=== PATIENT | male | born 1945 | race Caucasian/White ===

== ENCOUNTER 2016-10-18 15:52 | Inpatient (IN) | payer OTHER, MEDICARE ==
[~2016-10-18] VITALS: Ht 175.3 cm; Wt 80.3 kg
[~2016-10-18 15:52] MED LIST: ACEPHEN325 MG PR; ARGINAID; ARTIFICIAL TEAR15 M2 OP; AUGMENTIN 875875 MG PO; BISAC-EVAC10 MG PR; CHILDREN'S ASPI81 M1 PO; CIPRO 500MG TA500 MG PO; CLONAZEPAM0.5 MG PO; CRESTOR20 MG PO; DULERA1 ARO INH; FISH OIL500 MG PO; FLEET ENEMA 131 UNIT RC; FLUTICASON0.05 MG/Ac NASB; IPRATROPIUM BRO NEB; KLONOPIN0.5 MG PO; LASIX20 MG PO; LIORESAL 10MG T10 MG PO; LOPRESSOR 25MG25 MG PO; MAPAP325 MG PO; MELATONIN5 M1 PO; METFORMIN HCL500 MG PO; METFORMIN1000 MG PO; MILK OF MAGNESI30 ML PO; MULTIVITAMIN1 TAB PO; NORVASC 5MG TAB5 MG PO; NOVOLOG100 U/ML SC; OMEPRAZOLE40 MG PO; PERCOCET 325 MG1 TA3 PO; PPD ID; PRILOSEC 20MG C20 MG PO; PRO-STAT 101 3030 M1 PO; Q-TUSSIN100 MG/5 M PO; ROCEPHIN2000 MG IV; SANTYL250 U/GM TOP; SENNA CON/DOCUS1 TAB PO; VANCOMYCIN HC1000 MG IV; VITAMIN B121000 MC2 PO; XANAX0.5 MG PO; ZOFRAN 4 MG TABL4 MG PO; [UNRECOGNIZED DRUG - OTHER] TOP
--- NOTE | 2016-10-18 16:10 | NUR ---
PT IS ALERT AND ORIENTED
--- NOTE | 2016-10-18 16:10 | NUR ---
PT BIBA FROM [place] FOR LOW GRADE FEVERS, CHILLS, NAUSEA WITH DRY HEAVING FOR 3-4 DAYS. PT STATES HE FEELS FINE NOW, STATES HE HAS NO SENSATION BELOW HIS CHEST DUE TO A SPINAL STROKE 3 YEATS PRIOR S/P AAA REPAIR. PT HAS AN INDWELLING CATHERTER THAT HAS HAD INFECTIONS IN THE PAST. PT HAS A NON HEALING 4 WEEK OLD SACRAL ULCER THAT HAS BEEN INFECTED WITH MRSA
[2016-10-18 16:40] LABS: ABSOLUTE BASOPHIL COUNT 0 /CUMM (0.0-0.2); ABSOLUTE EOSINOPHIL COUNT 0 /CUMM (0.0-0.7); ABSOLUTE GRANULOCYTE CT 17.3 /CUMM (1.4-6.5); ABSOLUTE LYMPH COUNT 0.9 /CUMM (1.2-3.4); ABSOLUTE MONOCYTE COUNT 1.7 /CUMM (0.10-0.60); BASOPHIL % 0.2 % (0.0-2.0); EOSINOPHIL % 0.2 % (0-5); GRANULOCYTE % 86.4 % (42.2-75.2); HEMATOCRIT 30.4 % (42-52); MEAN CORPUSCULAR HGB 27.8 PG (27.0-31.0); MEAN CORPUSCULAR HGB CONC 32.3 G/DL (33.0-37.0); MEAN PLATELET VOLUME 7.1 FL (7.4-10.4); PLATELET COUNT 533 /CUMM (130-400); RBC DISTRIBUTION WIDTH 17.4 % (11.5-14.5); RED BLOOD CELL CT 3.54 /CUMM (4.70-6.10)
--- NOTE | 2016-10-18 16:42 | ED GENERAL ADULT ---
History of Present Illness General Chief Complaint: General Adult Stated Complaint: CHILLS, FEVERS Source: patient Exam Limitations: no limitations Vital Signs & Intake/Output Vital Signs & Intake/Output Vital Signs Date Time Temp Pulse Resp B/P Pulse O2 O2 Flow FiO2 Ox Delivery Rate 10/18 1849 91 Nasal 2.0L Cannula 10/18 1844 99.5 109 18 135/69 92 Nasal 2.0L Cannula 10/18 1607 97.8 90 18 118/78 98 Room Air Room Air Allergies Coded Allergies: NO KNOWN ALLERGIES (10/18/16) Reconcile Medications Acetaminophen (Acephen) 650 MG SUPP.RECT 1 SUPP OR Q4H PRN PAIN/TEMP>/100 ( Reported) Acetaminophen 325 MG CAPSULE 2 CAP PO Q4H PRN PAIN/TEMP>/100 (Reported) Alprazolam 0.5 MG TABLET 1 TAB PO Q8H PRN ANXIETY (Reported) Aspirin (Children's Aspirin) 81 MG TAB.CHEW 1 TAB PO DAILY HEART HEALTH ( Reported) Baclofen (Lioresal) 10 MG TABLET 1 TAB PO QAM MUSCLE RELAXER (Reported) Bisacodyl 10 MG SUPP.RECT 1 SUP RC PRN CONSTIPATION (Reported) Calcium Carbonate (Calcium) 500 MG CALCIUM (1,250 MG) TAB.CHEW 2 TAB PO Q8H PRN GI DISCOMFORT (Reported) Clonazepam (Klonopin) 0.5 MG TABLET 1 TAB PO QPM SLEEP (Reported) Cyanocobalamin (Vitamin B12) 1,000 MCG TAB 1 TAB PO QAM SUPPLEMENT (Reported) Dextran 70/Hypromellose (Artificial Tears) 1 EACH DROPERETTE 1 DROP OP TID PRN BOTH EYES (Reported) Fluticasone Propionate (Flonase Allergy Relief) 50 MCG/ACTUATION SPRAY.SUSP 2 SPRAY NASB DAILY PRN NASAL CONGESTION (Reported) Furosemide (Lasix) 20 MG TABLET 1 TAB PO EOD DIURETIC (Reported) Guaifenesin (Q-Tussin) 100 MG/5 ML LIQUID 10 ML PO Q4H PRN COUGH (Reported) Insulin Aspart, Recombinant (Novolog) 100 U/ML DARRON 0 UNITS SC AD GLUCOSE CONTROL (Reported) BLOOD SUGAR # OF UNITS < 80 NONE 80-150 NONE 151-200 4 UNITS 201-250 6 UNITS 251-300 8 UNITS 301-350 10 UNITS 351-400 12 UNITS >400 14 UNITS and call Magnesium Hydroxide (Milk Of Magnesia) 400 MG/5 ML ORAL.SUSP 30 ML PO DAILY PRN CONSTIPATION (Reported) Melatonin 5 MG TAB.SUBL 1 TAB PO QHS SLEEP (Reported) METFORMIN HCL (Metformin) 1,000 MG TABLET 1 TAB PO BID DIABETES (Reported) Metoprolol Tartrate (Lopressor) 25 MG TABLET 1 TAB PO BID BP/HEART (Reported) MOMETASONE/FORMOTEROL (Dulera 100 Mcg/5 Mcg Inhaler) 100 MCG-5 MCG/ACTUATION HFA.AER.AD 2 PUF INH BID UNKNOWN (Reported) Multivitamin (Multiple Vitamins) 1 EACH TABLET 1 TAB PO QAM SUPPLEMENT ( Reported) Na Phos,M-B/Na Phos,Di-Ba (Fleet Enema) 19 GRAM-7 GRAM/118 ML ENEMA 1 E RC DAILY PRN CONSTIPATION (Reported) [place]-3 Fatty Acids ([place]-3) 1,000 MG CAPSULE 1 CAP PO DAILY SUPPLEMENT ( Reported) Omeprazole 20 MG TABLET.DR 1 TAB PO DAILY GI (Reported) OXYCODONE HCL/ACETAMINOPHEN (Percocet 7.5-325 MG Tablet) 325 MG/7.5 MG TAB 1 TAB PO Q6H PAIN (Reported) Potassium Chloride 20 MEQ TAB.ER.PRT 1 TAB PO DAILY SUPPLEMENT (Reported) Protein Supplement (Promod) 946 ML LIQUID 30 ML PO DAILY SUPPLEMENT (Reported ) Psyllium Husk (Metamucil) 3.4 GRAM/5.4 GRAM POWDER 3.4 GM PO DAILY GI ( Reported) Rosuvastatin Calcium (Crestor) 20 MG TABLET 1 TAB PO DAILY CHOLESTEROL ( Reported) Saccharomyces Boulardii (Florastor) (Unknown Strength) CAPSULE 1 CAP PO DAILY SUPPLEMENT (Reported) Triage Note: PT BIBA FROM [place] FOR LOW GRADE FEVERS, CHILLS, NAUSEA WITH DRY HEAVING FOR 3-4 DAYS. PT STATES HE FEELS FINE NOW, STATES HE HAS NO SENSATION BELOW HIS CHEST DUE TO A SPINAL STROKE 3 YEATS PRIOR S/P AAA REPAIR. PT HAS AN INDWELLING CATHERTER THAT HAS HAD INFECTIONS IN THE PAST. PT HAS A NON HEALING 4 WEEK OLD SACRAL ULCER THAT HAS BEEN INFECTED WITH MRSA Triage Nurses Notes Reviewed? yes Onset: Abrupt Duration: day(s):, constant, continues in ED Timing: recent history Injury Environment: home No Modifying Factors: none HPI: 71-year-old male comes into emergency room for evaluation of decubitus ulcer wound. 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 Patient has a indwelling Boston catheter. Denies any fever chills vomiting. Patient had an outpatient MRI of lower back. Patient was sent in for further evaluation. (JACQUELYN CHRISTIANSON) Past History Travel History Traveled to [place] past 21 day No Medical History Any Pertinent Medical History? see below for history Neurological: PARAPLEGIA Cardiovascular: CAD, hypertension, hyperlipidemia, ABDOMINAL ANEURYSM Respiratory: asthma Gastrointestinal: GERD Renal: neurogenic bladder, UTI Psychiatric: anxiety, depression Endocrine: DIABETES TYPE 2 Cancer(s): prostate cancer History of MRSA: Yes Active MRSA Infection: Yes History of VRE: No History of CDIFF: No Isolation History: Contact Pneumonia Vaccine: 08/07/13 Influenza Vaccine: 08/06/13 Surgical History Surgical History: non-contributory Psychosocial History Who do you live with Paid Attentent Services at Home Nursing What is your primary language Bengali Tobacco Use: Never used ETOH Use: denies use Illicit Drug Use: denies illicit drug use Family History Family History, If Any: MOTHER FH: coronary artery disease FH: diabetes mellitus BROTHER FH: diabetes mellitus SISTER Hx Contributory? No (JACQUELYN CHRISTIANSON) Review of Systems Review of Systems Constitutional: Reports: no symptoms. EENTM: Reports: no symptoms. Respiratory: Reports: no symptoms. Cardiovascular: Reports: no symptoms. GI: Reports: no symptoms. Genitourinary: Reports: no symptoms. Musculoskeletal: Reports: no symptoms. Skin: Reports: see HPI. Neurological/Psychological: Reports: no symptoms. Hematologic/Endocrine: Reports: no symptoms. Immunologic/Allergic: Reports: no symptoms. All Other Systems: Reviewed and Negative (JACQUELYN CHRISTIANSON) Physical Exam Physical Exam General Appearance: alert, awake Head: atraumatic Eyes: Bilateral: normal appearance. Ears, Nose, Throat: normal pharynx, normal ENT inspection Neck: normal inspection Respiratory: normal breath sounds, no respiratory distress Cardiovascular: regular rate/rhythm Back: LARGE DECUBITUS ULCERS, FOUL-SMELLING DISCHARGE, SURROUNDING ERYTHEMA AND WARMTH, Extremities: normal inspection Neurologic/Psych: awake, alert, oriented x 3, normal gait, normal mood/affect Skin: intact, normal color Core Measures ACS in differential dx? No CVA/TIA Diagnosis: No Severe Sepsis Present: No Septic Shock Present: No (JACQUELYN CHRISTIANSON) Progress Differential Diagnoses I considered the following diagnoses in my evaluation of the patient: Osteomyelitis, cellulitis, sepsis, UTI, pneumonia, Plan of Care: Orders Procedure Date/time Status Nothing by Mouth 10/19 B Active CBC WITHOUT DIFFERENTIAL 10/19 06 Active BASIC ELECTROLYTES PLUS BUN&CR 10/19 06 Active Heart Healthy Diet 10/18 D Complete Lab Add-on Test 10/18 2021 Active Pathway - chart 10/18 2017 Active House Staff 10/18 2017 Active Patient Data 10/18 2017 Active Code Status 10/18 2017 Active Patient Data 10/18 195 Active Admit to inpatient 10/18 193 Active EKG 10/18 174 Active BLOOD CULTURE 10/18 174 Active CULTURE,URINE 10/18 161 Active URINALYSIS 10/18 1616 Complete WESTERGREN SED RATE 10/18 161 Complete C-REACTIVE PROTEIN 10/18 161 Complete COMPREHENSIVE METABOLIC PANEL 10/18 161 Complete CBC WITHOUT DIFFERENTIAL 10/18 161 Complete VTE Mechanical Prophylaxis 10/18 UNK Active Current Medications Sig/Mey Start time Last Medication Dose Stop Time Status Admin Aspirin 81 MG DAILY 10/19 1000 UNVr (Aspirin) Enoxaparin Sodium 40 MG DAILY 10/19 1000 UNVr (Lovenox) Vancomycin HCl 1,000 MG DAILY 10/19 1000 UNir Sodium Chloride 250 ML (Normal Saline 0.9%) Ceftazidime 1,000 MG IQ8 10/19 0000 UNVr (Fortaz) Clonazepam 0.5 MG QPM 10/18 2200 UNVr (KlonoPIN) 10/25 2158 Metoprolol Tartrate 25 MG BID 10/18 2200 UNVr (Lopressor) Alprazolam 0.5 MG TID PRN 10/18 2030 UNVr (Xanax) 10/25 2028 Atorvastatin Calcium 80 MG 1700 10/18 2030 UNVr (Lipitor) Fluticasone 2 SPRAY DAILY PRN 10/18 2030 UNVr Propionate (Flonase) Furosemide 20 MG .[EOD] 10/18 2030 UNVr (Lasix) Guaifenesin 10 ML Q4H PRN 10/18 2030 UNVr (Robitussin) Magnesium Hydroxide 30 ML DAILY PRN 10/18 2030 UNVr (Milk Of Magnesia) Melatonin 5 MG .[QHS] 10/18 2030 UNVr (Melatonin) Sodium Chloride 1,000 ML Q13H 10/18 2030 UNVr (Normal Saline 0.9%) Acetaminophen 650 MG Q6 PRN 10/18 2015 UNVr (Tylenol) Acetaminophen 1,000 MG Q8 PRN 10/18 2015 UNVr (Ofirmev) Oxycodone HCl 5 MG Q6H PRN 10/18 2015 UNVr (Roxicodone) Laboratory Tests 10/18/16 1635: Urine Color STRAW, Urine Clarity TURBD H, Urine pH 6.0, Ur Specific Norris 1.025, Urine Protein 100 H, Urine Ketones NEG, Urine Nitrite POS H, Urine Bilirubin NEG, Urine Urobilinogen 0.2, Ur Leukocyte Esterase LARGE H, Ur Microscopic SEDIMENT EXAMINED, Urine WBC PACKD H, Granular Casts MANY H, Urine Hemoglobin MOD H, Urine Glucose NEG 10/18/16 1630: Anion Gap 13, Estimated GFR > 60, BUN/Creatinine Ratio 35.7 H, Glucose 108 H, Calcium 9.4, Total Bilirubin 0.4, AST 15 L, ALT 17 L, Alkaline Phosphatase 105 , C-Reactive Prot, Quant > 9.0 H, Total Protein 7.8, Albumin 3.5, Globulin 4.3 H, Albumin/Globulin Ratio 0.8 L, CBC w Diff MAN DIFF ORDERED, RBC 3.54 L, MCV 86.0, MCH 27.8, RDW 17.4 H, MPV 7.1 L, Gran % 86.4 H, Lymphocytes % 4.4 L, Monocytes % 8.8, Eosinophils % 0.2, Basophils % 0.2, Absolute Granulocytes 17.3 H, Absolute Lymphocytes 0.9 L, Absolute Monocytes 1.7 H, Absolute Eosinophils 0, Absolute Basophils 0, Platelet Estimate INCREASED, Anisocytosis 1+, PUBS MCHC 32.3 L, ESR Westergren 121 H Microbiology 10/18 1906 BLOOD: Blood Culture - RECD 10/18 1902 BLOOD: Blood Culture - RECD 10/18 1635 URINE ROUT: Urine Culture - RECD Initial ED EKG: normal intervals, normal p-waves, normal sinus rhythm, rate (99) (JUVENTINO WATSON,JACQUELYN) Departure Departure Disposition: STILL A PATIENT Condition: Stable Clinical Impression Primary Impression: Osteomyelitis Referrals: SLIM COLE MD (PCP/Family) Referred to [facility] as new patient No Departure Forms: Customer Survey General Discharge Information Admission Note Spoke With: SLIM COLE MD Documentation of Exam: Documentation of any treatments & extenuating circumstances including Concerns Regarding Discharge (functional status, medication knowledge or non-compliance, living conditions, etc.) that warrant an admission rather than observation: Patient will require IV antibiotics. Patient will require surgical debridement. Wound care consultation. Repeat blood work. High risk. Patient would do poorly as an outpatient. (JACQUELYN CHRISTIANSON) PA/HEEL MOLDER Co-Sign Statement Statement: ED Attending supervision documentation- [x] I saw and evaluated the patient. I have also reviewed all the pertinent lab results and diagnostic results. I agree with the findings and the plan of care as documented in the PA's/HEEL MOLDER's documentation. [] I have reviewed the ED Record and agree with the PA's/HEEL MOLDER's documentation. [] Additions or exceptions (if any) to the PAs/HEEL MOLDER's note and plan are summarized below: [] (BARB GURROLA DO) Critical Care Note Critical Care Note Critical Care Time: non-applicable (JACQUELYN CHRISTIANSON)
--- NOTE | 2016-10-18 16:47 | NUR ---
LABS DRAWN AND SENT BY THIS [facility] BLUE, SST, LAV X2, PINK, BUCK
--- NOTE | 2016-10-18 16:47 | NUR ---
URINE TRIO SENT BY THIS [facility]
[2016-10-18] MEDS ORDERED: PROMOD946 ML PO (17:07)
[2016-10-18] MEDS ORDERED: OMEPRAZOLE20 M3 PO (17:07)
[2016-10-18] MEDS ORDERED: OMEGA-31000 M1 PO (17:10)
--- NOTE | 2016-10-18 17:10 | NUR ---
PT RESTING IN ROOM OFFERS NO COMPLAINTS
[2016-10-18] MEDS ORDERED: FLORASTOR250 M1 PO (17:11)
[2016-10-18] MEDS ORDERED: POTASSIUM CHLO20 ME2 PO (17:12)
[2016-10-18] MEDS ORDERED: METAMUCIL660 GM PO (17:13)
[2016-10-18] MEDS ORDERED: ARTIFICIAL TEA1 EACH OP (17:14)
[2016-10-18] MEDS ORDERED: FLONASE ALLERG9.9 ML NASB (17:15)
[2016-10-18] MEDS ORDERED: ACEPHEN650 M1 PR (17:16)
[2016-10-18] MEDS ORDERED: ACETAMINOPHEN325 M3 PO (17:18)
[2016-10-18] MEDS ORDERED: FLEET ENEMA133 ML RC (17:20)
[2016-10-18] MEDS ORDERED: BISACODYL10 M1 RC (17:21)
[2016-10-18] MEDS ORDERED: MILK OF MA400 MG/52 PO (17:22)
[2016-10-18] MEDS ORDERED: CALCIUM500 M2 PO (17:23)
[2016-10-18] MEDS ORDERED: Q-TUSSIN100 MG/51 PO (17:24)
[2016-10-18] MEDS ORDERED: ALPRAZOLAM0.5 M4 PO (17:24)
--- NOTE | 2016-10-18 18:03 | NUR ---
PT INCONTINENT OF STOOL LARGE DECUBITUS ULCER NOTED TO BUTTOCKS THAT MEASURES 9CM BY 10CM BY 1CM DEEP WET TO DRY DSG APPLIED TO WOUND PT HAD NO DSG ON WOUND WITH BRIEF CHANGE
--- NOTE | 2016-10-18 18:20 | NUR ---
WOUND BED BROWN IN COLOR
--- NOTE | 2016-10-18 19:08 | NUR ---
BOTH SETS OF CULTURES DRAWN AND SENT BY THIS [facility]
--- NOTE | 2016-10-18 19:26 | NUR ---
ASSUMED CARE OF PT PER ERWIN SALOMON, PT RESTING IN RM WITH FAMILY AT BEDSIDE, WILL CONTINUE TO MONITOR.
--- NOTE | 2016-10-18 20:16 | History & Physical ---
See Addendum CANDI VELAZQUEZ MD 10/18/16 2015: General Information and HPI MD Statement: I have seen and personally examined YOLANDA SUMMERS and documented this H&P. The patient is a 71 year old M who presented with a patient stated chief complaint of [fever, chills, and worsening of the ulcer in the back]. Source of Information: patient History of Present Illness: Patient is a 71-year-old male from [facility] and [facility] due to fever and chills and worsening of a decubitus ulcer. He has a history of sacral decubitus with MRSA osteomyelitis in 2014. Patient also has sensory and motor deficits from below his chest (T7-T8 dermatomes) which is present since 2013 (after an AAA repair and bleeding that led to spinal shock) and he is bedridden since then, therefore does not feel the ulcer, also has been paraplegic and has urinary and bowel incontinence. Patient had an MRI done on Oct 09 that showed large decubitus ulcer extending to the coccyx with marrow edema and possible osteomyelitis. Based on records from [facility] patient also has had recent pneumonia and UTIs. He has chronic indwelling catheter due to incontinence. Patient reports fever and chills, night sweats, does not report any coughing or shortness of breath. Also denies chest pain, palpitations, diaphoresis. Allergies/Medications Allergies: Coded Allergies: NO KNOWN ALLERGIES (10/18/16) Home Med list Acetaminophen (Acephen) 650 MG SUPP.RECT 1 SUPP WA Q4H PRN PAIN/TEMP>/100 ( Reported) Acetaminophen 325 MG CAPSULE 2 CAP PO Q4H PRN PAIN/TEMP>/100 (Reported) Alprazolam 0.5 MG TABLET 1 TAB PO Q8H PRN ANXIETY (Reported) Aspirin (Children's Aspirin) 81 MG TAB.CHEW 1 TAB PO DAILY HEART HEALTH ( Reported) Baclofen (Lioresal) 10 MG TABLET 1 TAB PO QAM MUSCLE RELAXER (Reported) Bisacodyl 10 MG SUPP.RECT 1 SUP RC PRN CONSTIPATION (Reported) Calcium Carbonate (Calcium) 500 MG CALCIUM (1,250 MG) TAB.CHEW 2 TAB PO Q8H PRN GI DISCOMFORT (Reported) Clonazepam (Klonopin) 0.5 MG TABLET 1 TAB PO QPM SLEEP (Reported) Cyanocobalamin (Vitamin B12) 1,000 MCG TAB 1 TAB PO QAM SUPPLEMENT (Reported) Dextran 70/Hypromellose (Artificial Tears) 1 EACH DROPERETTE 1 DROP OP TID PRN BOTH EYES (Reported) Fluticasone Propionate (Flonase Allergy Relief) 50 MCG/ACTUATION SPRAY.SUSP 2 SPRAY NASB DAILY PRN NASAL CONGESTION (Reported) Furosemide (Lasix) 20 MG TABLET 1 TAB PO EOD DIURETIC (Reported) Guaifenesin (Q-Tussin) 100 MG/5 ML LIQUID 10 ML PO Q4H PRN COUGH (Reported) Insulin Aspart, Recombinant (Novolog) 100 U/ML DARRON 0 UNITS SC AD GLUCOSE CONTROL (Reported) BLOOD SUGAR # OF UNITS < 80 NONE 80-150 NONE 151-200 4 UNITS 201-250 6 UNITS 251-300 8 UNITS 301-350 10 UNITS 351-400 12 UNITS >400 14 UNITS and call Magnesium Hydroxide (Milk Of Magnesia) 400 MG/5 ML ORAL.SUSP 30 ML PO DAILY PRN CONSTIPATION (Reported) Melatonin 5 MG TAB.SUBL 1 TAB PO QHS SLEEP (Reported) METFORMIN HCL (Metformin) 1,000 MG TABLET 1 TAB PO BID DIABETES (Reported) Metoprolol Tartrate (Lopressor) 25 MG TABLET 1 TAB PO BID BP/HEART (Reported) MOMETASONE/FORMOTEROL (Dulera 100 Mcg/5 Mcg Inhaler) 100 MCG-5 MCG/ACTUATION HFA.AER.AD 2 PUF INH BID UNKNOWN (Reported) Multivitamin (Multiple Vitamins) 1 EACH TABLET 1 TAB PO QAM SUPPLEMENT ( Reported) Na Phos,M-B/Na Phos,Di-Ba (Fleet Enema) 19 GRAM-7 GRAM/118 ML ENEMA 1 E RC DAILY PRN CONSTIPATION (Reported) [place]-3 Fatty Acids ([place]-3) 1,000 MG CAPSULE 1 CAP PO DAILY SUPPLEMENT ( Reported) Omeprazole 20 MG TABLET.DR 1 TAB PO DAILY GI (Reported) OXYCODONE HCL/ACETAMINOPHEN (Percocet 7.5-325 MG Tablet) 325 MG/7.5 MG TAB 1 TAB PO Q6H PAIN (Reported) Potassium Chloride 20 MEQ TAB.ER.PRT 1 TAB PO DAILY SUPPLEMENT (Reported) Protein Supplement (Promod) 946 ML LIQUID 30 ML PO DAILY SUPPLEMENT (Reported ) Psyllium Husk (Metamucil) 3.4 GRAM/5.4 GRAM POWDER 3.4 GM PO DAILY GI ( Reported) Rosuvastatin Calcium (Crestor) 20 MG TABLET 1 TAB PO DAILY CHOLESTEROL ( Reported) Saccharomyces Boulardii (Florastor) (Unknown Strength) CAPSULE 1 CAP PO DAILY SUPPLEMENT (Reported) Past History Travel History Traveled to [place] past 21 day No Medical History Neurological: PARAPLEGIA Cardiovascular: CAD, hypertension, hyperlipidemia, ABDOMINAL ANEURYSM Respiratory: asthma Gastrointestinal: GERD Renal: neurogenic bladder, UTI Psychiatric: anxiety, depression Endocrine: DIABETES TYPE 2 Cancer(s): prostate cancer History of MRSA: Yes Active MRSA Infection: Yes History of VRE: No History of CDIFF: No Isolation History: Contact Pneumonia Vaccine: 08/07/13 Influenza Vaccine: 08/06/13 Surgical History Surgical History: AAA repair x2 once 2002, and 2013 Past Family/Social History Family History Relations & Conditions if any MOTHER FH: coronary artery disease FH: diabetes mellitus BROTHER FH: diabetes mellitus SISTER Psychosocial History Where do you live? Long-Term Facility Services at Home: Nursing Primary Language: Scottish ETOH Use: denies use Illicit Drug Use: denies illicit drug use Functional Ability ADLs Independent: eating. Needs Assist: dressing, toileting, bathing. Ambulation: non-ambulatory IADLs Needs Assist: shopping, housework, finances, food prep, telephone, transportation, medication admin. Review of Systems Review of Systems Constitutional: Reports: chills, diaphoresis (sweating mostly at nights), fever. EENTM: Denies: visual changes, hearing changes. Cardiovascular: Denies: chest pain, edema, orthopena, palpitations. Respiratory: Denies: cough, short of breath, sputum production, wheezing. GI: Reports: bowel incontinence, nausea (does not know how the stool is). Denies: abdominal pain (no sensation below chest), distention, vomiting. Musculoskeletal: Reports: back pain. Skin: Reports: lesions (no feeling in the back). Neurological/Psychological: Reports: numbness, paresthesia, pre-existing deficit, unable to move lower ext. Denies: anxiety, headache, tingling, tremors. Hematologic/Endocrine: Denies: bruising, bleeding. Exam & Diagnostic Data Last 24 Hrs of Vital Signs/I&O Vital Signs Date Time Temp Pulse Resp B/P Pulse O2 O2 Flow FiO2 Ox Delivery Rate 10/18 2114 99.0 10/18 2114 99.0 10/18 2039 100.1 109 20 125/60 94 Nasal 2.0L Cannula 10/18 2038 100.1 10/18 1849 91 Nasal 2.0L Cannula 10/18 1844 99.5 109 18 135/69 92 Nasal 2.0L Cannula 10/18 1607 97.8 90 18 118/78 98 Room Air Room Air Physical Exam General Appearance Alert, Oriented X3, Cooperative, No Acute Distress Skin there is a large 10x10 cm in the lower lumbar area and coccyx, stage 4 ( extending into the bone), there is foul smelling discharge from the ulcer and there is necrotic tissue in the edges and inside the wound. HEENT Atraumatic, PERRLA, EOMI, Mucous Membr. moist/pink Neck Supple, No JVD Cardiovascular Regular Rate, Normal S1, Normal S2, No Murmurs Lungs Clear to Auscultation, Normal Air Movement Abdomen No Masses, decreased bowel sounds, No sensation from below the chest wall Neurological Normal Speech, Cranial Nerves 3-12 NL, forces 0/5 in bilateral LE, 5/5 forces on both upper extremities, sensory deficit from below the chest wall (T8-T9 level) Extremities No Clubbing, No Cyanosis, Normal Pulses, 1+ pitting edema on the right lower extremity Vascular Normal Pulses, Pulses Symmetrical Last 24 Hrs of Labs/Perfecto: Laboratory Tests 10/18/16 1635: Urine Color STRAW, Urine Clarity TURBD H, Urine pH 6.0, Ur Specific [place] 1.025, Urine Protein 100 H, Urine Ketones NEG, Urine Nitrite POS H, Urine Bilirubin NEG, Urine Urobilinogen 0.2, Ur Leukocyte Esterase LARGE H, Ur Microscopic SEDIMENT EXAMINED, Urine WBC PACKD H, Granular Casts MANY H, Urine Hemoglobin MOD H, Urine Glucose NEG 10/18/16 1630: Anion Gap 13, Estimated GFR > 60, BUN/Creatinine Ratio 35.7 H, Glucose 108 H, Lactic Acid 2.7 H, Calcium 9.4, Total Bilirubin 0.4, AST 15 L, ALT 17 L, Alkaline Phosphatase 105, C-Reactive Prot, Quant > 9.0 H, Total Protein 7.8, Albumin 3.5, Globulin 4.3 H, Albumin/Globulin Ratio 0.8 L, CBC w Diff MAN DIFF ORDERED, RBC 3.54 L, MCV 86.0, MCH 27.8, RDW 17.4 H, MPV 7.1 L, Gran % 86.4 H, Lymphocytes % 4.4 L, Monocytes % 8.8, Eosinophils % 0.2, Basophils % 0.2, Absolute Granulocytes 17.3 H, Absolute Lymphocytes 0.9 L, Absolute Monocytes 1.7 H, Absolute Eosinophils 0, Absolute Basophils 0, Platelet Estimate INCREASED, Anisocytosis 1+, PUBS MCHC 32.3 L, ESR [place] 121 H Microbiology 10/18 1906 BLOOD: Blood Culture - RECD 10/18 1902 BLOOD: Blood Culture - RECD 10/18 163 URINE ROUT: Urine Culture - RECD Assessment/Plan Assessment: Patient is a 71-year-old male with past medical history of History of coronary artery disease status post CABG, hypertension, hyperlipidemia, diabetes mellitus , abdominal AAA s/p repair leading to spinal shock, previous admission for urosepsis vs. possible sacral decubitus osteomyelitis, Paraplegia and sacral decubitus ulcers status post debridement, neurogenic bladder, Prostate cancer. Patient was in brought into [facility] due to nonhealing deep sacral and coccygeal decubitus ulcer with MRI findings suggestive of osteomyelitis. Patient also reported fever and chills. 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 Patient reports ulcer has been worsening since 4 weeks ago, he had been following with his PCP, Dr. Liu. MRI done on Oct 09 that showed large decubitus ulcer extending to the coccyx with marrow edema and enhancement, and possible osteomyelitis. * Follow-up Surgical consult, Dr. Nunez made aware * Obtain ID consult in a.m. * Obtain wound consult in a.m. History of recurrent UTIs with chronic indwelling Boston catheter UA: Urine is turbid, high in protein, positive nitrite, large leukocyte esterase , packed with WBCs, many granular casts, moderate amount of urine hemoglobin * Urine culture * Obtain ID consult in a.m. * Consider ultrasound of the kidneys History of hypertension * Continue amlodipine History of hyperlipidemia * Continue statin History of CAD * Continue aspirin History of diabetes * NovoLog sliding scale according to Accu-Cheks History of GERD * Prilosec DVT prophylaxis: Subcutaneous heparin Regular Diet, NPO past midnight for possible debridement in AM DNR/DNI As Ranked By This Provider Problem List: 1. Paraplegia 2. Chronic indwelling Boston catheter 3. Decubitus ulcer 4. Leukocytosis 5. Fever 6. Diabetes 7. Hypertension 8. Hyperlipidemia 9. CAD (coronary artery disease) 10. Abdominal aortic aneurysm Core Measures/Miscellaneous Acute Coronary Syndrome ACS Diagnosis: No Cerebrovascular Accident CVA/TIA Diagnosis: No Congestive Heart Failure CHF Diagnosis: No Venous Thromboembolism VTE Risk Factors: Acute medical illness, Age > 40 VTE Prophylaxis Ordered Inpt: Pharm- Lovenox No Mech VTE prophylaxis d/t: No contraindications No VTE Pharm Prophylaxis d/t: No contraindications VTE Diagnosis: No VTE Type: NONE VTE Confirmed by (Test): NONE Severe Sepsis Severe Sepsis Present: No Septic Shock Septic Shock Present: No Miscellaneous Documentation Attending Case Discussed With: SLIM LIU MD Primary Care Physician: SLIM LIU MD Patient sees these Specialists Dr. White (surgery) Dr. Guzman (wound care) Dr. Harris Level of Patient Care: General Medicine DAMON WAGONER 10/18/16 2212: Resident Review Statement Resident Statement: examined this patient, discussed with winter intern, agreed with winter intern Other Findings: Patient is a 71-year-old gentleman, resident of [facility], paraplegic following spinal shock/Infarct after surgery for repair of an abdominal aortic aneurysm ( 2012), has a history of sacral decubitus MRSA osteomyelitis(2014), history of diabetes,history of hypertension, hyperlipidemia,coronary artery disease,history of anxiety and depression, prostate cancer, recently being treated for pneumonia and urinary tract infection in the long-term facility presented to the ER with chief complaints of worsening sacral wound/ulcer. Patient mentioned he is being bedbound most of the time since 2012,has no sensations below the thoracic region, has a chronic indwelling Boston catheter. He mentioned that he has a history of decubitus sacral ulcer but for the last 4 weeks ulcer/wound has been getting worse. Also reports fever and chills with sweating at night. Reported dry heaving with nausea most of the time, appetite remains low. Patient had pelvic MRI done on October 09 that showed possibility of underlying bone infection/osteomyelitis and was sent to the ER for further assessment. The paperwork from [facility] showed that patient was recently treated for pneumonia and urinary tract infection at the facility. Vitals on admission :temperature 100.1, pulse 109, respiratory rate 20, blood pressure 125/60 saturation was 92% on 2 L. On examination General Appearance: alert, awake Head: atraumatic Eyes:Bilateral: normal appearance. Ears, Nose, Throat: normal pharynx, normal ENT inspection Neck: normal inspection Respiratory: normal breath sounds, no respiratory distress Cardiovascular: regular rate/rhythm Back:Decubitus ulcer(stage IV) in the sacral region with foul-smelling discharge , with surrounding redness /warmth. Extremities: normal inspection Neurologic/Psych: awake, alert, oriented x 3, normal gait, normal mood/affect Skin: intact, normal color. Pertinent labs: admissionElevated leukocytosis 20,000without any bands, H&H low 9.8/30.4 with elevated PLT 533 sodium 136. Urinalysis showed large leukocyte esterase MRI of the pelvis done in 10/09/2016: Large decubitus ulcer which extends to the coccyx. Although T1 fatty marrow signal is preserved, there is marrow edema and enhancement and the ulcer appears to extend to the bone. Therefore, very mild or early osteomyelitis cannot be excluded. Assessment/plan: 1. Sepsis due to stage IV decubitus sacral ulcer: * We'll admit the patient [facility] floor * Pancultures have been sent,patient already received a one-time dose of vancomycin and ceftazidime in the ER,we will continue with the same antibiotics. * Will obtain ID consult and would consult in the morning. * monitor vitals every 4 hours * Tylenol for pain and fever control * Continuous and keep saturations above 92% * Continue with fluids normal saline at the rate of 75-100 mL , watch for any hypotension as patient is septic. * Consider giving patient a bolus of IV fluids if blood pressure drops * Watch for any hemodynamically stable instability. 2. Possible underlying urinary tract infection(Recently treated for urinary tract infection, has a chronic indwelling urinary catheter): * Abnormal urinalysis and will send urine culture. 3.History of diabetes mellitus: * continue with NovoLog sliding scale with Accu-Cheks 4.History of hypertension and lipidemia,With coronary artery disease * continue home medications. 5. History of COPD: * Continue medications. 6. History of anxiety and depression * Continue home medications. 7. Mild to moderate pain controlled with oxycodone and Tylenol 8. DVT prophylaxis with subcutaneous Lovenox 10. Patient is DNR/DNI(paperwork from [facility] mentioned that patient Fu code but on asking from the patient currently he is refusing to be resuscitated)
--- NOTE | 2016-10-18 20:39 | NUR ---
PT MEDICATED WITH IV TYLENOL FOR TEMP 100.1 TYMPANIC. PT MOVED AND CHANGED.
--- NOTE | 2016-10-18 20:47 | NUR ---
HOUSE STAFF IN FOR EVAL
--- NOTE | 2016-10-18 20:59 | NUR ---
PT HAS A BED 218
--- NOTE | 2016-10-18 21:05 | NUR ---
PT MEDICATED WITH 80MG LIPTOR PER EMAR AND NS INFUSING AT 75ML/HR.
--- NOTE | 2016-10-18 21:20 | NUR ---
REPORT GIVEN TO ERWIN TOSCANO.
--- NOTE | 2016-10-18 21:35 | NUR ---
CRITICAL TEST RESULTS [id number] YOLANDA SUMMERS 71 M TESTS AND RESULTS: LACTIC 2.7 Results received and read back by: FRANKLIN LANIER Results received date and time: 10/18/162134 The following provider was notified of the results, and read the results back: DAMON Notified date and time: 10/18/16 at 2131
--- NOTE | 2016-10-18 21:37 | NUR ---
PTS BEDSIDE XRAY COMPLETED
[2016-10-18 22:13] VITALS: BP 124/62
--- NOTE | 2016-10-18 22:50 | RADIOLOGY REPORT ---
EXAMINATION: XR PORTABLE CHEST CLINICAL INFORMATION: Fever, leukocytosis. Recent history of pneumonia. COMPARISON: Chest x-ray 02/15/2015. TECHNIQUE: Portable view of the chest was obtained. FINDINGS: Single AP view of the chest demonstrates pulmonary hypoinflation. Subtle bibasilar patchy opacities are nonspecific and could reflect atelectasis given low lung volumes although superimposed infection cannot be excluded. Cardiomediastinal contours are stable and there is stable prominence of the cardiac silhouette, without overt pulmonary edema. Median sternotomy wires are present. IMPRESSION: Limited exam secondary to patient body habitus and pulmonary hypoinflation. Bibasilar airspace opacities are nonspecific and could reflect atelectasis. Superimposed infection cannot be excluded in the appropriate clinical setting. Stable cardiomegaly without overt pulmonary edema.
--- NOTE | 2016-10-18 23:11 | NUR ---
PT ADMITTED TO 2NB ROOM # [id number] AT ABOUT 2145. VSS. 125/60,65,20,98.9,96% ON 2L O2. PT C/O ARTHRITIC HAND PAIN. APAP RECIEVED. PT A/O X3. HE IS PARALYZED FROM THE CHEST DOWN. THERE IS NO FEELING BELOW CHEST. HE HAS A #22 TO RFA PLACED 10/18/16 AT 2300. HE IS ON CONTACT PRECAUTIONS FOR MRSA. PT ORRIENTED TO ROOM. PT RECIEVED ADMITTING PACKET. SAFETY MAINTAINED. CALL JULIAN WITHIN REACH
[2016-10-18 23:44] VITALS: BP 136/60
--- NOTE | 2016-10-19 05:29 | NUR ---
DSG TO PT'S COCCYX CHANGED DURING BED CHANGE. WOUND CLEANED AND DRESSED WITH ABD PAD. [facility] INTACT. WIDE SPLIT NOTED TO PENIS NEAR CATHETER. WILL CONTINUE TO MONITOR BOTH.
--- NOTE | 2016-10-19 07:16 | Admission Certification ---
Admission Certification Certification Statement - As attending physician, I certify that at the time of - admission, based on clinical presentation, severity of - symptoms, need for further diagnostic testing and - therapeutic interventions, and risk of adverse outcomes - without in-hospital treatment, in my clinical assessment, - this patient requires an acute hospital stay for a minimum - of two nights or longer. I have also considered psychsocial - factors such as support system, advanced age, financial - issues, cognitive issues, and failed out-patient treatments, - past re-admission history, safety of patient, and lack of - compliance as applicable. Specific rationale supporting this admission is: Patient admitted to the hospital as a sepsis septic from an acute large necrotic ulcer in the sacrum as is paraplegic has no sensations possibly osteomyelitis of the sacral bone patient is admitted to the hospital for debridement and IV antibiotics.
--- NOTE | 2016-10-19 07:23 | PN- Att Addend ---
Attending Addendum Attending Brief Note Covering attending admitting note. 71-year-old gentleman is [facility] has history of paraplegia and history of for her decubitus ulcer in the past. This patient also has progressively gotten larger very quickly now patient has got sepsis with fever rigors and the ulcer has progressed a deep into the sacrum suspicious for osteomyelitis. Also been present for about a month the patient been seen in the wound clinic multiple times but apparently also progressively getting worse as he is a paraplegic and has got incontinent of his bladder and bowels. MRI done on October 09 shows large decubitus ulcer extending across 6 with marrow edema possibly osteomyelitis. Past medical history Patient is a paraplegia during postop for repair of abdominal aneurysm repair. History of COPD hypertension dyslipidemia and coronary artery disease recurrent UTI from atonic bladder secondary to paraplegia. On examination patient is awake alert oriented 3 conjunctivae is anicteric neck is supple JVD is not raised S1-S2 is normal Lungs shows expiratory wheezing with diminished breath sound both bases Abdomen is soft nontender bowel sounds are present Neuro exam the patient is bilateral paraplegic the lower extremities. Skin is a large 10 x 10 cm ulcer in the lower lumbar region coccyx stage IV extending into the bone. This foul-smelling discharge from the ulcer with necrotic tissue at the edges Lab shows hemoglobin is 9.6 hematocrit is 30.4 white count is 20.8 Sodium is 136 potassium 4.2 chloride 95 bicarbonate is 29 [place] 25 creatinine 0.7 ESR is 121 Assessment #1 sepsis secondary to decubitus ulcer most likely osteomyelitis the patient on the vancomycin and cefazolin. Infectious disease consult. #2 is get the surgical consult for debridement and a wound consult. Continue the patient IV fluids D5 and half-normal saline 75 mL an hour DVT prophylaxis. History of diabetes continue with sliding scale. History of COPD continue with respiratory care.
[2016-10-19 08:12] LABS: ABSOLUTE BASOPHIL COUNT 0 /CUMM (0.0-0.2); ABSOLUTE EOSINOPHIL COUNT 0.1 /CUMM (0.0-0.7); ABSOLUTE GRANULOCYTE CT 13.8 /CUMM (1.4-6.5); ABSOLUTE MONOCYTE COUNT 1.6 /CUMM (0.10-0.60); BASOPHIL % 0 % (0.0-2.0); EOSINOPHIL % 0.5 % (0-5); HEMATOCRIT 27.6 % (42-52); MEAN CORPUSCULAR HGB 28.1 PG (27.0-31.0); MEAN CORPUSCULAR HGB CONC 32.8 G/DL (33.0-37.0); MEAN CORPUSCULAR VOLUME 85.5 FL (80.0-94.0); MEAN PLATELET VOLUME 7.3 FL (7.4-10.4); RBC DISTRIBUTION WIDTH 17.3 % (11.5-14.5); RED BLOOD CELL CT 3.23 /CUMM (4.70-6.10); WHITE BLOOD CELL COUNT 16.5 /CUMM (4.8-10.8)
[2016-10-19 09:11] LABS: GRANULOCYTE % 83.7 % (42.2-75.2); PLATELET COUNT 435 /CUMM (130-400)
--- NOTE | 2016-10-19 10:03 | PN- Wound Care ---
Subjective Subjective: Patient was admitted because of worsening ulcer of his coccyx. He has been febrile. Sedimentation rate is greater than 100 and MRI done on 0 suggested osteomyelitis of the coccyx. Objective Vital Signs and I&Os Vital Signs Result Date Time B/P 136/60 10/19 0848 Pulse 87 10/19 0848 Pulse Ox 96 10/18 2344 O2 Delivery Nasal Cannula 10/18 2344 O2 Flow Rate 2.0L 10/18 2344 Temp 98.5 10/18 2344 Resp 20 10/18 2344 Intake & Output 10/19 0000 10/18 1600 10/18 0800 Intake Total 300 Output Total 350 Balance -50 Intake, IV 250 Intake, Oral 50 Output, Urine 350 Patient 177 lb Weight Over the coccyx is approximately a 9 x 8 cm ulcer with 100% necrotic slough with foul odor there is a 3 x 1.5 cm stage IV ulcer with these are present on admission. The perirectal ulcer probes several centimeters the. Impression/Plan Impression/Plan Impression/Plan: 71-year-old gentleman paraplegic history of osteopenia in the past has worsening recurrent coccyx and perirectal abscess with probable osteomyelitis. He's been evaluated by Dr. Jung in the past and Dr. Irizarry for the perirectal abscess suggested the probable need for a diverting colostomy. Other sources of fever may be his indwelling Boston catheter and possible pneumonia with abnormal chest x-ray. Dr. Jung has been contacted regarding the need for debridement and bone biopsy. Patient should be placed on a [place] mattress. Interim wound care can be quarter strength Dakin's twice a day to deal with necrotic slough and pending surgical debridement. Would recommend infectious disease consult.
--- NOTE | 2016-10-19 11:26 | PN- Housestaff ---
Subjective Follow-up For: Sepsis due to stage IV decubitus sacral ulcer Subjective: Patient seen and examined at bedside. He is resting comfortably in bed. Alert, awake and oriented x 3. No acute distress. No acute complaints. Denies any respiratory or urinary sxs. No chest pain, palpitations. No n/v/c/d/f/c. Review of Systems Constitutional: Reports: see HPI. Objective Last 24 Hrs of Vital Signs/I&O Vital Signs Date Time Temp Pulse Resp B/P Pulse O2 O2 Flow FiO2 Ox Delivery Rate 10/19 1622 97.9 87 18 134/64 95 Nasal 2.0L Cannula 10/19 1338 97.7 80 18 122/70 94 Room Air 10/19 0848 87 136/60 10/19 0800 Nasal 2.0L Cannula 10/18 2344 98.5 87 20 136/60 96 Nasal 2.0L Cannula 10/18 2304 65 126/64 10/18 2219 95 Nasal 2.0L Cannula 10/18 2213 98.2 92 19 124/62 96 Nasal 2.0L Cannula 10/18 2114 99.0 10/18 2114 99.0 10/18 2039 100.1 109 20 125/60 94 Nasal 2.0L Cannula 10/188 100.1 Intake & Output 10/19 1600 10/19 0800 10/19 0000 Intake Total 1080 620 300 Output Total 600 300 350 Balance 480 320 -50 Intake, IV 600 620 250 Intake, Oral 480 50 Number 2 2 Bowel Movements Output, Urine 600 300 350 Patient 80.286 kg Weight Physical Exam General Appearance: Alert, Oriented X3, Cooperative, No Acute Distress Other Physical Findings: Skin there is a large 10x10 cm in the lower lumbar area and coccyx, stage 4 ( extending into the bone), there is foul smelling discharge from the ulcer and there is necrotic tissue in the edges and inside the wound. HEENT Atraumatic, PERRLA, EOMI, Mucous Membr. moist/pink Neck Supple, No JVD Cardiovascular Regular Rate, Normal S1, Normal S2, No Murmurs Lungs Clear to Auscultation, Normal Air Movement Abdomen No Masses, decreased bowel sounds, No sensation from below the chest wall Neurological Normal Speech, Cranial Nerves 3-12 NL, forces 0/5 in bilateral LE, 5/5 forces on both upper extremities, sensory deficit from below the chest wall (T8-T9 level) Extremities No Clubbing, No Cyanosis, Normal Pulses, 1+ pitting edema on the right lower extremity Vascular Normal Pulses, Pulses Symmetrical Current Medications: Current Medications Sig/Mey Start time Last Medication Dose Route Stop Time Status Admin Acetaminophen 0 .STK-MED ONE 10/18 2032 DC IV Acetaminophen 650 MG Q6P PRN 10/18 2015 AC 10/18 PO 2304 Acetaminophen 1,000 MG Q8P PRN 10/18 2015 AC IV Alprazolam 0.5 MG TID PRN 10/18 2030 AC 10/19 PO 10/25 2028 0006 Aspirin 81 MG DAILY 10/19 1000 AC 10/19 PO 0848 Atorvastatin Calcium 80 MG 1700 10/18 2030 AC 10/19 PO 1610 Budesonide/ 2 PUF BID 10/18 2209 AC 10/19 Formoterol Fumarate INH 0850 Ceftazidime 1,000 MG IQ8 10/19 0000 AC 10/19 IV 1611 Clonazepam 0.5 MG QPM 10/18 2200 AC 10/18 PO 10/25 215 2304 Enoxaparin Sodium 40 MG DAILY 10/19 1000 AC 10/19 SC 0847 Fluticasone 2 SPRAY DAILY PRN 10/18 2030 AC Propionate MARIA ANTONIA Furosemide 20 MG Q48H 10/19 1000 AC 10/19 PO 0848 Guaifenesin 10 ML Q4H PRN 10/18 2030 AC PO Insulin Aspart 0 TIDAC/HS 10/19 0800 AC 10/19 SC 1702 Magnesium Hydroxide 30 ML DAILY PRN 10/18 2030 AC PO Melatonin 5 MG AT BEDTIME 10/18 2200 AC 10/18 PO 2304 Metoprolol Tartrate 25 MG BID 10/18 2200 AC 10/19 PO 0848 Omeprazole 20 MG DAILY AC 10/19 0700 AC 10/19 PO 0612 Oxycodone HCl 5 MG Q6H PRN 10/18 2015 AC 10/19 PO 1413 Potassium Chloride 20 MEQ ONCE ONE 10/19 173 DC PO 10/19 1731 Sodium Chloride 1,000 ML Q13H 10/18 2030 AC 10/19 IV 0849 Sodium Hypochlorite 1 HILARIA BID 10/19 1442 AC 10/19 TOP 1703 Vancomycin HCl 1,000 MG DAILY 10/19 1000 AC 10/19 Sodium Chloride 250 ML IV 0847 Last 24 Hrs of Lab/Perfecto Results Last 24 Hrs of Labs/Mics: Laboratory Tests 10/19/16 0710: Anion Gap 13, Estimated GFR > 60, BUN/Creatinine Ratio 44.0 H, CBC w Diff NO MAN DIFF REQ, RBC 3.23 L, MCV 85.5, MCH 28.1, RDW 17.3 H, MPV 7.3 L, Gran % 83.7 H, Lymphocytes % 5.8 L, Monocytes % 10.0 H, Eosinophils % 0.5, Basophils % 0 L, Absolute Granulocytes 13.8 H, Absolute Lymphocytes 1.0 L, Absolute Monocytes 1.6 H, Absolute Eosinophils 0.1, Absolute Basophils 0, PUBS MCHC 32.8 L Assessment/Plan Assessment: Patient is a 71-year-old male with past medical history of History of coronary artery disease status post CABG, hypertension, hyperlipidemia, diabetes mellitus , abdominal AAA s/p repair leading to spinal shock, previous admission for urosepsis vs. possible sacral decubitus osteomyelitis, Paraplegia and sacral decubitus ulcers status post debridement, neurogenic bladder, Prostate cancer. Patient was in brought into [facility] due to nonhealing deep sacral and coccygeal decubitus ulcer with MRI findings suggestive of osteomyelitis. Patient also reported fever and chills. Sepsis most likely 2/2 decubitus ulcer and UTI Reported fever, maximum temperature 100.1 in the ED, pulse rate of 109, elevated WBC of 20.0, recent MRI of the pelvis suggesting possible osteomyelitis. UA suggestive of UTI and kidney damage. 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 Patient reports ulcer has been worsening since 4 weeks ago, he had been following woth his PCP, Dr. Liu. MRI done on Oct 09 that showed large decubitus ulcer extending to the coccyx with marrow edema and enhancement, and possible osteomyelitis. * Follow surgery recs * Follow ID recs * Follow wound care recs History of recurrent UTIs with chronic indwelling Boston catheter UA: Urine is turbid, high in protein, positive nitrite, large leukocyte esterase , packed with WBCs, many granular casts, moderate amount of urine hemoglobin * Follow rrine culture * Follow ID recs * Consider ultrasound of the kidneys History of hypertension * Continue amlodipine History of hyperlipidemia * Continue statin History of CAD * Continue aspirin History of diabetes * NovoLog sliding scale according to Accu-Cheks History of GERD * Prilosec DVT prophylaxis: Subcutaneous heparin Regular Diet, NPO past midnight for possible debridement in AM DNR/DNI Problem List: 1. Osteomyelitis 2. Decubitus ulcer 3. UTI (lower urinary tract infection) 4. DVT prophylaxis 5. Full code status Pain Ratin Pain Location: 0 Pain Goal: Remain pain free Pain Plan: Mild pain pathway Tomorrow's Labs & Rationales: CBC BEP
--- NOTE | 2016-10-19 12:54 | Cons- Plastic Surgery ---
General Information and HPI Consulting Request Date of Consult: 10/19/16 Requested By: SLIM COLE MD Reason for Consult: buttock wound Source of Information: patient Exam Limitations: no limitations History of Present Illness: Patient with chronic pressure ulcer sacral region secondary to paraplegia from aortic surgery. Patient was seen sometime ago but reported improvement and did not present for follow-up. Now presents with foul-smelling wound reports insensate in the area. No fever chills reported Allergies/Medications Allergies: Coded Allergies: NO KNOWN ALLERGIES (10/18/16) Home Med List: Acetaminophen (Acephen) 650 MG SUPP.RECT 1 SUPP OH Q4H PRN PAIN/TEMP>/100 ( Reported) Acetaminophen 325 MG CAPSULE 2 CAP PO Q4H PRN PAIN/TEMP>/100 (Reported) Alprazolam 0.5 MG TABLET 1 TAB PO Q8H PRN ANXIETY (Reported) Aspirin (Children's Aspirin) 81 MG TAB.CHEW 1 TAB PO DAILY HEART HEALTH ( Reported) Baclofen (Lioresal) 10 MG TABLET 1 TAB PO QAM MUSCLE RELAXER (Reported) Bisacodyl 10 MG SUPP.RECT 1 SUP RC PRN CONSTIPATION (Reported) Calcium Carbonate (Calcium) 500 MG CALCIUM (1,250 MG) TAB.CHEW 2 TAB PO Q8H PRN GI DISCOMFORT (Reported) Clonazepam (Klonopin) 0.5 MG TABLET 1 TAB PO QPM SLEEP (Reported) Cyanocobalamin (Vitamin B12) 1,000 MCG TAB 1 TAB PO QAM SUPPLEMENT (Reported) Dextran 70/Hypromellose (Artificial Tears) 1 EACH DROPERETTE 1 DROP OP TID PRN BOTH EYES (Reported) Fluticasone Propionate (Flonase Allergy Relief) 50 MCG/ACTUATION SPRAY.SUSP 2 SPRAY NASB DAILY PRN NASAL CONGESTION (Reported) Furosemide (Lasix) 20 MG TABLET 1 TAB PO EOD DIURETIC (Reported) Guaifenesin (Q-Tussin) 100 MG/5 ML LIQUID 10 ML PO Q4H PRN COUGH (Reported) Insulin Aspart, Recombinant (Novolog) 100 U/ML DARRON 0 UNITS SC AD GLUCOSE CONTROL (Reported) BLOOD SUGAR # OF UNITS < 80 NONE 80-150 NONE 151-200 4 UNITS 201-250 6 UNITS 251-300 8 UNITS 301-350 10 UNITS 351-400 12 UNITS >400 14 UNITS and call Magnesium Hydroxide (Milk Of Magnesia) 400 MG/5 ML ORAL.SUSP 30 ML PO DAILY PRN CONSTIPATION (Reported) Melatonin 5 MG TAB.SUBL 1 TAB PO QHS SLEEP (Reported) METFORMIN HCL (Metformin) 1,000 MG TABLET 1 TAB PO BID DIABETES (Reported) Metoprolol Tartrate (Lopressor) 25 MG TABLET 1 TAB PO BID BP/HEART (Reported) MOMETASONE/FORMOTEROL (Dulera 100 Mcg/5 Mcg Inhaler) 100 MCG-5 MCG/ACTUATION HFA.AER.AD 2 PUF INH BID UNKNOWN (Reported) Multivitamin (Multiple Vitamins) 1 EACH TABLET 1 TAB PO QAM SUPPLEMENT ( Reported) Na Phos,M-B/Na Phos,Di-Ba (Fleet Enema) 19 GRAM-7 GRAM/118 ML ENEMA 1 E RC DAILY PRN CONSTIPATION (Reported) [place]-3 Fatty Acids ([place]-3) 1,000 MG CAPSULE 1 CAP PO DAILY SUPPLEMENT ( Reported) Omeprazole 20 MG TABLET.DR 1 TAB PO DAILY GI (Reported) OXYCODONE HCL/ACETAMINOPHEN (Percocet 7.5-325 MG Tablet) 325 MG/7.5 MG TAB 1 TAB PO Q6H PAIN (Reported) Potassium Chloride 20 MEQ TAB.ER.PRT 1 TAB PO DAILY SUPPLEMENT (Reported) Protein Supplement (Promod) 946 ML LIQUID 30 ML PO DAILY SUPPLEMENT (Reported ) Psyllium Husk (Metamucil) 3.4 GRAM/5.4 GRAM POWDER 3.4 GM PO DAILY GI ( Reported) Rosuvastatin Calcium (Crestor) 20 MG TABLET 1 TAB PO DAILY CHOLESTEROL ( Reported) Saccharomyces Boulardii (Florastor) (Unknown Strength) CAPSULE 1 CAP PO DAILY SUPPLEMENT (Reported) Current Medications: Current Medications Sig/Mey Start time Last Medication Dose Route Stop Time Status Admin Acetaminophen 0 .STK-MED ONE 10/18 2032 DC IV Acetaminophen 650 MG Q6P PRN 10/18 2015 AC 10/18 PO 2303 Acetaminophen 1,000 MG Q8P PRN 10/18 2015 AC IV Acetaminophen 1,000 MG ONCE ONE 10/18 1900 DC 10/18 IV 10/18 Alprazolam 0.5 MG TID PRN 10/18 2030 AC 10/19 PO 10/25 Aspirin 81 MG DAILY 10/19 1000 AC 10/19 PO 0848 Atorvastatin Calcium 80 MG 1700 10/18 2030 AC 10/18 PO 2105 Budesonide/ 2 PUF BID 10/18 2209 AC 10/19 Formoterol Fumarate INH 0850 Ceftazidime 1,000 MG IQ8 10/19 0000 AC 10/19 IV 0848 Ceftazidime 0 .STK-MED ONE 10/18 1814 DC .ROUTE Ceftazidime 1,000 MG ONCE ONE 10/18 1745 DC 10/18 IV 10/18 1746 1843 Clonazepam 0.5 MG QPM 10/18 2200 AC 10/18 PO 10/25 2159 2304 Enoxaparin Sodium 40 MG DAILY 10/19 1000 AC 10/19 SC 0847 Fluticasone 2 SPRAY DAILY PRN 10/18 2030 AC Propionate MARIA ANTONIA Furosemide 20 MG Q48H 10/19 1000 AC 10/19 PO 0848 Guaifenesin 10 ML Q4H PRN 10/18 2030 AC PO Insulin Aspart 0 TIDAC/HS 10/19 0800 AC SC Magnesium Hydroxide 30 ML DAILY PRN 10/18 2030 AC PO Melatonin 5 MG AT BEDTIME 10/18 2200 AC 10/18 PO 2304 Metoprolol Tartrate 25 MG BID 10/18 2200 AC 10/19 PO 0848 Omeprazole 20 MG DAILY AC 10/19 0700 AC 10/19 PO 0612 Oxycodone HCl 5 MG Q6H PRN 10/18 2015 AC 10/19 PO 0002 Sodium Chloride 1,000 ML Q13H 10/18 2030 AC 10/19 IV 0849 Vancomycin HCl 1,000 MG DAILY 10/19 1000 AC 10/19 Sodium Chloride 250 ML IV 0847 Vancomycin HCl 0 .STK-MED ONE 10/18 1814 DC .ROUTE Vancomycin HCl 1,000 MG ONCE ONE 10/18 1745 DC 10/18 Sodium Chloride 250 ML IV 10/18 1844 1843 Past History Medical History Neurological: PARAPLEGIA Cardiovascular: CAD, hypertension, hyperlipidemia, ABDOMINAL ANEURYSM Respiratory: asthma Gastrointestinal: GERD Renal: neurogenic bladder, UTI Psychiatric: anxiety, depression Endocrine: DIABETES TYPE 2 Cancer(s): prostate cancer Surgical History Pertinent Surgical History: AAA repair x2 once 2002, and 2013 Family History Relations & Conditions If Any: MOTHER FH: coronary artery disease FH: diabetes mellitus BROTHER FH: diabetes mellitus SISTER Psychosocial History Where Do You Live? [facility] Facility Services at Home: Nursing Primary Language: [place] Smoking Status: Former Smoker ETOH Use: denies use Illicit Drug Use: denies illicit drug use Functional Ability ADLs Independent: eating. Needs Assist: dressing, toileting, bathing. Ambulation: non-ambulatory IADLs Needs Assist: shopping, housework, finances, food prep, telephone, transportation, medication admin. Review of Systems Review of Systems: Patient using oxygen but not short of breath all other systems negative Exam & Diagnostic Data Vital Signs and I&O Vital Signs Date Time Temp Pulse Resp B/P Pulse O2 O2 Flow FiO2 Ox Delivery Rate 10/19 0848 87 136/60 10/19 0800 Nasal 2.0L Cannula 10/18 2344 98.5 87 20 136/60 96 Nasal 2.0L Cannula 10/18 2304 65 126/64 10/18 2219 95 Nasal 2.0L Cannula 10/18 2213 98.2 92 19 124/62 96 Nasal 2.0L Cannula 10/18 2114 99.0 10/18 2114 99.0 10/18 2039 100.1 109 20 125/60 94 Nasal 2.0L Cannula 10/18 2038 100.1 10/189 91 Nasal 2.0L Cannula 10/18 1844 99.5 109 18 135/69 92 Nasal 2.0L Cannula 10/18 1607 97.8 90 18 118/78 98 Room Air Room Air Intake & Output 10/19 1600 10/19 0800 10/19 0000 10/18 1600 10/18 0800 10/18 0000 Intake Total 620 300 Output Total 300 350 Balance 320 -50 Intake, IV 620 250 Intake, Oral 50 Number 2 Bowel Movements Output, Urine 300 350 Patient 177 lb Weight Physical Exam: Sacral wound shows 12 cm area with overlying necrotic soft tissues no cellulitis expose cortical bone Assessment/Plan Assessment/Plan Sacral wound. Operating room earliest available scheduling is Saturday at approximately lunchtime. Please make nothing by mouth Saturday night. Best to hold on antibiotics unless they are needed for active clinical infection Consult Acknowledgment - Thank you for your consult request. Attending MD Review Statement Attending Statement Attending MD Statement: examined this patient
[2016-10-19 13:38] VITALS: BP 122/70
--- NOTE | 2016-10-19 15:43 | NUR ---
NURSING NOTE: PLEASE USE PAPER TAPE ONLY PER PATIENT REQUEST.
[2016-10-19 16:22] VITALS: BP 134/64
[2016-10-19 23:40] VITALS: BP 109/48
[2016-10-20 08:23] VITALS: BP 124/48
[2016-10-20 08:47] LABS: ABSOLUTE BASOPHIL COUNT 0 /CUMM (0.0-0.2); ABSOLUTE EOSINOPHIL COUNT 0.1 /CUMM (0.0-0.7); ABSOLUTE MONOCYTE COUNT 1.4 /CUMM (0.10-0.60); BASOPHIL % 0 % (0.0-2.0); EOSINOPHIL % 0.9 % (0-5); GRANULOCYTE % 82.6 % (42.2-75.2); HEMATOCRIT 26.3 % (42-52); MEAN CORPUSCULAR HGB 28.1 PG (27.0-31.0); MEAN CORPUSCULAR HGB CONC 32.7 G/DL (33.0-37.0); MEAN CORPUSCULAR VOLUME 85.9 FL (80.0-94.0); MEAN PLATELET VOLUME 7.2 FL (7.4-10.4); PLATELET COUNT 457 /CUMM (130-400); RBC DISTRIBUTION WIDTH 16.7 % (11.5-14.5); RED BLOOD CELL CT 3.06 /CUMM (4.70-6.10); WHITE BLOOD CELL COUNT 14.5 /CUMM (4.8-10.8)
--- NOTE | 2016-10-20 10:00 | NUR ---
PATIENT DRESSING CHANGED AT TIME OF CARE/BATH BEING GIVEN. DAIPER SOAKED WITH URINE DESPITE PRESENCE OF A MULLINS THAT WAS PLACED YESTERDAY. LARGE MOUNT OF URINE ALSO NOTED IN MULLINS. WITH DRESSING CHANGE TO COCCYX, STOOL NOTICED WITH CLEANSING OF LOWER WOUND, DESPITE THE FACT THAT THE PATIENT WAS NOT INCONTINENT OF STOOL. EPIC MANAGER MECHE WAS NOTIFIED.
--- NOTE | 2016-10-20 13:30 | PN- Housestaff ---
JAYASHREE MULLIGAN,[facility] 10/20/16 1330: Subjective Follow-up For: Sepsis due to stage IV decubitus sacral ulcer Subjective: Patient seen and examined this morning. He was lying in bed in no acute distress. Denies any chest pain, palpitation, nausea, vomiting, abdominal pain, any recent changes in stool, remains a urinary catheter. Review of Systems Constitutional: Reports: see HPI. Objective Last 24 Hrs of Vital Signs/I&O Vital Signs Date Time Temp Pulse Resp B/P Pulse O2 O2 Flow FiO2 Ox Delivery Rate 10/20 0958 72 142/50 10/20 0823 98.2 68 20 124/48 98 Nasal 2.0L Cannula 10/20 0800 94 Nasal 2.0L Cannula 10/20 0000 94 Nasal 2.0L Cannula 10/19 2340 98.0 68 20 109/48 94 Nasal 2.0L Cannula 10/19 2046 88 118/60 10/19 1622 97.9 87 18 134/64 95 Nasal 2.0L Cannula 10/19 1600 95 Nasal 2.0L Cannula 10/19 1338 97.7 80 18 122/70 94 Room Air Intake & Output 10/20 1600 10/20 0800 10/20 0000 Intake Total 650 1025 Output Total 1200 700 Balance -550 325 Intake, IV 600 525 Intake, Oral 50 500 Number 0 1 Bowel Movements Output, Urine 1200 700 Patient 80.286 kg Weight Physical Exam General Appearance: Alert, Oriented X3, Cooperative Skin: large almost [id number], cm stage IV coccygeal ulcer Cardiovascular: Regular Rate, Normal S1, Normal S2 Lungs: Clear to Auscultation, Normal Air Movement Abdomen: Soft, decreased breath sounds Extremities: No Clubbing, No Cyanosis, Normal Pulses, edema 1+ pitting on the right lower extremity Current Medications: Current Medications Sig/Mey Start time Last Medication Dose Route Stop Time Status Admin Acetaminophen 650 MG .STK-MED ONE 10/19 1945 DC PO 10/19 1946 Acetaminophen 650 MG Q6P PRN 10/18 2015 AC 10/19 PO 1950 Acetaminophen 1,000 MG Q8P PRN 10/18 2015 AC IV Alprazolam 0.5 MG TID PRN 10/18 2030 AC 10/19 PO 10/25 Aspirin 81 MG DAILY 10/19 1000 AC 10/20 PO 0954 Atorvastatin Calcium 80 MG 1700 10/18 2030 AC 10/19 PO 1610 Budesonide/ 2 PUF BID 10/18 220 AC 10/20 Formoterol Fumarate INH 0954 Ceftazidime 1,000 MG IQ8 10/19 0000 AC 10/20 IV 0948 Clonazepam 0.5 MG QPM 10/18 220 AC 10/19 PO 10/25 2159 2043 Dextrose/Sodium 1,000 ML Q13H 10/19 1945 AC 10/20 Chloride IV 0959 Enoxaparin Sodium 40 MG DAILY 10/19 1000 AC 10/20 SC 0953 Fluticasone 2 SPRAY DAILY PRN 10/18 2030 AC Propionate MARIA ANTONIA Furosemide 20 MG Q48H 10/19 1000 AC 10/19 PO 0848 Guaifenesin 10 ML Q4H PRN 10/18 2030 AC 10/19 PO 2043 Insulin Aspart 0 TIDAC/HS 10/19 0800 AC 10/20 SC 1324 Magnesium Hydroxide 30 ML DAILY PRN 10/18 2030 AC PO Melatonin 5 MG AT BEDTIME 10/18 2200 AC 10/19 PO 2043 Metoprolol Tartrate 25 MG BID 10/18 220 AC 10/20 PO 0958 Omeprazole 20 MG DAILY AC 10/19 0700 AC 10/20 PO 0618 Oxycodone HCl 5 MG Q6H PRN 10/18 2015 AC 10/19 PO 2043 Potassium Chloride 20 MEQ ONCE ONE 10/19 1730 DC 10/19 PO 10/19 1731 1952 Sodium Chloride 1,000 ML Q13H 10/18 2030 DC 10/19 IV 0849 Sodium Hypochlorite 1 HILARIA BID 10/19 1442 AC 10/20 TOP 0958 Vancomycin HCl 1,000 MG DAILY 10/19 1000 AC 10/20 Sodium Chloride 250 ML IV 0953 Last 24 Hrs of Lab/Perfecto Results Last 24 Hrs of Labs/Mics: Laboratory Tests 10/20/16 0800: Anion Gap 10, Estimated GFR > 60, BUN/Creatinine Ratio 25.0, CBC w Diff NO MAN DIFF REQ, RBC 3.06 L, MCV 85.9, MCH 28.1, RDW 16.7 H, MPV 7.2 L, Gran % 82.6 H, Lymphocytes % 6.8 L, Monocytes % 9.7 H, Eosinophils % 0.9, Basophils % 0 L , Absolute Granulocytes 12.0 H, Absolute Lymphocytes 1.0 L, Absolute Monocytes 1.4 H, Absolute Eosinophils 0.1, Absolute Basophils 0, PUBS MCHC 32.7 L Assessment/Plan Assessment: Patient is a 71-year-old male with past medical history of History of coronary artery disease status post CABG, hypertension, hyperlipidemia, diabetes mellitus , abdominal AAA s/p repair leading to spinal shock, previous admission for urosepsis vs. possible sacral decubitus osteomyelitis, Paraplegia and sacral decubitus ulcers status post debridement, neurogenic bladder, Prostate cancer. Patient was in brought into [facility] from [place] due to nonhealing deep sacral and coccygeal decubitus ulcer with MRI findings suggestive of osteomyelitis. Patient also reported fever and chills. Sepsis most likely 2/2 decubitus ulcer and UTI Reported fever, maximum temperature 100.1 in the ED, pulse rate of 109, elevated WBC of 20.0, recent MRI of the pelvis suggesting possible osteomyelitis. UA suggestive of UTI and kidney damage. 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 Patient reports ulcer has been worsening since 4 weeks ago, he had been following woth his PCP, Dr. Liu. MRI done on Oct 09 that showed large decubitus ulcer extending to the coccyx with marrow edema and enhancement, and possible osteomyelitis. * Follow surgery recs * Follow ID recs * Follow wound care recs History of recurrent UTIs with chronic indwelling Boston catheter UA: Urine is turbid, high in protein, positive nitrite, large leukocyte esterase , packed with WBCs, many granular casts, moderate amount of urine hemoglobin * Follow rrine culture * Follow ID recs * Consider ultrasound of the kidneys History of hypertension * Continue amlodipine History of hyperlipidemia * Continue statin History of CAD * Continue aspirin History of diabetes * NovoLog sliding scale according to Accu-Cheks History of GERD * Prilosec DVT prophylaxis: Subcutaneous heparin Regular Diet, NPO past midnight on saturday for possible debridement in AM DNR/DNI Problem List: 1. Osteomyelitis 2. Paraplegia 3. Chronic indwelling Boston catheter 4. Decubitus ulcer Pain Ratin Pain Location: none Pain Goal: Remain pain free Pain Plan: Mild pain pathway Tomorrow's Labs & Rationales: CBC FRANCINEP MEKA DAVENPORT MD 10/20/16 1641: Attending MD Review Statement Attending Statement Attending MD Statement: examined this patient, agreed w/resident/PA/ACADEMIC SUCCESS COORDINATOR, reviewed EMR data (avail), discussed with nursing, amended to note Attending Assessment/Plan: Mr. Peterson has no complaints today. Clinically he is stable. His WBC is decreasing. We will discontinue his antibiotics as per ID and continue his other medications.
--- NOTE | 2016-10-20 16:37 | Cons- Infect Disease ---
See Addendum General Information and HPI Consulting Request Date of Consult: 10/20/16 Requested By: SLIM COLE MD Reason for Consult: Rule out sacral osteomyelitis Source of Information: patient, old records History of Present Illness: This is a 71-year-old man, [facility], with paraplegia following spinal shock after surgery for an abdominal aortic aneurysm nearly 4 years prior to admission, with an indwelling Boston catheter since, with a history of a nonhealing sacral decubitus and underlying osteomyelitis, treated with 2 courses of antibiotics, most recently 1 1/2 years prior to admission, with eventual healing, with a recurrent sacral decubitus developing approximately 4 weeks prior to admission, with an MRI 9 days prior to admission revealing bone marrow edema and enhancement, with a large sacral decubitus ulcer extending to the bone , admitted on October 18 with several days of low-grade fevers, chills, nausea with dry heaves and decreased po intake. On admission he had a low-grade fever of 100.1. Laboratory data revealed a white blood cell count of 20,000, ESR 121, BUN/creatinine 25 and 0.7, lactic acid 2.7, with normal liver enzymes. Urinalysis packed WBCs. Chest x-ray revealed bibasilar airspace opacities. He was begun on Vancomycin and Ceftazidime and given IV fluids. He was evaluated by Plastic surgery, with plans for debridement in the OR on October 22. He has had no further fevers and white blood cell count has been decreasing. His nausea has resolved and he is tolerating po well. At present he offers no complaints. Allergies/Medications Allergies: Coded Allergies: NO KNOWN ALLERGIES (10/18/16) Home Med List: Acetaminophen (Acephen) 650 MG SUPP.RECT 1 SUPP [place] Q4H PRN PAIN/TEMP>/100 ( Reported) Acetaminophen 325 MG CAPSULE 2 CAP PO Q4H PRN PAIN/TEMP>/100 (Reported) Alprazolam 0.5 MG TABLET 1 TAB PO Q8H PRN ANXIETY (Reported) Aspirin (Children's Aspirin) 81 MG TAB.CHEW 1 TAB PO DAILY HEART HEALTH ( Reported) Baclofen (Lioresal) 10 MG TABLET 1 TAB PO QAM MUSCLE RELAXER (Reported) Bisacodyl 10 MG SUPP.RECT 1 SUP RC PRN CONSTIPATION (Reported) Calcium Carbonate (Calcium) 500 MG CALCIUM (1,250 MG) TAB.CHEW 2 TAB PO Q8H PRN GI DISCOMFORT (Reported) Clonazepam (Klonopin) 0.5 MG TABLET 1 TAB PO QPM SLEEP (Reported) Cyanocobalamin (Vitamin B12) 1,000 MCG TAB 1 TAB PO QAM SUPPLEMENT (Reported) Dextran 70/Hypromellose (Artificial Tears) 1 EACH DROPERETTE 1 DROP OP TID PRN BOTH EYES (Reported) Fluticasone Propionate (Flonase Allergy Relief) 50 MCG/ACTUATION SPRAY.SUSP 2 SPRAY NASB DAILY PRN NASAL CONGESTION (Reported) Furosemide (Lasix) 20 MG TABLET 1 TAB PO EOD DIURETIC (Reported) Guaifenesin (Q-Tussin) 100 MG/5 ML LIQUID 10 ML PO Q4H PRN COUGH (Reported) Insulin Aspart, Recombinant (Novolog) 100 U/ML DARRON 0 UNITS SC AD GLUCOSE CONTROL (Reported) BLOOD SUGAR # OF UNITS < 80 NONE 80-150 NONE 151-200 4 UNITS 201-250 6 UNITS 251-300 8 UNITS 301-350 10 UNITS 351-400 12 UNITS >400 14 UNITS and call Magnesium Hydroxide (Milk Of Magnesia) 400 MG/5 ML ORAL.SUSP 30 ML PO DAILY PRN CONSTIPATION (Reported) Melatonin 5 MG TAB.SUBL 1 TAB PO QHS SLEEP (Reported) METFORMIN HCL (Metformin) 1,000 MG TABLET 1 TAB PO BID DIABETES (Reported) Metoprolol Tartrate (Lopressor) 25 MG TABLET 1 TAB PO BID BP/HEART (Reported) MOMETASONE/FORMOTEROL (Dulera 100 Mcg/5 Mcg Inhaler) 100 MCG-5 MCG/ACTUATION HFA.AER.AD 2 PUF INH BID UNKNOWN (Reported) Multivitamin (Multiple Vitamins) 1 EACH TABLET 1 TAB PO QAM SUPPLEMENT ( Reported) Na Phos,M-B/Na Phos,Di-Ba (Fleet Enema) 19 GRAM-7 GRAM/118 ML ENEMA 1 E RC DAILY PRN CONSTIPATION (Reported) Reno-3 Fatty Acids (Reno-3) 1,000 MG CAPSULE 1 CAP PO DAILY SUPPLEMENT ( Reported) Omeprazole 20 MG TABLET.DR 1 TAB PO DAILY GI (Reported) OXYCODONE HCL/ACETAMINOPHEN (Percocet 7.5-325 MG Tablet) 325 MG/7.5 MG TAB 1 TAB PO Q6H PAIN (Reported) Potassium Chloride 20 MEQ TAB.ER.PRT 1 TAB PO DAILY SUPPLEMENT (Reported) Protein Supplement (Promod) 946 ML LIQUID 30 ML PO DAILY SUPPLEMENT (Reported ) Psyllium Husk (Metamucil) 3.4 GRAM/5.4 GRAM POWDER 3.4 GM PO DAILY GI ( Reported) Rosuvastatin Calcium (Crestor) 20 MG TABLET 1 TAB PO DAILY CHOLESTEROL ( Reported) Saccharomyces Boulardii (Florastor) (Unknown Strength) CAPSULE 1 CAP PO DAILY SUPPLEMENT (Reported) Past History Travel History Traveled to [place] past 21 day No Medical History Neurological: PARAPLEGIA STATUS POST SPINAL SHOCK POSTOP Cardiovascular: CAD, hypertension, hyperlipidemia, ABDOMINAL ANEURYSM Respiratory: asthma Gastrointestinal: GERD Renal: neurogenic bladder, UTI Musculoskeletal: decubitis ulcer (OSTEOMYELITIS) Psychiatric: anxiety, depression Endocrine: DIABETES TYPE 2 Cancer(s): prostate cancer History of MRSA: Yes Active MRSA Infection: Yes History of VRE: No History of CDIFF: No Isolation History: Contact Pneumonia Vaccine: 08/07/13 Influenza Vaccine: 09/04/16 Surgical History Surgical History: AAA repair x2 once 2002, and 2013 Family History Relations & Conditions If Any: MOTHER FH: coronary artery disease FH: diabetes mellitus BROTHER FH: diabetes mellitus SISTER Psychosocial History Where Do You Live? Longterm Facility Services at Home: Nursing Primary Language: Greek Smoking Status: Former Smoker ETOH Use: denies use Illicit Drug Use: denies illicit drug use Functional Ability ADLs Independent: eating. Needs Assist: dressing, toileting, bathing. Ambulation: non-ambulatory IADLs Needs Assist: shopping, housework, finances, food prep, telephone, transportation, medication admin. Review of Systems Review of Systems All Other Systems: Reviewed and Negative Exam & Diagnostic Data Last 24 Hrs of Vital Signs/I&O Vital Signs Date Time Temp Pulse Resp B/P Pulse O2 O2 Flow FiO2 Ox Delivery Rate 10/20 0958 72 142/50 10/20 08 98.2 68 20 124/48 98 Nasal 2.0L Cannula 10/20 08 94 Nasal 2.0L Cannula 10/20 0000 94 Nasal 2.0L Cannula 10/19 2340 98.0 68 20 109/48 94 Nasal 2.0L Cannula 10/19 2046 88 118/60 Intake & Output 10/20 1600 10/20 0800 10/20 0000 Intake Total 650 1025 Output Total 1200 700 Balance -550 325 Intake, IV 600 525 Intake, Oral 50 500 Number 0 1 Bowel Movements Output, Urine 1200 700 Patient 177 lb Weight Physical Exam Other Physical Findings: He is awake and alert in no acute distress. He is afebrile. Skin reveals no rash. HEENT exam is negative. Neck is supple with no adenopathy. Lungs are clear. Heart regular rhythm with no murmur. Abdomen is soft, nontender with positive bowel sounds. Back sacral decubitus with a necrotic eschar, with no surrounding erythema or purulence. Extremities no cyanosis, clubbing or edema. Neuro paraplegia. Boston catheter is in place. Last 24 Hours of Lab Results: Laboratory Tests 10/20 0800 Chemistry Sodium (137 - 145 mmol/L) 137 Potassium (3.5 - 5.1 mmol/L) 3.4 L Chloride (98 - 107 mmol/L) 98 Carbon Dioxide (22 - 30 mmol/L) 29 Anion Gap (5 - 16) 10 BUN (9 - 20 mg/dL) 15 Creatinine (0.7 - 1.2 mg/dL) 0.6 L Estimated GFR (>60 ml/min) > 60 BUN/Creatinine Ratio (7 - 25 %) 25.0 Hematology CBC w Diff NO MAN DIFF REQ WBC (4.8 - 10.8 /CUMM) 14.5 H RBC (4.70 - 6.10 /CUMM) 3.06 L Hgb (14.0 - 18.0 G/DL) 8.6 L Hct (42 - 52 %) 26.3 L MCV (80.0 - 94.0 FL) 85.9 MCH (27.0 - 31.0 PG) 28.1 RDW (11.5 - 14.5 %) 16.7 H Plt Count (130 - 400 /CUMM) 457 H MPV (7.4 - 10.4 FL) 7.2 L Gran % (42.2 - 75.2 %) 82.6 H Lymphocytes % (20.5 - 51.1 %) 6.8 L Monocytes % (1.7 - 9.3 %) 9.7 H Eosinophils % (0 - 5 %) 0.9 Basophils % (0.0 - 2.0 %) 0 L Absolute Granulocytes (1.4 - 6.5 /CUMM) 12.0 H Absolute Lymphocytes (1.2 - 3.4 /CUMM) 1.0 L Absolute Monocytes (0.10 - 0.60 /CUMM) 1.4 H Absolute Eosinophils (0.0 - 0.7 /CUMM) 0.1 Absolute Basophils (0.0 - 0.2 /CUMM) 0 PUBS MCHC (33.0 - 37.0 G/DL) 32.7 L Last 24 Hours of Perfecto Results: Blood cultures 2 October 18 negative Urine culture October 18 positive for multiple colony types consistent with contamination Diagnostic Data Recent Imaging Findings: Chest x-ray October 18 personally reviewed, reveals bibasilar airspace opacities Assessment/Plan Assessment/Plan Impression: This is a 71-year-old man with paraplegia, with a history of a nonhealing sacral decubitus and underlying osteomyelitis, treated with several courses of IV antibiotics, most recently 1 1/2 years prior to admission, admitted on October 18 with a recurrent sacral decubitus, which apparently developed 4 weeks prior to admission, with a recent MRI suggesting the possibility of underlying osteomyelitis, and with more acute onset of fevers, chills and nausea with decreased po intake, found on admission to have a low-grade fever, a necrotic sacral decubitus and a leukocytosis. He may well have underlying osteomyelitis as well as a soft tissue infection, which may not be visible with the overlying eschar, and he will require a bone biopsy in addition to debridement of the soft tissue to confirm this and, if positive, to identify the organisms responsible. If osteomyelitis is confirmed he will also need debridement of the bone. The bone biopsy should be done off antibiotics, and, as he is stable, his antibiotics should be discontinued now, though his cultures may still be affected by the recent antibiotics. He appears to have been dehydrated on admission, which may be responsible for some of his leukocytosis. Of note a suprapubic catheter has been considered in the past so that the Boston catheter can be removed and this should again be pursued. Suggestion: 1. Await debridement of the decubitus and bone biopsy 2. Would pursue alternatives to the Boston catheter, for example suprapubic cystostomy 3. Discontinue Vancomycin and Ceftazidime and follow off antibiotics pending above Consult Acknowledgment - Thank you for your consult request.
[2016-10-20 17:13] VITALS: BP 156/50
[2016-10-20 23:40] VITALS: BP 126/59
[2016-10-21 08:42] VITALS: BP 140/58
--- NOTE | 2016-10-21 08:42 | PN- Housestaff ---
JAYASHREE MULLIGAN,[facility] 10/21/16 0841: Subjective Follow-up For: Sacral decubitus ulcer stage 4 Subjective: Patient seen and examined this morning. He was lying comfortably in bed in no acute distress. He is scheduled for debridement of his sacral wound tomorrow, will be nothing by mouth starting midnight. Review of Systems Constitutional: Reports: see HPI. Objective Last 24 Hrs of Vital Signs/I&O Vital Signs Date Time Temp Pulse Resp B/P Pulse O2 O2 Flow FiO2 Ox Delivery Rate 10/21 0912 77 140/52 10/21 0842 97.6 77 20 140/58 94 Nasal 2.0L Cannula 10/21 0800 Nasal 2.0L Cannula 10/21 0000 Nasal 2.0L Cannula 10/20 2340 100.4 79 20 126/59 95 Nasal Cannula 10/20 2212 150/68 10/20 1713 97.8 77 20 156/50 93 Nasal Cannula Intake & Output 10/21 1600 10/21 0800 10/21 0000 Intake Total 1100 465 Output Total 1600 1250 Balance -500 -785 Intake, IV 600 225 Intake, Oral 500 240 Output, Urine 1600 1250 Physical Exam General Appearance: Alert, Oriented X3, Cooperative Skin: 10X10 centimeters sacral wound stage IV Cardiovascular: Regular Rate, Normal S1, Normal S2 Lungs: Clear to Auscultation, Normal Air Movement Abdomen: Normal Bowel Sounds, Soft, No Tenderness Extremities: No Clubbing, No Cyanosis, No Edema Current Medications: Current Medications Sig/Mey Start time Last Medication Dose Route Stop Time Status Admin Acetaminophen 650 MG .STK-MED ONE 10/20 2348 DC PO 10/20 2349 Acetaminophen 650 MG Q6P PRN 10/18 2015 AC 10/20 PO 2350 Acetaminophen 1,000 MG Q8P PRN 10/18 2015 AC IV Alprazolam 0.5 MG TID PRN 10/18 2030 AC 10/19 PO 10/25 2028 000 Aspirin 81 MG DAILY 10/19 1000 AC 10/21 PO 0911 Atorvastatin Calcium 80 MG 1700 10/18 2030 AC 10/20 PO 1816 Budesonide/ 2 PUF BID 10/18 2209 AC 10/21 Formoterol Fumarate INH 0912 Ceftazidime 1,000 MG IQ8 10/19 0000 DC 10/20 IV 0948 Clonazepam 0.5 MG QPM 10/18 2200 AC 10/20 PO 10/25 2159 2211 Dextrose/Sodium 1,000 ML Q13H 10/19 1945 AC 10/20 Chloride IV 0959 Enoxaparin Sodium 40 MG DAILY 10/19 1000 AC 10/21 SC 0911 Fluticasone 2 SPRAY DAILY PRN 10/18 2030 AC Propionate MARIA ANTONIA Furosemide 20 MG Q48H 10/19 1000 AC 10/21 PO 0911 Guaifenesin 10 ML Q4H PRN 10/18 2030 AC 10/20 PO 2213 Insulin Aspart 0 TIDAC/HS 10/19 0800 AC 10/21 SC 0911 Magnesium Hydroxide 30 ML DAILY PRN 10/18 2030 AC PO Melatonin 5 MG AT BEDTIME 10/18 2200 AC 10/20 PO 221 Metoprolol Tartrate 25 MG BID 10/18 2200 AC 10/21 PO 0912 Omeprazole 20 MG DAILY AC 10/19 0700 AC 10/21 PO 0911 Oxycodone HCl 5 MG Q6H PRN 10/18 2015 AC 10/20 PO 2019 Potassium Chloride 40 MEQ ONCE ONE 10/21 0115 DC 10/21 PO 10/21 0116 0141 Potassium Chloride 20 MEQ ONCE ONE 10/21 0045 CAN PO 10/21 0046 Potassium Chloride 10 MEQ Q1H 10/21 0045 DC IV 10/21 0146 Potassium Chloride 10 MEQ ONCE ONE 10/21 0045 CAN IV 10/21 0046 Sodium Hypochlorite 1 HILARIA BID 10/19 1442 AC 10/21 TOP 0913 Vancomycin HCl 1,000 MG DAILY 10/19 1000 DC 10/20 Sodium Chloride 250 ML IV 0953 Assessment/Plan Assessment: Patient is a 71-year-old male with past medical history of History of coronary artery disease status post CABG, hypertension, hyperlipidemia, diabetes mellitus , abdominal AAA s/p repair leading to spinal shock, previous admission for urosepsis vs. possible sacral decubitus osteomyelitis, Paraplegia and sacral decubitus ulcers status post debridement, neurogenic bladder, Prostate cancer. Patient was in brought into [facility] from [place] due to nonhealing deep sacral and coccygeal decubitus ulcer with MRI findings suggestive of osteomyelitis. Patient also reported fever and chills. Sepsis most likely 2/2 decubitus ulcer and UTI Reported fever, maximum temperature 100.1 in the ED, pulse rate of 109, elevated WBC of 20.0, recent MRI of the pelvis suggesting possible osteomyelitis. UA suggestive of UTI and kidney damage. 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 Patient reports ulcer has been worsening since 4 weeks ago, he had been following woth his PCP, Dr. Liu. MRI done on Oct 09 that showed large decubitus ulcer extending to the coccyx with marrow edema and enhancement, and possible osteomyelitis. * Surgery on board, patient to get debridement tomorrow, currently nothing by mouth overnight for the procedure. * Follow wound care recs History of recurrent UTIs with chronic indwelling Boston catheter UA: Urine is turbid, high in protein, positive nitrite, large leukocyte esterase , packed with WBCs, many granular casts, moderate amount of urine hemoglobin * Follow rrine culture * Follow ID recs * Consider ultrasound of the kidneys History of hypertension * Continue amlodipine History of hyperlipidemia * Continue statin History of CAD * Continue aspirin History of diabetes * NovoLog sliding scale according to Accu-Cheks History of GERD * Prilosec DVT prophylaxis: Subcutaneous heparin Regular Diet, NPO past midnight on saturday for possible debridement in AM Problem List: 1. Osteomyelitis 2. Paraplegia 3. Chronic indwelling Boston catheter 4. Decubitus ulcer Pain Ratin Pain Location: Might pain pathway Pain Goal: Remain pain free Pain Plan: CBC BEP Tomorrow's Labs & Rationales: . MEKA DAVENPORT MD 10/21/16 1732: Attending MD Review Statement Attending Statement Attending MD Statement: examined this patient, agreed w/resident/PA/PUBLIC SPEAKING COACH, reviewed EMR data (avail), amended to note Attending Assessment/Plan: Mr. Peterson has no complaints. He did have a low-grade fever at midnight last night but it is now resolved. His other vitals are stable. He is now maintaining adequate saturation on room air. We are continuing to observe while holding antibiotics. He is scheduled for debridement/bone biopsy in the a.m. He will be made nothing by mouth after midnight tonight.
--- NOTE | 2016-10-21 11:12 | PN- Infect Dx ---
Subjective Subjective: MAXIMUM TEMPERATURE 100.4. He slept poorly last night but is otherwise without complaints Objective Last 24 Hrs of Vital Signs/I&O Vital Signs Date Time Temp Pulse Resp B/P Pulse O2 O2 Flow FiO2 Ox Delivery Rate 10/21 0912 77 140/52 10/21 0842 97.6 77 20 140/58 94 Nasal 2.0L Cannula 10/21 0000 Nasal 2.0L Cannula 10/20 2340 100.4 79 20 126/59 95 Nasal Cannula 10/20 2212 150/68 10/20 1713 97.8 77 20 156/50 93 Nasal Cannula Intake & Output 10/21 1600 10/21 0800 10/21 0000 Intake Total 1100 465 Output Total 1600 1250 Balance -500 -785 Intake, IV 600 225 Intake, Oral 500 240 Output, Urine 1600 1250 Physical Exam Other Physical Findings: He appears comfortable in no acute distress Lungs are clear Back sacral decubitus with a necrotic eschar, with no surrounding erythema or purulence Extremities no cyanosis, clubbing or edema Boston catheter remains in place Results Last 24 Hours of Lab Results: No labs from today Last 24 Hours of Perfecto Results: Blood cultures 2 October 18 negative Assessment/Plan Impression: Stable off antibiotics with low-grade fever last night likely secondary to the necrotic eschar over the sacrum, which requires debridement, which is scheduled for the a.m. The recent MRI is suggestive of underlying osteomyelitis, and he will require debridement of the eschar, a bone biopsy and, if osteomyelitis is confirmed, debridement of the bone. He has had a correction indwelling Boston catheter, but, as previously discussed, alternatives, such as straight catheterization or suprapubic cystostomy, should be considered. Suggestion: 1. Await debridement of the decubitus and bone biopsy in the a.m. 2. Would pursue alternatives to a Boston catheter, such as straight catheterization or suprapubic cystostomy 3. Continue to follow off antibiotics pending above
[2016-10-21 15:57] VITALS: BP 142/60
[2016-10-21 23:56] VITALS: BP 145/51
[2016-10-22 08:02] LABS: ABSOLUTE BASOPHIL COUNT 0 /CUMM (0.0-0.2); ABSOLUTE EOSINOPHIL COUNT 0.3 /CUMM (0.0-0.7); ABSOLUTE GRANULOCYTE CT 10.9 /CUMM (1.4-6.5); ABSOLUTE LYMPH COUNT 1.2 /CUMM (1.2-3.4); ABSOLUTE MONOCYTE COUNT 1.5 /CUMM (0.10-0.60); BASOPHIL % 0.3 % (0.0-2.0); EOSINOPHIL % 2.2 % (0-5); GRANULOCYTE % 78.6 % (42.2-75.2); HEMATOCRIT 28.2 % (42-52); MEAN CORPUSCULAR HGB 27.9 PG (27.0-31.0); MEAN CORPUSCULAR HGB CONC 32.7 G/DL (33.0-37.0); MEAN CORPUSCULAR VOLUME 85.4 FL (80.0-94.0); MEAN PLATELET VOLUME 7.2 FL (7.4-10.4); PLATELET COUNT 559 /CUMM (130-400); RBC DISTRIBUTION WIDTH 17.3 % (11.5-14.5); WHITE BLOOD CELL COUNT 13.9 /CUMM (4.8-10.8)
[2016-10-22 08:16] VITALS: BP 122/60
--- NOTE | 2016-10-22 08:26 | PN- Housestaff ---
Subjective Follow-up For: DECUBITUS ULCER Subjective: pt was seen today, was lying comfortable in bed. plan for washout in OR at 1115 am today, has been NPO overnight. Pt has not complains. unable to feel pain and he is paralyzed from the chest down. Review of Systems Constitutional: Reports: see HPI. EENTM: Denies: visual changes. Cardiovascular: Denies: chest pain. Respiratory: Denies: cough, short of breath. Gastrointestinal: Denies: abdominal pain, bloating, constipation, diarrhea. Objective Last 24 Hrs of Vital Signs/I&O Vital Signs Date Time Temp Pulse Resp B/P Pulse O2 O2 Flow FiO2 Ox Delivery Rate 10/22 0940 90 10/22 0816 99.0 90 20 122/60 90 10/21 2356 98.0 83 20 145/51 98 Room Air 10/21 2138 70 138/57 10/21 1557 98.0 84 20 142/60 94 Intake & Output 10/22 1600 10/22 0800 10/22 0000 Intake Total 300 510 Output Total 800 1850 Balance -500 -1340 Intake, IV 300 150 Intake, Oral 360 Number 1 Bowel Movements Output, Urine 800 1850 Physical Exam General Appearance: Alert, Oriented X3, Cooperative Skin: ulcer not examined HEENT: Atraumatic, PERRLA Cardiovascular: Regular Rate, Normal S1, Normal S2, No Murmurs, Gallops, Rubs Lungs: Clear to Auscultation, Normal Air Movement Abdomen: Normal Bowel Sounds, Soft, No Tenderness Neurological: Normal Speech Current Medications: Current Medications Sig/Mey Start time Last Medication Dose Route Stop Time Status Admin Acetaminophen 650 MG .STK-MED ONE 10/21 1655 DC PO 10/21 165 Acetaminophen 650 MG Q6P PRN 10/18 2015 AC 10/21 PO 1703 Acetaminophen 1,000 MG Q8P PRN 10/18 2015 AC IV Alprazolam 0.5 MG TID PRN 10/18 2030 AC 10/19 PO 10/25 Aspirin 81 MG DAILY 10/19 1000 AC 10/21 PO 0911 Atorvastatin Calcium 80 MG 1700 10/18 2030 AC 10/21 PO 1703 Budesonide/ 2 PUF BID 10/18 2209 AC 10/22 Formoterol Fumarate INH 0940 Clonazepam 0.5 MG QPM 10/18 2200 AC 10/21 PO 01/05 2159 2137 Dextrose/Sodium 1,000 ML Q13H 10/19 1945 AC 10/21 Chloride IV 2140 Enoxaparin Sodium 40 MG DAILY 10/19 1000 AC 10/21 SC 0911 Fluticasone 2 SPRAY DAILY PRN 10/18 2030 AC Propionate MARIA ANTONIA Furosemide 20 MG Q48H 10/19 1000 AC 10/21 PO 0911 Guaifenesin 10 ML Q4H PRN 10/18 2030 AC 10/21 PO 2139 Insulin Aspart 0 TIDAC/HS 10/19 0800 AC 10/21 SC 1703 Magnesium Hydroxide 30 ML DAILY PRN 10/18 2030 AC PO Melatonin 5 MG AT BEDTIME 10/18 2200 AC 10/21 PO 2137 Metoprolol Tartrate 25 MG BID 10/18 2200 AC 10/22 PO 0940 Omeprazole 20 MG DAILY AC 10/19 07 AC 10/22 PO 0553 Oxycodone HCl 5 MG Q6H PRN 10/18 2015 AC 10/22 PO 0747 Potassium Chloride 40 MEQ ONCE ONE 10/21 1430 DC 10/21 PO 10/21 1431 1703 Sodium Hypochlorite 1 HILARIA BID 10/19 1442 10/21 [facility] 2143 Last 24 Hrs of Lab/Perfecto Results Last 24 Hrs of Labs/Mics: Laboratory Tests 10/22/16 0724: Anion Gap 12, Estimated GFR > 60, BUN/Creatinine Ratio 30.0 H, CBC w Diff NO MAN DIFF REQ, RBC 3.30 L, MCV 85.4, MCH 27.9, RDW 17.3 H, MPV 7.2 L, Gran % 78.6 H, Lymphocytes % 8.4 L, Monocytes % 10.5 H, Eosinophils % 2.2, Basophils % 0.3, Absolute Granulocytes 10.9 H, Absolute Lymphocytes 1.2, Absolute Monocytes 1.5 H, Absolute Eosinophils 0.3, Absolute Basophils 0, PUBS MCHC 32.7 L Microbiology 10/22 1211 EXTREMITIE: Gross Specimen Examination - COLB 10/22 1210 EXTREMITIE: Gram Stain - COLB Assessment/Plan Assessment: Patient is a 71-year-old male with past medical history of History of coronary artery disease status post CABG, hypertension, hyperlipidemia, diabetes mellitus , abdominal AAA s/p repair leading to spinal shock, previous admission for urosepsis vs. possible sacral decubitus osteomyelitis, Paraplegia and sacral decubitus ulcers status post debridement, neurogenic bladder, Prostate cancer. Patient was in brought into [facility] from [place] due to nonhealing deep sacral and coccygeal decubitus ulcer with MRI findings suggestive of osteomyelitis. Patient also reported fever and chills. Sepsis most likely 2/2 decubitus ulcer and UTI Reported fever, maximum temperature 100.1 in the ED, pulse rate of 109, elevated WBC of 20.0, recent MRI of the pelvis suggesting possible osteomyelitis. UA suggestive of UTI and kidney damage. 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 Patient reports ulcer has been worsening since 4 weeks ago, he had been following woth his PCP, Dr. Liu. MRI done on Oct 09 that showed large decubitus ulcer extending to the coccyx with marrow edema and enhancement, and possible osteomyelitis. * Surgery on board, patient to get debridement tomorrow, currently nothing by mouth overnight for the procedure. * Follow wound care recs History of recurrent UTIs with chronic indwelling Boston catheter UA: Urine is turbid, high in protein, positive nitrite, large leukocyte esterase , packed with WBCs, many granular casts, moderate amount of urine hemoglobin * Follow rrine culture * Follow ID recs * Consider ultrasound of the kidneys History of hypertension * Continue amlodipine History of hyperlipidemia * Continue statin History of CAD * Continue aspirin History of diabetes * NovoLog sliding scale according to Accu-Cheks History of GERD * Prilosec DVT prophylaxis: Subcutaneous heparin NPO for surger, regular diet once back from OR Problem List: 1. Decubitus ulcer Pain Ratin Pain Location: none Pain Goal: Remain pain free Pain Plan: none Tomorrow's Labs & Rationales: bep for hyponatremia cbc for leukocytosis DVT/Prophylaxis: mechanical, pharmacological
--- NOTE | 2016-10-22 10:39 | PN- Att Addend ---
Attending Addendum Attending Brief Note Intake & Output 10/22 1600 10/22 0800 10/22 0000 Intake Total 300 510 Output Total 800 1850 Balance -500 -1340 Intake, IV 300 150 Intake, Oral 360 Number 1 Bowel Movements Output, Urine 800 1850 Current Medications Sig/Mey Start time Last Medication Dose Route Stop Time Status Admin Acetaminophen 650 MG .STK-MED ONE 10/21 165 DC PO 10/21 165 Acetaminophen 650 MG Q6P PRN 10/18 2015 AC 10/21 PO 1703 Acetaminophen 1,000 MG Q8P PRN 10/18 2015 AC IV Alprazolam 0.5 MG TID PRN 10/18 2030 AC 10/19 PO 10/25 2028 0006 Aspirin 81 MG DAILY 10/19 1000 AC 10/21 PO 0911 Atorvastatin Calcium 80 MG 1700 10/18 2030 AC 10/21 PO 1703 Budesonide/ 2 PUF BID 10/18 2209 AC 10/22 Formoterol Fumarate INH 0940 Clonazepam 0.5 MG QPM 10/18 2200 AC 10/21 PO 10/25 215 2137 Dextrose/Sodium 1,000 ML Q13H 10/19 1945 AC 10/21 Chloride IV 2140 Enoxaparin Sodium 40 MG DAILY 10/19 1000 AC 10/21 SC 0911 Fluticasone 2 SPRAY DAILY PRN 10/18 2030 AC Propionate MARIA ANTONIA Furosemide 20 MG Q48H 10/19 1000 AC 10/21 PO 0911 Guaifenesin 10 ML Q4H PRN 10/18 2030 AC 10/21 PO 2139 Insulin Aspart 0 TIDAC/HS 10/19 08 AC 10/21 SC 1703 Magnesium Hydroxide 30 ML DAILY PRN 10/18 2030 AC PO Melatonin 5 MG AT BEDTIME 10/18 2200 AC 10/21 PO 2137 Metoprolol Tartrate 25 MG BID 10/18 2200 AC 10/22 PO 0940 Omeprazole 20 MG DAILY AC 10/19 700 AC 10/22 PO 0553 Oxycodone HCl 5 MG Q6H PRN 10/18 2015 AC 10/22 PO 0747 Potassium Chloride 40 MEQ ONCE ONE 10/21 1430 DC 10/21 PO 10/21 1431 1703 Sodium Hypochlorite 1 HILARIA BID 10/19 1442 AC 10/21 TOP 2143 Laboratory Tests 10/22 0724 Chemistry Sodium (137 - 145 mmol/L) 136 L Potassium (3.5 - 5.1 mmol/L) 4.7 Chloride (98 - 107 mmol/L) 94 L Carbon Dioxide (22 - 30 mmol/L) 30 Anion Gap (5 - 16) 12 BUN (9 - 20 mg/dL) 18 Creatinine (0.7 - 1.2 mg/dL) 0.6 L Estimated GFR (>60 ml/min) > 60 BUN/Creatinine Ratio (7 - 25 %) 30.0 H Hematology CBC w Diff NO MAN DIFF REQ WBC (4.8 - 10.8 /CUMM) 13.9 H RBC (4.70 - 6.10 /CUMM) 3.30 L Hgb (14.0 - 18.0 G/DL) 9.2 L Hct (42 - 52 %) 28.2 L MCV (80.0 - 94.0 FL) 85.4 MCH (27.0 - 31.0 PG) 27.9 RDW (11.5 - 14.5 %) 17.3 H Plt Count (130 - 400 /CUMM) 559 H MPV (7.4 - 10.4 FL) 7.2 L Gran % (42.2 - 75.2 %) 78.6 H Lymphocytes % (20.5 - 51.1 %) 8.4 L Monocytes % (1.7 - 9.3 %) 10.5 H Eosinophils % (0 - 5 %) 2.2 Basophils % (0.0 - 2.0 %) 0.3 Absolute Granulocytes (1.4 - 6.5 /CUMM) 10.9 H Absolute Lymphocytes (1.2 - 3.4 /CUMM) 1.2 Absolute Monocytes (0.10 - 0.60 /CUMM) 1.5 H Absolute Eosinophils (0.0 - 0.7 /CUMM) 0.3 Absolute Basophils (0.0 - 0.2 /CUMM) 0 PUBS MCHC (33.0 - 37.0 G/DL) 32.7 L Vital Signs Date Time Temp Pulse Resp B/P Pulse O2 O2 Flow FiO2 Ox Delivery Rate 10/22 0940 90 10/22 0816 99.0 90 20 122/60 90 10/21 2356 98.0 83 20 145/51 98 Room Air 10/21 2138 70 138/57 10/21 1557 98.0 84 20 142/60 94 Intake & Output 10/22 1600 10/22 0800 10/22 0000 Intake Total 300 510 Output Total 800 1850 Balance -500 -1340 Intake, IV 300 150 Intake, Oral 360 Number 1 Bowel Movements Output, Urine 800 1850 Patient more awake alert fairly stable. Currently on management for decubitus ulcer no change in management. he is off antibiotics now.
--- NOTE | 2016-10-22 12:10 | Operative Report ---
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 There is foul odor and overlying soft tissue necrosis we discussed the risks which included bleeding and infection. He was brought to the operating room and sedated. He was turned right side down. Buttock was prepped and draped in usual fashion. Extensive debridement of a significant amount of overlying necrotic soft tissue was excised clinical osteomyelitis is present. The coccyx was debrided away as well as the distal portion of the sacrum. This was sent for micro and path analysis. The wound was made hemostatic and packed.
--- NOTE | 2016-10-22 12:16 | PN- Plastic Surgery ---
Subjective Subjective: post op Review of Systems: post op Objective Vital Signs and I&Os Vital Signs Date Time Temp Pulse Resp B/P Pulse O2 O2 Flow FiO2 Ox Delivery Rate 10/22 0940 90 10/22 0816 99.0 90 20 122/60 90 10/21 2356 98.0 83 20 145/51 98 Room Air 10/21 2138 70 138/57 10/21 1557 98.0 84 20 142/60 94 Intake & Output 10/22 1600 10/22 0800 10/22 0000 10/21 1600 10/21 0810/21 0000 Intake Total 645 874 2973 1100 465 Output Total 800 1850 1200 1600 1250 Balance -500 -1340 780 -500 -785 Intake, IV 300 150 600 600 225 Intake, Oral 360 1380 500 240 Number 1 0 Bowel Movements Output, Urine 800 1850 1200 1600 1250 Assessment/Plan Assessment/Plan The patient has a second area of injury inferior to the anus with full-thickness loss of approximately 2 x 2 centimeters. The depth of the wound was pink and moist. The patient states he is on an "air loss mattress" at [employer]. Despite that mattress the patient has ongoing soft tissue injury in the midline and can lead to significant further erosions into urogenital structures. Attention to offloading pressure in the midline is important. Wound care instructions per Dr. Guzman. No changes made. The patient needs to consider a diverting colostomy to help improve chances of healing this wound which would likely require flap surgery. I discussed this with him today. Please order appropriate labs to evaluate nutritional status in anticipation of future flap surgery (only if the patient has had a diverting colostomy). Abx and pic line per ID as needed. Follow up office after diverting colostomy
[2016-10-22 16:45] VITALS: BP 120/64
[2016-10-22 23:30] VITALS: BP 140/60
--- NOTE | 2016-10-23 06:08 | PN- Housestaff ---
Subjective Follow-up For: Sepsis due to stage IV decubitus sacral ulcer Bacteremia Subjective: Patient seen and examined at bedside. He is resting comfortably in bed. Alert, awake and oriented x 3. No acute distress. No acute complaints. Denies any respiratory or urinary sxs. No chest pain, palpitations. No n/v/c/d/f/c. Review of Systems Constitutional: Reports: see HPI. Objective Last 24 Hrs of Vital Signs/I&O Vital Signs Date Time Temp Pulse Resp B/P Pulse O2 O2 Flow FiO2 Ox Delivery Rate 10/23 0943 120/60 10/23 0821 98.3 74 20 124/60 92 Room Air 10/22 2330 98.8 81 20 140/60 93 10/22 2135 80 132/58 10/22 1645 98.2 88 18 120/64 93 Nasal Cannula Intake & Output 10/23 1600 10/23 0800 10/23 0000 Intake Total 8629 728 7583 Output Total 1900 1450 1000 Balance -100 -1050 300 Intake, IV 400 400 Intake, Oral 1800 900 Number 1 Bowel Movements Output, Stool 0 Output, Urine 1900 1450 1000 Physical Exam General Appearance: Alert, Oriented X3, Cooperative, No Acute Distress Other Physical Findings: Skin there is a large 10x10 cm in the lower lumbar area and coccyx, stage 4 ( extending into the bone), there is foul smelling discharge from the ulcer and there is necrotic tissue in the edges and inside the wound. HEENT Atraumatic, PERRLA, EOMI, Mucous Membr. moist/pink Neck Supple, No JVD Cardiovascular Regular Rate, Normal S1, Normal S2, No Murmurs Lungs Clear to Auscultation, Normal Air Movement Abdomen No Masses, decreased bowel sounds, No sensation from below the chest wall Neurological Normal Speech, Cranial Nerves 3-12 NL, forces 0/5 in bilateral LE, 5/5 forces on both upper extremities, sensory deficit from below the chest wall (T8-T9 level) Extremities No Clubbing, No Cyanosis, Normal Pulses, 1+ pitting edema on the right lower extremity Vascular Normal Pulses, Pulses Symmetrical Current Medications: Current Medications Sig/Mey Start time Last Medication Dose Route Stop Time Status Admin Acetaminophen 650 MG Q6P PRN 10/18 2015 AC 10/21 PO 1703 Acetaminophen 1,000 MG Q8P PRN 10/18 2015 AC IV Alprazolam 0.5 MG TID PRN 10/18 2030 AC 10/23 PO 10/25 2028 0805 Aspirin 81 MG DAILY 10/19 1000 AC 10/23 PO 0943 Atorvastatin Calcium 80 MG 1700 10/18 2030 AC 10/22 PO 1715 Budesonide/ 2 PUF BID 10/18 2209 AC 10/23 Formoterol Fumarate INH 0942 Ceftriaxone Sodium 2,000 MG DAILY 10/23 1415 AC IV Clonazepam 0.5 MG QPM 10/18 2200 AC 10/22 PO 10/25 215 213 Dextrose/Sodium 1,000 ML Q13H 10/19 1945 DC 10/23 Chloride IV 0941 Enoxaparin Sodium 40 MG DAILY 10/19 1000 AC 10/23 SC 0951 Fluticasone 2 SPRAY DAILY PRN 10/18 2030 AC Propionate MARIA ANTONIA Furosemide 20 MG Q48H 10/19 1000 AC 10/23 PO 0943 Guaifenesin 10 ML Q4H PRN 10/18 2030 AC 10/22 PO 2136 Insulin Aspart 0 TIDAC/HS 10/19 08 AC 10/23 SC 1237 Magnesium Hydroxide 30 ML DAILY PRN 10/18 2030 AC PO Melatonin 5 MG AT BEDTIME 10/18 2200 AC 10/22 PO 2135 Metoprolol Tartrate 25 MG BID 10/18 2200 AC 10/23 PO 0943 Metronidazole 500 MG IQ8 10/23 1600 AC N/A 1 UNIT IV Omeprazole 20 MG DAILY AC 10/19 0700 AC 10/23 PO 0614 Oxycodone HCl 5 MG Q6H PRN 10/18 2015 AC 10/22 PO 2136 Sodium Hypochlorite 1 HILARIA BID 10/19 1442 AC 10/23 TOP 0943 Last 24 Hrs of Lab/Perfecto Results Last 24 Hrs of Labs/Mics: Laboratory Tests 10/23/16 0833: Anion Gap 13, Estimated GFR > 60, BUN/Creatinine Ratio 34.0 H, CBC w Diff NO MAN DIFF REQ, RBC 3.32 L, MCV 85.5, MCH 27.8, RDW 17.2 H, MPV 7.0 L, Gran % 76.4 H, Lymphocytes % 9.2 L, Monocytes % 10.3 H, Eosinophils % 3.6, Basophils % 0.5, Absolute Granulocytes 8.9 H, Absolute Lymphocytes 1.1 L, Absolute Monocytes 1.2 H, Absolute Eosinophils 0.4, Absolute Basophils 0.1, PUBS MCHC 32.5 L Assessment/Plan Assessment: Patient is a 71-year-old male with past medical history of History of coronary artery disease status post CABG, hypertension, hyperlipidemia, diabetes mellitus , abdominal AAA s/p repair leading to spinal shock, previous admission for urosepsis vs. possible sacral decubitus osteomyelitis, Paraplegia and sacral decubitus ulcers status post debridement, neurogenic bladder, Prostate cancer. Patient was in brought into [facility] due to nonhealing deep sacral and coccygeal decubitus ulcer with MRI findings suggestive of osteomyelitis. Patient also reported fever and chills. # Sepsis most likely 2/2 sacral ulcer Patient presented with fever, maximum temperature 100.1 in the ED, pulse rate of 109, elevated WBC of 20.0. Recent MRI of the pelvis suggested possible osteomyelitis. Patient was initially placed on IV vanc and Fortaz which have been discontinued after 3 days per ID rec. Sepsis has resolved. 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 MRI done on Oct 09 that showed large decubitus ulcer extending to the coccyx with marrow edema and enhancement, and possible osteomyelitis. Patient is status post debridement of the necrotic soft tissue overlying the sacrum and coccyx on 10/22/16. Culture of the tissue is growing alpha strep and GNR (10/23/16). Patient currently remains HDS and afebrile with WBC trending down. * Surgery on board, patient to get debridement tomorrow, currently nothing by mouth overnight for the procedure. * Follow wound care recs * Start Ceftriaxone 2 g IV QD and Flagyl 500 mg IV Q8 * PICC line placement for senior care abx # History of recurrent UTIs with chronic indwelling Zheng catheter UA on admission: turbid, high in protein, positive nitrite, large leukocyte esterase, packed with WBCs, many granular casts, moderate amount of urine hemoglobin. No growth identified in Ucx. Regardless patient received 3 days of IV vanc and Fortaz for osteomyleitis. * Discontinue zheng cath * straight catheterization or suprapubic cystostomy (ideally on this admission) # History of hypertension * Continue amlodipine # History of hyperlipidemia * Continue statin # History of CAD * Continue aspirin # History of diabetes * NovoLog sliding scale according to Accu-Cheks # History of GERD * Cont Prilosec - Heart healthy diet - DVTppx: Subcutaneous heparin - Mild pain pathway - DNR/I Problem List: 1. Osteomyelitis 2. Hypertension 3. Hyperlipidemia 4. CAD (coronary artery disease) 5. Bacteremia 6. S/P CABG (coronary artery bypass graft) Pain Ratin Pain Location: Back Pain Goal: Pain 4 or less Pain Plan: Mild pain pathway Tomorrow's Labs & Rationales: CBC BEP
--- NOTE | 2016-10-23 07:39 | PN- Att Addend ---
Attending Addendum Attending Brief Note Current Medications Sig/Mey Start time Last Medication Dose Route Stop Time Status Admin Acetaminophen 650 MG Q6P PRN 10/18 2015 AC 10/21 PO 1703 Acetaminophen 1,000 MG Q8P PRN 10/18 2015 AC IV Alprazolam 0.5 MG TID PRN 10/18 2030 AC 10/19 PO 10/25 202 0006 Aspirin 81 MG DAILY 10/19 1000 AC 10/22 PO 1402 Atorvastatin Calcium 80 MG 1700 10/18 2030 AC 10/22 PO 1715 Budesonide/ 2 PUF BID 10/18 2209 AC 10/22 Formoterol Fumarate INH 2136 Clonazepam 0.5 MG QPM 10/18 2200 AC 10/22 PO 10/25 215 2136 Dextrose/Sodium 1,000 ML Q13H 10/19 1945 AC 10/22 Chloride IV 1402 Enoxaparin Sodium 40 MG DAILY 10/19 1000 AC 10/22 SC 1402 Fentanyl Citrate 100 MCG .STK-MED ONE 10/22 1052 DC IM 10/22 1053 Fluticasone 2 SPRAY DAILY PRN 10/18 2030 AC Propionate MARIA ANTONIA Furosemide 20 MG Q48H 10/19 1000 AC 10/21 PO 0911 Guaifenesin 10 ML Q4H PRN 10/18 2030 AC 10/22 PO 2136 Insulin Aspart 0 TIDAC/HS 10/19 08 AC 10/22 SC 1715 Magnesium Hydroxide 30 ML DAILY PRN 10/18 2030 AC PO Melatonin 5 MG AT BEDTIME 10/18 2200 AC 10/22 PO 2135 Metoprolol Tartrate 25 MG BID 10/18 2200 AC 10/22 PO 2135 Midazolam HCl 2 MG .STK-MED ONE 10/22 1052 DC IM 10/22 1053 Omeprazole 20 MG DAILY AC 10/19 07 AC 10/23 PO 0614 Oxycodone HCl 5 MG Q6H PRN 10/18 2015 AC 10/22 PO 2136 Sodium Hypochlorite 1 HILARIA BID 10/19 1442 10/21 TOP 2143 Microbiology Date/Time Procedure - Status Source Growth 10/22 1211 Culture & Sensitivity - RECD TRUNK/O.R. 10/22 1211 Gram Stain - RECD TRUNK/O.R. 10/22 1158 Gross Specimen Examination - CAN EXTREMITIE Cancelled: 10/22 1158 Gram Stain - CAN EXTREMITIE Cancelled: Covering attending note. Patient is comfortable resting in bed Off antibiotics patient's last decubitus ulcer currently off antibiotics being followed up waiting for biopsy report for osteomyelitis if is positive will treat patient IV antibiotics if it's negative the vaginal discharge patient to [facility] facility for further wound management and follow-up with the doctor globular for further management in the hospital.
[2016-10-23 08:21] VITALS: BP 124/60
--- NOTE | 2016-10-23 08:42 | Discharge Summary ---
Visit Information Visit Dates Admission Date: 10/18/16 Discharge Date: 10/26/16 Hospital Course Course Attending Physician: ADRIANNE COLE MD Primary Care Physician: ADRIANNE COLE MD Consulting Request: Consulting Specialty: General Surgery Hospital Course: Patient is 71[facility]-old [facility] resident with past medical history significant for paraplegia following spinal shock after surgery for an abdominal aortic aneurysm 4 years ago, indwelling Boston's catheter since then, history of nonhealing sacral decubitus ulcer with underlying osteomyelitis treated with 2 courses of antibiotics most recent is 100 half years prior to his admission, on recent MRI revealing bone marrow edema and enhancement with large sacral decubitus ulcer extending to the bone concerning for osteomyelitis admitted with several days of low-grade fever, chills, nausea and dry heaves with decreased by mouth intake. On admission he had a low-grade fever of 100.1. Laboratory data revealed a white blood cell count of 20,000, ESR 121, BUN/creatinine 25 and 0.7, lactic acid 2.7, with normal liver enzymes. Urinalysis packed WBCs. Chest x-ray revealed bibasilar airspace opacities. Patient was admitted onto the medical floor and following issues were addressed Problem #1 sepsis most likely secondary to decubitus ulcer Currently being treated with IV Unasyn which [facility] at the [facility] 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 Plan is for diverting colostomy to help improve chances of wound healing. Surgery is scheduled for Saturday, 2016, however patient is suspected to be admitted at [facility] on October 30 for bowel prep. The colorectal surgeonis Dr. Irizarry, please call his office to have the patient's name placed on it. He will need long-term antibiotics and a PICC line has been placed. Will need weekly ESR follow up. Biopsy results came back positive for 1. ALPHA STREP 2. ESCHERICHIA COLI 3. BACTEROIDES PROB FRAGILIS 4. BACTEROIDES SPECIES- B. capillosus Problem #3 history of frequent UTIs with chronic indwelling Boston's catheter Culture came back positive for gram-negative rods and gram-positive cocci suggestive of contamination. Plan is for a suprapubic catheter at the same time as the diverting cholecystectomy surgery. Problem #4 history of hypertension Patient was continued on his home medications during hospital stay and we will discharge him on same Problem #5 history of hyperlipidemia and CAD Patient was continued on his home medications of statins and aspirin and we will discharge patient on same Problem #6 history of diabetes Patient was kept on Accu-Cheks and was given NovoLog according to sliding scale Problem #7 history of GERD Continued his home dose of proton pump inhibitors Complications: none Allergies: Coded Allergies: NO KNOWN ALLERGIES (10/18/16) Significant Procedures: Operative/Inv Procedure Report Surgery Date: 10/22/16 Name of Procedure: Debride sacral wound including ostectomy Pre-Operative Diagnosis: Chronic sacral wound secondary to paraplegia Post-Operative Diagnosis: Same Estimated Blood Loss: scant Surgeon/Buckle Sorter: adrianne gomez md Anesthesia: local monitored anesthesi Operative/Procedure Note Note: Patient has a chronic sacral wound secondary to pressure from paraplegia following aortic surgery. There is foul odor and overlying soft tissue necrosis we discussed the risks which included bleeding and infection. He was brought to the operating room and sedated. He was turned right side down. Buttock was prepped and draped in usual fashion. Extensive debridement of a significant amount of overlying necrotic soft tissue was excised clinical osteomyelitis is present. The coccyx was debrided away as well as the distal portion of the sacrum. This was sent for micro and path analysis. The wound was made hemostatic and packed. Pertinent Lab Results: Laboratory Tests 10/26 0545 Hematology CBC w Diff NO MAN DIFF REQ WBC (4.8 - 10.8 /CUMM) 12.4 H RBC (4.70 - 6.10 /CUMM) 3.32 L Hgb (14.0 - 18.0 G/DL) 9.3 L Hct (42 - 52 %) 28.5 L MCV (80.0 - 94.0 FL) 86.0 MCH (27.0 - 31.0 PG) 27.9 RDW (11.5 - 14.5 %) 17.6 H Plt Count (130 - 400 /CUMM) 624 H MPV (7.4 - 10.4 FL) 7.1 L Gran % (42.2 - 75.2 %) 70.6 Lymphocytes % (20.5 - 51.1 %) 12.1 L Monocytes % (1.7 - 9.3 %) 12.0 H Eosinophils % (0 - 5 %) 5.1 H Basophils % (0.0 - 2.0 %) 0.2 Absolute Granulocytes (1.4 - 6.5 /CUMM) 8.8 H Absolute Lymphocytes (1.2 - 3.4 /CUMM) 1.5 Absolute Monocytes (0.10 - 0.60 /CUMM) 1.5 H Absolute Eosinophils (0.0 - 0.7 /CUMM) 0.6 Absolute Basophils (0.0 - 0.2 /CUMM) 0 PUBS MCHC (33.0 - 37.0 G/DL) 32.4 L Disposition Summary Disposition Principal Diagnosis: Stage IV decubitus ulcer/osteomyelitis Additional Diagnosis: Diabetes mellitus Discharge Disposition: SNF Discharge Instructions General Discharge Information Code Status: Do Not Resucitate/Intubat Patient's Diet: Heart healthy diet Patient's Activity: As tolerated with assistive Follow-Up Instructions/Appts: Very importantPlease Call Dr. Irizarry's office at latest on Saturday10/29/2016 to have the patient's name placed on the surgical list for 10/31/2016. He will then need to be admitted to [facility] on 10/30/2016 for bowel prep prior to surgery. Please follow-up with your primary care physician in one week of discharge Please follow-up with plastic surgery Dr. Jung as outpatient within 1 week of discharge Weekly ESR checks Please stop Lovenox the day before the surgery (tentatively scheduled for ) Please continue to use quarter strength Dakin's moistened gauze wound dressing to be changed twice daily. Medications at Discharge Discharge Medications: Continue taking these medications: Aspirin (Children's Aspirin) 81 MG TAB.CHEW 1 Tablet ORAL DAILY Days = 30 Comments: Last Taken: 01/25/15 Time: 09:53 A.M Baclofen (Lioresal) 10 MG TABLET 1 Tablet ORAL Every Morning Days = 30 Comments: Last Taken: 01/25/15 Time: 09:53 A.M Rosuvastatin Calcium (Crestor) 20 MG TABLET 1 Tablet ORAL DAILY Days = 30 Comments: Last Taken: 01/25/16 Time: 8:05 P.M TOOK LIPITOR INSTEAD. Furosemide (Lasix) 20 MG TABLET 1 Tablet ORAL Every other day Days = 30 Comments: Last Taken: 01/25/15 Time: 09:53 A.M Multivitamin (Multiple Vitamins) 1 EACH TABLET 1 Tablet ORAL Every Morning Days = 30 Comments: Last Taken: 01/25/15 Time: 09:53 A.M Cyanocobalamin (Vitamin B12) 1,000 MCG TAB 1 Tablet ORAL Every Morning Days = 30 Comments: Last Taken: 01/25/15 Time: 09:53 A.M MOMETASONE/FORMOTEROL (Dulera 100 Mcg/5 Mcg Inhaler) 100 MCG-5 MCG/ACTUATION HFA.AER.AD 2 Puff Inhale through mouth TWICE DAILY Qty = 3 Comments: Last Taken: NOT GIVEN IN HOSP Time: Insulin Aspart, Recombinant (Novolog) 100 U/ML DARRON 0 Units Inject into fatty tissue As Directed Instructions: BLOOD SUGAR # OF UNITS < 80 NONE 80-150 NONE 151-200 4 UNITS 201-250 6 UNITS 251-300 8 UNITS 301-350 10 UNITS 351-400 12 UNITS >400 14 UNITS and call MD Comments: Last Taken: 01/25/15 Time: 12:00 P.M W-10 [facility] SATURDAY AC & SATURDAY 4:30PM SLIDING SCALE METFORMIN HCL (Metformin) 1,000 MG TABLET 1 Tablet ORAL TWICE DAILY Comments: Last Taken: NOT GIVEN IN HOSP Time: Metoprolol Tartrate (Lopressor) 25 MG TABLET 1 Tablet ORAL TWICE DAILY Comments: Last Taken:NOT GIVEN IN HOSP Time: OXYCODONE HCL/ACETAMINOPHEN (Percocet 7.5-325 MG Tablet) 325 MG/7.5 MG TAB 1 Tablet ORAL Q6H Comments: Last Taken: 01/25/15 Time: 11:59 a.m Melatonin (Melatonin) 5 MG TAB.SUBL 1 Tablet ORAL TAKE AT BEDTIME Comments: Last Taken: 01/24/15 Time: 08:05 P.M Clonazepam (Klonopin) 0.5 MG TABLET 1 Tablet ORAL Every night Comments: Last Taken: NOT GIVEN IN HOSP Time: Protein Supplement (Promod) 946 ML LIQUID 30 Milliliters ORAL DAILY Comments: PER MAR Omeprazole (Omeprazole) 20 MG TABLET.DR 1 Tablet ORAL DAILY Comments: PER MAR [place]-3 Fatty Acids ([place]-3) 1,000 MG CAPSULE 1 Capsule ORAL DAILY Comments: PER MAR Saccharomyces Boulardii (Florastor) (Unknown Strength) CAPSULE 1 Capsule ORAL DAILY Comments: PER MAR Potassium Chloride (Potassium Chloride) 20 MEQ TAB.ER.PRT 1 Tablet ORAL DAILY Qty = 30 Comments: PER DEC Psyllium Husk (Metamucil) 3.4 GRAM/5.4 GRAM POWDER 3.4 Gram ORAL DAILY Comments: PER DEC Dextran 70/Hypromellose (Artificial Tears) 1 EACH DROPERETTE 1 DROP OPHTHALMIC THREE TIMES DAILY as needed for BOTH EYES Comments: PER DEC Fluticasone Propionate (Flonase Allergy Relief) 50 MCG/ACTUATION SPRAY.SUSP 2 [place] Both sides of nose DAILY as needed for NASAL CONGESTION Comments: PER DEC Acetaminophen (Acephen) 650 MG SUPP.RECT 1 SUPPOSITORY RECTALLY Q4H as needed for PAIN/TEMP>/100 Comments: PER DEC NTE 3GM/24H Acetaminophen (Acetaminophen) 325 MG CAPSULE 2 Capsule ORAL Q4H as needed for PAIN/TEMP>/100 Comments: PER DEC NTE 3GM/24H Na Phos,M-B/Na Phos,Di-Ba (Fleet Enema) 19 GRAM-7 GRAM/118 ML ENEMA 1 Enema RECTAL DAILY as needed for CONSTIPATION Comments: PER DEC IF BISACODYL INEFFECTIVE Bisacodyl (Bisacodyl) 10 MG SUPP.RECT 1 Suppository RECTAL as needed for CONSTIPATION Comments: PER DEC IF MOM INEFFECTIVE Magnesium Hydroxide (Milk Of Magnesia) 400 MG/5 ML ORAL.SUSP 30 Milliliters ORAL DAILY as needed for CONSTIPATION Comments: PER DEC Calcium Carbonate (Calcium) 500 MG CALCIUM (1,250 MG) TAB.CHEW 2 Tablet ORAL Q8H as needed for GI DISCOMFORT Comments: PER DEC Alprazolam (Alprazolam) 0.5 MG TABLET 1 Tablet ORAL Q8H as needed for ANXIETY Comments: PER DEC Guaifenesin (Q-Tussin) 100 MG/5 ML LIQUID 10 Milliliters ORAL Q4H as needed for COUGH Comments: PER DEC Start taking the following new medications: Dakins Solution (Dakin's) 0.25 % SOLUTION 1 Application On the skin TWICE DAILY Days = 14 No Refills Instructions: Apply to sacral ulcer twice a day. Oxybutynin Chloride (Oxybutynin Chloride) 5 MG TABLET 2.5 Milligram ORAL TWICE DAILY Days = 14 No Refills Copies To: ADRIANNE COLE MD, MD Review Statement Documenting Attending: ADRIANNE COLE MD
[2016-10-23 09:19] LABS: ABSOLUTE BASOPHIL COUNT 0.1 /CUMM (0.0-0.2); ABSOLUTE EOSINOPHIL COUNT 0.4 /CUMM (0.0-0.7); ABSOLUTE GRANULOCYTE CT 8.9 /CUMM (1.4-6.5); ABSOLUTE LYMPH COUNT 1.1 /CUMM (1.2-3.4); ABSOLUTE MONOCYTE COUNT 1.2 /CUMM (0.10-0.60); BASOPHIL % 0.5 % (0.0-2.0); EOSINOPHIL % 3.6 % (0-5); GRANULOCYTE % 76.4 % (42.2-75.2); HEMATOCRIT 28.4 % (42-52); MEAN CORPUSCULAR HGB 27.8 PG (27.0-31.0); MEAN CORPUSCULAR HGB CONC 32.5 G/DL (33.0-37.0); MEAN CORPUSCULAR VOLUME 85.5 FL (80.0-94.0); PLATELET COUNT 615 /CUMM (130-400); RBC DISTRIBUTION WIDTH 17.2 % (11.5-14.5); RED BLOOD CELL CT 3.32 /CUMM (4.70-6.10); WHITE BLOOD CELL COUNT 11.7 /CUMM (4.8-10.8)
--- NOTE | 2016-10-23 11:55 | NUR ---
Physical Therapy: Consut received and chart reviewed. Pt lives at [facility] and is a Llu lift at baseline due to BLE paralysis. Acute skilled PT not indicated at this time. Spoke with referring MD to cancel order.
--- NOTE | 2016-10-23 14:12 | PN- Infect Dx ---
Subjective Subjective: Afebrile without complaints Objective Last 24 Hrs of Vital Signs/I&O Vital Signs Date Time Temp Pulse Resp B/P Pulse O2 O2 Flow FiO2 Ox Delivery Rate 10/23 0943 120/60 10/23 0821 98.3 74 20 124/60 92 Room Air 10/22 2330 98.8 81 20 140/60 93 10/22 2135 80 132/58 10/22 1645 98.2 88 18 120/64 93 Nasal Cannula Intake & Output 10/23 1600 10/23 0800 10/23 0000 Intake Total 400 1300 Output Total 1450 1000 Balance -1050 300 Intake, IV 400 400 Intake, Oral 900 Output, Urine 1450 1000 Physical Exam Other Physical Findings: He appears comfortable in no acute distress Back dressing intact The remainder of his exam is unchanged Results Last 24 Hours of Lab Results: Laboratory Tests 10/23 832 Chemistry Sodium (137 - 145 mmol/L) 136 L Potassium (3.5 - 5.1 mmol/L) 4.6 Chloride (98 - 107 mmol/L) 93 L Carbon Dioxide (22 - 30 mmol/L) 31 H Anion Gap (5 - 16) 13 BUN (9 - 20 mg/dL) 17 Creatinine (0.7 - 1.2 mg/dL) 0.5 L Estimated GFR (>60 ml/min) > 60 BUN/Creatinine Ratio (7 - 25 %) 34.0 H Hematology CBC w Diff NO MAN DIFF REQ WBC (4.8 - 10.8 /CUMM) 11.7 H RBC (4.70 - 6.10 /CUMM) 3.32 L Hgb (14.0 - 18.0 G/DL) 9.2 L Hct (42 - 52 %) 28.4 L MCV (80.0 - 94.0 FL) 85.5 MCH (27.0 - 31.0 PG) 27.8 RDW (11.5 - 14.5 %) 17.2 H Plt Count (130 - 400 /CUMM) 615 H MPV (7.4 - 10.4 FL) 7.0 L Gran % (42.2 - 75.2 %) 76.4 H Lymphocytes % (20.5 - 51.1 %) 9.2 L Monocytes % (1.7 - 9.3 %) 10.3 H Eosinophils % (0 - 5 %) 3.6 Basophils % (0.0 - 2.0 %) 0.5 Absolute Granulocytes (1.4 - 6.5 /CUMM) 8.9 H Absolute Lymphocytes (1.2 - 3.4 /CUMM) 1.1 L Absolute Monocytes (0.10 - 0.60 /CUMM) 1.2 H Absolute Eosinophils (0.0 - 0.7 /CUMM) 0.4 Absolute Basophils (0.0 - 0.2 /CUMM) 0.1 PUBS MCHC (33.0 - 37.0 G/DL) 32.5 L Last 24 Hours of Perfecto Results: OR culture October 22 labeled sacral bone positive for gram-negative rods and alpha strep Blood cultures 2 October 18 negative Assessment/Plan Impression: Stable, with temperatures remaining normal and white blood cell count decreasing off antibiotics, status post debridement of the necrotic soft tissue overlying the sacrum as well as the coccyx and distal portion of the sacrum for what appears to be a polymicrobial osteomyelitis, with preliminary OR cultures positive for gram negative rods and alpha strep. There may also be an anaerobic component given the foul odor reported; therefore would cover anaerobes as well as the organisms isolated pending final cultures. He will require a four-week course of IV antibiotics. He has had a long term care social worker indwelling Boston catheter, but , as previously discussed, alternatives, such as straight catheterization or suprapubic cystostomy, should be considered. Suggestion: 1. Would obtain a baseline ESR 2. Follow-up final cultures 3. Proceed with placement of a PICC 4. Would pursue alternatives to a Boston catheter, such as straight catheterization or suprapubic cystostomy (ideally on this admission) 5. Begin Ceftriaxone 2 g IV every 24 hours and Flagyl 500 mg IV every 8 hours pending above
--- NOTE | 2016-10-23 16:41 | Cons- General Surgery ---
General Information and HPI Consulting Request Date of Consult: 10/23/16 Requested By: SLIM COLE MD Reason for Consult: fecal diversion / complex perianal wound Source of Information: patient History of Present Illness: 71-year-old paraplegic with fecal incontinence and stage IV sacral decubitus Allergies/Medications Allergies: Coded Allergies: NO KNOWN ALLERGIES (10/18/16) Home Med List: Acetaminophen (Acephen) 650 MG SUPP.RECT 1 SUPP DE Q4H PRN PAIN/TEMP>/100 ( Reported) Acetaminophen 325 MG CAPSULE 2 CAP PO Q4H PRN PAIN/TEMP>/100 (Reported) Alprazolam 0.5 MG TABLET 1 TAB PO Q8H PRN ANXIETY (Reported) Aspirin (Children's Aspirin) 81 MG TAB.CHEW 1 TAB PO DAILY HEART HEALTH ( Reported) Baclofen (Lioresal) 10 MG TABLET 1 TAB PO QAM MUSCLE RELAXER (Reported) Bisacodyl 10 MG SUPP.RECT 1 SUP RC PRN CONSTIPATION (Reported) Calcium Carbonate (Calcium) 500 MG CALCIUM (1,250 MG) TAB.CHEW 2 TAB PO Q8H PRN GI DISCOMFORT (Reported) Clonazepam (Klonopin) 0.5 MG TABLET 1 TAB PO QPM SLEEP (Reported) Cyanocobalamin (Vitamin B12) 1,000 MCG TAB 1 TAB PO QAM SUPPLEMENT (Reported) Dextran 70/Hypromellose (Artificial Tears) 1 EACH DROPERETTE 1 DROP OP TID PRN BOTH EYES (Reported) Fluticasone Propionate (Flonase Allergy Relief) 50 MCG/ACTUATION SPRAY.SUSP 2 SPRAY NASB DAILY PRN NASAL CONGESTION (Reported) Furosemide (Lasix) 20 MG TABLET 1 TAB PO EOD DIURETIC (Reported) Guaifenesin (Q-Tussin) 100 MG/5 ML LIQUID 10 ML PO Q4H PRN COUGH (Reported) Insulin Aspart, Recombinant (Novolog) 100 U/ML DARRON 0 UNITS SC AD GLUCOSE CONTROL (Reported) BLOOD SUGAR # OF UNITS < 80 NONE 80-150 NONE 151-200 4 UNITS 201-250 6 UNITS 251-300 8 UNITS 301-350 10 UNITS 351-400 12 UNITS >400 14 UNITS and call Magnesium Hydroxide (Milk Of Magnesia) 400 MG/5 ML ORAL.SUSP 30 ML PO DAILY PRN CONSTIPATION (Reported) Melatonin 5 MG TAB.SUBL 1 TAB PO QHS SLEEP (Reported) METFORMIN HCL (Metformin) 1,000 MG TABLET 1 TAB PO BID DIABETES (Reported) Metoprolol Tartrate (Lopressor) 25 MG TABLET 1 TAB PO BID BP/HEART (Reported) MOMETASONE/FORMOTEROL (Dulera 100 Mcg/5 Mcg Inhaler) 100 MCG-5 MCG/ACTUATION HFA.AER.AD 2 PUF INH BID UNKNOWN (Reported) Multivitamin (Multiple Vitamins) 1 EACH TABLET 1 TAB PO QAM SUPPLEMENT ( Reported) Na Phos,M-B/Na Phos,Di-Ba (Fleet Enema) 19 GRAM-7 GRAM/118 ML ENEMA 1 E RC DAILY PRN CONSTIPATION (Reported) [place]-3 Fatty Acids ([place]-3) 1,000 MG CAPSULE 1 CAP PO DAILY SUPPLEMENT ( Reported) Omeprazole 20 MG TABLET.DR 1 TAB PO DAILY GI (Reported) OXYCODONE HCL/ACETAMINOPHEN (Percocet 7.5-325 MG Tablet) 325 MG/7.5 MG TAB 1 TAB PO Q6H PAIN (Reported) Potassium Chloride 20 MEQ TAB.ER.PRT 1 TAB PO DAILY SUPPLEMENT (Reported) Protein Supplement (Promod) 946 ML LIQUID 30 ML PO DAILY SUPPLEMENT (Reported ) Psyllium Husk (Metamucil) 3.4 GRAM/5.4 GRAM POWDER 3.4 GM PO DAILY GI ( Reported) Rosuvastatin Calcium (Crestor) 20 MG TABLET 1 TAB PO DAILY CHOLESTEROL ( Reported) Saccharomyces Boulardii (Florastor) (Unknown Strength) CAPSULE 1 CAP PO DAILY SUPPLEMENT (Reported) Current Medications: Current Medications Sig/Mey Start time Last Medication Dose Route Stop Time Status Admin Acetaminophen 650 MG Q6P PRN 10/18 2015 AC 10/21 PO 1703 Acetaminophen 1,000 MG Q8P PRN 10/18 2015 AC IV Alprazolam 0.5 MG TID PRN 10/18 2030 AC 10/23 PO 10/25 2028 0805 Aspirin 81 MG DAILY 10/19 1000 AC 10/23 PO 0943 Atorvastatin Calcium 80 MG 1700 10/18 2030 AC 10/22 PO 1715 Budesonide/ 2 PUF BID 10/18 2209 AC 10/23 Formoterol Fumarate INH 0942 Ceftriaxone Sodium 2,000 MG DAILY 10/23 141 AC IV Clonazepam 0.5 MG QPM 10/18 2200 AC 10/22 PO 10/25 Dextrose/Sodium 1,000 ML Q13H 10/19 1945 DC 10/23 Chloride IV 0941 Enoxaparin Sodium 40 MG DAILY 10/19 1000 AC 10/23 SC 0951 Fluticasone 2 SPRAY DAILY PRN 10/18 2030 AC Propionate MARIA ANTONIA Furosemide 20 MG Q48H 10/19 1000 AC 10/23 PO 0943 Guaifenesin 10 ML Q4H PRN 10/18 2030 AC 10/22 PO 2136 Insulin Aspart 0 TIDAC/HS 10/19 0800 AC 10/23 SC 1237 Magnesium Hydroxide 30 ML DAILY PRN 10/18 2030 AC PO Melatonin 5 MG AT BEDTIME 10/18 220 AC 10/22 PO 2135 Metoprolol Tartrate 25 MG BID 10/18 220 AC 10/23 PO 0943 Metronidazole 500 MG IQ8 10/23 1600 AC N/A 1 UNIT IV Omeprazole 20 MG DAILY AC 10/19 0700 AC 10/23 PO 0614 Oxycodone HCl 5 MG Q6H PRN 10/18 2015 AC 10/23 PO 1552 Sodium Hypochlorite 1 HILARIA BID 10/19 1442 AC 10/23 TOP 0943 Past History Medical History Neurological: PARAPLEGIA STATUS POST SPINAL SHOCK POSTOP Cardiovascular: CAD, hypertension, hyperlipidemia, ABDOMINAL ANEURYSM Respiratory: asthma Gastrointestinal: GERD Renal: neurogenic bladder, UTI Musculoskeletal: decubitis ulcer (OSTEOMYELITIS) Psychiatric: anxiety, depression Endocrine: DIABETES TYPE 2 Cancer(s): prostate cancer Surgical History Pertinent Surgical History: AAA repair x2 once 2002, and 2013 Family History Relations & Conditions If Any: MOTHER FH: coronary artery disease FH: diabetes mellitus BROTHER FH: diabetes mellitus SISTER Psychosocial History Where Do You Live? Alf Facility Services at Home: Nursing Primary Language: Nigerien Smoking Status: Former Smoker ETOH Use: denies use Illicit Drug Use: denies illicit drug use Functional Ability ADLs Independent: eating. Needs Assist: dressing, toileting, bathing. Ambulation: non-ambulatory IADLs Needs Assist: shopping, housework, finances, food prep, telephone, transportation, medication admin. Exam & Diagnostic Data Vital Signs and I&O Vital Signs Date Time Temp Pulse Resp B/P Pulse O2 O2 Flow FiO2 Ox Delivery Rate 10/23 0943 120/60 10/23 0821 98.3 74 20 124/60 92 Room Air 10/22 2330 98.8 81 20 140/60 93 10/22 2135 80 132/58 10/22 1645 98.2 88 18 120/64 93 Nasal Cannula Intake & Output 10/23 0810/23 0000 10/22 0000 Intake Total 0028 261 9874 400 300 510 Output Total 1900 1450 1000 480 926 4278 Balance -100 -1050 300 -100 -500 -1340 Intake, IV 400 400 400 300 150 Intake, Oral 1800 900 360 Number 1 1 Bowel Movements Output, Stool 0 Output, Urine 1900 1450 1000 [phone] Physical Exam General Appearance: well developed/nourished, no apparent distress, alert, awake , comfortable Head: atraumatic Eyes: Bilateral: PERRL. Neck: normal inspection Respiratory: no respiratory distress Gastrointestinal: normal bowel sounds, soft, no organomegaly Neurologic/Psych: awake, alert, oriented x 3, motor/sensory deficits Other Physical Findings: [place] obese Paraplegic Sacral and ischeal decubiti with fecal soiling Last 24 Hours of Labs: Laboratory Tests 10/23 832 Chemistry Sodium (137 - 145 mmol/L) 136 L Potassium (3.5 - 5.1 mmol/L) 4.6 Chloride (98 - 107 mmol/L) 93 L Carbon Dioxide (22 - 30 mmol/L) 31 H Anion Gap (5 - 16) 13 BUN (9 - 20 mg/dL) 17 Creatinine (0.7 - 1.2 mg/dL) 0.5 L Estimated GFR (>60 ml/min) > 60 BUN/Creatinine Ratio (7 - 25 %) 34.0 H Hematology CBC w Diff NO MAN DIFF REQ WBC (4.8 - 10.8 /CUMM) 11.7 H RBC (4.70 - 6.10 /CUMM) 3.32 L Hgb (14.0 - 18.0 G/DL) 9.2 L Hct (42 - 52 %) 28.4 L MCV (80.0 - 94.0 FL) 85.5 MCH (27.0 - 31.0 PG) 27.8 RDW (11.5 - 14.5 %) 17.2 H Plt Count (130 - 400 /CUMM) 615 H MPV (7.4 - 10.4 FL) 7.0 L Gran % (42.2 - 75.2 %) 76.4 H Lymphocytes % (20.5 - 51.1 %) 9.2 L Monocytes % (1.7 - 9.3 %) 10.3 H Eosinophils % (0 - 5 %) 3.6 Basophils % (0.0 - 2.0 %) 0.5 Absolute Granulocytes (1.4 - 6.5 /CUMM) 8.9 H Absolute Lymphocytes (1.2 - 3.4 /CUMM) 1.1 L Absolute Monocytes (0.10 - 0.60 /CUMM) 1.2 H Absolute Eosinophils (0.0 - 0.7 /CUMM) 0.4 Absolute Basophils (0.0 - 0.2 /CUMM) 0.1 PUBS MCHC (33.0 - 37.0 G/DL) 32.5 L Assessment/Plan Assessment/Plan Is a 71-year-old gentleman who is morbidly obese. He is paraplegic following surgery several years ago. He has history of persistent/recurrent pressure ulcers and has fecal incontinence. Patient currently has complex stage IV decubiti with constant fecal soiling. Patient has been seen by plastic surgery and is cared for chronically by the wound center, both of which occur with me that the patient would benefit from fecal diversion My plan is to do a laparoscopic end colostomy for fecal diversion and to assist with wound care and healing. I will have stoma nursing /therapy see the patient preop for stoma marking Problem List: 1. Paraplegia 2. Osteomyelitis Copies To: RENAY MULLIGAN,SVITLANA Coleman; KELSEY MULLIGAN,LSIM Avalos; ARPAN MULLIGAN,SLIM Edmonds Consult Acknowledgment - Thank you for your consult request.
[2016-10-23 16:42] VITALS: BP 122/72
[2016-10-23 23:30] VITALS: BP 123/53
--- NOTE | 2016-10-24 06:27 | PN- Housestaff ---
Subjective Follow-up For: Sepsis due to stage IV decubitus sacral ulcer Bacteremia Osteomyelitis Subjective: Patient seen and examined at bedside. No acute events reported overnight. Remains HDS and afebrile. Resting comfortably in bed. Alert, awake and oriented x 3. No acute distress. No acute complaints. Denies any respiratory or urinary sxs. No chest pain, palpitations. No n/v/c/d/f/c. Review of Systems Constitutional: Reports: see HPI. Objective Last 24 Hrs of Vital Signs/I&O Vital Signs Date Time Temp Pulse Resp B/P Pulse O2 O2 Flow FiO2 Ox Delivery Rate 10/24 0933 83 120/58 10/24 0800 97.4 83 20 120/58 94 Room Air 10/23 2330 98.7 94 18 123/53 91 Room Air 10/23 2155 78 120/80 10/23 1642 97.4 82 21 122/72 94 Room Air Intake & Output 10/24 1600 10/24 0800 10/24 0000 Intake Total 730 480 Output Total 500 1200 Balance 230 -720 Intake, IV 130 Intake, Oral 600 480 Number 1 Bowel Movements Output, Urine 500 1200 Physical Exam General Appearance: Alert, Oriented X3, Cooperative, No Acute Distress Other Physical Findings: Skin there is a large 10x10 cm in the lower lumbar area and coccyx, stage 4 ( extending into the bone), there is foul smelling discharge from the ulcer and there is necrotic tissue in the edges and inside the wound. HEENT Atraumatic, PERRLA, EOMI, Mucous Membr. moist/pink Neck Supple, No JVD Cardiovascular Regular Rate, Normal S1, Normal S2, No Murmurs Lungs Clear to Auscultation, Normal Air Movement Abdomen No Masses, decreased bowel sounds, No sensation from below the chest wall Neurological Normal Speech, Cranial Nerves 3-12 NL, forces 0/5 in bilateral LE, 5/5 forces on both upper extremities, sensory deficit from below the chest wall (T8-T9 level) Extremities No Clubbing, No Cyanosis, Normal Pulses, 1+ pitting edema on the right lower extremity Vascular Normal Pulses, Pulses Symmetrical Current Medications: Current Medications Sig/Mey Start time Last Medication Dose Route Stop Time Status Admin Acetaminophen 650 MG Q6P PRN 10/18 2015 AC 10/21 PO 1703 Acetaminophen 1,000 MG Q8P PRN 10/18 2015 AC IV Alprazolam 0.5 MG TID PRN 10/18 2030 AC 10/23 PO 10/25 202 0805 Ampicillin Sodium/ 3,000 MG Q6 10/24 1800 AC Sulbactam Sodium IV Sodium Chloride 100 ML Aspirin 81 MG DAILY 10/19 1000 AC 10/24 PO 1237 Atorvastatin Calcium 80 MG 1700 10/18 2030 AC 10/23 PO 1652 Budesonide/ 2 PUF BID 10/18 2209 AC 10/24 Formoterol Fumarate INH 0927 Ceftriaxone Sodium 2,000 MG DAILY 10/23 1415 DC 10/24 IV 0927 Clonazepam 0.5 MG QPM 10/18 2200 AC 10/23 PO 10/25 215 2155 Enoxaparin Sodium 40 MG DAILY 10/19 1000 AC 10/24 SC 0927 Fluticasone 2 SPRAY DAILY PRN 10/18 2030 AC Propionate MARIA ANTONIA Furosemide 20 MG Q48H 10/19 1000 AC 10/23 PO 0943 Guaifenesin 10 ML Q4H PRN 10/18 2030 AC 10/23 PO 2213 Insulin Aspart 0 TIDAC/HS 10/19 0800 AC 10/24 SC 1237 Magnesium Hydroxide 30 ML DAILY PRN 10/18 2030 AC PO Melatonin 5 MG AT BEDTIME 10/18 2200 AC 10/23 PO 2155 Metoprolol Tartrate 25 MG BID 10/18 2200 AC 10/24 PO 0933 Metronidazole 500 MG IQ8 10/23 1600 DC 10/24 N/A 1 UNIT IV 0929 Omeprazole 20 MG DAILY AC 10/19 0700 AC 10/24 PO 0442 Oxycodone HCl 5 MG Q6H PRN 10/18 2015 AC 10/24 PO 1351 Sodium Hypochlorite 1 HILARIA BID 10/19 1442 10/24 [facility] 0926 Last 24 Hrs of Lab/Perfecto Results Last 24 Hrs of Labs/Mics: Laboratory Tests 10/24/16 0711: Anion Gap 14, Estimated GFR > 60, BUN/Creatinine Ratio 28.6 H, CBC w Diff NO MAN DIFF REQ, RBC 3.47 L, MCV 86.0, MCH 27.4, RDW 17.5 H, MPV 6.9 L, Gran % 75.4 H, Lymphocytes % 9.5 L, Monocytes % 10.5 H, Eosinophils % 4.2, Basophils % 0.4, Absolute Granulocytes 10.0 H, Absolute Lymphocytes 1.3, Absolute Monocytes 1.4 H, Absolute Eosinophils 0.6, Absolute Basophils 0.1, PUBS MCHC 31.9 L, ESR Westergren > 130 H Assessment/Plan Assessment: Patient is a 71-year-old male with past medical history of History of coronary artery disease status post CABG, hypertension, hyperlipidemia, diabetes mellitus , abdominal AAA s/p repair leading to spinal shock, previous admission for urosepsis vs. possible sacral decubitus osteomyelitis, Paraplegia and sacral decubitus ulcers status post debridement, neurogenic bladder, Prostate cancer. Patient was in brought into [facility] from [place] due to nonhealing deep sacral and coccygeal decubitus ulcer with MRI findings suggestive of osteomyelitis. Patient also reported fever and chills. # Sepsis most likely 2/2 sacral ulcer Patient presented with fever, maximum temperature 100.1 in the ED, pulse rate of 109, elevated WBC of 20.0. Recent MRI of the pelvis suggested possible osteomyelitis. Patient was initially placed on IV vanc and Fortaz which have been discontinued after 3 days per ID rec. Sepsis has resolved. 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 Patient reports ulcer has been worsening since 4 weeks [employer]. MRI done on Oct 09 that showed large decubitus ulcer extending to the coccyx with marrow edema and enhancement, and possible osteomyelitis. Patient is status post debridement of the necrotic soft tissue overlying the sacrum and coccyx on 10/22/16. Culture of the tissue from 10/22 is growing alpha strep and E.coli. Patient currently remains HDS and afebrile with WBC trending down. * Surgery on board, patient to get debridement tomorrow, currently nothing by mouth overnight for the procedure. * Follow wound care recs * Discontinue Ceftriaxone 2 g IV QD and Flagyl 500 mg IV Q8 (day 2) * Start Unasyn 3g IV Q6H * Follow blood culture for identification, C&S * Awaiting diverting colostomy by Dr. Hayes (tentatively scheduled for 10/31/16 ) # History of recurrent UTIs with chronic indwelling Zheng catheter UA on admission: turbid, high in protein, positive nitrite, large leukocyte esterase, packed with WBCs, many granular casts, moderate amount of urine hemoglobin. No growth identified in Ucx. Regardless patient received 3 days of IV vanc and Fortaz for osteomyleitis. Currently no urinary symptoms. * Cont zheng cath for now * Awaiting uro input for suprapubic cystostomy (Dr. Koch consulted on 10/23) # History of hypertension * Continue amlodipine # History of hyperlipidemia * Continue statin # History of CAD * Continue aspirin # History of diabetes * NovoLog sliding scale according to Accu-Cheks # History of GERD * Cont Prilosec - Heart healthy diet - DVTppx: Subcutaneous heparin - Mild pain pathway - DNR/I Problem List: 1. Hypertension 2. Hyperlipidemia 3. CAD (coronary artery disease) 4. Abdominal aortic aneurysm 5. DVT prophylaxis 6. Full code status 7. Pneumonia 8. Sepsis 9. Diabetes 10. Hematuria 11. Urinary tract infection 12. Anxiety 13. Asthma 14. Dehydration with hypernatremia 15. Fever 16. Bacteremia 17. Diabetes 18. GERD (gastroesophageal reflux disease) 19. Asthma 20. Anxiety 21. UTI (lower urinary tract infection) 22. Vomiting and diarrhea 23. Leukocytosis 24. Decubitus ulcer 25. Anemia 26. Hypokalemia 27. Chronic indwelling Zheng catheter 28. Paraplegia 29. Osteomyelitis 30. Bacteremia Pain Ratin Pain Location: 0 Pain Goal: Remain pain free Pain Plan: Mild pathway Tomorrow's Labs & Rationales: CBC BEP
--- NOTE | 2016-10-24 07:43 | PN- Att Addend ---
Attending Addendum Attending Brief Note Intake & Output 10/24 0810/24 0000 10/23 1600 Intake Total 480 1800 Output Total 500 1200 1900 Balance -500 -720 -100 Intake, Oral 480 1800 Number 1 Bowel Movements Output, Stool 0 Output, Urine 500 1200 1900 Current Medications Sig/Mey Start time Last Medication Dose Route Stop Time Status Admin Acetaminophen 650 MG Q6P PRN 10/18 2015 AC 10/21 PO 1703 Acetaminophen 1,000 MG Q8P PRN 10/18 2015 AC IV Alprazolam 0.5 MG TID PRN 10/18 2030 AC 10/23 PO 10/25 202 0805 Aspirin 81 MG DAILY 10/19 1000 AC 10/23 PO 0943 Atorvastatin Calcium 80 MG 1700 10/18 2030 AC 10/23 PO 1652 Budesonide/ 2 PUF BID 10/18 2209 AC 10/23 Formoterol Fumarate INH 2155 Ceftriaxone Sodium 2,000 MG DAILY 10/23 1415 AC 10/23 IV 1652 Clonazepam 0.5 MG QPM 10/18 2200 AC 10/23 PO 10/25 215 2155 Dextrose/Sodium 1,000 ML Q13H 10/19 1945 AK 10/23 Chloride IV 0941 Enoxaparin Sodium 40 MG DAILY 10/19 1000 AC 10/23 SC 0951 Fluticasone 2 SPRAY DAILY PRN 10/18 2030 AC Propionate MARIA ANTONIA Furosemide 20 MG Q48H 10/19 1000 AC 10/23 PO 0943 Guaifenesin 10 ML Q4H PRN 10/18 2030 AC 10/23 PO 2213 Insulin Aspart 0 TIDAC/HS 10/19 08 AC 10/23 SC 1729 Magnesium Hydroxide 30 ML DAILY PRN 10/18 2030 AC PO Melatonin 5 MG AT BEDTIME 10/18 2200 AC 10/23 PO 2155 Metoprolol Tartrate 25 MG BID 10/18 2200 AC 10/23 PO 2155 Metronidazole 500 MG IQ8 10/23 1600 AC 10/24 N/A 1 UNIT IV 0029 Omeprazole 20 MG DAILY AC 10/19 07 AC 10/24 PO 0442 Oxycodone HCl 5 MG Q6H PRN 10/18 2015 AC 10/24 PO 0442 Sodium Hypochlorite 1 HILARIA BID 10/19 1442 AC 10/23 TOP 0943 Laboratory Tests 10/24 10/23 0711 0833 Chemistry Sodium (137 - 145 mmol/L) Pending 136 L Potassium (3.5 - 5.1 mmol/L) Pending 4.6 Chloride (98 - 107 mmol/L) Pending 93 L Carbon Dioxide (22 - 30 mmol/L) Pending 31 H Anion Gap (5 - 16) Pending 13 BUN (9 - 20 mg/dL) Pending 17 Creatinine (0.7 - 1.2 mg/dL) Pending 0.5 L Estimated GFR (>60 ml/min) > 60 BUN/Creatinine Ratio (7 - 25 %) Pending 34.0 H Hematology CBC w Diff Pending NO MAN DIFF REQ WBC (4.8 - 10.8 /CUMM) Pending 11.7 H RBC (4.70 - 6.10 /CUMM) Pending 3.32 L Hgb (14.0 - 18.0 G/DL) Pending 9.2 L Hct (42 - 52 %) Pending 28.4 L MCV (80.0 - 94.0 FL) Pending 85.5 MCH (27.0 - 31.0 PG) Pending 27.8 RDW (11.5 - 14.5 %) Pending 17.2 H Plt Count (130 - 400 /CUMM) Pending 615 H MPV (7.4 - 10.4 FL) Pending 7.0 L Gran % (42.2 - 75.2 %) 76.4 H Lymphocytes % (20.5 - 51.1 %) 9.2 L Monocytes % (1.7 - 9.3 %) 10.3 H Eosinophils % (0 - 5 %) 3.6 Basophils % (0.0 - 2.0 %) 0.5 Absolute Granulocytes (1.4 - 6.5 /CUMM) 8.9 H Absolute Lymphocytes (1.2 - 3.4 /CUMM) 1.1 L Absolute Monocytes (0.10 - 0.60 /CUMM) 1.2 H Absolute Eosinophils (0.0 - 0.7 /CUMM) 0.4 Absolute Basophils (0.0 - 0.2 /CUMM) 0.1 PUBS MCHC (33.0 - 37.0 G/DL) Pending 32.5 L ESR Westergren Pending Vital Signs Date Time Temp Pulse Resp B/P Pulse O2 O2 Flow FiO2 Ox Delivery Rate 10/23 2330 98.7 94 18 123/53 91 Room Air 10/23 2155 78 120/80 10/23 1642 97.4 82 21 122/72 94 Room Air 10/23 0943 120/60 10/23 0821 98.3 74 20 124/60 92 Room Air Intake & Output 10/24 0800 10/24 0000 10/23 1600 Intake Total 480 1800 Output Total 500 1200 1900 Balance -500 -720 -100 Intake, Oral 480 1800 Number 1 Bowel Movements Output, Stool 0 Output, Urine 500 1200 1900 Attending note. Patient has got the sacral osteomyelitis with polymicrobial organisms mostly gram-negative rods as well as anaerobes. Patient was started on IV ceftriaxone 2 g every 24 hours as well as Flagyl 500 mg IV every 8 hours. Patient is considering about the cystoscopy.
[2016-10-24 07:55] LABS: ABSOLUTE BASOPHIL COUNT 0.1 /CUMM (0.0-0.2); ABSOLUTE EOSINOPHIL COUNT 0.6 /CUMM (0.0-0.7); ABSOLUTE LYMPH COUNT 1.3 /CUMM (1.2-3.4); ABSOLUTE MONOCYTE COUNT 1.4 /CUMM (0.10-0.60); BASOPHIL % 0.4 % (0.0-2.0); EOSINOPHIL % 4.2 % (0-5); GRANULOCYTE % 75.4 % (42.2-75.2); HEMATOCRIT 29.8 % (42-52); MEAN CORPUSCULAR HGB 27.4 PG (27.0-31.0); MEAN CORPUSCULAR HGB CONC 31.9 G/DL (33.0-37.0); MEAN PLATELET VOLUME 6.9 FL (7.4-10.4); PLATELET COUNT 695 /CUMM (130-400); RBC DISTRIBUTION WIDTH 17.5 % (11.5-14.5); RED BLOOD CELL CT 3.47 /CUMM (4.70-6.10); WHITE BLOOD CELL COUNT 13.3 /CUMM (4.8-10.8)
[2016-10-24 08:00] VITALS: BP 120/58
--- NOTE | 2016-10-24 12:39 | Cons- Urology ---
General Information and HPI Consulting Request Date of Consult: 10/23/16 Requested By: SLIM COLE MD Reason for Consult: suprapubic tube for urinary diversion Source of Information: patient, old records History of Present Illness: 71 yo paraplegic male after AAA surgery several years ago. He also has a hx of CaP s/p RT in 2004. He has a neurogenic bladder with an indwelling zheng catheter for years. He was recommended to have a SPT given his nonhealing decubitus ulcer issue. He does admit to urinary incontinence around the zheng and has not been on any AMs for this. Allergies/Medications Allergies: Coded Allergies: NO KNOWN ALLERGIES (10/18/16) Home Med List: Acetaminophen (Acephen) 650 MG SUPP.RECT 1 SUPP OK Q4H PRN PAIN/TEMP>/100 ( Reported) Acetaminophen 325 MG CAPSULE 2 CAP PO Q4H PRN PAIN/TEMP>/100 (Reported) Alprazolam 0.5 MG TABLET 1 TAB PO Q8H PRN ANXIETY (Reported) Aspirin (Children's Aspirin) 81 MG TAB.CHEW 1 TAB PO DAILY HEART HEALTH ( Reported) Baclofen (Lioresal) 10 MG TABLET 1 TAB PO QAM MUSCLE RELAXER (Reported) Bisacodyl 10 MG SUPP.RECT 1 SUP RC PRN CONSTIPATION (Reported) Calcium Carbonate (Calcium) 500 MG CALCIUM (1,250 MG) TAB.CHEW 2 TAB PO Q8H PRN GI DISCOMFORT (Reported) Clonazepam (Klonopin) 0.5 MG TABLET 1 TAB PO QPM SLEEP (Reported) Cyanocobalamin (Vitamin B12) 1,000 MCG TAB 1 TAB PO QAM SUPPLEMENT (Reported) Dextran 70/Hypromellose (Artificial Tears) 1 EACH DROPERETTE 1 DROP OP TID PRN BOTH EYES (Reported) Fluticasone Propionate (Flonase Allergy Relief) 50 MCG/ACTUATION SPRAY.SUSP 2 SPRAY NASB DAILY PRN NASAL CONGESTION (Reported) Furosemide (Lasix) 20 MG TABLET 1 TAB PO EOD DIURETIC (Reported) Guaifenesin (Q-Tussin) 100 MG/5 ML LIQUID 10 ML PO Q4H PRN COUGH (Reported) Insulin Aspart, Recombinant (Novolog) 100 U/ML DARRON 0 UNITS SC AD GLUCOSE CONTROL (Reported) BLOOD SUGAR # OF UNITS < 80 NONE 80-150 NONE 151-200 4 UNITS 201-250 6 UNITS 251-300 8 UNITS 301-350 10 UNITS 351-400 12 UNITS >400 14 UNITS and call Magnesium Hydroxide (Milk Of Magnesia) 400 MG/5 ML ORAL.SUSP 30 ML PO DAILY PRN CONSTIPATION (Reported) Melatonin 5 MG TAB.SUBL 1 TAB PO QHS SLEEP (Reported) METFORMIN HCL (Metformin) 1,000 MG TABLET 1 TAB PO BID DIABETES (Reported) Metoprolol Tartrate (Lopressor) 25 MG TABLET 1 TAB PO BID BP/HEART (Reported) MOMETASONE/FORMOTEROL (Dulera 100 Mcg/5 Mcg Inhaler) 100 MCG-5 MCG/ACTUATION HFA.AER.AD 2 PUF INH BID UNKNOWN (Reported) Multivitamin (Multiple Vitamins) 1 EACH TABLET 1 TAB PO QAM SUPPLEMENT ( Reported) Na Phos,M-B/Na Phos,Di-Ba (Fleet Enema) 19 GRAM-7 GRAM/118 ML ENEMA 1 E RC DAILY PRN CONSTIPATION (Reported) [place]-3 Fatty Acids ([place]-3) 1,000 MG CAPSULE 1 CAP PO DAILY SUPPLEMENT ( Reported) Omeprazole 20 MG TABLET.DR 1 TAB PO DAILY GI (Reported) OXYCODONE HCL/ACETAMINOPHEN (Percocet 7.5-325 MG Tablet) 325 MG/7.5 MG TAB 1 TAB PO Q6H PAIN (Reported) Potassium Chloride 20 MEQ TAB.ER.PRT 1 TAB PO DAILY SUPPLEMENT (Reported) Protein Supplement (Promod) 946 ML LIQUID 30 ML PO DAILY SUPPLEMENT (Reported ) Psyllium Husk (Metamucil) 3.4 GRAM/5.4 GRAM POWDER 3.4 GM PO DAILY GI ( Reported) Rosuvastatin Calcium (Crestor) 20 MG TABLET 1 TAB PO DAILY CHOLESTEROL ( Reported) Saccharomyces Boulardii (Florastor) (Unknown Strength) CAPSULE 1 CAP PO DAILY SUPPLEMENT (Reported) Current Medications: Current Medications Sig/Mey Start time Last Medication Dose Route Stop Time Status Admin Acetaminophen 650 MG Q6P PRN 10/18 2015 AC 10/21 PO 170 Acetaminophen 1,000 MG Q8P PRN 10/18 2015 AC IV Alprazolam 0.5 MG TID PRN 10/18 2030 AC 10/23 PO 10/25 2028 08 Aspirin 81 MG DAILY 10/19 1000 AC 10/23 PO 0943 Atorvastatin Calcium 80 MG 1700 10/18 2030 AC 10/23 PO 1652 Budesonide/ 2 PUF BID 10/18 220 AC 10/24 Formoterol Fumarate INH 0927 Ceftriaxone Sodium 2,000 MG DAILY 10/23 1415 AC 10/24 IV 0927 Clonazepam 0.5 MG QPM 10/18 2200 AC 10/23 PO 10/25 2159 2155 Dextrose/Sodium 1,000 ML Q13H 10/19 1945 DC 10/23 Chloride IV 0941 Enoxaparin Sodium 40 MG DAILY 10/19 1000 AC 10/24 SC 0927 Fluticasone 2 SPRAY DAILY PRN 10/18 2030 AC Propionate MARIA ANTONIA Furosemide 20 MG Q48H 10/19 1000 AC 10/23 PO 0943 Guaifenesin 10 ML Q4H PRN 10/18 2030 AC 10/23 PO 2213 Insulin Aspart 0 TIDAC/HS 10/19 0800 AC 10/24 SC 0926 Magnesium Hydroxide 30 ML DAILY PRN 10/18 2030 AC PO Melatonin 5 MG AT BEDTIME 10/18 220 AC 10/23 PO 2155 Metoprolol Tartrate 25 MG BID 10/18 220 AC 10/24 PO 0933 Metronidazole 500 MG IQ8 10/23 1600 AC 10/24 N/A 1 UNIT IV 0929 Omeprazole 20 MG DAILY AC 10/19 0700 AC 10/24 PO 0442 Oxycodone HCl 5 MG Q6H PRN 10/18 2015 AC 10/24 PO 0442 Sodium Hypochlorite 1 HILARIA BID 10/19 1442 AC 10/24 TOP 0926 Past History Medical History Neurological: PARAPLEGIA STATUS POST SPINAL SHOCK POSTOP EENT: NONE Cardiovascular: CAD, hypertension, hyperlipidemia, ABDOMINAL ANEURYSM Respiratory: asthma Gastrointestinal: GERD Renal: neurogenic bladder, UTI Musculoskeletal: decubitis ulcer (OSTEOMYELITIS) Psychiatric: anxiety, depression Endocrine: DIABETES TYPE 2 Cancer(s): prostate cancer Surgical History Pertinent Surgical History: AAA repair x2 once 2002, and 2013 Family History Relations & Conditions If Any: MOTHER FH: coronary artery disease FH: diabetes mellitus BROTHER FH: diabetes mellitus SISTER Psychosocial History Where Do You Live? Residential Facility Services at Home: Nursing Primary Language: Bruneian Smoking Status: Former Smoker ETOH Use: denies use Illicit Drug Use: denies illicit drug use Functional Ability ADLs Independent: eating. Needs Assist: dressing, toileting, bathing. Ambulation: non-ambulatory IADLs Needs Assist: shopping, housework, finances, food prep, telephone, transportation, medication admin. Review of Systems Review of Systems Constitutional: Denies: no symptoms. EENTM: Denies: see HPI. Cardiovascular: Denies: see HPI. Respiratory: Denies: no symptoms. GI: Denies: see HPI. Genitourinary: Denies: see HPI. Musculoskeletal: Denies: see HPI. Skin: Denies: see HPI. Exam & Diagnostic Data Vital Signs and I&O Vital Signs Date Time Temp Pulse Resp B/P Pulse O2 O2 Flow FiO2 Ox Delivery Rate 10/24 0933 83 120/58 10/24 0800 97.4 83 20 120/58 94 Room Air 10/23 2330 98.7 94 18 123/53 91 Room Air 10/23 2155 78 120/80 10/23 1642 97.4 82 21 122/72 94 Room Air Intake & Output 10/24 1600 10/24 0800 10/24 0000 10/23 1600 10/23 0800 10/23 0000 Intake Total 820 352 8565 400 1300 Output Total 500 1200 1900 1450 1000 Balance 230 -720 -100 -1050 300 Intake, IV 130 400 400 Intake, Oral 945 311 5865 900 Number 1 1 Bowel Movements Output, Stool 0 Output, Urine 500 1200 1900 1450 1000 Physical Exam: sitting up in bed in NAD abd soft, ND/NT zheng catheter in place draining clear urine Physical Exam General Appearance: no apparent distress, alert, awake, comfortable Head: atraumatic, normal appearance Eyes: Bilateral: normal appearance. Ears, Nose, Throat: normal ENT inspection Respiratory: no respiratory distress Gastrointestinal: soft, non-tender Rectal: deferred Neurologic/Psych: awake, alert, oriented x 3 Cranial Nerves: normal hearing, normal speech Reproductive: Normal male genitalia Assessment/Plan Assessment/Plan 71 yo paraplegic male with nonhealing sacral decubitus ulcer. He will be scheduled for a diverting colostomy and a Suprapubic catheter can be placed at the same time. We will plan to do this with Dr. Irizarry. He has not had any abdominal surgery other than the AAA x2. Pt wishes to proceed in this manner. Discussed the r/b/a of the surgery. He should be on AMs as well eg oxybutynin to prevent IDCs resulting in incontinence. Consult Acknowledgment - Thank you for your consult request.
--- NOTE | 2016-10-24 13:06 | RADIOLOGY REPORT ---
EXAMINATION: XR PORTABLE CHEST CLINICAL INFORMATION: PICC line placement confirmation. COMPARISON: Chest x-ray 10/18/2016. TECHNIQUE: A portable AP view of the chest was obtained. The right lower zone is not included on the image. FINDINGS: There is a new PICC line from the right, with the tip at the cavoatrial junction. No pneumothorax is demonstrated. The right lung base cannot be assessed for pleural fluid. The cardiac silhouette is suboptimally visualized, and appears prominent, but likely stable. The aortic arch is unfolded. Median sternotomy wires are noted. The central pulmonary vasculature appears normal. IMPRESSION: 1. There is a new PICC line from the right with the tip at the cavoatrial junction. 2. There is no evidence of pneumothorax.
--- NOTE | 2016-10-24 13:12 | PN- Infect Dx ---
Subjective Subjective: Afebrile without complaints Objective Last 24 Hrs of Vital Signs/I&O Vital Signs Date Time Temp Pulse Resp B/P Pulse O2 O2 Flow FiO2 Ox Delivery Rate 10/24 0933 83 120/58 10/24 0800 97.4 83 20 120/58 94 Room Air 10/23 2330 98.7 94 18 123/53 91 Room Air 10/23 2155 78 120/80 10/23 1642 97.4 82 21 122/72 94 Room Air Intake & Output 10/24 1600 10/24 0800 10/24 0000 Intake Total 730 480 Output Total 500 1200 Balance 230 -720 Intake, IV 130 Intake, Oral 600 480 Number 1 Bowel Movements Output, Urine 500 1200 Physical Exam Other Physical Findings: He appears comfortable in no acute distress Back sacral decubitus clean, with no surrounding erythema or drainage Extremities PICC in place in the right upper extremity Results Last 24 Hours of Lab Results: Laboratory Tests 10/24 0711 Chemistry Sodium (137 - 145 mmol/L) 136 L Potassium (3.5 - 5.1 mmol/L) 5.0 Chloride (98 - 107 mmol/L) 90 L Carbon Dioxide (22 - 30 mmol/L) 32 H Anion Gap (5 - 16) 14 BUN (9 - 20 mg/dL) 20 Creatinine (0.7 - 1.2 mg/dL) 0.7 Estimated GFR (>60 ml/min) > 60 BUN/Creatinine Ratio (7 - 25 %) 28.6 H Hematology CBC w Diff NO MAN DIFF REQ WBC (4.8 - 10.8 /CUMM) 13.3 H RBC (4.70 - 6.10 /CUMM) 3.47 L Hgb (14.0 - 18.0 G/DL) 9.5 L Hct (42 - 52 %) 29.8 L MCV (80.0 - 94.0 FL) 86.0 MCH (27.0 - 31.0 PG) 27.4 RDW (11.5 - 14.5 %) 17.5 H Plt Count (130 - 400 /CUMM) 695 H MPV (7.4 - 10.4 FL) 6.9 L Gran % (42.2 - 75.2 %) 75.4 H Lymphocytes % (20.5 - 51.1 %) 9.5 L Monocytes % (1.7 - 9.3 %) 10.5 H Eosinophils % (0 - 5 %) 4.2 Basophils % (0.0 - 2.0 %) 0.4 Absolute Granulocytes (1.4 - 6.5 /CUMM) 10.0 H Absolute Lymphocytes (1.2 - 3.4 /CUMM) 1.3 Absolute Monocytes (0.10 - 0.60 /CUMM) 1.4 H Absolute Eosinophils (0.0 - 0.7 /CUMM) 0.6 Absolute Basophils (0.0 - 0.2 /CUMM) 0.1 PUBS MCHC (33.0 - 37.0 G/DL) 31.9 L ESR Westergren (0 - 10 MM) > 130 H Last 24 Hours of Perfecto Results: OR culture October 22 labeled sacral bone positive for alpha strep, Escherichia coli resistant to Ciprofloxacin and Bactrim and possible anaerobes Assessment/Plan Impression: Stable on Ceftriaxone and Flagyl Day 2 of treatment for polymicrobial osteomyelitis of the sacrum status post debridement of the necrotic soft tissue overlying the sacrum as well as the coccyx and distal portion of the sacrum 2 days ago with temperatures remain normal but with white blood cell count slightly elevated. He will require a four-week course of IV antibiotics. Plans are in progress for a diverting colostomy as well as a suprapubic cystostomy. Suggestion: 1. Follow-up final cultures 2. Await surgery for diverting colostomy and suprapubic cystostomy 3. Discontinue Ceftriaxone and Flagyl 4. Begin Unasyn 3 g IV every 6 hours
--- NOTE | 2016-10-24 15:44 | NUR ---
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
--- NOTE | 2016-10-24 15:51 | NUR ---
NSG NOTE: THIS RN UNABLE TO CHART ON PREVIOUS MULLINS DOCUMENTATION FOR IT WAS COMPLETED BY
--- NOTE | 2016-10-24 16:37 | NUR ---
WOUND CARE: SURGICAL SITE MARKED FOR COLOSTOMY PLACEMENT PER DR MAGDALENO REQUEST - SITE MARKED ALIYA ABD- OSTOMY APPLIANCE APPLIED - PT EDUCATED AND UNDERSTOOD - WILL MONITOR
[2016-10-24 16:49] VITALS: BP 136/62
--- NOTE | 2016-10-24 18:59 | NUR ---
NSG NOTE: MULLINS INSERTED AT 1800
[2016-10-25 00:36] VITALS: BP 130/60
--- NOTE | 2016-10-25 06:27 | PN- Housestaff ---
Subjective Follow-up For: Sepsis due to stage IV decubitus sacral ulcer Bacteremia Osteomyelitis Subjective: Patient seen and examined at bedside. No acute events reported overnight. Refuses to cooperate with the exmaination fot his back ulcer. Remains HDS and afebrile. Resting comfortably in bed. Alert, awake and oriented x 3. No acute distress. No new complaints. Denies any respiratory or urinary sxs. No chest pain, palpitations. No n/v/c/d/f/c. Review of Systems Constitutional: Reports: see HPI. Objective Last 24 Hrs of Vital Signs/I&O Vital Signs Date Time Temp Pulse Resp B/P Pulse O2 O2 Flow FiO2 Ox Delivery Rate 10/25 0827 79 126/68 10/25 0821 98.7 79 20 126/68 91 Room Air 10/25 0036 99.2 79 18 130/60 90 Room Air 10/24 2216 130/78 10/24 1649 98.2 67 18 136/62 95 Room Air Intake & Output 10/25 1600 10/25 0800 10/25 0000 Intake Total 390 360 Output Total 300 325 750 Balance -300 65 -390 Intake, IV 150 Intake, Oral 240 360 Number 2 Bowel Movements Output, Urine 300 325 750 Physical Exam General Appearance: Alert, Oriented X3, Cooperative, No Acute Distress Other Physical Findings: Skin there is a large 10x10 cm in the lower lumbar area and coccyx, stage 4 ( extending into the bone), there is foul smelling discharge from the ulcer and there is necrotic tissue in the edges and inside the wound. HEENT Atraumatic, PERRLA, EOMI, Mucous Membr. moist/pink Neck Supple, No JVD Cardiovascular Regular Rate, Normal S1, Normal S2, No Murmurs Lungs Clear to Auscultation, Normal Air Movement Abdomen No Masses, decreased bowel sounds, No sensation from below the chest wall Neurological Normal Speech, Cranial Nerves 3-12 NL, forces 0/5 in bilateral LE, 5/5 forces on both upper extremities, sensory deficit from below the chest wall (T8-T9 level) Extremities No Clubbing, No Cyanosis, Normal Pulses, 1+ pitting edema on the right lower extremity Vascular Normal Pulses, Pulses Symmetrical Current Medications: Current Medications Sig/Mey Start time Last Medication Dose Route Stop Time Status Admin Acetaminophen 650 MG Q6P PRN 10/18 2015 AC 10/21 PO 1703 Acetaminophen 1,000 MG Q8P PRN 10/18 2015 AC IV Alprazolam 0.5 MG TID PRN 10/18 2030 AC 10/23 PO 10/25 2029 0805 Ampicillin Sodium/ 3,000 MG Q6 10/24 1800 AC 10/25 Sulbactam Sodium IV 1125 Sodium Chloride 100 ML Aspirin 81 MG DAILY 10/19 1000 AC 10/25 PO 0827 Atorvastatin Calcium 80 MG 1700 10/18 2030 AC 10/24 PO 1724 Budesonide/ 2 PUF BID 10/18 2209 AC 10/25 Formoterol Fumarate INH 0828 Ceftriaxone Sodium 2,000 MG DAILY 10/23 1415 DC 10/24 IV 0927 Clonazepam 0.5 MG QPM 10/18 2200 AC 10/24 PO 10/25 215 2215 Enoxaparin Sodium 40 MG DAILY 10/19 1000 AC 10/25 SC 0827 Fluticasone 2 SPRAY DAILY PRN 10/18 2030 AC Propionate MARIA ANTONIA Furosemide 20 MG Q48H 10/19 1000 AC 10/25 PO 0827 Guaifenesin 10 ML Q4H PRN 10/18 2030 AC 10/23 PO 2213 Insulin Aspart 0 TIDAC/HS 10/19 0800 AC 10/25 SC 1254 Magnesium Hydroxide 30 ML DAILY PRN 10/18 2030 AC PO Melatonin 5 MG AT BEDTIME 10/18 2200 AC 10/24 PO 221 Metoprolol Tartrate 25 MG BID 10/18 2200 AC 10/25 PO 0827 Metronidazole 500 MG IQ8 10/23 1600 DC 10/24 N/A 1 UNIT IV 0929 Omeprazole 20 MG DAILY AC 10/19 0700 AC 10/25 PO 0532 Oxybutynin Chloride 2.5 MG BID 10/25 0109 AC 10/25 PO 0828 Oxycodone HCl 5 MG Q6H PRN 10/18 2015 AC 10/25 PO 1120 Sodium Hypochlorite 1 HILARIA BID 10/19 1442 AC 10/25 TOP 0828 Assessment/Plan Assessment: Patient is a 71-year-old male with past medical history of History of coronary artery disease status post CABG, hypertension, hyperlipidemia, diabetes mellitus , abdominal AAA s/p repair leading to spinal shock, previous admission for urosepsis vs. possible sacral decubitus osteomyelitis, Paraplegia and sacral decubitus ulcers status post debridement, neurogenic bladder, Prostate cancer. Patient was in brought into [facility] from [place] due to nonhealing deep sacral and coccygeal decubitus ulcer with MRI findings suggestive of osteomyelitis. Patient also reported fever and chills. # Sepsis most likely 2/2 sacral ulcer Patient presented with fever, maximum temperature 100.1 in the ED, pulse rate of 109, elevated WBC of 20.0. Recent MRI of the pelvis suggested possible osteomyelitis. Patient was initially placed on IV vanc and Fortaz which have been discontinued after 3 days per ID rec. Sepsis has resolved. 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 Patient reports ulcer has been worsening since 4 weeks [employer]. MRI done on Oct 09 that showed large decubitus ulcer extending to the coccyx with marrow edema and enhancement, and possible osteomyelitis. Patient is status post debridement of the necrotic soft tissue overlying the sacrum and coccyx on 10/22/16. Culture of the tissue from 10/22 is growing alpha strep and E.coli. Patient currently remains HDS and afebrile with WBC trending down. Pt received 2 days of IV CTX 2 g QD and IV Flagyl 500 mg Q8. * Surgery on board, patient to get debridement tomorrow, currently nothing by mouth overnight for the procedure. * Follow wound care recs * Continue Unasyn 3g IV Q6H - day 2 * Awaiting diverting colostomy by Dr. Hayes (tentatively scheduled for 10/31/16 ) # History of recurrent UTIs with chronic indwelling Zheng catheter UA on admission: turbid, high in protein, positive nitrite, large leukocyte esterase, packed with WBCs, many granular casts, moderate amount of urine hemoglobin. No growth identified in Ucx. Regardless patient received 3 days of IV vanc and Fortaz for osteomyleitis. Currently no urinary symptoms. * Cont zheng cath for now * Urology consulted, suprapubic cystostomy scheduled for next week along with colostomy * Cont oxybutin per uro rec # History of hypertension * Continue amlodipine # History of hyperlipidemia * Continue statin # History of CAD * Continue aspirin # History of diabetes * NovoLog sliding scale according to Accu-Cheks # History of GERD * Cont Prilosec - Heart healthy diet - DVTppx: Subcutaneous heparin - Mild pain pathway - DNR/I Problem List: 1. Bacteremia 2. Osteomyelitis Pain Ratin Pain Location: 0 Pain Goal: Remain pain free Pain Plan: Mild pain pathway Tomorrow's Labs & Rationales: CBC to monitor for leukocytosis
--- NOTE | 2016-10-25 07:38 | PN- Att Addend ---
Attending Addendum Attending Brief Note Intake & Output 10/25 0810/25 0000 10/24 1600 Intake Total 514 074 6637 Output Total 325 750 550 Balance 65 -390 1710 Intake, IV 150 220 Intake, Oral 689 386 0184 Number 2 3 Bowel Movements Output, Urine 325 750 550 Current Medications Sig/Mey Start time Last Medication Dose Route Stop Time Status Admin Acetaminophen 650 MG Q6P PRN 10/18 2015 AC 10/21 PO 1703 Acetaminophen 1,000 MG Q8P PRN 10/18 2015 AC IV Alprazolam 0.5 MG TID PRN 10/18 2030 AC 10/23 PO 10/25 202 0805 Ampicillin Sodium/ 3,000 MG Q6 10/24 1800 AC 10/25 Sulbactam Sodium IV 0531 Sodium Chloride 100 ML Aspirin 81 MG DAILY 10/19 1000 AC 10/24 PO 1237 Atorvastatin Calcium 80 MG 1700 10/18 2030 AC 10/24 PO 1724 Budesonide/ 2 PUF BID 10/18 2209 AC 10/24 Formoterol Fumarate INH 2216 Ceftriaxone Sodium 2,000 MG DAILY 10/23 1415 DC 10/24 IV 0927 Clonazepam 0.5 MG QPM 10/18 2200 AC 10/24 PO 10/25 2159 2215 Enoxaparin Sodium 40 MG DAILY 10/19 1000 AC 10/24 SC 0927 Fluticasone 2 SPRAY DAILY PRN 10/18 2030 AC Propionate MARIA ANTONIA Furosemide 20 MG Q48H 10/19 1000 AC 10/23 PO 0943 Guaifenesin 10 ML Q4H PRN 10/18 2030 AC 10/23 PO 2213 Insulin Aspart 0 TIDAC/HS 10/19 08 AC 10/24 SC 1237 Magnesium Hydroxide 30 ML DAILY PRN 10/18 2030 AC PO Melatonin 5 MG AT BEDTIME 10/18 2200 AC 10/24 PO 2216 Metoprolol Tartrate 25 MG BID 10/18 2200 AC 10/24 PO 2216 Metronidazole 500 MG IQ8 10/23 1600 DC 10/24 N/A 1 UNIT IV 0929 Omeprazole 20 MG DAILY AC 10/19 07 AC 10/25 PO 0532 Oxybutynin Chloride 2.5 MG BID 10/25 0109 AC 10/25 PO 0212 Oxycodone HCl 5 MG Q6H PRN 10/18 2015 AC 10/24 PO 1944 Sodium Hypochlorite 1 HILARIA BID 10/19 1442 AC 10/24 TOP 2218 Vital Signs Date Time Temp Pulse Resp B/P Pulse O2 O2 Flow FiO2 Ox Delivery Rate 10/25 0036 99.2 79 18 130/60 90 Room Air 10/24 2216 130/78 10/24 1649 98.2 67 18 136/62 95 Room Air 10/24 0933 83 120/58 10/24 0800 97.4 83 20 120/58 94 Room Air Intake & Output 10/25 0800 10/25 0000 10/24 1600 Intake Total 547 286 8453 Output Total 325 750 550 Balance 65 -390 1710 Intake, IV 150 220 Intake, Oral 612 678 2050 Number 2 3 Bowel Movements Output, Urine 325 750 550 Attending note Had a PICC line inserted in the right arm And we'll start patient on Unasyn 3 g IV every 6 hours for 12 weeks. Patient will have diverting colostomy and suprapubic cystostomy. Plan is to discuss with case management about scheduling the patient during this admission or [facility] and brought back to the hospital for suprapubic cystostomy and diverticular colostomy. The meanwhile continue with management of the wound.
[2016-10-25 08:21] VITALS: BP 126/68
--- NOTE | 2016-10-25 12:16 | PN- General Surgery ---
Surgical Brief Attending Note Brief Attending Note: pt with little clinical chanage Will have laparscopic possible open diverting colostomy and placment of suprapubic catheter next week Will need to hold lovenox the day prior to surgery
[2016-10-25 16:01] VITALS: BP 118/56
[2016-10-26 00:15] VITALS: BP 122/58
--- NOTE | 2016-10-26 06:24 | PN- Housestaff ---
Subjective Follow-up For: Sepsis due to stage IV decubitus sacral ulcer Bacteremia Osteomyelitis Subjective: Patient seen and examined at bedside. No acute events reported overnight. Remains HDS and afebrile. Resting comfortably in bed. Alert, awake and oriented x 3. No acute distress. No acute complaints. Denies any respiratory or urinary sxs. No chest pain, palpitations. No n/v/c/d/f/c. Review of Systems Constitutional: Reports: see HPI. Objective Last 24 Hrs of Vital Signs/I&O Vital Signs Date Time Temp Pulse Resp B/P Pulse O2 O2 Flow FiO2 Ox Delivery Rate 10/26 0015 97.6 72 18 122/58 95 Room Air 10/25 2209 66 120/64 10/25 1601 97.5 76 18 118/56 93 Room Air 10/25 0827 79 126/68 10/25 0821 98.7 79 20 126/68 91 Room Air Intake & Output 10/26 0800 10/26 0000 10/25 1600 Intake Total 300 480 Output Total 803 947 0172 Balance -600 -300 -820 Intake, IV 200 Intake, Oral 100 480 Number 1 Bowel Movements Output, Urine 891 630 2934 Physical Exam General Appearance: Alert, Oriented X3, Cooperative, No Acute Distress Other Physical Findings: Skin there is a large 10x10 cm in the lower lumbar area and coccyx, stage 4 ( extending into the bone), there is foul smelling discharge from the ulcer and there is necrotic tissue in the edges and inside the wound. HEENT Atraumatic, PERRLA, EOMI, Mucous Membr. moist/pink Neck Supple, No JVD Cardiovascular Regular Rate, Normal S1, Normal S2, No Murmurs Lungs Clear to Auscultation, Normal Air Movement Abdomen No Masses, decreased bowel sounds, No sensation from below the chest wall Neurological Normal Speech, Cranial Nerves 3-12 NL, forces 0/5 in bilateral LE, 5/5 forces on both upper extremities, sensory deficit from below the chest wall (T8-T9 level) Extremities No Clubbing, No Cyanosis, Normal Pulses, 1+ pitting edema on the right lower extremity Vascular Normal Pulses, Pulses Symmetrical Current Medications: Current Medications Sig/Mey Start time Last Medication Dose Route Stop Time Status Admin Acetaminophen 650 MG Q6P PRN 10/18 2015 AC 10/26 PO 0024 Acetaminophen 1,000 MG Q8P PRN 10/18 2015 AC IV Alprazolam 0.5 MG TID PRN 10/18 2030 DC 10/23 PO 10/25 202 0805 Ampicillin Sodium/ 3,000 MG Q6 10/24 1800 AC 10/26 Sulbactam Sodium IV 0553 Sodium Chloride 100 ML Aspirin 81 MG DAILY 10/19 1000 AC 10/25 PO 0827 Atorvastatin Calcium 80 MG 1700 10/18 2030 AC 10/25 PO 1648 Budesonide/ 2 PUF BID 10/18 2209 AC 10/25 Formoterol Fumarate INH 2210 Clonazepam 0.5 MG QPM 10/18 220 DC 10/24 PO 10/25 2159 2215 Enoxaparin Sodium 40 MG DAILY 10/19 1000 AC 10/25 SC 0827 Fluticasone 2 SPRAY DAILY PRN 10/18 2030 AC Propionate MARIA ANTONIA Furosemide 20 MG Q48H 10/19 1000 AC 10/25 PO 0827 Guaifenesin 10 ML .STK-MED ONE 10/25 2203 DC PO 10/25 220 Guaifenesin 10 ML Q4H PRN 10/18 2030 AC 10/25 PO 2209 Insulin Aspart 0 TIDAC/HS 10/19 0800 AC 10/25 SC 2209 Magnesium Hydroxide 30 ML DAILY PRN 10/18 2030 AC PO Melatonin 5 MG AT BEDTIME 10/18 2200 AC 10/25 PO 2209 Metoprolol Tartrate 25 MG BID 10/18 220 AC 10/25 PO 2209 Omeprazole 20 MG DAILY AC 10/19 0700 AC 10/26 PO 0553 Oxybutynin Chloride 2.5 MG BID 10/25 0109 AC 10/25 PO 2209 Oxycodone HCl 5 MG Q6H PRN 10/26 0030 AC PO Oxycodone HCl 5 MG Q6H PRN 10/18 2015 DC 10/25 PO 1648 Sodium Hypochlorite 1 HILARIA BID 10/19 1442 AC 10/25 TOP 2210 Last 24 Hrs of Lab/Perfecto Results Last 24 Hrs of Labs/Mics: Laboratory Tests 10/26/16 0545: CBC w Diff Pending, WBC Pending, RBC Pending, Hgb Pending, Hct Pending, MCV Pending, MCH Pending, RDW Pending, Plt Count Pending, MPV Pending, PUBS MCHC Pending Assessment/Plan Assessment: Patient is a 71-year-old male with past medical history of History of coronary artery disease status post CABG, hypertension, hyperlipidemia, diabetes mellitus , abdominal AAA s/p repair leading to spinal shock, previous admission for urosepsis vs. possible sacral decubitus osteomyelitis, Paraplegia and sacral decubitus ulcers status post debridement, neurogenic bladder, Prostate cancer. Patient was in brought into [facility] from [place] due to nonhealing deep sacral and coccygeal decubitus ulcer with MRI findings suggestive of osteomyelitis. Patient also reported fever and chills. # Sepsis most likely 2/2 sacral ulcer Patient presented with fever, maximum temperature 100.1 in the ED, pulse rate of 109, elevated WBC of 20.0. Recent MRI of the pelvis suggested possible osteomyelitis. Patient was initially placed on IV vanc and Fortaz which have been discontinued after 3 days per ID rec. Sepsis has resolved. 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 Patient reports ulcer has been worsening since 4 weeks [employer]. MRI done on Oct 09 that showed large decubitus ulcer extending to the coccyx with marrow edema and enhancement, and possible osteomyelitis. Patient is status post debridement of the necrotic soft tissue overlying the sacrum and coccyx on 10/22/16. Culture of the tissue from 10/22 is growing alpha strep and E.coli. Patient currently remains HDS and afebrile with WBC trending down. Pt received 2 days of IV CTX 2 g QD and IV Flagyl 500 mg Q8. * Surgery on board, patient to get debridement tomorrow, currently nothing by mouth overnight for the procedure. * Follow wound care recs * Continue Unasyn 3g IV Q6H - day 2 * Awaiting diverting colostomy by Dr. Hayes (tentatively scheduled for 10/31/16 ) # History of recurrent UTIs with chronic indwelling Zheng catheter UA on admission: turbid, high in protein, positive nitrite, large leukocyte esterase, packed with WBCs, many granular casts, moderate amount of urine hemoglobin. No growth identified in Ucx. Regardless patient received 3 days of IV vanc and Fortaz for osteomyleitis. Currently no urinary symptoms. * Cont zheng cath for now * Urology consulted, suprapubic cystostomy scheduled for next week along with colostomy * Cont oxybutin per uro rec # History of hypertension * Continue amlodipine # History of hyperlipidemia * Continue statin # History of CAD * Continue aspirin # History of diabetes * NovoLog sliding scale according to Accu-Cheks # History of GERD * Cont Prilosec - Heart healthy diet - DVTppx: Subcutaneous heparin - Mild pain pathway - DNR/I Problem List: 1. Hypertension 2. Hyperlipidemia 3. CAD (coronary artery disease) 4. Abdominal aortic aneurysm 5. DVT prophylaxis 6. Full code status 7. Bacteremia 8. Osteomyelitis 9. Paraplegia 10. Chronic indwelling Zheng catheter 11. Asthma 12. GERD (gastroesophageal reflux disease) 13. Diabetes 14. Sepsis Pain Ratin Pain Location: 0 Pain Goal: Remain pain free Pain Plan: Mild pathway Tomorrow's Labs & Rationales: CBC to monitor for leukocytosis
--- NOTE | 2016-10-26 07:30 | PN- Att Addend ---
Attending Addendum Attending Brief Note Intake & Output 10/26 0810/26 0000 10/25 1600 Intake Total 300 480 Output Total 277 585 8047 Balance -600 -300 -820 Intake, IV 200 Intake, Oral 100 480 Number 1 Bowel Movements Output, Urine 150 088 8202 Current Medications Sig/Mey Start time Last Medication Dose Route Stop Time Status Admin Acetaminophen 650 MG Q6P PRN 10/18 2015 AC 10/26 PO 0024 Acetaminophen 1,000 MG Q8P PRN 10/18 2015 AC IV Alprazolam 0.5 MG TID PRN 10/18 2030 AL 10/23 PO 10/25 202 0805 Ampicillin Sodium/ 3,000 MG Q6 10/24 1800 AC 10/26 Sulbactam Sodium IV 0553 Sodium Chloride 100 ML Aspirin 81 MG DAILY 10/19 1000 AC 10/25 PO 0827 Atorvastatin Calcium 80 MG 1700 10/18 2030 AC 10/25 PO 1648 Budesonide/ 2 PUF BID 10/18 2209 AC 10/25 Formoterol Fumarate INH 2210 Clonazepam 0.5 MG QPM 10/18 2200 DC 10/24 PO 10/25 215 2215 Enoxaparin Sodium 40 MG DAILY 10/19 1000 AC 10/25 SC 0827 Fluticasone 2 SPRAY DAILY PRN 10/18 2030 AC Propionate MARIA ANTONIA Furosemide 20 MG Q48H 10/19 1000 AC 10/25 PO 0827 Guaifenesin 10 ML .STK-MED ONE 10/25 2203 DC PO 10/25 220 Guaifenesin 10 ML Q4H PRN 10/18 2030 10/25 PO 220 Insulin Aspart 0 TIDAC/HS 10/19 08 10/25 SC 2209 Magnesium Hydroxide 30 ML DAILY PRN 10/18 2030 AC PO Melatonin 5 MG AT BEDTIME 10/18 2200 AC 10/25 PO 2209 Metoprolol Tartrate 25 MG BID 10/18 2200 10/25 PO 220 Omeprazole 20 MG DAILY AC 10/19 0700 AC 10/26 PO 0553 Oxybutynin Chloride 2.5 MG BID 10/25 0109 AC 10/25 PO 220 Oxycodone HCl 5 MG Q6H PRN 10/26 0030 AC PO Oxycodone HCl 5 MG Q6H PRN 10/18 2015 DC 10/25 PO 1648 Sodium Hypochlorite 1 HILARIA BID 10/19 1442 AC 10/25 TOP 2210 Laboratory Tests 10/26 0545 Hematology CBC w Diff Pending WBC Pending RBC Pending Hgb Pending Hct Pending MCV Pending MCH Pending RDW Pending Plt Count Pending MPV Pending PUBS MCHC Pending Vital Signs Date Time Temp Pulse Resp B/P Pulse O2 O2 Flow FiO2 Ox Delivery Rate 10/26 0015 97.6 72 18 122/58 95 Room Air 10/25 2209 66 120/64 10/25 1601 97.5 76 18 118/56 93 Room Air 10/25 0827 79 126/68 10/25 0821 98.7 79 20 126/68 91 Room Air Intake & Output 10/26 0800 10/26 0000 10/25 1600 Intake Total 300 480 Output Total 880 975 1080 Balance -600 -300 -820 Intake, IV 200 Intake, Oral 100 480 Number 1 Bowel Movements Output, Urine 412 883 7903 Attending note. Patient is fairly stable no change in his current condition On IV Unasyn Awaiting surgery for colostomy diverticular colostomy and suprapubic cystostomy.
[2016-10-26 08:05] LABS: ABSOLUTE BASOPHIL COUNT 0 /CUMM (0.0-0.2); ABSOLUTE EOSINOPHIL COUNT 0.6 /CUMM (0.0-0.7); ABSOLUTE GRANULOCYTE CT 8.8 /CUMM (1.4-6.5); ABSOLUTE LYMPH COUNT 1.5 /CUMM (1.2-3.4); ABSOLUTE MONOCYTE COUNT 1.5 /CUMM (0.10-0.60); BASOPHIL % 0.2 % (0.0-2.0); EOSINOPHIL % 5.1 % (0-5); GRANULOCYTE % 70.6 % (42.2-75.2); HEMATOCRIT 28.5 % (42-52); MEAN CORPUSCULAR HGB 27.9 PG (27.0-31.0); MEAN CORPUSCULAR HGB CONC 32.4 G/DL (33.0-37.0); MEAN PLATELET VOLUME 7.1 FL (7.4-10.4); PLATELET COUNT 624 /CUMM (130-400); RBC DISTRIBUTION WIDTH 17.6 % (11.5-14.5); RED BLOOD CELL CT 3.32 /CUMM (4.70-6.10); WHITE BLOOD CELL COUNT 12.4 /CUMM (4.8-10.8)
--- NOTE | 2016-10-26 08:13 | PN- Wound Care ---
Subjective Subjective: Pathology shows evidence of acute osteomyelitis. Patient remains on antibiotics. Diverting colostomy is planned for next week. Objective Vital Signs and I&Os Vital Signs Result Date Time Pulse Ox 95 10/26 14 B/P 122/58 10/26 14 O2 Delivery Room Air 10/26 14 Temp 97.6 10/26 14 Pulse 72 10/26 14 Resp 18 10/26 14 O2 Flow Rate 2.0L 10/21 0842 Intake & Output 10/26 0000 10/25 1600 10/25 0800 Intake Total 300 480 390 Output Total 600 1300 325 Balance -300 -820 65 Intake, IV 200 150 Intake, Oral 100 480 240 Number 1 2 Bowel Movements Output, Urine 600 1300 325 Exam of the coccyx wound shows 100% slough with exposed bone. Wound measurements remain unchanged approximately 9 x 9 cm. Impression/Plan Impression/Plan Impression/Plan: 71-year-old gentleman paraplegic has a stage IV decubitus ulcer complicated by acute osteomyelitis. Cultures are polymicrobial. Continue use of quarter strength Dakin's moistened gauze wound dressing to be changed twice daily. Patient will likely require further debridement at the time of his surgery for diverting colostomy.
[2016-10-26 08:57] VITALS: BP 140/70
[2016-10-26] MEDS ORDERED: DAKIN'S473 M1 TOP (13:49)
[2016-10-26] MEDS ORDERED: OXYBUTYNIN CHLOR5 M2 PO (13:49)
--- NOTE | 2016-10-26 14:00 | Patient Discharge Instructions ---
Discharge Instructions General Discharge Information You were seen/treated for: Osteomyelitis You had these procedures: Debridgement Special Instructions: 1. Please call Dr. Hayes (colorectal surgeon) on Saturday10/29/16 regarding preoperative plan and possible readmission on . Also Please follow up with Dr. Jung (plastic surgeon) and Dr. Koch (urologist) regarding the surgery ( diverting colostomy & suprapubic cystostomy) scheduled for Saturday (10/31/16). You may also require further debridement at the time of the colostomy. 2. Please follow up with Dr. Koch (urologist) immediately if you have any problems with urination or the zheng catheter. 3. Please follow up with Dr. Liu (primary care physician) in a week of discharge. 4. Please return to ED if you have any fever, chills, worsening redness/pain/ swelling/drainage of the ulcer. 5. Please stop Lovenox the day before the surgery (tentatively scheduled for 09/06). 6. Please continue to use quarter strength Dakin's moistened gauze wound dressing to be changed twice daily. Diet Continue normal diet: Yes Activity Activity Limited to: No weight bearing Acute Coronary Syndrome Inclusion Criteria At DC or during hospital stay patient has or had the following: ACS DIAGNOSIS No Discharge Core Measures Meds if any: Prescribed or Continued at Discharge Meds if any: NOT Prescribed or Continued at Discharge Congestive Heart Failure Inclusion Criteria At DC or during hospital stay patient has or had the following: CHF DIAGNOSIS No Discharge Core Measures Meds if any: Prescribed or Continued at Discharge Meds if any: NOT Prescribed or Continued at Discharge Cerebrovascular accident Inclusion Criteria At DC or during hospital stay patient has or had the following: CVA/TIA Diagnosis No Discharge Core Measures Meds if any: Prescribed or Continued at Discharge Meds if any: NOT Prescribed or Continued at Discharge Venous thromboembolism Inclusion Criteria VTE Diagnosis No VTE Type NONE VTE Confirmed by (Test) NONE Discharge Core Measures - Per Current guidelines, there needs to be overlap - treatment for the first 5 days of Warfarin therapy. - If discharged on Warfarin prior to 5 days of - overlap therapy, the patient will need to be - assessed for post discharge needs including - *Post discharge parental anticoagulation - *Warfarin and/or parental anticoagulation education - *Follow up date to check INR post discharge At least 5 days overlap therapy as Inpatient No Meds if any: Prescribed or Continued at Discharge Note: Overlap Therapy is Warfarin and Anticoagulant Meds if any: NOT Prescribed or Continued at Discharge
--- NOTE | 2016-10-26 14:57 | PN- Infect Dx ---
Subjective Subjective: Afebrile without complaints Objective Last 24 Hrs of Vital Signs/I&O Vital Signs Date Time Temp Pulse Resp B/P Pulse O2 O2 Flow FiO2 Ox Delivery Rate 10/26 0857 98.1 74 18 140/70 94 Room Air 10/26 0810 97.6 72 18 122/58 10/26 0015 97.6 72 18 122/58 95 Room Air 10/25 2209 66 120/64 10/25 1601 97.5 76 18 118/56 93 Room Air Intake & Output 10/26 1600 10/26 0800 10/26 0000 Intake Total 800 460 300 Output Total 600 600 Balance 800 -140 -300 Intake, IV 260 200 Intake, Oral 800 200 100 Number 1 0 1 Bowel Movements Output, Urine 600 600 Physical Exam Other Physical Findings: He appears comfortable in no acute distress Back dressing intact Extremities PICC in the right upper extremity with no inflammation at the site Boston catheter remains in place Results Last 24 Hours of Lab Results: Laboratory Tests 10/26 544 Hematology CBC w Diff NO MAN DIFF REQ WBC (4.8 - 10.8 /CUMM) 12.4 H RBC (4.70 - 6.10 /CUMM) 3.32 L Hgb (14.0 - 18.0 G/DL) 9.3 L Hct (42 - 52 %) 28.5 L MCV (80.0 - 94.0 FL) 86.0 MCH (27.0 - 31.0 PG) 27.9 RDW (11.5 - 14.5 %) 17.6 H Plt Count (130 - 400 /CUMM) 624 H MPV (7.4 - 10.4 FL) 7.1 L Gran % (42.2 - 75.2 %) 70.6 Lymphocytes % (20.5 - 51.1 %) 12.1 L Monocytes % (1.7 - 9.3 %) 12.0 H Eosinophils % (0 - 5 %) 5.1 H Basophils % (0.0 - 2.0 %) 0.2 Absolute Granulocytes (1.4 - 6.5 /CUMM) 8.8 H Absolute Lymphocytes (1.2 - 3.4 /CUMM) 1.5 Absolute Monocytes (0.10 - 0.60 /CUMM) 1.5 H Absolute Eosinophils (0.0 - 0.7 /CUMM) 0.6 Absolute Basophils (0.0 - 0.2 /CUMM) 0 PUBS MCHC (33.0 - 37.0 G/DL) 32.4 L Last 24 Hours of Perfecto Results: OR culture October 22 labeled sacral bone positive for alpha strep, Escherichia coli, Bacteroides probable fragilis and Bacteroides capillosus Assessment/Plan Impression: Stable now on Unasyn Day 4 of treatment for polymicrobial osteomyelitis of the sacrum status post debridement of the necrotic soft tissue overlying the sacrum as well as the coccyx and distal portion of the sacrum 4 days ago with temperatures remain normal and white blood cell count minimally elevated. He will require a four-week course of IV antibiotics. He is apparently scheduled for a diverting colostomy as well as a suprapubic cystostomy next week. Suggestion: 1. Await surgery for diverting colostomy and suprapubic cystostomy next week 2. Continue Unasyn
[2016-10-26 16:24] VITALS: BP 140/70
[2016-10-26 16:58] VITALS: BP 138/76
== END 2016-10-26 19:00 | DRG 853 ==
LOC: ERH 15:52 → 2NB 19:35 → ERHI 19:35 → 2NB 21:39
PROVIDERS: Internal Medicine; Physician Assistant Medical; Radiology Diagnostic Radiology; Student in an Organized Health Care Education/Training Program; ADMIT Internal Medicine
PROC: 0QBS0ZZ Excision of Coccyx, Open Approach (ICD-10-PCS; principal; 2016-10-22)
PROC: 0QB10ZZ Excision of Sacrum, Open Approach (ICD-10-PCS; principal; 2016-10-22)
DX: A41.9 Sepsis, unspecified organism (principal); L89.154 Pressure ulcer of sacral region, stage 4; G82.20 Paraplegia, unspecified; N39.0 Urinary tract infection, site not specified; M86.18 Other acute osteomyelitis, other site; R15.9 Full incontinence of feces; I25.10 Atherosclerotic heart disease of native coronary artery without angina pectoris; I10 Essential (primary) hypertension; E78.5 Hyperlipidemia, unspecified; E11.9 Type 2 diabetes mellitus without complications; K21.9 Gastro-esophageal reflux disease without esophagitis; N31.9 Neuromuscular dysfunction of bladder, unspecified; N39.498 Other specified urinary incontinence; Z85.46 Personal history of malignant neoplasm of prostate; J44.9 Chronic obstructive pulmonary disease, unspecified; Z79.4 Long term (current) use of insulin; Z87.891 Personal history of nicotine dependence
CPT/HCPCS: 2NBP; 87070; 87075; 36415; 81001; 82436; 87040; 87086; 87147; 88304; 93005; 93010; 96374; 96375; C1769; J0131; J0696; J0713; J1650; J3370; J3490; J7040; J7042

== ENCOUNTER 2016-10-30 17:43 | Inpatient (IN) | payer OTHER, MEDICARE ==
[~2016-10-30] VITALS: Ht 175.3 cm; Wt 80.3 kg
[~2016-10-30 17:43] MED LIST changes: +ACEPHEN650 M1 PR; +ACETAMINOPHEN325 M3 PO; +ALPRAZOLAM0.5 M4 PO; +ARTIFICIAL TEA1 EACH OP; +BISACODYL10 M1 RC; +CALCIUM500 M2 PO; +DAKIN'S473 M1 TOP; +FLEET ENEMA133 ML RC; +FLONASE ALLERG9.9 ML NASB; +FLORASTOR250 M1 PO; +METAMUCIL660 GM PO; +MILK OF MA400 MG/52 PO; +OMEGA-31000 M1 PO; +OMEPRAZOLE20 M3 PO; +OXYBUTYNIN CHLOR5 M2 PO; +POTASSIUM CHLO20 ME2 PO; +PROMOD946 ML PO; +Q-TUSSIN100 MG/51 PO
--- NOTE | 2016-10-30 17:56 | ED GENERAL ADULT ---
History of Present Illness General Chief Complaint: General Adult Stated Complaint: BIBA PRE-OP FOR SX TOMORROW Source: patient, EMS, W10 Exam Limitations: no limitations Vital Signs & Intake/Output Vital Signs & Intake/Output Vital Signs Date Time Temp Pulse Resp B/P Pulse O2 O2 Flow FiO2 Ox Delivery Rate 10/30 2101 99.0 85 18 145/63 94 Room Air 10/30 1757 97.9 86 20 152/70 92 Room Air Allergies Coded Allergies: NO KNOWN ALLERGIES (10/18/16) Reconcile Medications Acetaminophen (Acephen) 650 MG SUPP.RECT 1 SUPP IA Q4H PRN PAIN/TEMP>/100 ( Reported) Acetaminophen 325 MG CAPSULE 2 CAP PO Q4H PRN PAIN/TEMP>/100 (Reported) Alprazolam 0.5 MG TABLET 1 TAB PO Q8H PRN ANXIETY (Reported) Ampicillin Sodium/Sulbactam Na (Unasyn 3 Gm Vial) 3 GRAM VIAL 3 GM IV Q6H ANTIBIOTIC (Reported) Aspirin (Children's Aspirin) 81 MG TAB.CHEW 1 TAB PO DAILY HEART HEALTH ( Reported) Baclofen (Lioresal) 10 MG TABLET 1 TAB PO QAM MUSCLE RELAXER (Reported) Bisacodyl 10 MG SUPP.RECT 1 SUP RC PRN CONSTIPATION (Reported) Calcium Carbonate (Calcium) 500 MG CALCIUM (1,250 MG) TAB.CHEW 2 TAB PO Q8H PRN GI DISCOMFORT (Reported) Clonazepam (Klonopin) 0.5 MG TABLET 1 TAB PO QPM SLEEP (Reported) Cyanocobalamin (Vitamin B-12) (B-12) 1,000 MCG TABLET 1 TAB PO DAILY SUPPLEMENT (Reported) Dakins Solution (Dakin's) 0.25 % SOLUTION 1 HILARIA TOP BID ULCER Apply to sacral ulcer twice a day. Dextran 70/Hypromellose (Artificial Tears) 1 EACH DROPERETTE 1 DROP OP TID PRN BOTH EYES (Reported) Fluticasone Propionate (Flonase Allergy Relief) 50 MCG/ACTUATION SPRAY.SUSP 2 SPRAY NASB DAILY PRN NASAL CONGESTION (Reported) Furosemide (Lasix) 20 MG TABLET 1 TAB PO EOD DIURETIC (Reported) Guaifenesin (Q-Tussin) 100 MG/5 ML LIQUID 10 ML PO Q4H PRN COUGH (Reported) Insulin Aspart, Recombinant (Novolog) 100 U/ML DARRON 0 UNITS SC AD GLUCOSE CONTROL (Reported) BLOOD SUGAR # OF UNITS < 80 NONE 80-150 NONE 151-200 4 UNITS 201-250 6 UNITS 251-300 8 UNITS 301-350 10 UNITS 351-400 12 UNITS >400 14 UNITS and call Magnesium Hydroxide (Milk Of Magnesia) 400 MG/5 ML ORAL.SUSP 30 ML PO DAILY PRN CONSTIPATION (Reported) Melatonin 5 MG TAB.SUBL 1 TAB PO QHS SLEEP (Reported) METFORMIN HCL (Metformin) 1,000 MG TABLET 1 TAB PO BID DIABETES (Reported) Methylcellulose (Fiber) (Unknown Strength) TABLET (Unknown Dose) PO DAILY SUPPLEMENT (Reported) Metoprolol Tartrate (Lopressor) 25 MG TABLET 1 TAB PO BID BP/HEART (Reported) MOMETASONE/FORMOTEROL (Dulera 100 Mcg/5 Mcg Inhaler) 100 MCG-5 MCG/ACTUATION HFA.AER.AD 2 PUF INH BID UNKNOWN (Reported) Multivitamin (Multiple Vitamins) 1 EACH TABLET 1 TAB PO QAM SUPPLEMENT ( Reported) Na Phos,M-B/Na Phos,Di-Ba (Fleet Enema) 19 GRAM-7 GRAM/118 ML ENEMA 1 E RC DAILY PRN CONSTIPATION (Reported) [place]-3 Fatty Acids ([place]-3) 1,000 MG CAPSULE 1 CAP PO DAILY SUPPLEMENT ( Reported) Omeprazole 20 MG TABLET.DR 1 TAB PO DAILY GI (Reported) Oxybutynin Chloride 5 MG TABLET 2.5 MG PO BID Urinary incontinence OXYCODONE HCL/ACETAMINOPHEN (Percocet 7.5-325 MG Tablet) 325 MG/7.5 MG TAB 1 TAB PO Q6H PAIN (Reported) Potassium Chloride 20 MEQ TAB.ER.PRT 1 TAB PO DAILY SUPPLEMENT (Reported) Protein Supplement (Promod) 946 ML LIQUID 30 ML PO DAILY SUPPLEMENT (Reported ) Rosuvastatin Calcium (Crestor) 20 MG TABLET 1 TAB PO DAILY CHOLESTEROL ( Reported) Saccharomyces Boulardii (Florastor) (Unknown Strength) CAPSULE 1 CAP PO DAILY SUPPLEMENT (Reported) Triage Nurses Notes Reviewed? 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 Patient states that he is a chronic rectal wound for the past 5 weeks and was sent to have a diverting colostomy in attempt to heal the wound. He thinks Dr. Koch is doing sternal pubic catheter and he thinks Dr. Jung's doing the colostomy. He is a patient of Dr. eng. No fever or chills. No abdominal pain. He states he has no complaints at this time. He is unsure of why they sent him to the ER for admission. History of paralysis since 2012 which happen while he was getting his AAA corrected. He states he supple a spinal stroke at that time. (JAZMÍN CARUSO MD) Past History Travel History Traveled to [place] past 21 day No Medical History Any Pertinent Medical History? see below for history Neurological: PARAPLEGIA STATUS POST SPINAL SHOCK POSTOP EENT: NONE Cardiovascular: CAD, hypertension, hyperlipidemia, ABDOMINAL ANEURYSM Respiratory: asthma Gastrointestinal: GERD Renal: neurogenic bladder, UTI Musculoskeletal: decubitis ulcer (OSTEOMYELITIS) Psychiatric: anxiety, depression Endocrine: DIABETES TYPE 2 Cancer(s): prostate cancer History of MRSA: Yes History of VRE: No History of CDIFF: No Pneumonia Vaccine: 08/07/13 Influenza Vaccine: 09/04/16 Surgical History Surgical History: AAA repair x2 once 2002, and 2013 Psychosocial History Who do you live with Paid Attentent Services at Home Nursing What is your primary language Sami Family History Family History, If Any: MOTHER FH: coronary artery disease FH: diabetes mellitus BROTHER FH: diabetes mellitus SISTER Hx Contributory? No (JAZMÍN CARUSO MD) Review of Systems Review of Systems Constitutional: Denies: chills, fever. EENTM: Reports: no symptoms. Respiratory: Denies: cough, short of breath, sputum production. Cardiovascular: Denies: chest pain, palpitations. GI: Reports: see HPI (RECTAL WOUND). Denies: abdominal pain. Genitourinary: Reports: no symptoms. Musculoskeletal: Reports: no symptoms. Skin: Reports: no symptoms. Neurological/Psychological: Reports: no symptoms. Hematologic/Endocrine: Denies: bruising, bleeding, polyuria, polydipsia. Immunologic/Allergic: Denies: splenectomy. All Other Systems: Reviewed and Negative (JAZMÍN CARUSO MD) Physical Exam Physical Exam General Appearance: well developed/nourished, alert, awake, mild distress Head: atraumatic, normal appearance Eyes: Bilateral: normal appearance, PERRL, EOMI. Neck: normal inspection, supple, full range of motion Respiratory: normal breath sounds, chest non-tender, no respiratory distress Cardiovascular: regular rate/rhythm Gastrointestinal: soft, non-tender Rectal: NONVISUALIZED IN ed Extremities: BILATERAL LOWER EXTREMITY PARALYSIS Neurologic/Psych: awake, alert, oriented x 3 Skin: intact, normal color, warm/dry Core Measures ACS in differential dx? No CVA/TIA Diagnosis: No Severe Sepsis Present: No Septic Shock Present: No (ZULY MULLIGAN,JAZMÍN) Progress Differential Diagnoses I considered the following diagnoses in my evaluation of the patient: [Chronic rectal wound, awaiting diverting colostomy and suprapubic catheterization] Plan of Care: Orders Procedure Date/time Status Nothing by Mouth 10/31 B Active Clear Liquid Diet 10/30 D Complete Admit to inpatient 10/30 2127 Active Pathway - chart 10/30 2113 Active Patient Data 10/30 2113 Active Code Status 10/30 2113 Active Intake & Output 10/30 192 Active URINALYSIS 10/30 180 Complete TROPONIN LEVEL 10/30 180 Complete PARTIAL THROMBOPLASTIN TIME 10/30 1804 Complete PROTHROMBIN TIME 10/30 1804 Complete COMPREHENSIVE METABOLIC PANEL 10/30 1804 Complete CBC WITHOUT DIFFERENTIAL 10/30 1804 Complete EKG 10/30 1804 Active TYPE & SCREEN (NOT X-MATCH) 10/30 1804 Complete VTE Mechanical Prophylaxis 10/30 UNK Active Vital Signs 10/30 UNK Active Activity/Ambulation 10/30 UNK Active Current Medications Sig/Mey Start time Last Medication Dose Stop Time Status Admin Fluticasone 2 SPRAY DAILY 10/31 1000 UNVr Propionate (Flonase) Omeprazole 20 MG DAILY AC 10/31 0700 UNVr (Prilosec) Insulin Human Regular 0 Q6 10/31 0000 UNVr (Novolin R Inj (Npo Patient)) Clonazepam 0.5 MG QPM 10/30 2200 AC (KlonoPIN) 11/06 2158 Metoprolol Tartrate 25 MG BID 10/30 2199 UNVr (Lopressor) Sodium Hypochlorite 1 HILARIA BID 10/30 2200 AC Alprazolam 0.5 MG TID PRN 10/30 213 AC (Xanax) 11/06 2128 Artificial Tears 1 GTT TID PRN 10/30 2129 AC (Tears Natural) Furosemide 20 MG .[EOD] 10/30 2129 UNVr (Lasix) Guaifenesin 10 ML Q4H PRN 10/30 2129 AC (Robitussin) Melatonin 5 MG .[QHS] 10/30 2129 UNVr (Melatonin) Ampicillin Sodium/ 3,000 MG Q6H 10/30 2114 UNVr Sulbactam Sodium (Unasyn) Laboratory Tests 10/30/161916: Anion Gap 13, Estimated GFR > 60, BUN/Creatinine Ratio 28.6 H, Glucose 113 H, Calcium 9.2, Total Bilirubin 0.3, AST 21, ALT 29, Alkaline Phosphatase 99, Troponin I < 0.01, Total Protein 7.2, Albumin 3.0 L, Globulin 4.2, Albumin/ Globulin Ratio 0.7 L, PT 12.4, INR 1.18 H, APTT 33, CBC w Diff MAN DIFF ORDERED, RBC 3.28 L, MCV 86.4, MCH 27.8, RDW 17.8 H, MPV 7.0 L, Gran % 82.7 H, Lymphocytes % 7.0 L, Monocytes % 6.6, Eosinophils % 3.7, Basophils % 0 L, Absolute Granulocytes 18.7 H, Absolute Lymphocytes 1.6, Absolute Monocytes 1.5 H, Absolute Eosinophils 0.8, Absolute Basophils 0, Platelet Estimate INCREASED, Hypochromic-Microcytic 1+, Poikilocytosis RARE, Stomatocytes RARE, PUBS MCHC 32.2 L, Urinalysis LIGHT H, Urine Color YEL, Urine Clarity HAZY H, Urine pH 6.0, Ur Specific [place] 1.025, Urine Protein 30 H, Urine Ketones NEG, Urine Nitrite NEG, Urine Bilirubin NEG, Urine Urobilinogen 0.2, Ur Leukocyte Esterase MOD H, Ur Microscopic SEDIMENT EXAMINED, Urine RBC 50-75 H, Urine WBC 50-75 H , Ur Epithelial Cells RARE, Urine Mucus MOD H, Urine Hemoglobin LARGE H, Urine Glucose NEG Labs, EKG, preop chest x-ray ordered. I discussed the case with surgical SHIRLEY romeo who will discuss the case with Slim Irizarry DO who is due to do colostomy. (ZULY MULLIGAN,JAZMÍN) Diagnostic Imaging: Viewed by Me: Radiology Read. Discussed w/RAD: Radiology Read. Initial ED EKG: NSR, INFERIOR Q WAVES Prior EKG: unchanged Hand-Off Endorsed To: BARB JULIAN MD Endorsed Time: 1916 Pending: labs, other (SURGICAL CONSULT/DISPO), Xray (JAZMÍN CARUSO MD) Comments: 10/30/2016 8:58:23 PM Bennett is being admitted and being prepped for surgery. I discussed his case with Dr. COLE does not feel the patient requires a medical admission at this time but he will consult for any medical concerns. Surgical PA updated. (BARB JULIAN MD) Departure Departure Disposition: STILL A PATIENT Condition: Stable Clinical Impression Primary Impression: Puncture wound of rectum, open Referrals: SLIM COLE MD (PCP/Family) Departure Forms: Customer Survey General Discharge Information (JAZMÍN CARUSO MD) Admission Note Spoke With: SLIM IRIZARRY JR, DO Documentation of Exam: Documentation of any treatments & extenuating circumstances including Concerns Regarding Discharge (functional status, medication knowledge or non-compliance, living conditions, etc.) that warrant an admission rather than observation: Patient requires a colostomy and suprapubic catheter placement. The patient is suffering a chronic perirectal wound and requires a diverting colostomy for proper wound healing. The patient's wound places him at risk of sepsis cellulitis abscess and fistula formation. He now requires operative intervention to enhance wound healing capabilities. I feel he will require a multiple day hospitalization given his age and medical comorbidities. PA/FARE REGISTER REPAIRER Co-Sign Statement Statement: ED Attending supervision documentation- [x] I saw and evaluated the patient. I have also reviewed all the pertinent lab results and diagnostic results. I agree with the findings and the plan of care as documented in the PA's/FARE REGISTER REPAIRER's documentation. [] I have reviewed the ED Record and agree with the PA's/FARE REGISTER REPAIRER's documentation. [] Additions or exceptions (if any) to the PAs/FARE REGISTER REPAIRER's note and plan are summarized below: [] (BARB JULIAN MD) Critical Care Note Critical Care Note Critical Care Time: non-applicable (JAZMÍN CARSUO MD)
--- NOTE | 2016-10-30 18:00 | NUR ---
PT BIBA FROM [facility] FOR PRE-OP WORKUP. PT STATES HE IS SCHEDULED FOR SUPRA PUBIC TUBE AND COLOSTOMY BAG PLACEMENT ON 10/31/16. PT SENT TO ED BY [facility] FOR ADMISSION FOR HIS SURGERY TOMORROW. PT ARRIVES WITH JUWAN PICC LINE, PT STATES HE IS ON IV ABX FOR PRESSURE ULCER TO COCCYX. PT HAS NO COMPLAINTS.
[2016-10-30] MEDS ORDERED: UNASYN 3 GM VIAL3 GM IV (18:12)
[2016-10-30] MEDS ORDERED: B-121000 MC3 PO (18:13)
[2016-10-30] MEDS ORDERED: FIBER500 MG PO (18:18)
--- NOTE | 2016-10-30 19:22 | NUR ---
LABS SENT (SST,LAV,BLUE,PINK,URINE TRIO.)
[2016-10-30 19:57] LABS: ABSOLUTE BASOPHIL COUNT 0 /CUMM (0.0-0.2); ABSOLUTE LYMPH COUNT 1.6 /CUMM (1.2-3.4); RED BLOOD CELL CT 3.28 /CUMM (4.70-6.10)
[2016-10-30 19:58] LABS: PT 12.4 SEC (9.4-12.5); PTT 33 SEC (25-37)
--- NOTE | 2016-10-30 19:59 | RADIOLOGY REPORT ---
EXAMINATION:\H\ \N\XR CHEST CLINICAL INFORMATION: Preop. COMPARISON: Chest x-ray 10/18/2016, 10/24/2016 TECHNIQUE: Single AP view of the chest was obtained. 6:59 PM FINDINGS: PICC line catheter tip in superior vena cava unchanged since prior study in position. Status post median sternotomy. Heart size is enlarged. Asymmetric elevation of left diaphragm compared to right. There is no acute abnormality. No pulmonary vascular congestion. No infiltrate or pleural effusion. No pneumothorax. IMPRESSION: No acute abnormality of the chest.
[2016-10-30 20:05] LABS: ABSOLUTE EOSINOPHIL COUNT 0.8 /CUMM (0.0-0.7); ABSOLUTE GRANULOCYTE CT 18.7 /CUMM (1.4-6.5); ABSOLUTE MONOCYTE COUNT 1.5 /CUMM (0.10-0.60); BASOPHIL % 0 % (0.0-2.0); EOSINOPHIL % 3.7 % (0-5); GRANULOCYTE % 82.7 % (42.2-75.2); HEMATOCRIT 28.3 % (42-52); MEAN CORPUSCULAR HGB 27.8 PG (27.0-31.0); MEAN CORPUSCULAR HGB CONC 32.2 G/DL (33.0-37.0); MEAN CORPUSCULAR VOLUME 86.4 FL (80.0-94.0); PLATELET COUNT 608 /CUMM (130-400); RBC DISTRIBUTION WIDTH 17.8 % (11.5-14.5)
[2016-10-30 20:09] LABS: WHITE BLOOD CELL COUNT 22.6 /CUMM (4.8-10.8)
--- NOTE | 2016-10-30 20:33 | NUR ---
SURGICAL PA TO BEDSIDE FOR EVAL. PT ORDERED CLEAR LIQUID DIET NOW AND NPO AFTER MIDNIGHT. PT PROVIDED WITH PITCHER.
--- NOTE | 2016-10-30 21:24 | Admission Core Measures ---
Admission Lab Results I reviewed the following labs: Laboratory Tests 10/30 1916 Chemistry Sodium (137 - 145 mmol/L) 136 L Potassium (3.5 - 5.1 mmol/L) 4.3 Chloride (98 - 107 mmol/L) 96 L Carbon Dioxide (22 - 30 mmol/L) 27 Anion Gap (5 - 16) 13 BUN (9 - 20 mg/dL) 20 Creatinine (0.7 - 1.2 mg/dL) 0.7 Estimated GFR (>60 ml/min) > 60 BUN/Creatinine Ratio (7 - 25 %) 28.6 H Glucose (65 - 99 mg/dL) 113 H Calcium (8.4 - 10.2 mg/dL) 9.2 Total Bilirubin (0.2 - 1.3 mg/dL) 0.3 AST (17 - 59 U/L) 21 ALT (21 - 72 U/L) 29 Alkaline Phosphatase (< 127 U/L) 99 Troponin I (<0.11 ng/ml) < 0.01 Total Protein (6.3 - 8.2 g/dL) 7.2 Albumin (3.5 - 5.0 g/dL) 3.0 L Globulin (1.9 - 4.2 gm/dL) 4.2 Albumin/Globulin Ratio (1.1 - 2.2 %) 0.7 L Coagulation PT (9.4 - 12.5 SEC) 12.4 INR (0.90 - 1.17) 1.18 H APTT (25 - 37 SEC) 33 Hematology CBC w Diff MAN DIFF ORDERED WBC (4.8 - 10.8 /CUMM) Pending RBC (4.70 - 6.10 /CUMM) Pending Hgb (14.0 - 18.0 G/DL) Pending Hct (42 - 52 %) Pending MCV (80.0 - 94.0 FL) Pending MCH (27.0 - 31.0 PG) Pending RDW (11.5 - 14.5 %) Pending Plt Count (130 - 400 /CUMM) Pending MPV (7.4 - 10.4 FL) Pending Gran % (42.2 - 75.2 %) Pending Lymphocytes % (20.5 - 51.1 %) Pending Monocytes % (1.7 - 9.3 %) Pending Eosinophils % (0 - 5 %) Pending Basophils % (0.0 - 2.0 %) Pending Absolute Granulocytes (1.4 - 6.5 /CUMM) Pending Segmented Neutrophils (42.2 - 75.2 %) Pending Absolute Lymphocytes (1.2 - 3.4 /CUMM) Pending Absolute Monocytes (0.10 - 0.60 /CUMM) Pending Absolute Eosinophils (0.0 - 0.7 /CUMM) Pending Absolute Basophils (0.0 - 0.2 /CUMM) Pending PUBS MCHC (33.0 - 37.0 G/DL) Pending Urines Urinalysis LIGHT H Urine Color (YEL,AMB,STR) YEL Urine Clarity (CLEAR) HAZY H Urine pH (5.0 - 8.0) 6.0 Ur Specific [place] (1.001 - 1.035) 1.025 Urine Protein (NEG,<30 MG/DL) 30 H Urine Ketones (NEG) NEG Urine Nitrite (NEG) NEG Urine Bilirubin (NEG) NEG Urine Urobilinogen (0.1 - 1.0 EU/dl) 0.2 Ur Leukocyte Esterase (NEG) MOD H Ur Microscopic SEDIMENT EXAMINED Urine RBC (0 - 5 /HPF) 50-75 H Urine WBC (0 - 2 /HPF) 50-75 H Ur Epithelial Cells (NONE,FEW) RARE Urine Mucus (FEW,NONE) MOD H Urine Hemoglobin (NEG) LARGE H Urine Glucose (N MG/DL) NEG Admission Meds I reviewed the following Meds: Current Medications Sig/Mey Start time Last Medication Dose Stop Time Status Admin Alprazolam 0.5 MG TID PRN 10/30 2129 UNVr (Xanax) 11/06 2128 Ampicillin Sodium/ 3,000 MG Q6H 10/30 2114 UNVr Sulbactam Sodium (Unasyn) Artificial Tears 1 GTT TID PRN 10/30 2129 UNVr (Tears Natural) Clonazepam 0.5 MG QPM 10/30 2199 UNVr (KlonoPIN) 11/06 2158 Dextrose/Sodium 1,000 ML .Q10H 10/30 2114 UNVr Chloride (D5W-1/2 Normal Saline 1000ML) Fluticasone 2 SPRAY DAILY 10/31 1000 UNVr Propionate (Flonase) Furosemide 20 MG .[EOD] 10/30 2129 UNVr (Lasix) Guaifenesin 10 ML Q4H PRN 10/30 2129 UNVr (Robitussin) Melatonin 5 MG .[QHS] 10/30 2129 UNVr (Melatonin) Metoprolol Tartrate 25 MG BID 10/30 2199 UNVr (Lopressor) Metronidazole 500 MG ONCE ONE 10/30 2199 AC (Flagyl) 10/30 2200 Neomycin Sulfate 1,000 MG ONCE ONE 10/30 2199 AC (Neomycin Sulfate 10/30 2200 500MG Tab) Omeprazole 20 MG DAILY AC 10/31 07 UNVr (Prilosec) Sodium Hypochlorite 1 HILARIA BID 10/30 2199 UNVr Acute Coronary Syndrome Inclusion Criteria ACS Diagnosis No Inpatient Core Measures LDL Reminder: If No, please order W/I first 24hr of stay Congestive Heart Failure Inclusion Criteria CHF Diagnosis No Cerebrovascular accident Inclusion Criteria CVA/TIA Diagnosis No Inpatient Core Measures Bedside Swallow Eval Reminder: If BSE failed, place ST order Antithrombotic Reminder: Order Antithrombotic Medication by end of day 2 Antithrombotic Reminder: Document Reason Antithrombotic Not ordered by end of day 2 AFIB/Flutter Reminder: If Present, add to problem list AFIB/Flutter Reminder: Order Anticoag Medication for pts with AFIB/Flutter Atherosclerosis Reminder: If Present, add to problem list LDL Reminder: If No, please order W/I first 24hr of stay PT Order Reminder: If No, please order Venous thromboembolism Inpatient Core Measures VTE Risk Factors: Age > 40, Surgery VTE Prophylaxis Ordered Inpt Mechanical (ALPS[facility]TEDS) [facility]t No contraindications No VTE Pharm Prophylaxis d/t Surgical contraindication Inclusion Criteria - Per Current guidelines, there needs to be overlap - treatment for the first 5 days of Warfarin therapy. - Parenteral Anticoagulation (IV or SC) needs to be - given along with Warfarin therapy. VTE Diagnosis No VTE Type NONE VTE Confirmed by (Test) NONE Problem List As ranked by this Provider includes Assessment & Plan 1. Decubitus ulcer 2. Puncture wound of rectum, open HOME MEDS Home Med List Acetaminophen (Acephen) 650 MG SUPP.RECT 1 SUPP ME Q4H PRN PAIN/TEMP>/100 ( Reported) Acetaminophen 325 MG CAPSULE 2 CAP PO Q4H PRN PAIN/TEMP>/100 (Reported) Alprazolam 0.5 MG TABLET 1 TAB PO Q8H PRN ANXIETY (Reported) Ampicillin Sodium/Sulbactam Na (Unasyn 3 Gm Vial) 3 GRAM VIAL 3 GM IV Q6H ANTIBIOTIC (Reported) Aspirin (Children's Aspirin) 81 MG TAB.CHEW 1 TAB PO DAILY HEART HEALTH ( Reported) Baclofen (Lioresal) 10 MG TABLET 1 TAB PO QAM MUSCLE RELAXER (Reported) Bisacodyl 10 MG SUPP.RECT 1 SUP RC PRN CONSTIPATION (Reported) Calcium Carbonate (Calcium) 500 MG CALCIUM (1,250 MG) TAB.CHEW 2 TAB PO Q8H PRN GI DISCOMFORT (Reported) Clonazepam (Klonopin) 0.5 MG TABLET 1 TAB PO QPM SLEEP (Reported) Cyanocobalamin (Vitamin B-12) (B-12) 1,000 MCG TABLET 1 TAB PO DAILY SUPPLEMENT (Reported) Dakins Solution (Dakin's) 0.25 % SOLUTION 1 HILARIA TOP BID ULCER Dextran 70/Hypromellose (Artificial Tears) 1 EACH DROPERETTE 1 DROP OP TID PRN BOTH EYES (Reported) Fluticasone Propionate (Flonase Allergy Relief) 50 MCG/ACTUATION SPRAY.SUSP 2 SPRAY NASB DAILY PRN NASAL CONGESTION (Reported) Furosemide (Lasix) 20 MG TABLET 1 TAB PO EOD DIURETIC (Reported) Guaifenesin (Q-Tussin) 100 MG/5 ML LIQUID 10 ML PO Q4H PRN COUGH (Reported) Insulin Aspart, Recombinant (Novolog) 100 U/ML DARRON 0 UNITS SC AD GLUCOSE CONTROL (Reported) Magnesium Hydroxide (Milk Of Magnesia) 400 MG/5 ML ORAL.SUSP 30 ML PO DAILY PRN CONSTIPATION (Reported) Melatonin 5 MG TAB.SUBL 1 TAB PO QHS SLEEP (Reported) METFORMIN HCL (Metformin) 1,000 MG TABLET 1 TAB PO BID DIABETES (Reported) Methylcellulose (Fiber) (Unknown Strength) TABLET (Unknown Dose) PO DAILY SUPPLEMENT (Reported) Metoprolol Tartrate (Lopressor) 25 MG TABLET 1 TAB PO BID BP/HEART (Reported) MOMETASONE/FORMOTEROL (Dulera 100 Mcg/5 Mcg Inhaler) 100 MCG-5 MCG/ACTUATION HFA.AER.AD 2 PUF INH BID UNKNOWN (Reported) Multivitamin (Multiple Vitamins) 1 EACH TABLET 1 TAB PO QAM SUPPLEMENT ( Reported) Na Phos,M-B/Na Phos,Di-Ba (Fleet Enema) 19 GRAM-7 GRAM/118 ML ENEMA 1 E RC DAILY PRN CONSTIPATION (Reported) [place]-3 Fatty Acids ([place]-3) 1,000 MG CAPSULE 1 CAP PO DAILY SUPPLEMENT ( Reported) Omeprazole 20 MG TABLET.DR 1 TAB PO DAILY GI (Reported) Oxybutynin Chloride 5 MG TABLET 2.5 MG PO BID Urinary incontinence OXYCODONE HCL/ACETAMINOPHEN (Percocet 7.5-325 MG Tablet) 325 MG/7.5 MG TAB 1 TAB PO Q6H PAIN (Reported) Potassium Chloride 20 MEQ TAB.ER.PRT 1 TAB PO DAILY SUPPLEMENT (Reported) Protein Supplement (Promod) 946 ML LIQUID 30 ML PO DAILY SUPPLEMENT (Reported ) Rosuvastatin Calcium (Crestor) 20 MG TABLET 1 TAB PO DAILY CHOLESTEROL ( Reported) Saccharomyces Boulardii (Florastor) (Unknown Strength) CAPSULE 1 CAP PO DAILY SUPPLEMENT (Reported)
[2016-10-30 23:17] VITALS: BP 138/65
--- NOTE | 2016-10-31 00:35 | History & Physical Pre-Op ---
GREYDEJAN 10/31/16 0027: General Information and HPI MD Statement: I have seen and personally examined YOLANDA SUMMERS and documented this H&P. The patient is a 71 year old M who presented with a patient stated chief complaint of pre operative managment, patient to undergo colostomy and placement of a suprapubic catheter on 10/31/2016. History of Present Illness: This is a 71-year-old male with history of paraplegia from [facility] sent for preoperative admission for colostomy and supra pubic tube procedure tomorrow. Patient states that he has a chronic rectal wound for the past 5 weeks and was sent to have a diverting colostomy in attempt to heal the wound. No fever or chills. No abdominal pain. History of paralysis since 2012 which happened while he was getting his AAA corrected. He states he suffered a spinal stroke at that time. Allergies/Medications Allergies: Coded Allergies: NO KNOWN ALLERGIES (10/18/16) Home Med list Acetaminophen (Acephen) 650 MG SUPP.RECT 1 SUPP ND Q4H PRN PAIN/TEMP>/100 ( Reported) Acetaminophen 325 MG CAPSULE 2 CAP PO Q4H PRN PAIN/TEMP>/100 (Reported) Alprazolam 0.5 MG TABLET 1 TAB PO Q8H PRN ANXIETY (Reported) Ampicillin Sodium/Sulbactam Na (Unasyn 3 Gm Vial) 3 GRAM VIAL 3 GM IV Q6H ANTIBIOTIC (Reported) Aspirin (Children's Aspirin) 81 MG TAB.CHEW 1 TAB PO DAILY HEART HEALTH ( Reported) Baclofen (Lioresal) 10 MG TABLET 1 TAB PO QAM MUSCLE RELAXER (Reported) Bisacodyl 10 MG SUPP.RECT 1 SUP RC PRN CONSTIPATION (Reported) Calcium Carbonate (Calcium) 500 MG CALCIUM (1,250 MG) TAB.CHEW 2 TAB PO Q8H PRN GI DISCOMFORT (Reported) Clonazepam (Klonopin) 0.5 MG TABLET 1 TAB PO QPM SLEEP (Reported) Cyanocobalamin (Vitamin B-12) (B-12) 1,000 MCG TABLET 1 TAB PO DAILY SUPPLEMENT (Reported) Dakins Solution (Dakin's) 0.25 % SOLUTION 1 HILARIA TOP BID ULCER Apply to sacral ulcer twice a day. Dextran 70/Hypromellose (Artificial Tears) 1 EACH DROPERETTE 1 DROP OP TID PRN BOTH EYES (Reported) Fluticasone Propionate (Flonase Allergy Relief) 50 MCG/ACTUATION SPRAY.SUSP 2 SPRAY NASB DAILY PRN NASAL CONGESTION (Reported) Furosemide (Lasix) 20 MG TABLET 1 TAB PO EOD DIURETIC (Reported) Guaifenesin (Q-Tussin) 100 MG/5 ML LIQUID 10 ML PO Q4H PRN COUGH (Reported) Insulin Aspart, Recombinant (Novolog) 100 U/ML DARRON 0 UNITS SC AD GLUCOSE CONTROL (Reported) BLOOD SUGAR # OF UNITS < 80 NONE 80-150 NONE 151-200 4 UNITS 201-250 6 UNITS 251-300 8 UNITS 301-350 10 UNITS 351-400 12 UNITS >400 14 UNITS and call Magnesium Hydroxide (Milk Of Magnesia) 400 MG/5 ML ORAL.SUSP 30 ML PO DAILY PRN CONSTIPATION (Reported) Melatonin 5 MG TAB.SUBL 1 TAB PO QHS SLEEP (Reported) METFORMIN HCL (Metformin) 1,000 MG TABLET 1 TAB PO BID DIABETES (Reported) Methylcellulose (Fiber) (Unknown Strength) TABLET (Unknown Dose) PO DAILY SUPPLEMENT (Reported) Metoprolol Tartrate (Lopressor) 25 MG TABLET 1 TAB PO BID BP/HEART (Reported) MOMETASONE/FORMOTEROL (Dulera 100 Mcg/5 Mcg Inhaler) 100 MCG-5 MCG/ACTUATION HFA.AER.AD 2 PUF INH BID UNKNOWN (Reported) Multivitamin (Multiple Vitamins) 1 EACH TABLET 1 TAB PO QAM SUPPLEMENT ( Reported) Na Phos,M-B/Na Phos,Di-Ba (Fleet Enema) 19 GRAM-7 GRAM/118 ML ENEMA 1 E RC DAILY PRN CONSTIPATION (Reported) Newport-3 Fatty Acids (Newport-3) 1,000 MG CAPSULE 1 CAP PO DAILY SUPPLEMENT ( Reported) Omeprazole 20 MG TABLET.DR 1 TAB PO DAILY GI (Reported) Oxybutynin Chloride 5 MG TABLET 2.5 MG PO BID Urinary incontinence OXYCODONE HCL/ACETAMINOPHEN (Percocet 7.5-325 MG Tablet) 325 MG/7.5 MG TAB 1 TAB PO Q6H PAIN (Reported) Potassium Chloride 20 MEQ TAB.ER.PRT 1 TAB PO DAILY SUPPLEMENT (Reported) Protein Supplement (Promod) 946 ML LIQUID 30 ML PO DAILY SUPPLEMENT (Reported ) Rosuvastatin Calcium (Crestor) 20 MG TABLET 1 TAB PO DAILY CHOLESTEROL ( Reported) Saccharomyces Boulardii (Florastor) (Unknown Strength) CAPSULE 1 CAP PO DAILY SUPPLEMENT (Reported) Past History Medical History Neurological: PARAPLEGIA STATUS POST SPINAL SHOCK POSTOP EENT: NONE Cardiovascular: CAD, hypertension, hyperlipidemia, ABDOMINAL ANEURYSM Respiratory: asthma Gastrointestinal: GERD Renal: neurogenic bladder, UTI Musculoskeletal: decubitis ulcer (OSTEOMYELITIS) Psychiatric: anxiety, depression Endocrine: DIABETES TYPE 2 Cancer(s): prostate cancer History of MRSA: Yes History of VRE: No History of CDIFF: No Pneumonia Vaccine: 08/07/13 Influenza Vaccine: 09/04/16 Surgical History Pertinent Surgical History: AAA repair x2 once 2002, and 2013 Past Family/Social History Family History Relations & Conditions if any MOTHER FH: coronary artery disease FH: diabetes mellitus BROTHER FH: diabetes mellitus SISTER Psychosocial History Services at Home Nursing Primary Language: Sami ETOH Use: denies use Illicit Drug Use: denies illicit drug use Functional Ability ADLs Independent: eating. Needs Assist: dressing, toileting, bathing. Ambulation: non-ambulatory IADLs Needs Assist: shopping, housework, finances, food prep, telephone, transportation, medication admin. Review of Systems Review of Systems: Constitutional: Denies: chills, fever. EENTM: Reports: no symptoms. Respiratory: Denies: cough, short of breath, sputum production. Cardiovascular: Denies: chest pain, palpitations. GI: Reports: see HPI (RECTAL WOUND). Denies: abdominal pain. Genitourinary: Reports: no symptoms. Musculoskeletal: Reports: no symptoms. Skin: Reports: no symptoms. Neurological/Psychological: Reports: no symptoms. Hematologic/Endocrine: Denies: bruising, bleeding, polyuria, polydipsia. Immunologic/Allergic: Denies: splenectomy. All Other Systems: Reviewed and Negative Exam & Diagnostic Data Last 24 Hrs of Vital Signs/I&O Vital Signs Date Time Temp Pulse Resp B/P Pulse O2 O2 Flow FiO2 Ox Delivery Rate 10/30 2330 100.0 79 16 138/65 10/30 2317 100.0 79 16 138/65 92 10/30 2250 100.4 79 16 138/65 92 Room Air 10/30 2101 99.0 85 18 145/63 94 Room Air 10/30 1757 97.9 86 20 152/70 92 Room Air Intake & Output 10/31 0800 10/31 0000 10/30 1600 Intake Total Output Total Balance Patient 177 lb Weight Physical Exam: General Appearance: well developed/nourished, alert, awake, mild distress Head: atraumatic, normal appearance Eyes: Bilateral: normal appearance, PERRL, EOMI. Neck: normal inspection, supple, full range of motion Respiratory: normal breath sounds, chest non-tender, no respiratory distress Cardiovascular: regular rate/rhythm Gastrointestinal: soft, non-tender Rectal: NONVISUALIZED IN ed Extremities: BILATERAL LOWER EXTREMITY PARALYSIS Neurologic/Psych: awake, alert, oriented x 3 Skin: intact, normal color, warm/dry Assessment/Plan Assessment/Plan: -Admit to surgery -CBC, BEP, T&S -CXR, EKG -clear liquid diet for dinner -NPO after midnight -Flagyll 500 po at 10 pm -neomycin 1g po at 10 pm -continue home meds -plan for OR 10/31/16 As Ranked By This Provider Problem List: 1. Decubitus ulcer SLIM MAGDALENO DO 10/31/16 1205: General Information and HPI MD Statement: I have seen and personally examined MELINAYOLANDA Salomon and documented this H&P. The patient is a 71 year old M who presented with a patient stated chief complaint of []. Attending MD Review Statement Attending Statement Attending MD Statement: discuss w/resident/PA/TORTILLA MAKER Attending Assessment/Plan: Patient well known to me Patient is paraplegic history of recurrent/chronic fissure ulcers. Patient also has both fecal and urinary incontinence Recently admitted for management of these ulcers. 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 Patient being admitted preoperatively to help prepare for surgery as he is bedbound
[2016-10-31 06:05] VITALS: BP 155/70
--- NOTE | 2016-10-31 07:17 | PN- Att Addend ---
Attending Addendum Attending Brief Note Medical attending note. 8-year-old gentleman admitted to the hospital from the [facility] for surgery scheduled to have a diverting colostomy and a suprapubic catheter inserted for the treatment of large decubitus causing osteomyelitis of the sacrum. Patient currently on Unasyn 3 g once a day. History of recurrent decubitus ulcer for this one is pretty large about 10 cm x 10 cm present over the sacral area. Causing osteomyelitis of the sacrum Parents past medical history history of coronary artery disease hypertension dyslipidemia status post repair of abdominal aortic aneurysm patient developed a paraplegia after surgery History of for COPD diabetes depression neurogenic bladder recurrent urinary tract infections Intake & Output 10/31 0800 10/31 0000 10/30 1600 Intake Total Output Total 1400 Balance -1400 Number 3 Bowel Movements Output, Urine 1400 Patient 177 lb Weight Current Medications Sig/Mey Start time Last Medication Dose Route Stop Time Status Admin Alprazolam 0.5 MG TID PRN 10/30 2130 AC PO 11/06 2128 Ampicillin Sodium/ 3,000 MG Q6H 10/31 0530 10/31 Sulbactam Sodium IV 0507 Sodium Chloride 100 ML Ampicillin Sodium/ 0 .STK-MED ONE 10/31 0341 DC Sulbactam Sodium .ROUTE Ampicillin Sodium/ 0 .STK-MED ONE 10/31 0331 DC Sulbactam Sodium .ROUTE Ampicillin Sodium/ 0 .STK-MED ONE 10/30 2300 DC Sulbactam Sodium .ROUTE Ampicillin Sodium/ 3,000 MG Q6H 10/30 2114 DC 10/30 Sulbactam Sodium IV 2330 Artificial Tears 1 GTT TID PRN 10/300 AC OU Ceftriaxone Sodium 0 .STK-MED ONE 10/30 2111 DC .ROUTE Ceftriaxone Sodium 1,000 MG ONCE ONE 10/30 2044 DC 10/30 IV 10/30 2045 213 Clonazepam 0 .STK-MED ONE 10/30 2300 DC PO Clonazepam 0.5 MG QPM 10/30 2200 AC 10/30 PO 11/06 215 2330 Dextrose/Sodium 1,000 ML .Q10H 10/305 AC 10/30 Chloride IV 2131 Fluticasone 2 SPRAY DAILY 10/31 1000 AC Propionate MARIA ANTONIA Furosemide 20 MG Q48 11/01 1000 AC PO Guaifenesin 0 .STK-MED ONE 10/31 0251 DC PO Guaifenesin 10 ML Q4H PRN 10/300 AC 10/31 PO 0254 Insulin Human Regular 0 Q6 10/31 0000 AC 10/31 SC 0629 Melatonin 0 .K-MED ONE 10/31 0035 DC PO Melatonin 5 MG AT BEDTIME 10/30 2345 AC 10/31 PO 0035 Metoprolol Tartrate 0 .STK-MED ONE 10/309 DC PO Metoprolol Tartrate 25 MG BID 10/30 2199 AC 10/30 PO 2330 Metronidazole 500 MG ONCE ONE 10/30 2199 DC 10/30 PO 10/30 Metronidazole 0 .STK-MED ONE 10/30 2111 DC PO Neomycin Sulfate 1,000 MG ONCE ONE 10/30 2199 DC 10/30 PO 10/30 Omeprazole 20 MG DAILY AC 10/31 0700 AC 10/31 PO 0629 Omeprazole 0 .K-MED ONE 10/31 611 DC PO Sodium Hypochlorite 1 HILARIA BID 10/30 2199 AC 10/31 TOP 0035 Laboratory Tests 10/30 1916 Chemistry Sodium (137 - 145 mmol/L) 136 L Potassium (3.5 - 5.1 mmol/L) 4.3 Chloride (98 - 107 mmol/L) 96 L Carbon Dioxide (22 - 30 mmol/L) 27 Anion Gap (5 - 16) 13 BUN (9 - 20 mg/dL) 20 Creatinine (0.7 - 1.2 mg/dL) 0.7 Estimated GFR (>60 ml/min) > 60 BUN/Creatinine Ratio (7 - 25 %) 28.6 H Glucose (65 - 99 mg/dL) 113 H Calcium (8.4 - 10.2 mg/dL) 9.2 Total Bilirubin (0.2 - 1.3 mg/dL) 0.3 AST (17 - 59 U/L) 21 ALT (21 - 72 U/L) 29 Alkaline Phosphatase (< 127 U/L) 99 Troponin I (<0.11 ng/ml) < 0.01 Total Protein (6.3 - 8.2 g/dL) 7.2 Albumin (3.5 - 5.0 g/dL) 3.0 L Globulin (1.9 - 4.2 gm/dL) 4.2 Albumin/Globulin Ratio (1.1 - 2.2 %) 0.7 L Coagulation PT (9.4 - 12.5 SEC) 12.4 INR (0.90 - 1.17) 1.18 H APTT (25 - 37 SEC) 33 Hematology CBC w Diff MAN DIFF ORDERED WBC (4.8 - 10.8 /CUMM) 22.6 H RBC (4.70 - 6.10 /CUMM) 3.28 L Hgb (14.0 - 18.0 G/DL) 9.1 L Hct (42 - 52 %) 28.3 L MCV (80.0 - 94.0 FL) 86.4 MCH (27.0 - 31.0 PG) 27.8 RDW (11.5 - 14.5 %) 17.8 H Plt Count (130 - 400 /CUMM) 608 H MPV (7.4 - 10.4 FL) 7.0 L Gran % (42.2 - 75.2 %) 82.7 H Lymphocytes % (20.5 - 51.1 %) 7.0 L Monocytes % (1.7 - 9.3 %) 6.6 Eosinophils % (0 - 5 %) 3.7 Basophils % (0.0 - 2.0 %) 0 L Absolute Granulocytes (1.4 - 6.5 /CUMM) 18.7 H Absolute Lymphocytes (1.2 - 3.4 /CUMM) 1.6 Absolute Monocytes (0.10 - 0.60 /CUMM) 1.5 H Absolute Eosinophils (0.0 - 0.7 /CUMM) 0.8 Absolute Basophils (0.0 - 0.2 /CUMM) 0 Platelet Estimate (ADEQUATE) INCREASED Hypochromic-Microcytic 1+ Poikilocytosis RARE Stomatocytes RARE PUBS MCHC (33.0 - 37.0 G/DL) 32.2 L Urines Urinalysis LIGHT H Urine Color (YEL,AMB,STR) YEL Urine Clarity (CLEAR) HAZY H Urine pH (5.0 - 8.0) 6.0 Ur Specific Cocoa (1.001 - 1.035) 1.025 Urine Protein (NEG,<30 MG/DL) 30 H Urine Ketones (NEG) NEG Urine Nitrite (NEG) NEG Urine Bilirubin (NEG) NEG Urine Urobilinogen (0.1 - 1.0 EU/dl) 0.2 Ur Leukocyte Esterase (NEG) MOD H Ur Microscopic SEDIMENT EXAMINED Urine RBC (0 - 5 /HPF) 50-75 H Urine WBC (0 - 2 /HPF) 50-75 H Ur Epithelial Cells (NONE,FEW) RARE Urine Mucus (FEW,NONE) MOD H Urine Hemoglobin (NEG) LARGE H Urine Glucose (N MG/DL) NEG Vital Signs Date Time Temp Pulse Resp B/P Pulse O2 O2 Flow FiO2 Ox Delivery Rate 10/31 0605 98.3 84 20 155/70 95 Nasal 2.0L Cannula 10/30 2330 100.0 79 16 138/65 10/30 2317 100.0 79 16 138/65 92 10/30 2250 100.4 79 16 138/65 92 Room Air 10/30 2101 99.0 85 18 145/63 94 Room Air 10/30 1757 97.9 86 20 152/70 92 Room Air Intake & Output 10/31 0800 10/31 0000 10/30 1600 Intake Total Output Total 1400 Balance -1400 Number 3 Bowel Movements Output, Urine 1400 Patient 177 lb Weight On evaluation patient is awake alert cooperative fairly stable Conjunctiva is pale sclerae anicteric neck is supple JVD is not raised S1-S2 is normal lungs shows air entry equal bilaterally with expiration is prolonged slight wheezing present Abdomen is soft nontender bowel sounds are present Patient has paraplegia Last to give results in the sacrum approximately 9 x 10 cm. Assessment Patient is scheduled to have diverticulitis to sd as well as suprapubic cystostomy to treat recurrent large decubitus ulcer causing osteomyelitis. Patient is fairly stable for surgery further recommendations of surgery for preop. To postop EKG and cardiac enzymes 3. Continue current management with IV antibiotics during. Postop
--- NOTE | 2016-10-31 09:58 | NUR ---
BED ASSIGNMENT 231, BED BEING CLEANED
--- NOTE | 2016-10-31 11:31 | NUR ---
REPORT GIVEN TO 2NA NURSE LAURA
--- NOTE | 2016-10-31 12:11 | PN- General Surgery ---
Surgical Brief Attending Note Brief Attending Note: Patient seen and examined in the OR holding area Patient subjectively short of breath and visibly with increased work of breathing Patient was started on oxygen therapy at some point overnight to keep sats in the low 90s Patient was scheduled to have surgically placed suprapubic cystostomy catheter and laparoscopic diverting colostomy today Anesthesia does not feel the patient is safe for surgery and feels patient was being worked up for his new shortness of breath prior to being exposed to general anesthesia. Will discuss with his easement worker
[2016-10-31 12:15] VITALS: BP 136/68
--- NOTE | 2016-10-31 12:15 | NUR ---
PT ADMITTED FROM ER: PT WENT TO OR DIRECTLY FROM ER FOR PLANNED SURGERY FOR COLOSTOMY AND SUPRAPUBIC TUBE, OR CASE CANCELLED DUE TO PT'S RESPIRATORY STATUS PER OR, PT AXO, DENIES PAIN, O2 IN PLACE AT 2 LITERS VIA N/C, LUNGS DEMINISHED, NO RESP DISTRESS NOTED, O2 SAT 96%, [facility] IN PLACE, PT HAS STAGE 4 ULCER TO COCCYX, DSG IN PLACE, DSG CHANGED IN ER THIS AM, DSG CDI, PT ALSO HAS [facility] PICC LINE IN PLACE, PT HAS HX: PARAPLEGIA, CLINITRON BED ORDERED
--- NOTE | 2016-10-31 14:47 | NUR ---
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
--- NOTE | 2016-10-31 14:55 | NUR ---
WOUND CARE: REQUESTED TO EVALUATE PT FOR SKIN ALTERATIONS PRESENT ON ADMISSION - PT PENDING SURGICAL CLEARANCE FOR DIVERTING OSTOMY - PT PRESENTS WITH A STAGE 4 PRESSURE INJURY ULCER 8X10X3 CM 50% EXPOED SACRAL BONE- 25% MIXED YELLOW AND BLACK NECROTIC FILL 25% NON VIABLE FILL - UNDERMINING FOLLOWS: 12:00 3 CM, 2:00 1 CM, 4:00 1.3 CM, 9:00 3.5 CM, 11:00 2.5 CM - PT ALSO NOTED WITH A STAGE 4 PRESSURE INJURY (1.3 X 0.9 CM AND 0.5 X 0.7 CM) PRXIMAL TO PERIRECTAL AREA WHICH UNDERMINE TOGETHER - LARGE AMOUNTS OF SEROPURULENT DRNG MIXED WITH STOOL CONTAMINATION - PERIWOUNDS MACERATED AND HYPERPIGMENTED - AWAITING DELIVERY OF CLINITRON MATTRESS RECOMMENDATION: CONT ON CLINTRON MATTRESS - IRRIGATE SACRAL AND PERIRECTAL WOUNDS WITH NS FB LOOSELY PACK WITH 1/5 STRNGTH MOIST DAKINS GAUZE FB ABD PAD TWICE DAILY AND PRN - APPLY ABD PADS TO ALL WOUNDS - CONSIDER CONSULT WITH ID AND PLASTICS PLEASE
--- NOTE | 2016-10-31 15:09 | Cons- Pulmonary ---
General Information and HPI Consulting Request Date of Consult: 10/31/16 Requested By: Dr. Irizarry/Dr. Liu Reason for Consult: Dyspnea Source of Information: patient Exam Limitations: no limitations History of Present Illness: 71-year-old man. Consultation requested for shortness of breath and cough. 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 Patient is admitted for a suprapubic cystostomy catheter and laparoscopic diverting colostomy in the setting of significant large decubitus ulcer causing osteomyelitis of the sacrum. White blood cell count was elevated to 22.6 history of diastolic function. History of smoking quit 2012. 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 Has never had pulmonary function testing for the patient. Has not been on inhalers. This morning he was short of breath and his suprapubic cystostomy was canceled. A chest x-ray this admission was normal. When inquired about his cough it has been relatively nonproductive due to poor effort of mucociliary clearance. No fevers no chills. Lives in an extended care facility [facility]. Allergies/Medications Allergies: Coded Allergies: NO KNOWN ALLERGIES (10/18/16) Home Med List: Acetaminophen (Acephen) 650 MG SUPP.RECT 1 SUPP [place] Q4H PRN PAIN/TEMP>/100 ( Reported) Acetaminophen 325 MG CAPSULE 2 CAP PO Q4H PRN PAIN/TEMP>/100 (Reported) Alprazolam 0.5 MG TABLET 1 TAB PO Q8H PRN ANXIETY (Reported) Ampicillin Sodium/Sulbactam Na (Unasyn 3 Gm Vial) 3 GRAM VIAL 3 GM IV Q6H ANTIBIOTIC (Reported) Aspirin (Children's Aspirin) 81 MG TAB.CHEW 1 TAB PO DAILY HEART HEALTH ( Reported) Baclofen (Lioresal) 10 MG TABLET 1 TAB PO QAM MUSCLE RELAXER (Reported) Bisacodyl 10 MG SUPP.RECT 1 SUP RC PRN CONSTIPATION (Reported) Calcium Carbonate (Calcium) 500 MG CALCIUM (1,250 MG) TAB.CHEW 2 TAB PO Q8H PRN GI DISCOMFORT (Reported) Clonazepam (Klonopin) 0.5 MG TABLET 1 TAB PO QPM SLEEP (Reported) Cyanocobalamin (Vitamin B-12) (B-12) 1,000 MCG TABLET 1 TAB PO DAILY SUPPLEMENT (Reported) Dakins Solution (Dakin's) 0.25 % SOLUTION 1 HILARIA TOP BID ULCER Apply to sacral ulcer twice a day. Dextran 70/Hypromellose (Artificial Tears) 1 EACH DROPERETTE 1 DROP OP TID PRN BOTH EYES (Reported) Fluticasone Propionate (Flonase Allergy Relief) 50 MCG/ACTUATION SPRAY.SUSP 2 SPRAY NASB DAILY PRN NASAL CONGESTION (Reported) Furosemide (Lasix) 20 MG TABLET 1 TAB PO EOD DIURETIC (Reported) Guaifenesin (Q-Tussin) 100 MG/5 ML LIQUID 10 ML PO Q4H PRN COUGH (Reported) Insulin Aspart, Recombinant (Novolog) 100 U/ML DARRON 0 UNITS SC AD GLUCOSE CONTROL (Reported) BLOOD SUGAR # OF UNITS < 80 NONE 80-150 NONE 151-200 4 UNITS 201-250 6 UNITS 251-300 8 UNITS 301-350 10 UNITS 351-400 12 UNITS >400 14 UNITS and call Magnesium Hydroxide (Milk Of Magnesia) 400 MG/5 ML ORAL.SUSP 30 ML PO DAILY PRN CONSTIPATION (Reported) Melatonin 5 MG TAB.SUBL 1 TAB PO QHS SLEEP (Reported) METFORMIN HCL (Metformin) 1,000 MG TABLET 1 TAB PO BID DIABETES (Reported) Methylcellulose (Fiber) (Unknown Strength) TABLET (Unknown Dose) PO DAILY SUPPLEMENT (Reported) Metoprolol Tartrate (Lopressor) 25 MG TABLET 1 TAB PO BID BP/HEART (Reported) MOMETASONE/FORMOTEROL (Dulera 100 Mcg/5 Mcg Inhaler) 100 MCG-5 MCG/ACTUATION HFA.AER.AD 2 PUF INH BID UNKNOWN (Reported) Multivitamin (Multiple Vitamins) 1 EACH TABLET 1 TAB PO QAM SUPPLEMENT ( Reported) Na Phos,M-B/Na Phos,Di-Ba (Fleet Enema) 19 GRAM-7 GRAM/118 ML ENEMA 1 E RC DAILY PRN CONSTIPATION (Reported) [place]-3 Fatty Acids ([place]-3) 1,000 MG CAPSULE 1 CAP PO DAILY SUPPLEMENT ( Reported) Omeprazole 20 MG TABLET.DR 1 TAB PO DAILY GI (Reported) Oxybutynin Chloride 5 MG TABLET 2.5 MG PO BID Urinary incontinence OXYCODONE HCL/ACETAMINOPHEN (Percocet 7.5-325 MG Tablet) 325 MG/7.5 MG TAB 1 TAB PO Q6H PAIN (Reported) Potassium Chloride 20 MEQ TAB.ER.PRT 1 TAB PO DAILY SUPPLEMENT (Reported) Protein Supplement (Promod) 946 ML LIQUID 30 ML PO DAILY SUPPLEMENT (Reported ) Rosuvastatin Calcium (Crestor) 20 MG TABLET 1 TAB PO DAILY CHOLESTEROL ( Reported) Saccharomyces Boulardii (Florastor) (Unknown Strength) CAPSULE 1 CAP PO DAILY SUPPLEMENT (Reported) Current Medications: Current Medications Sig/Mey Start time Last Medication Dose Route Stop Time Status Admin Alprazolam 0.5 MG TID PRN 10/30 2130 AC PO 11/06 2128 Ampicillin Sodium/ 0 .STK-MED ONE 10/31 1104 DC Sulbactam Sodium .ROUTE Ampicillin Sodium/ 3,000 MG Q6H 10/31 0530 AC 10/31 Sulbactam Sodium IV 1103 Sodium Chloride 100 ML Ampicillin Sodium/ 0 .STK-MED ONE 10/31 0341 DC Sulbactam Sodium .ROUTE Ampicillin Sodium/ 0 .STK-MED ONE 10/31 0331 DC Sulbactam Sodium .ROUTE Ampicillin Sodium/ 0 .STK-MED ONE 10/30 230 DC Sulbactam Sodium .ROUTE Ampicillin Sodium/ 3,000 MG Q6H 10/30 2114 DC 10/30 Sulbactam Sodium IV 2330 Artificial Tears 1 GTT TID PRN 10/30 2129 AC OU Ceftriaxone Sodium 0 .STK-MED ONE 10/30 2111 DC .ROUTE Ceftriaxone Sodium 1,000 MG ONCE ONE 10/30 2044 DC 10/30 IV 10/30 Clonazepam 0 .STK-MED ONE 10/30 2300 DC PO Clonazepam 0.5 MG QPM 10/30 2200 AC 10/30 PO 11/06 2158 2330 Dextrose/Sodium 1,000 ML .Q10H 10/30 2114 DC 10/31 Chloride IV 0933 Fluticasone 2 SPRAY DAILY 10/31 1000 AC 10/31 Propionate MARIA ANTONIA 0933 Furosemide 20 MG Q48 11/01 1000 AC PO Guaifenesin 0 .STK-MED ONE 10/31 0251 DC PO Guaifenesin 10 ML Q4H PRN 10/30 2130 AC 10/31 PO 0254 Insulin Human Regular 0 Q6 10/31 0000 AC 10/31 SC 1250 Melatonin 0 .STK-MED ONE 10/31 0035 DC PO Melatonin 5 MG AT BEDTIME 10/30 2345 AC 10/31 PO 0035 Metoprolol Tartrate 0 .STK-MED ONE 10/30 2258 DC PO Metoprolol Tartrate 25 MG BID 10/30 2199 AC 10/31 PO 0934 Metronidazole 500 MG ONCE ONE 10/30 2199 DC 10/30 PO 10/30 Metronidazole 0 .STK-MED ONE 10/30 2111 DC PO Neomycin Sulfate 1,000 MG ONCE ONE 10/30 2199 DC 10/30 PO 10/30 Omeprazole 20 MG DAILY AC 10/31 0700 AC 10/31 PO 0629 Omeprazole 0 .STK-MED ONE 10/31 0512 DC PO Sodium Hypochlorite 1 HILARIA BID 10/30 2199 AC 10/31 TOP 0933 Review of Systems Comments 18 point Review of Systems performed. Positive and negative pertinent findings are deliniated in the HPI. Otherwise the ROS is negative. Past History Travel History Traveled to [place] past 21 day No Medical History Neurological: PARAPLEGIA STATUS POST SPINAL SHOCK POSTOP EENT: NONE Cardiovascular: CAD, hypertension, hyperlipidemia, ABDOMINAL ANEURYSM Respiratory: asthma Gastrointestinal: GERD Renal: neurogenic bladder, UTI Musculoskeletal: decubitis ulcer (OSTEOMYELITIS) Psychiatric: anxiety, depression Endocrine: DIABETES TYPE 2 Cancer(s): prostate cancer Surgical History Surgical History: AAA repair x2 once 2002, and 2013 Family History Relations & Conditions If Any: MOTHER FH: coronary artery disease FH: diabetes mellitus BROTHER FH: diabetes mellitus SISTER Psychosocial History Services at Home: Nursing Primary Language: [place] Smoking Status: Never Smoked ETOH Use: denies use Illicit Drug Use: denies illicit drug use Functional Ability ADLs Independent: eating. Needs Assist: dressing, toileting, bathing. Ambulation: non-ambulatory IADLs Needs Assist: shopping, housework, finances, food prep, telephone, transportation, medication admin. Exam & Diagnostic Data Last 24 Hrs of Vital Signs/I&O Vital Signs Date Time Temp Pulse Resp B/P Pulse O2 O2 Flow FiO2 Ox Delivery Rate 10/31 1517 98.1 68 20 136/62 96 10/31 1215 98.1 68 18 136/68 96 Nasal 2.0L Cannula 10/31 0934 98.3 84 20 115/70 10/31 0722 98.3 84 115/70 95 10/31 0605 98.3 84 20 155/70 95 Nasal 2.0L Cannula 10/30 2330 100.0 79 16 138/65 10/30 2317 100.0 79 16 138/65 92 10/30 2250 100.4 79 16 138/65 92 Room Air 10/30 2101 99.0 85 18 145/63 94 Room Air 10/30 1757 97.9 86 20 152/70 92 Room Air Intake & Output 10/31 1600 10/31 0800 10/31 0000 Intake Total 480 100 Output Total 650 1400 Balance -170 -1300 Intake, IV 100 Intake, Oral 480 Number 3 Bowel Movements Output, Urine 650 1400 Patient 177 lb Weight Physical Exam Other Physical Findings: General - Alert, awake and oriented HEENT - normocephalic, atraumatic Cardiovascular - S1, S2 Lungs - bilateral wheezing Abdomen - soft, bowel sounds positive, no tenderness Extremities - some edema Neuro patient is paraplegic Skin wound was not evaluated during this examination Last 48 Hrs of Labs/Perfecto: Laboratory Tests 10/30/161916: Anion Gap 13, Estimated GFR > 60, BUN/Creatinine Ratio 28.6 H, Glucose 113 H, Calcium 9.2, Total Bilirubin 0.3, AST 21, ALT 29, Alkaline Phosphatase 99, Troponin I < 0.01, Total Protein 7.2, Albumin 3.0 L, Globulin 4.2, Albumin/ Globulin Ratio 0.7 L, PT 12.4, INR 1.18 H, APTT 33, CBC w Diff MAN DIFF ORDERED, RBC 3.28 L, MCV 86.4, MCH 27.8, RDW 17.8 H, MPV 7.0 L, Gran % 82.7 H, Lymphocytes % 7.0 L, Monocytes % 6.6, Eosinophils % 3.7, Basophils % 0 L, Absolute Granulocytes 18.7 H, Absolute Lymphocytes 1.6, Absolute Monocytes 1.5 H, Absolute Eosinophils 0.8, Absolute Basophils 0, Platelet Estimate INCREASED, Hypochromic-Microcytic 1+, Poikilocytosis RARE, Stomatocytes RARE, PUBS MCHC 32.2 L, Urinalysis LIGHT H, Urine Color YEL, Urine Clarity HAZY H, Urine pH 6.0, Ur Specific [place] 1.025, Urine Protein 30 H, Urine Ketones NEG, Urine Nitrite NEG, Urine Bilirubin NEG, Urine Urobilinogen 0.2, Ur Leukocyte Esterase MOD H, Ur Microscopic SEDIMENT EXAMINED, Urine RBC 50-75 H, Urine WBC 50-75 H , Ur Epithelial Cells RARE, Urine Mucus MOD H, Urine Hemoglobin LARGE H, Urine Glucose NEG Microbiology 10/31 0816 STOOL: Clostridium difficile Toxin A & B - COMP Assessment/Plan Impression/Plan: Impression 71-year-old man. Consultation requested for shortness of breath and cough. 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 Plan - TRC/Nebs - discussed with respiratory therapy to begin active mucociliary clearance with flutter device, incentive spirometry, possibly vest therapy and chest PT - would begin nebulizer beta agonist therapy in the meantime - his presentation is most consistent with poor mucociliary clearance and other than a chronic cough he is virtually asymptomatic - his oxygen saturation is adequate at this time - would repeat CXR today and labs, include BNP - DVT prophylaxis at all times Consult Acknowledgment - Thank you for your consult request.
[2016-10-31 15:17] VITALS: BP 136/62
[2016-10-31 16:41] LABS: ABSOLUTE BASOPHIL COUNT 0 /CUMM (0.0-0.2); ABSOLUTE EOSINOPHIL COUNT 0.4 /CUMM (0.0-0.7); ABSOLUTE GRANULOCYTE CT 14.2 /CUMM (1.4-6.5); ABSOLUTE LYMPH COUNT 1.3 /CUMM (1.2-3.4); ABSOLUTE MONOCYTE COUNT 1.5 /CUMM (0.10-0.60); BASOPHIL % 0.1 % (0.0-2.0); EOSINOPHIL % 2.2 % (0-5); HEMATOCRIT 27.7 % (42-52); MEAN CORPUSCULAR HGB 27.5 PG (27.0-31.0); MEAN CORPUSCULAR HGB CONC 31.9 G/DL (33.0-37.0); MEAN CORPUSCULAR VOLUME 86.2 FL (80.0-94.0); MEAN PLATELET VOLUME 6.9 FL (7.4-10.4); PLATELET COUNT 564 /CUMM (130-400); RBC DISTRIBUTION WIDTH 17.8 % (11.5-14.5); RED BLOOD CELL CT 3.22 /CUMM (4.70-6.10)
[2016-10-31 16:43] LABS: GRANULOCYTE % 81.9 % (42.2-75.2); WHITE BLOOD CELL COUNT 17.3 /CUMM (4.8-10.8)
--- NOTE | 2016-10-31 17:21 | RADIOLOGY REPORT ---
EXAMINATION: XR PORTABLE CHEST CLINICAL INFORMATION: Worsening shortness of breath. Presumptive diagnosis of pneumonia/CHF. COMPARISON: Chest x-ray dated 10/30/2016, 10/24/2016 and older exams dating back to 07/22/2014. TECHNIQUE: AP semierect portable view of the chest. FINDINGS: The patient is status post median sternotomy. Cardiomediastinal silhouette is enlarged. A right subclavian PICC line is in place with tip poorly visualized but at least seen down to the proximal SVC level. Chronic elevation of the left hemidiaphragm is again seen with associated opacity in the left lung base, likely related to chronic atelectasis. There are also some patchy left midlung and medial right lower lung reticular opacities, likely accentuated due to technique but not significantly changed compared to older exams dating back to 2013, likely representing chronic areas of atelectasis or scarring. No definite new superimposed focal consolidation is seen. No pulmonary edema or pneumothorax is present. Bony structures are grossly unremarkable. IMPRESSION: Unchanged appearance of the chest with chronic elevation of left hemidiaphragm and patchy areas of scattered atelectasis or scarring in the left mid and lower lung and in the medial right lower lung. No evidence of pulmonary edema or focal pneumonia.
[2016-10-31 21:49] VITALS: BP 136/60
[2016-11-01 06:05] VITALS: BP 130/50
--- NOTE | 2016-11-01 07:43 | PN- Att Addend ---
Attending Addendum Attending Brief Note Attending note. Patient is resting comfortably in bed on oxygen. Denies any shortness of breath or any cough. Intake & Output 11/01 0800 11/01 0000 10/31 1600 Intake Total 240 480 Output Total 250 1250 650 Balance -250 -1010 -170 Intake, Oral 240 480 Output, Urine 250 1250 650 Vital Signs Date Time Temp Pulse Resp B/P Pulse O2 O2 Flow FiO2 Ox Delivery Rate 11/01 0605 97.7 68 20 130/50 98 Nasal 3.0L Cannula 10/31 2148 97.8 64 20 136/60 96 Nasal 2.0L Cannula 10/31 2143 136/60 10/31 1702 Nasal 3.0L Cannula 10/31 1600 Nasal 2.0L Cannula 10/31 1517 98.1 68 20 136/62 96 10/31 1215 98.1 68 18 136/68 96 Nasal 2.0L Cannula 10/31 0934 98.3 84 20 115/70 Intake & Output 11/01 0800 11/01 0000 10/31 1600 Intake Total 240 480 Output Total 250 1250 650 Balance -250 -1010 -170 Intake, Oral 240 480 Output, Urine 250 1250 650 On examination Awake alert S1-S2 is normal Lungs shows scattered wheezing Abdomen is soft nontender bowel sounds are present Laboratory Tests 10/31 1413 Chemistry Sodium (137 - 145 mmol/L) 138 Potassium (3.5 - 5.1 mmol/L) 4.0 Chloride (98 - 107 mmol/L) 96 L Carbon Dioxide (22 - 30 mmol/L) 27 Anion Gap (5 - 16) 14 BUN (9 - 20 mg/dL) 14 Creatinine (0.7 - 1.2 mg/dL) 0.5 L Estimated GFR (>60 ml/min) > 60 BUN/Creatinine Ratio (7 - 25 %) 28.0 H Hematology CBC w Diff NO MAN DIFF REQ WBC (4.8 - 10.8 /CUMM) 17.3 H RBC (4.70 - 6.10 /CUMM) 3.22 L Hgb (14.0 - 18.0 G/DL) 8.9 L Hct (42 - 52 %) 27.7 L MCV (80.0 - 94.0 FL) 86.2 MCH (27.0 - 31.0 PG) 27.5 RDW (11.5 - 14.5 %) 17.8 H Plt Count (130 - 400 /CUMM) 564 H MPV (7.4 - 10.4 FL) 6.9 L Gran % (42.2 - 75.2 %) 81.9 H Lymphocytes % (20.5 - 51.1 %) 7.3 L Monocytes % (1.7 - 9.3 %) 8.5 Eosinophils % (0 - 5 %) 2.2 Basophils % (0.0 - 2.0 %) 0.1 Absolute Granulocytes (1.4 - 6.5 /CUMM) 14.2 H Absolute Lymphocytes (1.2 - 3.4 /CUMM) 1.3 Absolute Monocytes (0.10 - 0.60 /CUMM) 1.5 H Absolute Eosinophils (0.0 - 0.7 /CUMM) 0.4 Absolute Basophils (0.0 - 0.2 /CUMM) 0 PUBS MCHC (33.0 - 37.0 G/DL) 31.9 L Assessment Sepsis secondary to large decubitus ulcer osteomyelitis of the sacral bone on IV Unasyn. History of COPD on total respiratory care with nebulizer treatment We will get clearance from pulmonary before surgery.
--- NOTE | 2016-11-01 08:40 | PN- General Surgery ---
Surgical Brief Attending Note Brief Attending Note: Patient states " breathing is better" Otherwise physical exam unchanged Await pulmonary clearance Once we have clearance we will proceed with planned surgery: Surgical suprapubic cystostomy tube with diverting colostomy
--- NOTE | 2016-11-01 09:28 | PN- Housestaff ---
Subjective Follow-up For: shortness of breath Subjective: See and examined patient, does not offer any complaints denies shortness of breath, chest pain, fever, chills Review of Systems Constitutional: Denies: chills, diaphoresis, fever, malaise, weakness, unexplained weight loss. Cardiovascular: Denies: chest pain, edema, orthopena, palpitations, peripheral edema, syncope. Respiratory: Denies: cough, hemoptysis, orthopnea, short of breath, sputum production, stridor, wheezing. Objective Last 24 Hrs of Vital Signs/I&O Vital Signs Date Time Temp Pulse Resp B/P Pulse O2 O2 Flow FiO2 Ox Delivery Rate 11/01 1356 98.4 73 20 130/64 96 Room Air 11/01 0935 68 150/80 11/01 0804 98 Nasal 3.0L Cannula 11/01 0800 98 Nasal 2.0L Cannula 11/01 0605 97.7 68 20 130/50 98 Nasal 3.0L Cannula 11/01 0000 96 Nasal 3.0L Cannula 10/31 214 97.8 64 20 136/60 96 Nasal 2.0L Cannula 10/31 2143 136/60 10/31 1702 Nasal 3.0L Cannula 10/31 1600 Nasal 2.0L Cannula 10/31 1517 98.1 68 20 136/62 96 Intake & Output 11/01 1600 11/01 0800 11/01 0000 Intake Total 700 360 240 Output Total 047 814 4928 Balance 250 110 -1010 Intake, IV 100 260 Intake, Oral 600 100 240 Number 0 Bowel Movements Output, Urine 629 673 2831 Physical Exam General Appearance: Alert, Oriented X3, Cooperative, No Acute Distress Cardiovascular: Regular Rate, Normal S1, Normal S2 Lungs: b/l wheeze Neurological: paraplegic Current Medications: Current Medications Sig/Mey Start time Last Medication Dose Route Stop Time Status Admin Albuterol Sulfate 3 ML TID 10/31 2199 AC 11/01 INH 1308 Alprazolam 0.5 MG TID PRN 10/30 2129 AC 10/31 PO 11/06 2128 214 Ampicillin Sodium/ 3,000 MG Q6H 10/31 0530 AC 11/01 Sulbactam Sodium IV 1210 Sodium Chloride 100 ML Artificial Tears 1 GTT TID PRN 10/30 2129 AC OU Clonazepam 0.5 MG QPM 10/30 2199 AC 10/31 PO 11/06 2159 2146 Fluticasone 2 SPRAY DAILY 10/31 1000 AC 11/01 Propionate MARIA ANTONIA 0931 Furosemide 20 MG Q48 11/01 1000 AC 11/01 PO 0932 Guaifenesin 10 ML Q4H PRN 10/30 2130 AC 10/31 PO 0254 Insulin Aspart 0 TIDAC 10/31 1700 AC SC Insulin Human Regular 0 Q6 10/31 0000 DC 10/31 SC 1250 Melatonin 5 MG AT BEDTIME 10/30 2345 AC 10/31 PO 0035 Metoprolol Tartrate 25 MG BID 10/30 2200 AC 11/01 PO 0935 Omeprazole 20 MG DAILY AC 10/31 0700 AC 11/01 PO 0546 Oxycodone/ 1 TAB Q6P PRN 10/31 1545 AC 11/01 Acetaminophen PO 0931 Sodium Hypochlorite 1 HILARIA BID 10/30 2199 AC 11/01 TOP 1300 Assessment/Plan Assessment: 71 year-old gentleman from [facility] with history of aortic aneurysm 4 years ago status post surgery complicated by spinal shock and paraplegia, indwelling [place] catheter, nonhealing sacral decubitus previous history of osteomyelitis with recent episode in September 2016 treated with Unasyn, current admission under surgical service for diverting colostomy as well as a suprapubic cystostomy had episode of dyspnea and surgery was canceled and he was transferred to the medical service. Today patient is at his baseline is not complaining of dyspnea. Large decubitus ulcer osteomyelitis of the sacral bone Continue IV Unasyn. Management as per surgery History of COPD continue new TRC/nebs Pulmn on board appreciate recommendations, Mildly elevated proBNP age adjusted her BNP would be about 700, ordered echocardiogram Continue with Lasix Hypertension Continue Lopressor Diabetes Monitor fingersticks On insulin sliding scale Diabetic diet DVT prophylaxis ALPS Problem List: 1. Paraplegia 2. Osteomyelitis 3. S/P CABG (coronary artery bypass graft) 4. Diabetes 5. Hypertension Pain Ratin Pain Location: na Pain Goal: Pain 4 or less Pain Plan: Current regimen Tomorrow's Labs & Rationales: none required
--- NOTE | 2016-11-01 11:03 | PN- Pulmonary ---
Subjective HPI/Critical Care Issues: Patient seen and examined. No chest pain, at respiratory baseline. No nausea, vomiting, diarrhea or constipation. Afebrile and hemodynamically stable. Improved with nebulized therapy. Objective Current Medications: Current Medications Sig/Mey Start time Last Medication Dose Route Stop Time Status Admin Acetaminophen 1,000 MG .STK-MED ONE 10/31 1108 DC IV 10/31 1109 Albuterol Sulfate 3 ML TID 10/31 2200 AC 11/01 INH 0759 Alprazolam 0.5 MG TID PRN 10/30 2130 AC 10/31 PO 11/06 212 2143 Ampicillin Sodium/ 0 .STK-MED ONE 10/31 1104 DC Sulbactam Sodium .ROUTE Ampicillin Sodium/ 3,000 MG Q6H 10/31 0530 AC 11/01 Sulbactam Sodium IV 0546 Sodium Chloride 100 ML Artificial Tears 1 GTT TID PRN 10/30 2130 AC OU Clonazepam 0.5 MG QPM 10/30 2200 AC 10/31 PO 11/06 215 2146 Dexamethasone 4 MG .STK-MED ONE 10/31 110 DC IM 10/31 1109 Dextrose/Sodium 1,000 ML .Q10H 10/30 2115 DC 10/31 Chloride IV 0933 Fentanyl Citrate 250 MCG .STK-MED ONE 10/31 110 DC IM 10/31 1108 Fluticasone 2 SPRAY DAILY 10/31 1000 AC 11/01 Propionate MARIA ANTONIA 0931 Furosemide 20 MG Q48 11/01 1000 AC 11/01 PO 0932 Guaifenesin 10 ML Q4H PRN 10/30 2130 AC 10/31 PO 0254 Hydromorphone HCl 2 MG .STK-MED ONE 10/31 1106 DC IM 10/31 1107 Insulin Aspart 0 TIDAC 10/31 1700 AC SC Insulin Human Regular 0 Q6 10/31 0000 DC 10/31 SC 1250 Melatonin 5 MG AT BEDTIME 10/30 2345 AC 10/31 PO 0035 Metoprolol Tartrate 25 MG BID 10/30 2200 AC 11/01 PO 0935 Omeprazole 20 MG DAILY AC 10/31 0700 AC 11/01 PO 0546 Ondansetron HCl 4 MG .STK-MED ONE 10/31 110 DC IM 10/31 1109 Oxycodone/ 1 TAB Q6P PRN 10/31 1545 AC 11/01 Acetaminophen PO 0931 Sodium Hypochlorite 1 HILARIA BID 10/30 2200 AC 10/31 TOP 0933 Vital Signs & I&O Last 24 Hrs of Vitals and I&O: Vital Signs Date Time Temp Pulse Resp B/P Pulse O2 O2 Flow FiO2 Ox Delivery Rate 11/01 0935 68 150/80 11/01 0804 98 Nasal 3.0L Cannula 11/01 0605 97.7 68 20 130/50 98 Nasal 3.0L Cannula 10/31 2149 97.8 64 20 136/60 96 Nasal 2.0L Cannula 10/31 2143 136/60 10/31 1702 Nasal 3.0L Cannula 10/31 1600 Nasal 2.0L Cannula 10/31 1517 98.1 68 20 136/62 96 10/31 1215 98.1 68 18 136/68 96 Nasal 2.0L Cannula Intake & Output 11/01 1600 11/01 0800 11/01 0000 Intake Total 240 Output Total 250 1250 Balance -250 -1010 Intake, Oral 240 Output, Urine 250 1250 Exam Other Physical Findings: General - Alert, awake and oriented HEENT - normocephalic, atraumatic Cardiovascular - S1, S2 Lungs - bilateral wheezing Abdomen - soft, bowel sounds positive, no tenderness Extremities - some edema Neuro patient is paraplegic Skin wound was not evaluated during this examination Results Last 24 Hrs of Lab Results: Laboratory Tests 10/31/16 1413: Anion Gap 14, Estimated GFR > 60, BUN/Creatinine Ratio 28.0 H, CBC w Diff NO MAN DIFF REQ, RBC 3.22 L, MCV 86.2, MCH 27.5, RDW 17.8 H, MPV 6.9 L, Gran % 81.9 H, Lymphocytes % 7.3 L, Monocytes % 8.5, Eosinophils % 2.2, Basophils % 0.1, Absolute Granulocytes 14.2 H, Absolute Lymphocytes 1.3, Absolute Monocytes 1.5 H, Absolute Eosinophils 0.4, Absolute Basophils 0, PUBS MCHC 31.9 L Impression/Plan Impression/Plan Impression/Plan: Impression 71-year-old man. Consultation requested for shortness of breath and cough. 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 Plan - TRC/Nebs - RT therapy to continue active mucociliary clearance with flutter device, incentive spirometry, possibly vest therapy and chest PT - continue nebulizer beta agonist therapy in the meantime - his presentation is most consistent with poor mucociliary clearance and other than a chronic cough he is virtually asymptomatic - his oxygen saturation is adequate at this time - DVT prophylaxis at all times - Would check BNP with respect to surgery, no further pulmonary testing is necessary prior to surgery, if continues to be at baseline, would be acceptable to proceed with surgical plan.
[2016-11-01 13:56] VITALS: BP 130/64
[2016-11-01 22:48] VITALS: BP 100/50
[2016-11-02 00:13] VITALS: BP 118/60
[2016-11-02 06:31] VITALS: BP 132/64
--- NOTE | 2016-11-02 07:27 | PN- Housestaff ---
Subjective Follow-up For: shortness of breath Subjective: See and examined patient, does not offer any complaints denies shortness of breath, chest pain, fever, chills Review of Systems Constitutional: Denies: chills, diaphoresis, fever, malaise, weakness, unexplained weight loss. Cardiovascular: Denies: chest pain, edema, orthopena, palpitations, peripheral edema, syncope. Respiratory: Denies: cough, hemoptysis, orthopnea, short of breath, sputum production, stridor, wheezing. Objective Last 24 Hrs of Vital Signs/I&O Vital Signs Date Time Temp Pulse Resp B/P Pulse O2 O2 Flow FiO2 Ox Delivery Rate 11/02 0849 74 118/60 11/02 0828 97 Nasal 3.0L Cannula 11/02 0631 97.6 60 20 132/64 97 Nasal 2.0L Cannula 11/02 0013 118/60 11/01 2248 98.2 83 20 100/50 94 Room Air 11/017 97 Nasal 3.0L Cannula 11/01 205 72 140/68 11/01 1600 Nasal 3.0L Cannula 11/01 1356 98.4 73 20 130/64 96 Room Air 11/01 0935 68 150/80 Intake & Output 11/02 1600 11/02 0800 11/02 0000 Intake Total 730 Output Total 450 Balance 280 Intake, IV 130 Intake, Oral 600 Output, Urine 450 Physical Exam General Appearance: Cooperative, No Acute Distress, Mild Distress Cardiovascular: Regular Rate, Normal S1, Normal S2 Lungs: Clear to Auscultation, Normal Air Movement Current Medications: Current Medications Sig/Mey Start time Last Medication Dose Route Stop Time Status Admin Albuterol Sulfate 3 ML TID 10/31 2199 AC 11/02 INH 0823 Alprazolam 0.5 MG TID PRN 10/30 2129 AC 10/31 PO 11/06 Ampicillin Sodium/ 3,000 MG Q6H 10/31 0530 AC 11/02 Sulbactam Sodium IV 0524 Sodium Chloride 100 ML Artificial Tears 1 GTT TID PRN 10/30 2129 AC OU Clonazepam 0.5 MG .STK-MED ONE 11/01 2043 DC PO 11/01 2044 Clonazepam 0.5 MG QPM 10/30 2199 AC 11/01 PO 11/06 Fluticasone 2 SPRAY DAILY 10/31 1000 AC 11/02 Propionate MARIA ANTONIA 0849 Furosemide 20 MG Q48 11/01 1000 AC 11/01 PO 0932 Guaifenesin 10 ML Q4H PRN 10/30 2130 AC 10/31 PO 0254 Insulin Aspart 0 TIDAC 10/31 1700 AC SC Melatonin 5 MG AT BEDTIME 10/30 2345 AC 11/01 PO 2050 Metoprolol Tartrate 25 MG BID 10/30 2200 AC 11/02 PO 0849 Omeprazole 20 MG DAILY AC 10/31 0700 AC 11/02 PO 0525 Oxycodone/ 1 TAB Q6P PRN 10/31 1545 AC 11/02 Acetaminophen PO 0843 Sodium Hypochlorite 1 HILARIA BID 10/30 2200 AC 11/01 [facility] 2050 Assessment/Plan Assessment: 71 year-old gentleman from [facility] with history of aortic aneurysm 4 years ago status post surgery complicated by spinal shock and paraplegia, indwelling Boston catheter, nonhealing sacral decubitus previous history of osteomyelitis with recent episode in September 2016 treated with Unasyn, current admission under surgical service for diverting colostomy as well as a suprapubic cystostomy had episode of dyspnea and surgery was canceled and he was transferred to the medical service. Today patient is at his baseline is not complaining of dyspnea. Large decubitus ulcer osteomyelitis of the sacral bone Continue IV Unasyn. Management as per surgery History of COPD continue new TRC/nebs Pulmn on board appreciate recommendations, echocardiogram pending Continue with Lasix Hypertension Continue Lopressor Diabetes Monitor fingersticks On insulin sliding scale Diabetic diet DVT prophylaxis ALPS Problem List: 1. Hypertension 2. Hyperlipidemia 3. CAD (coronary artery disease) 4. Abdominal aortic aneurysm Pain Ratin Pain Location: na Pain Goal: Pain 4 or less Pain Plan: current regimen Tomorrow's Labs & Rationales: none
--- NOTE | 2016-11-02 07:50 | PN- Att Addend ---
Attending Addendum Attending Brief Note Attending note. Patient is fairly stable awaiting surgery as his surgery is scheduled for next week. Currently in IV Unasyn. For osteomyelitis of the sacrum Current Medications Sig/Mey Start time Last Medication Dose Route Stop Time Status Admin Albuterol Sulfate 3 ML TID 10/31 2199 AC 11/01 INH 4 Alprazolam 0.5 MG TID PRN 10/30 2130 AC 10/31 PO 11/06 Ampicillin Sodium/ 3,000 MG Q6H 10/31 0530 AC 11/02 Sulbactam Sodium IV 0524 Sodium Chloride 100 ML Artificial Tears 1 GTT TID PRN 10/30 213 AC OU Clonazepam 0.5 MG .STK-MED ONE 11/01 2044 DC PO 11/01 204 Clonazepam 0.5 MG QPM 10/30 220 AC 11/01 PO 11/06 Fluticasone 2 SPRAY DAILY 10/31 1000 AC 11/01 Propionate MARIA ANTONIA 0931 Furosemide 20 MG Q48 11/01 1000 AC 11/01 PO 0932 Guaifenesin 10 ML Q4H PRN 10/30 2130 AC 10/31 PO 0254 Insulin Aspart 0 TIDAC 10/31 1700 AC SC Melatonin 5 MG AT BEDTIME 10/30 2345 AC 11/01 PO 205 Metoprolol Tartrate 25 MG BID 10/30 2199 AC 11/01 PO 205 Omeprazole 20 MG DAILY AC 10/31 0700 AC 11/02 PO 0525 Oxycodone/ 1 TAB Q6P PRN 10/31 1545 AC 11/01 Acetaminophen PO 2354 Sodium Hypochlorite 1 HILARIA BID 10/30 2199 AC 11/01 TOP 2050 Continue with current management of IV antibiotics patient scheduled for surgery next week.
--- NOTE | 2016-11-02 11:34 | PN- Pulmonary ---
Subjective HPI/Critical Care Issues: Patient seen and examined. No chest pain, at respiratory baseline. No nausea, vomiting, diarrhea or constipation. Afebrile and hemodynamically stable. Improved with nebulized therapy. Seems to be having benefited from Acapella therapy. Objective Current Medications: Current Medications Sig/Mey Start time Last Medication Dose Route Stop Time Status Admin Albuterol Sulfate 3 ML TID 10/31 2200 AC 11/02 INH 0823 Alprazolam 0.5 MG TID PRN 10/30 2130 AC 10/31 PO 11/06 Ampicillin Sodium/ 3,000 MG Q6H 10/31 0530 AC 11/02 Sulbactam Sodium IV 0524 Sodium Chloride 100 ML Artificial Tears 1 GTT TID PRN 10/30 213 AC OU Clonazepam 0.5 MG .STK-MED ONE 11/01 2044 DC PO 11/01 204 Clonazepam 0.5 MG QPM 10/30 2200 AC 11/01 PO 11/06 215 205 Fluticasone 2 SPRAY DAILY 10/31 1000 AC 11/02 Propionate MARIA ANTONIA 0849 Furosemide 20 MG Q48 11/01 1000 AC 11/01 PO 0932 Guaifenesin 10 ML Q4H PRN 10/30 2130 AC 10/31 PO 0254 Insulin Aspart 0 TIDAC 10/31 1700 AC SC Melatonin 5 MG AT BEDTIME 10/30 2345 AC 11/01 PO 2050 Metoprolol Tartrate 25 MG BID 10/30 220 AC 11/02 PO 0849 Omeprazole 20 MG DAILY AC 10/31 0700 AC 11/02 PO 0525 Oxycodone/ 1 TAB Q6P PRN 10/31 1545 AC 11/02 Acetaminophen PO 0843 Sodium Hypochlorite 1 HILARIA BID 10/30 220 AC 11/02 TOP 1033 Vital Signs & I&O Last 24 Hrs of Vitals and I&O: Vital Signs Date Time Temp Pulse Resp B/P Pulse O2 O2 Flow FiO2 Ox Delivery Rate 11/02 0849 74 118/60 11/02 0828 97 Nasal 3.0L Cannula 11/02 08 95 Nasal 3.0L Cannula 11/02 0631 97.6 60 20 132/64 97 Nasal 2.0L Cannula 11/02 0013 118/60 11/01 2248 98.2 83 20 100/50 94 Room Air 11/01 2126 97 Nasal 3.0L Cannula 11/01 2049 72 140/68 11/01 1600 Nasal 3.0L Cannula 11/01 1356 98.4 73 20 130/64 96 Room Air Intake & Output 11/02 1600 11/02 0800 11/02 0000 Intake Total 730 Output Total 450 Balance 280 Intake, IV 130 Intake, Oral 600 Output, Urine 450 Exam Other Physical Findings: General - Alert, awake and oriented HEENT - normocephalic, atraumatic Cardiovascular - S1, S2 Lungs - bilateral wheezing Abdomen - soft, bowel sounds positive, no tenderness Extremities - some edema Neuro patient is paraplegic Skin wound was not evaluated during this examination Impression/Plan Impression/Plan Impression/Plan: Impression 71-year-old man. 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 Poor mucociliary clearance secondary to paresis. Plan - TRC/Nebs - RT therapy to continue active mucociliary clearance with flutter device, incentive spirometry, possibly vest therapy and chest PT - continue nebulizer beta agonist therapy in the meantime - his presentation is most consistent with poor mucociliary clearance and other than a chronic cough he is virtually asymptomatic - his oxygen saturation is adequate at this time - DVT prophylaxis at all times Consider echocardiogram to evaluate valvular function and estimate pulmonary pressures. with respect to surgery, no further pulmonary testing is necessary prior to surgery, if continues to be at baseline, would be acceptable to proceed with surgical plan.
--- NOTE | 2016-11-02 12:46 | PN- General Surgery ---
Surgical Brief Attending Note Brief Attending Note: The patient has been cleared by pulmonary medicine for surgery Patient subjectively says his breathing is much better Exam: In general he appears well and not short of breath. Abdomen is soft nontender Plan: Patient is scheduled for surgery this Saturday. Plan is for suprapubic cystostomy tube and laparoscopic possibly open diverting colostomy. Continue aggressive pulmonary toilet over the weekend On Saturday we will begin surgical preparations
[2016-11-02 14:46] VITALS: BP 140/50
[2016-11-02 23:05] VITALS: BP 130/50
[2016-11-03 06:51] VITALS: BP 130/50
[2016-11-03 08:14] LABS: ABSOLUTE BASOPHIL COUNT 0 /CUMM (0.0-0.2); ABSOLUTE EOSINOPHIL COUNT 0.5 /CUMM (0.0-0.7); ABSOLUTE GRANULOCYTE CT 6.6 /CUMM (1.4-6.5); ABSOLUTE LYMPH COUNT 1.4 /CUMM (1.2-3.4); ABSOLUTE MONOCYTE COUNT 0.8 /CUMM (0.10-0.60); BASOPHIL % 0.3 % (0.0-2.0); EOSINOPHIL % 5.6 % (0-5); GRANULOCYTE % 71.1 % (42.2-75.2); HEMATOCRIT 26.8 % (42-52); MEAN CORPUSCULAR HGB 27.9 PG (27.0-31.0); MEAN CORPUSCULAR HGB CONC 32.6 G/DL (33.0-37.0); MEAN CORPUSCULAR VOLUME 85.8 FL (80.0-94.0); MEAN PLATELET VOLUME 7.1 FL (7.4-10.4); PLATELET COUNT 528 /CUMM (130-400); RBC DISTRIBUTION WIDTH 18.3 % (11.5-14.5); RED BLOOD CELL CT 3.12 /CUMM (4.70-6.10); WHITE BLOOD CELL COUNT 9.3 /CUMM (4.8-10.8)
--- NOTE | 2016-11-03 08:51 | PN- General Surgery ---
See Addendum Subjective Subjective: Awaiting surgery this Saturday. No complaints offered. Tolerating a diet. Having BMs. No CP/SOB. Objective Vital Signs and I&Os Vital Signs Date Time Temp Pulse Resp B/P Pulse O2 O2 Flow FiO2 Ox Delivery Rate 11/03 0651 97.9 68 19 130/50 95 Nasal Cannula 11/03 0000 95 Nasal 2.0L Cannula 11/02 2305 98.0 69 20 130/50 95 Nasal Cannula 11/02 2215 70 132/60 11/02 1929 95 Nasal 3.0L Cannula 11/02 1600 97 Nasal 3.0L Cannula 11/02 1446 97.9 69 20 140/50 94 Nasal 2.0L Cannula 11/02 0849 74 118/60 Intake & Output 11/03 1600 11/03 0800 11/03 0000 11/02 1600 11/02 0800 11/02 0000 Intake Total 500 880 700 360 730 Output Total 1250 1291 954 5113 450 Balance -750 -120 150 -740 280 Intake, IV 300 180 100 260 130 Intake, Oral 200 700 600 100 600 Number 1 1 0 Bowel Movements Output, Urine 1250 2755 090 4970 450 Patient 177 lb Weight Physical Exam: Gen: AAOx3 in NAD Cor: S1+S2+ Lungs: CTA tima Abd: soft, NT, ND, +BS x4 Ext: no calf swelling noted tima. Current Medications: Current Medications Sig/Mey Start time Last Medication Dose Route Stop Time Status Admin Albuterol Sulfate 3 ML TID 10/31 2199 AC 11/03 INH 0835 Alprazolam 0.5 MG TID PRN 10/30 2129 AC 10/31 PO 11/06 2128 214 Ampicillin Sodium/ 3,000 MG Q6H 10/31 0530 AC 11/03 Sulbactam Sodium IV 0531 Sodium Chloride 100 ML Artificial Tears 1 GTT TID PRN 10/30 2129 AC OU Clonazepam 0.5 MG .STK-MED ONE 11/02 221 DC PO 11/02 221 Clonazepam 0.5 MG QPM 10/30 2200 AC 11/02 PO 11/06 2159 221 Fluticasone 2 SPRAY DAILY 10/31 1000 AC 11/02 Propionate MARIA ANTONIA 0849 Furosemide 20 MG Q48 11/01 1000 AC 11/01 PO 0932 Guaifenesin 10 ML Q4H PRN 10/30 2129 AC 10/31 PO 0254 Heparin Sodium 5,000 UNIT Q8 11/02 1400 AC 11/03 (Porcine) SC 0531 Insulin Aspart 0 TIDAC 10/31 1700 AC 11/02 SC 1743 Melatonin 5 MG AT BEDTIME 10/30 2345 AC 11/02 PO 2215 Metoprolol Tartrate 25 MG BID 10/30 2200 AC 11/02 PO 2215 Omeprazole 20 MG DAILY AC 10/31 0700 AC 11/03 PO 0531 Oxycodone/ 1 TAB Q6P PRN 10/31 1545 AC 11/03 Acetaminophen PO 0531 Patient Medication 1 ED .STK-MED ONE 11/02 1357 DC Teaching ED 11/02 1358 Sodium Hypochlorite 1 HILARIA BID 10/30 2200 AC 11/02 TOP 2215 Results Last 48 Hours of Labs: Laboratory Tests 11/03 0540 Chemistry Sodium (137 - 145 mmol/L) 140 Potassium (3.5 - 5.1 mmol/L) 4.1 Chloride (98 - 107 mmol/L) 98 Carbon Dioxide (22 - 30 mmol/L) 31 H Anion Gap (5 - 16) 11 BUN (9 - 20 mg/dL) 14 Creatinine (0.7 - 1.2 mg/dL) 0.6 L Estimated GFR (>60 ml/min) > 60 BUN/Creatinine Ratio (7 - 25 %) 23.3 Magnesium (1.6 - 2.3 mg/dL) 2.0 Hematology CBC w Diff Pending WBC Pending RBC Pending Hgb Pending Hct Pending MCV Pending MCH Pending RDW Pending Plt Count Pending MPV Pending PUBS MCHC Pending Assessment/Plan Assessment/Plan A: 71 year old male with paraplegia s/p spinal ischemia after AAA repair with decubitus ulcer requiring SPT and diverting colostomy, scheduled for this Saturday. AVSS Plan: Continue current care. OR Saturday. Will preop Saturday. Core Measures/Miscellaneous Venous Thromboembolism VTE Risk Factors: Age > 40, Immobility, paresis VTE Contraindications: No Contraindications VTE Prophylaxis Ordered Inpt Mechanical (ALPS/TEDS) VTE Diagnosis: No VTE Type: NONE VTE Confirmed by (Test): NONE Beta Lisa Is Beta Lisa a Home Med? Yes If Yes, Was This Ordered Today? Yes Antibiotics Is Patient on Antibiotics? Yes If Yes: infection
--- NOTE | 2016-11-03 09:14 | PN- Housestaff ---
Subjective Follow-up For: Sacral decubitus ulcer Complaints: no complaints Subjective: I examined the patient today. He was lying comfortably in bed and was not in any acute distress. He did not have any complaints, vitals have been stable overnight, no overnight issues. Review of Systems Constitutional: Reports: no symptoms. Cardiovascular: Reports: no symptoms. Respiratory: Reports: no symptoms. Gastrointestinal: Reports: no symptoms. Genitourinary: Reports: no symptoms. Skin: Reports: see HPI. Objective Last 24 Hrs of Vital Signs/I&O Vital Signs Date Time Temp Pulse Resp B/P Pulse O2 O2 Flow FiO2 Ox Delivery Rate 11/03 1454 97.7 68 20 142/86 98 11/03 1047 68 130/50 11/03 0855 94 Nasal 3.0L Cannula 11/03 0800 Nasal 3.0L Cannula 11/03 0651 97.9 68 19 130/50 95 Nasal Cannula 11/03 0000 95 Nasal 2.0L Cannula 11/02 2305 98.0 69 20 130/50 95 Nasal Cannula 11/02 2215 70 132/60 11/02 1929 95 Nasal 3.0L Cannula Intake & Output 11/03 1600 11/03 0800 11/03 0000 Intake Total 700 500 880 Output Total 1375 1250 1000 Balance -675 -750 -120 Intake, IV 100 300 180 Intake, Oral 600 200 700 Number 1 1 Bowel Movements Output, Urine 1375 1250 1000 Physical Exam General Appearance: Alert, Oriented X3, Cooperative, No Acute Distress Skin: sacral ulcer has been well dressed, no leakage or soakage Cardiovascular: Regular Rate, Normal S1, Normal S2 Lungs: Clear to Auscultation, Normal Air Movement Abdomen: Normal Bowel Sounds, Soft, No Tenderness, sacral ulcer has been well- dressed today, no leakage, no soakage Current Medications: Current Medications Sig/Mey Start time Last Medication Dose Route Stop Time Status Admin Albuterol Sulfate 3 ML TID 10/31 2199 AC 11/03 INH 1414 Alprazolam 0.5 MG TID PRN 10/30 2129 AC 10/31 PO 11/06 2128 214 Ampicillin Sodium/ 3,000 MG Q6H 10/31 0530 AC 11/03 Sulbactam Sodium IV 1047 Sodium Chloride 100 ML Artificial Tears 1 GTT TID PRN 10/30 2129 AC OU Clonazepam 0.5 MG .STK-MED ONE 11/02 2210 DC PO 11/02 2211 Clonazepam 0.5 MG QPM 10/30 2200 AC 11/02 PO 11/06 2159 2215 Fluticasone 2 SPRAY DAILY 10/31 1000 AC 11/03 Propionate MARIA ANTONIA 1048 Furosemide 20 MG Q48 11/01 1000 AC 11/03 PO 1047 Guaifenesin 10 ML Q4H PRN 10/30 2130 AC 10/31 PO 0254 Heparin Sodium 5,000 UNIT Q8 11/02 1400 AC 11/03 (Porcine) SC 1308 Insulin Aspart 0 TIDAC 10/31 1700 AC 11/03 SC 1308 Melatonin 5 MG AT BEDTIME 10/30 2345 AC 11/02 PO 2215 Metoprolol Tartrate 25 MG BID 10/30 2200 AC 11/03 PO 1047 Omeprazole 20 MG DAILY AC 10/31 0700 AC 11/03 PO 0531 Oxycodone/ 1 TAB Q6P PRN 10/31 1545 AC 11/03 Acetaminophen PO 1317 Sodium Hypochlorite 1 HILARIA BID 10/30 2200 AC 11/03 TOP 1048 Last 24 Hrs of Lab/Perfecto Results Last 24 Hrs of Labs/Mics: Laboratory Tests 11/03/16 0540: Anion Gap 11, Estimated GFR > 60, BUN/Creatinine Ratio 23.3, Magnesium 2.0, CBC w Diff NO MAN DIFF REQ, RBC 3.12 L, MCV 85.8, MCH 27.9, RDW 18.3 H, MPV 7.1 L , Gran % 71.1, Lymphocytes % 14.8 L, Monocytes % 8.2, Eosinophils % 5.6 H, Basophils % 0.3, Absolute Granulocytes 6.6 H, Absolute Lymphocytes 1.4, Absolute Monocytes 0.8 H, Absolute Eosinophils 0.5, Absolute Basophils 0, PUBS MCHC 32.6 L Assessment/Plan Assessment: 71 year-old gentleman from [facility] with history of aortic aneurysm 4 years ago status post surgery complicated by spinal shock and paraplegia, indwelling Boston catheter, nonhealing sacral decubitus previous history of osteomyelitis with recent episode in September 2016 treated with Unasyn, current admission under surgical service for diverting colostomy as well as a suprapubic cystostomy had episode of dyspnea and surgery was canceled and he was transferred to the medical service. Today patient is at his baseline is not complaining of dyspnea. Large decubitus ulcer osteomyelitis of the sacral bone Currently being managed with IV antibiotics and regular wound care. Continue IV Unasyn. Management as per surgery History of COPD continue new TRC/nebs Pulmn on board appreciate recommendations, echocardiogram pending Continue with Lasix Hypertension Continue Lopressor Diabetes Monitor fingersticks On insulin sliding scale Diabetic diet DVT prophylaxis ALPS Problem List: 1. Decubitus ulcer Pain Ratin Pain Location: Sacral area Pain Goal: Pain 4 or less Pain Plan: When necessary Tomorrow's Labs & Rationales: CBC, to monitor the status of infection
--- NOTE | 2016-11-03 13:34 | PN- Pulmonary ---
Subjective HPI/Critical Care Issues: Doing ok stable baseline Objective Current Medications: Current Medications Sig/Mey Start time Last Medication Dose Route Stop Time Status Admin Albuterol Sulfate 3 ML TID 10/31 2200 AC 11/03 INH 0835 Alprazolam 0.5 MG TID PRN 10/30 2130 AC 10/31 PO 11/06 2128 2143 Ampicillin Sodium/ 3,000 MG Q6H 10/31 0530 AC 11/03 Sulbactam Sodium IV 1047 Sodium Chloride 100 ML Artificial Tears 1 GTT TID PRN 10/30 2130 AC OU Clonazepam 0.5 MG .STK-MED ONE 11/02 2210 DC PO 11/02 2211 Clonazepam 0.5 MG QPM 10/30 2200 AC 11/02 PO 11/06 2158 221 Fluticasone 2 SPRAY DAILY 10/31 1000 AC 11/03 Propionate MARIA ANTONIA 1048 Furosemide 20 MG Q48 11/01 1000 AC 11/03 PO 1047 Guaifenesin 10 ML Q4H PRN 10/30 2130 AC 10/31 PO 0254 Heparin Sodium 5,000 UNIT Q8 11/02 1400 AC 11/03 (Porcine) SC 1308 Insulin Aspart 0 TIDAC 10/31 1700 AC 11/03 SC 1308 Melatonin 5 MG AT BEDTIME 10/30 2345 AC 11/02 PO 2215 Metoprolol Tartrate 25 MG BID 10/30 2200 AC 11/03 PO 1047 Omeprazole 20 MG DAILY AC 10/31 0700 AC 11/03 PO 0531 Oxycodone/ 1 TAB Q6P PRN 10/31 1545 AC 11/03 Acetaminophen PO 1317 Patient Medication 1 ED .STK-MED ONE 11/02 1357 DC Teaching ED 11/02 1358 Sodium Hypochlorite 1 HILARIA BID 10/30 220 AC 11/03 TOP 1048 Vital Signs & I&O Last 24 Hrs of Vitals and I&O: Vital Signs Date Time Temp Pulse Resp B/P Pulse O2 O2 Flow FiO2 Ox Delivery Rate 11/03 1047 68 130/50 11/03 0855 94 Nasal 3.0L Cannula 11/03 0800 Nasal 3.0L Cannula 11/03 0651 97.9 68 19 130/50 95 Nasal Cannula 11/03 0000 95 Nasal 2.0L Cannula 11/02 2305 98.0 69 20 130/50 95 Nasal Cannula 11/02 2215 70 132/60 11/02 1929 95 Nasal 3.0L Cannula 11/02 1600 97 Nasal 3.0L Cannula 11/02 1446 97.9 69 20 140/50 94 Nasal 2.0L Cannula Intake & Output 11/03 1600 11/03 0800 11/03 0000 Intake Total 500 880 Output Total 1250 1000 Balance -750 -120 Intake, IV 300 180 Intake, Oral 200 700 Number 1 Bowel Movements Output, Urine 1250 1000 Impression/Plan Impression/Plan Impression/Plan: Physical Exam: Gen: AAOx3 in NAD Cor: S1+S2+ Lungs: CTA tima Abd: soft, NT, ND, +BS x4 Ext: no calf swelling noted tima. Paraplegic, decub 71 year old male with paraplegia s/p spinal ischemia after AAA repair with decubitus ulcer requiring SPT and diverting colostomy, scheduled for this Saturday Pt has recurrent uti Large decub with osteo REC CONT iv abx Surg on saturday Transfer pt to surg svc Will follow
--- NOTE | 2016-11-03 13:35 | Surgical Discharge Summary ---
Visit Information Visit Dates Admission Date: 10/30/16 Discharge Date: 11/11/16 History of Present Illness Chief Complaint: non-healing decubitus ulceration Medical History Neurological: PARAPLEGIA STATUS POST SPINAL SHOCK POSTOP EENT: NONE Cardiovascular: CAD, hypertension, hyperlipidemia, ABDOMINAL ANEURYSM Respiratory: asthma Gastrointestinal: GERD Renal: neurogenic bladder, UTI Musculoskeletal: decubitis ulcer (OSTEOMYELITIS) Psychiatric: anxiety, depression Endocrine: DIABETES TYPE 2 Cancer(s): prostate cancer History of MRSA: No History of VRE: No History of CDIFF: No Isolation History: Standard Pneumonia Vaccine: 08/07/13 Influenza Vaccine: 09/04/16 Surgical History Pertinent Surgical History: AAA repair x2 once 2002, and 2013 Family History Relations & Conditions If Any: MOTHER FH: coronary artery disease FH: diabetes mellitus BROTHER FH: diabetes mellitus SISTER Psychosocial History Who Do You Live With? Paid Attentent Services at Home: Nursing What is Your Primary Language? Turkish ETOH Use: denies use Review of Systems: see H&P Hospital Course Course Attending Physician: SLIM COLE MD Primary Care Physician: SLIM COLE MD Hospital Course: Mr. Peterson is a 71 year old paraplegic male with diabetes, hypertension, and a non-healing decubitus ulceration which has been present for the last 5 weeks. He was directly admitted to the hospital on 10/30/16 for preoperative clearance prior to a diverting colostomy and suprapubic tube placement. Prior to his scheduled surgery, he was noted to be acutely short of breath and his surgery was cancelled. He was seen by pulmonology, and ultimately obtained clearance. He underwent a diverting colostomy and SPT placement on 11/06/16. He did well post operatively, and was transferred to the surgical floor. Postoperatively, patient was found to have significant hematuria. He was started on continuous bladder irrigation as per urology recommendations. He was anemic, but remained hemodynamically stable throughout his postoperative course. On postoperative day #4, the CBI was discontinued. He was having bowel function and diet was slowly advanced. Boston catheter removed 11/11/16. Complications: None Allergies: Coded Allergies: NO KNOWN ALLERGIES (10/18/16) Significant Procedures: 11/06/16 laparoscopic colostomy creation 11/06/16 suprapubic catheter tube Disposition Summary Disposition Principal Diagnosis: Paraplegia Sacral decubitis ulcer Need for colostomy and suprapubic catheter to allow for ulcer healing. Additional Diagnosis: None Discharge Disposition: SNF Discharge Instructions General Discharge Information Code Status: Full Code Patient's Diet: Resume normal diet Patient's Activity: No heavy lifting Follow-Up Instructions/Appts: f/u with Dr. Koch in 1 month, call office to schedule appointment call Dr. Irizarry's office to schedule appointment Medications at Discharge Discharge Medications: Continue taking these medications: Aspirin (Children's Aspirin) 81 MG TAB.CHEW 1 Tablet ORAL DAILY Days = 30 Comments: Last Taken: 01/25/15 Time: 09:53 A.M Baclofen (Lioresal) 10 MG TABLET 1 Tablet ORAL Every Morning Days = 30 Comments: Last Taken: 01/25/15 Time: 09:53 A.M Rosuvastatin Calcium (Crestor) 20 MG TABLET 1 Tablet ORAL DAILY Days = 30 Comments: Last Taken: 01/25/16 Time: 8:05 P.M TOOK LIPITOR INSTEAD. Furosemide (Lasix) 20 MG TABLET 1 Tablet ORAL Every other day Days = 30 Comments: Last Taken: 01/25/15 Time: 09:53 A.M Multivitamin (Multiple Vitamins) 1 EACH TABLET 1 Tablet ORAL Every Morning Days = 30 Comments: Last Taken: 01/25/15 Time: 09:53 A.M MOMETASONE/FORMOTEROL (Dulera 100 Mcg/5 Mcg Inhaler) 100 MCG-5 MCG/ACTUATION HFA.AER.AD 2 Puff Inhale through mouth TWICE DAILY Qty = 3 Comments: Last Taken: NOT GIVEN IN HOSP Time: Insulin Aspart, Recombinant (Novolog) 100 U/ML DARRON 0 Units Inject into fatty tissue As Directed Instructions: BLOOD SUGAR # OF UNITS < 80 NONE 80-150 NONE 151-200 4 UNITS 201-250 6 UNITS 251-300 8 UNITS 301-350 10 UNITS 351-400 12 UNITS >400 14 UNITS and call MD Comments: Last Taken: 01/25/15 Time: 12:00 P.M W-[facility] Saturday & SATURDAY 4:30PM SLIDING SCALE METFORMIN HCL (Metformin) 1,000 MG TABLET 1 Tablet ORAL TWICE DAILY Comments: Last Taken: NOT GIVEN IN HOSP Time: Metoprolol Tartrate (Lopressor) 25 MG TABLET 1 Tablet ORAL TWICE DAILY Comments: Last Taken:NOT GIVEN IN HOSP Time: OXYCODONE HCL/ACETAMINOPHEN (Percocet 7.5-325 MG Tablet) 325 MG/7.5 MG TAB 1 Tablet ORAL Q6H Comments: Last Taken: 01/25/15 Time: 11:59 a.m Melatonin (Melatonin) 5 MG TAB.SUBL 1 Tablet ORAL TAKE AT BEDTIME Comments: Last Taken: 01/24/15 Time: 08:05 P.M Clonazepam (Klonopin) 0.5 MG TABLET 1 Tablet ORAL Every night Comments: Last Taken: NOT GIVEN IN HOSP Time: Protein Supplement (Promod) 946 ML LIQUID 30 Milliliters ORAL DAILY Comments: NOT GIVEN IN HOSPTIAL Omeprazole (Omeprazole) 20 MG TABLET.DR 1 Tablet ORAL DAILY Comments: Last Taken:10/26/16 Time:5:50 AM [place]-3 Fatty Acids ([place]-3) 1,000 MG CAPSULE 1 Capsule ORAL DAILY Comments: NOT GIVEN IN HOSPITAL Saccharomyces Boulardii (Florastor) (Unknown Strength) CAPSULE 1 Capsule ORAL DAILY Comments: NOT GIVEN IN HOSPITAL Potassium Chloride (Potassium Chloride) 20 MEQ TAB.ER.PRT 1 Tablet ORAL DAILY Qty = 30 Comments: NOT GIVEN IN HOSPITAL Dextran 70/Hypromellose (Artificial Tears) 1 EACH DROPERETTE 1 DROP OPHTHALMIC THREE TIMES DAILY as needed for BOTH EYES Comments: NOTE GIVEN IN HOSPITAL Fluticasone Propionate (Flonase Allergy Relief) 50 MCG/ACTUATION SPRAY.SUSP 2 [place] Both sides of nose DAILY as needed for NASAL CONGESTION Comments: NOT GIVEN IN HOSPITAL Acetaminophen (Acephen) 650 MG SUPP.RECT 1 SUPPOSITORY RECTALLY Q4H as needed for PAIN/TEMP>/100 Comments: NOT GIVEN IN HOSPITAL Acetaminophen (Acetaminophen) 325 MG CAPSULE 2 Capsule ORAL Q4H as needed for PAIN/TEMP>/100 Comments: Last Taken:10/26/16 Time:4:20 PM Na Phos,M-B/Na Phos,Di-Ba (Fleet Enema) 19 GRAM-7 GRAM/118 ML ENEMA 1 Enema RECTAL DAILY as needed for CONSTIPATION Comments: NOT GIVEN IN HOSPTIAL Bisacodyl (Bisacodyl) 10 MG SUPP.RECT 1 Suppository RECTAL as needed for CONSTIPATION Comments: NOT GIVEN IN HOSPITAL Magnesium Hydroxide (Milk Of Magnesia) 400 MG/5 ML ORAL.SUSP 30 Milliliters ORAL DAILY as needed for CONSTIPATION Comments: NOT GIVEN IN HOSPITAL Calcium Carbonate (Calcium) 500 MG CALCIUM (1,250 MG) TAB.CHEW 2 Tablet ORAL Q8H as needed for GI DISCOMFORT Comments: NOT GIVEN IN HOSPITAL Alprazolam (Alprazolam) 0.5 MG TABLET 1 Tablet ORAL Q8H as needed for ANXIETY Comments: Last Taken:10/23/16 Time:8:00 AM Guaifenesin (Q-Tussin) 100 MG/5 ML LIQUID 10 Milliliters ORAL Q4H as needed for COUGH Comments: Last Taken:10/25/16 Time:10:10 PM Dakins Solution (Dakin's) 0.25 % SOLUTION 1 Application On the skin TWICE DAILY Days = 14 Instructions: Apply to sacral ulcer twice a day. Comments: Last Taken:10/26/16 Time:10:00 AM Oxybutynin Chloride (Oxybutynin Chloride) 5 MG TABLET 2.5 Milligram ORAL TWICE DAILY Days = 14 Comments: Last Taken:10/26/16 Time:8:00 AM Ampicillin Sodium/Sulbactam Na (Unasyn 3 Gm Vial) 3 GRAM VIAL 3 Gram INTRAVEN Q6H Comments: PER FEROZ Cyanocobalamin (Vitamin B-12) (B-12) 1,000 MCG TABLET 1 Tablet ORAL DAILY Comments: PER FEROZ Methylcellulose (Fiber) (Unknown Strength) TABLET Unknown Dose ORAL DAILY Comments: PER FEROZ
[2016-11-03 14:54] VITALS: BP 142/86
[2016-11-04 06:44] VITALS: BP 142/60
--- NOTE | 2016-11-04 07:38 | PN- General Surgery ---
See Addendum Subjective Subjective: No acute overnight events reported. No c/o chest pain, shortness of breath and difficulty breathing. No nausea or vomitting. Objective Vital Signs and I&Os Vital Signs Date Time Temp Pulse Resp B/P Pulse O2 O2 Flow FiO2 Ox Delivery Rate 11/04 0644 97.6 64 20 142/60 96 Nasal 3.0L Cannula 11/04 0000 Nasal 3.0L Cannula 11/03 2236 77 140/50 11/03 2020 95 Nasal 3.0L Cannula 11/03 1600 Nasal 3.0L Cannula 11/03 1454 97.7 68 20 142/86 98 11/03 1047 68 130/50 11/03 0855 94 Nasal 3.0L Cannula 11/03 0800 Nasal 3.0L Cannula Intake & Output 11/04 0800 11/04 0000 11/03 1600 11/03 0800 11/03 0000 11/02 1600 Intake Total 700 500 700 500 880 700 Output Total 1050 1300 1375 1250 1000 550 Balance -350 -800 -675 -750 -120 150 Intake, IV 300 100 300 180 100 Intake, Oral 400 500 600 200 700 600 Number 0 4 1 1 1 Bowel Movements Output, Urine 1050 1300 1375 1250 1000 550 Patient 177 lb Weight Physical Exam: General: AAO x3, no acute distress Cardiac: RRR, s1s2 Pulmonary: Bilateral lung sounds clear to auscultation Abdomen: Soft, non-tender, +bs Extremities: No peripheral edema, skin well perfused, pulses palpable, calves soft bilaterally Assessment/Plan Assessment/Plan This is a 71 year old male, hx of paraplegia due to ischemic event when having aaa repair. Has stage 4 decubitus ulcer with osteomyelitis. Planning on colostomy and placement of suprapubic catheter on saturday -Continue current care -Will make npo after midnight tomorrow in anticipation of saturday's procedure Core Measures/Miscellaneous Venous Thromboembolism VTE Risk Factors: Age > 40, Immobility, paresis VTE Contraindications: No Contraindications VTE Prophylaxis Ordered Inpt Mechanical (ALPS/TEDS) VTE Diagnosis: No VTE Type: NONE VTE Confirmed by (Test): NONE Beta Lisa Is Beta Lisa a Home Med? Yes If Yes, Was This Ordered Today? Yes Antibiotics Is Patient on Antibiotics? Yes If Yes: infection
[2016-11-04 08:34] LABS: ABSOLUTE BASOPHIL COUNT 0 /CUMM (0.0-0.2); ABSOLUTE EOSINOPHIL COUNT 0.5 /CUMM (0.0-0.7); ABSOLUTE GRANULOCYTE CT 7.1 /CUMM (1.4-6.5); ABSOLUTE LYMPH COUNT 1.3 /CUMM (1.2-3.4); ABSOLUTE MONOCYTE COUNT 0.8 /CUMM (0.10-0.60); BASOPHIL % 0.5 % (0.0-2.0); EOSINOPHIL % 5.3 % (0-5); GRANULOCYTE % 72.8 % (42.2-75.2); HEMATOCRIT 28.2 % (42-52); MEAN CORPUSCULAR HGB CONC 32.2 G/DL (33.0-37.0); MEAN CORPUSCULAR VOLUME 86.9 FL (80.0-94.0); MEAN PLATELET VOLUME 6.9 FL (7.4-10.4); PLATELET COUNT 550 /CUMM (130-400); RBC DISTRIBUTION WIDTH 18.5 % (11.5-14.5); RED BLOOD CELL CT 3.25 /CUMM (4.70-6.10); WHITE BLOOD CELL COUNT 9.8 /CUMM (4.8-10.8)
--- NOTE | 2016-11-04 10:44 | PN- Pulmonary ---
Subjective HPI/Critical Care Issues: No acute overnight events reported. No c/o chest pain, shortness of breath and difficulty breathing. No nausea or vomitting. Objective Current Medications: Current Medications Sig/Mey Start time Last Medication Dose Route Stop Time Status Admin Albuterol Sulfate 3 ML TID 10/31 2199 AC 11/04 INH 0801 Alprazolam 0.5 MG TID PRN 10/30 213 AC 10/31 PO 11/06 2128 214 Ampicillin Sodium/ 3,000 MG Q6H 10/31 0530 AC 11/04 Sulbactam Sodium IV 0549 Sodium Chloride 100 ML Artificial Tears 1 GTT TID PRN 10/30 21311/04 OU 0113 Clonazepam 0.5 MG .STK-MED ONE 11/03 2207 DC PO 11/03 2208 Clonazepam 0.5 MG QPM 10/30 2199 AC 11/03 PO 11/06 2159 2236 Fluticasone 2 SPRAY DAILY 10/31 1000 AC 11/03 Propionate MARIA ANTONIA 1048 Furosemide 20 MG Q48 11/01 1000 AC 11/03 PO 1047 Guaifenesin 10 ML Q4H PRN 10/30 213 AC 10/31 PO 0254 Heparin Sodium 5,000 UNIT Q8 11/02 1400 AC 11/04 (Porcine) SC 0549 Insulin Aspart 0 TIDAC 10/31 1700 AC 11/03 SC 1308 Melatonin 5 MG AT BEDTIME 10/30 2345 AC 11/03 PO 2236 Metoprolol Tartrate 25 MG BID 10/30 220 AC 11/03 PO 2236 Omeprazole 20 MG DAILY AC 10/31 0700 AC 11/04 PO 0549 Oxycodone/ 1 TAB Q6P PRN 10/31 1545 AC 11/04 Acetaminophen PO 0550 Sodium Hypochlorite 1 HILARIA BID 10/30 220 AC 11/03 TOP 2236 Laboratory Tests 11/04 11/03 0558 0540 Chemistry Sodium (137 - 145 mmol/L) 140 Potassium (3.5 - 5.1 mmol/L) 4.1 Chloride (98 - 107 mmol/L) 98 Carbon Dioxide (22 - 30 mmol/L) 31 H Anion Gap (5 - 16) 11 BUN (9 - 20 mg/dL) 14 Creatinine (0.7 - 1.2 mg/dL) 0.6 L Estimated GFR (>60 ml/min) > 60 BUN/Creatinine Ratio (7 - 25 %) 23.3 Magnesium (1.6 - 2.3 mg/dL) 2.0 Hematology CBC w Diff NO MAN DIFF REQ NO MAN DIFF REQ WBC (4.8 - 10.8 /CUMM) 9.8 9.3 RBC (4.70 - 6.10 /CUMM) 3.25 L 3.12 L Hgb (14.0 - 18.0 G/DL) 9.1 L 8.7 L Hct (42 - 52 %) 28.2 L 26.8 L MCV (80.0 - 94.0 FL) 86.9 85.8 MCH (27.0 - 31.0 PG) 28.0 27.9 RDW (11.5 - 14.5 %) 18.5 H 18.3 H Plt Count (130 - 400 /CUMM) 550 H 528 H MPV (7.4 - 10.4 FL) 6.9 L 7.1 L Gran % (42.2 - 75.2 %) 72.8 71.1 Lymphocytes % (20.5 - 51.1 %) 13.1 L 14.8 L Monocytes % (1.7 - 9.3 %) 8.3 8.2 Eosinophils % (0 - 5 %) 5.3 H 5.6 H Basophils % (0.0 - 2.0 %) 0.5 0.3 Absolute Granulocytes (1.4 - 6.5 /CUMM) 7.1 H 6.6 H Absolute Lymphocytes (1.2 - 3.4 /CUMM) 1.3 1.4 Absolute Monocytes (0.10 - 0.60 /CUMM) 0.8 H 0.8 H Absolute Eosinophils (0.0 - 0.7 /CUMM) 0.5 0.5 Absolute Basophils (0.0 - 0.2 /CUMM) 0 0 PUBS MCHC (33.0 - 37.0 G/DL) 32.2 L 32.6 L Vital Signs & I&O Last 24 Hrs of Vitals and I&O: Vital Signs Date Time Temp Pulse Resp B/P Pulse O2 O2 Flow FiO2 Ox Delivery Rate 11/04 0803 98 Nasal 3.0L Cannula 11/04 0644 97.6 64 20 142/60 96 Nasal 3.0L Cannula 11/04 0000 Nasal 3.0L Cannula 11/03 2236 77 140/50 11/03 2020 95 Nasal 3.0L Cannula 11/03 1600 Nasal 3.0L Cannula 11/03 1454 97.7 68 20 142/86 98 11/03 1047 68 130/50 Intake & Output 11/04 1600 11/04 0800 11/04 0000 Intake Total 700 500 Output Total 1050 1300 Balance -350 -800 Intake, IV 300 Intake, Oral 400 500 Number 0 4 Bowel Movements Output, Urine 1050 1300 Impression/Plan Impression/Plan Impression/Plan: Physical Exam: Gen: AAOx3 in NAD Cor: S1+S2+ Lungs: CTA tima Abd: soft, NT, ND, +BS x4 Ext: no calf swelling noted tima. Paraplegic, decub 71 year old male with paraplegia s/p spinal ischemia after AAA repair with decubitus ulcer requiring SPT and diverting colostomy, scheduled for this Saturday Pt has recurrent uti Large decub with osteo REC CONT iv abx Surg on saturday Transfer pt to surg svc Will follow
[2016-11-04 14:48] VITALS: BP 138/56
[2016-11-04 22:26] VITALS: BP 140/50
--- NOTE | 2016-11-05 06:52 | PN- General Surgery ---
See Addendum Subjective Subjective: Resting comfortably in bed. No complaints offered. Denies CP/SOB, N/V, F/C. Voiding via zheng catheter. Continues to have BMs. Objective Vital Signs and I&Os Vital Signs Date Time Temp Pulse Resp B/P Pulse O2 O2 Flow FiO2 Ox Delivery Rate 11/05 727 97.6 70 18 142/66 94 Nasal 3.0L Cannula 11/05 0000 94 Nasal 3.0L Cannula 11/04 2226 97.7 74 20 140/50 94 Nasal 3.0L Cannula 11/04 2135 140/60 11/04 2005 96 Nasal 3.0L Cannula 11/04 1600 93 Nasal 3.0L Cannula 11/04 1448 98.0 77 20 138/56 95 11/04 1112 60 142/60 11/04 0803 98 Nasal 3.0L Cannula 11/04 0800 Nasal 3.0L Cannula Intake & Output 11/05 0800 11/05 0000 11/04 1600 11/04 0800 11/04 0000 11/03 1600 Intake Total 360 500 900 700 500 700 Output Total 1400 6768 402 7999 1300 1375 Balance -1040 -651 275 -350 -800 -675 Intake, IV 260 300 100 Intake, Oral 100 500 900 400 500 600 Number 1 1 1 0 4 1 Bowel Movements Output, Stool 1 Output, Urine 1400 1765 083 8472 1300 1375 Physical Exam: Gen: AAOx3 in NAD Cor: S1+S2+ Lungs: CTA tima, on oxygen via nasal cannula Abd: soft, NT, ND, +BS x4 Ext: no edema to tima lower extremities. Results Last 48 Hours of Labs: Laboratory Tests 11/05 11/04 0600 0558 Chemistry Sodium Pending Potassium Pending Chloride Pending Carbon Dioxide Pending Anion Gap Pending BUN Pending Creatinine Pending BUN/Creatinine Ratio Pending Hematology CBC w Diff Pending NO MAN DIFF REQ WBC (4.8 - 10.8 /CUMM) Pending 9.8 RBC (4.70 - 6.10 /CUMM) Pending 3.25 L Hgb (14.0 - 18.0 G/DL) Pending 9.1 L Hct (42 - 52 %) Pending 28.2 L MCV (80.0 - 94.0 FL) Pending 86.9 MCH (27.0 - 31.0 PG) Pending 28.0 RDW (11.5 - 14.5 %) Pending 18.5 H Plt Count (130 - 400 /CUMM) Pending 550 H MPV (7.4 - 10.4 FL) Pending 6.9 L Gran % (42.2 - 75.2 %) 72.8 Lymphocytes % (20.5 - 51.1 %) 13.1 L Monocytes % (1.7 - 9.3 %) 8.3 Eosinophils % (0 - 5 %) 5.3 H Basophils % (0.0 - 2.0 %) 0.5 Absolute Granulocytes (1.4 - 6.5 /CUMM) 7.1 H Absolute Lymphocytes (1.2 - 3.4 /CUMM) 1.3 Absolute Monocytes (0.10 - 0.60 /CUMM) 0.8 H Absolute Eosinophils (0.0 - 0.7 /CUMM) 0.5 Absolute Basophils (0.0 - 0.2 /CUMM) 0 PUBS MCHC (33.0 - 37.0 G/DL) Pending 32.2 L Assessment/Plan Assessment/Plan A: 71 year old male with paraplegia with associated decubitus ulceration. Scheduled for diverting colostomy with SP tube tomorrow. Plan: NPO p MN. IVF at midnight. T&S pending. EKG/CXR reviewed. INR subtherapeutic from 10/30/16. Core Measures/Miscellaneous Venous Thromboembolism VTE Risk Factors: Age > 40, Immobility, paresis VTE Contraindications: No Contraindications VTE Prophylaxis Ordered Inpt Mechanical (ALPS/TEDS) VTE Diagnosis: No VTE Type: NONE VTE Confirmed by (Test): NONE Beta Lisa Is Beta Lisa a Home Med? Yes If Yes, Was This Ordered Today? Yes Antibiotics Is Patient on Antibiotics? Yes If Yes: infection
[2016-11-05 07:28] VITALS: BP 142/66
--- NOTE | 2016-11-05 07:33 | PN- Att Addend ---
Attending Addendum Attending Brief Note Medical attending note. Patient is fairly stable no change in medical condition Patient is scheduled to get the water colostomy and suprapubic cystostomy. Large decubitus ulcer on IV Unasyn 3 g.
[2016-11-05 08:30] LABS: ABSOLUTE BASOPHIL COUNT 0.1 /CUMM (0.0-0.2); ABSOLUTE EOSINOPHIL COUNT 0.5 /CUMM (0.0-0.7); ABSOLUTE GRANULOCYTE CT 7.8 /CUMM (1.4-6.5); ABSOLUTE LYMPH COUNT 1.3 /CUMM (1.2-3.4); ABSOLUTE MONOCYTE COUNT 0.9 /CUMM (0.10-0.60); BASOPHIL % 0.5 % (0.0-2.0); EOSINOPHIL % 4.8 % (0-5); GRANULOCYTE % 73.6 % (42.2-75.2); HEMATOCRIT 29.3 % (42-52); MEAN CORPUSCULAR HGB 27.7 PG (27.0-31.0); MEAN CORPUSCULAR HGB CONC 31.9 G/DL (33.0-37.0); MEAN CORPUSCULAR VOLUME 86.8 FL (80.0-94.0); PLATELET COUNT 550 /CUMM (130-400); RBC DISTRIBUTION WIDTH 18.4 % (11.5-14.5); RED BLOOD CELL CT 3.37 /CUMM (4.70-6.10); WHITE BLOOD CELL COUNT 10.5 /CUMM (4.8-10.8)
--- NOTE | 2016-11-05 09:36 | PN- Pulmonary ---
Subjective HPI/Critical Care Issues: pt seen and examined no dyspnea saturating 94% 3LNC doing chest pt/flutter device therapy no n/v/d/c no daugherty phlegm improving with chest pt Objective Current Medications: Current Medications Sig/Mey Start time Last Medication Dose Route Stop Time Status Admin Albuterol Sulfate 3 ML TID 10/31 220 AC 11/04 INH 2005 Alprazolam 0.5 MG TID PRN 10/30 2130 AC 10/31 PO 11/06 2128 214 Ampicillin Sodium/ 3,000 MG Q6H 10/31 0530 AC 11/05 Sulbactam Sodium IV 0602 Sodium Chloride 100 ML Artificial Tears 1 GTT TID PRN 10/30 213 AC 11/04 OU 0113 Clonazepam 0.5 MG .STK-MED ONE 11/04 2111 DC PO 11/04 211 Clonazepam 0.5 MG QPM 10/30 220 AC 11/04 PO 11/06 2159 213 Fluticasone 2 SPRAY DAILY 10/31 1000 AC 11/05 Propionate MARIA ANTONIA 0914 Furosemide 20 MG Q48 11/01 1000 AC 11/05 PO 0914 Guaifenesin 10 ML Q4H PRN 10/30 2130 AC 10/31 PO 0254 Heparin Sodium 5,000 UNIT Q8 11/02 1400 AC 11/05 (Porcine) SC 0559 Insulin Aspart 0 TIDAC 10/31 1700 AC 11/04 SC 1237 Melatonin 5 MG AT BEDTIME 10/30 2345 AC 11/04 PO 2135 Metoprolol Tartrate 25 MG BID 10/30 2200 AC 11/05 PO 0918 Omeprazole 20 MG DAILY AC 10/31 0700 AC 11/05 PO 0559 Oxycodone/ 1 TAB Q6P PRN 10/31 1545 AC 11/05 Acetaminophen PO 0600 Sodium Chloride 1,000 ML Q13H 11/06 0000 AC IV Sodium Hypochlorite 1 HILARIA BID 10/30 2200 AC 11/05 TOP 0914 Vital Signs & I&O Last 24 Hrs of Vitals and I&O: Vital Signs Date Time Temp Pulse Resp B/P Pulse O2 O2 Flow FiO2 Ox Delivery Rate 11/05 0728 97.6 70 18 142/66 94 Nasal 3.0L Cannula 11/05 0000 94 Nasal 3.0L Cannula 11/04 2225 97.7 74 20 140/50 94 Nasal 3.0L Cannula 11/04 2135 140/60 11/04 2004 96 Nasal 3.0L Cannula 11/04 1600 93 Nasal 3.0L Cannula 11/04 1448 98.0 77 20 138/56 95 11/04 1112 60 142/60 Intake & Output 11/05 1600 11/05 0800 11/05 0000 Intake Total 360 500 Output Total 1400 1151 Balance -1040 -651 Intake, IV 260 Intake, Oral 100 500 Number 1 1 Bowel Movements Output, Stool 1 Output, Urine 1400 1150 Exam Other Physical Findings: General - Alert, awake and oriented HEENT - normocephalic, atraumatic Cardiovascular - S1, S2 Lungs - bilateral wheezing Abdomen - soft, bowel sounds positive, no tenderness Extremities - some edema Neuro patient is paraplegic Skin wound was not evaluated during this examination Results Last 24 Hrs of Lab Results: Laboratory Tests 11/05/16 0600: Anion Gap 8, Estimated GFR > 60, BUN/Creatinine Ratio 27.1 H, CBC w Diff NO MAN DIFF REQ, RBC 3.37 L, MCV 86.8, MCH 27.7, RDW 18.4 H, MPV 7.0 L, Gran % 73.6, Lymphocytes % 12.8 L, Monocytes % 8.3, Eosinophils % 4.8, Basophils % 0.5, Absolute Granulocytes 7.8 H, Absolute Lymphocytes 1.3, Absolute Monocytes 0.9 H, Absolute Eosinophils 0.5, Absolute Basophils 0.1, PUBS MCHC 31.9 L Impression/Plan Impression/Plan Impression/Plan: Impression 71-year-old man. 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 Poor mucociliary clearance secondary to paresis. Plan - TRC/Nebs - RT therapy to continue active mucociliary clearance with flutter device, incentive spirometry, possibly vest therapy and chest PT - continue nebulizer beta agonist therapy in the meantime - his presentation is most consistent with poor mucociliary clearance and other than a chronic cough he is virtually asymptomatic - his oxygen saturation is adequate at this time, goal >88-92% - DVT prophylaxis at all times Consider echocardiogram to evaluate valvular function and estimate pulmonary pressures. Plan for surgery tomorrow.
--- NOTE | 2016-11-05 09:59 | ECHOCARDIOGRAM REPORT ---
YOLANDA SUMMERS Age: 71 : 1945 Gender: M Exam Date: 11/04/2016 10:25 Exam Location: [address] Ht (in): 69 Wt (lb): 177 BSA: 1.99 BP: 140 / 68 Ordering Physician: MAYTE ARCE MD Referring Physician: MAYTE ARCE MD Technologist: Arleen Potter [facility] Room Number: 231 Indications: SHORTNESS OF BREATH Rhythm: Sinus Technical Quality: Good FINDINGS Left Ventricle Normal size left ventricle. Mild concentric left ventricular hypertrophy. Normal left ventricular ejection fraction visually estimated at >60%. Normal left ventricular wall motion. Right Ventricle Normal right ventricular size and function. Right Atrium Normal right atrial size. Left Atrium Normal left atrial size. Mitral Valve Mild mitral annular calcification. Mitral valve thickened. Mild mitral regurgitation. Aortic Valve Diffuse thickening (sclerosis) of the aortic valve cusps without reduced excursion. Mild to moderate aortic regurgitation. No aortic stenosis. Tricuspid Valve Tricuspid valve not well visualized, grossly normal. Trace tricuspid regurgitation. No evidence of pulmonary hypertension. Pulmonic Valve Pulmonic valve not well visualized, grossly normal. Pericardium No pericardial effusion. Great Vessels Normal size aortic root. CONCLUSIONS Normal size left ventricle. Mild concentric left ventricular hypertrophy. Normal left ventricular ejection fraction visually estimated at > 60%. Mild mitral regurgitation. Mild to moderate aortic regurgitation. Trace tricuspid regurgitation. Harlan Cárdenas M.D. (Electronically Signed) Final Date: 05 November 2016 09:59 MEASUREMENTS (Male / Female) Normal Values 2D ECHO LV Diastolic Diameter PLAX 5.6 cm 4.2 - 5.9 / 3.9 - 5.3 cm LV Systolic Diameter PLAX 2.9 cm 2.1 - 4.0 cm LV Fractional Shortening PLAX 48.2 % 25 - 46 % LV Ejection Fraction 2D Teich 79.0 % IVS Diastolic Thickness 1.4 cm LVPW Diastolic Thickness 1.4 cm LV Relative Wall Thickness 0.5 RV Internal Dim ED PLAX 2.9 cm 1.9 - 3.8 cm LVOT Diameter 2.2 cm Aortic Root Diameter 3.8 cm LA Systolic Diameter LX 4.0 cm 3.0 - 4.0 / 2.7 - 3.8 cm LA Volume 48.0 cm 18 - 58 / 22 - 52 cm Ascending Aorta Diameter 3.6 cm DOPPLER AV Peak Velocity 186.0 cm/s AV Peak Gradient 13.8 mmHg AV Mean Velocity 136.0 cm/s AV Mean Gradient 8.0 mmHg AV Velocity Time Integral 40.5 cm AI Deceleration [place] 251.0 cm/s AI Peak Velocity 389.0 cm/s AI Pressure Half Time 454.0 ms AI Peak Gradient 60.5 mmHg LVOT Peak Velocity 121.0 cm/s LVOT Peak Gradient 5.9 mmHg LVOT Mean Velocity 84.3 cm/s LVOT Mean Gradient 3.0 mmHg LVOT Velocity Time Integral 27.6 cm LVOT Stroke Volume 104.9 cm AV Area Cont Eq vti 2.6 cm AV Area Cont Eq pk 2.5 cm MV Peak Velocity 99.2 cm/s MV Peak Gradient 3.9 mmHg MV Mean Velocity 55.0 cm/s MV Mean Gradient 1.0 mmHg Mitral E Point Velocity 76.0 cm/s Mitral A Point Velocity 44.9 cm/s Mitral E to A Ratio 1.7 MV PHT Velocity 107.0 cm/s MV Deceleration [place] 516.0 cm/s MV Pressure Half Time 62.2 ms MV Area PHT 3.5 cm MV Deceleration Time 211.0 ms TR Peak Velocity 98.9 cm/s TR Peak Gradient 3.9 mmHg Right Atrial Pressure 5.0 mmHg Pulmonary Artery Systolic Pressu 8.9 mmHg Right Ventricular Systolic Press 8.9 mmHg PV Peak Velocity 97.1 cm/s PV Peak Gradient 3.8 mmHg PV Mean Velocity 64.1 cm/s PV Mean Gradient 2.0 mmHg PV Velocity Time Integral 17.7 cm LV E' Lateral Velocity 4.7 cm/s Mitral E to LV E' Lateral Ratio 16.2 LV E' Septal Velocity 5.9 cm/s Mitral E to LV E' Septal Ratio 13.0
[2016-11-05 14:38] VITALS: BP 120/60
[2016-11-05 22:28] VITALS: BP 120/70
[2016-11-06 05:24] LABS: ABSOLUTE BASOPHIL COUNT 0.1 /CUMM (0.0-0.2); ABSOLUTE EOSINOPHIL COUNT 0.4 /CUMM (0.0-0.7); ABSOLUTE LYMPH COUNT 1.2 /CUMM (1.2-3.4); ABSOLUTE MONOCYTE COUNT 1.1 /CUMM (0.10-0.60); BASOPHIL % 0.5 % (0.0-2.0); EOSINOPHIL % 3.3 % (0-5); GRANULOCYTE % 78.1 % (42.2-75.2); HEMATOCRIT 27.8 % (42-52); MEAN CORPUSCULAR HGB 27.8 PG (27.0-31.0); MEAN CORPUSCULAR HGB CONC 32.3 G/DL (33.0-37.0); MEAN CORPUSCULAR VOLUME 85.9 FL (80.0-94.0); MEAN PLATELET VOLUME 6.6 FL (7.4-10.4); PLATELET COUNT 524 /CUMM (130-400); RBC DISTRIBUTION WIDTH 18.4 % (11.5-14.5); RED BLOOD CELL CT 3.24 /CUMM (4.70-6.10); WHITE BLOOD CELL COUNT 12.8 /CUMM (4.8-10.8)
[2016-11-06 07:12] VITALS: BP 140/84
--- NOTE | 2016-11-06 07:42 | PN- Att Addend ---
Attending Addendum Attending Brief Note Medical attending note. Patient is fairly stable no change in his condition. Patient is scheduled for surgery today for diverticular colostomy and suprapubic cystostomy.
--- NOTE | 2016-11-06 09:14 | NUR ---
[facility] IN OR INFORMED PT ISOLATION FOR MRSA, HX: PARAPLEGIA, O2 IN PLACE AT 2 LITERS VIA N/C
--- NOTE | 2016-11-06 12:01 | PN- Pulmonary ---
Subjective HPI/Critical Care Issues: Patient seen and examined. No chest pain, at respiratory baseline. No nausea, vomiting, diarrhea or constipation. Afebrile and hemodynamically stable. Objective Current Medications: Current Medications Sig/Mey Start time Last Medication Dose Route Stop Time Status Admin Albuterol Sulfate 3 ML TID 10/31 2200 AC 11/06 INH 0912 Alprazolam 0.5 MG TID PRN 10/30 2130 AC 10/31 PO 11/06 2129 2143 Ampicillin Sodium/ 3,000 MG Q6H 10/31 0530 AC 11/06 Sulbactam Sodium IV 1130 Sodium Chloride 100 ML Artificial Tears 1 GTT TID PRN 10/30 2130 AC 11/04 OU 0113 Bisacodyl 10 MG ONCE ONE 11/05 1215 DC 11/05 PO 11/05 1216 1409 Clonazepam 0.5 MG .STK-MED ONE 11/05 2159 DC PO 11/05 2200 Clonazepam 0.5 MG QPM 10/30 2200 AC 11/05 PO 11/06 2159 2204 Fluticasone 2 SPRAY DAILY 10/31 1000 AC 11/05 Propionate MARIA ANTONIA 0914 Furosemide 20 MG Q48 11/01 1000 AC 11/05 PO 0914 Guaifenesin 10 ML Q4H PRN 10/30 2130 AC 10/31 PO 0254 Heparin Sodium 5,000 UNIT Q8 11/02 1400 AC 11/06 (Porcine) SC 0626 Insulin Aspart 0 TIDAC 10/31 1700 VT 11/05 SC 1741 Insulin Human Regular 0 Q6 11/05 2359 SC Melatonin 5 MG AT BEDTIME 10/30 2345 AC 11/05 PO 2202 Metoprolol Tartrate 25 MG BID 10/30 2200 AC 11/06 PO 0906 Metronidazole 500 MG ONCE ONE 11/05 2200 DC 11/05 PO 11/05 2201 2333 Metronidazole 500 MG ONCE ONE 11/05 1800 DC 11/05 PO 11/05 1801 2002 Omeprazole 20 MG DAILY AC 10/31 0700 AC 11/05 PO 0559 Oxycodone/ 1 TAB Q6P PRN 10/31 1545 11/06 Acetaminophen PO 0138 Sodium Chloride 1,000 ML Q13H 11/06 0000 11/06 IV 1131 Sodium Hypochlorite 1 HILARIA BID 10/30 2200 11/06 TOP 0725 Vital Signs & I&O Last 24 Hrs of Vitals and I&O: Vital Signs Date Time Temp Pulse Resp B/P Pulse O2 O2 Flow FiO2 Ox Delivery Rate 11/06 0928 94 Nasal 2.0L Cannula 11/06 0906 76 140/80 11/06 0800 95 Nasal 2.0L Cannula 11/06 0712 96.8 66 16 140/84 92 Nasal 2.0L Cannula 11/06 0000 96 Nasal 2.0L Cannula 11/05 2228 98.2 68 20 120/70 96 11/05 2204 88 130/60 11/05 1711 95 Nasal 2.0L Cannula 11/05 1600 Nasal 3.0L Cannula 11/05 1438 98.2 66 20 120/60 95 Intake & Output 11/06 1600 11/06 0800 11/06 0000 Intake Total 600 1200 Output Total 1 2300 2102 Balance -1 -1700 -902 Intake, IV 600 420 Intake, Oral 780 Number 1 1 Bowel Movements Output, Stool 1 2 Output, Urine 2300 2100 Exam Other Physical Findings: General - Alert, awake and oriented HEENT - normocephalic, atraumatic Cardiovascular - S1, S2 Lungs - bilateral wheezing Abdomen - soft, bowel sounds positive, no tenderness Extremities - some edema Neuro patient is paraplegic Skin wound Results Last 24 Hrs of Lab Results: Laboratory Tests 11/06/16 0508: Anion Gap 8, Estimated GFR > 60, BUN/Creatinine Ratio 23.3, CBC w Diff NO MAN DIFF REQ, RBC 3.24 L, MCV 85.9, MCH 27.8, RDW 18.4 H, MPV 6.6 L, Gran % 78.1 H, Lymphocytes % 9.3 L, Monocytes % 8.8, Eosinophils % 3.3, Basophils % 0.5, Absolute Granulocytes 10.0 H, Absolute Lymphocytes 1.2, Absolute Monocytes 1.1 H, Absolute Eosinophils 0.4, Absolute Basophils 0.1, PUBS MCHC 32.3 L Impression/Plan Impression/Plan Impression/Plan: Impression 71-year-old man. 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 Poor mucociliary clearance secondary to paresis. Plan - Planned for surgery today there are no contraindications from the pulmonary perspective and may proceed with surgery without further testing - TRC/Nebs - RT therapy to continue active mucociliary clearance with flutter device, incentive spirometry, possibly vest therapy and chest PT - continue nebulizer beta agonist therapy in the meantime - his presentation is most consistent with poor mucociliary clearance and other than a chronic cough he is virtually asymptomatic - his oxygen saturation is adequate at this time, goal >88-92% - DVT prophylaxis at all times
--- NOTE | 2016-11-06 12:50 | NUR ---
PT TO OR FOR COLOSTOMY AND SUPRA-PUBIC TUBE PLACEMENT
--- NOTE | 2016-11-06 15:57 | Operative Report ---
Operative/Inv Procedure Report Surgery Date: 11/06/16 Name of Procedure: suprapubic tube placement and cystoscopy Pre-Operative Diagnosis: neurogenic bladder with compromised sacral wounds from urinary incontinence Post-Operative Diagnosis: same Estimated Blood Loss: scant Surgeon/Hospital Administrator: SLIM MAGDALENO JR, DO Anesthesia: general endotracheal tube Drains: 16fr zheng in SP tube location Specimens: bladder biopsy Complications: SPT needle not long enough. Used Veress needle instead. Condition: stable Operative Indication: neurogenic bladder with nonhealing sacral wounds and hypospadic urethra. Operative/Procedure Note Note: Bennett Peterson identified in the holding area and consented for a cystoscopy, suprapubic tube placement. THe risks, benefits and alternatives were given and all questions were answered. He was taken to the operating room and placed on the operating room table in a supine position and SCDs were placed. THe indwelling zheng catheter was removed. Time out was performed and he was given IV antibiotics and general anesthesia with an ETT was started. He was then placed in the dorsal lithotomy position and prepped and draped in the standard sterile fashion to include the suprapubic region and lower abdomen. A cystoscopy was performed and the bladder was distorted with trabeculation and henrietta tree configuration. There was an area of chronic inflammation that was biopsied later in the case after the SPT was placed. THe bladder was filled though it was difficult to keep it filled given his incontinence. The [employer] SPT kit was used but the needle provided was not long enough. Several attempts were made to improvise with the SPT kit but was unsuccessful. No bleeding or abnormal fecal material was seen from the puncture site of the SPT. As a result, a veress needle was used and easy access was obtained through the bladder at the dome and seen via the cystoscopic view. The guidewire was then placed and this was followed by the dilators, 8fr and then 10fr and then the graduated dilator with the tear away sheath. Once this was placed under direct vision with the cystoscope, the 16fr zheng was placed into the dilator sheath and the tear sheath was then removed. The zheng balloon was inflated with 10cc of water. The zheng was secured with a 2-0 silk suture. The cystoscope was removed and the patient tolerated the procedure well. Dr. Ruano then started his portion of the case after he was stripped of the draping from my case. Findings: neurogenic bladder. Small area of inflammation that was biopsied at the trigone. Hypospadic urethra to perineum. Well placed SPT. Gaping sacral wound. Discharge Disposition: PACU
--- NOTE | 2016-11-06 17:05 | Operative Report ---
Operative/Inv Procedure Report Surgery Date: 11/06/16 Name of Procedure: Laparoscopic and colectomy Pre-Operative Diagnosis: 1. Fecal incontinence 2. Stage IV pressure ulcers with osteomyelitis Post-Operative Diagnosis: Same Estimated Blood Loss: scant Surgeon/Cargo Handler: SLIM MAGDALENO JR, DO Anesthesia: general endotracheal tube Monitors: Per routine Specimens: Biopsy of colon Complications: None Condition: Good Operative Indication: This is an unfortunate 71-year-old gentleman who became paraplegic following vascular surgery. He has subsequently had chronic issues with pressure ulcers/ decubitus ulcers. He has been having difficulty with wound care related to these pressure ulcerations because he is incontinent of both urine and feces as a result of his spinal cord injury. Today he is having a combined procedure with urology to diaper both his urinary and fecal stream away from the perineum. Dr. Zolatn Koch place a suprapubic cystostomy tube as the first procedure after she was done I perform a laparoscopic end colostomy. Operative/Procedure Note Note: An awake timeout was performed with both surgeons in the room. The patient underwent induction of general anesthesia placement of endotracheal tube. At this point I left the room while Dr Koch did cystoscopy and placement of suprapubic catheter. The patient had been preoperatively marked stoma therapy for his colostomy. After allergy was done with her portion of the test patient was converted to the supine position with right arm tucked. An occlusive dressing was placed over the suprapubic catheter. The abdomen was prepped and draped in usual fashion. We gained access to the abdominal cavity using a Rubio technique. The 12 mm Rubio port was placed in the supraumbilical position. Next we did laparoscopic expiration of the abdominal cavity there was some retroperitoneal fluid but otherwise no abnormalities were noted in the abdominal cavity. 3 additional ports were placed under direct visualization of the laparoscope. First a 12 mm dilating port was placed in the right lower quadrant, next the right upper quadrant 5 mm port was placed and lastly a was placed about 5-7 cm cephalad to the suprapubic catheter. It was grasped and pulled medially. The white line of Toldt was taken down from the pelvic inlet all the way to the proximal descending colon. At this point we appeared to have plenty of redundancy to form a colostomy. Of note, the colon was very dilated and abnormal in caliber. I chose my transection point. The visceral peritoneum was incised with electrocautery. I gently bluntly created a window in the mesentery. Several small arterial branches were identified and divided with the LigaSure. Once the window was complete a laparoscopic FRANKLIN stapler was used to divide the bowel. 60 mm pupil load was used to divide the bowel. A ring of skin and subcutaneous tissue was excised around the stoma renay, down to the layer of the fascia. The fascia was divided in a cruciate fashion. A 5 mm port was inserted at this point through the remaining abdominal wall. A locking grasper was used to grasp the end of the transected sigmoid colon. The incision was then manually dilated. In the transected colon was pulled through this incision. At this point I easily had enough colon to create a Gisselle type stoma. The ports were removed. The fascia at the umbilical port was closed with 0 Vicryl in a figure- of-eight fashion. Skin at all 4 ports was closed with subcuticular 4-0 Monocryl. The skin surface was then sealed with skin glue. These incisions were covered with a sterile towel. The staple line was then excised from the end of the sigmoid colon using electrocautery. There was a copious amount of stool present. This was irrigated and aspirated out of the lumen minimal spillage occurred. The skin and colon were then cleansed again with Betadine and a Gisselle stoma was created with interrupted 3-0 Vicryl suture. Soma was somewhat large because of the dilated nature of the colon. I was able to easily pass my finger into the lumen of the bowel to beyond the fascia. So at this point the procedure was concluded. The skin was cleansed and dried. Mastisol was applied to the skin around the stoma. A stomal collection device was then cut to fit around the stoma and placed over the stoma. The patient was then extubated in the operating room. The patient tolerated the procedure well and was taken to the recovery area in good condition. All needle sponges and instrument were accounted for at the end of this operation. Findings: Healthy pink colostomy at the end of the procedure Discharge Disposition: PACU CC: RAFAL MULLIGAN,ZOLTAN; RENAY MULLIGAN,SVITLANA Coleman; KELSEY MULLIGAN,SLIM Avalos; SHEYLA MULLIGAN,KATI
[2016-11-06 18:30] VITALS: BP 160/62
--- NOTE | 2016-11-06 18:50 | NUR ---
1830 PATIENT BACK ON FLOOR FROM PACU. BED LOW AND LOCKED. CALL LIGHT WITHIN REACH. ALERT AND ORIENTED X 3. DENIES CHEST PAIN. ON 3L 02 VIA NASAL CANNULA. NO DISCOMFORT NOTED
--- NOTE | 2016-11-06 20:47 | PN- General Surgery ---
Subjective Subjective: The patient was seen this evening postoperatively. He reports feeling comfortable at the current time and denies any nausea. He has no other complaints at the current time denies any chest pain difficulty breathing. Objective Vital Signs and I&Os Vital Signs Date Time Temp Pulse Resp B/P Pulse O2 O2 Flow FiO2 Ox Delivery Rate 11/06 0928 94 Nasal 2.0L Cannula 11/06 0906 76 140/80 11/06 0800 95 Nasal 2.0L Cannula 11/06 0712 96.8 66 16 140/84 92 Nasal 2.0L Cannula 11/06 0000 96 Nasal 2.0L Cannula 11/05 2228 98.2 68 20 120/70 96 11/05 2204 88 130/60 Intake & Output 11/06 1600 11/06 0800 11/06 0000 11/05 1600 11/05 0800 11/05 0000 Intake Total 595 981 3383 1100 360 500 Output Total 701 2300 2102 1500 1400 1151 Balance -101 -1700 -902 -400 -1040 -651 Intake, IV 600 600 420 100 260 Intake, Oral 0 780 1000 100 500 Number 1 1 1 1 Bowel Movements Output, Stool 1 2 1 Output, Urine 700 2300 2100 1500 1400 1150 Physical Exam: Gen.: Alert and obvious distress Skin: Warm and dry Cardiac: S1-S2 regular with a questionable systolic ejection murmur Pulmonary: Bilateral breath sounds are equal with some upper respiratory congestion and decreased at bases Abdomen: Soft, obese, nontender, bowel sounds sluggish. Port sites and suprapubic sites are clean, dry, and intact. Colostomy is pink and viable with a scant amount of bloody output in the bag. Scrotum is edematous with small amount of darkish blood from the meatus. Extremities: Bilateral lower extremities are warm without calf tenderness or significant edema. Assessment/Plan Assessment/Plan Assessment: 71-year-old male status post diverting sigmoid colostomy and suprapubic tube placement. Postoperative the patient is progressing as expected and his pain is under adequate control. Plan: Patient may be on a clear liquid diet Strict I's and O's Follow-up morning laboratory studies Resume previous medications Continue IV antibiotics Colostomy care, decubitus ulcer care, and suprapubic care GI and DVT prophylaxis Core Measures/Miscellaneous Venous Thromboembolism VTE Risk Factors: Age > 40, Immobility, paresis VTE Contraindications: No Contraindications VTE Prophylaxis Ordered Inpt Mechanical (ALPS/TEDS) VTE Diagnosis: No VTE Type: NONE VTE Confirmed by (Test): NONE Beta Lisa Is Beta Lisa a Home Med? Yes If Yes, Was This Ordered Today? Yes Antibiotics Is Patient on Antibiotics? Yes If Yes: infection
[2016-11-06 22:07] VITALS: BP 145/72
--- NOTE | 2016-11-06 23:11 | Event Note ---
Event Note Event Note: Called by nursing to see this patient due to gross hematuria. The patient was seen there is a significant amount of bright red blood mixed with urine and clots in the suprapubic catheter. Additionally, the patient started passing bright red blood from his meatus as well. After the suprapubic catheter was irrigated copiously complaining the meatus slow down significantly. A phone call to Dr. Koch the urologist was placed and we are awaiting a return call back. Should we not hear from Dr. Koch the plan will be to insert a Boston catheter via the penis and begin continuous bladder irrigation. Sharad Irizarry, DO the patient surgical attending was notified and agrees the above plan.
--- NOTE | 2016-11-07 00:45 | NUR ---
CALLED SURGICAL PA ABOUT BLOODY DRAINAGE FROM PENIS AT 1900 AND 2100. 2200 AWARE OF BLEEDING. ORDERED SUPRAPUBIC TUBE TO BE IRRIGATED. SUPRAPUBIC TUBE HAD RESISTANCE WHEN IRRIGATED. AWARE.
[2016-11-07 06:32] VITALS: BP 142/68
--- NOTE | 2016-11-07 07:23 | PN- Att Addend ---
Attending Addendum Attending Brief Note Medical attending note. Status post diverting colostomy and suprapubic cystostomy postoperative day #1. Having continuous bladder irrigation with hematuria Patient is nauseous this morning to see her some Zofran Vital Signs Date Time Temp Pulse Resp B/P Pulse O2 O2 Flow FiO2 Ox Delivery Rate 11/07 0632 97.8 99 20 142/68 94 Nasal 3.0L Cannula 11/06 2300 70 165/80 11/06 2206 98.0 80 20 145/72 94 11/06 2135 96 Nasal 3.0L Cannula 11/06 183 93 Nasal 3.0L Cannula 11/06 183 97.3 83 20 160/62 93 Nasal 3.0L Cannula 11/06 0928 94 Nasal 2.0L Cannula 11/06 0906 76 140/80 11/06 0800 95 Nasal 2.0L Cannula Intake & Output 11/07 0800 11/07 0000 11/06 1600 Intake Total 500 600 Output Total 701 Balance 500 -101 Intake, IV 600 Intake, Oral 500 0 Output, Stool 1 Output, Urine 700 On examination patient is awake alert S1-S2 is normal Lungs shows expiratory wheezing with diminished breath sounds both bases Abdomen is soft mildly distended Bowel sounds are faint Current Medications Sig/Mey Start time Last Medication Dose Route Stop Time Status Admin Albuterol Sulfate 3 ML TID 10/31 2199 AC 11/06 INH 2132 Alprazolam 0.5 MG TID PRN 10/30 213 DC 10/31 PO 11/06 2129 2143 Ampicillin Sodium/ 3,000 MG Q6H 10/31 0530 AC 11/07 Sulbactam Sodium IV 0045 Sodium Chloride 100 ML Artificial Tears 1 GTT TID PRN 10/30 213 AC 11/04 OU 0113 Clonazepam 0.5 MG QPM 10/30 2200 DC 11/05 PO 11/06 2159 2204 Dexamethasone 8 MG .STK-MED ONE 11/06 1255 DC IM 11/06 1256 Fentanyl Citrate 250 MCG .STK-MED ONE 11/06 1518 DC IM 11/06 1519 Fentanyl Citrate 250 MCG .STK-MED ONE 11/06 1254 DC IM 11/06 1255 Fluticasone 2 SPRAY DAILY 10/31 1000 AC 11/05 Propionate MARIA ANTONIA 0914 Furosemide 20 MG Q48 11/01 1000 AC 11/05 PO 0914 Guaifenesin 10 ML Q4H PRN 10/30 2130 AC 10/31 PO 0254 Heparin Sodium 5,000 UNIT Q8 11/02 1400 AC 11/06 (Porcine) SC 2300 Hydromorphone HCl 1 MG Q4P PRN 11/06 1630 AC 11/06 IV 2005 Insulin Aspart 0 TIDAC 11/06 1700 AC SC Insulin Human Regular 0 Q6 11/05 2359 DC SC Melatonin 5 MG AT BEDTIME 10/30 2345 AC 11/06 PO 2300 Metoprolol Tartrate 25 MG BID 10/30 2200 AC 11/06 PO 2300 Midazolam HCl 2 MG .STK-MED ONE 11/06 1254 DC IM 11/06 1255 Omeprazole 20 MG DAILY AC 10/31 0700 AC 11/07 PO 0448 Ondansetron HCl 4 MG Q6P PRN 11/07 0130 AC 11/07 IV 0130 Ondansetron HCl 4 MG .STK-MED ONE 11/06 1254 DC IM 11/06 1255 Oxycodone/ 1 TAB Q6P PRN 10/31 1545 AC 11/07 Acetaminophen PO 0130 Sodium Chloride 1,000 ML Q13H 11/06 0000 AC 11/06 IV 1900 Sodium Hypochlorite 1 HILARIA BID 10/30 220 11/06 TOP 2300 Assessment last echo results with osteomyelitis currently on IV Unasyn patient had no underwent a ventriculostomy and as above the pubic cystostomy. TRC DVT prophylaxis
--- NOTE | 2016-11-07 08:13 | PN- General Surgery ---
See Addendum Subjective Subjective: The patient has no complaints at this time. Denies pain. Event note from shea last night documenting problem with suprapubic catheter requiring insertion of zheng via meatus with initiation of cbi due to bleeding & clots. currently at bedside irrigating the system, and switching the inflow from the cbi from the larger catheter to the smaller catheter. Objective Vital Signs and I&Os Vital Signs Date Time Temp Pulse Resp B/P Pulse O2 O2 Flow FiO2 Ox Delivery Rate 11/07 0632 97.8 99 20 142/68 94 Nasal 3.0L Cannula 11/06 2300 70 165/80 11/06 2206 98.0 80 20 145/72 94 11/065 96 Nasal 3.0L Cannula 11/06 1829 93 Nasal 3.0L Cannula 11/06 1829 97.3 83 20 160/62 93 Nasal 3.0L Cannula 11/06 0928 94 Nasal 2.0L Cannula 11/06 0906 76 140/80 Intake & Output 11/07 1600 11/07 0800 11/07 0000 11/06 1600 11/06 0800 11/06 0000 Intake Total 500 888 981 8438 Output Total 701 2300 2102 Balance 500 -101 -1700 -902 Intake, IV 600 600 420 Intake, Oral 500 0 780 Number 1 1 Bowel Movements Output, Stool 1 2 Output, Urine 700 2300 2100 Physical Exam: General - alert. comfortable. no acute distress. Cardiac - s1s2. regular. Lungs - decreased breath sounds b/l bases. Abdomen - soft. no bowel sounds appreciated. nontender (asensate below midabdomen). colostomy pink and viable with a scant amount of bloody output in the bag. - cbi currently running via meatus catheter and draining via suprapubic catheter, but this system is currently being irrigated at the bedside by . Extremities - warm. venodynes active b/l. Assessment/Plan Assessment/Plan 71-year-old male POD#1 s/p diverting sigmoid colostomy and suprapubic tube placement s/p cbi overnight currently with clots requiring bedside irrigation ( at bedside) clears as tolerated. d/c iv fluids pain control as ordered continue iv unasyn for osteo Dr.Camilleri @ bedside addressing the cbi f/u labs colostomy teaching hep sc - dvt ppx will d/w Core Measures/Miscellaneous Venous Thromboembolism VTE Risk Factors: Age > 40, Immobility, paresis VTE Contraindications: No Contraindications VTE Prophylaxis Ordered Inpt Mechanical (ALPS/TEDS) VTE Diagnosis: No VTE Type: NONE VTE Confirmed by (Test): NONE Beta Lisa Is Beta Lisa a Home Med? Yes If Yes, Was This Ordered Today? Yes Antibiotics Is Patient on Antibiotics? Yes If Yes: infection
--- NOTE | 2016-11-07 08:32 | PN- Urology ---
Surgical Brief Attending Note Brief Attending Note: Pt had suprapubic tube placed yesterday. Overnight tube not draining well. Urine was bloody and patient leaking bloody urine and clots per urethra. Attempted to irrigate both catheters but CBI would not run well. Urethral zheng removed and replaced with 22 fr 3-way hematuria catheter. Multiple clots irrigated from bladder. CBI now running welll with pink drainage on moderate CBI. Plan: Run CBI in thru 3-way zheng in urethra. Suprapubic tube and drainage port of urethral 3-way zheng to gravity drainage
[2016-11-07 08:54] LABS: ABSOLUTE BASOPHIL COUNT 0 /CUMM (0.0-0.2); ABSOLUTE EOSINOPHIL COUNT 0.1 /CUMM (0.0-0.7); ABSOLUTE GRANULOCYTE CT 12.5 /CUMM (1.4-6.5); ABSOLUTE LYMPH COUNT 0.8 /CUMM (1.2-3.4); BASOPHIL % 0.2 % (0.0-2.0); EOSINOPHIL % 0.5 % (0-5); HEMATOCRIT 25.8 % (42-52); MEAN CORPUSCULAR HGB 27.6 PG (27.0-31.0); MEAN CORPUSCULAR HGB CONC 31.7 G/DL (33.0-37.0); MEAN CORPUSCULAR VOLUME 87.1 FL (80.0-94.0); MEAN PLATELET VOLUME 7.2 FL (7.4-10.4); PLATELET COUNT 469 /CUMM (130-400); RBC DISTRIBUTION WIDTH 18.3 % (11.5-14.5); RED BLOOD CELL CT 2.96 /CUMM (4.70-6.10)
[2016-11-07 09:16] LABS: WHITE BLOOD CELL COUNT 14.4 /CUMM (4.8-10.8)
--- NOTE | 2016-11-07 10:09 | PN- Pulmonary ---
Subjective HPI/Critical Care Issues: Patient seen and examined. No chest pain, at respiratory baseline. No nausea, vomiting, diarrhea or constipation. Afebrile and hemodynamically stable. Status post surgery without events. Objective Current Medications: Current Medications Sig/Mey Start time Last Medication Dose Route Stop Time Status Admin Albuterol Sulfate 3 ML TID 10/31 2200 AC 11/06 INH 2132 Alprazolam 0.5 MG TID PRN 10/30 2130 DC 10/31 PO 11/06 2128 214 Ampicillin Sodium/ 3,000 MG Q6H 10/31 0530 AC 11/07 Sulbactam Sodium IV 0700 Sodium Chloride 100 ML Artificial Tears 1 GTT TID PRN 10/30 2130 AC 11/04 OU 0113 Clonazepam 0.5 MG QPM 10/30 220 DC 11/05 PO 11/06 2158 220 Dexamethasone 8 MG .STK-MED ONE 11/06 1255 DC IM 11/06 1256 Fentanyl Citrate 250 MCG .STK-MED ONE 11/06 1518 DC IM 11/06 1519 Fentanyl Citrate 250 MCG .STK-MED ONE 11/06 1254 DC IM 11/06 1255 Fluticasone 2 SPRAY DAILY 10/31 1000 AC 11/05 Propionate MARIA ANTONIA 0914 Furosemide 20 MG Q48 11/01 1000 AC 11/05 PO 0914 Guaifenesin 10 ML Q4H PRN 10/30 213 AC 10/31 PO 0254 Heparin Sodium 5,000 UNIT Q8 11/02 1400 AC 11/07 (Porcine) SC 0700 Hydromorphone HCl 1 MG Q4P PRN 11/06 1630 11/06 IV 2005 Insulin Aspart 0 TIDAC 11/06 1700 SC Insulin Human Regular 0 Q6 11/05 2359 VA SC Melatonin 5 MG AT BEDTIME 10/30 2345 AC 11/06 PO 2300 Metoprolol Tartrate 25 MG BID 10/30 2200 AC 11/06 PO 2300 Midazolam HCl 2 MG .STK-MED ONE 11/06 1254 DC IM 11/06 1255 Omeprazole 20 MG DAILY AC 10/31 0700 AC 11/07 PO 0448 Ondansetron HCl 4 MG Q6P PRN 11/07 0130 11/07 IV 0900 Ondansetron HCl 4 MG .STK-MED ONE 11/06 1254 DC IM 11/06 1255 Oxycodone/ 1 TAB Q6P PRN 10/31 1545 AC 11/07 Acetaminophen PO 0130 Potassium Chloride 20 MEQ Q13H 11/07 0930 AC Sodium Chloride 1,000 ML IV Sodium Chloride 1,000 ML Q13H 11/06 0000 DC 11/06 IV 1900 Sodium Hypochlorite 1 HILARIA BID 10/30 2200 AC 11/07 TOP 0900 Vital Signs & I&O Last 24 Hrs of Vitals and I&O: Vital Signs Date Time Temp Pulse Resp B/P Pulse O2 O2 Flow FiO2 Ox Delivery Rate 11/07 0632 97.8 99 20 142/68 94 Nasal 3.0L Cannula 11/06 2300 70 165/80 11/06 2207 98.0 80 20 145/72 94 11/06 2135 96 Nasal 3.0L Cannula 11/06 1830 93 Nasal 3.0L Cannula 11/06 183 97.3 83 20 160/62 93 Nasal 3.0L Cannula Intake & Output 11/07 1600 11/07 0800 11/07 0000 Intake Total 500 Output Total Balance 500 Intake, Oral 500 Exam Other Physical Findings: General - Alert, awake and oriented HEENT - normocephalic, atraumatic Cardiovascular - S1, S2 Lungs - bilateral wheezing Abdomen - soft, bowel sounds positive, no tenderness, stoma intact Extremities - some edema Neuro patient is paraplegic Skin wound Results Last 24 Hrs of Lab Results: Laboratory Tests 11/07/16 0700: Anion Gap 9, Estimated GFR > 60, BUN/Creatinine Ratio 22.0, Magnesium 1.7, CBC w Diff NO MAN DIFF REQ, RBC 2.96 L, MCV 87.1, MCH 27.6, RDW 18.3 H, MPV 7.2 L, Gran % 87.0 H, Lymphocytes % 5.3 L, Monocytes % 7.0, Eosinophils % 0.5, Basophils % 0.2, Absolute Granulocytes 12.5 H, Absolute Lymphocytes 0.8 L, Absolute Monocytes 1.0 H, Absolute Eosinophils 0.1, Absolute Basophils 0, PUBS MCHC 31.7 L Impression/Plan Impression/Plan Impression/Plan: Impression 71-year-old man. 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 Poor mucociliary clearance secondary to paresis. Plan - TRC/Nebs - continue active mucociliary clearance with flutter device, incentive spirometry, chest PT - continue nebulizer beta agonist therapy in the meantime - DVT prophylaxis at all times Call with any questions would continue to have RT evaluation at [place]
--- NOTE | 2016-11-07 12:00 | NUR ---
PT STILL C/O NAUSEA, PT UNABLE TO TAKE PO MEDS. SHIRLEY CASTRO NOTIFIED, REGLAN GIVEN ORDERED
[2016-11-07 12:37] VITALS: BP 142/80
[2016-11-07 14:29] VITALS: BP 160/60
--- NOTE | 2016-11-07 20:40 | PN- General Surgery ---
Surgical Brief Attending Note Brief Attending Note: Pt seen and examined tonight. He had a few instances of spit up. Stoma is viable, edematous, with minimal output. AVSS NAD, AAO x3 Abdomen: soft, mildly distended, NT, stoma edematous and viable A/P: A 71 y/o man POD #1 s/p lap diverting stoma and suprapubic urinary catheter with mild postop ileus - Keep on sips and ice chips - Monitor stoma output - Monitor I&O - DVT prophylaxis - F/U labs - Stoma care
[2016-11-07 22:28] VITALS: BP 160/60
[2016-11-08 06:50] VITALS: BP 160/70
--- NOTE | 2016-11-08 07:29 | PN- Att Addend ---
Attending Addendum Attending Brief Note Medical attending note. Status post aortic colostomy and suprapubic cystotomy in #2 Patient has got less nausea and vomiting. CBI shows blood-tinged urine but hematuria is markedly decreased. Laboratory Tests 11/08 0550 Chemistry Sodium Pending Potassium Pending Chloride Pending Carbon Dioxide Pending Anion Gap Pending BUN Pending Creatinine Pending BUN/Creatinine Ratio Pending Magnesium Pending Hematology CBC w Diff Pending WBC Pending RBC Pending Hgb Pending Hct Pending MCV Pending MCH Pending RDW Pending Plt Count Pending MPV Pending PUBS MCHC Pending Vital Signs Date Time Temp Pulse Resp B/P Pulse O2 O2 Flow FiO2 Ox Delivery Rate 11/08 0650 97.9 70 20 160/70 90 Nasal 3.0L Cannula 11/08 0000 Nasal 3.0L Cannula 11/07 2228 97.7 91 20 160/60 95 Nasal Cannula 11/07 2215 97.7 91 20 160/60 11/07 1600 Nasal 3.0L Cannula 11/07 1429 97.7 91 19 160/60 94 11/07 1330 96 Nasal 3.0L Cannula 11/07 1237 80 18 142/80 97 11/07 0800 94 Nasal 3.0L Cannula Intake & Output 11/08 0800 11/08 0000 11/07 1600 Intake Total 600 585 900 Output Total 808 03 6994 Balance 400 525 -420 Intake, IV 600 525 600 Intake, Oral 60 300 Output, 50 Emesis Output, Stool 20 20 Output, Urine 787 02 6154 On examination S1-S2 is normal Lungs shows diminished breath sounds with bilateral expiratory wheezing. Abdomen is soft mildly distended colostomy is functioning with some residue in the back bowel sounds present Continue with IV Unasyn for osteomyelitis of the sacrum.
--- NOTE | 2016-11-08 07:41 | PN- Urology ---
Subjective Subjective: No distress Objective Vital Signs and I&Os Vital Signs Date Time Temp Pulse Resp B/P Pulse O2 O2 Flow FiO2 Ox Delivery Rate 11/08 0650 97.9 70 20 160/70 90 Nasal 3.0L Cannula 11/08 0000 Nasal 3.0L Cannula 11/07 2228 97.7 91 20 160/60 95 Nasal Cannula 11/07 2215 97.7 91 20 160/60 11/07 1600 Nasal 3.0L Cannula 11/07 1429 97.7 91 19 160/60 94 11/07 1330 96 Nasal 3.0L Cannula 11/07 1237 80 18 142/80 97 11/07 0800 94 Nasal 3.0L Cannula Intake & Output 11/08 0800 11/08 0000 11/07 1600 11/07 0800 11/07 0000 11/06 1600 Intake Total 600 585 900 600 500 600 Output Total 792 51 2789 660 701 Balance 400 525 -420 -60 500 -101 Intake, IV 600 525 600 600 600 Intake, Oral 60 300 0 500 0 Number 0 Bowel Movements Output, 50 240 Emesis Output, Stool 20 20 50 1 Output, Urine 666 19 6610 370 700 Abd: softly distended. Colostomy in tact. Supra pubic tube and dressing in tact Genitalia: 3-way hematuria catheter in place. CBI running at slow to moderate rate with pink drainage Laboratory Tests 11/08 0550 Chemistry Sodium Pending Potassium Pending Chloride Pending Carbon Dioxide Pending Anion Gap Pending BUN Pending Creatinine Pending BUN/Creatinine Ratio Pending Magnesium Pending Hematology CBC w Diff Pending WBC Pending RBC Pending Hgb Pending Hct Pending MCV Pending MCH Pending RDW Pending Plt Count Pending MPV Pending PUBS MCHC Pending Assessment/Plan Assessment/Plan Imp: 1. Hematuria, appears improved compared to yesterday 2. s/p bladder bx and insertion of suprapubic tube Plan: 1. Suprapubic tube to gravity drainage 2. CBI via urethra 3-way catheter 3. Daily Hct Core Measures/Miscellaneous Venous Thromboembolism VTE Risk Factors: Age > 40, Immobility, paresis VTE Contraindications: No Contraindications VTE Prophylaxis Ordered Inpt: Mechanical (ALPS/TEDS) VTE Diagnosis: No VTE Type: NONE VTE Confirmed by (Test): NONE Beta Lisa Is Beta Lisa a Home Med? Yes If Yes, Was This Ordered Today? Yes Antibiotics Is Patient on Antibiotics? Yes If Yes: infection
[2016-11-08 08:26] LABS: ABSOLUTE BASOPHIL COUNT 0 /CUMM (0.0-0.2); ABSOLUTE EOSINOPHIL COUNT 0.1 /CUMM (0.0-0.7); ABSOLUTE GRANULOCYTE CT 9.9 /CUMM (1.4-6.5); ABSOLUTE LYMPH COUNT 0.9 /CUMM (1.2-3.4); BASOPHIL % 0.1 % (0.0-2.0); EOSINOPHIL % 1.1 % (0-5); GRANULOCYTE % 82.4 % (42.2-75.2); HEMATOCRIT 24.1 % (42-52); MEAN CORPUSCULAR HGB 27.8 PG (27.0-31.0); MEAN PLATELET VOLUME 7.2 FL (7.4-10.4); PLATELET COUNT 448 /CUMM (130-400); RBC DISTRIBUTION WIDTH 19.3 % (11.5-14.5); RED BLOOD CELL CT 2.77 /CUMM (4.70-6.10)
--- NOTE | 2016-11-08 08:26 | PN- General Surgery ---
See Addendum Subjective Subjective: No complaints. Denies nausea this morning. Stopped clears yesterday after reports of nausea. New output seen in colostomy bag. Improving hematuria with 3 way catheter / cbi. Objective Vital Signs and I&Os Vital Signs Date Time Temp Pulse Resp B/P Pulse O2 O2 Flow FiO2 Ox Delivery Rate 11/08 0650 97.9 70 20 160/70 90 Nasal 3.0L Cannula 11/08 0000 Nasal 3.0L Cannula 11/07 2228 97.7 91 20 160/60 95 Nasal Cannula 11/07 2215 97.7 91 20 160/60 11/07 1600 Nasal 3.0L Cannula 11/07 1429 97.7 91 19 160/60 94 11/07 1330 96 Nasal 3.0L Cannula 11/07 1237 80 18 142/80 97 Intake & Output 11/08 1600 11/08 0800 11/08 0000 11/07 1600 11/07 0800 11/07 0000 Intake Total 600 585 900 600 500 Output Total 692 25 2863 660 Balance 400 525 -420 -60 500 Intake, IV 600 525 600 600 Intake, Oral 60 300 0 500 Number 0 Bowel Movements Output, 50 240 Emesis Output, Stool 20 20 50 Output, Urine 960 79 1436 370 Physical Exam: General - alert. comfortable. no acute distress. Cardiac - s1s2. regular. Lungs - decreased breath sounds b/l bases. Abdomen - soft. colostomy pink/edematous. colostomy bag full of liquid green- brown output. - 3-way hematuria catheter in place via meatus with cbi running at slow to moderate rate with pink drainage in bag. suprapubic tube to gravity drainage bag. Extremities - warm. venodynes active b/l. Assessment/Plan Assessment/Plan 71-year-old male POD#2 s/p diverting sigmoid colostomy and suprapubic tube placement s/p cbi for hematuria, improving start clears again. d/c iv fluids pain control as ordered continue iv unasyn for osteo f/u urology note / f/u labs colostomy teaching hep sc - dvt ppx will d/w Core Measures/Miscellaneous Venous Thromboembolism VTE Risk Factors: Age > 40, Immobility, paresis VTE Contraindications: No Contraindications VTE Prophylaxis Ordered Inpt Mechanical (ALPS/TEDS) VTE Diagnosis: No VTE Type: NONE VTE Confirmed by (Test): NONE Beta Lisa Is Beta Lisa a Home Med? Yes If Yes, Was This Ordered Today? Yes Antibiotics Is Patient on Antibiotics? Yes If Yes: infection
--- NOTE | 2016-11-08 11:28 | PN- Wound Care ---
Subjective Subjective: Status post diverting colostomy and cystostomy. He is on the [facility] bed for offloading. Objective Vital Signs and I&Os Vital Signs Result Date Time B/P 142/60 11/08 0835 Pulse Ox 93 11/08 0831 O2 Delivery Nasal Cannula 11/08 0831 O2 Flow Rate 3.0L 11/08 0831 Temp 97.9 11/08 0650 Pulse 70 11/08 0650 Resp 20 11/08 0650 Intake & Output 11/08 0000 11/07 1600 11/07 0800 Intake Total 585 900 600 Output Total 60 1320 660 Balance 525 -420 -60 Intake, IV 525 600 600 Intake, Oral 60 300 0 Number 0 Bowel Movements Output, 50 240 Emesis Output, Stool 20 20 50 Output, Urine 40 1250 370 Physical Exam: Stage IV sacral decubitus wound measures 7 x 9 cm and 2 cm deep there is 90% or more red fill central area of exposed bone. There are 2 adjacent stage IV pressure ulcers which are undermined and bridged and total measuring 4 x 2 cm Impression/Plan Impression/Plan Impression/Plan: 71-year-old gentleman with stage IV decubitus pressure ulcer on admission, complicated by osteomyelitis on antibiotics the wound is clean and suitable for placement of wound VAC. The 2 smaller wounds would be easier to manage if the skin bridge was removed and we will discuss with surgery. Wound VAC will be placed once available
[2016-11-08 15:29] VITALS: BP 130/70
[2016-11-08 22:35] VITALS: BP 130/60
[2016-11-09 06:34] VITALS: BP 150/60
--- NOTE | 2016-11-09 07:51 | PN- General Surgery ---
See Addendum Subjective Subjective: NAEO. Pain well controlled. No new c/o. Tolerated clear liquid diet without n /v. States he his hungry. Had increased stool output from colostomy bag overnight with gas. CBI continues to run. Denies CP/SOB. Objective Vital Signs and I&Os Vital Signs Date Time Temp Pulse Resp B/P Pulse O2 O2 Flow FiO2 Ox Delivery Rate 11/09 0634 97.6 61 20 150/60 96 Nasal 3.0L Cannula 11/09 0000 97 Nasal 3.0L Cannula 11/08 2235 97.9 67 20 130/60 97 Nasal Cannula 11/08 2207 97.9 67 20 130/60 11/08 1850 94 Nasal 3.0L Cannula 11/08 1600 96 Nasal 3.0L Cannula 11/08 1529 97.9 67 20 130/70 94 11/08 0835 142/60 11/08 0831 93 Nasal 3.0L Cannula 11/08 0800 Nasal 3.0L Cannula Intake & Output 11/09 0800 11/09 0000 11/08 1600 11/08 0800 11/08 0000 11/07 1600 Intake Total 550 340 780 600 585 900 Output Total 200 250 925 760 80 8471 Balance 350 90 -145 400 525 -420 Intake, IV 300 100 300 600 525 600 Intake, Oral 250 240 480 60 300 Output, 50 Emesis Output, Stool 100 75 125 20 20 Output, Urine 100 175 800 285 82 9029 Physical Exam: General: NAD, comfortable, A&Ox3 Chest: CTAB. RRR. Abdomen: soft, nondistended. Appropriately tender to palpation. Midline incision intact without surrounding erythema, swelling, purulent drainage. Stoma pink and viable ostomy appliance in place with greenish brown stool in bag and some gas. +Bowel sounds x4 quadrants. : Suprapubic catheter in place. CBI zheng in place and running with clear urine output. Ext: No calve swelling/TTP, neurovascularly intact bilateral lower extremities Current Medications: Current Medications Sig/Mey Start time Last Medication Dose Route Stop Time Status Admin Albuterol Sulfate 3 ML TID 10/31 2200 AC 11/08 INH 1850 Ampicillin Sodium/ 3,000 MG Q6H 10/31 0530 AC 11/09 Sulbactam Sodium IV 0501 Sodium Chloride 100 ML Artificial Tears 1 GTT TID PRN 10/30 2130 AC 11/04 OU 0113 Fluticasone 2 SPRAY DAILY 10/31 1000 AC 11/08 Propionate MARIA ANTONIA 0837 Furosemide 20 MG Q48 11/01 1000 AC 11/05 PO 0914 Guaifenesin 10 ML Q4H PRN 10/30 2130 AC 10/31 PO 0254 Heparin Sodium 5,000 UNIT Q8 11/02 1400 AC 11/09 (Porcine) SC 0501 Hydromorphone HCl 1 MG Q4P PRN 11/06 1630 AC 11/09 IV 0500 Insulin Aspart 0 TIDAC 11/09 0800 AC SC Insulin Human Regular 0 Q6 11/08 2359 CAN SC Melatonin 5 MG AT BEDTIME 10/30 2345 AC 11/08 PO 2207 Metoprolol Tartrate 25 MG BID 10/30 2200 AC 11/08 PO 2207 Omeprazole 20 MG DAILY AC 10/31 0700 AC 11/09 PO 0501 Ondansetron HCl 4 MG Q6P PRN 11/07 0130 AC 11/08 IV 0008 Oxycodone/ 1 TAB Q6P PRN 10/31 1545 AC 11/07 Acetaminophen PO 0130 Potassium Chloride 20 MEQ Q13H 11/07 0930 DC 11/07 Sodium Chloride 1,000 ML IV 2215 Sodium Hypochlorite 1 HILARAI BID 10/30 220 AC 11/08 TOP 2208 Results Last 48 Hours of Labs: Laboratory Tests 11/09 11/08 0520 0550 Chemistry Sodium (137 - 145 mmol/L) Pending 142 Potassium (3.5 - 5.1 mmol/L) Pending 3.9 Chloride (98 - 107 mmol/L) Pending 107 Carbon Dioxide (22 - 30 mmol/L) Pending 27 Anion Gap (5 - 16) Pending 8 BUN (9 - 20 mg/dL) Pending 8 L Creatinine (0.7 - 1.2 mg/dL) Pending 0.5 L Estimated GFR (>60 ml/min) > 60 BUN/Creatinine Ratio (7 - 25 %) Pending 16.0 Magnesium (1.6 - 2.3 mg/dL) 1.8 Hematology CBC w Diff Pending NO MAN DIFF REQ WBC (4.8 - 10.8 /CUMM) Pending 12.0 H RBC (4.70 - 6.10 /CUMM) Pending 2.77 L Hgb (14.0 - 18.0 G/DL) Pending 7.7 L Hct (42 - 52 %) Pending 24.1 L MCV (80.0 - 94.0 FL) Pending 87.0 MCH (27.0 - 31.0 PG) Pending 27.8 RDW (11.5 - 14.5 %) Pending 19.3 H Plt Count (130 - 400 /CUMM) Pending 448 H MPV (7.4 - 10.4 FL) Pending 7.2 L Gran % (42.2 - 75.2 %) 82.4 H Lymphocytes % (20.5 - 51.1 %) 7.7 L Monocytes % (1.7 - 9.3 %) 8.7 Eosinophils % (0 - 5 %) 1.1 Basophils % (0.0 - 2.0 %) 0.1 Absolute Granulocytes (1.4 - 6.5 /CUMM) 9.9 H Absolute Lymphocytes (1.2 - 3.4 /CUMM) 0.9 L Absolute Monocytes (0.10 - 0.60 /CUMM) 1.0 H Absolute Eosinophils (0.0 - 0.7 /CUMM) 0.1 Absolute Basophils (0.0 - 0.2 /CUMM) 0 PUBS MCHC (33.0 - 37.0 G/DL) Pending 32.0 L Assessment/Plan Assessment/Plan 71yo M POD#3 s/p diverting sigmoid colostomy and suprapubic tube placement s/p cbi for hematuria, improving - advance to full liquid diet - pain control - continue iv unasyn for osteo - f/u urology - f/u labs - colostomy teaching - sc heparin and ALPS for DVT PPx - will d/w Core Measures/Miscellaneous Venous Thromboembolism VTE Risk Factors: Age > 40, Immobility, paresis VTE Contraindications: No Contraindications VTE Prophylaxis Ordered Inpt Mechanical (ALPS/TEDS) VTE Diagnosis: No VTE Type: NONE VTE Confirmed by (Test): NONE Beta Lisa Is Beta Lisa a Home Med? Yes If Yes, Was This Ordered Today? Yes Antibiotics Is Patient on Antibiotics? Yes If Yes: infection
[2016-11-09 08:07] LABS: ABSOLUTE BASOPHIL COUNT 0.1 /CUMM (0.0-0.2); ABSOLUTE EOSINOPHIL COUNT 0.3 /CUMM (0.0-0.7); ABSOLUTE GRANULOCYTE CT 8.1 /CUMM (1.4-6.5); BASOPHIL % 0.7 % (0.0-2.0); EOSINOPHIL % 2.6 % (0-5); HEMATOCRIT 23.6 % (42-52); MEAN CORPUSCULAR HGB 27.6 PG (27.0-31.0); MEAN CORPUSCULAR HGB CONC 32.1 G/DL (33.0-37.0); MEAN CORPUSCULAR VOLUME 86.1 FL (80.0-94.0); MEAN PLATELET VOLUME 7.2 FL (7.4-10.4); PLATELET COUNT 454 /CUMM (130-400); RBC DISTRIBUTION WIDTH 18.7 % (11.5-14.5); RED BLOOD CELL CT 2.74 /CUMM (4.70-6.10); WHITE BLOOD CELL COUNT 10.5 /CUMM (4.8-10.8)
[2016-11-09 14:22] VITALS: BP 160/60
--- NOTE | 2016-11-09 14:53 | NUR ---
wound care: wound vac applied as per dr agee verbal order and tolerated well bridged to right hip - no c/o voiced - good seal obtained francine 125 mm hg - clinitron mattress on adn functioning recommednation: cleanse sacral wound with ns fb npwt q mon wed fri and prn - cleanse right ischial wound with 1/4 strngth dakins packing and dpd daily - surgery to evaluate of excisional debridement can be done to all for vac placement to ischial wounds
--- NOTE | 2016-11-09 15:14 | Patient Discharge Instructions ---
Discharge Instructions General Discharge Information You were seen/treated for: Pre-Operative Diagnosis: 1. Fecal incontinence 2. Stage IV pressure ulcers with osteomyelitis You had these procedures: 11/06/16: CRS (Dr. Irizarry)-Laparoscopic colostomy creation Urology (Dr. Koch)-suprapubic tube placement and cystoscopy Watch for these problems: Redness, swelling, fever, purulent drainage, signs of infection. No stool and/ or urine output. Uncontrolled pain. Excessive bleeding. Chest pain, shortness of breath. Do not soak the wound: Yes No bath, but you may shower: Yes Other wound care: Daily dressing changes or as needed. Stoma care Special Instructions: Some drainage around suprapubic catheter expected. Change gauze drain sponge as needed. Diet Continue normal diet: Yes Activity Activity Self Limited: Yes Acute Coronary Syndrome Inclusion Criteria At DC or during hospital stay patient has or had the following: ACS DIAGNOSIS No Discharge Core Measures Meds if any: Prescribed or Continued at Discharge Meds if any: NOT Prescribed or Continued at Discharge Congestive Heart Failure Inclusion Criteria At DC or during hospital stay patient has or had the following: CHF DIAGNOSIS No Discharge Core Measures Meds if any: Prescribed or Continued at Discharge Meds if any: NOT Prescribed or Continued at Discharge Cerebrovascular accident Inclusion Criteria At DC or during hospital stay patient has or had the following: CVA/TIA Diagnosis No Discharge Core Measures Meds if any: Prescribed or Continued at Discharge Meds if any: NOT Prescribed or Continued at Discharge Venous thromboembolism Inclusion Criteria VTE Diagnosis No VTE Type NONE VTE Confirmed by (Test) NONE Discharge Core Measures - Per Current guidelines, there needs to be overlap - treatment for the first 5 days of Warfarin therapy. - If discharged on Warfarin prior to 5 days of - overlap therapy, the patient will need to be - assessed for post discharge needs including - *Post discharge parental anticoagulation - *Warfarin and/or parental anticoagulation education - *Follow up date to check INR post discharge At least 5 days overlap therapy as Inpatient No Meds if any: Prescribed or Continued at Discharge Note: Overlap Therapy is Warfarin and Anticoagulant Meds if any: NOT Prescribed or Continued at Discharge
[2016-11-09 22:00] VITALS: BP 130/60
[2016-11-10 06:57] VITALS: BP 140/54
[2016-11-10 08:23] LABS: ABSOLUTE BASOPHIL COUNT 0 /CUMM (0.0-0.2); ABSOLUTE EOSINOPHIL COUNT 0.4 /CUMM (0.0-0.7); ABSOLUTE GRANULOCYTE CT 6.2 /CUMM (1.4-6.5); ABSOLUTE LYMPH COUNT 1.2 /CUMM (1.2-3.4); ABSOLUTE MONOCYTE COUNT 0.8 /CUMM (0.10-0.60); BASOPHIL % 0.4 % (0.0-2.0); EOSINOPHIL % 5.1 % (0-5); GRANULOCYTE % 71.2 % (42.2-75.2); MEAN CORPUSCULAR HGB 27.9 PG (27.0-31.0); MEAN CORPUSCULAR HGB CONC 32.3 G/DL (33.0-37.0); MEAN CORPUSCULAR VOLUME 86.4 FL (80.0-94.0); MEAN PLATELET VOLUME 7.2 FL (7.4-10.4); PLATELET COUNT 455 /CUMM (130-400); RBC DISTRIBUTION WIDTH 18.9 % (11.5-14.5); RED BLOOD CELL CT 2.78 /CUMM (4.70-6.10); WHITE BLOOD CELL COUNT 8.7 /CUMM (4.8-10.8)
--- NOTE | 2016-11-10 08:25 | PN- Urology ---
Subjective Subjective: No distress Objective Vital Signs and I&Os Vital Signs Date Time Temp Pulse Resp B/P Pulse O2 O2 Flow FiO2 Ox Delivery Rate 11/10 0657 97.6 57 20 140/54 98 Nasal Cannula 11/09 2200 98.1 71 18 130/60 96 Nasal 3.0L Cannula 11/09 2142 94 Nasal 2.0L Cannula 11/09 2121 98.1 71 18 130/60 11/09 1600 94 Nasal 3.0L Cannula 11/09 1422 97.7 66 20 160/60 93 11/09 1146 92 Nasal 2.0L Cannula 11/09 0904 64 134/70 Intake & Output 11/10 1600 11/10 0800 11/10 0000 11/09 1600 11/09 0800 11/09 0000 Intake Total 580 1100 550 340 Output Total 1750 1175 200 250 Balance -1170 -75 350 90 Intake, IV 100 100 300 100 Intake, Oral 480 1000 250 240 Output, Stool 125 100 75 Output, Urine 1750 1050 100 175 Abd: soft and non tender. Stoma intact. Suprapubic dressing intact. Genitalia: 3-way zheng in place. CBI running at slow rate with clear drainage Hct=23.6 Assessment/Plan Assessment/Plan Imp: s/p suprapubic tube insertion post op hematuria resolving Plan: d/c CBI Leave suprapubic tube and urethral zheng in place If urine is clear tomorrow can removed urethral zheng
--- NOTE | 2016-11-10 08:38 | PN- General Surgery ---
See Addendum Subjective Subjective: Patient has no major complaints this morning. He is tolerating a diet. No complaints of nausea or vomiting. He continues to have excellent ostomy output. CBI was still in place, but is scheduled to be discontinued this morning, as no further hematuria is observed. Wound VAC was placed in the sacral decubitus ulcer by the wound care team yesterday. Objective Vital Signs and I&Os Vital Signs Date Time Temp Pulse Resp B/P Pulse O2 O2 Flow FiO2 Ox Delivery Rate 11/10 0822 96 Nasal 3.0L Cannula 11/10 0657 97.6 57 20 140/54 98 Nasal Cannula 11/09 2200 98.1 71 18 130/60 96 Nasal 3.0L Cannula 11/09 2142 94 Nasal 2.0L Cannula 11/09 2121 98.1 71 18 130/60 11/09 1600 94 Nasal 3.0L Cannula 11/09 1422 97.7 66 20 160/60 93 11/09 1146 92 Nasal 2.0L Cannula 11/09 0904 64 134/70 Intake & Output 11/10 1600 11/10 0800 11/10 0000 11/09 1600 11/09 0800 11/09 0000 Intake Total 580 1100 550 340 Output Total 1750 1175 200 250 Balance -1170 -75 350 90 Intake, IV 100 100 300 100 Intake, Oral 480 1000 250 240 Output, Stool 125 100 75 Output, Urine 1750 1050 100 175 Physical Exam: Gen.: Patient is awake and alert. No acute distress. He is eating breakfast. Cardiac: Regular Pulmonary: Clear to auscultation bilaterally. Abdomen: Soft and nondistended. Stoma is pink and viable. There is large amount of air and a small amount of loose green stool. Normoactive bowel sounds were heard. Extremities: Paraplegic at baseline. Wound VAC Is in place to the decubitus ulcer. Assessment/Plan Assessment/Plan Patient is a 71-year-old paraplegic male, now postoperative day #4 status post laparoscopic diverting colostomy and placement of a suprapubic tube for osteomyelitis of chronic decubitus ulcers. His postoperative course was complicated by hematuria on postoperative day 1. This has since resolved, and Dr. Rodriguez recommended discontinuation of the CBI today. Patient otherwise remains stable from a general surgical standpoint. Plan: -Okay to continue ADA diet. -Continue Unasyn for osteomyelitis. ?duration. Pt has been on antibiotics since admission on 10/30/16. -Pain control as needed with Percocet. -Wound VAC changes Saturday, Saturday, and Saturday as per wound care team. -Urology is planning for possible removal of urethral catheter tomorrow. He will need to stay in house at least overnight for that. -Will discuss with attending. If further medical issues continue, consider transfer back to medical service. Core Measures/Miscellaneous Venous Thromboembolism VTE Risk Factors: Age > 40, Immobility, paresis VTE Contraindications: No Contraindications VTE Prophylaxis Ordered Inpt Mechanical (ALPS/TEDS) VTE Diagnosis: No VTE Type: NONE VTE Confirmed by (Test): NONE Beta Lisa Is Beta Lisa a Home Med? Yes If Yes, Was This Ordered Today? Yes Antibiotics Is Patient on Antibiotics? Yes If Yes: infection
[2016-11-10 14:41] VITALS: BP 120/60
[2016-11-10 21:46] VITALS: BP 144/60
[2016-11-11 06:44] VITALS: BP 144/60
--- NOTE | 2016-11-11 08:49 | PN- Urology ---
Subjective Subjective: No distress Objective Vital Signs and I&Os Vital Signs Date Time Temp Pulse Resp B/P Pulse O2 O2 Flow FiO2 Ox Delivery Rate 11/11 0644 97.7 72 20 144/60 96 Nasal Cannula 11/10 2146 97.9 76 20 144/60 96 11/10 1858 96 Nasal 3.0L Cannula 11/10 1600 Nasal 3.0L Cannula 11/10 1441 98.5 60 20 120/60 93 11/10 1001 68 140/70 Intake & Output 11/11 1600 11/11 0800 11/11 0000 11/10 1600 11/10 0800 11/10 0000 Intake Total 600 700 310 580 Output Total 850 1050 45 1750 Balance -250 -350 265 -1170 Intake, IV 100 100 Intake, Oral 600 600 50 480 Intake, 260 TPN/PPN Output, Other 25 Output, Stool 100 250 20 Output, Urine [phone] Abd: soft and nontender. Ostomy and suprapubic tube intact [place] and suprapubic tube draining clear urine Hct seems to have stabilized Laboratory Tests 11/11 819 Chemistry Sodium Pending Potassium Pending Chloride Pending Carbon Dioxide Pending Anion Gap Pending BUN Pending Creatinine Pending BUN/Creatinine Ratio Pending Hematology CBC w Diff Pending WBC Pending RBC Pending Hgb Pending Hct Pending MCV Pending MCH Pending RDW Pending Plt Count Pending MPV Pending PUBS MCHC Pending Assessment/Plan Assessment/Plan Imp: 1. S/P suprapubic tube insertion 2. Post op hematuria resolved Plan: 1. OK for discharge from urology point of view 2. First suprapubic tube change should be in our office in about 1 month
--- NOTE | 2016-11-11 09:29 | PN- General Surgery ---
See Addendum Subjective Subjective: NAEO. Patient without new c/o. No pain. Tolerating diet without n/v. Good ostomy output. CBI discontinued yesterday. Denies CP/SOB. Objective Vital Signs and I&Os Vital Signs Date Time Temp Pulse Resp B/P Pulse O2 O2 Flow FiO2 Ox Delivery Rate 11/11 0644 97.7 72 20 144/60 96 Nasal Cannula 11/10 2146 97.9 76 20 144/60 96 11/10 1858 96 Nasal 3.0L Cannula 11/10 1600 Nasal 3.0L Cannula 11/10 1441 98.5 60 20 120/60 93 11/10 1001 68 140/70 Intake & Output 11/11 1600 11/11 0800 11/11 0000 11/10 1600 11/10 0800 11/10 0000 Intake Total 600 700 310 580 Output Total 850 1050 45 1750 Balance -250 -350 265 -1170 Intake, IV 100 100 Intake, Oral 600 600 50 480 Intake, 260 TPN/PPN Output, Other 25 Output, Stool 100 250 20 Output, Urine [phone] Physical Exam: General: NAD, comfortable, A&Ox3 Chest: NRD, breathing comfortably on RA. Heart S1S2 normal. Abdomen: soft, nontender, nondistended. Stoma pink and viable. Ostomy with stool and gas in bag. +Bowel sounds x4 quadrants. : SPT in place with clear yellow urine output. Ext: No calve swelling, vascularly intact bilateral lower extremities Current Medications: Current Medications Sig/Mey Start time Last Medication Dose Route Stop Time Status Admin Albuterol Sulfate 3 ML BID 11/09 2200 AC 11/10 INH 1850 Ampicillin Sodium/ 3,000 MG Q6H 10/31 0530 AC 11/11 Sulbactam Sodium IV 0507 Sodium Chloride 100 ML Artificial Tears 1 GTT TID PRN 10/30 2130 11/10 OU 1002 Fluticasone 2 SPRAY DAILY 10/31 1000 11/08 Propionate MARIA ANTONIA 0837 Furosemide 20 MG Q48 11/01 1000 11/09 PO 0904 Guaifenesin 10 ML Q4H PRN 10/30 2130 AC 10/31 PO 0254 Heparin Sodium 5,000 UNIT Q8 11/02 1400 AC 11/11 (Porcine) SC 0507 Hydromorphone HCl 1 MG Q4P PRN 11/06 1630 AC 11/10 IV 1930 Insulin Aspart 0 TIDAC 11/09 0800 AC 11/10 SC 1223 Melatonin 5 MG AT BEDTIME 10/30 2345 AC 11/10 PO 214 Metoprolol Tartrate 25 MG BID 10/30 220 AC 11/10 PO 214 Omeprazole 20 MG DAILY AC 10/31 0700 AC 11/11 PO 0505 Ondansetron HCl 4 MG Q6P PRN 11/07 0130 AC 11/08 IV 0008 Oxycodone/ 1 TAB Q6P PRN 10/31 1545 AC 11/11 Acetaminophen PO 0505 Potassium Chloride 40 MEQ ONCE ONE 11/10 1415 DC 11/10 PO 11/10 1416 1549 Sodium Hypochlorite 1 HILARIA BID 10/30 2199 11/10 TOP 2147 Results Last 48 Hours of Labs: Laboratory Tests 11/11 11/10 0820 0600 Chemistry Sodium (137 - 145 mmol/L) Pending 142 Potassium (3.5 - 5.1 mmol/L) Pending 3.8 Chloride (98 - 107 mmol/L) Pending 104 Carbon Dioxide (22 - 30 mmol/L) Pending 32 H Anion Gap (5 - 16) Pending 7 BUN (9 - 20 mg/dL) Pending 7 L Creatinine (0.7 - 1.2 mg/dL) Pending 0.6 L Estimated GFR (>60 ml/min) > 60 BUN/Creatinine Ratio (7 - 25 %) Pending 11.7 Hematology CBC w Diff Pending NO MAN DIFF REQ WBC (4.8 - 10.8 /CUMM) Pending 8.7 RBC (4.70 - 6.10 /CUMM) Pending 2.78 L Hgb (14.0 - 18.0 G/DL) Pending 7.8 L Hct (42 - 52 %) Pending 24.0 L MCV (80.0 - 94.0 FL) Pending 86.4 MCH (27.0 - 31.0 PG) Pending 27.9 RDW (11.5 - 14.5 %) Pending 18.9 H Plt Count (130 - 400 /CUMM) Pending 455 H MPV (7.4 - 10.4 FL) Pending 7.2 L Gran % (42.2 - 75.2 %) 71.2 Lymphocytes % (20.5 - 51.1 %) 14.3 L Monocytes % (1.7 - 9.3 %) 9.0 Eosinophils % (0 - 5 %) 5.1 H Basophils % (0.0 - 2.0 %) 0.4 Absolute Granulocytes (1.4 - 6.5 /CUMM) 6.2 Absolute Lymphocytes (1.2 - 3.4 /CUMM) 1.2 Absolute Monocytes (0.10 - 0.60 /CUMM) 0.8 H Absolute Eosinophils (0.0 - 0.7 /CUMM) 0.4 Absolute Basophils (0.0 - 0.2 /CUMM) 0 PUBS MCHC (33.0 - 37.0 G/DL) Pending 32.3 L Assessment/Plan Assessment/Plan 71yo M POD#5 s/p diverting sigmoid colostomy and suprapubic tube placement. CBI dc'd and urethral zheng dc'd. OK to dc from urology standpoint per note. - continue diet - pain control - continue iv unasyn for osteo - colostomy teaching - sc heparin and ALPS for DVT PPx - dc planning for return to ECF - will d/w Core Measures/Miscellaneous Venous Thromboembolism VTE Risk Factors: Age > 40, Immobility, paresis VTE Contraindications: No Contraindications VTE Prophylaxis Ordered Inpt Mechanical (ALPS/TEDS) VTE Diagnosis: No VTE Type: NONE VTE Confirmed by (Test): NONE Beta Lisa Is Beta Lisa a Home Med? Yes If Yes, Was This Ordered Today? Yes Antibiotics Is Patient on Antibiotics? Yes If Yes: infection
[2016-11-11 10:25] LABS: ABSOLUTE BASOPHIL COUNT 0 /CUMM (0.0-0.2); ABSOLUTE EOSINOPHIL COUNT 0.5 /CUMM (0.0-0.7); ABSOLUTE GRANULOCYTE CT 7.4 /CUMM (1.4-6.5); ABSOLUTE LYMPH COUNT 1.1 /CUMM (1.2-3.4); ABSOLUTE MONOCYTE COUNT 0.9 /CUMM (0.10-0.60); BASOPHIL % 0.3 % (0.0-2.0); EOSINOPHIL % 5.4 % (0-5); GRANULOCYTE % 74.6 % (42.2-75.2); HEMATOCRIT 24.5 % (42-52); MEAN CORPUSCULAR HGB 27.8 PG (27.0-31.0); MEAN CORPUSCULAR HGB CONC 32.4 G/DL (33.0-37.0); MEAN CORPUSCULAR VOLUME 85.7 FL (80.0-94.0); MEAN PLATELET VOLUME 7.3 FL (7.4-10.4); PLATELET COUNT 434 /CUMM (130-400); RBC DISTRIBUTION WIDTH 18.4 % (11.5-14.5); RED BLOOD CELL CT 2.85 /CUMM (4.70-6.10)
[2016-11-11 13:20] VITALS: BP 134/60
== END 2016-11-11 14:17 | DRG 981 ==
LOC: ENRESERVTM → ENRESERVDT → ERH 17:43 → ENPENDDIS 21:28 → ERHI 21:28 → 2NA 21:28 → EDBEDREQ 10-31 08:10 → 2NA 10-31 12:07
PROVIDERS: Emergency Medicine; Internal Medicine; Nurse Practitioner; Physician Assistant; Physician Assistant Surgical; ADMIT Internal Medicine
PROC: 0D1N4Z4 Bypass Sigmoid Colon to Cutaneous, Percutaneous Endoscopic Approach (ICD-10-PCS; principal; 2016-11-06)
PROC: 0TBB8ZX Excision of Bladder, Via Natural or Artificial Opening Endoscopic, Diagnostic (ICD-10-PCS; 2016-11-06)
PROC: 0T9B30Z Drainage of Bladder with Drainage Device, Percutaneous Approach (ICD-10-PCS; 2016-11-06)
PROC: 0DBN4ZX Excision of Sigmoid Colon, Percutaneous Endoscopic Approach, Diagnostic (ICD-10-PCS; 2016-11-06)
DX: L89.154 Pressure ulcer of sacral region, stage 4 (principal); G82.20 Paraplegia, unspecified; E11.8 Type 2 diabetes mellitus with unspecified complications; N31.9 Neuromuscular dysfunction of bladder, unspecified; M86.60 Other chronic osteomyelitis, unspecified site; J44.9 Chronic obstructive pulmonary disease, unspecified; N39.498 Other specified urinary incontinence; R15.9 Full incontinence of feces; R31.9 Hematuria, unspecified; I10 Essential (primary) hypertension; I25.10 Atherosclerotic heart disease of native coronary artery without angina pectoris; E78.5 Hyperlipidemia, unspecified; Z87.440 Personal history of urinary (tract) infections
CPT/HCPCS: 2NAP; ERO; 36415; 81001; 82436; 86920; 87086; 88304; 88305; 93005; 93010; 93306; J0131; J0696; J1100; J1170; J1644; J2405; J2765; P9016

== ENCOUNTER 2016-11-29 17:23 | Inpatient (IN) | payer OTHER, MEDICARE ==
[~2016-11-29] VITALS: Ht 175.3 cm; Wt 88.0 kg
[~2016-11-29 17:23] MED LIST changes: +B-121000 MC3 PO; +FIBER500 MG PO; +UNASYN 3 GM VIAL3 GM IV
--- NOTE | 2016-11-29 17:45 | ED GENERAL ADULT ---
History of Present Illness General Chief Complaint: General Adult Stated Complaint: ?HIGH WBC Source: patient Exam Limitations: no limitations Vital Signs & Intake/Output Vital Signs & Intake/Output Vital Signs Date Time Temp Pulse Resp B/P Pulse O2 O2 Flow FiO2 Ox Delivery Rate 11/30 1516 98.1 101 20 130/62 98 11/30 1202 Room Air Room Air 11/30 0938 110/50 11/30 0627 99.7 85 20 110/50 96 Room Air 11/29 2259 94 Room Air 11/29 2145 97.4 99 20 120/64 94 11/29 2022 98.2 91 18 119/59 96 Room Air Room Air ED Intake and Output 11/30 0000 11/29 1200 Intake Total 240 Output Total 150 Balance 90 Intake, Oral 240 Number 1 Bowel Movements Output, Urine 150 Patient 182 lb Weight Allergies Coded Allergies: NO KNOWN ALLERGIES (10/18/16) Triage Note: 71 YEAR OLD MALE BIBA FROM [facility]. PER EMS PT WAS SENT IN FOR AN EVALUZTION OF INCREASED WBC COUNT. PT DENIES ANY SYMPTOMS AT THIS TIME, STATES "I FEEL FINE EXCEPT FOR A COUGH." PT ALERT AND ORIENTED X3, CLEAR SPEECH. AWAITING PROVIDER EVAL. Triage Nurses Notes Reviewed? yes Onset: Gradual Duration: day(s): (2) Timing: remote history Injury Environment: home Severity: moderate Severity Numbers: 6 Modifying Factors: Improves With: immobilization. HPI: Patient is a 71-year-old male with history of paraplegia, hyperlipidemia, sacral pressure ulcer presenting to the emergency department from long term via EMS with chief complaint of worsening shortness of breath, intermittently productive cough and low-grade fevers at the nursing facility 2 days. He reports that he is unable to bring anything up because of his paralysis. Patient has no history of supplemental oxygen use but reports that long term put him on oxygen today. They did blood work and told him that his white blood cell count was high. They sent him to the emergency department for evaluation. Patient denying any abdominal pain chest pain. Denies any confusion. Fever up to 100.3 at the long term 2 days ago. (TAMICA CHISHOLM) Reconcile Medications Acetaminophen 325 MG CAPSULE 2 CAP PO Q4H PRN PAIN/TEMP>/100 (Reported) Acetaminophen (Acephen) 650 MG SUPP.RECT 1 SUPP VA Q4H PRN PAIN/TEMP>/100 ( Reported) Allopurinol 100 MG TABLET 1 TAB PO DAILY GOUT (Reported) Amino Acids/Protein Hydrolys (Pro-Stat Profile Liquid) (Unknown Strength) LIQUID 30 ML PO 1600 SUPPLEMENT (Reported) Ascorbate Calcium (Vitamin C) 500 MG TABLET 1 TAB PO BID SUPPLEMENT (Reported ) Aspirin (Children's Aspirin) 81 MG TAB.CHEW 1 TAB PO DAILY HEART/BLOOD ( Reported) Atorvastatin Calcium (Lipitor) 10 MG TABLET 1 TAB PO 2000 CHOLESTEROL ( Reported) Benazepril HCl 5 MG TABLET 10 MG PO DAILY BP (Reported) Calcium Carbonate/Vitamin D3 (Os-Tyrese 500+D3 Caplet) 500 MG-200 TABLET 1 TAB PO BID SUPPLEMENT (Reported) Citalopram Hydrobromide (Citalopram HBr) 20 MG TABLET 1 TAB PO 1600 MENTAL HEALTH (Reported) Docusate Sodium (Stool Softener) 100 MG CAPSULE 1 CAP PO 1600 GI (Reported) Donepezil HCl (Aricept) 10 MG TABLET 1 TAB PO QHS MEMORY (Reported) Ergocalciferol (Vitamin D2) (Vitamin D2) 50,000 UNIT CAPSULE 1 CAP PO Q30D SUPPLEMENT (Reported) Insulin Detemir (Levemir) 100 UNIT/ML VIAL 20 UNITS SC QHS DM (Reported) Ipratropium/Albuterol Sulfate (Iprat-Albut 0.5-3(2.5) MG/3 Ml) 0.5 MG-3 MG (2.5 MG BASE)/3 ML AMPUL.NEB 1 VIAL INH TID RESPIRATORY (Reported) Levetiracetam (Keppra) 500 MG TABLET 1 TAB PO BID SEIZURE (Reported) Magnesium Hydroxide (Milk Of Magnesia) 400 MG/5 ML ORAL.SUSP 30 ML PO DAILY PRN CONSTIPATION (Reported) Memantine HCl (Namenda XR) 28 MG CAP.SPR.24 1 CAP PO 2000 MEMORY (Reported) Mirtazapine (Remeron) 15 MG TAB.RAPDIS 7.5 MG PO QHS MENTAL HEALTH (Reported) Mv-Mn/FA/Vit K1/Lycop/Lut/Zeax (Ocuvite Eye + Multi Tablet) (Unknown Strength) TABLET 1 TAB PO 1600 SUPPLEMENT (Reported) Na Phos,M-B/Na Phos,Di-Ba (Fleet Enema) 19 GRAM-7 GRAM/118 ML ENEMA 1 E RC DAILY PRN CONSTIPATION (Reported) Sennosides/Docusate Sodium (Senna Laxative Tablet) 8.6 MG-50 MG TABLET 2 TAB PO DAILY GI (Reported) Trazodone HCl 50 MG TABLET 0.5 MG PO Q12H PRN ANXIETY (Reported) (BARB GURROLA DO) Past History Travel History Traveled to [place] past 21 day No Medical History Any Pertinent Medical History? see below for history Neurological: PARAPLEGIA STATUS POST SPINAL SHOCK POSTOP EENT: NONE Cardiovascular: CAD, hypertension, hyperlipidemia, ABDOMINAL ANEURYSM Respiratory: asthma Gastrointestinal: GERD Renal: neurogenic bladder, UTI Musculoskeletal: decubitis ulcer (OSTEOMYELITIS) Psychiatric: anxiety, depression Endocrine: DIABETES TYPE 2 Cancer(s): prostate cancer History of MRSA: Yes History of VRE: No History of CDIFF: No Influenza Vaccine: 09/04/16 Surgical History Surgical History: AAA repair x2 once 2002, and 2013 Psychosocial History Who do you live with Paid Attentent Services at Home Nursing What is your primary language Estonian Tobacco Use: Never used Family History Family History, If Any: MOTHER FH: coronary artery disease FH: diabetes mellitus BROTHER FH: diabetes mellitus SISTER Hx Contributory? No (TAMICA CHISHOLM) Review of Systems Review of Systems Constitutional: Reports: fever. Comments Review of systems: See HPI, All other systems negative. Constitutional, no weight loss HEENT: No visual changes no sore throat Cardiovascular: No chest pain ,palpitation , orthopnea or ankle swelling Skin, no jaundice no rashes Respiratory: No sputum or hemoptysis GI: No nausea no vomiting : No dysuria No hematuria Muscle skeletal: no back pain, no neck pain, Neurologic: No new numbness no confusion Psych: No stress anxiety or depression,. Heme/endocrine: No bruising no bleeding no polyuria or polydipsia Immunology: No splenectomy or history of AIDS (TAMICA CHISHOLM) Physical Exam Physical Exam General Appearance: well developed/nourished, no apparent distress, alert, awake , comfortable Comments: Well-developed well-nourished person in no acute distress HEENT: . Pupils equally round and reactive to light and accommodation. Nose is atraumatic. External auditory canal and Tympanic membranes clear. Pharynx normal. No swelling or edema. Neck: Supple, no lymphadenopathy, normal range of motion without pain or tenderness Back: Nontender Cardiovascular: Regular rate and rhythms no murmurs rubs or gallops, normal JVP Respiratory: Chest nontender. No respiratory distress.breath sounds diminished on the right base, clear lung sounds on the left. Abdomen: Soft, nontender nondistended, no appreciable organomegaly. Normal bowel sounds. No ascites Extremity: No edema Neuro: Alert oriented x3 Skin: No appreciable rash on exposed skin, skin is warm and dry. Psych: Mood and affect is normal, memory and judgment is normal. Core Measures ACS in differential dx? Yes CVA/TIA Diagnosis: No Severe Sepsis Present: No Septic Shock Present: No (ANTON WATSON,TAMICA) Progress Differential Diagnoses I considered the following diagnoses in my evaluation of the patient: Pneumonia , bronchitis, worsening sacral wound cellulitis, sepsis Plan of Care: Orders Procedure Date/time Status CBC WITHOUT DIFFERENTIAL 12/01 06 Active BASIC ELECTROLYTES PLUS BUN&CR 12/01 06 Active Consistent Carbohydrate 2 11/30 B Active RT: Reevaluation 11/30 1201 Active RT: Evaluation 11/30 1201 Active CBC WITHOUT DIFFERENTIAL 11/30 06 Complete BASIC ELECTROLYTES PLUS BUN&CR 11/30 06 Complete THERAPIST ORDERS 11/30 UNK Complete Regular Diet 11/29 D Complete Skin/Pressure Ulcer Assess (Sk 11/29 2313 Active Wound Care/Dressing 11/29 2303 Active Drains/Tubes 11/29 230 Active Code Status 11/29 2221 Active FingerStick- Glucose 11/29 2218 Active Vital Signs 11/29 2144 Active Teach/Educate 11/29 2144 Active Nutritional Intake, Monitor 11/29 2144 Active Isolation 11/29 2144 Active Intake & Output 11/29 2144 Active Patient Care Conference 11/29 2144 Active Activity/Ambulation 11/29 2144 Active STREP PNEUMO URINARY ANTIGEN 11/29 2032 Complete TRC EVALUATION (GEN) 11/29 2031 Complete AEROSOL (GEN) 11/29 2031 Active RAPID VIRAL INFLUENZA A 11/29 2031 Complete CULTURE,URINE 11/29 2031 Active Pathway - chart 11/29 2027 Active House Staff 11/29 2027 Active Patient Data 11/29 2027 Active Code Status 11/29 2027 Complete Saline Lock 11/29 1913 Active Admit to inpatient 11/29 1913 Active Vital Signs 11/29 1913 Active Activity/Ambulation 11/29 1913 Active Code Status 11/29 1913 Complete Patient Data 11/29 1910 Active Intake & Output 11/29 1729 Active VTE Mechanical Prophylaxis 11/29 UNK Active Current Medications Sig/Mey Start time Last Medication Dose Stop Time Status Admin Mirtazapine 7.5 MG AT BEDTIME NEED.. 11/30 2199 AC (Remeron) Atorvastatin Calcium 10 MG 11/30 AC (Lipitor) Sodium Hypochlorite 1 HILARIA BID 11/30 1000 AC Insulin Aspart 0 TIDAC 11/30 08 AC (NovoLOG) Ipratropium [place] 2.5 ML Q6-PRN PRN 11/29 2244 CAN (Atrovent) Acetaminophen 650 MG Q6P PRN 11/29 2029 AC (Tylenol) Ibuprofen 600 MG Q6P PRN 11/29 2029 AC (Motrin) Oxycodone HCl 10 MG Q6P PRN 11/29 2029 AC (Roxicodone) Laboratory Tests 11/30/16 0605: Anion Gap 11, Estimated GFR > 60, BUN/Creatinine Ratio 24.3, CBC w Diff NO MAN DIFF REQ, RBC 3.15 L, MCV 83.2, MCH 26.7 L, RDW 19.1 H, MPV 7.7, Gran % 82.4 H, Lymphocytes % 5.9 L, Monocytes % 10.4 H, Eosinophils % 1.1, Basophils % 0.2 , Absolute Granulocytes 16.0 H, Absolute Lymphocytes 1.2, Absolute Monocytes 2.0 H, Absolute Eosinophils 0.2, Absolute Basophils 0, PUBS MCHC 32.1 L 11/29/162036: Lactic Acid 2.1 11/29/162004: Urine Color YEL, Urine Clarity HAZY H, Urine pH 6.0, Ur Specific [place] 1.010, Urine Protein 30 H, Urine Ketones NEG, Urine Nitrite POS H, Urine Bilirubin NEG, Urine Urobilinogen 0.2, Ur Leukocyte Esterase MOD H, Ur Microscopic SEDIMENT EXAMINED, Urine RBC 1-3, Urine WBC 50-75 H, Granular Casts 1-3 H, Urine Hemoglobin TRACE-INTACT H, Urine Glucose NEG Microbiology 11/29 2124 URINE ROUT: Streptococcus pneumoniae Antigen (M - COMP 11/29 2124 URINE ROUT: Urine Culture - RES GRAM NEGATIVE RODS 11/29 2030 LOWER RESP: Respiratory Culture - CAN Cancelled: NO SAMPLE COLLECTED FOR MICRO DEPT. 11/29 2030 LOWER RESP: Gram Stain - CAN Cancelled: NO SAMPLE COLLECTED FOR MICRO DEPT. Diagnostic Imaging: Viewed by Me: Radiology Read. Discussed w/RAD: Radiology Read. Radiology Impression: PATIENT: YOLANDA SUMMERS PRESENT AGE: 71 PATIENT ACCOUNT NO: [id number] : 46 LOCATION: [facility] ORDERING PHYSICIAN: TAMICA WATSON SERVICE DATE: 11/29/16 EXAM TYPE: RAD - XRY-CHEST XRAY, PA AND LATERAL EXAMINATION: XR CHEST CLINICAL INFORMATION: Fever and leukocytosis COMPARISON: Chest x-ray most recent prior dated 10/31/2016 TECHNIQUE: 2 views of the chest were obtained. FINDINGS: Stable cardiomegaly. Stable elevation of the left hemidiaphragm with streaky atelectatic changes noted again in bilateral bases. Opacity in the posterior aspect left lung on the lateral radiograph represents an age indeterminate finding. Evolving infiltrate cannot be excluded. It is less well visualized on the frontal radiograph. Hazy left perihilar opacity also seen on the prior study. Reevaluation after treatment recommended. IMPRESSION: Opacity in the posterior left lung may represent an evolving airspace disease or loculated fluid. Repeat chest x-ray after treatment recommended. DICTATED BY: JOSIE BLANC MD DATE/TIME DICTATED:11/29/161828 AMMONIA TECHNICIAN:JANNA DATE/TIME TRANSCRIBED:11/29/161828 CONFIDENTIAL, DO NOT COPY WITHOUT APPROPRIATE AUTHORIZATION. <Electronically signed in Other Vendor System> SIGNED BY: JOSIE BLANC MD 11/29/161838 Initial ED EKG: sinus rhythm at 85 bpm, probable left atrial abnormality Prior EKG: unchanged Comments: 11/29/2016 5:44:22 PM on arrival patient is afebrile in no acute distress he does have diminished lung sounds on the left. Patient has elevating white blood cell count with recent hospital admission and long term admission. Considering pneumonia. CBC, CMP, blood cultures, chest x-ray ordered. Patient in twill be on the engine monitor in the emergency department. 11/29/2016 6:31:12 PM patient informed of x-ray results. Patient will be admitted for pneumonia. IV vancomycin and Fortaz started. Spoke with Dr. Saleh, he agrees to admission. (TAMICA CHISHOLM) Departure Departure Time of Disposition: 1900 Disposition: HOME OR SELF CARE Condition: Stable Clinical Impression Primary Impression: Pneumonia Qualifiers: Pneumonia type: due to unspecified organism Laterality: left Lung location: lower lobe of lung Qualified Code: J18.1 - Lobar pneumonia, unspecified organism Referrals: SLIM COLE MD (PCP/Family) Departure Forms: Customer Survey General Discharge Information Admission Note Spoke With: JEANNIE SALEH MD Documentation of Exam: Documentation of any treatments & extenuating circumstances including Concerns Regarding Discharge (functional status, medication knowledge or non-compliance, living conditions, etc.) that warrant an admission rather than observation: Patient requiring IV antibiotics, pulmonology consultation, blood cultures to return, rule out sepsis, discharge at this time would be medically harmful. (TAMICA CHISHOLM) PA/MEDICAL DIAGNOSTIC RADIOGRAPHER Co-Sign Statement Statement: ED Attending supervision documentation- [x] I saw and evaluated the patient. I have also reviewed all the pertinent lab results and diagnostic results. I agree with the findings and the plan of care as documented in the PA's/MEDICAL DIAGNOSTIC RADIOGRAPHER's documentation. [x] I have reviewed the ED Record and agree with the PA's/MEDICAL DIAGNOSTIC RADIOGRAPHER's documentation. [] Additions or exceptions (if any) to the PAs/MEDICAL DIAGNOSTIC RADIOGRAPHER's note and plan are summarized below: [] (BARB GURROLA DO) Critical Care Note Critical Care Note Critical Care Time: non-applicable (TAMICA CHISHOLM)
[2016-11-29 18:06] LABS: ABSOLUTE BASOPHIL COUNT 0.1 /CUMM (0.0-0.2); ABSOLUTE EOSINOPHIL COUNT 0.1 /CUMM (0.0-0.7); ABSOLUTE GRANULOCYTE CT 19.7 /CUMM (1.4-6.5); ABSOLUTE LYMPH COUNT 0.8 /CUMM (1.2-3.4); BASOPHIL % 0.2 % (0.0-2.0); EOSINOPHIL % 0.4 % (0-5); GRANULOCYTE % 86.8 % (42.2-75.2); HEMATOCRIT 27.3 % (42-52); MEAN CORPUSCULAR HGB 26.7 PG (27.0-31.0); MEAN CORPUSCULAR HGB CONC 32.3 G/DL (33.0-37.0); MEAN CORPUSCULAR VOLUME 82.6 FL (80.0-94.0); MEAN PLATELET VOLUME 7.3 FL (7.4-10.4); PLATELET COUNT 606 /CUMM (130-400); RBC DISTRIBUTION WIDTH 19.3 % (11.5-14.5); RED BLOOD CELL CT 3.31 /CUMM (4.70-6.10); WHITE BLOOD CELL COUNT 22.7 /CUMM (4.8-10.8)
[2016-11-29] MEDS ORDERED: PRO-STAT PROFI887 ML PO (18:13)
[2016-11-29] MEDS ORDERED: SENNA LAXATIVE1 EACH PO (18:14)
[2016-11-29] MEDS ORDERED: BENAZEPRIL HCL5 MG PO (18:14)
[2016-11-29] MEDS ORDERED: ALLOPURINOL100 M1 PO (18:15)
[2016-11-29] MEDS ORDERED: OS-CAL 500+D31 EAC1 PO (18:20)
[2016-11-29] MEDS ORDERED: VITAMIN C500 M6 PO (18:20)
[2016-11-29] MEDS ORDERED: VITAMIN D250000 UNIT PO (18:22)
[2016-11-29] MEDS ORDERED: IPRAT-ALBUT 0.5-3 ML INH (18:22)
[2016-11-29] MEDS ORDERED: KEPPRA500 M1 PO (18:23)
[2016-11-29] MEDS ORDERED: OCUVITE EYE +1 EACH PO (18:23)
[2016-11-29] MEDS ORDERED: CITALOPRAM HBR20 MG PO (18:24)
[2016-11-29] MEDS ORDERED: STOOL SOFTENER100 M3 PO (18:24)
[2016-11-29] MEDS ORDERED: ARICEPT10 M1 PO (18:25)
[2016-11-29] MEDS ORDERED: NAMENDA XR28 M1 PO (18:25)
[2016-11-29] MEDS ORDERED: LEVEMIR100 UNIT/1 SC (18:26)
[2016-11-29] MEDS ORDERED: REMERON15 M3 PO (18:27)
[2016-11-29] MEDS ORDERED: LIPITOR10 M1 PO (18:27)
[2016-11-29] MEDS ORDERED: FLEET ENEMA133 ML RC (18:29)
[2016-11-29] MEDS ORDERED: TRAZODONE HCL50 M1 PO (18:30)
--- NOTE | 2016-11-29 18:39 | RADIOLOGY REPORT ---
EXAMINATION: XR CHEST CLINICAL INFORMATION: Fever and leukocytosis COMPARISON: Chest x-ray most recent prior dated 10/31/2016 TECHNIQUE: 2 views of the chest were obtained. FINDINGS: Stable cardiomegaly. Stable elevation of the left hemidiaphragm with streaky atelectatic changes noted again in bilateral bases. Opacity in the posterior aspect left lung on the lateral radiograph represents an age indeterminate finding. Evolving infiltrate cannot be excluded. It is less well visualized on the frontal radiograph. Hazy left perihilar opacity also seen on the prior study. Reevaluation after treatment recommended. IMPRESSION: Opacity in the posterior left lung may represent an evolving airspace disease or loculated fluid. Repeat chest x-ray after treatment recommended.
--- NOTE | 2016-11-29 20:14 | History & Physical ---
NINFA MULLIGAN,LEVAR 11/29/16 2013: General Information and HPI MD Statement: I have seen and personally examined YOLANDA SUMMERS and documented this H&P. The patient is a 71 year old M who was brought in by ambulance from extended care facility for leukocytosis and cough. 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 According to patient, he was in his usual state of health until 3 weeks ago, when he started having dry cough, which has remained almost the same in the past 3 weeks. It is associated with low-grade fever max 100.3, mild shortness of breath even at rest, and orthopnea is present. He normally does not require oxygen at his extended care facility ([facility]), but required one today. His regular blood test also came back with increased acoustic count, and with all this, he was referred to the emergency department from his F. He denied any chills, chest pain, shortness of breath, headache, confusion, falls, changes in his bowel or bladder habit, wound, any sick contacts, or recent travel. Of note, he is paraplegic from chest down following spinal shock during AAA repair in 2013. Allergies/Medications Allergies: Coded Allergies: NO KNOWN ALLERGIES (10/18/16) Home Med list Acetaminophen 325 MG CAPSULE 2 CAP PO Q4H PRN PAIN/TEMP>/100 (Reported) Acetaminophen (Acephen) 650 MG SUPP.RECT 1 SUPP MD Q4H PRN PAIN/TEMP>/100 ( Reported) Allopurinol 100 MG TABLET 1 TAB PO DAILY GOUT (Reported) Amino Acids/Protein Hydrolys (Pro-Stat Profile Liquid) (Unknown Strength) LIQUID 30 ML PO 1600 SUPPLEMENT (Reported) Ascorbate Calcium (Vitamin C) 500 MG TABLET 1 TAB PO BID SUPPLEMENT (Reported ) Aspirin (Children's Aspirin) 81 MG TAB.CHEW 1 TAB PO DAILY HEART/BLOOD ( Reported) Atorvastatin Calcium (Lipitor) 10 MG TABLET 1 TAB PO 2000 CHOLESTEROL ( Reported) Benazepril HCl 5 MG TABLET 10 MG PO DAILY BP (Reported) Calcium Carbonate/Vitamin D3 (Os-Tyrese 500+D3 Caplet) 500 MG-200 TABLET 1 TAB PO BID SUPPLEMENT (Reported) Citalopram Hydrobromide (Citalopram HBr) 20 MG TABLET 1 TAB PO 1600 MENTAL HEALTH (Reported) Docusate Sodium (Stool Softener) 100 MG CAPSULE 1 CAP PO 1600 GI (Reported) Donepezil HCl (Aricept) 10 MG TABLET 1 TAB PO QHS MEMORY (Reported) Ergocalciferol (Vitamin D2) (Vitamin D2) 50,000 UNIT CAPSULE 1 CAP PO Q30D SUPPLEMENT (Reported) Insulin Detemir (Levemir) 100 UNIT/ML VIAL 20 UNITS SC QHS DM (Reported) Ipratropium/Albuterol Sulfate (Iprat-Albut 0.5-3(2.5) MG/3 Ml) 0.5 MG-3 MG (2.5 MG BASE)/3 ML AMPUL.NEB 1 VIAL INH TID RESPIRATORY (Reported) Levetiracetam (Keppra) 500 MG TABLET 1 TAB PO BID SEIZURE (Reported) Magnesium Hydroxide (Milk Of Magnesia) 400 MG/5 ML ORAL.SUSP 30 ML PO DAILY PRN CONSTIPATION (Reported) Memantine HCl (Namenda XR) 28 MG CAP.SPR.24 1 CAP PO 2000 MEMORY (Reported) Mirtazapine (Remeron) 15 MG TAB.RAPDIS 7.5 MG PO QHS MENTAL HEALTH (Reported) Mv-Mn/FA/Vit K1/Lycop/Lut/Zeax (Ocuvite Eye + Multi Tablet) (Unknown Strength) TABLET 1 TAB PO 1600 SUPPLEMENT (Reported) Na Phos,M-B/Na Phos,Di-Ba (Fleet Enema) 19 GRAM-7 GRAM/118 ML ENEMA 1 E RC DAILY PRN CONSTIPATION (Reported) Sennosides/Docusate Sodium (Senna Laxative Tablet) 8.6 MG-50 MG TABLET 2 TAB PO DAILY GI (Reported) Trazodone HCl 50 MG TABLET 0.5 MG PO Q12H PRN ANXIETY (Reported) Past History Travel History Traveled to [place] past 21 day No Medical History Neurological: PARAPLEGIA STATUS POST SPINAL SHOCK POSTOP EENT: NONE Cardiovascular: CAD, hypertension, hyperlipidemia, ABDOMINAL ANEURYSM Respiratory: asthma Gastrointestinal: GERD Renal: neurogenic bladder, UTI Musculoskeletal: decubitis ulcer (OSTEOMYELITIS) Psychiatric: anxiety, depression Endocrine: DIABETES TYPE 2 Cancer(s): prostate cancer History of MRSA: Yes History of VRE: No History of CDIFF: No Influenza Vaccine: 09/04/16 Surgical History Surgical History: AAA repair x2 once 2002, and 2013 Past Family/Social History Family History Relations & Conditions if any MOTHER FH: coronary artery disease FH: diabetes mellitus BROTHER FH: diabetes mellitus SISTER Psychosocial History Where do you live? Extended Care Facility ([facility]) Services at Home: Nursing Primary Language: Guyanese Smoking Status: Never Smoked ETOH Use: denies use Illicit Drug Use: denies illicit drug use Functional Ability ADLs Independent: eating. Needs Assist: dressing, toileting, bathing. Ambulation: non-ambulatory IADLs Needs Assist: shopping, housework, finances, food prep, telephone, transportation, medication admin. Review of Systems Review of Systems Constitutional: Reports: see HPI, fever (low grade). Denies: chills, diaphoresis, malaise, weakness. EENTM: Reports: no symptoms. Cardiovascular: Reports: no symptoms. Respiratory: Reports: see HPI, cough (dry), orthopnea, short of breath. Denies: hemoptysis, sputum production, stridor, wheezing. GI: Reports: no symptoms. Genitourinary: Reports: no symptoms. Musculoskeletal: Reports: no symptoms. Skin: Reports: no symptoms. Neurological/Psychological: Reports: see HPI, numbness (paraplegic from chest down). Hematologic/Endocrine: Reports: no symptoms. All Other Systems: Reviewed and Negative Exam & Diagnostic Data Last 24 Hrs of Vital Signs/I&O Vital Signs Date Time Temp Pulse Resp B/P Pulse O2 O2 Flow FiO2 Ox Delivery Rate 11/29 2259 94 Room Air 11/29 2145 97.4 99 20 120/64 94 11/29 2022 98.2 91 18 119/59 96 Room Air Room Air 11/29 1723 99.9 103 18 127/57 95 Nasal 2.0L Cannula Intake & Output 11/30 0800 11/30 0000 11/29 1600 Intake Total 240 Output Total 150 Balance 90 Intake, Oral 240 Number 1 Bowel Movements Output, Urine 150 Patient 82.554 kg Weight Physical Exam General Appearance Alert, Oriented X3, Cooperative, No Acute Distress Last 24 Hrs of Labs/Perfecto: Laboratory Tests 11/29/162036: Lactic Acid 2.1 11/29/162004: Urine Color YEL, Urine Clarity HAZY H, Urine pH 6.0, Ur Specific [place] 1.010, Urine Protein 30 H, Urine Ketones NEG, Urine Nitrite POS H, Urine Bilirubin NEG, Urine Urobilinogen 0.2, Ur Leukocyte Esterase MOD H, Ur Microscopic SEDIMENT EXAMINED, Urine RBC 1-3, Urine WBC 50-75 H, Granular Casts 1-3 H, Urine Hemoglobin TRACE-INTACT H, Urine Glucose NEG 11/29/161751: Anion Gap 14, Estimated GFR > 60, BUN/Creatinine Ratio 24.3, Glucose 155 H, Lactic Acid 1.8, Calcium 9.2, Total Bilirubin 0.5, AST 18, ALT 26, Alkaline Phosphatase 149 H, Troponin I < 0.01, Total Protein 7.4, Albumin 3.1 L, Globulin 4.3 H, Albumin/Globulin Ratio 0.7 L, CBC w Diff MAN DIFF ORDERED, RBC 3.31 L, MCV 82.6, MCH 26.7 L, RDW 19.3 H, MPV 7.3 L, Gran % 86.8 H, Lymphocytes % 3.6 L, Monocytes % 9.0, Eosinophils % 0.4, Basophils % 0.2, Absolute Granulocytes 19.7 H, Absolute Lymphocytes 0.8 L, Absolute Monocytes 2.0 H, Absolute Eosinophils 0.1, Absolute Basophils 0.1, Platelet Estimate INCREASED, Polychromasia 1+, Poikilocytosis 1+, Anisocytosis 1+, Stomatocytes FEW, PUBS MCHC 32.3 L Microbiology 11/29 2124 URINE ROUT: Streptococcus pneumoniae Antigen (M - COMP 11/29 2124 URINE ROUT: Urine Culture - RECD 11/29 2030 LOWER RESP: Respiratory Culture - COLB 11/29 2030 LOWER RESP: Gram Stain - COLB 11/29 1757 BLOOD: Blood Culture - RECD 11/29 1751 BLOOD: Blood Culture - RECD Diagnostic Data EKG Results Normal sinus rhythm, rate 85, no changes compared to prior EKG CXR Results Opacity in the posterior left lung may represent an evolving airspace disease or loculated fluid. Repeat chest x-ray after treatment recommended. DICTATED BY: JOSIE BLANC MD DATE/TIME DICTATED:11/29/161828 MELANGEUR OPERATOR:JANNA DATE/TIME TRANSCRIBED:11/29/161828 Other Results Physical examnination: General: well nourished patient not in distress Head: Normocephalic, atraumatic Eyes: Pupils normal in size, regular, reacting to light and accommodation, EOM normal Ears: B/l normal on inspection Nose: Normal on inspection Throat/mouth: Moist mucosa Neck: Supple, full range of motion, no thyromegaly Heart: Regular rate, regular rhythm Lung: Normal breath sound bilaterally Added sound not heard Abd: Soft, non-tender, no distention appreciated, has no sensation chest down, suprapubic catheter in situ, no surrounding erythema or discharge Back: Normal range of motion, dressing placed over left side of his buttock with wound vac. Not opened during examination. No soakage or leakage. 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 At emergency department, his blood pressure was 127/57, pulse 103, temperature 99.9, saturation 95% with 2 L/m oxygen via nasal cannula, although when examined , he was saturating well above 92% on room air. His lab was significant for leukocytosis 22.7 an increase from 18 on 11/26/2016, his usual for leukocytosis at 606, H&H 8.8/27.3, sodium 132, potassium 4.7, BUN 17, creatinine 0.7 and sugar at 155. Lactic acid 1.8. Chest x-ray is suggestive of left-sided airspace disease but suggest a repeat study later on. Patient is currently being admitted in the general medical floor for the management of following issues: #Suspected pneumonia, cannot rule out Gram-negative/MRSA right now Patient has low-grade fever, cough, mild shortness of breath, leukocytosis, and a chest x-ray suggestive of airspace disease over the left side. There is suggestive of pneumonia. However, the patient does not have any sputum production, does not have chest pain, and is not in respiratory distress. So there might be other reasons, including infection of his chronic decubitus ulcer , for leukocytosis and his presentation. -Patient received ceftazidime and vancomycin in the emergency department. -Currently resuming IV antibiotics for the treatment of healthcare acquired pneumonia with vancomycin and Ceftazidime. -Total respiratory care and nebulizations as necessary -Guaifenesin oral for cough -Follow blood cultures, no respiratory cultures, and send wound cultures if necessary in the morning #Chronic nonhealing decubitus ulcer in sacral region -Wound care consult in the morning -If necessary, wound culture can be sent #Continue home medications for hypertension with lisinopril 10 mg daily, for hyperlipidemia atorvastatin 10 mg daily #Diabetes mellitus -Patient placed on diabetic diet, Accu-Cheks 3 times a day and at bedtime, and insulin NovoLog sliding scale for now. #Continue home medication for depression and anxiety. 20 mg daily, #Continue home medication of donepezil 10 mg daily, and memantine for memory. #Continue home medication for insomnia. Trazodone 25 mg twice a day (dose of trazodone might need rechecking), and mirtazapine 15 mg for sleep. #Continue levetiracetam 500 mg twice a day for seizure prophylaxis #Continue allopurinol 100 mg daily for gout #Continue home medications for constipation #Diet: Consistent provided to, diabetic diet #DVT prophylaxis with Lovenox #CODE STATUS: DNR/DNI As Ranked By This Provider Problem List: 1. Pneumonia Qualifiers Pneumonia type: due to unspecified organism Laterality: left Lung location: lower lobe of lung Qualified Code: J18.1 - Lobar pneumonia, unspecified organism 2. Hypertension 3. Hyperlipidemia 4. S/P CABG (coronary artery bypass graft) 5. S/P AAA (abdominal aortic aneurysm) repair 6. Paraplegia 7. Osteomyelitis 8. Chronic indwelling Boston catheter 9. Decubitus ulcer 10. Diabetes Core Measures/Miscellaneous Acute Coronary Syndrome ACS Diagnosis: No Cerebrovascular Accident CVA/TIA Diagnosis: No Congestive Heart Failure CHF Diagnosis: No Venous Thromboembolism VTE Risk Factors: Age > 40, Immobility, paresis VTE Prophylaxis [facility]dered Inpt: [facility] d/t: No contraindications No VTE Pharm Prophylaxis d/t: No contraindications VTE Diagnosis: No VTE Type: NONE VTE Confirmed by (Test): NONE Severe Sepsis Severe Sepsis Present: No Septic Shock Septic Shock Present: No Miscellaneous Documentation Attending Case Discussed With: JEANNIE ANN MD Primary Care Physician: SLIM COLE MD Patient sees these Specialists Internal Medicine Level of Patient Care: General Medicine NIK DUTTA 11/29/162024: Resident Review Statement Resident Statement: examined this patient, discussed with corporate strategy intern, agreed with corporate strategy intern Other Findings: Patient is 71-year-old gentleman with past medical history significant for plegia, status post indwelling suprapubic catheter, nonhealing sacral decubitus ulcer and osteomyelitis, colectomy for fecal incontinence, hypertension, diabetes mellitus, dyslipidemia, coronary artery disease, GERD, anxiety and depression was brought in from extended care facility when found to have elevated leukocytosis, shortness of breath and cough for a few days. Patient mentioned that he had cough but was not able to bring up any phlegm due to his paralysis and had low-grade fever along with worsening shortness of breath. He denied chest pain, palpitations, dizziness. Denied any dysphagia, choking on food. Labs on admission were WBC count 22.7, hemoglobin 8.8, hematocrit 27.3, platelet count 606 Sodium 132, potassium 4.7, chloride 94, BUNs 17, creatinine 0.7, As x-ray showed opacity in posterior left lung most likely due to pneumonia Physical examination Alert and oriented 3 And atraumatic Neck supple Chest slight bilateral repetitions Abdomen soft with suprapubic catheter in place and the ostomy bag with no erythema around the area as Skin stage IV decubitus ulcer covered with dressing at coccyx region with wound VAC in place Extremities showed no cyanosis or edema Assessment and plan Patient is 71-year-old gentleman with past medical history significant for plegia, status post indwelling suprapubic catheter, nonhealing sacral decubitus ulcer and osteomyelitis, colectomy for fecal incontinence, hypertension, diabetes mellitus, dyslipidemia, coronary artery disease, GERD, anxiety and depression was brought in from extended care facility when found to have elevated leukocytosis, shortness of breath and cough for a few days. Problem list 1. Left lobe pneumonia most likely health care associated pneumonia 2. History of paraplegia after spinal shock 3. History of hypertension and hyperlipidemia 4. History of CAD 5. History of diabetes mellitus 6. History of anxiety and depression 7. Stage IV decubitus ulcer with wound VAC 8. Status post suprapubic catheter placement due to neurogenic bladder 9. Status post colectomy due to fecal incontinence We will admit patient on general medical floor Vital signs every shift We will trend WBC count We will start patient on CeFtaz and vancomycin for healthcare associated pneumonia Accu-Cheks with NovoLog coverage according to sliding scale We will request consultation in a.m. We will continue all his home medications Diabetic diet Pharmacological DVT prophylaxis Patient is DNI DNR SETH MULLIGAN,[facility] 11/30/16 0941: Attending MD Review Statement Attending Statement Attending MD Statement: examined this patient, discuss w/resident/PA/CAKE MAKER, agreed w/resident/PA/CAKE MAKER, reviewed EMR data (avail)
[2016-11-29 21:45] VITALS: BP 120/64
[2016-11-30 06:27] VITALS: BP 110/50
--- NOTE | 2016-11-30 07:26 | PN- Housestaff ---
Subjective Follow-up For: Pneumonia (HCAP) Stage 4 decubitus ulcer Suprapubic catheter Subjective: Patient seen and examined at bedside this AM. He remains lethargic and reports cough with fevers. Review of Systems Constitutional: Reports: fever, malaise. Denies: chills. EENTM: Reports: nasal congestion. Denies: blurred vision. Cardiovascular: Denies: chest pain, palpitations. Respiratory: Reports: cough, short of breath. Gastrointestinal: Denies: abdominal pain. Genitourinary: Denies: hematuria. Musculoskeletal: Denies: back pain. Skin: Denies: lesions. Objective Last 24 Hrs of Vital Signs/I&O Vital Signs Date Time Temp Pulse Resp B/P Pulse O2 O2 Flow FiO2 Ox Delivery Rate 11/30 1202 Room Air Room Air 11/30 0938 110/50 11/30 0627 99.7 85 20 110/50 96 Room Air 11/29 2259 94 Room Air 11/29 2145 97.4 99 20 120/64 94 11/29 202 98.2 91 18 119/59 96 Room Air Room Air 11/29 1723 99.9 103 18 127/57 95 Nasal 2.0L Cannula Intake & Output 11/30 1600 11/30 0800 11/30 0000 Intake Total 240 240 Output Total 350 150 Balance -110 90 Intake, Oral 240 240 Number 1 Bowel Movements Output, Urine 350 150 Patient 182 lb Weight Physical Exam General Appearance: Alert, Cooperative, No Acute Distress Other Physical Findings: Head: Normocephalic, atraumatic Eyes: Pupils normal in size, regular, reacting to light and accommodation, EOM normal Ears: B/l normal on inspection Nose: Normal on inspection Throat/mouth: Moist mucosa Neck: Supple, full range of motion, no thyromegaly Heart: Regular rate, regular rhythm Lung: Normal breath sound bilaterally Abd: Soft, non-tender, no distention appreciated, has no sensation chest down, suprapubic catheter in situ, no surrounding erythema or discharge Back: Normal range of motion, Extremities: Normal knee exam bilaterally, no pedal edema. Neurologic: Alert, oriented x3, Cranial exam grossly intact, patient is paraplegic and has no sensation chest down Skin: Sacral wound 10 x 10 cm with large area of exposed bone. Rectal ulcer measuring 5 x 5 cm undermined. Both present on admission. Current Medications: Current Medications Sig/Mey Start time Last Medication Dose Route Stop Time Status Admin Acetaminophen 650 MG Q6P PRN 11/29 2030 AC PO Albuterol Sulfate 3 ML TID 11/30 1600 AC 11/30 INH 1217 Allopurinol 100 MG DAILY 11/30 1000 AC 11/30 PO 0938 Atorvastatin Calcium 10 MG 2000 11/30 2000 AC PO Ceftazidime 1,000 MG Q8H 11/30 0400 AC 11/30 IV 1330 Ceftazidime 0 .STK-MED ONE 11/29 1859 DC .ROUTE Ceftazidime 1,000 MG ONCE ONE 11/29 1845 DC 11/29 IV 11/29 1846 1956 Citalopram 20 MG 1600 11/30 1600 AC Hydrobromide PO Donepezil HCl 10 MG DAILY 11/30 1000 AC 11/30 PO 0938 Enoxaparin Sodium 40 MG 2200 11/29 2200 AC 11/30 SC 0122 Guaifenesin 10 ML .STK-MED ONE 11/30 0008 DC PO 11/30 0009 Guaifenesin 10 ML Q6P PRN 11/29 2345 AC 11/30 PO 0031 Ibuprofen 600 MG Q6P PRN 11/29 2030 AC PO Insulin Aspart 0 TIDAC 11/30 0800 AC SC Ipratropium [place] 2.5 ML TID 11/30 1600 AC 11/30 INH 1217 Ipratropium [place] 2.5 ML Q6-PRN PRN 11/29 2245 CAN INH Levetiracetam 500 MG BID 11/29 2241 AC 11/30 PO 0938 Lisinopril 10 MG DAILY 11/30 1000 AC 11/30 PO 0938 Memantine 10 MG BID 11/30 1000 AC 11/30 PO 0938 Mirtazapine 7.5 MG AT BEDTIME NEED.. 11/30 2200 AC PO Oxycodone HCl 10 MG Q6P PRN 11/29 2030 AC PO Patient Medication 1 ED .STK-MED ONE 11/30 1331 DC Teaching ED 11/30 1332 Senna/Docusate Sodium 2 TAB DAILY 11/30 1000 AC 11/30 PO 0938 Sodium Hypochlorite 1 HILARIA BID 11/30 1000 AC TOP Trazodone HCl 25 MG Q12P PRN 11/29 2245 AC 11/30 PO 0121 Vancomycin HCl 1,250 MG BID 11/30 1000 AC 11/30 Dextrose/Water 250 ML IV 0938 Vancomycin HCl 0 .STK-MED ONE 11/29 1859 DC .ROUTE Vancomycin HCl 1,000 MG ONCE ONE 11/29 1844 DC 11/29 Dextrose/Water 250 ML IV 11/29 Last 24 Hrs of Lab/Perfecto Results Last 24 Hrs of Labs/Mics: Laboratory Tests 11/30/16 0605: Anion Gap 11, Estimated GFR > 60, BUN/Creatinine Ratio 24.3, CBC w Diff NO MAN DIFF REQ, RBC 3.15 L, MCV 83.2, MCH 26.7 L, RDW 19.1 H, MPV 7.7, Gran % 82.4 H, Lymphocytes % 5.9 L, Monocytes % 10.4 H, Eosinophils % 1.1, Basophils % 0.2 , Absolute Granulocytes 16.0 H, Absolute Lymphocytes 1.2, Absolute Monocytes 2.0 H, Absolute Eosinophils 0.2, Absolute Basophils 0, PUBS MCHC 32.1 L 11/29/162036: Lactic Acid 2.1 11/29/162004: Urine Color YEL, Urine Clarity HAZY H, Urine pH 6.0, Ur Specific [place] 1.010, Urine Protein 30 H, Urine Ketones NEG, Urine Nitrite POS H, Urine Bilirubin NEG, Urine Urobilinogen 0.2, Ur Leukocyte Esterase MOD H, Ur Microscopic SEDIMENT EXAMINED, Urine RBC 1-3, Urine WBC 50-75 H, Granular Casts 1-3 H, Urine Hemoglobin TRACE-INTACT H, Urine Glucose NEG 11/29/16 1752: Anion Gap 14, Estimated GFR > 60, BUN/Creatinine Ratio 24.3, Glucose 155 H, Lactic Acid 1.8, Calcium 9.2, Total Bilirubin 0.5, AST 18, ALT 26, Alkaline Phosphatase 149 H, Troponin I < 0.01, Total Protein 7.4, Albumin 3.1 L, Globulin 4.3 H, Albumin/Globulin Ratio 0.7 L, CBC w Diff MAN DIFF ORDERED, RBC 3.31 L, MCV 82.6, MCH 26.7 L, RDW 19.3 H, MPV 7.3 L, Gran % 86.8 H, Lymphocytes % 3.6 L, Monocytes % 9.0, Eosinophils % 0.4, Basophils % 0.2, Absolute Granulocytes 19.7 H, Absolute Lymphocytes 0.8 L, Absolute Monocytes 2.0 H, Absolute Eosinophils 0.1, Absolute Basophils 0.1, Platelet Estimate INCREASED, Polychromasia 1+, Poikilocytosis 1+, Anisocytosis 1+, Stomatocytes FEW, PUBS MCHC 32.3 L Microbiology 11/29 2124 URINE ROUT: Streptococcus pneumoniae Antigen (M - COMP 11/29 2124 URINE ROUT: Urine Culture - RES GRAM NEGATIVE RODS 11/29 2030 LOWER RESP: Respiratory Culture - CAN Cancelled: NO SAMPLE COLLECTED FOR MICRO DEPT. 11/29 2030 LOWER RESP: Gram Stain - CAN Cancelled: NO SAMPLE COLLECTED FOR MICRO DEPT. 11/29 1757 BLOOD: Blood Culture - RES 11/29 1751 BLOOD: Blood Culture - RES GRAM POSITIVE COCCI Orders Miscellaneous Findings: EXAMINATION: CT CHEST WITHOUT CONTRAST CLINICAL INFORMATION: 71-year-old male with cough, fever and lethargy. Evaluate for pneumonia. History of descending thoracic aorta aneurysm repair. COMPARISON: Chest CT, 08/03/2013. Abdomen and pelvis CT, 01/20/2015. TECHNIQUE: Multidetector volumetric CT imaging of the chest was done. Axial MIP volume rendering provided. Sagittal and coronal reformatted images were obtained. DLP: 306 mGy-cm FINDINGS: LUNGS AND PLEURA: There is some mucus along the inner wall of the trachea. There is inward bowing of the posterior, membranous wall of the trachea, suggesting that images were acquired during expiration and/or coughing. Mucous is present within the left mainstem bronchus. There is mild centrilobular and paraseptal emphysema. Mild atelectasis is present in the dependent aspect of the the right lower lobe and lingula. There is chronic, mild volume loss of the left lower lobe with chronic streaky peribronchial opacities extending from the region of the hilum to the posterior pleura. This has the appearance of chronic fibrosis/atelectasis and is improved compared to 08/03 2013 and not appreciably changed compared to 01/20/2015. No acute pulmonary consolidation, interstitial edema or pleural effusion. MEDIASTINUM: Cardiomegaly and surgical changes from remote coronary artery bypass grafting. Severe three-vessel coronary artery atherosclerosis. Also, there is extensive atherosclerotic calcification of the tortuous thoracic aorta. The chronically dilated aortic root measures 4.2 cm. The dilated ascending thoracic aorta measures up to 4.4 cm AP and 4.2 cm transverse. At the mid arch level, thoracic aorta is 3.6 cm transverse diameter. The tortuous descending thoracic aorta is chronically dilated and as aorta approaches its diaphragmatic hiatus, it measures up to 4.9 cm AP and 5.5 cm transverse, compared to 4.9 cm x 5.4 cm on 01/20/2015. There is an old dissection flap of the distal descending thoracic and abdominal aorta. No pericardial effusion. Pulmonary arteries are chronically enlarged, as may be seen in pulmonary arterial hypertension. The esophagus is unremarkable. Within the lower neck, the visualized portion of the thyroid gland is normal. LYMPHATICS: No pathologic sized axillary, hilar or mediastinal lymph nodes. 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 The old, benign cortical cyst at the upper pole the right kidney is partially included in the [id number]. Adrenal glands are normal. OSSEOUS STRUCTURES: Sternotomy is healed. Old healed fracture of left posterior sixth rib. Mild osteoarthrosis of the visualized glenohumeral joints. Small bone island of the left glenoid. No suspicious bone lesions. IMPRESSION: 1. Mild pulmonary emphysema. 2. No evidence of acute pneumonia, pleural effusion or lymphadenopathy. 3. Cardiomegaly and severe atherosclerotic disease of coronary arteries, status post CABG. 4. 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 5. Pulmonary arteries are chronically enlarged, suggestive of pulmonary arterial hypertension. Assessment/Plan Assessment: Mr. 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 In the ED: Vital signs showed T 99.9, HR 103, RR 18, BP 127/57 and O2 saturation of 95% on 2L NC. His lab was significant for leukocytosis 22.7 an increase from 18 on 11/26/2016, his usual for leukocytosis at 606, H&H 8.8/27.3, sodium 132, potassium 4.7, BUN 17, creatinine 0.7 and sugar at 155. Lactic acid 1.8. CXR was done and showed left-sided airspace disease. Patient is admitted to the general medicine floor and the following is the management: 1. Leukocytosis, unknown source * Sources of infection include: Left-sided gram negative pneumonia, urinary ( chronic indwelling catheter), decubitus ulcer * Initial CXR showed likely left sided airspace disease * Current antibiotic coverage with IV ceftaz and vanc pending ID rec's * Repeat CT chest shows no signs of acute PNA, pleural effusion or LAD so we will follow ID recommendations on antibiotic coverage and thoughts on source of infection * 1 of 2 initial BC shows gram positive cocci, follow up final results * Urine culture shows gram negative rods, however consider contamination * Robitussin PRN for cough 2. Suprapubic catheter * Suprapubic catheter needed s/p paraplegia * Urine culture currently show gram negative rods * Noted that patient wets the bed continuously, will discuss with uro need to change catheter 3. Decubitus ulcer * Stage 4 decubitus ulcer present on admission along with rectal ulcer as noted by Dr. Guzman (wound consult appreciated) * No current wound vac in place due to masseration * Follow up plastic surgery consult with Dr. Hauser * Dressing with quarter strength Dakin's moistened gauze changed twice daily * Offloading mattress ordered 4. DM * Continue NSS TIDAC * Accuchecks 5. Seizure history * Continue keppra 500 mg PO BID 6. HTN, HLD * Lipitor 10 mg PO daily * Lisinopril 10 mg PO daily 7. Bipolar depression * Continue celexa and trazodone * Aricept 10 mg PO daily * Continue remeron 7.5 mg PO QPM DNR/DNI Diet: CC2 Mild pain pathway DVTP: SC Lovenox Problem List: 1. S/P CABG (coronary artery bypass graft) 2. S/P AAA (abdominal aortic aneurysm) repair 3. Hemiplegia 4. Pneumonia 5. Hypertension 6. Hyperlipidemia 7. CAD (coronary artery disease) 8. Abdominal aortic aneurysm 9. DVT prophylaxis 10. Decubitus ulcer Pain Ratin Pain Location: n/a Pain Goal: Remain pain free Pain Plan: Tylenol (mild), motrin (moderate), roxicodone (severe). Tomorrow's Labs & Rationales: CBC (severe infection), BEP (hyponatremia)
--- NOTE | 2016-11-30 08:13 | Cons- Wound Care ---
General Information and HPI Consulting Request Date of Consult: 11/30/16 [facility] Reason for Consult: Stage IV sacral coccyx ulcers present on admission complicated by osteomyelitis History of Present Illness: Patient is 71-year-old paraplegic who is had chronic stage IV ulcers of the sacrum and coccyx. He was recently hospitalized and underwent bone biopsy definitive for acute osteomyelitis. He was started on antibiotics and wound VAC was placed. He underwent diverting colostomy. He is admitted for increasing cough fever leukocytosis and suspected pneumonia. Blood cultures this morning are reported to be positive Allergies/Medications Allergies: Coded Allergies: NO KNOWN ALLERGIES (10/18/16) Home Med List: Acetaminophen 325 MG CAPSULE 2 CAP PO Q4H PRN PAIN/TEMP>/100 (Reported) Acetaminophen (Acephen) 650 MG SUPP.RECT 1 SUPP [place] Q4H PRN PAIN/TEMP>/100 ( Reported) Allopurinol 100 MG TABLET 1 TAB PO DAILY GOUT (Reported) Amino Acids/Protein Hydrolys (Pro-Stat Profile Liquid) (Unknown Strength) LIQUID 30 ML PO 1600 SUPPLEMENT (Reported) Ascorbate Calcium (Vitamin C) 500 MG TABLET 1 TAB PO BID SUPPLEMENT (Reported ) Aspirin (Children's Aspirin) 81 MG TAB.CHEW 1 TAB PO DAILY HEART/BLOOD ( Reported) Atorvastatin Calcium (Lipitor) 10 MG TABLET 1 TAB PO 2000 CHOLESTEROL ( Reported) Benazepril HCl 5 MG TABLET 10 MG PO DAILY BP (Reported) Calcium Carbonate/Vitamin D3 (Os-Tyrese 500+D3 Caplet) 500 MG-200 TABLET 1 TAB PO BID SUPPLEMENT (Reported) Citalopram Hydrobromide (Citalopram HBr) 20 MG TABLET 1 TAB PO 1600 MENTAL HEALTH (Reported) Docusate Sodium (Stool Softener) 100 MG CAPSULE 1 CAP PO 1600 GI (Reported) Donepezil HCl (Aricept) 10 MG TABLET 1 TAB PO QHS MEMORY (Reported) Ergocalciferol (Vitamin D2) (Vitamin D2) 50,000 UNIT CAPSULE 1 CAP PO Q30D SUPPLEMENT (Reported) Insulin Detemir (Levemir) 100 UNIT/ML VIAL 20 UNITS SC QHS DM (Reported) Ipratropium/Albuterol Sulfate (Iprat-Albut 0.5-3(2.5) MG/3 Ml) 0.5 MG-3 MG (2.5 MG BASE)/3 ML AMPUL.NEB 1 VIAL INH TID RESPIRATORY (Reported) Levetiracetam (Keppra) 500 MG TABLET 1 TAB PO BID SEIZURE (Reported) Magnesium Hydroxide (Milk Of Magnesia) 400 MG/5 ML ORAL.SUSP 30 ML PO DAILY PRN CONSTIPATION (Reported) Memantine HCl (Namenda XR) 28 MG CAP.SPR.24 1 CAP PO 2000 MEMORY (Reported) Mirtazapine (Remeron) 15 MG TAB.RAPDIS 7.5 MG PO QHS MENTAL HEALTH (Reported) Mv-Mn/FA/Vit K1/Lycop/Lut/Zeax (Ocuvite Eye + Multi Tablet) (Unknown Strength) TABLET 1 TAB PO 1600 SUPPLEMENT (Reported) Na Phos,M-B/Na Phos,Di-Ba (Fleet Enema) 19 GRAM-7 GRAM/118 ML ENEMA 1 E RC DAILY PRN CONSTIPATION (Reported) Sennosides/Docusate Sodium (Senna Laxative Tablet) 8.6 MG-50 MG TABLET 2 TAB PO DAILY GI (Reported) Trazodone HCl 50 MG TABLET 0.5 MG PO Q12H PRN ANXIETY (Reported) Review of Systems Review of Systems: Noncontributory Past History Travel History Traveled to [place] past 21 day No Medical History Blood Transfusion Hx: Yes Neurological: PARAPLEGIA STATUS POST SPINAL SHOCK POSTOP EENT: NONE Cardiovascular: CAD, hypertension, hyperlipidemia, ABDOMINAL ANEURYSM Respiratory: asthma, pneumonia Gastrointestinal: GERD, COLOSTOMY Hepatic: NONE Renal: neurogenic bladder, UTI SPT Musculoskeletal: decubitis ulcer (OSTEOMYELITIS) Psychiatric: anxiety, depression Endocrine: DIABETES TYPE 2 Blood Disorders: NONE Cancer(s): prostate cancer METAL FILER/Reproductive: NONE Surgical History Surgical History: AAA repair x2 once 2002, and 2013 CYSTOSTOMY W/ SPT PLACED TRIPLE BYPASS COLOSTOMY PLACEMENT Family History Relations & Conditions If Any: MOTHER FH: coronary artery disease FH: diabetes mellitus BROTHER FH: diabetes mellitus SISTER Psychosocial History Where Do You Live? Extended Care Facility ([facility]) Services at Home: Home Health Aide, Nursing Primary Language: Upper Sorbian Smoking Status: Never Smoked ETOH Use: denies use Illicit Drug Use: denies illicit drug use Functional Ability ADLs Independent: eating. Needs Assist: dressing, toileting, bathing. Ambulation: non-ambulatory IADLs Needs Assist: shopping, housework, finances, food prep, telephone, transportation, medication admin. Exam & Diagnostic Data Vital Signs and I&O Vital Signs Result Date Time Pulse Ox 96 11/30 626 B/P 110/50 11/30 626 O2 Delivery Room Air 11/30 626 Temp 99.7 11/30 626 Pulse 85 11/30 626 Resp 20 11/30 626 O2 Flow Rate Room Air 11/29 2022 Intake & Output 11/30 0000 11/29 1600 11/29 0800 Intake Total 240 Output Total 150 Balance 90 Intake, Oral 240 Number 1 Bowel Movements Output, Urine 150 Patient 182 lb Weight Exam of the sacral wound shows it to be 10 x 10 cm with a large area of exposed bone there is significant slough present and undermining. 8. Rectal ulcer is markedly increased in size now measuring 5 x 5 cm undermined with predominant slough fill. Assessment/Plan Impression/Plan: 71-year-old gentleman paraplegic admitted with leukocytosis of uncertain etiology potential sources are lung urine and wound. Given the appearance of his wounds would not replace wound VAC at this time. Recommend plastic surgery evaluation for debridement and evaluation for flap closure once acute issues are resolved. Patient should be placed on a [place] bed. Wound care in the interim can be either Aquacel Ag. Or quarter strength Dakin's moistened gauze changed twice daily. Areas should be offloaded. [place] for wound closure appears to be poor without major surgical intervention Consult Acknowledgment - Thank you for your consult request.
[2016-11-30 08:17] LABS: ABSOLUTE BASOPHIL COUNT 0 /CUMM (0.0-0.2); ABSOLUTE EOSINOPHIL COUNT 0.2 /CUMM (0.0-0.7); ABSOLUTE LYMPH COUNT 1.2 /CUMM (1.2-3.4); BASOPHIL % 0.2 % (0.0-2.0); EOSINOPHIL % 1.1 % (0-5); GRANULOCYTE % 82.4 % (42.2-75.2); HEMATOCRIT 26.2 % (42-52); MEAN CORPUSCULAR HGB 26.7 PG (27.0-31.0); MEAN CORPUSCULAR HGB CONC 32.1 G/DL (33.0-37.0); MEAN CORPUSCULAR VOLUME 83.2 FL (80.0-94.0); MEAN PLATELET VOLUME 7.7 FL (7.4-10.4); PLATELET COUNT 594 /CUMM (130-400); RBC DISTRIBUTION WIDTH 19.1 % (11.5-14.5); RED BLOOD CELL CT 3.15 /CUMM (4.70-6.10); WHITE BLOOD CELL COUNT 19.5 /CUMM (4.8-10.8)
--- NOTE | 2016-11-30 09:41 | Admission Certification ---
Admission Certification Certification Statement - As attending physician, I certify that at the time of - admission, based on clinical presentation, severity of - symptoms, need for further diagnostic testing and - therapeutic interventions, and risk of adverse outcomes - without in-hospital treatment, in my clinical assessment, - this patient requires an acute hospital stay for a minimum - of two nights or longer. I have also considered psychsocial - factors such as support system, advanced age, financial - issues, cognitive issues, and failed out-patient treatments, - past re-admission history, safety of patient, and lack of - compliance as applicable. Specific rationale supporting this admission is: Pneumonia, decubitus ulcer
--- NOTE | 2016-11-30 09:41 | PN- Att Addend ---
Attending Addendum Attending Brief Note Patient appears lethargic but responds to commands General Appearance: Lethargic Skin: Decubitus ulcer HEENT: PEERLA Neck: Supple, No JVD Cardiovascular: Regular Rate, Normal S1, Normal S2, No Murmurs Lungs: Clear to Auscultation, Normal Air Movement Abdomen: Left colostomy bag and a suprapubic catheter Neurological: Paraplegic Extremities: No Clubbing, No Cyanosis, No Edema Vascular: Normal Pulses Assessment 71-year-old male with history of aortic abdominal aneurysm status post repair, paraplegia with suprapubic catheter, chronic nonhealing sacral decubitus ulcer, diabetes, dyslipidemia, coronary artery disease, hypertension sent from rehabilitation facility after abnormal labs including leukocytosis and elevated ESR of about 100. Patient was recently hospitalized and had a debridement by Roman Dumont MD with wound VAC. X-rays suggest opacification posterior lung with possible loculated fluid versus pneumonia. His blood cultures positive for 1 out of 2 bottles gram-positive cocci in pairs and chains. Possible infected decubitus versus pneumonia. We will get CAT scan of the chest to rule out loculated effusions. Plan CAT scan chest without contrast Continue current antibiotics Plastic surgery evaluation for wound care and possible debridement ID evaluation, and wound consult Continue insulin and Accu-Cheks Continue other home meds DVT prophylaxis Current Medications Sig/Mey Start time Last Medication Dose Route Stop Time Status Admin Acetaminophen 650 MG Q6P PRN 11/29 2030 AC PO Allopurinol 100 MG DAILY 11/30 1000 AC 11/30 PO 0938 Atorvastatin Calcium 10 MG 2000 11/30 2000 AC PO Ceftazidime 1,000 MG Q8H 11/30 0400 AC 11/30 IV 0416 Ceftazidime 0 .STK-MED ONE 11/29 1859 DC .ROUTE Ceftazidime 1,000 MG ONCE ONE 11/29 1845 DC 11/29 IV 11/29 1846 1956 Citalopram 20 MG 1600 11/30 1600 AC Hydrobromide PO Donepezil HCl 10 MG DAILY 11/30 1000 AC 11/30 PO 0938 Enoxaparin Sodium 40 MG 2200 11/29 2200 AC 11/30 SC 0122 Guaifenesin 10 ML .STK-MED ONE 11/30 0008 DC PO 11/30 0009 Guaifenesin 10 ML Q6P PRN 11/29 2345 AC 11/30 PO 0031 Ibuprofen 600 MG Q6P PRN 11/29 2030 AC PO Insulin Aspart 0 TIDAC 11/30 0800 AC SC Ipratropium [place] 2.5 ML Q6-PRN PRN 11/29 224 CAN INH Levetiracetam 500 MG BID 11/29 2241 AC 11/30 PO 0938 Lisinopril 10 MG DAILY 11/30 1000 AC 11/30 PO 09 Memantine 10 MG BID 11/30 1000 AC 11/30 PO 09 Mirtazapine 7.5 MG AT BEDTIME NEED.. 11/30 2200 AC PO Oxycodone HCl 10 MG Q6P PRN 11/29 2030 AC PO Senna/Docusate Sodium 2 TAB DAILY 11/30 1000 AC 11/30 PO 937 Sodium Hypochlorite 1 HILARIA BID 11/30 1000 AC TOP Trazodone HCl 25 MG Q12P PRN 11/29 2245 AC 11/30 PO 0121 Vancomycin HCl 1,250 MG BID 11/30 1000 AC 11/30 Dextrose/Water 250 ML IV 09 Vancomycin HCl 0 .STK-MED ONE 11/29 185 DC .ROUTE Vancomycin HCl 1,000 MG ONCE ONE 11/29 184 DC 11/29 Dextrose/Water 250 ML IV 11/29 1941955 Laboratory Tests 11/30 Chemistry Sodium (137 - 145 mmol/L) 134 L Potassium (3.5 - 5.1 mmol/L) 4.5 Chloride (98 - 107 mmol/L) 98 Carbon Dioxide (22 - 30 mmol/L) 25 Anion Gap (5 - 16) 11 BUN (9 - 20 mg/dL) 17 Creatinine (0.7 - 1.2 mg/dL) 0.7 Estimated GFR (>60 ml/min) > 60 BUN/Creatinine Ratio (7 - 25 %) 24.3 Lactic Acid (0.7 - 2.1 mmol/L) 2.1 Hematology CBC w Diff NO MAN DIFF REQ WBC (4.8 - 10.8 /CUMM) 19.5 H RBC (4.70 - 6.10 /CUMM) 3.15 L Hgb (14.0 - 18.0 G/DL) 8.4 L Hct (42 - 52 %) 26.2 L MCV (80.0 - 94.0 FL) 83.2 MCH (27.0 - 31.0 PG) 26.7 L RDW (11.5 - 14.5 %) 19.1 H Plt Count (130 - 400 /CUMM) 594 H MPV (7.4 - 10.4 FL) 7.7 Gran % (42.2 - 75.2 %) 82.4 H Lymphocytes % (20.5 - 51.1 %) 5.9 L Monocytes % (1.7 - 9.3 %) 10.4 H Eosinophils % (0 - 5 %) 1.1 Basophils % (0.0 - 2.0 %) 0.2 Absolute Granulocytes (1.4 - 6.5 /CUMM) 16.0 H Absolute Lymphocytes (1.2 - 3.4 /CUMM) 1.2 Absolute Monocytes (0.10 - 0.60 /CUMM) 2.0 H Absolute Eosinophils (0.0 - 0.7 /CUMM) 0.2 Absolute Basophils (0.0 - 0.2 /CUMM) 0 PUBS MCHC (33.0 - 37.0 G/DL) 32.1 L 11/29 1752 Chemistry Sodium (137 - 145 mmol/L) 132 L Potassium (3.5 - 5.1 mmol/L) 4.7 Chloride (98 - 107 mmol/L) 94 L Carbon Dioxide (22 - 30 mmol/L) 24 Anion Gap (5 - 16) 14 BUN (9 - 20 mg/dL) 17 Creatinine (0.7 - 1.2 mg/dL) 0.7 Estimated GFR (>60 ml/min) > 60 BUN/Creatinine Ratio (7 - 25 %) 24.3 Glucose (65 - 99 mg/dL) 155 H Lactic Acid (0.7 - 2.1 mmol/L) 1.8 Calcium (8.4 - 10.2 mg/dL) 9.2 Total Bilirubin (0.2 - 1.3 mg/dL) 0.5 AST (17 - 59 U/L) 18 ALT (21 - 72 U/L) 26 Alkaline Phosphatase (< 127 U/L) 149 H Troponin I (<0.11 ng/ml) < 0.01 Total Protein (6.3 - 8.2 g/dL) 7.4 Albumin (3.5 - 5.0 g/dL) 3.1 L Globulin (1.9 - 4.2 gm/dL) 4.3 H Albumin/Globulin Ratio (1.1 - 2.2 %) 0.7 L Hematology CBC w Diff MAN DIFF ORDERED WBC (4.8 - 10.8 /CUMM) 22.7 H RBC (4.70 - 6.10 /CUMM) 3.31 L Hgb (14.0 - 18.0 G/DL) 8.8 L Hct (42 - 52 %) 27.3 L MCV (80.0 - 94.0 FL) 82.6 MCH (27.0 - 31.0 PG) 26.7 L RDW (11.5 - 14.5 %) 19.3 H Plt Count (130 - 400 /CUMM) 606 H MPV (7.4 - 10.4 FL) 7.3 L Gran % (42.2 - 75.2 %) 86.8 H Lymphocytes % (20.5 - 51.1 %) 3.6 L Monocytes % (1.7 - 9.3 %) 9.0 Eosinophils % (0 - 5 %) 0.4 Basophils % (0.0 - 2.0 %) 0.2 Absolute Granulocytes (1.4 - 6.5 /CUMM) 19.7 H Absolute Lymphocytes (1.2 - 3.4 /CUMM) 0.8 L Absolute Monocytes (0.10 - 0.60 /CUMM) 2.0 H Absolute Eosinophils (0.0 - 0.7 /CUMM) 0.1 Absolute Basophils (0.0 - 0.2 /CUMM) 0.1 Platelet Estimate (ADEQUATE) INCREASED Polychromasia 1+ Poikilocytosis 1+ Anisocytosis 1+ Stomatocytes FEW PUBS MCHC (33.0 - 37.0 G/DL) 32.3 L Urines Urine Color (YEL,AMB,STR) YEL Urine Clarity (CLEAR) HAZY H Urine pH (5.0 - 8.0) 6.0 Ur Specific [place] (1.001 - 1.035) 1.010 Urine Protein (NEG,<30 MG/DL) 30 H Urine Ketones (NEG) NEG Urine Nitrite (NEG) POS H Urine Bilirubin (NEG) NEG Urine Urobilinogen (0.1 - 1.0 EU/dl) 0.2 Ur Leukocyte Esterase (NEG) MOD H Ur Microscopic SEDIMENT EXAMINED Urine RBC (0 - 5 /HPF) 1-3 Urine WBC (0 - 2 /HPF) 50-75 H Granular Casts (NONE /LPF) 1-3 H Urine Hemoglobin (NEG) TRACE-INTACT H Urine Glucose (N MG/DL) NEG Vital Signs Date Time Temp Pulse Resp B/P Pulse O2 O2 Flow FiO2 Ox Delivery Rate 11/30 937 110/50 11/30 06 99.7 85 20 110/50 96 Room Air 11/29 2259 94 Room Air 11/29 2145 97.4 99 20 120/64 94 11/29 2022 98.2 91 18 119/59 96 Room Air Room Air 11/29 1723 99.9 103 18 127/57 95 Nasal 2.0L Cannula
--- NOTE | 2016-11-30 13:07 | CT SCAN REPORT ---
EXAMINATION: CT CHEST WITHOUT CONTRAST CLINICAL INFORMATION: 71-year-old male with cough, fever and lethargy. Evaluate for pneumonia. History of descending thoracic aorta aneurysm repair. COMPARISON: Chest CT, 08/03/2013. Abdomen and pelvis CT, 01/20/2015. TECHNIQUE: Multidetector volumetric CT imaging of the chest was done. Axial MIP volume rendering provided. Sagittal and coronal reformatted images were obtained. DLP: 306 mGy-cm FINDINGS: LUNGS AND PLEURA: There is some mucus along the inner wall of the trachea. There is inward bowing of the posterior, membranous wall of the trachea, suggesting that images were acquired during expiration and/or coughing. Mucous is present within the left mainstem bronchus. There is mild centrilobular and paraseptal emphysema. Mild atelectasis is present in the dependent aspect of the the right lower lobe and lingula. There is chronic, mild volume loss of the left lower lobe with chronic streaky peribronchial opacities extending from the region of the hilum to the posterior pleura. This has the appearance of chronic fibrosis/atelectasis and is improved compared to 08/03 2013 and not appreciably changed compared to 01/20/2015. No acute pulmonary consolidation, interstitial edema or pleural effusion. MEDIASTINUM: Cardiomegaly and surgical changes from remote coronary artery bypass grafting. Severe three-vessel coronary artery atherosclerosis. Also, there is extensive atherosclerotic calcification of the tortuous thoracic aorta. The chronically dilated aortic root measures 4.2 cm. The dilated ascending thoracic aorta measures up to 4.4 cm AP and 4.2 cm transverse. At the mid arch level, thoracic aorta is 3.6 cm transverse diameter. The tortuous descending thoracic aorta is chronically dilated and as aorta approaches its diaphragmatic hiatus, it measures up to 4.9 cm AP and 5.5 cm transverse, compared to 4.9 cm x 5.4 cm on 01/20/2015. There is an old dissection flap of the distal descending thoracic and abdominal aorta. No pericardial effusion. Pulmonary arteries are chronically enlarged, as may be seen in pulmonary arterial hypertension. The esophagus is unremarkable. Within the lower neck, the visualized portion of the thyroid gland is normal. LYMPHATICS: No pathologic sized axillary, hilar or mediastinal lymph nodes. 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 The old, benign cortical cyst at the upper pole the right kidney is partially included in the [id number]. Adrenal glands are normal. OSSEOUS STRUCTURES: Sternotomy is healed. Old healed fracture of left posterior sixth rib. Mild osteoarthrosis of the visualized glenohumeral joints. Small bone island of the left glenoid. No suspicious bone lesions. IMPRESSION: 1. Mild pulmonary emphysema. 2. No evidence of acute pneumonia, pleural effusion or lymphadenopathy. 3. Cardiomegaly and severe atherosclerotic disease of coronary arteries, status post CABG. 4. 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 5. Pulmonary arteries are chronically enlarged, suggestive of pulmonary arterial hypertension.
--- NOTE | 2016-11-30 13:24 | Discharge Summary ---
See Addendum Visit Information Visit Dates Admission Date: 11/29/16 Discharge Date: 12/10/2016 Hospital Course Course Attending Physician: JEANNIE ANN MD Primary Care Physician: SLIM COLE MD Hospital Course: 71-year-old male with past medical history of aortic abdominal aneurysm repair and spinal stroke leading to paraplegia, with indwelling suprapubic catheter, non-healing sacral decubitus ulcer, diabetes mellitus, hyperlipidemia, coronary artery disease, hypertension, GERD, anxiety, depression was brought in by ambulance from [facility] with abnormal lab values of leukocytosis and cough. At emergency department, his blood pressure was 127/57, pulse 103, temperature 99.9, saturation 95% with 2 L/m oxygen via nasal cannula, although when examined , he was saturating well above 92% on room air. Physical examnination: General: well nourished patient not in distress Head: Normocephalic, atraumatic Eyes: Pupils normal in size, regular, reacting to light and accommodation, EOM normal Ears: B/l normal on inspection Nose: Normal on inspection Throat/mouth: Moist mucosa Neck: Supple, full range of motion, no thyromegaly Heart: Regular rate, regular rhythm Lung: Normal breath sound bilaterally Added sound not heard Abd: Soft, non-tender, no distention appreciated, has no sensation chest down, suprapubic catheter in situ, no surrounding erythema or discharge Back: Normal range of motion, dressing placed over left side of his buttock with wound vac. Not opened during examination. No soakage or leakage. Extremities: Normal knee exam bilaterally, no pedal edema, Distal neurovascular intact Neurologic: Alert, oriented x3, Cranial exam grossly intact, patient is paraplegic and has no sensation chest down Speech is clear and coherent Skin: Warm and dry Psychiatric: Calm, cooperative, coherant EKG Results Normal sinus rhythm, rate 85, no changes compared to prior EKG CXR Results Opacity in the posterior left lung may represent an evolving airspace disease or loculated fluid. Repeat chest x-ray after treatment recommended. He was admitted to general medicine floor and treated for these medical conditions #Elevated WBC, low-grade fever/Chronic nonhealing decubitus ulcer in sacral region/possible sacral spine osteomyelitis Prior to admission the patient had completed a 4 week course of unasyn for osteomyelitis. Initially patient was treated for possible pneumonia with IV ceftazidime and, vancomycin. However per attending and the clinical conditions pneumonia was ruled out. Per ID, we changed antibiotics to Zosyn (based on the culture of the urine/pseudomonal and trunk group G strep abd bx culture strep group g) which he completed a total of 16 doses Unsayn 4.5gm Q6. MRI of spine showed Osteomyelitis of the S5 segment of the sacrum ,left ischial tuberosity with overlying decubitusulcer extending to the depth of bone. Superficial wound cultures from 12/02/16: * Light growth of BETA STREP GROUP G * Scant growth of : METH RESIST STAPH AUREUS ISOLATED * METH RESIST STAPH AUREUS RX AB ------ -- CEFAZOLIN R AMOXICILLIN/CLAVULINIC ACID R AMPICILLIN/SULBACTAM R TETRACYCLINE S TRIMETHOPRIM/SULFAMETHOXAZOLE S AZITHROMYCIN R CLINDAMYCIN R ERYTHROMYCIN R OXACILLIN R VANCOMYCIN S We stransitioned him to vancomycin and discontinued zosyn once these cultures returned. Pt underwent a sacral debridment on 12/06/16 with the following cultures: * VANC RESIST ENTEROCOCCUS ISOLATED * VANC RESIST ENTEROCOCCUS RX AB ------ -- DAPTOMYCIN BHAVIN S 1. VANC RESIST ENTEROCOCCUS RX AB ------ -- AMPICILLIN R VANCOMYCIN R PICC line was placed and patient should be on IV abx therapy for 4 weeks. Currently on daptomycin 500mg daily started on 12/09/2015 (to complete 28 days): STOP ON JANUARY 04, 2017 #Diabetes, insomnia,CAD Patient oral antihyperglycemic addition to sinus scale insulin and changed back to the home dosage upon discharge.We continued medication for insomnia and CAD without any major events. #Urinary leakage patient had urinary leakage from his penis, despite having suprapubic catheter. Urology is started the patient on 30 mg oxybutynin daily Oxybutynin 10 mg 3 times a day immediate release during the inpatient. Currently with discharging the patient on oxybutynin 30 mg extended release once daily. Follow-up with Dr. Koch within 7 days for symptomatic control #Stage IV decubitus ulcer Status post debridement Once patient returns to the facility, wound VAC should be replaced Recommend Clinitron bed, Dakins wet-to-dry once daily, when necessary Contact Dr. Jung's office for follow up Allergies: Coded Allergies: NO KNOWN ALLERGIES (10/18/16) Significant Procedures: PATIENT: YOLANDA SUMMERS PRESENT AGE: 71 PATIENT ACCOUNT NO: [id number] : 46 LOCATION: 2NA ORDERING PHYSICIAN: KIKE BERMAN MD SERVICE DATE: 12/03/16- EXAM TYPE: MRI - MRI-LUMBAR SPINE W & W/O KATHIE EXAMINATION: MR LUMBAR SPINE WITHOUT AND WITH CONTRAST CLINICAL INFORMATION: Decubitus ulcer. Lumbar osteomyelitis. COMPARISON: CT dated 11/30/2016 and prior MRI of the pelvis dated 10/09/2016. TECHNIQUE: MRI of the lumbar spine was obtained before and after intravenous administration of 18 mL Magnevist. FINDINGS: VERTEBRAL BODIES AND PARASPINAL STRUCTURES: Vertebral body heights are normal. There is left convex lumbar scoliotic curvature centered at L2. Ytpzrhsi-xe-vucmak degenerative arthritis is present at L2-L3, right side greater than left, characterized by loss of intervertebral disc height, endplate osteophytes, Modic type II subendplate marrow changes, intervertebral disc desiccation, and endplate irregularity. More mild multilevel degenerative disc disease is present at the other levels. No abnormal enhancement within the lumbar spine. There is ascoqavr-pu-nqtald multilevel facet arthropathy in the lumbar spine from the L1-L2 level through L5-S1. There is mild degenerative arthritis in the SI joints bilaterally. Marrow edema is present throughout the S5 segment. The coccyx is absent. As seen on image 14/30 of series 3, the tip of the S5 vertebral body is low in signal intensity on T1-weighted images and avidly enhancing on postcontrast images, most compatible with osteomyelitis. The overlying decubitus ulcer in this region measures 5.4 x 6.8 cm (transverse by AP) with a depth of 2.8 cm, extending into the left ischioanal fat. There is a thin band of fluid in the subcutaneous fat extending cephalad from the ulceration by 3 cm. This band of fluid is thin, measuring 6 x 3 x 0.2 cm. No deeper fluid collections are identified in this region. There is significant soft tissue edema and enhancement surrounding the edematous bone, extending cephalad in the sacral hiatus to the level of S3-S4 and extending cephalad in the presacral space to the level of S1-S2. The left ischium is partially included on this study. The left tissue tuberosity is edematous and enhancing with foci of low T1 signal intensity intramedullary space on T1-weighted images, consistent with osteomyelitis. Pelvic in general, the imaged pelvic soft tissues are only partially included on this study. There are chronic degenerative changes at the pubic symphysis with pubic symphysis diastases and surrounding edema. Potential osteomyelitis at the pubic symphysis is not well assessed on this study. There is significant soft tissue edema signal within the left hemipelvis around the obturator commercial account manager muscle. Edema signal is also present within the bilateral adductor and short external rotator musculature. Muscles are diffusely atrophic. No deep fluid collections are identified. A suprapubic catheter is present in the bladder. The region of the prostate and urethra is not well evaluated, though appears abnormal grossly. Multiple bilateral renal cysts are noted. The chronic dissection is again seen within the abdominal aorta which is aneurysmal to 5 cm on these images. There is ectasia of the bilateral common iliac arteries as well as the left internal iliac artery. CONUS MEDULLARIS AND CAUDA EQUINA: The conus medullaris is atrophic, terminating in the region of T11-T12. SPINAL LEVELS: T12-L1: Unremarkable L1-L2: Mild annular bulge. Minimal retrolisthesis of L1 on L2 (2 mm). No significant central canal or neural foraminal stenoses. L2-L3: Minimal retrolisthesis of L2 on L3 (2 mm). Diffuse disc osteophyte complex indents the ventral aspect of the thecal sac without producing significant central canal stenosis. There is moderate facet arthropathy. Foraminal components of the endplate osteophytes produce mild bilateral neural foraminal stenoses. L3-L4: Facet arthropathy combines with a diffuse annular bulge to produce pabg-nq-jnwsrpog central canal stenosis. There is mild mass effect upon the left L4 nerve roots in the lateral recess. Mild bilateral neural foraminal stenoses are noted. L4-L5: A diffuse disc bulge combines with the severe facet arthropathy and ligamentum flavum thickening to produce gqvgwpdl-js-nqhvzi central canal stenosis as well as mhcb-ar-fjagijfc bilateral neural foraminal stenoses. L5-S1: Marked facet arthropathy is more pronounced on the right side than the left. No significant central canal or neural foraminal stenoses. IMPRESSION: 1. Osteomyelitis of the S5 segment of the sacrum with absence of the coccyx and an overlying sacral decubitus ulcer which extends to the depth of bone. No abscess. 2. Osteomyelitis of the left ischial tuberosity with overlying decubitus ulcer extending to the depth of bone. This decubitus ulcer is contiguous with the aforementioned sacral ulcer. 3. No additional foci of osteomyelitis are identified within the lumbar spine. Degeneration, edema, and cortical irregularity are present at the pubic symphysis which is only partially included on this study. Pubic symphyseal infection is not excluded. 4. Multilevel degenerative disc disease in the lumbar spine, most severe at L2-L3. There is vlcafgbw-yv-xxvuqm multilevel facet arthropathy. 5. Wanxmsrz-vv-ytdwdy central canal stenosis at L4-L5. DICTATED BY: RUSS MINAYA MD DATE/TIME DICTATED:12/03/161318 PLUSH DRESSER:JANNA DATE/TIME TRANSCRIBED:12/03/161318 CONFIDENTIAL, DO NOT COPY WITHOUT APPROPRIATE AUTHORIZATION. <Electronically signed in Other Vendor System> SIGNED BY: RUSS MINAYA MD 12/03/16 1524 PATIENT: YOLANDA SUMMERS PRESENT AGE: 71 PATIENT ACCOUNT NO: [id number] : 46 LOCATION: 2NA ORDERING PHYSICIAN: JEANNIE ANN MD SERVICE DATE: 12/04/16 EXAM TYPE: RAD - XRY-PORTABLE CHEST XRAY EXAMINATION: XR PORTABLE CHEST CLINICAL INFORMATION: Peripherally inserted catheter for long-term antibiotic treatment. COMPARISON: CXR from 11/29/2016 TECHNIQUE: Portable AP view of the chest was obtained. FINDINGS: The right arm peripherally inserted catheter is in satisfactory position with its tip located in the distal third of the superior vena cava. There is chronic volume loss of the left lower lobe. Again noted are peribronchial opacities in the left lower lobe and elevation of the left diaphragm. There is linear opacity of minimal atelectasis or scar at the right lung base. No acute airspace opacification, pulmonary edema or pleural effusion. Cardiac silhouette and central pulmonary vessels are chronically enlarged. The sternotomy wires are intact. No acute skeletal findings. IMPRESSION: The right arm peripherally inserted catheter is in satisfactory position with its tip located in the distal superior vena cava. DICTATED BY: BAILEE RICKS MD DATE/TIME DICTATED:12/04/161332 PLUSH DRESSER:JANNA DATE/TIME TRANSCRIBED:12/04/161332 CONFIDENTIAL, DO NOT COPY WITHOUT APPROPRIATE AUTHORIZATION. <Electronically signed in Other Vendor System> SIGNED BY: BAILEE RICKS MD 12/04/16 1340 PATIENT: YOLANDA SUMMERS PRESENT AGE: 71 PATIENT ACCOUNT NO: [id number] : 46 LOCATION: A ORDERING PHYSICIAN: GUSTAVO SYED MD SERVICE DATE: 11/30/16- EXAM TYPE: CAT - CT CHEST WO IV CONTRAST EXAMINATION: CT CHEST WITHOUT CONTRAST CLINICAL INFORMATION: 71-year-old male with cough, fever and lethargy. Evaluate for pneumonia. History of descending thoracic aorta aneurysm repair. COMPARISON: Chest CT, 08/03/2013. Abdomen and pelvis CT, 01/20/2015. TECHNIQUE: Multidetector volumetric CT imaging of the chest was done. Axial MIP volume rendering provided. Sagittal and coronal reformatted images were obtained. DLP: 306 mGy-cm FINDINGS: LUNGS AND PLEURA: There is some mucus along the inner wall of the trachea. There is inward bowing of the posterior, membranous wall of the trachea, suggesting that images were acquired during expiration and/or coughing. Mucous is present within the left mainstem bronchus. There is mild centrilobular and paraseptal emphysema. Mild atelectasis is present in the dependent aspect of the the right lower lobe and lingula. There is chronic, mild volume loss of the left lower lobe with chronic streaky peribronchial opacities extending from the region of the hilum to the posterior pleura. This has the appearance of chronic fibrosis/atelectasis and is improved compared to 08/03 2013 and not appreciably changed compared to 01/20/2015. No acute pulmonary consolidation, interstitial edema or pleural effusion. MEDIASTINUM: Cardiomegaly and surgical changes from remote coronary artery bypass grafting. Severe three-vessel coronary artery atherosclerosis. Also, there is extensive atherosclerotic calcification of the tortuous thoracic aorta. The chronically dilated aortic root measures 4.2 cm. The dilated ascending thoracic aorta measures up to 4.4 cm AP and 4.2 cm transverse. At the mid arch level, thoracic aorta is 3.6 cm transverse diameter. The tortuous descending thoracic aorta is chronically dilated and as aorta approaches its diaphragmatic hiatus, it measures up to 4.9 cm AP and 5.5 cm transverse, compared to 4.9 cm x 5.4 cm on 01/20/2015. There is an old dissection flap of the distal descending thoracic and abdominal aorta. No pericardial effusion. Pulmonary arteries are chronically enlarged, as may be seen in pulmonary arterial hypertension. The esophagus is unremarkable. Within the lower neck, the visualized portion of the thyroid gland is normal. LYMPHATICS: No pathologic sized axillary, hilar or mediastinal lymph nodes. 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 The old, benign cortical cyst at the upper pole the right kidney is partially included in the ofurb-wd-vjka. Adrenal glands are normal. OSSEOUS STRUCTURES: Sternotomy is healed. Old healed fracture of left posterior sixth rib. Mild osteoarthrosis of the visualized glenohumeral joints. Small bone island of the left glenoid. No suspicious bone lesions. IMPRESSION: 1. Mild pulmonary emphysema. 2. No evidence of acute pneumonia, pleural effusion or lymphadenopathy. 3. Cardiomegaly and severe atherosclerotic disease of coronary arteries, status post CABG. 4. 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 5. Pulmonary arteries are chronically enlarged, suggestive of pulmonary arterial hypertension. DICTATED BY: BAILEE RICKS MD DATE/TIME DICTATED:11/30/161244 PLUSH DRESSER:JANNA DATE/TIME TRANSCRIBED:11/30/161244 CONFIDENTIAL, DO NOT COPY WITHOUT APPROPRIATE AUTHORIZATION. <Electronically signed in Other Vendor System> SIGNED BY: BAILEE RICKS MD 11/30/16 1307 PATIENT: YOLANDA SUMMERS PRESENT AGE: 71 PATIENT ACCOUNT NO: [id number] : 46 LOCATION: 2NA ORDERING PHYSICIAN: CANDI VELAZQUEZ MD SERVICE DATE: 11/30/16- EXAM TYPE: CAT - CT ABD & PELVIS W IV CONTRAST EXAMINATION: CT ABDOMEN AND PELVIS WITH CONTRAST CLINICAL INFORMATION: Chronic sacral decubitus ulcer. Evaluate for abscess. COMPARISON: CT abdomen and pelvis dated 01/20/2015 TECHNIQUE: Multidetector volumetric imaging was performed of the abdomen and pelvis before and after the IV administration of 94 mL of Optiray 320 intravenous contrast. Sagittal and coronal reformatted images were obtained on the technologist's workstation. DLP: 631.85 mGy-cm FINDINGS: LUNG BASES: Bibasilar atelectatic changes noted again, left greater than right. Somewhat similar appearance seen on the prior examination. Atherosclerotic disease of the distal descending aorta similar to the previous examination with wall thrombus and intimal calcification. LIVER, GALLBLADDER, AND BILIARY TREE: Subtle low-attenuation adjacent to the falciform ligament likely representing transient hepatic attenuation difference similar to the prior study. Status post cholecystectomy. No evidence of biliary ductal dilatation. PANCREAS: Unremarkable. SPLEEN: Lobulated spleen. Stable subcapsular low-attenuation noted along the outer aspect with associated subtle calcific appearing peripheral hyperdensity . ADRENAL GLANDS: Unremarkable. KIDNEYS AND URETERS: Multiple low-attenuation renal cortical lesions noted again. Dominant cyst upper pole right kidney demonstrates slight interval decrease measuring 3.7 x 2.5 cm compared to 4.2 x 3.3 cm. Previously seen smaller exophytic hyperdense cystic lesion outer aspect right kidney demonstrates interval increase in size now measuring approximately 2.2 x 1.6 cm compared to 1.4 cm. Additional low-attenuation bilateral cortical lesions also demonstrate slight interval increase. Interval increase in the cortical thinning of the left kidney. Decreased size of the right kidney compatible with atrophy. BLADDER: Percutaneous bladder catheter. Thick-walled appearance urinary bladder. GASTROINTESTINAL TRACT: Postoperative changes with Morton's pouch. Left-sided colostomy. Colonic diverticulosis. Mildly thick-walled rectoanal junction. Abnormal soft tissue thickening posterior to the rectum extending to the gluteal cleft. ABDOMINAL WALL: No evidence of parastomal hernia. LYMPH NODES: No gross lymphadenopathy. 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 Atherosclerotic disease. PELVIS: Decubitus ulceration with pocket of air surrounded by soft tissue thickening noted in the left posterior ischial region. Adjacent posterior ischiopubic junction demonstrates subtle cortical lucency raising the possibility of associated osteomyelitis. Somewhat similar appearance was also seen on the prior examination. Stranding and soft tissue thickening noted in the presacral fat. OSSEOUS STRUCTURES: Decubitus ulcer at the level of the coccyx with nonvisualization of the coccygeal bones. This presents a new finding. Associated osteomyelitis of the S5 vertebra cannot be excluded. Decubitus ulcer is also in close proximity to the left ischial pubic junction. Again, adjacent osteomyelitis is difficult to exclude. IMPRESSION: 1. Large decubitus ulcer with adjacent soft tissue thickening extending to the posterior perirectal region. Abnormal soft tissue thickening and air pocket also abutting the left ischiopubic junction. Abnormal soft tissue and ulceration abutting the left ischiopubic junction and the S5 vertebra. Adjacent osteomyelitis cannot be excluded. No gross evidence of abscess formation. 2. Interval absence of the coccygeal bones. This may represent a postsurgical change. Clinical correlation recommended. 3. Left basilar atelectasis. 4. Splenic subcapsular low-attenuation with no significant interval change. 5. Interval decrease in the dominant right upper pole renal cyst. Remaining low-attenuation renal lesions demonstrate slight interval increase. Interval increase in the left renal atrophy. 6. Thick-walled urinary bladder with percutaneous catheter. DICTATED BY: JOSIE BLANC MD DATE/TIME DICTATED:11/30/162336 PLUSH DRESSER:JANNA DATE/TIME TRANSCRIBED:11/30/162336 CONFIDENTIAL, DO NOT COPY WITHOUT APPROPRIATE AUTHORIZATION. <Electronically signed in Other Vendor System> SIGNED BY: JOSIE BLANC MD 12/01/16 0007 Disposition Summary Disposition Principal Diagnosis: Osteomyelitis Extensive decubitus ulcer Additional Diagnosis: Paraplegia suprapubic cath Anemia Discharge Disposition: SNF Discharge Instructions General Discharge Information Code Status: Do Not Resucitate/Intubat Patient's Diet: diabetic Patient's Activity: as tolerated Follow-Up Instructions/Appts: -Please follow-up with your primary care provider within 7 days after discharge. -We have made changes to your home medications, please read the instructions carefully. -Please come back to the hospital if your symptoms got worse. -You will be on IV antibiotics (daptomycin) for 4 weeks. Please have the following blood work done once a week on mondays and sent to your PCP and Dr Farmer: CBC. CPK and ESR Copies To: RAFAL MULLIGAN,ZOLTAN; KELSEY MULLIGAN,SLIM Avalos; ARPAN MULLIGAN,SLIM Edmonds Attending MD Review Statement Documenting Attending: SETH MULLIGAN,JEANNIE REDMAN Acetaminophen (Acephen) 650 MG SUPP.RECT 1 SUPPOSITORY RECTALLY Q4H as needed for PAIN/TEMP>/100 Comments: NOT GIVEN IN HOSPITAL Acetaminophen (Acetaminophen) 325 MG CAPSULE 2 Capsule ORAL Q4H as needed for PAIN/TEMP>/100 Comments: Last Taken:NOT GIVEN IN HOSPITAL Time: Magnesium Hydroxide (Milk Of Magnesia) 400 MG/5 ML ORAL.SUSP 30 Milliliters ORAL DAILY as needed for CONSTIPATION Comments: NOT GIVEN IN HOSPITAL Amino Acids/Protein Hydrolys (Pro-Stat Profile Liquid) (Unknown Strength) LIQUID 30 Milliliters ORAL 1600 Comments: PROSTAT Benazepril HCl (Benazepril HCl) 5 MG TABLET 10 Milligram ORAL DAILY Comments: PER [facility] Sennosides/Docusate Sodium (Senna Laxative Tablet) 8.6 MG-50 MG TABLET 2 Tablet ORAL DAILY Comments: PER [facility] Allopurinol (Allopurinol) 100 MG TABLET 1 Tablet ORAL DAILY Comments: PER [facility] Calcium Carbonate/Vitamin D3 (Os-Tyrese 500+D3 Caplet) 500 MG-200 TABLET 1 Tablet ORAL TWICE DAILY Comments: PER [facility] Ascorbate Calcium (Vitamin C) 500 MG TABLET 1 Tablet ORAL TWICE DAILY Comments: PER [facility] Ergocalciferol (Vitamin D2) (Vitamin D2) 50,000 UNIT CAPSULE 1 Capsule ORAL ONCE A MONTH Comments: THE OF THE MONTH PER [facility] Ipratropium/Albuterol Sulfate (Iprat-Albut 0.5-3(2.5) MG/3 Ml) 0.5 MG-3 MG (2.5 MG BASE)/3 ML AMPUL.NEB 1 VIAL Inhale through mouth THREE TIMES DAILY Comments: PER [facility] Levetiracetam (Keppra) 500 MG TABLET 1 Tablet ORAL TWICE DAILY Comments: PER [facility] Mv-Mn/FA/Vit K1/Lycop/Lut/Zeax (Ocuvite Eye + Multi Tablet) (Unknown Strength) TABLET 1 Tablet ORAL 1600 Comments: PER [facility] A THROUGH Z ADVANCED Docusate Sodium (Stool Softener) 100 MG CAPSULE 1 Capsule ORAL 1600 Comments: PER [facility] Citalopram Hydrobromide (Citalopram HBr) 20 MG TABLET 1 Tablet ORAL 1600 Comments: PER [facility] Donepezil HCl (Aricept) 10 MG TABLET 1 Tablet ORAL TAKE AT BEDTIME Comments: PER [facility] Memantine HCl (Namenda XR) 28 MG CAP.SPR.24 1 Capsule ORAL 1999 Comments: PER [facility] Insulin Detemir (Levemir) 100 UNIT/ML VIAL 20 Units Inject into fatty tissue TAKE AT BEDTIME Comments: HOLD IF BLOOD GLUCOSE < 100 AND PT NOT EATING AT DINNER PER DEC Mirtazapine (Remeron) 15 MG TAB.RAPDIS 7.5 Milligram ORAL TAKE AT BEDTIME Comments: PER [facility] Atorvastatin Calcium (Lipitor) 10 MG TABLET 1 Tablet ORAL 1999 Comments: PER [facility] Na Phos,M-B/Na Phos,Di-Ba (Fleet Enema) 19 GRAM-7 GRAM/118 ML ENEMA 1 Enema RECTAL DAILY as needed for CONSTIPATION Comments: PER [facility] Trazodone HCl (Trazodone HCl) 50 MG TABLET 0.5 Milligram ORAL Q12H as needed for ANXIETY Comments: PER [facility] Start taking the following new medications: DAPTOmycin (DAPTOmycin) 500 MG VIAL 500 Milligram INTRAVEN DAILY Days = 26 No Refills Oxybutynin Chloride (Oxybutynin Chloride ER) 15 MG TAB.ER.24 2 Tablet ORAL DAILY Days = 30 No Refills Copies To: RAFAL MULLIGAN,ZOLTAN; KELSEY MULLIGAN,SLIM Avalos; ARPAN MULLIGAN,SLIM Edmonds
--- NOTE | 2016-11-30 13:55 | Event Note ---
Event Note Event Note: For dysfunctiol Suprapubic Chatether.Urology consult was placed with office. Dr Rustam Tripp [phone] is the covering physician. Per consultation with Dr. tripp I changed the suprapubic. For any complications Dr. CUELLAR is paint [employer] during the weekend
[2016-11-30 15:16] VITALS: BP 130/62
--- NOTE | 2016-11-30 16:35 | Cons- Infect Disease ---
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, status post a four-week course of Unasyn, which was completed 9 days prior to admission, with no change in his ESR (125 near the end of his course), status post diverting colostomy and suprapubic cystostomy 3 weeks prior to admission after pulmonary clearance, requested because of a chronic cough due to poor mucociliary clearance, with postop course complicated by urethral clots and drainage, requiring CBI through a three-way [place], and leakage around the suprapubic tube, admitted on November 29 because of an elevated white blood cell count, with continual leakage around the suprapubic tube and a chronic cough. On admission he was afebrile. Laboratory data revealed a white blood cell count of 23,000, BUN/creatinine 17 and 0.7, alk phosphatase 149. Urinalysis 1-3 RBC/ 50-75 WBCs. Chest x-ray revealed opacity in the posterior left lung. CT of the chest revealed mucus within the left mainstem bronchus, with mild centrilobular and paraseptal emphysema; mild atelectasis in the dependent aspect of the right lower lobe and lingula, with chronic, mild volume loss of the left lower lobe, not changed from previous study. He was begun on Vancomycin and Ceftazidime. Today one blood culture was reported positive for gram-positive cocci in pairs and chains and his urine culture is positive for greater than 100,000 colonies of gram-negative rods. He has remained afebrile since admission. At present he continues to report leakage around his suprapubic tube and urethral drainage. Allergies/Medications Allergies: Coded Allergies: NO KNOWN ALLERGIES (10/18/16) Home Med List: Acetaminophen 325 MG CAPSULE 2 CAP PO Q4H PRN PAIN/TEMP>/100 (Reported) Acetaminophen (Acephen) 650 MG SUPP.RECT 1 SUPP OH Q4H PRN PAIN/TEMP>/100 ( Reported) Allopurinol 100 MG TABLET 1 TAB PO DAILY GOUT (Reported) Amino Acids/Protein Hydrolys (Pro-Stat Profile Liquid) (Unknown Strength) LIQUID 30 ML PO 1600 SUPPLEMENT (Reported) Ascorbate Calcium (Vitamin C) 500 MG TABLET 1 TAB PO BID SUPPLEMENT (Reported ) Aspirin (Children's Aspirin) 81 MG TAB.CHEW 1 TAB PO DAILY HEART/BLOOD ( Reported) Atorvastatin Calcium (Lipitor) 10 MG TABLET 1 TAB PO 2000 CHOLESTEROL ( Reported) Benazepril HCl 5 MG TABLET 10 MG PO DAILY BP (Reported) Calcium Carbonate/Vitamin D3 (Os-Tyrese 500+D3 Caplet) 500 MG-200 TABLET 1 TAB PO BID SUPPLEMENT (Reported) Citalopram Hydrobromide (Citalopram HBr) 20 MG TABLET 1 TAB PO 1600 MENTAL HEALTH (Reported) Docusate Sodium (Stool Softener) 100 MG CAPSULE 1 CAP PO 1600 GI (Reported) Donepezil HCl (Aricept) 10 MG TABLET 1 TAB PO QHS MEMORY (Reported) Ergocalciferol (Vitamin D2) (Vitamin D2) 50,000 UNIT CAPSULE 1 CAP PO Q30D SUPPLEMENT (Reported) Insulin Detemir (Levemir) 100 UNIT/ML VIAL 20 UNITS SC QHS DM (Reported) Ipratropium/Albuterol Sulfate (Iprat-Albut 0.5-3(2.5) MG/3 Ml) 0.5 MG-3 MG (2.5 MG BASE)/3 ML AMPUL.NEB 1 VIAL INH TID RESPIRATORY (Reported) Levetiracetam (Keppra) 500 MG TABLET 1 TAB PO BID SEIZURE (Reported) Magnesium Hydroxide (Milk Of Magnesia) 400 MG/5 ML ORAL.SUSP 30 ML PO DAILY PRN CONSTIPATION (Reported) Memantine HCl (Namenda XR) 28 MG CAP.SPR.24 1 CAP PO 2000 MEMORY (Reported) Mirtazapine (Remeron) 15 MG TAB.RAPDIS 7.5 MG PO QHS MENTAL HEALTH (Reported) Mv-Mn/FA/Vit K1/Lycop/Lut/Zeax (Ocuvite Eye + Multi Tablet) (Unknown Strength) TABLET 1 TAB PO 1600 SUPPLEMENT (Reported) Na Phos,M-B/Na Phos,Di-Ba (Fleet Enema) 19 GRAM-7 GRAM/118 ML ENEMA 1 E RC DAILY PRN CONSTIPATION (Reported) Sennosides/Docusate Sodium (Senna Laxative Tablet) 8.6 MG-50 MG TABLET 2 TAB PO DAILY GI (Reported) Trazodone HCl 50 MG TABLET 0.5 MG PO Q12H PRN ANXIETY (Reported) Past History Travel History Traveled to [place] past 21 day No Medical History Blood Transfusion Hx: Yes Neurological: PARAPLEGIA STATUS POST SPINAL SHOCK POSTOP EENT: NONE Cardiovascular: CAD, hypertension, hyperlipidemia, ABDOMINAL ANEURYSM Respiratory: asthma Gastrointestinal: GERD Hepatic: NONE Renal: neurogenic bladder, UTI Musculoskeletal: decubitis ulcer (OSTEOMYELITIS) Psychiatric: anxiety, depression Endocrine: DIABETES TYPE 2 Blood Disorders: NONE Cancer(s): prostate cancer CART DRIVER/Reproductive: NONE History of MRSA: Yes History of VRE: No History of CDIFF: No Isolation History: Contact Influenza Vaccine: 09/04/16 Surgical History Surgical History: CABG, AAA repair x2 once 2002, and 2013, status post diverting colostomy, status post suprapubic cystostomy Family History Relations & Conditions If Any: MOTHER FH: coronary artery disease FH: diabetes mellitus BROTHER FH: diabetes mellitus SISTER Psychosocial History Where Do You Live? [facility]) Services at Home: Home Health Aide, Nursing Primary Language: Malawian Smoking Status: Never Smoked ETOH Use: denies use Illicit Drug Use: denies illicit drug use Functional Ability ADLs Independent: eating. Needs Assist: dressing, toileting, bathing. Ambulation: non-ambulatory IADLs Needs Assist: shopping, housework, finances, food prep, telephone, transportation, medication admin. Review of Systems Review of Systems Respiratory: Reports: cough (chronic). GI: Reports: nausea (prior to admission). Denies: vomiting. All Other Systems: Reviewed and Negative Exam & Diagnostic Data Last 24 Hrs of Vital Signs/I&O Vital Signs Date Time Temp Pulse Resp B/P Pulse O2 O2 Flow FiO2 Ox Delivery Rate 11/30 1516 98.1 101 20 130/62 98 11/30 1202 Room Air Room Air 11/30 0938 110/50 11/30 0627 99.7 85 20 110/50 96 Room Air 11/29 2259 94 Room Air 11/295 97.4 99 20 120/64 94 11/29 2022 98.2 91 18 119/59 96 Room Air Room Air 11/29 1723 99.9 103 18 127/57 95 Nasal 2.0L Cannula Intake & Output 11/30 1600 11/30 0800 11/30 0000 Intake Total 360 240 240 Output Total 200 350 150 Balance 160 -110 90 Intake, Oral 360 240 240 Number 1 1 Bowel Movements Output, Urine 200 350 150 Patient 182 lb Weight Physical Exam Other Physical Findings: He is awake and alert in no acute distress. He is afebrile. Skin reveals no rash. HEENT exam is negative. Neck is supple with no adenopathy. Lungs are clear. Heart regular rhythm with no murmur. Abdomen is soft, nontender with positive bowel sounds; suprapubic tube site with minimal erythema and no active drainage. Back sacral decubitus with some exudate and minimal necrosis, with no purulence or surrounding erythema; left buttock decubitus clean with no purulence or surrounding erythema. Extremities no cyanosis, clubbing or edema. Neuro paraplegia. Last 24 Hours of Lab Results: Laboratory Tests 11/30 Chemistry Sodium (137 - 145 mmol/L) 134 L Potassium (3.5 - 5.1 mmol/L) 4.5 Chloride (98 - 107 mmol/L) 98 Carbon Dioxide (22 - 30 mmol/L) 25 Anion Gap (5 - 16) 11 BUN (9 - 20 mg/dL) 17 Creatinine (0.7 - 1.2 mg/dL) 0.7 Estimated GFR (>60 ml/min) > 60 BUN/Creatinine Ratio (7 - 25 %) 24.3 Lactic Acid (0.7 - 2.1 mmol/L) 2.1 Hematology CBC w Diff NO MAN DIFF REQ WBC (4.8 - 10.8 /CUMM) 19.5 H RBC (4.70 - 6.10 /CUMM) 3.15 L Hgb (14.0 - 18.0 G/DL) 8.4 L Hct (42 - 52 %) 26.2 L MCV (80.0 - 94.0 FL) 83.2 MCH (27.0 - 31.0 PG) 26.7 L RDW (11.5 - 14.5 %) 19.1 H Plt Count (130 - 400 /CUMM) 594 H MPV (7.4 - 10.4 FL) 7.7 Gran % (42.2 - 75.2 %) 82.4 H Lymphocytes % (20.5 - 51.1 %) 5.9 L Monocytes % (1.7 - 9.3 %) 10.4 H Eosinophils % (0 - 5 %) 1.1 Basophils % (0.0 - 2.0 %) 0.2 Absolute Granulocytes (1.4 - 6.5 /CUMM) 16.0 H Absolute Lymphocytes (1.2 - 3.4 /CUMM) 1.2 Absolute Monocytes (0.10 - 0.60 /CUMM) 2.0 H Absolute Eosinophils (0.0 - 0.7 /CUMM) 0.2 Absolute Basophils (0.0 - 0.2 /CUMM) 0 PUBS MCHC (33.0 - 37.0 G/DL) 32.1 L 11/29 1752 Chemistry Sodium (137 - 145 mmol/L) 132 L Potassium (3.5 - 5.1 mmol/L) 4.7 Chloride (98 - 107 mmol/L) 94 L Carbon Dioxide (22 - 30 mmol/L) 24 Anion Gap (5 - 16) 14 BUN (9 - 20 mg/dL) 17 Creatinine (0.7 - 1.2 mg/dL) 0.7 Estimated GFR (>60 ml/min) > 60 BUN/Creatinine Ratio (7 - 25 %) 24.3 Glucose (65 - 99 mg/dL) 155 H Lactic Acid (0.7 - 2.1 mmol/L) 1.8 Calcium (8.4 - 10.2 mg/dL) 9.2 Total Bilirubin (0.2 - 1.3 mg/dL) 0.5 AST (17 - 59 U/L) 18 ALT (21 - 72 U/L) 26 Alkaline Phosphatase (< 127 U/L) 149 H Troponin I (<0.11 ng/ml) < 0.01 Total Protein (6.3 - 8.2 g/dL) 7.4 Albumin (3.5 - 5.0 g/dL) 3.1 L Globulin (1.9 - 4.2 gm/dL) 4.3 H Albumin/Globulin Ratio (1.1 - 2.2 %) 0.7 L Hematology CBC w Diff MAN DIFF ORDERED WBC (4.8 - 10.8 /CUMM) 22.7 H RBC (4.70 - 6.10 /CUMM) 3.31 L Hgb (14.0 - 18.0 G/DL) 8.8 L Hct (42 - 52 %) 27.3 L MCV (80.0 - 94.0 FL) 82.6 MCH (27.0 - 31.0 PG) 26.7 L RDW (11.5 - 14.5 %) 19.3 H Plt Count (130 - 400 /CUMM) 606 H MPV (7.4 - 10.4 FL) 7.3 L Gran % (42.2 - 75.2 %) 86.8 H Lymphocytes % (20.5 - 51.1 %) 3.6 L Monocytes % (1.7 - 9.3 %) 9.0 Eosinophils % (0 - 5 %) 0.4 Basophils % (0.0 - 2.0 %) 0.2 Absolute Granulocytes (1.4 - 6.5 /CUMM) 19.7 H Absolute Lymphocytes (1.2 - 3.4 /CUMM) 0.8 L Absolute Monocytes (0.10 - 0.60 /CUMM) 2.0 H Absolute Eosinophils (0.0 - 0.7 /CUMM) 0.1 Absolute Basophils (0.0 - 0.2 /CUMM) 0.1 Platelet Estimate (ADEQUATE) INCREASED Polychromasia 1+ Poikilocytosis 1+ Anisocytosis 1+ Stomatocytes FEW PUBS MCHC (33.0 - 37.0 G/DL) 32.3 L Urines Urine Color (YEL,AMB,STR) YEL Urine Clarity (CLEAR) HAZY H Urine pH (5.0 - 8.0) 6.0 Ur Specific [place] (1.001 - 1.035) 1.010 Urine Protein (NEG,<30 MG/DL) 30 H Urine Ketones (NEG) NEG Urine Nitrite (NEG) POS H Urine Bilirubin (NEG) NEG Urine Urobilinogen (0.1 - 1.0 EU/dl) 0.2 Ur Leukocyte Esterase (NEG) MOD H Ur Microscopic SEDIMENT EXAMINED Urine RBC (0 - 5 /HPF) 1-3 Urine WBC (0 - 2 /HPF) 50-75 H Granular Casts (NONE /LPF) 1-3 H Urine Hemoglobin (NEG) TRACE-INTACT H Urine Glucose (N MG/DL) NEG Last 24 Hours of Perfecto Results: Blood cultures November 29 one bottle positive for gram-positive cocci in pairs and chains Urine culture November 29 greater than 100,000 colonies of gram negative rods Rapid flu swab November 29 negative Urine strep pneumo antigen November 29 negative Diagnostic Data Recent Imaging Findings: Chest x-ray, personally reviewed, revealed a minimal opacity in the posterior left lung. CT of the chest revealed mucus within the left mainstem bronchus, with mild centrilobular and paraseptal emphysema; mild atelectasis in the dependent aspect of the right lower lobe and lingula, with chronic, mild volume loss of the left lower lobe, not changed from previous study. Assessment/Plan Assessment/Plan Impression: This is a 71-year-old man with paraplegia, with a chronic sacral decubitus, status post a recent course of antibiotics for osteomyelitis, completed 9 days prior to admission, with no change in his ESR, and status post diverting colostomy and suprapubic cystostomy 3 weeks prior to admission, with leakage around the suprapubic tube and from the urethra since then, admitted on November 29 for further evaluation of a chronic cough and leukocytosis, found to be afebrile with a leukocytosis, with one positive blood culture for gram-positive cocci in pairs and chains and with the urine culture positive for greater than 100,000 colonies of gram-negative rods. Given his elevated white blood cell count he likely has an underlying infection. He does not appear to have pneumonia, with a CT scan of the chest negative for any evidence of consolidation; therefore the most likely source appears to be the urine, with leakage around the suprapubic tube and from the urethra. This would explain the positive urine culture, but not the positive blood culture. This could be from the sacral decubitus, though there is little surrounding inflammation, and residual osteomyelitis is possible, particularly with his persistently elevated ESR. Alternatively the positive blood culture could represent a contaminant and will need to await the identification of the blood culture. Note his bone culture did grow alpha strep, along with other organisms, but this is a common contaminant. Suggestion: 1. CT of the abdomen and pelvis with IV contrast 2. Urology evaluation 3. Follow-up recent cultures 4. Continue Vancomycin, but decrease to 1 g IV every 12 hours, and Ceftazidime 1 g IV every 8 hours pending above Edyta Kessler MD will be covering me until December 10 Consult Acknowledgment - Thank you for your consult request.
[2016-11-30 22:57] VITALS: BP 110/60
--- NOTE | 2016-12-01 00:07 | CT SCAN REPORT ---
EXAMINATION: CT ABDOMEN AND PELVIS WITH CONTRAST CLINICAL INFORMATION: Chronic sacral decubitus ulcer. Evaluate for abscess. COMPARISON: CT abdomen and pelvis dated 01/20/2015 TECHNIQUE: Multidetector volumetric imaging was performed of the abdomen and pelvis before and after the IV administration of 94 mL of Optiray 320 intravenous contrast. Sagittal and coronal reformatted images were obtained on the technologist's workstation. DLP: 631.85 mGy-cm FINDINGS: LUNG BASES: Bibasilar atelectatic changes noted again, left greater than right. Somewhat similar appearance seen on the prior examination. Atherosclerotic disease of the distal descending aorta similar to the previous examination with wall thrombus and intimal calcification. LIVER, GALLBLADDER, AND BILIARY TREE: Subtle low-attenuation adjacent to the falciform ligament likely representing transient hepatic attenuation difference similar to the prior study. Status post cholecystectomy. No evidence of biliary ductal dilatation. PANCREAS: Unremarkable. SPLEEN: Lobulated spleen. Stable subcapsular low-attenuation noted along the outer aspect with associated subtle calcific appearing peripheral hyperdensity . ADRENAL GLANDS: Unremarkable. KIDNEYS AND URETERS: Multiple low-attenuation renal cortical lesions noted again. Dominant cyst upper pole right kidney demonstrates slight interval decrease measuring 3.7 x 2.5 cm compared to 4.2 x 3.3 cm. Previously seen smaller exophytic hyperdense cystic lesion outer aspect right kidney demonstrates interval increase in size now measuring approximately 2.2 x 1.6 cm compared to 1.4 cm. Additional low-attenuation bilateral cortical lesions also demonstrate slight interval increase. Interval increase in the cortical thinning of the left kidney. Decreased size of the right kidney compatible with atrophy. BLADDER: Percutaneous bladder catheter. Thick-walled appearance urinary bladder. GASTROINTESTINAL TRACT: Postoperative changes with Morton's pouch. Left-sided colostomy. Colonic diverticulosis. Mildly thick-walled rectoanal junction. Abnormal soft tissue thickening posterior to the rectum extending to the gluteal cleft. ABDOMINAL WALL: No evidence of parastomal hernia. LYMPH NODES: No gross lymphadenopathy. 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 Atherosclerotic disease. PELVIS: Decubitus ulceration with pocket of air surrounded by soft tissue thickening noted in the left posterior ischial region. Adjacent posterior ischiopubic junction demonstrates subtle cortical lucency raising the possibility of associated osteomyelitis. Somewhat similar appearance was also seen on the prior examination. Stranding and soft tissue thickening noted in the presacral fat. OSSEOUS STRUCTURES: Decubitus ulcer at the level of the coccyx with nonvisualization of the coccygeal bones. This presents a new finding. Associated osteomyelitis of the S5 vertebra cannot be excluded. Decubitus ulcer is also in close proximity to the left ischial pubic junction. Again, adjacent osteomyelitis is difficult to exclude. IMPRESSION: 1. Large decubitus ulcer with adjacent soft tissue thickening extending to the posterior perirectal region. Abnormal soft tissue thickening and air pocket also abutting the left ischiopubic junction. Abnormal soft tissue and ulceration abutting the left ischiopubic junction and the S5 vertebra. Adjacent osteomyelitis cannot be excluded. No gross evidence of abscess formation. 2. Interval absence of the coccygeal bones. This may represent a postsurgical change. Clinical correlation recommended. 3. Left basilar atelectasis. 4. Splenic subcapsular low-attenuation with no significant interval change. 5. Interval decrease in the dominant right upper pole renal cyst. Remaining low-attenuation renal lesions demonstrate slight interval increase. Interval increase in the left renal atrophy. 6. Thick-walled urinary bladder with percutaneous catheter.
[2016-12-01 07:02] VITALS: BP 120/58
[2016-12-01 08:29] LABS: ABSOLUTE BASOPHIL COUNT 0 /CUMM (0.0-0.2); ABSOLUTE EOSINOPHIL COUNT 0.4 /CUMM (0.0-0.7); ABSOLUTE GRANULOCYTE CT 14.4 /CUMM (1.4-6.5); ABSOLUTE MONOCYTE COUNT 1.4 /CUMM (0.10-0.60); BASOPHIL % 0.2 % (0.0-2.0); EOSINOPHIL % 2.3 % (0-5); GRANULOCYTE % 83.4 % (42.2-75.2); MEAN CORPUSCULAR HGB 26.6 PG (27.0-31.0); MEAN CORPUSCULAR HGB CONC 31.7 G/DL (33.0-37.0); MEAN CORPUSCULAR VOLUME 83.8 FL (80.0-94.0); MEAN PLATELET VOLUME 7.5 FL (7.4-10.4); PLATELET COUNT 599 /CUMM (130-400); RBC DISTRIBUTION WIDTH 19.3 % (11.5-14.5); RED BLOOD CELL CT 3.23 /CUMM (4.70-6.10)
--- NOTE | 2016-12-01 09:42 | PN- Att Addend ---
Attending Addendum Attending Brief Note Covering Attn Note Min cough , still incontinent o urine Large sacral decubitus . S1 S 2 N Lungs exp wheezing Abd soft non tender BS + ct IV VANCO and IV Ceftazadine
[2016-12-01 11:27] LABS: WHITE BLOOD CELL COUNT 17.3 /CUMM (4.8-10.8)
--- NOTE | 2016-12-01 13:40 | PN- Housestaff ---
Subjective Follow-up For: Pneumonia Subjective: Patient is seen and examined at bedside. He was having breakfast when he was examined. Patient does not endorse any acute complaints including chest pain, palpitation, shortness of breath, dizziness, fever, chills, increased cough, abdominal pain or dysuria. No acute overnight event reported by nursing staff. Review of Systems Constitutional: Reports: no symptoms. Objective Last 24 Hrs of Vital Signs/I&O Vital Signs Date Time Temp Pulse Resp B/P Pulse O2 O2 Flow FiO2 Ox Delivery Rate 12/01 1500 98.3 100 22 160/70 93 Room Air 12/01 1029 120/58 12/01 0819 95 Room Air 12/01 0702 98.2 94 18 120/58 94 Room Air 12/01 0000 97 Room Air 11/30 2257 97.7 69 20 110/60 97 Room Air 11/30 2047 94 Room Air Intake & Output 12/01 1600 12/01 0800 12/01 0000 Intake Total 900 100 500 Output Total 400 150 100 Balance 500 -50 400 Intake, IV 300 250 Intake, Oral 600 100 250 Number 1 Bowel Movements Output, Stool 100 Output, Urine 400 50 100 Patient 87.997 kg Weight Physical Exam General Appearance: Alert, Oriented X3, Cooperative Other Physical Findings: Throat/mouth: Moist mucosa Neck: Supple, full range of motion, no thyromegaly Heart: Regular rate, regular rhythm Lung: Normal breath sound bilaterally Abd: Soft, non-tender, no distention appreciated, has no sensation chest down, suprapubic catheter in situ, no surrounding erythema or discharge Back: Normal range of motion, Extremities: Normal knee exam bilaterally, no pedal edema. Neurologic: Alert, oriented x3, Cranial exam grossly intact, patient is paraplegic and has no sensation chest down Skin: Sacral wound 10 x 10 cm with large area of exposed bone. Rectal ulcer measuring 5 x 5 cm undermined. Both present on admission. Current Medications: Current Medications Sig/Mey Start time Last Medication Dose Route Stop Time Status Admin Acetaminophen 650 MG Q6P PRN 11/29 2030 AC PO Albuterol Sulfate 3 ML TID 11/30 1600 AC 12/01 INH 0815 Allopurinol 100 MG DAILY 11/30 1000 AC 12/01 PO 1028 Atorvastatin Calcium 10 MG 2000 11/30 1999 AC 11/30 PO 2016 Ceftazidime 1,000 MG Q8H 11/30 0400 AC 12/01 IV 1304 Citalopram 20 MG 1600 11/30 1600 AC 11/30 Hydrobromide PO 1711 Donepezil HCl 10 MG DAILY 11/30 1000 AC 12/01 PO 1029 Enoxaparin Sodium 40 MG 2200 11/29 2200 AC 11/30 SC 2211 Guaifenesin 10 ML .STK-MED ONE 11/30 2207 DC PO 11/30 2208 Guaifenesin 10 ML Q6P PRN 11/29 2345 AC 11/30 PO 0031 Ibuprofen 600 MG Q6P PRN 11/29 2030 AC PO Insulin Aspart 0 TIDAC 11/30 0800 AC 12/01 SC 1304 Ipratropium [place] 2.5 ML TID 11/30 1600 AC 12/01 INH 0816 Levetiracetam 500 MG BID 11/29 2241 AC 12/01 PO 1029 Lisinopril 10 MG DAILY 11/30 1000 AC 12/01 PO 1029 Memantine 10 MG BID 11/30 1000 AC 12/01 PO 1029 Mirtazapine 7.5 MG AT BEDTIME NEED.. 11/30 2199 AC PO Oxycodone HCl 10 MG Q6P PRN 11/29 2030 AC 12/01 PO 1030 Senna/Docusate Sodium 2 TAB DAILY 11/30 1000 AC 12/01 PO 1028 Sodium Hypochlorite 1 HILARIA BID 11/30 1000 AC 12/01 TOP 1029 Trazodone HCl 25 MG Q12P PRN 11/29 2245 AC 11/30 PO 0121 Vancomycin HCl 1,000 MG BID 11/30 2200 AC 12/01 Dextrose/Water 250 ML IV 1029 Vancomycin HCl 1,250 MG BID 11/30 1000 DC 11/30 Dextrose/Water 250 ML IV 0938 Last 24 Hrs of Lab/Perfecto Results Last 24 Hrs of Labs/Mics: Laboratory Tests 12/01/16 0655: Anion Gap 11, Estimated GFR > 60, BUN/Creatinine Ratio 23.8, CBC w Diff NO MAN DIFF REQ, RBC 3.23 L, MCV 83.8, MCH 26.6 L, RDW 19.3 H, MPV 7.5, Gran % 83.4 H, Lymphocytes % 5.9 L, Monocytes % 8.2, Eosinophils % 2.3, Basophils % 0.2, Absolute Granulocytes 14.4 H, Absolute Lymphocytes 1.0 L, Absolute Monocytes 1.4 H, Absolute Eosinophils 0.4, Absolute Basophils 0, PUBS MCHC 31.7 L Assessment/Plan Assessment: Mr. 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, currently with an indwelling suprapubic catheter, non-healing sacral decubitus ulcer, diabetes mellitus, hyperlipidemia, coronary artery disease, hypertension, GERD, anxiety and depression who was brought in by ambulance to the [place] ED from extended care facility wdue to leukocytosis and cough. In the ED: Vital signs showed T 99.9, HR 103, RR 18, BP 127/57 and O2 saturation of 95% on 2L NC. His lab was significant for leukocytosis 22.7 an increase from 18 on 11/26/2016, his usual for leukocytosis at 606, H&H 8.8/27.3, sodium 132, potassium 4.7, BUN 17, creatinine 0.7 and sugar at 155. Lactic acid 1.8. CXR was done and showed left-sided airspace disease. Patient is admitted to the general medicine floor and the following is the management: 1. Leukocytosis, unknown source * Sources of infection include: Left-sided gram negative pneumonia, urinary ( chronic indwelling catheter), decubitus ulcer * Initial CXR showed likely left sided airspace disease * Switched vancomycin 1 g every 12 and ceftazi every 8 hours per ID recommended * Repeat CT chest shows no signs of acute PNA, pleural effusion or LAD so we will follow ID recommendations on antibiotic coverage and thoughts on source of infection * 1 of 2 initial BC shows gram positive cocci, follow up final results * Urine culture shows gram negative rods, however consider contamination * Robitussin PRN for cough 2. Suprapubic catheter * Suprapubic catheter needed s/p paraplegia * Urine culture currently show gram negative rods * Noted that patient wets the bed continuously, will discuss with uro need to change catheter 3. Decubitus ulcer * Stage 4 decubitus ulcer present on admission along with rectal ulcer as noted by Dr. Guzman (wound consult appreciated) * No current wound vac in place due to masseration * Follow up plastic surgery consult with Dr. Hauser * Dressing with quarter strength Dakin's moistened gauze changed twice daily * Offloading mattress ordered 4. DM * Continue NSS TIDAC * Accuchecks 5. Seizure history * Continue keppra 500 mg PO BID 6. HTN, HLD * Lipitor 10 mg PO daily * Lisinopril 10 mg PO daily 7. Bipolar depression * Continue celexa and trazodone * Aricept 10 mg PO daily * Continue remeron 7.5 mg PO QPM DNR/DNI Diet: CC2 Mild pain pathway DVTP: SC Lovenox Problem List: 1. Decubitus ulcer 2. Pneumonia Pain Ratin Pain Location: NONE Pain Goal: Remain pain free Pain Plan: Acetaminophen for mild pain Oxycodone for moderate to severe pain Tomorrow's Labs & Rationales: bep-on vancomycin CBC-leukocytosis
[2016-12-01 15:00] VITALS: BP 160/70
--- NOTE | 2016-12-01 15:02 | PN- Infect Dx ---
Subjective Subjective: No fever. Cough. No abdominal pain. Review of Systems Comments: 10 points reviewed as noted, otherwise negative. Objective Last 24 Hrs of Vital Signs/I&O Vital Signs Date Time Temp Pulse Resp B/P Pulse O2 O2 Flow FiO2 Ox Delivery Rate 12/01 1029 120/58 12/01 0819 95 Room Air 12/01 0702 98.2 94 18 120/58 94 Room Air 12/01 0000 97 Room Air 11/30 2257 97.7 69 20 110/60 97 Room Air 11/30 2047 94 Room Air 11/30 1516 98.1 101 20 130/62 98 Intake & Output 12/01 1600 12/01 0800 12/01 0000 Intake Total 900 100 500 Output Total 100 150 100 Balance 800 -50 400 Intake, IV 300 250 Intake, Oral 600 100 250 Number 1 Bowel Movements Output, Stool 100 Output, Urine 100 50 100 Physical Exam Other Physical Findings: He is awake and alert in no acute distress. He is afebrile. Skin reveals no rash. HEENT exam is negative. Neck is supple with no adenopathy. Lungs are clear. Heart regular rhythm with no murmur. Abdomen is soft, nontender with positive bowel sounds; suprapubic tube site with minimal erythema and no active drainage, L colostomy. Back sacral decubitus with some exudate and minimal necrosis, with no purulence or surrounding erythema; left buttock decubitus clean with no purulence or surrounding erythema. Extremities no cyanosis, clubbing or edema. Neuro paraplegia. Results Last 24 Hours of Lab Results: Laboratory Tests 12/01 0655 Chemistry Sodium (137 - 145 mmol/L) 137 Potassium (3.5 - 5.1 mmol/L) 4.4 Chloride (98 - 107 mmol/L) 97 L Carbon Dioxide (22 - 30 mmol/L) 29 Anion Gap (5 - 16) 11 BUN (9 - 20 mg/dL) 19 Creatinine (0.7 - 1.2 mg/dL) 0.8 Estimated GFR (>60 ml/min) > 60 BUN/Creatinine Ratio (7 - 25 %) 23.8 Hematology CBC w Diff NO MAN DIFF REQ WBC (4.8 - 10.8 /CUMM) 17.3 H RBC (4.70 - 6.10 /CUMM) 3.23 L Hgb (14.0 - 18.0 G/DL) 8.6 L Hct (42 - 52 %) 27.0 L MCV (80.0 - 94.0 FL) 83.8 MCH (27.0 - 31.0 PG) 26.6 L RDW (11.5 - 14.5 %) 19.3 H Plt Count (130 - 400 /CUMM) 599 H MPV (7.4 - 10.4 FL) 7.5 Gran % (42.2 - 75.2 %) 83.4 H Lymphocytes % (20.5 - 51.1 %) 5.9 L Monocytes % (1.7 - 9.3 %) 8.2 Eosinophils % (0 - 5 %) 2.3 Basophils % (0.0 - 2.0 %) 0.2 Absolute Granulocytes (1.4 - 6.5 /CUMM) 14.4 H Absolute Lymphocytes (1.2 - 3.4 /CUMM) 1.0 L Absolute Monocytes (0.10 - 0.60 /CUMM) 1.4 H Absolute Eosinophils (0.0 - 0.7 /CUMM) 0.4 Absolute Basophils (0.0 - 0.2 /CUMM) 0 PUBS MCHC (33.0 - 37.0 G/DL) 31.7 L Last 24 Hours of Perfecto Results: SPEC #: [id number] TIP: 11/29/16 STATUS: COMP RECD: 11/29/[address] SOURCE: URINE ROUT ENTR: 11/29/[address]: KELSEY MULLIGAN,SLIM Avalos SPDESC: COSMO ANN MD,[facility] ORDERED: URINE CULTURE COMMENT: TRIO Procedure Result > URINE CULTURE Final 12/01/16 Greater than 100,000 colonies per ml of: PSEUDOMONAS AERUGINOSA 1. PSEUDOMONAS AERUGINOSA RX AB ------ -- CEFTAZIDIME R # CIPROFLOXACIN S GENTAMICIN S IMIPENEM S SPEC #: [id number] TIP: 11/29/16 STATUS: COMP RECD: 11/29/[address]: TAMICA CHISHOLM SOURCE: BLOOD ENTR: 11/29/[address]: KELSEY MULLIGAN,SLIM Avalos SPDESC: 1ST/VENOUS ORDERED: BLOOD CULTURE Procedure Result > BLOOD CULTURE REPORT Final 12/01/16-951 GRAM STAIN SUGGESTIVE OF: GRAM POSITIVE COCCI IN PAIRS/CHAINS Called to/Readback by JAGDEEP/ by SAM 11/30/16 08/0815 BETA STREP GROUP G - ISOLATED Penicillin and Ampicillin are drugs of choice for beta-hemolytic streptococcal infections. Susceptibility testing of penicillins and other beta-lactams are not routinely performed because non-susceptible isolates have only rarely been reported. Note: If patient is allergic to Penicillin, the laboratory can perform Clindamycin testing upon request. Please call within 5 days of final report. Recent Imaging Studies: SERVICE DATE: 11/30/16- EXAM TYPE: CAT - CT ABD & PELVIS W IV CONTRAST EXAMINATION: CT ABDOMEN AND PELVIS WITH CONTRAST CLINICAL INFORMATION: Chronic sacral decubitus ulcer. Evaluate for abscess. COMPARISON: CT abdomen and pelvis dated 01/20/2015 TECHNIQUE: Multidetector volumetric imaging was performed of the abdomen and pelvis before and after the IV administration of 94 mL of Optiray 320 intravenous contrast. Sagittal and coronal reformatted images were obtained on the technologist's workstation. DLP: 631.85 mGy-cm FINDINGS: LUNG BASES: Bibasilar atelectatic changes noted again, left greater than right. Somewhat similar appearance seen on the prior examination. Atherosclerotic disease of the distal descending aorta similar to the previous examination with wall thrombus and intimal calcification. LIVER, GALLBLADDER, AND BILIARY TREE: Subtle low-attenuation adjacent to the falciform ligament likely representing transient hepatic attenuation difference similar to the prior study. Status post cholecystectomy. No evidence of biliary ductal dilatation. PANCREAS: Unremarkable. SPLEEN: Lobulated spleen. Stable subcapsular low-attenuation noted along the outer aspect with associated subtle calcific appearing peripheral hyperdensity . ADRENAL GLANDS: Unremarkable. KIDNEYS AND URETERS: Multiple low-attenuation renal cortical lesions noted again. Dominant cyst upper pole right kidney demonstrates slight interval decrease measuring 3.7 x 2.5 cm compared to 4.2 x 3.3 cm. Previously seen smaller exophytic hyperdense cystic lesion outer aspect right kidney demonstrates interval increase in size now measuring approximately 2.2 x 1.6 cm compared to 1.4 cm. Additional low-attenuation bilateral cortical lesions also demonstrate slight interval increase. Interval increase in the cortical thinning of the left kidney. Decreased size of the right kidney compatible with atrophy. BLADDER: Percutaneous bladder catheter. Thick-walled appearance urinary bladder. GASTROINTESTINAL TRACT: Postoperative changes with Morton's pouch. Left-sided colostomy. Colonic diverticulosis. Mildly thick-walled rectoanal junction. Abnormal soft tissue thickening posterior to the rectum extending to the gluteal cleft. ABDOMINAL WALL: No evidence of parastomal hernia. LYMPH NODES: No gross lymphadenopathy. 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 Atherosclerotic disease. PELVIS: Decubitus ulceration with pocket of air surrounded by soft tissue thickening noted in the left posterior ischial region. Adjacent posterior ischiopubic junction demonstrates subtle cortical lucency raising the possibility of associated osteomyelitis. Somewhat similar appearance was also seen on the prior examination. Stranding and soft tissue thickening noted in the presacral fat. OSSEOUS STRUCTURES: Decubitus ulcer at the level of the coccyx with nonvisualization of the coccygeal bones. This presents a new finding. Associated osteomyelitis of the S5 vertebra cannot be excluded. Decubitus ulcer is also in close proximity to the left ischial pubic junction. Again, adjacent osteomyelitis is difficult to exclude. IMPRESSION: 1. Large decubitus ulcer with adjacent soft tissue thickening extending to the posterior perirectal region. Abnormal soft tissue thickening and air pocket also abutting the left ischiopubic junction. Abnormal soft tissue and ulceration abutting the left ischiopubic junction and the S5 vertebra. Adjacent osteomyelitis cannot be excluded. No gross evidence of abscess formation. 2. Interval absence of the coccygeal bones. This may represent a postsurgical change. Clinical correlation recommended. 3. Left basilar atelectasis. 4. Splenic subcapsular low-attenuation with no significant interval change. 5. Interval decrease in the dominant right upper pole renal cyst. Remaining low-attenuation renal lesions demonstrate slight interval increase. Interval increase in the left renal atrophy. 6. Thick-walled urinary bladder with percutaneous catheter. DICTATED BY: JOSIE BLANC MD DATE/TIME DICTATED:11/30/162336 ELECTRONIC SCIENCE TEACHER:JANNA DATE/TIME TRANSCRIBED:11/30/162336 CONFIDENTIAL, DO NOT COPY WITHOUT APPROPRIATE AUTHORIZATION. <Electronically signed in Other Vendor System> SIGNED BY: JOSIE BALNC MD 12/01/167 Assessment/Plan Impression: Mr. 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 G); eval OM sacrum (Decubitus ulcer at the level of the coccyx with nonvisualization of the coccygeal bones; associated osteomyelitis of the S5 vertebra cannot be excluded) Leukocytosis Suggestion: 1. Monitor CBC, BMP, ESR, CRP. 2. If feasible MRI lumbar spine eval lumbar spine OM. Local wound care. 3. Would discontinue Vancomycin and Ceftazidime; start Zosyn 4.5 gm q 6 h; ask micro lab to run Ps. aeruginosa S to Zosyn. 4. Repeat BC x1 in am.
[2016-12-01 22:35] VITALS: BP 120/50
[2016-12-02 06:51] VITALS: BP 110/60
--- NOTE | 2016-12-02 08:00 | PN- Housestaff ---
Subjective Follow-up For: Pneumonia Stage IV decubitus Subjective: Patient is seen and examined bedside. He does not endorse any new acute complaints including chest pain, palpitation, shortness of breath, fever, chills , abdominal pain or dysuria. No acute overnight event reported by nursing staff. Review of Systems Constitutional: Reports: no symptoms. Objective Last 24 Hrs of Vital Signs/I&O Vital Signs Date Time Temp Pulse Resp B/P Pulse O2 O2 Flow FiO2 Ox Delivery Rate 12/02 1414 97.7 87 20 120/60 91 Room Air 12/02 0949 110/60 12/02 0929 92 Room Air Room Air 12/02 0651 98.1 86 16 110/60 93 Room Air 12/02 0000 Room Air 12/01 2235 98.6 90 22 120/50 93 Room Air 12/01 1925 95 Room Air 12/01 1500 98.3 100 22 160/70 93 Room Air Intake & Output 12/02 1600 12/02 0800 12/02 0000 Intake Total 500 250 550 Output Total 200 50 125 Balance 300 200 425 Intake, IV 100 100 Intake, Oral 500 150 450 Output, Urine 200 50 125 Physical Exam General Appearance: Alert, Oriented X3, Cooperative Other Physical Findings: Heart: Regular rate, regular rhythm Lung: Normal breath sound bilaterally Abd: Soft, non-tender, no distention appreciated, has no sensation chest down, suprapubic catheter in situ, no surrounding erythema or discharge Back: Normal range of motion, Extremities: Normal knee exam bilaterally, no pedal edema. Neurologic: Alert, oriented x3, Cranial exam grossly intact, patient is paraplegic and has no sensation chest down Skin: Sacral wound 10 x 10 cm with large area of exposed bone. Rectal ulcer measuring 5 x 5 cm undermined. Both present on admission. Assessment/Plan Assessment: Mr. 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 Patient is admitted to the general medicine floor and the following is the management: 1. Leukocytosis, unknown source * Sources of infection include: Left-sided gram negative pneumonia, urinary ( chronic indwelling catheter), decubitus ulcer * Initial CXR showed likely left sided airspace disease * Antibiotics changed to Zosyn 4.5 every 6 hours per ID recommendation ( appreciated) * Will obtain MRI of the lumbar spine to rule out for any was to mellitus ED recommended * Also repeat blood culture tomorrow morning per ID recommendation * Urine culture shows gram negative rods, however consider contamination * Robitussin PRN for cough 2. Suprapubic catheter * Suprapubic catheter needed s/p paraplegia * Urine culture currently show gram negative rods * Catheter changed 3 days ago 3. Decubitus ulcer * Stage 4 decubitus ulcer present on admission along with rectal ulcer as noted by Dr. Guzman (wound consult appreciated) * No current wound vac in place due to masseration * Follow up plastic surgery consult with Dr. Hauser * Dressing with quarter strength Dakin's moistened gauze changed twice daily * Offloading mattress ordered 4. DM * Continue NSS TIDAC * Accuchecks 5. Seizure history * Continue keppra 500 mg PO BID 6. HTN, HLD * Lipitor 10 mg PO daily * Lisinopril 10 mg PO daily 7. Bipolar depression * Continue celexa and trazodone * Aricept 10 mg PO daily * Continue remeron 7.5 mg PO QPM DNR/DNI Diet: CC2 Mild pain pathway DVTP: SC Lovenox Problem List: 1. Bacteremia 2. Pneumonia Pain Ratin Pain Location: Back Pain Goal: Remain pain free Pain Plan: Semi-for mild pain Oxycodone for moderate pain Hydromorphone for severe pain Tomorrow's Labs & Rationales: Blood cultures-trending bacteremia per ID recommended CBC-leukocytosis BEP-patient on Zosyn
[2016-12-02 09:21] LABS: ABSOLUTE BASOPHIL COUNT 0 /CUMM (0.0-0.2); ABSOLUTE EOSINOPHIL COUNT 0.8 /CUMM (0.0-0.7); ABSOLUTE GRANULOCYTE CT 11.7 /CUMM (1.4-6.5); ABSOLUTE LYMPH COUNT 1.5 /CUMM (1.2-3.4); ABSOLUTE MONOCYTE COUNT 1.4 /CUMM (0.10-0.60); BASOPHIL % 0.3 % (0.0-2.0); EOSINOPHIL % 5.4 % (0-5); GRANULOCYTE % 75.3 % (42.2-75.2); HEMATOCRIT 26.2 % (42-52); MEAN CORPUSCULAR HGB 26.6 PG (27.0-31.0); MEAN CORPUSCULAR HGB CONC 31.7 G/DL (33.0-37.0); MEAN CORPUSCULAR VOLUME 83.7 FL (80.0-94.0); MEAN PLATELET VOLUME 7.2 FL (7.4-10.4); PLATELET COUNT 622 /CUMM (130-400); RBC DISTRIBUTION WIDTH 19.3 % (11.5-14.5); RED BLOOD CELL CT 3.13 /CUMM (4.70-6.10); WHITE BLOOD CELL COUNT 15.5 /CUMM (4.8-10.8)
--- NOTE | 2016-12-02 09:43 | PN- Att Addend ---
Attending Addendum Attending Brief Note Covering attending note. Patient is comfortable has got mild cough with wheezing. No fever no chills Is still incontinent of urine in the the penis as well as on the pubic catheter. Laboratory Tests 12/02 0648 Chemistry Sodium (137 - 145 mmol/L) 137 Potassium (3.5 - 5.1 mmol/L) 4.9 Chloride (98 - 107 mmol/L) 98 Carbon Dioxide (22 - 30 mmol/L) 27 Anion Gap (5 - 16) 12 BUN (9 - 20 mg/dL) 27 H Creatinine (0.7 - 1.2 mg/dL) 0.8 Estimated GFR (>60 ml/min) > 60 BUN/Creatinine Ratio (7 - 25 %) 33.8 H Hematology CBC w Diff Pending WBC Pending RBC Pending Hgb Pending Hct Pending MCV Pending MCH Pending RDW Pending Plt Count Pending MPV Pending PUBS MCHC Pending Vital Signs Date Time Temp Pulse Resp B/P Pulse O2 O2 Flow FiO2 Ox Delivery Rate 12/02 0929 92 Room Air Room Air 12/02 0651 98.1 86 16 110/60 93 Room Air 12/02 0000 Room Air 12/01 2235 98.6 90 22 120/50 93 Room Air 12/01 1925 95 Room Air 12/01 1500 98.3 100 22 160/70 93 Room Air 12/01 1029 120/58 Intake & Output 12/02 1600 12/02 0800 12/02 0000 Intake Total 250 550 Output Total 50 125 Balance 200 425 Intake, IV 100 100 Intake, Oral 150 450 Output, Urine 50 125 On examination Patient is awake alert oriented A S1-S2 is normal Lungs shows bilateral basal expectoration with bibasilar crackles. Abdomen is soft nontender bowel sounds are present. Assessment Large decubitus ulcer with osteomyelitis of the sacrum with leukocytosis per recommendations of ID vancomycin and ceftazidime should be discontinued Start the patient on Zosyn 4.5 g every 6 hours MRI of the lumbosacral spine and check for osteomyelitis. This progressed repeat blood cultures in the morning. Suspect patient has got polymicrobial infection with Pseudomonas and other gram- negative bacteremia associated in the decubitus ulcer.
--- NOTE | 2016-12-02 12:30 | PN- Infect Dx ---
Subjective Subjective: Productive cough. No fever. No abdominal pain. Review of Systems Comments: 10 points reviewed as noted, otherwise negative. Objective Last 24 Hrs of Vital Signs/I&O Vital Signs Date Time Temp Pulse Resp B/P Pulse O2 O2 Flow FiO2 Ox Delivery Rate 12/02 0949 110/60 12/02 0929 92 Room Air Room Air 12/02 0651 98.1 86 16 110/60 93 Room Air 12/02 0000 Room Air 12/01 2235 98.6 90 22 120/50 93 Room Air 12/01 1925 95 Room Air 12/01 1500 98.3 100 22 160/70 93 Room Air Intake & Output 12/02 1600 12/02 0800 12/02 0000 Intake Total 250 550 Output Total 50 125 Balance 200 425 Intake, IV 100 100 Intake, Oral 150 450 Output, Urine 50 125 Physical Exam Other Physical Findings: He is awake and alert in no acute distress, afebrile. HEENT AT, scleta anicteric, no thrush. Neck is supple with no adenopathy. Lungs BS present, b/l rhonchi Heart S1 S2 present, no murmur. Abdomen is soft, nontender with positive bowel sounds; suprapubic tube site with minimal erythema and leakage, L colostomy. Skin sacral decubitus with some exudate and minimal necrosis, with no purulence; left buttock decubitus clean with no purulence or surrounding erythema. Extremities no cyanosis, clubbing or edema. Neuro paraplegia, A&O x3 Results Last 24 Hours of Lab Results: Laboratory Tests 12/02 0648 Chemistry Sodium (137 - 145 mmol/L) 137 Potassium (3.5 - 5.1 mmol/L) 4.9 Chloride (98 - 107 mmol/L) 98 Carbon Dioxide (22 - 30 mmol/L) 27 Anion Gap (5 - 16) 12 BUN (9 - 20 mg/dL) 27 H Creatinine (0.7 - 1.2 mg/dL) 0.8 Estimated GFR (>60 ml/min) > 60 BUN/Creatinine Ratio (7 - 25 %) 33.8 H Hematology CBC w Diff NO MAN DIFF REQ WBC (4.8 - 10.8 /CUMM) 15.5 H RBC (4.70 - 6.10 /CUMM) 3.13 L Hgb (14.0 - 18.0 G/DL) 8.3 L Hct (42 - 52 %) 26.2 L MCV (80.0 - 94.0 FL) 83.7 MCH (27.0 - 31.0 PG) 26.6 L RDW (11.5 - 14.5 %) 19.3 H Plt Count (130 - 400 /CUMM) 622 H MPV (7.4 - 10.4 FL) 7.2 L Gran % (42.2 - 75.2 %) 75.3 H Lymphocytes % (20.5 - 51.1 %) 9.8 L Monocytes % (1.7 - 9.3 %) 9.2 Eosinophils % (0 - 5 %) 5.4 H Basophils % (0.0 - 2.0 %) 0.3 Absolute Granulocytes (1.4 - 6.5 /CUMM) 11.7 H Absolute Lymphocytes (1.2 - 3.4 /CUMM) 1.5 Absolute Monocytes (0.10 - 0.60 /CUMM) 1.4 H Absolute Eosinophils (0.0 - 0.7 /CUMM) 0.8 Absolute Basophils (0.0 - 0.2 /CUMM) 0 PUBS MCHC (33.0 - 37.0 G/DL) 31.7 L Last 24 Hours of Perfecto Results: 11/29 UC Ps. aeruginosa. Recent Imaging Studies: ERVICE DATE: 11/30/16- EXAM TYPE: CAT - CT CHEST WO IV CONTRAST EXAMINATION: CT CHEST WITHOUT CONTRAST CLINICAL INFORMATION: 71-year-old male with cough, fever and lethargy. Evaluate for pneumonia. History of descending thoracic aorta aneurysm repair. COMPARISON: Chest CT, 08/03/2013. Abdomen and pelvis CT, 01/20/2015. TECHNIQUE: Multidetector volumetric CT imaging of the chest was done. Axial MIP volume rendering provided. Sagittal and coronal reformatted images were obtained. DLP: 306 mGy-cm FINDINGS: LUNGS AND PLEURA: There is some mucus along the inner wall of the trachea. There is inward bowing of the posterior, membranous wall of the trachea, suggesting that images were acquired during expiration and/or coughing. Mucous is present within the left mainstem bronchus. There is mild centrilobular and paraseptal emphysema. Mild atelectasis is present in the dependent aspect of the the right lower lobe and lingula. There is chronic, mild volume loss of the left lower lobe with chronic streaky peribronchial opacities extending from the region of the hilum to the posterior pleura. This has the appearance of chronic fibrosis/atelectasis and is improved compared to 08/03 2013 and not appreciably changed compared to 01/20/2015. No acute pulmonary consolidation, interstitial edema or pleural effusion. MEDIASTINUM: Cardiomegaly and surgical changes from remote coronary artery bypass grafting. Severe three-vessel coronary artery atherosclerosis. Also, there is extensive atherosclerotic calcification of the tortuous thoracic aorta. The chronically dilated aortic root measures 4.2 cm. The dilated ascending thoracic aorta measures up to 4.4 cm AP and 4.2 cm transverse. At the mid arch level, thoracic aorta is 3.6 cm transverse diameter. The tortuous descending thoracic aorta is chronically dilated and as aorta approaches its diaphragmatic hiatus, it measures up to 4.9 cm AP and 5.5 cm transverse, compared to 4.9 cm x 5.4 cm on 01/20/2015. There is an old dissection flap of the distal descending thoracic and abdominal aorta. No pericardial effusion. Pulmonary arteries are chronically enlarged, as may be seen in pulmonary arterial hypertension. The esophagus is unremarkable. Within the lower neck, the visualized portion of the thyroid gland is normal. LYMPHATICS: No pathologic sized axillary, hilar or mediastinal lymph nodes. 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 The old, benign cortical cyst at the upper pole the right kidney is partially included in the [id number]. Adrenal glands are normal. OSSEOUS STRUCTURES: Sternotomy is healed. Old healed fracture of left posterior sixth rib. Mild osteoarthrosis of the visualized glenohumeral joints. Small bone island of the left glenoid. No suspicious bone lesions. IMPRESSION: 1. Mild pulmonary emphysema. 2. No evidence of acute pneumonia, pleural effusion or lymphadenopathy. 3. Cardiomegaly and severe atherosclerotic disease of coronary arteries, status post CABG. 4. 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 5. Pulmonary arteries are chronically enlarged, suggestive of pulmonary arterial hypertension. DICTATED BY: BAILEE RICKS MD DATE/TIME DICTATED:11/30/161244 REGIONAL MANAGER:JANNA DATE/TIME TRANSCRIBED:11/30/161244 Assessment/Plan Impression: Mr. 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 G); eval OM sacrum (Decubitus ulcer at the level of the coccyx with nonvisualization of the coccygeal bones; associated osteomyelitis of the S5 vertebra cannot be excluded) Leukocytosis Suggestion: 1. Monitor CBC, BMP. Nutrition per team. 2. If feasible MRI lumbar spine eval lumbar spine OM. Local wound care. 3. Continue Zosyn 4.5 gm q 6 h D #2; obtain pressure ulcer MRSA surveillnace culture. 4. Repeat BC x1 in am.
[2016-12-02 14:14] VITALS: BP 120/60
[2016-12-02 23:22] VITALS: BP 130/60
[2016-12-03 06:33] VITALS: BP 136/64
--- NOTE | 2016-12-03 06:57 | PN- Housestaff ---
Subjective Follow-up For: Pseudomonas UTI Sacral wound Subjective: Patient seen and examined at bedside this AM. He reports he feels a little bit better but does endorse chronic low back pain. Review of Systems Constitutional: Denies: chills. EENTM: Denies: visual changes. Cardiovascular: Denies: chest pain, palpitations. Respiratory: Denies: cough, short of breath. Gastrointestinal: Denies: abdominal pain. Genitourinary: Reports: no symptoms. Musculoskeletal: Reports: back pain (Chronic). Skin: Reports: lesions (Sacral 10x10 cm ulcer). Neurological/Psychological: Denies: confusion, headache. Objective Last 24 Hrs of Vital Signs/I&O Vital Signs Date Time Temp Pulse Resp B/P Pulse O2 O2 Flow FiO2 Ox Delivery Rate 12/03 0951 74 136/64 12/03 0825 94 Room Air Room Air 12/03 0800 Room Air 12/03 0633 97.9 74 18 136/64 93 Room Air 12/03 0000 94 Room Air 12/02 2322 97.7 78 20 130/60 94 Room Air 12/02 1938 94 Room Air 12/02 1414 97.7 87 20 120/60 91 Room Air Intake & Output 12/03 1600 12/03 0800 12/03 0000 Intake Total 430 450 Output Total 10 101 Balance 420 349 Intake, IV 230 Intake, Oral 200 450 Output, Stool 10 1 Output, Urine 100 Physical Exam General Appearance: Alert, Oriented X3, Cooperative, No Acute Distress Skin: 10 x 10 cm sacral wound with undermining, rectal ulcer 5x5 cm with undermining, Area around suprapubic catheter clean and dry HEENT: Atraumatic, Mucous Membr. moist/pink Neck: Supple Lymphatic: Cervical nl Cardiovascular: Normal S1, Normal S2 Lungs: Clear to Auscultation, Normal Air Movement Abdomen: Normal Bowel Sounds, Soft Neurological: Normal Speech Extremities: No Clubbing, No Cyanosis Current Medications: Current Medications Sig/Mey Start time Last Medication Dose Route Stop Time Status Admin Acetaminophen 650 MG Q6P PRN 11/29 2030 AC PO Albuterol Sulfate 3 ML TID 11/30 1600 AC 12/03 INH 0820 Allopurinol 100 MG DAILY 11/30 1000 AC 12/03 PO 0951 Atorvastatin Calcium 10 MG 11/30 AC 12/02 PO 1954 Citalopram 20 MG 1600 11/30 1600 AC 12/02 Hydrobromide PO 1634 Docusate Sodium 100 MG 1600 12/03 1600 AC PO Donepezil HCl 10 MG DAILY 11/30 1000 AC 12/03 PO 0949 Enoxaparin Sodium 40 MG 2200 11/29 2200 AC 12/02 SC 2303 Guaifenesin 10 ML .STK-MED ONE 12/02 1956 DC PO 12/02 195 Guaifenesin 10 ML Q6P PRN 11/29 2345 AC 12/02 PO 2034 Ibuprofen 600 MG Q6P PRN 11/29 2030 AC PO Insulin Aspart 0 TIDAC 11/30 0800 AC 12/02 SC 1645 Ipratropium [place] 2.5 ML TID 11/30 1600 AC 12/03 INH 0820 Levetiracetam 500 MG BID 11/29 224 AC 12/03 PO 0951 Lisinopril 10 MG DAILY 11/30 1000 AC 12/03 PO 0951 Melatonin 3 MG AT BEDTIME 12/03 2199 DC PO Melatonin 3 MG AT BEDTIME 12/02 2346 AC 12/02 PO 2347 Memantine 10 MG BID 11/30 1000 AC 12/03 PO 0951 Mirtazapine 7.5 MG AT BEDTIME NEED.. 11/30 2199 AC PO Oxycodone HCl 10 MG Q6P PRN 11/29 2030 AC 12/03 PO 0952 Piperacillin Sod/ 4.5 GM Q6H 12/01 2100 AC 12/03 Tazobactam Sod IV 0949 Sodium Chloride 100 ML Senna/Docusate Sodium 2 TAB DAILY 11/30 1000 AC 12/02 PO 0950 Sodium Hypochlorite 1 HILARIA BID 11/30 1000 AC 12/03 TOP 0958 Trazodone HCl 25 MG Q12P PRN 11/29 224 AC 11/30 PO 0121 Last 24 Hrs of Lab/Perfecto Results Last 24 Hrs of Labs/Mics: Laboratory Tests 12/03/16 0845: Anion Gap 14, Estimated GFR > 60, BUN/Creatinine Ratio 30.0 H, CBC w Diff NO MAN DIFF REQ, RBC 3.35 L, MCV 83.1, MCH 26.1 L, RDW 19.4 H, MPV 7.2 L, Gran % 75.2, Lymphocytes % 10.1 L, Monocytes % 8.6, Eosinophils % 5.8 H, Basophils % 0.3, Absolute Granulocytes 10.5 H, Absolute Lymphocytes 1.4, Absolute Monocytes 1.2 H, Absolute Eosinophils 0.8, Absolute Basophils 0, PUBS MCHC 31.4 L Microbiology 12/03 0845 BLOOD: Blood Culture - RECD 12/02 1800 TRUNK: Culture & Sensitivity - RES BETA STREP GROUP G 12/02 1800 TRUNK: Gram Stain - RES 12/02 1505 TRUNK: Surveillance Culture - CAN Cancelled: Cancelled via OE: Per MD Decision Assessment/Plan Assessment: Mr. 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, currently with an indwelling suprapubic catheter, non-healing sacral decubitus ulcer, diabetes mellitus, hyperlipidemia, coronary artery disease, hypertension, GERD, anxiety and depression who was brought in by ambulance to the [place] ED from [facility] care facility wdue to leukocytosis and cough. Patient is admitted to the general medicine floor and the following is the management: 1. Leukocytosis, unknown source * Sources of infection include: Left-sided gram negative pneumonia, urinary ( chronic indwelling catheter), decubitus ulcer * Initial CXR showed likely left sided airspace disease * Antibiotics changed to Zosyn 4.5 every 6 hours per ID recommendation ( appreciated) on 12/02/16 * Will obtain MRI of the lumbar spine today to evaluate for lumbar osteomyelitis * Also repeat blood culture this morning per ID recommendations * Urine culture shows gram negative rods, however consider contamination * Robitussin PRN for cough 2. Suprapubic catheter * Suprapubic catheter needed s/p paraplegia * Urine culture currently show gram negative rods * Catheter changed during this admission, has been functioning properly 3. Decubitus ulcer * Stage 4 decubitus ulcer present on admission along with rectal ulcer as noted by Dr. Guzman (wound consult appreciated) * No current wound vac in place due to masseration * Discussed patient with Dr. Hauser today over the phone, he reports patient was scheduled for a flap as an outpatient but now that he is admitted with sepsis 2/ 2 UTI, he will cancel this for now * He will see the patient later today, f/u rec's * Dressing with quarter strength Dakin's moistened gauze changed twice daily * Offloading mattress ordered 4. DM * Continue NSS TIDAC * Accuchecks 5. Seizure history * Continue keppra 500 mg PO BID 6. HTN, HLD * Lipitor 10 mg PO daily * Lisinopril 10 mg PO daily 7. Bipolar depression * Continue celexa and trazodone * Aricept 10 mg PO daily * Continue remeron 7.5 mg PO QPM DNR/DNI Diet: CC2 Mild pain pathway DVTP: SC Lovenox Problem List: 1. Hypertension 2. Hyperlipidemia 3. CAD (coronary artery disease) 4. Abdominal aortic aneurysm 5. Sepsis 6. Diabetes 7. UTI (lower urinary tract infection) 8. Leukocytosis 9. Osteomyelitis 10. Hemiplegia 11. S/P CABG (coronary artery bypass graft) Pain Ratin Pain Location: Chronic back pain Pain Goal: Pain 4 or less Pain Plan: Tylenol for mild, motrin for moderate and roxicodone for severe pain. Tomorrow's Labs & Rationales: CBC (leukocytosis and anemia),
--- NOTE | 2016-12-03 08:25 | PN- Wound Care ---
Subjective Subjective: Patient feels improved. Wounds remain in need of debridement and are not yet appropriate for wound VAC. Sedimentation rate remains markedly elevated. Objective Vital Signs and I&Os Vital Signs Result Date Time Pulse Ox 93 12/03 632 B/P 136/64 12/03 632 O2 Delivery Room Air 12/03 632 Temp 97.9 12/03 632 Pulse 74 12/03 632 Resp 18 12/03 632 O2 Flow Rate Room Air 12/02 0929 Intake & Output 12/03 0000 12/02 1600 12/02 0800 Intake Total 450 1880 250 Output Total 101 200 50 Balance 349 1680 200 Intake, IV 900 100 Intake, Oral 450 980 150 Output, Stool 1 Output, Urine 100 200 50 Stage IV decubitus ulcers with significant slough and exposed bone remain unchanged. Impression/Plan Impression/Plan Impression/Plan: 71-year-old gentleman paraplegic admitted with leukocytosis of uncertain etiology potential sources are lung urine and wound. Given the appearance of his wounds would not replace wound VAC at this time. Recommend plastic surgery evaluation for debridement and evaluation for flap closure once acute issues are resolved. Patient should be placed on a Cl[place]ron bed. Wound care in the interim can be either Aquacel Ag. Or quarter strength Dakin's moistened gauze changed twice daily. Areas should be offloaded. Metcalf for wound closure appears to be poor without major surgical intervention. Patient should be placed on a Clinitron bed await formal decision by plastic surgery regarding debridement and possible flap closure
--- NOTE | 2016-12-03 09:31 | PN- Att Addend ---
Attending Addendum Attending Brief Note Patient awake and alert General Appearance: Lethargic Skin: Decubitus ulcer HEENT: PEERLA Neck: Supple, No JVD Cardiovascular: Regular Rate, Normal S1, Normal S2, No Murmurs Lungs: Clear to Auscultation, Normal Air Movement Abdomen: Left colostomy bag and a suprapubic catheter Neurological: Paraplegic Extremities: No Clubbing, No Cyanosis, No Edema Vascular: Normal Pulses Assessment 71-year-old male with history of aortic abdominal aneurysm status post repair, paraplegia with suprapubic catheter, chronic nonhealing sacral decubitus ulcer, diabetes, dyslipidemia, coronary artery disease, hypertension sent from rehabilitation facility after abnormal labs including leukocytosis and elevated ESR of about 100. Patient was recently hospitalized and had a debridement by Roman Dumont MD with wound VAC. Possible infected decubitus versus UTI. Pseudomonas in the urine that is resistant to ceftazidime. He is currently on Zosyn. MRI lumbosacral spine to rule out osteomyelitis. Plan MRI lumbosacral spine Continue current antibiotics Plastic surgery evaluation for wound care and possible debridement Continue insulin and Accu-Cheks Continue other home meds DVT prophylaxis Current Medications Sig/Mey Start time Last Medication Dose Route Stop Time Status Admin Acetaminophen 650 MG Q6P PRN 11/29 2030 AC PO Albuterol Sulfate 3 ML TID 11/30 1600 AC 12/03 INH 0820 Allopurinol 100 MG DAILY 11/30 1000 AC 12/02 PO 0950 Atorvastatin Calcium 10 MG 2000 11/30 1999 AC 12/02 PO 195 Citalopram 20 MG 1600 11/30 1600 AC 12/02 Hydrobromide PO 1634 Docusate Sodium 100 MG 1600 12/03 1600 AC PO Donepezil HCl 10 MG DAILY 11/30 1000 AC 12/01 PO 1029 Enoxaparin Sodium 40 MG 0 11/29 2200 AC 12/02 SC 2303 Guaifenesin 10 ML .STK-MED ONE 12/02 1956 DC PO 12/02 1957 Guaifenesin 10 ML Q6P PRN 11/29 2345 AC 12/02 PO 203 Ibuprofen 600 MG Q6P PRN 11/29 2030 AC PO Insulin Aspart 0 TIDAC 11/30 0800 AC 12/02 SC 1645 Ipratropium [place] 2.5 ML TID 11/30 1600 AC 12/03 INH 0820 Levetiracetam 500 MG BID 11/29 2241 AC 12/02 PO 2301 Lisinopril 10 MG DAILY 11/30 1000 AC 12/02 PO 0949 Melatonin 3 MG AT BEDTIME 12/03 2200 DC PO Melatonin 3 MG AT BEDTIME 12/02 2346 AC 12/02 PO 2347 Memantine 10 MG BID 11/30 1000 AC 12/02 PO 2303 Mirtazapine 7.5 MG AT BEDTIME NEED.. 11/30 220 AC PO Oxycodone HCl 10 MG Q6P PRN 11/29 2030 AC 12/03 PO 0353 Piperacillin Sod/ 4.5 GM Q6H 12/01 2100 AC 12/03 Tazobactam Sod IV 0353 Sodium Chloride 100 ML Senna/Docusate Sodium 2 TAB DAILY 11/30 1000 AC 12/02 PO 0950 Sodium Hypochlorite 1 HILARIA BID 11/30 1000 AC 12/02 TOP 2305 Trazodone HCl 25 MG Q12P PRN 11/29 2245 AC 11/30 PO 0121 Laboratory Tests 12/03 0845 Chemistry Sodium Pending Potassium Pending Chloride Pending Carbon Dioxide Pending Anion Gap Pending BUN Pending Creatinine Pending BUN/Creatinine Ratio Pending Hematology CBC w Diff Pending WBC Pending RBC Pending Hgb Pending Hct Pending MCV Pending MCH Pending RDW Pending Plt Count Pending MPV Pending PUBS MCHC Pending Vital Signs Date Time Temp Pulse Resp B/P Pulse O2 O2 Flow FiO2 Ox Delivery Rate 12/03 0825 94 Room Air Room Air 12/03 0800 Room Air 12/03 0633 97.9 74 18 136/64 93 Room Air 12/03 0000 94 Room Air 12/02 2322 97.7 78 20 130/60 94 Room Air 12/02 1938 94 Room Air 12/02 1414 97.7 87 20 120/60 91 Room Air 12/02 0949 110/60
[2016-12-03 10:04] LABS: ABSOLUTE BASOPHIL COUNT 0 /CUMM (0.0-0.2); ABSOLUTE EOSINOPHIL COUNT 0.8 /CUMM (0.0-0.7); ABSOLUTE GRANULOCYTE CT 10.5 /CUMM (1.4-6.5); ABSOLUTE LYMPH COUNT 1.4 /CUMM (1.2-3.4); ABSOLUTE MONOCYTE COUNT 1.2 /CUMM (0.10-0.60); BASOPHIL % 0.3 % (0.0-2.0); EOSINOPHIL % 5.8 % (0-5); GRANULOCYTE % 75.2 % (42.2-75.2); HEMATOCRIT 27.9 % (42-52); MEAN CORPUSCULAR HGB 26.1 PG (27.0-31.0); MEAN CORPUSCULAR HGB CONC 31.4 G/DL (33.0-37.0); MEAN CORPUSCULAR VOLUME 83.1 FL (80.0-94.0); MEAN PLATELET VOLUME 7.2 FL (7.4-10.4); PLATELET COUNT 673 /CUMM (130-400); RBC DISTRIBUTION WIDTH 19.4 % (11.5-14.5); RED BLOOD CELL CT 3.35 /CUMM (4.70-6.10)
--- NOTE | 2016-12-03 12:04 | Patient Discharge Instructions ---
Discharge Instructions General Discharge Information You were seen/treated for: sacral ulcers Possible sacral ulcer myelitis Special Instructions: 1. Please check CPK, ESR, and CBC weekly and copy Dr. Saleh and Dr. Farmer 2. You will receive Daptomycin for total of 4 weeks 3. Please follow-up with your primary care provider within 7 days after discharge. 4. Please follow-up with Dr. Otto within 1-2 weeks of discharge 5. His follow-up with your urologist within 1-2 weeks after discharge 6. We have made changes to your home medications, please read the instructions carefully. 7. Please come back to the hospital if your symptoms got worse. Diet Recommended Diet: Diabetic Activity Full Activity/No Limits: Yes (as tolerated) Acute Coronary Syndrome Inclusion Criteria At DC or during hospital stay patient has or had the following: ACS DIAGNOSIS No Discharge Core Measures Meds if any: Prescribed or Continued at Discharge Meds if any: NOT Prescribed or Continued at Discharge Congestive Heart Failure Inclusion Criteria At DC or during hospital stay patient has or had the following: CHF DIAGNOSIS No Discharge Core Measures Meds if any: Prescribed or Continued at Discharge Meds if any: NOT Prescribed or Continued at Discharge Cerebrovascular accident Inclusion Criteria At DC or during hospital stay patient has or had the following: CVA/TIA Diagnosis No Discharge Core Measures Meds if any: Prescribed or Continued at Discharge Meds if any: NOT Prescribed or Continued at Discharge Venous thromboembolism Inclusion Criteria VTE Diagnosis No VTE Type NONE VTE Confirmed by (Test) NONE Discharge Core Measures - Per Current guidelines, there needs to be overlap - treatment for the first 5 days of Warfarin therapy. - If discharged on Warfarin prior to 5 days of - overlap therapy, the patient will need to be - assessed for post discharge needs including - *Post discharge parental anticoagulation - *Warfarin and/or parental anticoagulation education - *Follow up date to check INR post discharge At least 5 days overlap therapy as Inpatient No Meds if any: Prescribed or Continued at Discharge Note: Overlap Therapy is Warfarin and Anticoagulant Meds if any: NOT Prescribed or Continued at Discharge
[2016-12-03 14:40] VITALS: BP 130/48
--- NOTE | 2016-12-03 14:48 | PN- Infect Dx ---
Subjective Subjective: No fever or chills; no abdo pain, chronic cough (improved). Review of Systems Comments: 10 points reviewed as noted, otherwise negative. Objective Last 24 Hrs of Vital Signs/I&O Vital Signs Date Time Temp Pulse Resp B/P Pulse O2 O2 Flow FiO2 Ox Delivery Rate 12/03 1440 97.3 85 20 130/48 93 12/03 0951 74 136/64 12/03 0825 94 Room Air Room Air 12/03 0800 Room Air 12/03 0633 97.9 74 18 136/64 93 Room Air 12/03 0000 94 Room Air 12/02 2322 97.7 78 20 130/60 94 Room Air 12/02 1938 94 Room Air Intake & Output 12/03 1600 12/03 0800 12/03 0000 Intake Total 820 430 450 Output Total 850 10 101 Balance -30 420 349 Intake, IV 100 230 Intake, Oral 720 200 450 Output, Stool 600 10 1 Output, Urine 250 100 Physical Exam Other Physical Findings: He is awake and alert in no acute distress, afebrile. HEENT AT, scleta anicteric, no thrush. Neck is supple with no adenopathy. Lungs BS present, b/l rhonchi Heart S1 S2 present, no murmur. Abdomen is soft, nontender with positive bowel sounds; suprapubic tube site with minimal erythema and leakage, L colostomy. Skin sacral decubitus with some exudate and minimal necrosis, with no purulence; left buttock decubitus Extremities no cyanosis, clubbing or edema. Neuro paraplegia, A&O x3 Results Last 24 Hours of Lab Results: Laboratory Tests 12/03 0845 Chemistry Sodium (137 - 145 mmol/L) 140 Potassium (3.5 - 5.1 mmol/L) 4.9 Chloride (98 - 107 mmol/L) 97 L Carbon Dioxide (22 - 30 mmol/L) 29 Anion Gap (5 - 16) 14 BUN (9 - 20 mg/dL) 24 H Creatinine (0.7 - 1.2 mg/dL) 0.8 Estimated GFR (>60 ml/min) > 60 BUN/Creatinine Ratio (7 - 25 %) 30.0 H Hematology CBC w Diff NO MAN DIFF REQ WBC (4.8 - 10.8 /CUMM) 14.0 H RBC (4.70 - 6.10 /CUMM) 3.35 L Hgb (14.0 - 18.0 G/DL) 8.8 L Hct (42 - 52 %) 27.9 L MCV (80.0 - 94.0 FL) 83.1 MCH (27.0 - 31.0 PG) 26.1 L RDW (11.5 - 14.5 %) 19.4 H Plt Count (130 - 400 /CUMM) 673 H MPV (7.4 - 10.4 FL) 7.2 L Gran % (42.2 - 75.2 %) 75.2 Lymphocytes % (20.5 - 51.1 %) 10.1 L Monocytes % (1.7 - 9.3 %) 8.6 Eosinophils % (0 - 5 %) 5.8 H Basophils % (0.0 - 2.0 %) 0.3 Absolute Granulocytes (1.4 - 6.5 /CUMM) 10.5 H Absolute Lymphocytes (1.2 - 3.4 /CUMM) 1.4 Absolute Monocytes (0.10 - 0.60 /CUMM) 1.2 H Absolute Eosinophils (0.0 - 0.7 /CUMM) 0.8 Absolute Basophils (0.0 - 0.2 /CUMM) 0 PUBS MCHC (33.0 - 37.0 G/DL) 31.4 L Last 24 Hours of Perfecto Results: PEC #: [id number] TIP: 12/02/16 STATUS: RES RECD: 12/02/[address]: JAYLAN MULLIGANALHAJI SOURCE: TRUNK ENTR: 12/02/[address]: KELSEY MULLIGAN,SLIM Avalos SPDESC: LUCY ANN MD,[facility] ORDERED: TRUNK CULTURE COMMENT: TYPE OF SPECIMEN: DEEP Procedure Result > GRAM STAIN Final 12/03/16-1140 WHITE BLOOD CELLS FEW SQUAMOUS CELLS NONE GRAM POSITIVE COCCI RARE > TRUNK AREA CULTURE Preliminary 12/03/16 Scant growth of BETA STREP GROUP G isolated Penicillin and Ampicillin are drugs of choice for beta-hemolytic streptococcal infections. Susceptibility testing of penicillins and other beta-lactams are not routinely performed because non-susceptible isolates have only rarely been reported. Note: If patient is allergic to Penicillin, the laboratory can perform Clindamycin testing upon request. Please call within 5 days of final report. Recent Imaging Studies: SERVICE DATE: 11/30/16- EXAM TYPE: CAT - CT ABD & PELVIS W IV CONTRAST EXAMINATION: CT ABDOMEN AND PELVIS WITH CONTRAST CLINICAL INFORMATION: Chronic sacral decubitus ulcer. Evaluate for abscess. COMPARISON: CT abdomen and pelvis dated 01/20/2015 TECHNIQUE: Multidetector volumetric imaging was performed of the abdomen and pelvis before and after the IV administration of 94 mL of Optiray 320 intravenous contrast. Sagittal and coronal reformatted images were obtained on the technologist's workstation. DLP: 631.85 mGy-cm FINDINGS: LUNG BASES: Bibasilar atelectatic changes noted again, left greater than right. Somewhat similar appearance seen on the prior examination. Atherosclerotic disease of the distal descending aorta similar to the previous examination with wall thrombus and intimal calcification. LIVER, GALLBLADDER, AND BILIARY TREE: Subtle low-attenuation adjacent to the falciform ligament likely representing transient hepatic attenuation difference similar to the prior study. Status post cholecystectomy. No evidence of biliary ductal dilatation. PANCREAS: Unremarkable. SPLEEN: Lobulated spleen. Stable subcapsular low-attenuation noted along the outer aspect with associated subtle calcific appearing peripheral hyperdensity . ADRENAL GLANDS: Unremarkable. KIDNEYS AND URETERS: Multiple low-attenuation renal cortical lesions noted again. Dominant cyst upper pole right kidney demonstrates slight interval decrease measuring 3.7 x 2.5 cm compared to 4.2 x 3.3 cm. Previously seen smaller exophytic hyperdense cystic lesion outer aspect right kidney demonstrates interval increase in size now measuring approximately 2.2 x 1.6 cm compared to 1.4 cm. Additional low-attenuation bilateral cortical lesions also demonstrate slight interval increase. Interval increase in the cortical thinning of the left kidney. Decreased size of the right kidney compatible with atrophy. BLADDER: Percutaneous bladder catheter. Thick-walled appearance urinary bladder. GASTROINTESTINAL TRACT: Postoperative changes with Morton's pouch. Left-sided colostomy. Colonic diverticulosis. Mildly thick-walled rectoanal junction. Abnormal soft tissue thickening posterior to the rectum extending to the gluteal cleft. ABDOMINAL WALL: No evidence of parastomal hernia. LYMPH NODES: No gross lymphadenopathy. 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 Atherosclerotic disease. PELVIS: Decubitus ulceration with pocket of air surrounded by soft tissue thickening noted in the left posterior ischial region. Adjacent posterior ischiopubic junction demonstrates subtle cortical lucency raising the possibility of associated osteomyelitis. Somewhat similar appearance was also seen on the prior examination. Stranding and soft tissue thickening noted in the presacral fat. OSSEOUS STRUCTURES: Decubitus ulcer at the level of the coccyx with nonvisualization of the coccygeal bones. This presents a new finding. Associated osteomyelitis of the S5 vertebra cannot be excluded. Decubitus ulcer is also in close proximity to the left ischial pubic junction. Again, adjacent osteomyelitis is difficult to exclude. IMPRESSION: 1. Large decubitus ulcer with adjacent soft tissue thickening extending to the posterior perirectal region. Abnormal soft tissue thickening and air pocket also abutting the left ischiopubic junction. Abnormal soft tissue and ulceration abutting the left ischiopubic junction and the S5 vertebra. Adjacent osteomyelitis cannot be excluded. No gross evidence of abscess formation. 2. Interval absence of the coccygeal bones. This may represent a postsurgical change. Clinical correlation recommended. 3. Left basilar atelectasis. 4. Splenic subcapsular low-attenuation with no significant interval change. 5. Interval decrease in the dominant right upper pole renal cyst. Remaining low-attenuation renal lesions demonstrate slight interval increase. Interval increase in the left renal atrophy. 6. Thick-walled urinary bladder with percutaneous catheter. DICTATED BY: JOSIE BLANC MD DATE/TIME DICTATED:11/30/162336 VP INFORMATION TECHNOLOGY:JANNA DATE/TIME TRANSCRIBED:11/30/162336 CONFIDENTIAL, DO NOT COPY WITHOUT APPROPRIATE AUTHORIZATION. <Electronically signed in Other Vendor System> SIGNED BY: JOSIE BLANC MD 12/01/16 0007 Assessment/Plan Impression: Mr. 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 G); eval OM sacrum; local cx Strep gr G (Decubitus ulcer at the level of the coccyx withnonvisualization of the coccygeal bones; associated osteomyelitis of the S5 vertebra cannot be excluded) Leukocytosis/WBC is trending down. Suggestion: 1. Monitor CBC, BMP. Nutrition per team. 2. F/U MRI lumbar spine eval lumbar spine OM. Local wound care. 3. Continue Zosyn 4.5 gm q 6 h D #3 for now. . 4. EKG in am eval QT interval; if not prolonged plan to descalate abx to Unasyn/Cipro in am. Case d/w team.
--- NOTE | 2016-12-03 15:24 | MRI REPORT ---
EXAMINATION: MR LUMBAR SPINE WITHOUT AND WITH CONTRAST CLINICAL INFORMATION: Decubitus ulcer. Lumbar osteomyelitis. COMPARISON: CT dated 11/30/2016 and prior MRI of the pelvis dated 10/09/2016. TECHNIQUE: MRI of the lumbar spine was obtained before and after intravenous administration of 18 mL Magnevist. FINDINGS: VERTEBRAL BODIES AND PARASPINAL STRUCTURES: Vertebral body heights are normal. There is left convex lumbar scoliotic curvature centered at L2. Fkzwrpfl-ka-svoyzj degenerative arthritis is present at L2-L3, right side greater than left, characterized by loss of intervertebral disc height, endplate osteophytes, Modic type II subendplate marrow changes, intervertebral disc desiccation, and endplate irregularity. More mild multilevel degenerative disc disease is present at the other levels. No abnormal enhancement within the lumbar spine. There is feyaprpk-an-twhgxe multilevel facet arthropathy in the lumbar spine from the L1-L2 level through L5-S1. There is mild degenerative arthritis in the SI joints bilaterally. Marrow edema is present throughout the S5 segment. The coccyx is absent. As seen on image 14/30 of series 3, the tip of the S5 vertebral body is low in signal intensity on T1-weighted images and avidly enhancing on postcontrast images, most compatible with osteomyelitis. The overlying decubitus ulcer in this region measures 5.4 x 6.8 cm (transverse by AP) with a depth of 2.8 cm, extending into the left ischioanal fat. There is a thin band of fluid in the subcutaneous fat extending cephalad from the ulceration by 3 cm. This band of fluid is thin, measuring 6 x 3 x 0.2 cm. No deeper fluid collections are identified in this region. There is significant soft tissue edema and enhancement surrounding the edematous bone, extending cephalad in the sacral hiatus to the level of S3-S4 and extending cephalad in the presacral space to the level of S1-S2. The left ischium is partially included on this study. The left tissue tuberosity is edematous and enhancing with foci of low T1 signal intensity intramedullary space on T1-weighted images, consistent with osteomyelitis. Pelvic in general, the imaged pelvic soft tissues are only partially included on this study. There are chronic degenerative changes at the pubic symphysis with pubic symphysis diastases and surrounding edema. Potential osteomyelitis at the pubic symphysis is not well assessed on this study. There is significant soft tissue edema signal within the left hemipelvis around the obturator leather staker muscle. Edema signal is also present within the bilateral adductor and short external rotator musculature. Muscles are diffusely atrophic. No deep fluid collections are identified. A suprapubic catheter is present in the bladder. The region of the prostate and urethra is not well evaluated, though appears abnormal grossly. Multiple bilateral renal cysts are noted. The chronic dissection is again seen within the abdominal aorta which is aneurysmal to 5 cm on these images. There is ectasia of the bilateral common iliac arteries as well as the left internal iliac artery. CONUS MEDULLARIS AND CAUDA EQUINA: The conus medullaris is atrophic, terminating in the region of T11-T12. SPINAL LEVELS: T12-L1: Unremarkable L1-L2: Mild annular bulge. Minimal retrolisthesis of L1 on L2 (2 mm). No significant central canal or neural foraminal stenoses. L2-L3: Minimal retrolisthesis of L2 on L3 (2 mm). Diffuse disc osteophyte complex indents the ventral aspect of the thecal sac without producing significant central canal stenosis. There is moderate facet arthropathy. Foraminal components of the endplate osteophytes produce mild bilateral neural foraminal stenoses. L3-L4: Facet arthropathy combines with a diffuse annular bulge to produce ljpj-ag-ckavmntu central canal stenosis. There is mild mass effect upon the left L4 nerve roots in the lateral recess. Mild bilateral neural foraminal stenoses are noted. L4-L5: A diffuse disc bulge combines with the severe facet arthropathy and ligamentum flavum thickening to produce voiemfdi-yl-ydxwfk central canal stenosis as well as zutg-wm-pcizyivn bilateral neural foraminal stenoses. L5-S1: Marked facet arthropathy is more pronounced on the right side than the left. No significant central canal or neural foraminal stenoses. IMPRESSION: 1. Osteomyelitis of the S5 segment of the sacrum with absence of the coccyx and an overlying sacral decubitus ulcer which extends to the depth of bone. No abscess. 2. Osteomyelitis of the left ischial tuberosity with overlying decubitus ulcer extending to the depth of bone. This decubitus ulcer is contiguous with the aforementioned sacral ulcer. 3. No additional foci of osteomyelitis are identified within the lumbar spine. Degeneration, edema, and cortical irregularity are present at the pubic symphysis which is only partially included on this study. Pubic symphyseal infection is not excluded. 4. Multilevel degenerative disc disease in the lumbar spine, most severe at L2-L3. There is vnlojnme-yq-uyjffr multilevel facet arthropathy. 5. Vayjtwrl-ua-uayiat central canal stenosis at L4-L5.
[2016-12-03 22:56] VITALS: BP 130/60
--- NOTE | 2016-12-04 04:58 | PN- Housestaff ---
Subjective Follow-up For: Pseudomonas UTI Sacral wound Subjective: Patient is alert and oriented, seen at bedside, reports no complaints and no overnight events. Patient does not have sensation from upper chest down. denies any shortness of breath or dizziness. Review of Systems Constitutional: Reports: weakness. Denies: chills, fever. EENTM: Reports: no symptoms. Cardiovascular: Denies: chest pain, palpitations, peripheral edema. Respiratory: Denies: cough, short of breath, sputum production. Gastrointestinal: Denies: abdominal pain. Genitourinary: Reports: no symptoms. Musculoskeletal: Reports: no symptoms. Skin: Reports: lesions (in the back). Neurological/Psychological: Reports: no symptoms. Objective Last 24 Hrs of Vital Signs/I&O Vital Signs Date Time Temp Pulse Resp B/P Pulse O2 O2 Flow FiO2 Ox Delivery Rate 12/04 0947 92 Room Air 12/04 0817 86 138/70 12/04 0800 Room Air 12/04 0659 97.5 86 20 138/70 93 Room Air 12/04 0000 Room Air 12/03 2256 97.3 88 20 130/60 92 Room Air 12/03 1915 92 Room Air 12/03 1440 97.3 85 20 130/48 93 Intake & Output 12/04 1600 12/04 0800 12/04 0000 Intake Total 370 530 Output Total 200 250 Balance 170 280 Intake, IV 130 130 Intake, Oral 240 400 Output, Stool 150 150 Output, Urine 50 100 Physical Exam General Appearance: Alert, Oriented X3, Cooperative, No Acute Distress Skin: colostomy on the left lower abdomen as well as suprapubic catheter, no tenderness or erythema noted on the skin around the colostomy bag and the catheter. HEENT: Atraumatic, PERRLA, Mucous Membr. moist/pink Neck: Supple Cardiovascular: Regular Rate, Normal S1, Normal S2, No Murmurs Lungs: Clear to Auscultation, Normal Air Movement Abdomen: Normal Bowel Sounds, Soft, No Tenderness Neurological: Normal Speech, Cranial Nerves 3-12 NL, patient has motor and sensory loss from the upper chest down to the toes, upper extremities have normal forces Extremities: No Cyanosis, No Edema, Normal Pulses, No Tenderness/Swelling Vascular: Normal Pulses, Pulses Symmetrical Last 24 Hrs of Lab/Perfecto Results Last 24 Hrs of Labs/Mics: Laboratory Tests 12/04/16 0645: CBC w Diff NO MAN DIFF REQ, RBC 3.31 L, MCV 84.0, MCH 26.2 L, RDW 19.2 H, MPV 7.1 L, Gran % 74.8, Lymphocytes % 9.3 L, Monocytes % 7.5, Eosinophils % 8.2 H , Basophils % 0.2, Absolute Granulocytes 11.1 H, Absolute Lymphocytes 1.4, Absolute Monocytes 1.1 H, Absolute Eosinophils 1.2, Absolute Basophils 0, PUBS MCHC 31.2 L Assessment/Plan Assessment: Mr. 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, currently with an indwelling suprapubic catheter, non-healing sacral decubitus ulcer, diabetes mellitus, hyperlipidemia, coronary artery disease, hypertension, GERD, anxiety and depression who was brought in by ambulance to the [place] [facility] from [facility] wdue to leukocytosis and cough. Patient is admitted to the general medicine floor and the following is the management: 1. Leukocytosis, unknown source * Sources of infection include: Left-sided gram negative pneumonia, urinary ( chronic indwelling catheter), decubitus ulcer * Initial CXR showed likely left sided airspace disease * Antibiotics changed to Zosyn 4.5 every 6 hours per ID recommendation ( appreciated) on 12/02/16 * Will obtain MRI of the lumbar spine today to evaluate for lumbar osteomyelitis * Also repeat blood culture this morning per ID recommendations * Urine culture shows gram negative rods, however consider contamination * Robitussin PRN for cough 2. Suprapubic catheter * Suprapubic catheter needed s/p paraplegia * Urine culture currently show gram negative rods * Catheter changed during this admission, has been functioning properly 3. Decubitus ulcer * Stage 4 decubitus ulcer present on admission along with rectal ulcer as noted by Dr. Guzman (wound consult appreciated) * No current wound vac in place due to masseration * Discussed patient with Dr. Hauser today over the phone, he reports patient was scheduled for a flap as an outpatient but now that he is admitted with sepsis 2/ 2 UTI, he will cancel this for now * He will see the patient later today, f/u rec's * Dressing with quarter strength Dakin's moistened gauze changed twice daily * Offloading mattress ordered 4. DM * Continue NSS TIDAC * Accuchecks 5. Seizure history * Continue keppra 500 mg PO BID 6. HTN, HLD * Lipitor 10 mg PO daily * Lisinopril 10 mg PO daily 7. Bipolar depression * Continue celexa and trazodone * Aricept 10 mg PO daily * Continue remeron 7.5 mg PO QPM DNR/DNI Diet: CC2 Mild pain pathway DVTP: SC Lovenox Problem List: 1. Hyperlipidemia 2. Paraplegia 3. Decubitus ulcer Pain Ratin Pain Location: not in any pain Pain Goal: Pain 4 or less Pain Plan: mild pain pathway Tomorrow's Labs & Rationales: CBC, BEP
[2016-12-04 06:59] VITALS: BP 138/70
[2016-12-04 08:04] LABS: ABSOLUTE BASOPHIL COUNT 0 /CUMM (0.0-0.2); ABSOLUTE EOSINOPHIL COUNT 1.2 /CUMM (0.0-0.7); ABSOLUTE GRANULOCYTE CT 11.1 /CUMM (1.4-6.5); ABSOLUTE LYMPH COUNT 1.4 /CUMM (1.2-3.4); ABSOLUTE MONOCYTE COUNT 1.1 /CUMM (0.10-0.60); BASOPHIL % 0.2 % (0.0-2.0); EOSINOPHIL % 8.2 % (0-5); GRANULOCYTE % 74.8 % (42.2-75.2); HEMATOCRIT 27.8 % (42-52); MEAN CORPUSCULAR HGB 26.2 PG (27.0-31.0); MEAN CORPUSCULAR HGB CONC 31.2 G/DL (33.0-37.0); MEAN PLATELET VOLUME 7.1 FL (7.4-10.4); PLATELET COUNT 655 /CUMM (130-400); RBC DISTRIBUTION WIDTH 19.2 % (11.5-14.5); RED BLOOD CELL CT 3.31 /CUMM (4.70-6.10); WHITE BLOOD CELL COUNT 14.9 /CUMM (4.8-10.8)
--- NOTE | 2016-12-04 08:14 | PN- Wound Care ---
Subjective Subjective: MRI shows multifocal osteomyelitis. Reportedly there are no plans for surgical intervention Objective Vital Signs and I&Os Vital Signs Result Date Time Pulse Ox 93 12/04 0559 B/P 138/70 12/04 0559 O2 Delivery Room Air 12/04 658 Temp 97.5 12/04 0659 Pulse 86 12/04 0659 Resp 20 12/04 0659 O2 Flow Rate Room Air 12/03 0825 Intake & Output 12/04 0000 12/03 1600 12/03 0800 Intake Total 530 820 430 Output Total 250 850 10 Balance 280 -30 420 Intake, IV 130 100 230 Intake, Oral 400 720 200 Output, Stool 150 600 10 Output, Urine 100 250 Wounds continue to show exposed bone with osteomyelitis of the sacrum and she'll tuberosity Impression/Plan Impression/Plan Impression/Plan: 71-year-old gentleman paraplegic admitted with leukocytosis of uncertain etiology potential sources are lung urine and wound. Wounds continue to have significant slough and will need surgical debridement before wound VAC can be replaced. We'll discuss with Dr. Jung.
--- NOTE | 2016-12-04 09:52 | PN- Urology ---
Subjective Subjective: Pt lying in bed with no complaints. He does admit to urine leakage from the SPT site but he was not certain. He does not know if he is on any bladder meds. Review of Systems EENTM: Reports: no symptoms. Cardiovascular: Reports: no symptoms. Respiratory: Reports: no symptoms. Gastrointestinal: Reports: no symptoms. Objective Vital Signs and I&Os Vital Signs Date Time Temp Pulse Resp B/P Pulse O2 O2 Flow FiO2 Ox Delivery Rate 12/04 0817 86 138/70 12/04 0800 Room Air 12/04 0659 97.5 86 20 138/70 93 Room Air 12/04 0000 Room Air 12/03 2256 97.3 88 20 130/60 92 Room Air 12/03 1915 92 Room Air 12/03 1440 97.3 85 20 130/48 93 12/03 0951 74 136/64 Intake & Output 12/04 1600 12/04 0800 12/04 0000 12/03 1600 12/03 0800 12/03 0000 Intake Total 370 530 820 430 450 Output Total 200 250 850 10 101 Balance 170 280 -30 420 349 Intake, IV 130 130 100 230 Intake, Oral 240 400 720 200 450 Output, Stool 150 150 600 10 1 Output, Urine 50 100 250 100 Physical Exam: abd soft, ND/NT SPT in place wih a dry dressing in place. Diaper on that is urine soaked. no zheng from below Physical Exam General Appearance: no apparent distress, alert, awake, comfortable Head: normal appearance Ears, Nose, Throat: normal ENT inspection Respiratory: no respiratory distress Abdomen: soft, non-tender Skin: normal color Reproductive: Normal male genitalia (iatrogenic hypospadias) Current Medications: Current Medications Sig/Mey Start time Last Medication Dose Route Stop Time Status Admin Acetaminophen 650 MG Q6P PRN 11/29 2029 AC PO Albuterol Sulfate 3 ML TID 11/30 INH 1915 Allopurinol 100 MG DAILY 11/30 1000 AC 12/04 PO 0817 Atorvastatin Calcium 10 MG 11/30 AC 12/03 PO 2020 Citalopram 20 MG 1600 11/30 1600 AC 12/03 Hydrobromide PO 155 Docusate Sodium 100 MG 12/03 1600 AC 12/03 PO 1552 Donepezil HCl 10 MG DAILY 11/30 1000 12/04 PO 0817 Enoxaparin Sodium 40 MG 11/29 220 AC 12/03 SC 2216 Guaifenesin 10 ML Q6P PRN 11/29 2345 AC 12/02 PO 2034 Ibuprofen 800 MG .STK-MED ONE 12/03 1322 DC PO 12/03 1323 Ibuprofen 600 MG Q6P PRN 11/29 2030 AC 12/03 PO 1326 Insulin Aspart 0 TIDAC 11/30 0800 AC 12/03 SC 1650 Ipratropium [place] 2.5 ML TID 11/30 1600 AC 12/04 INH 0943 Levetiracetam 500 MG BID 11/29 2241 AC 12/04 PO 0817 Lisinopril 10 MG DAILY 11/30 1000 AC 12/04 PO 0817 Melatonin 3 MG AT BEDTIME 12/02 234 AC 12/03 PO 221 Memantine 10 MG BID 11/30 1000 AC 12/04 PO 0817 Mirtazapine 7.5 MG AT BEDTIME NEED.. 11/30 2200 AC PO Oxybutynin Chloride 30 MG DAILY 12/04 1000 UNVr PO Oxycodone HCl 10 MG Q6P PRN 11/29 2030 AC 12/04 PO 0414 Piperacillin Sod/ 4.5 GM Q6H 12/01 2100 AC 12/04 Tazobactam Sod IV 0818 Sodium Chloride 100 ML Senna/Docusate Sodium 2 TAB DAILY 11/30 1000 AC 12/04 PO 0817 Sodium Hypochlorite 1 HILARIA BID 11/30 1000 AC 12/04 TOP 0818 Trazodone HCl 25 MG Q12P PRN 11/29 2245 AC 11/30 PO 0121 Results Last 48 Hours of Labs: Laboratory Tests 12/04 12/03 0645 0845 Chemistry Sodium (137 - 145 mmol/L) 140 Potassium (3.5 - 5.1 mmol/L) 4.9 Chloride (98 - 107 mmol/L) 97 L Carbon Dioxide (22 - 30 mmol/L) 29 Anion Gap (5 - 16) 14 BUN (9 - 20 mg/dL) 24 H Creatinine (0.7 - 1.2 mg/dL) 0.8 Estimated GFR (>60 ml/min) > 60 BUN/Creatinine Ratio (7 - 25 %) 30.0 H Hematology CBC w Diff NO MAN DIFF REQ NO MAN DIFF REQ WBC (4.8 - 10.8 /CUMM) 14.9 H 14.0 H RBC (4.70 - 6.10 /CUMM) 3.31 L 3.35 L Hgb (14.0 - 18.0 G/DL) 8.7 L 8.8 L Hct (42 - 52 %) 27.8 L 27.9 L MCV (80.0 - 94.0 FL) 84.0 83.1 MCH (27.0 - 31.0 PG) 26.2 L 26.1 L RDW (11.5 - 14.5 %) 19.2 H 19.4 H Plt Count (130 - 400 /CUMM) 655 H 673 H MPV (7.4 - 10.4 FL) 7.1 L 7.2 L Gran % (42.2 - 75.2 %) 74.8 75.2 Lymphocytes % (20.5 - 51.1 %) 9.3 L 10.1 L Monocytes % (1.7 - 9.3 %) 7.5 8.6 Eosinophils % (0 - 5 %) 8.2 H 5.8 H Basophils % (0.0 - 2.0 %) 0.2 0.3 Absolute Granulocytes (1.4 - 6.5 /CUMM) 11.1 H 10.5 H Absolute Lymphocytes (1.2 - 3.4 /CUMM) 1.4 1.4 Absolute Monocytes (0.10 - 0.60 /CUMM) 1.1 H 1.2 H Absolute Eosinophils (0.0 - 0.7 /CUMM) 1.2 0.8 Absolute Basophils (0.0 - 0.2 /CUMM) 0 0 PUBS MCHC (33.0 - 37.0 G/DL) 31.2 L 31.4 L Assessment/Plan Assessment/Plan 71 yo male with UTI and urinary incontinence resulting in continual sacral decubitus wound issues. Recommend high dose antimuscarinic daily. Start on 30mg Oxybutynin daily and if still incontinent, then increase the dose to 45mg if no issues with constipation. Core Measures/Miscellaneous Venous Thromboembolism VTE Risk Factors: Acute medical illness VTE Contraindications: No Contraindications VTE Prophylaxis Ordered Inpt: Pharm- Lovenox VTE Diagnosis: No VTE Type: NONE VTE Confirmed by (Test): NONE Beta Lisa Is Beta Lisa a Home Med? No Antibiotics Is Patient on Antibiotics? Yes
--- NOTE | 2016-12-04 10:11 | PN- Att Addend ---
Attending Addendum Attending Brief Note Patient awake and alert General Appearance: Lethargic Skin: Decubitus ulcer HEENT: PEERLA Neck: Supple, No JVD Cardiovascular: Regular Rate, Normal S1, Normal S2, No Murmurs Lungs: Clear to Auscultation, Normal Air Movement Abdomen: Left colostomy bag and a suprapubic catheter Neurological: Paraplegic Extremities: No Clubbing, No Cyanosis, No Edema Vascular: Normal Pulses Assessment 71-year-old male with history of aortic abdominal aneurysm status post repair, paraplegia with suprapubic catheter, chronic nonhealing sacral decubitus ulcer, diabetes, dyslipidemia, coronary artery disease, hypertension sent from rehabilitation facility after abnormal labs including leukocytosis and elevated ESR of about 100. Patient was recently hospitalized and had a debridement by Roman Dumont MD with wound VAC. MRI shows S5 and stable tuberosity osteomyelitis without any collection or abscesses. We'll defer choice of antibiotics doing ID however he will need prolonged antibiotics at least for 6 weeks. Plastic surgery will not perform any debridement at this time and will be followed as outpatient when the infection has been controlled. Repeat blood culture 1 is negative. Plan Discuss with the ID regarding antibiotic coverage Place PICC line Check ESR weekly Continue insulin and Accu-Cheks Continue other home meds DVT prophylaxis Current Medications Sig/Mey Start time Last Medication Dose Route Stop Time Status Admin Acetaminophen 650 MG Q6P PRN 11/29 2030 AC PO Albuterol Sulfate 3 ML TID 11/30 1600 AC 12/03 INH 1915 Allopurinol 100 MG DAILY 11/30 1000 AC 12/04 PO 0817 Atorvastatin Calcium 10 MG 2000 11/30 2000 AC 12/03 PO 2020 Citalopram 20 MG 1600 11/30 1600 AC 12/03 Hydrobromide PO 1552 Docusate Sodium 100 MG 1600 12/03 1600 AC 12/03 PO 1552 Donepezil HCl 10 MG DAILY 11/30 1000 AC 12/04 PO 0817 Enoxaparin Sodium 40 MG 2200 11/29 2200 AC 12/03 SC 2216 Guaifenesin 10 ML Q6P PRN 11/29 2345 AC 12/02 PO 2034 Ibuprofen 800 MG .STK-MED ONE 12/03 1322 DC PO 12/03 1323 Ibuprofen 600 MG Q6P PRN 11/29 2030 AC 12/03 PO 1326 Insulin Aspart 0 TIDAC 11/30 0800 AC 12/03 SC 1650 Ipratropium [place] 2.5 ML TID 11/30 1600 AC 12/04 INH 0943 Levetiracetam 500 MG BID 11/29 2241 AC 12/04 PO 0817 Lisinopril 10 MG DAILY 11/30 1000 AC 12/04 PO 0817 Melatonin 3 MG AT BEDTIME 12/02 2346 AC 12/03 PO 2217 Memantine 10 MG BID 11/30 1000 AC 12/04 PO 0817 Mirtazapine 7.5 MG AT BEDTIME NEED.. 11/30 2200 AC PO Oxybutynin Chloride 30 MG DAILY 12/04 1000 UNVr PO Oxycodone HCl 10 MG Q6P PRN 11/29 2030 AC 12/04 PO 0414 Piperacillin Sod/ 4.5 GM Q6H 12/01 2100 AC 12/04 Tazobactam Sod IV 0818 Sodium Chloride 100 ML Senna/Docusate Sodium 2 TAB DAILY 11/30 1000 AC 12/04 PO 0817 Sodium Hypochlorite 1 HILARIA BID 11/30 1000 AC 12/04 TOP 0818 Trazodone HCl 25 MG Q12P PRN 11/29 2245 AC 11/30 PO 0121 Laboratory Tests 12/04 0645 Hematology CBC w Diff NO MAN DIFF REQ WBC (4.8 - 10.8 /CUMM) 14.9 H RBC (4.70 - 6.10 /CUMM) 3.31 L Hgb (14.0 - 18.0 G/DL) 8.7 L Hct (42 - 52 %) 27.8 L MCV (80.0 - 94.0 FL) 84.0 MCH (27.0 - 31.0 PG) 26.2 L RDW (11.5 - 14.5 %) 19.2 H Plt Count (130 - 400 /CUMM) 655 H MPV (7.4 - 10.4 FL) 7.1 L Gran % (42.2 - 75.2 %) 74.8 Lymphocytes % (20.5 - 51.1 %) 9.3 L Monocytes % (1.7 - 9.3 %) 7.5 Eosinophils % (0 - 5 %) 8.2 H Basophils % (0.0 - 2.0 %) 0.2 Absolute Granulocytes (1.4 - 6.5 /CUMM) 11.1 H Absolute Lymphocytes (1.2 - 3.4 /CUMM) 1.4 Absolute Monocytes (0.10 - 0.60 /CUMM) 1.1 H Absolute Eosinophils (0.0 - 0.7 /CUMM) 1.2 Absolute Basophils (0.0 - 0.2 /CUMM) 0 PUBS MCHC (33.0 - 37.0 G/DL) 31.2 L Vital Signs Date Time Temp Pulse Resp B/P Pulse O2 O2 Flow FiO2 Ox Delivery Rate 12/04 0947 92 Room Air 12/04 0817 86 138/70 12/04 0800 Room Air 12/04 0659 97.5 86 20 138/70 93 Room Air 12/04 0000 Room Air 12/03 2256 97.3 88 20 130/60 92 Room Air 12/03 1915 92 Room Air 12/03 1440 97.3 85 20 130/48 93
[2016-12-04 12:58] LABS: PT 12.9 SEC (9.4-12.5); PTT 28 SEC (25-37)
--- NOTE | 2016-12-04 13:40 | RADIOLOGY REPORT ---
EXAMINATION: XR PORTABLE CHEST CLINICAL INFORMATION: Peripherally inserted catheter for long-term antibiotic treatment. COMPARISON: CXR from 11/29/2016 TECHNIQUE: Portable AP view of the chest was obtained. FINDINGS: The right arm peripherally inserted catheter is in satisfactory position with its tip located in the distal third of the superior vena cava. There is chronic volume loss of the left lower lobe. Again noted are peribronchial opacities in the left lower lobe and elevation of the left diaphragm. There is linear opacity of minimal atelectasis or scar at the right lung base. No acute airspace opacification, pulmonary edema or pleural effusion. Cardiac silhouette and central pulmonary vessels are chronically enlarged. The sternotomy wires are intact. No acute skeletal findings. IMPRESSION: The right arm peripherally inserted catheter is in satisfactory position with its tip located in the distal superior vena cava.
--- NOTE | 2016-12-04 14:08 | PN- Infect Dx ---
Subjective Subjective: No fever. No abdominal pain. Improved cough. No SOB at rest. Review of Systems Comments: 10 points reviewed as noted, otherwise negative. Objective Last 24 Hrs of Vital Signs/I&O Vital Signs Date Time Temp Pulse Resp B/P Pulse O2 O2 Flow FiO2 Ox Delivery Rate 12/04 0947 92 Room Air 12/04 0817 86 138/70 12/04 0800 Room Air 12/04 0659 97.5 86 20 138/70 93 Room Air 12/04 0000 Room Air 12/03 2256 97.3 88 20 130/60 92 Room Air 12/03 1915 92 Room Air 12/03 1440 97.3 85 20 130/48 93 Intake & Output 12/04 1600 12/04 0800 12/04 0000 Intake Total 370 530 Output Total 200 250 Balance 170 280 Intake, IV 130 130 Intake, Oral 240 400 Output, Stool 150 150 Output, Urine 50 100 Physical Exam Other Physical Findings: Gen Afebrile, elevated BMI HEENT AT, scleta anicteric, no thrush. Neck is supple with no adenopathy. Lungs BS present, b/l rhonchi Heart S1 S2 present, no murmur. Abdomen is soft, nontender with positive bowel sounds; suprapubic tube site with minimal erythema and leakage, L colostomy. Skin sacral decubitus with drainage Extremities no cyanosis, clubbing or edema. Neuro paraplegia, A&O x3 Results Last 24 Hours of Lab Results: Laboratory Tests 12/04 12/04 0645 0120 Coagulation PT (9.4 - 12.5 SEC) 12.9 H INR (0.90 - 1.17) 1.23 H APTT (25 - 37 SEC) 28 Hematology CBC w Diff NO MAN DIFF REQ WBC (4.8 - 10.8 /CUMM) 14.9 H RBC (4.70 - 6.10 /CUMM) 3.31 L Hgb (14.0 - 18.0 G/DL) 8.7 L Hct (42 - 52 %) 27.8 L MCV (80.0 - 94.0 FL) 84.0 MCH (27.0 - 31.0 PG) 26.2 L RDW (11.5 - 14.5 %) 19.2 H Plt Count (130 - 400 /CUMM) 655 H MPV (7.4 - 10.4 FL) 7.1 L Gran % (42.2 - 75.2 %) 74.8 Lymphocytes % (20.5 - 51.1 %) 9.3 L Monocytes % (1.7 - 9.3 %) 7.5 Eosinophils % (0 - 5 %) 8.2 H Basophils % (0.0 - 2.0 %) 0.2 Absolute Granulocytes (1.4 - 6.5 /CUMM) 11.1 H Absolute Lymphocytes (1.2 - 3.4 /CUMM) 1.4 Absolute Monocytes (0.10 - 0.60 /CUMM) 1.1 H Absolute Eosinophils (0.0 - 0.7 /CUMM) 1.2 Absolute Basophils (0.0 - 0.2 /CUMM) 0 PUBS MCHC (33.0 - 37.0 G/DL) 31.2 L Last 24 Hours of Perfecto Results: SPEC #: [id number] TIP: 12/03/1645 STATUS: RES RECD: 12/03/1648 [facility] DR: CULLEN MULLIGAN,[facility] SOURCE: BLOOD ENTR: 12/03/16-[address]: SLIM COLE MD SPDESC: 1ST/VENOUS SETH MULLIGAN,[facility] ORDERED: BLOOD CULTURE Procedure Result > BLOOD CULTURE REPORT Preliminary 12/04/16120 No growth after 1 day incubation. Specimen is examined continuously for 5 days before final report unless culture becomes positive. Recent Imaging Studies: MRI spine 12/03/16: IMPRESSION: 1. Osteomyelitis of the S5 segment of the sacrum with absence of the coccyx and an overlying sacral decubitus ulcer which extends to the depth of bone. No abscess. 2. Osteomyelitis of the left ischial tuberosity with overlying decubitus ulcer extending to the depth of bone. This decubitus ulcer is contiguous with the aforementioned sacral ulcer. 3. No additional foci of osteomyelitis are identified within the lumbar spine. Degeneration, edema, and cortical irregularity are present at the pubic symphysis which is only partially included on this study. Pubic symphyseal infection is not excluded. 4. Multilevel degenerative disc disease in the lumbar spine, most severe at L2-L3. There is qxcerqlk-[id number] multilevel facet arthropathy. 5. Ngyrqwoq-fi-gbelkf central canal stenosis at L4-L5. DICTATED BY: RUSS MINAYA MD DATE/TIME DICTATED:12/03/161318 TRAFFIC COORDINATOR:JANNA DATE/TIME TRANSCRIBED:12/03/161318 Assessment/Plan Impression: Mr. 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 G); OM sacrum; local cx Strep gr G and L ischial tuberosity Leukocytosis Suggestion: 1. Monitor CBC, BMP. Nutrition per team. 2. Appreciate plastic surgery recom; obtain OR deep wound cx; wound vac post debridement. Planned sx 12/06. 3. Continue Zosyn 4.5 gm q 6 h D #4.
[2016-12-04 14:32] VITALS: BP 130/70
[2016-12-04 21:38] VITALS: BP 130/80
[2016-12-05 06:45] VITALS: BP 140/80
--- NOTE | 2016-12-05 07:02 | PN- Housestaff ---
Subjective Follow-up For: Pseudomonas UTI Sacral wound Subjective: Patient was seen and examined at bedside, reports pain in the upper back (4-5/10 ) overnight which is resolved now. no other complains. PICC line was placed yesterday and he will go for debridement of the decubitus ulcer tomorrow. Review of Systems Constitutional: Denies: chills, malaise, weakness. EENTM: Reports: no symptoms. Cardiovascular: Denies: chest pain, palpitations, peripheral edema. Respiratory: Reports: no symptoms. Gastrointestinal: Reports: no symptoms. Genitourinary: Reports: no symptoms. Musculoskeletal: Reports: back pain (upper back). Objective Last 24 Hrs of Vital Signs/I&O Vital Signs Date Time Temp Pulse Resp B/P Pulse O2 O2 Flow FiO2 Ox Delivery Rate 12/05 0645 97.4 72 20 140/80 95 Room Air 12/04 2138 98.2 80 20 130/80 95 12/04 1930 Room Air 12/04 1600 Room Air 12/04 1432 98.2 80 20 130/70 94 12/04 0947 92 Room Air Intake & Output 12/05 1600 12/05 0800 12/05 0000 Intake Total 390 630 Output Total 500 Balance -110 630 Intake, IV 150 150 Intake, Oral 240 480 Number 2 Bowel Movements Output, Urine 500 Physical Exam General Appearance: Alert, Oriented X3, Cooperative, No Acute Distress Skin: 10x10 cm sacral wound and 5x5 rectal wound no purulent discharge noted, nonviable tissue overly the skin that need to be debrided. patient has suprapubic catheter and colostomy bag, skin is nontender and nonerythematous around the bag and the catheter. Neck: Supple Cardiovascular: Regular Rate, Normal S1, Normal S2, No Murmurs Lungs: Clear to Auscultation, Normal Air Movement Abdomen: Normal Bowel Sounds, Soft, No Tenderness Neurological: Normal Speech, 0/5 forces on the lower extremities and 5/5 forces on the upper extremities Extremities: No Edema, Normal Pulses, No Tenderness/Swelling Vascular: Normal Pulses, Pulses Symmetrical Last 24 Hrs of Lab/Perfecto Results Last 24 Hrs of Labs/Mics: Laboratory Tests 12/05/16 0600: Anion Gap 13, Estimated GFR > 60, BUN/Creatinine Ratio 31.3 H, CBC w Diff NO MAN DIFF REQ, RBC 3.29 L, MCV 84.4, MCH 26.3 L, RDW 19.6 H, MPV 7.0 L, Gran % 72.0, Lymphocytes % 10.6 L, Monocytes % 7.3, Eosinophils % 9.8 H, Basophils % 0.3, Absolute Granulocytes 10.7 H, Absolute Lymphocytes 1.6, Absolute Monocytes 1.1 H, Absolute Eosinophils 1.5, Absolute Basophils 0, PUBS MCHC 31.1 L, ESR Westergren 129 H Assessment/Plan Assessment: Mr. 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, currently with an indwelling suprapubic catheter, non-healing sacral decubitus ulcer, diabetes mellitus, hyperlipidemia, coronary artery disease, hypertension, GERD, anxiety and depression who was brought in by ambulance to the [facility] ED from extended care facility wdue to leukocytosis and cough. Patient is admitted to the general medicine floor and the following is the management: 1. Leukocytosis, unknown source - trending down Sources of infection include: Left-sided gram negative pneumonia, urinary ( chronic indwelling catheter), decubitus ulcer. patient has been afebrile * Initial CXR showed likely left sided airspace disease * Antibiotics changed to Zosyn 4.5 every 6 hours per ID recommendation ( appreciated) on 12/02/16 * MRI of the lumbar spine: Osteomyelitis of the S5 segment of the sacrum with absence of the coccyx and an overlying sacral decubitus ulcer which extends to the depth of bone. Osteomyelitis of the left ischial tuberosity with overlying decubitus ulcer extending to the depth of bone. This decubitus ulcer is contiguous with the aforementioned sacral ulcer. * repeat blood culture per ID recommendations: NG AFTER 1 D * Urine culture shows gram negative rods, however consider contamination * Robitussin PRN for cough * patient will go t the OR tomorrow 12/06/16 for debridement, will obtain deep wound and bone culture 2. Suprapubic catheter * Suprapubic catheter needed s/p paraplegia * Urine culture currently show gram negative rods * Catheter changed during this admission, has been functioning properly * Patient is started on Oxybutinin 30 mg daily since 12/04/16 per Urology 3. Decubitus ulcer * Stage 4 decubitus ulcer present on admission along with rectal ulcer as noted by Dr. Guzman (wound consult appreciated) * No current wound vac in place due to masseration * Discussed patient with Dr. Hauser today over the phone, he reports patient was scheduled for a flap as an outpatient but now that he is admitted with sepsis 2/ 2 UTI, he will cancel this for now * Dressing with quarter strength Dakin's moistened gauze changed twice daily * Offloading mattress ordered * Patient will go to the OR tomorrow for I&D 4. DM * Continue NSS TIDAC * Accuchecks 5. Seizure history * Continue keppra 500 mg PO BID 6. HTN, HLD * Lipitor 10 mg PO daily * Lisinopril 10 mg PO daily 7. Bipolar depression * Continue celexa and trazodone * Aricept 10 mg PO daily * Continue remeron 7.5 mg PO QPM DNR/DNI Diet: CC2 Mild pain pathway DVTP: SC Lovenox Problem List: 1. Paraplegia 2. Osteomyelitis Pain Ratin Pain Location: rently no pain, had 4/10 upper back pain Pain Goal: Pain 4 or less Pain Plan: mild pp Tomorrow's Labs & Rationales: CBC, BEP
[2016-12-05 07:46] LABS: ABSOLUTE BASOPHIL COUNT 0 /CUMM (0.0-0.2); ABSOLUTE EOSINOPHIL COUNT 1.5 /CUMM (0.0-0.7); ABSOLUTE GRANULOCYTE CT 10.7 /CUMM (1.4-6.5); ABSOLUTE LYMPH COUNT 1.6 /CUMM (1.2-3.4); ABSOLUTE MONOCYTE COUNT 1.1 /CUMM (0.10-0.60); BASOPHIL % 0.3 % (0.0-2.0); EOSINOPHIL % 9.8 % (0-5); HEMATOCRIT 27.8 % (42-52); MEAN CORPUSCULAR HGB 26.3 PG (27.0-31.0); MEAN CORPUSCULAR HGB CONC 31.1 G/DL (33.0-37.0); MEAN CORPUSCULAR VOLUME 84.4 FL (80.0-94.0); PLATELET COUNT 702 /CUMM (130-400); RBC DISTRIBUTION WIDTH 19.6 % (11.5-14.5); RED BLOOD CELL CT 3.29 /CUMM (4.70-6.10); WHITE BLOOD CELL COUNT 14.9 /CUMM (4.8-10.8)
--- NOTE | 2016-12-05 09:53 | PN- Att Addend ---
Attending Addendum Attending Brief Note Patient awake and alert General Appearance: Lethargic Skin: Decubitus ulcer HEENT: PEERLA Neck: Supple, No JVD Cardiovascular: Regular Rate, Normal S1, Normal S2, No Murmurs Lungs: Clear to Auscultation, Normal Air Movement Abdomen: Left colostomy bag and a suprapubic catheter Neurological: Paraplegic Extremities: No Clubbing, No Cyanosis, No Edema Vascular: Normal Pulses Assessment 71-year-old male with history of aortic abdominal aneurysm status post repair, paraplegia with suprapubic catheter, chronic nonhealing sacral decubitus ulcer, diabetes, dyslipidemia, coronary artery disease, hypertension sent from rehabilitation facility after abnormal labs including leukocytosis and elevated ESR of about 100. Patient was recently hospitalized and had a debridement by Roman Dumont MD with wound VAC. MRI shows S5 and ischeal tuberosity osteomyelitis without any collection or abscesses. Plastic surgery to perform debridement tomorrow with deep tissue cultures. Plan Continue Zosyn Nothing by mouth midnight Check ESR weekly Continue insulin and Accu-Cheks Continue other home meds DVT prophylaxis Current Medications Sig/Mey Start time Last Medication Dose Route Stop Time Status Admin Acetaminophen 650 MG Q6P PRN 11/29 2029 AC PO Albuterol Sulfate 3 ML TID 11/30 1600 AC 12/05 INH 0925 Allopurinol 100 MG DAILY 11/30 1000 AC 12/04 PO 0817 Atorvastatin Calcium 10 MG 2000 11/30 2000 AC 12/04 PO 2019 Citalopram 20 MG 1600 11/30 1600 AC 12/04 Hydrobromide PO 1739 Docusate Sodium 100 MG 1600 12/03 1600 AC 12/04 PO 1739 Donepezil HCl 10 MG DAILY 11/30 1000 AC 12/04 PO 0817 Enoxaparin Sodium 40 MG 2200 11/29 2200 AC 12/04 SC 2018 Guaifenesin 10 ML .STK-MED ONE 12/04 2022 DC PO 12/04 202 Guaifenesin 10 ML Q6P PRN 11/29 2345 AC 12/04 PO 202 Ibuprofen 800 MG .STK-MED ONE 12/04 1342 DC PO 12/04 1343 Ibuprofen 600 MG Q6P PRN 11/29 2030 AC 12/04 PO 1347 Insulin Aspart 0 TIDAC 11/30 0800 AC 12/04 SC 1741 Ipratropium [place] 2.5 ML TID 11/30 1600 AC 12/05 INH 0925 Levetiracetam 500 MG BID 11/29 2241 AC 12/04 PO 2019 Lisinopril 10 MG DAILY 11/30 1000 AC 12/04 PO 0817 Melatonin 3 MG AT BEDTIME 12/02 2346 AC 12/04 PO 2019 Memantine 10 MG BID 11/30 1000 AC 12/04 PO 2019 Mirtazapine 7.5 MG AT BEDTIME NEED.. 11/30 220 AC 12/04 PO 2220 Oxybutynin Chloride 10 MG TID 12/04 1600 AC 12/04 PO 2019 Oxycodone HCl 10 MG Q6P PRN 11/29 2030 AC 12/05 PO 0607 Piperacillin Sod/ 4.5 GM Q6H 12/01 2100 AC 12/05 Tazobactam Sod IV 0915 Sodium Chloride 100 ML Senna/Docusate Sodium 2 TAB DAILY 11/30 1000 AC 12/04 PO 0817 Sodium Hypochlorite 1 HILARIA BID 11/30 1000 AC 12/04 TOP 2225 Trazodone HCl 25 MG Q12P PRN 11/29 2245 AC 11/30 PO 0121 Laboratory Tests 12/05 0600 Chemistry Sodium (137 - 145 mmol/L) 145 Potassium (3.5 - 5.1 mmol/L) 5.1 Chloride (98 - 107 mmol/L) 101 Carbon Dioxide (22 - 30 mmol/L) 31 H Anion Gap (5 - 16) 13 BUN (9 - 20 mg/dL) 25 H Creatinine (0.7 - 1.2 mg/dL) 0.8 Estimated GFR (>60 ml/min) > 60 BUN/Creatinine Ratio (7 - 25 %) 31.3 H Hematology CBC w Diff NO MAN DIFF REQ WBC (4.8 - 10.8 /CUMM) 14.9 H RBC (4.70 - 6.10 /CUMM) 3.29 L Hgb (14.0 - 18.0 G/DL) 8.6 L Hct (42 - 52 %) 27.8 L MCV (80.0 - 94.0 FL) 84.4 MCH (27.0 - 31.0 PG) 26.3 L RDW (11.5 - 14.5 %) 19.6 H Plt Count (130 - 400 /CUMM) 702 H MPV (7.4 - 10.4 FL) 7.0 L Gran % (42.2 - 75.2 %) 72.0 Lymphocytes % (20.5 - 51.1 %) 10.6 L Monocytes % (1.7 - 9.3 %) 7.3 Eosinophils % (0 - 5 %) 9.8 H Basophils % (0.0 - 2.0 %) 0.3 Absolute Granulocytes (1.4 - 6.5 /CUMM) 10.7 H Absolute Lymphocytes (1.2 - 3.4 /CUMM) 1.6 Absolute Monocytes (0.10 - 0.60 /CUMM) 1.1 H Absolute Eosinophils (0.0 - 0.7 /CUMM) 1.5 Absolute Basophils (0.0 - 0.2 /CUMM) 0 PUBS MCHC (33.0 - 37.0 G/DL) 31.1 L ESR Westergren (0 - 10 MM) 129 H Vital Signs Date Time Temp Pulse Resp B/P Pulse O2 O2 Flow FiO2 Ox Delivery Rate 12/05 0928 95 Room Air 12/05 0645 97.4 72 20 140/80 95 Room Air 12/04 2138 98.2 80 20 130/80 95 12/04 1930 Room Air 12/04 1600 Room Air 12/04 1432 98.2 80 20 130/70 94
--- NOTE | 2016-12-05 13:09 | PN- Infect Dx ---
Subjective Subjective: No fever/chills. Fair appetite. No abdominal pain. Wound changed this afternoon; decreased local drainage. Review of Systems Comments: 12 points reviewed as noted, otherwise negative. Objective Last 24 Hrs of Vital Signs/I&O Vital Signs Date Time Temp Pulse Resp B/P Pulse O2 O2 Flow FiO2 Ox Delivery Rate 12/05 1037 84 144/58 12/05 0928 95 Room Air 12/05 0645 97.4 72 20 140/80 95 Room Air 12/04 2138 98.2 80 20 130/80 95 12/04 1930 Room Air 12/04 1600 Room Air 12/04 1432 98.2 80 20 130/70 94 Intake & Output 12/05 1600 12/05 0800 12/05 0000 Intake Total 390 630 Output Total 500 Balance -110 630 Intake, IV 150 150 Intake, Oral 240 480 Number 2 Bowel Movements Output, Urine 500 Physical Exam Other Physical Findings: Gen Afebrile, NAD HEENT AT, scleta anicteric, no thrush. Neck is supple with no adenopathy. Lungs BS present, scaterred b/l rhonchi w/ cough Heart S1 S2 present, no murmur. Abdomen is soft, nontender with positive bowel sounds; suprapubic tube in place, L colostomy. Skin large sacral decubitus extending to L ischial tuberosity; slough/necrotic tissue lower edge w/ probing to the bone Extremities no cyanosis, clubbing or edema. Neuro paraplegia, A&O x 3 Results Last 24 Hours of Lab Results: Laboratory Tests 12/05 0600 Chemistry Sodium (137 - 145 mmol/L) 145 Potassium (3.5 - 5.1 mmol/L) 5.1 Chloride (98 - 107 mmol/L) 101 Carbon Dioxide (22 - 30 mmol/L) 31 H Anion Gap (5 - 16) 13 BUN (9 - 20 mg/dL) 25 H Creatinine (0.7 - 1.2 mg/dL) 0.8 Estimated GFR (>60 ml/min) > 60 BUN/Creatinine Ratio (7 - 25 %) 31.3 H Hematology CBC w Diff NO MAN DIFF REQ WBC (4.8 - 10.8 /CUMM) 14.9 H RBC (4.70 - 6.10 /CUMM) 3.29 L Hgb (14.0 - 18.0 G/DL) 8.6 L Hct (42 - 52 %) 27.8 L MCV (80.0 - 94.0 FL) 84.4 MCH (27.0 - 31.0 PG) 26.3 L RDW (11.5 - 14.5 %) 19.6 H Plt Count (130 - 400 /CUMM) 702 H MPV (7.4 - 10.4 FL) 7.0 L Gran % (42.2 - 75.2 %) 72.0 Lymphocytes % (20.5 - 51.1 %) 10.6 L Monocytes % (1.7 - 9.3 %) 7.3 Eosinophils % (0 - 5 %) 9.8 H Basophils % (0.0 - 2.0 %) 0.3 Absolute Granulocytes (1.4 - 6.5 /CUMM) 10.7 H Absolute Lymphocytes (1.2 - 3.4 /CUMM) 1.6 Absolute Monocytes (0.10 - 0.60 /CUMM) 1.1 H Absolute Eosinophils (0.0 - 0.7 /CUMM) 1.5 Absolute Basophils (0.0 - 0.2 /CUMM) 0 PUBS MCHC (33.0 - 37.0 G/DL) 31.1 L ESR Westergren (0 - 10 MM) 129 H Last 24 Hours of Perfecto Results: SPEC #: [id number] TIP: 12/02/16 STATUS: RES RECD: 12/02/16-[address]: ALHAJI TIAN MD SOURCE: TRUNK ENTR: 12/02/16-[address]: KELSEY MULLIGAN,[facility] Avalos SPDESC: LUCY ANN MD,[facility] ORDERED: TRUNK CULTURE COMMENT: TYPE OF SPECIMEN: DEEP Procedure Result > GRAM STAIN Final 12/03/16-1140 WHITE BLOOD CELLS FEW SQUAMOUS CELLS NONE GRAM POSITIVE COCCI RARE > TRUNK AREA CULTURE Preliminary 12/05/16-1100 Scant mixed sagar after 3 days with 1. Light growth of BETA STREP GROUP G Penicillin and Ampicillin are drugs of choice for beta-hemolytic streptococcal infections. Susceptibility testing of penicillins and other beta-lactams are not routinely performed because non-susceptible isolates have only rarely been reported. Note: If patient is allergic to Penicillin, the laboratory can perform Clindamycin testing upon request. Please call within 5 days of final report. 2. Scant growth of : [employer] NOTE THIS IS A PRELIMINARY REPORT: IF: patient has had significant exposure to a healthcare setting in the past three (3) months, THEN: suspect Methicillin Resistant Staph aureus and place patient on Contact precautions PENDING susceptibility results TO FOLLOW Recent Imaging Studies: SERVICE DATE: 12/04/168 EXAM TYPE: RAD - XRY-PORTABLE CHEST XRAY EXAMINATION: XR PORTABLE CHEST CLINICAL INFORMATION: Peripherally inserted catheter for long-term antibiotic treatment. COMPARISON: CXR from 11/29/2016 TECHNIQUE: Portable AP view of the chest was obtained. FINDINGS: The right arm peripherally inserted catheter is in satisfactory position with its tip located in the distal third of the superior vena cava. There is chronic volume loss of the left lower lobe. Again noted are peribronchial opacities in the left lower lobe and elevation of the left diaphragm. There is linear opacity of minimal atelectasis or scar at the right lung base. No acute airspace opacification, pulmonary edema or pleural effusion. Cardiac silhouette and central pulmonary vessels are chronically enlarged. The sternotomy wires are intact. No acute skeletal findings. IMPRESSION: The right arm peripherally inserted catheter is in satisfactory position with its tip located in the distal superior vena cava. DICTATED BY: BAILEE RICKS MD DATE/TIME DICTATED:12/04/161332 FILM BOOKER:JANNA DATE/TIME TRANSCRIBED:12/04/161332 Assessment/Plan Impression: Mr. 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 G); OM sacrum and L ischial tuberosity ; local cx Strep gr G and S. aureus ( sensitivity pnd). Persistent leukocytosis Suggestion: 1. Monitor CBC, BMP. Nutrition per team. 2. Appreciate plastic surgery recom; please obtain deep wound cx/bone cx in OR; wound vac post debridement (surgery scheduled for 12/06). 3. Continue Zosyn 4.5 gm q 6 h D #5; if MRSA cx positive decubit wound add iv Vancomycin (dosed per pharmacy).
[2016-12-05 14:35] VITALS: BP 128/72
[2016-12-05 23:00] VITALS: BP 140/64
--- NOTE | 2016-12-06 05:58 | PN- Housestaff ---
Subjective Follow-up For: Sacral wound Pseudomonas UTI Subjective: I saw and examined the patient this AM. He has no complaints, waiting to go to the OR. Has been NPO since midnight. No pain in the upper back, no N/V, fever or chills. Review of Systems Constitutional: Denies: chills, fever. EENTM: Reports: no symptoms. Cardiovascular: Reports: no symptoms. Respiratory: Reports: no symptoms. Gastrointestinal: Reports: no symptoms. Genitourinary: Reports: no symptoms. Musculoskeletal: Reports: no symptoms. Objective Last 24 Hrs of Vital Signs/I&O Vital Signs Date Time Temp Pulse Resp B/P Pulse O2 O2 Flow FiO2 Ox Delivery Rate 12/06 0653 98.4 85 20 150/80 91 Room Air 12/05 2300 98.4 89 20 140/64 94 Room Air 12/05 1950 92 Room Air 12/05 1435 98.2 93 20 128/72 92 12/05 1037 84 144/58 12/05 0928 95 Room Air 12/05 0800 Room Air Intake & Output 12/06 0800 12/06 0000 12/05 1600 Intake Total 100 900 Output Total 750 250 300 Balance -750 -150 600 Intake, IV 100 Intake, Oral 100 800 Output, Stool 0 Output, Urine 750 250 300 Physical Exam General Appearance: Alert, Oriented X3, Cooperative, No Acute Distress Skin: skin around the ostomy bag and the suprapyubuc catheter is non- erythematous. nontender but patient does not have sensation from upper chest down. HEENT: Atraumatic, PERRLA, EOMI Neck: Supple Cardiovascular: Regular Rate, Normal S1, Normal S2, No Murmurs Lungs: Clear to Auscultation Abdomen: Normal Bowel Sounds, Soft Neurological: Normal Speech, forces 0/5 bilateral lower extremities Extremities: Normal Pulses, edema distal to the ankles in the feet and the toes, no pitting edema Vascular: Normal Pulses, Pulses Symmetrical Current Medications: Current Medications Sig/Mey Start time Last Medication Dose Route Stop Time Status Admin Acetaminophen 650 MG Q6P PRN 11/29 2030 AC PO Albuterol Sulfate 3 ML TID 11/30 1600 AC 12/05 INH 1950 Allopurinol 100 MG DAILY 11/30 1000 AC 12/05 PO 103 Atorvastatin Calcium 10 MG 11/30 AC 12/05 PO 2016 Citalopram 20 MG 1600 11/30 1600 AC 12/05 Hydrobromide PO 1604 Docusate Sodium 100 MG 1600 12/03 1600 AC 12/05 PO 1604 Donepezil HCl 10 MG DAILY 11/30 1000 AC 12/05 PO 1038 Enoxaparin Sodium 40 MG 2200 11/29 2200 AC 12/05 SC 2121 Guaifenesin 10 ML .STK-MED ONE 12/05 2125 DC PO 12/05 2127 Guaifenesin 10 ML Q6P PRN 11/29 2345 AC 12/05 PO 2128 Ibuprofen 600 MG Q6P PRN 11/29 2030 AC 12/04 PO 1347 Insulin Aspart 0 TIDAC 11/30 0800 AC 12/05 SC 1655 Ipratropium [place] 2.5 ML TID 11/30 1600 AC 12/05 INH 1950 Levetiracetam 500 MG BID 11/29 2241 AC 12/05 PO 2121 Lisinopril 10 MG DAILY 11/30 1000 AC 12/05 PO 1037 Melatonin 3 MG AT BEDTIME 12/02 2346 AC 12/05 PO 2121 Memantine 10 MG BID 11/30 1000 AC 12/05 PO 2121 Mirtazapine 7.5 MG AT BEDTIME NEED.. 11/30 2200 AC 12/04 PO 2220 Oxybutynin Chloride 10 MG TID 12/04 1600 AC 12/05 PO 2121 Oxycodone HCl 10 MG Q6P PRN 11/29 2030 AC 12/05 PO 1813 Piperacillin Sod/ 4.5 GM Q6H 12/01 2100 DC 12/05 Tazobactam Sod IV 1604 Sodium Chloride 100 ML Senna/Docusate Sodium 2 TAB DAILY 11/30 1000 AC 12/05 PO 1039 Sodium Hypochlorite 1 HILARIA BID 11/30 1000 AC 12/05 TOP 2122 Trazodone HCl 25 MG Q12P PRN 11/29 2245 AC 11/30 PO 0121 Last 24 Hrs of Lab/Perfecto Results Last 24 Hrs of Labs/Mics: Laboratory Tests 12/06/16 0645: Sodium Pending, Potassium Pending, Chloride Pending, Carbon Dioxide Pending, Anion Gap Pending, BUN Pending, Creatinine Pending, BUN/Creatinine Ratio Pending , CBC w Diff Pending, WBC Pending, RBC Pending, Hgb Pending, Hct Pending, MCV Pending, MCH Pending, RDW Pending, Plt Count Pending, MPV Pending, PUBS MCHC Pending Assessment/Plan Assessment: Mr. 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 Patient is admitted to the general medicine floor and the following is the management: 1. Leukocytosis, unknown source - trending down, stable Sources of infection include: Left-sided gram negative pneumonia, urinary ( chronic indwelling catheter), decubitus ulcer. patient has remained afebrile * Initial CXR showed likely left sided airspace disease * Antibiotics changed to Zosyn 4.5 every 6 hours per ID recommendation ( appreciated) on 12/02/16 * MRI of the lumbar spine: Osteomyelitis of the S5 segment of the sacrum with absence of the coccyx and an overlying sacral decubitus ulcer which extends to the depth of bone. Osteomyelitis of the left ischial tuberosity with overlying decubitus ulcer extending to the depth of bone. This decubitus ulcer is contiguous with the aforementioned sacral ulcer. * repeat blood culture per ID recommendations: NG AFTER 1 D * Urine culture shows gram negative rods, however consider contamination * Robitussin PRN for cough * patient will go t the OR today 12/06/16 for debridement, will obtain deep wound and bone culture 2. Suprapubic catheter * Suprapubic catheter needed s/p paraplegia * Urine culture currently show gram negative rods * Catheter changed during this admission, has been functioning properly * Patient is started on Oxybutinin 30 mg daily since 12/04/16 per Urology 3. Decubitus ulcer * Stage 4 decubitus ulcer present on admission along with rectal ulcer as noted by Dr. Guzman (wound consult appreciated) * No current wound vac in place due to masseration * Discussed patient with Dr. Hauser today over the phone, he reports patient was scheduled for a flap as an outpatient but now that he is admitted with sepsis 2/ 2 UTI, he will cancel this for now * Dressing with quarter strength Dakin's moistened gauze changed twice daily * Offloading mattress ordered * Patient will go to the OR tomorrow for I&D 4. DM * Continue NSS TIDAC * Accuchecks 5. Seizure history * Continue keppra 500 mg PO BID 6. HTN, HLD * Lipitor 10 mg PO daily * Lisinopril 10 mg PO daily 7. Bipolar depression * Continue celexa and trazodone * Aricept 10 mg PO daily * Continue remeron 7.5 mg PO QPM DNR/DNI Diet: CC2 Mild pain pathway DVTP: SC Lovenox Problem List: 1. Hypertension 2. Hyperlipidemia 3. Decubitus ulcer 4. Anemia Pain Ratin Pain Location: none Pain Goal: Pain 4 or less Pain Plan: mild pain pathway Tomorrow's Labs & Rationales: CBC (osteomyelitis)
[2016-12-06 06:53] VITALS: BP 150/80
[2016-12-06 08:05] LABS: ABSOLUTE BASOPHIL COUNT 0 /CUMM (0.0-0.2); ABSOLUTE EOSINOPHIL COUNT 1.2 /CUMM (0.0-0.7); ABSOLUTE GRANULOCYTE CT 14.9 /CUMM (1.4-6.5); ABSOLUTE LYMPH COUNT 1.4 /CUMM (1.2-3.4); ABSOLUTE MONOCYTE COUNT 1.2 /CUMM (0.10-0.60); BASOPHIL % 0.2 % (0.0-2.0); EOSINOPHIL % 6.4 % (0-5); GRANULOCYTE % 79.4 % (42.2-75.2); HEMATOCRIT 27.7 % (42-52); MEAN CORPUSCULAR HGB 26.6 PG (27.0-31.0); MEAN CORPUSCULAR HGB CONC 31.8 G/DL (33.0-37.0); MEAN CORPUSCULAR VOLUME 83.7 FL (80.0-94.0); PLATELET COUNT 723 /CUMM (130-400); WHITE BLOOD CELL COUNT 18.8 /CUMM (4.8-10.8)
--- NOTE | 2016-12-06 09:41 | PN- Att Addend ---
Attending Addendum Attending Brief Note Patient awake and alert General Appearance: Lethargic Skin: Decubitus ulcer HEENT: PEERLA Neck: Supple, No JVD Cardiovascular: Regular Rate, Normal S1, Normal S2, No Murmurs Lungs: Clear to Auscultation, Normal Air Movement Abdomen: Left colostomy bag and a suprapubic catheter Neurological: Paraplegic Extremities: No Clubbing, No Cyanosis, No Edema Vascular: Normal Pulses Assessment 71-year-old male with history of aortic abdominal aneurysm status post repair, paraplegia with suprapubic catheter, chronic nonhealing sacral decubitus ulcer, diabetes, dyslipidemia, coronary artery disease, hypertension sent from rehabilitation facility after abnormal labs including leukocytosis and elevated ESR of about 100. Patient was recently hospitalized and had a debridement by Roman Dumont MD with wound VAC. MRI shows S5 and ischeal tuberosity osteomyelitis without any collection or abscesses. Plastic surgery to perform debridement today with deep tissue cultures. Wound cultures from the admission how come back positive for light growth of beta strep and staph aureus. We will add vancomycin in addition to Zosyn pending identification from the cultures that will be obtained in the OR today. Plan Add vancomycin pending repeat OR cultures Continue Zosyn Check ESR weekly Continue insulin and Accu-Cheks Continue other home meds DVT prophylaxis Current Medications Sig/Mey Start time Last Medication Dose Route Stop Time Status Admin Acetaminophen 650 MG Q6P PRN 11/29 2030 AC PO Albuterol Sulfate 3 ML TID 11/30 1600 AC 12/06 INH 0819 Allopurinol 100 MG DAILY 11/30 1000 AC 12/05 PO 1039 Atorvastatin Calcium 10 MG 2000 11/30 2000 AC 12/05 PO 2016 Citalopram 20 MG 1600 11/30 1600 AC 12/05 Hydrobromide PO 1604 Docusate Sodium 100 MG 1600 12/03 1600 AC 12/05 PO 1604 Donepezil HCl 10 MG DAILY 11/30 1000 AC 12/05 PO 1038 Enoxaparin Sodium 40 MG 0 11/29 2199 AC 12/05 SC 2120 Guaifenesin 10 ML .STK-MED ONE 12/05 2125 DC PO 12/05 2126 Guaifenesin 10 ML Q6P PRN 11/29 2345 AC 12/05 PO 2128 Ibuprofen 600 MG Q6P PRN 11/29 2030 AC 12/04 PO 1347 Insulin Aspart 0 TIDAC 11/30 0800 AC 12/05 SC 1655 Ipratropium [place] 2.5 ML TID 11/30 1600 AC 12/06 INH 0820 Levetiracetam 500 MG BID 11/29 2241 AC 12/05 PO 2121 Lisinopril 10 MG DAILY 11/30 1000 AC 12/05 PO 1037 Melatonin 3 MG AT BEDTIME 12/02 2346 AC 12/05 PO 2121 Memantine 10 MG BID 11/30 1000 AC 12/05 PO 2121 Mirtazapine 7.5 MG AT BEDTIME NEED.. 11/30 2200 AC 12/04 PO 2220 Oxybutynin Chloride 10 MG TID 12/04 1600 AC 12/05 PO 2121 Oxycodone HCl 10 MG Q6P PRN 11/29 2030 AC 12/05 PO 1813 Piperacillin Sod/ 4.5 GM Q6H 12/01 2100 DC 12/05 Tazobactam Sod IV 1604 Sodium Chloride 100 ML Senna/Docusate Sodium 2 TAB DAILY 11/30 1000 AC 12/05 PO 1039 Sodium Hypochlorite 1 HILARIA BID 11/30 1000 AC 12/05 TOP 2122 Trazodone HCl 25 MG Q12P PRN 11/29 224 AC 11/30 PO 0121 Laboratory Tests 12/06 0645 Chemistry Sodium (137 - 145 mmol/L) 138 Potassium (3.5 - 5.1 mmol/L) 4.7 Chloride (98 - 107 mmol/L) 97 L Carbon Dioxide (22 - 30 mmol/L) 28 Anion Gap (5 - 16) 12 BUN (9 - 20 mg/dL) 24 H Creatinine (0.7 - 1.2 mg/dL) 0.7 Estimated GFR (>60 ml/min) > 60 BUN/Creatinine Ratio (7 - 25 %) 34.3 H Hematology CBC w Diff NO MAN DIFF REQ WBC (4.8 - 10.8 /CUMM) 18.8 H RBC (4.70 - 6.10 /CUMM) 3.30 L Hgb (14.0 - 18.0 G/DL) 8.8 L Hct (42 - 52 %) 27.7 L MCV (80.0 - 94.0 FL) 83.7 MCH (27.0 - 31.0 PG) 26.6 L RDW (11.5 - 14.5 %) 20.0 H Plt Count (130 - 400 /CUMM) 723 H MPV (7.4 - 10.4 FL) 7.0 L Gran % (42.2 - 75.2 %) 79.4 H Lymphocytes % (20.5 - 51.1 %) 7.5 L Monocytes % (1.7 - 9.3 %) 6.5 Eosinophils % (0 - 5 %) 6.4 H Basophils % (0.0 - 2.0 %) 0.2 Absolute Granulocytes (1.4 - 6.5 /CUMM) 14.9 H Absolute Lymphocytes (1.2 - 3.4 /CUMM) 1.4 Absolute Monocytes (0.10 - 0.60 /CUMM) 1.2 H Absolute Eosinophils (0.0 - 0.7 /CUMM) 1.2 Absolute Basophils (0.0 - 0.2 /CUMM) 0 PUBS MCHC (33.0 - 37.0 G/DL) 31.8 L Vital Signs Date Time Temp Pulse Resp B/P Pulse O2 O2 Flow FiO2 Ox Delivery Rate 12/06 0653 98.4 85 20 150/80 91 Room Air 12/05 2300 98.4 89 20 140/64 94 Room Air 12/05 1950 92 Room Air 12/05 1435 98.2 93 20 128/72 92 12/05 1037 84 144/58
[2016-12-06 14:25] VITALS: BP 130/80; BP 150/70
--- NOTE | 2016-12-06 14:50 | PN- Infect Dx ---
Subjective Subjective: No fever or chills. No productive cough. Awaits sx later this afternoon. Review of Systems Comments: 12 points reviewed as noted, otherwise negative. Objective Last 24 Hrs of Vital Signs/I&O Vital Signs Date Time Temp Pulse Resp B/P Pulse O2 O2 Flow FiO2 Ox Delivery Rate 12/06 1425 97.2 82 20 150/70 98 12/06 1359 93 Room Air Room Air 12/06 0653 98.4 85 20 150/80 91 Room Air 12/05 2300 98.4 89 20 140/64 94 Room Air 12/05 1950 92 Room Air Intake & Output 12/06 1600 12/06 0800 12/06 0000 Intake Total 100 Output Total 400 750 250 Balance -400 -750 -150 Intake, Oral 100 Output, Stool 0 Output, Urine 400 750 250 Physical Exam Other Physical Findings: Gen Afebrile, NAD HEENT AT, scleta anicteric, no thrush. Neck is supple with no adenopathy. Lungs BS present, scaterred b/l rhonchi w/ cough Heart S1 S2 present, no murmur. Abdomen is soft, nontender with positive bowel sounds; suprapubic tube in place, L colostomy. Skin large sacral decubitus extending to L ischial tuberosity; slough/necrotic tissue lower edge; dressing in place Extremities no cyanosis, clubbing or edema. Neuro paraplegia, A&O x 3 Results Last 24 Hours of Lab Results: Laboratory Tests 12/06 0645 Chemistry Sodium (137 - 145 mmol/L) 138 Potassium (3.5 - 5.1 mmol/L) 4.7 Chloride (98 - 107 mmol/L) 97 L Carbon Dioxide (22 - 30 mmol/L) 28 Anion Gap (5 - 16) 12 BUN (9 - 20 mg/dL) 24 H Creatinine (0.7 - 1.2 mg/dL) 0.7 Estimated GFR (>60 ml/min) > 60 BUN/Creatinine Ratio (7 - 25 %) 34.3 H Hematology CBC w Diff NO MAN DIFF REQ WBC (4.8 - 10.8 /CUMM) 18.8 H RBC (4.70 - 6.10 /CUMM) 3.30 L Hgb (14.0 - 18.0 G/DL) 8.8 L Hct (42 - 52 %) 27.7 L MCV (80.0 - 94.0 FL) 83.7 MCH (27.0 - 31.0 PG) 26.6 L RDW (11.5 - 14.5 %) 20.0 H Plt Count (130 - 400 /CUMM) 723 H MPV (7.4 - 10.4 FL) 7.0 L Gran % (42.2 - 75.2 %) 79.4 H Lymphocytes % (20.5 - 51.1 %) 7.5 L Monocytes % (1.7 - 9.3 %) 6.5 Eosinophils % (0 - 5 %) 6.4 H Basophils % (0.0 - 2.0 %) 0.2 Absolute Granulocytes (1.4 - 6.5 /CUMM) 14.9 H Absolute Lymphocytes (1.2 - 3.4 /CUMM) 1.4 Absolute Monocytes (0.10 - 0.60 /CUMM) 1.2 H Absolute Eosinophils (0.0 - 0.7 /CUMM) 1.2 Absolute Basophils (0.0 - 0.2 /CUMM) 0 PUBS MCHC (33.0 - 37.0 G/DL) 31.8 L Last 24 Hours of Perfecto Results: SPEC #: [id number] TIP: 12/02/16 STATUS: COMP RECD: 12/02/[address] [facility] [address] SOURCE: TRUNK ENTR: 12/02/16 [facility] DR: KELSEY MULLIGAN,SLIM Avalos SPDESC: LUCY ANN MD,[facility] ORDERED: TRUNK CULTURE COMMENT: TYPE OF SPECIMEN: DEEP Procedure Result > GRAM STAIN Final 12/03/16-1140 WHITE BLOOD CELLS FEW SQUAMOUS CELLS NONE GRAM POSITIVE COCCI RARE > TRUNK AREA CULTURE Final 12/06/16-939 Scant mixed sagar after 3 days with 1. Light growth of BETA STREP GROUP G Penicillin and Ampicillin are drugs of choice for beta-hemolytic streptococcal infections. Susceptibility testing of penicillins and other beta-lactams are not routinely performed because non-susceptible isolates have only rarely been reported. Note: If patient is allergic to Penicillin, the laboratory can perform Clindamycin testing upon request. Please call within 5 days of final report. 2. Scant growth of : METH RESIST STAPH AUREUS ISOLATED Called to/Readback by EL by [facility] 12/06/16 0937 2. METH RESIST STAPH AUREUS RX AB ------ -- CEFAZOLIN R AMOXICILLIN/CLAVULINIC ACID R AMPICILLIN/SULBACTAM R TETRACYCLINE S TRIMETHOPRIM/SULFAMETHOXAZOLE S AZITHROMYCIN R CLINDAMYCIN R ERYTHROMYCIN R OXACILLIN R VANCOMYCIN S ATTENTIONATTENTIONPLACE PATIENT ON CONTACT PRECAUTIONS Recent Imaging Studies: MRI: IMPRESSION: 1. Osteomyelitis of the S5 segment of the sacrum with absence of the coccyx and an overlying sacral decubitus ulcer which extends to the depth of bone. No abscess. 2. Osteomyelitis of the left ischial tuberosity with overlying decubitus ulcer extending to the depth of bone. This decubitus ulcer is contiguous with the aforementioned sacral ulcer. 3. No additional foci of osteomyelitis are identified within the lumbar spine. Degeneration, edema, and cortical irregularity are present at the pubic symphysis which is only partially included on this study. Pubic symphyseal infection is not excluded. 4. Multilevel degenerative disc disease in the lumbar spine, most severe at L2-L3. There is [id number] multilevel facet arthropathy. 5. Swubzjat-[id number] central canal stenosis at L4-L5. DICTATED BY: RUSS MINAYA MD DATE/TIME DICTATED:12/03/161318 SURGERY TEACHER:JANNA DATE/TIME TRANSCRIBED:12/03/161318 Assessment/Plan Impression: Mr. 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 G); OM sacrum and L ischial tuberosity ; local cx Strep gr G and MRSA. Worsening leukocytosis Suggestion: 1. Monitor CBC, BMP. Nutrition per team. 2. Obtain deep wound cx/bone cx in OR; planned wound vac post debridement. 3. Continue Zosyn 4.5 gm q 6 h D #6; add iv Vancomycin (dosed per pharmacy; goal trough 15-20). 4. If increased colostomy output check C. difficile toxin/antigen.
[2016-12-06 17:03] VITALS: BP 150/68
[2016-12-06 21:00] VITALS: BP 150/70
[2016-12-07 00:27] VITALS: BP 154/80
[2016-12-07 05:07] VITALS: BP 140/70
--- NOTE | 2016-12-07 07:00 | PN- Housestaff ---
Subjective Follow-up For: SACRAL DECUBITUS, BETA STREP GROUP B AND MRSA + PSEUDOMONAS UTI Subjective: I have seen and examined the patient this AM, he is sleeping in bed, when awakened reports no complaints. Does not appear to be in distress or feverish. Went to the OR yesterday for debridement, cultures are pending. colostomy bag contains small amount of brown formed stool. Review of Systems Constitutional: Denies: chills, fever. EENTM: Reports: no symptoms. Cardiovascular: Reports: no symptoms. Respiratory: Reports: cough. Denies: short of breath, sputum production. Gastrointestinal: Reports: no symptoms. Genitourinary: Reports: no symptoms. Musculoskeletal: Reports: no symptoms. Skin: Reports: no symptoms. Neurological/Psychological: Reports: weakness. Objective Last 24 Hrs of Vital Signs/I&O Vital Signs Date Time Temp Pulse Resp B/P Pulse O2 O2 Flow FiO2 Ox Delivery Rate 12/07 0507 97.7 86 20 140/70 94 Nasal 2.0L Cannula 12/07 0027 98.2 100 20 154/80 93 Nasal 2.0L Cannula 12/06 2115 97 Nasal 2.0L Cannula 12/06 2100 97.9 100 20 150/70 95 Nasal 2.0L Cannula 12/06 1703 97.8 86 20 150/68 95 Room Air 12/06 1425 97.2 82 20 150/70 98 12/06 1359 93 Room Air Room Air 12/06 0800 Room Air Intake & Output 12/07 0800 12/07 0000 12/06 1600 Intake Total 355 Output Total 100 1000 Balance -100 -645 Intake, IV 350 Intake, Oral 5 Output, Stool 600 Output, Urine 100 400 Physical Exam General Appearance: Alert, Oriented X3, Cooperative, No Acute Distress Skin: No Rashes, No Breakdown, No Significant Lesion, no erythema on the skin around the colostomy bag and around the suprapubic catheter. HEENT: Atraumatic, PERRLA, EOMI, Mucous Membr. moist/pink Neck: Supple Cardiovascular: Regular Rate, Normal S1, Normal S2, 2/6 systolic murmur Lungs: Normal Air Movement, scattered rhonchi on both lungs Abdomen: Normal Bowel Sounds, Soft Neurological: Normal Speech, paraplegia, full forces on the upper extremities Extremities: Normal Pulses, patient has PICC line inserted on the right upper arm, no erythema and tenderness noted. edema noted on the feet and toes, unchanged compared to yesterday Vascular: Pulses Symmetrical Current Medications: Current Medications Sig/Mey Start time Last Medication Dose Route Stop Time Status Admin Acetaminophen 650 MG Q6P PRN 11/29 2030 AC PO Albuterol Sulfate 3 ML TID 11/30 1600 AC 12/06 INH 0819 Allopurinol 100 MG DAILY 11/30 1000 AC 12/05 PO 1039 Atorvastatin Calcium 10 MG 11/30 2000 AC 12/06 PO 2323 Citalopram 20 MG 1600 11/30 1600 AC 12/05 Hydrobromide PO 1604 Dextrose/Sodium 1,000 ML Q20H 12/06 1330 DC 12/06 Chloride IV 1342 Docusate Sodium 100 MG 1600 12/03 1600 AC 12/06 PO 2322 Donepezil HCl 10 MG DAILY 11/30 1000 AC 12/05 PO 1038 Enoxaparin Sodium 40 MG 2200 11/29 2200 AC 12/06 SC 2323 Fentanyl Citrate 100 MCG .STK-MED ONE 12/06 1739 DC IM 12/06 1740 Guaifenesin 10 ML Q6P PRN 11/29 2345 AC 12/06 PO 2323 Ibuprofen 600 MG Q6P PRN 11/29 2030 AC 12/06 PO 2324 Insulin Aspart 0 TIDAC 12/07 0800 AC SC Insulin Aspart 0 TIDAC 11/30 0800 DC 12/05 SC 1655 Insulin Human Regular 0 Q6 12/06 1200 DC 12/06 SC 1342 Ipratropium [place] 2.5 ML TID 11/30 1600 AC 12/06 INH 0820 Levetiracetam 500 MG BID 11/29 2241 AC 12/06 PO 2321 Lisinopril 10 MG DAILY 11/30 1000 AC 12/05 PO 1037 Melatonin 3 MG AT BEDTIME 12/02 2346 AC 12/06 PO 2323 Memantine 10 MG BID 11/30 1000 AC 12/06 PO 2321 Midazolam HCl 2 MG .STK-MED ONE 12/06 1739 [place] IM 12/06 1740 Mirtazapine 7.5 MG AT BEDTIME NEED.. 11/30 2200 AC 12/04 PO 2220 Oxybutynin Chloride 10 MG TID 12/04 1600 AC 12/06 PO 2322 Oxycodone HCl 10 MG Q6P PRN 12/07 0645 AC PO Oxycodone HCl 10 MG Q6P PRN 11/29 2030 DC 12/05 PO 1813 Senna/Docusate Sodium 2 TAB DAILY 11/30 1000 AC 12/05 PO 1039 Sodium Hypochlorite 1 HILARIA BID 11/30 1000 AC 12/06 [facility] 2328 Trazodone HCl 25 MG Q12P PRN 11/29 2245 AC 11/30 PO 0121 Vancomycin HCl 1,250 MG Q12H 12/06 1045 AC 12/06 Dextrose/Water 250 ML IV 2328 Last 24 Hrs of Lab/Perfecto Results Last 24 Hrs of Labs/Mics: Microbiology 12/06 183 TRUNK/O.R.: Culture & Sensitivity - RECD 12/06 183 TRUNK/O.R.: Gram Stain - RECD 12/06 183 TRUNK/O.R.: Culture & Sensitivity - RECD 12/06 183 TRUNK/O.R.: Gram Stain - RECD 12/06 0800 TRUNK: Culture & Sensitivity - COLB 12/06 0800 TRUNK: Gram Stain - COLB Assessment/Plan Assessment: Mr. 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, currently with an indwelling suprapubic catheter, ostomy bag non-healing sacral decubitus ulcer, diabetes mellitus, hyperlipidemia, coronary artery disease, hypertension, GERD, anxiety and depression who was brought in by ambulance to the [facility] ED from extended care facility wdue to leukocytosis and cough. Patient is admitted to the general medicine floor and the following is the management: 1. Leukocytosis, possible sources: UTI (chronic indewlling catheter, ducubitus ulcer, Pneumonia (respiratory culture grew G negative bacteria). patient has remained afebrile. WBC was increased yesterday * Initial CXR showed likely left sided airspace disease * Received Zosyn 4.5 every 6 hours per ID recommendation on 12/01/16 completed 5 days on 12/05/15. * MRI of the lumbar spine: Osteomyelitis of the S5 segment of the sacrum with absence of the coccyx and an overlying sacral decubitus ulcer which extends to the depth of bone. Osteomyelitis of the left ischial tuberosity with overlying decubitus ulcer extending to the depth of bone. This decubitus ulcer is contiguous with the aforementioned sacral ulcer. * Repeat blood culture on 12/03/16: NG so far * Urine culture shows gram negative rods, however consider contamination * Robitussin PRN for cough 2. UTI * Suprapubic catheter needed s/p paraplegia * Urine culture currently show gram negative rods * Catheter changed during this admission, has been functioning properly * Patient is started on Oxybutinin 30 mg daily since 12/04/16 per Urology 3. Decubitus ulcer * Stage 4 decubitus ulcer present on admission along with rectal ulcer as noted by Dr. Guzman (wound consult appreciated) * No current wound vac in place due to masseration * Discussed patient with Dr. Hauser over the phone, he reports patient was scheduled for a flap as an outpatient but now that he is admitted with sepsis 2/ 2 UTI, he will cancel this for now * Dressing with quarter strength Dakin's moistened gauze changed twice daily * Offloading mattress ordered * Due to MRSA + wound culture we also added IV vancomycin 1.25 g Q12 (per pharmacy) on 12/06/16. * patient went to the OR on 12/06/16 for debridement, obtained deep wound and bone culture, will follow results * vanco trough tomorrow AM 4. DM * Continue NSS TIDAC * Accuchecks 5. Seizure history * Continue keppra 500 mg PO BID 6. HTN, HLD * Lipitor 10 mg PO daily * Lisinopril 10 mg PO daily 7. Bipolar depression * Continue celexa and trazodone * Aricept 10 mg PO daily * Continue remeron 7.5 mg PO QPM DNR/DNI Diet: CC2 Mild pain pathway DVTP: SC Lovenox Problem List: 1. Hemiplegia 2. Osteomyelitis 3. Bacteremia 4. Anemia 5. S/P CABG (coronary artery bypass graft) 6. S/P AAA (abdominal aortic aneurysm) repair 7. UTI (lower urinary tract infection) Pain Ratin Pain Location: currently no pain, had pain in upper back Pain Goal: Pain 4 or less Pain Plan: oxycodone for severe pain tylenol for mild pain Tomorrow's Labs & Rationales: CBC (osteomyelitis)
--- NOTE | 2016-12-07 08:04 | PN- Wound Care ---
Subjective Subjective: Status post surgical debridement bone biopsy and cultures pending. Objective Vital Signs and I&Os Vital Signs Result Date Time Pulse Ox 94 12/07 0507 B/P 140/70 12/07 0507 O2 Delivery Nasal Cannula 12/07 050 O2 Flow Rate 2.0L 12/07 050 Temp 97.7 12/07 050 Pulse 86 12/07 0507 Resp 20 12/07 0507 Intake & Output 12/07 0000 12/06 1600 12/06 0800 Intake Total 355 Output Total 100 1000 750 Balance -100 -645 -750 Intake, IV 350 Intake, Oral 5 Output, Stool 600 Output, Urine 100 400 750 Physical Exam: Wounds examined there is extensive exposed necrotic bone there is residual slough low decreased amount. Impression/Plan Impression/Plan Impression/Plan: 71-year-old gentleman paraplegic admitted with leukocytosis of uncertain etiology potential sources are lung urine and wound. Wound continues to have extensive necrotic bone. We'll discuss with Dr. Jung plans for future debridement as well as appropriateness of VAC placement. Into new antibiotics per ID and would change to [place] bed
[2016-12-07 08:59] LABS: ABSOLUTE BASOPHIL COUNT 0 /CUMM (0.0-0.2); ABSOLUTE GRANULOCYTE CT 11.7 /CUMM (1.4-6.5); ABSOLUTE LYMPH COUNT 1.4 /CUMM (1.2-3.4); ABSOLUTE MONOCYTE COUNT 1.3 /CUMM (0.10-0.60); BASOPHIL % 0.2 % (0.0-2.0); EOSINOPHIL % 6.4 % (0-5); GRANULOCYTE % 75.7 % (42.2-75.2); HEMATOCRIT 28.1 % (42-52); MEAN CORPUSCULAR HGB 26.7 PG (27.0-31.0); MEAN CORPUSCULAR HGB CONC 31.6 G/DL (33.0-37.0); MEAN CORPUSCULAR VOLUME 84.5 FL (80.0-94.0); MEAN PLATELET VOLUME 6.8 FL (7.4-10.4); PLATELET COUNT 712 /CUMM (130-400); RBC DISTRIBUTION WIDTH 20.5 % (11.5-14.5); RED BLOOD CELL CT 3.32 /CUMM (4.70-6.10); WHITE BLOOD CELL COUNT 15.4 /CUMM (4.8-10.8)
--- NOTE | 2016-12-07 09:35 | PN- Att Addend ---
Attending Addendum Attending Brief Note Patient awake and alert General Appearance: Lethargic Skin: Decubitus ulcer HEENT: PEERLA Neck: Supple, No JVD Cardiovascular: Regular Rate, Normal S1, Normal S2, No Murmurs Lungs: Clear to Auscultation, Normal Air Movement Abdomen: Left colostomy bag and a suprapubic catheter Neurological: Paraplegic Extremities: No Clubbing, No Cyanosis, No Edema Vascular: Normal Pulses Assessment 71-year-old male with history of aortic abdominal aneurysm status post repair, paraplegia with suprapubic catheter, chronic nonhealing sacral decubitus ulcer, diabetes, dyslipidemia, coronary artery disease, hypertension sent from rehabilitation facility after abnormal labs including leukocytosis and elevated ESR of about 100. Patient was recently hospitalized and had a debridement by Roman Dumont MD with wound VAC. MRI shows S5 and ischeal tuberosity osteomyelitis without any collection or abscesses. Plastic surgery performed debridement with deep tissue cultures showing gram-positive cocci. Plan Continue vancomycin and discuss with ID about discontinuing Zosyn Follow deep tissue culture from or Vanco trough once weekly Check ESR weekly Continue insulin and Accu-Cheks Continue other home meds DVT prophylaxis Current Medications Sig/Mey Start time Last Medication Dose Route Stop Time Status Admin Acetaminophen 650 MG Q6P PRN 11/29 2030 AC PO Albuterol Sulfate 3 ML TID 11/30 1600 AC 12/07 INH 0848 Allopurinol 100 MG DAILY 11/30 1000 AC 12/07 PO 0910 Atorvastatin Calcium 10 MG 2000 11/30 2000 AC 12/06 PO 2323 Bacitracin 1 UNITS .STK-MED ONE 12/06 0934 DC IM 12/06 0935 Cefazolin Sodium 1,000 MG .STK-MED ONE 12/06 0934 DC IV 12/06 0935 Citalopram 20 MG 1600 11/30 1600 AC 12/05 Hydrobromide PO 1604 Dextrose/Sodium 1,000 ML Q20H 12/06 1330 DC 12/06 Chloride IV 1342 Docusate Sodium 100 MG 1600 12/03 1600 AC 12/06 PO 2322 Donepezil HCl 10 MG DAILY 11/30 1000 AC 12/07 PO 0909 Enoxaparin Sodium 40 MG 2200 11/29 2200 AC 12/06 SC 2323 Fentanyl Citrate 100 MCG .STK-MED ONE 12/06 1739 DC IM 12/06 1740 Guaifenesin 10 ML .STK-MED ONE 12/06 2316 DC PO 12/06 2317 Guaifenesin 10 ML Q6P PRN 11/29 2345 AC 12/06 PO 2323 Ibuprofen 800 MG .STK-MED ONE 12/06 2316 DC PO 12/06 2317 Ibuprofen 600 MG Q6P PRN 11/29 2030 AC 12/06 PO 2324 Insulin Aspart 0 TIDAC 12/07 0800 AC SC Insulin Aspart 0 TIDAC 11/30 0800 DC 12/05 SC 1655 Insulin Human Regular 0 Q6 12/06 1200 DC 12/06 SC 1342 Ipratropium [place] 2.5 ML TID 11/30 1600 AC 12/07 INH 0848 Levetiracetam 500 MG BID 11/29 2241 AC 12/07 PO 0909 Lisinopril 10 MG DAILY 11/30 1000 AC 12/07 PO 0910 Melatonin 3 MG AT BEDTIME 12/02 2346 AC 12/06 PO 2323 Memantine 10 MG BID 11/30 1000 AC 12/07 PO 0909 Midazolam HCl 2 MG .STK-MED ONE 12/06 1739 DC IM 12/06 1740 Mirtazapine 7.5 MG AT BEDTIME NEED.. 11/30 2200 AC 12/04 PO 2220 Oxybutynin Chloride 10 MG TID 12/04 1600 AC 12/07 PO 0909 Oxycodone HCl 10 MG Q6P PRN 12/07 0645 AC PO Oxycodone HCl 10 MG Q6P PRN 11/29 2030 DC 12/05 PO 1813 Senna/Docusate Sodium 2 TAB DAILY 11/30 1000 AC 12/07 PO 0910 Sodium Hypochlorite 1 HILARIA BID 11/30 1000 AC 12/07 TOP 0910 Trazodone HCl 25 MG Q12P PRN 11/29 2245 AC 11/30 PO 0121 Vancomycin HCl 1,250 MG Q12H 12/06 1045 AC 12/06 Dextrose/Water 250 ML IV 2328 Laboratory Tests 12/07 0640 Chemistry Sodium (137 - 145 mmol/L) 141 Potassium (3.5 - 5.1 mmol/L) 4.5 Chloride (98 - 107 mmol/L) 100 Carbon Dioxide (22 - 30 mmol/L) 32 H Anion Gap (5 - 16) 10 BUN (9 - 20 mg/dL) 22 H Creatinine (0.7 - 1.2 mg/dL) 0.8 Estimated GFR (>60 ml/min) > 60 BUN/Creatinine Ratio (7 - 25 %) 27.5 H Magnesium (1.6 - 2.3 mg/dL) 2.4 H Hematology CBC w Diff NO MAN DIFF REQ WBC (4.8 - 10.8 /CUMM) 15.4 H RBC (4.70 - 6.10 /CUMM) 3.32 L Hgb (14.0 - 18.0 G/DL) 8.9 L Hct (42 - 52 %) 28.1 L MCV (80.0 - 94.0 FL) 84.5 MCH (27.0 - 31.0 PG) 26.7 L RDW (11.5 - 14.5 %) 20.5 H Plt Count (130 - 400 /CUMM) 712 H MPV (7.4 - 10.4 FL) 6.8 L Gran % (42.2 - 75.2 %) 75.7 H Lymphocytes % (20.5 - 51.1 %) 9.0 L Monocytes % (1.7 - 9.3 %) 8.7 Eosinophils % (0 - 5 %) 6.4 H Basophils % (0.0 - 2.0 %) 0.2 Absolute Granulocytes (1.4 - 6.5 /CUMM) 11.7 H Absolute Lymphocytes (1.2 - 3.4 /CUMM) 1.4 Absolute Monocytes (0.10 - 0.60 /CUMM) 1.3 H Absolute Eosinophils (0.0 - 0.7 /CUMM) 1.0 Absolute Basophils (0.0 - 0.2 /CUMM) 0 PUBS MCHC (33.0 - 37.0 G/DL) 31.6 L Vital Signs Date Time Temp Pulse Resp B/P Pulse O2 O2 Flow FiO2 Ox Delivery Rate 12/07 0910 120/60 12/07 0853 95 Nasal 2.0L Cannula 12/07 0507 97.7 86 20 140/70 94 Nasal 2.0L Cannula 12/07 0027 98.2 100 20 154/80 93 Nasal 2.0L Cannula 12/06 2115 97 Nasal 2.0L Cannula 12/06 2100 97.9 100 20 150/70 95 Nasal 2.0L Cannula 12/06 1703 97.8 86 20 150/68 95 Room Air 12/06 1425 97.2 82 20 150/70 98 12/06 1359 93 Room Air Room Air
--- NOTE | 2016-12-07 13:28 | PN- Infect Dx ---
Subjective Subjective: No fever. No productive cough. Day 1 post op after debridement sacral decubit ulcer. Review of Systems Comments: 10 points reviewed as noted, otherwise negative. Objective Last 24 Hrs of Vital Signs/I&O Vital Signs Date Time Temp Pulse Resp B/P Pulse O2 O2 Flow FiO2 Ox Delivery Rate 12/07 0910 120/60 12/07 0853 95 Nasal 2.0L Cannula 12/07 0507 97.7 86 20 140/70 94 Nasal 2.0L Cannula 12/07 0027 98.2 100 20 154/80 93 Nasal 2.0L Cannula 12/07 0000 Nasal 2.0L Cannula 12/06 2115 97 Nasal 2.0L Cannula 12/06 2100 97.9 100 20 150/70 95 Nasal 2.0L Cannula 12/06 1703 97.8 86 20 150/68 95 Room Air 12/06 1425 97.2 82 20 150/70 98 12/06 1359 93 Room Air Room Air Intake & Output 12/07 1600 12/07 0800 12/07 0000 Intake Total 400 100 Output Total 250 100 Balance 150 0 Intake, IV 300 Intake, Oral 100 100 Output, Stool 250 Output, Urine 100 Physical Exam Other Physical Findings: Gen Afebrile, NAD HEENT AT, scleta anicteric, no thrush. Neck is supple with no adenopathy. Lungs BS present, scaterred b/l rhonchi w/ cough Heart S1 S2 present, no murmur. Abdomen is soft, nontender with positive bowel sounds; suprapubic tube in place, L colostomy. Skin large sacral decubitus Extremities no cyanosis, clubbing or edema. Neuro paraplegia, A&O x 3 Results Last 24 Hours of Lab Results: Laboratory Tests 12/07 0640 Chemistry Sodium (137 - 145 mmol/L) 141 Potassium (3.5 - 5.1 mmol/L) 4.5 Chloride (98 - 107 mmol/L) 100 Carbon Dioxide (22 - 30 mmol/L) 32 H Anion Gap (5 - 16) 10 BUN (9 - 20 mg/dL) 22 H Creatinine (0.7 - 1.2 mg/dL) 0.8 Estimated GFR (>60 ml/min) > 60 BUN/Creatinine Ratio (7 - 25 %) 27.5 H Magnesium (1.6 - 2.3 mg/dL) 2.4 H Hematology CBC w Diff NO MAN DIFF REQ WBC (4.8 - 10.8 /CUMM) 15.4 H RBC (4.70 - 6.10 /CUMM) 3.32 L Hgb (14.0 - 18.0 G/DL) 8.9 L Hct (42 - 52 %) 28.1 L MCV (80.0 - 94.0 FL) 84.5 MCH (27.0 - 31.0 PG) 26.7 L RDW (11.5 - 14.5 %) 20.5 H Plt Count (130 - 400 /CUMM) 712 H MPV (7.4 - 10.4 FL) 6.8 L Gran % (42.2 - 75.2 %) 75.7 H Lymphocytes % (20.5 - 51.1 %) 9.0 L Monocytes % (1.7 - 9.3 %) 8.7 Eosinophils % (0 - 5 %) 6.4 H Basophils % (0.0 - 2.0 %) 0.2 Absolute Granulocytes (1.4 - 6.5 /CUMM) 11.7 H Absolute Lymphocytes (1.2 - 3.4 /CUMM) 1.4 Absolute Monocytes (0.10 - 0.60 /CUMM) 1.3 H Absolute Eosinophils (0.0 - 0.7 /CUMM) 1.0 Absolute Basophils (0.0 - 0.2 /CUMM) 0 PUBS MCHC (33.0 - 37.0 G/DL) 31.6 L Last 24 Hours of Perfecto Results: EC #: [id number] TIP: 12/06/16 STATUS: RES RECD: 12/06/[address]: ARPAN MULLIGAN,SLIM Edmonds SOURCE: TRUNK/O.R. ENTR: 12/06/[address]: KELSEY MULLIGAN,SLIM Avalos SPDESC: BACK [facility] SETH MULLIGAN,[facility] ORDERED: TRUNK OR CULT COMMENT: ADDITIONAL INFORMATION: LEFT ISCHEAL BONE Procedure Result > GRAM STAIN Final 12/07/16-1247 WHITE BLOOD CELLS FEW GRAM POSITIVE COCCI FEW > TRUNK AREA OR CULTURE Preliminary 12/07/16-819 Moderate growth of: GRAM POSITIVE COCCI Identification and sensitivities to follow REPORTED TO YVES AT 0820 12/07/16 LAB.SVCY SPEC #: [id number] TIP: 12/02/16 STATUS: COMP RECD: 12/02/[address]: ALHAJI TIAN MD SOURCE: TRUNK ENTR: 12/02/[address]: KELSEY MULLIGAN,SLIM Avalos SPDESC: LUCY ANN MD,[facility] ORDERED: TRUNK CULTURE COMMENT: TYPE OF SPECIMEN: DEEP Procedure Result > GRAM STAIN Final 12/03/16-114 WHITE BLOOD CELLS FEW SQUAMOUS CELLS NONE GRAM POSITIVE COCCI RARE > TRUNK AREA CULTURE Final 12/06/16 Scant mixed sagar after 3 days with 1. Light growth of BETA STREP GROUP G Penicillin and Ampicillin are drugs of choice for beta-hemolytic streptococcal infections. Susceptibility testing of penicillins and other beta-lactams are not routinely performed because non-susceptible isolates have only rarely been reported. Note: If patient is allergic to Penicillin, the laboratory can perform Clindamycin testing upon request. Please call within 5 days of final report. 2. Scant growth of : METH RESIST STAPH AUREUS ISOLATED Called to/Readback by EL by LAB.RUST 12/06/16 0986 2. METH RESIST STAPH AUREUS RX AB ------ -- CEFAZOLIN R AMOXICILLIN/CLAVULINIC ACID R AMPICILLIN/SULBACTAM R TETRACYCLINE S TRIMETHOPRIM/SULFAMETHOXAZOLE S AZITHROMYCIN R CLINDAMYCIN R ERYTHROMYCIN R OXACILLIN R VANCOMYCIN S Recent Imaging Studies: SERVICE DATE: 12/04/16 EXAM TYPE: RAD - XRY-PORTABLE CHEST XRAY EXAMINATION: XR PORTABLE CHEST CLINICAL INFORMATION: Peripherally inserted catheter for long-term antibiotic treatment. COMPARISON: CXR from 11/29/2016 TECHNIQUE: Portable AP view of the chest was obtained. FINDINGS: The right arm peripherally inserted catheter is in satisfactory position with its tip located in the distal third of the superior vena cava. There is chronic volume loss of the left lower lobe. Again noted are peribronchial opacities in the left lower lobe and elevation of the left diaphragm. There is linear opacity of minimal atelectasis or scar at the right lung base. No acute airspace opacification, pulmonary edema or pleural effusion. Cardiac silhouette and central pulmonary vessels are chronically enlarged. The sternotomy wires are intact. No acute skeletal findings. IMPRESSION: The right arm peripherally inserted catheter is in satisfactory position with its tip located in the distal superior vena cava. DICTATED BY: BAILEE RICKS MD DATE/TIME DICTATED:12/04/161332 DERRICK ENGINEER:JANNA DATE/TIME TRANSCRIBED:12/04/161332 Assessment/Plan Impression: Mr. 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 Bacteremia (Strep gr. G); OM sacrum and L ischial tuberosity ; local cx Strep gr G and MRSA; started iv Vancomycin 12/06 Leukocytosis Suggestion: 1. Monitor CBC, BMP. Nutrition per team. F/U wound care/plastic sx ? wound vac placement 2. F/U wound cx obtained in OR to further guide antibiotic treatmnet ( preliminary GPC) 3. Cont iv Vancomycin (dosed per pharmacy; goal trough 15-20). Alida levine 12/08 in am. 4. To complete treatment for Ps. aeruginosa UTI oral Cipro 500 mg po bid for 5 d. Case d/w team.
[2016-12-07 14:57] VITALS: BP 140/64
[2016-12-07 22:46] VITALS: BP 138/60
[2016-12-08 06:32] VITALS: BP 142/62
--- NOTE | 2016-12-08 07:54 | PN- Housestaff ---
Subjective Follow-up For: SACRAL DECUBITUS, BETA STREP GROUP B AND MRSA + PSEUDOMONAS UTI Subjective: I have seen and examined the patient this AM, he is lying in bed, reports no complaints. Does not appear to be in distress or feverish. POD2 after debridement, cultures are pending. colostomy bag contains small amount of brown formed stool. wound is dry and is covered with Kerlix. Review of Systems Constitutional: Denies: chills, fever. EENTM: Reports: no symptoms. Cardiovascular: Reports: no symptoms. Respiratory: Reports: no symptoms. Gastrointestinal: Reports: no symptoms. Genitourinary: Reports: no symptoms. Musculoskeletal: Reports: no symptoms. Skin: Reports: lesions. Neurological/Psychological: Reports: weakness. Objective Last 24 Hrs of Vital Signs/I&O Vital Signs Date Time Temp Pulse Resp B/P Pulse O2 O2 Flow FiO2 Ox Delivery Rate 12/08 1429 98.2 80 20 140/62 94 12/08 1016 94 Room Air 12/08 0945 94 140/54 12/08 0632 98.2 91 20 142/62 92 Room Air 12/07 2246 99.0 97 20 138/60 91 Room Air 12/07 1850 93 Room Air Intake & Output 12/08 1600 12/08 0800 12/08 0000 Intake Total 1270 900 240 Output Total 1000 1200 1000 Balance 270 -300 -760 Intake, IV 270 300 Intake, Oral 1000 600 240 Number 0 Bowel Movements Output, Urine 1000 1200 1000 Physical Exam General Appearance: Alert, Oriented X3, Cooperative, No Acute Distress Skin: sacral ducubitus ulcer s/p debridement, dressing is dry HEENT: Atraumatic, EOMI Neck: Supple Cardiovascular: Normal S1, Normal S2, 2/6 systolic murmur Lungs: Normal Air Movement Abdomen: Soft, No Tenderness Neurological: Normal Speech, paraplegia (0/5 forces on the lower extremities), loss of sensation from upper chest downwards. Extremities: No Cyanosis, No Edema, Normal Pulses, No Tenderness/Swelling Vascular: Normal Pulses, Pulses Symmetrical Current Medications: Current Medications Sig/Mey Start time Last Medication Dose Route Stop Time Status Admin Acetaminophen 650 MG Q6P PRN 11/29 2030 AC PO Albuterol Sulfate 3 ML BID 12/07 2200 AC 12/08 INH 1014 Albuterol Sulfate 3 ML TID 11/30 1600 DC 02/17 INH 1850 Allopurinol 100 MG DAILY 11/30 1000 AC 12/08 PO 0944 Atorvastatin Calcium 10 MG 2000 11/30 2000 AC 12/07 PO 205 Citalopram 20 MG 1600 11/30 1600 AC 12/08 Hydrobromide PO 1634 Docusate Sodium 100 MG 1600 12/03 1600 AC 12/08 PO 1634 Donepezil HCl 10 MG DAILY 11/30 1000 AC 12/08 PO 0945 Enoxaparin Sodium 40 MG 2200 11/29 2200 AC 12/07 SC 2057 Guaifenesin 10 ML .STK-MED ONE 12/07 2221 DC PO 12/07 222 Guaifenesin 10 ML Q6P PRN 11/29 2345 AC 12/07 PO 2223 Ibuprofen 600 MG Q6P PRN 11/29 2030 AC 12/06 PO 2324 Insulin Aspart 0 TIDAC 12/07 0800 AC 12/08 SC 1637 Ipratropium [place] 2.5 ML BID 12/07 2200 AC 12/08 INH 1014 Ipratropium [place] 2.5 ML TID 11/30 1600 DC 12/07 INH 1850 Levetiracetam 500 MG BID 11/29 2241 AC 12/08 PO 0945 Lisinopril 10 MG DAILY 11/30 1000 AC 12/08 PO 0945 Melatonin 3 MG AT BEDTIME 12/02 2346 AC 12/07 PO 205 Memantine 10 MG BID 11/30 1000 AC 12/08 PO 0945 Mirtazapine 7.5 MG AT BEDTIME NEED.. 11/30 2200 AC 12/07 PO 2058 Oxybutynin Chloride 10 MG TID 12/04 1600 AC 12/08 PO 1634 Oxycodone HCl 10 MG Q6P PRN 12/07 0645 AC 12/08 PO 1325 Senna/Docusate Sodium 2 TAB DAILY 11/30 1000 AC 12/08 PO 0944 Sodium Hypochlorite 1 HILARIA BID 11/30 1000 AC 12/08 TOP 0945 Trazodone HCl 25 MG Q12P PRN 11/29 2245 AC 11/30 PO 0121 Vancomycin HCl 1,000 MG Q12H 12/08 2245 AC Dextrose/Water 250 ML IV Vancomycin HCl 1,250 MG Q12H 12/06 1045 AC 12/08 Dextrose/Water 250 ML IV 12/08 2244 1150 Last 24 Hrs of Lab/Perfecto Results Last 24 Hrs of Labs/Mics: Laboratory Tests 12/08/16 1340: Urinalysis MOD H, Urine Color YEL, Urine Clarity CLEAR, Urine pH 6.0, Ur Specific [place] 1.015, Urine Protein NEG, Urine Ketones NEG, Urine Nitrite NEG, Urine Bilirubin NEG, Urine Urobilinogen 0.2, Ur Leukocyte Esterase SMALL H, Ur Microscopic SEDIMENT EXAMINED, Urine RBC RARE, Urine WBC 3-5 H, Ur Epithelial Cells FEW, Urine Hemoglobin NEG, Urine Glucose NEG 12/08/16 0600: Anion Gap 10, Estimated GFR > 60, BUN/Creatinine Ratio 35.7 H, CBC w Diff NO MAN DIFF REQ, RBC 3.32 L, MCV 84.8, MCH 26.4 L, RDW 20.4 H, MPV 7.0 L, Gran % 71.3, Lymphocytes % 11.8 L, Monocytes % 9.5 H, Eosinophils % 7.0 H, Basophils % 0.4, Absolute Granulocytes 10.9 H, Absolute Lymphocytes 1.8, Absolute Monocytes 1.4 H, Absolute Eosinophils 1.1, Absolute Basophils 0.1, PUBS MCHC 31.2 L 12/07/160: Vancomycin Trough 22.4 H Microbiology 12/08 1340 URINE ROUT: Urine Culture - RECD Assessment/Plan Assessment: Mr. 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, currently with an indwelling suprapubic catheter, ostomy bag non-healing sacral decubitus ulcer, diabetes mellitus, hyperlipidemia, coronary artery disease, hypertension, GERD, anxiety and depression who was brought in by ambulance to the [place] ED from [facility] care facility wdue to leukocytosis and cough. Patient is admitted to the general medicine floor and the following is the management: 1. Leukocytosis, possible sources: UTI (chronic indewlling catheter, ducubitus ulcer, Pneumonia (respiratory culture grew G negative bacteria). patient has remained afebrile. WBC was increased yesterday * Initial CXR showed likely left sided airspace disease * Received Zosyn 4.5 every 6 hours per ID recommendation on 12/01/16 completed 5 days on 12/05/15. * MRI of the lumbar spine: Osteomyelitis of the S5 segment of the sacrum with absence of the coccyx and an overlying sacral decubitus ulcer which extends to the depth of bone. Osteomyelitis of the left ischial tuberosity with overlying decubitus ulcer extending to the depth of bone. This decubitus ulcer is contiguous with the aforementioned sacral ulcer. * Repeat blood culture on 12/03/16: NG so far * Urine culture shows gram negative rods, however consider contamination * Robitussin PRN for cough 2. UTI * Suprapubic catheter needed s/p paraplegia * Urine culture currently show gram negative rods * Catheter changed during this admission, has been functioning properly * Patient is started on Oxybutinin 30 mg daily since 12/04/16 per Urology * repeated UA/UC, will follow 3. Decubitus ulcer * Stage 4 decubitus ulcer present on admission along with rectal ulcer as noted by Dr. Guzman (wound consult appreciated) * No current wound vac in place due to masseration * Discussed patient with Dr. Hauser over the phone, he reports patient was scheduled for a flap as an outpatient but now that he is admitted with sepsis 2/ 2 UTI, he will cancel this for now * Dressing with quarter strength Dakin's moistened gauze changed twice daily * Offloading mattress ordered * Due to MRSA + wound culture we also added IV vancomycin 1.25 g Q12 (per pharmacy) on 12/06/16. * patient went to the OR on 12/06/16 for debridement, obtained deep wound and bone culture, will follow results * vanco dose adjusted with pharmacy based on the trough, will repeat trough in 48 hours on Saturday night 4. DM * Continue NSS TIDAC * Accuchecks 5. Seizure history * Continue keppra 500 mg PO BID 6. HTN, HLD * Lipitor 10 mg PO daily * Lisinopril 10 mg PO daily 7. Bipolar depression * Continue celexa and trazodone * Aricept 10 mg PO daily * Continue remeron 7.5 mg PO QPM DNR/DNI Diet: CC2 Mild pain pathway DVTP: SC Lovenox Problem List: 1. Paraplegia 2. Osteomyelitis 3. Decubitus ulcer 4. UTI (lower urinary tract infection) Pain Ratin Pain Location: no pain Pain Goal: Pain 4 or less Pain Plan: per pathway Tomorrow's Labs & Rationales: CBC, BEP
[2016-12-08 08:20] LABS: ABSOLUTE BASOPHIL COUNT 0.1 /CUMM (0.0-0.2); ABSOLUTE EOSINOPHIL COUNT 1.1 /CUMM (0.0-0.7); ABSOLUTE GRANULOCYTE CT 10.9 /CUMM (1.4-6.5); ABSOLUTE LYMPH COUNT 1.8 /CUMM (1.2-3.4); ABSOLUTE MONOCYTE COUNT 1.4 /CUMM (0.10-0.60); BASOPHIL % 0.4 % (0.0-2.0); GRANULOCYTE % 71.3 % (42.2-75.2); HEMATOCRIT 28.2 % (42-52); MEAN CORPUSCULAR HGB 26.4 PG (27.0-31.0); MEAN CORPUSCULAR HGB CONC 31.2 G/DL (33.0-37.0); MEAN CORPUSCULAR VOLUME 84.8 FL (80.0-94.0); PLATELET COUNT 682 /CUMM (130-400); RBC DISTRIBUTION WIDTH 20.4 % (11.5-14.5); RED BLOOD CELL CT 3.32 /CUMM (4.70-6.10); WHITE BLOOD CELL COUNT 15.2 /CUMM (4.8-10.8)
--- NOTE | 2016-12-08 11:36 | PN- Infect Dx ---
Subjective Subjective: No fever or chills. POD #2 after sacral ulcer debridement. Good appetite. Review of Systems Comments: 10 points reviewed as noted, otherwise negative. Objective Last 24 Hrs of Vital Signs/I&O Vital Signs Date Time Temp Pulse Resp B/P Pulse O2 O2 Flow FiO2 Ox Delivery Rate 12/08 1016 94 Room Air 12/08 0945 94 140/54 12/08 0632 98.2 91 20 142/62 92 Room Air 12/07 2246 99.0 97 20 138/60 91 Room Air 12/07 1850 93 Room Air 12/07 1457 97.9 100 20 140/64 92 Room Air Intake & Output 12/08 1600 12/08 0800 12/08 0000 Intake Total 900 240 Output Total 1200 1000 Balance -300 -760 Intake, IV 300 Intake, Oral 600 240 Output, Urine 1200 1000 Physical Exam Other Physical Findings: Gen Afebrile, NAD HEENT AT, scleta anicteric, no thrush. Neck is supple with no adenopathy. Lungs BS present, scaterred b/l rhonchi w/ cough Heart S1 S2 present, no murmur. Abdomen is soft, nontender with positive bowel sounds; suprapubic tube in place, L colostomy. Skin large sacral decubitus Extremities no cyanosis, clubbing or edema. Neuro paraplegia, A&O x 3 Results Last 24 Hours of Lab Results: Laboratory Tests 12/08 12/07 0600 2050 Chemistry Sodium (137 - 145 mmol/L) 140 Potassium (3.5 - 5.1 mmol/L) 5.1 Chloride (98 - 107 mmol/L) 100 Carbon Dioxide (22 - 30 mmol/L) 30 Anion Gap (5 - 16) 10 BUN (9 - 20 mg/dL) 25 H Creatinine (0.7 - 1.2 mg/dL) 0.7 Estimated GFR (>60 ml/min) > 60 BUN/Creatinine Ratio (7 - 25 %) 35.7 H Hematology CBC w Diff NO MAN DIFF REQ WBC (4.8 - 10.8 /CUMM) 15.2 H RBC (4.70 - 6.10 /CUMM) 3.32 L Hgb (14.0 - 18.0 G/DL) 8.8 L Hct (42 - 52 %) 28.2 L MCV (80.0 - 94.0 FL) 84.8 MCH (27.0 - 31.0 PG) 26.4 L RDW (11.5 - 14.5 %) 20.4 H Plt Count (130 - 400 /CUMM) 682 H MPV (7.4 - 10.4 FL) 7.0 L Gran % (42.2 - 75.2 %) 71.3 Lymphocytes % (20.5 - 51.1 %) 11.8 L Monocytes % (1.7 - 9.3 %) 9.5 H Eosinophils % (0 - 5 %) 7.0 H Basophils % (0.0 - 2.0 %) 0.4 Absolute Granulocytes (1.4 - 6.5 /CUMM) 10.9 H Absolute Lymphocytes (1.2 - 3.4 /CUMM) 1.8 Absolute Monocytes (0.10 - 0.60 /CUMM) 1.4 H Absolute Eosinophils (0.0 - 0.7 /CUMM) 1.1 Absolute Basophils (0.0 - 0.2 /CUMM) 0.1 PUBS MCHC (33.0 - 37.0 G/DL) 31.2 L Toxicology Vancomycin Trough (10.0 - 20.0 ug/mL) 22.4 H Last 24 Hours of Perfecto Results: SPEC #: [id number] TIP: 12/06/16 STATUS: RES RECD: 12/06/[address]: ARPAN MULLIGAN,SLIM Edmonds SOURCE: TRUNK/O.R. ENTR: 12/06/16-[address]: KELSEY MULLIGAN,SLIM Avalos SPDESC: BACK [facility] MULLIG[facility] ORDERED: TRUNK OR CULT COMMENT: ADDITIONAL INFORMATION: LEFT ISCHEAL BONE Procedure Result > GRAM STAIN Final 12/07/16-1247 WHITE BLOOD CELLS FEW GRAM POSITIVE COCCI FEW > TRUNK AREA OR CULTURE Preliminary 12/07/16-08 Moderate growth of: GRAM POSITIVE COCCI Identification and sensitivities to follow REPORTED TO YVES AT 0820 12/07/16 LAB.SVCY Recent Imaging Studies: N/A Assessment/Plan Impression: Mr. 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 Bacteremia (Strep gr. G); OM sacrum and L ischial tuberosity ; local cx Strep gr G and MRSA; started iv Vancomycin 12/06 Persistent leukocytosis Suggestion: 1. Monitor CBC, BMP. Nutrition per team. F/U wound care/plastic sx 2. F/U final wound cx obtained in OR to further guide antibiotic treatment ( preliminary GPC) 3. Cont iv Vancomycin started 12/06; tx for min 6 weeks; goal vancomycin trough 15-20). Vanco trough to be repeated today as vancomycin level elevated last evening; redose per pharmacy. 4. Consider repeat UA/UC.
--- NOTE | 2016-12-08 12:12 | PN- Pulmonary ---
Subjective HPI/Critical Care Issues: NO fever or chills. POD #2 after sacral ulcer debridement 10 points reviewed as noted, otherwise negative. Objective Current Medications: Current Medications Sig/Mey Start time Last Medication Dose Route Stop Time Status Admin Acetaminophen 650 MG Q6P PRN 11/29 2030 AC PO Albuterol Sulfate 3 ML BID 12/07 2200 AC 12/08 INH 1014 Albuterol Sulfate 3 ML TID 11/30 1600 DC 12/07 INH 1850 Allopurinol 100 MG DAILY 11/30 1000 AC 12/08 PO 0944 Atorvastatin Calcium 10 MG 2000 11/30 2000 AC 12/07 PO 205 Citalopram 20 MG 1600 11/30 1600 AC 12/07 Hydrobromide PO 1552 Docusate Sodium 100 MG 1600 12/03 1600 AC 12/07 PO 1552 Donepezil HCl 10 MG DAILY 11/30 1000 AC 12/08 PO 0945 Enoxaparin Sodium 40 MG 2200 11/29 2200 AC 12/07 SC 2057 Guaifenesin 10 ML .ST-MED ONE 12/07 222 DC PO 12/07 222 Guaifenesin 10 ML Q6P PRN 11/29 2345 AC 12/07 PO 2223 Ibuprofen 600 MG Q6P PRN 11/29 2030 AC 12/06 PO 2324 Insulin Aspart 0 TIDAC 12/07 0800 AC 12/08 SC 1145 Ipratropium [place] 2.5 ML BID 12/07 2200 AC 12/08 INH 1014 Ipratropium [place] 2.5 ML TID 11/30 1600 DC 12/07 INH 1850 Levetiracetam 500 MG BID 11/29 2241 AC 12/08 PO 0945 Lisinopril 10 MG DAILY 11/30 1000 AC 12/08 PO 0945 Melatonin 3 MG AT BEDTIME 12/02 2346 AC 12/07 PO 2056 Memantine 10 MG BID 11/30 1000 AC 12/08 PO 0945 Mirtazapine 7.5 MG AT BEDTIME NEED.. 11/30 2199 AC 12/07 PO 2058 Oxybutynin Chloride 10 MG TID 12/04 1600 AC 12/08 PO 0945 Oxycodone HCl 10 MG Q6P PRN 12/07 0645 AC 12/07 PO 2342 Senna/Docusate Sodium 2 TAB DAILY 11/30 1000 AC 12/08 PO 0944 Sodium Hypochlorite 1 HILARIA BID 11/30 1000 12/08 TOP 0945 Trazodone HCl 25 MG Q12P PRN 11/29 2245 11/30 PO 0121 Vancomycin HCl 1,250 MG Q12H 12/06 1045 12/08 Dextrose/Water 250 ML IV 1150 Vital Signs & I&O Last 24 Hrs of Vitals and I&O: Vital Signs Date Time Temp Pulse Resp B/P Pulse O2 O2 Flow FiO2 Ox Delivery Rate 12/08 1016 94 Room Air 12/08 0945 94 140/54 12/08 0632 98.2 91 20 142/62 92 Room Air 12/07 2246 99.0 97 20 138/60 91 Room Air 12/07 1850 93 Room Air 12/07 1457 97.9 100 20 140/64 92 Room Air Intake & Output 12/08 1600 12/08 0800 12/08 0000 Intake Total 900 240 Output Total 1200 1000 Balance -300 -760 Intake, IV 300 Intake, Oral 600 240 Output, Urine 1200 1000 Laboratory Tests 12/08 12/07 0600 2050 Chemistry Sodium (137 - 145 mmol/L) 140 Potassium (3.5 - 5.1 mmol/L) 5.1 Chloride (98 - 107 mmol/L) 100 Carbon Dioxide (22 - 30 mmol/L) 30 Anion Gap (5 - 16) 10 BUN (9 - 20 mg/dL) 25 H Creatinine (0.7 - 1.2 mg/dL) 0.7 Estimated GFR (>60 ml/min) > 60 BUN/Creatinine Ratio (7 - 25 %) 35.7 H Hematology CBC w Diff NO MAN DIFF REQ WBC (4.8 - 10.8 /CUMM) 15.2 H RBC (4.70 - 6.10 /CUMM) 3.32 L Hgb (14.0 - 18.0 G/DL) 8.8 L Hct (42 - 52 %) 28.2 L MCV (80.0 - 94.0 FL) 84.8 MCH (27.0 - 31.0 PG) 26.4 L RDW (11.5 - 14.5 %) 20.4 H Plt Count (130 - 400 /CUMM) 682 H MPV (7.4 - 10.4 FL) 7.0 L Gran % (42.2 - 75.2 %) 71.3 Lymphocytes % (20.5 - 51.1 %) 11.8 L Monocytes % (1.7 - 9.3 %) 9.5 H Eosinophils % (0 - 5 %) 7.0 H Basophils % (0.0 - 2.0 %) 0.4 Absolute Granulocytes (1.4 - 6.5 /CUMM) 10.9 H Absolute Lymphocytes (1.2 - 3.4 /CUMM) 1.8 Absolute Monocytes (0.10 - 0.60 /CUMM) 1.4 H Absolute Eosinophils (0.0 - 0.7 /CUMM) 1.1 Absolute Basophils (0.0 - 0.2 /CUMM) 0.1 PUBS MCHC (33.0 - 37.0 G/DL) 31.2 L Toxicology Vancomycin Trough (10.0 - 20.0 ug/mL) 22.4 H / 0640 Chemistry Sodium (137 - 145 mmol/L) 141 Potassium (3.5 - 5.1 mmol/L) 4.5 Chloride (98 - 107 mmol/L) 100 Carbon Dioxide (22 - 30 mmol/L) 32 H Anion Gap (5 - 16) 10 BUN (9 - 20 mg/dL) 22 H Creatinine (0.7 - 1.2 mg/dL) 0.8 Estimated GFR (>60 ml/min) > 60 BUN/Creatinine Ratio (7 - 25 %) 27.5 H Magnesium (1.6 - 2.3 mg/dL) 2.4 H Hematology CBC w Diff NO MAN DIFF REQ WBC (4.8 - 10.8 /CUMM) 15.4 H RBC (4.70 - 6.10 /CUMM) 3.32 L Hgb (14.0 - 18.0 G/DL) 8.9 L Hct (42 - 52 %) 28.1 L MCV (80.0 - 94.0 FL) 84.5 MCH (27.0 - 31.0 PG) 26.7 L RDW (11.5 - 14.5 %) 20.5 H Plt Count (130 - 400 /CUMM) 712 H MPV (7.4 - 10.4 FL) 6.8 L Gran % (42.2 - 75.2 %) 75.7 H Lymphocytes % (20.5 - 51.1 %) 9.0 L Monocytes % (1.7 - 9.3 %) 8.7 Eosinophils % (0 - 5 %) 6.4 H Basophils % (0.0 - 2.0 %) 0.2 Absolute Granulocytes (1.4 - 6.5 /CUMM) 11.7 H Absolute Lymphocytes (1.2 - 3.4 /CUMM) 1.4 Absolute Monocytes (0.10 - 0.60 /CUMM) 1.3 H Absolute Eosinophils (0.0 - 0.7 /CUMM) 1.0 Absolute Basophils (0.0 - 0.2 /CUMM) 0 PUBS MCHC (33.0 - 37.0 G/DL) 31.6 L Microbiology Date/Time Procedure - Status Source Growth 12/06 1829 Culture & Sensitivity - RES TRUNK/O.R. 12/06 1829 Gram Stain - RES TRUNK/O.R. 12/06 1829 Culture & Sensitivity - RES TRUNK/O.R. GRAM POSITIVE COCCI 12/06 1829 Gram Stain - RES TRUNK/O.R. 12/06 08 Culture & Sensitivity - CAN TRUNK Cancelled: SPECIMEN NOT RECEIVED IN LABORATORY 12/06 08 Gram Stain - CAN TRUNK Cancelled: SPECIMEN NOT RECEIVED IN LABORATORY Impression/Plan Impression/Plan Impression/Plan: Gen Afebrile, NAD HEENT AT, scleta anicteric, no thrush. Neck is supple with no adenopathy. Lungs BS present, scaterred b/l rhonchi w/ cough Heart S1 S2 present, no murmur. Abdomen is soft, nontender with positive bowel sounds; suprapubic tube in place, L colostomy. Skin large sacral decubitus Extremities no cyanosis, clubbing or edema. Neuro paraplegia, A&O x 3 IMPRESSION Mr. 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 Bacteremia (Strep gr. G); OM sacrum and L ischial tuberosity ; local cx Strep gr G and MRSA; started iv Vancomycin 12/06 Leukocytosis REC CONT Abx per ID Off load mattress Awati all cultures Rpt ua Cont current meds Will follow
[2016-12-08 14:29] VITALS: BP 140/62
--- NOTE | 2016-12-08 19:43 | PN- Urology ---
Subjective Subjective: pt feels that he is less wet since antimuscarinic med started. However he still gets wet. Review of Systems Constitutional: Reports: no symptoms. EENTM: Reports: no symptoms. Cardiovascular: Reports: no symptoms. Respiratory: Reports: no symptoms. Gastrointestinal: Reports: no symptoms. Musculoskeletal: Reports: no symptoms. Neurological/Psychological: Reports: no symptoms. Hematologic/Endocrine: Reports: no symptoms. Immunologic/Allergic: Reports: no symptoms. Objective Vital Signs and I&Os Vital Signs Date Time Temp Pulse Resp B/P Pulse O2 O2 Flow FiO2 Ox Delivery Rate 12/08 1429 98.2 80 20 140/62 94 12/08 1016 94 Room Air 12/08 0945 94 140/54 12/08 0632 98.2 91 20 142/62 92 Room Air 12/07 2246 99.0 97 20 138/60 91 Room Air Intake & Output 12/08 1600 12/08 0800 12/08 0000 12/07 1600 12/07 0800 12/07 0000 Intake Total 1270 579 193 9376 400 100 Output Total 1000 1200 1000 250 100 Balance 270 -300 -760 1800 150 0 Intake, IV 270 300 300 Intake, Oral 1000 677 156 6296 100 100 Number 0 Bowel Movements Output, Stool 250 Output, Urine 1000 1200 1000 100 Physical Exam General Appearance: well developed/nourished, no apparent distress, alert, awake , comfortable Head: normal appearance Ears, Nose, Throat: normal ENT inspection Neck: normal inspection Respiratory: no respiratory distress Abdomen: soft, non-tender Rectal: deferred Neurologic/Psychiatric: awake, alert, oriented x 3 Skin: normal color, warm/dry Reproductive: iatrogenic hypospadias Current Medications: Current Medications Sig/Mey Start time Last Medication Dose Route Stop Time Status Admin Acetaminophen 650 MG Q6P PRN 11/29 2030 AC PO Albuterol Sulfate 3 ML BID 12/07 2199 AC 12/08 INH 1014 Allopurinol 100 MG DAILY 11/30 1000 AC 12/08 PO 0944 Atorvastatin Calcium 10 MG 11/30 AC 12/07 PO 205 Citalopram 20 MG 11/30 1600 AC 12/08 Hydrobromide PO 163 Docusate Sodium 100 MG 12/03 1600 AC 12/08 PO 1634 Donepezil HCl 10 MG DAILY 11/30 1000 AC 12/08 PO 0945 Enoxaparin Sodium 40 MG 11/29 AC 12/07 SC 2057 Guaifenesin 10 ML .STK-MED ONE 12/07 222 DC PO 12/07 222 Guaifenesin 10 ML Q6P PRN 11/29 2345 AC 12/07 PO 2223 Ibuprofen 600 MG Q6P PRN 11/29 2030 AC 12/06 PO 2324 Insulin Aspart 0 TIDAC 12/07 0800 AC 12/08 SC 1637 Ipratropium [place] 2.5 ML BID 12/07 2199 AC 12/08 INH 1014 Levetiracetam 500 MG BID 11/29 2241 AC 12/08 PO 0945 Lisinopril 10 MG DAILY 11/30 1000 AC 12/08 PO 0945 Melatonin 3 MG AT BEDTIME 12/02 2346 AC 12/07 PO 205 Memantine 10 MG BID 11/30 1000 AC 12/08 PO 0945 Mirtazapine 7.5 MG AT BEDTIME NEED.. 11/30 2200 AC 12/07 PO 2058 Oxybutynin Chloride 10 MG TID 12/04 1600 AC 12/08 PO 1634 Oxycodone HCl 10 MG Q6P PRN 12/07 0645 AC 12/08 PO 1325 Senna/Docusate Sodium 2 TAB DAILY 11/30 1000 AC 12/08 PO 0944 Sodium Hypochlorite 1 HILARIA BID 11/30 1000 AC 12/08 TOP 0945 Trazodone HCl 25 MG Q12P PRN 11/29 2245 AC 11/30 PO 0121 Vancomycin HCl 1,000 MG Q12H 12/08 2245 AC Dextrose/Water 250 ML IV Vancomycin HCl 1,250 MG Q12H 12/06 1045 AC 12/08 Dextrose/Water 250 ML IV 12/08 2244 1150 Results Last 48 Hours of Labs: Laboratory Tests 12/08 12/08 1340 0600 Chemistry Sodium (137 - 145 mmol/L) 140 Potassium (3.5 - 5.1 mmol/L) 5.1 Chloride (98 - 107 mmol/L) 100 Carbon Dioxide (22 - 30 mmol/L) 30 Anion Gap (5 - 16) 10 BUN (9 - 20 mg/dL) 25 H Creatinine (0.7 - 1.2 mg/dL) 0.7 Estimated GFR (>60 ml/min) > 60 BUN/Creatinine Ratio (7 - 25 %) 35.7 H Hematology CBC w Diff NO MAN DIFF REQ WBC (4.8 - 10.8 /CUMM) 15.2 H RBC (4.70 - 6.10 /CUMM) 3.32 L Hgb (14.0 - 18.0 G/DL) 8.8 L Hct (42 - 52 %) 28.2 L MCV (80.0 - 94.0 FL) 84.8 MCH (27.0 - 31.0 PG) 26.4 L RDW (11.5 - 14.5 %) 20.4 H Plt Count (130 - 400 /CUMM) 682 H MPV (7.4 - 10.4 FL) 7.0 L Gran % (42.2 - 75.2 %) 71.3 Lymphocytes % (20.5 - 51.1 %) 11.8 L Monocytes % (1.7 - 9.3 %) 9.5 H Eosinophils % (0 - 5 %) 7.0 H Basophils % (0.0 - 2.0 %) 0.4 Absolute Granulocytes (1.4 - 6.5 /CUMM) 10.9 H Absolute Lymphocytes (1.2 - 3.4 /CUMM) 1.8 Absolute Monocytes (0.10 - 0.60 /CUMM) 1.4 H Absolute Eosinophils (0.0 - 0.7 /CUMM) 1.1 Absolute Basophils (0.0 - 0.2 /CUMM) 0.1 PUBS MCHC (33.0 - 37.0 G/DL) 31.2 L Urines Urinalysis MOD H Urine Color (YEL,AMB,STR) YEL Urine Clarity (CLEAR) CLEAR Urine pH (5.0 - 8.0) 6.0 Ur Specific [place] (1.001 - 1.035) 1.015 Urine Protein (NEG,<30 MG/DL) NEG Urine Ketones (NEG) NEG Urine Nitrite (NEG) NEG Urine Bilirubin (NEG) NEG Urine Urobilinogen (0.1 - 1.0 EU/dl) 0.2 Ur Leukocyte Esterase (NEG) SMALL H Ur Microscopic SEDIMENT EXAMINED Urine RBC (0 - 5 /HPF) RARE Urine WBC (0 - 2 /HPF) 3-5 H Ur Epithelial Cells (NONE,FEW) FEW Urine Hemoglobin (NEG) NEG Urine Glucose (N MG/DL) NEG 02/17 02/17 2050 0640 Chemistry Sodium (137 - 145 mmol/L) 141 Potassium (3.5 - 5.1 mmol/L) 4.5 Chloride (98 - 107 mmol/L) 100 Carbon Dioxide (22 - 30 mmol/L) 32 H Anion Gap (5 - 16) 10 BUN (9 - 20 mg/dL) 22 H Creatinine (0.7 - 1.2 mg/dL) 0.8 Estimated GFR (>60 ml/min) > 60 BUN/Creatinine Ratio (7 - 25 %) 27.5 H Magnesium (1.6 - 2.3 mg/dL) 2.4 H Hematology CBC w Diff NO MAN DIFF REQ WBC (4.8 - 10.8 /CUMM) 15.4 H RBC (4.70 - 6.10 /CUMM) 3.32 L Hgb (14.0 - 18.0 G/DL) 8.9 L Hct (42 - 52 %) 28.1 L MCV (80.0 - 94.0 FL) 84.5 MCH (27.0 - 31.0 PG) 26.7 L RDW (11.5 - 14.5 %) 20.5 H Plt Count (130 - 400 /CUMM) 712 H MPV (7.4 - 10.4 FL) 6.8 L Gran % (42.2 - 75.2 %) 75.7 H Lymphocytes % (20.5 - 51.1 %) 9.0 L Monocytes % (1.7 - 9.3 %) 8.7 Eosinophils % (0 - 5 %) 6.4 H Basophils % (0.0 - 2.0 %) 0.2 Absolute Granulocytes (1.4 - 6.5 /CUMM) 11.7 H Absolute Lymphocytes (1.2 - 3.4 /CUMM) 1.4 Absolute Monocytes (0.10 - 0.60 /CUMM) 1.3 H Absolute Eosinophils (0.0 - 0.7 /CUMM) 1.0 Absolute Basophils (0.0 - 0.2 /CUMM) 0 PUBS MCHC (33.0 - 37.0 G/DL) 31.6 L Toxicology Vancomycin Trough (10.0 - 20.0 ug/mL) 22.4 H Assessment/Plan Assessment/Plan 71yo male with sacral decubitus issues as well neurogenic bladder with UTIs and incontinence. Started on oxybutynin. He is less wet but still leaking from penis. Would recommend increasing the oxybutynin to 40mg since he has no adverse effects from it. Core Measures/Miscellaneous Venous Thromboembolism VTE Risk Factors: Acute medical illness VTE Contraindications: No Contraindications VTE Prophylaxis Ordered Inpt: Pharm- Lovenox VTE Diagnosis: No VTE Type: NONE VTE Confirmed by (Test): NONE Beta Lisa Is Beta Lisa a Home Med? No Antibiotics Is Patient on Antibiotics? Yes
[2016-12-08 22:25] VITALS: BP 144/56
[2016-12-09 07:30] VITALS: BP 124/60
[2016-12-09 07:56] LABS: ABSOLUTE BASOPHIL COUNT 0.1 /CUMM (0.0-0.2); ABSOLUTE EOSINOPHIL COUNT 0.8 /CUMM (0.0-0.7); ABSOLUTE GRANULOCYTE CT 8.7 /CUMM (1.4-6.5); ABSOLUTE LYMPH COUNT 1.8 /CUMM (1.2-3.4); ABSOLUTE MONOCYTE COUNT 1.2 /CUMM (0.10-0.60); BASOPHIL % 0.4 % (0.0-2.0); EOSINOPHIL % 6.4 % (0-5); GRANULOCYTE % 69.4 % (42.2-75.2); HEMATOCRIT 27.2 % (42-52); MEAN CORPUSCULAR HGB 26.6 PG (27.0-31.0); MEAN CORPUSCULAR HGB CONC 31.4 G/DL (33.0-37.0); MEAN CORPUSCULAR VOLUME 84.7 FL (80.0-94.0); PLATELET COUNT 665 /CUMM (130-400); RBC DISTRIBUTION WIDTH 21.2 % (11.5-14.5); RED BLOOD CELL CT 3.22 /CUMM (4.70-6.10); WHITE BLOOD CELL COUNT 12.6 /CUMM (4.8-10.8)
--- NOTE | 2016-12-09 09:43 | PN- Housestaff ---
Subjective Follow-up For: Sacral decubitus UTI Subjective: Patient is seen and examined at bedside. She reports feeling well and denies any acute complaints including fever, chills, nausea, vomiting, chest pain, palpitation, shortness of breath, abdominal pain or dysuria. Review of Systems Constitutional: Reports: no symptoms. Objective Last 24 Hrs of Vital Signs/I&O Vital Signs Date Time Temp Pulse Resp B/P Pulse O2 O2 Flow FiO2 Ox Delivery Rate 12/09 0944 83 144/62 12/09 0730 97.7 78 20 124/60 93 Room Air 12/08 2225 97.9 95 20 144/56 94 Room Air 12/08 1429 98.2 80 20 140/62 94 12/08 1016 94 Room Air Intake & Output 12/09 1600 12/09 0800 12/09 0000 Intake Total 300 600 Output Total 200 325 Balance 100 275 Intake, IV 250 Intake, Oral 50 600 Output, Stool 0 Output, Urine 200 325 Physical Exam General Appearance: Alert, Oriented X3, Cooperative Other Physical Findings: Skin: sacral ducubitus ulcer s/p debridement, dressing is dry HEENT: Atraumatic, EOMI Neck: Supple Cardiovascular: Normal S1, Normal S2, 2/6 systolic murmur Lungs: Normal Air Movement Abdomen: Soft, No Tenderness Neurological: Normal Speech, paraplegia (0/5 forces on the lower extremities), loss of sensation from upper chest downwards. Extremities: No Cyanosis, No Edema, Normal Pulses, No Tenderness/Swelling Vascular: Normal Pulses, Pulses Symmetrical Current Medications: Current Medications Sig/Mey Start time Last Medication Dose Route Stop Time Status Admin Acetaminophen 650 MG Q6P PRN 11/29 2030 AC PO Albuterol Sulfate 3 ML BID 12/07 2199 AC 12/08 INH 2223 Allopurinol 100 MG DAILY 11/30 1000 AC 12/09 PO 0943 Atorvastatin Calcium 10 MG 11/30 2000 AC 12/08 PO 2142 Citalopram 20 MG 11/30 1600 AC 12/08 Hydrobromide PO 1634 Docusate Sodium 100 MG 12/03 1600 AC 12/08 PO 1634 Donepezil HCl 10 MG DAILY 11/30 1000 AC 12/09 PO 0944 Enoxaparin Sodium 40 MG 11/29 AC 12/08 SC 2143 Guaifenesin 10 ML .STK-MED ONE 12/08 2136 DC PO 12/08 2137 Guaifenesin 10 ML Q6P PRN 11/29 2345 AC 12/08 PO 2142 Ibuprofen 600 MG Q6P PRN 11/29 2030 AC 12/06 PO 2324 Insulin Aspart 0 TIDAC 12/07 0800 AC 12/08 SC 1637 Ipratropium [place] 2.5 ML BID 12/07 2200 AC 12/08 INH 2223 Levetiracetam 500 MG BID 11/29 2241 AC 12/09 PO 0944 Lisinopril 10 MG DAILY 11/30 1000 AC 12/09 PO 0944 Melatonin 3 MG AT BEDTIME 12/02 2346 AC 12/08 PO 2142 Memantine 10 MG BID 11/30 1000 AC 12/09 PO 0944 Mirtazapine 7.5 MG AT BEDTIME NEED.. 11/30 2200 AC 12/07 PO 2058 Oxybutynin Chloride 10 MG TID 12/04 1600 AC 12/09 PO 0944 Oxycodone HCl 10 MG .STK-MED ONE 12/08 2137 DC PO 12/08 2138 Oxycodone HCl 10 MG Q6P PRN 12/07 0645 AC 12/08 PO 2142 Senna/Docusate Sodium 2 TAB DAILY 11/30 1000 AC 12/09 PO 0943 Sodium Hypochlorite 1 HILARIA BID 11/30 1000 AC 12/09 TOP 0944 Trazodone HCl 25 MG Q12P PRN 11/29 2245 AC 11/30 PO 0121 Vancomycin HCl 1,000 MG Q12H 12/08 2245 AC 12/09 Dextrose/Water 250 ML IV 0944 Vancomycin HCl 1,250 MG Q12H 12/06 1045 IN 12/08 Dextrose/Water 250 ML IV 12/08 2244 1150 Last 24 Hrs of Lab/Perfecto Results Last 24 Hrs of Labs/Mics: Laboratory Tests 12/09/16 0630: Anion Gap 9, Estimated GFR > 60, BUN/Creatinine Ratio 41.4 H, CBC w Diff NO MAN DIFF REQ, RBC 3.22 L, MCV 84.7, MCH 26.6 L, RDW 21.2 H, MPV 7.0 L, Gran % 69.4, Lymphocytes % 14.6 L, Monocytes % 9.2, Eosinophils % 6.4 H, Basophils % 0.4, Absolute Granulocytes 8.7 H, Absolute Lymphocytes 1.8, Absolute Monocytes 1.2 H, Absolute Eosinophils 0.8, Absolute Basophils 0.1, PUBS MCHC 31.4 L 12/08/16 1340: Urinalysis MOD H, Urine Color YEL, Urine Clarity CLEAR, Urine pH 6.0, Ur Specific [place] 1.015, Urine Protein NEG, Urine Ketones NEG, Urine Nitrite NEG, Urine Bilirubin NEG, Urine Urobilinogen 0.2, Ur Leukocyte Esterase SMALL H, Ur Microscopic SEDIMENT EXAMINED, Urine RBC RARE, Urine WBC 3-5 H, Ur Epithelial Cells FEW, Urine Hemoglobin NEG, Urine Glucose NEG Microbiology 12/08 1340 URINE ROUT: Urine Culture - RES Assessment/Plan Assessment: Mr. 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 Patient is admitted to the general medicine floor and the following is the management: 1. Leukocytosis, possible sources: UTI (chronic indewlling catheter, ducubitus ulcer, Pneumonia (respiratory culture grew G negative bacteria). patient has remained afebrile. WBC was increased yesterday * Initial CXR showed likely left sided airspace disease * Received Zosyn 4.5 every 6 hours per ID recommendation on 12/01/16 completed 5 days on 12/05/15. * MRI of the lumbar spine: Osteomyelitis of the S5 segment of the sacrum with absence of the coccyx and an overlying sacral decubitus ulcer which extends to the depth of bone. Osteomyelitis of the left ischial tuberosity with overlying decubitus ulcer extending to the depth of bone. This decubitus ulcer is contiguous with the aforementioned sacral ulcer. * Repeat blood culture on 12/03/16: NG so far * Urine culture shows gram negative rods, however consider contamination * Robitussin PRN for cough 2. UTI * Suprapubic catheter needed s/p paraplegia * Urine culture currently show gram negative rods * Catheter changed during this admission, has been functioning properly * Patient is started on Oxybutinin 30 mg daily since 12/04/16 per Urology * repeated UA/UC, will follow 3. Decubitus ulcer * Status post debridement * OR culture was positive for vancomycin-resistant enterococcus, ID was notified and recommended switching from vancomycin to daptomycin 500 mg every 24 hours. * We'll also obtaines VRE sensitivity test for daptomycin and ceftraroline * Will obtain LFTs 4. DM * Continue NSS TIDAC * Accuchecks 5. Seizure history * Continue keppra 500 mg PO BID 6. HTN, HLD * Lipitor 10 mg PO daily * Lisinopril 10 mg PO daily 7. Bipolar depression * Continue celexa and trazodone * Aricept 10 mg PO daily * Continue remeron 7.5 mg PO QPM DNR/DNI Diet: CC2 Mild pain pathway DVTP: SC Lovenox Problem List: 1. Decubitus ulcer Pain Ratin Pain Location: none Pain Goal: Remain pain free Pain Plan: none Tomorrow's Labs & Rationales: cbc Pain Goal: Remain pain free Pain Plan: none Tomorrow's Labs & Rationales: cbc cbc
--- NOTE | 2016-12-09 11:07 | PN- Pulmonary ---
Subjective HPI/Critical Care Issues: Patient is seen and examined at bedside. he reports feeling well and denies any acute complaints including fever, chills, nausea, vomiting, chest pain, palpitation, shortness of breath, abdominal pain or dysuria. Review of Systems Constitutional: Reports: no symptoms. Objective Current Medications: Current Medications Sig/Mey Start time Last Medication Dose Route Stop Time Status Admin Acetaminophen 650 MG Q6P PRN 11/29 2029 AC PO Albuterol Sulfate 3 ML BID 12/07 2199 AC 12/09 INH 1023 Allopurinol 100 MG DAILY 11/30 1000 AC 12/09 PO 0943 Atorvastatin Calcium 10 MG 11/30 AC 12/08 PO 214 Citalopram 20 MG 11/30 AC 12/08 Hydrobromide PO 1634 Docusate Sodium 100 MG 12/03 1600 AC 12/08 PO 1634 Donepezil HCl 10 MG DAILY 11/30 1000 AC 12/09 PO 0944 Enoxaparin Sodium 40 MG 11/29 AC 12/08 SC 2143 Guaifenesin 10 ML .STK-MED ONE 12/08 2136 DC PO 12/08 2137 Guaifenesin 10 ML Q6P PRN 11/29 2345 AC 12/08 PO 2142 Ibuprofen 600 MG Q6P PRN 11/29 2030 AC 12/06 PO 2324 Insulin Aspart 0 TIDAC 12/07 0800 AC 12/08 SC 1637 Ipratropium [place] 2.5 ML BID 12/07 2199 AC 12/09 INH 1023 Levetiracetam 500 MG BID 11/29 2241 AC 12/09 PO 0944 Lisinopril 10 MG DAILY 11/30 1000 AC 12/09 PO 0944 Melatonin 3 MG AT BEDTIME 12/02 2346 AC 12/08 PO 2142 Memantine 10 MG BID 11/30 1000 AC 12/09 PO 0944 Mirtazapine 7.5 MG AT BEDTIME NEED.. 11/30 2199 AC 12/07 PO 2058 Oxybutynin Chloride 10 MG TID 12/04 1600 AC 12/09 PO 0944 Oxycodone HCl 10 MG .STK-MED ONE 12/08 2137 DC PO 12/08 2138 Oxycodone HCl 10 MG Q6P PRN 12/07 0645 AC 12/08 PO 2142 Senna/Docusate Sodium 2 TAB DAILY 11/30 1000 AC 12/09 PO 0943 Sodium Hypochlorite 1 HILARIA BID 11/30 1000 AC 12/09 TOP 0944 Trazodone HCl 25 MG Q12P PRN 11/29 2245 AC 11/30 PO 0121 Vancomycin HCl 1,000 MG Q12H 12/08 2245 AC 12/09 Dextrose/Water 250 ML IV 0944 Vancomycin HCl 1,250 MG Q12H 12/06 1045 DC 12/08 Dextrose/Water 250 ML IV 12/08 2244 1150 Vital Signs & I&O Last 24 Hrs of Vitals and I&O: Vital Signs Date Time Temp Pulse Resp B/P Pulse O2 O2 Flow FiO2 Ox Delivery Rate 12/09 1059 93 Room Air Room Air 12/09 0944 83 144/62 12/09 0730 97.7 78 20 124/60 93 Room Air 12/08 2225 97.9 95 20 144/56 94 Room Air 12/08 1429 98.2 80 20 140/62 94 Intake & Output 12/09 1600 12/09 0800 12/09 0000 Intake Total 300 600 Output Total 200 325 Balance 100 275 Intake, IV 250 Intake, Oral 50 600 Output, Stool 0 Output, Urine 200 325 Laboratory Tests 12/09 12/08 0630 1340 Chemistry Sodium (137 - 145 mmol/L) 137 Potassium (3.5 - 5.1 mmol/L) 5.0 Chloride (98 - 107 mmol/L) 99 Carbon Dioxide (22 - 30 mmol/L) 29 Anion Gap (5 - 16) 9 BUN (9 - 20 mg/dL) 29 H Creatinine (0.7 - 1.2 mg/dL) 0.7 Estimated GFR (>60 ml/min) > 60 BUN/Creatinine Ratio (7 - 25 %) 41.4 H Hematology CBC w Diff NO MAN DIFF REQ WBC (4.8 - 10.8 /CUMM) 12.6 H RBC (4.70 - 6.10 /CUMM) 3.22 L Hgb (14.0 - 18.0 G/DL) 8.6 L Hct (42 - 52 %) 27.2 L MCV (80.0 - 94.0 FL) 84.7 MCH (27.0 - 31.0 PG) 26.6 L RDW (11.5 - 14.5 %) 21.2 H Plt Count (130 - 400 /CUMM) 665 H MPV (7.4 - 10.4 FL) 7.0 L Gran % (42.2 - 75.2 %) 69.4 Lymphocytes % (20.5 - 51.1 %) 14.6 L Monocytes % (1.7 - 9.3 %) 9.2 Eosinophils % (0 - 5 %) 6.4 H Basophils % (0.0 - 2.0 %) 0.4 Absolute Granulocytes (1.4 - 6.5 /CUMM) 8.7 H Absolute Lymphocytes (1.2 - 3.4 /CUMM) 1.8 Absolute Monocytes (0.10 - 0.60 /CUMM) 1.2 H Absolute Eosinophils (0.0 - 0.7 /CUMM) 0.8 Absolute Basophils (0.0 - 0.2 /CUMM) 0.1 PUBS MCHC (33.0 - 37.0 G/DL) 31.4 L Urines Urinalysis MOD H Urine Color (YEL,AMB,STR) YEL Urine Clarity (CLEAR) CLEAR Urine pH (5.0 - 8.0) 6.0 Ur Specific [place] (1.001 - 1.035) 1.015 Urine Protein (NEG,<30 MG/DL) NEG Urine Ketones (NEG) NEG Urine Nitrite (NEG) NEG Urine Bilirubin (NEG) NEG Urine Urobilinogen (0.1 - 1.0 EU/dl) 0.2 Ur Leukocyte Esterase (NEG) SMALL H Ur Microscopic SEDIMENT EXAMINED Urine RBC (0 - 5 /HPF) RARE Urine WBC (0 - 2 /HPF) 3-5 H Ur Epithelial Cells (NONE,FEW) FEW Urine Hemoglobin (NEG) NEG Urine Glucose (N MG/DL) NEG 12/08 12/07 0600 2050 Chemistry Sodium (137 - 145 mmol/L) 140 Potassium (3.5 - 5.1 mmol/L) 5.1 Chloride (98 - 107 mmol/L) 100 Carbon Dioxide (22 - 30 mmol/L) 30 Anion Gap (5 - 16) 10 BUN (9 - 20 mg/dL) 25 H Creatinine (0.7 - 1.2 mg/dL) 0.7 Estimated GFR (>60 ml/min) > 60 BUN/Creatinine Ratio (7 - 25 %) 35.7 H Hematology CBC w Diff NO MAN DIFF REQ WBC (4.8 - 10.8 /CUMM) 15.2 H RBC (4.70 - 6.10 /CUMM) 3.32 L Hgb (14.0 - 18.0 G/DL) 8.8 L Hct (42 - 52 %) 28.2 L MCV (80.0 - 94.0 FL) 84.8 MCH (27.0 - 31.0 PG) 26.4 L RDW (11.5 - 14.5 %) 20.4 H Plt Count (130 - 400 /CUMM) 682 H MPV (7.4 - 10.4 FL) 7.0 L Gran % (42.2 - 75.2 %) 71.3 Lymphocytes % (20.5 - 51.1 %) 11.8 L Monocytes % (1.7 - 9.3 %) 9.5 H Eosinophils % (0 - 5 %) 7.0 H Basophils % (0.0 - 2.0 %) 0.4 Absolute Granulocytes (1.4 - 6.5 /CUMM) 10.9 H Absolute Lymphocytes (1.2 - 3.4 /CUMM) 1.8 Absolute Monocytes (0.10 - 0.60 /CUMM) 1.4 H Absolute Eosinophils (0.0 - 0.7 /CUMM) 1.1 Absolute Basophils (0.0 - 0.2 /CUMM) 0.1 PUBS MCHC (33.0 - 37.0 G/DL) 31.2 L Toxicology Vancomycin Trough (10.0 - 20.0 ug/mL) 22.4 H Microbiology Date/Time Procedure - Status Source Growth 12/08 1340 Urine Culture - RES URINE ROUT 12/06 1830 Culture & Sensitivity - COMP TRUNK/O.R. 12/06 1830 Gram Stain - COMP TRUNK/O.R. 12/06 1829 Culture & Sensitivity - RES TRUNK/O.R. ENTEROCOCCUS 12/06 183 Gram Stain - RES TRUNK/O.R. Impression/Plan Impression/Plan Impression/Plan: Gen Afebrile, NAD HEENT AT, scleta anicteric, no thrush. Neck is supple with no adenopathy. Lungs BS present, scaterred b/l rhonchi w/ cough Heart S1 S2 present, no murmur. Abdomen is soft, nontender with positive bowel sounds; suprapubic tube in place, L colostomy. Skin large sacral decubitus Extremities no cyanosis, clubbing or edema. Neuro paraplegia, A&O x 3 IMPRESSION Mr. 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 Bacteremia (Strep gr. G); OM sacrum and L ischial tuberosity ; local cx Strep gr G and MRSA; started iv Vancomycin 12/06 Leukocytosis REC CONT Abx per ID Off load mattress Cont current meds Will follow
--- NOTE | 2016-12-09 12:04 | PN- Infect Dx ---
Subjective Subjective: Feeling well; no fever. Fair appetite. Review of Systems Comments: 0 points reviewed as noted. Objective Last 24 Hrs of Vital Signs/I&O Vital Signs Date Time Temp Pulse Resp B/P Pulse O2 O2 Flow FiO2 Ox Delivery Rate 12/09 1059 93 Room Air Room Air 12/09 0944 83 144/62 12/09 0730 97.7 78 20 124/60 93 Room Air 12/08 2225 97.9 95 20 144/56 94 Room Air 12/08 1429 98.2 80 20 140/62 94 Intake & Output 12/09 1600 12/09 0800 12/09 0000 Intake Total 300 600 Output Total 200 325 Balance 100 275 Intake, IV 250 Intake, Oral 50 600 Output, Stool 0 Output, Urine 200 325 Physical Exam Other Physical Findings: Gen Afebrile, NAD HEENT AT, scleta anicteric, no thrush. Neck is supple with no adenopathy. Lungs BS present, scaterred b/l rhonchi Heart S1 S2 present, no murmur. Abdomen is soft, nontender with positive bowel sounds; suprapubic tube in place, L colostomy. Skin large sacral decubitus Extremities no cyanosis, clubbing or edema. Neuro paraplegia, A&O x 3 Results Last 24 Hours of Lab Results: Laboratory Tests 12/09 12/08 0630 1340 Chemistry Sodium (137 - 145 mmol/L) 137 Potassium (3.5 - 5.1 mmol/L) 5.0 Chloride (98 - 107 mmol/L) 99 Carbon Dioxide (22 - 30 mmol/L) 29 Anion Gap (5 - 16) 9 BUN (9 - 20 mg/dL) 29 H Creatinine (0.7 - 1.2 mg/dL) 0.7 Estimated GFR (>60 ml/min) > 60 BUN/Creatinine Ratio (7 - 25 %) 41.4 H Hematology CBC w Diff NO MAN DIFF REQ WBC (4.8 - 10.8 /CUMM) 12.6 H RBC (4.70 - 6.10 /CUMM) 3.22 L Hgb (14.0 - 18.0 G/DL) 8.6 L Hct (42 - 52 %) 27.2 L MCV (80.0 - 94.0 FL) 84.7 MCH (27.0 - 31.0 PG) 26.6 L RDW (11.5 - 14.5 %) 21.2 H Plt Count (130 - 400 /CUMM) 665 H MPV (7.4 - 10.4 FL) 7.0 L Gran % (42.2 - 75.2 %) 69.4 Lymphocytes % (20.5 - 51.1 %) 14.6 L Monocytes % (1.7 - 9.3 %) 9.2 Eosinophils % (0 - 5 %) 6.4 H Basophils % (0.0 - 2.0 %) 0.4 Absolute Granulocytes (1.4 - 6.5 /CUMM) 8.7 H Absolute Lymphocytes (1.2 - 3.4 /CUMM) 1.8 Absolute Monocytes (0.10 - 0.60 /CUMM) 1.2 H Absolute Eosinophils (0.0 - 0.7 /CUMM) 0.8 Absolute Basophils (0.0 - 0.2 /CUMM) 0.1 PUBS MCHC (33.0 - 37.0 G/DL) 31.4 L Urines Urinalysis MOD H Urine Color (YEL,AMB,STR) YEL Urine Clarity (CLEAR) CLEAR Urine pH (5.0 - 8.0) 6.0 Ur Specific [place] (1.001 - 1.035) 1.015 Urine Protein (NEG,<30 MG/DL) NEG Urine Ketones (NEG) NEG Urine Nitrite (NEG) NEG Urine Bilirubin (NEG) NEG Urine Urobilinogen (0.1 - 1.0 EU/dl) 0.2 Ur Leukocyte Esterase (NEG) SMALL H Ur Microscopic SEDIMENT EXAMINED Urine RBC (0 - 5 /HPF) RARE Urine WBC (0 - 2 /HPF) 3-5 H Ur Epithelial Cells (NONE,FEW) FEW Urine Hemoglobin (NEG) NEG Urine Glucose (N MG/DL) NEG Last 24 Hours of Perfecto Results: SPEC #: [id number] TIP: 12/06/16 STATUS: RES RECD: 12/06/[address]: ARPAN MULLIGAN,SLIM Edmonds SOURCE: TRUNK/O.R. ENTR: 12/06/[address]: KELSEY MULLIGAN,SLIM Avalos SPDESC: BACK LOWER SETH MULLIGAN,[facility] ORDERED: TRUNK OR CULT COMMENT: ADDITIONAL INFORMATION: LEFT ISCHEAL BONE Procedure Result > GRAM STAIN Final 02/17/17-1247 WHITE BLOOD CELLS FEW GRAM POSITIVE COCCI FEW > TRUNK AREA OR CULTURE Preliminary 12/08/16-1315 Moderate growth of: ENTEROCOCCUS FURTHER SENSITIVITIES TO FOLLOW Light growth of: GRAM POSITIVE COCCI Identification to follow REPORTED TO YVES AT 0820 12/07/16 LAB.SVCY 1. ENTEROCOCCUS RX AB ------ -- AMPICILLIN R 12/08 UC neg at 1 day. Recent Imaging Studies: MRI: IMPRESSION: 1. Osteomyelitis of the S5 segment of the sacrum with absence of the coccyx and an overlying sacral decubitus ulcer which extends to the depth of bone. No abscess. 2. Osteomyelitis of the left ischial tuberosity with overlying decubitus ulcer extending to the depth of bone. This decubitus ulcer is contiguous with the aforementioned sacral ulcer. 3. No additional foci of osteomyelitis are identified within the lumbar spine. Degeneration, edema, and cortical irregularity are present at the pubic symphysis which is only partially included on this study. Pubic symphyseal infection is not excluded. 4. Multilevel degenerative disc disease in the lumbar spine, most severe at L2-L3. There is [id number] multilevel facet arthropathy. 5. Iasmddqj-at-ogocfu central canal stenosis at L4-L5. DICTATED BY: RUSS MINAYA MD DATE/TIME DICTATED:12/03/161318 DOUGH CUTTER:JANNA DATE/TIME TRANSCRIBED:12/03/161318 Assessment/Plan Impression: Mr. 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 G); Polymicrobial OM sacrum and L ischial tuberosity ; local cx Strep gr G and MRSA; started iv Vancomycin 12/06; now OR culture positive Enterococcus sensitivity to vancomycin pending; if R to vancomycin iv daptomycin might be required; f/u w/ Dr. Farmer recom (back 12/10/16) Leukocytosis; WBC trending down Neurogenic bladder (urology following) Suggestion: 1. Monitor CBC, BMP. Nutrition per team. F/U wound care/plastic sx 2. F/U final wound cx obtained in OR to further guide antibiotic treatment ( Enterococcus) 3. Cont iv Vancomycin started 12/06; tx for min 6 weeks; goal vancomycin trough 15-20). 4. Order Vanco trough today as vancomycin level elevated on 12/07; redose per pharmacy.
[2016-12-09 14:20] VITALS: BP 130/70
[2016-12-09 23:09] VITALS: BP 142/50
[2016-12-10 06:07] VITALS: BP 120/50
--- NOTE | 2016-12-10 07:06 | PN- Housestaff ---
Subjective Follow-up For: Sacral decubitus UTI Subjective: I saw and examined the patient this AM, he is alert and oriented in no distress, denies fever chills, SOB, nausea vomiting, abdominal pain, change in the stool. Review of Systems Constitutional: Denies: chills, fever. EENTM: Reports: no symptoms. Cardiovascular: Reports: no symptoms. Respiratory: Reports: no symptoms. Gastrointestinal: Denies: abdominal pain, changes in stool. Genitourinary: Reports: no symptoms. Musculoskeletal: Reports: no symptoms. Skin: Reports: no symptoms. Objective Last 24 Hrs of Vital Signs/I&O Vital Signs Date Time Temp Pulse Resp B/P Pulse O2 O2 Flow FiO2 Ox Delivery Rate 12/10 1051 87 140/52 12/10 1034 98 Room Air Room Air 12/10 0607 97.6 83 20 120/50 90 Room Air 12/09 2309 98.9 94 20 142/50 91 Room Air 12/09 2139 93 Room Air 12/09 1420 98.2 80 20 130/70 98 Intake & Output 12/10 1600 12/10 0800 12/10 0000 Intake Total 675 Output Total 600 350 Balance -600 325 Intake, IV 75 Intake, Oral 600 Output, Urine 600 350 Physical Exam General Appearance: Alert, Oriented X3, Cooperative, No Acute Distress Skin: patient has colostomy in place, as well as suprapubic catheter, no erythema or discharge noted around the ostomy adn the catheter. HEENT: Atraumatic, EOMI Neck: Supple Cardiovascular: Normal S1, Normal S2, No Murmurs Lungs: Clear to Auscultation, Normal Air Movement Abdomen: Soft, No Tenderness Neurological: Normal Speech, paraplegic (0/5 forces on the lower extremities), 5 /5 forces on the upper extremities, sensory deficit present from upper chest downwards. Extremities: Normal Pulses, edema on the feet and toes, non pitting. no changes in color. Vascular: Pulses Symmetrical Current Medications: Current Medications Sig/Mey Start time Last Medication Dose Route Stop Time Status Admin Acetaminophen 650 MG Q6P PRN 11/29 2030 AC PO Albuterol Sulfate 3 ML BID 12/07 2199 AC 12/10 INH 1029 Allopurinol 100 MG DAILY 11/30 1000 AC 12/10 PO 1051 Atorvastatin Calcium 10 MG 11/30 AC 12/09 PO 210 Citalopram 20 MG 1600 11/30 1600 AC 12/09 Hydrobromide PO 1600 Daptomycin 500 MG Q24H 12/09 1400 AC 12/09 Sodium Chloride 50 ML IV 1600 Docusate Sodium 100 MG 1600 12/03 1600 AC 12/09 PO 1600 Donepezil HCl 10 MG DAILY 11/30 1000 AC 12/10 PO 1051 Enoxaparin Sodium 40 MG 2200 11/29 2200 AC 12/09 SC 2115 Guaifenesin 10 ML .STK-MED ONE 12/09 2105 DC PO 12/09 2106 Guaifenesin 10 ML Q6P PRN 11/29 2345 AC 12/09 PO 210 Ibuprofen 600 MG Q6P PRN 11/29 2030 AC 12/06 PO 2324 Insulin Aspart 0 TIDAC 12/07 0800 AC 12/09 SC 1730 Ipratropium [place] 2.5 ML BID 12/07 2200 AC 12/10 INH 1029 Levetiracetam 500 MG BID 11/29 2241 AC 12/10 PO 1051 Lisinopril 10 MG DAILY 11/30 1000 AC 12/10 PO 1051 Melatonin 3 MG AT BEDTIME 12/02 2346 AC 12/09 PO 2110 Memantine 10 MG BID 11/30 1000 AC 12/10 PO 1051 Mirtazapine 7.5 MG AT BEDTIME NEED.. 11/30 2200 AC 12/07 PO 205 Oxybutynin Chloride 10 MG TID 12/04 1600 AC 12/10 PO 1051 Oxycodone HCl 10 MG .STK-MED ONE 12/09 2105 DC PO 12/09 2106 Oxycodone HCl 10 MG Q6P PRN 12/07 0645 AC 12/09 PO 2110 Senna/Docusate Sodium 2 TAB DAILY 11/30 1000 AC 12/10 PO 1051 Sodium Hypochlorite 1 HILARIA BID 11/30 1000 AC 12/10 TOP 1051 Trazodone HCl 25 MG Q12P PRN 11/29 2245 AC 11/30 PO 0121 Last 24 Hrs of Lab/Perfecto Results Last 24 Hrs of Labs/Mics: Laboratory Tests 12/10/16 0820: Total Bilirubin 0.5, Direct Bilirubin 0.5 H, AST 35, ALT 48, Alkaline Phosphatase 127 H, Total Protein 7.6, Albumin 3.3 L 12/09/16 2145: Vancomycin Trough Cancelled Assessment/Plan Assessment: Mr. 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 Patient is admitted to the general medicine floor and the following is the management: 1. Leukocytosis, possible sources: UTI (chronic indewlling catheter, ducubitus ulcer, Pneumonia (respiratory culture grew G negative bacteria). patient has remained afebrile. WBC was increased yesterday * Initial CXR showed likely left sided airspace disease. Received Zosyn 4.5 every 6 hours per ID recommendation on 12/01/16 completed 5 days on 12/05/15. * MRI of the lumbar spine: Osteomyelitis of the S5 segment of the sacrum with absence of the coccyx and an overlying sacral decubitus ulcer which extends to the depth of bone. Osteomyelitis of the left ischial tuberosity with overlying decubitus ulcer extending to the depth of bone. This decubitus ulcer is contiguous with the aforementioned sacral ulcer. * Repeat blood culture on 12/03/16: NG so far * Urine culture shows gram negative rods, however consider contamination * Robitussin PRN for cough 2. UTI and urine leakage from penis * Suprapubic catheter needed s/p paraplegia * Urine culture showed gram negative rods, patient received Zosyn for 5 days * Catheter changed during this admission, has been functioning properly * Patient is started on 30 mg Oxybutinin since 12/04/16, patient will follow up with Urology outpatient * repeated UA/UC, will follow, NG so far 3. Decubitus ulcer * Status post debridement POD#4 * OR culture was positive for vancomycin-resistant enterococcus, ID was notified and recommended switching from vancomycin to daptomycin 500 mg every 24 hours. * patient is discharged on IV vancomycin for 4 weeks, he will have CPK and ESR and CBC checked every week and copy PCP and ID. * will follow up with PCP and plastic sx outpatient 4. DM * will discharge the patient on oral medications 5. Seizure history * Continue keppra 500 mg PO BID 6. HTN, HLD * Lipitor 10 mg PO daily * Lisinopril 10 mg PO daily 7. Bipolar depression * Continue celexa and trazodone * Aricept 10 mg PO daily * Continue remeron 7.5 mg PO QPM DNR/DNI Diet: CC2 Mild pain pathway DVTP: SC Lovenox Problem List: 1. Paraplegia 2. Decubitus ulcer 3. Leukocytosis Pain Ratin Pain Location: no pain Pain Goal: Pain 4 or less Pain Plan: acetaminophen ofor mild to mod pain oxycodone for severe pain Tomorrow's Labs & Rationales: none
--- NOTE | 2016-12-10 08:11 | PN- Wound Care ---
Subjective Subjective: Patient feels well awake alert without complaints Objective Vital Signs and I&Os Vital Signs Result Date Time Pulse Ox 90 12/10 606 B/P 120/50 12/10 06 O2 Delivery Room Air 12/10 06 Temp 97.6 12/10 06 Pulse 83 12/10 0607 Resp 20 12/10 06 O2 Flow Rate Room Air 12/09 1059 Intake & Output 12/10 0000 12/09 1600 12/09 0800 Intake Total 675 1050 300 Output Total 350 750 200 Balance 325 300 100 Intake, IV 75 250 250 Intake, Oral 600 800 50 Output, Stool 0 Output, Urine 350 750 200 Exam of stage IV decubitus ulcer shows them to be markedly improved with minimal slough there is still extensive exposed bone and undermining Impression/Plan Impression/Plan Impression/Plan: 71-year-old gentleman paraplegic admitted with stage IV decubitus ulcer present on admission, complicated by osteomyelitis. Wound to been debrided and are clean her with minimal slough. If the patient is to remain hospitalized replacement of wound VAC can be initiated
--- NOTE | 2016-12-10 08:51 | PN- Att Addend ---
Attending Addendum Attending Brief Note Patient awake and alert General Appearance: Lethargic Skin: Decubitus ulcer HEENT: [place] Neck: Supple, No JVD Cardiovascular: Regular Rate, Normal S1, Normal S2, No Murmurs Lungs: Clear to Auscultation, Normal Air Movement Abdomen: Left colostomy bag and a suprapubic catheter Neurological: Paraplegic Extremities: No Clubbing, No Cyanosis, No Edema Vascular: Normal Pulses Assessment 71-year-old male with history of aortic abdominal aneurysm status post repair, paraplegia with suprapubic catheter, chronic nonhealing sacral decubitus ulcer, diabetes, dyslipidemia, coronary artery disease, hypertension sent from rehabilitation facility after abnormal labs including leukocytosis and elevated ESR of about 100. Patient was recently hospitalized and had a debridement by Roman Dumont MD with wound VAC. MRI shows S5 and ischeal tuberosity osteomyelitis without any collection or abscesses. Plastic surgery performed debridement with deep tissue cultures showing Vanco mycin resistant enterococcus. Patient is currently on daptomycin. Plan Continue daptomycin Check ESR weekly Continue insulin and Accu-Cheks Continue other home meds DVT prophylaxis Current Medications Sig/Mey Start time Last Medication Dose Route Stop Time Status Admin Acetaminophen 650 MG Q6P PRN 11/29 2030 AC PO Albuterol Sulfate 3 ML BID 12/07 2200 AC 12/09 INH 2046 Allopurinol 100 MG DAILY 11/30 1000 AC 12/09 PO 0943 Atorvastatin Calcium 10 MG 2000 11/30 2000 AC 12/09 PO 2109 Citalopram 20 MG 1600 11/30 1600 AC 12/09 Hydrobromide PO 1600 Daptomycin 500 MG Q24H 12/09 1400 AC 12/09 Sodium Chloride 50 ML IV 1600 Docusate Sodium 100 MG 1600 12/03 1600 AC 12/09 PO 1600 Donepezil HCl 10 MG DAILY 11/30 1000 AC 12/09 PO 0944 Enoxaparin Sodium 40 MG 0 11/29 2200 AC 12/09 SC 2115 Guaifenesin 10 ML .STK-MED ONE 12/09 2105 DC PO 12/09 210 Guaifenesin 10 ML Q6P PRN 11/29 2345 AC 12/09 PO 2109 Ibuprofen 600 MG Q6P PRN 11/29 2030 AC 12/06 PO 2324 Insulin Aspart 0 TIDAC 12/07 0800 AC 12/09 SC 1730 Ipratropium [place] 2.5 ML BID 12/07 2200 AC 12/09 INH 2045 Levetiracetam 500 MG BID 11/29 2241 AC 12/09 PO 2110 Lisinopril 10 MG DAILY 11/30 1000 AC 12/09 PO 0944 Melatonin 3 MG AT BEDTIME 12/02 2346 AC 12/09 PO 2110 Memantine 10 MG BID 11/30 1000 AC 12/09 PO 2110 Mirtazapine 7.5 MG AT BEDTIME NEED.. 11/30 220 AC 12/07 PO 205 Non-Formulary See Dose DAILY 12/09 1256 CAN Medication Insts (1) ANY Oxybutynin Chloride 10 MG TID 12/04 1600 AC 12/09 PO 210 Oxycodone HCl 10 MG .STK-MED ONE 12/09 2105 DC PO 12/09 2106 Oxycodone HCl 10 MG Q6P PRN 12/07 0645 AC 12/09 PO 2110 Senna/Docusate Sodium 2 TAB DAILY 11/30 1000 AC 12/09 PO 0943 Sodium Hypochlorite 1 HILARIA BID 11/30 1000 AC 12/09 TOP 2115 Trazodone HCl 25 MG Q12P PRN 11/29 2245 AC 11/30 PO 0121 Vancomycin HCl 1,000 MG Q12H 12/08 2245 DC 12/09 Dextrose/Water 250 ML IV 0944 Dose Instructions: (1)Non-Formulary Medication: 350MG IV Q24 HRS Laboratory Tests 12/10 12/09 0820 2145 Chemistry Total Bilirubin Pending Direct Bilirubin Pending AST Pending ALT Pending Alkaline Phosphatase Pending Total Protein Pending Albumin Pending Toxicology Vancomycin Trough Cancelled Vital Signs Date Time Temp Pulse Resp B/P Pulse O2 O2 Flow FiO2 Ox Delivery Rate 12/10 0607 97.6 83 20 120/50 90 Room Air 12/09 2309 98.9 94 20 142/50 91 Room Air 12/099 93 Room Air 12/09 1420 98.2 80 20 130/70 98 12/09 1059 93 Room Air Room Air 12/09 0944 83 144/62
[2016-12-10 14:21] VITALS: BP 130/70
[2016-12-10] MEDS ORDERED: DAPTOMYCIN500 MG IV (14:56)
--- NOTE | 2016-12-10 15:46 | PN- Infect Dx ---
Subjective Subjective: Events of the past week reviewed with patient taken back to the OR on December 06 for debridement of the sacral decubitus with antibiotics adjusted several times based on the results of the blood, urine, superficial decubitus and bone cultures. He continues to report leakage around the suprapubic tube and occasional urination through the urethra with Urology input noted. He offers no other complaints at this time. Objective Last 24 Hrs of Vital Signs/I&O Vital Signs Date Time Temp Pulse Resp B/P Pulse O2 O2 Flow FiO2 Ox Delivery Rate 12/10 1421 98.2 80 20 130/70 94 12/10 1051 87 140/52 12/10 1034 98 Room Air Room Air 12/10 0607 97.6 83 20 120/50 90 Room Air 12/09 2309 98.9 94 20 142/50 91 Room Air 12/09 2139 93 Room Air Intake & Output 12/10 1600 12/10 0800 12/10 0000 Intake Total 675 Output Total 1100 600 350 Balance -1100 -600 325 Intake, IV 75 Intake, Oral 600 Output, Urine 1100 600 350 Physical Exam Other Physical Findings: He appears comfortable in no acute distress Lungs are clear Abdomen suprapubic catheter in place Back wound reportedly improved Extremities PICC in place in the right upper extremity Results Last 24 Hours of Lab Results: Laboratory Tests 12/10 12/09 0820 2145 Chemistry Total Bilirubin (0.2 - 1.3 mg/dL) 0.5 Direct Bilirubin (< 0.4 mg/dL) 0.5 H AST (17 - 59 U/L) 35 ALT (21 - 72 U/L) 48 Alkaline Phosphatase (< 127 U/L) 127 H Creatine Kinase (55 - 170 U/L) 21 L Total Protein (6.3 - 8.2 g/dL) 7.6 Albumin (3.5 - 5.0 g/dL) 3.3 L Toxicology Vancomycin Trough Cancelled Last 24 Hours of Perfecto Results: OR culture December 06 labeled left ischial bone positive for beta strep Group G and VRE Urine culture December 08 negative Assessment/Plan Impression: Group G strep bacteremia most likely secondary to his sacral decubitus, with isolation of this organism from a superficial culture of the decubitus sent 3 days after admission and also from the OR culture, labeled left ischial bone, obtained 4 days ago, at the time he underwent debridement in the OR. 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 The significance of this culture is not clear as it was obtained at the same time as debridement, raising concern that it may represent contamination from the more superficial tissues; nevertheless, given the isolation of the Group G strep from the bone as well as the blood, may be obligated to commit him to another course of antibiotics. He has been placed on Daptomycin, which should cover the Group G strep and VRE as well as the MRSA, which was isolated from the superficial culture. The MRSA was not tested for Daptomycin and have requested this of the Microbiology lab. Suggestion: 1. Would obtain a baseline CPK and follow weekly 2. Follow ESR and CBC weekly 3. Follow-up sensitivity of the MRSA to Daptomycin 4. Urology follow-up as an outpatient 5. Continue Daptomycin 500 mg IV every 24 hours to complete a four-week course (until January 04)
[2016-12-10] MEDS ORDERED: OXYBUTYNIN CHLO15 M1 PO (16:10)
[2016-12-10 16:43] VITALS: BP 130/70
[2016-12-10] MEDS ORDERED: OXYCODONE HCL10 M2 PO (17:19)
--- NOTE | 2016-12-18 12:09 | Operative Report ---
See Addendum Operative/Inv Procedure Report Surgery Date: 11/29/16 Name of Procedure: debride sacral wound with ostectomy in prep for muscle flap Pre-Operative Diagnosis: sacral wound with fever sepsis Post-Operative Diagnosis: same Estimated Blood Loss: scant Surgeon/Manager Games: jason simon Anesthesia: moderate sedation Operative/Procedure Note Note: Patient was counseled Wills proceeded the alternatives risks and expected outcomes as relates to debridement of the surgical wound. Patient has presented with fever sepsis and elevated white count and concern is that his source is the sacral bone which was exposed and covered with some necrotic tissue. We talked about the need for additional surgery infection bleeding pain and numbness. Once every 2 is taken to the operating room placed lateral on the table. Intravenous sedation was given and the buttock was prepped and draped in usual sterile fashion. A complete periwound debridement sharply with an with the use of electrocautery was carried down. An ostectomy was performed a portion of which was sent for micron path analysis. No purulent collections were identified. The wound was made hemostatic and packed.
== END 2016-12-10 17:50 | DRG 515 ==
LOC: ENRESERVTM → ENRESERVDT → ERH 17:23 → ERHI 19:14 → 2NA 19:14
PROVIDERS: Internal Medicine; Ophthalmology; Physician Assistant; Student in an Organized Health Care Education/Training Program; ADMIT Internal Medicine
PROC: 0QB30ZZ Excision of Left Pelvic Bone, Open Approach (ICD-10-PCS; principal; 2016-12-06)
DX: M46.28 Osteomyelitis of vertebra, sacral and sacrococcygeal region (principal); L89.154 Pressure ulcer of sacral region, stage 4; G82.20 Paraplegia, unspecified; I11.9 Hypertensive heart disease without heart failure; N31.9 Neuromuscular dysfunction of bladder, unspecified; B96.5 Pseudomonas (aeruginosa) (mallei) (pseudomallei) as the cause of diseases classified elsewhere; B95.1 Streptococcus, group B, as the cause of diseases classified elsewhere; B95.2 Enterococcus as the cause of diseases classified elsewhere; E11.9 Type 2 diabetes mellitus without complications; T83.511A Infection and inflammatory reaction due to indwelling urethral catheter, initial encounter; Z16.21 Resistance to vancomycin; I25.10 Atherosclerotic heart disease of native coronary artery without angina pectoris; Z79.4 Long term (current) use of insulin; E78.5 Hyperlipidemia, unspecified; K21.9 Gastro-esophageal reflux disease without esophagitis; Z66 Do not resuscitate
CPT/HCPCS: 2NAP; 72149; 87070; 87075; 36415; 72158; 74177; 81001; 82436; 87040; 87086; 87147; 87450; 87804; 87804-59; 88307; 93005; 93010; A9579; C1769; J0690; J0713; J0878; J1650; J2543; J3370; J7042; J7060

== ENCOUNTER 2016-12-25 08:55 | Inpatient (IN) | payer OTHER, MEDICARE ==
[~2016-12-25] VITALS: Ht 175.3 cm; Wt 78.0 kg
[~2016-12-25 08:55] MED LIST changes: +ALLOPURINOL100 M1 PO; +ARICEPT10 M1 PO; +BENAZEPRIL HCL5 MG PO; +CITALOPRAM HBR20 MG PO; +DAPTOMYCIN500 MG IV; +IPRAT-ALBUT 0.5-3 ML INH; +KEPPRA500 M1 PO; +LEVEMIR100 UNIT/1 SC; +LIPITOR10 M1 PO; +NAMENDA XR28 M1 PO; +OCUVITE EYE +1 EACH PO; +OS-CAL 500+D31 EAC1 PO; +OXYBUTYNIN CHLO15 M1 PO; +OXYCODONE HCL10 M2 PO; +PRO-STAT PROFI887 ML PO; +REMERON15 M3 PO; +SENNA LAXATIVE1 EACH PO; +STOOL SOFTENER100 M3 PO; +TRAZODONE HCL50 M1 PO; +VITAMIN C500 M6 PO; +VITAMIN D250000 UNIT PO
--- NOTE | 2016-12-25 09:03 | NUR ---
PT BIBA FROM [facility] FOR TACHYPNEA. PT'S RA O2 SATS WERE FOUND TO BE 77% AT [facility], PT WAS PLACED ON 4L BY EMS, SATS CAME UP TO 92%. PT ARRIVES WITH NO COMPLAINTS. RA SATS 81%, PT PLACED ON 3L NC, SATS UP TO 93%. PT HAS JUWAN PICC LINE FOR IV ABX FOR MRSA WOUND TO LEFT HIP. PT ALSO HAS WOUND VAC IN PLACE TO LEFT HIP. PT ALSO HAS SUPRAPUBIC TUBE, PLACED 4 WEEKS AGO. PT AWAITING PROVIDER EVAL.
--- NOTE | 2016-12-25 09:28 | NUR ---
IV EST. #20 LFA.
[2016-12-25 09:29] LABS: ABSOLUTE BASOPHIL COUNT 0 /CUMM (0.0-0.2); ABSOLUTE EOSINOPHIL COUNT 0.5 /CUMM (0.0-0.7); ABSOLUTE GRANULOCYTE CT 4.7 /CUMM (1.4-6.5); BASOPHIL % 0.3 % (0.0-2.0); EOSINOPHIL % 7.5 % (0-5); GRANULOCYTE % 64.6 % (42.2-75.2); HEMATOCRIT 27.9 % (42-52); MEAN CORPUSCULAR HGB 25.8 PG (27.0-31.0); MEAN CORPUSCULAR HGB CONC 31.8 G/DL (33.0-37.0); MEAN CORPUSCULAR VOLUME 80.9 FL (80.0-94.0); MEAN PLATELET VOLUME 7.2 FL (7.4-10.4); PLATELET COUNT 522 /CUMM (130-400); RED BLOOD CELL CT 3.44 /CUMM (4.70-6.10); WHITE BLOOD CELL COUNT 7.3 /CUMM (4.8-10.8)
--- NOTE | 2016-12-25 10:08 | ED GENERAL ADULT ---
History of Present Illness General Chief Complaint: General Adult Stated Complaint: BIBA, TACHYPNEIA AT [facility], NO COMPLAINTS Source: patient, old records Exam Limitations: no limitations Vital Signs & Intake/Output Vital Signs & Intake/Output Vital Signs Date Time Temp Pulse Resp B/P Pulse O2 O2 Flow FiO2 Ox Delivery Rate 12/26 0945 120/60 / 0800 98.3 77 20 120/58 91 Nasal 3.0L Cannula / 0038 97.6 81 20 122/57 92 03/08 0000 Nasal 3.0L Cannula 12/25 2055 97.5 83 20 118/58 91 Nasal 3.0L Cannula / 1932 98.8 90 18 120/58 95 Nasal 3.0L Cannula / 1608 93 Nasal 3.0L Cannula / 1606 98.8 78 18 146/73 93 Nasal 3.0L Cannula / 1601 98.8 91 18 143/67 03/07 1601 98.8 91 18 143/67 95 Nasal 3.0L Cannula / 1541 Nasal 3.0L Cannula 12/25 1440 94 Nasal 3.0L Cannula 12/25 1147 98.3 83 20 122/58 92 Nasal 3.0L Cannula ED Intake and Output / 0000 03/07 1200 Intake Total 200 Output Total 250 Balance -50 Intake, Oral 200 Output, Urine 250 Patient 172 lb 172 lb Weight Allergies Coded Allergies: NO KNOWN ALLERGIES (10/18/16) Triage Note: PT BIBA FROM [facility] FOR TACHYPNEA. PT'S RA O2 SATS WERE FOUND TO BE 77% AT [facility], PT WAS PLACED ON 4L BY EMS, SATS CAME UP TO 92%. PT ARRIVES WITH NO COMPLAINTS. RA SATS 81%, PT PLACED ON 3L NC, SATS UP TO 93%. PT HAS JUWAN PICC LINE FOR IV ABX FOR MRSA WOUND TO LEFT HIP. PT ALSO HAS WOUND VAC IN PLACE TO LEFT HIP. PT ALSO HAS SUPRAPUBIC TUBE, PLACED 4 WEEKS AGO. PT AWAITING PROVIDER EVAL. Triage Nurses Notes Reviewed? yes HPI: This is a 71 yo male past medical history significant for AAA repair, spinal stroke with paraplegia, with indwelling superpubic catheter and colostomy, with a nonhealing sacral decubitus ulcer, diabetes, hyperlipidemia CAD, GERD, anxiety , depression, hypertension who was brought in by ambulance from [facility] because he was noted to be tachypneic and hypoxic. Interestingly, at this time patient denies any symptoms. He said he was in his usual health this morning when the staff at [facility] noted his "raspy breathing" and found him to be "breathing fast", subsequently he was found to be hypoxic. Patient does endorse a chronic cough of one year duration, it is not changed in character, he does endorse some "congestion in his nose." He denies any sensation of shortness of breath, dizziness, headache, or confusion. Patient does not have any sensation from chest down so is unable to corroborate chest pain, chest pressure, abdominal pain, or symptoms of UTI. Per patient, urine output and colostomy output seems to be at his baseline. He denies any other changes usual health status at this time. He does however state that about 3 days ago he had a fever of 101-102. At that time he was given Tylenol and the fever subsequently resolved. He states that he had no further episodes of fever. Patient is a resident of [facility], and he states that his roommates and people surrounding him seem to have cough and respiratory illness. (LORETTA MULLIGAN,[facility]) Reconcile Medications Acetaminophen (Q-Pap) 325 MG TABLET 2 TAB PO Q4H PRN PAIN/TEMP>/100 (Reported ) Amino Acids/Protein Hydrolys (Pro-Stat Sugar Free Liquid) (Unknown Strength) LIQUID 30 ML PO BID SUPPLEMENT (Reported) Aspirin (Ecotrin*) 81 MG TABLET.DR 1 TAB PO DAILY HEART/BLOOD (Reported) Atorvastatin Calcium (Lipitor) 10 MG TABLET 1 TAB PO DAILY CHOLESTEROL ( Reported) Baclofen 10 MG TABLET 1 TAB PO DAILY UNKNOWN (Reported) Benazepril HCl 10 MG TABLET 1 TAB PO DAILY BP (Reported) Bisacodyl 10 MG SUPP.RECT 1 SUP RC PRN CONSTIPATION (Reported) Citalopram Hydrobromide (Celexa) 10 MG TABLET 1 TAB PO DAILY UNKNOWN ( Reported) Cyanocobalamin (Vitamin B-12) (Vitamin B-12) 100 MCG TABLET 1 TAB PO DAILY SUPPLEMENT (Reported) Daptomycin (Cubicin Rf) 500 MG VIAL 500 MG IV DAILY ANTIBIOTIC (Reported) Donepezil HCl (Aricept) 5 MG TABLET 1 TAB PO DAILY UNKNOWN (Reported) Ergocalciferol (Vitamin D2) (Vitamin D2) 50,000 UNIT CAPSULE 1 CAP PO Q30D SUPPLEMENT (Reported) Furosemide (Lasix) 20 MG TABLET 1 TAB PO EOD DIURETIC (Reported) Guaifenesin/Dextromethorphan (Tussin Dm Liquid) 100 MG-10 MG/5 ML LIQUID 10 ML PO TID COUGH/MUCUS (Reported) Ipratropium/Albuterol Sulfate (Iprat-Albut 0.5-3(2.5) MG/3 Ml) 0.5 MG-3 MG (2.5 MG BASE)/3 ML AMPUL.NEB 1 VIAL INH TID RESPIRATORY (Reported) Levetiracetam (Keppra) 500 MG TABLET 1 TAB PO QAM UNKNOWN (Reported) Magnesium Hydroxide (Milk Of Magnesia) 400 MG/5 ML ORAL.SUSP 30 ML PO DAILY PRN CONSTIPATION (Reported) Melatonin 5 MG TABLET 1 TAB PO QHS SLEEP (Reported) Memantine HCl (Namenda XR) 14 MG CAP.SPR.24 1 CAP PO DAILY UNKNOWN (Reported) Metformin HCl 500 MG TABLET 1 TAB PO BID DM (Reported) Mirtazapine 15 MG TABLET 0.5 TAB PO QHS UNKNOWN (Reported) Mometasone/Formoterol (Dulera 100 Mcg/5 Mcg Inhaler) 100 MCG-5 MCG/ACTUATION HFA.AER.AD 2 PUF INH BID RESPIRATORY (Reported) Multivitamin (Multi-Day Vitamins) 1 EACH TABLET 1 TAB PO DAILY SUPPLEMENT ( Reported) Na Phos,M-B/Na Phos,Di-Ba (Fleet Enema) 19 GRAM-7 GRAM/118 ML ENEMA 1 E RC DAILY PRN CONSTIPATION (Reported) [place]-3 Fatty Acids (Fish Oil) (Unknown Strength) CAPSULE (Unknown Dose) PO DAILY SUPPLEMENT (Reported) Omeprazole 20 MG CAPSULE.DR 1 CAP PO DAILY GI (Reported) Oxybutynin Chloride (Ditropan XL) 15 MG TAB.ER.24 2 TAB PO DAILY BLADDER ( Reported) Oxycodone HCl 10 MG TABLET 1 TAB PO Q8H PAIN (Reported) Potassium Chloride 20 MEQ TAB.ER.PRT 1 TAB PO QPM SUPPLEMENT (Reported) Psyllium Husk (Metamucil) (Unknown Strength) CAPSULE 1 CAP PO DAILY SUPPLEMENT (Reported) Saccharomyces Boulardii (Florastor) 250 MG CAPSULE 1 TAB PO QHS PROBIOTIC ( Reported) Trazodone HCl 50 MG TABLET 0.5 TAB PO Q12H PRN UNKNOWN (Reported) Onset: Abrupt Duration: hour(s): (FEW) Timing: single episode today Injury Environment: [facility] Severity: severe No Modifying Factors: none Associated Symptoms: TACHYPNEIC, DYSPNEIC (ZULY MULLIGAN,JAZMÍN) Past History Travel History Traveled to [place] past 21 day No Medical History Any Pertinent Medical History? see below for history Neurological: PARAPLEGIA STATUS POST SPINAL SHOCK POSTOP EENT: NONE Cardiovascular: CAD, hypertension, hyperlipidemia, ABDOMINAL ANEURYSM Respiratory: asthma Gastrointestinal: GERD Hepatic: NONE Renal: neurogenic bladder, UTI Musculoskeletal: decubitis ulcer (OSTEOMYELITIS) Psychiatric: anxiety, depression Endocrine: DIABETES TYPE 2 Blood Disorders: NONE Cancer(s): prostate cancer WORKFORCE SERVICES REPRESENTATIVE/Reproductive: NONE History of MRSA: Yes History of VRE: Yes History of CDIFF: No Influenza Vaccine: 09/04/16 Surgical History Surgical History: CABG, AAA repair x2 once 2002, and 2013 status post diverting colostomy status post suprapubic cystostomy Psychosocial History Services at Home Home Health Aide, Nursing What is your primary language Finnish Tobacco Use: Quit >30 days ago ETOH Use: denies use Illicit Drug Use: denies illicit drug use Family History Family History, If Any: MOTHER FH: coronary artery disease FH: diabetes mellitus BROTHER FH: diabetes mellitus SISTER Hx Contributory? No (BRENT BURGOS MD) Review of Systems Review of Systems Constitutional: Reports: fever. Denies: chills, diaphoresis, malaise, weakness, unexplained weight loss. EENTM: Denies: blurred vision, visual changes. Respiratory: Reports: cough. Denies: hemoptysis, orthopnea, short of breath, sputum production, wheezing. Cardiovascular: Denies: chest pain, palpitations. GI: Denies: abdominal pain, constipation, diarrhea, nausea, vomiting. Genitourinary: Denies: discharge, hematuria. Musculoskeletal: Reports: no symptoms. Skin: Reports: no symptoms. Neurological/Psychological: Reports: no symptoms. (BRENT BURGOS MD) Physical Exam Physical Exam General Appearance: no apparent distress, alert, awake, comfortable Head: atraumatic, normal appearance Eyes: Bilateral: normal appearance, PERRL, EOMI. Ears, Nose, Throat: normal pharynx, nasal congestion, patient has no dentition, but no evidence of tonsillar exudates, pharyngeal erythema, or signs of active infection in oral cavity. Neck: normal inspection, supple, full range of motion Respiratory: crackles, rhonchi Cardiovascular: regular rate/rhythm Gastrointestinal: normal bowel sounds, soft, non-tender, has l. flank scar 2/2 AAA repair. Several other scars on LLQ. Extremities: normal inspection, no edema Core Measures ACS in differential dx? Yes CVA/TIA Diagnosis: No Severe Sepsis Present: No Septic Shock Present: No (LORETTA MULLIGAN,BRENT) Progress Differential Diagnoses I considered the following diagnoses in my evaluation of the patient: [acs, dvt, pe, pna, aspiration pna] Plan of Care: Orders Procedure Date/time Status PARTIAL THROMBOPLASTIN TIME 12/26 08 Active PARTIAL THROMBOPLASTIN TIME 12/26 06 Complete PROTHROMBIN TIME 12/26 06 Complete CBC WITHOUT DIFFERENTIAL 12/26 06 Complete BASIC ELECTROLYTES PLUS BUN&CR 12/26 06 Complete PARTIAL THROMBOPLASTIN TIME 12/26 0100 Complete Lab Add-on Test 12/26 UNK Active Hemoccult 12/26 UNK Active ECHOCARDIOGRAM 12/26 UNK Active Consistent Carbohydrate 3 12/25 D Active Heparin Drip- AFIB/FLUTTER/PE/ 12/25 2343 Active Turn and Reposition 12/25 2342 Active Skin Integrity Protocol 12/25 2342 Active Skin/Pressure Ulcer Assess (Sk 12/25 2342 Active OXYGEN SETUP (GEN) 12/25 2100 Complete PARTIAL THROMBOPLASTIN TIME 12/25 1800 Complete Pathway - chart 12/25 1622 Active Teach/Educate 12/25 1430 Active Pain Treatment and Response 12/25 1430 Active Nutritional Intake, Monitor 12/25 1430 Active Isolation 12/25 1430 Active Intake & Output 12/25 1430 Active Patient Care Conference 12/25 1430 Active Activity/Ambulation 12/25 1430 Active Pathway - chart 12/25 1405 Active Patient Data 12/25 1405 Active Code Status 12/25 1405 Active Code Status 12/25 1401 Complete Patient Data 12/25 1224 Active Admit to inpatient 12/25 1154 Active Vital Signs 12/25 1154 Active Add-on Test (ER Only) 12/25 1137 Active PARTIAL THROMBOPLASTIN TIME 12/25 0920 Complete PROTHROMBIN TIME 12/25 0920 Complete OXYGEN SETUP CHG 12/25 UNK Complete OXYGEN 12/25 UNK Complete OXYGEN TRANSPORT 12/25 UNK Complete House Staff 12/25 UNK Active Telemetry/Shirt Turner 12/25 UNK Active FingerStick- Glucose 12/25 UNK Active Current Medications Sig/Mey Start time Last Medication Dose Stop Time Status Admin Daptomycin 500 MG 1500 12/26 1500 AC (Cubicin) 01/04 1529 Sodium Chloride 50 ML (Normal Saline 50ML Bag) Budesonide/ 2 PUF BID 12/26 1000 AC Formoterol Fumarate (SYMBICORT) Insulin Aspart 0 TIDAC 12/25 1700 AC (NovoLOG) Acetaminophen 650 MG Q4H PRN 12/25 1415 AC (Tylenol) Magnesium Hydroxide 30 ML DAILY PRN 12/25 1415 AC (Milk Of Magnesia) Sodium Phosphate 1 UNIT DAILY PRN 12/25 1415 AC Trazodone HCl 25 MG Q12H PRN 12/25 1415 AC (Desyrel) Laboratory Tests 12/26/16 0600: Anion Gap 9, Estimated GFR > 60, BUN/Creatinine Ratio 30.0 H, PT 13.4 H, INR 1.28 H, APTT 61 H, CBC w Diff NO MAN DIFF REQ, RBC 3.31 L, MCV 81.0, MCH 25.9 L, RDW 20.2 H, MPV 7.0 L, Gran % 68.9, Lymphocytes % 10.3 L, Monocytes % 13.8 H, Eosinophils % 6.3 H, Basophils % 0.7, Absolute Granulocytes 5.8, Absolute Lymphocytes 0.9 L, Absolute Monocytes 1.2 H, Absolute Eosinophils 0.5 , Absolute Basophils 0.1, PUBS MCHC 32.0 L 12/26/16 0105: APTT 58 H 12/25/16 1833: APTT [address] shows multiple PEs and old small dissection. Spoke with Dr. Cole and communicated findings of CT he is aware that pt is in hospital and is on board with care plan. (LORETTA MULLIGAN,BRENT) Initial ED EKG: NSR (LORETTA MULLIGAN,BRENT) Differential Diagnoses I considered the following diagnoses in my evaluation of the patient: Diagnostic Imaging: Viewed by Me: Radiology Read, CT Scan. Discussed w/RAD: Radiology Read, CT Scan. Radiology Impression: PATIENT: YOLANAD SUMMERS PRESENT AGE: 71 PATIENT ACCOUNT NO: [id number] : 46 LOCATION: [facility] ORDERING PHYSICIAN: BRENT BURGOS MD SERVICE DATE: 12/25/16 EXAM TYPE: CAT - CTA CHEST-PULMONARY EMBOLISM EXAMINATION: CT ANGIOGRAM OF THE CHEST WITH AND WITHOUT CONTRAST (CT PULMONARY ANGIOGRAM FOR PE) CLINICAL INFORMATION: Tachypnea. Hypoxia. Clinical concern regarding pulmonary embolus or pneumonia COMPARISON: Portions of a nonenhanced CT of the chest to TECHNIQUE: Prior to contrast administration, noncontrast localization images were obtained. Subsequently, multidetector volumetric imaging was performed from the thoracic inlet to below the diaphragms following the administration of 85 mL Optiray 350 intravenous contrast. No contrast reaction reported Sagittal, coronal, and MIP oblique sagittal reformatted images were obtained on the CT workstation, uploaded to PACS, and reviewed. Total exam dose-length product 487 mGy-cm FINDINGS: Digital business rules developer: Evidence of sternotomy. Some rotation to the left. Tortuous aorta. Elevation left hemidiaphragm with pleural-parenchymal density in the left lower chest. Gaseous distention in the stomach QUALITY OF STUDY/ CONTRAST BOLUS: Satisfactory. PULMONARY ARTERIES: There are multiple nonocclusive elongated pulmonary emboli within segmental branches of the right pulmonary artery in the mid and lower lung. There is no pulmonary embolus in the main pulmonary artery or the right or left main pulmonary arteries. THORACIC AORTA: There is ectasia of the thoracic aorta with atherosclerotic calcification and peripheral thrombus. The patient is post aortocoronary bypass grafting and likely grafting involving the left internal mammary artery. There is partial inclusion of a descending thoracic aortic dissection with dilation. This has been present previously. There is calcification in the region of the aortic valve. LUNG: There is consolidation in the left lower lobe. There is no abnormality of the trachea or mainstem bronchi. There is a wedge-shaped groundglass opacity in the periphery of the right lower lung in the region of the major fissure. This was not present previously there is some atelectasis at the right base posteromedially. There is some atelectasis in the inferior lingula. PLEURA: No significant pleural fluid. No pneumothorax MEDIASTINUM: There are no enlarged mediastinal or hilar lymph nodes. There is no pericardial fluid. No suspicious abnormality the esophagus. No evidence of septal bowing or right heart strain. CHEST WALL/AXILLA: There are no enlarged axillary lymph nodes. There is a right PICC present. OSSEOUS STRUCTURES: There is laxity or postoperative change in the upper left flank. Evidence of sternotomy. Degenerative changes in the right shoulder. Deformity in one of the posterior mid left ribs with altered trabecula. Correlate with any previous left thoracotomy. UPPER ABDOMEN: There is an upper abdominal aortic dissection. There is dilation of the celiac axis near the bifurcation. Partially included exophytic low attenuating mass upper most right kidney. Elevation of the left hemidiaphragm. No reflux of contrast into the hepatic veins to suggest elevated right heart pressures. IMPRESSION: There are multiple nonocclusive segmental pulmonary emboli in the right lung. No CT evidence of increased right heart pressure Wedge-shaped right lung opacity which could represent an area of infarct. Bibasilar pulmonary opacities which might include some pneumonia and/or atelectasis Probably no change in incompletely included thoracic aortic dissection which does not involve the aortic arch Previous coronary artery bypass grafting This critical result was discussed with Dr. Oshea at 11:30 on and it was ascertained that the content and urgency of the report was understood at the time of direct communication. VTE: positive DICTATED BY: JOSE F NAVARRETE MD DATE/TIME DICTATED:12/25/161112 SPORTS TEACHER:JANNA DATE/TIME TRANSCRIBED:12/25/161112 CONFIDENTIAL, DO NOT COPY WITHOUT APPROPRIATE AUTHORIZATION. <Electronically signed in Other Vendor System> SIGNED BY: JOSE F NAVARRETE MD 12/25/16 1136 CXR Impression: PATIENT: YOLANDA SUMMERS PRESENT AGE: 71 PATIENT ACCOUNT NO: [id number] : 46 LOCATION: [facility] ORDERING PHYSICIAN: BRENT BURGOS MD SERVICE DATE: 12/25/16 EXAM TYPE: RAD - XRY- PORTABLE CHEST XRAY EXAMINATION: XR PORTABLE CHEST CLINICAL INFORMATION: Tachypnea. Rule out CHF. COMPARISON: 11/29/2016 TECHNIQUE: AP portable upright view of the chest FINDINGS: Right-sided PICC line terminates in the SVC. Sternal wires are present anteriorly. Cardiac silhouette is enlarged, unchanged. There is elevation of the left hemidiaphragm which is unchanged from prior. Atelectasis is present in the lung bases bilaterally, left greater than right. Pulmonary vasculature is normal. Cephalad displacement of the humeral heads is evident bilaterally, consistent with chronic rotator cuff tears. Mild degenerative arthritis is present in the glenohumeral joints. IMPRESSION: 1. Right-sided PICC line terminates in the SVC. 2. Cardiomegaly. No pulmonary venous congestion or significant pulmonary edema. 3. Bibasilar atelectasis, left side greater than right. DICTATED BY: RUSS MINAYA MD DATE/TIME DICTATED:1012 SPORTS TEACHER:JANNA DATE/TIME TRANSCRIBED:12/25/161012 CONFIDENTIAL, DO NOT COPY WITHOUT APPROPRIATE AUTHORIZATION. <Electronically signed in Other Vendor System> SIGNED BY: RUSS MINAYA MD 12/25/16 1018 (JAZMÍN OSHEA MD) Departure Departure Condition: Stable Referrals: SLIM COLE MD (PCP/Family) Departure Forms: Customer Survey General Discharge Information Admission Note Spoke With: SLIM COLE MD Documentation of Exam: Documentation of any treatments & extenuating circumstances including Concerns Regarding Discharge (functional status, medication knowledge or non-compliance, living conditions, etc.) that warrant an admission rather than observation: [ multiple subsegmental PE] (LORETTA MULLIGAN,BRENT) Departure Time of Disposition: 1154 Disposition: STILL A PATIENT Clinical Impression Primary Impression: Pulmonary embolism Secondary Impressions: Hypoxia Admission Note Documentation of Exam: Documentation of any treatments & extenuating circumstances including Concerns Regarding Discharge (functional status, medication knowledge or non-compliance, living conditions, etc.) that warrant an admission rather than observation: [ REQUIRES IV HEPARINIZATION, POSSIBLE ECHOCARDIOGRAM, SUPPLEMENTAL OXYGEN FOR HYPOXIA, MONITOR FOR CLINICAL SIGNS/SX OF PNEUMONIA] Resident Co-Sign Statement Statement: ED Attending supervision documentation- [X] I saw and evaluated the patient. I have also reviewed all the pertinent lab results and diagnostic results. I agree with the findings and the plan of care as documented in the Resident's documentation. [X] I have reviewed the ED Record and agree with the Resident's documentation. [] Additions or exceptions (if any) to the Resident's note and plan are summarized below: [] (JAZMÍN OSHEA MD) Critical Care Note Critical Care Note Critical Care Time: non-applicable (BRENT BURGOS MD) summarized below: [] (ZULY MULLIGAN,JAZMÍN) Critical Care Note Critical Care Note Critical Care Time: non-applicable (BRENT BURGOS MD)
--- NOTE | 2016-12-25 10:18 | RADIOLOGY REPORT ---
EXAMINATION: XR PORTABLE CHEST CLINICAL INFORMATION: Tachypnea. Rule out CHF. COMPARISON: 11/29/2016 TECHNIQUE: AP portable upright view of the chest FINDINGS: Right-sided PICC line terminates in the SVC. Sternal wires are present anteriorly. Cardiac silhouette is enlarged, unchanged. There is elevation of the left hemidiaphragm which is unchanged from prior. Atelectasis is present in the lung bases bilaterally, left greater than right. Pulmonary vasculature is normal. Cephalad displacement of the humeral heads is evident bilaterally, consistent with chronic rotator cuff tears. Mild degenerative arthritis is present in the glenohumeral joints. IMPRESSION: 1. Right-sided PICC line terminates in the SVC. 2. Cardiomegaly. No pulmonary venous congestion or significant pulmonary edema. 3. Bibasilar atelectasis, left side greater than right.
--- NOTE | 2016-12-25 10:26 | NUR ---
FLUR SWAB AND THROAT CULTURE OBTAINED AND SENT TO LAB. PT O CT SCAN VIA STRETCHER AT THIS TIME.
--- NOTE | 2016-12-25 10:49 | NUR ---
PT BACK FROM CT SCAN
--- NOTE | 2016-12-25 11:36 | CT SCAN REPORT ---
EXAMINATION: CT ANGIOGRAM OF THE CHEST WITH AND WITHOUT CONTRAST (CT PULMONARY ANGIOGRAM FOR PE) CLINICAL INFORMATION: Tachypnea. Hypoxia. Clinical concern regarding pulmonary embolus or pneumonia COMPARISON: Portions of a nonenhanced CT of the chest to TECHNIQUE: Prior to contrast administration, noncontrast localization images were obtained. Subsequently, multidetector volumetric imaging was performed from the thoracic inlet to below the diaphragms following the administration of 85 mL Optiray 350 intravenous contrast. No contrast reaction reported Sagittal, coronal, and MIP oblique sagittal reformatted images were obtained on the CT workstation, uploaded to PACS, and reviewed. 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 Some rotation to the left. Tortuous aorta. Elevation left hemidiaphragm with pleural-parenchymal density in the left lower chest. Gaseous distention in the stomach QUALITY OF STUDY/CONTRAST BOLUS: Satisfactory. PULMONARY ARTERIES: There are multiple nonocclusive elongated pulmonary emboli within segmental branches of the right pulmonary artery in the mid and lower lung. There is no pulmonary embolus in the main pulmonary artery or the right or left main pulmonary arteries. THORACIC AORTA: There is ectasia of the thoracic aorta with atherosclerotic calcification and peripheral thrombus. The patient is post aortocoronary bypass grafting and likely grafting involving the left internal mammary artery. There is partial inclusion of a descending thoracic aortic dissection with dilation. This has been present previously. There is calcification in the region of the aortic valve. LUNG: There is consolidation in the left lower lobe. There is no abnormality of the trachea or mainstem bronchi. There is a wedge-shaped groundglass opacity in the periphery of the right lower lung in the region of the major fissure. This was not present previously there is some atelectasis at the right base posteromedially. There is some atelectasis in the inferior lingula. PLEURA: No significant pleural fluid. No pneumothorax MEDIASTINUM: There are no enlarged mediastinal or hilar lymph nodes. There is no pericardial fluid. No suspicious abnormality the esophagus. No evidence of septal bowing or right heart strain. CHEST WALL/AXILLA: There are no enlarged axillary lymph nodes. There is a right PICC present. OSSEOUS STRUCTURES: There is laxity or postoperative change in the upper left flank. Evidence of sternotomy. Degenerative changes in the right shoulder. Deformity in one of the posterior mid left ribs with altered trabecula. Correlate with any previous left thoracotomy. UPPER ABDOMEN: There is an upper abdominal aortic dissection. There is dilation of the celiac axis near the bifurcation. Partially included exophytic low attenuating mass upper most right kidney. Elevation of the left hemidiaphragm. No reflux of contrast into the hepatic veins to suggest elevated right heart pressures. IMPRESSION: There are multiple nonocclusive segmental pulmonary emboli in the right lung. No CT evidence of increased right heart pressure Wedge-shaped right lung opacity which could represent an area of infarct. Bibasilar pulmonary opacities which might include some pneumonia and/or atelectasis Probably no change in incompletely included thoracic aortic dissection which does not involve the aortic arch Previous coronary artery bypass grafting This critical result was discussed with Dr. Oshea at 11:30 on 12/25/16 and it was ascertained that the content and urgency of the report was understood at the time of direct communication. VTE: positive
--- NOTE | 2016-12-25 11:38 | NUR ---
AT BEDSIDE TO DISUCSS RESULTS AND PLAN OF CARE
--- NOTE | 2016-12-25 12:00 | NUR ---
PT GUIAC NEGATIVE PER MD ZULY
--- NOTE | 2016-12-25 12:09 | NUR ---
HEPARIN INFUSING PER ORDER AT THIS TIME. DOSE VERIFIED WITH FAZAL RN PRIOR TO ADMINISTRATION. HEPARIN INFUSING AT 26ML/HR. PT NSR ON MONITOR, SATS 93-95% ON 3L NASAL CANNULA. PT DENIES PAIN OR SOB. WILL CTM.
[2016-12-25 12:24] LABS: PT 12.7 SEC (9.4-12.5); PTT 31 SEC (25-37)
[2016-12-25] MEDS ORDERED: CUBICIN RF500 MG IV (12:40)
[2016-12-25] MEDS ORDERED: ASPIRIN EC81 M1 PO (12:41)
[2016-12-25] MEDS ORDERED: OXYCODONE HCL10 M2 PO (12:42)
[2016-12-25] MEDS ORDERED: BENAZEPRIL HCL10 MG PO (12:43)
[2016-12-25] MEDS ORDERED: MIRTAZAPINE15 M2 PO (12:44)
[2016-12-25] MEDS ORDERED: VITAMIN D250000 UNIT PO (12:44)
[2016-12-25] MEDS ORDERED: LIPITOR10 M1 PO (12:45)
[2016-12-25] MEDS ORDERED: CELEXA10 M1 PO (12:46)
[2016-12-25] MEDS ORDERED: IPRAT-ALBUT 0.5-3 ML INH (12:49)
[2016-12-25] MEDS ORDERED: NAMENDA XR14 M1 PO (12:51)
[2016-12-25] MEDS ORDERED: KEPPRA500 M1 PO (12:52)
[2016-12-25] MEDS ORDERED: ARICEPT5 M1 PO (12:52)
[2016-12-25] MEDS ORDERED: LASIX20 M1 PO (12:53)
[2016-12-25] MEDS ORDERED: OMEPRAZOLE20 M2 PO (12:53)
[2016-12-25] MEDS ORDERED: BACLOFEN10 M1 PO (12:54)
[2016-12-25] MEDS ORDERED: MULTI-DAY VITA1 EACH PO (12:56)
[2016-12-25] MEDS ORDERED: FLORASTOR250 M1 PO (12:57)
[2016-12-25] MEDS ORDERED: FISH OIL 1,001000 MG PO (12:57)
[2016-12-25] MEDS ORDERED: METFORMIN HCL500 M3 PO (12:58)
[2016-12-25] MEDS ORDERED: DULERA 100 MCG/13 GM INH (12:59)
[2016-12-25] MEDS ORDERED: [UNRECOGNIZED DRUG - OTHER] PO (13:01)
[2016-12-25] MEDS ORDERED: TUSSIN DM LIQU118 ML PO (13:02)
[2016-12-25] MEDS ORDERED: VITAMIN B-12100 MC1 PO (13:07)
[2016-12-25] MEDS ORDERED: METAMUCIL0.52 GM PO (13:08)
[2016-12-25] MEDS ORDERED: DITROPAN XL15 M1 PO (13:08)
[2016-12-25] MEDS ORDERED: POTASSIUM CHLO20 ME2 PO (13:09)
[2016-12-25] MEDS ORDERED: BISACODYL10 M1 RC (13:10)
[2016-12-25] MEDS ORDERED: MELATONIN5 M7 PO (13:10)
[2016-12-25] MEDS ORDERED: FLEET ENEMA133 ML RC (13:11)
[2016-12-25] MEDS ORDERED: Q-PAP325 M1 PO (13:12)
[2016-12-25] MEDS ORDERED: MILK OF MA400 MG/52 PO (13:12)
[2016-12-25] MEDS ORDERED: TRAZODONE HCL50 M1 PO (13:14)
--- NOTE | 2016-12-25 13:20 | NUR ---
PT SLEEPING AT THIS TIME, REG RESP RATE NOTED. HEPARIN CONTINUES TO INFUSE PER ORDER.
--- NOTE | 2016-12-25 13:55 | NUR ---
HOUSE STAFF AT BEDSIDE FOR EVAL.
--- NOTE | 2016-12-25 14:20 | NUR ---
PHARMACY CALLED FOR PT MEDS AT THIS TIME.
--- NOTE | 2016-12-25 14:54 | History & Physical ---
See Addendum General Information and HPI MD Statement: I have seen and personally examined YOLANDA SUMMERS and documented this H&P. The patient is a 71 year old M who presented with a patient stated chief complaint of difficulty breathing. Source of Information: patient Exam Limitations: no limitations History of Present Illness: 71-year-old male with past medical history of AAA repair, spinal stroke with paraplegia, indwelling suprapubic catheter, colostomy, non-healing sacral decubitus ulcer, diabetes mellitus, hyperlipidemia, coronary artery disease, hypertension, GERD, anxiety, depression was brought in by ambulance from [facility] care facility after being noted to be hypoxic. Relates that for the past week he said increasing cough, with low-grade temperatures. Denies chest pain, shortness of breath, palpitations, or lightheadedness. Due to his paralysis, he does not have any sensation below T4. He denies any urinary symptoms Allergies/Medications Allergies: Coded Allergies: NO KNOWN ALLERGIES (10/18/16) Home Med list Acetaminophen (Q-Pap) 325 MG TABLET 2 TAB PO Q4H PRN PAIN/TEMP>/100 (Reported ) Amino Acids/Protein Hydrolys (Pro-Stat Sugar Free Liquid) (Unknown Strength) LIQUID 30 ML PO BID SUPPLEMENT (Reported) Aspirin (Ecotrin*) 81 MG TABLET.DR 1 TAB PO DAILY HEART/BLOOD (Reported) Atorvastatin Calcium (Lipitor) 10 MG TABLET 1 TAB PO DAILY CHOLESTEROL ( Reported) Baclofen 10 MG TABLET 1 TAB PO DAILY UNKNOWN (Reported) Benazepril HCl 10 MG TABLET 1 TAB PO DAILY BP (Reported) Bisacodyl 10 MG SUPP.RECT 1 SUP RC PRN CONSTIPATION (Reported) Citalopram Hydrobromide (Celexa) 10 MG TABLET 1 TAB PO DAILY UNKNOWN ( Reported) Cyanocobalamin (Vitamin B-12) (Vitamin B-12) 100 MCG TABLET 1 TAB PO DAILY SUPPLEMENT (Reported) Daptomycin (Cubicin Rf) 500 MG VIAL 500 MG IV DAILY ANTIBIOTIC (Reported) Donepezil HCl (Aricept) 5 MG TABLET 1 TAB PO DAILY UNKNOWN (Reported) Ergocalciferol (Vitamin D2) (Vitamin D2) 50,000 UNIT CAPSULE 1 CAP PO Q30D SUPPLEMENT (Reported) Furosemide (Lasix) 20 MG TABLET 1 TAB PO EOD DIURETIC (Reported) Guaifenesin/Dextromethorphan (Tussin Dm Liquid) 100 MG-10 MG/5 ML LIQUID 10 ML PO TID COUGH/MUCUS (Reported) Ipratropium/Albuterol Sulfate (Iprat-Albut 0.5-3(2.5) MG/3 Ml) 0.5 MG-3 MG (2.5 MG BASE)/3 ML AMPUL.NEB 1 VIAL INH TID RESPIRATORY (Reported) Levetiracetam (Keppra) 500 MG TABLET 1 TAB PO QAM UNKNOWN (Reported) Magnesium Hydroxide (Milk Of Magnesia) 400 MG/5 ML ORAL.SUSP 30 ML PO DAILY PRN CONSTIPATION (Reported) Melatonin 5 MG TABLET 1 TAB PO QHS SLEEP (Reported) Memantine HCl (Namenda XR) 14 MG CAP.SPR.24 1 CAP PO DAILY UNKNOWN (Reported) Metformin HCl 500 MG TABLET 1 TAB PO BID DM (Reported) Mirtazapine 15 MG TABLET 0.5 TAB PO QHS UNKNOWN (Reported) Mometasone/Formoterol (Dulera 100 Mcg/5 Mcg Inhaler) 100 MCG-5 MCG/ACTUATION HFA.AER.AD 2 PUF INH BID RESPIRATORY (Reported) Multivitamin (Multi-Day Vitamins) 1 EACH TABLET 1 TAB PO DAILY SUPPLEMENT ( Reported) Na Phos,M-B/Na Phos,Di-Ba (Fleet Enema) 19 GRAM-7 GRAM/118 ML ENEMA 1 E RC DAILY PRN CONSTIPATION (Reported) [place]-3 Fatty Acids (Fish Oil) (Unknown Strength) CAPSULE (Unknown Dose) PO DAILY SUPPLEMENT (Reported) Omeprazole 20 MG CAPSULE.DR 1 CAP PO DAILY GI (Reported) Oxybutynin Chloride (Ditropan XL) 15 MG TAB.ER.24 2 TAB PO DAILY BLADDER ( Reported) Oxycodone HCl 10 MG TABLET 1 TAB PO Q8H PAIN (Reported) Potassium Chloride 20 MEQ TAB.ER.PRT 1 TAB PO QPM SUPPLEMENT (Reported) Psyllium Husk (Metamucil) (Unknown Strength) CAPSULE 1 CAP PO DAILY SUPPLEMENT (Reported) Saccharomyces Boulardii (Florastor) 250 MG CAPSULE 1 TAB PO QHS PROBIOTIC ( Reported) Trazodone HCl 50 MG TABLET 0.5 TAB PO Q12H PRN UNKNOWN (Reported) Compliance With Home Meds: GOOD Past History Travel History Traveled to [place] past 21 day No Medical History Neurological: PARAPLEGIA STATUS POST SPINAL SHOCK POSTOP EENT: NONE Cardiovascular: CAD, hypertension, hyperlipidemia, ABDOMINAL ANEURYSM Respiratory: asthma Gastrointestinal: GERD Hepatic: NONE Renal: neurogenic bladder, UTI Musculoskeletal: decubitis ulcer (OSTEOMYELITIS) Psychiatric: anxiety, depression Endocrine: DIABETES TYPE 2 Blood Disorders: NONE Cancer(s): prostate cancer AQUATIC INSTRUCTOR/Reproductive: NONE History of MRSA: Yes History of VRE: Yes History of CDIFF: No Influenza Vaccine: 09/04/16 Surgical History Surgical History: CABG, AAA repair x2 once 2002, and 2013 status post diverting colostomy status post suprapubic cystostomy Past Family/Social History Family History Relations & Conditions if any MOTHER FH: coronary artery disease FH: diabetes mellitus BROTHER FH: diabetes mellitus SISTER Psychosocial History Services at Home: Home Health Aide, Nursing Primary Language: Ukrainian Smoking Status: Never Smoked ETOH Use: denies use Illicit Drug Use: denies illicit drug use Functional Ability ADLs Independent: eating. Needs Assist: dressing, toileting, bathing. Ambulation: non-ambulatory IADLs Needs Assist: shopping, housework, finances, food prep, telephone, transportation, medication admin. Review of Systems Review of Systems Constitutional: Reports: fever. EENTM: Reports: no symptoms. Cardiovascular: Denies: chest pain, palpitations, peripheral edema. Respiratory: Reports: cough, short of breath, sputum production. GI: Reports: no symptoms. Genitourinary: Reports: no symptoms. Musculoskeletal: Reports: see HPI. Neurological/Psychological: Reports: unable to move lower ext. Hematologic/Endocrine: Reports: no symptoms. Immunologic/Allergic: Reports: no symptoms. All Other Systems: Reviewed and Negative Exam & Diagnostic Data Last 24 Hrs of Vital Signs/I&O Vital Signs Date Time Temp Pulse Resp B/P Pulse O2 O2 Flow FiO2 Ox Delivery Rate 12/25 1440 94 Nasal 3.0L Cannula 12/25 1147 98.3 83 20 122/58 92 Nasal 3.0L Cannula 12/25 0905 93 Nasal 3.0L Cannula 12/25 0857 97.6 98 20 130/64 81 Room Air Intake & Output 12/25 1600 12/25 0800 12/25 0000 Intake Total Output Total Balance Patient 172 lb Weight Physical Exam General Appearance Alert, Oriented X3, Cooperative, No Acute Distress Skin decubitus ulcer IV HEENT Atraumatic, PERRLA, EOMI, Mucous Membr. moist/pink Neck Supple, No JVD Lymphatic Cervical nl Cardiovascular Regular Rate, Normal S1, Normal S2, No Murmurs Lungs diffuse crackles b/l Abdomen Normal Bowel Sounds, Soft, No Tenderness, colostomy bag in place Neurological Normal Speech Extremities No Clubbing (picc in place rt arm), No Edema, Normal Pulses Diagnostic Data EKG Results SR 65, QTc 421 CXR Results 1. Right-sided PICC line terminates in the SVC. 2. Cardiomegaly. No pulmonary venous congestion or significant pulmonary edema. 3. Bibasilar atelectasis, left side greater than right. Other Results There are multiple nonocclusive segmental pulmonary emboli in the right lung. No CT evidence of increased right heart pressure Wedge-shaped right lung opacity which could represent an area of infarct. Bibasilar pulmonary opacities which might include some pneumonia and/or atelectasis Probably no change in incompletely included thoracic aortic dissection which does not involve the aortic arch Previous coronary artery bypass grafting Assessment/Plan Assessment: 71-year-old male with past medical history of AAA repair, spinal stroke with paraplegia, indwelling suprapubic catheter, colostomy, non-healing sacral decubitus ulcer, diabetes mellitus, hyperlipidemia, coronary artery disease, hypertension, GERD, anxiety, depression was brought in by ambulance from extended care facility after being noted to be hypoxic. Relates that for the past week he said increasing cough, with low-grade temperatures. Denies chest pain, shortness of breath, palpitations, or lightheadedness. Due to his paralysis, he does not have any sensation below T4. He was found on CTA to have multiple nonocclusive segmental pulmonary emboli in the right lung. Pulmonary Embolus Admit to Telemetry He received a heparin bolus in ER we will continue IV heparin, dose to PE protocol check PTT, CBC, platelets Will order echocardiogram keep oxygen saturations > 92% will check lower usg of lower limbs ? PNA on CTA monitor oxygen saturations monitor for febrile episodes, BC, UC pending monitor white count Decubitus Ulcer OR culture positve for vancomycin-resistant enterococcus called nursing facility, recieved daptomycin today. LOG does not support this continue daptomycin as recommended by ID, course to complete 01/04/17 500mg IV through picc that is in place line changed today, 12/25/16 DM monitor accuchecks will place on novolog ss h/o seizures continue keppra home dose HTN Monitor BP, continue home medications HLD continue statin Bipolar continue psychiatry medications DNR/I As Ranked By This Provider Problem List: 1. Hypertension 2. Hyperlipidemia 3. Diabetes 4. Decubitus ulcer 5. Osteomyelitis 6. Hemiplegia 7. Pulmonary embolism Core Measures/Miscellaneous Acute Coronary Syndrome ACS Diagnosis: No Cerebrovascular Accident CVA/TIA Diagnosis: No Congestive Heart Failure CHF Diagnosis: No Venous Thromboembolism VTE Risk Factors: Age > 40 No [facility] VTE prophylaxis d/t: No contraindications No VTE Pharm Prophylaxis d/t: No contraindications VTE Diagnosis: Yes VTE Type: Pulmonary Embolism VTE Confirmed by (Test): CT CHEST ANGIOGRAM Severe Sepsis Severe Sepsis Present: No Septic Shock Septic Shock Present: No Miscellaneous Documentation Attending Case Discussed With: SLIM COLE MD Primary Care Physician: SLIM COLE MD Patient sees these Specialists Infectious Disease Level of Patient Care: Telemetry
--- NOTE | 2016-12-25 15:14 | NUR ---
STILL AWAITING MEDS FROM PHARMACY
--- NOTE | 2016-12-25 16:02 | NUR ---
PT MEDICATED PER EMAR AT THIS TIME. PT STATING HE ALREADY GOT HIS DOSE OF DAPTOMYCIN. SNF CALLED AND VERIFIED THAT PT SIS RECIEVE DOSE THIS AM. HOUSE STAFF AWARE.
[2016-12-25 16:06] VITALS: BP 146/73
[2016-12-25 18:49] LABS: PTT 49 SEC (25-37)
--- NOTE | 2016-12-25 18:55 | ULTRASOUND REPORT ---
EXAMINATION: US TRIPLEX LOWER EXTREMITY, BILATERAL CLINICAL INFORMATION: Pulmonary embolism. COMPARISON: Lower extremity ultrasound 08/03/2013 TECHNIQUE: Color-flow triplex imaging with spectral analysis and compression Doppler were performed on the bilateral lower extremities. FINDINGS: Respiratory variation, normal compression and augmented flow are noted throughout the bilateral lower extremities. The visualized common femoral vein, superficial femoral vein, profunda femoral vein, popliteal vein show no evidence of deep venous thrombosis. There is limited evaluation of the calf veins. There is no Amaya's cyst. 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 This is similar or slightly larger than the study of 08/03/2013. IMPRESSION: Normal triplex scan without evidence of deep venous thrombosis involving the bilateral lower extremities. Limited evaluation of the calf veins on this study. 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
--- NOTE | 2016-12-25 18:59 | NUR ---
Emergency Dept UC Admit Note: To be admitted to [facility] by DR COLE with PULMONARY EMBOLISM as the diagnosis, to TELE, ROOM 173-01 location. Nursing Machine Silk Screen Printer and admitting notified 12/25/16 at 1237
--- NOTE | 2016-12-25 19:15 | NUR ---
REPORT GIVEN TO FLOOR. HEPARIN DRIP INCREASED TO 18.7UNITS/KG/HR, HEPARIN INFUSING AT 29.2ML/HR AT THIS TIME.
--- NOTE | 2016-12-25 19:37 | NUR ---
AWAITING RETURN CALL FROM RECEIVING NURSE ON TELEMETRY TO STATE THAT ROOM IS CLEAN AND READY FOR PT.
--- NOTE | 2016-12-25 19:54 | NUR ---
ROOM ON TELEMETRY IS CLEAN FOR PT. DISTRIBUTION CALLED FOR TRANSPORT.
--- NOTE | 2016-12-25 20:21 | NUR ---
PT TRANSPORTED TO FLOOR
[2016-12-25 20:55] VITALS: BP 118/58
--- NOTE | 2016-12-25 22:00 | NUR ---
NURSING NOTE; PT USES WOUND VAC DSG TO COCCYX WOUND AT [facility]. WOUND VAC DRESSING REMOVED. NS WET->DRY DSG PLACED. SIZEWISE MATTRESS ORDERED. WOUND CARE EVAL PLACED.
[2016-12-26 00:38] VITALS: BP 122/57
[2016-12-26 01:39] LABS: PTT 58 SEC (25-37)
[2016-12-26 06:22] LABS: ABSOLUTE BASOPHIL COUNT 0.1 /CUMM (0.0-0.2); ABSOLUTE EOSINOPHIL COUNT 0.5 /CUMM (0.0-0.7); ABSOLUTE GRANULOCYTE CT 5.8 /CUMM (1.4-6.5); ABSOLUTE LYMPH COUNT 0.9 /CUMM (1.2-3.4); ABSOLUTE MONOCYTE COUNT 1.2 /CUMM (0.10-0.60); BASOPHIL % 0.7 % (0.0-2.0); EOSINOPHIL % 6.3 % (0-5); GRANULOCYTE % 68.9 % (42.2-75.2); HEMATOCRIT 26.8 % (42-52); MEAN CORPUSCULAR HGB 25.9 PG (27.0-31.0); PLATELET COUNT 504 /CUMM (130-400); RBC DISTRIBUTION WIDTH 20.2 % (11.5-14.5); RED BLOOD CELL CT 3.31 /CUMM (4.70-6.10); WHITE BLOOD CELL COUNT 8.4 /CUMM (4.8-10.8)
[2016-12-26 06:27] LABS: PT 13.4 SEC (9.4-12.5)
[2016-12-26 08:00] VITALS: BP 120/58
--- NOTE | 2016-12-26 09:03 | Admission Certification ---
Admission Certification Certification Statement - As attending physician, I certify that at the time of - admission, based on clinical presentation, severity of - symptoms, need for further diagnostic testing and - therapeutic interventions, and risk of adverse outcomes - without in-hospital treatment, in my clinical assessment, - this patient requires an acute hospital stay for a minimum - of two nights or longer. I have also considered psychsocial - factors such as support system, advanced age, financial - issues, cognitive issues, and failed out-patient treatments, - past re-admission history, safety of patient, and lack of - compliance as applicable. Specific rationale supporting this admission is: PE and pulmonary infarction
--- NOTE | 2016-12-26 09:07 | PN- Att Addend ---
Attending Addendum Attending Brief Note Patient denies any complaints including chest pain or shortness of breath. He is on 3 L of oxygen. General Appearance: Alert, No Acute Distress Skin: Grossly normal HEENT: PEERLA Neck: Supple, No JVD Cardiovascular: Regular Rate, Normal S1, Normal S2, No Murmurs Lungs: Occasional crackles right lung Abdomen: Normal Bowel Sounds, Soft, No Tenderness Neurological: Normal Speech, Strength at 5/5 X4 Ext, Cranial Nerves 3-12 NL, Reflexes 2+ Extremities: No Clubbing, No Cyanosis, No Edema Vascular: Normal Pulses Assessment 71-year-old history of paraplegia secondary to spinal stroke, indwelling catheter, chronic stage IV decubitus with osteomyelitis currently on IV antibiotics, diabetes presented to the ER with shortness of breath. CTA suggested multiple right lung PE with possible pulmonary infarction. Patient is hemodynamically stable other than requiring high flow oxygen. Ultrasound lower extremity is negative for DVT. Currently is on heparin drip awaiting for an echocardiogram. Will get pulmonary evaluation and also transition to an appropriate long-term anticoagulant. Plan Continue heparin drip Echocardiogram Pulmonary consult Continue IV antibiotics Continue other home medications Insulin sliding scale and Accu-Cheks Current Medications Sig/Mey Start time Last Medication Dose Route Stop Time Status Admin Acetaminophen 650 MG Q4H PRN 12/25 1415 AC PO Aspirin Buffered 81 MG DAILY 12/25 1410 AC 12/25 PO 1601 Atorvastatin Calcium 10 MG DAILY 12/25 1411 AC 12/25 PO 1601 Baclofen 10 MG DAILY 12/25 1413 AC 12/25 PO 1601 Citalopram 10 MG DAILY 12/25 1411 AC 12/25 Hydrobromide PO 1601 Cyanocobalamin 1,000 MCG DAILY 12/26 1000 AC PO Daptomycin 500 MG 1500 12/26 1500 AC Sodium Chloride 50 ML IV 01/04 1529 Daptomycin 500 MG 1500 12/25 1500 DC Sodium Chloride 50 ML IV 01/04 1529 Donepezil HCl 5 MG DAILY 12/25 1412 AC 12/25 PO 1601 Fish Oil 1,050 MG DAILY 12/25 1413 AC 12/25 PO 1601 Furosemide 20 MG Q48H 12/26 1000 AC PO Heparin Sodium 3,120 UNIT BOLUS ONE 12/26 0154 DC 12/26 (Porcine) IV 12/26 0155 0200 Heparin Sodium 0 .STK-MED ONE 12/25 1916 DC (Porcine) .ROUTE Heparin Sodium 0 .STK-MED ONE 12/25 1202 DC (Porcine) .ROUTE Heparin Sodium 5,000 UNIT ONCE ONE 12/25 1145 DC 12/25 (Porcine) IV 12/25 1146 1211 Heparin Sodium 25,000 UNIT Q24H 12/25 1145 AC 12/26 (Porcine) IV 0601 Sodium Chloride 500 ML Insulin Aspart 0 TIDAC 12/25 1700 AC SC Ipratropium [place] 2.5 ML ONCE ONE 12/25 1415 DC 12/25 INH 12/25 1416 1530 Levetiracetam 500 MG QAM 12/25 1413 AC 12/25 PO 1601 Lisinopril 10 MG DAILY 12/25 1411 AC 12/25 PO 1601 Magnesium Hydroxide 30 ML DAILY PRN 12/25 1415 AC PO Melatonin 5 MG AT BEDTIME 12/25 2200 AC 12/25 PO 2206 Memantine 15 MG DAILY 12/26 1000 AC PO Mirtazapine 7.5 MG AT BEDTIME 12/25 2200 AC 12/25 PO 2206 Multivitamins 1 TAB DAILY 12/25 1413 AC 12/25 Therapeutic PO 1601 Omeprazole 20 MG DAILY 12/25 1413 AC 12/25 PO 1601 Oxybutynin Chloride 5 MG TID 12/25 1600 AC 12/25 PO 2206 Oxycodone HCl 10 MG Q8 12/25 2200 AC 12/26 PO 0600 Protein 2 PKT BID 12/25 2200 AC 12/25 PO 2206 Psyllium Hydrophilic 1 PAC DAILY 12/26 1000 AC Mucilloid PO Sodium Phosphate 1 UNIT DAILY PRN 12/25 1415 AC OR Trazodone HCl 25 MG Q12H PRN 12/25 1415 AC PO Laboratory Tests 12/26 12/26 12/25 0600 0105 1833 Chemistry Sodium (137 - 145 mmol/L) 137 Potassium (3.5 - 5.1 mmol/L) 4.4 Chloride (98 - 107 mmol/L) 100 Carbon Dioxide (22 - 30 mmol/L) 28 Anion Gap (5 - 16) 9 BUN (9 - 20 mg/dL) 24 H Creatinine (0.7 - 1.2 mg/dL) 0.8 Estimated GFR (>60 ml/min) > 60 BUN/Creatinine Ratio (7 - 25 %) 30.0 H Coagulation PT (9.4 - 12.5 SEC) 13.4 H INR (0.90 - 1.17) 1.28 H APTT (25 - 37 SEC) 58 H 49 H Hematology CBC w Diff NO MAN DIFF REQ WBC (4.8 - 10.8 /CUMM) 8.4 RBC (4.70 - 6.10 /CUMM) 3.31 L Hgb (14.0 - 18.0 G/DL) 8.6 L Hct (42 - 52 %) 26.8 L MCV (80.0 - 94.0 FL) 81.0 MCH (27.0 - 31.0 PG) 25.9 L RDW (11.5 - 14.5 %) 20.2 H Plt Count (130 - 400 /CUMM) 504 H MPV (7.4 - 10.4 FL) 7.0 L Gran % (42.2 - 75.2 %) 68.9 Lymphocytes % (20.5 - 51.1 %) 10.3 L Monocytes % (1.7 - 9.3 %) 13.8 H Eosinophils % (0 - 5 %) 6.3 H Basophils % (0.0 - 2.0 %) 0.7 Absolute Granulocytes (1.4 - 6.5 /CUMM) 5.8 Absolute Lymphocytes (1.2 - 3.4 /CUMM) 0.9 L Absolute Monocytes (0.10 - 0.60 /CUMM) 1.2 H Absolute Eosinophils (0.0 - 0.7 /CUMM) 0.5 Absolute Basophils (0.0 - 0.2 /CUMM) 0.1 PUBS MCHC (33.0 - 37.0 G/DL) 32.0 L / 03/07 0937 0920 Chemistry Sodium (137 - 145 mmol/L) 139 Potassium (3.5 - 5.1 mmol/L) 4.7 Chloride (98 - 107 mmol/L) 101 Carbon Dioxide (22 - 30 mmol/L) 29 Anion Gap (5 - 16) 10 BUN (9 - 20 mg/dL) 21 H Creatinine (0.7 - 1.2 mg/dL) 0.7 Estimated GFR (>60 ml/min) > 60 BUN/Creatinine Ratio (7 - 25 %) 30.0 H Glucose (65 - 99 mg/dL) 89 Lactic Acid (0.7 - 2.1 mmol/L) 0.8 Calcium (8.4 - 10.2 mg/dL) 9.9 Total Bilirubin (0.2 - 1.3 mg/dL) 0.4 AST (17 - 59 U/L) 24 ALT (21 - 72 U/L) 28 Alkaline Phosphatase (< 127 U/L) 105 Troponin I (<0.11 ng/ml) < 0.01 Total Protein (6.3 - 8.2 g/dL) 7.1 Albumin (3.5 - 5.0 g/dL) 3.1 L Globulin (1.9 - 4.2 gm/dL) 4.0 Albumin/Globulin Ratio (1.1 - 2.2 %) 0.8 L Lipase (23 - 300 U/L) 30 Coagulation PT (9.4 - 12.5 SEC) 12.7 H INR (0.90 - 1.17) 1.21 H APTT (25 - 37 SEC) 31 Hematology CBC w Diff NO MAN DIFF REQ WBC (4.8 - 10.8 /CUMM) 7.3 RBC (4.70 - 6.10 /CUMM) 3.44 L Hgb (14.0 - 18.0 G/DL) 8.9 L Hct (42 - 52 %) 27.9 L MCV (80.0 - 94.0 FL) 80.9 MCH (27.0 - 31.0 PG) 25.8 L RDW (11.5 - 14.5 %) 20.0 H Plt Count (130 - 400 /CUMM) 522 H MPV (7.4 - 10.4 FL) 7.2 L Gran % (42.2 - 75.2 %) 64.6 Lymphocytes % (20.5 - 51.1 %) 13.5 L Monocytes % (1.7 - 9.3 %) 14.1 H Eosinophils % (0 - 5 %) 7.5 H Basophils % (0.0 - 2.0 %) 0.3 Absolute Granulocytes (1.4 - 6.5 /CUMM) 4.7 Absolute Lymphocytes (1.2 - 3.4 /CUMM) 1.0 L Absolute Monocytes (0.10 - 0.60 /CUMM) 1.0 H Absolute Eosinophils (0.0 - 0.7 /CUMM) 0.5 Absolute Basophils (0.0 - 0.2 /CUMM) 0 PUBS MCHC (33.0 - 37.0 G/DL) 31.8 L Urines Urine Color (YEL,AMB,STR) YEL Urine Clarity (CLEAR) HAZY H Urine pH (5.0 - 8.0) 6.0 Ur Specific [place] (1.001 - 1.035) 1.020 Urine Protein (NEG,<30 MG/DL) 30 H Urine Ketones (NEG) NEG Urine Nitrite (NEG) POS H Urine Bilirubin (NEG) NEG Urine Urobilinogen (0.1 - 1.0 EU/dl) 0.2 Ur Leukocyte Esterase (NEG) LARGE H Ur Microscopic SEDIMENT EXAMINED Urine RBC (0 - 5 /HPF) RARE Urine WBC (0 - 2 /HPF) PACKD H Urine Hemoglobin (NEG) SMALL H Urine Glucose (N MG/DL) NEG Vital Signs Date Time Temp Pulse Resp B/P Pulse O2 O2 Flow FiO2 Ox Delivery Rate 12/26 0800 98.3 77 20 120/58 91 Nasal 3.0L Cannula 12/26 0038 97.6 81 20 122/57 92 12/26 0000 Nasal 3.0L Cannula 12/25 2055 97.5 83 20 118/58 91 Nasal 3.0L Cannula 12/25 1932 98.8 90 18 120/58 95 Nasal 3.0L Cannula 12/25 1608 93 Nasal 3.0L Cannula 12/25 1606 98.8 78 18 146/73 93 Nasal 3.0L Cannula 12/25 1601 98.8 91 18 143/67 12/25 1601 98.8 91 18 143/67 95 Nasal 3.0L Cannula 12/25 1541 Nasal 3.0L Cannula 12/25 1440 94 Nasal 3.0L Cannula 12/25 1147 98.3 83 20 122/58 92 Nasal 3.0L Cannula
--- NOTE | 2016-12-26 09:39 | PN- Housestaff ---
Subjective Follow-up For: Pulmonary Embolism Complaints: no complaints Tele-Events Since Last Visit: SR [id number] Subjective: Seen and examined at bedside. Reports feeling better today, still short of breath, with minimal cough. Slept well overnight. No other complaints. Review of Systems Constitutional: Reports: see HPI. Objective Last 24 Hrs of Vital Signs/I&O Vital Signs Date Time Temp Pulse Resp B/P Pulse O2 O2 Flow FiO2 Ox Delivery Rate 12/27 799 98.3 77 20 120/58 91 Nasal 3.0L Cannula 12/26 0038 97.6 81 20 122/57 92 03/ 0000 Nasal 3.0L Cannula 12/25 2055 97.5 83 20 118/58 91 Nasal 3.0L Cannula 12/25 1932 98.8 90 18 120/58 95 Nasal 3.0L Cannula 12/25 1608 93 Nasal 3.0L Cannula 12/25 1606 98.8 78 18 146/73 93 Nasal 3.0L Cannula 12/25 1601 98.8 91 18 143/67 12/25 1601 98.8 91 18 143/67 95 Nasal 3.0L Cannula 12/25 1541 Nasal 3.0L Cannula 12/25 1440 94 Nasal 3.0L Cannula 12/25 1147 98.3 83 20 122/58 92 Nasal 3.0L Cannula Intake & Output 12/26 1600 12/26 0800 12/26 0000 Intake Total 249.1 200 Output Total 26 250 Balance 223.1 -50 Intake, IV 249.1 Intake, Oral 200 Number 1 Bowel Movements Output, Stool 1 Output, Urine 25 250 Physical Exam General Appearance: Alert, Oriented X3, Cooperative, No Acute Distress Skin: decubitus uler IV HEENT: Atraumatic, PERRLA, EOMI, Mucous Membr. moist/pink Neck: Supple, No JVD Cardiovascular: Regular Rate, Normal S1, Normal S2, No Murmurs Lungs: minimal crackles b/l Abdomen: Normal Bowel Sounds, Soft, No Tenderness, colostomy bag in place Neurological: Normal Speech Extremities: No Edema, Normal Pulses, picc in rt arm Current Medications: Current Medications Sig/Mey Start time Last Medication Dose Route Stop Time Status Admin Acetaminophen 650 MG Q4H PRN 12/25 1415 AC PO Aspirin Buffered 81 MG DAILY 12/25 141 AC 12/25 PO 1601 Atorvastatin Calcium 10 MG DAILY 12/25 1411 AC 12/25 PO 1601 Baclofen 10 MG DAILY 12/25 1413 AC 12/25 PO 1601 Citalopram 10 MG DAILY 12/25 1411 AC 12/25 Hydrobromide PO 1601 Cyanocobalamin 1,000 MCG DAILY 12/26 1000 AC PO Daptomycin 500 MG 1500 12/26 1500 AC Sodium Chloride 50 ML IV 01/04 1529 Daptomycin 500 MG 1500 12/25 1500 DC Sodium Chloride 50 ML IV 01/04 1529 Donepezil HCl 5 MG DAILY 12/25 1412 AC 12/25 PO 1601 Fish Oil 1,050 MG DAILY 12/25 1413 AC 12/25 PO 1601 Furosemide 20 MG Q48H 12/26 1000 AC PO Heparin Sodium 3,120 UNIT BOLUS ONE 12/26 0154 DC 12/26 (Porcine) IV 12/26 0155 0200 Heparin Sodium 0 .STK-MED ONE 12/25 1916 DC (Porcine) .ROUTE Heparin Sodium 0 .STK-MED ONE 12/25 1202 DC (Porcine) .ROUTE Heparin Sodium 5,000 UNIT ONCE ONE 12/25 1145 DC 12/25 (Porcine) IV 12/25 1146 1211 Heparin Sodium 25,000 UNIT Q24H 12/25 1145 AC 12/26 (Porcine) IV 0601 Sodium Chloride 500 ML Insulin Aspart 0 TIDAC 12/25 1700 AC SC Ipratropium [place] 2.5 ML ONCE ONE 12/25 1415 DC 07 INH 12/25 1416 1530 Levetiracetam 500 MG QAM 12/25 1413 AC 12/25 PO 1601 Lisinopril 10 MG DAILY 12/25 1411 AC 12/25 PO 1601 Magnesium Hydroxide 30 ML DAILY PRN 12/25 1415 AC PO Melatonin 5 MG AT BEDTIME 12/25 2200 AC 12/25 PO 2206 Memantine 15 MG DAILY 12/26 1000 AC PO Mirtazapine 7.5 MG AT BEDTIME 12/25 2200 AC 12/25 PO 2206 Multivitamins 1 TAB DAILY 12/25 1413 AC 12/25 Therapeutic PO 1601 Omeprazole 20 MG DAILY 12/25 1413 AC 12/25 PO 1601 Oxybutynin Chloride 5 MG TID 12/25 1600 AC 12/25 PO 2206 Oxycodone HCl 10 MG Q8 12/25 2200 AC 12/26 PO 0600 Protein 2 PKT BID 12/25 2200 AC 12/25 PO 2206 Psyllium Hydrophilic 1 PAC DAILY 12/26 1000 AC Mucilloid PO Sodium Phosphate 1 UNIT DAILY PRN 12/25 1415 AC MS Trazodone HCl 25 MG Q12H PRN 12/25 1415 AC PO Last 24 Hrs of Lab/Perfecto Results Last 24 Hrs of Labs/Mics: Laboratory Tests 12/26/16 0600: Anion Gap 9, Estimated GFR > 60, BUN/Creatinine Ratio 30.0 H, PT 13.4 H, INR 1.28 H, CBC w Diff NO MAN DIFF REQ, RBC 3.31 L, MCV 81.0, MCH 25.9 L, RDW 20.2 H, MPV 7.0 L, Gran % 68.9, Lymphocytes % 10.3 L, Monocytes % 13.8 H, Eosinophils % 6.3 H, Basophils % 0.7, Absolute Granulocytes 5.8, Absolute Lymphocytes 0.9 L, Absolute Monocytes 1.2 H, Absolute Eosinophils 0.5, Absolute Basophils 0.1, PUBS MCHC 32.0 L 12/26/16 0105: APTT 58 H 12/25/16 1833: APTT 49 H 12/25/16 0937: Urine Color YEL, Urine Clarity HAZY H, Urine pH 6.0, Ur Specific [place] 1.020, Urine Protein 30 H, Urine Ketones NEG, Urine Nitrite POS H, Urine Bilirubin NEG, Urine Urobilinogen 0.2, Ur Leukocyte Esterase LARGE H, Ur Microscopic SEDIMENT EXAMINED, Urine RBC RARE, Urine WBC PACKD H, Urine Hemoglobin SMALL H , Urine Glucose NEG Microbiology 12/25 1024 NASOPHARYN: Influenza Virus A & B Rapid Smear - COMP 12/25 1000 BLOOD: Blood Culture - RECD 12/25 936 URINE ROUT: Streptococcus pneumoniae Antigen (M - COMP 12/25 936 URINE ROUT: Urine Culture - RECD Assessment/Plan Assessment: 71-year-old male with past medical history of AAA repair, spinal stroke with paraplegia, indwelling suprapubic catheter, colostomy, non-healing sacral decubitus ulcer, diabetes mellitus, hyperlipidemia, coronary artery disease, hypertension, GERD, anxiety, depression was brought in by ambulance from extended care facility after being noted to be hypoxic. Relates that for the past week he said increasing cough, with low-grade temperatures. Denies chest pain, shortness of breath, palpitations, or lightheadedness. Due to his paralysis, he does not have any sensation below T4. He was found on CTA to have multiple nonocclusive segmental pulmonary emboli in the right lung, along with wedge shaped lung opacity? infarct. Pulmonary Embolus Admit to Telemetry He received a heparin bolus in ER we will continue IV heparin, dose to PE protocol check PTT, CBC, platelets Echocardiogram pending keep oxygen saturations > 92% USG of lower limbs negative for thrombus we will guaic stools, we will need to switch to appropriate senior living anticoagulation. Will have pulmonology evaluate ? infarct Decubitus Ulcer OR culture positve for vancomycin-resistant enterococcus called nursing facility, recieved daptomycin today. LOG does not support this continue daptomycin as recommended by ID, course to complete 01/04/17 500mg IV through picc that is in place DM monitor accuchecks will place on novolog ss h/o seizures continue keppra home dose HTN Monitor BP, continue home medications HLD continue statin Bipolar continue psychiatry medications DNR/I Problem List: 1. Pulmonary embolism 2. Hypoxia 3. Osteomyelitis 4. Paraplegia 5. Decubitus ulcer 6. Diabetes 7. Pneumonia 8. Hypertension 9. Hyperlipidemia Pain Ratin Pain Location: no pain Pain Goal: Remain pain free Pain Plan: continue current regimen Tomorrow's Labs & Rationales: cbc coags Consulting Request: Consulting Specialty: Pulmonary Disease
[2016-12-26 09:46] LABS: PTT 61 SEC (25-37)
--- NOTE | 2016-12-26 14:19 | Cons- Pulmonary ---
General Information and HPI Consulting Request Date of Consult: 12/26/16 Requested By: med team History of Present Illness: 71-year-old male with past medical history of AAA repair, spinal stroke with paraplegia, indwelling suprapubic catheter, colostomy, non-healing sacral decubitus ulcer, diabetes mellitus, hyperlipidemia, coronary artery disease, hypertension, GERD, anxiety, depression was brought in by ambulance from [facility] care facility after being noted to be hypoxic. Relates that for the past week he said increasing cough, with low-grade temperatures. Denies chest pain, shortness of breath, palpitations, or lightheadedness. Due to his paralysis, he does not have any sensation below T4. He denies any urinary symptoms Review of Systems Constitutional: Reports: fever. EENTM: Reports: no symptoms. Cardiovascular: Denies: chest pain, palpitations, peripheral edema. Respiratory: Reports: cough, short of breath, sputum production. GI: Reports: no symptoms. Genitourinary: Reports: no symptoms. Musculoskeletal: Reports: see HPI. Neurological/Psychological: Reports: unable to move lower ext. Hematologic/Endocrine: Reports: no symptoms. Immunologic/Allergic: Reports: no symptoms. All Other Systems: Reviewed and Negative Allergies/Medications Allergies: Coded Allergies: NO KNOWN ALLERGIES (10/18/16) Home Med List: Acetaminophen (Q-Pap) 325 MG TABLET 2 TAB PO Q4H PRN PAIN/TEMP>/100 (Reported ) Amino Acids/Protein Hydrolys (Pro-Stat Sugar Free Liquid) (Unknown Strength) LIQUID 30 ML PO BID SUPPLEMENT (Reported) Aspirin (Ecotrin*) 81 MG TABLET.DR 1 TAB PO DAILY HEART/BLOOD (Reported) Atorvastatin Calcium (Lipitor) 10 MG TABLET 1 TAB PO DAILY CHOLESTEROL ( Reported) Baclofen 10 MG TABLET 1 TAB PO DAILY UNKNOWN (Reported) Benazepril HCl 10 MG TABLET 1 TAB PO DAILY BP (Reported) Bisacodyl 10 MG SUPP.RECT 1 SUP RC PRN CONSTIPATION (Reported) Citalopram Hydrobromide (Celexa) 10 MG TABLET 1 TAB PO DAILY UNKNOWN ( Reported) Cyanocobalamin (Vitamin B-12) (Vitamin B-12) 100 MCG TABLET 1 TAB PO DAILY SUPPLEMENT (Reported) Daptomycin (Cubicin Rf) 500 MG VIAL 500 MG IV DAILY ANTIBIOTIC (Reported) Donepezil HCl (Aricept) 5 MG TABLET 1 TAB PO DAILY UNKNOWN (Reported) Ergocalciferol (Vitamin D2) (Vitamin D2) 50,000 UNIT CAPSULE 1 CAP PO Q30D SUPPLEMENT (Reported) Furosemide (Lasix) 20 MG TABLET 1 TAB PO EOD DIURETIC (Reported) Guaifenesin/Dextromethorphan (Tussin Dm Liquid) 100 MG-10 MG/5 ML LIQUID 10 ML PO TID COUGH/MUCUS (Reported) Ipratropium/Albuterol Sulfate (Iprat-Albut 0.5-3(2.5) MG/3 Ml) 0.5 MG-3 MG (2.5 MG BASE)/3 ML AMPUL.NEB 1 VIAL INH TID RESPIRATORY (Reported) Levetiracetam (Keppra) 500 MG TABLET 1 TAB PO QAM UNKNOWN (Reported) Magnesium Hydroxide (Milk Of Magnesia) 400 MG/5 ML ORAL.SUSP 30 ML PO DAILY PRN CONSTIPATION (Reported) Melatonin 5 MG TABLET 1 TAB PO QHS SLEEP (Reported) Memantine HCl (Namenda XR) 14 MG CAP.SPR.24 1 CAP PO DAILY UNKNOWN (Reported) Metformin HCl 500 MG TABLET 1 TAB PO BID DM (Reported) Mirtazapine 15 MG TABLET 0.5 TAB PO QHS UNKNOWN (Reported) Mometasone/Formoterol (Dulera 100 Mcg/5 Mcg Inhaler) 100 MCG-5 MCG/ACTUATION HFA.AER.AD 2 PUF INH BID RESPIRATORY (Reported) Multivitamin (Multi-Day Vitamins) 1 EACH TABLET 1 TAB PO DAILY SUPPLEMENT ( Reported) Na Phos,M-B/Na Phos,Di-Ba (Fleet Enema) 19 GRAM-7 GRAM/118 ML ENEMA 1 E RC DAILY PRN CONSTIPATION (Reported) [place]-3 Fatty Acids (Fish Oil) (Unknown Strength) CAPSULE (Unknown Dose) PO DAILY SUPPLEMENT (Reported) Omeprazole 20 MG CAPSULE.DR 1 CAP PO DAILY GI (Reported) Oxybutynin Chloride (Ditropan XL) 15 MG TAB.ER.24 2 TAB PO DAILY BLADDER ( Reported) Oxycodone HCl 10 MG TABLET 1 TAB PO Q8H PAIN (Reported) Potassium Chloride 20 MEQ TAB.ER.PRT 1 TAB PO QPM SUPPLEMENT (Reported) Psyllium Husk (Metamucil) (Unknown Strength) CAPSULE 1 CAP PO DAILY SUPPLEMENT (Reported) Saccharomyces Boulardii (Florastor) 250 MG CAPSULE 1 TAB PO QHS PROBIOTIC ( Reported) Trazodone HCl 50 MG TABLET 0.5 TAB PO Q12H PRN UNKNOWN (Reported) Review of Systems Review of Systems Constitutional: Reports: see HPI. 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 Needs Assist: dressing, toileting, bathing. Ambulation: non-ambulatory IADLs Needs Assist: shopping, housework, finances, food prep, telephone, transportation, medication admin. Exam & Diagnostic Data Last 24 Hrs of Vital Signs/I&O Vital Signs Date Time Temp Pulse Resp B/P Pulse O2 O2 Flow FiO2 Ox Delivery Rate 12/26 1331 91 Nasal 3.0L Cannula 12/26 0945 120/60 12/26 0800 98.3 77 20 120/58 91 Nasal 3.0L Cannula 12/26 0038 97.6 81 20 122/57 92 08 0000 Nasal 3.0L Cannula 12/25 2055 97.5 83 20 118/58 91 Nasal 3.0L Cannula 12/25 1932 98.8 90 18 120/58 95 Nasal 3.0L Cannula 12/25 1608 93 Nasal 3.0L Cannula 12/25 1606 98.8 78 18 146/73 93 Nasal 3.0L Cannula 12/25 1601 98.8 91 18 143/67 03/ 1601 98.8 91 18 143/67 95 Nasal 3.0L Cannula 12/25 1541 Nasal 3.0L Cannula 12/25 1440 94 Nasal 3.0L Cannula Intake & Output 03/08 1600 12/26 0800 03 0000 Intake Total 249.1 200 Output Total 26 250 Balance 223.1 -50 Intake, IV 249.1 Intake, Oral 200 Number 1 Bowel Movements Output, Stool 1 Output, Urine 25 250 Last 48 Hrs of Labs/Perfecto: Laboratory Tests 12/26/16 0600: Anion Gap 9, Estimated GFR > 60, BUN/Creatinine Ratio 30.0 H, PT 13.4 H, INR 1.28 H, APTT 61 H, CBC w Diff NO MAN DIFF REQ, RBC 3.31 L, MCV 81.0, MCH 25.9 L, RDW 20.2 H, MPV 7.0 L, Gran % 68.9, Lymphocytes % 10.3 L, Monocytes % 13.8 H, Eosinophils % 6.3 H, Basophils % 0.7, Absolute Granulocytes 5.8, Absolute Lymphocytes 0.9 L, Absolute Monocytes 1.2 H, Absolute Eosinophils 0.5 , Absolute Basophils 0.1, PUBS MCHC 32.0 L 12/26/16 0105: APTT 58 H 12/25/16 1833: APTT 49 H 12/25/16 0937: Urine Color YEL, Urine Clarity HAZY H, Urine pH 6.0, Ur Specific [place] 1.020, Urine Protein 30 H, Urine Ketones NEG, Urine Nitrite POS H, Urine Bilirubin NEG, Urine Urobilinogen 0.2, Ur Leukocyte Esterase LARGE H, Ur Microscopic SEDIMENT EXAMINED, Urine RBC RARE, Urine WBC PACKD H, Urine Hemoglobin SMALL H , Urine Glucose NEG 12/25/16 0920: Anion Gap 10, Estimated GFR > 60, BUN/Creatinine Ratio 30.0 H, Glucose 89, Lactic Acid 0.8, Calcium 9.9, Total Bilirubin 0.4, AST 24, ALT 28, Alkaline Phosphatase 105, Troponin I < 0.01, Total Protein 7.1, Albumin 3.1 L, Globulin 4.0, Albumin/Globulin Ratio 0.8 L, Lipase 30, PT 12.7 H, INR 1.21 H, APTT 31, CBC w Diff NO MAN DIFF REQ, RBC 3.44 L, MCV 80.9, MCH 25.8 L, RDW 20.0 H, MPV 7.2 L, Gran % 64.6, Lymphocytes % 13.5 L, Monocytes % 14.1 H, Eosinophils % 7.5 H, Basophils % 0.3, Absolute Granulocytes 4.7, Absolute Lymphocytes 1.0 L, Absolute Monocytes 1.0 H, Absolute Eosinophils 0.5, Absolute Basophils 0, PUBS MCHC 31.8 L Microbiology 12/25 1024 NASOPHARYN: Influenza Virus A & B Rapid Smear - COMP 12/25 0937 URINE ROUT: Streptococcus pneumoniae Antigen (M - COMP Assessment/Plan Impression/Plan: There are multiple nonocclusive segmental pulmonary emboli in the right lung. No CT evidence of increased right heart pressure Wedge-shaped right lung opacity which could represent an area of infarct. Bibasilar pulmonary opacities which might include some pneumonia and/or atelectasis Probably no change in incompletely included thoracic aortic dissection which does not involve the aortic arch Previous coronary artery bypass grafting Physical Exam General Appearance Alert, Oriented X3, Cooperative, No Acute Distress Skin decubitus ulcer IV picc in place HEENT Atraumatic, PERRLA, EOMI, Mucous Membr. moist/pink Neck Supple, No JVD Lymphatic Cervical nl Cardiovascular Regular Rate, Normal S1, Normal S2, No Murmurs Lungs diffuse crackles b/l Abdomen Normal Bowel Sounds, Soft, No Tenderness, colostomy bag in place Neurological Normal Speech, has paraplegia Extremities No Clubbing (picc in place rt arm), No Edema, Normal Pulses decub Supra pubic cath in place colostomy noted IMPRESSION Mr. 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 He may have had lower extremity DVT but lower extremity ultrasound is negative and generally patient with paraplegia are lower risk for DVTs in the lower ext. 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 per infectious disease * Diabetes, hypertension hyperlipidemia stable * No clinical evidence suggestive of severe pulmonary hypertension * No clinical evidence suggestive of DVT * Right-sided PICC line, rule out DVT in the upper extremity * Quadriplegia * Multiple problems as noted above RECOMMENDATION * Continue heparin * We will consider switching him to by mouth anticoagulation with Xeralto in the future * Please order upper extremity Doppler to rule out any upper extremity DVT on the site where the PICC line is placed * We will consider CT of the abdomen in the future with renal mass protocol to rule out any malignancy of the kidney as he is high-risk for secondary malignancy * Continue to apply wound VAC and other medications we will follow closely Consult Acknowledgment - Thank you for your consult request.
--- NOTE | 2016-12-26 14:45 | NUR ---
WOUND CARE: STAGE 4 PRESSURE INJURY POA 14 X 16 X 2 CM EXPOSED BONE AND RED FILL TO SACRUM - 3 CM UNDERMINING CIRCUMFERENTIALLY - NO C/O - LARGE AMOUNTS OF SEROSANG DRNG - DR NIÑO MADE AWARE OF WOUND STATUS - MD TO SEE TOMORROW RECOMMENDATION: CLINTRON BED - REAPPLY WOUND VAC ONCE AVAILABLE - STRICT OFFLOADING OF AFFECTED AREAS - TO NOTE, PT HAS 2 AREAS OF DTI TO ALIYA HEELS 3 X 1 CM FLUSH LIGHT PURPLE DISCOLORED HUE - ELEVATE ON PILLOWS AT ALL TIMES UNTIL MATTRESS AVAILABLE
--- NOTE | 2016-12-26 14:46 | Discharge Summary ---
Visit Information Visit Dates Admission Date: 12/25/16 Discharge Date: 12/27/16 Hospital Course Course Attending Physician: SLIM COLE MD Primary Care Physician: SLIM COLE MD Consulting Request: Consulting Specialty: Pulmonary Disease Hospital Course: 71-year-old male with past medical history of AAA repair, spinal stroke with paraplegia, indwelling suprapubic catheter, colostomy, non-healing sacral decubitus ulcer, diabetes mellitus, hyperlipidemia, coronary artery disease, hypertension, GERD, anxiety, depression was brought in by ambulance from [facility] care facility after being noted to be hypoxic. Relates that for the past week he said increasing cough, with low-grade temperatures. Denies chest pain, shortness of breath, palpitations, or lightheadedness. Due to his paralysis, he does not have any sensation below T4. Pulmonary embolus He was found to have a pulmonary embolus, on CTA. And was started on heparin anticoagulation. Sites of possible thrombus formation were investigated. Doppler of the lower extremities did not reveal any thrombus. He has a PICC line in place in the right upper arm, without any swelling at the site, Doppler of the right upper extremity was obtained which was negative. Heparin was transitioned to xarelto 15mg BID for 21 days, he is then asked to continue with 20mg daily. Stage IV Decubitus ulcer History of decubitus ulcer, with or cultures positive for vancomycin-resistant enterococcus. He was placed on daptomycin as recommended by infectious disease. He is scheduled to complete this course on 01/04/2017. While hospitalized he continued daptomycin 500 mg IV through his PICC line which was in place. Wound care consult was placed, recommend clinitron mattress and wound vac. Diabetes Blood sugars were monitored, while hospitalized he was placed on a NovoLog sliding scale. Seizures His home medication of Keppra was continued while hospitalized with no seizures throughout his stay. Depression He was continued on his home psychiatric medications Allergies: Coded Allergies: NO KNOWN ALLERGIES (10/18/16) Pertinent Lab Results: Vital Signs Date Time Temp Pulse Resp B/P Pulse O2 O2 Flow FiO2 Ox Delivery Rate 12/27 916 130/60 12/27 829 98.0 85 20 136/60 93 Nasal 2.0L Cannula 12/28 827 92 Nasal 3.0L Cannula 12/27 44 97.6 100 18 110/60 90 Nasal 2.0L Cannula 12/27 0000 Nasal 3.0L Cannula 12/26 1730 91 Nasal 3.0L Cannula 12/26 1530 97.1 86 18 158/44 91 Nasal 3.0L Cannula 12/26 1331 91 Nasal 3.0L Cannula Laboratory Tests 12/27/16 0900: Sodium Cancelled, Potassium Cancelled, Chloride Cancelled, Carbon Dioxide Cancelled, Anion Gap Cancelled, BUN Cancelled, Creatinine Cancelled, BUN/ Creatinine Ratio Cancelled 12/27/16 0310: APTT 72 H, CBC w Diff NO MAN DIFF REQ, RBC 3.15 L, MCV 80.4, MCH 25.5 L, RDW 19.9 H, MPV 6.8 L, Gran % 65.1, Lymphocytes % 15.4 L, Monocytes % 13.9 H, Eosinophils % 5.2 H, Basophils % 0.4, Absolute Granulocytes 5.9, Absolute Lymphocytes 1.4, Absolute Monocytes 1.3 H, Absolute Eosinophils 0.5, Absolute Basophils 0, PUBS MCHC 31.7 L, ESR W[place] 103 H 12/26/16 2000: APTT 51 H Vital Signs Date Time Temp Pulse Resp B/P Pulse O2 O2 Flow FiO2 Ox Delivery Rate 12/27 0917 130/60 12/27 0830 98.0 85 20 136/60 93 Nasal 2.0L Cannula 12/27 0828 92 Nasal 3.0L Cannula 12/27 0045 97.6 100 18 110/60 90 Nasal 2.0L Cannula 12/27 0000 Nasal 3.0L Cannula 12/26 1730 91 Nasal 3.0L Cannula 12/26 1530 97.1 86 18 158/44 91 Nasal 3.0L Cannula 12/26 1331 91 Nasal 3.0L Cannula Disposition Summary Disposition Principal Diagnosis: Pulmonary Embolus Additional Diagnosis: Decubitus Ulcer DM Seizures Discharge Disposition: SNF Discharge Instructions General Discharge Information Code Status: Do Not Resucitate/Intubat Patient's Diet: Diabetic diet Patient's Activity: Max Assist Follow-Up Instructions/Appts: Please f/u with PCP in one week. Medications at Discharge Discharge Medications: Continue taking these medications: Daptomycin (Cubicin Rf) 500 MG VIAL 500 Milligram INTRAVEN DAILY Comments: Last Taken:12/26/16 Time:1500 PER MAR STOP DATE 01/04/17 Aspirin (Ecotrin*) 81 MG TABLET. 1 Tablet ORAL DAILY Comments: Last Taken:12/27/16 Time:1000 Oxycodone HCl (Oxycodone HCl) 10 MG TABLET 1 Tablet ORAL Q8H Comments: Last Taken:12/27/16 Time:0600 Benazepril HCl (Benazepril HCl) 10 MG TABLET 1 Tablet ORAL DAILY Comments: Last Taken:12/27/16 Time:1000 LISINOPRIL Ergocalciferol (Vitamin D2) (Vitamin D2) 50,000 UNIT CAPSULE 1 Capsule ORAL ONCE A MONTH Comments: PER DEC EVERY MONTH ON Mirtazapine (Mirtazapine) 15 MG TABLET 0.5 Tablet ORAL TAKE AT BEDTIME Comments: Last Taken:12/26/16 Time:2200 Atorvastatin Calcium (Lipitor) 10 MG TABLET 1 Tablet ORAL DAILY Comments: Last Taken:12/27/16 Time:1000 Citalopram Hydrobromide (Celexa) 10 MG TABLET 1 Tablet ORAL DAILY Comments: Last Taken:12/27/16 Time:1000 Ipratropium/Albuterol Sulfate (Iprat-Albut 0.5-3(2.5) MG/3 Ml) 0.5 MG-3 MG (2.5 MG BASE)/3 ML AMPUL.NEB 1 VIAL Inhale through mouth THREE TIMES DAILY Comments: Last Taken:12/27/16 Time:1000 Memantine HCl (Namenda XR) 14 MG CAP.SPR.24 1 Capsule ORAL DAILY Comments: Last Taken:12/27/16 Time:1000 ORDERED ON 12/20/2016 FOR 1 WEEK THEN NAMENDA 7MG XR FOR 1 WEEK THEN DISCONTINUE Donepezil HCl (Aricept) 5 MG TABLET 1 Tablet ORAL DAILY Comments: Last Taken:12/27/16 Time:1000 PER MAR ORDERED ON 12/20/2016 FOR 1 WEEK THEN DISCONTINUE Levetiracetam (Keppra) 500 MG TABLET 1 Tablet ORAL Every Morning Comments: Last Taken:12/27/16 Time:1000 Furosemide (Lasix) 20 MG TABLET 1 Tablet ORAL Every other day Comments: Last Taken:12/27/16 Time:1000 Omeprazole (Omeprazole) 20 MG CAPSULE. 1 Capsule ORAL DAILY Comments: Last Taken:12/27/16 Time:0700 Baclofen (Baclofen) 10 MG TABLET 1 Tablet ORAL DAILY Comments: Last Taken:12/27/16 Time:1000 Multivitamin (Multi-Day Vitamins) 1 EACH TABLET 1 Tablet ORAL DAILY Comments: Last Taken:12/27/16 Time:1000 [place]-3 Fatty Acids (Fish Oil) (Unknown Strength) CAPSULE Unknown Dose ORAL DAILY Comments: Last Taken:12/27/16 Time:1000 Saccharomyces Boulardii (Florastor) 250 MG CAPSULE 1 Tablet ORAL TAKE AT BEDTIME Comments: PER DEC Metformin HCl (Metformin HCl) 500 MG TABLET 1 Tablet ORAL TWICE DAILY Comments: PER DEC Mometasone/Formoterol (Dulera 100 Mcg/5 Mcg Inhaler) 100 MCG-5 MCG/ACTUATION HFA.AER.AD 2 Puff Inhale through mouth TWICE DAILY Comments: Last Taken:12/27/16 Time:1000 Amino Acids/Protein Hydrolys (Pro-Stat Sugar Free Liquid) (Unknown Strength) LIQUID 30 Milliliters ORAL TWICE DAILY Comments: PER DEC Guaifenesin/Dextromethorphan (Tussin Dm Liquid) 100 MG-10 MG/5 ML LIQUID 10 Milliliters ORAL THREE TIMES DAILY Comments: ORDERED ON 12/22/16 FOR 7 DAYS Cyanocobalamin (Vitamin B-12) (Vitamin B-12) 100 MCG TABLET 1 Tablet ORAL DAILY Comments: Last Taken:12/27/16 Time:1000 Psyllium Husk (Metamucil) (Unknown Strength) CAPSULE 1 Capsule ORAL DAILY Comments: Last Taken:12/27/16 Time:1000 Oxybutynin Chloride (Ditropan XL) 15 MG TAB.ER.24 2 Tablet ORAL DAILY Comments: Last Taken:12/27/16 Time:1000 Potassium Chloride (Potassium Chloride) 20 MEQ TAB.ER.PRT 1 Tablet ORAL Every night Comments: PER DEC Melatonin (Melatonin) 5 MG TABLET 1 Tablet ORAL TAKE AT BEDTIME Comments: Last Taken:12/26/16 Time:2200 Bisacodyl (Bisacodyl) 10 MG SUPP.RECT 1 Suppository RECTAL as needed for CONSTIPATION Comments: PER DEC IF MOM INEFFECTIVE Na Phos,M-B/Na Phos,Di-Ba (Fleet Enema) 19 GRAM-7 GRAM/118 ML ENEMA 1 Enema RECTAL DAILY as needed for CONSTIPATION Comments: PER DEC IF BISACODYL SUPP INEFFECTIVE Acetaminophen (Q-Pap) 325 MG TABLET 2 Tablet ORAL Q4H as needed for PAIN/TEMP>/100 Comments: PER DEC NTE 3GM APAP/24H Magnesium Hydroxide (Milk Of Magnesia) 400 MG/5 ML ORAL.SUSP 30 Milliliters ORAL DAILY as needed for CONSTIPATION Comments: PER DEC Trazodone HCl (Trazodone HCl) 50 MG TABLET 0.5 Tablet ORAL Q12H as needed for UNKNOWN Comments: PER DEC Start taking the following new medications: Rivaroxaban (Xarelto) 20 MG TABLET 1 Tablet ORAL DAILY Qty = 30 No Refills Instructions: with food Please start medication on 01/18/17 Comments: Last Taken: Time: Rivaroxaban (Xarelto) 15 MG TABLET 15 Milligram ORAL TWICE DAILY Days = 21 No Refills Instructions: Please continue this dose until 01/17/17. then continue 20mg daily. Comments: Last Taken:12/27/16 Time:1000 Copies To: JEANNIE ANN MD
[2016-12-26 15:30] VITALS: BP 158/44
--- NOTE | 2016-12-26 17:29 | ULTRASOUND REPORT ---
EXAMINATION: UNILATERAL TRIPLEX SCANNING OF THE RIGHT UPPER EXTREMITY CLINICAL INFORMATION: Right upper extremity swelling. COMPARISON: None. TECHNIQUE: Color-flow triplex imaging with spectral analysis and compression Doppler were performed on the right upper extremity. FINDINGS: Respiratory variation, normal compression and augmented flow are noted throughout the upper extremity. The visualized internal jugular vein, subclavian vein, axillary vein, cephalic vein, basilic vein, brachial vein, median cubital vein and forearm venous segments show no evidence of deep venous thrombosis. PICC line is visualized. IMPRESSION: Normal triplex scan without evidence of deep venous thrombosis involving the right upper extremity.
[2016-12-26 21:01] LABS: PTT 51 SEC (25-37)
[2016-12-27 00:45] VITALS: BP 110/60
[2016-12-27 03:25] LABS: ABSOLUTE BASOPHIL COUNT 0 /CUMM (0.0-0.2); ABSOLUTE EOSINOPHIL COUNT 0.5 /CUMM (0.0-0.7); ABSOLUTE GRANULOCYTE CT 5.9 /CUMM (1.4-6.5); ABSOLUTE LYMPH COUNT 1.4 /CUMM (1.2-3.4); ABSOLUTE MONOCYTE COUNT 1.3 /CUMM (0.10-0.60); BASOPHIL % 0.4 % (0.0-2.0); EOSINOPHIL % 5.2 % (0-5); GRANULOCYTE % 65.1 % (42.2-75.2); HEMATOCRIT 25.3 % (42-52); MEAN CORPUSCULAR HGB 25.5 PG (27.0-31.0); MEAN CORPUSCULAR HGB CONC 31.7 G/DL (33.0-37.0); MEAN CORPUSCULAR VOLUME 80.4 FL (80.0-94.0); MEAN PLATELET VOLUME 6.8 FL (7.4-10.4); PLATELET COUNT 512 /CUMM (130-400); RBC DISTRIBUTION WIDTH 19.9 % (11.5-14.5); RED BLOOD CELL CT 3.15 /CUMM (4.70-6.10)
[2016-12-27 03:33] LABS: PTT 72 SEC (25-37)
--- NOTE | 2016-12-27 08:13 | PN- Pulmonary ---
Subjective HPI/Critical Care Issues: Doing better awake eating breakfast No other complaints Review of symptoms otherwise unremarkable No headaches nausea vomiting Review of Systems: Eyes no blurred or double vision Ears no deafness or ringing Nose and throat no recurrent sinusitis Lungs per history of present illness Heart per history of present illness Abdomen no nausea vomiting Musculoskeletal occasional muscle and joint pains Psych no anxiety or depression Neuro without recurrent headache or seizures Endocrine no heat or cold intolerance Significant data reviewed creatinine to be done today Hemoglobin low from this morning needs to be monitored Platelets are still elevated patient seemed to have thrombocytosis which has been present on and off. Ultrasound of the arm showed no DVT. Continues to be on antibiotics. Objective Current Medications: Current Medications Sig/Mey Start time Last Medication Dose Route Stop Time Status Admin Acetaminophen 650 MG Q4H PRN 12/25 1415 AC PO Aspirin Buffered 81 MG DAILY 12/25 1410 AC 12/26 PO 0943 Atorvastatin Calcium 10 MG DAILY 12/25 1411 AC 12/26 PO 0943 Baclofen 10 MG DAILY 12/25 1413 AC 12/26 PO 0943 Budesonide/ 2 PUF BID 12/26 1000 AC 12/26 Formoterol Fumarate INH 2115 Citalopram 10 MG DAILY 12/25 1411 AC 12/26 Hydrobromide PO 0943 Cyanocobalamin 1,000 MCG DAILY 12/26 1000 AC 12/26 PO 0944 Daptomycin 500 MG 1500 12/26 1500 AC 12/26 Sodium Chloride 50 ML IV 01/04 1529 1650 Donepezil HCl 5 MG DAILY 12/25 1412 AC 12/26 PO 0943 Fish Oil 1,050 MG DAILY 12/25 1413 AC 12/26 PO 1051 Furosemide 20 MG Q48H 12/26 1000 AC 12/26 PO 0943 Guaifenesin 10 ML ONCE ONE 12/26 2014 DC / PO 12/27 2015 211 Heparin Sodium 25,000 UNIT Q24H 12/25 1145 AC 12/26 (Porcine) IV 0601 Sodium Chloride 500 ML Insulin Aspart 0 TIDAC 12/25 1700 AC SC Levetiracetam 500 MG QAM 12/25 1413 AC 12/26 PO 0943 Lisinopril 10 MG DAILY 12/25 1411 AC 12/26 PO 0945 Magnesium Hydroxide 30 ML DAILY PRN 12/25 1415 AC PO Melatonin 5 MG AT BEDTIME 12/25 2200 AC 12/26 PO 2114 Memantine 15 MG DAILY 12/26 1000 AC 12/26 PO 0943 Mirtazapine 7.5 MG AT BEDTIME 12/25 2199 AC 12/26 PO 211 Multivitamins 1 TAB DAILY 12/25 141 AC 12/26 Therapeutic PO 0944 Omeprazole 20 MG DAILY 12/25 141 AC 12/26 PO 0944 Oxybutynin Chloride 5 MG TID 12/25 1600 AC 12/26 PO 211 Oxycodone HCl 10 MG Q8 12/25 220 AC 12/27 PO 0702 Protein 2 PKT BID 12/25 220 AC 12/26 PO 211 Psyllium Hydrophilic 1 PAC DAILY 12/26 1000 AC 12/26 Mucilloid PO 943 Sodium Phosphate 1 UNIT DAILY PRN 12/25 141 AC WV Trazodone HCl 25 MG Q12H PRN 12/25 1415 AC PO Laboratory Tests 12/27 12/26 12/26 0310 2000 0800 Coagulation APTT (25 - 37 SEC) 72 H 51 H Cancelled Hematology CBC w Diff NO MAN DIFF REQ WBC (4.8 - 10.8 /CUMM) 9.0 RBC (4.70 - 6.10 /CUMM) 3.15 L Hgb (14.0 - 18.0 G/DL) 8.0 L Hct (42 - 52 %) 25.3 L MCV (80.0 - 94.0 FL) 80.4 MCH (27.0 - 31.0 PG) 25.5 L RDW (11.5 - 14.5 %) 19.9 H Plt Count (130 - 400 /CUMM) 512 H MPV (7.4 - 10.4 FL) 6.8 L Gran % (42.2 - 75.2 %) 65.1 Lymphocytes % (20.5 - 51.1 %) 15.4 L Monocytes % (1.7 - 9.3 %) 13.9 H Eosinophils % (0 - 5 %) 5.2 H Basophils % (0.0 - 2.0 %) 0.4 Absolute Granulocytes (1.4 - 6.5 /CUMM) 5.9 Absolute Lymphocytes (1.2 - 3.4 /CUMM) 1.4 Absolute Monocytes (0.10 - 0.60 /CUMM) 1.3 H Absolute Eosinophils (0.0 - 0.7 /CUMM) 0.5 Absolute Basophils (0.0 - 0.2 /CUMM) 0 PUBS MCHC (33.0 - 37.0 G/DL) 31.7 L ESR Westergren (0 - 10 MM) 103 H 03/08 03/08 03/07 0600 0105 1833 Chemistry Sodium (137 - 145 mmol/L) 137 Potassium (3.5 - 5.1 mmol/L) 4.4 Chloride (98 - 107 mmol/L) 100 Carbon Dioxide (22 - 30 mmol/L) 28 Anion Gap (5 - 16) 9 BUN (9 - 20 mg/dL) 24 H Creatinine (0.7 - 1.2 mg/dL) 0.8 Estimated GFR (>60 ml/min) > 60 BUN/Creatinine Ratio (7 - 25 %) 30.0 H Coagulation PT (9.4 - 12.5 SEC) 13.4 H INR (0.90 - 1.17) 1.28 H APTT (25 - 37 SEC) 61 H 58 H 49 H Hematology CBC w Diff NO MAN DIFF REQ WBC (4.8 - 10.8 /CUMM) 8.4 RBC (4.70 - 6.10 /CUMM) 3.31 L Hgb (14.0 - 18.0 G/DL) 8.6 L Hct (42 - 52 %) 26.8 L MCV (80.0 - 94.0 FL) 81.0 MCH (27.0 - 31.0 PG) 25.9 L RDW (11.5 - 14.5 %) 20.2 H Plt Count (130 - 400 /CUMM) 504 H MPV (7.4 - 10.4 FL) 7.0 L Gran % (42.2 - 75.2 %) 68.9 Lymphocytes % (20.5 - 51.1 %) 10.3 L Monocytes % (1.7 - 9.3 %) 13.8 H Eosinophils % (0 - 5 %) 6.3 H Basophils % (0.0 - 2.0 %) 0.7 Absolute Granulocytes (1.4 - 6.5 /CUMM) 5.8 Absolute Lymphocytes (1.2 - 3.4 /CUMM) 0.9 L Absolute Monocytes (0.10 - 0.60 /CUMM) 1.2 H Absolute Eosinophils (0.0 - 0.7 /CUMM) 0.5 Absolute Basophils (0.0 - 0.2 /CUMM) 0.1 PUBS MCHC (33.0 - 37.0 G/DL) 32.0 L 12/25 12/25 0937 0920 Chemistry Sodium (137 - 145 mmol/L) 139 Potassium (3.5 - 5.1 mmol/L) 4.7 Chloride (98 - 107 mmol/L) 101 Carbon Dioxide (22 - 30 mmol/L) 29 Anion Gap (5 - 16) 10 BUN (9 - 20 mg/dL) 21 H Creatinine (0.7 - 1.2 mg/dL) 0.7 Estimated GFR (>60 ml/min) > 60 BUN/Creatinine Ratio (7 - 25 %) 30.0 H Glucose (65 - 99 mg/dL) 89 Lactic Acid (0.7 - 2.1 mmol/L) 0.8 Calcium (8.4 - 10.2 mg/dL) 9.9 Total Bilirubin (0.2 - 1.3 mg/dL) 0.4 AST (17 - 59 U/L) 24 ALT (21 - 72 U/L) 28 Alkaline Phosphatase (< 127 U/L) 105 Troponin I (<0.11 ng/ml) < 0.01 Total Protein (6.3 - 8.2 g/dL) 7.1 Albumin (3.5 - 5.0 g/dL) 3.1 L Globulin (1.9 - 4.2 gm/dL) 4.0 Albumin/Globulin Ratio (1.1 - 2.2 %) 0.8 L Lipase (23 - 300 U/L) 30 Coagulation PT (9.4 - 12.5 SEC) 12.7 H INR (0.90 - 1.17) 1.21 H APTT (25 - 37 SEC) 31 Hematology CBC w Diff NO MAN DIFF REQ WBC (4.8 - 10.8 /CUMM) 7.3 RBC (4.70 - 6.10 /CUMM) 3.44 L Hgb (14.0 - 18.0 G/DL) 8.9 L Hct (42 - 52 %) 27.9 L MCV (80.0 - 94.0 FL) 80.9 MCH (27.0 - 31.0 PG) 25.8 L RDW (11.5 - 14.5 %) 20.0 H Plt Count (130 - 400 /CUMM) 522 H MPV (7.4 - 10.4 FL) 7.2 L Gran % (42.2 - 75.2 %) 64.6 Lymphocytes % (20.5 - 51.1 %) 13.5 L Monocytes % (1.7 - 9.3 %) 14.1 H Eosinophils % (0 - 5 %) 7.5 H Basophils % (0.0 - 2.0 %) 0.3 Absolute Granulocytes (1.4 - 6.5 /CUMM) 4.7 Absolute Lymphocytes (1.2 - 3.4 /CUMM) 1.0 L Absolute Monocytes (0.10 - 0.60 /CUMM) 1.0 H Absolute Eosinophils (0.0 - 0.7 /CUMM) 0.5 Absolute Basophils (0.0 - 0.2 /CUMM) 0 PUBS MCHC (33.0 - 37.0 G/DL) 31.8 L Urines Urine Color (YEL,AMB,STR) YEL Urine Clarity (CLEAR) HAZY H Urine pH (5.0 - 8.0) 6.0 Ur Specific [place] (1.001 - 1.035) 1.020 Urine Protein (NEG,<30 MG/DL) 30 H Urine Ketones (NEG) NEG Urine Nitrite (NEG) POS H Urine Bilirubin (NEG) NEG Urine Urobilinogen (0.1 - 1.0 EU/dl) 0.2 Ur Leukocyte Esterase (NEG) LARGE H Ur Microscopic SEDIMENT EXAMINED Urine RBC (0 - 5 /HPF) RARE Urine WBC (0 - 2 /HPF) PACKD H Urine Hemoglobin (NEG) SMALL H Urine Glucose (N MG/DL) NEG Microbiology Date/Time Procedure - Status Source Growth 12/25 1024 Influenza Virus A & B Rapid Smear - COMP NASOPHARYN 12/25 1000 Blood Culture - RES BLOOD 12/25 0937 Streptococcus pneumoniae Antigen (M - COMP URINE ROUT 12/25 936 Urine Culture - RES URINE ROUT GRAM NEGATIVE RODS 12/25 0920 Blood Culture - RES BLOOD Vital Signs & I&O Last 24 Hrs of Vitals and I&O: Vital Signs Date Time Temp Pulse Resp B/P Pulse O2 O2 Flow FiO2 Ox Delivery Rate 12/27 0045 97.6 100 18 110/60 90 Nasal 2.0L Cannula 12/27 0000 Nasal 3.0L Cannula 12/26 1730 91 Nasal 3.0L Cannula 12/26 1530 97.1 86 18 158/44 91 Nasal 3.0L Cannula 12/26 1331 91 Nasal 3.0L Cannula 12/26 0945 120/60 Intake & Output 12/27 1600 12/27 0800 12/27 0000 Intake Total 333.2 744.6 Output Total 1410 955 Balance -1076.8 -210.4 Intake, IV 283.2 264.6 Intake, Oral 50 480 Output, Stool 10 5 Output, Urine 1400 950 Impression/Plan Impression/Plan Impression/Plan: There are multiple nonocclusive segmental pulmonary emboli in the right lung. No CT evidence of increased right heart pressure Wedge-shaped right lung opacity which could represent an area of infarct. Bibasilar pulmonary opacities which might include some pneumonia and/or atelectasis Probably no change in incompletely included thoracic aortic dissection which does not involve the aortic arch Previous coronary artery bypass grafting Upper extremity no DVT Physical Exam General Appearance Alert, Oriented X3, Cooperative, No Acute Distress Skin decubitus ulcer IV picc in place HEENT Atraumatic, PERRLA, EOMI, Mucous Membr. moist/pink Neck Supple, No JVD Lymphatic Cervical nl Cardiovascular Regular Rate, Normal S1, Normal S2, No Murmurs Lungs diffuse crackles b/l Abdomen Normal Bowel Sounds, Soft, No Tenderness, colostomy bag in place Neurological Normal Speech, has paraplegia Extremities No Clubbing (picc in place rt arm), No Edema, Normal Pulses decub Supra pubic cath in place colostomy noted IMPRESSION Mr. 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, now on long-term antibiotic therapy, previous colostomy, diabetes mellitus, hyperlipidemia, coronary artery disease, hypertension, GERD, anxiety and depression, Now has a following issues * Bilateral pulmonary embolism, and a gentleman who is bedbound after paraplegia with a CT finding suggestive of a pulmonary infarct 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 per infectious disease * Diabetes, hypertension hyperlipidemia stable * No clinical evidence suggestive of severe pulmonary hypertension * No clinical evidence suggestive of DVT * Right-sided PICC line, ultrasound negative for DVT * Paraplegia * Some abnormality noted in the kidney rule out any malignancy of the kidney * Significant thrombocytosis on and off * Multiple problems as noted above RECOMMENDATION * Continue heparin, can switch him to xeralto 15 mg twice a day for 3 weeks then 20 mg daily * Check BUN/creatinine * We will consider CT of the abdomen in the future with renal mass protocol to rule out any malignancy of the kidney as he is high-risk for secondary malignancy * Continue to apply wound VAC and other medications we will follow closely
[2016-12-27 08:30] VITALS: BP 136/60
--- NOTE | 2016-12-27 09:30 | PN- Att Addend ---
Attending Addendum Attending Brief Note Patient denies any complaints including chest pain or shortness of breath. He is on 3 L of oxygen. General Appearance: Alert, No Acute Distress Skin: Grossly normal HEENT: PEERLA Neck: Supple, No JVD Cardiovascular: Regular Rate, Normal S1, Normal S2, No Murmurs Lungs: Occasional crackles right lung Abdomen: Normal Bowel Sounds, Soft, No Tenderness Neurological: Normal Speech, Strength at 5/5 X4 Ext, Cranial Nerves 3-12 NL, Reflexes 2+ Extremities: No Clubbing, No Cyanosis, No Edema Vascular: Normal Pulses Assessment 71-year-old history of paraplegia secondary to spinal stroke, indwelling catheter, chronic stage IV decubitus with osteomyelitis currently on IV antibiotics, diabetes presented to the ER with shortness of breath. CTA suggested multiple right lung PE with possible pulmonary infarction. Hypoxic respiratory failure requiring high flow oxygen. Ultrasound lower extremity is negative for DVT. Currently is on heparin drip. Plan Change to xarelto Continue IV antibiotics Continue other home medications Wound care per wound team Insulin sliding scale and Accu-Cheks Current Medications Sig/Mey Start time Last Medication Dose Route Stop Time Status Admin Acetaminophen 650 MG Q4H PRN 12/25 1415 AC PO Aspirin Buffered 81 MG DAILY 12/25 1410 AC 12/27 PO 0916 Atorvastatin Calcium 10 MG DAILY 12/25 1411 AC 12/27 PO 0916 Baclofen 10 MG DAILY 12/25 1413 AC 12/27 PO 0915 Budesonide/ 2 PUF BID 12/26 1000 AC 12/27 Formoterol Fumarate INH 0917 Citalopram 10 MG DAILY 12/25 1411 AC 12/27 Hydrobromide PO 0916 Cyanocobalamin 1,000 MCG DAILY 12/26 1000 AC 12/27 PO 0916 Daptomycin 500 MG 1500 / 1500 AC 12/26 Sodium Chloride 50 ML IV 01/04 1529 1650 Donepezil HCl 5 MG DAILY 12/25 1412 AC 12/27 PO 0916 Fish Oil 1,050 MG DAILY 12/25 1413 AC 12/27 PO 0916 Furosemide 20 MG Q48H 12/26 1000 AC 12/26 PO 0943 Guaifenesin 10 ML ONCE ONE 12/26 2014 DC 12/26 PO 12/27 2015 2114 Heparin Sodium 25,000 UNIT Q24H 12/25 1145 AC 12/26 (Porcine) IV 0601 Sodium Chloride 500 ML Insulin Aspart 0 TIDAC 12/25 1700 AC SC Levetiracetam 500 MG QAM 12/25 1413 AC 12/27 PO 0915 Lisinopril 10 MG DAILY 12/25 1411 AC 12/27 PO 0917 Magnesium Hydroxide 30 ML DAILY PRN 12/25 1415 AC PO Melatonin 5 MG AT BEDTIME 12/25 2200 AC 12/26 PO 2114 Memantine 15 MG DAILY 12/26 1000 AC 12/27 PO 0916 Mirtazapine 7.5 MG AT BEDTIME 12/25 2200 AC 12/26 PO 2114 Multivitamins 1 TAB DAILY 12/25 1413 AC 12/27 Therapeutic PO 0916 Omeprazole 20 MG DAILY 12/25 1413 AC 12/27 PO 0916 Oxybutynin Chloride 5 MG TID 12/25 1600 AC 12/27 PO 0915 Oxycodone HCl 10 MG Q8 12/25 2200 AC 12/27 PO 0702 Protein 2 PKT BID 12/25 2200 AC 12/27 PO 0915 Psyllium Hydrophilic 1 PAC DAILY 12/26 1000 AC 12/27 Mucilloid PO 0915 Sodium Phosphate 1 UNIT DAILY PRN 12/25 1415 AC DC Trazodone HCl 25 MG Q12H PRN 12/25 1415 AC PO Laboratory Tests 12/27 12/26 0310 2000 Coagulation APTT (25 - 37 SEC) 72 H 51 H Hematology CBC w Diff NO MAN DIFF REQ WBC (4.8 - 10.8 /CUMM) 9.0 RBC (4.70 - 6.10 /CUMM) 3.15 L Hgb (14.0 - 18.0 G/DL) 8.0 L Hct (42 - 52 %) 25.3 L MCV (80.0 - 94.0 FL) 80.4 MCH (27.0 - 31.0 PG) 25.5 L RDW (11.5 - 14.5 %) 19.9 H Plt Count (130 - 400 /CUMM) 512 H MPV (7.4 - 10.4 FL) 6.8 L Gran % (42.2 - 75.2 %) 65.1 Lymphocytes % (20.5 - 51.1 %) 15.4 L Monocytes % (1.7 - 9.3 %) 13.9 H Eosinophils % (0 - 5 %) 5.2 H Basophils % (0.0 - 2.0 %) 0.4 Absolute Granulocytes (1.4 - 6.5 /CUMM) 5.9 Absolute Lymphocytes (1.2 - 3.4 /CUMM) 1.4 Absolute Monocytes (0.10 - 0.60 /CUMM) 1.3 H Absolute Eosinophils (0.0 - 0.7 /CUMM) 0.5 Absolute Basophils (0.0 - 0.2 /CUMM) 0 PUBS MCHC (33.0 - 37.0 G/DL) 31.7 L ESR Westergren (0 - 10 MM) 103 H Vital Signs Date Time Temp Pulse Resp B/P Pulse O2 O2 Flow FiO2 Ox Delivery Rate 12/27 0917 130/60 12/27 0830 98.0 85 20 136/60 93 Nasal 2.0L Cannula 12/27 0828 92 Nasal 3.0L Cannula 12/27 0045 97.6 100 18 110/60 90 Nasal 2.0L Cannula 12/27 0000 Nasal 3.0L Cannula 12/26 1730 91 Nasal 3.0L Cannula 12/26 1530 97.1 86 18 158/44 91 Nasal 3.0L Cannula 12/26 1331 91 Nasal 3.0L Cannula 12/26 0945 120/60
--- NOTE | 2016-12-27 09:43 | ECHOCARDIOGRAM REPORT ---
YOLANDA SUMMERS Age: 71 : 1945 Gender: M Exam Date: 12/26/2016 11:32 Exam Location: [address] Ht (in): 69 Wt (lb): 172 BSA: 1.96 BP: 122 / 57 Ordering Physician: JANNETH VALIENTE MD Referring Physician: JANNETH VALIENTE MD Technologist: David Sevilla [facility] Room Number: 173-1 Indications: ACUTE PULMONARY EMBOLISM Rhythm: Sinus Technical Quality: Technically difficult study FINDINGS Left Ventricle Normal size left ventricle. Normal size left ventricle. Mild concentric left ventricular hypertrophy. Normal left ventricular ejection fraction visually estimated at >60 %. Normal left ventricular wall motion. Right Ventricle Normal right ventricular size and function. Right Atrium Normal right atrial size. Left Atrium Normal left atrial size. Mitral Valve Mild mitral annular calcification. Aortic Valve Diffuse thickening (sclerosis) of the aortic valve cusps without reduced excursion. No aortic stenosis. [id number] aortic regurgitation. Tricuspid Valve Tricuspid valve not well visualized, grossly normal. Trace tricuspid regurgitation. No evidence of pulmonary hypertension. Pulmonic Valve Pulmonic valve not well visualized, grossly normal. Pericardium No pericardial effusion. Great Vessels Normal size aortic root. CONCLUSIONS Normal size left ventricle. Mild concentric left ventricular hypertrophy. Normal left ventricular ejection fraction visually estimated at >60 [id number] aortic regurgitation. Trace tricuspid regurgitation. Harlan Cárdenas M.D. (Electronically Signed) Final Date: 27 December 2016 09:43 MEASUREMENTS (Male / Female) Normal Values 2D ECHO LV Diastolic Diameter PLAX 4.7 cm 4.2 - 5.9 / 3.9 - 5.3 cm LV Systolic Diameter PLAX 3.2 cm 2.1 - 4.0 cm LV Fractional Shortening PLAX 31.9 % 25 - 46 % LV Ejection Fraction 2D Teich 60.0 % IVS Diastolic Thickness 1.4 cm LVPW Diastolic Thickness 1.4 cm LV Relative Wall Thickness 0.6 RV Internal Dim ED PLAX 4.2 cm 1.9 - 3.8 cm LVOT Diameter 2.1 cm Aortic Root Diameter 3.7 cm LA Systolic Diameter LX 2.5 cm 3.0 - 4.0 / 2.7 - 3.8 cm LA Volume 53.0 cm 18 - 58 / 22 - 52 cm Ascending Aorta Diameter 3.5 cm DOPPLER AV Peak Velocity 170.0 cm/s AV Peak Gradient 11.6 mmHg AV Mean Velocity 133.0 cm/s AV Mean Gradient 8.0 mmHg AV Velocity Time Integral 37.4 cm AI Deceleration Harney 216.5 cm/s AI Peak Velocity 364.5 cm/s AI Pressure Half Time 496.5 ms AI Peak Gradient 53.1 mmHg LVOT Peak Velocity 104.0 cm/s LVOT Peak Gradient 4.3 mmHg LVOT Mean Velocity 72.5 cm/s LVOT Mean Gradient 2.0 mmHg LVOT Velocity Time Integral 21.9 cm LVOT Stroke Volume 75.9 cm AV Area Cont Eq vti 2.0 cm AV Area Cont Eq pk 2.1 cm MV Peak Velocity 97.9 cm/s MV Peak Gradient 3.8 mmHg MV Mean Velocity 60.1 cm/s MV Mean Gradient 2.0 mmHg Mitral E Point Velocity 145.0 cm/s Mitral A Point Velocity 40.6 cm/s Mitral E to A Ratio 3.6 MV PHT Velocity 99.1 cm/s MV Deceleration Harney 487.0 cm/s MV Pressure Half Time 61.0 ms MV Area PHT 3.6 cm MV Deceleration Time 218.0 ms TR Peak Velocity 219.0 cm/s TR Peak Gradient 19.2 mmHg Right Atrial Pressure 10.0 mmHg Pulmonary Artery Systolic Pressu 29.2 mmHg Right Ventricular Systolic Press 29.2 mmHg PV Peak Velocity 71.7 cm/s PV Peak Gradient 2.1 mmHg PV Mean Velocity 51.2 cm/s PV Mean Gradient 1.0 mmHg PV Velocity Time Integral 12.9 cm
--- NOTE | 2016-12-27 09:44 | PN- Housestaff ---
Subjective Follow-up For: Pulmonary Embolism Decubitus Ulcer Diabetes Complaints: no complaints Tele-Events Since Last Visit: NSR 68-52 Subjective: Seen and examined at bedside. Reports feeling better today, mildly short of breath. with minimal cough. Slept well overnigh./ Review of Systems Constitutional: Reports: see HPI. Objective Last 24 Hrs of Vital Signs/I&O Vital Signs Date Time Temp Pulse Resp B/P Pulse O2 O2 Flow FiO2 Ox Delivery Rate 12/27 0817 130/60 12/28 0730 98.0 85 20 136/60 93 Nasal 2.0L Cannula 12/27 0828 92 Nasal 3.0L Cannula 12/27 0045 97.6 100 18 110/60 90 Nasal 2.0L Cannula 12/27 0000 Nasal 3.0L Cannula 12/26 1730 91 Nasal 3.0L Cannula 12/26 1530 97.1 86 18 158/44 91 Nasal 3.0L Cannula 12/26 1331 91 Nasal 3.0L Cannula 12/26 0945 120/60 Intake & Output 12/27 1600 12/27 0812/27 0000 Intake Total 333.2 744.6 Output Total 1410 955 Balance -1076.8 -210.4 Intake, IV 283.2 264.6 Intake, Oral 50 480 Output, Stool 10 5 Output, Urine 1400 950 Physical Exam General Appearance: Alert, Oriented X3, Cooperative, No Acute Distress Skin: decubitus ulcer IV HEENT: Atraumatic, PERRLA, EOMI, Mucous Membr. moist/pink Neck: Supple, No JVD Cardiovascular: Regular Rate, Normal S1, Normal S2, No Murmurs Lungs: minimal crackles Abdomen: Normal Bowel Sounds, Soft, No Tenderness, colostomy bag in place, suprapubic cather noted Neurological: Normal Speech Extremities: No Edema, Normal Pulses Assessment/Plan Assessment: 71-year-old male with past medical history of AAA repair, spinal stroke with paraplegia, indwelling suprapubic catheter, colostomy, non-healing sacral decubitus ulcer, diabetes mellitus, hyperlipidemia, coronary artery disease, hypertension, GERD, anxiety, depression was brought in by ambulance from [facility] after being noted to be hypoxic. Relates that for the past week he said increasing cough, with low-grade temperatures. Denies chest pain, shortness of breath, palpitations, or lightheadedness. Due to his paralysis, he does not have any sensation below T4. He was found on CTA to have multiple nonocclusive segmental pulmonary emboli in the right lung, along with wedge shaped lung opacity? infarct. Pulmonary Embolus He received a heparin bolus in ER we will continue IV heparin, dose to PE protocol check PTT, CBC, platelets Echocardiogram pending keep oxygen saturations > 92% USG of lower limbs negative for thrombus, USG negative Rt arm, PICC site we will guaic stools, we will need to switch to xarelto today Decubitus Ulcer OR culture positve for vancomycin-resistant enterococcus called nursing facility, recieved daptomycin today. LOG does not support this continue daptomycin as recommended by ID, course to complete 01/04/17 500mg IV through picc that is in place DM monitor accuchecks will place on novolog ss h/o seizures continue keppra home dose HTN Monitor BP, continue home medications HLD continue statin Bipolar continue psychiatry medications DNR/I Problem List: 1. Diabetes 2. Decubitus ulcer 3. Osteomyelitis 4. Pulmonary embolism 5. Pneumonia 6. Hypertension 7. Hyperlipidemia Pain Ratin Pain Location: no pain Pain Goal: Remain pain free Pain Plan: cont current management Tomorrow's Labs & Rationales: n/a Consulting Request: Consulting Specialty: Pulmonary Disease
[2016-12-27] MEDS ORDERED: XARELTO20 M2 PO (10:23)
[2016-12-27] MEDS ORDERED: XARELTO15 M1 PO (10:25)
--- NOTE | 2016-12-27 10:28 | Patient Discharge Instructions ---
Discharge Instructions General Discharge Information You were seen/treated for: Pulmonary Embolism Special Instructions: Please take xarelto 15mg BID for 21 days. (01/17/17) Then take 20mg daily Acute Coronary Syndrome Inclusion Criteria At DC or during hospital stay patient has or had the following: ACS DIAGNOSIS No Discharge Core Measures Meds if any: Prescribed or Continued at Discharge Meds if any: NOT Prescribed or Continued at Discharge Congestive Heart Failure Inclusion Criteria At DC or during hospital stay patient has or had the following: CHF DIAGNOSIS No Discharge Core Measures Meds if any: Prescribed or Continued at Discharge Meds if any: NOT Prescribed or Continued at Discharge Cerebrovascular accident Inclusion Criteria At DC or during hospital stay patient has or had the following: CVA/TIA Diagnosis No Discharge Core Measures Meds if any: Prescribed or Continued at Discharge Meds if any: NOT Prescribed or Continued at Discharge Venous thromboembolism Inclusion Criteria VTE Diagnosis Yes VTE Type Pulmonary Embolism VTE Confirmed by (Test) CT CHEST ANGIOGRAM Discharge Core Measures - Per Current guidelines, there needs to be overlap - treatment for the first 5 days of Warfarin therapy. - If discharged on Warfarin prior to 5 days of - overlap therapy, the patient will need to be - assessed for post discharge needs including - *Post discharge parental anticoagulation - *Warfarin and/or parental anticoagulation education - *Follow up date to check INR post discharge At least 5 days overlap therapy as Inpatient No Why was Parental Med stopped Other Anticoagulant given Meds if any: Prescribed or Continued at Discharge Overlap Therapy Yes (Xarelto) Note: Overlap Therapy is Warfarin and Anticoagulant Meds if any: NOT Prescribed or Continued at Discharge No Warfarin d/t Prescribed other Anticoag
[2016-12-27 12:44] VITALS: BP 130/60
== END 2016-12-27 14:57 | DRG 175 ==
LOC: ENRESERVTM → ENRESERVDT → ERH 08:55 → 1NO 11:54 → ENPENDDIS 11:54 → 1NO 11:54 → ERHI 11:54 → 1NO 20:23
PROVIDERS: Internal Medicine; Student in an Organized Health Care Education/Training Program; ADMIT Internal Medicine
DX: I26.99 Other pulmonary embolism without acute cor pulmonale (principal); L89.154 Pressure ulcer of sacral region, stage 4; J96.91 Respiratory failure, unspecified with hypoxia; G82.20 Paraplegia, unspecified; M46.28 Osteomyelitis of vertebra, sacral and sacrococcygeal region; N31.9 Neuromuscular dysfunction of bladder, unspecified; Z93.3 Colostomy status; E11.9 Type 2 diabetes mellitus without complications; E78.5 Hyperlipidemia, unspecified; I25.10 Atherosclerotic heart disease of native coronary artery without angina pectoris; I10 Essential (primary) hypertension; Z79.84 Long term (current) use of oral hypoglycemic drugs; K21.9 Gastro-esophageal reflux disease without esophagitis; F41.9 Anxiety disorder, unspecified; F31.9 Bipolar disorder, unspecified; Z95.1 Presence of aortocoronary bypass graft; Z66 Do not resuscitate
CPT/HCPCS: 1NP; 36415; 81001; 82436; 87040; 87086; 87450; 87804; 87804-59; 93005; 93010; 93306; 93970; 96374; 99291; J0878; J1644; J3490

== ENCOUNTER 2017-01-17 15:35 | Inpatient (IN) | payer OTHER, MEDICARE ==
[~2017-01-17] VITALS: Ht 170.2 cm; Wt 90.9 kg
[~2017-01-17 15:35] MED LIST changes: +ARICEPT5 M1 PO; +ASPIRIN EC81 M1 PO; +BACLOFEN10 M1 PO; +BENAZEPRIL HCL10 MG PO; +CELEXA10 M1 PO; +CUBICIN RF500 MG IV; +DITROPAN XL15 M1 PO; +DULERA 100 MCG/13 GM INH; +FISH OIL 1,001000 MG PO; +LASIX20 M1 PO; +MELATONIN5 M7 PO; +METAMUCIL0.52 GM PO; +METFORMIN HCL500 M3 PO; +MIRTAZAPINE15 M2 PO; +MULTI-DAY VITA1 EACH PO; +NAMENDA XR14 M1 PO; +OMEPRAZOLE20 M2 PO; +Q-PAP325 M1 PO; +TUSSIN DM LIQU118 ML PO; +VITAMIN B-12100 MC1 PO; +XARELTO15 M1 PO; +XARELTO20 M2 PO; +[UNRECOGNIZED DRUG - OTHER] PO
--- NOTE | 2017-01-17 15:58 | ED AMS/SEIZURE/WEAK/DIZZY ---
History of Present Illness General Chief Complaint: General Adult Stated Complaint: BIBA FOR HYPOTENSION Source: old records, EMS Exam Limitations: clinical condition, poor historian Vital Signs & Intake/Output Vital Signs & Intake/Output Vital Signs Date Time Temp Pulse Resp B/P Pulse O2 O2 Flow FiO2 Ox Delivery Rate 01/18 2108 199.2 111 20 92/48 94 Nasal 4.5L Cannula 01/17 2034 100.2 109 20 100/49 93 Nasal 4.0L Cannula 01/17 2025 100.2 109 20 100/52 96 Nasal 5.0L Cannula 01/17 2010 100.0 103 20 96/59 97 Nasal 5.0L Cannula 01/17 1939 99.9 105 107/53 93 Nasal 5.0L Cannula 01/17 1929 99.9 106 20 88/55 97 Nasal 5.0L Cannula 01/17 192 99.7 108 24 101/50 97 Nasal 5.0L Cannula 01/17 191 99.7 109 20 86/44 96 Nasal 5.0L Cannula 01/17 1908 99.7 103 22 84/47 95 Nasal 5.0L Cannula 01/17 1903 99.7 115 22 72/39 01/17 1903 99.7 115 22 72/39 95 Nasal 5.0L Cannula 01/17 1835 99.7 117 24 73/42 94 Nasal 5.0L Cannula 01/17 1730 99.3 118 24 91/52 93 Nasal 4.0L Cannula 01/17 1719 99.5 122 24 83/46 94 Nasal 4.0L Cannula 01/17 1710 99.7 124 20 72/48 96 Nasal 4.0L Cannula 01/17 1655 93 Nasal 6.0L Cannula 01/17 1654 99.5 125 20 88/51 93 Nasal 6.0L Cannula 01/17 1647 98.6 127 22 72/42 93 Nasal 6.0L Cannula 01/17 1622 128 22 70/34 93 Part 10L ReBreather 01/17 1605 100.2 138 24 64/40 93 Non 10L ReBreather 01/17 1555 150 24 58/32 83 Nasal 4.0L Cannula Allergies Coded Allergies: NO KNOWN ALLERGIES (10/18/16) Reconcile Medications Acetaminophen (Q-Pap) 325 MG TABLET 2 TAB PO Q4H PRN PAIN/TEMP>/100 (Reported ) Acetaminophen (Acephen) 650 MG SUPP.RECT 1 SUPP NH Q4H PRN PAIN/TEMP>100 ( Reported) Albuterol Sulfate 2.5 MG/3 ML (0.083 %) VIAL.NEB 1 Vial INH/DARRON Q4P WHILE AWAKE-RESPIRATORY (Reported) Amino Acids/Protein Hydrolys (Pro-Stat Sugar Free Liquid) (Unknown Strength) LIQUID 30 ML PO BID SUPPLEMENT (Reported) Aspirin (Ecotrin*) 81 MG TABLET.DR 1 TAB PO DAILY HEART/BLOOD (Reported) Atorvastatin Calcium (Lipitor) 10 MG TABLET 1 TAB PO DAILY CHOLESTEROL ( Reported) Baclofen 10 MG TABLET 1 TAB PO DAILY UNKNOWN (Reported) Benazepril HCl 10 MG TABLET 1 TAB PO DAILY BP (Reported) Bisacodyl 10 MG SUPP.RECT 1 SUP RC PRN CONSTIPATION (Reported) Cyanocobalamin (Vitamin B-12) (Vitamin B-12) 100 MCG TABLET 1 TAB PO DAILY SUPPLEMENT (Reported) Daptomycin (Cubicin Rf) 500 MG VIAL 500 MG IV DAILY ANTIBIOTIC (Reported) Ergocalciferol (Vitamin D2) (Vitamin D2) 50,000 UNIT CAPSULE 1 CAP PO Q30D SUPPLEMENT (Reported) Furosemide (Lasix) 20 MG TABLET 1 TAB PO EOD DIURETIC (Reported) Guaifenesin/Dextromethorphan (Guaifenesin Dm Syrup) 100 MG-10 MG/5 ML SYRUP 10 ML PO Q4H PRN MUCUS (Reported) Ipratropium/Albuterol Sulfate (Iprat-Albut 0.5-3(2.5) MG/3 Ml) 0.5 MG-3 MG (2.5 MG BASE)/3 ML AMPUL.NEB 1 VIAL INH TID RESPIRATORY (Reported) Levetiracetam (Keppra) 500 MG TABLET 1 TAB PO QAM UNKNOWN (Reported) Levofloxacin (Levaquin) 750 MG TABLET 1 TAB PO DAILY ANTIBIOTIC (Reported) Lisinopril (Zestril) 10 MG TABLET 1 TAB PO DAILY BP (Reported) Magnesium Hydroxide (Milk Of Magnesia) 400 MG/5 ML ORAL.SUSP 30 ML PO DAILY PRN CONSTIPATION (Reported) Melatonin 5 MG TABLET 1 TAB PO QHS SLEEP (Reported) Metformin HCl 500 MG TABLET 1 TAB PO BID DM (Reported) Mirtazapine 15 MG TABLET 0.5 TAB PO QHS UNKNOWN (Reported) Mometasone/Formoterol (Dulera 100 Mcg/5 Mcg Inhaler) 100 MCG-5 MCG/ACTUATION HFA.AER.AD 2 PUF INH BID RESPIRATORY (Reported) Multivitamin (Multi-Day Vitamins) 1 EACH TABLET 1 TAB PO DAILY SUPPLEMENT ( Reported) Na Phos,M-B/Na Phos,Di-Ba (Fleet Enema) 19 GRAM-7 GRAM/118 ML ENEMA 1 E RC DAILY PRN CONSTIPATION (Reported) [place]-3/Dha/Epa/Fish Oil (Fish Oil 1,000 MG Softgel) 1,000 MG (120 MG-180 MG) CAPSULE 1 CAP PO DAILY SUPPLEMENT (Reported) Omeprazole 20 MG CAPSULE.DR 1 CAP PO DAILY GI (Reported) Ondansetron HCl (Zofran) 4 MG TABLET 1 TAB PO Q8H PRN N/V (Reported) Ondansetron HCl (Zofran) 4 MG TABLET 1 TAB PO Q8H PRN N/V (Reported) Oxycodone HCl 10 MG TABLET 1 TAB PO Q8H PAIN (Reported) Potassium Chloride 20 MEQ TAB.ER.PRT 1 TAB PO QPM SUPPLEMENT (Reported) Psyllium Husk (Metamucil) (Unknown Strength) CAPSULE 1 CAP PO DAILY SUPPLEMENT (Reported) Rivaroxaban (Xarelto) 20 MG TABLET 1 TAB PO DAILY Pumonary Embolism with food Please start medication on 01/18/17 Rivaroxaban (Xarelto) 15 MG TABLET 15 MG PO BID Pulmonary Embolism Please continue this dose until 01/17/17. then continue 20mg daily. Saccharomyces Boulardii (Florastor) 250 MG CAPSULE 1 TAB PO QHS PROBIOTIC ( Reported) Tolterodine Tartrate (Detrol LA) 4 MG CAP.ER.24H 1 CAP PO DAILY BLADDER ( Reported) Trazodone HCl 50 MG TABLET 0.5 TAB PO Q12H PRN UNKNOWN (Reported) Triage Nurses Notes Reviewed? yes HPI: Patient presents for evaluation of low blood pressure and shortness of breath. The patient is unable to give substantial history but apparently he has had worsening weakness shortness of breath and low blood pressure. Past History Travel History Traveled to [place] past 21 day No Medical History Any Pertinent Medical History? 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 No Review of Systems Review of Systems Constitutional: Reports: see HPI. EENTM: Reports: no symptoms. Respiratory: Reports: no symptoms. Cardiovascular: Reports: no symptoms. GI: Reports: no symptoms. Genitourinary: Reports: no symptoms. Musculoskeletal: Reports: no symptoms. Skin: Reports: no symptoms. Neurological/Psychological: Reports: no symptoms. Hematologic/Endocrine: Reports: no symptoms. Immunologic/Allergic: Reports: no symptoms. All Other Systems: Reviewed and Negative Physical Exam Physical Exam General Appearance: SEE BELOW Comments: Gen.: Well-nourished, well-developed, moderate respiratory distress Head: Normocephalic, atraumatic. Eyes: Normal inspection bilaterally Ears: Normal inspection bilaterally Nose: Normal inspection Throat/mouth : Moist mucosa Neck: Supple, full range of motion, no goiter Heart: Rapid but otherwise Regular rate and rhythm, no murmurs rubs or gallops Lungs: Clear to auscultation bilaterally with normal air entry Chest: Nontender Back: Normal range of motion Abdomen: Soft, nontender, nondistended, normal bowel sounds, colostomy with AIR Extremities: Normal range of motion grossly of the upper extremities, flaccid paralysis of the lower extremities, diminished but otherwise equal radial pulses , no cyanosis clubbing or edema, sluggish capillary refill of all extremities. Neurologic: Cranial nerves grossly intact, speech is clear Skin: warm and dry Psychiatric: Calm, cooperative, no apparent delusions or hallucinations Core Measures ACS in differential dx? No CVA/TIA Diagnosis: No Severe Sepsis Present: Yes Septic Shock Present: Yes Progress Differential Diagnosis: SEPSIS, SEPTIC SHOCK, DEHYDRATION, VOLUME DEPLETION Plan of Care: Orders Procedure Date/time Status Telemetry/Clerk To Justice 01/17 2103 Active Patient Data 01/17 2026 Active Admit to inpatient 01/17 190 Active CULTURE,URINE 01/17 190 Active URINALYSIS 01/17 190 Complete LACTIC ACID 01/17 1857 Complete ARTERIAL BLOOD GAS (GEN) 01/17 155 Active BLOOD CULTURE 01/17 155 Active TROPONIN LEVEL 01/17 155 Complete LACTIC ACID 01/17 1557 Complete CBC WITHOUT DIFFERENTIAL 01/17 155 Complete B-TYPE NATRIURETIC PEP (BNP) 01/17 155 Complete BASIC METABOLIC PANEL 01/17 155 Complete EKG 01/17 1537 Active Laboratory Tests 01/17/17 1914: Lactic Acid 3.1 H 01/17/17 1905: Urinalysis MOD H, Urine Color YEL, Urine Clarity CLEAR, Urine pH 5.5, Ur Specific [place] 1.020, Urine Protein 100 H, Urine Ketones TRACE H, Urine Nitrite NEG, Urine Bilirubin NEG, Urine Urobilinogen 0.2, Ur Leukocyte Esterase TRACE H, Ur Microscopic SEDIMENT EXAMINED, Urine RBC 10-15 H, Urine WBC 3-5 H , Ur Epithelial Cells FEW, Urine Crystals 1+ CA OX H, Urine Bacteria FEW H, Granular Casts 1-3 H, Urine Mucus MOD H, Urine Hemoglobin SMALL H, Urine Glucose NEG 01/17/17 1615: pH 7.26 *L, pCO2 34 L, pO2 124 H, HCO3 15 L, ABG O2 Sat (Measured) 97.0, P-50 (Temp Corrected) Y, Carboxyhemoglobin 0.3 L, O2 Concentration % 60%, Temperature 100.2 H, O2 Delivery Method PRB, Phlebotomy Draw Site RIGHT RADIAL 01/17/17 1600: Anion Gap 13, Estimated GFR 55 L, BUN/Creatinine Ratio 33.8 H, Glucose 152 H, Lactic Acid 3.6 H, Calcium 9.2, Troponin I < 0.01, Egb-H-Nhuhzybencx Pept 373 H, CBC w Diff MAN DIFF ORDERED, RBC 4.16 L, MCV 78.9 L, MCH 24.5 L, RDW 21.2 H, MPV 7.6, Gran % 90.5 H, Lymphocytes % 2.2 L, Monocytes % 7.3, Eosinophils % 0, Basophils % 0 L, Absolute Granulocytes 26.9 H, Segmented Neutrophils 75, Band Neutrophils 6 H, Absolute Lymphocytes 0.6 L, Lymphocytes 3 L, Monocytes 16 H, Absolute Monocytes 2.2 H, Absolute Eosinophils 0, Absolute Basophils 0, Platelet Estimate INCREASED, Polychromasia 1+, Anisocytosis 1+, Microcytic Cells 1+, PUBS MCHC 31.0 L Microbiology 01/17 1905 URINE ROUT: Urine Culture - RECD 01/17 1635 BLOOD: Blood Culture - RECD 01/17 1600 BLOOD: Blood Culture - RECD Initial ED EKG: SINUS TACHYCARDIA WITH A VENTRICULAR RATE OF 148, NONSPECIFIC st SEGMENT CHANGES LIKELY REFLECTIVE OF DEMAND ISCHEMIA/RATE RELATED st SEGMENT CHANGES. Prior EKG: changed Rhythm Strip: sinus tachycardia Comments: 01/17/2017 4:04:31 PM patient is being bolused with intravenous fluids due to hypotension. 01/17/2017 4:35:12 PM procedure note: Suprapubic catheter replaced by me with a temperature sensing [place] without difficulty. Patient tolerated the procedure well. With fluid boluses patient's heart rate is decreasing and his blood pressure is increasing. He appears clinically much more awake and alert. 01/17/2017 6:10PM central line placed by me under sterile technique. Patient's blood pressure is essentially normal. He is awake alert and conversant and cooperative. He has easily palpable femoral pulses and his extremities remained warm and well perfused. Heart and lung exam reveals improvement in patient's tachycardia and clear lung sounds bilaterally. Patient's capillary refill has improved. 01/17/2017 8:56:12 PM patient has been treated with 5 L of normal saline and although his heart rate has improved considerably his blood pressure remained low. Levothroid has been initiated with essentially normalization of the patient's blood pressure. Clinically this patient has remained alert and oriented conversant and cooperative throughout his emergency department stay. The cause of his fever and clinical septic shock is unclear although I suspect it is the sacral decubitus ulcer. Departure Departure Disposition: STILL A PATIENT Condition: Stable Clinical Impression Primary Impression: Septic shock Referrals: SLIM COLE MD (PCP/Family) Departure Forms: Customer Survey General Discharge Information Admission Note Spoke With: SLIM COLE MD Documentation of Exam: Documentation of any treatments & extenuating circumstances including Concerns Regarding Discharge (functional status, medication knowledge or non-compliance, living conditions, etc.) that warrant an admission rather than observation: Patient is suffering septic shock and has a very high mortality. His prognosis is grave at this point. He requires ICU level care and infusion of Levophed to maintain blood pressure. Intake and output needs to be monitored. Patient's renal functions need to be monitored. Patient should also be treated with broad -spectrum antibiotics until the cause of his septic shock can be elucidated and treated specifically. Infectious disease consultation should be considered. If the patient's tachycardia does not resolve then cardiology consultation should also be considered. I feel this patient will require a multiple day hospitalization. Procedures Central Line Central Line Lumen: triple Central Line Procedure: Yes: bentadine prep?, sterile drapes applied, sterile dressing applied. Central Line Position: femoral (R) Anesthesia: PATIENT IS INSENSATE BELOW THE CHEST Complications: none Central Line Post Position: sutured, good blood return Critical Care Note Critical Care Note Critical Care Time: 75-104 min
[2017-01-17 16:42] LABS: ABSOLUTE BASOPHIL COUNT 0 /CUMM (0.0-0.2); ABSOLUTE EOSINOPHIL COUNT 0 /CUMM (0.0-0.7); ABSOLUTE GRANULOCYTE CT 26.9 /CUMM (1.4-6.5); ABSOLUTE LYMPH COUNT 0.6 /CUMM (1.2-3.4); ABSOLUTE MONOCYTE COUNT 2.2 /CUMM (0.10-0.60); BASOPHIL % 0 % (0.0-2.0); EOSINOPHIL % 0 % (0-5); GRANULOCYTE % 90.5 % (42.2-75.2); HEMATOCRIT 32.9 % (42-52); MEAN CORPUSCULAR HGB 24.5 PG (27.0-31.0); MEAN CORPUSCULAR VOLUME 78.9 FL (80.0-94.0); MEAN PLATELET VOLUME 7.6 FL (7.4-10.4); PLATELET COUNT 658 /CUMM (130-400); RBC DISTRIBUTION WIDTH 21.2 % (11.5-14.5); RED BLOOD CELL CT 4.16 /CUMM (4.70-6.10); WHITE BLOOD CELL COUNT 29.8 /CUMM (4.8-10.8)
--- NOTE | 2017-01-17 17:00 | RADIOLOGY REPORT ---
EXAMINATION: XR PORTABLE CHEST CLINICAL INFORMATION: Dyspnea, tachycardia and hypotension. COMPARISON: CXR and chest CT from 12/25/2016 TECHNIQUE: Portable AP view of the chest was obtained. FINDINGS: Lungs are slightly hypoinflated and left diaphragm remains slightly elevated. Cardiac silhouette is mildly enlarged. Sternotomy wires are intact. No pulmonary edema or pleural effusion. Again noted are linear, hazy opacities in the lung bases. These opacities likely represent atelectasis, and there is interval improvement at the left base compared the prior exam. No acute skeletal findings. IMPRESSION: 1. Cardiomegaly without pulmonary edema. 2. Hypoinflated lungs and persistent linear, hazy opacities in lower lobes - likely atelectasis - slightly improved at the left base compared to 12/25/2016.
[2017-01-17] MEDS ORDERED: ZESTRIL10 M1 PO (18:05)
[2017-01-17] MEDS ORDERED: ALBUTEROL2.5 MG/3 M INH/SOL (18:08)
[2017-01-17] MEDS ORDERED: [UNRECOGNIZED DRUG - OTHER] PO (18:13)
[2017-01-17] MEDS ORDERED: CELEXA10 M1 PO (18:19)
[2017-01-17] MEDS ORDERED: LEVAQUIN750 M1 PO (18:21)
[2017-01-17] MEDS ORDERED: DETROL LA4 M1 PO (18:22)
[2017-01-17] MEDS ORDERED: ZOFRAN4 M2 PO ×2 (18:23→18:27)
[2017-01-17] MEDS ORDERED: GUAIFENESIN DM S5 ML PO (18:26)
[2017-01-17] MEDS ORDERED: ACEPHEN650 M1 PR (18:26)
--- NOTE | 2017-01-17 23:14 | History & Physical ---
MERON HILL 01/17/17 3717: General Information and HPI MD Statement: I have seen and personally examined YOLANDA SUMMERS and documented this H&P. The patient is a 71 year old M who presented with a patient stated chief complaint of [weakness]. 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 According to patient she has been off his normal state of health up until this morning when he felt nauseous and his sputum up some whitish fluid. Patient denies any worsening cough, fever, chills, shortness of breath, palpitation, sick contacts, diarrhea( colostomy back: Same). Transfer to the emergency room initial lab pressure was 58/32 with pulse 150 respiration 24 and oxygen 83% he had a slight temperature of 100 points to. He was started on normal saline and O2 supplements. His lab values showed significant leukocytosis of 29,000 significant shift and bandemia and platelet count of 658. Sodium 134 potassium 6.2 bicarbonate 18 BUN 44 creatinine 1.3, elevated lactic acid of 3.6>>> 3.1, troponin less than 0.01 elevated proBNP of 373, AG 13. He remains persistently hypotensive despite vigorous IV fluid resuscitation. Femoral line was placed in edition 2 suprapubic catheter and patient was started on levophed and IV unasyn and tranferred to ICU. Review of system patient is complaining of: Weakness mild generalized abdominal pain Allergies/Medications Allergies: Coded Allergies: NO KNOWN ALLERGIES (10/18/16) Home Med list Acetaminophen (Q-Pap) 325 MG TABLET 2 TAB PO Q4H PRN PAIN/TEMP>/100 (Reported ) Acetaminophen (Acephen) 650 MG SUPP.RECT 1 SUPP NE Q4H PRN PAIN/TEMP>100 ( Reported) Albuterol Sulfate 2.5 MG/3 ML (0.083 %) VIAL.NEB 1 Vial INH/DARRON Q4P WHILE AWAKE-RESPIRATORY (Reported) Amino Acids/Protein Hydrolys (Pro-Stat Sugar Free Liquid) (Unknown Strength) LIQUID 30 ML PO BID SUPPLEMENT (Reported) Aspirin (Ecotrin*) 81 MG TABLET.DR 1 TAB PO DAILY HEART/BLOOD (Reported) Atorvastatin Calcium (Lipitor) 10 MG TABLET 1 TAB PO DAILY CHOLESTEROL ( Reported) Baclofen 10 MG TABLET 1 TAB PO DAILY UNKNOWN (Reported) Benazepril HCl 10 MG TABLET 1 TAB PO DAILY BP (Reported) Bisacodyl 10 MG SUPP.RECT 1 SUP RC PRN CONSTIPATION (Reported) Cyanocobalamin (Vitamin B-12) (Vitamin B-12) 100 MCG TABLET 1 TAB PO DAILY SUPPLEMENT (Reported) Ergocalciferol (Vitamin D2) (Vitamin D2) 50,000 UNIT CAPSULE 1 CAP PO Q30D SUPPLEMENT (Reported) Furosemide (Lasix) 20 MG TABLET 1 TAB PO EOD DIURETIC (Reported) Ipratropium/Albuterol Sulfate (Iprat-Albut 0.5-3(2.5) MG/3 Ml) 0.5 MG-3 MG (2.5 MG BASE)/3 ML AMPUL.NEB 1 VIAL INH TID RESPIRATORY (Reported) Levetiracetam (Keppra) 500 MG TABLET 1 TAB PO QAM UNKNOWN (Reported) Lisinopril (Zestril) 10 MG TABLET 1 TAB PO DAILY BP (Reported) Magnesium Hydroxide (Milk Of Magnesia) 400 MG/5 ML ORAL.SUSP 30 ML PO DAILY PRN CONSTIPATION (Reported) Melatonin 5 MG TABLET 1 TAB PO QHS SLEEP (Reported) Metformin HCl 500 MG TABLET 1 TAB PO BID DM (Reported) Mirtazapine 15 MG TABLET 0.5 TAB PO QHS UNKNOWN (Reported) Mometasone/Formoterol (Dulera 100 Mcg/5 Mcg Inhaler) 100 MCG-5 MCG/ACTUATION HFA.AER.AD 2 PUF INH BID RESPIRATORY (Reported) Multivitamin (Multi-Day Vitamins) 1 EACH TABLET 1 TAB PO DAILY SUPPLEMENT ( Reported) Na Phos,M-B/Na Phos,Di-Ba (Fleet Enema) 19 GRAM-7 GRAM/118 ML ENEMA 1 E RC DAILY PRN CONSTIPATION (Reported) [place]-3/Dha/Epa/Fish Oil (Fish Oil 1,000 MG Softgel) 1,000 MG (120 MG-180 MG) CAPSULE 1 CAP PO DAILY SUPPLEMENT (Reported) Omeprazole 20 MG CAPSULE.DR 1 CAP PO DAILY GI (Reported) Ondansetron HCl (Zofran) 4 MG TABLET 1 TAB PO Q8H PRN N/V (Reported) Oxycodone HCl 10 MG TABLET 1 TAB PO Q8H PAIN (Reported) Potassium Chloride 20 MEQ TAB.ER.PRT 1 TAB PO QPM SUPPLEMENT (Reported) Psyllium Husk (Metamucil) (Unknown Strength) CAPSULE 1 CAP PO DAILY SUPPLEMENT (Reported) Rivaroxaban (Xarelto) 20 MG TABLET 1 TAB PO DAILY Pumonary Embolism with food Please start medication on 01/18/17 Rivaroxaban (Xarelto) 15 MG TABLET 15 MG PO BID Pulmonary Embolism Please continue this dose until 01/17/17. then continue 20mg daily. Saccharomyces Boulardii (Florastor) 250 MG CAPSULE 1 TAB PO QHS PROBIOTIC ( Reported) Tolterodine Tartrate (Detrol LA) 4 MG CAP.ER.24H 1 CAP PO DAILY BLADDER ( Reported) Trazodone HCl 50 MG TABLET 0.5 TAB PO Q12H PRN UNKNOWN (Reported) Compliance With Home Meds: GOOD Past History Travel History Traveled to [place] past 21 day No Medical History Neurological: PARAPLEGIA STATUS POST SPINAL SHOCK POSTOP EENT: NONE Cardiovascular: CAD, hypertension, hyperlipidemia, ABDOMINAL ANEURYSM Respiratory: asthma, pulmonary embolism Gastrointestinal: GERD Hepatic: NONE Renal: neurogenic bladder, UTI Musculoskeletal: decubitis ulcer (OSTEOMYELITIS) Psychiatric: anxiety, depression Endocrine: DIABETES TYPE 2 Blood Disorders: NONE Cancer(s): prostate cancer CHILD CARE ASSOCIATE/Reproductive: NONE History of MRSA: Yes History of VRE: Yes History of CDIFF: No Influenza Vaccine: 09/04/16 Surgical History Surgical History: CABG, AAA repair x2 once 2002, and 2013 status post diverting colostomy status post suprapubic cystostomy Past Family/Social History Family History Relations & Conditions if any MOTHER FH: coronary artery disease FH: diabetes mellitus BROTHER FH: diabetes mellitus SISTER Psychosocial History Services at Home: Home Health Aide, Nursing Primary Language: Malian Functional Ability ADLs Independent: eating. Needs Assist: dressing, toileting, bathing. Ambulation: non-ambulatory IADLs Needs Assist: shopping, housework, finances, food prep, telephone, transportation, medication admin. Review of Systems Review of Systems Constitutional: Reports: see HPI, weakness. Cardiovascular: Reports: see HPI. Respiratory: Reports: no symptoms. Neurological/Psychological: Reports: see HPI. Exam & Diagnostic Data Last 24 Hrs of Vital Signs/I&O Vital Signs Date Time Temp Pulse Resp B/P Pulse O2 O2 Flow FiO2 Ox Delivery Rate 01/17 2305 94 Nasal 4.0L Cannula 01/17 2217 99.9 110 20 105/53 100 Nasal 4.5L Cannula 01/17 2123 100.0 110 20 105/50 94 Nasal 4.5L Cannula 01/18 2108 99.2 111 20 92/48 94 Nasal 4.5L Cannula 01/17 2034 100.2 109 20 100/49 93 Nasal 4.0L Cannula 01/17 2025 100.2 109 20 100/52 96 Nasal 5.0L Cannula 01/17 2010 100.0 103 20 96/59 97 Nasal 5.0L Cannula 01/17 1939 99.9 105 107/53 93 Nasal 5.0L Cannula 01/17 1929 99.9 106 20 88/55 97 Nasal 5.0L Cannula 01/17 192 99.7 108 24 101/50 97 Nasal 5.0L Cannula 01/17 191 99.7 109 20 86/44 96 Nasal 5.0L Cannula 01/17 1908 99.7 103 22 84/47 95 Nasal 5.0L Cannula 01/17 1903 99.7 115 22 72/39 01/17 1903 99.7 115 22 72/39 95 Nasal 5.0L Cannula 01/17 1835 99.7 117 24 73/42 94 Nasal 5.0L Cannula 01/17 1730 99.3 118 24 91/52 93 Nasal 4.0L Cannula 01/17 1719 99.5 122 24 83/46 94 Nasal 4.0L Cannula 01/17 1710 99.7 124 20 72/48 96 Nasal 4.0L Cannula 01/17 1655 93 Nasal 6.0L Cannula 01/17 1654 99.5 125 20 88/51 93 Nasal 6.0L Cannula 01/17 1647 98.6 127 22 72/42 93 Nasal 6.0L Cannula 01/17 1622 128 22 70/34 93 Part 10L ReBreather 01/17 1605 100.2 138 24 64/40 93 Non 10L ReBreather 01/17 1555 150 24 58/32 83 Nasal 4.0L Cannula Physical Exam General Appearance Alert, Cooperative, No Acute Distress Skin Chronic stage 4 decubitus ulcer HEENT Atraumatic Neck No JVD Cardiovascular Normal S1, Normal S2 Lungs Clear to Auscultation, Normal Air Movement Abdomen Soft, mild generalized tenderness, , colostomy bag, supra pubic catheter Neurological Normal Gait Extremities No Cyanosis, No Edema Vascular Normal Pulses, Pulses Symmetrical Body Front and Back (Adult) 1) femoral line Colostomy bag Suprapubic cath 2) chronic decubitus Diagnostic Data EKG Results Normal sinus no acute ST T change CXR Results 1. Cardiomegaly without pulmonary edema. 2. Hypoinflated lungs and persistent linear, hazy opacities in lower lobes - likely atelectasis - slightly improved at the left base compared to 12/25/2016. Assessment/Plan Assessment: 71-year-old with multiple comorbidities and risk factors was admitted for septic shock. Chest x-ray: 1.Cardiomegaly without pulmonary edema. 2. Hypoinflated lungs and persistent linear, hazy opacities in lower lobes - likely atelectasis - slightly improved at the left base compared to 12/25/2016. Pertinent Data eukocytosis of 29,000 significant shift and bandemia and platelet count of 658. Sodium 134 potassium 6.2 bicarbonate 18 BUN 44 creatinine 1.3, elevated lactic acid of 3.6>>> 3.1, troponin less than 0.01 elevated proBNP of 373, AG 13. List of active problems Septic shock: Patient has sepsis criteria positive and elevated SOFA score; underlying gap metabolic acidosis secondary to lactic acidosis. Possible source of infection chronic decubitus ulcers stage IV and history of osteomyelitis and growing Vanco resistance enterococcus and MRSA. His urine was also active however he has a chronic [place] and I'm not very impressed that this current admission is related to urinary tract infection. Chest x-ray was clear there is no evidence of pneumonia. Patient finished his course of Daptomycin for osteo and Po levoquin for pneumonia. * Admit to ICU * On levohed for hypotension; titrate for MEP of 65 * Restrict ins and outs * Continue IV hydration with normal saline goal to decrease lactic acidosis 20% per hour(efficacy of resuscitation); continue IV hydration NS 75 ml/h and goals set for IV hydration his urine outputs 0.5 mL per KG per hour; Goal for CVP is 8 -10 * Trend lactic acid * Follow microbiology results * received one dose of IV Unasyn in the ED * Got one dose of Vanco and one dose of Ceftazidime * Recent Hx of growing VRE Nov 2016 and was treated * I would hold off Abx for now and have morning team contact Dr. Smyth for the Abx of Choice for him * Consult infectious disease in the a.m. * Repeat labs in the a.m. 2.ERICKA with elevated Cr 1.3: possibly in the setting of sepsis and low blood pressure. * continue hydration * repeat labs in the am * avoid NSAID and other nephrotoxic medication 3.History of diabetes mellitus: * NPO * Finger stick Q6 * Novolin for NPO patient Q6 4.History of hypertension and lipidemia,With coronary artery disease * Hold Antihypertenssive medication 5. History of COPD: * TRC Q4 as needed * Duoneb Q4 * O2 supplement ( 4 lit is baseline) for O2 sat 92-94% 6. History of anxiety and depression * Trazodone at bedtime 7. Mild pain and moderate pain * IV tylenol and IV morphine 8. hX of PE * continue Xarelto 20 mg daily Full code As Ranked By This Provider Problem List: 1. Diabetes 2. Septic shock 3. Pulmonary embolism 4. Hypoxia 5. Hemiplegia 6. S/P CABG (coronary artery bypass graft) 7. S/P AAA (abdominal aortic aneurysm) repair 8. Decubitus ulcer 9. Leukocytosis Core Measures/Miscellaneous Acute Coronary Syndrome ACS Diagnosis: No Cerebrovascular Accident CVA/TIA Diagnosis: No Congestive Heart Failure CHF Diagnosis: No Venous Thromboembolism VTE Risk Factors: Acute medical illness, Age > 40, CHF or Resp failure, Immobility, paresis No [facility] VTE prophylaxis d/t: No contraindications No VTE Pharm Prophylaxis d/t: No contraindications VTE Diagnosis: No VTE Type: NONE VTE Confirmed by (Test): NONE Severe Sepsis Severe Sepsis Present: Yes Septic Shock Septic Shock Present: Yes Miscellaneous Documentation Attending Case Discussed With: SLIM COLE MD Primary Care Physician: SLIM COLE MD Patient sees these Specialists survey associate Level of Patient Care: Critical Care (CRI) [facility] 01/18[facility] 0931: Attending MD Review Statement Attending Statement Attending MD Statement: examined this patient, discuss w/resident/PA/IGNITER ASSEMBLER, agreed w/resident/PA/IGNITER ASSEMBLER, reviewed EMR data (avail)
[2017-01-18] VITALS: BP 117/53
[2017-01-18 02:00] VITALS: BP 95/44
[2017-01-18 05:38] LABS: ABSOLUTE BASOPHIL COUNT 0 /CUMM (0.0-0.2); ABSOLUTE EOSINOPHIL COUNT 0 /CUMM (0.0-0.7); ABSOLUTE LYMPH COUNT 0.8 /CUMM (1.2-3.4); ABSOLUTE MONOCYTE COUNT 1.2 /CUMM (0.10-0.60); BASOPHIL % 0 % (0.0-2.0); EOSINOPHIL % 0 % (0-5); GRANULOCYTE % 92.9 % (42.2-75.2); HEMATOCRIT 28.2 % (42-52); MEAN CORPUSCULAR HGB 24.6 PG (27.0-31.0); MEAN CORPUSCULAR HGB CONC 31.2 G/DL (33.0-37.0); MEAN CORPUSCULAR VOLUME 78.8 FL (80.0-94.0); MEAN PLATELET VOLUME 7.1 FL (7.4-10.4); PLATELET COUNT 560 /CUMM (130-400); RBC DISTRIBUTION WIDTH 20.9 % (11.5-14.5); RED BLOOD CELL CT 3.58 /CUMM (4.70-6.10); WHITE BLOOD CELL COUNT 27.9 /CUMM (4.8-10.8)
--- NOTE | 2017-01-18 07:09 | Cons- CRCU ---
TANNER MULLIGAN,JUANA 01/18/17 0708: General Information and HPI Consulting Request Date of Consult: 01/18/17 Requested By: Dr. Liu Reason for Consult: Septic shock History of Present Illness: 71-year-old male with PMH paraplegia, with a chronic stage IV sacral decubitus with wound vac, ostomy and suprapubic catheter in place, MRSA, VRE, completed abx course with unasyn, then daptomycin, and PE with EF% >60% ,on xarelto, [facility], nausea, cough, and hypotension. Came in with BP of 58/32 and pulse rate of 150, given fluid boluses, and required pressor support with levophed in the ICU. White count was 29k with bands, source of sepsis still unclear. He was given unasyn once in the ED. He was recently treated for PNA with levaquin at the facility. Due to concerns of HCAP, ceftazidime was given as well. He did not receive vancomycin. Of note, he grew pseudomonas in the urine about 3 weeks prior to admission that was resistant to ceftaz and zosyn. It is likely a colonization, but also implies he is colonized by pseudomonas in the gut. If indeed the source is his sepsis is gut sagar, he would not have been adequately covered with the ceftaz. Also did not get MRSA coverage as vanco not given. Since he has come to ICU, max temp 99.4 IN 98-105 RR 16-30 Systolic bp 45-149 diastolic bp 45-54 +6450 -400 Lactic acid 3.6 --> 1.8 Hb 10.2 --> 8.8 (baseline) WBC 29 --> 27.9 with 10 bands K 6.2 --> 5.2 BUN/cr: 44/1.3 --> 42/1.1 His BP has significantly improved on the levophed, hence we are weaning him off the levophed. Still on 150ml/hr NS. When I saw him this morning, he was alert, orientedX3, appears comfortable. He reports cough but denies sputum, but also stated that the cough has been unchanged from baseline. He was feeling nauseous and vomited small amount of bilious fluid. He denies pain anywhere. When ID evaluated him, he noted abdominal tenderness (right more than left). Will repeat CXR today. Will get stat BEP, check amylase, lipase, alk phos. If kidney function improved, will get CT abd, pelvis, with contrast. Will also try to get PICC line inserted to start heparin drip given hx of PE, and likely prolonged abx course. Xarelto has not been given since admission. His femoral line would be removed as soon as possible. Allergies/Medications Home Med List: Acetaminophen (Q-Pap) 325 MG TABLET 2 TAB PO Q4H PRN PAIN/TEMP>/100 (Reported ) Acetaminophen (Acephen) 650 MG SUPP.RECT 1 SUPP IN Q4H PRN PAIN/TEMP>100 ( Reported) Albuterol Sulfate 2.5 MG/3 ML (0.083 %) VIAL.NEB 1 Vial INH/DARRON Q4P WHILE AWAKE-RESPIRATORY (Reported) Amino Acids/Protein Hydrolys (Pro-Stat Sugar Free Liquid) (Unknown Strength) LIQUID 30 ML PO BID SUPPLEMENT (Reported) Aspirin (Ecotrin*) 81 MG TABLET.DR 1 TAB PO DAILY HEART/BLOOD (Reported) Atorvastatin Calcium (Lipitor) 10 MG TABLET 1 TAB PO DAILY CHOLESTEROL ( Reported) Baclofen 10 MG TABLET 1 TAB PO DAILY UNKNOWN (Reported) Benazepril HCl 10 MG TABLET 1 TAB PO DAILY BP (Reported) Bisacodyl 10 MG SUPP.RECT 1 SUP RC PRN CONSTIPATION (Reported) Cyanocobalamin (Vitamin B-12) (Vitamin B-12) 100 MCG TABLET 1 TAB PO DAILY SUPPLEMENT (Reported) Ergocalciferol (Vitamin D2) (Vitamin D2) 50,000 UNIT CAPSULE 1 CAP PO Q30D SUPPLEMENT (Reported) Furosemide (Lasix) 20 MG TABLET 1 TAB PO EOD DIURETIC (Reported) Ipratropium/Albuterol Sulfate (Iprat-Albut 0.5-3(2.5) MG/3 Ml) 0.5 MG-3 MG (2.5 MG BASE)/3 ML AMPUL.NEB 1 VIAL INH TID RESPIRATORY (Reported) Levetiracetam (Keppra) 500 MG TABLET 1 TAB PO QAM UNKNOWN (Reported) Lisinopril (Zestril) 10 MG TABLET 1 TAB PO DAILY BP (Reported) Magnesium Hydroxide (Milk Of Magnesia) 400 MG/5 ML ORAL.SUSP 30 ML PO DAILY PRN CONSTIPATION (Reported) Melatonin 5 MG TABLET 1 TAB PO QHS SLEEP (Reported) Metformin HCl 500 MG TABLET 1 TAB PO BID DM (Reported) Mirtazapine 15 MG TABLET 0.5 TAB PO QHS UNKNOWN (Reported) Mometasone/Formoterol (Dulera 100 Mcg/5 Mcg Inhaler) 100 MCG-5 MCG/ACTUATION HFA.AER.AD 2 PUF INH BID RESPIRATORY (Reported) Multivitamin (Multi-Day Vitamins) 1 EACH TABLET 1 TAB PO DAILY SUPPLEMENT ( Reported) Na Phos,M-B/Na Phos,Di-Ba (Fleet Enema) 19 GRAM-7 GRAM/118 ML ENEMA 1 E RC DAILY PRN CONSTIPATION (Reported) [place]-3/Dha/Epa/Fish Oil (Fish Oil 1,000 MG Softgel) 1,000 MG (120 MG-180 MG) CAPSULE 1 CAP PO DAILY SUPPLEMENT (Reported) Omeprazole 20 MG CAPSULE.DR 1 CAP PO DAILY GI (Reported) Ondansetron HCl (Zofran) 4 MG TABLET 1 TAB PO Q8H PRN N/V (Reported) Oxycodone HCl 10 MG TABLET 1 TAB PO Q8H PAIN (Reported) Potassium Chloride 20 MEQ TAB.ER.PRT 1 TAB PO QPM SUPPLEMENT (Reported) Psyllium Husk (Metamucil) (Unknown Strength) CAPSULE 1 CAP PO DAILY SUPPLEMENT (Reported) Rivaroxaban (Xarelto) 20 MG TABLET 1 TAB PO DAILY Pumonary Embolism with food Please start medication on 01/18/17 Rivaroxaban (Xarelto) 15 MG TABLET 15 MG PO BID Pulmonary Embolism Please continue this dose until 01/17/17. then continue 20mg daily. Saccharomyces Boulardii (Florastor) 250 MG CAPSULE 1 TAB PO QHS PROBIOTIC ( Reported) Tolterodine Tartrate (Detrol LA) 4 MG CAP.ER.24H 1 CAP PO DAILY BLADDER ( Reported) Trazodone HCl 50 MG TABLET 0.5 TAB PO Q12H PRN UNKNOWN (Reported) Review of Systems Review of Systems Constitutional: Reports: see HPI, fever, weakness. Denies: chills. EENTM: Denies: visual changes. Cardiovascular: Denies: chest pain. Respiratory: Reports: cough, short of breath. Denies: sputum production. GI: Denies: abdominal pain. Genitourinary: Denies: dysuria. 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 Long-Term Facility Services at Home: Home Health Aide, Nursing Primary Language: Latvian Smoking Status: Never Smoked Functional Ability ADLs Independent: eating. Needs Assist: dressing, toileting, bathing. Ambulation: non-ambulatory IADLs Needs Assist: shopping, housework, finances, food prep, telephone, transportation, medication admin. Exam & Diagnostic Data Last 24 Hrs of Vital Signs/I&O Vital Signs Date Time Temp Pulse Resp B/P Pulse O2 O2 Flow FiO2 Ox Delivery Rate 01/18 0754 114 120/50 01/18 0400 96 Nasal 4.0L Cannula 01/18 0200 102 16 95/44 01/18 0101 99 109/51 01/18 0000 98.6 105 17 117/53 01/18 0000 98.6 105 17 117/53 93 Nasal 4.0L Cannula 01/18 0000 93 Nasal 4.0L Cannula 01/175 94 Nasal 4.0L Cannula 01/17 2217 99.9 110 20 105/53 100 Nasal 4.5L Cannula 01/17 2123 100.0 110 20 105/50 94 Nasal 4.5L Cannula 01/18 2108 99.2 111 20 92/48 94 Nasal 4.5L Cannula 01/17 2034 100.2 109 20 100/49 93 Nasal 4.0L Cannula 01/17 2025 100.2 109 20 100/52 96 Nasal 5.0L Cannula 01/17 2010 100.0 103 20 96/59 97 Nasal 5.0L Cannula 01/17 1939 99.9 105 107/53 93 Nasal 5.0L Cannula 01/17 1929 99.9 106 20 88/55 97 Nasal 5.0L Cannula 01/17 1920 99.7 108 24 101/50 97 Nasal 5.0L Cannula 01/17 1915 99.7 109 20 86/44 96 Nasal 5.0L Cannula 01/17 1908 99.7 103 22 84/47 95 Nasal 5.0L Cannula 01/17 1903 99.7 115 22 72/39 01/17 1903 99.7 115 22 72/39 95 Nasal 5.0L Cannula 01/17 1835 99.7 117 24 73/42 94 Nasal 5.0L Cannula 01/17 1730 99.3 118 24 91/52 93 Nasal 4.0L Cannula 01/17 1719 99.5 122 24 83/46 94 Nasal 4.0L Cannula 01/17 1710 99.7 124 20 72/48 96 Nasal 4.0L Cannula 01/17 1655 93 Nasal 6.0L Cannula 01/17 1654 99.5 125 20 88/51 93 Nasal 6.0L Cannula 01/17 1647 98.6 127 22 72/42 93 Nasal 6.0L Cannula 01/17 1622 128 22 70/34 93 Part 10L ReBreather 01/17 1605 100.2 138 24 64/40 93 Non 10L ReBreather 01/17 1555 150 24 58/32 83 Nasal 4.0L Cannula Intake & Output 01/18 1600 01/18 0800 01/18 0000 Intake Total 1450 5000 Output Total 401 Balance 1049 5000 Intake, IV 1350 5000 Intake, Oral 100 Output, Stool 1 Output, Urine 400 Patient 78.925 kg 78.925 kg Weight Physical Exam General Appearance: alert, awake, comfortable Head: normal appearance Eyes: Bilateral: normal appearance. Ears, Nose, Throat: hearing grossly normal Neck: normal inspection Respiratory: diffuse rhonchi, some crackles at the bases Cardiovascular: regular rate/rhythm, tachycardia Gastrointestinal: normal bowel sounds, soft, non-tender Last 48 Hrs of Labs/Perfecto: Laboratory Tests 01/18/17 0510: ESR W[place]gren 66 H 01/18/17 0510: Anion Gap 11, Estimated GFR > 60, Glucose 128 H, Calcium 8.1 L, Phosphorus 4.9 H, Magnesium 2.0, Total Bilirubin 0.5, AST 21, ALT 31, Albumin 2.2 L, CBC w Diff MAN DIFF ORDERED, RBC 3.58 L, MCV 78.8 L, MCH 24.6 L, RDW 20.9 H, MPV 7.1 L, Gran % 92.9 H, Lymphocytes % 2.9 L, Monocytes % 4.2, Eosinophils % 0, Basophils % 0 L, Absolute Granulocytes 26.0 H, Segmented Neutrophils 85 H, Band Neutrophils 10 H, Absolute Lymphocytes 0.8 L, Lymphocytes 2 L, Monocytes 3, Absolute Monocytes 1.2 H, Absolute Eosinophils 0, Absolute Basophils 0, Platelet Estimate INCREASED, Polychromasia 1+, Hypochromic-Microcytic 1+, Poikilocytosis 1+, Anisocytosis 1+, Microcytic Cells 1+, Ovalocytes 1+, Stomatocytes FEW, PUBS MCHC 31.2 L, Fld Total RBCs Counted 100 01/18/17 0030: Anion Gap 8, Estimated GFR > 60, Glucose 167 H, Lactic Acid 1.8, Calcium 8.4, Phosphorus 5.6 H, Magnesium 1.9, Total Bilirubin 0.5, AST 22, ALT 30, Albumin 2.3 L 01/17/17 1914: Lactic Acid 3.1 H 01/17/175: Urinalysis MOD H, Urine Color YEL, Urine Clarity CLEAR, Urine pH 5.5, Ur Specific [place] 1.020, Urine Protein 100 H, Urine Ketones TRACE H, Urine Nitrite NEG, Urine Bilirubin NEG, Urine Urobilinogen 0.2, Ur Leukocyte Esterase TRACE H, Ur Microscopic SEDIMENT EXAMINED, Urine RBC 10-15 H, Urine WBC 3-5 H , Ur Epithelial Cells FEW, Urine Crystals 1+ [place] OX H, Urine Bacteria FEW H, Granular Casts 1-3 H, Urine Mucus MOD H, Urine Hemoglobin SMALL H, Urine Glucose NEG 01/17/17 1615: pH 7.26 *L, pCO2 34 L, pO2 124 H, HCO3 15 L, ABG O2 Sat (Measured) 97.0, P-50 (Temp Corrected) Y, Carboxyhemoglobin 0.3 L, O2 Concentration % 60%, Temperature 100.2 H, O2 Delivery Method PRB, Phlebotomy Draw Site RIGHT RADIAL 01/17/17 1600: Anion Gap 13, Estimated GFR 55 L, BUN/Creatinine Ratio 33.8 H, Glucose 152 H, Lactic Acid 3.6 H, Calcium 9.2, Troponin I < 0.01, Ctu-W-Aimgjbwndsi Pept 373 H, CBC w Diff MAN DIFF ORDERED, RBC 4.16 L, MCV 78.9 L, MCH 24.5 L, RDW 21.2 H, MPV 7.6, Gran % 90.5 H, Lymphocytes % 2.2 L, Monocytes % 7.3, Eosinophils % 0, Basophils % 0 L, Absolute Granulocytes 26.9 H, Segmented Neutrophils 75, Band Neutrophils 6 H, Absolute Lymphocytes 0.6 L, Lymphocytes 3 L, Monocytes 16 H, Absolute Monocytes 2.2 H, Absolute Eosinophils 0, Absolute Basophils 0, Platelet Estimate INCREASED, Polychromasia 1+, Anisocytosis 1+, Microcytic Cells 1+, PUBS MCHC 31.0 L Assessment/Plan Impression/Plan: 71-year-old male with PMH paraplegia, with a chronic stage IV sacral decubitus with wound vac, ostomy and suprapubic catheter in place, MRSA, VRE treated with daptomycin, and PE with EF% >60% ,on xarelto, CAD sp CABG, AAA sp repairX2, HTN, HLD, anxiety, depression, DM, prostate cancer, [facility], nausea, cough, and hypotension. Came in with BP of 58/32 and pulse rate of 150, given fluid boluses, and required pressor support with levophed in the ICU. White count was 29k with bands. Source of sepsis unclear but include: abdominal process (keep in mind his UC grew pseudomonas which implies gut colonization as well, resistant to ceftaz and zosyn), urinary tract infection (chronic suprapubic catheter), c diff ( significant abx exposure, but no loose stool noted in the colostomy bag), ischemic colitis (hypotension, but no blood noted in the colostomy bag), stage 4 decubitus ulcer with wound vac draining serosanguinous fluid (has necrotic edges , but otherwise no obvious purulent drainage), pancreatitis, biliary process ( tender RUQ, had cholecystectomy). Lines: Femoral line day # 2 (will remove once PICC line inserted) Suprapubic catheter (from 2 months ago?) Problem list: # Septic shock # Nausea and bilious vomiting, abdominal tenderness ID: Septic shock - Came in with 58/32 and pulse rate of 150, ERICKA (cr 1.3, baseline 0.8), WBC 29K with bands, LA 3.6. K 6.2, Na 134. * Consult surgery regarding debridement and wound vac removal/replacement. Spoke to Dr. Jung who does not recommend debridement of the ulcer as it does not look infected and unlikely to be the source of sepsis. His CT findings would likely show findings consistent with osteomyelitis but it still will not be an indication to debride. Wound vac has been removed. Although Dr. Jung recommends wound vac placement, we don't have wound care nurse available until Saturday, and he does not feel that surgical PA needs to do it urgently. He recommends wet to dry dressing for now, and Dr. Guzman also recommended dakins daily and PRN. * Consult ID * Follow up cx * Consider consulting urology regarding leaking suprapubic catheter * Follow up CT abdomen, pelvis, and chest (with contrast if kidney function improved, otherwise will do it without contrast. * Follow up repeat xray * Was given unasyn and ceftazidime in ED. Meropenem 1q8 started 01/18/17, today is abx day # 2. Cardiovascular # Hypotension, consistent with septic shock - Came in with BP 58/32, given 6L NS bolus, and was started on levophed, BP has improved. * Wean off levophed * On 150ml/hr maintenance fluid * NPO # Hx of HTN * Holding 10 mg lisinopril daily and lasix 20 mg q48 Respiratory # Hx of PE * Hold xarelto 20 mg daily, start heparin drip without bolus after placing picc line, his last dose of xarelto was 01/17/17. Endocrine # DM * On NPO sliding scale Heme # Chronic anemia - Hb at baseline Alimentary * NPO * bilious vomitus * Reglan for nausea # Continue home meds Keppra ASA Lipitor Trazodone Melatonin Percocet Q4P Diet: NPO IVF: 150ml/hr NS DVT ppx: alps FULL CODE Consults: surgery, ID, CRCU, consider urology Labs: ICU, CBC critically ill Consult Acknowledgment - Thank you for your consult request. NATALY RODRÍGUEZ 01/18/17 1306: General Information and HPI History of Present Illness: Please note : BELOW NOTE WRITTEN BY DR BROTHERS Allergies/Medications Allergies: Coded Allergies: NO KNOWN ALLERGIES (12/29/16) Assessment/Plan Other Findings/Comments: Seen and examined independently This is a patient with paraplegia following spinal shock after surgery from an aortic aneurysm 4 years ago since then he has had a suprapubic catheter diverting colostomy, chronic sacral decubiti with underlying osteomyelitis with multiple courses of antibiotics recently, recent pulmonary embolism on xeralto, recently treated with levofloxacin for 2 weeks for pneumonia versus UTI as he had Pseudomonas came into the hospital with shock. Since then he has been on vasopressors. He had received a femoral line and subsequently was fluid resuscitated. He denies any nausea but he does have abdominal discomfort and occasional cough. He also has urine leaking around the suprapubic cystotomy tube. Since coming here his blood pressure has been slowly improving but he continues to be hypotensive and in shock. SIGNIFICANT all Data as noted above chest x-ray showed elevated left hemidiaphragm bilateral atelectasis Previous CT done in December did reveal bilateral multiple pulmonary embolism and a wedge infarct with by basilar up atelectasis Lower extremity Doppler before has been unremarkable Previous cultures reviewed Blood work reviewed which showed that his BUN/creatinine was elevated upon admission after fluid resuscitation it has improved 70 and gap was normal his lactic acid upon admission was normal His albumin was low his ABG initially which was done yesterday was 726/34/124. Physical Exam Other Physical Findings: He is awake and alert in no acute distress. MAXIMUM TEMPERATURE 100.2. Skin reveals no rash. HEENT exam is negative. Neck is supple with no adenopathy. Lungs bilateral crackles. Heart regular rhythm with no murmur. Abdomen is soft , tender on palpation over the upper abdomen, right greater than left, with no guarding or rebound, positive bowel sounds; colostomy with no stool in the bag; suprapubic cystostomy in place with no inflammation at the site. Back large, deep sacral decubitus, with minimal necrosis at the edges but with no necrosis or probing to bone and with no surrounding erythema; no CVA tenderness. Extremities no cyanosis, clubbing or edema; right femoral triple catheter in place with no inflammation at the site. Neuro paraplegia. IMPRESSION This is a 71-year-old gentleman with previous history of spinal stroke after abdominal aortic aneurysm repair leading to paraplegia, indwelling [place] with suprapubic catheter, nonhealing decubiti ulcer, multiple antibiotics for polymicrobial sacral osteomyelitis now, previous diversion colostomy, diabetes, hypertension, hyperlipidemia, coronary artery disease, hypertension, GERD, anxiety and depression, recent bilateral pulmonary embolism, was on Xeralto now comes in with Septic shock most likely related to polymicrobial sepsis from the sacral decubiti. Patient does seem to have abdominal pain and discomfort rule out any intra-abdominal pathology No clinical evidence suggestive of pneumonia Previous bilateral pulmonary embolism now on adequate anticoagulation unlikely that he has ongoing venous thromboembolism Diabetes, hypertension, hyperlipidemia, anxiety and depression stable Acute on chronic renal insufficiency now creatinine returning back to normal Paraplegia Probable malignancy in the kidney as noted in the previous CT Previous thrombocytosis may be related to his underlying pathophysiology which needs to be followed RECOMMENDATION Continue gentle fluids Wean vasopressors Antibiotics per infectious disease Surgical consult for sacral decubiti evaluation CT scan of the chest abdomen pelvis with contrast Plastics to see Urology consult in the future PICC line if possible Follow-up cultures Remove femoral line once the PICC line is in Hold Xeralto and switch him to heparin without a bolus Patient critically ill total time spent 40 minutes Consult Acknowledgment - Thank you for your consult request. DENEEN MULLIGAN,[facility] 01/18/17 9865: Assessment/Plan Consult Acknowledgment - Thank you for your consult request.
[2017-01-18 08:00] VITALS: BP 126/50
--- NOTE | 2017-01-18 09:18 | Admission Certification ---
Admission Certification Certification Statement - As attending physician, I certify that at the time of - admission, based on clinical presentation, severity of - symptoms, need for further diagnostic testing and - therapeutic interventions, and risk of adverse outcomes - without in-hospital treatment, in my clinical assessment, - this patient requires an acute hospital stay for a minimum - of two nights or longer. I have also considered psychsocial - factors such as support system, advanced age, financial - issues, cognitive issues, and failed out-patient treatments, - past re-admission history, safety of patient, and lack of - compliance as applicable. Specific rationale supporting this admission is: septic shock
--- NOTE | 2017-01-18 09:31 | PN- Att Addend ---
Attending Addendum Attending Brief Note Patient is awake and alert but complains of back pain. Also reports cough that is productive. 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 He had completed antibiotics 2 weeks prior to this presentation when he was noticed to have hypotension and respiratory distress. Patient presented with septic shock, metabolic acidosis and acute renal failure. At this point culture is pending and chest x-ray is negative. Sacral decubitus likely source of sepsis. With Levophed and aggressive fluid resuscitation his blood pressure has improved and kidney function is back to normal. We will taper off pressors and continue gentle hydration watching urine output closely. Surgical evaluation for removal of wound VAC, surgical exploration and deep tissue culture. In the meantime will involve ID for appropriate antibiotic recommendation. Plan Surgical consult Taper Levophed Continue IV fluids Follow cultures Antibiotic choice as per ID Monitor urine output Wound and critical care consult Continues xarelto and other home meds Current Medications Sig/Mey Start time Last Medication Dose Route Stop Time Status Admin Acetaminophen 1,000 MG Q6P PRN 01/18 0045 DC 01/18 N/A 1 UNIT IV 0044 Acetaminophen 1,000 MG Q6P PRN 01/18 0045 AC N/A 1 UNIT IV Ampicillin Sodium/ 0 .STK-MED ONE 01/17 1646 DC Sulbactam Sodium .ROUTE Ampicillin Sodium/ 3,000 MG ONCE ONE 01/17 1615 DC 01/17 Sulbactam Sodium IV 01/17 1644 1648 Sodium Chloride 100 ML Aspirin 81 MG DAILY 01/18 1000 AC PO Atorvastatin Calcium 10 MG 1700 01/18 1700 AC PO Ceftazidime 1,000 MG Q12 01/18 0030 DC 01/18 IV 0102 Guaifenesin 10 ML Q6P PRN 01/18 0215 AC 01/18 PO 0812 Guaifenesin/Codeine 10 ML Q6P PRN 01/18 0215 CAN Phosphate PO Insulin Human Regular 0 Q6 01/18 0021 AC 01/18 SC 0050 Levetiracetam 500 MG DAILY 01/18 1000 AC PO Melatonin 5 MG AT BEDTIME 01/18 2200 AC PO Metoclopramide HCl 10 MG ONCE ONE 01/18 0800 DC 01/18 IV 01/18 0801 0808 Morphine Sulfate 1 MG Q6-PRN PRN 01/18 0045 AC IV Norepinephrine 4 MG Q12H 01/18 0800 AC 01/18 Sodium Chloride 250 ML IV 0754 Norepinephrine 4 MG Q24H 01/17 1900 DC 01/18 Sodium Chloride 250 ML IV 0101 Norepinephrine 0 .STK-MED ONE 01/17 1856 DC IV Omeprazole 40 MG DAILY AC 01/18 0700 AC PO Oxycodone/ 1 TAB Q4P PRN 01/18 0930 UNVr Acetaminophen PO Rivaroxaban 20 MG DAILY 01/18 1000 AC PO Sodium Chloride 1,000 ML Q13H 01/17 2345 AC 01/18 IV 0812 Sodium Chloride 1,000 ML BOLUS ONE 01/17 2115 DC 01/17 IV 01/17 2214 1612 Sodium Chloride 1,000 ML BOLUS ONE 01/17 2115 DC 01/17 IV 01/17 2214 1635 Sodium Chloride 1,000 ML BOLUS ONE 01/17 2115 DC 01/17 IV 01/17 2214 1653 Sodium Chloride 1,000 ML BOLUS ONE 01/17 2115 DC 01/17 IV 01/17 2214 1728 Sodium Chloride 1,000 ML ONCE ONE 01/17 2115 DC 01/17 IV 01/18 0214 1745 Sodium Chloride 1,000 ML BOLUS ONE 01/17 2115 DC 01/17 IV 01/17 2214 1734 Trazodone HCl 25 MG Q12H PRN 01/18 0015 AC PO Vancomycin HCl 1,000 MG DAILY 01/18 1000 CAN Sodium Chloride 250 ML IV Laboratory Tests 01/18 01/18 01/18 01/17 0510 0510 0030 1914 Chemistry Sodium (137 - 145 mmol/L) 138 136 L Potassium (3.5 - 5.1 mmol/L) 5.2 H 5.4 H Chloride (98 - 107 mmol/L) 111 H 111 H Carbon Dioxide (22 - 30 mmol/L) 16 L 17 L Anion Gap (5 - 16) 11 8 BUN (9 - 20 mg/dL) 42 H 42 H Creatinine (0.7 - 1.2 mg/dL) 1.1 1.1 Estimated GFR (>60 ml/min) > 60 > 60 Glucose (65 - 99 mg/dL) 128 H 167 H Lactic Acid (0.7 - 2.1 mmol/L) 1.8 3.1 H Calcium (8.4 - 10.2 mg/dL) 8.1 L 8.4 Phosphorus (2.5 - 4.5 mg/dL) 4.9 H 5.6 H Magnesium (1.6 - 2.3 mg/dL) 2.0 1.9 Total Bilirubin (0.2 - 1.3 mg/dL) 0.5 0.5 AST (17 - 59 U/L) 21 22 ALT (21 - 72 U/L) 31 30 Albumin (3.5 - 5.0 g/dL) 2.2 L 2.3 L Hematology CBC w Diff MAN DIFF ORDERED WBC (4.8 - 10.8 /CUMM) 27.9 H RBC (4.70 - 6.10 /CUMM) 3.58 L Hgb (14.0 - 18.0 G/DL) 8.8 L Hct (42 - 52 %) 28.2 L MCV (80.0 - 94.0 FL) 78.8 L MCH (27.0 - 31.0 PG) 24.6 L RDW (11.5 - 14.5 %) 20.9 H Plt Count (130 - 400 /CUMM) 560 H MPV (7.4 - 10.4 FL) 7.1 L Gran % (42.2 - 75.2 %) 92.9 H Lymphocytes % (20.5 - 51.1 %) 2.9 L Monocytes % (1.7 - 9.3 %) 4.2 Eosinophils % (0 - 5 %) 0 Basophils % (0.0 - 2.0 %) 0 L Absolute Granulocytes (1.4 - 6.5 /CUMM) 26.0 H Segmented Neutrophils (42.2 - 75.2 %) 85 H Band Neutrophils (0.0 - 5.0 %) 10 H Absolute Lymphocytes (1.2 - 3.4 /CUMM) 0.8 L Lymphocytes (20.5 - 51.1 %) 2 L Monocytes (1.7 - 9.3 %) 3 Absolute Monocytes (0.10 - 0.60 /CUMM) 1.2 H Absolute Eosinophils (0.0 - 0.7 /CUMM) 0 Absolute Basophils (0.0 - 0.2 /CUMM) 0 Platelet Estimate (ADEQUATE) INCREASED Polychromasia 1+ Hypochromic-Microcytic 1+ Poikilocytosis 1+ Anisocytosis 1+ Microcytic Cells 1+ Ovalocytes 1+ Stomatocytes FEW PUBS MCHC (33.0 - 37.0 G/DL) 31.2 L ESR Westergren (0 - 10 MM) 66 H Other Body Source Fld Total RBCs Counted (%) 100 01/17 01/17 1905 1615 Blood Gas pH (7.35 - 7.45 PH) 7.26 *L pCO2 (35 - 45 TORR) 34 L pO2 (80 - 100 TORR) 124 H HCO3 (21 - 28 MEQ/L) 15 L ABG O2 Sat (Measured) (>96.0 %) 97.0 P-50 (Temp Corrected) Y Carboxyhemoglobin (1.5 - 5.0 %) 0.3 L O2 Concentration % 60% Temperature (97.0 - 100.0 FARH) 100.2 H O2 Delivery Method PRB Miscellaneous Phlebotomy Draw Site RIGHT RADIAL Urines Urinalysis MOD H Urine Color (YEL,AMB,STR) YEL Urine Clarity (CLEAR) CLEAR Urine pH (5.0 - 8.0) 5.5 Ur Specific [place] (1.001 - 1.035) 1.020 Urine Protein (NEG,<30 MG/DL) 100 H Urine Ketones (NEG) TRACE H Urine Nitrite (NEG) NEG Urine Bilirubin (NEG) NEG Urine Urobilinogen (0.1 - 1.0 EU/dl) 0.2 Ur Leukocyte Esterase (NEG) TRACE H Ur Microscopic SEDIMENT EXAMINED Urine RBC (0 - 5 /HPF) 10-15 H Urine WBC (0 - 2 /HPF) 3-5 H Ur Epithelial Cells (NONE,FEW) FEW Urine Crystals 1+ CA OX H Urine Bacteria (NEG/NONE) FEW H Granular Casts (NONE /LPF) 1-3 H Urine Mucus (FEW,NONE) MOD H Urine Hemoglobin (NEG) SMALL H Urine Glucose (N MG/DL) NEG 01/17 1600 Chemistry Sodium (137 - 145 mmol/L) 134 L Potassium (3.5 - 5.1 mmol/L) 6.2 *H Chloride (98 - 107 mmol/L) 104 Carbon Dioxide (22 - 30 mmol/L) 18 L Anion Gap (5 - 16) 13 BUN (9 - 20 mg/dL) 44 H Creatinine (0.7 - 1.2 mg/dL) 1.3 H Estimated GFR (>60 ml/min) 55 L BUN/Creatinine Ratio (7 - 25 %) 33.8 H Glucose (65 - 99 mg/dL) 152 H Lactic Acid (0.7 - 2.1 mmol/L) 3.6 H Calcium (8.4 - 10.2 mg/dL) 9.2 Troponin I (<0.11 ng/ml) < 0.01 [id number] Pept (<125 pg/mL) 373 H Hematology CBC w Diff MAN DIFF ORDERED WBC (4.8 - 10.8 /CUMM) 29.8 H RBC (4.70 - 6.10 /CUMM) 4.16 L Hgb (14.0 - 18.0 G/DL) 10.2 L Hct (42 - 52 %) 32.9 L MCV (80.0 - 94.0 FL) 78.9 L MCH (27.0 - 31.0 PG) 24.5 L RDW (11.5 - 14.5 %) 21.2 H Plt Count (130 - 400 /CUMM) 658 H MPV (7.4 - 10.4 FL) 7.6 Gran % (42.2 - 75.2 %) 90.5 H Lymphocytes % (20.5 - 51.1 %) 2.2 L Monocytes % (1.7 - 9.3 %) 7.3 Eosinophils % (0 - 5 %) 0 Basophils % (0.0 - 2.0 %) 0 L Absolute Granulocytes (1.4 - 6.5 /CUMM) 26.9 H Segmented Neutrophils (42.2 - 75.2 %) 75 Band Neutrophils (0.0 - 5.0 %) 6 H Absolute Lymphocytes (1.2 - 3.4 /CUMM) 0.6 L Lymphocytes (20.5 - 51.1 %) 3 L Monocytes (1.7 - 9.3 %) 16 H Absolute Monocytes (0.10 - 0.60 /CUMM) 2.2 H Absolute Eosinophils (0.0 - 0.7 /CUMM) 0 Absolute Basophils (0.0 - 0.2 /CUMM) 0 Platelet Estimate (ADEQUATE) INCREASED Polychromasia 1+ Anisocytosis 1+ Microcytic Cells 1+ PUBS MCHC (33.0 - 37.0 G/DL) 31.0 L Vital Signs Date Time Temp Pulse Resp B/P Pulse O2 O2 Flow FiO2 Ox Delivery Rate 01/18 0754 114 120/50 01/18 0400 96 Nasal 4.0L Cannula 01/18 0200 102 16 95/44 01/18 0101 99 109/51 01/18 0000 98.6 105 17 117/53 01/18 0000 98.6 105 17 117/53 93 Nasal 4.0L Cannula 01/18 0000 93 Nasal 4.0L Cannula 01/17 2305 94 Nasal 4.0L Cannula 01/17 2217 99.9 110 20 105/53 100 Nasal 4.5L Cannula 01/17 2123 100.0 110 20 105/50 94 Nasal 4.5L Cannula 01/18 2108 99.2 111 20 92/48 94 Nasal 4.5L Cannula 01/17 2034 100.2 109 20 100/49 93 Nasal 4.0L Cannula 01/17 2025 100.2 109 20 100/52 96 Nasal 5.0L Cannula 01/17 2010 100.0 103 20 96/59 97 Nasal 5.0L Cannula 01/17 1939 99.9 105 107/53 93 Nasal 5.0L Cannula 01/17 1929 99.9 106 20 88/55 97 Nasal 5.0L Cannula 01/18 1920 99.7 108 24 101/50 97 Nasal 5.0L Cannula 01/17 1915 99.7 109 20 86/44 96 Nasal 5.0L Cannula 01/18 1908 99.7 103 22 84/47 95 Nasal 5.0L Cannula 01/17 190 99.7 115 22 72/39 01/17 190 99.7 115 22 72/39 95 Nasal 5.0L Cannula 01/17 1835 99.7 117 24 73/42 94 Nasal 5.0L Cannula 01/17 1730 99.3 118 24 91/52 93 Nasal 4.0L Cannula 01/17 1719 99.5 122 24 83/46 94 Nasal 4.0L Cannula 01/17 1710 99.7 124 20 72/48 96 Nasal 4.0L Cannula 01/17 1655 93 Nasal 6.0L Cannula 01/17 1654 99.5 125 20 88/51 93 Nasal 6.0L Cannula 01/17 1647 98.6 127 22 72/42 93 Nasal 6.0L Cannula 01/17 1622 128 22 70/34 93 Part 10L ReBreather 01/17 1605 100.2 138 24 64/40 93 Non 10L ReBreather 01/17 1555 150 24 58/32 83 Nasal 4.0L Cannula
--- NOTE | 2017-01-18 10:18 | RADIOLOGY REPORT ---
EXAMINATION: XR PORTABLE CHEST CLINICAL INFORMATION: Septic shock COMPARISON: 01/17/2017 TECHNIQUE: Portable AP view of the chest was obtained. FINDINGS: Median sternotomy wires appear intact. Surgical clips overlie the mediastinum. Cardiac leads overlie the chest. There is elevation of the left hemidiaphragm. Streaky left basilar opacities. Persistent hazy right basilar opacity. No pneumothorax or edema. The cardiomediastinal silhouette is unchanged. IMPRESSION: No significant change from prior. Elevated left hemidiaphragm. Persistent basilar opacities favoring atelectasis.
--- NOTE | 2017-01-18 11:28 | Cons- Infect Disease ---
General Information and HPI Consulting Request Date of Consult: 01/18/17 Requested By: SLIM COLE MD Reason for Consult: Rule out sepsis Source of Information: patient, old records History of Present Illness: This is a 71-year-old man, group home resident, with paraplegia following spinal shock after surgery for an aortic aneurysm 4 years prior to admission, status post placement of a suprapubic cystostomy and diverting colostomy 2-1/2 months prior to admission to help with management of a chronic sacral decubitus, with underlying osteomyelitis, treated with multiple courses of antibiotics, most recently 2 months prior to admission after he was hospitalized with Group G strep sepsis attributed to the sacral decubitus, status post ostectomy with bone culture positive for Group G strep and VRE, discharged on Daptomycin for a 4 week course, which was completed 2 weeks prior to admission, most recently hospitalized 3 weeks prior to admission with a pulmonary embolism, discharged on Xarelto, apparently treated with a 10 day course of Levaquin 2 weeks prior to admission, presumably for pneumonia, admitted on January 17 with the acute onset of hypotension, tachycardia and hypoxia. On admission he was febrile to 100.2, with blood pressure 58/32, heart rate in the 140s to 150s, and O2 sat of 83% on 4 L. Laboratory data revealed a white blood cell count of 30,000, with 75 segs and 6 bands, BUN/creatinine 44 and 1.3, potassium 6.2, AST/ALT normal, lactic acid 3.6. ABG 7.26/34/124 on a 60% partial rebreather. Urinalysis 10-15 RBC/3- 5 WBCs. Chest x-ray revealed persistent linear, hazy opacities in both lower lobes. He was begun on Levophed with a right femoral triple-lumen catheter placed. He was given 1 dose each of Unasyn and Ceftazidime and admitted to the ICU. He defervesced overnight. This morning he complains of nausea and upper abdominal discomfort. He does not report any shortness of breath or chest pain but notes a chronic cough. He continues to report leakage of urine around the suprapubic cystostomy. Allergies/Medications Allergies: Coded Allergies: NO KNOWN ALLERGIES (10/18/16) Home Med List: Acetaminophen (Q-Pap) 325 MG TABLET 2 TAB PO Q4H PRN PAIN/TEMP>/100 (Reported ) Acetaminophen (Acephen) 650 MG SUPP.RECT 1 SUPP NC Q4H PRN PAIN/TEMP>100 ( Reported) Albuterol Sulfate 2.5 MG/3 ML (0.083 %) VIAL.NEB 1 Vial INH/DARRON Q4P WHILE AWAKE-RESPIRATORY (Reported) Amino Acids/Protein Hydrolys (Pro-Stat Sugar Free Liquid) (Unknown Strength) LIQUID 30 ML PO BID SUPPLEMENT (Reported) Aspirin (Ecotrin*) 81 MG TABLET.DR 1 TAB PO DAILY HEART/BLOOD (Reported) Atorvastatin Calcium (Lipitor) 10 MG TABLET 1 TAB PO DAILY CHOLESTEROL ( Reported) Baclofen 10 MG TABLET 1 TAB PO DAILY UNKNOWN (Reported) Benazepril HCl 10 MG TABLET 1 TAB PO DAILY BP (Reported) Bisacodyl 10 MG SUPP.RECT 1 SUP RC PRN CONSTIPATION (Reported) Cyanocobalamin (Vitamin B-12) (Vitamin B-12) 100 MCG TABLET 1 TAB PO DAILY SUPPLEMENT (Reported) Ergocalciferol (Vitamin D2) (Vitamin D2) 50,000 UNIT CAPSULE 1 CAP PO Q30D SUPPLEMENT (Reported) Furosemide (Lasix) 20 MG TABLET 1 TAB PO EOD DIURETIC (Reported) Ipratropium/Albuterol Sulfate (Iprat-Albut 0.5-3(2.5) MG/3 Ml) 0.5 MG-3 MG (2.5 MG BASE)/3 ML AMPUL.NEB 1 VIAL INH TID RESPIRATORY (Reported) Levetiracetam (Keppra) 500 MG TABLET 1 TAB PO QAM UNKNOWN (Reported) Lisinopril (Zestril) 10 MG TABLET 1 TAB PO DAILY BP (Reported) Magnesium Hydroxide (Milk Of Magnesia) 400 MG/5 ML ORAL.SUSP 30 ML PO DAILY PRN CONSTIPATION (Reported) Melatonin 5 MG TABLET 1 TAB PO QHS SLEEP (Reported) Metformin HCl 500 MG TABLET 1 TAB PO BID DM (Reported) Mirtazapine 15 MG TABLET 0.5 TAB PO QHS UNKNOWN (Reported) Mometasone/Formoterol (Dulera 100 Mcg/5 Mcg Inhaler) 100 MCG-5 MCG/ACTUATION HFA.AER.AD 2 PUF INH BID RESPIRATORY (Reported) Multivitamin (Multi-Day Vitamins) 1 EACH TABLET 1 TAB PO DAILY SUPPLEMENT ( Reported) Na Phos,M-B/Na Phos,Di-Ba (Fleet Enema) 19 GRAM-7 GRAM/118 ML ENEMA 1 E RC DAILY PRN CONSTIPATION (Reported) [place]-3/Dha/Epa/Fish Oil (Fish Oil 1,000 MG Softgel) 1,000 MG (120 MG-180 MG) CAPSULE 1 CAP PO DAILY SUPPLEMENT (Reported) Omeprazole 20 MG CAPSULE.DR 1 CAP PO DAILY GI (Reported) Ondansetron HCl (Zofran) 4 MG TABLET 1 TAB PO Q8H PRN N/V (Reported) Oxycodone HCl 10 MG TABLET 1 TAB PO Q8H PAIN (Reported) Potassium Chloride 20 MEQ TAB.ER.PRT 1 TAB PO QPM SUPPLEMENT (Reported) Psyllium Husk (Metamucil) (Unknown Strength) CAPSULE 1 CAP PO DAILY SUPPLEMENT (Reported) Rivaroxaban (Xarelto) 20 MG TABLET 1 TAB PO DAILY Pumonary Embolism with food Please start medication on 01/18/17 Rivaroxaban (Xarelto) 15 MG TABLET 15 MG PO BID Pulmonary Embolism Please continue this dose until 01/17/17. then continue 20mg daily. Saccharomyces Boulardii (Florastor) 250 MG CAPSULE 1 TAB PO QHS PROBIOTIC ( Reported) Tolterodine Tartrate (Detrol LA) 4 MG CAP.ER.24H 1 CAP PO DAILY BLADDER ( Reported) Trazodone HCl 50 MG TABLET 0.5 TAB PO Q12H PRN UNKNOWN (Reported) Past History Travel History Traveled to [place] past 21 day No Medical History Blood Transfusion Hx: Yes Neurological: PARAPLEGIA STATUS POST SPINAL SHOCK POSTOP EENT: NONE Cardiovascular: CAD, hypertension, hyperlipidemia, ABDOMINAL ANEURYSM Respiratory: asthma, pulmonary embolism Gastrointestinal: GERD Hepatic: NONE Renal: neurogenic bladder, UTI Musculoskeletal: decubitis ulcer (OSTEOMYELITIS) Psychiatric: anxiety, depression Endocrine: DIABETES TYPE 2 Blood Disorders: NONE Cancer(s): prostate cancer DEVELOPER EVANGELIST/Reproductive: NONE History of MRSA: Yes History of VRE: Yes History of CDIFF: No Isolation History: Contact Influenza Vaccine: 09/04/16 Surgical History Surgical History: CABG, AAA repair x2 once 2002, and 2013 status post diverting colostomy status post suprapubic cystostomy Family History Relations & Conditions If Any: MOTHER FH: coronary artery disease FH: diabetes mellitus BROTHER FH: diabetes mellitus SISTER Psychosocial History Where Do You Live? Jail Facility Services at Home: Home Health Aide, Nursing Primary Language: Moroccan Smoking Status: Never Smoked Functional Ability ADLs Independent: eating. Needs Assist: dressing, toileting, bathing. Ambulation: non-ambulatory IADLs Needs Assist: shopping, housework, finances, food prep, telephone, transportation, medication admin. Review of Systems Review of Systems GI: Denies: diarrhea. All Other Systems: Reviewed and Negative Exam & Diagnostic Data Last 24 Hrs of Vital Signs/I&O Vital Signs Date Time Temp Pulse Resp B/P Pulse O2 O2 Flow FiO2 Ox Delivery Rate 01/18 0754 114 120/50 01/18 0400 96 Nasal 4.0L Cannula 01/18 0200 102 16 95/44 01/18 0101 99 109/51 01/18 0000 98.6 105 17 117/53 01/18 0000 98.6 105 17 117/53 93 Nasal 4.0L Cannula 01/18 0000 93 Nasal 4.0L Cannula 01/17 2305 94 Nasal 4.0L Cannula 01/177 99.9 110 20 105/53 100 Nasal 4.5L Cannula 01/17 2123 100.0 110 20 105/50 94 Nasal 4.5L Cannula 01/18 2108 99.2 111 20 92/48 94 Nasal 4.5L Cannula 01/17 2034 100.2 109 20 100/49 93 Nasal 4.0L Cannula 01/17 2025 100.2 109 20 100/52 96 Nasal 5.0L Cannula 01/17 2010 100.0 103 20 96/59 97 Nasal 5.0L Cannula 01/17 1939 99.9 105 107/53 93 Nasal 5.0L Cannula 01/17 1929 99.9 106 20 88/55 97 Nasal 5.0L Cannula 01/18 1920 99.7 108 24 101/50 97 Nasal 5.0L Cannula 01/17 1915 99.7 109 20 86/44 96 Nasal 5.0L Cannula 01/18 1908 99.7 103 22 84/47 95 Nasal 5.0L Cannula 01/17 190 99.7 115 22 72/39 01/17 1903 99.7 115 22 72/39 95 Nasal 5.0L Cannula 01/175 99.7 117 24 73/42 94 Nasal 5.0L Cannula 01/17 1730 99.3 118 24 91/52 93 Nasal 4.0L Cannula 03/30 1719 99.5 122 24 83/46 94 Nasal 4.0L Cannula 01/17 1710 99.7 124 20 72/48 96 Nasal 4.0L Cannula 01/17 1655 93 Nasal 6.0L Cannula 01/17 1654 99.5 125 20 88/51 93 Nasal 6.0L Cannula 01/17 1647 98.6 127 22 72/42 93 Nasal 6.0L Cannula 01/17 1622 128 22 70/34 93 Part 10L ReBreather 01/17 1605 100.2 138 24 64/40 93 Non 10L ReBreather 01/17 1555 150 24 58/32 83 Nasal 4.0L Cannula Intake & Output 01/18 1600 01/18 0800 01/18 0000 Intake Total 1450 5000 Output Total 401 Balance 1049 5000 Intake, IV 1350 5000 Intake, Oral 100 Output, Stool 1 Output, Urine 400 Patient 174 lb 174 lb Weight Physical Exam Other Physical Findings: He is awake and alert in no acute distress. MAXIMUM TEMPERATURE 100.2. Skin reveals no rash. HEENT exam is negative. Neck is supple with no adenopathy. Lungs bilateral crackles. Heart regular rhythm with no murmur. Abdomen is soft , tender on palpation over the upper abdomen, right greater than left, with no guarding or rebound, positive bowel sounds; colostomy with no stool in the bag; suprapubic cystostomy in place with no inflammation at the site. Back large, deep sacral decubitus, with minimal necrosis at the edges but with no necrosis or probing to bone and with no surrounding erythema; no CVA tenderness. Extremities no cyanosis, clubbing or edema; right femoral triple catheter in place with no inflammation at the site. Neuro paraplegia. Last 24 Hours of Lab Results: Laboratory Tests 01/18 01/18 01/18 01/17 0510 0510 0030 1914 Chemistry Sodium (137 - 145 mmol/L) 138 136 L Potassium (3.5 - 5.1 mmol/L) 5.2 H 5.4 H Chloride (98 - 107 mmol/L) 111 H 111 H Carbon Dioxide (22 - 30 mmol/L) 16 L 17 L Anion Gap (5 - 16) 11 8 BUN (9 - 20 mg/dL) 42 H 42 H Creatinine (0.7 - 1.2 mg/dL) 1.1 1.1 Estimated GFR (>60 ml/min) > 60 > 60 Glucose (65 - 99 mg/dL) 128 H 167 H Lactic Acid (0.7 - 2.1 mmol/L) 1.8 3.1 H Calcium (8.4 - 10.2 mg/dL) 8.1 L 8.4 Phosphorus (2.5 - 4.5 mg/dL) 4.9 H 5.6 H Magnesium (1.6 - 2.3 mg/dL) 2.0 1.9 Total Bilirubin (0.2 - 1.3 mg/dL) 0.5 0.5 AST (17 - 59 U/L) 21 22 ALT (21 - 72 U/L) 31 30 Alkaline Phosphatase (< 127 U/L) Pending Albumin (3.5 - 5.0 g/dL) 2.2 L 2.3 L Hematology CBC w Diff MAN DIFF ORDERED WBC (4.8 - 10.8 /CUMM) 27.9 H RBC (4.70 - 6.10 /CUMM) 3.58 L Hgb (14.0 - 18.0 G/DL) 8.8 L Hct (42 - 52 %) 28.2 L MCV (80.0 - 94.0 FL) 78.8 L MCH (27.0 - 31.0 PG) 24.6 L RDW (11.5 - 14.5 %) 20.9 H Plt Count (130 - 400 /CUMM) 560 H MPV (7.4 - 10.4 FL) 7.1 L Gran % (42.2 - 75.2 %) 92.9 H Lymphocytes % (20.5 - 51.1 %) 2.9 L Monocytes % (1.7 - 9.3 %) 4.2 Eosinophils % (0 - 5 %) 0 Basophils % (0.0 - 2.0 %) 0 L Absolute Granulocytes (1.4 - 6.5 /CUMM) 26.0 H Segmented Neutrophils (42.2 - 75.2 %) 85 H Band Neutrophils (0.0 - 5.0 %) 10 H Absolute Lymphocytes (1.2 - 3.4 /CUMM) 0.8 L Lymphocytes (20.5 - 51.1 %) 2 L Monocytes (1.7 - 9.3 %) 3 Absolute Monocytes (0.10 - 0.60 /CUMM) 1.2 H Absolute Eosinophils (0.0 - 0.7 /CUMM) 0 Absolute Basophils (0.0 - 0.2 /CUMM) 0 Platelet Estimate (ADEQUATE) INCREASED Polychromasia 1+ Hypochromic-Microcytic 1+ Poikilocytosis 1+ Anisocytosis 1+ Microcytic Cells 1+ Ovalocytes 1+ Stomatocytes FEW PUBS MCHC (33.0 - 37.0 G/DL) 31.2 L ESR [place] (0 - 10 MM) 66 H Other Body Source Fld Total RBCs Counted (%) 100 01/17 01/17 1905 1615 Blood Gas pH (7.35 - 7.45 PH) 7.26 *L pCO2 (35 - 45 TORR) 34 L pO2 (80 - 100 TORR) 124 H HCO3 (21 - 28 MEQ/L) 15 L ABG O2 Sat (Measured) (>96.0 %) 97.0 P-50 (Temp Corrected) Y Carboxyhemoglobin (1.5 - 5.0 %) 0.3 L O2 Concentration % 60% Temperature (97.0 - 100.0 FARH) 100.2 H O2 Delivery Method PRB Miscellaneous Phlebotomy Draw Site RIGHT RADIAL Urines Urinalysis MOD H Urine Color (YEL,AMB,STR) YEL Urine Clarity (CLEAR) CLEAR Urine pH (5.0 - 8.0) 5.5 Ur Specific [place] (1.001 - 1.035) 1.020 Urine Protein (NEG,<30 MG/DL) 100 H Urine Ketones (NEG) TRACE H Urine Nitrite (NEG) NEG Urine Bilirubin (NEG) NEG Urine Urobilinogen (0.1 - 1.0 EU/dl) 0.2 Ur Leukocyte Esterase (NEG) TRACE H Ur Microscopic SEDIMENT EXAMINED Urine RBC (0 - 5 /HPF) 10-15 H Urine WBC (0 - 2 /HPF) 3-5 H Ur Epithelial Cells (NONE,FEW) FEW Urine Crystals 1+ CA OX H Urine Bacteria (NEG/NONE) FEW H Granular Casts (NONE /LPF) 1-3 H Urine Mucus (FEW,NONE) MOD H Urine Hemoglobin (NEG) SMALL H Urine Glucose (N MG/DL) NEG 01/17 1600 Chemistry Sodium (137 - 145 mmol/L) 134 L Potassium (3.5 - 5.1 mmol/L) 6.2 *H Chloride (98 - 107 mmol/L) 104 Carbon Dioxide (22 - 30 mmol/L) 18 L Anion Gap (5 - 16) 13 BUN (9 - 20 mg/dL) 44 H Creatinine (0.7 - 1.2 mg/dL) 1.3 H Estimated GFR (>60 ml/min) 55 L BUN/Creatinine Ratio (7 - 25 %) 33.8 H Glucose (65 - 99 mg/dL) 152 H Lactic Acid (0.7 - 2.1 mmol/L) 3.6 H Calcium (8.4 - 10.2 mg/dL) 9.2 Troponin I (<0.11 ng/ml) < 0.01 [id number] Pept (<125 pg/mL) 373 H Hematology CBC w Diff MAN DIFF ORDERED WBC (4.8 - 10.8 /CUMM) 29.8 H RBC (4.70 - 6.10 /CUMM) 4.16 L Hgb (14.0 - 18.0 G/DL) 10.2 L Hct (42 - 52 %) 32.9 L MCV (80.0 - 94.0 FL) 78.9 L MCH (27.0 - 31.0 PG) 24.5 L RDW (11.5 - 14.5 %) 21.2 H Plt Count (130 - 400 /CUMM) 658 H MPV (7.4 - 10.4 FL) 7.6 Gran % (42.2 - 75.2 %) 90.5 H Lymphocytes % (20.5 - 51.1 %) 2.2 L Monocytes % (1.7 - 9.3 %) 7.3 Eosinophils % (0 - 5 %) 0 Basophils % (0.0 - 2.0 %) 0 L Absolute Granulocytes (1.4 - 6.5 /CUMM) 26.9 H Segmented Neutrophils (42.2 - 75.2 %) 75 Band Neutrophils (0.0 - 5.0 %) 6 H Absolute Lymphocytes (1.2 - 3.4 /CUMM) 0.6 L Lymphocytes (20.5 - 51.1 %) 3 L Monocytes (1.7 - 9.3 %) 16 H Absolute Monocytes (0.10 - 0.60 /CUMM) 2.2 H Absolute Eosinophils (0.0 - 0.7 /CUMM) 0 Absolute Basophils (0.0 - 0.2 /CUMM) 0 Platelet Estimate (ADEQUATE) INCREASED Polychromasia 1+ Anisocytosis 1+ Microcytic Cells 1+ PUBS MCHC (33.0 - 37.0 G/DL) 31.0 L Last 24 Hours of Perfecto Results: Blood cultures 2 January 17 negative so far Urine culture January 17 negative Diagnostic Data Recent Imaging Findings: Chest x-ray January 18, personally reviewed, reveals persistent bibasilar opacities, suggesting atelectasis. Assessment/Plan Assessment/Plan Impression: This is a 71-year-old man with diabetes, coronary artery disease, recently diagnosed with a pulmonary embolism, paraplegia, status post diverting colostomy and suprapubic cystostomy, with a chronic sacral decubitus and underlying osteomyelitis, treated with multiple courses of antibiotics, with his most recent course completed 2 weeks prior to admission, and more recently treated with a course of Levaquin for pneumonia, admitted on January 17 with the acute onset of hypotension, tachycardia and hypoxia, found to have a low-grade fever with a marked leukocytosis with no obvious focus of infection. His clinical picture is consistent with sepsis, with possible sources including the abdomen, with recent nausea and upper abdominal tenderness, with a biliary process ( cholangitis status post cholecystectomy), diverticulitis or ischemic colitis possible, the decubitus, though there is no evidence of purulence or necrosis, the lungs, though chest x-ray is more suggestive of atelectasis and his respiratory status is relatively stable, and the urinary tract, status post suprapubic cystostomy and chronic leakage around the catheter, though his urinalysis and urine culture are unremarkable. There is no report of diarrhea to suggest C. difficile. Of note a recent urine culture was resistant to Ceftazidime; therefore would use an alternative gram-negative agent pending further evaluation. Suggestion: 1. Would pursue CT of the chest, abdomen and pelvis with IV contrast if creatinine remains stable 2. Plastic surgery evaluation of his decubitus 3. Add alk phosphatase to this morning's labs 4. Urology evaluation at some point regarding the continued leakage around the suprapubic tube 5. Would pursue placement of a PICC or triple lumen catheter in the neck so the right femoral line can be removed 6. Follow-up recent cultures 7. Would begin Meropenem 1 g IV every 8 hours pending above Consult Acknowledgment - Thank you for your consult request.
[2017-01-18 12:06] LABS: PT 18.3 SEC (9.4-12.5); PTT 32 SEC (25-37)
--- NOTE | 2017-01-18 14:26 | CT SCAN REPORT ---
EXAMINATION: CT ABDOMEN AND PELVIS WITH CONTRAST CT CHEST CLINICAL INFORMATION: Septic shock. Abdominal pain and tenderness. COMPARISON: CT from 11/30/2016 TECHNIQUE: Multidetector volumetric imaging was performed of the chest, abdomen and pelvis before and after the IV administration of 98 mL of Optiray 320 intravenous contrast. Sagittal and coronal reformatted images were obtained on the technologist's workstation. DLP: 1046 mGy-cm FINDINGS: LUNGS: The central airways are patent. There is bilateral lower lobe consolidation with air bronchograms which could represent atelectasis or pneumonia. No pleural effusion or pneumothorax. MEDIASTINUM: The heart is mildly enlarged. Coronary artery calcifications are present. No pericardial effusion. No mediastinal lymphadenopathy. The esophagus is mildly dilated with an air-fluid level. No axillary lymphadenopathy. Mild anasarca. LIVER, GALLBLADDER, AND BILIARY TREE: The liver is normal in size, shape, and attenuation. No focal hepatic lesion or biliary ductal dilatation is present. Status post cholecystectomy. PANCREAS: Mild atrophy with no focal abnormality. SPLEEN: Unremarkable. ADRENAL GLANDS: Unremarkable. KIDNEYS AND URETERS: The kidneys are mildly atrophic. Multiple bilateral renal cysts. No hydronephrosis. BLADDER: Decompressed with a suprapubic catheter in place. GASTROINTESTINAL TRACT: The stomach is mildly distended without wall thickening. The small bowel is nonobstructive. There is a right lower quadrant colostomy. Prominent stool distends the left hemicolon. The right hemicolon is mildly prominent fluid-filled. No focal wall thickening. Small volume of free fluid in the abdomen and pelvis. No free air. ABDOMINAL WALL: Left lower quadrant colostomy. Mild anasarca. Edema extends most prominently along the left abdominal wall. This is increased from previous. LYMPH NODES: Normal. VASCULAR: There is a dissection of the descending thoracic aorta extending into the abdominal aorta. This is unchanged from previous. There is aneurysmal dilatation of the distal descending thoracic aorta, unchanged. It appears that the mesenteric vasculature and renal vessels originate from the true lumen. PELVIC VISCERA: Calcifications seen in the region of the prostate. OSSEOUS STRUCTURES: Chronic left ischial decubitus ulcer. This is unchanged. Air extends to the bone surface. There is sclerosis of the underlying bone, similar to previous. Sacral decubitus ulcer is also present, unchanged. Degenerative changes of the hips. Multilevel degenerative changes of the spine. IMPRESSION: Prominent stool filled appearance of the left hemicolon extending to the ostomy site. No definite colonic wall thickening. There is free fluid. A mild colitis is a consideration. No bowel obstruction. Bilateral consolidation in the lower lobes of the lungs. These could represent atelectasis or pneumonia. Chronic decubitus ulceration at the pelvis, unchanged. Associated osseous sclerosis. Chronic aortic dissection.
--- NOTE | 2017-01-18 15:36 | ULTRASOUND REPORT ---
PROCEDURE: PICC LINE PLACEMENT UNDER SONOGRAPHIC AND FLUOROSCOPIC GUIDANCE CLINICAL INFORMATION: 71-year-old patient presenting with a history of decubitus ulcer extending to the left posterior ischial region with chronic osteomyelitis who subsequently presented with septic shock. Poor peripheral venous access. Triple-lumen PICC requested to facilitate care including long-term antibiotics. NATIONAL SALES ASSOCIATE: Dr. Timothy Caputo. ACCESS: Right basilic vein. TECHNIQUE/FINDINGS: The procedure was requested by Dr. Sharad Liu. Informed consent was obtained from the patient's sister, Karlene who has DPOA prior to the procedure. During this process, the procedure and potential alternatives was explained, along with the intended outcome and benefits. The risks of the procedure, as well as the risk of not doing the procedure, were discussed. The patient's sister was given the opportunity to ask questions regarding the procedure and appeared competent to make medical decisions. A signed consent form which documents this discussion was placed in the medical record. The patient was brought to the interventional radiology suite and a final timeout procedure was performed. A sonographic survey was performed for assessment of venous access. The right basilic vein was confirmed to be patent. A sonographic image was sent to PACS for documentation. The right arm was sterilely prepped and draped. Maximum sterile barrier technique was maintained throughout the procedure. Following administration of local anesthesia using 1% lidocaine, a puncture was performed of the right basilic vein above the elbow joint under direct sonographic visualization. A [place] mandrel wire was advanced into the needle to the superior vena cava. A 7 [place] peel-away sheath was then in inserted using standard Seldinger technique. A 6 [place] triple-lumen lumen Bard Solo Power PICC was cut to 40 cm. The catheter was advanced under fluoroscopic guidance until its tip was at the SVC-right atrial junction. The ports could be easily aspirated. The lumens of the PICC were flushed with heparinized saline. A Biopatch was placed around the catheter at the entrance site. The catheter was secured with a StatLock. A sterile dressing was applied. The patient tolerated the procedure well. There was no evidence of complications. FLUOROSCOPY TIME: 0.5 minutes IMPRESSION: Successful placement of a 40 cm length, 6 [place] triple-lumen power injectable PICC line via the right arm under a combination of sonographic and fluoroscopic guidance. No evidence of complications.
[2017-01-18 16:00] VITALS: BP 96/44
[2017-01-19] VITALS: BP 90/40
[2017-01-19 06:19] LABS: ABSOLUTE BASOPHIL COUNT 0 /CUMM (0.0-0.2); ABSOLUTE EOSINOPHIL COUNT 0 /CUMM (0.0-0.7); ABSOLUTE GRANULOCYTE CT 19.7 /CUMM (1.4-6.5); ABSOLUTE LYMPH COUNT 0.7 /CUMM (1.2-3.4); ABSOLUTE MONOCYTE COUNT 0.5 /CUMM (0.10-0.60); BASOPHIL % 0 % (0.0-2.0); EOSINOPHIL % 0 % (0-5); GRANULOCYTE % 94.1 % (42.2-75.2); HEMATOCRIT 23.3 % (42-52); MEAN CORPUSCULAR HGB 24.7 PG (27.0-31.0); MEAN CORPUSCULAR HGB CONC 31.4 G/DL (33.0-37.0); MEAN CORPUSCULAR VOLUME 78.7 FL (80.0-94.0); MEAN PLATELET VOLUME 7.1 FL (7.4-10.4); PLATELET COUNT 489 /CUMM (130-400); RBC DISTRIBUTION WIDTH 20.8 % (11.5-14.5); RED BLOOD CELL CT 2.96 /CUMM (4.70-6.10); WHITE BLOOD CELL COUNT 20.9 /CUMM (4.8-10.8)
[2017-01-19 06:28] LABS: PTT 43 SEC (25-37)
[2017-01-19 08:00] VITALS: BP 120/50
--- NOTE | 2017-01-19 09:43 | PN- Infect Dx ---
Subjective Subjective: Afebrile. His blood pressure is improved, though still requiring Levophed. He feels improved today though still reports abdominal discomfort. He notes increased output via the colostomy, with guaiac positive stools reported. Objective Last 24 Hrs of Vital Signs/I&O Vital Signs Date Time Temp Pulse Resp B/P Pulse O2 O2 Flow FiO2 Ox Delivery Rate 01/19 0915 95 Nasal 4.0L Cannula 01/19 0821 105 107/47 01/19 0800 97.5 102 24 120/50 100 Nasal 4.0L Cannula 01/19 0400 99 Nasal 5.0L Cannula 01/19 0000 98.0 112 28 90/40 97 Nasal 5.0L Cannula 01/19 0000 97 Nasal 5.0L Cannula 01/18 2014 114 98/66 01/18 2005 98 Nasal 4.0L Cannula 01/18 2000 97 Nasal 5.0L Cannula 01/18 1615 24 01/18 1600 95 Nasal 5.0L Cannula 01/18 1600 98.0 118 42 96/44 95 Nasal 5.0L Cannula 01/18 1200 95 Nasal 4.0L Cannula 01/18 1129 Nasal 4.0L Cannula 01/18 1129 97 Nasal 4.0L Cannula Intake & Output 01/19 1600 01/19 0800 01/19 0000 Intake Total 1795 2009 Output Total 1525 225 Balance 270 1784 Intake, IV 1395 1749 Intake, Oral 400 260 Number 0 Bowel Movements Output, 1450 Gastric Drainage Output, Stool 0 Output, Urine 75 225 Patient 191 lb Weight Physical Exam Other Physical Findings: He appears more comfortable, awake and alert in no acute distress Lungs bilateral rhonchi Heart regular rhythm with no murmur Abdomen soft, tender on palpation of the upper abdomen, right upper quadrant greater than left upper quadrant, with no guarding or rebound, positive bowel sounds; liquid stool in the colostomy Extremities trace edema both lower extremities; PICC in place in the right upper extremity Results Last 24 Hours of Lab Results: Laboratory Tests 01/19 01/18 0550 1115 Chemistry Sodium (137 - 145 mmol/L) 137 138 Potassium (3.5 - 5.1 mmol/L) 4.4 5.1 Chloride (98 - 107 mmol/L) 114 H 112 H Carbon Dioxide (22 - 30 mmol/L) 17 L 15 L Anion Gap (5 - 16) 6 11 BUN (9 - 20 mg/dL) 41 H 43 H Creatinine (0.7 - 1.2 mg/dL) 0.9 1.0 Estimated GFR (>60 ml/min) > 60 > 60 BUN/Creatinine Ratio (7 - 25 %) 43.0 H Glucose (65 - 99 mg/dL) 88 Calcium (8.4 - 10.2 mg/dL) 8.0 L Phosphorus (2.5 - 4.5 mg/dL) 4.0 Magnesium (1.6 - 2.3 mg/dL) 2.0 Total Bilirubin (0.2 - 1.3 mg/dL) 0.4 AST (17 - 59 U/L) 18 ALT (21 - 72 U/L) 29 Albumin (3.5 - 5.0 g/dL) 1.8 L Triglycerides (<150 mg/dL) 95 Amylase (30 - 110 U/L) 793 H Lipase (23 - 300 U/L) 51 Coagulation PT (9.4 - 12.5 SEC) 18.3 H INR (0.90 - 1.17) 1.75 H APTT (25 - 37 SEC) 43 H 32 Hematology CBC w Diff MAN DIFF ORDERED WBC (4.8 - 10.8 /CUMM) 20.9 H RBC (4.70 - 6.10 /CUMM) 2.96 L Hgb (14.0 - 18.0 G/DL) 7.3 *L Hct (42 - 52 %) 23.3 L MCV (80.0 - 94.0 FL) 78.7 L MCH (27.0 - 31.0 PG) 24.7 L RDW (11.5 - 14.5 %) 20.8 H Plt Count (130 - 400 /CUMM) 489 H MPV (7.4 - 10.4 FL) 7.1 L Gran % (42.2 - 75.2 %) 94.1 H Lymphocytes % (20.5 - 51.1 %) 3.4 L Monocytes % (1.7 - 9.3 %) 2.5 Eosinophils % (0 - 5 %) 0 Basophils % (0.0 - 2.0 %) 0 L Absolute Granulocytes (1.4 - 6.5 /CUMM) 19.7 H Segmented Neutrophils (42.2 - 75.2 %) 75 Band Neutrophils (0.0 - 5.0 %) 15 H Absolute Lymphocytes (1.2 - 3.4 /CUMM) 0.7 L Lymphocytes (20.5 - 51.1 %) 10 L Absolute Monocytes (0.10 - 0.60 /CUMM) 0.5 Absolute Eosinophils (0.0 - 0.7 /CUMM) 0 Absolute Basophils (0.0 - 0.2 /CUMM) 0 Platelet Estimate (ADEQUATE) INCREASED Hypochromic-Microcytic 2+ Poikilocytosis 1+ Anisocytosis 1+ Delio Cells FEW PUBS MCHC (33.0 - 37.0 G/DL) 31.4 L Last 24 Hours of Perfecto Results: Blood cultures 2 January 17 negative Urine culture January 17 negative Recent Imaging Studies: CT of the chest, abdomen and pelvis with contrast January 18 reveals bilateral lower lobe consolidation with air bronchograms; no acute intra-abdominal or pelvic process Assessment/Plan Impression: Improved with temperatures remaining normal and white blood cell count decreased , though still elevated and with increased bands, on Meropenem Day 2 of presumed sepsis, possibly secondary to pneumonia, with bibasilar densities on chest x-ray and CT scan. An intra-abdominal infection, such as a hepatobiliary process, with upper abdominal tenderness and elevated amylase and alkaline phosphatase, or C. difficile, status post recent antibiotics, must be considered, though his CT scan was negative. His sacral decubitus remains a possible source, though there was little evidence of necrosis or purulence and no surrounding erythema. Suggestion: 1. Send a sputum culture 2. Stool for C. difficile 3. Consider right upper quadrant ultrasound 4. Plastic surgery evaluation of his sacral decubitus 5. Urology evaluation at some point regarding the continued leakage around the suprapubic tube 6. Follow-up cultures 7. Continue Meropenem pending above
--- NOTE | 2017-01-19 10:23 | PN- CRCU ---
Subjective HPI/Critical Care Issues: The patient is lethargic but arousable. During the interview, he had loud, audible rhonchi with some increased respiratory distress. The patient's oxygen requirement has increased, noting that he is now on 5 L nasal cannula. His MAXIMUM TEMPERATURE is 99. He remains on Levophed to maintain his blood pressure. He also remains on normal saline at 150 ML per hour. The patient still reports some abdominal discomfort. He has had increased output via his colostomy with guaiac positive stools and a decrease in his hematocrit. Objective Current Medications: Current Medications Sig/Mey Start time Last Medication Dose Route Stop Time Status Admin Acetaminophen 1,000 MG Q6P PRN 01/18 0045 AC N/A 1 UNIT IV Albuterol Sulfate 3 ML BID 01/18 1130 AC 01/19 INH 0908 Alprazolam 0.5 MG ONCE ONE 01/18 1245 DC 01/18 PO 01/18 1246 1331 Aspirin 81 MG DAILY 01/18 1000 AC PO Atorvastatin Calcium 10 MG 1700 01/18 1700 AC 01/18 PO 1721 Guaifenesin 10 ML Q6P PRN 01/18 0215 AC 01/18 PO 2158 Heparin Sodium 25,000 UNIT Q24H 01/18 1730 AC 01/18 (Porcine) IV 2355 Sodium Chloride 500 ML Heparin Sodium 0 .STK-MED ONE 01/18 1431 DC (Porcine) IV Heparin Sodium 0 .STK-MED ONE 01/18 1328 DC (Porcine) IV Insulin Human Regular 0 Q6 01/18 0021 AC 01/18 SC 0050 Ipratropium [place] 2.5 ML BID 01/18 1130 AC 01/19 INH 0908 Levetiracetam 500 MG DAILY 01/18 1000 AC 01/18 PO 1111 Lidocaine 0 .STK-MED ONE 01/18 1329 DC .ROUTE Melatonin 5 MG AT BEDTIME 01/18 2200 AC 01/18 PO 2129 Meropenem 1 GM IQ8 01/18 1130 AC 01/19 IV 0822 Morphine Sulfate 2 MG ONCE ONE 01/18 1030 DC 01/18 IV 01/18 1031 1033 Morphine Sulfate 1 MG Q6-PRN PRN 01/18 0045 AC 01/18 IV 1400 Norepinephrine 4 MG Q12H 01/18 0800 AC 01/19 Sodium Chloride 250 ML IV 0821 Omeprazole 40 MG DAILY AC 01/18 0700 AC 01/19 PO 0017 Oxycodone/ 1 TAB Q4P PRN 01/18 0930 AC 01/18 Acetaminophen PO 2350 Promethazine HCl 50 MG ONCE ONE 01/18 1245 DC 01/18 IV 01/18 1246 1331 Rivaroxaban 20 MG DAILY 01/18 1000 DC PO Sodium Chloride 500 ML BOLUS ONE 01/18 2015 DC 01/18 IV 01/18 Sodium Chloride 250 ML BOLUS ONE 01/18 1945 CAN IV 01/19 2044 Sodium Chloride 1,000 ML Q13H 01/17 2345 AC 01/19 IV 0604 Sodium Hypochlorite 1 HILARIA DAILY 01/18 1245 AC TOP Trazodone HCl 25 MG Q12H PRN 01/18 0015 AC 01/18 PO 2129 Vital Signs & I&O Last 24 Hrs of Vitals and I&O: Vital Signs Date Time Temp Pulse Resp B/P Pulse O2 O2 Flow FiO2 Ox Delivery Rate 01/19 0915 95 Nasal 4.0L Cannula 01/19 0821 105 107/47 01/19 0800 97.5 102 24 120/50 100 Nasal 4.0L Cannula 01/19 0800 99 Nasal 4.0L Cannula 01/19 0400 99 Nasal 5.0L Cannula 01/19 0000 98.0 112 28 90/40 97 Nasal 5.0L Cannula 01/19 0000 97 Nasal 5.0L Cannula 01/18 2014 114 98/66 01/18 2005 98 Nasal 4.0L Cannula 01/18 2000 97 Nasal 5.0L Cannula 01/18 1615 24 01/18 1600 95 Nasal 5.0L Cannula 01/18 1600 98.0 118 42 96/44 95 Nasal 5.0L Cannula 01/18 1200 95 Nasal 4.0L Cannula 01/18 1129 Nasal 4.0L Cannula 01/18 1129 97 Nasal 4.0L Cannula Intake & Output 01/19 1600 01/19 0800 01/19 0000 Intake Total 1795 2008 Output Total 1525 225 Balance 270 1784 Intake, IV 1395 1749 Intake, Oral 400 260 Number 0 Bowel Movements Output, 1450 Gastric Drainage Output, Stool 0 Output, Urine 75 225 Patient 191 lb Weight Physical Exam General Appearance: alert, awake, comfortable Head: normal appearance Ears, Nose, Throat: hearing grossly normal Neck: normal inspection Respiratory: diffuse rhonchi, some crackles at the bases Cardiovascular: regular rate/rhythm, tachycardia Gastrointestinal: normal bowel sounds, soft, non-tender Results Last 24 Hrs of Lab Results: Laboratory Tests 01/19/17 0550: Anion Gap 6, Estimated GFR > 60, Glucose 88, Calcium 8.0 L, Phosphorus 4.0, Magnesium 2.0, Total Bilirubin 0.4, AST 18, ALT 29, Albumin 1.8 L, APTT 43 H, CBC w Diff MAN DIFF ORDERED, RBC 2.96 L, MCV 78.7 L, MCH 24.7 L, RDW 20.8 H, MPV 7.1 L, Gran % 94.1 H, Lymphocytes % 3.4 L, Monocytes % 2.5, Eosinophils % 0, Basophils % 0 L, Absolute Granulocytes 19.7 H, Segmented Neutrophils 75, Band Neutrophils 15 H, Absolute Lymphocytes 0.7 L, Lymphocytes 10 L, Absolute Monocytes 0.5, Absolute Eosinophils 0, Absolute Basophils 0, Platelet Estimate INCREASED, Hypochromic-Microcytic 2+, Poikilocytosis 1+, Anisocytosis 1+, [place] Cells FEW, PUBS MCHC 31.4 L 01/18/17 1115: Anion Gap 11, Estimated GFR > 60, BUN/Creatinine Ratio 43.0 H, Triglycerides 95 , Amylase 793 H, Lipase 51, PT 18.3 H, INR 1.75 H, APTT [address] Scan Findings: Prominent stool filled appearance of the left hemicolon extending to the ostomy site. No definite colonic wall thickening. There is free fluid. A mild colitis is a consideration. No bowel obstruction. Bilateral consolidation in the lower lobes of the lungs. These could represent atelectasis or pneumonia. Chronic decubitus ulceration at the pelvis, unchanged. Associated osseous sclerosis. Chronic aortic dissection. Impression/Plan Impression/Plan Impression/Plan: 1. Clinical picture consistent with sepsis although the source remains unclear. The patient had a CT scan of the chest, abdomen and pelvis yesterday that demonstrated bilateral consolidation in the lower lobes of the lungs thought to represent atelectasis versus pneumonia. He also had prominent stool but no colonic wall thickening. There was some free fluid reported and mild colitis remains in the differential diagnosis. The chronic decubitus ulceration in the pelvis is unchanged. This morning, the patient did appear to be in respiratory distress with copious secretions. Respiratory suction the patient noting a significant amount of thick oakley secretions were obtained and sent for culture. 2. Increased ostomy output with guaiac positive stools and decreased hemoglobin , rule out bleeding. This may also be in part, dilutional. 3. Spinal stroke with paraplegia., on IV heparin. 4. Type 2 diabetes. 5. Recurrent aspiration pneumonia, requiring multiple antibiotics in the past. 6. History of suprapubic catheter which has some leakage around it. 7. History of pulmonary embolism. Recommendations: * Deep suctioning, Nebs and chest PT as per respiratory therapy. * Continue strict aspiration precautions. * The head of the bed should remain greater than a minimum of 30 at all times. * Order a portable chest x-ray this morning to rule out worsening aspiration. * Follow up culture results. * Agree with sending stool for C. difficile. * Check a stat CBC now. * If the patient's H&H continues to drop, will need to stop anticoagulation and transfuse. * Decrease IV fluids to 75 ML per hour. * Consult GI if worsening H&H or evidence of active bleeding. * Attempt to wean the Levophed down to off as tolerated. Maintain systolic blood pressure greater then 90 mmHg. * Try to avoid sedation. Hold Desyrel and morphine if the patient has any evidence of oversedation. * DVT prophylaxis - on IV heparin. * Continue to monitor in the critical care unit. The patient is critically ill and has the potential to decompensate. Will need ongoing close follow-up.
--- NOTE | 2017-01-19 12:16 | RADIOLOGY REPORT ---
EXAMINATION: XR PORTABLE CHEST CLINICAL INFORMATION: 71-year-old man with possible aspiration. COMPARISON: 01/18/2017 chest radiograph TECHNIQUE: Portable AP view of the chest was obtained. FINDINGS: Patchy bibasilar airspace opacity has increased since the prior study, particularly on the right side, and is concerning for worsening pneumonia. Moderate cardiomegaly post median sternotomy is unchanged. There are no large pleural effusions. A new right-sided PICC is seen with the catheter tip projecting over the distal SVC. IMPRESSION: Worsening nonspecific bibasilar airspace opacities, worrisome for developing pneumonia.
[2017-01-19 12:39] LABS: ABSOLUTE BASOPHIL COUNT 0 /CUMM (0.0-0.2); ABSOLUTE EOSINOPHIL COUNT 0 /CUMM (0.0-0.7); ABSOLUTE GRANULOCYTE CT 18.2 /CUMM (1.4-6.5); ABSOLUTE LYMPH COUNT 0.5 /CUMM (1.2-3.4); ABSOLUTE MONOCYTE COUNT 0.4 /CUMM (0.10-0.60); BASOPHIL % 0 % (0.0-2.0); EOSINOPHIL % 0 % (0-5); GRANULOCYTE % 95.4 % (42.2-75.2); HEMATOCRIT 23.2 % (42-52); MEAN CORPUSCULAR HGB 24.5 PG (27.0-31.0); MEAN CORPUSCULAR VOLUME 78.8 FL (80.0-94.0); MEAN PLATELET VOLUME 7.3 FL (7.4-10.4); PLATELET COUNT 487 /CUMM (130-400); RBC DISTRIBUTION WIDTH 21.3 % (11.5-14.5); RED BLOOD CELL CT 2.94 /CUMM (4.70-6.10); WHITE BLOOD CELL COUNT 19.1 /CUMM (4.8-10.8)
[2017-01-19 14:26] LABS: PTT 44 SEC (25-37)
--- NOTE | 2017-01-19 14:39 | PN- Resident CRCU ---
Subjective HPI/CRCU Issues: septic shock 24 Hour Events: i have seen and examined the patient, he is doing better, continues to be on iv heaprin, tryign to titrate off levohped, GI to be called to evaluate, will ct to monitor h/h ,lucretia had guaic positve stools, Dr aspen hannon think he needs debridement for now. Objective Vital Signs & I&O Last 8 Hrs of Vitals and I&O: Intake & Output 01/19 1600 Intake Total 1446.2 Output Total 375 Balance 1071.2 Intake, IV 966.2 Intake, Oral 480 Output, Stool 200 Output, Urine 175 Patient 86.806 kg Weight Exam General Appearance: well developed/nourished Head: atraumatic, normal appearance Ears, Nose, Throat: normal pharynx, normal ENT inspection Neck: normal inspection, supple Respiratory: normal breath sounds Cardiovascular: regular rate/rhythm, edema Gastrointestinal: normal bowel sounds, soft, non-tender Extremities: normal inspection Cranial Nerves: normal hearing, normal speech, PERRL Skin: intact, normal color Back: normal inspection Current Medications: Current Medications Sig/Mey Start time Last Medication Dose Route Stop Time Status Admin Acetaminophen 1,000 MG Q6P PRN 01/18 0045 AC N/A 1 UNIT IV Albuterol Sulfate 3 ML BID 01/18 1130 AC 01/19 INH 0908 Aspirin 81 MG DAILY 01/18 1000 AC 01/19 PO 1033 Atorvastatin Calcium 10 MG 1700 01/18 1700 AC 01/18 PO 1721 Guaifenesin 10 ML Q6P PRN 01/18 0215 AC 01/18 PO 2158 Heparin Sodium 25,000 UNIT Q24H 01/18 1730 AC 01/18 (Porcine) IV 2355 Sodium Chloride 500 ML Insulin Aspart 0 TIDAC/HS 01/19 1200 AC SC Insulin Human Regular 0 Q6 01/18 0021 DC 01/18 SC 0050 Ipratropium [place] 2.5 ML BID 01/18 1130 AC 01/19 INH 0908 Levetiracetam 500 MG DAILY 01/20 1000 AC PO Levetiracetam 500 MG DAILY 01/18 1000 DC 01/19 PO 1034 Melatonin 5 MG AT BEDTIME 01/18 2200 AC 01/18 PO 2129 Meropenem 1 GM IQ8 01/18 1130 AC 01/19 IV 0822 Methyl Salicylate 1 HILARIA TID PRN 01/19 1430 UNVr TOP Morphine Sulfate 1 MG Q6-PRN PRN 01/18 0045 AC 01/18 IV 1400 Norepinephrine 4 MG Q12H 01/18 0800 AC 01/19 Sodium Chloride 250 ML IV 0821 Omeprazole 40 MG DAILY AC 01/18 0700 AC 01/19 PO 0017 Oxycodone/ 1 TAB Q4P PRN 01/18 0930 AC 01/18 Acetaminophen PO 2350 Sodium Chloride 1,000 ML Q13H 01/20 0145 AC IV Sodium Chloride 500 ML BOLUS ONE 01/18 2015 DC 01/18 IV 01/184 2012 Sodium Chloride 250 ML BOLUS ONE 01/18 1945 CAN IV 01/18 204 Sodium Chloride 1,000 ML Q13H 01/17 2345 DC 01/19 IV 0604 Sodium Hypochlorite 1 HILARIA DAILY 01/18 1245 AC 01/19 TOP 1033 Trazodone HCl 25 MG Q12H PRN 01/18 0015 AC 01/18 PO 2129 Impression/Plan Impression/Problem List Impression: 71-year-old male with PMH paraplegia, with a chronic stage IV sacral decubitus with wound vac, ostomy and suprapubic catheter in place, MRSA, VRE treated with daptomycin, and 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 Came in with BP of 58/32 and pulse rate of 150, given fluid boluses, and required pressor support with levophed in the ICU. White count was 29k with bands. Source of sepsis unclear but include: abdominal process (keep in mind his UC grew pseudomonas which implies gut colonization as well, resistant to ceftaz and zosyn), urinary tract infection (chronic suprapubic catheter), c diff ( significant abx exposure, but no loose stool noted in the colostomy bag), ischemic colitis (hypotension, but no blood noted in the colostomy bag), stage 4 decubitus ulcer with wound vac draining serosanguinous fluid (has necrotic edges , but otherwise no obvious purulent drainage), pancreatitis, biliary process ( tender RUQ, had cholecystectomy). Lines: PICC Line Day 2 Suprapubic catheter (from 2 months ago?) Problem list: # Septic shock # Nausea and bilious vomiting, abdominal tenderness ID: Septic shock - Came in with 58/32 and pulse rate of 150, ERICKA (cr 1.3, baseline 0.8), WBC 29K with bands, LA 3.6. K 6.2, Na 134. * Consult surgery regarding debridement and wound vac removal/replacement. Spoke to Dr. Jung who does not recommend debridement of the ulcer as it does not look infected and unlikely to be the source of sepsis. * Wound vac has been removed. * continue wet to dry dressing for now. * Wound vac to placed back on saturday. * Although Dr. Jung recommends wound vac placement, we don't have wound care nurse available until Saturday, and he does not feel that surgical PA needs to do it urgently. * He recommends wet to dry dressing for now, and Dr. Guzman also recommended dakins daily and PRN. * ID consult aprreciated. * Was given unasyn and ceftazidime in ED. Meropenem 1q8 started 01/18/17, today is abx day # 3. Cardiovascular # Hypotension, consistent with septic shock - Came in with BP 58/32, given 6L NS bolus, and was started on levophed, BP has improved. * off levophed * Diet advanced # Hx of HTN * Holding 10 mg lisinopril daily and lasix 20 mg q48 Respiratory # Hx of PE * Hold xarelto 20 mg daily, start heparin drip without bolus after placing picc line, his last dose of xarelto was 01/17/17, currently on heparin gtt. Endocrine # DM * NPO changed to novolog slidign scale with bedtime * Ct FS monitorign TIDAC/HS Heme # Chronic anemia ? active blood loss * Hb at baseline * Patient has some bleeding 2/2 to femoral line bleeding on evenign of 01/19/17. * The slight drop in H/H could be 2/2 to above. * Will continue ot montitor closely and check CBC q12 * If worsening h/h will hold heparin and transfuse * GI to see patient in am , guaic pos stools. Alimentary * Diet advanced # Continue home meds Keppra ASA Lipitor Trazodone Melatonin Percocet Q4P Diet: NPO IVF: 150ml/hr NS DVT ppx: alps FULL CODE Problem List: 1. Septic shock Pain Ratin Tomorrow's Labs & Rationales: critical care Plan DVT/Prophylaxis: pharmacological
[2017-01-19 16:00] VITALS: BP 116/70
--- NOTE | 2017-01-19 17:07 | PN- Att Addend ---
Attending Addendum Attending Brief Note Covering attending note: Patient comfortable in bed his blood pressures up to 116/70 pulse is still slightly elevated at 110 respirations 22 and temperature is 97.5. Is in no respiratory distress. His white count this morning was 19,100 his blood cultures from the are negative so far so is the urine. Stools for C. difficile are pending appreciate Dr. Jung's input and recommendations my consider restarting the VAC wound Saturday, and get infectious diseases see the patient regarding antibiotic coverage him a tapering vasodepressors, and continue close monitoring of his vital signs. Current Medications Sig/Mey Start time Last Medication Dose Route Stop Time Status Admin Acetaminophen 1,000 MG Q6P PRN 01/18 0045 AC N/A 1 UNIT IV Albuterol Sulfate 3 ML BID 01/18 1130 AC 01/19 INH 0908 Aspirin 81 MG DAILY 01/18 1000 AC 01/19 PO 1033 Atorvastatin Calcium 10 MG 1700 01/18 1700 AC 01/19 PO 1603 Guaifenesin 10 ML Q6P PRN 01/18 0215 AC 01/18 PO 2158 Heparin Sodium 25,000 UNIT Q24H 01/18 1730 AC 01/18 (Porcine) IV 2355 Sodium Chloride 500 ML Insulin Aspart 0 TIDAC/HS 01/19 1200 AC SC Insulin Human Regular 0 Q6 01/18 0021 DC 01/18 SC 0050 Ipratropium [place] 2.5 ML BID 01/18 1130 AC 01/19 INH 0908 Levetiracetam 500 MG DAILY 01/20 1000 AC PO Levetiracetam 500 MG DAILY 01/18 1000 DC 01/19 PO 1034 Melatonin 5 MG AT BEDTIME 01/18 2200 AC 01/18 PO 2129 Meropenem 1 GM IQ8 01/18 1130 AC 01/19 IV 1603 Methyl Salicylate 1 HILARIA TID PRN 01/19 1430 AC TOP Morphine Sulfate 1 MG Q6-PRN PRN 01/18 0045 AC 01/18 IV 1400 Norepinephrine 4 MG Q24H 01/20 0800 AC Sodium Chloride 250 ML IV Norepinephrine 4 MG Q12H 01/18 0800 AC 01/19 Sodium Chloride 250 ML IV 01/20 0759 0821 Omeprazole 40 MG DAILY AC 01/18 0700 AC 01/19 PO 0017 Oxycodone/ 1 TAB Q4P PRN 01/18 0930 AC 01/18 Acetaminophen PO 2350 Sodium Chloride 1,000 ML Q13H 01/20 0145 AC IV Sodium Chloride 500 ML BOLUS ONE 01/18 2015 DC 01/18 IV 01/18 Sodium Chloride 250 ML BOLUS ONE 01/18 1945 CAN IV 01/19 2044 Sodium Chloride 1,000 ML Q13H 01/17 2345 DC 01/19 IV 0604 Sodium Hypochlorite 1 HILARIA DAILY 01/18 1245 AC 01/19 TOP 1033 Trazodone HCl 25 MG Q12H PRN 01/18 0015 AC 01/18 PO 2129 Laboratory Tests 01/19/17 1240: APTT 44 H 01/19/17 1059: CBC w Diff MAN DIFF ORDERED, RBC 2.94 L, MCV 78.8 L, MCH 24.5 L, RDW 21.3 H, MPV 7.3 L, Gran % 95.4 H, Lymphocytes % 2.4 L, Monocytes % 2.2, Eosinophils % 0, Basophils % 0 L, Absolute Granulocytes 18.2 H, Segmented Neutrophils 80 H, Band Neutrophils 16 H, Absolute Lymphocytes 0.5 L, Lymphocytes 3 L, Monocytes 1 L, Absolute Monocytes 0.4, Absolute Eosinophils 0, Absolute Basophils 0, Platelet Estimate VERIFIED BY SMEAR, Polychromasia 1+, Hypochromic-Microcytic 1+ , Poikilocytosis 1+, Anisocytosis 1+, Microcytic Cells 1+, Ovalocytes 1+, PUBS MCHC 31.0 L 01/19/17 0949: APTT Cancelled 01/19/17 0550: Anion Gap 6, Estimated GFR > 60, Glucose 88, Calcium 8.0 L, Phosphorus 4.0, Magnesium 2.0, Total Bilirubin 0.4, AST 18, ALT 29, Albumin 1.8 L, APTT 43 H, CBC w Diff MAN DIFF ORDERED, RBC 2.96 L, MCV 78.7 L, MCH 24.7 L, RDW 20.8 H, MPV 7.1 L, Gran % 94.1 H, Lymphocytes % 3.4 L, Monocytes % 2.5, Eosinophils % 0, Basophils % 0 L, Absolute Granulocytes 19.7 H, Segmented Neutrophils 75, Band Neutrophils 15 H, Absolute Lymphocytes 0.7 L, Lymphocytes 10 L, Absolute Monocytes 0.5, Absolute Eosinophils 0, Absolute Basophils 0, Platelet Estimate INCREASED, Hypochromic-Microcytic 2+, Poikilocytosis 1+, Anisocytosis 1+, Delio Cells FEW, PUBS MCHC 31.4 L Microbiology Date/Time Procedure - Status Source Growth 01/19 1240 Clostridium difficile Toxin A & B - RECD STOOL 01/19 914 Respiratory Culture - RES LOWER RESP 01/19 914 Gram Stain - RES LOWER RESP Vital Signs Date Time Temp Pulse Resp B/P Pulse O2 O2 Flow FiO2 Ox Delivery Rate 01/19 1600 98 Nasal 2.0L Cannula 01/19 1600 97.5 110 22 116/70 98 Nasal 2.0L Cannula 01/19 1200 98 Nasal 3.0L Cannula 01/19 0915 95 Nasal 4.0L Cannula Intake & Output 01/19 1600 Intake Total 1484 Output Total 375 Balance 1109 Intake, IV 1004 Intake, Oral 480 Output, Stool 200 Output, Urine 175 Patient 191 lb Weight Also monitoring H&H.
[2017-01-19 18:44] LABS: ABSOLUTE BASOPHIL COUNT 0 /CUMM (0.0-0.2); ABSOLUTE EOSINOPHIL COUNT 0 /CUMM (0.0-0.7); ABSOLUTE GRANULOCYTE CT 14.5 /CUMM (1.4-6.5); ABSOLUTE LYMPH COUNT 0.5 /CUMM (1.2-3.4); ABSOLUTE MONOCYTE COUNT 0.4 /CUMM (0.10-0.60); BASOPHIL % 0 % (0.0-2.0); EOSINOPHIL % 0.1 % (0-5); GRANULOCYTE % 94.2 % (42.2-75.2); HEMATOCRIT 21.5 % (42-52); MEAN CORPUSCULAR HGB 24.5 PG (27.0-31.0); MEAN CORPUSCULAR HGB CONC 31.2 G/DL (33.0-37.0); MEAN CORPUSCULAR VOLUME 78.3 FL (80.0-94.0); MEAN PLATELET VOLUME 7.2 FL (7.4-10.4); PLATELET COUNT 431 /CUMM (130-400); RED BLOOD CELL CT 2.74 /CUMM (4.70-6.10); WHITE BLOOD CELL COUNT 15.4 /CUMM (4.8-10.8)
--- NOTE | 2017-01-19 19:12 | Event Note ---
Event Note Event Note: Brief : Drop in H/H Situation : patient repeat H/H dropped to 7.2/23.2 today am >>>>6.7/21.5 today evening. Patient has had guaic positive stools. No active bleeding noted. Assesment : Vitals :afebrile, HR 80, BP stable, 95% o2sats. PE : Respiratory: normal breath sounds Cardiovascular: regular rate/rhythm, edema Gastrointestinal: normal bowel sounds, soft, non-tender Extremities: normal inspection Plan : Will hold iv heparin for now. Will transfuse one units to maintain goal H/H above 8 Will repeat CBC posttransfusion in four hours ordered for - 1130PM 01/19/17 GI has already been called , they are to see patient in am tomorrow 01/20/17 If patient has active bleed overnight, call GI stat. Will keep him NPO after MN in anticipation if he needs further evaluation. If patient has active bleed overnight, call GI stat. Will keep him NPO after MN in anticipation if he needs further evaluation.
[2017-01-20] VITALS: BP 140/50
[2017-01-20 02:11] LABS: ABSOLUTE BASOPHIL COUNT 0 /CUMM (0.0-0.2); ABSOLUTE EOSINOPHIL COUNT 0.1 /CUMM (0.0-0.7); ABSOLUTE GRANULOCYTE CT 13.2 /CUMM (1.4-6.5); ABSOLUTE LYMPH COUNT 0.7 /CUMM (1.2-3.4); ABSOLUTE MONOCYTE COUNT 0.2 /CUMM (0.10-0.60); BASOPHIL % 0 % (0.0-2.0); EOSINOPHIL % 0.4 % (0-5); GRANULOCYTE % 93.4 % (42.2-75.2); HEMATOCRIT 23.6 % (42-52); MEAN CORPUSCULAR HGB 25.5 PG (27.0-31.0); MEAN CORPUSCULAR HGB CONC 32.3 G/DL (33.0-37.0); MEAN CORPUSCULAR VOLUME 79.1 FL (80.0-94.0); MEAN PLATELET VOLUME 7.1 FL (7.4-10.4); PLATELET COUNT 423 /CUMM (130-400); RBC DISTRIBUTION WIDTH 19.9 % (11.5-14.5); RED BLOOD CELL CT 2.99 /CUMM (4.70-6.10)
[2017-01-20 02:52] LABS: WHITE BLOOD CELL COUNT 14.1 /CUMM (4.8-10.8)
--- NOTE | 2017-01-20 07:40 | RADIOLOGY REPORT ---
EXAMINATION: XR PORTABLE CHEST CLINICAL INFORMATION: Question aspiration. COMPARISON: January 19, 2017 and studies dating back to May 07, 2014 TECHNIQUE: Portable AP view of the chest was obtained. FINDINGS: There has been some improvement in airspace disease at the right base compared to prior days study. There remains retrocardiac opacification consistent with atelectasis or pneumonitis. No pneumothorax or significant pleural effusion is appreciated. Patient status post median sternotomy. Right-sided PICC line seen with tip region of the caval atrial junction. There appears be gastric distention present. Calcific tendinitis of the left shoulder seen. IMPRESSION: Cardiomegaly without pulmonary edema. Some improvement of right base disease since previous study with continued consolidation retrocardiac region.
[2017-01-20 08:00] VITALS: BP 118/48
--- NOTE | 2017-01-20 08:18 | PN- Resident CRCU ---
Subjective HPI/CRCU Issues: Pt seen today, was more lethargic, although arousable. Heparin was held due to guaiac positive stool. According to his nurse, he has been having liquid dark brown stool since yesterday, was brick colored the day prior. Despite having received 2 units PRBC, his hb 7.7 this morning, will transfuse another unit. WBC trending down from 18.4 to 14.1, K 4.4 to 3.6, Na 137-134. 24 hr data: max temp 98 HR 106-120 ST RR 20-24 systolic bp 97-140 diastolic bp 32-61 2L NC +3630 -1745 BS 72, given 1/2 amp dextrose Fluids changed to d5ns at 75ml/hr as pt is npo. suprapubic catheter still leaks. c diff pending. Gi has seen and recommend no scope at this point, continue to hold heparin. started ppi, continue aspirin. diet advanced to clear liquid, will maintain on npo novolog sliding scale and continue current ivf. I ordered RUQ US, but pt already had breakfast, so test deferred to tomorrow morning. Objective Vital Signs & I&O Last 8 Hrs of Vitals and I&O: Intake & Output 01/20 1600 01/20 0800 01/20 0000 Intake Total 915 1231 Output Total 662 708 Balance 253 523 Intake, Blood 651 Product Intake, IV 264 651 Intake, Oral 580 Output, Stool 400 300 Output, Urine 262 408 Patient 89.556 kg Weight Laboratory Tests 01/20 01/20 01/20 0931 0345 0120 Chemistry Sodium (137 - 145 mmol/L) 134 L Potassium (3.5 - 5.1 mmol/L) 3.6 Chloride (98 - 107 mmol/L) 110 H Carbon Dioxide (22 - 30 mmol/L) 19 L Anion Gap (5 - 16) 6 BUN (9 - 20 mg/dL) 29 H Creatinine (0.7 - 1.2 mg/dL) 0.7 Estimated GFR (>60 ml/min) > 60 Glucose (65 - 99 mg/dL) 68 Calcium (8.4 - 10.2 mg/dL) 7.9 L Phosphorus (2.5 - 4.5 mg/dL) 3.1 Magnesium (1.6 - 2.3 mg/dL) 2.0 Total Bilirubin (0.2 - 1.3 mg/dL) 0.4 AST (17 - 59 U/L) 17 ALT (21 - 72 U/L) 30 Albumin (3.5 - 5.0 g/dL) 1.8 L Hematology CBC w Diff MAN DIFF ORDERED WBC (4.8 - 10.8 /CUMM) 12.3 H 14.1 H RBC (4.70 - 6.10 /CUMM) 3.02 L 2.99 L Hgb (14.0 - 18.0 G/DL) 7.7 L 7.6 L Hct (42 - 52 %) 23.9 L 23.6 L MCV (80.0 - 94.0 FL) 79.2 L 79.1 L MCH (27.0 - 31.0 PG) 25.4 L 25.5 L RDW (11.5 - 14.5 %) 19.0 H 19.9 H Plt Count (130 - 400 /CUMM) 360 423 H MPV (7.4 - 10.4 FL) 6.9 L 7.1 L Gran % (42.2 - 75.2 %) 93.6 H 93.4 H Lymphocytes % (20.5 - 51.1 %) 4.0 L 4.9 L Monocytes % (1.7 - 9.3 %) 1.4 L 1.3 L Eosinophils % (0 - 5 %) 0.9 0.4 Basophils % (0.0 - 2.0 %) 0.1 0 L Absolute Granulocytes (1.4 - 6.5 /CUMM) 11.5 H 13.2 H Segmented Neutrophils (42.2 - 75.2 %) 90 H Band Neutrophils (0.0 - 5.0 %) 5 Absolute Lymphocytes (1.2 - 3.4 /CUMM) 0.5 L 0.7 L Lymphocytes (20.5 - 51.1 %) 3 L Monocytes (1.7 - 9.3 %) 2 Absolute Monocytes (0.10 - 0.60 /CUMM) 0.2 0.2 Absolute Eosinophils (0.0 - 0.7 /CUMM) 0.1 0.1 Absolute Basophils (0.0 - 0.2 /CUMM) 0 0 Platelet Estimate (ADEQUATE) VERIFIED BY SMEAR Polychromasia 1+ Hypochromic-Microcytic 1+ Poikilocytosis 1+ Anisocytosis 1+ Microcytic Cells 1+ Ovalocytes 1+ [place] Cells 1+ PUBS MCHC (33.0 - 37.0 G/DL) 32.1 L 32.3 L 01/19 01/19 01/19 2100 1814 1240 Coagulation APTT (25 - 37 SEC) Cancelled 44 H Hematology CBC w Diff NO MAN DIFF REQ WBC (4.8 - 10.8 /CUMM) 15.4 H RBC (4.70 - 6.10 /CUMM) 2.74 L Hgb (14.0 - 18.0 G/DL) 6.7 *L Hct (42 - 52 %) 21.5 L MCV (80.0 - 94.0 FL) 78.3 L MCH (27.0 - 31.0 PG) 24.5 L RDW (11.5 - 14.5 %) 21.0 H Plt Count (130 - 400 /CUMM) 431 H MPV (7.4 - 10.4 FL) 7.2 L Gran % (42.2 - 75.2 %) 94.2 H Lymphocytes % (20.5 - 51.1 %) 3.2 L Monocytes % (1.7 - 9.3 %) 2.5 Eosinophils % (0 - 5 %) 0.1 Basophils % (0.0 - 2.0 %) 0 L Absolute Granulocytes (1.4 - 6.5 /CUMM) 14.5 H Absolute Lymphocytes (1.2 - 3.4 /CUMM) 0.5 L Absolute Monocytes (0.10 - 0.60 /CUMM) 0.4 Absolute Eosinophils (0.0 - 0.7 /CUMM) 0 Absolute Basophils (0.0 - 0.2 /CUMM) 0 PUBS MCHC (33.0 - 37.0 G/DL) 31.2 L Laboratory Tests 01/20/17 0931: CBC w Diff MAN DIFF ORDERED, RBC 3.02 L, MCV 79.2 L, MCH 25.4 L, RDW 19.0 H, MPV 6.9 L, Gran % 93.6 H, Lymphocytes % 4.0 L, Monocytes % 1.4 L, Eosinophils % 0.9, Basophils % 0.1, Absolute Granulocytes 11.5 H, Segmented Neutrophils 90 H, Band Neutrophils 5, Absolute Lymphocytes 0.5 L, Lymphocytes 3 L, Monocytes 2, Absolute Monocytes 0.2, Absolute Eosinophils 0.1, Absolute Basophils 0, Platelet Estimate VERIFIED BY SMEAR, Polychromasia 1+, Hypochromic- Microcytic 1+, Poikilocytosis 1+, Anisocytosis 1+, Microcytic Cells 1+, Ovalocytes 1+, [place] Cells 1+, PUBS MCHC 32.1 L 01/20/17 0345: Anion Gap 6, Estimated GFR > 60, Glucose 68, Calcium 7.9 L, Phosphorus 3.1, Magnesium 2.0, Total Bilirubin 0.4, AST 17, ALT 30, Albumin 1.8 L 01/20/17 0120: RBC 2.99 L, MCV 79.1 L, MCH 25.5 L, RDW 19.9 H, MPV 7.1 L, Gran % 93.4 H, Lymphocytes % 4.9 L, Monocytes % 1.3 L, Eosinophils % 0.4, Basophils % 0 L, Absolute Granulocytes 13.2 H, Absolute Lymphocytes 0.7 L, Absolute Monocytes 0.2, Absolute Eosinophils 0.1, Absolute Basophils 0, PUBS MCHC 32.3 L 01/19/17 2100: APTT Cancelled 01/19/17 1814: CBC w Diff NO MAN DIFF REQ, RBC 2.74 L, MCV 78.3 L, MCH 24.5 L, RDW 21.0 H, MPV 7.2 L, Gran % 94.2 H, Lymphocytes % 3.2 L, Monocytes % 2.5, Eosinophils % 0.1, Basophils % 0 L, Absolute Granulocytes 14.5 H, Absolute Lymphocytes 0.5 L, Absolute Monocytes 0.4, Absolute Eosinophils 0, Absolute Basophils 0, PUBS MCHC 31.2 L 01/19/17 1240: APTT 44 H Microbiology Date/Time Procedure - Status Source Growth 01/19 1240 Clostridium difficile Toxin A & B - RECD STOOL Vital Signs Date Time Temp Pulse Resp B/P Pulse O2 O2 Flow FiO2 Ox Delivery Rate 01/20 1014 95 Nasal 4.0L Cannula 01/20 0800 97.9 92 18 118/48 94 Nasal 2.0L Cannula 01/20 0800 96 Nasal 2.0L Cannula 01/20 0400 99 Nasal 2.0L Cannula 01/20 0000 97.9 119 20 140/50 98 Nasal 2.0L Cannula 01/20 0000 93 Nasal 2.0L Cannula 01/20 2032 93 Nasal 2.0L Cannula 01/19 Nasal 2.0L Cannula 01/20 1600 98 Nasal 2.0L Cannula 01/19 1600 97.5 110 22 116/70 98 Nasal 2.0L Cannula 01/19 1200 98 Nasal 3.0L Cannula Intake & Output 01/20 1600 Intake Total Output Total Balance Patient 89.556 kg Weight Exam General Appearance: lethargic Head: normal appearance Respiratory: lungs clear Cardiovascular: regular rate/rhythm Gastrointestinal: normal bowel sounds, soft, non-tender Current Medications: Current Medications Sig/Mey Start time Last Medication Dose Route Stop Time Status Admin Acetaminophen 1,000 MG Q6P PRN 01/18 0045 AC N/A 1 UNIT IV Albuterol Sulfate 3 ML BID 01/18 1130 AC 01/20 INH 1014 Aspirin 81 MG DAILY 01/18 1000 AC 01/20 PO 1028 Atorvastatin Calcium 10 MG 1700 01/18 1700 AC 01/19 PO 1603 Dextrose 12.5 GM ONCE ONE 01/20 0930 DC 01/20 IV 01/20 0931 0934 Dextrose/Sodium 1,000 ML Q13H 01/20 0930 AC 01/20 Chloride IV 0934 Guaifenesin 10 ML .STK-MED ONE 01/19 2152 DC PO 01/19 2153 Guaifenesin 10 ML Q6P PRN 01/18 0215 AC 01/19 PO 2155 Heparin Sodium 25,000 UNIT Q24H 01/18 1730 DC 01/19 (Porcine) IV 1738 Sodium Chloride 500 ML Insulin Aspart 0 TIDAC/HS 01/19 1200 DC SC Insulin Human Regular 0 Q6 01/20 1200 AC SC Ipratropium [place] 2.5 ML BID 01/18 1130 AC 01/20 INH 1014 Levetiracetam 500 MG DAILY 01/20 1000 AC 01/20 PO 1029 Levetiracetam 500 MG DAILY 01/18 1000 DC 01/19 PO 1034 Melatonin 5 MG AT BEDTIME 01/18 2200 AC 01/19 PO 2155 Meropenem 1 GM IQ8 01/18 1130 AC 01/20 IV 0749 Methyl Salicylate 1 HILARIA TID PRN 01/19 1430 AC 01/20 TOP 0617 Morphine Sulfate 1 MG Q6-PRN PRN 01/18 0045 AC 01/19 IV 2044 Norepinephrine 4 MG Q24H 01/20 0800 CAN Sodium Chloride 250 ML IV Norepinephrine 4 MG Q12H 01/18 0800 DC 01/19 Sodium Chloride 250 ML IV 01/20 0759 0821 Omeprazole 40 MG DAILY AC 01/18 0700 DC 01/20 PO 0613 Oxycodone/ 1 TAB Q4P PRN 01/18 0930 AC 01/18 Acetaminophen PO 2350 Pantoprazole Sodium 40 MG BID 01/20 1145 AC IV Potassium Chloride 20 MEQ ONCE ONE 01/20 1030 DC 01/20 IV 01/20 1031 1034 Sodium Chloride 1,000 ML Q13H 01/20 0145 DC IV Sodium Hypochlorite 1 HILARIA DAILY 01/18 1245 AC 01/20 TOP 0934 Trazodone HCl 25 MG Q12H PRN 01/18 0015 AC 01/18 PO 2129 Impression/Plan Impression/Problem List Impression: 71-year-old male with PMH paraplegia, with a chronic stage IV sacral decubitus with wound vac, ostomy and suprapubic catheter in place, MRSA, VRE treated with daptomycin, and 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 Came in with BP of 58/32 and pulse rate of 150, given fluid boluses, and required pressor support with levophed in the ICU. White count was 29k with bands. Source of sepsis unclear but include: abdominal process (keep in mind his UC grew pseudomonas which implies gut colonization as well, resistant to ceftaz and zosyn), urinary tract infection (chronic suprapubic catheter), c diff ( significant abx exposure, but no loose stool noted in the colostomy bag), ischemic colitis (hypotension, but no blood noted in the colostomy bag), stage 4 decubitus ulcer with wound vac draining serosanguinous fluid (has necrotic edges , but otherwise no obvious purulent drainage), pancreatitis, biliary process ( tender RUQ, had cholecystectomy). Lines: PICC line day # 3 Suprapubic catheter (prehospital, leaking) Femoral line removed after 1 day Problem list: # Septic shock # Nausea and bilious vomiting, abdominal tenderness ID: Septic shock - Came in with 58/32 and pulse rate of 150, ERICKA (cr 1.3, baseline 0.8), WBC 29K with bands, LA 3.6. K 6.2, Na 134. - Spoke to Dr. Jung who does not recommend debridement of the ulcer as it does not look infected and unlikely to be the source of sepsis. His CT findings would likely show findings consistent with osteomyelitis but it still will not be an indication to debride. Wound vac has been removed. - CT showed possible mild colitis, atelectasis vs PNA. * Decubitus ulcer wet to dry dressing for now, and Dr. Guzman also recommended dakins daily and PRN. * Wound consult on saturday to place wound vac * ID consulted * Follow up cx * Consider consulting urology regarding leaking suprapubic catheter * Was given unasyn and ceftazidime in ED. Meropenem 1q8 started 01/18/17, today is abx day #4 Cardiovascular # Hypotension, consistent with septic shock - Came in with BP 58/32, given 6L NS bolus, and was started on levophed, BP has improved, now off levophed * On 75ml/hr D5NS # Hx of HTN * Holding 10 mg lisinopril daily and lasix 20 mg q48 Respiratory # Hx of PE * Hold xarelto 20 mg daily. * Heparin drip was started after picc line insertion, subsequently held for bleeding post femoral line removal and guaiac positive stool. Hold heparin drip Endocrine # DM * On NPO sliding scale Heme # Acute on chronic anemia, most likely secondary to blood loss from removal of femoral line and GI blood loss (guaiac positive stool) when he was on heparin drip given hx of PE (was on xarelto prior to admission). - /: Pt transfused 2 units with hb up to 7.7 - 01/20: Transfuse another unit * Monitor CBC BID * No plan for scope now * GI consulted, clear liquid diet, continue aspirin, started IV PPI BID, hold heparin # Continue home meds Keppra ASA Lipitor Trazodone (hold if lethargic) Melatonin Percocet Q4P Diet: Clear liquid IVF: 75ml/hr D5NS DVT ppx: alps FULL CODE Consults: surgery, ID, CRCU, GI, consider urology Labs: ICU, CBC critically ill Problem List: 1. Septic shock Pain Ratin Tomorrow's Labs & Rationales: ICU and CBC critically ill Plan DVT/Prophylaxis: mechanical
[2017-01-20 09:42] LABS: ABSOLUTE BASOPHIL COUNT 0 /CUMM (0.0-0.2); ABSOLUTE EOSINOPHIL COUNT 0.1 /CUMM (0.0-0.7); ABSOLUTE GRANULOCYTE CT 11.5 /CUMM (1.4-6.5); ABSOLUTE LYMPH COUNT 0.5 /CUMM (1.2-3.4); ABSOLUTE MONOCYTE COUNT 0.2 /CUMM (0.10-0.60); BASOPHIL % 0.1 % (0.0-2.0); EOSINOPHIL % 0.9 % (0-5); GRANULOCYTE % 93.6 % (42.2-75.2); HEMATOCRIT 23.9 % (42-52); MEAN CORPUSCULAR HGB 25.4 PG (27.0-31.0); MEAN CORPUSCULAR HGB CONC 32.1 G/DL (33.0-37.0); MEAN CORPUSCULAR VOLUME 79.2 FL (80.0-94.0); MEAN PLATELET VOLUME 6.9 FL (7.4-10.4); PLATELET COUNT 360 /CUMM (130-400); RED BLOOD CELL CT 3.02 /CUMM (4.70-6.10); WHITE BLOOD CELL COUNT 12.3 /CUMM (4.8-10.8)
--- NOTE | 2017-01-20 10:16 | Cons- Gastroenterology ---
General Information and HPI Consulting Request Date of Consult: 01/20/17 (MD [facility]QUIS/GASTROENTEROLOGY) Requested By: SLIM COLE MD Reason for Consult: GI bleed Source of Information: old records Exam Limitations: unable to give history, not alert/orientated (lethargic) History of Present Illness: 71-year-old male, paraplegic, with decubitus ulceration recently requiring diversion colostomy, admitted with sepsis and placed on pressors. The pressors were stopped yesterday afternoon. No documented history of previous GI illness including peptic ulcer disease or colitis. The patient has been chronically anticoagulated; he was placed on bridging IV heparin, and was noted to have "brick-colored" ostomy output yesterday morning. Since then the stools have been brown, but Hemoccult positive. He was noted to have a drop in hemoglobin/ hematocrit. Heparin and aspirin were put on hold. The patient denies nausea, abdominal pain, or history of liver disease. Allergies/Medications Allergies: Coded Allergies: ibuprofen (UNKNOWN 01/18/17) Home Med List: Acetaminophen (Q-Pap) 325 MG TABLET 2 TAB PO Q4H PRN PAIN/TEMP>/100 (Reported ) Acetaminophen (Acephen) 650 MG SUPP.RECT 1 SUPP VT Q4H PRN PAIN/TEMP>100 ( Reported) Albuterol Sulfate 2.5 MG/3 ML (0.083 %) VIAL.NEB 1 Vial INH/DARRON Q4P WHILE AWAKE-RESPIRATORY (Reported) Amino Acids/Protein Hydrolys (Pro-Stat Sugar Free Liquid) (Unknown Strength) LIQUID 30 ML PO BID SUPPLEMENT (Reported) Aspirin (Ecotrin*) 81 MG TABLET.DR 1 TAB PO DAILY HEART/BLOOD (Reported) Atorvastatin Calcium (Lipitor) 10 MG TABLET 1 TAB PO DAILY CHOLESTEROL ( Reported) Baclofen 10 MG TABLET 1 TAB PO DAILY UNKNOWN (Reported) Benazepril HCl 10 MG TABLET 1 TAB PO DAILY BP (Reported) Bisacodyl 10 MG SUPP.RECT 1 SUP RC PRN CONSTIPATION (Reported) Cyanocobalamin (Vitamin B-12) (Vitamin B-12) 100 MCG TABLET 1 TAB PO DAILY SUPPLEMENT (Reported) Ergocalciferol (Vitamin D2) (Vitamin D2) 50,000 UNIT CAPSULE 1 CAP PO Q30D SUPPLEMENT (Reported) Furosemide (Lasix) 20 MG TABLET 1 TAB PO EOD DIURETIC (Reported) Ipratropium/Albuterol Sulfate (Iprat-Albut 0.5-3(2.5) MG/3 Ml) 0.5 MG-3 MG (2.5 MG BASE)/3 ML AMPUL.NEB 1 VIAL INH TID RESPIRATORY (Reported) Levetiracetam (Keppra) 500 MG TABLET 1 TAB PO QAM UNKNOWN (Reported) Lisinopril (Zestril) 10 MG TABLET 1 TAB PO DAILY BP (Reported) Magnesium Hydroxide (Milk Of Magnesia) 400 MG/5 ML ORAL.SUSP 30 ML PO DAILY PRN CONSTIPATION (Reported) Melatonin 5 MG TABLET 1 TAB PO QHS SLEEP (Reported) Metformin HCl 500 MG TABLET 1 TAB PO BID DM (Reported) Mirtazapine 15 MG TABLET 0.5 TAB PO QHS UNKNOWN (Reported) Mometasone/Formoterol (Dulera 100 Mcg/5 Mcg Inhaler) 100 MCG-5 MCG/ACTUATION HFA.AER.AD 2 PUF INH BID RESPIRATORY (Reported) Multivitamin (Multi-Day Vitamins) 1 EACH TABLET 1 TAB PO DAILY SUPPLEMENT ( Reported) Na Phos,M-B/Na Phos,Di-Ba (Fleet Enema) 19 GRAM-7 GRAM/118 ML ENEMA 1 E RC DAILY PRN CONSTIPATION (Reported) [place]-3/Dha/Epa/Fish Oil (Fish Oil 1,000 MG Softgel) 1,000 MG (120 MG-180 MG) CAPSULE 1 CAP PO DAILY SUPPLEMENT (Reported) Omeprazole 20 MG CAPSULE.DR 1 CAP PO DAILY GI (Reported) Ondansetron HCl (Zofran) 4 MG TABLET 1 TAB PO Q8H PRN N/V (Reported) Oxycodone HCl 10 MG TABLET 1 TAB PO Q8H PAIN (Reported) Potassium Chloride 20 MEQ TAB.ER.PRT 1 TAB PO QPM SUPPLEMENT (Reported) Psyllium Husk (Metamucil) (Unknown Strength) CAPSULE 1 CAP PO DAILY SUPPLEMENT (Reported) Rivaroxaban (Xarelto) 20 MG TABLET 1 TAB PO DAILY Pumonary Embolism with food Please start medication on 01/18/17 Rivaroxaban (Xarelto) 15 MG TABLET 15 MG PO BID Pulmonary Embolism Please continue this dose until 01/17/17. then continue 20mg daily. Saccharomyces Boulardii (Florastor) 250 MG CAPSULE 1 TAB PO QHS PROBIOTIC ( Reported) Tolterodine Tartrate (Detrol LA) 4 MG CAP.ER.24H 1 CAP PO DAILY BLADDER ( Reported) Trazodone HCl 50 MG TABLET 0.5 TAB PO Q12H PRN UNKNOWN (Reported) Current Medications: Current Medications Sig/Mey Start time Last Medication Dose Route Stop Time Status Admin Acetaminophen 1,000 MG Q6P PRN 01/18 0045 AC N/A 1 UNIT IV Albuterol Sulfate 3 ML BID 01/18 1130 AC 01/19 INH 202 Aspirin 81 MG DAILY 01/18 1000 AC 01/19 PO 1033 Atorvastatin Calcium 10 MG 1700 01/18 1700 AC 01/19 PO 1603 Dextrose 12.5 GM ONCE ONE 01/20 0930 DC 01/20 IV 01/20 0931 0934 Dextrose/Sodium 1,000 ML Q13H 01/20 0930 AC 01/20 Chloride IV 0934 Guaifenesin 10 ML .STK-MED ONE 01/19 2152 DC PO 01/19 2153 Guaifenesin 10 ML Q6P PRN 01/18 0215 AC 01/19 PO 2155 Heparin Sodium 25,000 UNIT Q24H 01/18 1730 DC 01/19 (Porcine) IV 1738 Sodium Chloride 500 ML Insulin Aspart 0 TIDAC/HS 01/19 1200 DC SC Insulin Human Regular 0 Q6 01/20 1200 AC SC Insulin Human Regular 0 Q6 01/18 0021 DC 01/18 SC 0050 Ipratropium [place] 2.5 ML BID 01/18 1130 AC 01/19 INH 2026 Levetiracetam 500 MG DAILY 01/20 1000 AC PO Levetiracetam 500 MG DAILY 01/18 1000 DC 01/19 PO 1034 Melatonin 5 MG AT BEDTIME 01/18 2200 AC 01/19 PO 2155 Meropenem 1 GM IQ8 01/18 1130 AC 01/20 IV 0749 Methyl Salicylate 1 HILARIA TID PRN 01/19 1430 AC 01/20 TOP 0617 Morphine Sulfate 1 MG Q6-PRN PRN 01/18 0045 AC 01/19 IV 2044 Norepinephrine 4 MG Q24H 01/20 0800 CAN Sodium Chloride 250 ML IV Norepinephrine 4 MG Q12H 01/18 0800 DC 01/19 Sodium Chloride 250 ML IV 01/20 0759 0821 Omeprazole 40 MG DAILY AC 01/18 0700 AC 01/20 PO 0613 Oxycodone/ 1 TAB Q4P PRN 01/18 0930 AC 01/18 Acetaminophen PO 2350 Sodium Chloride 1,000 ML Q13H 01/20 0145 DC IV Sodium Chloride 1,000 ML Q13H 01/17 2345 DC 01/19 IV 0604 Sodium Hypochlorite 1 HILARIA DAILY 01/18 1245 AC 01/20 TOP 0934 Trazodone HCl 25 MG Q12H PRN 01/18 0015 AC 01/18 PO 2129 Past History Travel History Traveled to [place] past 21 day No Medical History Blood Transfusion Hx: Yes Neurological: PARAPLEGIA STATUS POST SPINAL SHOCK POSTOP EENT: NONE Cardiovascular: CAD, hypertension, hyperlipidemia, ABDOMINAL ANEURYSM Respiratory: asthma, pulmonary embolism Gastrointestinal: GERD Hepatic: NONE Renal: neurogenic bladder, UTI Musculoskeletal: decubitis ulcer (OSTEOMYELITIS) Psychiatric: anxiety, depression Endocrine: DIABETES TYPE 2 Blood Disorders: NONE Cancer(s): prostate cancer 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 [facility] Facility Services at Home: Home Health Aide, Nursing Primary Language: Mexican Smoking Status: Never Smoked Functional Ability ADLs Independent: eating. Needs Assist: dressing, toileting, bathing. Ambulation: non-ambulatory IADLs Needs Assist: shopping, housework, finances, food prep, telephone, transportation, medication admin. Review of Systems Review of Systems: Unobtainable Exam & Diagnostic Data Vital Signs and I&O Vital Signs Date Time Temp Pulse Resp B/P Pulse O2 O2 Flow FiO2 Ox Delivery Rate 01/20 08 97.9 92 18 118/48 94 Nasal 2.0L Cannula 01/20 08 96 Nasal 2.0L Cannula 01/20 0400 99 Nasal 2.0L Cannula 01/20 0000 97.9 119 20 140/50 98 Nasal 2.0L Cannula 01/20 0000 93 Nasal 2.0L Cannula 01/20 2032 93 Nasal 2.0L Cannula 01/20 2000 97 Nasal 2.0L Cannula 01/19 1600 98 Nasal 2.0L Cannula 01/19 1600 97.5 110 22 116/70 98 Nasal 2.0L Cannula 01/19 1200 98 Nasal 3.0L Cannula Intake & Output 01/20 Intake Total 915 1231 3279 2009 2933 5000 Output Total 341 161 2407 225 576 Balance 596 068 6708 1784 2357 5000 Intake, Blood 651 Product Intake, IV 303 231 4515 1749 2713 5000 Intake, Oral 580 880 260 220 Number 0 1 Bowel Movements Output, 1450 Gastric Drainage Output, Stool 400 300 200 0 1 Output, Urine 262 408 250 225 575 Patient 197 lb 191 lb 191 lb 174 lb 174 lb Weight Physical Exam: Lethargic male. Skin with multiple tattoos, no jaundice, no rash or lesion. No adenopathy. Sclera anicteric. Oropharynx normal. Neck supple without JVD. Heart with regular rhythm. Lungs clear anterolaterally. Abdomen is obese, soft , nondistended; no tenderness, mass, organomegaly; intact suprapubic catheter, and left-sided ostomy. Extremities with bilateral pedal edema, and diminished but present pulses. Results Pertinent Lab Results: Laboratory Tests 01/20 01/20 01/20 0931 0345 0120 Chemistry Sodium (137 - 145 mmol/L) 134 L Potassium (3.5 - 5.1 mmol/L) 3.6 Chloride (98 - 107 mmol/L) 110 H Carbon Dioxide (22 - 30 mmol/L) 19 L Anion Gap (5 - 16) 6 BUN (9 - 20 mg/dL) 29 H Creatinine (0.7 - 1.2 mg/dL) 0.7 Estimated GFR (>60 ml/min) > 60 Glucose (65 - 99 mg/dL) 68 Calcium (8.4 - 10.2 mg/dL) 7.9 L Phosphorus (2.5 - 4.5 mg/dL) 3.1 Magnesium (1.6 - 2.3 mg/dL) 2.0 Total Bilirubin (0.2 - 1.3 mg/dL) 0.4 AST (17 - 59 U/L) 17 ALT (21 - 72 U/L) 30 Albumin (3.5 - 5.0 g/dL) 1.8 L Hematology CBC w Diff MAN DIFF ORDERED WBC (4.8 - 10.8 /CUMM) 12.3 H 14.1 H RBC (4.70 - 6.10 /CUMM) 3.02 L 2.99 L Hgb (14.0 - 18.0 G/DL) 7.7 L 7.6 L Hct (42 - 52 %) 23.9 L 23.6 L MCV (80.0 - 94.0 FL) 79.2 L 79.1 L MCH (27.0 - 31.0 PG) 25.4 L 25.5 L RDW (11.5 - 14.5 %) 19.0 H 19.9 H Plt Count (130 - 400 /CUMM) 360 423 H MPV (7.4 - 10.4 FL) 6.9 L 7.1 L Gran % (42.2 - 75.2 %) 93.6 H 93.4 H Lymphocytes % (20.5 - 51.1 %) 4.0 L 4.9 L Monocytes % (1.7 - 9.3 %) 1.4 L 1.3 L Eosinophils % (0 - 5 %) 0.9 0.4 Basophils % (0.0 - 2.0 %) 0.1 0 L Absolute Granulocytes (1.4 - 6.5 /CUMM) 11.5 H 13.2 H Segmented Neutrophils (42.2 - 75.2 %) Pending Absolute Lymphocytes (1.2 - 3.4 /CUMM) 0.5 L 0.7 L Absolute Monocytes (0.10 - 0.60 /CUMM) 0.2 0.2 Absolute Eosinophils (0.0 - 0.7 /CUMM) 0.1 0.1 Absolute Basophils (0.0 - 0.2 /CUMM) 0 0 PUBS MCHC (33.0 - 37.0 G/DL) 32.1 L 32.3 L 01/19 01/19 04 2100 1814 1240 Coagulation APTT (25 - 37 SEC) Cancelled 44 H Hematology CBC w Diff NO MAN DIFF REQ WBC (4.8 - 10.8 /CUMM) 15.4 H RBC (4.70 - 6.10 /CUMM) 2.74 L Hgb (14.0 - 18.0 G/DL) 6.7 *L Hct (42 - 52 %) 21.5 L MCV (80.0 - 94.0 FL) 78.3 L MCH (27.0 - 31.0 PG) 24.5 L RDW (11.5 - 14.5 %) 21.0 H Plt Count (130 - 400 /CUMM) 431 H MPV (7.4 - 10.4 FL) 7.2 L Gran % (42.2 - 75.2 %) 94.2 H Lymphocytes % (20.5 - 51.1 %) 3.2 L Monocytes % (1.7 - 9.3 %) 2.5 Eosinophils % (0 - 5 %) 0.1 Basophils % (0.0 - 2.0 %) 0 L Absolute Granulocytes (1.4 - 6.5 /CUMM) 14.5 H Absolute Lymphocytes (1.2 - 3.4 /CUMM) 0.5 L Absolute Monocytes (0.10 - 0.60 /CUMM) 0.4 Absolute Eosinophils (0.0 - 0.7 /CUMM) 0 Absolute Basophils (0.0 - 0.2 /CUMM) 0 PUBS MCHC (33.0 - 37.0 G/DL) 31.2 L 01/19 01/19 1059 0949 Coagulation APTT Cancelled Hematology CBC w Diff MAN DIFF ORDERED WBC (4.8 - 10.8 /CUMM) 19.1 H RBC (4.70 - 6.10 /CUMM) 2.94 L Hgb (14.0 - 18.0 G/DL) 7.2 *L Hct (42 - 52 %) 23.2 L MCV (80.0 - 94.0 FL) 78.8 L MCH (27.0 - 31.0 PG) 24.5 L RDW (11.5 - 14.5 %) 21.3 H Plt Count (130 - 400 /CUMM) 487 H MPV (7.4 - 10.4 FL) 7.3 L Gran % (42.2 - 75.2 %) 95.4 H Lymphocytes % (20.5 - 51.1 %) 2.4 L Monocytes % (1.7 - 9.3 %) 2.2 Eosinophils % (0 - 5 %) 0 Basophils % (0.0 - 2.0 %) 0 L Absolute Granulocytes (1.4 - 6.5 /CUMM) 18.2 H Segmented Neutrophils (42.2 - 75.2 %) 80 H Band Neutrophils (0.0 - 5.0 %) 16 H Absolute Lymphocytes (1.2 - 3.4 /CUMM) 0.5 L Lymphocytes (20.5 - 51.1 %) 3 L Monocytes (1.7 - 9.3 %) 1 L Absolute Monocytes (0.10 - 0.60 /CUMM) 0.4 Absolute Eosinophils (0.0 - 0.7 /CUMM) 0 Absolute Basophils (0.0 - 0.2 /CUMM) 0 Platelet Estimate (ADEQUATE) VERIFIED BY SMEAR Polychromasia 1+ Hypochromic-Microcytic 1+ Poikilocytosis 1+ Anisocytosis 1+ Microcytic Cells 1+ Ovalocytes 1+ PUBS MCHC (33.0 - 37.0 G/DL) 31.0 L 01/19 01/18 01/18 0550 1115 0510 Chemistry Sodium (137 - 145 mmol/L) 137 138 Potassium (3.5 - 5.1 mmol/L) 4.4 5.1 Chloride (98 - 107 mmol/L) 114 H 112 H Carbon Dioxide (22 - 30 mmol/L) 17 L 15 L Anion Gap (5 - 16) 6 11 BUN (9 - 20 mg/dL) 41 H 43 H Creatinine (0.7 - 1.2 mg/dL) 0.9 1.0 Estimated GFR (>60 ml/min) > 60 > 60 BUN/Creatinine Ratio (7 - 25 %) 43.0 H Glucose (65 - 99 mg/dL) 88 Calcium (8.4 - 10.2 mg/dL) 8.0 L Phosphorus (2.5 - 4.5 mg/dL) 4.0 Magnesium (1.6 - 2.3 mg/dL) 2.0 Total Bilirubin (0.2 - 1.3 mg/dL) 0.4 AST (17 - 59 U/L) 18 ALT (21 - 72 U/L) 29 Albumin (3.5 - 5.0 g/dL) 1.8 L Triglycerides (<150 mg/dL) 95 Amylase (30 - 110 U/L) 793 H Lipase (23 - 300 U/L) 51 Coagulation PT (9.4 - 12.5 SEC) 18.3 H INR (0.90 - 1.17) 1.75 H APTT (25 - 37 SEC) 43 H 32 Hematology CBC w Diff MAN DIFF ORDERED WBC (4.8 - 10.8 /CUMM) 20.9 H RBC (4.70 - 6.10 /CUMM) 2.96 L Hgb (14.0 - 18.0 G/DL) 7.3 *L Hct (42 - 52 %) 23.3 L MCV (80.0 - 94.0 FL) 78.7 L MCH (27.0 - 31.0 PG) 24.7 L RDW (11.5 - 14.5 %) 20.8 H Plt Count (130 - 400 /CUMM) 489 H MPV (7.4 - 10.4 FL) 7.1 L Gran % (42.2 - 75.2 %) 94.1 H Lymphocytes % (20.5 - 51.1 %) 3.4 L Monocytes % (1.7 - 9.3 %) 2.5 Eosinophils % (0 - 5 %) 0 Basophils % (0.0 - 2.0 %) 0 L Absolute Granulocytes (1.4 - 6.5 /CUMM) 19.7 H Segmented Neutrophils (42.2 - 75.2 %) 75 Band Neutrophils (0.0 - 5.0 %) 15 H Absolute Lymphocytes (1.2 - 3.4 /CUMM) 0.7 L Lymphocytes (20.5 - 51.1 %) 10 L Absolute Monocytes (0.10 - 0.60 /CUMM) 0.5 Absolute Eosinophils (0.0 - 0.7 /CUMM) 0 Absolute Basophils (0.0 - 0.2 /CUMM) 0 Platelet Estimate (ADEQUATE) INCREASED Hypochromic-Microcytic 2+ Poikilocytosis 1+ Anisocytosis 1+ [place] Cells FEW PUBS MCHC (33.0 - 37.0 G/DL) 31.4 L ESR W[place]gren (0 - 10 MM) 66 H 01/18 01/18 01/17 0510 0030 1914 Chemistry Sodium (137 - 145 mmol/L) 138 136 L Potassium (3.5 - 5.1 mmol/L) 5.2 H 5.4 H Chloride (98 - 107 mmol/L) 111 H 111 H Carbon Dioxide (22 - 30 mmol/L) 16 L 17 L Anion Gap (5 - 16) 11 8 BUN (9 - 20 mg/dL) 42 H 42 H Creatinine (0.7 - 1.2 mg/dL) 1.1 1.1 Estimated GFR (>60 ml/min) > 60 > 60 Glucose (65 - 99 mg/dL) 128 H 167 H Lactic Acid (0.7 - 2.1 mmol/L) 1.8 3.1 H Calcium (8.4 - 10.2 mg/dL) 8.1 L 8.4 Phosphorus (2.5 - 4.5 mg/dL) 4.9 H 5.6 H Magnesium (1.6 - 2.3 mg/dL) 2.0 1.9 Total Bilirubin (0.2 - 1.3 mg/dL) 0.5 0.5 AST (17 - 59 U/L) 21 22 ALT (21 - 72 U/L) 31 30 Alkaline Phosphatase (< 127 U/L) 191 H Albumin (3.5 - 5.0 g/dL) 2.2 L 2.3 L Hematology CBC w Diff MAN DIFF ORDERED WBC (4.8 - 10.8 /CUMM) 27.9 H RBC (4.70 - 6.10 /CUMM) 3.58 L Hgb (14.0 - 18.0 G/DL) 8.8 L Hct (42 - 52 %) 28.2 L MCV (80.0 - 94.0 FL) 78.8 L MCH (27.0 - 31.0 PG) 24.6 L RDW (11.5 - 14.5 %) 20.9 H Plt Count (130 - 400 /CUMM) 560 H MPV (7.4 - 10.4 FL) 7.1 L Gran % (42.2 - 75.2 %) 92.9 H Lymphocytes % (20.5 - 51.1 %) 2.9 L Monocytes % (1.7 - 9.3 %) 4.2 Eosinophils % (0 - 5 %) 0 Basophils % (0.0 - 2.0 %) 0 L Absolute Granulocytes (1.4 - 6.5 /CUMM) 26.0 H Segmented Neutrophils (42.2 - 75.2 %) 85 H Band Neutrophils (0.0 - 5.0 %) 10 H Absolute Lymphocytes (1.2 - 3.4 /CUMM) 0.8 L Lymphocytes (20.5 - 51.1 %) 2 L Monocytes (1.7 - 9.3 %) 3 Absolute Monocytes (0.10 - 0.60 /CUMM) 1.2 H Absolute Eosinophils (0.0 - 0.7 /CUMM) 0 Absolute Basophils (0.0 - 0.2 /CUMM) 0 Platelet Estimate (ADEQUATE) INCREASED Polychromasia 1+ Hypochromic-Microcytic 1+ Poikilocytosis 1+ Anisocytosis 1+ Microcytic Cells 1+ Ovalocytes 1+ Stomatocytes FEW PUBS MCHC (33.0 - 37.0 G/DL) 31.2 L Other Body Source Fld Total RBCs Counted (%) 100 01/17 01/17 1905 1615 Blood Gas pH (7.35 - 7.45 PH) 7.26 *L pCO2 (35 - 45 TORR) 34 L pO2 (80 - 100 TORR) 124 H HCO3 (21 - 28 MEQ/L) 15 L ABG O2 Sat (Measured) (>96.0 %) 97.0 P-50 (Temp Corrected) Y Carboxyhemoglobin (1.5 - 5.0 %) 0.3 L O2 Concentration % 60% Temperature (97.0 - 100.0 FARH) 100.2 H O2 Delivery Method PRB Miscellaneous Phlebotomy Draw Site RIGHT RADIAL Urines Urinalysis MOD H Urine Color (YEL,AMB,STR) YEL Urine Clarity (CLEAR) CLEAR Urine pH (5.0 - 8.0) 5.5 Ur Specific [place] (1.001 - 1.035) 1.020 Urine Protein (NEG,<30 MG/DL) 100 H Urine Ketones (NEG) TRACE H Urine Nitrite (NEG) NEG Urine Bilirubin (NEG) NEG Urine Urobilinogen (0.1 - 1.0 EU/dl) 0.2 Ur Leukocyte Esterase (NEG) TRACE H Ur Microscopic SEDIMENT EXAMINED Urine RBC (0 - 5 /HPF) 10-15 H Urine WBC (0 - 2 /HPF) 3-5 H Ur Epithelial Cells (NONE,FEW) FEW Urine Crystals 1+ CA OX H Urine Bacteria (NEG/NONE) FEW H Granular Casts (NONE /LPF) 1-3 H Urine Mucus (FEW,NONE) MOD H Urine Hemoglobin (NEG) SMALL H Urine Glucose (N MG/DL) NEG 01/17 1600 Chemistry Sodium (137 - 145 mmol/L) 134 L Potassium (3.5 - 5.1 mmol/L) 6.2 *H Chloride (98 - 107 mmol/L) 104 Carbon Dioxide (22 - 30 mmol/L) 18 L Anion Gap (5 - 16) 13 BUN (9 - 20 mg/dL) 44 H Creatinine (0.7 - 1.2 mg/dL) 1.3 H Estimated GFR (>60 ml/min) 55 L BUN/Creatinine Ratio (7 - 25 %) 33.8 H Glucose (65 - 99 mg/dL) 152 H Lactic Acid (0.7 - 2.1 mmol/L) 3.6 H Calcium (8.4 - 10.2 mg/dL) 9.2 Troponin I (<0.11 ng/ml) < 0.01 Ofn-F-Dcofgjrivix Pept (<125 pg/mL) 373 H Hematology CBC w Diff MAN DIFF ORDERED WBC (4.8 - 10.8 /CUMM) 29.8 H RBC (4.70 - 6.10 /CUMM) 4.16 L Hgb (14.0 - 18.0 G/DL) 10.2 L Hct (42 - 52 %) 32.9 L MCV (80.0 - 94.0 FL) 78.9 L MCH (27.0 - 31.0 PG) 24.5 L RDW (11.5 - 14.5 %) 21.2 H Plt Count (130 - 400 /CUMM) 658 H MPV (7.4 - 10.4 FL) 7.6 Gran % (42.2 - 75.2 %) 90.5 H Lymphocytes % (20.5 - 51.1 %) 2.2 L Monocytes % (1.7 - 9.3 %) 7.3 Eosinophils % (0 - 5 %) 0 Basophils % (0.0 - 2.0 %) 0 L Absolute Granulocytes (1.4 - 6.5 /CUMM) 26.9 H Segmented Neutrophils (42.2 - 75.2 %) 75 Band Neutrophils (0.0 - 5.0 %) 6 H Absolute Lymphocytes (1.2 - 3.4 /CUMM) 0.6 L Lymphocytes (20.5 - 51.1 %) 3 L Monocytes (1.7 - 9.3 %) 16 H Absolute Monocytes (0.10 - 0.60 /CUMM) 2.2 H Absolute Eosinophils (0.0 - 0.7 /CUMM) 0 Absolute Basophils (0.0 - 0.2 /CUMM) 0 Platelet Estimate (ADEQUATE) INCREASED Polychromasia 1+ Anisocytosis 1+ Microcytic Cells 1+ PUBS MCHC (33.0 - 37.0 G/DL) 31.0 L Assessment/Plan Assessment/Recommendations: Evidence of GI bleeding, with Hemoccult-positive stool, and drop in hemoglobin. The patient was both on anticoagulation and aspirin. At present no overt bleeding. Mild hypotension, but stable since taken off pressors. Hemoglobin/ hematocrit have stabilized after 2 units of packed red blood cells. Recommendations * Continue to hold heparin * May continue aspirin * IV PPI twice a day * Clear liquid diet * CBC twice daily, and maintain hemoglobin greater than 8 (transfuse third unit of packed red blood cells now) * Will defer EGD for now but will reassess (especially stability of hemoglobin) in the morning Copies To: KELSEY MULLIGAN,SLIM Avalos Consult Acknowledgment - Thank you for your consult request.
--- NOTE | 2017-01-20 11:11 | PN- CRCU ---
Subjective HPI/Critical Care Issues: The patient remains lethargic but arousable. His respiratory status has significantly improved over the past 24 hours. His oxygen requirement has decreased from 4 L nasal cannula, now down to 2 L nasal cannula. His saturations are in the mid to high 90s. He no longer has audible rhonchi. He remains afebrile. His blood pressure has significantly improved and he is now off Levophed. There has been no report of obvious bleeding. He has received 2 units of packed red blood cells over the past 24 hours. His suprapubic catheter continues to leak. Objective Current Medications: Current Medications Sig/Mey Start time Last Medication Dose Route Stop Time Status Admin Acetaminophen 1,000 MG Q6P PRN 01/18 0045 AC N/A 1 UNIT IV Albuterol Sulfate 3 ML BID 01/18 1130 AC 01/20 INH 1014 Aspirin 81 MG DAILY 01/18 1000 AC 01/20 PO 1028 Atorvastatin Calcium 10 MG 1700 01/18 1700 AC 01/19 PO 1603 Dextrose 12.5 GM ONCE ONE 01/20 0930 DC 01/20 IV 01/20 0931 0934 Dextrose/Sodium 1,000 ML Q13H 01/20 0930 AC 01/20 Chloride IV 0934 Guaifenesin 10 ML .STK-MED ONE 01/19 2152 DC PO 01/19 2153 Guaifenesin 10 ML Q6P PRN 01/18 0215 AC 01/19 PO 2155 Heparin Sodium 25,000 UNIT Q24H 01/18 1730 DC 01/19 (Porcine) IV 1738 Sodium Chloride 500 ML Insulin Aspart 0 TIDAC/HS 01/19 1200 DC SC Insulin Human Regular 0 Q6 01/20 1200 AC SC Ipratropium [place] 2.5 ML BID 01/18 1130 AC 01/20 INH 1014 Levetiracetam 500 MG DAILY 01/20 1000 AC 01/20 PO 1029 Levetiracetam 500 MG DAILY 01/18 1000 DC 01/19 PO 1034 Melatonin 5 MG AT BEDTIME 01/18 2200 AC 01/19 PO 2155 Meropenem 1 GM IQ8 01/18 1130 AC 01/20 IV 0749 Methyl Salicylate 1 HILARIA TID PRN 01/19 1430 AC 01/20 TOP 0617 Morphine Sulfate 1 MG Q6-PRN PRN 01/18 0045 AC 01/19 IV 2044 Norepinephrine 4 MG Q24H 01/20 0800 CAN Sodium Chloride 250 ML IV Norepinephrine 4 MG Q12H 01/18 0800 DC 01/19 Sodium Chloride 250 ML IV 01/20 0759 0821 Omeprazole 40 MG DAILY AC 01/18 0700 AC 01/20 PO 0613 Oxycodone/ 1 TAB Q4P PRN 01/18 0930 AC 01/18 Acetaminophen PO 2350 Potassium Chloride 20 MEQ ONCE ONE 01/20 1030 DC 01/20 IV 01/20 1031 1034 Sodium Chloride 1,000 ML Q13H 01/20 0145 DC IV Sodium Hypochlorite 1 HILARIA DAILY 01/18 1245 AC 01/20 TOP 0934 Trazodone HCl 25 MG Q12H PRN 01/18 0015 AC 01/18 PO 2129 Vital Signs & I&O Last 24 Hrs of Vitals and I&O: Vital Signs Date Time Temp Pulse Resp B/P Pulse O2 O2 Flow FiO2 Ox Delivery Rate 01/20 1014 95 Nasal 4.0L Cannula 01/20 08 97.9 92 18 118/48 94 Nasal 2.0L Cannula 01/20 08 96 Nasal 2.0L Cannula 01/20 0400 99 Nasal 2.0L Cannula 01/20 0000 97.9 119 20 140/50 98 Nasal 2.0L Cannula 01/20 0000 93 Nasal 2.0L Cannula 01/19 203 93 Nasal 2.0L Cannula 01/20 2000 97 Nasal 2.0L Cannula 01/19 1600 98 Nasal 2.0L Cannula 01/19 1600 97.5 110 22 116/70 98 Nasal 2.0L Cannula 01/19 1200 98 Nasal 3.0L Cannula Intake & Output 01/20 1600 01/20 0800 01/20 0000 Intake Total 915 1231 Output Total 662 708 Balance 253 523 Intake, Blood 651 Product Intake, IV 264 651 Intake, Oral 580 Output, Stool 400 300 Output, Urine 262 408 Patient 197 lb Weight Physical Exam General Appearance: alert, awake, comfortable Head: normal appearance Neck: normal inspection, supple Respiratory: diffuse rhonchi, some crackles at the bases Cardiovascular: regular rate/rhythm, tachycardia Gastrointestinal: normal bowel sounds, soft, non-tender Skin: warm and dry, no significant edema Results Last 24 Hrs of Lab Results: Laboratory Tests 01/20/17 0931: CBC w Diff MAN DIFF ORDERED, RBC 3.02 L, MCV 79.2 L, MCH 25.4 L, RDW 19.0 H, MPV 6.9 L, Gran % 93.6 H, Lymphocytes % 4.0 L, Monocytes % 1.4 L, Eosinophils % 0.9, Basophils % 0.1, Absolute Granulocytes 11.5 H, Segmented Neutrophils 90 H, Band Neutrophils 5, Absolute Lymphocytes 0.5 L, Lymphocytes 3 L, Monocytes 2, Absolute Monocytes 0.2, Absolute Eosinophils 0.1, Absolute Basophils 0, Platelet Estimate VERIFIED BY SMEAR, Polychromasia 1+, Hypochromic- Microcytic 1+, Poikilocytosis 1+, Anisocytosis 1+, Microcytic Cells 1+, Ovalocytes 1+, [place] Cells 1+, PUBS MCHC 32.1 L 01/20/17 0345: Anion Gap 6, Estimated GFR > 60, Glucose 68, Calcium 7.9 L, Phosphorus 3.1, Magnesium 2.0, Total Bilirubin 0.4, AST 17, ALT 30, Albumin 1.8 L 01/20/17 0120: RBC 2.99 L, MCV 79.1 L, MCH 25.5 L, RDW 19.9 H, MPV 7.1 L, Gran % 93.4 H, Lymphocytes % 4.9 L, Monocytes % 1.3 L, Eosinophils % 0.4, Basophils % 0 L, Absolute Granulocytes 13.2 H, Absolute Lymphocytes 0.7 L, Absolute Monocytes 0.2, Absolute Eosinophils 0.1, Absolute Basophils 0, PUBS MCHC 32.3 L 01/19/17 2100: APTT Cancelled 01/19/17 1814: CBC w Diff NO MAN DIFF REQ, RBC 2.74 L, MCV 78.3 L, MCH 24.5 L, RDW 21.0 H, MPV 7.2 L, Gran % 94.2 H, Lymphocytes % 3.2 L, Monocytes % 2.5, Eosinophils % 0.1, Basophils % 0 L, Absolute Granulocytes 14.5 H, Absolute Lymphocytes 0.5 L, Absolute Monocytes 0.4, Absolute Eosinophils 0, Absolute Basophils 0, PUBS MCHC 31.2 L 01/19/17 1240: APTT 44 H 01/19/17 1059: CBC w Diff MAN DIFF ORDERED, RBC 2.94 L, MCV 78.8 L, MCH 24.5 L, RDW 21.3 H, MPV 7.3 L, Gran % 95.4 H, Lymphocytes % 2.4 L, Monocytes % 2.2, Eosinophils % 0, Basophils % 0 L, Absolute Granulocytes 18.2 H, Segmented Neutrophils 80 H, Band Neutrophils 16 H, Absolute Lymphocytes 0.5 L, Lymphocytes 3 L, Monocytes 1 L, Absolute Monocytes 0.4, Absolute Eosinophils 0, Absolute Basophils 0, Platelet Estimate VERIFIED BY SMEAR, Polychromasia 1+, Hypochromic-Microcytic 1+ , Poikilocytosis 1+, Anisocytosis 1+, Microcytic Cells 1+, Ovalocytes 1+, PUBS MCHC 31.0 L Diagnostic Data CXR Findings: Cardiomegaly without pulmonary edema. Some improvement of right base disease since previous study with continued consolidation retrocardiac region. Impression/Plan Impression/Plan Impression/Plan: 1. Clinical picture consistent with sepsis, secondary to pneumonia versus decubitus ulcer. The patient's sputum culture is positive for staph aureus, noting sensitivities are pending. 2. Increased ostomy output with guaiac positive stools and decreased hemoglobin , rule out bleeding. This may also be in part, dilutional. The patient received 2 units of packed red blood cells. There is no report of significant active bleeding. 3. Spinal stroke with paraplegia, on IV heparin. 4. Type 2 diabetes. 5. Recurrent aspiration pneumonia, requiring multiple antibiotics in the past. 6. History of suprapubic catheter which has some leakage around it. 7. History of pulmonary embolism. Recommendations: * Deep suctioning, Nebs and chest PT as needed, per respiratory therapy. * Continue strict aspiration precautions. * The head of the bed should remain greater than a minimum of 30 at all times. * Continue meropenem. * Please discuss sputum culture results with ID - give one dose of vanco? * Follow up stool for C. difficile results. * The patient remains off IV heparin due to low HCT. * Agree with transfusing 1 additional unit of packed red blood cells. * IV fluids to continue at 75 ML per hour. * GI input reviewed, appreciate input. * Try to avoid sedation. Hold Desyrel and morphine if the patient has any evidence of oversedation. * DVT prophylaxis - Alps only for now, due to possible bleeding. * Continue to monitor in the critical care unit. The patient is critically ill and has the potential to decompensate. Will need ongoing close follow-up.
--- NOTE | 2017-01-20 12:32 | PN- Att Addend ---
Attending Addendum Attending Brief Note Covering attending note. Patient still in ICU, had evidence of GI bleeding positive stools for occult blood and drop in his hematocrit and hemoglobin. Patient has been transfused. She is off pressors and was seen by GI recommendations are given him a patient of the heparin still on aspirin and IV PPIs. No endoscopies at the present time. Monitoring H&H closely and maintaining hemoglobin above 8 if possible. Patient's vital signs are stable now and his febrile and no other changes in physical continue all other treatments 24 TOTALS 01/20 0000 01/19 0000 Intake Total 4510 4942 Output Total 2608 801 Balance 1902 4141 Intake, IV 3050 4462 Intake, Oral 1460 480 Number 1 Bowel Movements Output, 1450 Gastric Drainage Output, Stool 500 1 Output, Urine 658 800 Patient 191 lb 174 lb Weight Current Medications Sig/Mey Start time Last Medication Dose Route Stop Time Status Admin Acetaminophen 1,000 MG Q6P PRN 01/18 0045 AC N/A 1 UNIT IV Albuterol Sulfate 3 ML BID 01/18 1130 AC 01/20 INH 1014 Aspirin 81 MG DAILY 01/18 1000 AC 01/20 PO 1028 Atorvastatin Calcium 10 MG 1700 01/18 1700 AC 01/19 PO 1603 Dextrose 12.5 GM ONCE ONE 01/20 0930 DC 01/20 IV 01/20 0931 0934 Dextrose/Sodium 1,000 ML Q13H 01/20 0930 AC 01/20 Chloride IV 0934 Guaifenesin 10 ML .STK-MED ONE 01/19 2152 DC PO 01/19 2153 Guaifenesin 10 ML Q6P PRN 01/18 0215 AC 01/19 PO 2155 Heparin Sodium 25,000 UNIT Q24H 01/18 1730 DC 01/19 (Porcine) IV 1738 Sodium Chloride 500 ML Insulin Aspart 0 TIDAC/HS 01/19 1200 DC SC Insulin Human Regular 0 Q6 01/20 1200 AC SC Ipratropium [place] 2.5 ML BID 01/18 1130 AC 01/20 INH 1014 Levetiracetam 500 MG DAILY 01/20 1000 AC 01/20 PO 1029 Levetiracetam 500 MG DAILY 01/18 1000 DC 01/19 PO 1034 Melatonin 5 MG AT BEDTIME 01/18 2200 AC 01/19 PO 2155 Meropenem 1 GM IQ8 01/18 1130 AC 01/20 IV 0749 Methyl Salicylate 1 HILARIA TID PRN 01/19 1430 01/20 TOP 0617 Morphine Sulfate 1 MG Q6-PRN PRN 01/18 0045 01/19 IV 2044 Norepinephrine 4 MG Q24H 01/20 0800 CAN Sodium Chloride 250 ML IV Norepinephrine 4 MG Q12H 01/18 0800 DC 01/19 Sodium Chloride 250 ML IV 01/20 0759 0821 Omeprazole 40 MG DAILY AC 01/18 0700 DC 01/20 PO 0613 Oxycodone/ 1 TAB Q4P PRN 01/18 0930 01/18 Acetaminophen PO 2350 Pantoprazole Sodium 40 MG BID 01/20 1145 AC IV Potassium Chloride 20 MEQ ONCE ONE 01/20 1215 DC IV 01/20 1216 Potassium Chloride 20 MEQ ONCE ONE 01/20 1030 DC 01/20 IV 01/20 1031 1034 Sodium Chloride 1,000 ML Q13H 01/20 0145 DC IV Sodium Hypochlorite 1 HILARIA DAILY 01/18 1245 01/20 TOP 0934 Trazodone HCl 25 MG Q12H PRN 01/18 0015 01/18 PO 2129 Laboratory Tests 01/20/17 0931: CBC w Diff MAN DIFF ORDERED, RBC 3.02 L, MCV 79.2 L, MCH 25.4 L, RDW 19.0 H, MPV 6.9 L, Gran % 93.6 H, Lymphocytes % 4.0 L, Monocytes % 1.4 L, Eosinophils % 0.9, Basophils % 0.1, Absolute Granulocytes 11.5 H, Segmented Neutrophils 90 H, Band Neutrophils 5, Absolute Lymphocytes 0.5 L, Lymphocytes 3 L, Monocytes 2, Absolute Monocytes 0.2, Absolute Eosinophils 0.1, Absolute Basophils 0, Platelet Estimate VERIFIED BY SMEAR, Polychromasia 1+, Hypochromic- Microcytic 1+, Poikilocytosis 1+, Anisocytosis 1+, Microcytic Cells 1+, Ovalocytes 1+, [place] Cells 1+, PUBS MCHC 32.1 L 01/20/17 0345: Anion Gap 6, Estimated GFR > 60, Glucose 68, Calcium 7.9 L, Phosphorus 3.1, Magnesium 2.0, Total Bilirubin 0.4, AST 17, ALT 30, Albumin 1.8 L 01/20/17 0120: RBC 2.99 L, MCV 79.1 L, MCH 25.5 L, RDW 19.9 H, MPV 7.1 L, Gran % 93.4 H, Lymphocytes % 4.9 L, Monocytes % 1.3 L, Eosinophils % 0.4, Basophils % 0 L, Absolute Granulocytes 13.2 H, Absolute Lymphocytes 0.7 L, Absolute Monocytes 0.2, Absolute Eosinophils 0.1, Absolute Basophils 0, PUBS MCHC 32.3 L 01/19/17 2100: APTT Cancelled 01/19/17 1814: CBC w Diff NO MAN DIFF REQ, RBC 2.74 L, MCV 78.3 L, MCH 24.5 L, RDW 21.0 H, MPV 7.2 L, Gran % 94.2 H, Lymphocytes % 3.2 L, Monocytes % 2.5, Eosinophils % 0.1, Basophils % 0 L, Absolute Granulocytes 14.5 H, Absolute Lymphocytes 0.5 L, Absolute Monocytes 0.4, Absolute Eosinophils 0, Absolute Basophils 0, PUBS MCHC 31.2 L 01/19/17 1240: APTT 44 H 01/19/17 1059: CBC w Diff MAN DIFF ORDERED, RBC 2.94 L, MCV 78.8 L, MCH 24.5 L, RDW 21.3 H, MPV 7.3 L, Gran % 95.4 H, Lymphocytes % 2.4 L, Monocytes % 2.2, Eosinophils % 0, Basophils % 0 L, Absolute Granulocytes 18.2 H, Segmented Neutrophils 80 H, Band Neutrophils 16 H, Absolute Lymphocytes 0.5 L, Lymphocytes 3 L, Monocytes 1 L, Absolute Monocytes 0.4, Absolute Eosinophils 0, Absolute Basophils 0, Platelet Estimate VERIFIED BY SMEAR, Polychromasia 1+, Hypochromic-Microcytic 1+ , Poikilocytosis 1+, Anisocytosis 1+, Microcytic Cells 1+, Ovalocytes 1+, PUBS MCHC 31.0 L 01/19/17 0949: APTT Cancelled 01/19/17 0550: Anion Gap 6, Estimated GFR > 60, Glucose 88, Calcium 8.0 L, Phosphorus 4.0, Magnesium 2.0, Total Bilirubin 0.4, AST 18, ALT 29, Albumin 1.8 L, APTT 43 H, CBC w Diff MAN DIFF ORDERED, RBC 2.96 L, MCV 78.7 L, MCH 24.7 L, RDW 20.8 H, MPV 7.1 L, Gran % 94.1 H, Lymphocytes % 3.4 L, Monocytes % 2.5, Eosinophils % 0, Basophils % 0 L, Absolute Granulocytes 19.7 H, Segmented Neutrophils 75, Band Neutrophils 15 H, Absolute Lymphocytes 0.7 L, Lymphocytes 10 L, Absolute Monocytes 0.5, Absolute Eosinophils 0, Absolute Basophils 0, Platelet Estimate INCREASED, Hypochromic-Microcytic 2+, Poikilocytosis 1+, Anisocytosis 1+, [place] Cells FEW, PUBS MCHC 31.4 L Microbiology Date/Time Procedure - Status Source Growth 01/19 1240 Clostridium difficile Toxin A & B - RECD STOOL
[2017-01-20 16:00] VITALS: BP 116/50
[2017-01-20 17:38] LABS: ABSOLUTE BASOPHIL COUNT 0 /CUMM (0.0-0.2); ABSOLUTE EOSINOPHIL COUNT 0.1 /CUMM (0.0-0.7); ABSOLUTE GRANULOCYTE CT 11.2 /CUMM (1.4-6.5); ABSOLUTE LYMPH COUNT 0.6 /CUMM (1.2-3.4); ABSOLUTE MONOCYTE COUNT 0.4 /CUMM (0.10-0.60); BASOPHIL % 0.1 % (0.0-2.0); MEAN CORPUSCULAR HGB 25.6 PG (27.0-31.0); MEAN CORPUSCULAR HGB CONC 31.8 G/DL (33.0-37.0); MEAN CORPUSCULAR VOLUME 80.5 FL (80.0-94.0); MEAN PLATELET VOLUME 7.1 FL (7.4-10.4); PLATELET COUNT 374 /CUMM (130-400); RBC DISTRIBUTION WIDTH 18.9 % (11.5-14.5); RED BLOOD CELL CT 3.59 /CUMM (4.70-6.10); WHITE BLOOD CELL COUNT 12.4 /CUMM (4.8-10.8)
[2017-01-20 17:46] LABS: GRANULOCYTE % 90.8 % (42.2-75.2); HEMATOCRIT 28.9 % (42-52)
[2017-01-21] VITALS: BP 130/60
[2017-01-21 05:36] LABS: ABSOLUTE BASOPHIL COUNT 0 /CUMM (0.0-0.2); ABSOLUTE EOSINOPHIL COUNT 0.2 /CUMM (0.0-0.7); ABSOLUTE GRANULOCYTE CT 10.8 /CUMM (1.4-6.5); ABSOLUTE LYMPH COUNT 0.7 /CUMM (1.2-3.4); ABSOLUTE MONOCYTE COUNT 0.4 /CUMM (0.10-0.60); BASOPHIL % 0.2 % (0.0-2.0); EOSINOPHIL % 1.3 % (0-5); GRANULOCYTE % 89.4 % (42.2-75.2); HEMATOCRIT 29.7 % (42-52); MEAN CORPUSCULAR HGB 25.5 PG (27.0-31.0); MEAN CORPUSCULAR HGB CONC 31.6 G/DL (33.0-37.0); MEAN CORPUSCULAR VOLUME 80.7 FL (80.0-94.0); MEAN PLATELET VOLUME 7.1 FL (7.4-10.4); PLATELET COUNT 404 /CUMM (130-400); RBC DISTRIBUTION WIDTH 19.3 % (11.5-14.5); RED BLOOD CELL CT 3.68 /CUMM (4.70-6.10); WHITE BLOOD CELL COUNT 12.1 /CUMM (4.8-10.8)
--- NOTE | 2017-01-21 06:57 | PN- Resident CRCU ---
Subjective HPI/CRCU Issues: Pt feeling improved, awake, alert, oriented, reports breathing better, although still have cough, difficult to bring up. He reports no pain, but was just given percocet. 24 hour data: max temp 99 HR 80-96 SR RR 17-22 systolic bp 95-144 diastolic bp 41-68 3l nc to 2l nc +2800 -900 (suprapubic catheter leaking). Urology has been consulted for leaky suprapubic catheter. Pt NPO pending RUQ US, will advance to full liquid and dc ivf. Wound vac will be placed by wound care nurse today. labs reviewed, wbc 12.4 to 12.1, hb 9.2 to 9.4, na 134 to 137, k 3.6 to 3.8, mg 1.9. bun/cr 44/1,3 to 19/0.6 sputum growing yeast and staph aureus. not sure if we should treat for MRSA as it might be a colonization rather than the organism responsible for his pneumonia (if he has one) as he might have aspirated. I called urology, spoke to Dr. Koch, she does not think catheter needs to be changed, as it was changed 2 weeks ago, and she recommends oxybutinin 10 tid. Objective Vital Signs & I&O Last 8 Hrs of Vitals and I&O: Intake & Output 01/21 1600 01/21 0800 01/21 0000 Intake Total 876 539 Output Total 200 151 Balance 676 388 Intake, IV 636 419 Intake, Oral 240 120 Output, Stool 100 1 Output, Urine 100 150 Laboratory Tests 01/21 04 0500 1630 Chemistry Sodium (137 - 145 mmol/L) 137 Potassium (3.5 - 5.1 mmol/L) 3.8 Chloride (98 - 107 mmol/L) 114 H Carbon Dioxide (22 - 30 mmol/L) 20 L Anion Gap (5 - 16) 3 L BUN (9 - 20 mg/dL) 19 Creatinine (0.7 - 1.2 mg/dL) 0.6 L Estimated GFR (>60 ml/min) > 60 Glucose (65 - 99 mg/dL) 81 Calcium (8.4 - 10.2 mg/dL) 8.2 L Phosphorus (2.5 - 4.5 mg/dL) 2.9 Magnesium (1.6 - 2.3 mg/dL) 1.9 Total Bilirubin (0.2 - 1.3 mg/dL) 0.3 AST (17 - 59 U/L) 15 L ALT (21 - 72 U/L) 27 Albumin (3.5 - 5.0 g/dL) 1.9 L Hematology CBC w Diff MAN DIFF ORDERED NO MAN DIFF REQ WBC (4.8 - 10.8 /CUMM) 12.1 H 12.4 H RBC (4.70 - 6.10 /CUMM) 3.68 L 3.59 L Hgb (14.0 - 18.0 G/DL) 9.4 L 9.2 L Hct (42 - 52 %) 29.7 L 28.9 L MCV (80.0 - 94.0 FL) 80.7 80.5 MCH (27.0 - 31.0 PG) 25.5 L 25.6 L RDW (11.5 - 14.5 %) 19.3 H 18.9 H Plt Count (130 - 400 /CUMM) 404 H 374 MPV (7.4 - 10.4 FL) 7.1 L 7.1 L Gran % (42.2 - 75.2 %) 89.4 H 90.8 H Lymphocytes % (20.5 - 51.1 %) 5.5 L 5.2 L Monocytes % (1.7 - 9.3 %) 3.6 2.9 Eosinophils % (0 - 5 %) 1.3 1.0 Basophils % (0.0 - 2.0 %) 0.2 0.1 Absolute Granulocytes (1.4 - 6.5 /CUMM) 10.8 H 11.2 H Segmented Neutrophils (42.2 - 75.2 %) 94 H Absolute Lymphocytes (1.2 - 3.4 /CUMM) 0.7 L 0.6 L Lymphocytes (20.5 - 51.1 %) 4 L Absolute Monocytes (0.10 - 0.60 /CUMM) 0.4 0.4 Eosinophils (0 - 5.0 %) 2 Absolute Eosinophils (0.0 - 0.7 /CUMM) 0.2 0.1 Absolute Basophils (0.0 - 0.2 /CUMM) 0 0 Platelet Estimate (ADEQUATE) INCREASED Polychromasia 1+ Hypochromic-Microcytic 1+ Poikilocytosis 1+ Anisocytosis 1+ Microcytic Cells 1+ Ovalocytes 1+ PUBS MCHC (33.0 - 37.0 G/DL) 31.6 L 31.8 L Other Body Source Fld Total RBCs Counted (%) 100 01/20 0931 Hematology CBC w Diff MAN DIFF ORDERED WBC (4.8 - 10.8 /CUMM) 12.3 H RBC (4.70 - 6.10 /CUMM) 3.02 L Hgb (14.0 - 18.0 G/DL) 7.7 L Hct (42 - 52 %) 23.9 L MCV (80.0 - 94.0 FL) 79.2 L MCH (27.0 - 31.0 PG) 25.4 L RDW (11.5 - 14.5 %) 19.0 H Plt Count (130 - 400 /CUMM) 360 MPV (7.4 - 10.4 FL) 6.9 L Gran % (42.2 - 75.2 %) 93.6 H Lymphocytes % (20.5 - 51.1 %) 4.0 L Monocytes % (1.7 - 9.3 %) 1.4 L Eosinophils % (0 - 5 %) 0.9 Basophils % (0.0 - 2.0 %) 0.1 Absolute Granulocytes (1.4 - 6.5 /CUMM) 11.5 H Segmented Neutrophils (42.2 - 75.2 %) 90 H Band Neutrophils (0.0 - 5.0 %) 5 Absolute Lymphocytes (1.2 - 3.4 /CUMM) 0.5 L Lymphocytes (20.5 - 51.1 %) 3 L Monocytes (1.7 - 9.3 %) 2 Absolute Monocytes (0.10 - 0.60 /CUMM) 0.2 Absolute Eosinophils (0.0 - 0.7 /CUMM) 0.1 Absolute Basophils (0.0 - 0.2 /CUMM) 0 Platelet Estimate (ADEQUATE) VERIFIED BY SMEAR Polychromasia 1+ Hypochromic-Microcytic 1+ Poikilocytosis 1+ Anisocytosis 1+ Microcytic Cells 1+ Ovalocytes 1+ Delio Cells 1+ PUBS MCHC (33.0 - 37.0 G/DL) 32.1 L Laboratory Tests 01/21/17 0500: Anion Gap 3 L, Estimated GFR > 60, Glucose 81, Calcium 8.2 L, Phosphorus 2.9, Magnesium 1.9, Total Bilirubin 0.3, AST 15 L, ALT 27, Albumin 1.9 L, CBC w Diff MAN DIFF ORDERED, RBC 3.68 L, MCV 80.7, MCH 25.5 L, RDW 19.3 H, MPV 7.1 L, Gran % 89.4 H, Lymphocytes % 5.5 L, Monocytes % 3.6, Eosinophils % 1.3, Basophils % 0.2, Absolute Granulocytes 10.8 H, Segmented Neutrophils 94 H, Absolute Lymphocytes 0.7 L, Lymphocytes 4 L, Absolute Monocytes 0.4, Eosinophils 2, Absolute Eosinophils 0.2, Absolute Basophils 0, Platelet Estimate INCREASED, Polychromasia 1+, Hypochromic-Microcytic 1+, Poikilocytosis 1+, Anisocytosis 1+, Microcytic Cells 1+, Ovalocytes 1+, PUBS MCHC 31.6 L, Fld Total RBCs Counted 100 01/20/17 1630: CBC w Diff NO MAN DIFF REQ, RBC 3.59 L, MCV 80.5, MCH 25.6 L, RDW 18.9 H, MPV 7.1 L, Gran % 90.8 H, Lymphocytes % 5.2 L, Monocytes % 2.9, Eosinophils % 1.0 , Basophils % 0.1, Absolute Granulocytes 11.2 H, Absolute Lymphocytes 0.6 L, Absolute Monocytes 0.4, Absolute Eosinophils 0.1, Absolute Basophils 0, PUBS MCHC 31.8 L 01/20/17 0931: CBC w Diff MAN DIFF ORDERED, RBC 3.02 L, MCV 79.2 L, MCH 25.4 L, RDW 19.0 H, MPV 6.9 L, Gran % 93.6 H, Lymphocytes % 4.0 L, Monocytes % 1.4 L, Eosinophils % 0.9, Basophils % 0.1, Absolute Granulocytes 11.5 H, Segmented Neutrophils 90 H, Band Neutrophils 5, Absolute Lymphocytes 0.5 L, Lymphocytes 3 L, Monocytes 2, Absolute Monocytes 0.2, Absolute Eosinophils 0.1, Absolute Basophils 0, Platelet Estimate VERIFIED BY SMEAR, Polychromasia 1+, Hypochromic- Microcytic 1+, Poikilocytosis 1+, Anisocytosis 1+, Microcytic Cells 1+, Ovalocytes 1+, [place] Cells 1+, PUBS MCHC 32.1 L Vital Signs Date Time Temp Pulse Resp B/P Pulse O2 O2 Flow FiO2 Ox Delivery Rate 01/21 0400 94 Nasal 3.0L Cannula 01/21 0000 98.1 94 17 130/60 98 Nasal 3.0L Cannula 01/21 0000 98 Nasal 3.0L Cannula 01/20 2222 94 Nasal 3.0L Cannula 01/21 2000 97 Nasal 3.0L Cannula 01/20 1600 98 Nasal 3.0L Cannula 01/20 1600 98.0 88 18 116/50 98 Nasal 3.0L Cannula 01/20 1200 95 Nasal 3.0L Cannula 01/20 1014 95 Nasal 4.0L Cannula Exam General Appearance: alert, awake, comfortable Head: atraumatic Respiratory: diffuse rhonchi Cardiovascular: regular rate/rhythm Gastrointestinal: normal bowel sounds, soft, non-tender Current Medications: Current Medications Sig/Mey Start time Last Medication Dose Route Stop Time Status Admin Acetaminophen 1,000 MG Q6P PRN 01/18 0045 AC 01/21 N/A 1 UNIT IV 0745 Albuterol Sulfate 3 ML BID 01/18 1130 AC 01/20 INH 2221 Aspirin 81 MG DAILY 01/18 1000 AC 01/20 PO 1028 Atorvastatin Calcium 10 MG 1700 01/18 1700 AC 01/20 PO 1631 Dextrose 12.5 GM ONCE ONE 01/20 0930 DC 04 IV 01/20 0931 0934 Dextrose/Sodium 1,000 ML Q13H 01/20 0930 AC 01/20 Chloride IV 2252 Guaifenesin 10 ML .STK-MED ONE 01/20 1826 DC PO 01/20 1827 Guaifenesin 10 ML .STK-MED ONE 01/20 1359 DC PO 01/20 1400 Guaifenesin 10 ML Q6P PRN 01/18 0215 AC 01/21 PO 0745 Insulin Human Regular 0 Q6 01/20 1200 AC 01/20 SC 1240 Ipratropium [place] 2.5 ML BID 01/18 1130 AC 01/20 INH 2221 Levetiracetam 500 MG DAILY 01/20 1000 AC 01/20 PO 1029 Melatonin 5 MG AT BEDTIME 01/18 2200 AC 01/20 PO 2144 Meropenem 1 GM IQ8 01/18 1130 AC 01/21 IV 0744 Methyl Salicylate 1 HILARIA TID PRN 01/19 1430 AC 01/20 TOP 0617 Morphine Sulfate 1 MG Q6-PRN PRN 01/18 0045 DC 01/19 IV 2044 Norepinephrine 4 MG Q12H 01/18 0800 DC 01/19 Sodium Chloride 250 ML IV 01/20 1200 0821 Omeprazole 40 MG DAILY AC 01/18 0700 DC 01/20 PO 0613 Oxycodone/ 1 TAB Q4P PRN 01/18 0930 AC 01/21 Acetaminophen PO 0524 Pantoprazole Sodium 40 MG BID 01/20 1145 AC 01/20 IV 2145 Potassium Chloride 20 MEQ ONCE ONE 01/20 1215 DC 01/20 IV 01/20 1216 1240 Potassium Chloride 20 MEQ ONCE ONE 01/20 1030 DC 01/20 IV 01/20 1031 1034 Sodium Chloride 1,000 ML Q13H 01/20 0145 DC IV Sodium Hypochlorite 1 HILARIA DAILY 01/18 1245 AC 01/20 TOP 0934 Trazodone HCl 25 MG Q12H PRN 01/18 0015 AC 01/18 PO 2129 Impression/Plan Impression/Problem List Impression: 71-year-old male with PMH paraplegia, with a chronic stage IV sacral decubitus with wound vac, ostomy and suprapubic catheter in place, MRSA, VRE treated with daptomycin, and 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 Came in with BP of 58/32 and pulse rate of 150, given fluid boluses, and required pressor support with levophed in the ICU. White count was 29k with bands. Lactic acid 3.6. K 6.2, Na 134, cr 1.3 (baseline 0.8). Source of sepsis unclear but include: pneumonia (aspiration vs healthcare acquired, +cough, difficulty bringing up sputum, sputum grew yeast and staph aureus, imaging showed atelectasis vs pna), abdominal process (keep in mind his UC grew pseudomonas which implies gut colonization as well, resistant to ceftaz and zosyn), urinary tract infection (chronic suprapubic catheter), c diff ( significant abx exposure, loose stool, but c diff negative), ischemic colitis ( hypotension, blood noted in the colostomy bag), stage 4 decubitus ulcer with wound vac draining serosanguinous fluid (has necrotic edges, but otherwise no obvious purulent drainage, surgery does not think need debridement), pancreatitis (elevated amylase, lipase normal), biliary process (tender RUQ, had cholecystectomy). Patient received IV unasyn and ceftazidime on day #1, subsequently changed to mepenem on 01/18/17. His BP and leukocytosis improved on this. He is now off pressors. Although he grew staph aureus in the sputum, which most likely is MRSA , unclear whether it is the source of sepsis or whether it is a colonization, as he had not received abx with MRSA coverage while his condition improved. Femoral central line was placed in the ED for vasopressor, subsequently PICC line placed on 01/18/17, subsequently placed on heparin drip given hx of PE. Femoral line was removed on 01/18/17, with significant bleed causing a drop in hb from 7.6 to 6.7. In addition to that, he started having loose guaiac positive stool in the colostomy bag (which was tested and negative for c diff). Heparin drip has been held. GI was consulted, and no urgent endoscopy was pursued. He was transfused 4 units of PRBC so far, with hb at 9.4. Heparin drip resumed without bolus on 01/21/17. Lines: PICC line day #4 Suprapubic catheter (prehospital, leaking) Femoral line removed after 1 day Problem list: # Septic shock on admission, most likely due to pneumonia # Nausea and bilious vomiting, abdominal tenderness on admission # Acute blood loss anemia, GI blood loss # Hx of PE, xarelto on hold # Leaking suprapubic catheter ID: Septic shock (resolved) - Came in with 58/32 and pulse rate of 150, ERICKA (cr 1.3, baseline 0.8), WBC 29K with bands, LA 3.6. K 6.2, Na 134. - 01/21/17: cr down to 0.6, wbc 12.1, k 3.8, na 137. - Spoke to Dr. Jung who does not recommend debridement of the ulcer as it does not look infected and unlikely to be the source of sepsis. His CT findings would likely show findings consistent with osteomyelitis but it still will not be an indication to debride. Wound vac has been removed. - CT showed possible mild colitis, atelectasis vs PNA. * Decubitus ulcer wet to dry dressing for now, and Dr. Guzman also recommended dakins daily and PRN. * Wound vac to be placed 01/21/17 * ID consulted * Follow up cx * Was given unasyn and ceftazidime in ED. Meropenem 1q8 started 01/18/17 - 01/21/17 , today is abx day #5, changed to unasyn 1.6q6 Cardiovascular # Hypotension, consistent with septic shock (resolved) - Came in with BP 58/32, given 6L NS bolus, and was started on levophed, BP has improved, now off levophed * On 75ml/hr D5NS, can be discontinued once diet resumed # Hx of HTN * Holding 10 mg lisinopril daily and lasix 20 mg q48 Respiratory # Hx of PE * Hold xarelto 20 mg daily. * Heparin drip was started after picc line insertion, subsequently held for bleeding post femoral line removal and guaiac positive stool. heparin drip resumed 01/21/17 Endocrine # DM * On NPO sliding scale Heme # Acute on chronic anemia, most likely secondary to blood loss from removal of femoral line and GI blood loss (guaiac positive stool) when he was on heparin drip given hx of PE (was on xarelto prior to admission). - 01/19: Pt transfused 2 units with hb up to 7.7 - 01/20: Transfuse another unit, hb up to 9.4 * Monitor CBC daily * No plan for scope now * GI consulted, continue aspirin, started IV PPI BID, hold heparin drip, however heparin drip have been resumed on 01/21/17 # Leaking suprapubic catheter - Spoke to Dr. Koch on 01/21/17 who stated that the catheter was replaced in the office 2 weeks prior, she is aware of the leakage and does not need to see the patient, and recommends continuing oxybutinin 10 tid. # Continue home meds Keppra ASA Lipitor Trazodone (hold if lethargic) Melatonin Percocet Q4P Diet: NPO pending RUQ US -- then full liquid and change insulin ss and dc fluids IVF: 75ml/hr D5NS --> off when eating DVT ppx: alps , heparin drip FULL CODE Consults: surgery, ID, CRCU, GI, urology, wound care Labs: ICU, CBC critically ill Problem List: 1. Septic shock Pain Ratin Tomorrow's Labs & Rationales: bep mag electrolyte repletion cbc for anemia Plan DVT/Prophylaxis: mechanical
[2017-01-21 08:00] VITALS: BP 138/78
--- NOTE | 2017-01-21 09:07 | PN- Att Addend ---
See Addendum Attending Addendum Attending Brief Note Patient is awake and alert and has minimal complaints. General Appearance: Alert, No Acute Distress Skin: Sacral decubitus with wound VAC HEENT: PEERLA Neck: Supple, No JVD Cardiovascular: Regular Rate, Normal S1, Normal S2, No Murmurs Lungs: Clear to Auscultation, Normal Air Movement Abdomen: Normal Bowel Sounds, Soft, No Tenderness Neurological: Normal Speech, Strength at 5/5 X4 Ext, Cranial Nerves 3-12 NL, Reflexes 2+ Extremities: No Clubbing, No Cyanosis, No Edema Assessment Blood pressure improved and currently is off pressors. GI bleed with anemia seen by GI who recommended outpatient workup unless patient has active bleeding. His hemoglobin has remained stable after total 4 units PRBC. CAT scan CAP negative except for bibasilar atelectasis/pneumonia. His sputum culture is growing staph aureus pending identification. Overall his clinical status is stable however source of infection is still remains unclear. He is still awaiting for wound evaluation from plastic surgery. Plan Right upper quadrant ultrasound Follow sputum culture Antibiotic per ID Urology consult Continue to monitor CBC Current Medications Sig/Mey Start time Last Medication Dose Route Stop Time Status Admin Acetaminophen 1,000 MG Q6P PRN 01/18 0045 AC 01/21 N/A 1 UNIT IV 0745 Albuterol Sulfate 3 ML BID 01/18 1130 AC 01/21 INH 0904 Aspirin 81 MG DAILY 01/18 1000 AC 01/20 PO 1028 Atorvastatin Calcium 10 MG 1700 01/18 1700 AC 01/20 PO 1631 Dextrose 12.5 GM ONCE ONE 01/20 0930 DC 01/20 IV 01/20 0931 0934 Dextrose/Sodium 1,000 ML Q13H 01/20 0930 AC 01/20 Chloride IV 2252 Guaifenesin 10 ML .STK-MED ONE 01/20 1826 DC PO 01/20 1827 Guaifenesin 10 ML .STK-MED ONE 01/20 1359 DC PO 01/20 1400 Guaifenesin 10 ML Q6P PRN 01/18 0215 AC 01/21 PO 0745 Insulin Human Regular 0 Q6 01/20 1200 AC 01/20 SC 1240 Ipratropium [place] 2.5 ML BID 01/18 1130 AC 01/21 INH 0904 Levetiracetam 500 MG DAILY 01/20 1000 AC 01/20 PO 1029 Melatonin 5 MG AT BEDTIME 01/18 2200 AC 01/20 PO 2144 Meropenem 1 GM IQ8 01/18 1130 AC 01/21 IV 0744 Methyl Salicylate 1 HILARIA TID PRN 01/19 1430 AC 01/20 TOP 0617 Morphine Sulfate 1 MG Q6-PRN PRN 01/18 0045 DC 01/19 IV 2044 Norepinephrine 4 MG Q12H 01/18 0800 DC 01/19 Sodium Chloride 250 ML IV 01/20 1200 0821 Omeprazole 40 MG DAILY AC 01/18 0700 DC 01/20 PO 0613 Oxycodone/ 1 TAB Q4P PRN 01/18 0930 AC 01/21 Acetaminophen PO 0524 Pantoprazole Sodium 40 MG BID 01/20 1145 AC 01/20 IV 2145 Potassium Chloride 20 MEQ ONCE ONE 01/20 1215 DC 01/20 IV 01/20 1216 1240 Potassium Chloride 20 MEQ ONCE ONE 01/20 1030 DC 01/20 IV 01/20 1031 1034 Sodium Chloride 1,000 ML Q13H 01/20 0145 DC IV Sodium Hypochlorite 1 HILARIA DAILY 01/18 1245 AC 01/20 TOP 0934 Trazodone HCl 25 MG Q12H PRN 01/18 0015 AC 01/18 PO 2129 Laboratory Tests 01/21 01/20 0500 1630 Chemistry Sodium (137 - 145 mmol/L) 137 Potassium (3.5 - 5.1 mmol/L) 3.8 Chloride (98 - 107 mmol/L) 114 H Carbon Dioxide (22 - 30 mmol/L) 20 L Anion Gap (5 - 16) 3 L BUN (9 - 20 mg/dL) 19 Creatinine (0.7 - 1.2 mg/dL) 0.6 L Estimated GFR (>60 ml/min) > 60 Glucose (65 - 99 mg/dL) 81 Calcium (8.4 - 10.2 mg/dL) 8.2 L Phosphorus (2.5 - 4.5 mg/dL) 2.9 Magnesium (1.6 - 2.3 mg/dL) 1.9 Total Bilirubin (0.2 - 1.3 mg/dL) 0.3 AST (17 - 59 U/L) 15 L ALT (21 - 72 U/L) 27 Albumin (3.5 - 5.0 g/dL) 1.9 L Hematology CBC w Diff MAN DIFF ORDERED NO MAN DIFF REQ WBC (4.8 - 10.8 /CUMM) 12.1 H 12.4 H RBC (4.70 - 6.10 /CUMM) 3.68 L 3.59 L Hgb (14.0 - 18.0 G/DL) 9.4 L 9.2 L Hct (42 - 52 %) 29.7 L 28.9 L MCV (80.0 - 94.0 FL) 80.7 80.5 MCH (27.0 - 31.0 PG) 25.5 L 25.6 L RDW (11.5 - 14.5 %) 19.3 H 18.9 H Plt Count (130 - 400 /CUMM) 404 H 374 MPV (7.4 - 10.4 FL) 7.1 L 7.1 L Gran % (42.2 - 75.2 %) 89.4 H 90.8 H Lymphocytes % (20.5 - 51.1 %) 5.5 L 5.2 L Monocytes % (1.7 - 9.3 %) 3.6 2.9 Eosinophils % (0 - 5 %) 1.3 1.0 Basophils % (0.0 - 2.0 %) 0.2 0.1 Absolute Granulocytes (1.4 - 6.5 /CUMM) 10.8 H 11.2 H Segmented Neutrophils (42.2 - 75.2 %) 94 H Absolute Lymphocytes (1.2 - 3.4 /CUMM) 0.7 L 0.6 L Lymphocytes (20.5 - 51.1 %) 4 L Absolute Monocytes (0.10 - 0.60 /CUMM) 0.4 0.4 Eosinophils (0 - 5.0 %) 2 Absolute Eosinophils (0.0 - 0.7 /CUMM) 0.2 0.1 Absolute Basophils (0.0 - 0.2 /CUMM) 0 0 Platelet Estimate (ADEQUATE) INCREASED Polychromasia 1+ Hypochromic-Microcytic 1+ Poikilocytosis 1+ Anisocytosis 1+ Microcytic Cells 1+ Ovalocytes 1+ PUBS MCHC (33.0 - 37.0 G/DL) 31.6 L 31.8 L Other Body Source Fld Total RBCs Counted (%) 100 01/20 0931 Hematology CBC w Diff MAN DIFF ORDERED WBC (4.8 - 10.8 /CUMM) 12.3 H RBC (4.70 - 6.10 /CUMM) 3.02 L Hgb (14.0 - 18.0 G/DL) 7.7 L Hct (42 - 52 %) 23.9 L MCV (80.0 - 94.0 FL) 79.2 L MCH (27.0 - 31.0 PG) 25.4 L RDW (11.5 - 14.5 %) 19.0 H Plt Count (130 - 400 /CUMM) 360 MPV (7.4 - 10.4 FL) 6.9 L Gran % (42.2 - 75.2 %) 93.6 H Lymphocytes % (20.5 - 51.1 %) 4.0 L Monocytes % (1.7 - 9.3 %) 1.4 L Eosinophils % (0 - 5 %) 0.9 Basophils % (0.0 - 2.0 %) 0.1 Absolute Granulocytes (1.4 - 6.5 /CUMM) 11.5 H Segmented Neutrophils (42.2 - 75.2 %) 90 H Band Neutrophils (0.0 - 5.0 %) 5 Absolute Lymphocytes (1.2 - 3.4 /CUMM) 0.5 L Lymphocytes (20.5 - 51.1 %) 3 L Monocytes (1.7 - 9.3 %) 2 Absolute Monocytes (0.10 - 0.60 /CUMM) 0.2 Absolute Eosinophils (0.0 - 0.7 /CUMM) 0.1 Absolute Basophils (0.0 - 0.2 /CUMM) 0 Platelet Estimate (ADEQUATE) VERIFIED BY SMEAR Polychromasia 1+ Hypochromic-Microcytic 1+ Poikilocytosis 1+ Anisocytosis 1+ Microcytic Cells 1+ Ovalocytes 1+ [place] Cells 1+ PUBS MCHC (33.0 - 37.0 G/DL) 32.1 L Vital Signs Date Time Temp Pulse Resp B/P Pulse O2 O2 Flow FiO2 Ox Delivery Rate 01/21 0400 94 Nasal 3.0L Cannula 01/21 0000 98.1 94 17 130/60 98 Nasal 3.0L Cannula 01/21 0000 98 Nasal 3.0L Cannula 01/20 2222 94 Nasal 3.0L Cannula 01/21 2000 97 Nasal 3.0L Cannula 01/20 1600 98 Nasal 3.0L Cannula 01/20 1600 98.0 88 18 116/50 98 Nasal 3.0L Cannula 01/20 1200 95 Nasal 3.0L Cannula 01/20 1014 95 Nasal 4.0L Cannula
--- NOTE | 2017-01-21 10:08 | PN- Pulmonary ---
Subjective HPI/Critical Care Issues: Doing a little better Afebrile Still has a cough No abdominal pain abdominal discomfort today says he feels much better History him of catheter has been removed Chest x-ray did show improvement in consolidation in the right side but left- sided lower lobe atelectasis/worsening airspace disease Sputum is now growing staph aureus Objective Current Medications: Current Medications Sig/Mey Start time Last Medication Dose Route Stop Time Status Admin Acetaminophen 1,000 MG Q6P PRN 01/18 0045 AC 01/21 N/A 1 UNIT IV 0745 Albuterol Sulfate 3 ML BID 01/18 1130 AC 01/21 INH 0904 Aspirin 81 MG DAILY 01/18 1000 AC 01/20 PO 1028 Atorvastatin Calcium 10 MG 1700 01/18 1700 AC 01/20 PO 1631 Dextrose/Sodium 1,000 ML Q13H 01/20 0930 AC 01/20 Chloride IV 2252 Guaifenesin 10 ML .STK-MED ONE 01/20 1826 DC PO 01/20 1827 Guaifenesin 10 ML .STK-MED ONE 01/20 1359 DC PO 01/20 1400 Guaifenesin 10 ML Q6P PRN 01/18 0215 AC 01/21 PO 0745 Insulin Human Regular 0 Q6 01/20 1200 AC 01/20 SC 1240 Ipratropium [place] 2.5 ML BID 01/18 1130 AC 01/21 INH 0904 Levetiracetam 500 MG DAILY 01/20 1000 AC 01/20 PO 1029 Melatonin 5 MG AT BEDTIME 01/18 2200 AC 01/20 PO 2144 Meropenem 1 GM IQ8 01/18 1130 AC 01/21 IV 0744 Methyl Salicylate 1 HILARIA TID PRN 01/19 1430 AC 01/20 TOP 0617 Morphine Sulfate 1 MG Q6-PRN PRN 01/18 0045 DC 01/19 IV 2044 Norepinephrine 4 MG Q12H 01/18 0800 DC 01/19 Sodium Chloride 250 ML IV 01/20 1200 0821 Omeprazole 40 MG DAILY AC 01/18 0700 DC 01/20 PO 0613 Oxybutynin Chloride 10 MG TID 01/21 1000 UNVr PO Oxycodone/ 1 TAB Q4P PRN 01/18 0930 AC 01/21 Acetaminophen PO 0524 Pantoprazole Sodium 40 MG BID 01/20 1145 AC 01/20 IV 2145 Potassium Chloride 20 MEQ ONCE ONE 01/20 1215 DC 01/20 IV 01/20 1216 1240 Potassium Chloride 20 MEQ ONCE ONE 01/20 1030 DC 01/20 IV 01/20 1031 1034 Sodium Hypochlorite 1 HILARIA DAILY 01/18 1245 01/20 TOP 0934 Trazodone HCl 25 MG Q12H PRN 01/18 0015 AC 01/18 PO 2129 Vital Signs & I&O Last 24 Hrs of Vitals and I&O: Vital Signs Date Time Temp Pulse Resp B/P Pulse O2 O2 Flow FiO2 Ox Delivery Rate 01/22 800 97.7 86 16 138/78 98 Nasal 2.0L Cannula 01/21 0400 94 Nasal 3.0L Cannula 01/21 0000 98.1 94 17 130/60 98 Nasal 3.0L Cannula 01/21 0000 98 Nasal 3.0L Cannula 01/20 2222 94 Nasal 3.0L Cannula 01/20 2000 97 Nasal 3.0L Cannula 01/20 1600 98 Nasal 3.0L Cannula 01/20 1600 98.0 88 18 116/50 98 Nasal 3.0L Cannula 01/20 1200 95 Nasal 3.0L Cannula 01/20 1014 95 Nasal 4.0L Cannula Intake & Output 01/21 1600 01/21 0800 01/21 0000 Intake Total 876 539 Output Total 200 151 Balance 676 388 Intake, IV 636 419 Intake, Oral 240 120 Output, Stool 100 1 Output, Urine 100 150 Patient 200 lb Weight Laboratory Tests 01/21 01/20 0500 1630 Chemistry Sodium (137 - 145 mmol/L) 137 Potassium (3.5 - 5.1 mmol/L) 3.8 Chloride (98 - 107 mmol/L) 114 H Carbon Dioxide (22 - 30 mmol/L) 20 L Anion Gap (5 - 16) 3 L BUN (9 - 20 mg/dL) 19 Creatinine (0.7 - 1.2 mg/dL) 0.6 L Estimated GFR (>60 ml/min) > 60 Glucose (65 - 99 mg/dL) 81 Calcium (8.4 - 10.2 mg/dL) 8.2 L Phosphorus (2.5 - 4.5 mg/dL) 2.9 Magnesium (1.6 - 2.3 mg/dL) 1.9 Total Bilirubin (0.2 - 1.3 mg/dL) 0.3 AST (17 - 59 U/L) 15 L ALT (21 - 72 U/L) 27 Albumin (3.5 - 5.0 g/dL) 1.9 L Hematology CBC w Diff MAN DIFF ORDERED NO MAN DIFF REQ WBC (4.8 - 10.8 /CUMM) 12.1 H 12.4 H RBC (4.70 - 6.10 /CUMM) 3.68 L 3.59 L Hgb (14.0 - 18.0 G/DL) 9.4 L 9.2 L Hct (42 - 52 %) 29.7 L 28.9 L MCV (80.0 - 94.0 FL) 80.7 80.5 MCH (27.0 - 31.0 PG) 25.5 L 25.6 L RDW (11.5 - 14.5 %) 19.3 H 18.9 H Plt Count (130 - 400 /CUMM) 404 H 374 MPV (7.4 - 10.4 FL) 7.1 L 7.1 L Gran % (42.2 - 75.2 %) 89.4 H 90.8 H Lymphocytes % (20.5 - 51.1 %) 5.5 L 5.2 L Monocytes % (1.7 - 9.3 %) 3.6 2.9 Eosinophils % (0 - 5 %) 1.3 1.0 Basophils % (0.0 - 2.0 %) 0.2 0.1 Absolute Granulocytes (1.4 - 6.5 /CUMM) 10.8 H 11.2 H Segmented Neutrophils (42.2 - 75.2 %) 94 H Absolute Lymphocytes (1.2 - 3.4 /CUMM) 0.7 L 0.6 L Lymphocytes (20.5 - 51.1 %) 4 L Absolute Monocytes (0.10 - 0.60 /CUMM) 0.4 0.4 Eosinophils (0 - 5.0 %) 2 Absolute Eosinophils (0.0 - 0.7 /CUMM) 0.2 0.1 Absolute Basophils (0.0 - 0.2 /CUMM) 0 0 Platelet Estimate (ADEQUATE) INCREASED Polychromasia 1+ Hypochromic-Microcytic 1+ Poikilocytosis 1+ Anisocytosis 1+ Microcytic Cells 1+ Ovalocytes 1+ PUBS MCHC (33.0 - 37.0 G/DL) 31.6 L 31.8 L Other Body Source Fld Total RBCs Counted (%) 100 01/20 01/20 01/20 0929 5563 0120 Chemistry Sodium (137 - 145 mmol/L) 134 L Potassium (3.5 - 5.1 mmol/L) 3.6 Chloride (98 - 107 mmol/L) 110 H Carbon Dioxide (22 - 30 mmol/L) 19 L Anion Gap (5 - 16) 6 BUN (9 - 20 mg/dL) 29 H Creatinine (0.7 - 1.2 mg/dL) 0.7 Estimated GFR (>60 ml/min) > 60 Glucose (65 - 99 mg/dL) 68 Calcium (8.4 - 10.2 mg/dL) 7.9 L Phosphorus (2.5 - 4.5 mg/dL) 3.1 Magnesium (1.6 - 2.3 mg/dL) 2.0 Total Bilirubin (0.2 - 1.3 mg/dL) 0.4 AST (17 - 59 U/L) 17 ALT (21 - 72 U/L) 30 Albumin (3.5 - 5.0 g/dL) 1.8 L Hematology CBC w Diff MAN DIFF ORDERED WBC (4.8 - 10.8 /CUMM) 12.3 H 14.1 H RBC (4.70 - 6.10 /CUMM) 3.02 L 2.99 L Hgb (14.0 - 18.0 G/DL) 7.7 L 7.6 L Hct (42 - 52 %) 23.9 L 23.6 L MCV (80.0 - 94.0 FL) 79.2 L 79.1 L MCH (27.0 - 31.0 PG) 25.4 L 25.5 L RDW (11.5 - 14.5 %) 19.0 H 19.9 H Plt Count (130 - 400 /CUMM) 360 423 H MPV (7.4 - 10.4 FL) 6.9 L 7.1 L Gran % (42.2 - 75.2 %) 93.6 H 93.4 H Lymphocytes % (20.5 - 51.1 %) 4.0 L 4.9 L Monocytes % (1.7 - 9.3 %) 1.4 L 1.3 L Eosinophils % (0 - 5 %) 0.9 0.4 Basophils % (0.0 - 2.0 %) 0.1 0 L Absolute Granulocytes (1.4 - 6.5 /CUMM) 11.5 H 13.2 H Segmented Neutrophils (42.2 - 75.2 %) 90 H Band Neutrophils (0.0 - 5.0 %) 5 Absolute Lymphocytes (1.2 - 3.4 /CUMM) 0.5 L 0.7 L Lymphocytes (20.5 - 51.1 %) 3 L Monocytes (1.7 - 9.3 %) 2 Absolute Monocytes (0.10 - 0.60 /CUMM) 0.2 0.2 Absolute Eosinophils (0.0 - 0.7 /CUMM) 0.1 0.1 Absolute Basophils (0.0 - 0.2 /CUMM) 0 0 Platelet Estimate (ADEQUATE) VERIFIED BY SMEAR Polychromasia 1+ Hypochromic-Microcytic 1+ Poikilocytosis 1+ Anisocytosis 1+ Microcytic Cells 1+ Ovalocytes 1+ Delio Cells 1+ PUBS MCHC (33.0 - 37.0 G/DL) 32.1 L 32.3 L 01/19 01/19 01/19 2100 1814 1240 Coagulation APTT (25 - 37 SEC) Cancelled 44 H Hematology CBC w Diff NO MAN DIFF REQ WBC (4.8 - 10.8 /CUMM) 15.4 H RBC (4.70 - 6.10 /CUMM) 2.74 L Hgb (14.0 - 18.0 G/DL) 6.7 *L Hct (42 - 52 %) 21.5 L MCV (80.0 - 94.0 FL) 78.3 L MCH (27.0 - 31.0 PG) 24.5 L RDW (11.5 - 14.5 %) 21.0 H Plt Count (130 - 400 /CUMM) 431 H MPV (7.4 - 10.4 FL) 7.2 L Gran % (42.2 - 75.2 %) 94.2 H Lymphocytes % (20.5 - 51.1 %) 3.2 L Monocytes % (1.7 - 9.3 %) 2.5 Eosinophils % (0 - 5 %) 0.1 Basophils % (0.0 - 2.0 %) 0 L Absolute Granulocytes (1.4 - 6.5 /CUMM) 14.5 H Absolute Lymphocytes (1.2 - 3.4 /CUMM) 0.5 L Absolute Monocytes (0.10 - 0.60 /CUMM) 0.4 Absolute Eosinophils (0.0 - 0.7 /CUMM) 0 Absolute Basophils (0.0 - 0.2 /CUMM) 0 PUBS MCHC (33.0 - 37.0 G/DL) 31.2 L 01/19 1059 Hematology CBC w Diff MAN DIFF ORDERED WBC (4.8 - 10.8 /CUMM) 19.1 H RBC (4.70 - 6.10 /CUMM) 2.94 L Hgb (14.0 - 18.0 G/DL) 7.2 *L Hct (42 - 52 %) 23.2 L MCV (80.0 - 94.0 FL) 78.8 L MCH (27.0 - 31.0 PG) 24.5 L RDW (11.5 - 14.5 %) 21.3 H Plt Count (130 - 400 /CUMM) 487 H MPV (7.4 - 10.4 FL) 7.3 L Gran % (42.2 - 75.2 %) 95.4 H Lymphocytes % (20.5 - 51.1 %) 2.4 L Monocytes % (1.7 - 9.3 %) 2.2 Eosinophils % (0 - 5 %) 0 Basophils % (0.0 - 2.0 %) 0 L Absolute Granulocytes (1.4 - 6.5 /CUMM) 18.2 H Segmented Neutrophils (42.2 - 75.2 %) 80 H Band Neutrophils (0.0 - 5.0 %) 16 H Absolute Lymphocytes (1.2 - 3.4 /CUMM) 0.5 L Lymphocytes (20.5 - 51.1 %) 3 L Monocytes (1.7 - 9.3 %) 1 L Absolute Monocytes (0.10 - 0.60 /CUMM) 0.4 Absolute Eosinophils (0.0 - 0.7 /CUMM) 0 Absolute Basophils (0.0 - 0.2 /CUMM) 0 Platelet Estimate (ADEQUATE) VERIFIED BY SMEAR Polychromasia 1+ Hypochromic-Microcytic 1+ Poikilocytosis 1+ Anisocytosis 1+ Microcytic Cells 1+ Ovalocytes 1+ PUBS MCHC (33.0 - 37.0 G/DL) 31.0 L Microbiology Date/Time Procedure - Status Source Growth 01/19 1240 Clostridium difficile Toxin A & B - COMP STOOL 01/19 914 Respiratory Culture - RES LOWER RESP YEAST STAPH AUREUS 01/19 914 Gram Stain - RES LOWER RESP Impression/Plan Impression/Plan Impression/Plan: IMPRESSION This is a 71-year-old gentleman with previous history of spinal stroke after abdominal aortic aneurysm repair leading to paraplegia, indwelling [place] with suprapubic catheter, nonhealing decubiti ulcer, multiple antibiotics for polymicrobial sacral osteomyelitis now, previous diversion colostomy, diabetes, hypertension, hyperlipidemia, coronary artery disease, hypertension, GERD, anxiety and depression, recent bilateral pulmonary embolism, was on Xeralto now comes in with Resolved Septic shock most likely related to polymicrobial sepsis from the sacral decubiti. CT suggest bibasilar infiltrates prob pna with staph in the sputum Previous bilateral pulmonary embolism now was on adequate anticoagulation unlikely that he has ongoing venous thromboembolism Diabetes, hypertension, hyperlipidemia, anxiety and depression stable Acute on chronic renal insufficiency now creatinine returning back to normal Paraplegia Probable malignancy in the kidney as noted in the previous CT Previous thrombocytosis may be related to his underlying pathophysiology which needs to be followed RECOMMENDATION Continue gentle fluids and can eat if ok with id Antibiotics per infectious disease Start heparin iv without bolus today if stable Urology consult in the future Staph in the sputum await ID and sensitivity prob has mssa as he is clinically responding to meropenam
--- NOTE | 2017-01-21 10:49 | PN- Infect Dx ---
Subjective Subjective: Afebrile. He feels much improved. He notes a persistent cough, which he states is chronic. He also notes mild bilateral rib pain which he attributes to the cough. Objective Last 24 Hrs of Vital Signs/I&O Vital Signs Date Time Temp Pulse Resp B/P Pulse O2 O2 Flow FiO2 Ox Delivery Rate 01/22 800 98 Nasal 2.0L Cannula 01/21 08 97.7 86 16 138/78 98 Nasal 2.0L Cannula 01/21 0400 94 Nasal 3.0L Cannula 01/21 0000 98.1 94 17 130/60 98 Nasal 3.0L Cannula 01/21 0000 98 Nasal 3.0L Cannula 01/20 2222 94 Nasal 3.0L Cannula 01/20 2000 97 Nasal 3.0L Cannula 01/20 1600 98 Nasal 3.0L Cannula 01/20 1600 98.0 88 18 116/50 98 Nasal 3.0L Cannula 01/20 1200 95 Nasal 3.0L Cannula Intake & Output 01/21 1600 01/21 0801/21 0000 Intake Total 876 539 Output Total 200 151 Balance 676 388 Intake, IV 636 419 Intake, Oral 240 120 Output, Stool 100 1 Output, Urine 100 150 Patient 200 lb Weight Physical Exam Other Physical Findings: He appears comfortable in no acute distress Lungs scattered rhonchi Heart regular rhythm with no murmur Abdomen is soft, nontender with positive bowel sounds Extremities trace edema both lower extremities; PICC in the right upper extremity with no inflammation at the site Results Last 24 Hours of Lab Results: Laboratory Tests 01/21 01/20 0500 1630 Chemistry Sodium (137 - 145 mmol/L) 137 Potassium (3.5 - 5.1 mmol/L) 3.8 Chloride (98 - 107 mmol/L) 114 H Carbon Dioxide (22 - 30 mmol/L) 20 L Anion Gap (5 - 16) 3 L BUN (9 - 20 mg/dL) 19 Creatinine (0.7 - 1.2 mg/dL) 0.6 L Estimated GFR (>60 ml/min) > 60 Glucose (65 - 99 mg/dL) 81 Calcium (8.4 - 10.2 mg/dL) 8.2 L Phosphorus (2.5 - 4.5 mg/dL) 2.9 Magnesium (1.6 - 2.3 mg/dL) 1.9 Total Bilirubin (0.2 - 1.3 mg/dL) 0.3 AST (17 - 59 U/L) 15 L ALT (21 - 72 U/L) 27 Albumin (3.5 - 5.0 g/dL) 1.9 L Hematology CBC w Diff MAN DIFF ORDERED NO MAN DIFF REQ WBC (4.8 - 10.8 /CUMM) 12.1 H 12.4 H RBC (4.70 - 6.10 /CUMM) 3.68 L 3.59 L Hgb (14.0 - 18.0 G/DL) 9.4 L 9.2 L Hct (42 - 52 %) 29.7 L 28.9 L MCV (80.0 - 94.0 FL) 80.7 80.5 MCH (27.0 - 31.0 PG) 25.5 L 25.6 L RDW (11.5 - 14.5 %) 19.3 H 18.9 H Plt Count (130 - 400 /CUMM) 404 H 374 MPV (7.4 - 10.4 FL) 7.1 L 7.1 L Gran % (42.2 - 75.2 %) 89.4 H 90.8 H Lymphocytes % (20.5 - 51.1 %) 5.5 L 5.2 L Monocytes % (1.7 - 9.3 %) 3.6 2.9 Eosinophils % (0 - 5 %) 1.3 1.0 Basophils % (0.0 - 2.0 %) 0.2 0.1 Absolute Granulocytes (1.4 - 6.5 /CUMM) 10.8 H 11.2 H Segmented Neutrophils (42.2 - 75.2 %) 94 H Absolute Lymphocytes (1.2 - 3.4 /CUMM) 0.7 L 0.6 L Lymphocytes (20.5 - 51.1 %) 4 L Absolute Monocytes (0.10 - 0.60 /CUMM) 0.4 0.4 Eosinophils (0 - 5.0 %) 2 Absolute Eosinophils (0.0 - 0.7 /CUMM) 0.2 0.1 Absolute Basophils (0.0 - 0.2 /CUMM) 0 0 Platelet Estimate (ADEQUATE) INCREASED Polychromasia 1+ Hypochromic-Microcytic 1+ Poikilocytosis 1+ Anisocytosis 1+ Microcytic Cells 1+ Ovalocytes 1+ PUBS MCHC (33.0 - 37.0 G/DL) 31.6 L 31.8 L Other Body Source Fld Total RBCs Counted (%) 100 Last 24 Hours of Perfecto Results: Sputum culture January 19 positive for Staph aureus and yeast Stool C. difficile January 19 negative Blood cultures 2 January 17 remain negative Recent Imaging Studies: Chest x-ray January 20, personally reviewed, reveals a slight decreased density at the right base and continued consolidation in the retrocardiac region Assessment/Plan Impression: Continues to improve with temperatures remaining normal and white blood cell count markedly decreased on Meropenem Day 4 of treatment for presumed sepsis, most likely secondary to pneumonia, with bibasilar densities on chest x-ray and CT scan and with sputum culture now growing Staph aureus. He does have a history of MRSA; therefore this may prove to be MRSA, but, with his clinical improvement, do not feel that Vancomycin needs to be initiated. Apparently his decubitus has been discussed with Plastic surgery and leakage around the suprapubic catheter has been discussed with Urology. Suggestion: 1. Follow-up final sputum culture 2. Further management of his sacral decubitus per Plastic surgery 3. Further management of his urinary leakage per Urology 4. Discontinue Meropenem 5. Begin Unasyn 1.5 g IV every 6 hours pending above
--- NOTE | 2017-01-21 12:51 | ULTRASOUND REPORT ---
EXAMINATION: US ABDOMEN LIMITED CLINICAL INFORMATION: Right upper quadrant tenderness. Septic shock. Evaluate for cholangitis. COMPARISON: T scan of the abdomen and pelvis dated 01/18/2017. TECHNIQUE: Real-time imaging of the right upper quadrant abdominal viscera. FINDINGS: PANCREAS: The pancreatic body and portions of the tail and head are visualized and appear unremarkable. Remainder of the pancreas is obscured by overlying bowel gas. LIVER: Mildly enlarged, measuring 19.9 cm longitudinally. The liver demonstrates normal size, contour and echogenicity. No focal lesion or intrahepatic biliary duct dilatation. GALLBLADDER: The patient is status post cholecystectomy with no evidence of focal fluid collection in the gallbladder fossa. COMMON BILE DUCT: Normal in caliber measuring 0.3 cm in diameter. RIGHT KIDNEY: At least 3 of the previously demonstrated right renal cysts are seen on ultrasound, with the largest cyst seen the upper pole of the right kidney, measuring 1.7 x 3.6 x 1.8 cm. No hydronephrosis. No renal calculi. The kidney measures 11.7 cm in maximum dimension. FREE FLUID: None. VASCULAR: Proximal abdominal aortic aneurysm is seen with maximal AP diameter of 4.1 cm. The known proximal aortic chronic dissection is not appreciated on this ultrasound. No periaortic collections. The main portal vein is borderline enlarged, measuring 1.4 cm in maximal AP diameter. Normal hepatopedal flow within the main portal vein is seen. IMPRESSION: 1. Status post cholecystectomy with no evidence of bile leak in the gallbladder fossa. 2. Enlarged liver, measuring 19.9 cm longitudinally. Liver otherwise unremarkable. 3. Some of the previously demonstrated right renal cysts are also seen on this ultrasound. 4. A 4.1 cm proximal abdominal aortic aneurysm, unchanged. The known associated chronic dissection is not appreciated on this exam. 5. Nonspecific borderline enlargement of the main portal vein, unchanged.
[2017-01-21 16:00] VITALS: BP 140/60
[2017-01-21 21:02] LABS: PTT 44 SEC (25-37)
[2017-01-21 22:09] VITALS: BP 140/56
[2017-01-22 04:18] LABS: ABSOLUTE BASOPHIL COUNT 0.1 /CUMM (0.0-0.2); ABSOLUTE EOSINOPHIL COUNT 0.4 /CUMM (0.0-0.7); ABSOLUTE GRANULOCYTE CT 13.3 /CUMM (1.4-6.5); ABSOLUTE LYMPH COUNT 1.1 /CUMM (1.2-3.4); ABSOLUTE MONOCYTE COUNT 0.8 /CUMM (0.10-0.60); BASOPHIL % 0.5 % (0.0-2.0); EOSINOPHIL % 2.5 % (0-5); GRANULOCYTE % 84.4 % (42.2-75.2); HEMATOCRIT 30.3 % (42-52); MEAN CORPUSCULAR HGB 25.7 PG (27.0-31.0); MEAN CORPUSCULAR HGB CONC 32.2 G/DL (33.0-37.0); MEAN CORPUSCULAR VOLUME 79.9 FL (80.0-94.0); MEAN PLATELET VOLUME 6.7 FL (7.4-10.4); PLATELET COUNT 429 /CUMM (130-400); RBC DISTRIBUTION WIDTH 19.7 % (11.5-14.5); RED BLOOD CELL CT 3.79 /CUMM (4.70-6.10); WHITE BLOOD CELL COUNT 15.7 /CUMM (4.8-10.8)
[2017-01-22 05:21] LABS: PTT 55 SEC (25-37)
[2017-01-22 07:16] VITALS: BP 150/80
--- NOTE | 2017-01-22 07:32 | PN- Housestaff ---
Subjective Follow-up For: # Septic shock on admission, most likely due to pneumonia # Acute blood loss anemia, GI blood loss # Hx of PE # Leaking suprapubic catheter Subjective: Afebrile, WBCs is 15, saturating well on 2 L of oxygen, hemodynamically stable. No acute overnight events reported. Patient laying on bed looks relaxed and comfortable. H&H is stable. Denies any current complaint. Review of Systems Constitutional: Reports: see HPI. Objective Last 24 Hrs of Vital Signs/I&O Vital Signs Date Time Temp Pulse Resp B/P Pulse O2 O2 Flow FiO2 Ox Delivery Rate 01/22 1445 98.0 94 20 130/66 95 Room Air 01/22 0943 90 Nasal 2.0L Cannula 01/22 0716 98.2 90 24 150/80 92 Nasal 2.0L Cannula 01/22 0000 Nasal 2.0L Cannula 01/21 2209 98.2 81 21 140/56 Nasal 2.0L Cannula Intake & Output 01/22 1600 01/22 0800 01/22 0000 Intake Total 1600 539.2 366 Output Total 650 400 Balance 950 139.2 366 Intake, IV 700 199.2 126 Intake, Oral 900 340 240 Output, Stool 400 300 Output, Urine 250 100 Physical Exam General Appearance: Alert, Oriented X3, Cooperative, No Acute Distress Skin: No Rashes HEENT: Atraumatic, PERRLA, EOMI, Mucous Membr. moist/pink Cardiovascular: Regular Rate, Normal S1, Normal S2, No Murmurs Lungs: mild rhnchi b/l with decrease air entry over both lungs bases Abdomen: Soft, No Tenderness Neurological: Normal Speech Extremities: No Clubbing, No Cyanosis, No Edema Current Medications: Current Medications Sig/Mey Start time Last Medication Dose Route Stop Time Status Admin Acetaminophen 1,000 MG Q6P PRN 01/18 0045 AC 01/21 N/A 1 UNIT IV 0745 Albuterol Sulfate 3 ML BID 01/18 1130 AC 01/22 INH 1910 Ampicillin Sodium/ 1,500 MG Q6 01/21 1200 DC 01/22 Sulbactam Sodium IV 1126 Sodium Chloride 100 ML Aspirin 81 MG DAILY 01/18 1000 AC 01/22 PO 1137 Atorvastatin Calcium 10 MG 1700 01/18 1700 AC 01/22 PO 1700 Guaifenesin 10 ML .STK-MED ONE 01/21 2347 DC PO 01/21 2348 Guaifenesin 10 ML Q6P PRN 01/18 0215 AC 01/21 PO 2351 Heparin Sodium 5,000 UNIT .STK-MED ONE 01/22 0531 DC (Porcine) IV 01/22 0532 Heparin Sodium 3,632 UNIT BOLUS ONE 01/22 0530 DC 01/22 (Porcine) IV 01/22 0531 0659 Heparin Sodium 10,000 UNIT .STK-MED ONE 01/21 2150 DC (Porcine) IV 01/21 2151 Heparin Sodium 25,000 UNIT Q24H 01/21 1245 AC 01/22 (Porcine) IV 1351 Sodium Chloride 500 ML Insulin Aspart 0 TIDAC/HS 01/21 1200 AC SC Ipratropium [place] 2.5 ML BID 01/18 1130 AC 01/22 INH 1907 Levetiracetam 500 MG DAILY 01/20 1000 AC 01/22 PO 1137 Melatonin 5 MG AT BEDTIME 01/18 2200 AC 01/21 PO 2218 Methyl Salicylate 1 HILARIA TID PRN 01/19 1430 AC 01/20 TOP 0617 Oxybutynin Chloride 10 MG TID 01/21 1000 AC 01/22 PO 1700 Oxycodone/ 1 TAB Q4P PRN 01/18 0930 AC 01/22 Acetamin[place] PO 0847 Pantoprazole Sodium 40 MG BID 01/20 1145 AC 01/22 IV 1137 Sodium Hypochlorite 1 HILARIA DAILY 01/18 1245 AC 01/22 TOP 1139 Trazodone HCl 50 MG .STK-MED ONE 01/22 0000 DC PO 01/22 0001 Trazodone HCl 25 MG Q12H PRN 01/18 0015 AC 01/22 PO 0008 Vancomycin HCl 1,000 MG Q12 01/22 1158 AC 01/22 Sodium Chloride 250 ML IV 1300 Last 24 Hrs of Lab/Perfecto Results Last 24 Hrs of Labs/Mics: Laboratory Tests 01/22/17 1136: APTT 98 H 01/22/17 0350: Anion Gap 5, Estimated GFR > 60, BUN/Creatinine Ratio 25.0, Magnesium 1.7, APTT 55 H, CBC w Diff MAN DIFF ORDERED, RBC 3.79 L, MCV 79.9 L, MCH 25.7 L, RDW 19.7 H, MPV 6.7 L, Gran % 84.4 H, Lymphocytes % 7.2 L, Monocytes % 5.4, Eosinophils % 2.5, Basophils % 0.5, Absolute Granulocytes 13.3 H, Absolute Lymphocytes 1.1 L, Absolute Monocytes 0.8 H, Absolute Eosinophils 0.4, Absolute Basophils 0.1, Platelet Estimate INCREASED, Polychromasia 1+, Hypochromic-Microcytic 1+, Poikilocytosis 1+, Delio Cells 1+, PUBS MCHC 32.2 L 01/21/172041: APTT 44 H Microbiology 01/22 1336 LOWER RESP: Respiratory Culture - RES 01/22 133 LOWER RESP: Gram Stain - RES Assessment/Plan Assessment: # Septic shock on admission, most likely 2/2 pneumonia Sputum culture from January 19 came back positive for MRSA. * We will switch Unasyn to vancomycin * We will repeat chest x-ray * We will follow any further ID recommendation #Decubitus ulcer * Dr. Jung, plastic surgery * Wound vac needs to be replaced ## Leaking suprapubic catheter - Spoke to Dr. Koch on 01/21/17 who stated that the catheter was replaced in the office 2 weeks prior, she is aware of the leakage and does not need to see the patient, and recommends continuing oxybutinin 10 tid. # Acute blood loss anemia, GI blood loss H&H is stable post blood transfusion. GI is on board, they recommended taking patient for EGD tomorrow to exclude any upper GI bleeding prior to long-term anticoagulation. * Nothing by mouth after midnight * We will hold heparin at 8 AM * GI is OK with continuing aspirin * We will continue PPI # Hx of PE * We will continue holding Xarelto for now * We will continue patient on IV heparin * We will follow GI recommendation regarding restarting Xarelto, post EGD. # DM * Accucheck, novolog tidac/qhs Diet: NPO midnight for EGD in am DVT ppx: alps , heparin drip FULL CODE Problem List: 1. Septic shock Pain Ratin Pain Location: na Pain Goal: Remain pain free Pain Plan: see A&P Tomorrow's Labs & Rationales: cbc and bep
--- NOTE | 2017-01-22 07:37 | Transfer of Care Summary ---
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 Came in with BP of 58/32 and pulse rate of 150, given fluid boluses, and required pressor support with levophed in the ICU. White count was 29k with bands. Lactic acid 3.6. K 6.2, Na 134, cr 1.3 (baseline 0.8). Source of sepsis most likely pneumonia (aspiration vs healthcare acquired, + cough, difficulty bringing up sputum, sputum grew yeast and staph aureus, imaging showed atelectasis vs pna), other differentials incude: abdominal process (keep in mind his UC from few weeks prior to admission grew pseudomonas which implies gut colonization as well, resistant to ceftaz and zosyn), urinary tract infection (chronic suprapubic catheter-leaking), c diff (significant abx exposure, loose stool, but c diff negative), ischemic colitis (hypotension, blood noted in the colostomy bag), stage 4 decubitus ulcer with wound vac draining serosanguinous fluid (has necrotic edges, but otherwise no obvious purulent drainage, surgery does not think need debridement), pancreatitis ( elevated amylase, lipase normal), biliary process (tender RUQ, had cholecystectomy). Patient received IV unasyn and ceftazidime on day #1, subsequently changed to mepenem on 01/18/17 (day2), continued till 01/21/17. His BP and leukocytosis improved on this. He is now off pressors. He was switched to unasyn on 01/21/17. Although he grew staph aureus in the sputum, which most likely is MRSA, unclear whether it is the source of sepsis or whether it is a colonization, as he had not received abx with MRSA coverage while his condition improved on the abx given. Femoral central line was placed in the ED for vasopressor, subsequently PICC line placed on 01/18/17, and he was started on heparin drip given hx of PE. Femoral line was removed on 01/18/17 pm, with significant bleed causing a drop in hb from 7.6 to 6.7. In addition to that, he started having loose guaiac positive stool in the colostomy bag (which was tested and negative for c diff). Heparin drip has been held. GI was consulted, and no urgent endoscopy was pursued. He was transfused 4 units of PRBC so far, with hb at 9.4. Heparin drip resumed without bolus on 01/21/17. Wound vac was removed on 01/18/17, and would need to be replaced. Dr. Jung will come evaluate the patient on 01/22/17 to evaluate if pt needs to be debrided and to replace wound vac. Lines: PICC line day #5 Suprapubic catheter (prehospital, leaking) Femoral line removed after 1 day Assessment/Plan: Problem list: # Septic shock on admission, most likely due to pneumonia # Nausea and bilious vomiting, abdominal tenderness on admission # Acute blood loss anemia, GI blood loss # Hx of PE, xarelto on hold # Leaking suprapubic catheter ID: Septic shock (resolved) - Came in with 58/32 and pulse rate of 150, ERICKA (cr 1.3, baseline 0.8), WBC 29K with bands, LA 3.6. K 6.2, Na 134. - 01/21/17: cr down to 0.6, wbc 12.1, k 3.8, na 137. - Spoke to Dr. Jung who does not recommend debridement of the ulcer as it does not look infected and unlikely to be the source of sepsis. His CT findings would likely show findings consistent with osteomyelitis but it still will not be an indication to debride. Wound vac has been removed. - CT showed possible mild colitis, atelectasis vs PNA. * Decubitus ulcer wet to dry dressing for now, and Dr. Guzman also recommended dakins daily and PRN. * Wound vac needs to be replaced * Dr. Jung, plastic surgery, consulted * ID consulted * Follow up cx * Was given unasyn and ceftazidime in ED. Meropenem 1q8 started 01/18/17 - 01/21/17 , changed to unasyn 1.6q6, today is abx day #6 Cardiovascular # Hypotension, consistent with septic shock (resolved) - Came in with BP 58/32, given 6L NS bolus, and was started on levophed, BP has improved * Off IVF and vasopressors # Hx of HTN * Holding 10 mg lisinopril daily and lasix 20 mg q48 Respiratory # Hx of PE * Hold xarelto 20 mg daily. * Heparin drip was started after picc line insertion, subsequently held for bleeding post femoral line removal and guaiac positive stool. heparin drip resumed 01/21/17. Endocrine # DM * Accucheck, novolog tidac/qhs Heme # Acute on chronic anemia, most likely secondary to blood loss from removal of femoral line and GI blood loss (guaiac positive stool) when he was on heparin drip given hx of PE (was on xarelto prior to admission). - 01/19: Pt transfused 2 units with hb up to 7.7 - 01/20: Transfuse another unit, hb up to 9.4 * Monitor CBC daily * No plan for scope now * GI consulted, continue aspirin, started IV PPI BID, hold heparin drip, however heparin drip have been resumed on 01/21/17 # Leaking suprapubic catheter - Spoke to Dr. Koch on 01/21/17 who stated that the catheter was replaced in the office 2 weeks prior, she is aware of the leakage and does not need to see the patient, and recommends continuing oxybutinin 10 tid. # Continue home meds Keppra ASA Lipitor Trazodone (hold if lethargic) Melatonin Percocet Q4P Diet: Full liquid (advance as tolerated/ as per GI) IVF: off DVT ppx: alps , heparin drip FULL CODE Consults: plastic surgery, ID, pulm, GI, wound care. Labs: ICU, BEP, Mag Attending MD Review Statement Documenting Attending: DENEEN MULLIGAN,NIC Patel
--- NOTE | 2017-01-22 09:47 | PN- Att Addend ---
Attending Addendum Attending Brief Note Patient is awake and alert and has minimal complaints. General Appearance: Alert, No Acute Distress Skin: Sacral decubitus with wound VAC HEENT: PEERLA Neck: Supple, No JVD Cardiovascular: Regular Rate, Normal S1, Normal S2, No Murmurs Lungs: Clear to Auscultation, Normal Air Movement Abdomen: Normal Bowel Sounds, Soft, No Tenderness Neurological: Normal Speech, Strength at 5/5 X4 Ext, Cranial Nerves 3-12 NL, Reflexes 2+ Extremities: No Clubbing, No Cyanosis, No Edema Assessment Blood pressure improved and currently is off pressors. GI bleed with anemia seen by GI who recommended outpatient workup unless patient has active bleeding. His hemoglobin has remained stable after total 4 units PRBC. CAT scan CAP negative except for bibasilar atelectasis/pneumonia. His sputum culture is growing staph aureus and now MRSA. Overall his clinical status is stable however source of infection is still remains unclear. Plan We'll defer antibiotics choice to ID Urology and plastic surgery evaluation as outpatient Continue other meds xarelto on hold for GI bleed and currently on aspirin Current Medications Sig/Mey Start time Last Medication Dose Route Stop Time Status Admin Acetaminophen 1,000 MG Q6P PRN 01/18 0045 AC 01/21 N/A 1 UNIT IV 0745 Albuterol Sulfate 3 ML BID 01/18 1130 AC 01/22 INH 0939 Ampicillin Sodium/ 1,500 MG Q6 01/21 1200 AC 01/22 Sulbactam Sodium IV 0657 Sodium Chloride 100 ML Aspirin 81 MG DAILY 01/18 1000 AC 01/21 PO 1131 Atorvastatin Calcium 10 MG 1700 01/18 1700 AC 01/21 PO 1715 Dextrose/Sodium 1,000 ML Q13H 01/20 0930 DC 01/20 Chloride IV 2252 Guaifenesin 10 ML .STK-MED ONE 01/21 2347 DC PO 01/21 2348 Guaifenesin 10 ML .STK-MED ONE 01/21 1711 DC PO 01/21 1712 Guaifenesin 10 ML Q6P PRN 01/18 0215 AC 01/21 PO 2351 Heparin Sodium 3,632 UNIT BOLUS ONE 01/22 0530 DC 01/22 (Porcine) IV 01/22 0531 0659 Heparin Sodium 10,000 UNIT .STK-MED ONE 01/21 2150 DC (Porcine) IV 01/21 2151 Heparin Sodium 25,000 UNIT Q24H 01/21 1245 AC 01/21 (Porcine) IV 2221 Sodium Chloride 500 ML Insulin Aspart 0 TIDAC/HS 01/21 1200 AC SC Insulin Human Regular 0 Q6 01/20 1200 DC 01/20 SC 1240 Ipratropium [place] 2.5 ML BID 01/18 1130 AC 01/22 INH 0939 Levetiracetam 500 MG DAILY 01/20 1000 AC 01/21 PO 1131 Melatonin 5 MG AT BEDTIME 01/18 2200 AC 01/21 PO 2218 Meropenem 1 GM IQ8 01/18 1130 DC 01/21 IV 0744 Methyl Salicylate 1 HILARIA TID PRN 01/19 1430 AC 01/20 TOP 0617 Oxybutynin Chloride 10 MG TID 01/21 1000 AC 01/21 PO 2218 Oxycodone/ 1 TAB Q4P PRN 01/18 0930 AC 01/22 Acetaminophen PO 0847 Pantoprazole Sodium 40 MG BID 01/20 1145 AC 01/21 IV 2221 Patient Medication 1 UNIT 1200 01/21 1200 DC 01/21 Teaching ED 01/21 1201 1451 Sodium Hypochlorite 1 HILARIA DAILY 01/18 1245 AC 01/21 TOP 1134 Trazodone HCl 50 MG .STK-MED ONE 01/22 0000 DC PO 01/22 0001 Trazodone HCl 25 MG Q12H PRN 01/18 0015 AC 01/22 PO 0008 Laboratory Tests 01/22 01/21 0350 2042 Chemistry Sodium (137 - 145 mmol/L) 135 L Potassium (3.5 - 5.1 mmol/L) 3.9 Chloride (98 - 107 mmol/L) 110 H Carbon Dioxide (22 - 30 mmol/L) 20 L Anion Gap (5 - 16) 5 BUN (9 - 20 mg/dL) 15 Creatinine (0.7 - 1.2 mg/dL) 0.6 L Estimated GFR (>60 ml/min) > 60 BUN/Creatinine Ratio (7 - 25 %) 25.0 Magnesium (1.6 - 2.3 mg/dL) 1.7 Coagulation APTT (25 - 37 SEC) 55 H 44 H Hematology CBC w Diff MAN DIFF ORDERED WBC (4.8 - 10.8 /CUMM) 15.7 H RBC (4.70 - 6.10 /CUMM) 3.79 L Hgb (14.0 - 18.0 G/DL) 9.7 L Hct (42 - 52 %) 30.3 L MCV (80.0 - 94.0 FL) 79.9 L MCH (27.0 - 31.0 PG) 25.7 L RDW (11.5 - 14.5 %) 19.7 H Plt Count (130 - 400 /CUMM) 429 H MPV (7.4 - 10.4 FL) 6.7 L Gran % (42.2 - 75.2 %) 84.4 H Lymphocytes % (20.5 - 51.1 %) 7.2 L Monocytes % (1.7 - 9.3 %) 5.4 Eosinophils % (0 - 5 %) 2.5 Basophils % (0.0 - 2.0 %) 0.5 Absolute Granulocytes (1.4 - 6.5 /CUMM) 13.3 H Absolute Lymphocytes (1.2 - 3.4 /CUMM) 1.1 L Absolute Monocytes (0.10 - 0.60 /CUMM) 0.8 H Absolute Eosinophils (0.0 - 0.7 /CUMM) 0.4 Absolute Basophils (0.0 - 0.2 /CUMM) 0.1 Platelet Estimate (ADEQUATE) INCREASED Polychromasia 1+ Hypochromic-Microcytic 1+ Poikilocytosis 1+ [place] Cells 1+ PUBS MCHC (33.0 - 37.0 G/DL) 32.2 L Vital Signs Date Time Temp Pulse Resp B/P Pulse O2 O2 Flow FiO2 Ox Delivery Rate 01/22 0943 90 Nasal 2.0L Cannula 01/22 0716 98.2 90 24 150/80 92 Nasal 2.0L Cannula 01/22 0000 Nasal 2.0L Cannula 01/21 2209 98.2 81 21 140/56 Nasal 2.0L Cannula 01/21 1859 94 Nasal 4.0L Cannula 01/21 1600 95 Nasal 2.0L Cannula 01/21 1600 98.6 80 20 140/60 95 Nasal 2.0L Cannula 01/21 1000 94 Nasal 4.0L Cannula
--- NOTE | 2017-01-22 09:59 | PN- Pulmonary ---
Subjective HPI/Critical Care Issues: Little better this morning. Has no significant complaints. Blood pressure is improved. Hemoglobin has remained stable after PRBC transfusion 4. Sputum cultures now growing MRSA. Amilcar is currently on hold and patient is very high risk for recurrent venous thromboembolism as he did have a significant PE. Abdominal ultrasound reviewed no evidence of bile leak and large liver renal cysts aortic aneurysm. Chest x-ray done few days ago showed improvement. Objective Current Medications: Current Medications Sig/Mey Start time Last Medication Dose Route Stop Time Status Admin Acetaminophen 1,000 MG Q6P PRN 01/18 0045 AC 01/21 N/A 1 UNIT IV 0745 Albuterol Sulfate 3 ML BID 01/18 1130 AC 01/22 INH 0939 Ampicillin Sodium/ 1,500 MG Q6 01/21 1200 AC 01/22 Sulbactam Sodium IV 0657 Sodium Chloride 100 ML Aspirin 81 MG DAILY 01/18 1000 AC 01/21 PO 1131 Atorvastatin Calcium 10 MG 1700 01/18 1700 AC 01/21 PO 1715 Dextrose/Sodium 1,000 ML Q13H 01/20 0930 DC 01/20 Chloride IV 2252 Guaifenesin 10 ML .STK-MED ONE 01/21 2347 DC PO 01/21 2348 Guaifenesin 10 ML .STK-MED ONE 01/21 1711 DC PO 01/21 1712 Guaifenesin 10 ML Q6P PRN 01/18 0215 AC 01/21 PO 2351 Heparin Sodium 3,632 UNIT BOLUS ONE 01/22 0530 DC 01/22 (Porcine) IV 01/22 0531 0659 Heparin Sodium 10,000 UNIT .STK-MED ONE 01/21 2150 DC (Porcine) IV 01/21 2151 Heparin Sodium 25,000 UNIT Q24H 01/21 1245 AC 01/21 (Porcine) IV 2221 Sodium Chloride 500 ML Insulin Aspart 0 TIDAC/HS 01/21 1200 AC SC Insulin Human Regular 0 Q6 01/20 1200 DC 01/20 SC 1240 Ipratropium [place] 2.5 ML BID 01/18 1130 AC 01/22 INH 0939 Levetiracetam 500 MG DAILY 01/20 1000 AC 01/21 PO 1131 Melatonin 5 MG AT BEDTIME 01/18 2200 AC 04 PO 2218 Meropenem 1 GM IQ8 01/18 1130 DC 01/21 IV 0744 Methyl Salicylate 1 HILARIA TID PRN 01/19 1430 AC 01/20 TOP 0617 Oxybutynin Chloride 10 MG TID 01/21 1000 AC 01/21 PO 2218 Oxycodone/ 1 TAB Q4P PRN 01/18 0930 AC 01/22 [place]amin[place] PO 0847 Pantoprazole Sodium 40 MG BID 01/20 1145 AC 01/21 IV 2221 Patient Medication 1 UNIT 1200 01/21 1200 DC 01/21 Teaching ED 01/21 1201 1451 Sodium Hypochlorite 1 HILARIA DAILY 01/18 1245 AC 01/21 TOP 1134 Trazodone HCl 50 MG .STK-MED ONE 01/22 0000 DC PO 01/22 0001 Trazodone HCl 25 MG Q12H PRN 01/18 0015 AC 01/22 PO 0008 Vital Signs & I&O Last 24 Hrs of Vitals and I&O: Vital Signs Date Time Temp Pulse Resp B/P Pulse O2 O2 Flow FiO2 Ox Delivery Rate 01/22 0943 90 Nasal 2.0L Cannula 01/22 0716 98.2 90 24 150/80 92 Nasal 2.0L Cannula 01/22 0000 Nasal 2.0L Cannula 01/21 2209 98.2 81 21 140/56 Nasal 2.0L Cannula 01/21 1859 94 Nasal 4.0L Cannula 01/21 1600 95 Nasal 2.0L Cannula 01/21 1600 98.6 80 20 140/60 95 Nasal 2.0L Cannula 01/21 1000 94 Nasal 4.0L Cannula Intake & Output 01/22 1600 01/22 0800 01/22 0000 Intake Total 539.2 366 Output Total 400 Balance 139.2 366 Intake, IV 199.2 126 Intake, Oral 340 240 Output, Stool 300 Output, Urine 100 Laboratory Tests 01/22 01/21 0350 2042 Chemistry Sodium (137 - 145 mmol/L) 135 L Potassium (3.5 - 5.1 mmol/L) 3.9 Chloride (98 - 107 mmol/L) 110 H Carbon Dioxide (22 - 30 mmol/L) 20 L Anion Gap (5 - 16) 5 BUN (9 - 20 mg/dL) 15 Creatinine (0.7 - 1.2 mg/dL) 0.6 L Estimated GFR (>60 ml/min) > 60 BUN/Creatinine Ratio (7 - 25 %) 25.0 Magnesium (1.6 - 2.3 mg/dL) 1.7 Coagulation APTT (25 - 37 SEC) 55 H 44 H Hematology CBC w Diff MAN DIFF ORDERED WBC (4.8 - 10.8 /CUMM) 15.7 H RBC (4.70 - 6.10 /CUMM) 3.79 L Hgb (14.0 - 18.0 G/DL) 9.7 L Hct (42 - 52 %) 30.3 L MCV (80.0 - 94.0 FL) 79.9 L MCH (27.0 - 31.0 PG) 25.7 L RDW (11.5 - 14.5 %) 19.7 H Plt Count (130 - 400 /CUMM) 429 H MPV (7.4 - 10.4 FL) 6.7 L Gran % (42.2 - 75.2 %) 84.4 H Lymphocytes % (20.5 - 51.1 %) 7.2 L Monocytes % (1.7 - 9.3 %) 5.4 Eosinophils % (0 - 5 %) 2.5 Basophils % (0.0 - 2.0 %) 0.5 Absolute Granulocytes (1.4 - 6.5 /CUMM) 13.3 H Absolute Lymphocytes (1.2 - 3.4 /CUMM) 1.1 L Absolute Monocytes (0.10 - 0.60 /CUMM) 0.8 H Absolute Eosinophils (0.0 - 0.7 /CUMM) 0.4 Absolute Basophils (0.0 - 0.2 /CUMM) 0.1 Platelet Estimate (ADEQUATE) INCREASED Polychromasia 1+ Hypochromic-Microcytic 1+ Poikilocytosis 1+ [place] Cells 1+ PUBS MCHC (33.0 - 37.0 G/DL) 32.2 L 04/03 04/02 0500 1630 Chemistry Sodium (137 - 145 mmol/L) 137 Potassium (3.5 - 5.1 mmol/L) 3.8 Chloride (98 - 107 mmol/L) 114 H Carbon Dioxide (22 - 30 mmol/L) 20 L Anion Gap (5 - 16) 3 L BUN (9 - 20 mg/dL) 19 Creatinine (0.7 - 1.2 mg/dL) 0.6 L Estimated GFR (>60 ml/min) > 60 Glucose (65 - 99 mg/dL) 81 Calcium (8.4 - 10.2 mg/dL) 8.2 L Phosphorus (2.5 - 4.5 mg/dL) 2.9 Magnesium (1.6 - 2.3 mg/dL) 1.9 Total Bilirubin (0.2 - 1.3 mg/dL) 0.3 AST (17 - 59 U/L) 15 L ALT (21 - 72 U/L) 27 Albumin (3.5 - 5.0 g/dL) 1.9 L Hematology CBC w Diff MAN DIFF ORDERED NO MAN DIFF REQ WBC (4.8 - 10.8 /CUMM) 12.1 H 12.4 H RBC (4.70 - 6.10 /CUMM) 3.68 L 3.59 L Hgb (14.0 - 18.0 G/DL) 9.4 L 9.2 L Hct (42 - 52 %) 29.7 L 28.9 L MCV (80.0 - 94.0 FL) 80.7 80.5 MCH (27.0 - 31.0 PG) 25.5 L 25.6 L RDW (11.5 - 14.5 %) 19.3 H 18.9 H Plt Count (130 - 400 /CUMM) 404 H 374 MPV (7.4 - 10.4 FL) 7.1 L 7.1 L Gran % (42.2 - 75.2 %) 89.4 H 90.8 H Lymphocytes % (20.5 - 51.1 %) 5.5 L 5.2 L Monocytes % (1.7 - 9.3 %) 3.6 2.9 Eosinophils % (0 - 5 %) 1.3 1.0 Basophils % (0.0 - 2.0 %) 0.2 0.1 Absolute Granulocytes (1.4 - 6.5 /CUMM) 10.8 H 11.2 H Segmented Neutrophils (42.2 - 75.2 %) 94 H Absolute Lymphocytes (1.2 - 3.4 /CUMM) 0.7 L 0.6 L Lymphocytes (20.5 - 51.1 %) 4 L Absolute Monocytes (0.10 - 0.60 /CUMM) 0.4 0.4 Eosinophils (0 - 5.0 %) 2 Absolute Eosinophils (0.0 - 0.7 /CUMM) 0.2 0.1 Absolute Basophils (0.0 - 0.2 /CUMM) 0 0 Platelet Estimate (ADEQUATE) INCREASED Polychromasia 1+ Hypochromic-Microcytic 1+ Poikilocytosis 1+ Anisocytosis 1+ Microcytic Cells 1+ Ovalocytes 1+ PUBS MCHC (33.0 - 37.0 G/DL) 31.6 L 31.8 L Other Body Source Fld Total RBCs Counted (%) 100 Microbiology Date/Time Procedure - Status Source Growth 01/19 1240 Clostridium difficile Toxin A & B - COMP STOOL Impression/Plan Impression/Plan Impression/Plan: IMPRESSION This is a 71-year-old gentleman with previous history of spinal stroke after abdominal aortic aneurysm repair leading to paraplegia, indwelling [place] with suprapubic catheter, nonhealing decubiti ulcer, multiple antibiotics for polymicrobial sacral osteomyelitis now, previous diversion colostomy, diabetes, hypertension, hyperlipidemia, coronary artery disease, hypertension, GERD, anxiety and depression, recent bilateral pulmonary embolism, was on Xeralto now comes in with Resolved Septic shock most likely related to polymicrobial sepsis from the sacral decubiti. CT suggest bibasilar infiltrates prob pna with staph in the sputum, now growing MRSA Previous bilateral pulmonary embolism now was on adequate anticoagulation unlikely that he has ongoing venous thromboembolism Diabetes, hypertension, hyperlipidemia, anxiety and depression stable Acute on chronic renal insufficiency now creatinine returning back to normal Paraplegia Probable malignancy in the kidney as noted in the previous CT Previous thrombocytosis may be related to his underlying pathophysiology which needs to be followed RECOMMENDATION Can discontinue all intravenous fluids and the encourage by mouth fluid Antibiotics per infectious disease, sputum is growing MRSA and not sure vancomycin would be appropriate at this time as patient is clinically improved. Repeat a chest x-ray. Start heparin iv without bolus today if stable, continue to monitor for any GI bleed. Please ask GI to evaluate and see whether he would be a candidate to resume's also has recently had a significant pulmonary embolism. Check all stool for heme Check C BC daily
--- NOTE | 2017-01-22 11:34 | PN- Infect Dx ---
Subjective Subjective: Afebrile. He feels well with no complaints. Objective Last 24 Hrs of Vital Signs/I&O Vital Signs Date Time Temp Pulse Resp B/P Pulse O2 O2 Flow FiO2 Ox Delivery Rate 01/22 0943 90 Nasal 2.0L Cannula 01/22 0716 98.2 90 24 150/80 92 Nasal 2.0L Cannula 01/22 0000 Nasal 2.0L Cannula 01/21 2209 98.2 81 21 140/56 Nasal 2.0L Cannula 01/21 1859 94 Nasal 4.0L Cannula 01/21 1600 95 Nasal 2.0L Cannula 01/21 1600 98.6 80 20 140/60 95 Nasal 2.0L Cannula Intake & Output 01/22 1600 01/22 0800 01/22 0000 Intake Total 539.2 366 Output Total 400 Balance 139.2 366 Intake, IV 199.2 126 Intake, Oral 340 240 Output, Stool 300 Output, Urine 100 Physical Exam Other Physical Findings: He appears comfortable in no acute distress Lungs decreased breath sounds both bases Heart regular rhythm with no murmur Abdomen is soft, nontender with positive bowel sounds Extremities PICC in the right upper extremity with no inflammation at the site Results Last 24 Hours of Lab Results: Laboratory Tests 01/22 01/21 0350 2 Chemistry Sodium (137 - 145 mmol/L) 135 L Potassium (3.5 - 5.1 mmol/L) 3.9 Chloride (98 - 107 mmol/L) 110 H Carbon Dioxide (22 - 30 mmol/L) 20 L Anion Gap (5 - 16) 5 BUN (9 - 20 mg/dL) 15 Creatinine (0.7 - 1.2 mg/dL) 0.6 L Estimated GFR (>60 ml/min) > 60 BUN/Creatinine Ratio (7 - 25 %) 25.0 Magnesium (1.6 - 2.3 mg/dL) 1.7 Coagulation APTT (25 - 37 SEC) 55 H 44 H Hematology CBC w Diff MAN DIFF ORDERED WBC (4.8 - 10.8 /CUMM) 15.7 H RBC (4.70 - 6.10 /CUMM) 3.79 L Hgb (14.0 - 18.0 G/DL) 9.7 L Hct (42 - 52 %) 30.3 L MCV (80.0 - 94.0 FL) 79.9 L MCH (27.0 - 31.0 PG) 25.7 L RDW (11.5 - 14.5 %) 19.7 H Plt Count (130 - 400 /CUMM) 429 H MPV (7.4 - 10.4 FL) 6.7 L Gran % (42.2 - 75.2 %) 84.4 H Lymphocytes % (20.5 - 51.1 %) 7.2 L Monocytes % (1.7 - 9.3 %) 5.4 Eosinophils % (0 - 5 %) 2.5 Basophils % (0.0 - 2.0 %) 0.5 Absolute Granulocytes (1.4 - 6.5 /CUMM) 13.3 H Absolute Lymphocytes (1.2 - 3.4 /CUMM) 1.1 L Absolute Monocytes (0.10 - 0.60 /CUMM) 0.8 H Absolute Eosinophils (0.0 - 0.7 /CUMM) 0.4 Absolute Basophils (0.0 - 0.2 /CUMM) 0.1 Platelet Estimate (ADEQUATE) INCREASED Polychromasia 1+ Hypochromic-Microcytic 1+ Poikilocytosis 1+ [place] Cells 1+ PUBS MCHC (33.0 - 37.0 G/DL) 32.2 L Last 24 Hours of [place] Results: Sputum culture January 19 positive for MRSA Recent Imaging Studies: Right upper quadrant ultrasound January 21 no acute process Assessment/Plan Impression: Clinically improved with temperatures remaining normal and respiratory status better, but with white blood cell count increased today and with sputum culture growing Staph aureus, identified today as MRSA. He is currently on Unasyn but, given that the most likely cause of his sepsis was pulmonary, it may be prudent to treat this organism. Suggestion: 1. Repeat sputum culture 2. Further management of his sacral decubitus per Plastic surgery 3. Further management of his urinary leakage per Urology 4. Discontinue Unasyn 5. Begin Vancomycin 1 g IV every 12 hours
[2017-01-22 12:57] LABS: PTT 98 SEC (25-37)
[2017-01-22 14:45] VITALS: BP 130/66
--- NOTE | 2017-01-22 18:14 | PN- Gastroenterology ---
Assessment/Plan Assessment/Recommendations: Recent GI bleed, while anticoagulated and on aspirin. Heparin has been restarted. Hemoglobin has remained stable over the past two days, following transfusion of 3 units of packed red blood cells. No overt bleeding. As discussed with patient, would be of great benefit to rule out potential bleeding ulcer prior to reinstituting oral anticoagulant. Recommendations * Nothing by mouth after midnight; hold heparin at 8 AM * May continue aspirin * Continue PPI * EGD tomorrow (currently on 2 L of oxygen via nasal cannula, with acceptable O2 saturation of 95%). Subjective Subjective: No heartburn, indigestion, nausea, vomiting, abdominal pain, blood per rectum or melena. Objective Vital Signs and I&Os Vital Signs Date Time Temp Pulse Resp B/P Pulse O2 O2 Flow FiO2 Ox Delivery Rate 01/22 1445 98.0 94 20 130/66 95 Room Air 01/22 0943 90 Nasal 2.0L Cannula 01/22 0716 98.2 90 24 150/80 92 Nasal 2.0L Cannula 01/22 0000 Nasal 2.0L Cannula 01/21 2209 98.2 81 21 140/56 Nasal 2.0L Cannula 01/21 1859 94 Nasal 4.0L Cannula Intake & Output 01/22 1600 01/22 0400 01/21 1600 01/21 0400 01/20 1600 01/20 0400 Intake Total 2139.2 366 0747 727 5280 1231 Output Total 1050 255 610 5577 708 Balance 1089.2 366 917 993 7876 523 Intake, Blood 651 Product Intake, IV 899.2 126 211 679 8874 651 Intake, Oral 1240 240 480 120 400 580 Output, Stool 700 200 1 750 300 Output, Urine 350 200 150 462 408 Patient 200 lb 197 lb Weight Physical Exam: Sclera anicteric. Abdomen soft, nondistended, nontender. Current Medications: Current Medications Sig/Mey Start time Last Medication Dose Route Stop Time Status Admin Acetaminophen 1,000 MG Q6P PRN 01/18 0045 AC 01/21 N/A 1 UNIT IV 0745 Albuterol Sulfate 3 ML BID 01/18 1130 AC 01/22 INH 0939 Ampicillin Sodium/ 1,500 MG Q6 01/21 1200 DC 01/22 Sulbactam Sodium IV 1126 Sodium Chloride 100 ML Aspirin 81 MG DAILY 01/18 1000 AC 01/22 PO 1137 Atorvastatin Calcium 10 MG 1700 01/18 1700 AC 01/22 PO 1700 Guaifenesin 10 ML .STK-MED ONE 01/21 2347 DC PO 01/21 2348 Guaifenesin 10 ML Q6P PRN 01/18 0215 AC 01/21 PO 2351 Heparin Sodium 5,000 UNIT .STK-MED ONE 01/22 0531 DC (Porcine) IV 01/22 0532 Heparin Sodium 3,632 UNIT BOLUS ONE 01/22 0530 DC 01/22 (Porcine) IV 01/22 0531 0659 Heparin Sodium 10,000 UNIT .STK-MED ONE 01/21 2150 DC (Porcine) IV 01/21 2151 Heparin Sodium 25,000 UNIT Q24H 01/21 1245 AC 01/22 (Porcine) IV 1351 Sodium Chloride 500 ML Insulin Aspart 0 TIDAC/HS 01/21 1200 AC SC Ipratropium [place] 2.5 ML BID 01/18 1130 AC 01/22 INH 0939 Levetiracetam 500 MG DAILY 01/20 1000 AC 01/22 PO 1137 Melatonin 5 MG AT BEDTIME 01/18 2200 AC 01/21 PO 2218 Methyl Salicylate 1 HILARIA TID PRN 01/19 1430 AC 01/20 TOP 0617 Oxybutynin Chloride 10 MG TID 01/21 1000 AC 01/22 PO 1700 Oxycodone/ 1 TAB Q4P PRN 01/18 0930 AC 01/22 Acetaminophen PO 0847 Pantoprazole Sodium 40 MG BID 01/20 1145 AC 01/22 IV 1137 Sodium Hypochlorite 1 HILARIA DAILY 01/18 1245 AC 01/22 TOP 1139 Trazodone HCl 50 MG .STK-MED ONE 01/22 0000 DC PO 01/22 0001 Trazodone HCl 25 MG Q12H PRN 01/18 0015 AC 01/22 PO 0008 Vancomycin HCl 1,000 MG Q12 01/22 1158 AC 01/22 Sodium Chloride 250 ML IV 1300 Results Pertinent Lab Results: Laboratory Tests 01/22 01/22 01/21 1136 0350 2042 Chemistry Sodium (137 - 145 mmol/L) 135 L Potassium (3.5 - 5.1 mmol/L) 3.9 Chloride (98 - 107 mmol/L) 110 H Carbon Dioxide (22 - 30 mmol/L) 20 L Anion Gap (5 - 16) 5 BUN (9 - 20 mg/dL) 15 Creatinine (0.7 - 1.2 mg/dL) 0.6 L Estimated GFR (>60 ml/min) > 60 BUN/Creatinine Ratio (7 - 25 %) 25.0 Magnesium (1.6 - 2.3 mg/dL) 1.7 Coagulation APTT (25 - 37 SEC) 98 H 55 H 44 H Hematology CBC w Diff MAN DIFF ORDERED WBC (4.8 - 10.8 /CUMM) 15.7 H RBC (4.70 - 6.10 /CUMM) 3.79 L Hgb (14.0 - 18.0 G/DL) 9.7 L Hct (42 - 52 %) 30.3 L MCV (80.0 - 94.0 FL) 79.9 L MCH (27.0 - 31.0 PG) 25.7 L RDW (11.5 - 14.5 %) 19.7 H Plt Count (130 - 400 /CUMM) 429 H MPV (7.4 - 10.4 FL) 6.7 L Gran % (42.2 - 75.2 %) 84.4 H Lymphocytes % (20.5 - 51.1 %) 7.2 L Monocytes % (1.7 - 9.3 %) 5.4 Eosinophils % (0 - 5 %) 2.5 Basophils % (0.0 - 2.0 %) 0.5 Absolute Granulocytes (1.4 - 6.5 /CUMM) 13.3 H Absolute Lymphocytes (1.2 - 3.4 /CUMM) 1.1 L Absolute Monocytes (0.10 - 0.60 /CUMM) 0.8 H Absolute Eosinophils (0.0 - 0.7 /CUMM) 0.4 Absolute Basophils (0.0 - 0.2 /CUMM) 0.1 Platelet Estimate (ADEQUATE) INCREASED Polychromasia 1+ Hypochromic-Microcytic 1+ Poikilocytosis 1+ [place] Cells 1+ PUBS MCHC (33.0 - 37.0 G/DL) 32.2 L /03 04/02 0500 1630 Chemistry Sodium (137 - 145 mmol/L) 137 Potassium (3.5 - 5.1 mmol/L) 3.8 Chloride (98 - 107 mmol/L) 114 H Carbon Dioxide (22 - 30 mmol/L) 20 L Anion Gap (5 - 16) 3 L BUN (9 - 20 mg/dL) 19 Creatinine (0.7 - 1.2 mg/dL) 0.6 L Estimated GFR (>60 ml/min) > 60 Glucose (65 - 99 mg/dL) 81 Calcium (8.4 - 10.2 mg/dL) 8.2 L Phosphorus (2.5 - 4.5 mg/dL) 2.9 Magnesium (1.6 - 2.3 mg/dL) 1.9 Total Bilirubin (0.2 - 1.3 mg/dL) 0.3 AST (17 - 59 U/L) 15 L ALT (21 - 72 U/L) 27 Albumin (3.5 - 5.0 g/dL) 1.9 L Hematology CBC w Diff MAN DIFF ORDERED NO MAN DIFF REQ WBC (4.8 - 10.8 /CUMM) 12.1 H 12.4 H RBC (4.70 - 6.10 /CUMM) 3.68 L 3.59 L Hgb (14.0 - 18.0 G/DL) 9.4 L 9.2 L Hct (42 - 52 %) 29.7 L 28.9 L MCV (80.0 - 94.0 FL) 80.7 80.5 MCH (27.0 - 31.0 PG) 25.5 L 25.6 L RDW (11.5 - 14.5 %) 19.3 H 18.9 H Plt Count (130 - 400 /CUMM) 404 H 374 MPV (7.4 - 10.4 FL) 7.1 L 7.1 L Gran % (42.2 - 75.2 %) 89.4 H 90.8 H Lymphocytes % (20.5 - 51.1 %) 5.5 L 5.2 L Monocytes % (1.7 - 9.3 %) 3.6 2.9 Eosinophils % (0 - 5 %) 1.3 1.0 Basophils % (0.0 - 2.0 %) 0.2 0.1 Absolute Granulocytes (1.4 - 6.5 /CUMM) 10.8 H 11.2 H Segmented Neutrophils (42.2 - 75.2 %) 94 H Absolute Lymphocytes (1.2 - 3.4 /CUMM) 0.7 L 0.6 L Lymphocytes (20.5 - 51.1 %) 4 L Absolute Monocytes (0.10 - 0.60 /CUMM) 0.4 0.4 Eosinophils (0 - 5.0 %) 2 Absolute Eosinophils (0.0 - 0.7 /CUMM) 0.2 0.1 Absolute Basophils (0.0 - 0.2 /CUMM) 0 0 Platelet Estimate (ADEQUATE) INCREASED Polychromasia 1+ Hypochromic-Microcytic 1+ Poikilocytosis 1+ Anisocytosis 1+ Microcytic Cells 1+ Ovalocytes 1+ PUBS MCHC (33.0 - 37.0 G/DL) 31.6 L 31.8 L Other Body Source Fld Total RBCs Counted (%) 100 01/20 01/20 01/20 0931 0345 0120 Chemistry Sodium (137 - 145 mmol/L) 134 L Potassium (3.5 - 5.1 mmol/L) 3.6 Chloride (98 - 107 mmol/L) 110 H Carbon Dioxide (22 - 30 mmol/L) 19 L Anion Gap (5 - 16) 6 BUN (9 - 20 mg/dL) 29 H Creatinine (0.7 - 1.2 mg/dL) 0.7 Estimated GFR (>60 ml/min) > 60 Glucose (65 - 99 mg/dL) 68 Calcium (8.4 - 10.2 mg/dL) 7.9 L Phosphorus (2.5 - 4.5 mg/dL) 3.1 Magnesium (1.6 - 2.3 mg/dL) 2.0 Total Bilirubin (0.2 - 1.3 mg/dL) 0.4 AST (17 - 59 U/L) 17 ALT (21 - 72 U/L) 30 Albumin (3.5 - 5.0 g/dL) 1.8 L Hematology CBC w Diff MAN DIFF ORDERED WBC (4.8 - 10.8 /CUMM) 12.3 H 14.1 H RBC (4.70 - 6.10 /CUMM) 3.02 L 2.99 L Hgb (14.0 - 18.0 G/DL) 7.7 L 7.6 L Hct (42 - 52 %) 23.9 L 23.6 L MCV (80.0 - 94.0 FL) 79.2 L 79.1 L MCH (27.0 - 31.0 PG) 25.4 L 25.5 L RDW (11.5 - 14.5 %) 19.0 H 19.9 H Plt Count (130 - 400 /CUMM) 360 423 H MPV (7.4 - 10.4 FL) 6.9 L 7.1 L Gran % (42.2 - 75.2 %) 93.6 H 93.4 H Lymphocytes % (20.5 - 51.1 %) 4.0 L 4.9 L Monocytes % (1.7 - 9.3 %) 1.4 L 1.3 L Eosinophils % (0 - 5 %) 0.9 0.4 Basophils % (0.0 - 2.0 %) 0.1 0 L Absolute Granulocytes (1.4 - 6.5 /CUMM) 11.5 H 13.2 H Segmented Neutrophils (42.2 - 75.2 %) 90 H Band Neutrophils (0.0 - 5.0 %) 5 Absolute Lymphocytes (1.2 - 3.4 /CUMM) 0.5 L 0.7 L Lymphocytes (20.5 - 51.1 %) 3 L Monocytes (1.7 - 9.3 %) 2 Absolute Monocytes (0.10 - 0.60 /CUMM) 0.2 0.2 Absolute Eosinophils (0.0 - 0.7 /CUMM) 0.1 0.1 Absolute Basophils (0.0 - 0.2 /CUMM) 0 0 Platelet Estimate (ADEQUATE) VERIFIED BY SMEAR Polychromasia 1+ Hypochromic-Microcytic 1+ Poikilocytosis 1+ Anisocytosis 1+ Microcytic Cells 1+ Ovalocytes 1+ [place] Cells 1+ PUBS MCHC (33.0 - 37.0 G/DL) 32.1 L 32.3 L 01/19 01/19 2100 1814 Coagulation APTT Cancelled Hematology CBC w Diff NO MAN DIFF REQ WBC (4.8 - 10.8 /CUMM) 15.4 H RBC (4.70 - 6.10 /CUMM) 2.74 L Hgb (14.0 - 18.0 G/DL) 6.7 *L Hct (42 - 52 %) 21.5 L MCV (80.0 - 94.0 FL) 78.3 L MCH (27.0 - 31.0 PG) 24.5 L RDW (11.5 - 14.5 %) 21.0 H Plt Count (130 - 400 /CUMM) 431 H MPV (7.4 - 10.4 FL) 7.2 L Gran % (42.2 - 75.2 %) 94.2 H Lymphocytes % (20.5 - 51.1 %) 3.2 L Monocytes % (1.7 - 9.3 %) 2.5 Eosinophils % (0 - 5 %) 0.1 Basophils % (0.0 - 2.0 %) 0 L Absolute Granulocytes (1.4 - 6.5 /CUMM) 14.5 H Absolute Lymphocytes (1.2 - 3.4 /CUMM) 0.5 L Absolute Monocytes (0.10 - 0.60 /CUMM) 0.4 Absolute Eosinophils (0.0 - 0.7 /CUMM) 0 Absolute Basophils (0.0 - 0.2 /CUMM) 0 PUBS MCHC (33.0 - 37.0 G/DL) 31.2 L
--- NOTE | 2017-01-22 18:31 | RADIOLOGY REPORT ---
EXAMINATION: XR PORTABLE CHEST CLINICAL INFORMATION: MRSA positive. Follow-up chest. COMPARISON: Chest 01/20/2017. TECHNIQUE: Portable AP view of the chest was obtained. FINDINGS: There is moderate elevation of left hemidiaphragm with minimal left basilar atelectasis. There has been interval improvement in the right lower lobe airspace disease with near complete resolution. Rest of lungs are clear. Heart size is enlarged. Pulmonary vascularity is normal. A right PICC line tip remains in SVC. Median sternotomy sutures are noted from previous intervention. No gross bony abnormality seen. IMPRESSION: Improved right lung base infiltrate. Moderate elevation left hemidiaphragm with underlying atelectasis is stable -2016 exam. No change in the right PICC line.
[2017-01-22 20:46] LABS: PTT 50 SEC (25-37)
[2017-01-22 22:33] VITALS: BP 130/66
[2017-01-23 04:06] LABS: ABSOLUTE BASOPHIL COUNT 0 /CUMM (0.0-0.2); ABSOLUTE EOSINOPHIL COUNT 0.5 /CUMM (0.0-0.7); ABSOLUTE GRANULOCYTE CT 17.7 /CUMM (1.4-6.5); ABSOLUTE LYMPH COUNT 1.4 /CUMM (1.2-3.4); BASOPHIL % 0.1 % (0.0-2.0); EOSINOPHIL % 2.6 % (0-5); GRANULOCYTE % 85.8 % (42.2-75.2); HEMATOCRIT 31.9 % (42-52); MEAN CORPUSCULAR HGB 25.8 PG (27.0-31.0); MEAN CORPUSCULAR VOLUME 80.5 FL (80.0-94.0); MEAN PLATELET VOLUME 7.1 FL (7.4-10.4); PLATELET COUNT 467 /CUMM (130-400); RED BLOOD CELL CT 3.96 /CUMM (4.70-6.10); WHITE BLOOD CELL COUNT 20.6 /CUMM (4.8-10.8)
[2017-01-23 04:13] LABS: PTT 59 SEC (25-37)
[2017-01-23 06:57] VITALS: BP 160/80
--- NOTE | 2017-01-23 09:35 | PN- Att Addend ---
Attending Addendum Attending Brief Note Patient is awake and alert and has minimal complaints. General Appearance: Alert, No Acute Distress Skin: Sacral decubitus with wound VAC HEENT: PEERLA Neck: Supple, No JVD Cardiovascular: Regular Rate, Normal S1, Normal S2, No Murmurs Lungs: Clear to Auscultation, Normal Air Movement Abdomen: Normal Bowel Sounds, Soft, No Tenderness Neurological: Normal Speech, Strength at 5/5 X4 Ext, Cranial Nerves 3-12 NL, Reflexes 2+ Extremities: No Clubbing, No Cyanosis, No Edema Assessment Endoscopy today. Full anticoagulation if cleared by GI. MRSA sputum now on IV vancomycin. Repeat chest x-ray shows improved infiltrates however leukocytosis are worsening. Overall clinically patient appears improved and we will continue vancomycin at this point. Plan Endoscopy Decision about full anticoagulation pending endoscopy Continue IV vancomycin Urology and plastic surgery evaluation as outpatient Continue other meds Current Medications Sig/Mey Start time Last Medication Dose Route Stop Time Status Admin Acetaminophen 1,000 MG Q6P PRN 01/18 0045 AC 01/23 N/A 1 UNIT IV 0343 Albuterol Sulfate 3 ML BID 01/18 1130 AC 01/23 INH 0741 Ampicillin Sodium/ 1,500 MG Q6 01/21 1200 DC 01/22 Sulbactam Sodium IV 1126 Sodium Chloride 100 ML Aspirin 81 MG DAILY 01/18 1000 AC 01/22 PO 1137 Atorvastatin Calcium 10 MG 1700 01/18 1700 AC 01/22 PO 1700 Guaifenesin 10 ML Q6P PRN 01/18 0215 AC 01/21 PO 2351 Heparin Sodium 25,000 UNIT Q24H 01/21 1245 DC 01/23 (Porcine) IV 01/23 0800 0456 Sodium Chloride 500 ML Insulin Aspart 0 TIDAC/HS 01/21 1200 AC SC Ipratropium [place] 2.5 ML BID 01/18 1130 AC 01/23 INH 0741 Levetiracetam 500 MG DAILY 01/20 1000 AC 01/22 PO 1137 Melatonin 5 MG AT BEDTIME 01/18 2200 AC 01/22 PO 2241 Methyl Salicylate 1 HILARIA TID PRN 01/19 1430 AC 01/20 TOP 0617 Oxybutynin Chloride 10 MG TID 01/21 1000 AC 01/22 PO 2241 Oxycodone/ 1 TAB Q4P PRN 01/18 0930 AC 01/22 Acetaminophen PO 2009 Pantoprazole Sodium 40 MG BID 01/20 1145 AC 01/23 IV 0923 Sodium Hypochlorite 1 HILARIA DAILY 01/18 1245 01/23 TOP 0924 Trazodone HCl 25 MG Q12H PRN 01/18 0015 01/22 PO 0008 Vancomycin HCl 1,000 MG Q12 01/22 1158 01/23 Sodium Chloride 250 ML IV 0924 Laboratory Tests 01/23 113 Chemistry Sodium (137 - 145 mmol/L) 138 Potassium (3.5 - 5.1 mmol/L) 4.5 Chloride (98 - 107 mmol/L) 109 H Carbon Dioxide (22 - 30 mmol/L) 24 Anion Gap (5 - 16) 6 BUN (9 - 20 mg/dL) 12 Creatinine (0.7 - 1.2 mg/dL) 0.5 L Estimated GFR (>60 ml/min) > 60 BUN/Creatinine Ratio (7 - 25 %) 24.0 Coagulation APTT (25 - 37 SEC) 59 H 50 H 98 H Hematology CBC w Diff MAN DIFF ORDERED WBC (4.8 - 10.8 /CUMM) 20.6 H RBC (4.70 - 6.10 /CUMM) 3.96 L Hgb (14.0 - 18.0 G/DL) 10.2 L Hct (42 - 52 %) 31.9 L MCV (80.0 - 94.0 FL) 80.5 MCH (27.0 - 31.0 PG) 25.8 L RDW (11.5 - 14.5 %) 20.0 H Plt Count (130 - 400 /CUMM) 467 H MPV (7.4 - 10.4 FL) 7.1 L Gran % (42.2 - 75.2 %) 85.8 H Lymphocytes % (20.5 - 51.1 %) 6.6 L Monocytes % (1.7 - 9.3 %) 4.9 Eosinophils % (0 - 5 %) 2.6 Basophils % (0.0 - 2.0 %) 0.1 Absolute Granulocytes (1.4 - 6.5 /CUMM) 17.7 H Segmented Neutrophils (42.2 - 75.2 %) 77 H Band Neutrophils (0.0 - 5.0 %) 1 Absolute Lymphocytes (1.2 - 3.4 /CUMM) 1.4 Lymphocytes (20.5 - 51.1 %) 11 L Monocytes (1.7 - 9.3 %) 6 Absolute Monocytes (0.10 - 0.60 /CUMM) 1.0 H Eosinophils (0 - 5.0 %) 2 Absolute Eosinophils (0.0 - 0.7 /CUMM) 0.5 Basophils (0.0 - 2.0 %) 1 Absolute Basophils (0.0 - 0.2 /CUMM) 0 Metamyelocytes (0.0 - 1.0 %) 2 H Platelet Estimate (ADEQUATE) INCREASED Polychromasia 1+ Hypochromic-Microcytic 1+ Poikilocytosis 1+ Anisocytosis 1+ Microcytic Cells 1+ Target Cells RARE Ovalocytes 1+ PUBS MCHC (33.0 - 37.0 G/DL) 32.0 L Other Body Source Fld Total RBCs Counted (%) 100 Vital Signs Date Time Temp Pulse Resp B/P Pulse O2 O2 Flow FiO2 Ox Delivery Rate 01/23 0743 92 Nasal 2.0L Cannula 01/23 0657 97.9 90 20 160/80 95 Nasal 2.0L Cannula 01/23 0000 Nasal 2.0L Cannula 01/22 2233 97.9 98 20 130/66 94 Nasal 2.0L Cannula 01/22 1445 98.0 94 20 130/66 95 Room Air 01/22 0943 90 Nasal 2.0L Cannula
--- NOTE | 2017-01-23 10:00 | PN- Housestaff ---
Subjective Follow-up For: # Septic shock on admission, most likely due to pneumonia # Acute blood loss anemia, GI blood loss # Hx of PE # Leaking suprapubic catheter Subjective: Afebrile, WBCs increased to 20, saturating well on 2 L of oxygen, hemodynamically stable. No acute overnight events reported. looks relaxed and comfortable. Denies any current complaint. Pt will go for EGD today. Review of Systems Constitutional: Reports: no symptoms. Objective Last 24 Hrs of Vital Signs/I&O Vital Signs Date Time Temp Pulse Resp B/P Pulse O2 O2 Flow FiO2 Ox Delivery Rate 01/24 800 93 Nasal 2.0L Cannula 01/23 0743 92 Nasal 2.0L Cannula 01/23 0657 97.9 90 20 160/80 95 Nasal 2.0L Cannula 01/23 0000 Nasal 2.0L Cannula 01/22 2233 97.9 98 20 130/66 94 Nasal 2.0L Cannula Intake & Output 01/23 1600 01/23 0800 04 0000 Intake Total 100 279.8 439.6 Output Total 1000 1975 1100 Balance -900 -1695.2 -660.4 Intake, IV 279.8 99.6 Intake, Oral 100 0 340 Number 100 Bowel Movements Output, Stool 300 Output, Urine 1000 1675 1100 Physical Exam General Appearance: Alert, Oriented X3, Cooperative, No Acute Distress Skin: No Rashes HEENT: Atraumatic, PERRLA, EOMI, Mucous Membr. moist/pink Cardiovascular: Regular Rate, Normal S1, Normal S2, No Murmurs Lungs: decrease air entry B/L Abdomen: Soft, No Tenderness Neurological: Normal Speech Extremities: No Edema Current Medications: Current Medications Sig/Mey Start time Last Medication Dose Route Stop Time Status Admin Acetaminophen 1,000 MG .STK-MED ONE 01/23 0337 DC IV 01/23 0338 Acetaminophen 1,000 MG Q6P PRN 01/18 0045 AC 01/23 N/A 1 UNIT IV 0343 Albuterol Sulfate 3 ML BID 01/18 1130 AC 01/23 INH 0741 Aspirin 81 MG DAILY 01/18 1000 AC 01/23 PO 1611 Atorvastatin Calcium 10 MG 1700 01/18 1700 AC 01/23 PO 1612 Benzocaine 1 HILARIA .STK-MED ONE 01/23 1505 DC TOP 01/23 1506 Guaifenesin 10 ML Q6P PRN 01/18 0215 AC 01/21 PO 2351 Heparin Sodium 25,000 UNIT Q24H 01/21 1245 DC 01/23 (Porcine) IV 01/23 0800 0456 Sodium Chloride 500 ML Insulin Aspart 0 TIDAC/HS 01/21 1200 AC SC Ipratropium [place] 2.5 ML BID 01/18 1130 AC 01/23 INH 0741 Levetiracetam 500 MG DAILY 01/20 1000 AC 01/23 PO 1612 Lidocaine 2 HILARIA .STK-MED ONE 01/23 1505 MI TOP 01/23 1506 Melatonin 5 MG AT BEDTIME 01/18 2200 AC 01/22 PO 2241 Methyl Salicylate 1 HILARIA TID PRN 01/19 1430 AC 01/20 TOP 0617 Oxybutynin Chloride 10 MG TID 01/21 1000 AC 01/23 PO 1611 Oxycodone/ 1 TAB Q4P PRN 01/18 0930 AC 01/23 Acetaminophen PO 1029 Pantoprazole Sodium 40 MG BID 01/20 1145 01/23 IV 0923 Patient Medication 1 ED ONE ONE 01/23 1330 MI 01/23 Teaching ED 01/23 1331 1612 Rivaroxaban 20 MG DAILY 01/23 1630 AC PO Sodium Hypochlorite 1 HILARIA DAILY 01/18 1245 01/23 TOP 0924 Trazodone HCl 25 MG Q12H PRN 01/18 0015 AC 01/22 PO 0008 Vancomycin HCl 1,000 MG Q12 01/22 1158 AC 01/23 Sodium Chloride 250 ML IV 0924 Last 24 Hrs of Lab/Perfecto Results Last 24 Hrs of Labs/Mics: Laboratory Tests 01/23/17 1045: APTT 33 01/23/17 0320: Anion Gap 6, Estimated GFR > 60, BUN/Creatinine Ratio 24.0, APTT 59 H, CBC w Diff MAN DIFF ORDERED, RBC 3.96 L, MCV 80.5, MCH 25.8 L, RDW 20.0 H, MPV 7.1 L, Gran % 85.8 H, Lymphocytes % 6.6 L, Monocytes % 4.9, Eosinophils % 2.6, Basophils % 0.1, Absolute Granulocytes 17.7 H, Segmented Neutrophils 77 H, Band Neutrophils 1, Absolute Lymphocytes 1.4, Lymphocytes 11 L, Monocytes 6, Absolute Monocytes 1.0 H, Eosinophils 2, Absolute Eosinophils 0.5, Basophils 1, Absolute Basophils 0, Metamyelocytes 2 H, Platelet Estimate INCREASED, Polychromasia 1+, Hypochromic-Microcytic 1+, Poikilocytosis 1+, Anisocytosis 1+, Microcytic Cells 1+, Target Cells RARE, Ovalocytes 1+, PUBS MCHC 32.0 L, Fld Total RBCs Counted 100 01/22/172008: APTT 50 H Assessment/Plan Assessment: # Septic shock on admission, most likely 2/2 pneumonia Sputum culture from January 19 came back positive for MRSA. his WBCs increased to 20 today. * cont' vancomycin * We will follow any further ID recommendation #Decubitus ulcer * Dr. Jung, plastic surgery is on board # Leaking suprapubic catheter Spoke to Dr. Koch on 01/21/17 who stated that the catheter was replaced in the office 2 weeks prior, she is aware of the leakage and does not need to see the patient, and recommends continuing oxybutinin 10 tid. # Acute blood loss anemia, GI blood loss H&H is stable post blood transfusion. EGD earlier today shows Fundic ulcer and Fundic submucosal lesion. * GI is OK with continuing aspirin * We will continue PPI * GI ok with starting pt back on Xarelto * Repeat EGD in approximately 2 months to assess for healing # Hx of PE * Stop IV heparin and start Xarelto as patient was cleared by GI * We will watch for any signs or symptoms of GI bleed # DM * Accucheck, novolog tidac/qhs Diet: Diabetic dite DVT ppx: ALPS , Xarelto FULL CODE Problem List: 1. Septic shock Pain Ratin Pain Location: na Pain Goal: Remain pain free Pain Plan: see A&P Tomorrow's Labs & Rationales: cbc and bep
--- NOTE | 2017-01-23 10:00 | PN- Pulmonary ---
Subjective HPI/Critical Care Issues: Doing well afebrile Pending endoscopy no active bleeding On vanco Objective Current Medications: Current Medications Sig/Mey Start time Last Medication Dose Route Stop Time Status Admin Acetaminophen 1,000 MG Q6P PRN 01/18 0045 01/23 N/A 1 UNIT IV 0343 Albuterol Sulfate 3 ML BID 01/18 1130 AC 01/23 INH 0741 Ampicillin Sodium/ 1,500 MG Q6 01/21 1200 DC 01/22 Sulbactam Sodium IV 1126 Sodium Chloride 100 ML Aspirin 81 MG DAILY 01/18 1000 AC 01/22 PO 1137 Atorvastatin Calcium 10 MG 1700 01/18 1700 AC 01/22 PO 1700 Guaifenesin 10 ML Q6P PRN 01/18 0215 AC 01/21 PO 2351 Heparin Sodium 25,000 UNIT Q24H 01/21 1245 DC 01/23 (Porcine) IV 01/23 0800 0456 Sodium Chloride 500 ML Insulin Aspart 0 TIDAC/HS 01/21 1200 AC SC Ipratropium [place] 2.5 ML BID 01/18 1130 AC 01/23 INH 0741 Levetiracetam 500 MG DAILY 01/20 1000 AC 01/22 PO 1137 Melatonin 5 MG AT BEDTIME 01/18 2200 AC 01/22 PO 2241 Methyl Salicylate 1 HILARIA TID PRN 01/19 1430 AC 01/20 TOP 0617 Oxybutynin Chloride 10 MG TID 01/21 1000 AC 01/22 PO 2241 Oxycodone/ 1 TAB Q4P PRN 01/18 0930 AC 01/22 Acetaminophen PO 2009 Pantoprazole Sodium 40 MG BID 01/20 1145 AC 01/23 IV 0923 Sodium Hypochlorite 1 HILARIA DAILY 01/18 1245 AC 01/23 TOP 0924 Trazodone HCl 25 MG Q12H PRN 01/18 0015 AC 01/22 PO 0008 Vancomycin HCl 1,000 MG Q12 01/22 1158 AC 01/23 Sodium Chloride 250 ML IV 0924 Vital Signs & I&O Last 24 Hrs of Vitals and I&O: Vital Signs Date Time Temp Pulse Resp B/P Pulse O2 O2 Flow FiO2 Ox Delivery Rate 01/23 0743 92 Nasal 2.0L Cannula 01/23 0657 97.9 90 20 160/80 95 Nasal 2.0L Cannula 04/05 0000 Nasal 2.0L Cannula 01/22 2233 97.9 98 20 130/66 94 Nasal 2.0L Cannula 01/22 1445 98.0 94 20 130/66 95 Room Air Intake & Output 01/23 1600 01/23 0800 01/23 0000 Intake Total 279.8 439.6 Output Total 1974 1100 Balance -1695.2 -660.4 Intake, IV 279.8 99.6 Intake, Oral 0 340 Output, Stool 300 Output, Urine 1675 1100 Impression/Plan Impression/Plan Impression/Plan: IMPRESSION This is a 71-year-old gentleman with previous history of spinal stroke after abdominal aortic aneurysm repair leading to paraplegia, indwelling [place] with suprapubic catheter, nonhealing decubiti ulcer, multiple antibiotics for polymicrobial sacral osteomyelitis now, previous diversion colostomy, diabetes, hypertension, hyperlipidemia, coronary artery disease, hypertension, GERD, anxiety and depression, recent bilateral pulmonary embolism, was on Xeralto now comes in with Resolved Septic shock most likely related to polymicrobial sepsis from the sacral decubiti. CT suggest bibasilar infiltrates prob pna with staph in the sputum, now growing MRSA Previous bilateral pulmonary embolism now was on adequate anticoagulation unlikely that he has ongoing venous thromboembolism Diabetes, hypertension, hyperlipidemia, anxiety and depression stable Acute on chronic renal insufficiency now creatinine returning back to normal Paraplegia Probable malignancy in the kidney as noted in the previous CT Previous thrombocytosis may be related to his underlying pathophysiology which needs to be followed Anemia with work up ongoing RECOMMENDATION Endoscopy today and will decide on Novel anticoag after Antibiotics per infectious disease,Cont vanco. Will follow prn Will rpt cxr in am Check C BC daily
[2017-01-23 11:43] LABS: PTT 33 SEC (25-37)
--- NOTE | 2017-01-23 14:06 | Proc Note Endoscopy ---
Endoscopy Procedure Medical History: unchanged (in inpatient records) Mental Status: alert/oriented Heart/Lung Eval Prior to Sedation: heart regular, decreased breath sounds Candidate for Sedation? Yes Procedure Date: 01/23/17 Procedure Type: EGD [facility] Coordinator: Ramakrishna Dalal M.D. ASA Classification: III Indications: GI bleed Anemia Instrument: diagnostic gastroscope Meds Received: MAC (O2 via mask) Patient's Tolerance: good Complications: none Extent Reached: transverse duodenum Procedure: The patient signed informed consent, and was medicated. [place] pharyngeal spray was administered. Pulse oximetry, blood pressure and cardiac monitoring were performed continuously throughout the procedure. The Olympus high- definition gastroscope was inserted into the mouth and advanced to the duodenum. Retroflexion was performed within the stomach to examine the cardia. Careful examination was performed. Findings: The esophagus had normal caliber and contour. The mucosa was intact throughout. There were no varices. The GE junction was normal. There was no evident hiatal hernia. The stomach had normal distention and active peristalsis. There was no blood, old or fresh, within the gastric cavity. The cardia was normal. Greater curvature the fundus was a 2 cm x 1 cm oval ulceration with clean base, and normal edges. It was left intact. On the contralateral wall of the fundus was a 1.2 cm submucosal impression consistent with submucosal lesion, with smooth/ normal overlying mucosa. The mucosa and folds of the stomach were otherwise normal. The pyloric channel was normal. The duodenal bulb was normal without erosion, ulceration or deformity. Mucosa and folds of the second and third portions of the duodenum were normal. Impression: * Fundic ulcer * Fundic submucosal lesion Recommendations: * Careful anticoagulation with monitoring for recurrent GI bleeding; may start oral anticoagulant * PPI daily * Repeat EGD in approximately 2 months to assess for healing CC: KELSEY MULLIGAN,SLIM Avalos
--- NOTE | 2017-01-23 16:18 | PN- Infect Dx ---
Subjective Subjective: Afebrile without complaints. Objective Last 24 Hrs of Vital Signs/I&O Vital Signs Date Time Temp Pulse Resp B/P Pulse O2 O2 Flow FiO2 Ox Delivery Rate 01/24 800 93 Nasal 2.0L Cannula 01/23 07 92 Nasal 2.0L Cannula 01/23 06 97.9 90 20 160/80 95 Nasal 2.0L Cannula 01/23 0000 Nasal 2.0L Cannula 01/223 97.9 98 20 130/66 94 Nasal 2.0L Cannula Intake & Output 01/23 1600 01/23 0801/23 0000 Intake Total 100 279.8 439.6 Output Total 1000 1975 1100 Balance -900 -1695.2 -660.4 Intake, IV 279.8 99.6 Intake, Oral 100 0 340 Number 100 Bowel Movements Output, Stool 300 Output, Urine 1000 1675 1100 Physical Exam Other Physical Findings: He appears comfortable in no acute distress Lungs decreased breath sounds bilaterally Heart regular rhythm with no murmur Abdomen is soft, nontender with positive bowel sounds Extremities PICC in the right upper extremity with no inflammation at the site Results Last 24 Hours of Lab Results: Laboratory Tests 01/23 01/23 01/22 1045 0320 2008 Chemistry Sodium (137 - 145 mmol/L) 138 Potassium (3.5 - 5.1 mmol/L) 4.5 Chloride (98 - 107 mmol/L) 109 H Carbon Dioxide (22 - 30 mmol/L) 24 Anion Gap (5 - 16) 6 BUN (9 - 20 mg/dL) 12 Creatinine (0.7 - 1.2 mg/dL) 0.5 L Estimated GFR (>60 ml/min) > 60 BUN/Creatinine Ratio (7 - 25 %) 24.0 Coagulation APTT (25 - 37 SEC) 33 59 H 50 H Hematology CBC w Diff MAN DIFF ORDERED WBC (4.8 - 10.8 /CUMM) 20.6 H RBC (4.70 - 6.10 /CUMM) 3.96 L Hgb (14.0 - 18.0 G/DL) 10.2 L Hct (42 - 52 %) 31.9 L MCV (80.0 - 94.0 FL) 80.5 MCH (27.0 - 31.0 PG) 25.8 L RDW (11.5 - 14.5 %) 20.0 H Plt Count (130 - 400 /CUMM) 467 H MPV (7.4 - 10.4 FL) 7.1 L Gran % (42.2 - 75.2 %) 85.8 H Lymphocytes % (20.5 - 51.1 %) 6.6 L Monocytes % (1.7 - 9.3 %) 4.9 Eosinophils % (0 - 5 %) 2.6 Basophils % (0.0 - 2.0 %) 0.1 Absolute Granulocytes (1.4 - 6.5 /CUMM) 17.7 H Segmented Neutrophils (42.2 - 75.2 %) 77 H Band Neutrophils (0.0 - 5.0 %) 1 Absolute Lymphocytes (1.2 - 3.4 /CUMM) 1.4 Lymphocytes (20.5 - 51.1 %) 11 L Monocytes (1.7 - 9.3 %) 6 Absolute Monocytes (0.10 - 0.60 /CUMM) 1.0 H Eosinophils (0 - 5.0 %) 2 Absolute Eosinophils (0.0 - 0.7 /CUMM) 0.5 Basophils (0.0 - 2.0 %) 1 Absolute Basophils (0.0 - 0.2 /CUMM) 0 Metamyelocytes (0.0 - 1.0 %) 2 H Platelet Estimate (ADEQUATE) INCREASED Polychromasia 1+ Hypochromic-Microcytic 1+ Poikilocytosis 1+ Anisocytosis 1+ Microcytic Cells 1+ Target Cells RARE Ovalocytes 1+ PUBS MCHC (33.0 - 37.0 G/DL) 32.0 L Other Body Source Fld Total RBCs Counted (%) 100 Last 24 Hours of Perfecto Results: Sputum culture January 22 positive for Staph aureus Recent Imaging Studies: Chest x-ray January 22, personally reviewed, reveals an improved right lung base infiltrate Assessment/Plan Impression: Stable status post upper endoscopy earlier today, with an ulcer identified in the fundus. He remains afebrile but his white blood cell count has increased today, possibly secondary to stress from his recent GI bleed or pneumonia, now on Vancomycin for MRSA isolated from the sputum, though the significance of this remains unclear with his respiratory status stable and chest x-ray improved. Suggestion: 1. Further management of his sacral decubitus per Plastic surgery 2. Further management of his urinary leakage per Urology 3. Continue Vancomycin
[2017-01-23 22:46] VITALS: BP 154/82
[2017-01-24 06:38] VITALS: BP 163/72
--- NOTE | 2017-01-24 07:34 | PN- Housestaff ---
Subjective Follow-up For: # Septic shock on admission, most likely due to pneumonia # Acute blood loss anemia, GI blood loss # Hx of PE # Leaking suprapubic catheter Subjective: Afebrile, WBCs decreased to 16 this a.m., saturating well on 2 L of oxygen, hemodynamically stable. No acute overnight events reported. looks relaxed and comfortable. Denies any current complaint. Patient tolerated diet well. Review of Systems Constitutional: Reports: no symptoms. Objective Last 24 Hrs of Vital Signs/I&O Vital Signs Date Time Temp Pulse Resp B/P Pulse O2 O2 Flow FiO2 Ox Delivery Rate 01/24 638 98.1 80 20 163/72 96 Nasal 2.0L Cannula 01/24 0000 95 Nasal 2.0L Cannula 01/23 2246 97.8 88 20 154/82 95 Nasal 2.0L Cannula 01/23 1850 96 Nasal 3.0L Cannula 01/23 1600 93 Nasal 3.0L Cannula Intake & Output 01/24 1600 01/24 0800 01/24 0000 Intake Total 240 1010 Output Total 1100 200 Balance -860 810 Intake, IV 270 Intake, Oral 240 740 Output, Stool 200 200 Output, Urine 900 Physical Exam General Appearance: Alert, Oriented X3, Cooperative, No Acute Distress Skin: No Rashes HEENT: Atraumatic, PERRLA, EOMI, Mucous Membr. moist/pink Cardiovascular: Regular Rate, Normal S1, Normal S2, No Murmurs Lungs: Clear to Auscultation, Normal Air Movement Abdomen: Soft, No Tenderness Neurological: Normal Speech Extremities: b/l LE trace edema Current Medications: Current Medications Sig/Mey Start time Last Medication Dose Route Stop Time Status Admin Acetaminophen 1,000 MG .STK-MED ONE 01/23 2347 DC IV 01/23 2348 Acetaminophen 1,000 MG Q6P PRN 01/18 0045 AC 01/23 N/A 1 UNIT IV 2353 Albuterol Sulfate 3 ML BID 01/18 1130 AC 01/24 INH 0903 Aspirin 81 MG DAILY 01/18 1000 AC 01/24 PO 0952 Atorvastatin Calcium 10 MG 1700 01/18 1700 AC 01/23 PO 1612 Benzocaine 1 HILARIA .STK-MED ONE 01/23 1505 DC TOP 01/23 1506 Guaifenesin 10 ML .STK-MED ONE 01/23 2042 DC PO 04/05 2043 Guaifenesin 10 ML Q6P PRN 01/18 0215 AC 01/24 PO 0646 Insulin Aspart 0 TIDAC/HS 01/21 1200 AC SC Ipratropium [place] 2.5 ML BID 01/18 1130 AC 01/24 INH 0903 Levetiracetam 500 MG DAILY 01/20 1000 AC 01/24 PO 0953 Lidocaine 2 HILARIA .STK-MED ONE 01/23 1505 DC TOP 01/23 1506 Melatonin 5 MG AT BEDTIME 01/18 2200 AC 01/23 PO 2107 Methyl Salicylate 1 HILARIA TID PRN 01/19 1430 AC 01/20 TOP 0617 Oxybutynin Chloride 10 MG TID 01/21 1000 AC 01/24 PO 0952 Oxycodone/ 1 TAB Q4P PRN 01/18 0930 AC 01/24 Acetaminophen PO 1014 Pantoprazole Sodium 40 MG BID 01/20 1145 AC 01/24 IV 0952 Patient Medication 1 ED ONE ONE 01/23 1330 DC 01/23 Teaching ED 01/23 1331 1612 Rivaroxaban 20 MG DAILY 01/23 1630 AC 01/23 PO 1758 Sodium Hypochlorite 1 HILARIA DAILY 01/18 1245 AC 01/24 TOP 0953 Trazodone HCl 25 MG Q12H PRN 01/18 0015 AC 01/22 PO 0008 Vancomycin HCl 1,000 MG Q12 01/22 1158 AC 01/24 Sodium Chloride 250 ML IV 0951 Last 24 Hrs of Lab/Perfecto Results Last 24 Hrs of Labs/Mics: Laboratory Tests 01/24/17 0640: CBC w Diff NO MAN DIFF REQ, RBC 3.73 L, MCV 80.6, MCH 25.7 L, RDW 19.9 H, MPV 7.0 L, Gran % 83.2 H, Lymphocytes % 7.6 L, Monocytes % 6.6, Eosinophils % 2.5 , Basophils % 0.1, Absolute Granulocytes 13.8 H, Absolute Lymphocytes 1.3, Absolute Monocytes 1.1 H, Absolute Eosinophils 0.4, Absolute Basophils 0, PUBS MCHC 31.9 L Assessment/Plan Assessment: # Septic shock on admission, most likely 2/2 pneumonia Sputum culture from January 19 came back positive for MRSA. his WBCs decreased from 20 to 16 today. * cont' vancomycin waiting for further ID recommendations #Decubitus ulcer * Dr. Jung, plastic surgery is on board * Most likely will need to follow with plastic surgery as an outpatient # Leaking suprapubic catheter Spoke to Dr. Koch on 01/21/17 who stated that the catheter was replaced in the office 2 weeks prior, she is aware of the leakage and does not need to see the patient, and recommends continuing oxybutinin 10 tid. # Acute blood loss anemia, GI blood loss H&H is stable post blood transfusion. EGD yesterday shows Fundic ulcer and Fundic submucosal lesion. * GI is OK with continuing aspirin * We will continue PPI * As per GI we will continue Xarelto watch for any symptom or sign of bleeding * Repeat EGD in approximately 2 months to assess for healing # Hx of PE * Continue Xarelto 20 mg daily as patient was cleared by GI * We will watch for any signs or symptoms of GI bleed # DM * Accucheck, novolog tidac/qhs Diet: Diabetic dite DVT ppx: ALPS , Xarelto FULL CODE Problem List: 1. Septic shock Pain Ratin Pain Location: na Pain Goal: Remain pain free Pain Plan: See assessment and plan Tomorrow's Labs & Rationales: CBC
--- NOTE | 2017-01-24 08:10 | Discharge Summary ---
See Addendum Visit Information Visit Dates Admission Date: 01/17/17 Discharge Date: 01/29/17 Hospital Course Course Attending Physician: KELSEY MULLIGAN,SLIM Avalos Primary Care Physician: SLIM COLE MD Consulting Request: Consulting Specialty: Infectious Disease Hospital Course: Patient stayed in ICU from January 17 still January 21 and was transferred to general medical floor and was taken care by Gen. medical team till discharge. Patient was found to be in acute hypoxic respiratory failure on admission. 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 Came in with BP of 58/32 and pulse rate of 150, given fluid boluses, and required pressor support with levophed in the ICU. White count was 29k with bands. Lactic acid 3.6. K 6.2, Na 134, cr 1.3 (baseline 0.8). Source of sepsis most likely pneumonia (aspiration vs healthcare acquired, + cough, difficulty bringing up sputum, sputum grew yeast and staph aureus, imaging showed atelectasis vs pna), other differentials incude: abdominal process (keep in mind his UC from few weeks prior to admission grew pseudomonas which implies gut colonization as well, resistant to ceftaz and zosyn), urinary tract infection (chronic suprapubic catheter-leaking), c diff (significant abx exposure, loose stool, but c diff negative), ischemic colitis (hypotension, blood noted in the colostomy bag), stage 4 decubitus ulcer with wound vac draining serosanguinous fluid (has necrotic edges, but otherwise no obvious purulent drainage, surgery does not think need debridement), pancreatitis ( elevated amylase, lipase normal), biliary process (tender RUQ, had cholecystectomy). Patient received IV unasyn and ceftazidime on day #1, subsequently changed to mepenem on 01/18/17 (day2), continued till 01/21/17. His BP and leukocytosis improved on this. He is now off pressors. He was switched to unasyn on 01/21/17. Patient grew MRSA in his sputum and was started on vancomycin on January 22.Due to persistent leukocytosis c.diff was sent that was negative and repeat with PCR came back positive will need vancomycin oral for 10-14 days. iv vancomycin was discontinued on starting oral as there was no evidence of pneumonia. Femoral central line was placed in the ED for vasopressor, subsequently PICC line placed on 01/18/17, and he was started on heparin drip given hx of PE. Femoral line was removed on 01/18/17 pm, with significant bleed causing a drop in hb from 7.6 to 6.7. In addition to that, he started having loose guaiac positive stool in the colostomy bag (which was tested and negative for c diff). Heparin drip has been held. GI was consulted, and no urgent endoscopy was pursued. He was transfused 3 units of PRBC , with hb at 9.4. Heparin drip resumed without bolus on 01/21/17. Endoscopy was done on January 23 and was found fundic ulcer and fundic submucosal lesion and was instructed by gas station cashier that patient can be started on oral anticoagulation with careful monitoring for the current GI bleed, daily proton pump inhibitors and repeat EGD has to be done approximately in 2 months to assess for healing. Wound vac was removed on 01/18/17, and would need to be replaced. Patient needs to be followed up by plastic surgery as outpatient. Patient was seen by gastroenterology, pulmonology and infectious disease during his hospital stay Complications: None Allergies: Coded Allergies: ibuprofen (UNKNOWN 01/18/17) Significant Procedures: Endoscopy Procedure Medical History: unchanged (in inpatient records) Mental Status: alert/oriented Heart/Lung Eval Prior to Sedation: heart regular, decreased breath sounds Candidate for Sedation? Yes Procedure Date: 01/23/17 Procedure Type: EGD Patch Worker: Ramakrishna Dalal M.D. ASA Classification: III Indications: GI bleed Anemia Instrument: diagnostic gastroscope Meds Received: MAC (O2 via mask) Patient's Tolerance: good Complications: none Extent Reached: transverse duodenum Procedure: The patient signed informed consent, and was medicated. Hurricane pharyngeal spray was administered. Pulse oximetry, blood pressure and cardiac monitoring were performed continuously throughout the procedure. The Olympus high- definition gastroscope was inserted into the mouth and advanced to the duodenum. Retroflexion was performed within the stomach to examine the cardia. Careful examination was performed. Findings: The esophagus had normal caliber and contour. The mucosa was intact throughout. There were no varices. The GE junction was normal. There was no evident hiatal hernia. The stomach had normal distention and active peristalsis. There was no blood, old or fresh, within the gastric cavity. The cardia was normal. Greater curvature the fundus was a 2 cm x 1 cm oval ulceration with clean base, and normal edges. It was left intact. On the contralateral wall of the fundus was a 1.2 cm submucosal impression consistent with submucosal lesion, with smooth/ normal overlying mucosa. The mucosa and folds of the stomach were otherwise normal. The pyloric channel was normal. The duodenal bulb was normal without erosion, ulceration or deformity. Mucosa and folds of the second and third portions of the duodenum were normal. Impression: * Fundic ulcer * Fundic submucosal lesion Recommendations: * Careful anticoagulation with monitoring for recurrent GI bleeding; may start oral anticoagulant * PPI daily * Repeat EGD in approximately 2 months to assess for healing CC: KELSEY MULLIGAN,SLIM Avalos Disposition Summary Disposition Principal Diagnosis: Sepsis most likely MRSA pneumonia Additional Diagnosis: Anemia Discharge Disposition: SNF Discharge Instructions General Discharge Information Code Status: Full Code Patient's Diet: Heart healthy diet Patient's Activity: Patient is paraplegic Follow-Up Instructions/Appts: Please follow-up with your primary care physician in one week of discharge Follow-up with plastic surgery for sacral decubitus ulcer Medications at Discharge Discharge Medications: Stop taking the following medications: Albuterol Sulfate (Albuterol Sulfate) 2.5 MG/3 ML (0.083 %) VIAL.NEB Inhale Solution EVERY 4 HOURS NEEDED Continue taking these medications: Aspirin (Ecotrin*) 81 MG TABLET. 1 Tablet ORAL DAILY Comments: Last Taken:12/27/16 Time:1000 Oxycodone HCl (Oxycodone HCl) 10 MG TABLET 1 Tablet ORAL Q8H Comments: Last Taken:12/27/16 Time:0600 Benazepril HCl (Benazepril HCl) 10 MG TABLET 1 Tablet ORAL DAILY Comments: Last Taken:12/27/16 Time:1000 LISINOPRIL Ergocalciferol (Vitamin D2) (Vitamin D2) 50,000 UNIT CAPSULE 1 Capsule ORAL ONCE A MONTH Comments: PER MAR EVERY MONTH ON Mirtazapine (Mirtazapine) 15 MG TABLET 0.5 Tablet ORAL TAKE AT BEDTIME Comments: Last Taken:12/26/16 Time:2200 Atorvastatin Calcium (Lipitor) 10 MG TABLET 1 Tablet ORAL DAILY Comments: Last Taken:12/27/16 Time:1000 Ipratropium/Albuterol Sulfate (Iprat-Albut 0.5-3(2.5) MG/3 Ml) 0.5 MG-3 MG (2.5 MG BASE)/3 ML AMPUL.NEB 1 VIAL Inhale through mouth THREE TIMES DAILY Comments: Last Taken:12/27/16 Time:1000 Levetiracetam (Keppra) 500 MG TABLET 1 Tablet ORAL Every Morning Comments: Last Taken:12/27/16 Time:1000 Furosemide (Lasix) 20 MG TABLET 1 Tablet ORAL Every other day Comments: Last Taken:12/27/16 Time:1000 Omeprazole (Omeprazole) 20 MG CAPSULE. 1 Capsule ORAL DAILY Comments: Last Taken:12/27/16 Time:0700 Baclofen (Baclofen) 10 MG TABLET 1 Tablet ORAL DAILY Comments: Last Taken:12/27/16 Time:1000 Multivitamin (Multi-Day Vitamins) 1 EACH TABLET 1 Tablet ORAL DAILY Comments: Last Taken:12/27/16 Time:1000 [place]-3/Dha/Epa/Fish Oil (Fish Oil 1,000 MG Softgel) 1,000 MG (120 MG-180 MG) CAPSULE 1 Capsule ORAL DAILY Saccharomyces Boulardii (Florastor) 250 MG CAPSULE 1 Tablet ORAL TAKE AT BEDTIME Metformin HCl (Metformin HCl) 500 MG TABLET 1 Tablet ORAL TWICE DAILY Mometasone/Formoterol (Dulera 100 Mcg/5 Mcg Inhaler) 100 MCG-5 MCG/ACTUATION HFA.AER.AD 2 Puff Inhale through mouth TWICE DAILY Comments: Last Taken:12/27/16 Time:1000 Amino Acids/Protein Hydrolys (Pro-Stat Sugar Free Liquid) (Unknown Strength) LIQUID 30 Milliliters ORAL TWICE DAILY Comments: PER DEC Cyanocobalamin (Vitamin B-12) (Vitamin B-12) 100 MCG TABLET 1 Tablet ORAL DAILY Comments: Last Taken:12/27/16 Time:1000 Psyllium Husk (Metamucil) (Unknown Strength) CAPSULE 1 Capsule ORAL DAILY Comments: Last Taken:12/27/16 Time:1000 Potassium Chloride (Potassium Chloride) 20 MEQ TAB.ER.PRT 1 Tablet ORAL Every night Melatonin (Melatonin) 5 MG TABLET 1 Tablet ORAL TAKE AT BEDTIME Comments: Last Taken:12/26/16 Time:2200 Bisacodyl (Bisacodyl) 10 MG SUPP.RECT 1 Suppository RECTAL as needed for CONSTIPATION Comments: PER DEC IF MOM INEFFECTIVE Na Phos,M-B/Na Phos,Di-Ba (Fleet Enema) 19 GRAM-7 GRAM/118 ML ENEMA 1 Enema RECTAL DAILY as needed for CONSTIPATION Comments: PER DEC IF BISACODYL SUPP INEFFECTIVE Acetaminophen (Q-Pap) 325 MG TABLET 2 Tablet ORAL Q4H as needed for PAIN/TEMP>/100 Comments: PER DEC NTE 3GM APAP/24H Magnesium Hydroxide (Milk Of Magnesia) 400 MG/5 ML ORAL.SUSP 30 Milliliters ORAL DAILY as needed for CONSTIPATION Comments: PER DEC Trazodone HCl (Trazodone HCl) 50 MG TABLET 0.5 Tablet ORAL Q12H as needed for UNKNOWN Comments: PER DEC Lisinopril (Zestril) 10 MG TABLET 1 Tablet ORAL DAILY Tolterodine Tartrate (Detrol LA) 4 MG CAP.ER.24H 1 Capsule ORAL DAILY Ondansetron HCl (Zofran) 4 MG TABLET 1 Tablet ORAL Q8H as needed for N/V Acetaminophen (Acephen) 650 MG SUPP.RECT 1 SUPPOSITORY RECTALLY Q4H as needed for PAIN/TEMP>100 Rivaroxaban (Xarelto) 20 MG TABLET 1 Tablet ORAL DAILY Qty = 30 This prescription has been renewed Start taking the following new medications: Vancomycin HCl (Vancomycin HCl) 900 MCG/MG (NOT LESS THAN, HALF-WAY) POWDER 125 Milligram ORAL EVERY SIX HOURS Days = 8 No Refills Copies To: SLIM COLE MD, MD Review Statement Documenting Attending: SLIM COLE MD
[2017-01-24 08:15] LABS: ABSOLUTE BASOPHIL COUNT 0 /CUMM (0.0-0.2); ABSOLUTE EOSINOPHIL COUNT 0.4 /CUMM (0.0-0.7); ABSOLUTE GRANULOCYTE CT 13.8 /CUMM (1.4-6.5); ABSOLUTE LYMPH COUNT 1.3 /CUMM (1.2-3.4); ABSOLUTE MONOCYTE COUNT 1.1 /CUMM (0.10-0.60); BASOPHIL % 0.1 % (0.0-2.0); EOSINOPHIL % 2.5 % (0-5); MEAN CORPUSCULAR HGB 25.7 PG (27.0-31.0); MEAN CORPUSCULAR HGB CONC 31.9 G/DL (33.0-37.0); MEAN CORPUSCULAR VOLUME 80.6 FL (80.0-94.0); PLATELET COUNT 469 /CUMM (130-400); RBC DISTRIBUTION WIDTH 19.9 % (11.5-14.5); RED BLOOD CELL CT 3.73 /CUMM (4.70-6.10); WHITE BLOOD CELL COUNT 16.6 /CUMM (4.8-10.8)
[2017-01-24 09:12] LABS: GRANULOCYTE % 83.2 % (42.2-75.2)
--- NOTE | 2017-01-24 09:17 | RADIOLOGY REPORT ---
EXAMINATION: XR PORTABLE CHEST CLINICAL INFORMATION: Pneumonia COMPARISON: 01/22/2017 TECHNIQUE: Portable AP view of the chest was obtained. FINDINGS: Catheter in superior vena cava. There is no pneumothorax. Living right base consistent with some clearing atelectasis or infiltrate. Persistent mild atelectasis left base. No failure. IMPRESSION: Improving right base. Persistent mild atelectasis left base
--- NOTE | 2017-01-24 09:40 | Patient Discharge Instructions ---
Discharge Instructions General Discharge Information You were seen/treated for: LUNG INFECTION Special Instructions: PLEASE FOLLOW UP WITH PCP WITHIN ONE WEEK PLEASE FOLLOW UP WITH GI DOCTOR WITHIN ONE WEEK. REPEAT EGD IN APPROXIMATELY 2 MONTHS TO ASSESS FOR HEALING PLEASE TAKE THE MEDICATIOIN EXACTLY GIVEN. Diet Continue normal diet: Yes Recommended Diet: Regular Activity Full Activity/No Limits: Yes Activity Self Limited: Yes Acute Coronary Syndrome Inclusion Criteria At DC or during hospital stay patient has or had the following: ACS DIAGNOSIS No Discharge Core Measures Meds if any: Prescribed or Continued at Discharge Meds if any: NOT Prescribed or Continued at Discharge Congestive Heart Failure Inclusion Criteria At DC or during hospital stay patient has or had the following: CHF DIAGNOSIS No Discharge Core Measures Meds if any: Prescribed or Continued at Discharge Meds if any: NOT Prescribed or Continued at Discharge Cerebrovascular accident Inclusion Criteria At DC or during hospital stay patient has or had the following: CVA/TIA Diagnosis No Discharge Core Measures Meds if any: Prescribed or Continued at Discharge Meds if any: NOT Prescribed or Continued at Discharge Venous thromboembolism Inclusion Criteria VTE Diagnosis No VTE Type NONE VTE Confirmed by (Test) NONE Discharge Core Measures - Per Current guidelines, there needs to be overlap - treatment for the first 5 days of Warfarin therapy. - If discharged on Warfarin prior to 5 days of - overlap therapy, the patient will need to be - assessed for post discharge needs including - *Post discharge parental anticoagulation - *Warfarin and/or parental anticoagulation education - *Follow up date to check INR post discharge At least 5 days overlap therapy as Inpatient No Meds if any: Prescribed or Continued at Discharge Note: Overlap Therapy is Warfarin and Anticoagulant Meds if any: NOT Prescribed or Continued at Discharge
[2017-01-24] MEDS ORDERED: XARELTO20 M2 PO (09:55)
--- NOTE | 2017-01-24 10:14 | PN- Att Addend ---
Attending Addendum Attending Brief Note Patient is awake and alert and has minimal complaints. General Appearance: Alert, No Acute Distress Skin: Sacral decubitus with wound VAC HEENT: PEERLA Neck: Supple, No JVD Cardiovascular: Regular Rate, Normal S1, Normal S2, No Murmurs Lungs: Clear to Auscultation, Normal Air Movement Abdomen: Normal Bowel Sounds, Soft, No Tenderness Neurological: Normal Speech, Strength at 5/5 X4 Ext, Cranial Nerves 3-12 NL, Reflexes 2+ Extremities: No Clubbing, No Cyanosis, No Edema Assessment Endoscopy demonstrated fundic ulcer without active bleed. Full anticoagulation cleared by GI. He will need a repeat endoscopy in 2 months. MRSA sputum now on IV vancomycin. Repeat chest x-ray shows improved infiltrates however leukocytosis are worsening. Overall clinically patient appears improved and we will continue vancomycin. Plan Continue IV vancomycin per ID recommendation. Repeat endoscopy in 2 months Continue PPI Resume xarelto Urology and plastic surgery evaluation as outpatient Continue other meds Current Medications Sig/Mey Start time Last Medication Dose Route Stop Time Status Admin Acetaminophen 1,000 MG .STK-MED ONE 01/23 2347 DC IV 01/23 2348 Acetaminophen 1,000 MG Q6P PRN 01/18 0045 AC 01/23 N/A 1 UNIT IV 2353 Albuterol Sulfate 3 ML BID 01/18 1130 AC 01/24 INH 0903 Aspirin 81 MG DAILY 01/18 1000 AC 01/24 PO 0952 Atorvastatin Calcium 10 MG 1700 01/18 1700 AC 01/23 PO 1612 Benzocaine 1 HILARIA .STK-MED ONE 01/23 1505 DC TOP 01/23 1506 Guaifenesin 10 ML .STK-MED ONE 01/23 2042 DC PO 01/23 2043 Guaifenesin 10 ML Q6P PRN 01/18 0215 AC 01/24 PO 0646 Insulin Aspart 0 TIDAC/HS 01/21 1200 AC SC Ipratropium [place] 2.5 ML BID 01/18 1130 AC 01/24 INH 0903 Levetiracetam 500 MG DAILY 01/20 1000 AC 01/24 PO 0953 Lidocaine 2 HILARIA .STK-MED ONE 01/23 1505 DC TOP 01/23 1506 Melatonin 5 MG AT BEDTIME 01/18 2200 AC 04 PO 2107 Methyl Salicylate 1 HILARIA TID PRN 01/19 1430 AC 01/20 TOP 0617 Oxybutynin Chloride 10 MG TID 01/21 1000 AC 01/24 PO 0952 Oxycodone/ 1 TAB Q4P PRN 01/18 0930 AC 01/23 Acetaminophen PO 2053 Pantoprazole Sodium 40 MG BID 01/20 1145 AC 01/24 IV 0952 Patient Medication 1 ED ONE ONE 01/23 1330 DC 01/23 Teaching ED 01/23 1331 1612 Rivaroxaban 20 MG DAILY 01/23 1630 AC 01/23 PO 1758 Sodium Hypochlorite 1 HILARIA DAILY 01/18 1245 01/24 TOP 0953 Trazodone HCl 25 MG Q12H PRN 01/18 0015 AC 01/22 PO 0008 Vancomycin HCl 1,000 MG Q12 01/22 1158 AC 01/24 Sodium Chloride 250 ML IV 0951 Laboratory Tests 01/24 01/23 0640 1045 Coagulation APTT (25 - 37 SEC) 33 Hematology CBC w Diff NO MAN DIFF REQ WBC (4.8 - 10.8 /CUMM) 16.6 H RBC (4.70 - 6.10 /CUMM) 3.73 L Hgb (14.0 - 18.0 G/DL) 9.6 L Hct (42 - 52 %) 30.0 L MCV (80.0 - 94.0 FL) 80.6 MCH (27.0 - 31.0 PG) 25.7 L RDW (11.5 - 14.5 %) 19.9 H Plt Count (130 - 400 /CUMM) 469 H MPV (7.4 - 10.4 FL) 7.0 L Gran % (42.2 - 75.2 %) 83.2 H Lymphocytes % (20.5 - 51.1 %) 7.6 L Monocytes % (1.7 - 9.3 %) 6.6 Eosinophils % (0 - 5 %) 2.5 Basophils % (0.0 - 2.0 %) 0.1 Absolute Granulocytes (1.4 - 6.5 /CUMM) 13.8 H Absolute Lymphocytes (1.2 - 3.4 /CUMM) 1.3 Absolute Monocytes (0.10 - 0.60 /CUMM) 1.1 H Absolute Eosinophils (0.0 - 0.7 /CUMM) 0.4 Absolute Basophils (0.0 - 0.2 /CUMM) 0 PUBS MCHC (33.0 - 37.0 G/DL) 31.9 L Vital Signs Date Time Temp Pulse Resp B/P Pulse O2 O2 Flow FiO2 Ox Delivery Rate 01/24 0638 98.1 80 20 163/72 96 Nasal 2.0L Cannula 01/24 0000 95 Nasal 2.0L Cannula 01/23 2246 97.8 88 20 154/82 95 Nasal 2.0L Cannula 01/23 1850 96 Nasal 3.0L Cannula 01/23 1600 93 Nasal 3.0L Cannula
--- NOTE | 2017-01-24 13:41 | PN- Pulmonary ---
Subjective HPI/Critical Care Issues: Patient is awake and alert and has minimal complaints. Endoscopy demonstrated fundic ulcer without active bleed. Full anticoagulation cleared by GI. He will need a repeat endoscopy in 2 months. MRSA sputum now on IV vancomycin. Repeat chest x-ray shows improved infiltrates however leukocytosis are worsening Objective Current Medications: Current Medications Sig/Mey Start time Last Medication Dose Route Stop Time Status Admin Acetaminophen 1,000 MG .STK-MED ONE 01/23 2347 DC IV 01/23 2348 Acetaminophen 1,000 MG Q6P PRN 01/18 0045 AC 01/23 N/A 1 UNIT IV 2353 Albuterol Sulfate 3 ML BID 01/18 1130 AC 01/24 INH 0903 Aspirin 81 MG DAILY 01/18 1000 AC 01/24 PO 0952 Atorvastatin Calcium 10 MG 1700 01/18 1700 AC 01/23 PO 1612 Benzocaine 1 HILARIA .STK-MED ONE 01/23 1505 DC TOP 01/23 1506 Guaifenesin 10 ML .STK-MED ONE 01/23 2042 DC PO 01/23 2043 Guaifenesin 10 ML Q6P PRN 01/18 0215 AC 01/24 PO 0646 Insulin Aspart 0 TIDAC/HS 01/21 1200 AC SC Ipratropium [place] 2.5 ML BID 01/18 1130 AC 01/24 INH 0903 Levetiracetam 500 MG DAILY 01/20 1000 AC 01/24 PO 0953 Lidocaine 2 HILARIA .STK-MED ONE 01/23 1505 DC TOP 04 1506 Melatonin 5 MG AT BEDTIME 01/18 2200 AC 01/23 PO 2107 Methyl Salicylate 1 HILARIA TID PRN 01/19 1430 AC 01/20 TOP 0617 Oxybutynin Chloride 10 MG TID 01/21 1000 AC 01/24 PO 0952 Oxycodone/ 1 TAB Q4P PRN 01/18 0930 AC 01/24 Acetaminophen PO 1014 Pantoprazole Sodium 40 MG BID 01/20 1145 AC 01/24 IV 0952 Rivaroxaban 20 MG DAILY 01/23 1630 AC 01/23 PO 1758 Sodium Hypochlorite 1 HILARIA DAILY 01/18 1245 AC 01/24 TOP 0953 Trazodone HCl 25 MG Q12H PRN 01/18 0015 AC 01/22 PO 0008 Vancomycin HCl 1,000 MG Q12 01/22 1158 AC 01/24 Sodium Chloride 250 ML IV 0951 Vital Signs & I&O Last 24 Hrs of Vitals and I&O: Vital Signs Date Time Temp Pulse Resp B/P Pulse O2 O2 Flow FiO2 Ox Delivery Rate 01/24 0638 98.1 80 20 163/72 96 Nasal 2.0L Cannula 01/24 0000 95 Nasal 2.0L Cannula 01/23 2246 97.8 88 20 154/82 95 Nasal 2.0L Cannula 01/23 1850 96 Nasal 3.0L Cannula 01/23 1600 93 Nasal 3.0L Cannula Intake & Output 01/24 1600 01/24 0800 01/24 0000 Intake Total 240 1010 Output Total 1100 200 Balance -860 810 Intake, IV 270 Intake, Oral 240 740 Output, Stool 200 200 Output, Urine 900 Impression/Plan Impression/Plan Impression/Plan: IMPRESSION This is a 71-year-old gentleman with previous history of spinal stroke after abdominal aortic aneurysm repair leading to paraplegia, indwelling [place] with suprapubic catheter, nonhealing decubiti ulcer, multiple antibiotics for polymicrobial sacral osteomyelitis now, previous diversion colostomy, diabetes, hypertension, hyperlipidemia, coronary artery disease, hypertension, GERD, anxiety and depression, recent bilateral pulmonary embolism, was on Xeralto now comes in with Resolved Septic shock most likely related to polymicrobial sepsis from the sacral decubiti. CT suggest bibasilar infiltrates prob pna with staph in the sputum, now growing MRSA Previous bilateral pulmonary embolism now was on adequate anticoagulation unlikely that he has ongoing venous thromboembolism Diabetes, hypertension, hyperlipidemia, anxiety and depression stable Acute on chronic renal insufficiency now creatinine returning back to normal Paraplegia Probable malignancy in the kidney as noted in the previous CT Previous thrombocytosis may be related to his underlying pathophysiology which needs to be followed Anemia with work up ongoing, endoscopy ulcer with no active bleed RECOMMENDATION start xeralto ppi Antibiotics per infectious disease,Cont vanco. Will follow prn Check C BC daily ok to dc
[2017-01-24 14:14] VITALS: BP 148/60
--- NOTE | 2017-01-24 15:28 | PN- Infect Dx ---
Subjective Subjective: Afebrile. He notes abdominal distention and liquid stools through the colostomy Objective Last 24 Hrs of Vital Signs/I&O Vital Signs Date Time Temp Pulse Resp B/P Pulse O2 O2 Flow FiO2 Ox Delivery Rate 01/24 1414 98.2 86 20 148/60 94 Nasal 2.0L Cannula 01/24 0638 98.1 80 20 163/72 96 Nasal 2.0L Cannula 01/24 0000 95 Nasal 2.0L Cannula 01/23 2246 97.8 88 20 154/82 95 Nasal 2.0L Cannula 01/23 1850 96 Nasal 3.0L Cannula 01/23 1600 93 Nasal 3.0L Cannula Intake & Output 01/24 1600 01/24 0800 01/24 0000 Intake Total 240 1010 Output Total 1100 200 Balance -860 810 Intake, IV 270 Intake, Oral 240 740 Output, Stool 200 200 Output, Urine 900 Physical Exam Other Physical Findings: He appears comfortable in no acute distress Lungs decreased breath sounds bilaterally Heart regular rhythm with no murmur Abdomen distended, nontender with positive bowel sounds; liquid stool in the colostomy Extremities PICC in the right upper extremity with no inflammation at the site Results Last 24 Hours of Lab Results: Laboratory Tests 01/24 0640 Hematology CBC w Diff NO MAN DIFF REQ WBC (4.8 - 10.8 /CUMM) 16.6 H RBC (4.70 - 6.10 /CUMM) 3.73 L Hgb (14.0 - 18.0 G/DL) 9.6 L Hct (42 - 52 %) 30.0 L MCV (80.0 - 94.0 FL) 80.6 MCH (27.0 - 31.0 PG) 25.7 L RDW (11.5 - 14.5 %) 19.9 H Plt Count (130 - 400 /CUMM) 469 H MPV (7.4 - 10.4 FL) 7.0 L Gran % (42.2 - 75.2 %) 83.2 H Lymphocytes % (20.5 - 51.1 %) 7.6 L Monocytes % (1.7 - 9.3 %) 6.6 Eosinophils % (0 - 5 %) 2.5 Basophils % (0.0 - 2.0 %) 0.1 Absolute Granulocytes (1.4 - 6.5 /CUMM) 13.8 H Absolute Lymphocytes (1.2 - 3.4 /CUMM) 1.3 Absolute Monocytes (0.10 - 0.60 /CUMM) 1.1 H Absolute Eosinophils (0.0 - 0.7 /CUMM) 0.4 Absolute Basophils (0.0 - 0.2 /CUMM) 0 PUBS MCHC (33.0 - 37.0 G/DL) 31.9 L Last 24 Hours of Perfecto Results: Sputum culture January 22 positive for MRSA and yeast Recent Imaging Studies: Chest x-ray 6, personally reviewed, reveals improvement at the right lung base with persistent mild atelectasis at the left base Assessment/Plan Impression: Stable with temperatures remaining normal and white blood cell count decreasing on Vancomycin Day 2 of treatment for presumed MRSA pneumonia, though he had already improved prior to initiation of Vancomycin. His leukocytosis may be secondary to pneumonia, but, with his improved chest x-ray and stable respiratory status, other sources may need to be considered. He does note liquid stool in the colostomy and abdominal distention, and a repeat C. difficile can be obtained. His H&H remains stable status post upper endoscopy yesterday, which revealed an ulcer in the fundus. Suggestion: 1. Repeat stool for C. difficile 2. Further management of his sacral decubitus per Plastic surgery 3. Continue Vancomycin
[2017-01-24 21:59] VITALS: BP 146/64
[2017-01-25 07:27] VITALS: BP 160/66
--- NOTE | 2017-01-25 08:01 | PN- Housestaff ---
Subjective Follow-up For: # Septic shock on admission, most likely due to pneumonia # Acute blood loss anemia, GI blood loss # Hx of PE # Leaking suprapubic catheter Subjective: Afebrile, WBCs increased again to 18 this a.m spite being on IV vancomycin. pending C. difficile. Saturating well on 2 L of oxygen, hemodynamically stable. Patient had abdominal distention yesterday, he got relieved after passing large amounts of gas and watery brown nonbloody stool. Denies any current complaint. Review of Systems Constitutional: Reports: see HPI. Objective Last 24 Hrs of Vital Signs/I&O Vital Signs Date Time Temp Pulse Resp B/P Pulse O2 O2 Flow FiO2 Ox Delivery Rate 01/25 1050 98 Nasal 2.0L Cannula 01/25 0800 Nasal 1.5L Cannula 01/25 0727 98.4 105 20 160/66 94 Nasal 2.0L Cannula 01/25 0000 Nasal 1.5L Cannula 01/24 2159 98.0 82 20 146/64 96 Nasal 2.0L Cannula 01/24 1850 93 Room Air 01/24 1600 93 Nasal 2.0L Cannula 01/24 1414 98.2 86 20 148/60 94 Nasal 2.0L Cannula Intake & Output 01/25 1600 01/25 0800 01/25 0000 Intake Total 200 650 Output Total 450 3250 Balance -250 -2600 Intake, IV 250 Intake, Oral 200 400 Output, Stool 300 50 Output, Urine 150 3200 Physical Exam General Appearance: Alert, Oriented X3, Cooperative, No Acute Distress Skin: No Rashes Cardiovascular: Regular Rate, Normal S1, Normal S2, No Murmurs Lungs: mild rhonchi with decreased air entry over both lungs Abdomen: Soft, No Tenderness, mild fluid distended, cholecystomy is filled with watery brown nonbloody Neurological: Normal Speech Extremities: No Clubbing, No Cyanosis, trace lower extremity edema Current Medications: Current Medications Sig/Mey Start time Last Medication Dose Route Stop Time Status Admin Acetaminophen 1,000 MG Q6P PRN 01/18 0045 AC 01/23 N/A 1 UNIT IV 2353 Albuterol Sulfate 3 ML BID 01/18 1130 AC 01/25 INH 1045 Aspirin 81 MG DAILY 01/18 1000 AC 01/25 PO 0949 Atorvastatin Calcium 10 MG 1700 01/18 1700 AC 01/24 PO 1711 Guaifenesin 10 ML Q6P PRN 01/18 0215 AC 01/24 PO 0646 Insulin Aspart 0 TIDAC/HS 01/21 1200 AC 01/24 SC 2129 Ipratropium [place] 2.5 ML BID 01/18 1130 AC 01/25 INH 1045 Levetiracetam 500 MG DAILY 01/20 1000 AC 01/25 PO 0950 Melatonin 5 MG AT BEDTIME 01/18 2200 AC 01/24 PO 2131 Methyl Salicylate 1 HILARIA TID PRN 01/19 1430 AC 01/20 TOP 0617 Ondansetron HCl 4 MG ONCE ONE 01/24 2300 DC 01/24 IV 01/24 2301 2307 Oxybutynin Chloride 10 MG TID 01/21 1000 AC 01/25 PO 0950 Oxycodone/ 1 TAB Q4P PRN 01/18 0930 AC 01/25 Acetaminophen PO 0616 Pantoprazole Sodium 40 MG BID 01/20 1145 AC 01/25 IV 0950 Rivaroxaban 20 MG DAILY 01/23 1630 AC 01/25 PO 0949 Sodium Hypochlorite 1 HILARIA DAILY 01/18 1245 AC 01/25 TOP 0950 Trazodone HCl 25 MG Q12H PRN 01/18 0015 AC 01/22 PO 0008 Vancomycin HCl 1,000 MG Q12 01/22 1158 AC 01/25 Sodium Chloride 250 ML IV 0950 Last 24 Hrs of Lab/Perfecto Results Last 24 Hrs of Labs/Mics: Laboratory Tests 01/25/17 0630: CBC w Diff NO MAN DIFF REQ, RBC 3.96 L, MCV 80.9, MCH 25.7 L, RDW 20.1 H, MPV 7.2 L, Gran % 85.6 H, Lymphocytes % 6.3 L, Monocytes % 6.5, Eosinophils % 1.4 , Basophils % 0.2, Absolute Granulocytes 15.5 H, Absolute Lymphocytes 1.2, Absolute Monocytes 1.2 H, Absolute Eosinophils 0.2, Absolute Basophils 0, PUBS MCHC 31.8 L Microbiology 01/24 1850 STOOL: Clostridium difficile Toxin A & B - RECD Assessment/Plan Assessment: # Septic shock on admission, most likely 2/2 pneumonia Sputum culture from January 19 came back positive for MRSA. his WBCs increased from 16 to 18 today. C. difficile toxin still ending * cont' vancomycin as per ID * C. difficile pending * C. difficile toxin is negative we will send for C. difficile PCR * We will consider CT abdomen and pelvis is C. difficile negative #Decubitus ulcer * Dr. Jung, plastic surgery is on board * Most likely will need to follow with plastic surgery as an outpatient # Leaking suprapubic catheter * continuing oxybutinin 10 tid. * Was likely suprapubic catheter will be changed by Dr. Zimmerman today # Acute blood loss anemia, GI blood loss H&H is stable post blood transfusion. EGD 2 days ago shows Fundic ulcer and Fundic submucosal lesion. * GI is OK with continuing aspirin * We will continue PPI * As per GI we will continue Xarelto watch for any symptom or sign of bleeding * Repeat EGD in approximately 2 months to assess for healing # Hx of PE * Continue Xarelto 20 mg daily as patient was cleared by GI * We will watch for any signs or symptoms of GI bleed # DM * Accucheck, novolog tidac/qhs Diet: Diabetic dite DVT ppx: ALPS , Xarelto FULL CODE Problem List: 1. Septic shock Pain Ratin Pain Location: na Pain Goal: Remain pain free Pain Plan: see A&P Tomorrow's Labs & Rationales: cbc and bep Consulting Request: Consulting Specialty: Infectious Disease
[2017-01-25 08:02] LABS: ABSOLUTE BASOPHIL COUNT 0 /CUMM (0.0-0.2); ABSOLUTE EOSINOPHIL COUNT 0.2 /CUMM (0.0-0.7); ABSOLUTE GRANULOCYTE CT 15.5 /CUMM (1.4-6.5); ABSOLUTE LYMPH COUNT 1.2 /CUMM (1.2-3.4); ABSOLUTE MONOCYTE COUNT 1.2 /CUMM (0.10-0.60); BASOPHIL % 0.2 % (0.0-2.0); EOSINOPHIL % 1.4 % (0-5); HEMATOCRIT 32.1 % (42-52); MEAN CORPUSCULAR HGB 25.7 PG (27.0-31.0); MEAN CORPUSCULAR HGB CONC 31.8 G/DL (33.0-37.0); MEAN CORPUSCULAR VOLUME 80.9 FL (80.0-94.0); MEAN PLATELET VOLUME 7.2 FL (7.4-10.4); PLATELET COUNT 499 /CUMM (130-400); RBC DISTRIBUTION WIDTH 20.1 % (11.5-14.5); RED BLOOD CELL CT 3.96 /CUMM (4.70-6.10); WHITE BLOOD CELL COUNT 18.1 /CUMM (4.8-10.8)
[2017-01-25 09:16] LABS: GRANULOCYTE % 85.6 % (42.2-75.2)
--- NOTE | 2017-01-25 09:29 | PN- Att Addend ---
See Addendum Attending Addendum Attending Brief Note Patient is awake and alert and has minimal complaints. General Appearance: Alert, No Acute Distress Skin: Sacral decubitus with wound VAC HEENT: PEERLA Neck: Supple, No JVD Cardiovascular: Regular Rate, Normal S1, Normal S2, No Murmurs Lungs: Clear to Auscultation, Normal Air Movement Abdomen: Normal Bowel Sounds, Soft, No Tenderness Neurological: Normal Speech, Strength at 5/5 X4 Ext, Cranial Nerves 3-12 NL, Reflexes 2+ Extremities: No Clubbing, No Cyanosis, No Edema Assessment Endoscopy demonstrated fundic ulcer without active bleed. Full anticoagulation cleared by GI. He will need a repeat endoscopy in 2 months. MRSA sputum now on IV vancomycin. Repeat chest x-ray shows improved infiltrates however leukocytosis are worsening today. Overall clinically patient appears improved. Plan Continue IV vancomycin per ID recommendation. Repeat endoscopy in 2 months Continue PPI Resume xarelto Urology and plastic surgery evaluation as outpatient Continue other meds Current Medications Sig/Mey Start time Last Medication Dose Route Stop Time Status Admin Acetaminophen 1,000 MG Q6P PRN 01/18 0045 AC 01/23 N/A 1 UNIT IV 2353 Albuterol Sulfate 3 ML BID 01/18 1130 AC 01/24 INH 1850 Aspirin 81 MG DAILY 01/18 1000 AC 01/24 PO 0952 Atorvastatin Calcium 10 MG 1700 01/18 1700 AC 01/24 PO 1711 Guaifenesin 10 ML Q6P PRN 01/18 0215 AC 01/24 PO 0646 Insulin Aspart 0 TIDAC/HS 01/21 1200 AC 01/24 SC 2129 Ipratropium [place] 2.5 ML BID 01/18 1130 AC 01/24 INH 1850 Levetiracetam 500 MG DAILY 01/20 1000 AC 01/24 PO 0953 Melatonin 5 MG AT BEDTIME 01/18 2200 AC 01/24 PO 2131 Methyl Salicylate 1 HILARIA TID PRN 01/19 1430 AC 01/20 TOP 0617 Ondansetron HCl 4 MG ONCE ONE 01/24 2300 DC 04/ IV 01/24 2301 2307 Oxybutynin Chloride 10 MG TID 01/21 1000 AC 01/24 PO 2130 Oxycodone/ 1 TAB Q4P PRN 01/18 0930 AC 01/25 Acetaminophen PO 0616 Pantoprazole Sodium 40 MG BID 01/20 1145 AC 01/24 IV 2130 Rivaroxaban 20 MG DAILY 01/23 1630 AC 01/24 PO 1440 Sodium Hypochlorite 1 HILARIA DAILY 01/18 1245 01/24 TOP 0953 Trazodone HCl 25 MG Q12H PRN 01/18 0015 01/22 PO 0008 Vancomycin HCl 1,000 MG Q12 01/22 1158 01/24 Sodium Chloride 250 ML IV 2131 Laboratory Tests 01/25 630 Hematology CBC w Diff NO MAN DIFF REQ WBC (4.8 - 10.8 /CUMM) 18.1 H RBC (4.70 - 6.10 /CUMM) 3.96 L Hgb (14.0 - 18.0 G/DL) 10.2 L Hct (42 - 52 %) 32.1 L MCV (80.0 - 94.0 FL) 80.9 MCH (27.0 - 31.0 PG) 25.7 L RDW (11.5 - 14.5 %) 20.1 H Plt Count (130 - 400 /CUMM) 499 H MPV (7.4 - 10.4 FL) 7.2 L Gran % (42.2 - 75.2 %) 85.6 H Lymphocytes % (20.5 - 51.1 %) 6.3 L Monocytes % (1.7 - 9.3 %) 6.5 Eosinophils % (0 - 5 %) 1.4 Basophils % (0.0 - 2.0 %) 0.2 Absolute Granulocytes (1.4 - 6.5 /CUMM) 15.5 H Absolute Lymphocytes (1.2 - 3.4 /CUMM) 1.2 Absolute Monocytes (0.10 - 0.60 /CUMM) 1.2 H Absolute Eosinophils (0.0 - 0.7 /CUMM) 0.2 Absolute Basophils (0.0 - 0.2 /CUMM) 0 PUBS MCHC (33.0 - 37.0 G/DL) 31.8 L Vital Signs Date Time Temp Pulse Resp B/P Pulse O2 O2 Flow FiO2 Ox Delivery Rate 01/25 727 98.4 105 20 160/66 94 Nasal 2.0L Cannula 01/25 0000 Nasal 1.5L Cannula 01/24 2159 98.0 82 20 146/64 96 Nasal 2.0L Cannula 01/24 1850 93 Room Air 01/24 1600 93 Nasal 2.0L Cannula 01/24 1414 98.2 86 20 148/60 94 Nasal 2.0L Cannula
--- NOTE | 2017-01-25 11:40 | PN- Infect Dx ---
Subjective Subjective: Afebrile without complaints. He notes decreased abdominal distention after passing a lot of gas through the colostomy, but still notes liquid stools. He has no respiratory complaints. Objective Last 24 Hrs of Vital Signs/I&O Vital Signs Date Time Temp Pulse Resp B/P Pulse O2 O2 Flow FiO2 Ox Delivery Rate 01/25 1050 98 Nasal 2.0L Cannula 01/25 0800 Nasal 1.5L Cannula 01/25 0727 98.4 105 20 160/66 94 Nasal 2.0L Cannula 01/25 0000 Nasal 1.5L Cannula 01/24 2159 98.0 82 20 146/64 96 Nasal 2.0L Cannula 01/24 1850 93 Room Air 01/24 1600 93 Nasal 2.0L Cannula 01/24 1414 98.2 86 20 148/60 94 Nasal 2.0L Cannula Intake & Output 01/25 1600 01/25 0800 01/25 0000 Intake Total 200 650 Output Total 450 3250 Balance -250 -2600 Intake, IV 250 Intake, Oral 200 400 Output, Stool 300 50 Output, Urine 150 3200 Physical Exam Other Physical Findings: He appears comfortable in no acute distress Lungs decreased breath sounds at the left base Heart regular rhythm with no murmur Abdomen decreased distention, nontender with positive bowel sounds; liquid stool in the colostomy; suprapubic catheter site with no inflammation Back sacral decubitus clean, with no necrosis or purulence and with no surrounding erythema Extremities no cyanosis, clubbing or edema Results Last 24 Hours of Lab Results: Laboratory Tests 01/25 0630 Hematology CBC w Diff NO MAN DIFF REQ WBC (4.8 - 10.8 /CUMM) 18.1 H RBC (4.70 - 6.10 /CUMM) 3.96 L Hgb (14.0 - 18.0 G/DL) 10.2 L Hct (42 - 52 %) 32.1 L MCV (80.0 - 94.0 FL) 80.9 MCH (27.0 - 31.0 PG) 25.7 L RDW (11.5 - 14.5 %) 20.1 H Plt Count (130 - 400 /CUMM) 499 H MPV (7.4 - 10.4 FL) 7.2 L Gran % (42.2 - 75.2 %) 85.6 H Lymphocytes % (20.5 - 51.1 %) 6.3 L Monocytes % (1.7 - 9.3 %) 6.5 Eosinophils % (0 - 5 %) 1.4 Basophils % (0.0 - 2.0 %) 0.2 Absolute Granulocytes (1.4 - 6.5 /CUMM) 15.5 H Absolute Lymphocytes (1.2 - 3.4 /CUMM) 1.2 Absolute Monocytes (0.10 - 0.60 /CUMM) 1.2 H Absolute Eosinophils (0.0 - 0.7 /CUMM) 0.2 Absolute Basophils (0.0 - 0.2 /CUMM) 0 PUBS MCHC (33.0 - 37.0 G/DL) 31.8 L Last 24 Hours of Perfecto Results: Stool C. difficile January 24 pending Assessment/Plan Impression: Clinically stable with temperatures remaining normal but with white blood cell count increasing despite Vancomycin now Day 3 of treatment for presumed MRSA pneumonia, though his respiratory status has been stable even before Vancomycin was begun. His abdominal distention has improved but he still has liquid stool in the colostomy, and a repeat C. difficile is pending. His H&H remains stable status post upper endoscopy 2 days ago, which revealed an ulcer in the fundus. His decubitus is clean and does not appear to be the source of his leukocytosis. Suggestion: 1. Follow-up stool for C. difficile 2. Stool C. difficile PCR if toxin test negative 3. Consider repeat CT of the abdomen and pelvis if C. difficile is negative 4. Continue Vancomycin pending above
[2017-01-25 16:12] VITALS: BP 144/71
[2017-01-25 23:25] VITALS: BP 145/72
--- NOTE | 2017-01-25 23:43 | CT SCAN REPORT ---
EXAMINATION: CT ABDOMEN AND PELVIS WITH CONTRAST CLINICAL INFORMATION: Dx: colitis, cholecystitis, cholangitis, or abscess Signs Symptoms: un explained increase in WBCs, presented with shock. COMPARISON: Ultrasound abdomen 01/21/[address] scan abdomen pelvis 01/18/2017 TECHNIQUE: Multidetector volumetric imaging was performed of the abdomen and pelvis before and after the IV administration of 94 mL of Optiray 320 intravenous contrast. Sagittal and coronal reformatted images were obtained on the technologist's workstation. DLP: 885.5 mGy-cm FINDINGS: LUNG BASES: Status post median sternotomy. Bibasilar dependent atelectasis. Small bilateral dependent pleural effusions. Small hiatal hernia there is vascular calcification of coronary arteries and thoracic aorta. LIVER, GALLBLADDER, AND BILIARY TREE: The liver is normal in size, shape, and attenuation. No focal hepatic lesion or biliary ductal dilatation is present. Status post cholecystectomy. No bile duct dilatation. Extra hepatic CBD measures 4 mm. PANCREAS: Unremarkable. SPLEEN: Unremarkable. ADRENAL GLANDS: Unremarkable. KIDNEYS AND URETERS: Multiple bilateral renal cysts. Stable cortical thinning and atrophy of left kidney. No renal or ureteral calculus. No hydronephrosis. BLADDER: [place] catheter within the bladder. GASTROINTESTINAL TRACT: Stomach is moderately distended with fluid and air but no obstruction or wall thickening. Status post Hans pouch with left-sided colostomy. Moderate volume of stool in the colon. The left colon just proximal to the ostomy was impacted with stool on the CAT scan of 01/18/2017. The volume of the stool in this bowel loop has markedly diminished. There is still some distention of this bowel loop and mild bowel wall thickening but no significant edema in the pericolonic fat. There is mild dilatation of proximal small bowel loops with air-fluid levels. There is a transition point in the left midabdomen, axial image 513 (3), coronal image 28. The distal small bowel is decompressed. Appearance is of a mild partial small bowel obstruction. The appendix is normal. ABDOMINAL WALL: Left-sided colostomy at the left anterior abdominal wall . Decubitus ulcer adjacent to left iliac bone and ischium. LYMPH NODES: Normal. VASCULAR: No change of the aortic dissection seen from about the level of the aortic hiatus and extending through the distal aorta. Atherosclerotic vascular calcifications of aorta. 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 PELVIC VISCERA: Unremarkable. OSSEOUS STRUCTURES: Multilevel degenerative change of the spine. There is sclerosis of the left ischium and iliac bone associated with the decubitus ulcer on the left buttocks. The ulcer extends just about to the level of the bone and extends to the tip of the sacrum . No focal bone destruction. No change since prior study. IMPRESSION: 1. Small bilateral pleural effusions. Bibasilar atelectasis. 2. Stable aortic dissection. 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 3. 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 Diminished volume of stool in the distal large bowel loop but some bowel wall thickening this bowel loop remains compared with prior exam of 01/18/2017. 4. There is a mild partial small bowel obstruction with transition point in the midabdomen. 5. Status post cholecystectomy. No bile duct dilatation. 6. Bilateral renal cysts. Atrophic left kidney. 7. Decubitus ulcer with sclerosis of left ischium
[2017-01-26 07:09] VITALS: BP 140/80
[2017-01-26 08:15] LABS: ABSOLUTE BASOPHIL COUNT 0 /CUMM (0.0-0.2); ABSOLUTE EOSINOPHIL COUNT 0.4 /CUMM (0.0-0.7); ABSOLUTE GRANULOCYTE CT 15.4 /CUMM (1.4-6.5); ABSOLUTE LYMPH COUNT 1.2 /CUMM (1.2-3.4); ABSOLUTE MONOCYTE COUNT 1.4 /CUMM (0.10-0.60); BASOPHIL % 0 % (0.0-2.0); EOSINOPHIL % 2.1 % (0-5); GRANULOCYTE % 83.8 % (42.2-75.2); HEMATOCRIT 28.5 % (42-52); MEAN CORPUSCULAR HGB 25.8 PG (27.0-31.0); MEAN CORPUSCULAR VOLUME 80.8 FL (80.0-94.0); MEAN PLATELET VOLUME 7.1 FL (7.4-10.4); PLATELET COUNT 524 /CUMM (130-400); RED BLOOD CELL CT 3.53 /CUMM (4.70-6.10); WHITE BLOOD CELL COUNT 18.4 /CUMM (4.8-10.8)
--- NOTE | 2017-01-26 09:20 | PN- Housestaff ---
Subjective Follow-up For: # Septic shock on admission, most likely due to pneumonia # Acute blood loss anemia, GI blood loss # Hx of PE # Leaking suprapubic catheter Subjective: Afebrile, WBCs stays high 18 this a.m even though he is on IV vancomycin. C diff negavtive, but PCR came back positive today. Saturating well on 2 L of oxygen, hemodynamically stable. Denies any current complaint. Review of Systems Constitutional: Reports: no symptoms. Objective Last 24 Hrs of Vital Signs/I&O Vital Signs Date Time Temp Pulse Resp B/P Pulse O2 O2 Flow FiO2 Ox Delivery Rate 01/26 1108 95 Nasal 2.0L Cannula 01/26 08 93 Nasal 2.0L Cannula 01/26 0709 97.4 103 20 140/80 95 Nasal 2.0L Cannula 01/26 0000 Nasal 1.5L Cannula 01/25 2325 98.2 94 18 145/72 93 Room Air 01/25 1612 98.1 85 20 144/71 97 Nasal 2.0L Cannula Intake & Output 01/26 1600 01/26 0800 01/26 0000 Intake Total 1000 240 400 Output Total 1400 1151 Balance 1000 -1160 -751 Intake, IV 300 280 Intake, Oral 700 240 120 Number 200 Bowel Movements Output, Stool 400 1 Output, Urine 1000 1150 Physical Exam General Appearance: Alert, Oriented X3, Cooperative, No Acute Distress Skin: No Rashes HEENT: Atraumatic, PERRLA, EOMI, Mucous Membr. moist/pink Cardiovascular: Regular Rate, Normal S1, Normal S2, No Murmurs Lungs: decrease air enrt b/l Abdomen: Soft, No Tenderness, colostomy is filled with watery brown nonbloody stool Neurological: Normal Speech Extremities: trace bilateral lower extremity edema Current Medications: Current Medications Sig/Mey Start time Last Medication Dose Route Stop Time Status Admin Acetaminophen 1,000 MG .STK-MED ONE 01/25 2043 DC IV 01/26 2044 Acetaminophen 1,000 MG Q6P PRN 01/18 0045 AC 01/25 N/A 1 UNIT IV 2047 Albuterol Sulfate 3 ML BID 01/18 1130 AC 01/26 INH 1041 Aspirin 81 MG DAILY 01/18 1000 AC 01/26 PO 0856 Atorvastatin Calcium 10 MG 1700 01/18 1700 AC 01/25 PO 1824 Guaifenesin 10 ML .STK-MED ONE 01/26 2000 DC PO 01/25 2001 Guaifenesin 10 ML Q6P PRN 01/18 0215 AC 01/25 PO 2002 Insulin Aspart 0 TIDAC/HS 01/21 1200 AC 01/26 SC 1231 Ipratropium [place] 2.5 ML BID 01/18 1130 AC 01/26 INH 1041 Levetiracetam 500 MG DAILY 01/20 1000 AC 01/26 PO 0857 Melatonin 5 MG AT BEDTIME 01/18 2200 AC 01/25 PO 2130 Methyl Salicylate 1 HILARIA TID PRN 01/19 1430 AC 01/20 TOP 0617 Oxybutynin Chloride 10 MG TID 01/21 1000 AC 01/26 PO 0856 Oxycodone/ 1 TAB Q4P PRN 01/18 0930 AC 01/26 Acetaminophen PO 1353 Pantoprazole Sodium 40 MG BID 01/20 1145 AC 01/26 IV 0857 Rivaroxaban 20 MG DAILY 01/23 1630 AC 01/26 PO 0855 Sodium Hypochlorite 1 HILARIA DAILY 01/18 1245 AC 01/26 TOP 1354 Trazodone HCl 25 MG Q12H PRN 01/18 0015 AC 01/22 PO 0008 Vancomycin HCl 1,000 MG Q12 01/22 1158 AC 01/26 Sodium Chloride 250 ML IV 0857 Last 24 Hrs of Lab/Perfecto Results Last 24 Hrs of Labs/Mics: Laboratory Tests 01/26/17 0615: Anion Gap 7, Estimated GFR > 60, BUN/Creatinine Ratio 23.3, CBC w Diff MAN DIFF ORDERED, RBC 3.53 L, MCV 80.8, MCH 25.8 L, RDW 21.0 H, MPV 7.1 L, Gran % 83.8 H, Lymphocytes % 6.7 L, Monocytes % 7.4, Eosinophils % 2.1, Basophils % 0 L, Absolute Granulocytes 15.4 H, Absolute Lymphocytes 1.2, Absolute Monocytes 1.4 H, Absolute Eosinophils 0.4, Absolute Basophils 0, Platelet Estimate INCREASED, Polychromasia 1+, Hypochromic-Microcytic 1+, Anisocytosis 1+, PUBS MCHC 32.0 L Assessment/Plan Assessment: # Septic shock on admission. Patient was initial treatment in the ICU, after he became stable he was transferred to general medicine. Sputum culture from January 19 came back positive for MRSA he was started on IV vancomycin, of her WBCs continue to increase. C. difficile toxin was negative, C. difficile PCR was stiff. CT: There is a mild partial small bowel obstruction with transition point in the midabdomen and some bowel wall thickening this bowel loop remains compared with prior exam of 2016. * Will DC IV Vanco * Will start oral vancomycin 125 mg every 6 #Decubitus ulcer * Dr. Jung, plastic surgery is on board * Most likely will need to follow with plastic surgery as an outpatient # Leaking suprapubic catheter * continuing oxybutinin 10 tid. # Acute blood loss anemia, GI blood loss H&H is stable post blood transfusion. EGD 2 days ago shows Fundic ulcer and Fundic submucosal lesion. * GI is OK with continuing aspirin * We will continue PPI * As per GI we will continue Xarelto watch for any symptom or sign of bleeding * Repeat EGD in approximately 2 months to assess for healing # Hx of PE * Continue Xarelto 20 mg daily as patient was cleared by GI * We will watch for any signs or symptoms of GI bleed # DM * Accucheck, novolog tidac/qhs Diet: Diabetic dite DVT ppx: ALPS , Xarelto FULL CODE Problem List: 1. Septic shock Pain Ratin Pain Location: na Pain Goal: Remain pain free Pain Plan: see A&P Tomorrow's Labs & Rationales: cbc and bep Consulting Request: Consulting Specialty: Infectious Disease
[2017-01-26 12:25] LABS: C.DIFFICILE TOXIN B QL PCR DETECTED (NOT DETECTED)
--- NOTE | 2017-01-26 13:22 | PN- Att Addend ---
Attending Addendum Attending Brief Note Patient is awake and alert and has minimal complaints. General Appearance: Alert, No Acute Distress Skin: Sacral decubitus with wound VAC HEENT: PEERLA Neck: Supple, No JVD Cardiovascular: Regular Rate, Normal S1, Normal S2, No Murmurs Lungs: Clear to Auscultation, Normal Air Movement Abdomen: Normal Bowel Sounds, Soft, No Tenderness Neurological: Normal Speech, Strength at 5/5 X4 Ext, Cranial Nerves 3-12 NL, Reflexes 2+ Extremities: No Clubbing, No Cyanosis, No Edema Assessment Endoscopy demonstrated fundic ulcer without active bleed. Full anticoagulation cleared by GI. He will need a repeat endoscopy in 2 months. MRSA pneumonia with hypoxic respiratory failure on IV vancomycin. Repeat chest x-ray shows improved infiltrates however leukocytosis are worsening today. Overall clinically patient appears improved. There was concerns about possible colitis. CAT scan suggested mild thickening and partial small bowel obstruction however patient denies any abdominal pain except for distention and he reports colostomy bag is draining appropriately. C. difficile 2 is negative and currently we are waiting for PCR. Plan Continue IV vancomycin per ID recommendation. Repeat endoscopy in 2 months Continue PPI Resume xarelto Urology and plastic surgery evaluation as outpatient Continue other meds Current Medications Sig/Mey Start time Last Medication Dose Route Stop Time Status Admin Acetaminophen 1,000 MG .STK-MED ONE 01/25 2043 DC IV 01/25 204 Acetaminophen 1,000 MG Q6P PRN 01/18 0045 AC 01/25 N/A 1 UNIT IV 2048 Albuterol Sulfate 3 ML BID 01/18 1130 AC 01/26 INH 1041 Aspirin 81 MG DAILY 01/18 1000 AC 01/26 PO 0856 Atorvastatin Calcium 10 MG 1700 01/18 1700 AC 01/25 PO 1824 Guaifenesin 10 ML .STK-MED ONE 01/25 2000 DC PO 01/25 2001 Guaifenesin 10 ML Q6P PRN 01/18 0215 AC 01/25 PO 2002 Insulin Aspart 0 TIDAC/HS 01/21 1200 AC 01/26 SC 1231 Ipratropium [place] 2.5 ML BID 01/18 1130 AC 01/26 INH 1041 Levetiracetam 500 MG DAILY 01/20 1000 AC 01/26 PO 0857 Melatonin 5 MG AT BEDTIME 01/18 2200 AC 01/25 PO 2130 Methyl Salicylate 1 HILARIA TID PRN 01/19 1430 AC 01/20 TOP 0617 Oxybutynin Chloride 10 MG TID 01/21 1000 AC 01/26 PO 0856 Oxycodone/ 1 TAB Q4P PRN 01/18 0930 AC 01/26 Acetaminophen PO 0855 Pantoprazole Sodium 40 MG BID 01/20 1145 AC 01/26 IV 0857 Patient Medication 1 ED .STK-MED ONE 01/25 1413 [place] Teaching ED 01/25 1414 Rivaroxaban 20 MG DAILY 01/23 1630 AC 01/26 PO 0855 Sodium Hypochlorite 1 HILARIA DAILY 01/18 1245 AC 01/25 TOP 0950 Trazodone HCl 25 MG Q12H PRN 01/18 0015 AC 01/22 PO 0008 Vancomycin HCl 1,000 MG Q12 01/22 1158 AC 01/26 Sodium Chloride 250 ML IV 0857 Laboratory Tests 01/26 0615 Chemistry Sodium (137 - 145 mmol/L) 137 Potassium (3.5 - 5.1 mmol/L) 4.4 Chloride (98 - 107 mmol/L) 101 Carbon Dioxide (22 - 30 mmol/L) 29 Anion Gap (5 - 16) 7 BUN (9 - 20 mg/dL) 14 Creatinine (0.7 - 1.2 mg/dL) 0.6 L Estimated GFR (>60 ml/min) > 60 BUN/Creatinine Ratio (7 - 25 %) 23.3 Hematology CBC w Diff MAN DIFF ORDERED WBC (4.8 - 10.8 /CUMM) 18.4 H RBC (4.70 - 6.10 /CUMM) 3.53 L Hgb (14.0 - 18.0 G/DL) 9.1 L Hct (42 - 52 %) 28.5 L MCV (80.0 - 94.0 FL) 80.8 MCH (27.0 - 31.0 PG) 25.8 L RDW (11.5 - 14.5 %) 21.0 H Plt Count (130 - 400 /CUMM) 524 H MPV (7.4 - 10.4 FL) 7.1 L Gran % (42.2 - 75.2 %) 83.8 H Lymphocytes % (20.5 - 51.1 %) 6.7 L Monocytes % (1.7 - 9.3 %) 7.4 Eosinophils % (0 - 5 %) 2.1 Basophils % (0.0 - 2.0 %) 0 L Absolute Granulocytes (1.4 - 6.5 /CUMM) 15.4 H Absolute Lymphocytes (1.2 - 3.4 /CUMM) 1.2 Absolute Monocytes (0.10 - 0.60 /CUMM) 1.4 H Absolute Eosinophils (0.0 - 0.7 /CUMM) 0.4 Absolute Basophils (0.0 - 0.2 /CUMM) 0 Platelet Estimate (ADEQUATE) INCREASED Polychromasia 1+ Hypochromic-Microcytic 1+ Anisocytosis 1+ PUBS MCHC (33.0 - 37.0 G/DL) 32.0 L Vital Signs Date Time Temp Pulse Resp B/P Pulse O2 O2 Flow FiO2 Ox Delivery Rate 01/26 1108 95 Nasal 2.0L Cannula 01/26 0800 93 Nasal 2.0L Cannula 01/26 0709 97.4 103 20 140/80 95 Nasal 2.0L Cannula 01/26 0000 Nasal 1.5L Cannula 01/25 2325 98.2 94 18 145/72 93 Room Air 01/25 1612 98.1 85 20 144/71 97 Nasal 2.0L Cannula
[2017-01-26 15:37] VITALS: BP 142/44
[2017-01-26 22:27] VITALS: BP 140/44
[2017-01-27 06:00] VITALS: BP 138/72
[2017-01-27 07:34] LABS: ABSOLUTE BASOPHIL COUNT 0 /CUMM (0.0-0.2); ABSOLUTE EOSINOPHIL COUNT 0.3 /CUMM (0.0-0.7); ABSOLUTE GRANULOCYTE CT 15.5 /CUMM (1.4-6.5); ABSOLUTE LYMPH COUNT 1.1 /CUMM (1.2-3.4); ABSOLUTE MONOCYTE COUNT 1.3 /CUMM (0.10-0.60); BASOPHIL % 0 % (0.0-2.0); EOSINOPHIL % 1.8 % (0-5); GRANULOCYTE % 85.2 % (42.2-75.2); HEMATOCRIT 26.6 % (42-52); MEAN CORPUSCULAR HGB 25.8 PG (27.0-31.0); MEAN CORPUSCULAR VOLUME 80.7 FL (80.0-94.0); MEAN PLATELET VOLUME 7.4 FL (7.4-10.4); PLATELET COUNT 431 /CUMM (130-400); WHITE BLOOD CELL COUNT 18.2 /CUMM (4.8-10.8)
--- NOTE | 2017-01-27 08:29 | PN- Infect Dx ---
Subjective Subjective: Afebrile without complaints Objective Last 24 Hrs of Vital Signs/I&O Vital Signs Date Time Temp Pulse Resp B/P Pulse O2 O2 Flow FiO2 Ox Delivery Rate 01/27 06 99.0 100 20 138/72 94 Nasal 2.0L Cannula 01/27 0000 Nasal 2.0L Cannula 01/26 2227 98.1 86 20 140/44 95 01/26 1900 95 Room Air 01/26 1600 95 Nasal 2.0L Cannula 01/26 1537 98.1 86 20 142/44 96 Nasal 2.0L Cannula 01/26 1108 95 Nasal 2.0L Cannula Intake & Output 01/27 1600 01/27 0800 01/27 0000 Intake Total 120 120 Output Total 1550 1200 Balance -1430 -1080 Intake, Oral 120 120 Output, Stool 200 Output, Urine 1350 1200 Physical Exam Other Physical Findings: He appears comfortable in no acute distress Lungs are clear Abdomen is soft, nontender with positive bowel sounds; colostomy with liquid output Extremities PICC in the right upper extremity with no inflammation at the site Results Last 24 Hours of Lab Results: Laboratory Tests 01/28 540 Chemistry Sodium (137 - 145 mmol/L) 134 L Potassium (3.5 - 5.1 mmol/L) 4.4 Chloride (98 - 107 mmol/L) 102 Carbon Dioxide (22 - 30 mmol/L) 31 H Anion Gap (5 - 16) 2 L BUN (9 - 20 mg/dL) 18 Creatinine (0.7 - 1.2 mg/dL) 0.6 L Estimated GFR (>60 ml/min) > 60 BUN/Creatinine Ratio (7 - 25 %) 30.0 H Hematology CBC w Diff MAN DIFF ORDERED WBC (4.8 - 10.8 /CUMM) 18.2 H RBC (4.70 - 6.10 /CUMM) 3.30 L Hgb (14.0 - 18.0 G/DL) 8.5 L Hct (42 - 52 %) 26.6 L MCV (80.0 - 94.0 FL) 80.7 MCH (27.0 - 31.0 PG) 25.8 L RDW (11.5 - 14.5 %) 21.0 H Plt Count (130 - 400 /CUMM) 431 H MPV (7.4 - 10.4 FL) 7.4 Gran % (42.2 - 75.2 %) 85.2 H Lymphocytes % (20.5 - 51.1 %) 6.1 L Monocytes % (1.7 - 9.3 %) 6.9 Eosinophils % (0 - 5 %) 1.8 Basophils % (0.0 - 2.0 %) 0 L Absolute Granulocytes (1.4 - 6.5 /CUMM) 15.5 H Segmented Neutrophils (42.2 - 75.2 %) 83 H Band Neutrophils (0.0 - 5.0 %) 1 Absolute Lymphocytes (1.2 - 3.4 /CUMM) 1.1 L Lymphocytes (20.5 - 51.1 %) 7 L Monocytes (1.7 - 9.3 %) 5 Absolute Monocytes (0.10 - 0.60 /CUMM) 1.3 H Eosinophils (0 - 5.0 %) 3 Absolute Eosinophils (0.0 - 0.7 /CUMM) 0.3 Absolute Basophils (0.0 - 0.2 /CUMM) 0 Metamyelocytes (0.0 - 1.0 %) 1 Platelet Estimate (ADEQUATE) VERIFIED BY SMEAR Polychromasia 1+ Anisocytosis 1+ Stomatocytes 1+ PUBS MCHC (33.0 - 37.0 G/DL) 32.0 L Last 24 Hours of Perfecto Results: Stool C. difficile PCR positive Recent Imaging Studies: CT of the abdomen and pelvis January 25 reveals small bilateral pleural effusions; mild partial small bowel obstruction Assessment/Plan Impression: Persistent leukocytosis most likely secondary to C. difficile, with the C. difficile PCR positive in the setting of liquid stool and recent antibiotics. He remains afebrile now on po Vancomycin. The IV Vancomycin has been discontinued given the low suspicion for pneumonia, with the recent CT of the chest only suggesting bibasilar atelectasis. Suggestion: 1. Continue po Vancomycin to complete a 10-14 day course
--- NOTE | 2017-01-27 08:51 | PN- Housestaff ---
Subjective Follow-up For: # Septic shock on admission, most likely due to pneumonia # Acute blood loss anemia, GI blood loss # Hx of PE # Leaking suprapubic catheter Subjective: Pt is seen and examined at Bedside. Patient does not endorse any acute complaints including fever, chills, nausea, vomiting, increased shortness of breath, chest pain, abdominal pain, or dysuria. No Acute overnight event reported by nursing staff Review of Systems Constitutional: Reports: no symptoms. Objective Last 24 Hrs of Vital Signs/I&O Vital Signs Date Time Temp Pulse Resp B/P Pulse O2 O2 Flow FiO2 Ox Delivery Rate 01/28 904 94 Nasal 2.0L Cannula 01/27 06 99.0 100 20 138/72 94 Nasal 2.0L Cannula 01/27 0000 Nasal 2.0L Cannula 01/26 2227 98.1 86 20 140/44 95 01/26 1900 95 Room Air 01/26 1600 95 Nasal 2.0L Cannula 01/26 1537 98.1 86 20 142/44 96 Nasal 2.0L Cannula 01/26 1108 95 Nasal 2.0L Cannula Intake & Output 01/27 1600 01/27 0800 01/27 0000 Intake Total 120 120 Output Total 1550 1200 Balance -1430 -1080 Intake, Oral 120 120 Output, Stool 200 Output, Urine 1350 1200 Physical Exam General Appearance: Alert, Oriented X3, Cooperative Other Physical Findings: Skin: No Rashes Cardiovascular: Regular Rate, Normal S1, Normal S2, No Murmurs Lungs: mild rhonchi with decreased air entry over both lungs Abdomen: Soft, No Tenderness, mild fluid distended, cholecystomy bag is clear was just emptied. Stoma area is unremarkable for any obvious acute bleeding or infectious appearance. Suprapubic catheter intact. Neurological: Normal Speech Extremities: No Clubbing, No Cyanosis, trace lower extremity edema Assessment/Plan Assessment: # Septic shock on admission. Patient was initial treatment in the ICU, after he became stable he was transferred to general medicine. Sputum culture from January 19 came back positive for MRSA he was started on IV vancomycin, of her WBCs continue to increase. C. difficile toxin was negative, C. difficile PCR was stiff. CT: There is a mild partial small bowel obstruction with transition point in the midabdomen and some bowel wall thickening this bowel loop remains compared with prior exam of 03/31/ 2017. * Will DC IV Vanco * C. difficile toxin currently negative . However high clinical suspicious of C. difficile with recent IV vancomycin that was useful suspected MRSA pneumonia, will continue ORAL vancomycin 125 mg total antibiotic course for 10-14 days . #Decubitus ulcer * Dr. Jung, plastic surgery is on board * Most likely will need to follow with plastic surgery as an outpatient # Leaking suprapubic catheter * continuing oxybutinin 10 tid. # Acute blood loss anemia, GI blood loss H&H is stable post blood transfusion. EGD previously done shows Fundic ulcer and Fundic submucosal lesion. * GI is OK with continuing aspirin * We will continue PPI * As per GI we will continue Xarelto watch for any symptom or sign of bleeding * Repeat EGD in approximately 2 months to assess for healing # Hx of PE * Continue Xarelto 20 mg daily as patient was cleared by GI * We will watch for any signs or symptoms of GI bleed # DM * Accucheck, novolog tidac/qhs Diet: Diabetic dite DVT ppx: ALPS , Xarelto FULL CODE Problem List: 1. Septic shock 2. Decubitus ulcer Pain Ratin Pain Location: back Pain Goal: Pain 4 or less Pain Plan: per pain papillary Tomorrow's Labs & Rationales: CBC-LEUKOCYTOSIS BEP-On vancomycin Consulting Request: Consulting Specialty: Infectious Disease
--- NOTE | 2017-01-27 11:34 | PN- Att Addend ---
Attending Addendum Attending Brief Note Patient is awake and alert and has minimal complaints. General Appearance: Alert, No Acute Distress Skin: Sacral decubitus with wound VAC HEENT: PEERLA Neck: Supple, No JVD Cardiovascular: Regular Rate, Normal S1, Normal S2, No Murmurs Lungs: Clear to Auscultation, Normal Air Movement Abdomen: Normal Bowel Sounds, Soft, No Tenderness Neurological: Normal Speech, Strength at 5/5 X4 Ext, Cranial Nerves 3-12 NL, Reflexes 2+ Extremities: No Clubbing, No Cyanosis, No Edema Assessment Endoscopy demonstrated fundic ulcer without active bleed. Full anticoagulation cleared by GI. He will need a repeat endoscopy in 2 months. MRSA pneumonia with hypoxic respiratory failure. He now has C. difficile confirmed by PCR. IV vancomycin discontinued and currently he is on by mouth vancomycin. We will observe for next 24 hours. Plan Continue by mouth vancomycin Repeat endoscopy in 2 months Continue PPI Resume xarelto Urology and plastic surgery evaluation as outpatient Continue other meds Current Medications Sig/Mey Start time Last Medication Dose Route Stop Time Status Admin Acetaminophen 1,000 MG Q6P PRN 01/18 0045 AC 01/25 N/A 1 UNIT IV 2048 Albuterol Sulfate 3 ML BID 01/18 1130 AC 01/27 INH 0854 Aspirin 81 MG DAILY 01/18 1000 AC 01/27 PO 0843 Atorvastatin Calcium 10 MG 1700 01/18 1700 AC 01/26 PO 1622 Guaifenesin 10 ML Q6P PRN 01/18 0215 AC 01/25 PO 2003 Insulin Aspart 0 TIDAC/HS 01/21 1200 AC 01/26 SC 1231 Ipratropium [place] 2.5 ML BID 01/18 1130 DC 01/26 INH 1041 Levetiracetam 500 MG DAILY 01/20 1000 AC 01/27 PO 0843 Melatonin 5 MG AT BEDTIME 01/18 2200 AC 01/26 PO 2212 Methyl Salicylate 1 HILARIA TID PRN 01/19 1430 AC 01/20 TOP 0617 Oxybutynin Chloride 10 MG TID 01/21 1000 AC 01/27 PO 0843 Oxycodone/ 1 TAB Q4P PRN 01/18 0930 AC 01/27 Acetaminophen PO 0956 Pantoprazole Sodium 40 MG BID 01/20 1145 AC 01/27 IV 0843 Rivaroxaban 20 MG DAILY 01/23 1630 AC 01/27 PO 0843 Sodium Hypochlorite 1 HILARIA DAILY 01/18 1245 AC 01/27 TOP 1035 Trazodone HCl 50 MG .STK-MED ONE 01/26 2212 DC PO 01/26 2213 Trazodone HCl 25 MG Q12H PRN 01/18 0015 AC 01/26 PO 2216 Vancomycin HCl 125 MG Q6 01/26 1800 AC 01/27 PO 0524 Vancomycin HCl 1,000 MG Q12 01/22 1158 DC 01/26 Sodium Chloride 250 ML IV 0857 Laboratory Tests 01/27 0540 Chemistry Sodium (137 - 145 mmol/L) 134 L Potassium (3.5 - 5.1 mmol/L) 4.4 Chloride (98 - 107 mmol/L) 102 Carbon Dioxide (22 - 30 mmol/L) 31 H Anion Gap (5 - 16) 2 L BUN (9 - 20 mg/dL) 18 Creatinine (0.7 - 1.2 mg/dL) 0.6 L Estimated GFR (>60 ml/min) > 60 BUN/Creatinine Ratio (7 - 25 %) 30.0 H Hematology CBC w Diff MAN DIFF ORDERED WBC (4.8 - 10.8 /CUMM) 18.2 H RBC (4.70 - 6.10 /CUMM) 3.30 L Hgb (14.0 - 18.0 G/DL) 8.5 L Hct (42 - 52 %) 26.6 L MCV (80.0 - 94.0 FL) 80.7 MCH (27.0 - 31.0 PG) 25.8 L RDW (11.5 - 14.5 %) 21.0 H Plt Count (130 - 400 /CUMM) 431 H MPV (7.4 - 10.4 FL) 7.4 Gran % (42.2 - 75.2 %) 85.2 H Lymphocytes % (20.5 - 51.1 %) 6.1 L Monocytes % (1.7 - 9.3 %) 6.9 Eosinophils % (0 - 5 %) 1.8 Basophils % (0.0 - 2.0 %) 0 L Absolute Granulocytes (1.4 - 6.5 /CUMM) 15.5 H Segmented Neutrophils (42.2 - 75.2 %) 83 H Band Neutrophils (0.0 - 5.0 %) 1 Absolute Lymphocytes (1.2 - 3.4 /CUMM) 1.1 L Lymphocytes (20.5 - 51.1 %) 7 L Monocytes (1.7 - 9.3 %) 5 Absolute Monocytes (0.10 - 0.60 /CUMM) 1.3 H Eosinophils (0 - 5.0 %) 3 Absolute Eosinophils (0.0 - 0.7 /CUMM) 0.3 Absolute Basophils (0.0 - 0.2 /CUMM) 0 Metamyelocytes (0.0 - 1.0 %) 1 Platelet Estimate (ADEQUATE) VERIFIED BY SMEAR Polychromasia 1+ Anisocytosis 1+ Stomatocytes 1+ PUBS MCHC (33.0 - 37.0 G/DL) 32.0 L Vital Signs Date Time Temp Pulse Resp B/P Pulse O2 O2 Flow FiO2 Ox Delivery Rate 01/27 0904 94 Nasal 2.0L Cannula 01/27 0600 99.0 100 20 138/72 94 Nasal 2.0L Cannula 01/27 0000 Nasal 2.0L Cannula 01/26 2227 98.1 86 20 140/44 95 01/26 1900 95 Room Air 01/26 1600 95 Nasal 2.0L Cannula 01/26 1537 98.1 86 20 142/44 96 Nasal 2.0L Cannula
[2017-01-27 13:53] VITALS: BP 122/50
[2017-01-27 22:26] VITALS: BP 122/50
[2017-01-28 06:45] VITALS: BP 118/58
--- NOTE | 2017-01-28 07:32 | PN- Housestaff ---
Subjective Follow-up For: # Septic shock on admission, most likely due to pneumonia # Acute blood loss anemia, GI blood loss # Hx of PE # Leaking suprapubic catheter #C. difficile a don't to Subjective: Afebrile, WBCs increase today to 20 this a.m. C diff negavtive, but PCR came back positive on Saturday. Saturating well on 2 L of oxygen, hemodynamically stable. Denies any current complaint. Patient now is on oral vancomycin for C. difficile. His bowel movements is somewhat more formed than yesterday, however it still watery, nonbloody brown stool. Review of Systems Constitutional: Reports: no symptoms. Objective Last 24 Hrs of Vital Signs/I&O Vital Signs Date Time Temp Pulse Resp B/P Pulse O2 O2 Flow FiO2 Ox Delivery Rate 01/28 0645 98.2 90 22 118/58 94 Room Air 01/27 2226 98.8 94 20 122/50 91 Room Air 01/27 1850 92 Room Air 01/27 1353 98.9 94 20 122/50 91 Room Air Intake & Output 01/28 1600 01/28 0800 01/28 0000 Intake Total 1500 Output Total 500 2000 Balance -500 -500 Intake, Oral 1500 Output, Stool 400 100 Output, Urine 100 1900 Physical Exam General Appearance: Alert, Oriented X3, Cooperative, No Acute Distress HEENT: Atraumatic, PERRLA, EOMI, Mucous Membr. moist/pink Cardiovascular: Regular Rate, Normal S1, Normal S2, No Murmurs Lungs: Clear to Auscultation, Normal Air Movement Abdomen: Soft, No Tenderness Extremities: No Clubbing, No Cyanosis, tace edema Current Medications: Current Medications Sig/Mey Start time Last Medication Dose Route Stop Time Status Admin Acetaminophen 1,000 MG Q6P PRN 01/18 0045 AC 01/25 N/A 1 UNIT IV 8 Albuterol Sulfate 3 ML BID 01/18 1130 AC 01/28 INH 1111 Aspirin 81 MG DAILY 01/18 1000 AC 01/28 PO 1026 Atorvastatin Calcium 10 MG 1700 01/18 1700 AC 01/27 PO 1714 Guaifenesin 10 ML .STK-MED ONE 01/28 0021 DC PO 01/28 0022 Guaifenesin 10 ML .STK-MED ONE 01/27 2126 DC PO 01/27 2127 Guaifenesin 10 ML Q6P PRN 01/18 0215 AC 01/28 PO 0024 Insulin Aspart 0 TIDAC/HS 01/21 1200 AC 01/26 SC 1231 Levetiracetam 500 MG DAILY 01/20 1000 AC 01/28 PO 1026 Melatonin 5 MG AT BEDTIME 01/18 2200 AC 01/27 PO 2121 Methyl Salicylate 1 HILARIA TID PRN 01/19 1430 AC 01/20 TOP 0617 Oxybutynin Chloride 10 MG TID 01/21 1000 AC 01/28 PO 1026 Oxycodone/ 1 TAB ONCE ONE 01/28 0130 DC 01/28 Acetaminophen PO 01/28 0131 0133 Oxycodone/ 1 TAB Q4P PRN 01/18 0930 AC 01/28 Acetaminophen PO 1026 Pantoprazole Sodium 40 MG BID 01/20 1145 AC 01/28 IV 1026 Rivaroxaban 20 MG DAILY 01/23 1630 AC 01/28 PO 1026 Sodium Hypochlorite 1 HILARIA DAILY 01/18 1245 AC 01/28 TOP 1027 Trazodone HCl 25 MG Q12H PRN 01/18 0015 AC 01/26 PO 2216 Vancomycin HCl 125 MG Q6 01/26 1800 AC 01/28 PO 1234 Last 24 Hrs of Lab/Perfecto Results Last 24 Hrs of Labs/Mics: Laboratory Tests 01/28/17 0545: Anion Gap 7, Estimated GFR > 60, BUN/Creatinine Ratio 24.3, CBC w Diff NO MAN DIFF REQ, RBC 3.26 L, MCV 80.0, MCH 25.8 L, RDW 21.4 H, MPV 7.1 L, Gran % 83.4 H, Lymphocytes % 6.3 L, Monocytes % 8.2, Eosinophils % 2.0, Basophils % 0.1, Absolute Granulocytes 17.4 H, Absolute Lymphocytes 1.3, Absolute Monocytes 1.7 H, Absolute Eosinophils 0.4, Absolute Basophils 0, PUBS MCHC 32.2 L Assessment/Plan Assessment: # Septic shock on admission. Patient was initial treatment in the ICU, soon after he became stable he was transferred to general medicine. Sputum culture from January 19 came back positive for MRSA he was started on IV vancomycin, his WBCs continue to increase. C. difficile toxin was negative, C. difficile PCR was positive so his IV vancomycin was switched to oral vancomycin to cover C. difficile. On abdominal CT: There was a mild partial small bowel obstruction with transition point in the midabdomen and some bowel wall thickening this bowel loop remains compared with prior exam of 01/18/2017. * Continue oral vancomycin 125 mg every 6 * Repeat CBC tomorrow, if WBCs continued to increase, we may increase to Vanco dose or/and add Flagyl. #Decubitus ulcer * Dr. Jung, plastic surgery is on board * Most likely will need to follow with plastic surgery as an outpatient # Leaking suprapubic catheter * continuing oxybutinin 10 tid, no other intervention needed as per urology # Acute blood loss anemia, GI blood loss H&H is stable post blood transfusion. EGD previously done shows Fundic ulcer and Fundic submucosal lesion. * GI is OK with continuing aspirin * We will continue PPI * As per GI, we will continue Xarelto watch for any symptom or sign of bleeding * Repeat EGD in approximately 2 months to assess for healing # Hx of PE * Continue Xarelto 20 mg daily as patient was cleared by GI * We will watch for any signs or symptoms of GI bleed # DM * Accucheck, novolog tidac/qhs Diet: Diabetic dite DVT ppx: ALPS , Xarelto FULL CODE Problem List: 1. Septic shock Pain Ratin Pain Location: na Pain Goal: Remain pain free Pain Plan: See assessment and plan Tomorrow's Labs & Rationales: CBC to follow-up WBCs Consulting Request: Consulting Specialty: Infectious Disease
[2017-01-28 07:45] LABS: ABSOLUTE BASOPHIL COUNT 0 /CUMM (0.0-0.2); ABSOLUTE EOSINOPHIL COUNT 0.4 /CUMM (0.0-0.7); ABSOLUTE GRANULOCYTE CT 17.4 /CUMM (1.4-6.5); ABSOLUTE LYMPH COUNT 1.3 /CUMM (1.2-3.4); ABSOLUTE MONOCYTE COUNT 1.7 /CUMM (0.10-0.60); BASOPHIL % 0.1 % (0.0-2.0); HEMATOCRIT 26.1 % (42-52); MEAN CORPUSCULAR HGB 25.8 PG (27.0-31.0); MEAN CORPUSCULAR HGB CONC 32.2 G/DL (33.0-37.0); MEAN PLATELET VOLUME 7.1 FL (7.4-10.4); RBC DISTRIBUTION WIDTH 21.4 % (11.5-14.5); RED BLOOD CELL CT 3.26 /CUMM (4.70-6.10); WHITE BLOOD CELL COUNT 20.9 /CUMM (4.8-10.8)
[2017-01-28 08:21] LABS: GRANULOCYTE % 83.4 % (42.2-75.2); PLATELET COUNT 497 /CUMM (130-400)
--- NOTE | 2017-01-28 09:21 | PN- Att Addend ---
Attending Addendum Attending Brief Note Patient is awake and alert and has minimal complaints. Nurses report excessive loose stools and gas in the colostomy bag. General Appearance: Alert, No Acute Distress Skin: Sacral decubitus with wound VAC HEENT: PEERLA Neck: Supple, No JVD Cardiovascular: Regular Rate, Normal S1, Normal S2, No Murmurs Lungs: Clear to Auscultation, Normal Air Movement Abdomen: Normal Bowel Sounds, Soft, No Tenderness Neurological: Normal Speech, Strength at 5/5 X4 Ext, Cranial Nerves 3-12 NL, Reflexes 2+ Extremities: No Clubbing, No Cyanosis, No Edema Assessment Endoscopy demonstrated fundic ulcer without active bleed. Full anticoagulation cleared by GI. He will need a repeat endoscopy in 2 months. MRSA pneumonia with hypoxic respiratory failure. He now has C. difficile confirmed by PCR. IV vancomycin discontinued and currently he is on by mouth vancomycin. He is having excessive loose stools with distention and gas otherwise minimal abdominal pain. Plan Continue by mouth vancomycin Repeat endoscopy in 2 months Continue PPI Urology and plastic surgery evaluation as outpatient Continue other meds Current Medications Sig/Mey Start time Last Medication Dose Route Stop Time Status Admin Acetaminophen 1,000 MG Q6P PRN 01/18 0045 AC 01/25 N/A 1 UNIT IV 2048 Albuterol Sulfate 3 ML BID 01/18 1130 AC 01/27 INH 0854 Aspirin 81 MG DAILY 01/18 1000 AC 01/27 PO 0843 Atorvastatin Calcium 10 MG 1700 01/18 1700 AC 01/27 PO 1714 Guaifenesin 10 ML .STK-MED ONE 01/28 0021 DC PO 01/28 0022 Guaifenesin 10 ML .STK-MED ONE 01/27 2126 DC PO 01/27 2127 Guaifenesin 10 ML Q6P PRN 01/18 0215 AC 01/28 PO 0024 Insulin Aspart 0 TIDAC/HS 01/21 1200 AC 01/26 SC 1231 Levetiracetam 500 MG DAILY 01/20 1000 AC 01/27 PO 0843 Melatonin 5 MG AT BEDTIME 01/18 2200 AC 01/27 PO 2121 Methyl Salicylate 1 HILARIA TID PRN 01/19 1430 AC 01/20 TOP 0617 Oxybutynin Chloride 10 MG TID 01/21 1000 AC 01/27 PO 2121 Oxycodone/ 1 TAB ONCE ONE 01/28 0130 DC 01/28 Acetaminophen PO 01/28 0131 0133 Oxycodone/ 1 TAB Q4P PRN 01/18 0930 AC 01/28 Acetaminophen PO 0602 Pantoprazole Sodium 40 MG BID 01/20 1145 AC 01/27 IV 2121 Rivaroxaban 20 MG DAILY 01/23 1630 AC 01/27 PO 0843 Sodium Hypochlorite 1 HILARIA DAILY 01/18 1245 AC 01/27 TOP 1035 Trazodone HCl 25 MG Q12H PRN 01/18 0015 AC 01/26 PO 2216 Vancomycin HCl 125 MG Q6 01/26 1800 AC 01/28 PO 0538 Laboratory Tests 01/28 0545 Chemistry Sodium (137 - 145 mmol/L) 136 L Potassium (3.5 - 5.1 mmol/L) 4.8 Chloride (98 - 107 mmol/L) 97 L Carbon Dioxide (22 - 30 mmol/L) 33 H Anion Gap (5 - 16) 7 BUN (9 - 20 mg/dL) 17 Creatinine (0.7 - 1.2 mg/dL) 0.7 Estimated GFR (>60 ml/min) > 60 BUN/Creatinine Ratio (7 - 25 %) 24.3 Hematology CBC w Diff NO MAN DIFF REQ WBC (4.8 - 10.8 /CUMM) 20.9 H RBC (4.70 - 6.10 /CUMM) 3.26 L Hgb (14.0 - 18.0 G/DL) 8.4 L Hct (42 - 52 %) 26.1 L MCV (80.0 - 94.0 FL) 80.0 MCH (27.0 - 31.0 PG) 25.8 L RDW (11.5 - 14.5 %) 21.4 H Plt Count (130 - 400 /CUMM) 497 H MPV (7.4 - 10.4 FL) 7.1 L Gran % (42.2 - 75.2 %) 83.4 H Lymphocytes % (20.5 - 51.1 %) 6.3 L Monocytes % (1.7 - 9.3 %) 8.2 Eosinophils % (0 - 5 %) 2.0 Basophils % (0.0 - 2.0 %) 0.1 Absolute Granulocytes (1.4 - 6.5 /CUMM) 17.4 H Absolute Lymphocytes (1.2 - 3.4 /CUMM) 1.3 Absolute Monocytes (0.10 - 0.60 /CUMM) 1.7 H Absolute Eosinophils (0.0 - 0.7 /CUMM) 0.4 Absolute Basophils (0.0 - 0.2 /CUMM) 0 PUBS MCHC (33.0 - 37.0 G/DL) 32.2 L Vital Signs Date Time Temp Pulse Resp B/P Pulse O2 O2 Flow FiO2 Ox Delivery Rate 01/28 0645 98.2 90 22 118/58 94 Room Air 01/27 2226 98.8 94 20 122/50 91 Room Air 01/27 1850 92 Room Air 01/27 1353 98.9 94 20 122/50 91 Room Air 01/27 1229 20 94 Room Air 01/27 1229 20 96 Nasal 2.0L Cannula
--- NOTE | 2017-01-28 11:18 | PN- Infect Dx ---
Subjective Subjective: Afebrile. He offers no complaints. He notes some form to the stool in his colostomy Objective Last 24 Hrs of Vital Signs/I&O Vital Signs Date Time Temp Pulse Resp B/P Pulse O2 O2 Flow FiO2 Ox Delivery Rate 01/28 0645 98.2 90 22 118/58 94 Room Air 01/27 2226 98.8 94 20 122/50 91 Room Air 01/27 1850 92 Room Air 01/27 1353 98.9 94 20 122/50 91 Room Air 01/27 1229 20 94 Room Air 01/27 1229 20 96 Nasal 2.0L Cannula Intake & Output 01/28 1600 01/28 0800 01/28 0000 Intake Total 1500 Output Total 500 2000 Balance -500 -500 Intake, Oral 1500 Output, Stool 400 100 Output, Urine 100 1900 Physical Exam Other Physical Findings: He appears comfortable in no acute distress Lungs are clear Abdomen is soft, nontender with positive bowel sounds; colostomy with stool with some form to it Extremities PICC in the right upper extremity with no inflammation at the site; trace edema both lower extremities Results Last 24 Hours of Lab Results: Laboratory Tests 01/28 0545 Chemistry Sodium (137 - 145 mmol/L) 136 L Potassium (3.5 - 5.1 mmol/L) 4.8 Chloride (98 - 107 mmol/L) 97 L Carbon Dioxide (22 - 30 mmol/L) 33 H Anion Gap (5 - 16) 7 BUN (9 - 20 mg/dL) 17 Creatinine (0.7 - 1.2 mg/dL) 0.7 Estimated GFR (>60 ml/min) > 60 BUN/Creatinine Ratio (7 - 25 %) 24.3 Hematology CBC w Diff NO MAN DIFF REQ WBC (4.8 - 10.8 /CUMM) 20.9 H RBC (4.70 - 6.10 /CUMM) 3.26 L Hgb (14.0 - 18.0 G/DL) 8.4 L Hct (42 - 52 %) 26.1 L MCV (80.0 - 94.0 FL) 80.0 MCH (27.0 - 31.0 PG) 25.8 L RDW (11.5 - 14.5 %) 21.4 H Plt Count (130 - 400 /CUMM) 497 H MPV (7.4 - 10.4 FL) 7.1 L Gran % (42.2 - 75.2 %) 83.4 H Lymphocytes % (20.5 - 51.1 %) 6.3 L Monocytes % (1.7 - 9.3 %) 8.2 Eosinophils % (0 - 5 %) 2.0 Basophils % (0.0 - 2.0 %) 0.1 Absolute Granulocytes (1.4 - 6.5 /CUMM) 17.4 H Absolute Lymphocytes (1.2 - 3.4 /CUMM) 1.3 Absolute Monocytes (0.10 - 0.60 /CUMM) 1.7 H Absolute Eosinophils (0.0 - 0.7 /CUMM) 0.4 Absolute Basophils (0.0 - 0.2 /CUMM) 0 PUBS MCHC (33.0 - 37.0 G/DL) 32.2 L Last 24 Hours of Perfecto Results: No recent cultures Assessment/Plan Impression: Persistent leukocytosis most likely secondary to C. difficile, with the C. difficile PCR positive, now on po Vancomycin Day 2, with the stool in his colostomy becoming somewhat more formed. This should be adequate therapy for his C. difficile, but, if his white blood cell count remains elevated, may need to consider additional or alternative agents. Suggestion: 1. Continue po Vancomycin
[2017-01-28 14:28] VITALS: BP 122/60
[2017-01-28 22:13] VITALS: BP 126/64
[2017-01-29 06:25] VITALS: BP 124/64
--- NOTE | 2017-01-29 07:47 | PN- Housestaff ---
Subjective Follow-up For: # Septic shock on admission, most likely due to pneumonia # Acute blood loss anemia, GI blood loss # Hx of PE # Leaking suprapubic catheter #C. difficile Subjective: Afebrile, hemodynamically stable, WBCs improved to 17. No acute overnight events reported. Patient laying on bed looks relaxed and comfortable. patient denies any abdominal pain, nausea, or vomiting. His colostomy bag is filled with brown nonbloody watery stool. He denies any other complaint. Review of Systems Constitutional: Reports: see HPI. Objective Last 24 Hrs of Vital Signs/I&O Vital Signs Date Time Temp Pulse Resp B/P Pulse O2 O2 Flow FiO2 Ox Delivery Rate 01/29 1024 93 Room Air Room Air 01/29 0800 92 01/29 0625 98.0 92 20 124/64 91 Room Air 01/28 2213 97.8 84 20 126/64 94 Room Air 01/28 1900 92 Room Air 01/28 1428 97.5 81 20 122/60 92 Intake & Output 01/29 1600 01/29 0800 01/29 0000 Intake Total 150 Output Total 1600 1150 1325 Balance -1600 -1000 -1325 Intake, Oral 150 Output, Stool 300 125 Output, Urine 5430 227 3384 Physical Exam General Appearance: Alert, Oriented X3, Cooperative, No Acute Distress Cardiovascular: Regular Rate, Normal S1, Normal S2, No Murmurs Lungs: Clear to Auscultation, Normal Air Movement Abdomen: Soft, No Tenderness, colostomy bag filled with brown, watery nonbloody stool Neurological: Normal Speech Extremities: No Clubbing, No Cyanosis, trace edema Assessment/Plan Assessment: # Septic shock on admission. Patient was initial treatment in the ICU, soon after he became stable he was transferred to general medicine. Sputum culture from January 19 came back positive for MRSA he was started on IV vancomycin, his WBCs continue to increase. C. difficile toxin was negative, C. difficile PCR was positive so his IV vancomycin was stopped and oral vancomycinwas started. On abdominal CT: There was a mild partial small bowel obstruction with transition point in the midabdomen and some bowel wall thickening this bowel loop remains compared with prior exam of 2016. * Continue oral vancomycin 125 mg every 6, will be discharged and instructed to finish a total of 12 days. * Patient is stable, [facility] will [facility] care doctor will follow him. #Decubitus ulcer * Dr. Jung, plastic surgery is on board * Most likely will need to follow with plastic surgery as an outpatient # Leaking suprapubic catheter * continuing oxybutinin 10 tid, no other intervention needed as per urology # Acute blood loss anemia, GI blood loss H&H is stable post blood transfusion. EGD previously done shows Fundic ulcer and Fundic submucosal lesion. * GI is OK with continuing aspirin * We will continue PPI * As per GI, we will continue Xarelto watch for any symptom or sign of bleeding * Repeat EGD in approximately 2 months to assess for healing # Hx of PE * Continue Xarelto 20 mg daily as patient was cleared by GI * We will watch for any signs or symptoms of GI bleed # DM * Accucheck, novolog tidac/qhs Diet: Diabetic dite DVT ppx: ALPS , Xarelto FULL CODE Problem List: 1. Sepsis Pain Ratin Pain Location: back Pain Goal: Remain pain free Pain Plan: See A&P Tomorrow's Labs & Rationales: None as patient most likely discharged today Consulting Request: Consulting Specialty: Infectious Disease
[2017-01-29 07:58] LABS: ABSOLUTE BASOPHIL COUNT 0 /CUMM (0.0-0.2); ABSOLUTE EOSINOPHIL COUNT 0.2 /CUMM (0.0-0.7); ABSOLUTE LYMPH COUNT 1.1 /CUMM (1.2-3.4); ABSOLUTE MONOCYTE COUNT 1.4 /CUMM (0.10-0.60); BASOPHIL % 0.2 % (0.0-2.0); EOSINOPHIL % 1.2 % (0-5); GRANULOCYTE % 84.3 % (42.2-75.2); HEMATOCRIT 25.3 % (42-52); MEAN CORPUSCULAR HGB 25.9 PG (27.0-31.0); MEAN CORPUSCULAR HGB CONC 32.5 G/DL (33.0-37.0); MEAN CORPUSCULAR VOLUME 79.7 FL (80.0-94.0); MEAN PLATELET VOLUME 7.5 FL (7.4-10.4); PLATELET COUNT 474 /CUMM (130-400); RBC DISTRIBUTION WIDTH 21.2 % (11.5-14.5); RED BLOOD CELL CT 3.18 /CUMM (4.70-6.10); WHITE BLOOD CELL COUNT 17.8 /CUMM (4.8-10.8)
--- NOTE | 2017-01-29 09:48 | PN- Att Addend ---
Attending Addendum Attending Brief Note Patient is awake and alert and has minimal complaints. Nurses report excessive loose stools and gas in the colostomy bag. General Appearance: Alert, No Acute Distress Skin: Sacral decubitus with wound VAC HEENT: PEERLA Neck: Supple, No JVD Cardiovascular: Regular Rate, Normal S1, Normal S2, No Murmurs Lungs: Clear to Auscultation, Normal Air Movement Abdomen: Normal Bowel Sounds, Soft, No Tenderness Neurological: Normal Speech, Strength at 5/5 X4 Ext, Cranial Nerves 3-12 NL, Reflexes 2+ Extremities: No Clubbing, No Cyanosis, No Edema Assessment Endoscopy demonstrated fundic ulcer without active bleed. Full anticoagulation cleared by GI. He will need a repeat endoscopy in 2 months. MRSA pneumonia with hypoxic respiratory failure. He now has C. difficile confirmed by PCR. IV vancomycin discontinued and currently he is on by mouth vancomycin. He is having excessive loose stools with distention and gas otherwise minimal abdominal pain. Leukocytosis trending down and patient is clinically stable for discharge. Plan Continue by mouth vancomycin Repeat endoscopy in 2 months Continue PPI Urology and plastic surgery evaluation as outpatient Continue other meds Stable for discharge to care home Current Medications Sig/Mye Start time Last Medication Dose Route Stop Time Status Admin Acetaminophen 1,000 MG Q6P PRN 01/18 0045 AC 01/25 N/A 1 UNIT IV 2047 Albuterol Sulfate 3 ML BID 01/18 1130 AC 01/28 INH 1900 Aspirin 81 MG DAILY 01/18 1000 AC 01/28 PO 1026 Atorvastatin Calcium 10 MG 1700 01/18 1700 AC 01/28 PO 1556 Guaifenesin 10 ML Q6P PRN 01/18 0215 AC 01/29 PO 0519 Insulin Aspart 0 TIDAC/HS 01/21 1200 AC 01/26 SC 1231 Levetiracetam 500 MG DAILY 01/20 1000 AC 01/28 PO 1026 Melatonin 5 MG AT BEDTIME 01/18 2200 AC 01/28 PO 2051 Methyl Salicylate 1 HILARIA TID PRN 01/19 1430 AC 01/20 TOP 0617 Oxybutynin Chloride 10 MG TID 01/21 1000 AC 01/28 PO 205 Oxycodone/ 1 TAB Q4P PRN 01/18 0930 AC 01/29 Acetaminophen PO 0347 Pantoprazole Sodium 40 MG BID 01/20 1145 AC 01/28 IV 2051 Rivaroxaban 20 MG DAILY 01/23 1630 AC 01/28 PO 1026 Sodium Hypochlorite 1 HILARIA DAILY 01/18 1245 AC 01/28 TOP 1027 Trazodone HCl 25 MG Q12H PRN 01/18 0015 AC 01/26 PO 2216 Vancomycin HCl 125 MG Q6 01/26 1800 AC 01/29 PO 0541 Laboratory Tests 01/29 0550 Hematology CBC w Diff NO MAN DIFF REQ WBC (4.8 - 10.8 /CUMM) 17.8 H RBC (4.70 - 6.10 /CUMM) 3.18 L Hgb (14.0 - 18.0 G/DL) 8.2 L Hct (42 - 52 %) 25.3 L MCV (80.0 - 94.0 FL) 79.7 L MCH (27.0 - 31.0 PG) 25.9 L RDW (11.5 - 14.5 %) 21.2 H Plt Count (130 - 400 /CUMM) 474 H MPV (7.4 - 10.4 FL) 7.5 Gran % (42.2 - 75.2 %) 84.3 H Lymphocytes % (20.5 - 51.1 %) 6.2 L Monocytes % (1.7 - 9.3 %) 8.1 Eosinophils % (0 - 5 %) 1.2 Basophils % (0.0 - 2.0 %) 0.2 Absolute Granulocytes (1.4 - 6.5 /CUMM) 15.0 H Absolute Lymphocytes (1.2 - 3.4 /CUMM) 1.1 L Absolute Monocytes (0.10 - 0.60 /CUMM) 1.4 H Absolute Eosinophils (0.0 - 0.7 /CUMM) 0.2 Absolute Basophils (0.0 - 0.2 /CUMM) 0 PUBS MCHC (33.0 - 37.0 G/DL) 32.5 L Vital Signs Date Time Temp Pulse Resp B/P Pulse O2 O2 Flow FiO2 Ox Delivery Rate 01/29 0625 98.0 92 20 124/64 91 Room Air 01/28 2213 97.8 84 20 126/64 94 Room Air 01/28 1900 92 Room Air 01/28 1428 97.5 81 20 122/60 92 01/28 1115 91 Room Air
[2017-01-29] MEDS ORDERED: VANCOMYCIN HCL5 G1 PO (13:03)
[2017-01-29 14:11] VITALS: BP 124/64
== END 2017-01-29 15:11 | DRG 871 ==
LOC: ENRESERVDT → ENRESERVTM → ERH 15:35 → ENPENDDIS 19:01 → 2NB 19:01 → CRI 19:01 → ERHI 19:01 → 2NB 19:01 → CRI 22:35 → 2NB 01-21 20:52
PROVIDERS: Emergency Medicine; Internal Medicine; Internal Medicine Pulmonary Disease; Radiology Diagnostic Radiology; Student in an Organized Health Care Education/Training Program; ADMIT Internal Medicine
PROC: 02HV33Z Insertion of Infusion Device into Superior Vena Cava, Percutaneous Approach (ICD-10-PCS; 2017-01-18)
PROC: B5181ZA Fluoroscopy of Superior Vena Cava using Low Osmolar Contrast, Guidance (ICD-10-PCS; 2017-01-18)
PROC: 0DJ08ZZ Inspection of Upper Intestinal Tract, Via Natural or Artificial Opening Endoscopic (ICD-10-PCS; principal; 2017-01-23)
DX: A41.9 Sepsis, unspecified organism (principal); L89.154 Pressure ulcer of sacral region, stage 4; J96.21 Acute and chronic respiratory failure with hypoxia; R65.21 Severe sepsis with septic shock; J15.212 Pneumonia due to Methicillin resistant Staphylococcus aureus; A04.7 Enterocolitis due to Clostridium difficile; N17.9 Acute kidney failure, unspecified; G82.20 Paraplegia, unspecified; K92.2 Gastrointestinal hemorrhage, unspecified; D62 Acute posthemorrhagic anemia; I69.369 Other paralytic syndrome following cerebral infarction affecting unspecified side; K25.9 Gastric ulcer, unspecified as acute or chronic, without hemorrhage or perforation; Z93.3 Colostomy status; Z86.711 Personal history of pulmonary embolism; Z79.01 Long term (current) use of anticoagulants; I25.10 Atherosclerotic heart disease of native coronary artery without angina pectoris; I10 Essential (primary) hypertension; E78.5 Hyperlipidemia, unspecified; F41.9 Anxiety disorder, unspecified; F32.9 Major depressive disorder, single episode, unspecified; Z85.46 Personal history of malignant neoplasm of prostate
CPT/HCPCS: 2NBP; 2NBSP; 2NSBP; 87184; 87493; CCU; 36415; 74177; 77001; 81001; 82436; 86920; 87040; 87070; 87071; 87086; 87147; 93005; 93010; 94799; 96360; 96361; 96365; 96374; 96375; 99291; C1751; C1769; J0131; J0713; J1642; J1644; J1953; J2185; J2405; J2550; J2765; J3370; J3490; J7040; J7042; P9016

== ENCOUNTER 2017-02-02 11:11 | Inpatient (IN) | payer OTHER, MEDICARE ==
[~2017-02-02] VITALS: Ht 170.2 cm; Wt 78.9 kg
[~2017-02-02 11:11] MED LIST changes: +ALBUTEROL2.5 MG/3 M INH/SOL; +DETROL LA4 M1 PO; +GUAIFENESIN DM S5 ML PO; +LEVAQUIN750 M1 PO; +VANCOMYCIN HCL5 G1 PO; +ZESTRIL10 M1 PO; +ZOFRAN4 M2 PO
--- NOTE | 2017-02-02 11:15 | NUR ---
BIBA FROM SNF FOR AMS AND LOW O2 SATS. 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 CURRENTLY BEING TREATED WITH VANCOMYCIN FOR INFECTION. UPON ARRIVAL TEMP 100.6, SATS 94% ON 2 LITERS. ELEVATED RESP RATE AND PULSE. PER EMS GLUCOSE 116--
--- NOTE | 2017-02-02 11:24 | ED GENERAL ADULT ---
See Addendum History of Present Illness General Chief Complaint: Altered Mental Status Stated Complaint: BIBA FOR AMS Source: patient, EMS Exam Limitations: poor historian Vital Signs & Intake/Output Vital Signs & Intake/Output Vital Signs Date Time Temp Pulse Resp B/P Pulse O2 O2 Flow FiO2 Ox Delivery Rate 02/02 1359 98.6 90 20 95/46 97 Nasal 4.0L Cannula 02/02 1233 99.8 98 22 111/51 99 Nasal 4.0L Cannula 02/02 1149 Nasal 2.0L Cannula 02/02 1115 100.6 116 22 97/49 94 Nasal 2.0L Cannula Allergies Coded Allergies: ibuprofen (UNKNOWN 01/18/17) Reconcile Medications Acetaminophen (Q-Pap) 325 MG TABLET 2 TAB PO Q4H PRN PAIN/TEMP>/100 (Reported ) Acetaminophen (Acephen) 650 MG SUPP.RECT 1 SUPP NV Q4H PRN PAIN/TEMP>100 ( Reported) Aspirin (Ecotrin*) 81 MG TABLET.DR 1 TAB PO DAILY HEART/BLOOD (Reported) Atorvastatin Calcium (Lipitor) 10 MG TABLET 1 TAB PO DAILY CHOLESTEROL ( Reported) Baclofen 10 MG TABLET 1 TAB PO DAILY UNKNOWN (Reported) Benazepril HCl 10 MG TABLET 1 TAB PO DAILY BP (Reported) Bisacodyl 10 MG SUPP.RECT 1 SUP RC PRN CONSTIPATION (Reported) Cyanocobalamin (Vitamin B-12) (Vitamin B-12) 100 MCG TABLET 1 TAB PO DAILY SUPPLEMENT (Reported) Ergocalciferol (Vitamin D2) (Vitamin D2) 50,000 UNIT CAPSULE 1 CAP PO Q30D SUPPLEMENT (Reported) Furosemide (Lasix) 20 MG TABLET 1 TAB PO Q48 DIURETIC (Reported) Ipratropium/Albuterol Sulfate (Iprat-Albut 0.5-3(2.5) MG/3 Ml) 0.5 MG-3 MG (2.5 MG BASE)/3 ML AMPUL.NEB 1 VIAL INH TID RESPIRATORY (Reported) Levetiracetam (Keppra) 500 MG TABLET 1 TAB PO QAM UNKNOWN (Reported) Lisinopril (Zestril) 10 MG TABLET 1 TAB PO DAILY BP (Reported) Magnesium Hydroxide (Milk Of Magnesia) 400 MG/5 ML ORAL.SUSP 30 ML PO DAILY PRN CONSTIPATION (Reported) Melatonin 5 MG TABLET 1 TAB PO QHS SLEEP (Reported) Metformin HCl 500 MG TABLET 1 TAB PO BID DM (Reported) Mirtazapine 15 MG TABLET 0.5 TAB PO QHS UNKNOWN (Reported) Mometasone/Formoterol (Dulera 100 Mcg/5 Mcg Inhaler) 100 MCG-5 MCG/ACTUATION HFA.AER.AD 2 PUF INH BID RESPIRATORY (Reported) Multivitamin (Multi-Day Vitamins) 1 EACH TABLET 1 TAB PO DAILY SUPPLEMENT ( Reported) Na Phos,M-B/Na Phos,Di-Ba (Fleet Enema) 19 GRAM-7 GRAM/118 ML ENEMA 1 E RC DAILY PRN CONSTIPATION (Reported) Jay-3/Dha/Epa/Fish Oil (Fish Oil 1,000 MG Softgel) 1,000 MG (120 MG-180 MG) CAPSULE 1 CAP PO DAILY SUPPLEMENT (Reported) Omeprazole 20 MG CAPSULE.DR 1 CAP PO DAILY GI (Reported) Ondansetron HCl (Zofran) 4 MG TABLET 1 TAB PO Q8H PRN N/V (Reported) Oxycodone HCl 10 MG TABLET 1 TAB PO Q8H PAIN (Reported) Potassium Chloride 20 MEQ TAB.ER.PRT 1 TAB PO QPM SUPPLEMENT (Reported) Protein Supplement (Promod) 946 ML LIQUID 30 ML PO TID SUPPLEMENT (Reported) Psyllium Husk (Metamucil) (Unknown Strength) CAPSULE 1 CAP PO DAILY SUPPLEMENT (Reported) Rivaroxaban (Xarelto) 20 MG TABLET 1 TAB PO DAILY Pumonary Embolism Saccharomyces Boulardii (Florastor) 250 MG CAPSULE 1 TAB PO QHS PROBIOTIC ( Reported) Tolterodine Tartrate (Detrol LA) 4 MG CAP.ER.24H 1 CAP PO DAILY BLADDER ( Reported) Trazodone HCl 50 MG TABLET 0.5 TAB PO Q12H PRN UNKNOWN (Reported) Vancomycin HCl (Vancocin HCl) 125 MG CAPSULE 1 CAP PO Q6 CDIFF (Reported) Triage Note: BIBA FROM SNF FOR AMS AND LOW O2 SATS. 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 CURRENTLY BEING TREATED WITH VANCOMYCIN FOR INFECTION. UPON ARRIVAL TEMP 100.6, SATS 94% ON 2 LITERS. ELEVATED RESP RATE AND PULSE. PER EMS GLUCOSE 116-- Triage Nurses Notes Reviewed? yes HPI: 71 Yo M PMH HTN, HLD, CAD, DM, paraplegia, neurogenic bladder (chronic indwelling zheng) presenting with fever, hypoxia, AMS. Per [facility] paperwork fevers starting today, unknown Tmax. Patient with shortness of breath this morning, EMS called, on arrival saturating low 80s, improved with nasal cannula. Altered mental status starting today, patient less alert than usual, listless, no reports of obtundation and unresponsiveness. Arrival to ED patient complaining of "feeling terrible ", generalized malaise and diffuse weakness. Denies fevers , chest pain, shortness of breath, palpitations, abdominal pain, nausea, vomiting, diarrhea, headache, neck pain, neck stiffness, or new focal neurologic symptoms. Patient has been taking vancomycin at [facility] for? C. difficile. (NANY MULLIGAN,REDD) Past History Travel History Traveled to [place] past 21 day No Medical History Any Pertinent Medical History? see below for history Neurological: PARAPLEGIA STATUS POST SPINAL SHOCK POSTOP EENT: NONE Cardiovascular: CAD, hypertension, hyperlipidemia, ABDOMINAL ANEURYSM Respiratory: asthma, pulmonary embolism Gastrointestinal: GERD Hepatic: NONE Renal: neurogenic bladder, UTI Musculoskeletal: decubitis ulcer (OSTEOMYELITIS) Psychiatric: anxiety, depression Endocrine: DIABETES TYPE 2 Blood Disorders: NONE Cancer(s): prostate cancer PREPAROLE COUNSELING AIDE/Reproductive: NONE History of MRSA: Yes History of VRE: Yes History of CDIFF: Yes Influenza Vaccine: 09/04/16 Surgical History Surgical History: CABG, AAA repair x2 once 2002, and 2013 status post diverting colostomy status post suprapubic cystostomy Psychosocial History Who do you live with Other (see notes) Services at Home Home Health Aide, Nursing What is your primary language Sami Tobacco Use: Quit >30 days ago ETOH Use: denies use Illicit Drug Use: denies illicit drug use Family History Family History, If Any: MOTHER FH: coronary artery disease FH: diabetes mellitus BROTHER FH: diabetes mellitus SISTER Hx Contributory? Yes (REDD AYON MD) Review of Systems Review of Systems Constitutional: Reports: fever, malaise, weakness. EENTM: Reports: no symptoms. Respiratory: Reports: no symptoms. Cardiovascular: Reports: no symptoms. GI: Reports: no symptoms. Genitourinary: Reports: no symptoms. Musculoskeletal: Reports: no symptoms. Skin: Reports: no symptoms. Neurological/Psychological: Reports: no symptoms. Hematologic/Endocrine: Reports: no symptoms. Immunologic/Allergic: Reports: no symptoms. All Other Systems: Reviewed and Negative (REDD AYON MD) Physical Exam Physical Exam General Appearance: well developed/nourished, awake, eyes closed, easily arousable, GCS 14 Head: atraumatic, normal appearance Eyes: Bilateral: normal appearance. Ears, Nose, Throat: normal pharynx, normal ENT inspection Neck: normal inspection, supple, full range of motion Respiratory: chest non-tender, no respiratory distress, crackles, crackles over left lung base Cardiovascular: tachycardia Gastrointestinal: normal bowel sounds, soft, non-tender, ostomy site left abdomen Back: sacral ulcer Extremities: normal inspection Neurologic/Psych: no motor/sensory deficits, awake Comments: Pulmonary: No respiratory distress, good air movement throughout, crackles at left lung base Abdomen: Abdomen soft, nontender to palpation, ostomy site in left abdomen, clean, nonerythematous, light brown stool in ostomy bag Back: Sacral ulcer overlying dressing, minimal erythema, no tenderness to palpation, no apparent discharge Core Measures ACS in differential dx? Yes CVA/TIA Diagnosis: No Severe Sepsis Present: No Septic Shock Present: No (REDD AYON MD) Progress Differential Diagnoses I considered the following diagnoses in my evaluation of the patient: Plan of Care: Orders Procedure Date/time Status LACTIC ACID 02/02 1429 Active Admit to inpatient 02/02 1401 Active BLOOD CULTURE 02/02 1222 Active BLOOD CULTURE 02/02 1129 Active URINALYSIS 02/02 1129 Complete LACTIC ACID 02/02 1129 Complete COMPREHENSIVE METABOLIC PANEL 02/02 1129 Complete CBC WITHOUT DIFFERENTIAL 02/02 1129 Complete EKG 02/02 1129 Active Laboratory Tests 02/02/17 1320: Urine Color YEL, Urine Clarity HAZY H, Urine pH 6.0, Ur Specific [place] 1.020, Urine Protein TRACE H, Urine Ketones NEG, Urine Nitrite NEG, Urine Bilirubin NEG, Urine Urobilinogen 0.2, Ur Leukocyte Esterase MOD H, Ur Microscopic SEDIMENT EXAMINED, Urine RBC 15-25 H, Urine WBC 50-75 H, Ur Epithelial Cells RARE, Urine Bacteria RARE H, Urine Mucus RARE, Micro UA Comment , Urine Hemoglobin MOD H, Urine Glucose NEG 02/02/17 1125: Anion Gap 11, Estimated GFR 50 L, BUN/Creatinine Ratio 27.1 H, Glucose 119 H, Lactic Acid 1.2, Calcium 9.2, Total Bilirubin 0.4, AST 16 L, ALT 30, Alkaline Phosphatase 98, Total Protein 6.6, Albumin 2.6 L, Globulin 4.0, Albumin/ Globulin Ratio 0.7 L, CBC w Diff NO MAN DIFF REQ, RBC 3.36 L, MCV 80.2, MCH 25.8 L, RDW 21.0 H, MPV 7.1 L, Gran % 81.0 H, Lymphocytes % 4.3 L, Monocytes % 14.1 H, Eosinophils % 0.4, Basophils % 0.2, Absolute Granulocytes 11.8 H, Absolute Lymphocytes 0.6 L, Absolute Monocytes 2.1 H, Absolute Eosinophils 0.1, Absolute Basophils 0, PUBS MCHC 32.2 L Microbiology 02/02 1256 BLOOD: Blood Culture - RECD 02/02 1125 BLOOD: Blood Culture - RECD Physician MDM: 71 Yo M PMH HTN, HLD, CAD, DM, paraplegia, neurogenic bladder ( chronic indwelling zheng) presenting with fever, hypoxia, AMS. HR 110s on arrival SBP 90s, remainder of exam as above. DDx: Sepsis with unclear source ( most likely PNA, UTI, wound site, less likely BIOPROCESS ENGINEER, GI. Given 2 L normal saline with improvement in heart rate in 90s, stabilization of blood pressure in 110s systolic. Ceftazidime, vancomycin given IV. PMD remarkable for HPI with creatinine 1.4, elevated BUN, potassium 5.5, no EKG changes, will treat with IV fluids, hold further interventions. CBC with leukocytosis to 14.6. CXR with developing left lower lobe pneumonia. UA taken from Zheng bag, suggestive infection with 50-75 white blood cells per high-power field. Admit for ongoing IV antibiotics, monitoring of blood pressure, and further treatment of sepsis. Plan of care was discussed with the patient who expressed agreement and understanding. D/W Dr. Salinas. (NANY MULLIGAN,REDD) Initial ED EKG: SINUS TACHYCARDIA (NANY MULLIGAN,REDD) Departure Departure Disposition: STILL A PATIENT Condition: Stable Clinical Impression Primary Impression: Fever Qualifiers: Fever type: unspecified Qualified Code: R50.9 - Fever, unspecified Secondary Impressions: Pneumonia Qualifiers: Pneumonia type: due to unspecified organism Laterality: unspecified laterality Lung location: unspecified part of lung Qualified Code: J18.9 - Pneumonia, unspecified organism Sepsis Qualifiers: Sepsis type: sepsis due to unspecified organism Qualified Code: A41.9 - Sepsis, unspecified organism UTI (urinary tract infection) Qualifiers: Urinary tract infection type: catheter-associated UTI Indwelling urinary catheter type: indwelling urethral catheter Encounter type: initial encounter Qualified Codes: T83.511A - Infection and inflammatory reaction due to indwelling urethral catheter, initial encounter; N39.0 - Urinary tract infection , site not specified Referrals: KELSEY MULLIGAN,SLIM Avalos (PCP/Family) Departure Forms: Customer Survey General Discharge Information Admission Note Spoke With: CHARLINE NOEL MD Documentation of Exam: Documentation of any treatments & extenuating circumstances including Concerns Regarding Discharge (functional status, medication knowledge or non-compliance, living conditions, etc.) that warrant an admission rather than observation: [ Patient requires inpatient admission for treatment of UTI and pneumonia with impending septic shock, patient has failed outpatient treatment with PO antibiotics at [facility], presents with impending septic shock requiring IV fluids and IV antibiotics, if discharged patient has high likelihood of decompensating with resultant hypotension and overwhelming infection likely leading to or severe morbidity] (REDD AYON MD) PA/ASSOCIATE PROFESSOR PHYSICIAN Co-Sign Statement Statement: ED Attending supervision documentation- [] I saw and evaluated the patient. I have also reviewed all the pertinent lab results and diagnostic results. I agree with the findings and the plan of care as documented in the PA's/ASSOCIATE PROFESSOR PHYSICIAN's documentation. [] I have reviewed the ED Record and agree with the PA's/ASSOCIATE PROFESSOR PHYSICIAN's documentation. [] Additions or exceptions (if any) to the PAs/ASSOCIATE PROFESSOR PHYSICIAN's note and plan are summarized below: [] Resident Co-Sign Statement Statement: ED Attending supervision documentation- [X] I saw and evaluated the patient. I have also reviewed all the pertinent lab results and diagnostic results. I agree with the findings and the plan of care as documented in the Resident's documentation. [X] I have reviewed the ED Record and agree with the Resident's documentation. [] Additions or exceptions (if any) to the Resident's note and plan are summarized below: [] (BEATRICE MULLIGAN,TIFFANY Coleman) Critical Care Note Critical Care Note Critical Care Time: non-applicable (NANY MULLIGAN,REDD)
[2017-02-02] MEDS ORDERED: VANCOCIN HCL125 MG PO (11:34)
--- NOTE | 2017-02-02 11:36 | NUR ---
PT ARRIVED WITH IVF IN PLACE. LABS AND FIRST SET OF BLOOD CULTURES DRAWN FROM RIGHT A/C SITE. PT LETHARGIC. ANSWERING SOME QUESTIONS BUT NOT ORIENTED TO PLACE AND TIME.
[2017-02-02] MEDS ORDERED: [UNRECOGNIZED DRUG - OTHER] PO (11:40)
[2017-02-02] MEDS ORDERED: PROMOD946 ML PO (11:42)
[2017-02-02 11:54] LABS: ABSOLUTE BASOPHIL COUNT 0 /CUMM (0.0-0.2); ABSOLUTE EOSINOPHIL COUNT 0.1 /CUMM (0.0-0.7); ABSOLUTE GRANULOCYTE CT 11.8 /CUMM (1.4-6.5); ABSOLUTE LYMPH COUNT 0.6 /CUMM (1.2-3.4); ABSOLUTE MONOCYTE COUNT 2.1 /CUMM (0.10-0.60); BASOPHIL % 0.2 % (0.0-2.0); EOSINOPHIL % 0.4 % (0-5); HEMATOCRIT 26.9 % (42-52); MEAN CORPUSCULAR HGB 25.8 PG (27.0-31.0); MEAN CORPUSCULAR HGB CONC 32.2 G/DL (33.0-37.0); MEAN CORPUSCULAR VOLUME 80.2 FL (80.0-94.0); MEAN PLATELET VOLUME 7.1 FL (7.4-10.4); PLATELET COUNT 692 /CUMM (130-400); RED BLOOD CELL CT 3.36 /CUMM (4.70-6.10); WHITE BLOOD CELL COUNT 14.6 /CUMM (4.8-10.8)
--- NOTE | 2017-02-02 11:59 | NUR ---
SATS 92% ON 2L. INCREEASED TO 4 LITERS. SATS 94% ON 4 LITERS
--- NOTE | 2017-02-02 12:32 | NUR ---
PT LOGROLLED FOR LINEN CHANGE. PT WITH WOUND VAC DRESSING TO SACRAL AREA. DID NOT ARRIVE ATTATCHED TO WOUND VAC MACHINE. PT WITH COLOSTOMY AND SUPRAPUBIC TUBE. COLOSTOMY LEAKING AND DRESSING ON SUPRAPUBIC TUBE FALLING OFF.
--- NOTE | 2017-02-02 12:33 | NUR ---
COLOSTOMY APPLIANCE CHANGED DUE TO LEAKAGE. PCXR BEING DONE. PT UNABLE TO HOLD STILL FOR CXY
--- NOTE | 2017-02-02 12:34 | NUR ---
UNABLE TO PERFORM RECTAL TEMP DUE TO RECTUM BEING COVERED BY WOUND VAC
--- NOTE | 2017-02-02 13:31 | NUR ---
IV ABX GIVEN. SECOND LITER OF IVF BOLUS STARTED. PT SOMEWHAT MORE ALERT. ABLE TO VERBALIZE THAT HE KNOWS HE IS AT [facility].
--- NOTE | 2017-02-02 13:35 | RADIOLOGY REPORT ---
EXAMINATION: XR PORTABLE CHEST CLINICAL INFORMATION: Fever and cough. Presumptive diagnosis of pneumonia. COMPARISON: Several prior chest x-rays, most recent of which is dated 01/24/2017. TECHNIQUE: Portable AP semierect view of the chest was obtained. FINDINGS: The patient is status post median sternotomy and CABG surgery. The cardiac mediastinal silhouette is enlarged, unchanged. There is slight volume loss in the left hemithorax with elevation of the left hemidiaphragm. Patchy consolidation is noted in the left mid and lower lung, suspicious for pneumonia. Right lung is well-expanded and shows minimal basilar subsegmental atelectasis. No significant effusion or pneumothorax is seen. Bony structures are unremarkable. Prominent gaseous distention of viscus structure in the left upper quadrant is again noted, shown to be the stomach on CT scan from 01/25/2017. IMPRESSION: Progressive opacity in the left mid and lower lung, suspicious for pneumonia.
--- NOTE | 2017-02-02 14:24 | NUR ---
PT IS MRSA POS
--- NOTE | 2017-02-02 15:28 | NUR ---
REPEAT LACTIC ACID DRAWN AND SENT TO LAB.
--- NOTE | 2017-02-02 15:58 | History & Physical ---
See Addendum BEATRIZ MULLIGAN,[facility] 02/02/17 1557: General Information and HPI MD Statement: I have seen and personally examined YOLANDA SUMMERS and documented this H&P. The patient is a 71 year old M who presented with a patient stated chief complaint of pathology and altered mental status]. Source of Information: patient, family, old records Exam Limitations: clinical condition History of Present Illness: 71/M with PMH of paraplegia, suprapubic catheter, stage IV sacral ulcer with vac on place, ostomy , MRSA, VRE, CAD sp CABG, AAA sp repair X 2 times, HTN, HLD, anxiety, depression, DM, prostate cancer, and PE on xarelto, who was sent from skilled nursing because of fever, altered mental status and lethargic. Patient was recently discharged from [facility] (), after he was treated for sepsis most likely secondary to pneumonia, initially he was treated with Unasyn and cefazolin, patient then had MRSA grown the sputum for which his Abx was switched to IV vancomycin, during the previous admission he developed watery diarrhea, he was C. difficile toxin negative however C. difficile PCR was positive for that reason his IV vancomycin was DC'd and patient was switched to oral vancomycin, patient WBCs and vitals improved after the oral vancomycin, so he was discharged to a skilled nursing on oral vancomycin to finish a total of 10 days. No review of systems can be obtained because he is lethargic, altered and not oriented. Most of the history was obtained from the medical record and his sister. Allergies/Medications Allergies: Coded Allergies: ibuprofen (UNKNOWN 01/18/17) Past History Travel History Traveled to [place] past 21 day No Medical History Neurological: PARAPLEGIA STATUS POST SPINAL SHOCK POSTOP EENT: NONE Cardiovascular: CAD, hypertension, hyperlipidemia, ABDOMINAL ANEURYSM Respiratory: asthma, pulmonary embolism Gastrointestinal: GERD Hepatic: NONE Renal: neurogenic bladder, UTI Musculoskeletal: decubitis ulcer (OSTEOMYELITIS) Psychiatric: anxiety, depression Endocrine: DIABETES TYPE 2 Blood Disorders: NONE Cancer(s): prostate cancer [employer] ENGINEER/Reproductive: NONE History of MRSA: Yes History of VRE: Yes History of CDIFF: Yes Influenza Vaccine: 09/04/16 Surgical History Surgical History: CABG, AAA repair x2 once 2002, and 2013 status post diverting colostomy status post suprapubic cystostomy Past Family/Social History Family History Relations & Conditions if any MOTHER FH: coronary artery disease FH: diabetes mellitus BROTHER FH: diabetes mellitus SISTER Psychosocial History Services at Home: Home Health Aide, Nursing Primary Language: Afghan ETOH Use: denies use Illicit Drug Use: denies illicit drug use Functional Ability ADLs Independent: eating. Needs Assist: dressing, toileting, bathing. Ambulation: non-ambulatory IADLs Needs Assist: shopping, housework, finances, food prep, telephone, transportation, medication admin. Review of Systems Review of Systems Constitutional: Reports: see HPI. Exam & Diagnostic Data Last 24 Hrs of Vital Signs/I&O Vital Signs Date Time Temp Pulse Resp B/P Pulse O2 O2 Flow FiO2 Ox Delivery Rate 02/02 1723 92 18 115/58 96 Nasal 4.0L Cannula 02/02 1602 97.6 85 18 90/51 97 Nasal 4.0L Cannula 02/02 1359 98.6 90 20 95/46 97 Nasal 4.0L Cannula 02/02 1233 99.8 98 22 111/51 99 Nasal 4.0L Cannula 02/02 1149 Nasal 2.0L Cannula 02/02 1115 100.6 116 22 97/49 94 Nasal 2.0L Cannula Intake & Output 02/02 1600 02/02 0800 02/02 0000 Intake Total 2250 Output Total Balance 2250 Intake, IV 2250 Patient 81.647 kg Weight Physical Exam General Appearance Alert, Oriented X3, Cooperative, No Acute Distress Skin lower back ulcer HEENT Atraumatic, PERRLA, EOMI, very dry mucous membrain Cardiovascular Regular Rate, Normal S1, Normal S2, No Murmurs Lungs we cant ask pt to take a deep breath but the is decrease air-entry with over lung base B/L Abdomen Soft, No Tenderness Neurological not alert and not oriented Extremities No Clubbing, No Cyanosis, No Edema Last 24 Hrs of Labs/Perfecto: Laboratory Tests 02/02/17 1920: Sodium Pending, Potassium Pending, Chloride Pending, Carbon Dioxide Pending, Anion Gap Pending, BUN Pending, Creatinine Pending, BUN/Creatinine Ratio Pending , Lactic Acid Pending 02/02/17 1527: Lactic Acid 0.7 02/02/17 1320: Urine Color YEL, Urine Clarity HAZY H, Urine pH 6.0, Ur Specific [place] 1.020, Urine Protein TRACE H, Urine Ketones NEG, Urine Nitrite NEG, Urine Bilirubin NEG, Urine Urobilinogen 0.2, Ur Leukocyte Esterase MOD H, Ur Microscopic SEDIMENT EXAMINED, Urine RBC 15-25 H, Urine WBC 50-75 H, Ur Epithelial Cells RARE, Urine Bacteria RARE H, Urine Mucus RARE, Micro UA Comment , Urine Hemoglobin MOD H, Urine Glucose NEG 02/02/17 1125: Anion Gap 11, Estimated GFR 50 L, BUN/Creatinine Ratio 27.1 H, Glucose 119 H, Lactic Acid 1.2, Calcium 9.2, Total Bilirubin 0.4, AST 16 L, ALT 30, Alkaline Phosphatase 98, Total Protein 6.6, Albumin 2.6 L, Globulin 4.0, Albumin/ Globulin Ratio 0.7 L, CBC w Diff NO MAN DIFF REQ, RBC 3.36 L, MCV 80.2, MCH 25.8 L, RDW 21.0 H, MPV 7.1 L, Gran % 81.0 H, Lymphocytes % 4.3 L, Monocytes % 14.1 H, Eosinophils % 0.4, Basophils % 0.2, Absolute Granulocytes 11.8 H, Absolute Lymphocytes 0.6 L, Absolute Monocytes 2.1 H, Absolute Eosinophils 0.1, Absolute Basophils 0, PUBS MCHC 32.2 L Microbiology 02/02 1557 LOWER RESP: Respiratory Culture - COLB 02/02 1557 LOWER RESP: Gram Stain - COLB 02/02 1320 URINE ROUT: Urine Culture - RECD 02/02 1256 BLOOD: Blood Culture - RECD 02/02 1125 BLOOD: Blood Culture - RECD Assessment/Plan Assessment: #Severe sepsis most likely secondary to HCAP * We will start patient on ceftazidime and vancomycin * We will send for panculture * Aggresive hydration a NS bolus followed by 75 mL per hour NS * Hold all supplements, diuretics, blood pressure medications for now * CBC daily * We will consult ID on the morning * Continue oral vancomycin for C. difficile #back ulcer stage IV * We will consult wound #Hx of PE * continue Xarelto #diabetic * Hold all oral antihyperglycemic medication * Sliding scale insulin * Accu-Cheks * diabetic diet #CAD * continue statin and aspirin #GI ulcer since last admission * Continue PPI #Suprapubic catheter and history of bladder cancer * Continue tolterodine LA Carbohydrate diet DVT prophylaxis Xarelto Full code As Ranked By This Provider Problem List: 1. Paraplegia 2. Fever Qualifiers Fever type: unspecified Qualified Code: R50.9 - Fever, unspecified Core Measures/Miscellaneous Acute Coronary Syndrome ACS Diagnosis: No Cerebrovascular Accident CVA/TIA Diagnosis: No Congestive Heart Failure CHF Diagnosis: No Venous Thromboembolism VTE Risk Factors: Acute medical illness, Age > 40 [facility] prophylaxis d/t: No contraindications No VTE Pharm Prophylaxis d/t: No contraindications VTE Diagnosis: No VTE Type: NONE VTE Confirmed by (Test): NONE Severe Sepsis Severe Sepsis Present: Yes BC x2: Yes Lactic Acid x2: Yes IV ABX Broad Spectrum: Yes NS/LR Started: Yes Septic Shock Septic Shock Present: No Miscellaneous Documentation Attending Case Discussed With: MEKA DAVENPORT MD Primary Care Physician: SLIM COLE MD Patient sees these Specialists ID Level of Patient Care: General Medicine SYDNEE HINDS 02/02/17 1621: General Information and HPI Allergies/Medications Home Med list Acetaminophen (Q-Pap) 325 MG TABLET 2 TAB PO Q4H PRN PAIN/TEMP>/100 (Reported ) Acetaminophen (Acephen) 650 MG SUPP.RECT 1 SUPP WI Q4H PRN PAIN/TEMP>100 ( Reported) Aspirin (Ecotrin*) 81 MG TABLET.DR 1 TAB PO DAILY HEART/BLOOD (Reported) Atorvastatin Calcium (Lipitor) 10 MG TABLET 1 TAB PO DAILY CHOLESTEROL ( Reported) Baclofen 10 MG TABLET 1 TAB PO DAILY spams (Reported) Bisacodyl 10 MG SUPP.RECT 1 SUP RC PRN CONSTIPATION (Reported) Cyanocobalamin (Vitamin B-12) (Vitamin B-12) 100 MCG TABLET 1 TAB PO DAILY SUPPLEMENT (Reported) Ergocalciferol (Vitamin D2) (Vitamin D2) 50,000 UNIT CAPSULE 1 CAP PO Q30D SUPPLEMENT (Reported) Furosemide (Lasix) 20 MG TABLET 1 TAB PO Q48 DIURETIC (Reported) Ipratropium/Albuterol Sulfate (Iprat-Albut 0.5-3(2.5) MG/3 Ml) 0.5 MG-3 MG (2.5 MG BASE)/3 ML AMPUL.NEB 1 VIAL INH TID RESPIRATORY (Reported) Levetiracetam (Keppra) 500 MG TABLET 1 TAB PO QAM UNKNOWN (Reported) Lisinopril (Zestril) 10 MG TABLET 1 TAB PO DAILY BP (Reported) Magnesium Hydroxide (Milk Of Magnesia) 400 MG/5 ML ORAL.SUSP 30 ML PO DAILY PRN CONSTIPATION (Reported) Melatonin 5 MG TABLET 1 TAB PO QHS SLEEP (Reported) Metformin HCl 500 MG TABLET 1 TAB PO BID DM (Reported) Mirtazapine 15 MG TABLET 0.5 TAB PO QHS UNKNOWN (Reported) Mometasone/Formoterol (Dulera 100 Mcg/5 Mcg Inhaler) 100 MCG-5 MCG/ACTUATION HFA.AER.AD 2 PUF INH BID RESPIRATORY (Reported) Multivitamin (Multi-Day Vitamins) 1 EACH TABLET 1 TAB PO DAILY SUPPLEMENT ( Reported) Na Phos,M-B/Na Phos,Di-Ba (Fleet Enema) 19 GRAM-7 GRAM/118 ML ENEMA 1 E RC DAILY PRN CONSTIPATION (Reported) [place]-3/Dha/Epa/Fish Oil (Fish Oil 1,000 MG Softgel) 1,000 MG (120 MG-180 MG) CAPSULE 1 CAP PO DAILY SUPPLEMENT (Reported) Omeprazole 20 MG CAPSULE.DR 1 CAP PO DAILY GI (Reported) Ondansetron HCl (Zofran) 4 MG TABLET 1 TAB PO Q8H PRN N/V (Reported) Oxycodone HCl 10 MG TABLET 1 TAB PO Q8H PAIN (Reported) Potassium Chloride 20 MEQ TAB.ER.PRT 1 TAB PO QPM SUPPLEMENT (Reported) Protein Supplement (Promod) 946 ML LIQUID 30 ML PO TID SUPPLEMENT (Reported) Psyllium Husk (Metamucil) (Unknown Strength) CAPSULE 1 CAP PO DAILY SUPPLEMENT (Reported) Rivaroxaban (Xarelto) 20 MG TABLET 1 TAB PO DAILY Pumonary Embolism Saccharomyces Boulardii (Florastor) 250 MG CAPSULE 1 TAB PO QHS PROBIOTIC ( Reported) Tolterodine Tartrate (Detrol LA) 4 MG CAP.ER.24H 1 CAP PO DAILY BLADDER ( Reported) Trazodone HCl 50 MG TABLET 0.5 TAB PO Q12H PRN UNKNOWN (Reported) Vancomycin HCl (Vancocin HCl) 125 MG CAPSULE 1 CAP PO Q6 CDIFF (Reported) Resident Review Statement Resident Statement: examined this patient, discussed with internal consultant, amended to note Other Findings: 71-year-old male with PMH paraplegia, with a chronic stage IV sacral decubitus with wound vac, ostomy and suprapubic catheter in place, MRSA, VRE treated with daptomycin, and 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 difficile diarrhea, came back from skilled nursing after being discharged about 3 days ago with chief complaint of altered mental status, fever. Upon examination patient was lethargic and not oriented and information was obtained from his sister was a power of commercial attorney as well. She reported that today patient was lethargic and was not himself and according to [facility] 10 notes she had altered mental status and fever and possible cough. Patient still is on oral vancomycin for C. difficile infection. He desaturated on room put on nonrebreather at skilled nursing and was brought to the hospital. Patient denies any pain but he is lethargic and disoriented.vital signs upon admission showed decreased blood pressure of 90/50 which was aggressively treated with IV hydration a 4 L normal saline. Physical exam lethargic and disoriented HEENT Atraumatic, PERRLA, dry mucos Cardiovascular Regular Rate, Normal S1, Normal S2 Lungs decreased breath sounds very limited exam due to uncooperation, crackles on the base of the right lung Abdomen Normal Bowel Sounds, Soft, unction colostomy with very loose stool Extremities pedal Edema,Normal Pulses Normal capillary filling The labs showed increased WBC to 14.7, hemoglobin 8.6 which is at baseline, platelets 697, creatinine 1.4. Baseline at 0.7, lactic acid WNL, k 5.5 cxr: Progressive opacity in the left mid and lower lung, suspicious for pneumonia. Assessment and plan #severe sepsis due to HCAP -start the patient on ceftazidime and vancomycin -Blood cultures, sputum culture, urine culture -aggresive hydration a normal saline bolus and 75 mL per hour normal saline afterwards -Hold all supplements, diuretics, blood pressure medications for now -WBC daily #back ulcer stage IV -put the patient back on wound vac #PE -continue Xarelto #diabetic -hold Metformin, sliding scale insulin, Accu-Cheks, diabetic diet #CAD -continue statin and aspirin #GI ulcer since last admission -Continue PPI #On treatment for C. difficile -Continue oral vancomycin #Suprapubic catheter and history of bladder cancer -Continue tolterodine LA full code for now, no pain medication for now except low-dose Tylenol, diabetic diet, activity prophylaxis mechanical and Xarelto
--- NOTE | 2017-02-02 16:02 | NUR ---
3RD LITER OF NS STARTED. HEART RATE IMPROVING AT 84. AFEBRILE. FIRST LACTIC ACID WNL. SECOND LACTIC PENDING
--- NOTE | 2017-02-02 16:04 | NUR ---
HOUSE STAFF IN TO SEE PT. CHAKA MULLIGAN NOTIFIED OF BLOOD PRESSURE OF 90/51 AND THAT PT IS ON HIS 3RD BOLUS OF IVF.
--- NOTE | 2017-02-02 16:23 | NUR ---
BED ASSIGNMENT 218
--- NOTE | 2017-02-02 16:27 | Admission Certification ---
Admission Certification Certification Statement - As attending physician, I certify that at the time of - admission, based on clinical presentation, severity of - symptoms, need for further diagnostic testing and - therapeutic interventions, and risk of adverse outcomes - without in-hospital treatment, in my clinical assessment, - this patient requires an acute hospital stay for a minimum - of two nights or longer. I have also considered psychsocial - factors such as support system, advanced age, financial - issues, cognitive issues, and failed out-patient treatments, - past re-admission history, safety of patient, and lack of - compliance as applicable. Specific rationale supporting this admission is: Treatment with intravenous antibiotics for pneumonia and possible UTI in a patient with a neurogenic bladder.
--- NOTE | 2017-02-02 16:47 | NUR ---
[facility] [place] [facility]
--- NOTE | 2017-02-02 17:19 | NUR ---
REPORT CALLED TO ROX ON .
--- NOTE | 2017-02-02 17:25 | NUR ---
4TH LITER OF IVF STARTED PRIOR TO LEAVING ED. BLOOD PRESSURE IMPROVING
--- NOTE | 2017-02-02 17:30 | NUR ---
RN RECEIVED REPORT ON PATIENT. RN RELAYED HER CONCERNS TO DR. HENDERSON AND DR. NIELSEN. PT HAS MULTIPLE SOURCES OF INFECTION INCLUDING C.DIFF (TX WITH PO VANCO) PNA, AND LARGE ULCER TO SACRUM. MD'S MADE AWARE. PT'S VS TO BE REASSESSED WHEN PT ARRIVES TO FLOOR. PT HAS BEEN GIVEN 3 IV BOLUSES OF NS. BP MORE STABLE PER MD REPORT. RN FACILITIES SUPERVISOR INFORMED. PENDING PT'S ARRIVAL TO FLOOR.
--- NOTE | 2017-02-02 17:55 | NUR ---
PT TRANSFERRED TO SECOND FLOOR
[2017-02-02 17:58] VITALS: BP 120/40
--- NOTE | 2017-02-02 18:58 | NUR ---
LATE ENTRY: PT ARRIVED TO FLOOR FROM ER. NC NOTED TO BE OFF. O2 REAPPLIED. PT GIVEN REDIRECTION. A&O X2. DISORIENTED TO DATE- BELIEVES IT IS THE MONTH OF "JULY." PT REORIENTED. VS FAIRLY STABLE- SEE VFS. DR. NIELSEN INFORMED OF LATEST BP. SEE ADMISSION ASSESSMENT AND SKIN MAN FOR FURTHER DETAILS. PT ORIENTED TO ROOM AND CALL JULIAN. WILL CONT TO MONITOR.
[2017-02-02 23:00] VITALS: BP 122/50
--- NOTE | 2017-02-03 00:21 | NUR ---
@ 2029 PT BECAME EXREMELY CONFUSED AND STARTED PULLING HIS IV, SUPRAPUBIC TUBE, AND OXYGEN LINE. # [id number] NOTIFIED. ALIYA SOFT WRIST RESTRAINRS ORDERED. NEW IV LINE ESTABLISHED. WILL CONTINUE TO MONITOR.
[2017-02-03 06:00] VITALS: BP 110/56
--- NOTE | 2017-02-03 07:36 | NUR ---
0400 PT CAME OFF RESTRAINS. HE IS A/OX3, CALMER, AND COOPERATIVE. WILL CONTINUE TO MONITOR.
[2017-02-03 07:59] LABS: ABSOLUTE BASOPHIL COUNT 0 /CUMM (0.0-0.2); ABSOLUTE EOSINOPHIL COUNT 0.1 /CUMM (0.0-0.7); ABSOLUTE GRANULOCYTE CT 7.6 /CUMM (1.4-6.5); ABSOLUTE LYMPH COUNT 0.6 /CUMM (1.2-3.4); ABSOLUTE MONOCYTE COUNT 1.4 /CUMM (0.10-0.60); BASOPHIL % 0.2 % (0.0-2.0); EOSINOPHIL % 0.7 % (0-5); GRANULOCYTE % 78.3 % (42.2-75.2); HEMATOCRIT 25.1 % (42-52); MEAN CORPUSCULAR HGB 25.6 PG (27.0-31.0); MEAN PLATELET VOLUME 7.1 FL (7.4-10.4); PLATELET COUNT 630 /CUMM (130-400); RBC DISTRIBUTION WIDTH 20.6 % (11.5-14.5); RED BLOOD CELL CT 3.15 /CUMM (4.70-6.10); WHITE BLOOD CELL COUNT 9.8 /CUMM (4.8-10.8)
--- NOTE | 2017-02-03 08:25 | PN- Housestaff ---
Subjective Follow-up For: Altered mental status and lethargic Watery diarrhea secondary to C. difficile Subjective: Afebrile, hemodynamically stable, no acute overnight events reported. WBCs normalized with hydration. Patient denies any current active complaints. Review of Systems Constitutional: Reports: no symptoms. Objective Last 24 Hrs of Vital Signs/I&O Vital Signs Date Time Temp Pulse Resp B/P Pulse O2 O2 Flow FiO2 Ox Delivery Rate 02/03 1109 91 Nasal 4.0L Cannula 02/03 0800 94 Nasal 4.0L Cannula 02/03 0600 98.5 98 18 110/56 92 Nasal 4.0L Cannula 02/03 0000 92 Nasal 4.0L Cannula 02/02 2300 98.7 96 18 122/50 93 Nasal 4.0L Cannula 02/02 2249 Nasal 4.0L Cannula 02/02 1800 93 Nasal 4.0L Cannula 02/02 1758 99.4 96 20 120/40 93 Nasal 4.0L Cannula 02/02 1723 92 18 115/58 96 Nasal 4.0L Cannula 02/02 1602 97.6 85 18 90/51 97 Nasal 4.0L Cannula Intake & Output 02/03 1600 02/03 0800 02/03 0000 Intake Total 840 1465 Output Total 650 550 Balance 190 915 Intake, IV 600 1225 Intake, Oral 240 240 Output, Stool 200 300 Output, Urine 450 250 Patient 78.925 kg Weight Physical Exam General Appearance: Alert, Oriented X3, Cooperative, No Acute Distress HEENT: Atraumatic, PERRLA, EOMI, Mucous Membr. moist/pink Cardiovascular: Regular Rate, Normal S1, Normal S2, No Murmurs Lungs: wheezing all over both lungs Abdomen: Soft, No Tenderness, colostomy is filled with brown, non-bloody and watery stool Neurological: Normal Speech Extremities: No Clubbing, No Cyanosis, No Edema Current Medications: Current Medications Sig/Mey Start time Last Medication Dose Route Stop Time Status Admin Albuterol Sulfate 3 ML Q4P PRN 02/02 2315 AC 02/03 INH 1109 Aspirin Buffered 81 MG DAILY 02/03 1000 AC 02/03 PO 1010 Atorvastatin Calcium 10 MG DAILY 02/03 1000 AC 02/03 PO 1010 Budesonide/ 2 PUF BID 02/02 220 AC 02/03 Formoterol Fumarate INH 1011 Ceftazidime 1,000 MG IQ8 02/03 0000 DC 02/03 IV 0821 Insulin Aspart 0 TIDAC 02/03 1200 AC 02/03 SC 1225 Insulin Human Regular 0 TIDAC/HS 02/02 2100 DC SC Levetiracetam 500 MG QAM 02/03 1000 AC 02/03 PO 1010 Omeprazole 20 MG DAILY 02/03 1000 AC 02/03 PO 1010 Oxybutynin Chloride 2.5 MG BID 02/02 2200 AC 02/03 PO 1010 Patient Medication 1 UNIT ONE NR 02/02 1700 DC 02/03 [facility] 02/02 1730 0825 Patient Medication 1 UNIT ONE NR 02/02 1700 DC 02/03 [facility] 02/02 1730 0825 Patient Medication 1 UNIT ONE NR 02/02 1700 IN 02/03 [facility] 02/02 1730 0824 Rivaroxaban 20 MG DAILY 02/03 1000 AC 02/03 PO 1010 Sodium Chloride 1,000 ML Q13H 02/02 1730 AC 02/03 IV 0525 Sodium Chloride 1,000 ML BOLUS ONE 02/02 1700 DC 02/02 IV 02/02 1759 1724 Sodium Chloride 1,000 ML BOLUS ONE 02/02 1600 DC 02/02 IV 02/02 1759 1605 Sodium Chloride 1,000 ML BOLUS ONE 02/02 1330 DC 02/02 IV 02/02 1529 1331 Vancomycin HCl 1,000 MG DAILY@1330 02/03 1330 CAN Sodium Chloride 250 ML IV Vancomycin HCl 125 MG Q6 02/02 1800 AC 02/03 PO 1224 Last 24 Hrs of Lab/Perfecto Results Last 24 Hrs of Labs/Mics: Laboratory Tests 02/03/17 0640: Anion Gap 9, Estimated GFR > 60, BUN/Creatinine Ratio 27.8 H, CBC w Diff NO MAN DIFF REQ, RBC 3.15 L, MCV 80.0, MCH 25.6 L, RDW 20.6 H, MPV 7.1 L, Gran % 78.3 H, Lymphocytes % 6.0 L, Monocytes % 14.8 H, Eosinophils % 0.7, Basophils % 0.2, Absolute Granulocytes 7.6 H, Absolute Lymphocytes 0.6 L, Absolute Monocytes 1.4 H, Absolute Eosinophils 0.1, Absolute Basophils 0, PUBS MCHC 32.0 L 02/02/17 1920: Anion Gap 11, Estimated GFR > 60, BUN/Creatinine Ratio 28.2 H, Lactic Acid 0.7 02/02/17 1527: Lactic Acid 0.7 Microbiology 02/02 1557 LOWER RESP: Respiratory Culture - COLB 02/02 1557 LOWER RESP: Gram Stain - COLB Assessment/Plan Assessment: Assessment: #Severe sepsis most likely secondary to C. difficile. Patient presented with hypotension and leukocytosis, both most likely secondary to dehydration given his watery diarrhea in the presence of positive C. difficile PCR. Patient was discharged recently on oral vancomycin. Patient denies any worsening on his cough. * We will DC ceftazidime and vancomycin as per ID * Continue oral vancomycin for C. difficile * panculture pending * Continue IV hydration with 75 mL per hour NS * Hold all supplements, diuretics, blood pressure medications for now * CBC daily * Will follow ID recommendation #back ulcer stage IV * We will consult wound in a.m. #Hx of PE * continue Xarelto #diabetic * Hold all oral antihyperglycemic medication * Sliding scale insulin * Accu-Cheks * diabetic diet #CAD * continue statin and aspirin #GI ulcer since last admission * Continue PPI #Suprapubic catheter and history of bladder cancer * Continue tolterodine LA Carbohydrate diet DVT prophylaxis Xarelto Full code Problem List: 1. Leukocytosis Pain Ratin Pain Location: na Pain Goal: Remain pain free Pain Plan: See A&P Tomorrow's Labs & Rationales: cbc and bep
[2017-02-03 14:17] VITALS: BP 145/58
--- NOTE | 2017-02-03 15:32 | PN- Att Addend ---
MEKA DAVENPORT MD 02/03/17 1528: Attending Addendum Attending Brief Note Mr. Peterson is more alert today. He states he is feeling better. Notes cough but as yet has not been able to produce any sputum. He denies chest pain, shortness of breath, and palpitations. He is afebrile with stable heart and respiratory rates. At pressures are satisfactory. Adequate O2 saturations are being obtained on 4.5 L via nasal cannula. Pulmonary, cardiovascular, and abdominal exams are essentially benign. His WBC is now normal and his renal function is now close to normal. Cultures remain negative. We should continue to follow his cultures and continue his antibiotics. We are continuing sliding-scale insulin coverage and also continuing his other maintenance medications.
[2017-02-03 17:46] VITALS: BP 116/52
[2017-02-03 22:56] VITALS: BP 100/42
[2017-02-04 07:14] VITALS: BP 126/58
--- NOTE | 2017-02-04 07:59 | PN- Att Addend ---
Attending Addendum Attending Brief Note Attending note. The patient looks very tired and weak slightly confused more lethargic on oxygen. Intake & Output 02/04 0800 02/04 0000 02/03 1600 Intake Total 250 1080 1400 Output Total 200 625 375 Balance 50 455 1025 Intake, IV 10 600 600 Intake, Oral 240 480 800 Output, Stool 150 400 250 Output, Urine 50 225 125 Vital Signs Date Time Temp Pulse Resp B/P Pulse O2 O2 Flow FiO2 Ox Delivery Rate 02/04 0714 98.9 78 16 126/58 96 02/04 0000 Nasal 4.0L Cannula 02/03 2256 98.7 96 18 100/42 97 Nasal 4.0L Cannula 02/03 1746 103 116/52 98 Nasal 4.0L Cannula 02/03 1600 95 Nasal 4.0L Cannula 02/03 1417 98.9 110 20 145/58 94 Nasal 4.5L Cannula 02/03 1109 91 Nasal 4.0L Cannula 02/03 0800 94 Nasal 4.0L Cannula Intake & Output 02/04 0800 02/04 0000 02/03 1600 Intake Total 250 1080 1400 Output Total 200 625 375 Balance 50 455 1025 Intake, IV 10 600 600 Intake, Oral 240 480 800 Output, Stool 150 400 250 Output, Urine 50 225 125 On examination patient is awake but confused and lethargic. Neck is supple JVD is not raised S1-S2 is normal Lungs shows diffuse wheezing and rhonchi bilaterally. Abdomen is soft nontender bowel sounds are present. His current colostomy on the left side and a suprapubic catheter. His paraplegic with a large decubitus in the sacrum. Assessment Change of mental status with the [place] problems #1 is the most likely pneumonia with existing of COPD. Get a sputum culture blood cultures and start the patient on IV Rocephin and Zithromax #2 is left leg abnormality secondary to C. difficile colitis also obtaino infectious disease consult The patient on by mouth vancomycin on a tapering dose #3 is paraplegia with a large decubitus ulcer with the ostium myelitis of the sacrum.
--- NOTE | 2017-02-04 08:12 | Cons- Wound Care ---
General Information and HPI Consulting Request Date of Consult: 02/04/17 Requested By: ETHEL MULLIGAN,MEKA Sahu Reason for Consult: Multiple decubitus ulcers present on admission History of Present Illness: Patient is a 71-year-old paraplegic with multiple decubitus ulcers, complicated by osteomyelitis admitted for healthcare associated pneumonia. He had been treated for sacral osteomyelitis. Until recently wound VAC was in place. He is admitted for change in mental status thought secondary to healthcare acquired pneumonia. He continues to have extensive sacral bilateral hip and she'll and right heel ulcers present on admission. Allergies/Medications Allergies: Coded Allergies: ibuprofen (UNKNOWN 01/18/17) Home Med List: Acetaminophen (Q-Pap) 325 MG TABLET 2 TAB PO Q4H PRN PAIN/TEMP>/100 (Reported ) Acetaminophen (Acephen) 650 MG SUPP.RECT 1 SUPP ME Q4H PRN PAIN/TEMP>100 ( Reported) Aspirin (Ecotrin*) 81 MG TABLET.DR 1 TAB PO DAILY HEART/BLOOD (Reported) Atorvastatin Calcium (Lipitor) 10 MG TABLET 1 TAB PO DAILY CHOLESTEROL ( Reported) Baclofen 10 MG TABLET 1 TAB PO DAILY spams (Reported) Bisacodyl 10 MG SUPP.RECT 1 SUP RC PRN CONSTIPATION (Reported) Cyanocobalamin (Vitamin B-12) (Vitamin B-12) 100 MCG TABLET 1 TAB PO DAILY SUPPLEMENT (Reported) Ergocalciferol (Vitamin D2) (Vitamin D2) 50,000 UNIT CAPSULE 1 CAP PO Q30D SUPPLEMENT (Reported) Furosemide (Lasix) 20 MG TABLET 1 TAB PO Q48 DIURETIC (Reported) Ipratropium/Albuterol Sulfate (Iprat-Albut 0.5-3(2.5) MG/3 Ml) 0.5 MG-3 MG (2.5 MG BASE)/3 ML AMPUL.NEB 1 VIAL INH TID RESPIRATORY (Reported) Levetiracetam (Keppra) 500 MG TABLET 1 TAB PO QAM UNKNOWN (Reported) Lisinopril (Zestril) 10 MG TABLET 1 TAB PO DAILY BP (Reported) Magnesium Hydroxide (Milk Of Magnesia) 400 MG/5 ML ORAL.SUSP 30 ML PO DAILY PRN CONSTIPATION (Reported) Melatonin 5 MG TABLET 1 TAB PO QHS SLEEP (Reported) Metformin HCl 500 MG TABLET 1 TAB PO BID DM (Reported) Mirtazapine 15 MG TABLET 0.5 TAB PO QHS UNKNOWN (Reported) Mometasone/Formoterol (Dulera 100 Mcg/5 Mcg Inhaler) 100 MCG-5 MCG/ACTUATION HFA.AER.AD 2 PUF INH BID RESPIRATORY (Reported) Multivitamin (Multi-Day Vitamins) 1 EACH TABLET 1 TAB PO DAILY SUPPLEMENT ( Reported) Na Phos,M-B/Na Phos,Di-Ba (Fleet Enema) 19 GRAM-7 GRAM/118 ML ENEMA 1 E RC DAILY PRN CONSTIPATION (Reported) [place]-3/Dha/Epa/Fish Oil (Fish Oil 1,000 MG Softgel) 1,000 MG (120 MG-180 MG) CAPSULE 1 CAP PO DAILY SUPPLEMENT (Reported) Omeprazole 20 MG CAPSULE.DR 1 CAP PO DAILY GI (Reported) Ondansetron HCl (Zofran) 4 MG TABLET 1 TAB PO Q8H PRN N/V (Reported) Oxycodone HCl 10 MG TABLET 1 TAB PO Q8H PAIN (Reported) Potassium Chloride 20 MEQ TAB.ER.PRT 1 TAB PO QPM SUPPLEMENT (Reported) Protein Supplement (Promod) 946 ML LIQUID 30 ML PO TID SUPPLEMENT (Reported) Psyllium Husk (Metamucil) (Unknown Strength) CAPSULE 1 CAP PO DAILY SUPPLEMENT (Reported) Rivaroxaban (Xarelto) 20 MG TABLET 1 TAB PO DAILY Pumonary Embolism Saccharomyces Boulardii (Florastor) 250 MG CAPSULE 1 TAB PO QHS PROBIOTIC ( Reported) Tolterodine Tartrate (Detrol LA) 4 MG CAP.ER.24H 1 CAP PO DAILY BLADDER ( Reported) Trazodone HCl 50 MG TABLET 0.5 TAB PO Q12H PRN UNKNOWN (Reported) Vancomycin HCl (Vancocin HCl) 125 MG CAPSULE 1 CAP PO Q6 CDIFF (Reported) Review of Systems Review of Systems: Patient is immobile Past History Travel History Traveled to [place] past 21 day No Medical History Blood Transfusion Hx: Yes Neurological: PARAPLEGIA STATUS POST SPINAL SHOCK POSTOP EENT: NONE Cardiovascular: CAD, hypertension, hyperlipidemia, ABDOMINAL ANEURYSM Respiratory: asthma, pulmonary embolism Gastrointestinal: GERD Hepatic: NONE Renal: neurogenic bladder, UTI Musculoskeletal: decubitis ulcer (OSTEOMYELITIS) Psychiatric: anxiety, depression Endocrine: DIABETES TYPE 2 Blood Disorders: NONE Cancer(s): prostate cancer 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 Acute Rehab Services at Home: Home Health Aide, Nursing Primary Language: Kazakh Smoking Status: Never Smoked ETOH Use: denies use Illicit Drug Use: denies illicit drug use Functional Ability ADLs Independent: eating. Needs Assist: dressing, toileting, bathing. Ambulation: non-ambulatory IADLs Needs Assist: shopping, housework, finances, food prep, telephone, transportation, medication admin. Exam & Diagnostic Data Vital Signs and I&O Vital Signs Result Date Time O2 Delivery Nasal Cannula 02/04 806 O2 Flow Rate 4.0L 02/04 806 Pulse Ox 96 02/04 714 B/P 126/58 02/04 714 Temp 98.9 02/04 714 Pulse 78 02/04 714 Resp 16 02/04 07 Intake & Output 02/04 0000 02/03 1600 02/03 0800 Intake Total 1080 1400 840 Output Total 625 375 650 Balance 455 1025 190 Intake, IV 600 600 600 Intake, Oral 480 800 240 Output, Stool 400 250 200 Output, Urine 225 125 450 Exam of the right issue shows there to be approximately 2 x 2 centimeter unstageable ulcer with 100% yellow slough present on admission. Over the left hip is a small approximately 1.5 x 1.5 cm ulcer with yellow fill reservoir admission an unstageable. Over the sacrum is a large approximately 15 x 8 cm stage IV pressure ulcer present on admission with significant undermining there does not appear to be exposed bone. Over the right heel is a area of nonblanching erythema measuring approximately 7 x 5 cm consistent with stage I pressure ulcer present on admission Assessment/Plan Impression/Plan: 71-year-old paraplegic with chronic recurrent pressure ulcers. The right ischial ulcer would benefit from debridement. The sacral ulcer appears clear and exposed bone appears to have been covered through the use of wound VAC. The right heel pressure ulcer requires aggressive offloading. Recommend for decubitus ulcer quarter strength Dakin's packing. Patient would benefit from Clinitron bed. Consider surgical debridement of right she'll wound. Right heel should be offloaded from the bed if this is not possible Multi-Podus boot would be appropriate Consult Acknowledgment - Thank you for your consult request.
--- NOTE | 2017-02-04 08:23 | PN- Housestaff ---
See Addendum Subjective Follow-up For: -Altered mental status and lethargic -Watery diarrhea secondary to C. difficile -Questionable pneumonia Subjective: Afebrile, hemodynamically stable, no acute overnight events reported. Patient did not sleep well last night because of repeated interruptions. Patient denies dyspnea, chest pain, or any worsening of his baseline cough. He is saturating well on 4 L NC. His colostomy bag is filled with watery brown nonbloody stool, however it's slightly better than yesterday. He denies any other active complaints Review of Systems Constitutional: Reports: see HPI. Objective Last 24 Hrs of Vital Signs/I&O Vital Signs Date Time Temp Pulse Resp B/P Pulse O2 O2 Flow FiO2 Ox Delivery Rate 02/04 0806 Nasal 4.0L Cannula 02/04 0714 98.9 78 16 126/58 96 02/04 0000 Nasal 4.0L Cannula 02/03 2256 98.7 96 18 100/42 97 Nasal 4.0L Cannula 02/03 1746 103 116/52 98 Nasal 4.0L Cannula 02/03 1600 95 Nasal 4.0L Cannula 02/03 1417 98.9 110 20 145/58 94 Nasal 4.5L Cannula 02/03 1109 91 Nasal 4.0L Cannula Intake & Output 02/04 1600 02/04 0800 02/04 0000 Intake Total 250 1080 Output Total 200 625 Balance 50 455 Intake, IV 10 600 Intake, Oral 240 480 Output, Stool 150 400 Output, Urine 50 225 Physical Exam General Appearance: Alert, Oriented X3, Cooperative, No Acute Distress HEENT: Atraumatic, PERRLA, EOMI, Mucous Membr. moist/pink Cardiovascular: Regular Rate, Normal S1, Normal S2, No Murmurs Lungs: patient refused leaning forward for a full respiratory auscultation from the back. He has decreased air entry on the right anteriorly and laterally when compared to the left. No wheezing or rhonchi can be appreciated Abdomen: Soft, No Tenderness, colostomy bag filled with brown, nonbloody, watery stool Neurological: Normal Speech Extremities: No Clubbing, No Cyanosis, trce LE edema B/L Current Medications: Current Medications Sig/Mey Start time Last Medication Dose Route Stop Time Status Admin Albuterol Sulfate 3 ML Q4P PRN 02/02 2315 AC 04/16 INH 1109 Aspirin Buffered 81 MG DAILY 02/03 1000 AC 02/03 PO 1010 Atorvastatin Calcium 10 MG DAILY 02/03 1000 AC 02/03 PO 1010 Budesonide/ 2 PUF BID 02/02 2200 AC 02/03 Formoterol Fumarate INH 2201 Ceftazidime 1,000 MG IQ8 02/03 0000 DC 02/03 IV 0821 Insulin Aspart 0 TIDAC 02/03 1200 AC 02/03 SC 1225 Levetiracetam 500 MG QAM 02/03 1000 AC 02/03 PO 1010 Omeprazole 20 MG DAILY 02/03 1000 AC 02/03 PO 1010 Oxybutynin Chloride 2.5 MG BID 02/02 2200 AC 02/03 PO 2202 Rivaroxaban 20 MG DAILY 02/03 1000 AC 02/03 PO 1010 Sodium Chloride 1,000 ML Q13H 02/02 1730 AC 02/04 IV 0742 Vancomycin HCl 1,000 MG DAILY@1330 02/03 1330 CAN Sodium Chloride 250 ML IV Vancomycin HCl 125 MG Q6 02/02 1800 AC 02/04 PO 0520 Last 24 Hrs of Lab/Perfecto Results Last 24 Hrs of Labs/Mics: Laboratory Tests 02/04/17 0615: Sodium Pending, Potassium Pending, Chloride Pending, Carbon Dioxide Pending, Anion Gap Pending, BUN Pending, Creatinine Pending, BUN/Creatinine Ratio Pending , CBC w Diff Pending, WBC Pending, RBC Pending, Hgb Pending, Hct Pending, MCV Pending, MCH Pending, RDW Pending, Plt Count Pending, MPV Pending, PUBS MCHC Pending Assessment/Plan Assessment: Assessment: #Severe sepsis most likely secondary to C. difficile. Patient presented with hypotension and leukocytosis, both most likely secondary to dehydration given his watery diarrhea in the presence of positive C. difficile PCR. Patient was discharged recently on oral vancomycin. Patient denies any worsening on his cough. His leukocytosis improved with hydration. * Continue oral vancomycin for C. difficile * panculture pending * Continue IV hydration with 75 mL per hour NS * Hold all supplements, diuretics, blood pressure medications for now * CBC daily * Will follow ID recommendation #GI ulcer s/p EGD EGD that was done earlier this month, showed Fundic ulcer and Fundic submucosal lesion. GI recommended starting patient back on Xarelto and aspirin and to watch for GI symptoms. Patient had isolated H&H dropped from 8 yesterday to 7.2 today. Patient has no obvious source of bleeding. * We will send for type and screen * We'll transfuse 1 packed RBCs * Hold Xarelto for now because of dropping H&H * GI already consulted * Continue PPI #Hx of PE * Hold Xarelto for now because of dropping H&H #diabetic * Hold all oral antihyperglycemic medication * Sliding scale insulin * Accu-Cheks * diabetic diet #CAD * continue statin and aspirin #Suprapubic catheter and history of bladder cancer * Continue tolterodine LA #back ulcer stage IV * We will consult wound Carbohydrate diet DVT prophylaxis Xarelto Full code Problem List: 1. Sepsis Pain Ratin Pain Location: na Pain Goal: Remain pain free Pain Plan: See A&P Tomorrow's Labs & Rationales: CBC for WBCs BEP for renal function and minerals
[2017-02-04 08:25] LABS: ABSOLUTE BASOPHIL COUNT 0 /CUMM (0.0-0.2); ABSOLUTE EOSINOPHIL COUNT 0.2 /CUMM (0.0-0.7); ABSOLUTE GRANULOCYTE CT 7.4 /CUMM (1.4-6.5); ABSOLUTE LYMPH COUNT 0.9 /CUMM (1.2-3.4); ABSOLUTE MONOCYTE COUNT 1.8 /CUMM (0.10-0.60); BASOPHIL % 0.4 % (0.0-2.0); EOSINOPHIL % 1.7 % (0-5); GRANULOCYTE % 72.2 % (42.2-75.2); MEAN CORPUSCULAR HGB 25.7 PG (27.0-31.0); MEAN CORPUSCULAR HGB CONC 32.3 G/DL (33.0-37.0); MEAN CORPUSCULAR VOLUME 79.5 FL (80.0-94.0); MEAN PLATELET VOLUME 7.1 FL (7.4-10.4); PLATELET COUNT 608 /CUMM (130-400); RBC DISTRIBUTION WIDTH 20.1 % (11.5-14.5); WHITE BLOOD CELL COUNT 10.3 /CUMM (4.8-10.8)
[2017-02-04 08:43] LABS: HEMATOCRIT 22.3 % (42-52)
--- NOTE | 2017-02-04 09:42 | NUR ---
PT IS ON SIZEWISE BED TO OFF LOAD PRESSURE TO HIS WOUNDS. HE REFUSES CLINITRON BED.
[2017-02-04 12:10] VITALS: BP 132/48
--- NOTE | 2017-02-04 13:02 | Cons- Infect Disease ---
General Information and HPI Consulting Request Date of Consult: 02/04/17 Requested By: SLIM COLE MD Reason for Consult: Rule out sepsis Source of Information: patient, old records History of Present Illness: This is a 71-year-old man, assisted resident, with diabetes, coronary artery disease, recently diagnosed with a pulmonary embolism and paraplegia following spinal shock after surgery for an aortic aneurysm 4 years prior to admission, status post placement of a suprapubic cystostomy and diverting colostomy over 3 months prior to admission, with underlying osteomyelitis treated with multiple courses of antibiotics, most recently 3 months prior to admission after he was hospitalized with Group G strep sepsis, with an ostectomy also performed at that time, treated with a ten-day course of Levaquin 4 weeks prior to admission for presumed pneumonia, hospitalized 3 weeks prior to admission with hypotension, tachycardia and hypoxia, felt to be secondary to sepsis from pneumonia, treated with broad-spectrum antibiotics with improvement, with MRSA isolated from the sputum, felt to be of unclear significance initially, but with his hospital course complicated by a GI bleed secondary to a fundic ulcer, persistent leukocytosis, thought possibly secondary to the MRSA, for which he was changed to IV Vancomycin, and with watery stools, with a C. difficile toxin negative but PCR positive, treated with oral Vancomycin with a slight drop in his white blood cell count, discharged to the rehabilitation facility on this medication, readmitted on February 02, just 4 days after discharge, with an altered mental status and hypoxia. On admission he was febrile to 100.6. O2 sat was 94% on 2 L. Blood pressure was 97/49. Laboratory data revealed a white blood cell count of 15,000, BUN/creatinine 38 and 1.4 with normal liver enzymes. He was given 4 L of fluid with gradual improvement in his blood pressure. He was also given doses of IV Vancomycin and Ceftazidime and continued on oral Vancomycin. He defervesced and his white blood cell count normalized overnight. On February 03 his IV antibiotics were discontinued and he was continued on oral Vancomycin alone. He has remained afebrile and white blood cell count has remained normal. He denies any decreased oral intake at the assisted and states that his stools were formed there, though they have become liquid since admission. He reports a chronic cough, unchanged from his usual. He denies any chest pain or increased shortness of breath. He has no abdominal discomfort. He still reports leakage around his suprapubic catheter, which has been a problem since its placement. Allergies/Medications Allergies: Coded Allergies: ibuprofen (UNKNOWN 01/18/17) Home Med List: Acetaminophen (Q-Pap) 325 MG TABLET 2 TAB PO Q4H PRN PAIN/TEMP>/100 (Reported ) Acetaminophen (Acephen) 650 MG SUPP.RECT 1 SUPP NC Q4H PRN PAIN/TEMP>100 ( Reported) Aspirin (Ecotrin*) 81 MG TABLET.DR 1 TAB PO DAILY HEART/BLOOD (Reported) Atorvastatin Calcium (Lipitor) 10 MG TABLET 1 TAB PO DAILY CHOLESTEROL ( Reported) Baclofen 10 MG TABLET 1 TAB PO DAILY spams (Reported) Bisacodyl 10 MG SUPP.RECT 1 SUP RC PRN CONSTIPATION (Reported) Cyanocobalamin (Vitamin B-12) (Vitamin B-12) 100 MCG TABLET 1 TAB PO DAILY SUPPLEMENT (Reported) Ergocalciferol (Vitamin D2) (Vitamin D2) 50,000 UNIT CAPSULE 1 CAP PO Q30D SUPPLEMENT (Reported) Furosemide (Lasix) 20 MG TABLET 1 TAB PO Q48 DIURETIC (Reported) Ipratropium/Albuterol Sulfate (Iprat-Albut 0.5-3(2.5) MG/3 Ml) 0.5 MG-3 MG (2.5 MG BASE)/3 ML AMPUL.NEB 1 VIAL INH TID RESPIRATORY (Reported) Levetiracetam (Keppra) 500 MG TABLET 1 TAB PO QAM UNKNOWN (Reported) Lisinopril (Zestril) 10 MG TABLET 1 TAB PO DAILY BP (Reported) Magnesium Hydroxide (Milk Of Magnesia) 400 MG/5 ML ORAL.SUSP 30 ML PO DAILY PRN CONSTIPATION (Reported) Melatonin 5 MG TABLET 1 TAB PO QHS SLEEP (Reported) Metformin HCl 500 MG TABLET 1 TAB PO BID DM (Reported) Mirtazapine 15 MG TABLET 0.5 TAB PO QHS UNKNOWN (Reported) Mometasone/Formoterol (Dulera 100 Mcg/5 Mcg Inhaler) 100 MCG-5 MCG/ACTUATION HFA.AER.AD 2 PUF INH BID RESPIRATORY (Reported) Multivitamin (Multi-Day Vitamins) 1 EACH TABLET 1 TAB PO DAILY SUPPLEMENT ( Reported) Na Phos,M-B/Na Phos,Di-Ba (Fleet Enema) 19 GRAM-7 GRAM/118 ML ENEMA 1 E RC DAILY PRN CONSTIPATION (Reported) [place]-3/Dha/Epa/Fish Oil (Fish Oil 1,000 MG Softgel) 1,000 MG (120 MG-180 MG) CAPSULE 1 CAP PO DAILY SUPPLEMENT (Reported) Omeprazole 20 MG CAPSULE.DR 1 CAP PO DAILY GI (Reported) Ondansetron HCl (Zofran) 4 MG TABLET 1 TAB PO Q8H PRN N/V (Reported) Oxycodone HCl 10 MG TABLET 1 TAB PO Q8H PAIN (Reported) Potassium Chloride 20 MEQ TAB.ER.PRT 1 TAB PO QPM SUPPLEMENT (Reported) Protein Supplement (Promod) 946 ML LIQUID 30 ML PO TID SUPPLEMENT (Reported) Psyllium Husk (Metamucil) (Unknown Strength) CAPSULE 1 CAP PO DAILY SUPPLEMENT (Reported) Rivaroxaban (Xarelto) 20 MG TABLET 1 TAB PO DAILY Pumonary Embolism Saccharomyces Boulardii (Florastor) 250 MG CAPSULE 1 TAB PO QHS PROBIOTIC ( Reported) Tolterodine Tartrate (Detrol LA) 4 MG CAP.ER.24H 1 CAP PO DAILY BLADDER ( Reported) Trazodone HCl 50 MG TABLET 0.5 TAB PO Q12H PRN UNKNOWN (Reported) Vancomycin HCl (Vancocin HCl) 125 MG CAPSULE 1 CAP PO Q6 CDIFF (Reported) Past History Travel History Traveled to [place] past 21 day No Medical History Blood Transfusion Hx: Yes Neurological: PARAPLEGIA STATUS POST SPINAL SHOCK POSTOP EENT: NONE Cardiovascular: CAD, hypertension, hyperlipidemia, ABDOMINAL ANEURYSM Respiratory: asthma, pulmonary embolism Gastrointestinal: GERD Hepatic: NONE Renal: neurogenic bladder, UTI Musculoskeletal: decubitis ulcer (OSTEOMYELITIS) Psychiatric: anxiety, depression Endocrine: DIABETES TYPE 2 Blood Disorders: NONE Cancer(s): prostate cancer 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 Acute Rehab Services at Home: Home Health Aide, Nursing Primary Language: Turkish Smoking Status: Never Smoked ETOH Use: denies use Illicit Drug Use: denies illicit drug use Functional Ability ADLs Independent: eating. Needs Assist: dressing, toileting, bathing. Ambulation: non-ambulatory IADLs Needs Assist: shopping, housework, finances, food prep, telephone, transportation, medication admin. Review of Systems Review of Systems All Other Systems: Reviewed and Negative Exam & Diagnostic Data Last 24 Hrs of Vital Signs/I&O Vital Signs Date Time Temp Pulse Resp B/P Pulse O2 O2 Flow FiO2 Ox Delivery Rate 02/04 1237 99.9 02/04 0806 Nasal 4.0L Cannula 02/04 0714 98.9 78 16 126/58 96 02/04 0000 Nasal 4.0L Cannula 02/03 2256 98.7 96 18 100/42 97 Nasal 4.0L Cannula 02/03 1746 103 116/52 98 Nasal 4.0L Cannula 02/03 1600 95 Nasal 4.0L Cannula 02/03 1417 98.9 110 20 145/58 94 Nasal 4.5L Cannula Intake & Output 02/04 1600 02/04 0800 02/04 0000 Intake Total 250 1080 Output Total 200 625 Balance 50 455 Intake, IV 10 600 Intake, Oral 240 480 Output, Stool 150 400 Output, Urine 50 225 Physical Exam Other Physical Findings: He is awake and alert in no acute distress but appears more cachectic and chronically ill. He is afebrile. Skin reveals no rash. HEENT exam is negative. Neck is supple with no adenopathy. Lungs bilateral rhonchi. Heart regular rhythm with no murmur. Abdomen is soft, nontender with positive bowel sounds; colostomy with liquid stool; suprapubic catheter with no inflammation at the site. Back large sacral decubitus mostly clean with minimal necrosis, no purulence and with no surrounding erythema. Extremities 1+ edema both lower extremities. Neuro paraplegia. Last 24 Hours of Lab Results: Laboratory Tests 02/04 0615 Chemistry Sodium (137 - 145 mmol/L) 134 L Potassium (3.5 - 5.1 mmol/L) 4.0 Chloride (98 - 107 mmol/L) 100 Carbon Dioxide (22 - 30 mmol/L) 24 Anion Gap (5 - 16) 11 BUN (9 - 20 mg/dL) 17 Creatinine (0.7 - 1.2 mg/dL) 0.9 Estimated GFR (>60 ml/min) > 60 BUN/Creatinine Ratio (7 - 25 %) 18.9 Hematology CBC w Diff NO MAN DIFF REQ WBC (4.8 - 10.8 /CUMM) 10.3 RBC (4.70 - 6.10 /CUMM) 2.80 L Hgb (14.0 - 18.0 G/DL) 7.2 *L Hct (42 - 52 %) 22.3 L MCV (80.0 - 94.0 FL) 79.5 L MCH (27.0 - 31.0 PG) 25.7 L RDW (11.5 - 14.5 %) 20.1 H Plt Count (130 - 400 /CUMM) 608 H MPV (7.4 - 10.4 FL) 7.1 L Gran % (42.2 - 75.2 %) 72.2 Lymphocytes % (20.5 - 51.1 %) 8.6 L Monocytes % (1.7 - 9.3 %) 17.1 H Eosinophils % (0 - 5 %) 1.7 Basophils % (0.0 - 2.0 %) 0.4 Absolute Granulocytes (1.4 - 6.5 /CUMM) 7.4 H Absolute Lymphocytes (1.2 - 3.4 /CUMM) 0.9 L Absolute Monocytes (0.10 - 0.60 /CUMM) 1.8 H Absolute Eosinophils (0.0 - 0.7 /CUMM) 0.2 Absolute Basophils (0.0 - 0.2 /CUMM) 0 PUBS MCHC (33.0 - 37.0 G/DL) 32.3 L Last 24 Hours of Perfecto Results: Blood cultures 2 February 02 negative Urine culture February 02 greater than 100,000 colonies of Pseudomonas sensitive to all antibiotics tested Diagnostic Data Recent Imaging Findings: Chest x-ray February 02, personally reviewed, reveals slight volume loss in left hemithorax with elevation left diaphragm; patchy density in the left mid and lower lung Assessment/Plan Assessment/Plan Impression: This is a 71-year-old man with paraplegia, diabetes, with a chronic sacral decubitus, treated for osteomyelitis with several courses of antibiotics, recently hospitalized with sepsis, initially attributed to pneumonia but felt subsequently to be secondary to C. difficile, with his toxin test negative but PCR positive, discharged on oral Vancomycin with a decrease in his white blood cell count, readmitted just 4 days after discharge with an altered mental status and hypoxia, found to have a low-grade fever and a mild leukocytosis, which have resolved with fluids. He has several possible sources of infection including the lungs, with the recent isolation of MRSA from the sputum and a chronic left lower lobe density on chest x-ray, though his respiratory status is relatively stable and he has no new respiratory symptoms, the urinary tract, with the positive urine culture, though, with the suprapubic catheter, suspect this represents colonization, the decubitus, though this looks relatively clean, and C. difficile, for which he remains on oral Vancomycin, now Day 9 of treatment. His hypotension appears to have responded to fluids, and the possibility that he was dehydrated from his diarrhea must be considered. His H&H has decreased, raising concern for a recurrent GI bleed, though he is chronically anemic. Suggestion: 1. Await GI evaluation 2. Urology evaluation regarding his persistent leakage from the suprapubic tube 3. Ensure adequate po intake 4. Continue oral Vancomycin Consult Acknowledgment - Thank you for your consult request.
[2017-02-04 13:40] VITALS: BP 122/42
--- NOTE | 2017-02-04 15:27 | Cons- Gastroenterology ---
General Information and HPI Consulting Request Date of Consult: 02/04/17 Requested By: KELSEY MULLIGAN,SLIM Avalos Reason for Consult: History of ulcer and anemia. c diff colitis. Source of Information: patient Exam Limitations: no limitations History of Present Illness: Mr. Mandujano is a 71-year-old male with multiple medical problems including paraplegia, suprapubic catheter, stage IV sacral ulcer with vac on place, ostomy , MRSA, VRE, CAD sp CABG, AAA sp repair X 2 times, HTN, HLD, anxiety, depression , DM, prostate cancer, and PE on xarelto and a recent diagnosis of PUD on an EGD earlier this month who re-presented to on 02/02/17 from a correction to finish a course of abx for pneumonia and he was also given oral vancomycin for a positive c diff PCR. On admission he was placed on broad-spectrum antibiotics and was continued on oral vancomycin which she had been on since discharge. GI was reconsulted for a fall in his hemoglobin from 8 to 7.2 over the past 24 hours. He has continued to have some liquid yellow stool passing into his colostomy bag, but he is without any abdominal pain and he has not passed any melena nor has he had any bright blood in his colostomy or any hematemesis. He has been maintained on a PPI since the ulcer was diagnosed and he is without any burning epigastric pain or heartburn. Allergies/Medications Allergies: Coded Allergies: ibuprofen (UNKNOWN 01/18/17) Home Med List: Acetaminophen (Q-Pap) 325 MG TABLET 2 TAB PO Q4H PRN PAIN/TEMP>/100 (Reported ) Acetaminophen (Acephen) 650 MG SUPP.RECT 1 SUPP ME Q4H PRN PAIN/TEMP>100 ( Reported) Aspirin (Ecotrin*) 81 MG TABLET.DR 1 TAB PO DAILY HEART/BLOOD (Reported) Atorvastatin Calcium (Lipitor) 10 MG TABLET 1 TAB PO DAILY CHOLESTEROL ( Reported) Baclofen 10 MG TABLET 1 TAB PO DAILY spams (Reported) Bisacodyl 10 MG SUPP.RECT 1 SUP RC PRN CONSTIPATION (Reported) Cyanocobalamin (Vitamin B-12) (Vitamin B-12) 100 MCG TABLET 1 TAB PO DAILY SUPPLEMENT (Reported) Ergocalciferol (Vitamin D2) (Vitamin D2) 50,000 UNIT CAPSULE 1 CAP PO Q30D SUPPLEMENT (Reported) Furosemide (Lasix) 20 MG TABLET 1 TAB PO Q48 DIURETIC (Reported) Ipratropium/Albuterol Sulfate (Iprat-Albut 0.5-3(2.5) MG/3 Ml) 0.5 MG-3 MG (2.5 MG BASE)/3 ML AMPUL.NEB 1 VIAL INH TID RESPIRATORY (Reported) Levetiracetam (Keppra) 500 MG TABLET 1 TAB PO QAM seizures (Reported) Lisinopril (Zestril) 10 MG TABLET 1 TAB PO DAILY BP (Reported) Magnesium Hydroxide (Milk Of Magnesia) 400 MG/5 ML ORAL.SUSP 30 ML PO DAILY PRN CONSTIPATION (Reported) Melatonin 5 MG TABLET 1 TAB PO QHS SLEEP (Reported) Metformin HCl 500 MG TABLET 1 TAB PO BID DM (Reported) Mirtazapine 15 MG TABLET 0.5 TAB PO QHS UNKNOWN (Reported) Mometasone/Formoterol (Dulera 100 Mcg/5 Mcg Inhaler) 100 MCG-5 MCG/ACTUATION HFA.AER.AD 2 PUF INH BID RESPIRATORY (Reported) Multivitamin (Multi-Day Vitamins) 1 EACH TABLET 1 TAB PO DAILY SUPPLEMENT ( Reported) Na Phos,M-B/Na Phos,Di-Ba (Fleet Enema) 19 GRAM-7 GRAM/118 ML ENEMA 1 E RC DAILY PRN CONSTIPATION (Reported) [place]-3/Dha/Epa/Fish Oil (Fish Oil 1,000 MG Softgel) 1,000 MG (120 MG-180 MG) CAPSULE 1 CAP PO DAILY SUPPLEMENT (Reported) Omeprazole 20 MG CAPSULE.DR 1 CAP PO DAILY GI (Reported) Ondansetron HCl (Zofran) 4 MG TABLET 1 TAB PO Q8H PRN N/V (Reported) Oxycodone HCl 10 MG TABLET 1 TAB PO Q8H PAIN (Reported) Protein Supplement (Promod) 946 ML LIQUID 30 ML PO TID SUPPLEMENT (Reported) Psyllium Husk (Metamucil) (Unknown Strength) CAPSULE 1 CAP PO DAILY SUPPLEMENT (Reported) Rivaroxaban (Xarelto) 20 MG TABLET 1 TAB PO DAILY Pumonary Embolism Saccharomyces Boulardii (Florastor) 250 MG CAPSULE 1 TAB PO QHS PROBIOTIC ( Reported) Sulfamethoxazole/Trimethoprim (Bactrim Ds Tablet) 800 MG-160 MG TABLET 1 TAB PO BID PNA Tolterodine Tartrate (Detrol LA) 4 MG CAP.ER.24H 1 CAP PO DAILY BLADDER ( Reported) Trazodone HCl 50 MG TABLET 0.5 TAB PO Q12H PRN UNKNOWN (Reported) Current Medications: Current Medications Sig/Mey Start time Last Medication Dose Route Stop Time Status Admin Acetaminophen 650 MG ONCE ONE 02/04 1230 DC 02/04 PO 02/04 1231 1237 Albuterol Sulfate 3 ML Q4P PRN 02/02 2315 AC 02/03 INH 1109 Aspirin Buffered 81 MG DAILY 02/03 1000 DC 02/04 PO 1200 Atorvastatin Calcium 10 MG DAILY 02/03 1000 AC 02/04 PO 1200 Budesonide/ 2 PUF BID 02/02 2200 AC 02/04 Formoterol Fumarate INH 1159 Insulin Aspart 0 TIDAC 02/03 1200 AC 02/03 SC 1225 Levetiracetam 500 MG QAM 02/03 1000 AC 02/04 PO 1200 Omeprazole 20 MG DAILY 02/03 1000 DC 02/04 PO 1200 Oxybutynin Chloride 2.5 MG BID 02/02 2200 AC 02/04 PO 1201 Pantoprazole Sodium 40 MG DAILY 02/04 1413 AC IV Patient Medication 1 ED .STK-MED ONE 02/04 1313 DC Teaching ED 02/04 1314 Rivaroxaban 20 MG DAILY 02/03 1000 DC 02/03 PO 1010 Sodium Chloride 1,000 ML Q13H 02/02 1730 AC 02/04 IV 0742 Vancomycin HCl 125 MG Q6 02/02 1800 AC 02/04 PO 1159 Past History Travel History Traveled to [place] past 21 day No Medical History Blood Transfusion Hx: Yes Neurological: PARAPLEGIA STATUS POST SPINAL SHOCK POSTOP EENT: NONE Cardiovascular: CAD, hypertension, hyperlipidemia, ABDOMINAL ANEURYSM Respiratory: asthma, pulmonary embolism Gastrointestinal: GERD Hepatic: NONE Renal: neurogenic bladder, UTI Musculoskeletal: decubitis ulcer (OSTEOMYELITIS) Psychiatric: anxiety, depression Endocrine: DIABETES TYPE 2 Blood Disorders: NONE Cancer(s): prostate cancer 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 Acute Rehab Services at Home: Home Health Aide, Nursing Primary Language: Kenyan Smoking Status: Never Smoked ETOH Use: denies use Illicit Drug Use: denies illicit drug use Functional Ability ADLs Independent: eating. Needs Assist: dressing, toileting, bathing. Ambulation: non-ambulatory IADLs Needs Assist: shopping, housework, finances, food prep, telephone, transportation, medication admin. Review of Systems Review of Systems Constitutional: Reports: weakness. EENTM: Denies: no symptoms. Cardiovascular: Denies: no symptoms. Respiratory: Reports: short of breath, sputum production. GI: Reports: see HPI. Genitourinary: Denies: no symptoms. Musculoskeletal: Reports: joint pain, muscle pain. Denies: joint swelling. Skin: Reports: see HPI (has ulcer ). Neurological/Psychological: Denies: no symptoms. Hematologic/Endocrine: Denies: no symptoms. Immunologic/Allergic: Denies: no symptoms. All Other Systems: Reviewed and Negative Exam & Diagnostic Data Vital Signs and I&O Vital Signs Date Time Temp Pulse Resp B/P Pulse O2 O2 Flow FiO2 Ox Delivery Rate 02/04 1237 99.9 02/04 0806 Nasal 4.0L Cannula 02/04 0714 98.9 78 16 126/58 96 02/04 0000 Nasal 4.0L Cannula 02/03 2256 98.7 96 18 100/42 97 Nasal 4.0L Cannula 02/03 1746 103 116/52 98 Nasal 4.0L Cannula 02/03 1600 95 Nasal 4.0L Cannula Intake & Output 02/04 1600 02/04 0400 02/03 1600 02/03 0400 02/02 1600 02/02 0400 Intake Total 250 1080 2240 1465 2250 Output Total 214 685 6425 550 Balance 50 455 6669 287 2871 Intake, IV 10 600 1200 1225 2250 Intake, Oral 824 056 2647 240 Output, Stool 150 400 450 300 Output, Urine 50 225 575 250 Patient 174 lb 180 lb Weight Physical Exam General Appearance: no apparent distress, alert, comfortable Head: atraumatic, normal appearance Eyes: Bilateral: normal appearance. Ears, Nose, Throat: normal pharynx, normal ENT inspection Neck: normal inspection, supple, full range of motion Respiratory: normal breath sounds, chest non-tender Cardiovascular: regular rate/rhythm Gastrointestinal: normal bowel sounds, soft, non-tender, colostomy c/d/i with liquid stool, no melena Rectal: deferred Extremities: normal inspection, no edema Skin: decubitus ulcer not examined Results Imaging/Other Studies: EGD 01/23/17: Findings: The esophagus had normal caliber and contour. The mucosa was intact throughout. There were no varices. The GE junction was normal. There was no evident hiatal hernia. The stomach had normal distention and active peristalsis. There was no blood, old or fresh, within the gastric cavity. The cardia was normal. Greater curvature the fundus was a 2 cm x 1 cm oval ulceration with clean base, and normal edges. It was left intact. On the contralateral wall of the fundus was a 1.2 cm submucosal impression consistent with submucosal lesion, with smooth/ normal overlying mucosa. The mucosa and folds of the stomach were otherwise normal. The pyloric channel was normal. The duodenal bulb was normal without erosion, ulceration or deformity. Mucosa and folds of the second and third portions of the duodenum were normal. Impression: * Fundic ulcer * Fundic submucosal lesion Assessment/Plan Assessment/Recommendations: Assessment: Mr. Peterson is a 71-year-old male multiple medical problems including paraplegia stage IV sacral decubiti ulcers, history of osteomyelitis and a recent diagnosis of a gastric ulcer who has been readmitted with altered mental status, presumably secondary to sepsis who was noted to have a small drop in his hgb over the past 24 hours of less than one gram, but he is without any evidence of overt GI bleeding as he is without any melena, brbpr, or hematemsis. Furthermore, his BUN/Cr ratio isn't elevated to suggest ongoing GI blood loss and his fall in his hgb is actually within the error of the test. I suspect his anemia is likely multifactorial and primariy related to anemia of chronic disease with some occult blood losses from his gastric ulcer and also his sacral decubiti and there is also likely a hemodilutional effect as well. He should have a repeat endoscopy in a few months to confirm healing of the ulcer, but as he is without overt GI bleeding this doesn't need to be repeated now. Recommendations: 1. Advance diet as tolerated. 2. Finish off course of oral vancomycin for c. diff 3. Follow daily CBC and tarnsfuse as needed to keep his hgb > 7 or as per cardiology recommendations. 4. There are no absolute GI contraindications to resuming Xaretlo if medically indicated 5. GI should be notified for signs of overt GI bleeding (ie. melena, brbpr or hematesis) and if he remains without overt GI bleeding he should have a repeat EGD in about 2 months to confirm healing of his ulcer and rule out an underlying malignancy. I will continue to follow this patient and make further recommendations based on his clinical course. Problem List: 1. Anemia 2. Vomiting and diarrhea 3. C. difficile colitis 4. Decubitus ulcer Copies To: KELSEY MULLIGAN,SLIM Avalos Consult Acknowledgment - Thank you for your consult request.
[2017-02-04 15:30] VITALS: BP 130/42
--- NOTE | 2017-02-04 18:53 | Cons- Pulmonary ---
General Information and HPI Consulting Request Date of Consult: 02/04/17 Requested By: med team History of Present Illness: This is a 71-year-old man, retirement resident, with diabetes, coronary artery disease, recently diagnosed with a pulmonary embolism and paraplegia following spinal shock after surgery for an aortic aneurysm 4 years prior to admission, status post placement of a suprapubic cystostomy and diverting colostomy over 3 months prior to admission, with underlying osteomyelitis treated with multiple courses of antibiotics, most recently 3 months prior to admission after he was hospitalized with Group G strep sepsis, with an ostectomy also performed at that time, treated with a ten-day course of Levaquin 4 weeks prior to admission for presumed pneumonia, hospitalized 3 weeks prior to admission with hypotension, tachycardia and hypoxia, felt to be secondary to sepsis from pneumonia, treated with broad-spectrum antibiotics with improvement, with MRSA isolated from the sputum, felt to be of unclear significance initially, but with his hospital course complicated by a GI bleed secondary to a fundic ulcer, persistent leukocytosis, thought possibly secondary to the MRSA, for which he was changed to IV Vancomycin, and with watery stools, with a C. difficile toxin negative but PCR positive, treated with oral Vancomycin with a slight drop in his white blood cell count, discharged to the rehabilitation facility on this medication, readmitted on February 02, just 4 days after discharge, with an altered mental status and hypoxia. On admission he was febrile to 100.6. O2 sat was 94% on 2 L. Blood pressure was 97/49. Laboratory data revealed a white blood cell count of 15,000, BUN/ creatinine 38 and 1.4 with normal liver enzymes. He was given 4 L of fluid with gradual improvement in his blood pressure. He was also given doses of IV Vancomycin and Ceftazidime and continued on oral Vancomycin. He defervesced and his white blood cell count normalized overnight. On February 03 his IV antibiotics were discontinued and he was continued on oral Vancomycin alone. He has remained afebrile and white blood cell count has remained normal. He denies any decreased oral intake at the retirement and states that his stools were formed there, though they have become liquid since admission. He reports a chronic cough, unchanged from his usual. He denies any chest pain or increased shortness of breath. He has no abdominal discomfort. He still reports leakage around his suprapubic catheter, which has been a problem since its placement. Allergies/Medications Allergies: Coded Allergies: ibuprofen (UNKNOWN 01/18/17) Home Med List: Acetaminophen (Q-Pap) 325 MG TABLET 2 TAB PO Q4H PRN PAIN/TEMP>/100 (Reported ) Acetaminophen (Acephen) 650 MG SUPP.RECT 1 SUPP TN Q4H PRN PAIN/TEMP>100 ( Reported) Aspirin (Ecotrin*) 81 MG TABLET.DR 1 TAB PO DAILY HEART/BLOOD (Reported) Atorvastatin Calcium (Lipitor) 10 MG TABLET 1 TAB PO DAILY CHOLESTEROL ( Reported) Baclofen 10 MG TABLET 1 TAB PO DAILY spams (Reported) Bisacodyl 10 MG SUPP.RECT 1 SUP RC PRN CONSTIPATION (Reported) Cyanocobalamin (Vitamin B-12) (Vitamin B-12) 100 MCG TABLET 1 TAB PO DAILY SUPPLEMENT (Reported) Ergocalciferol (Vitamin D2) (Vitamin D2) 50,000 UNIT CAPSULE 1 CAP PO Q30D SUPPLEMENT (Reported) Furosemide (Lasix) 20 MG TABLET 1 TAB PO Q48 DIURETIC (Reported) Ipratropium/Albuterol Sulfate (Iprat-Albut 0.5-3(2.5) MG/3 Ml) 0.5 MG-3 MG (2.5 MG BASE)/3 ML AMPUL.NEB 1 VIAL INH TID RESPIRATORY (Reported) Levetiracetam (Keppra) 500 MG TABLET 1 TAB PO QAM UNKNOWN (Reported) Lisinopril (Zestril) 10 MG TABLET 1 TAB PO DAILY BP (Reported) Magnesium Hydroxide (Milk Of Magnesia) 400 MG/5 ML ORAL.SUSP 30 ML PO DAILY PRN CONSTIPATION (Reported) Melatonin 5 MG TABLET 1 TAB PO QHS SLEEP (Reported) Metformin HCl 500 MG TABLET 1 TAB PO BID DM (Reported) Mirtazapine 15 MG TABLET 0.5 TAB PO QHS UNKNOWN (Reported) Mometasone/Formoterol (Dulera 100 Mcg/5 Mcg Inhaler) 100 MCG-5 MCG/ACTUATION HFA.AER.AD 2 PUF INH BID RESPIRATORY (Reported) Multivitamin (Multi-Day Vitamins) 1 EACH TABLET 1 TAB PO DAILY SUPPLEMENT ( Reported) Na Phos,M-B/Na Phos,Di-Ba (Fleet Enema) 19 GRAM-7 GRAM/118 ML ENEMA 1 E RC DAILY PRN CONSTIPATION (Reported) [place]-3/Dha/Epa/Fish Oil (Fish Oil 1,000 MG Softgel) 1,000 MG (120 MG-180 MG) CAPSULE 1 CAP PO DAILY SUPPLEMENT (Reported) Omeprazole 20 MG CAPSULE.DR 1 CAP PO DAILY GI (Reported) Ondansetron HCl (Zofran) 4 MG TABLET 1 TAB PO Q8H PRN N/V (Reported) Oxycodone HCl 10 MG TABLET 1 TAB PO Q8H PAIN (Reported) Potassium Chloride 20 MEQ TAB.ER.PRT 1 TAB PO QPM SUPPLEMENT (Reported) Protein Supplement (Promod) 946 ML LIQUID 30 ML PO TID SUPPLEMENT (Reported) Psyllium Husk (Metamucil) (Unknown Strength) CAPSULE 1 CAP PO DAILY SUPPLEMENT (Reported) Rivaroxaban (Xarelto) 20 MG TABLET 1 TAB PO DAILY Pumonary Embolism Saccharomyces Boulardii (Florastor) 250 MG CAPSULE 1 TAB PO QHS PROBIOTIC ( Reported) Tolterodine Tartrate (Detrol LA) 4 MG CAP.ER.24H 1 CAP PO DAILY BLADDER ( Reported) Trazodone HCl 50 MG TABLET 0.5 TAB PO Q12H PRN UNKNOWN (Reported) Vancomycin HCl (Vancocin HCl) 125 MG CAPSULE 1 CAP PO Q6 CDIFF (Reported) Review of Systems Review of Systems Constitutional: Reports: see HPI. 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 Acute Rehab Services at Home: Home Health Aide, Nursing Primary Language: Bengali Smoking Status: Never Smoked ETOH Use: denies use Illicit Drug Use: denies illicit drug use Functional Ability ADLs Independent: eating. Needs Assist: dressing, toileting, bathing. Ambulation: non-ambulatory IADLs Needs Assist: shopping, housework, finances, food prep, telephone, transportation, medication admin. Exam & Diagnostic Data Last 24 Hrs of Vital Signs/I&O Vital Signs Date Time Temp Pulse Resp B/P Pulse O2 O2 Flow FiO2 Ox Delivery Rate 02/04 1530 98.7 97 20 130/42 95 Nasal 4.0L Cannula 02/04 1340 98.2 105 20 122/42 95 Nasal 4.0L Cannula 02/04 1237 99.9 02/04 1210 99.9 99 20 132/48 96 Nasal 4.0L Cannula 02/04 0806 Nasal 4.0L Cannula 02/04 0714 98.9 78 16 126/58 96 02/04 0000 Nasal 4.0L Cannula 02/03 2256 98.7 96 18 100/42 97 Nasal 4.0L Cannula Intake & Output 02/04 1600 02/04 0800 02/04 0000 Intake Total 250 1080 Output Total 200 625 Balance 50 455 Intake, IV 10 600 Intake, Oral 240 480 Output, Stool 150 400 Output, Urine 50 225 Last 48 Hrs of Labs/Perfecto: Laboratory Tests 02/04/17 1745: CBC w Diff Pending, WBC Pending, RBC Pending, Hgb Pending, Hct Pending, MCV Pending, MCH Pending, RDW Pending, Plt Count Pending, MPV Pending, PUBS MCHC Pending 02/04/17 0615: Anion Gap 11, Estimated GFR > 60, BUN/Creatinine Ratio 18.9, CBC w Diff NO MAN DIFF REQ, RBC 2.80 L, MCV 79.5 L, MCH 25.7 L, RDW 20.1 H, MPV 7.1 L, Gran % 72.2, Lymphocytes % 8.6 L, Monocytes % 17.1 H, Eosinophils % 1.7, Basophils % 0.4, Absolute Granulocytes 7.4 H, Absolute Lymphocytes 0.9 L, Absolute Monocytes 1.8 H, Absolute Eosinophils 0.2, Absolute Basophils 0, PUBS MCHC 32.3 L 02/03/17 0640: Anion Gap 9, Estimated GFR > 60, BUN/Creatinine Ratio 27.8 H, CBC w Diff NO MAN DIFF REQ, RBC 3.15 L, MCV 80.0, MCH 25.6 L, RDW 20.6 H, MPV 7.1 L, Gran % 78.3 H, Lymphocytes % 6.0 L, Monocytes % 14.8 H, Eosinophils % 0.7, Basophils % 0.2, Absolute Granulocytes 7.6 H, Absolute Lymphocytes 0.6 L, Absolute Monocytes 1.4 H, Absolute Eosinophils 0.1, Absolute Basophils 0, PUBS MCHC 32.0 L 02/02/170: Anion Gap 11, Estimated GFR > 60, BUN/Creatinine Ratio 28.2 H, Lactic Acid 0.7 Assessment/Plan Impression/Plan: Physical Exam General Appearance: Alert, Oriented X3, Cooperative, No Acute Distress HEENT: Atraumatic, PERRLA, EOMI, Mucous Membr. moist/pink Cardiovascular: Regular Rate, Normal S1, Normal S2, No Murmurs Lungs: patient refused leaning forward for a full respiratory auscultation from the back. He has decreased air entry on the right anteriorly and laterally when compared to the left. 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 difficile, persistent leakage around his suprapubic catheter, low-grade temperature, now comes in with altered mental status which rapidly improved after IV fluids. His issues include * Resolving confusion with hypotension which resolved rapidly with intravenous fluids * Recent MRSA pneumonia with left lower lobe persistent infiltrate. However his baseline pulmonary status appears to be stable unlikely that he has significant pneumonia * Recent C. 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 as noted in the previous CT * Previous thrombocytosis may be related to his underlying pathophysiology which needs to be followed * Anemia with work up ongoing, endoscopy ulcer with no active bleed RECOMMENDATION Aggressive incentive spirometry Sputum culture GI following Urology evaluation pending Ensure adequate by mouth intake as patient appeared to be dehydrated with confusion which is now resolved Continue oral vancomycin No other antibiotics needed for pneumonia Repeat chest x-ray in 48 hours while patient is upright as he may have atelectasis with chronic small effusions which she has had before Consult Acknowledgment - Thank you for your consult request.
[2017-02-04 19:10] LABS: ABSOLUTE BASOPHIL COUNT 0 /CUMM (0.0-0.2); ABSOLUTE EOSINOPHIL COUNT 0.2 /CUMM (0.0-0.7); ABSOLUTE GRANULOCYTE CT 7.4 /CUMM (1.4-6.5); ABSOLUTE MONOCYTE COUNT 1.7 /CUMM (0.10-0.60); BASOPHIL % 0.3 % (0.0-2.0); EOSINOPHIL % 1.5 % (0-5); GRANULOCYTE % 72.3 % (42.2-75.2); HEMATOCRIT 26.4 % (42-52); MEAN CORPUSCULAR HGB 25.5 PG (27.0-31.0); MEAN CORPUSCULAR HGB CONC 32.2 G/DL (33.0-37.0); MEAN CORPUSCULAR VOLUME 79.4 FL (80.0-94.0); MEAN PLATELET VOLUME 7.3 FL (7.4-10.4); PLATELET COUNT 606 /CUMM (130-400); RBC DISTRIBUTION WIDTH 19.7 % (11.5-14.5); RED BLOOD CELL CT 3.32 /CUMM (4.70-6.10); WHITE BLOOD CELL COUNT 10.2 /CUMM (4.8-10.8)
[2017-02-04 21:44] VITALS: BP 148/52
[2017-02-05 07:21] VITALS: BP 127/65
--- NOTE | 2017-02-05 08:27 | PN- Housestaff ---
Subjective Follow-up For: -Altered mental status and lethargic -Watery diarrhea secondary to C. difficile -Questionable pneumonia Subjective: Afebrile, hemodynamically stable, no acute overnight events reported. He Slept well over night. Patient denies dyspnea, chest pain, or any worsening of his baseline cough. He is saturating well on 4 L NC. His colostomy bag is filled with watery brown nonbloody stool, however it's slightly better than yesterday. He denies any other active complaints. Review of Systems Constitutional: Reports: no symptoms. Objective Last 24 Hrs of Vital Signs/I&O Vital Signs Date Time Temp Pulse Resp B/P Pulse O2 O2 Flow FiO2 Ox Delivery Rate 02/05 1202 95 Nasal 4.0L Cannula 02/05 0721 98.2 91 20 127/65 94 Nasal 2.0L Cannula 02/05 0000 Nasal 4.0L Cannula 02/04 2144 98.5 96 18 148/52 100 Nasal Cannula 02/04 1530 98.7 97 20 130/42 95 Nasal 4.0L Cannula 02/04 1340 98.2 105 20 122/42 95 Nasal 4.0L Cannula Intake & Output 02/05 1600 02/05 0800 02/05 0000 Intake Total 850 600 Output Total 175 325 Balance 675 275 Intake, IV 610 600 Intake, Oral 240 Output, Stool 75 75 Output, Urine 100 250 Physical Exam General Appearance: Alert, Oriented X3, Cooperative, No Acute Distress Skin: No Rashes HEENT: Atraumatic, PERRLA, EOMI, Mucous Membr. moist/pink Cardiovascular: Regular Rate, Normal S1, Normal S2, No Murmurs Lungs: Clear to Auscultation, Normal Air Movement Abdomen: Soft, No Tenderness Neurological: Normal Speech Extremities: No Clubbing, No Cyanosis, No Edema Current Medications: Current Medications Sig/Mey Start time Last Medication Dose Route Stop Time Status Admin Acetaminophen 650 MG .STK-MED ONE 02/05 0029 DC PO 02/05 0030 Albuterol Sulfate 3 ML Q4P PRN 02/02 2315 AC 02/03 INH 1109 Aspirin Buffered 81 MG DAILY 02/06 1000 AC PO Aspirin Buffered 81 MG DAILY 02/03 1000 DC 02/04 PO 1200 Atorvastatin Calcium 10 MG DAILY 02/03 1000 AC 02/05 PO 1017 Budesonide/ 2 PUF BID 02/02 2200 AC 02/05 Formoterol Fumarate INH 1018 Insulin Aspart 0 TIDAC 02/03 1200 AC 02/03 SC 1225 Levetiracetam 500 MG QAM 02/03 1000 AC 02/05 PO 1017 Omeprazole 20 MG DAILY 02/03 1000 DC 02/04 PO 1200 Oxybutynin Chloride 2.5 MG BID 02/02 2200 AC 02/05 PO 1017 Pantoprazole Sodium 40 MG DAILY 02/04 1413 DC 02/05 IV 1010 Rivaroxaban 20 MG DAILY 02/05 1000 AC 02/05 PO 1017 Sodium Chloride 1,000 ML Q13H 02/02 1730 DC 02/05 IV 0433 Vancomycin HCl 125 MG Q6 02/02 1800 AC 02/05 PO 1010 Last 24 Hrs of Lab/Perfecto Results Last 24 Hrs of Labs/Mics: Laboratory Tests 02/05/17 0737: Anion Gap 9, Estimated GFR > 60, BUN/Creatinine Ratio 16.3, CBC w Diff NO MAN DIFF REQ, RBC 3.11 L, MCV 79.2 L, MCH 25.5 L, RDW 20.1 H, MPV 6.9 L, Gran % 75.4 H, Lymphocytes % 6.2 L, Monocytes % 16.6 H, Eosinophils % 1.2, Basophils % 0.6, Absolute Granulocytes 8.3 H, Absolute Lymphocytes 0.7 L, Absolute Monocytes 1.8 H, Absolute Eosinophils 0.1, Absolute Basophils 0.1, PUBS MCHC 32.2 L 02/04/17 1745: CBC w Diff NO MAN DIFF REQ, RBC 3.32 L, MCV 79.4 L, MCH 25.5 L, RDW 19.7 H, MPV 7.3 L, Gran % 72.3, Lymphocytes % 9.3 L, Monocytes % 16.6 H, Eosinophils % 1.5, Basophils % 0.3, Absolute Granulocytes 7.4 H, Absolute Lymphocytes 1.0 L, Absolute Monocytes 1.7 H, Absolute Eosinophils 0.2, Absolute Basophils 0, PUBS MCHC 32.2 L Assessment/Plan Assessment: Assessment: #Severe sepsis most likely secondary to C. difficile. Patient presented with hypotension and leukocytosis, both most likely secondary to dehydration given his watery diarrhea in the presence of positive C. difficile PCR. Patient was discharged recently on oral vancomycin. Patient denies any worsening on his cough. His leukocytosis improved with hydration. * Continue oral vancomycin for C. difficile * panculture pending * DC IV fluid as patient by mouth intake improved * Hold all supplements, diuretics, blood pressure medications for now * CBC daily to WBCs * Will follow ID recommendation #GI ulcer s/p EGD EGD that was done earlier this month, showed Fundic ulcer and Fundic submucosal lesion. GI recommended starting patient back on Xarelto and aspirin and to watch for GI symptoms. Patient H&H dropped yesterday from 8 to 7.2, he received 1 packed RBCs transfusion after which his hemoglobin improved to 8.5. This morning he has a slight drop of Hb to 7.9. Patient has no obvious source of bleeding. * The repeat CBC at 18:00 to exclude active bleeding * We'll transfuse 1 packed RBCs to keep hemoglobin above 7 * Continue Xarelto after approved by GI * Continue PPI #Hx of PE * Continue Xarelto. * Informed GI if any symptom of bleeding #diabetic * Hold all oral antihyperglycemic medication * Sliding scale insulin * Accu-Cheks * diabetic diet #CAD * continue statin and aspirin #Suprapubic catheter and history of bladder cancer * Continue Oxybutynin 10 mg TID, as per urology Dr. Koch. #back ulcer stage IV * We will consult wound Carbohydrate diet DVT prophylaxis Xarelto Full code Problem List: 1. C. difficile colitis Pain Ratin Pain Location: na Pain Goal: Remain pain free Pain Plan: See A&P Tomorrow's Labs & Rationales: CBC
[2017-02-05 08:35] LABS: ABSOLUTE BASOPHIL COUNT 0.1 /CUMM (0.0-0.2); ABSOLUTE EOSINOPHIL COUNT 0.1 /CUMM (0.0-0.7); ABSOLUTE GRANULOCYTE CT 8.3 /CUMM (1.4-6.5); ABSOLUTE LYMPH COUNT 0.7 /CUMM (1.2-3.4); ABSOLUTE MONOCYTE COUNT 1.8 /CUMM (0.10-0.60); BASOPHIL % 0.6 % (0.0-2.0); EOSINOPHIL % 1.2 % (0-5); GRANULOCYTE % 75.4 % (42.2-75.2); HEMATOCRIT 24.7 % (42-52); MEAN CORPUSCULAR HGB 25.5 PG (27.0-31.0); MEAN CORPUSCULAR HGB CONC 32.2 G/DL (33.0-37.0); MEAN CORPUSCULAR VOLUME 79.2 FL (80.0-94.0); MEAN PLATELET VOLUME 6.9 FL (7.4-10.4); PLATELET COUNT 594 /CUMM (130-400); RBC DISTRIBUTION WIDTH 20.1 % (11.5-14.5); RED BLOOD CELL CT 3.11 /CUMM (4.70-6.10)
--- NOTE | 2017-02-05 09:50 | PN- Pulmonary ---
Subjective HPI/Critical Care Issues: Doing better afebrile vss chest mild crackles Objective Current Medications: Current Medications Sig/Mey Start time Last Medication Dose Route Stop Time Status Admin Acetaminophen 650 MG .STK-MED ONE 02/05 0029 DC PO 02/05 0030 Acetaminophen 650 MG ONCE ONE 02/04 1230 DC 02/04 PO 02/04 1231 1237 Albuterol Sulfate 3 ML Q4P PRN 02/02 2315 AC 02/03 INH 1109 Aspirin Buffered 81 MG DAILY 02/03 1000 DC 02/04 PO 1200 Atorvastatin Calcium 10 MG DAILY 02/03 1000 AC 02/04 PO 1200 Budesonide/ 2 PUF BID 02/02 2200 AC 02/04 Formoterol Fumarate INH 2128 Insulin Aspart 0 TIDAC 02/03 1200 AC 02/03 SC 1225 Levetiracetam 500 MG QAM 02/03 1000 AC 02/04 PO 1200 Omeprazole 20 MG DAILY 02/03 1000 DC 02/04 PO 1200 Oxybutynin Chloride 2.5 MG BID 02/02 2200 AC 02/04 PO 2127 Pantoprazole Sodium 40 MG DAILY 02/04 1413 AC 02/04 IV 1826 Patient Medication 1 ED .STK-MED ONE 02/04 1313 DC Teaching ED 02/04 1314 Rivaroxaban 20 MG DAILY 02/05 1000 AC PO Sodium Chloride 1,000 ML Q13H 02/02 1730 AC 02/05 IV 0433 Vancomycin HCl 125 MG Q6 02/02 1800 AC 02/05 PO 0635 Vital Signs & I&O Last 24 Hrs of Vitals and I&O: Vital Signs Date Time Temp Pulse Resp B/P Pulse O2 O2 Flow FiO2 Ox Delivery Rate 02/05 0721 98.2 91 20 127/65 94 Nasal 2.0L Cannula 02/05 0000 Nasal 4.0L Cannula 02/04 2144 98.5 96 18 148/52 100 Nasal Cannula 02/04 1530 98.7 97 20 130/42 95 Nasal 4.0L Cannula 02/04 1340 98.2 105 20 122/42 95 Nasal 4.0L Cannula 02/04 1237 99.9 02/04 1210 99.9 99 20 132/48 96 Nasal 4.0L Cannula Intake & Output 02/05 1600 02/05 0800 02/05 0000 Intake Total 850 600 Output Total 175 325 Balance 675 275 Intake, IV 610 600 Intake, Oral 240 Output, Stool 75 75 Output, Urine 100 250 Impression/Plan Impression/Plan Impression/Plan: Physical Exam General Appearance: Alert, Oriented X3, Cooperative, No Acute Distress HEENT: Atraumatic, PERRLA, EOMI, Mucous Membr. moist/pink Cardiovascular: Regular Rate, Normal S1, Normal S2, No Murmurs Lungs: patient refused leaning forward for a full respiratory auscultation from the back. He has decreased air entry on the right anteriorly and laterally when compared to the left. 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 difficile, persistent leakage around his suprapubic catheter, low-grade temperature, now comes in with altered mental status which rapidly improved after IV fluids. His issues include * Resolving confusion with hypotension which resolved rapidly with intravenous fluids * Recent MRSA pneumonia with left lower lobe persistent infiltrate. However his baseline pulmonary status appears to be stable unlikely that he has significant pneumonia * Recent C. 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 as noted in the previous CT * Previous thrombocytosis may be related to his underlying pathophysiology which needs to be followed * Anemia with work up ongoing, endoscopy ulcer with no active bleed RECOMMENDATION Aggressive incentive spirometry Sputum culture GI following Urology evaluation pending Ensure adequate by mouth intake as patient appeared to be dehydrated with confusion which is now resolved Continue oral vancomycin No other antibiotics needed for pneumonia Repeat chest x-ray in am while patient is upright as he may have atelectasis with chronic small effusions which she has had before
--- NOTE | 2017-02-05 10:09 | PN- Att Addend ---
Attending Addendum Attending Brief Note Patient has minimal complaints and he appears alert and oriented General Appearance: Alert, No Acute Distress Skin: Grossly normal HEENT: PEERLA Neck: Supple, No JVD Cardiovascular: Regular Rate, Normal S1, Normal S2, No Murmurs Lungs: Clear to Auscultation, Normal Air Movement Abdomen: Decubitus sacral ulcer, colostomy bag with no abdominal pain Neurological: Normal Speech, Strength at 5/5 X4 Ext, Cranial Nerves 3-12 NL, Reflexes 2+ Extremities: No Clubbing, No Cyanosis, No Edema Vascular: Normal Pulses Assessment Patient has minimal symptoms and she reports increased fluid output from his colostomy. It is likely he was dehydrated from severe diarrhea. Otherwise his labs look improved and we must continue his current treatment. Hypoxic respiratory failure with chest x-ray negative. His oxygen requirements have improved and we will taper as tolerated. Plan Continue vancomycin Taper oxygen as tolerated Continue all other meds DC IV fluids Encourage by mouth fluids Current Medications Sig/Mey Start time Last Medication Dose Route Stop Time Status Admin Acetaminophen 650 MG .STK-MED ONE 02/05 0029 DC PO 02/05 0030 Acetaminophen 650 MG ONCE ONE 02/04 1230 DC 02/04 PO 02/04 1231 1237 Albuterol Sulfate 3 ML Q4P PRN 02/02 2315 AC 02/03 INH 1109 Aspirin Buffered 81 MG DAILY 02/03 1000 DC 02/04 PO 1200 Atorvastatin Calcium 10 MG DAILY 02/03 1000 AC 02/04 PO 1200 Budesonide/ 2 PUF BID 02/02 2200 AC 02/04 Formoterol Fumarate INH 2128 Insulin Aspart 0 TIDAC 02/03 1200 AC 02/03 SC 1225 Levetiracetam 500 MG QAM 02/03 1000 AC 02/04 PO 1200 Omeprazole 20 MG DAILY 02/03 1000 DC 02/04 PO 1200 Oxybutynin Chloride 2.5 MG BID 02/02 2200 AC 02/04 PO 2127 Pantoprazole Sodium 40 MG DAILY 02/04 1413 AC 02/04 IV 1826 Patient Medication 1 ED .STK-MED ONE 02/04 1313 DC Teaching ED 02/04 1314 Rivaroxaban 20 MG DAILY 02/05 1000 AC PO Sodium Chloride 1,000 ML Q13H 02/02 1730 AC 02/05 IV 0433 Vancomycin HCl 125 MG Q6 02/02 1800 AC 02/05 PO 0635 Laboratory Tests 02/05 02/04 0737 1745 Chemistry Sodium (137 - 145 mmol/L) 137 Potassium (3.5 - 5.1 mmol/L) 3.7 Chloride (98 - 107 mmol/L) 102 Carbon Dioxide (22 - 30 mmol/L) 26 Anion Gap (5 - 16) 9 BUN (9 - 20 mg/dL) 13 Creatinine (0.7 - 1.2 mg/dL) 0.8 Estimated GFR (>60 ml/min) > 60 BUN/Creatinine Ratio (7 - 25 %) 16.3 Hematology CBC w Diff NO MAN DIFF REQ NO MAN DIFF REQ WBC (4.8 - 10.8 /CUMM) 11.0 H 10.2 RBC (4.70 - 6.10 /CUMM) 3.11 L 3.32 L Hgb (14.0 - 18.0 G/DL) 7.9 L 8.5 L Hct (42 - 52 %) 24.7 L 26.4 L MCV (80.0 - 94.0 FL) 79.2 L 79.4 L MCH (27.0 - 31.0 PG) 25.5 L 25.5 L RDW (11.5 - 14.5 %) 20.1 H 19.7 H Plt Count (130 - 400 /CUMM) 594 H 606 H MPV (7.4 - 10.4 FL) 6.9 L 7.3 L Gran % (42.2 - 75.2 %) 75.4 H 72.3 Lymphocytes % (20.5 - 51.1 %) 6.2 L 9.3 L Monocytes % (1.7 - 9.3 %) 16.6 H 16.6 H Eosinophils % (0 - 5 %) 1.2 1.5 Basophils % (0.0 - 2.0 %) 0.6 0.3 Absolute Granulocytes (1.4 - 6.5 /CUMM) 8.3 H 7.4 H Absolute Lymphocytes (1.2 - 3.4 /CUMM) 0.7 L 1.0 L Absolute Monocytes (0.10 - 0.60 /CUMM) 1.8 H 1.7 H Absolute Eosinophils (0.0 - 0.7 /CUMM) 0.1 0.2 Absolute Basophils (0.0 - 0.2 /CUMM) 0.1 0 PUBS MCHC (33.0 - 37.0 G/DL) 32.2 L 32.2 L Vital Signs Date Time Temp Pulse Resp B/P Pulse O2 O2 Flow FiO2 Ox Delivery Rate 02/05 0721 98.2 91 20 127/65 94 Nasal 2.0L Cannula 02/05 0000 Nasal 4.0L Cannula 02/04 2144 98.5 96 18 148/52 100 Nasal Cannula 02/04 1530 98.7 97 20 130/42 95 Nasal 4.0L Cannula 02/04 1340 98.2 105 20 122/42 95 Nasal 4.0L Cannula 02/04 1237 99.9 02/04 1210 99.9 99 20 132/48 96 Nasal 4.0L Cannula
--- NOTE | 2017-02-05 10:36 | PN- Infect Dx ---
Subjective Subjective: Afebrile without complaints. He is taking in po well. He denies any shortness of breath or chest discomfort. Objective Last 24 Hrs of Vital Signs/I&O Vital Signs Date Time Temp Pulse Resp B/P Pulse O2 O2 Flow FiO2 Ox Delivery Rate 02/05 0721 98.2 91 20 127/65 94 Nasal 2.0L Cannula 02/05 0000 Nasal 4.0L Cannula 02/04 2144 98.5 96 18 148/52 100 Nasal Cannula 02/04 1530 98.7 97 20 130/42 95 Nasal 4.0L Cannula 02/04 1340 98.2 105 20 122/42 95 Nasal 4.0L Cannula 02/04 1237 99.9 02/04 1210 99.9 99 20 132/48 96 Nasal 4.0L Cannula Intake & Output 02/05 1600 02/05 0800 02/05 0000 Intake Total 850 600 Output Total 175 325 Balance 675 275 Intake, IV 610 600 Intake, Oral 240 Output, Stool 75 75 Output, Urine 100 250 Physical Exam Other Physical Findings: He appears comfortable in no acute distress Lungs are clear Heart regular rhythm with no murmur Abdomen is soft, with no obvious tenderness; colostomy with liquid stool Results Last 24 Hours of Lab Results: Laboratory Tests 02/05 02/04 0737 1745 Chemistry Sodium (137 - 145 mmol/L) 137 Potassium (3.5 - 5.1 mmol/L) 3.7 Chloride (98 - 107 mmol/L) 102 Carbon Dioxide (22 - 30 mmol/L) 26 Anion Gap (5 - 16) 9 BUN (9 - 20 mg/dL) 13 Creatinine (0.7 - 1.2 mg/dL) 0.8 Estimated GFR (>60 ml/min) > 60 BUN/Creatinine Ratio (7 - 25 %) 16.3 Hematology CBC w Diff NO MAN DIFF REQ NO MAN DIFF REQ WBC (4.8 - 10.8 /CUMM) 11.0 H 10.2 RBC (4.70 - 6.10 /CUMM) 3.11 L 3.32 L Hgb (14.0 - 18.0 G/DL) 7.9 L 8.5 L Hct (42 - 52 %) 24.7 L 26.4 L MCV (80.0 - 94.0 FL) 79.2 L 79.4 L MCH (27.0 - 31.0 PG) 25.5 L 25.5 L RDW (11.5 - 14.5 %) 20.1 H 19.7 H Plt Count (130 - 400 /CUMM) 594 H 606 H MPV (7.4 - 10.4 FL) 6.9 L 7.3 L Gran % (42.2 - 75.2 %) 75.4 H 72.3 Lymphocytes % (20.5 - 51.1 %) 6.2 L 9.3 L Monocytes % (1.7 - 9.3 %) 16.6 H 16.6 H Eosinophils % (0 - 5 %) 1.2 1.5 Basophils % (0.0 - 2.0 %) 0.6 0.3 Absolute Granulocytes (1.4 - 6.5 /CUMM) 8.3 H 7.4 H Absolute Lymphocytes (1.2 - 3.4 /CUMM) 0.7 L 1.0 L Absolute Monocytes (0.10 - 0.60 /CUMM) 1.8 H 1.7 H Absolute Eosinophils (0.0 - 0.7 /CUMM) 0.1 0.2 Absolute Basophils (0.0 - 0.2 /CUMM) 0.1 0 PUBS MCHC (33.0 - 37.0 G/DL) 32.2 L 32.2 L Last 24 Hours of Perfecto Results: Blood cultures 2 February 02 remain negative Assessment/Plan Impression: Stable on oral Vancomycin now Day 10 of treatment for C. difficile, with temperatures and white blood cell count essentially normal but with persistent diarrhea through his colostomy. GI evaluation noted with no evidence for active GI bleeding, and his H&H is stable status post transfusion. Suggestion: 1. Reduce IV fluids 2. Urology evaluation regarding his persistent leakage from the suprapubic tube 3. Continue oral Vancomycin
[2017-02-05 14:29] VITALS: BP 128/62
[2017-02-05 20:20] LABS: ABSOLUTE BASOPHIL COUNT 0 /CUMM (0.0-0.2); ABSOLUTE EOSINOPHIL COUNT 0.1 /CUMM (0.0-0.7); ABSOLUTE GRANULOCYTE CT 9.1 /CUMM (1.4-6.5); ABSOLUTE LYMPH COUNT 0.9 /CUMM (1.2-3.4); ABSOLUTE MONOCYTE COUNT 1.4 /CUMM (0.10-0.60); BASOPHIL % 0.4 % (0.0-2.0); EOSINOPHIL % 0.7 % (0-5); GRANULOCYTE % 78.7 % (42.2-75.2); HEMATOCRIT 25.2 % (42-52); MEAN CORPUSCULAR HGB 25.9 PG (27.0-31.0); MEAN CORPUSCULAR HGB CONC 32.7 G/DL (33.0-37.0); MEAN CORPUSCULAR VOLUME 79.1 FL (80.0-94.0); MEAN PLATELET VOLUME 6.7 FL (7.4-10.4); PLATELET COUNT 651 /CUMM (130-400); RED BLOOD CELL CT 3.19 /CUMM (4.70-6.10); WHITE BLOOD CELL COUNT 11.6 /CUMM (4.8-10.8)
[2017-02-05 22:15] VITALS: BP 90/40
[2017-02-05 23:00] VITALS: BP 110/55
--- NOTE | 2017-02-05 23:57 | NUR ---
ALERT AND ORIENTED X 3. VITAL SIGNS STABLE. DENIES CHEST PAIN. + PULSES ON 4L OXYGEN VIA NASAL CANNULA. DSGS ARE CLEAN, DRY AND INTACT. PATIENT TURNED AND REPOSITIONED Q2. MEDICATION GIVEN FOR PAIN. PATIENT RESTING COMFORTABLY AT THIS TIME. WILL CONTINUE TO MONITOR
[2017-02-06 06:44] VITALS: BP 124/50
--- NOTE | 2017-02-06 07:10 | PN- Housestaff ---
Subjective Follow-up For: -Altered mental status and lethargic -Watery diarrhea secondary to C. difficile -Questionable pneumonia Subjective: Afebrile, hemodynamically stable, no acute overnight events reported. Patient saturating well on 4 L of oxygen. Patient colostomy bag still felt with watery nonbloody brown stool. He denies abdominal pain, nausea, or vomiting. He denies any worsening of his cough or shortness breath. Overnight patient complained of back pain, he was started on his home pain medication Review of Systems Constitutional: Reports: no symptoms. Objective Last 24 Hrs of Vital Signs/I&O Vital Signs Date Time Temp Pulse Resp B/P B/P Pulse O2 O2 Flow FiO2 Mean Ox Delivery Rate 02/06 0644 97.6 88 20 124/50 95 Nasal 4.0L Cannula 02/06 0000 Nasal 4.0L Cannula 02/05 2300 110/55 02/05 2215 98.5 120 20 90/40 93 Nasal 4.0L Cannula 02/05 2150 93 Nasal 4.0L Cannula 02/05 1600 Nasal 4.0L Cannula 02/05 1429 98.1 88 18 128/62 98 Nasal 2.0L Cannula 02/05 1202 95 Nasal 4.0L Cannula Intake & Output 02/06 1600 02/06 0800 02/06 0000 Intake Total 150 400 Output Total 270 300 Balance -120 100 Intake, Oral 150 400 Output, Stool 70 100 Output, Urine 200 200 Physical Exam General Appearance: Alert, Oriented X3, Cooperative, No Acute Distress HEENT: Atraumatic, PERRLA, EOMI, Mucous Membr. moist/pink Cardiovascular: Regular Rate, Normal S1, Normal S2, No Murmurs Lungs: Clear to Auscultation, Normal Air Movement Abdomen: Soft, No Tenderness Neurological: Normal Speech Extremities: No Clubbing, No Cyanosis, No Edema Current Medications: Current Medications Sig/Mey Start time Last Medication Dose Route Stop Time Status Admin Acetaminophen 650 MG Q6P PRN 02/06 0030 AC 02/06 PO 0026 Albuterol Sulfate 3 ML Q4P PRN 02/02 2315 AC 02/03 INH 1109 Aspirin Buffered 81 MG DAILY 02/06 1000 AC 02/06 PO 0911 Atorvastatin Calcium 10 MG DAILY 02/03 1000 AC 02/06 PO 0911 Budesonide/ 2 PUF BID 02/02 2200 AC 02/06 Formoterol Fumarate INH 0912 Furosemide 20 MG Q48 02/06 1000 AC 02/06 PO 0911 Insulin Aspart 0 TIDAC 02/03 1200 AC 02/03 SC 1225 Levetiracetam 500 MG QAM 02/03 1000 AC 02/06 PO 0911 Melatonin 3 MG ONCE ONE 02/06 0200 DC 02/06 PO 02/06 0201 0155 Omeprazole 20 MG DAILY 02/06 1000 AC 02/06 PO 0911 Oxybutynin Chloride 10 MG TID 02/05 1600 AC 02/06 PO 0911 Oxybutynin Chloride 2.5 MG BID 02/02 2200 DC 02/05 PO 1017 Oxycodone HCl 10 MG Q8P PRN 02/05 1900 AC 02/06 PO 0911 Pantoprazole Sodium 40 MG DAILY 02/04 1413 DC 02/05 IV 1010 Rivaroxaban 20 MG DAILY 02/05 1000 AC 02/06 PO 0911 Sodium Chloride 1,000 ML Q13H 02/02 1730 DC 02/05 IV 0433 Vancomycin HCl 125 MG Q6 02/02 1800 AC 02/06 PO 0626 Last 24 Hrs of Lab/Perfecto Results Last 24 Hrs of Labs/Mics: Laboratory Tests 02/06/17 0646: Anion Gap 9, Estimated GFR > 60, BUN/Creatinine Ratio 16.3, CBC w Diff NO MAN DIFF REQ, RBC 3.48 L, MCV 79.4 L, MCH 25.6 L, RDW 20.1 H, MPV 6.9 L, Gran % 70.4, Lymphocytes % 11.0 L, Monocytes % 16.3 H, Eosinophils % 1.7, Basophils % 0.6, Absolute Granulocytes 8.0 H, Absolute Lymphocytes 1.3, Absolute Monocytes 1.9 H, Absolute Eosinophils 0.2, Absolute Basophils 0.1, PUBS MCHC 32.2 L 02/05/171954: CBC w Diff NO MAN DIFF REQ, RBC 3.19 L, MCV 79.1 L, MCH 25.9 L, RDW 20.0 H, MPV 6.7 L, Gran % 78.7 H, Lymphocytes % 7.9 L, Monocytes % 12.3 H, Eosinophils % 0.7, Basophils % 0.4, Absolute Granulocytes 9.1 H, Absolute Lymphocytes 0.9 L, Absolute Monocytes 1.4 H, Absolute Eosinophils 0.1, Absolute Basophils 0, PUBS MCHC 32.7 L Microbiology 02/05 1607 LOWER RESP: Respiratory Culture - COLB 02/05 1607 LOWER RESP: Gram Stain - COLB Assessment/Plan Assessment: Assessment: #Severe sepsis most likely secondary to C. difficile. He presented with hypotension and leukocytosis most likely secondary to dehydration given his watery diarrhea in the presence of positive C. difficile PCR. Patient was discharged recently on oral vancomycin. Yesterday WBCs increased to 11.6, this morning WBCs is 11.4, patient's hemoglobin also increased from 7.9 yesterday to 8.9 this morning, he did not receive any blood transfusion, his IV fluid was stopped yesterday, this makes the increase in hemoglobin and WBCs most likely secondary to concentrated blood cells. * Continue oral vancomycin for C. difficile * panculture pending * Hold all supplements, diuretics, blood pressure medications for now * CBC daily for WBCs * Will follow ID recommendation #GI ulcer s/p EGD EGD that was done earlier this month, showed Fundic ulcer and Fundic submucosal lesion. GI recommended starting patient back on Xarelto and aspirin and to watch for GI symptoms. Patient H&H dropped at some point during this admission to 7.2, he received 1 packed RBCs transfusion after which his hemoglobin improved to 8.5. H&H is still stable this morning * CBC daily * We'll transfuse 1 packed RBCs to keep hemoglobin above 7 * Continue Xarelto after approved by GI * Continue PPI #Hx of PE * Continue Xarelto. * Informed GI if any symptom of bleeding #diabetic * Hold all oral antihyperglycemic medication * Sliding scale insulin * Accu-Cheks * diabetic diet #CAD * continue statin and aspirin #Suprapubic catheter and history of bladder cancer * Continue Oxybutynin 10 mg TID, as per urology Dr. Koch. #back ulcer stage IV * We will consult wound Carbohydrate diet DVT prophylaxis Xarelto Full code Problem List: 1. C. difficile colitis Pain Ratin Pain Location: back Pain Goal: Remain pain free Pain Plan: See A&P Tomorrow's Labs & Rationales: CBC
--- NOTE | 2017-02-06 07:55 | Discharge Summary ---
See Addendum Visit Information Visit Dates Admission Date: 02/02/17 Discharge Date: 02/11/17 Hospital Course Course Attending Physician: SLIM COLE MD Primary Care Physician: SLIM COLE MD Hospital Course: This is a 71-year-old man, senior care resident, with diabetes, coronary artery disease, recently diagnosed with a pulmonary embolism and paraplegia following spinal shock after surgery for an aortic aneurysm 4 years prior to admission, status post placement of a suprapubic cystostomy and diverting colostomy over 3 months prior to admission, with underlying osteomyelitis treated with multiple courses of antibiotics, most recently 3 months prior to admission after he was hospitalized with Group G strep sepsis, with an ostectomy also performed at that time, treated with a ten-day course of Levaquin 4 weeks prior to admission for presumed pneumonia, hospitalized 3 weeks prior to admission with hypotension, tachycardia and hypoxia, felt to be secondary to sepsis from pneumonia, treated with broad-spectrum antibiotics with improvement, with MRSA isolated from the sputum, felt to be of unclear significance initially, but with his hospital course complicated by a GI bleed secondary to a fundic ulcer, persistent leukocytosis, thought possibly secondary to the MRSA, for which he was changed to IV Vancomycin, and with watery stools, with a C. difficile toxin negative but PCR positive, treated with oral Vancomycin with a slight drop in his white blood cell count, discharged to the rehabilitation facility on this medication, readmitted on February 02, just 4 days after discharge, with an altered mental status and hypoxia. On admission he was febrile to 100.6. O2 sat was 94% on 2 L. Blood pressure was 97/49. Laboratory data revealed a white blood cell count of 15,000, BUN/ creatinine 38 and 1.4 with normal liver enzymes. He was given 4 L of fluid with gradual improvement in his blood pressure. He was also given doses of IV Vancomycin and Ceftazidime and continued on oral Vancomycin. He defervesced and his white blood cell count normalized overnight. On February 03 his IV antibiotics were discontinued and he was continued on oral Vancomycin alone. He has remained afebrile and white blood cell count has remained normal. He denies any decreased oral intake at the senior care and states that his stools were formed there, though they have become liquid since admission. He reports a chronic cough, unchanged from his usual. He denies any chest pain or increased shortness of breath. He has no abdominal discomfort. He still reports leakage around his suprapubic catheter, which has been a problem since its placement. The patient was treated in the hospital for the following problems: 1. Altered mental status likely from underlying infection, and dehydration. And confusion resolved with IV fluids 2. Recent C. difficile infection s/p completion of 14 days of abx therapoy with po vancomycin. 3. Acute blood loss anemia likely secondary to GI bleed 4. Urinary incontinence from the suprapubic catheter 5. Paraplegic 6. History of diabetes, 7. History of hypertension 8. History of hyperlipidemia 9. History of previous bilateral pulmonary embolism currently on Xarelto 10. Recent MRSA pneumonia with persistent left lower lobe infiltrates and on this admission diagnosed and treated with Hospital Aquired PNA Hospital course Patient was treated with aggressive IV hydration the first 48 hours the patient' s confusion and altered mental status resolved. He completed the 14 days ABX course for severe C diff with PO vancomycin . Last day of medication was 02/09/17. The patient was persisetnetly hypoxiac and requiring 4 L of oxygen therapy.Repeat CXR and CT chest showed persistent PNA. He was treated for Hospital aquired PNA with Iv Vanco and ceftazidime.He was transiitioned to PO Bactram ds for for total 7 days(left with 3 more days of abx therapy)(stop date is 02/14/2017) Note the changes were made to the patient's medication For the patient's acute blood loss anemia, patient never had any riky bright red blood per rectum or any melena. He had a guaiac positive stools on rectal exam. He was evaluated by the senior international tax manager who recommended healing ulcer and would get better with time. He received one PRBC transfusion during his hospital stay Please repeat CBC in the next 1 week and maintain hemoglobin greater than 7. Follow-up with Dr. Powell in 2 weeks of discharge Please check BEP and POtassium levels in 2 days and replete and correct accordingly Repeat CBC in several days to follow-up white blood cell count (in 1 week) . Will need a follow-up chest x-ray at some point as well Allergies: Coded Allergies: ibuprofen (UNKNOWN 01/18/17) Significant Procedures: Laboratory Tests 02/06 02/05 0646 1955 Chemistry Sodium Pending Potassium Pending Chloride Pending Carbon Dioxide Pending Anion Gap Pending BUN Pending Creatinine Pending BUN/Creatinine Ratio Pending Hematology CBC w Diff Pending NO MAN DIFF REQ WBC (4.8 - 10.8 /CUMM) Pending 11.6 H RBC (4.70 - 6.10 /CUMM) Pending 3.19 L Hgb (14.0 - 18.0 G/DL) Pending 8.3 L Hct (42 - 52 %) Pending 25.2 L MCV (80.0 - 94.0 FL) Pending 79.1 L MCH (27.0 - 31.0 PG) Pending 25.9 L RDW (11.5 - 14.5 %) Pending 20.0 H Plt Count (130 - 400 /CUMM) Pending 651 H MPV (7.4 - 10.4 FL) Pending 6.7 L Gran % (42.2 - 75.2 %) 78.7 H Lymphocytes % (20.5 - 51.1 %) 7.9 L Monocytes % (1.7 - 9.3 %) 12.3 H Eosinophils % (0 - 5 %) 0.7 Basophils % (0.0 - 2.0 %) 0.4 Absolute Granulocytes (1.4 - 6.5 /CUMM) 9.1 H Absolute Lymphocytes (1.2 - 3.4 /CUMM) 0.9 L Absolute Monocytes (0.10 - 0.60 /CUMM) 1.4 H Absolute Eosinophils (0.0 - 0.7 /CUMM) 0.1 Absolute Basophils (0.0 - 0.2 /CUMM) 0 PUBS MCHC (33.0 - 37.0 G/DL) Pending 32.7 L 02/05 02/04 0737 1745 Chemistry Sodium (137 - 145 mmol/L) 137 Potassium (3.5 - 5.1 mmol/L) 3.7 Chloride (98 - 107 mmol/L) 102 Carbon Dioxide (22 - 30 mmol/L) 26 Anion Gap (5 - 16) 9 BUN (9 - 20 mg/dL) 13 Creatinine (0.7 - 1.2 mg/dL) 0.8 Estimated GFR (>60 ml/min) > 60 BUN/Creatinine Ratio (7 - 25 %) 16.3 Hematology CBC w Diff NO MAN DIFF REQ NO MAN DIFF REQ WBC (4.8 - 10.8 /CUMM) 11.0 H 10.2 RBC (4.70 - 6.10 /CUMM) 3.11 L 3.32 L Hgb (14.0 - 18.0 G/DL) 7.9 L 8.5 L Hct (42 - 52 %) 24.7 L 26.4 L MCV (80.0 - 94.0 FL) 79.2 L 79.4 L MCH (27.0 - 31.0 PG) 25.5 L 25.5 L RDW (11.5 - 14.5 %) 20.1 H 19.7 H Plt Count (130 - 400 /CUMM) 594 H 606 H MPV (7.4 - 10.4 FL) 6.9 L 7.3 L Gran % (42.2 - 75.2 %) 75.4 H 72.3 Lymphocytes % (20.5 - 51.1 %) 6.2 L 9.3 L Monocytes % (1.7 - 9.3 %) 16.6 H 16.6 H Eosinophils % (0 - 5 %) 1.2 1.5 Basophils % (0.0 - 2.0 %) 0.6 0.3 Absolute Granulocytes (1.4 - 6.5 /CUMM) 8.3 H 7.4 H Absolute Lymphocytes (1.2 - 3.4 /CUMM) 0.7 L 1.0 L Absolute Monocytes (0.10 - 0.60 /CUMM) 1.8 H 1.7 H Absolute Eosinophils (0.0 - 0.7 /CUMM) 0.1 0.2 Absolute Basophils (0.0 - 0.2 /CUMM) 0.1 0 PUBS MCHC (33.0 - 37.0 G/DL) 32.2 L 32.2 L 02/04 0615 Chemistry Sodium (137 - 145 mmol/L) 134 L Potassium (3.5 - 5.1 mmol/L) 4.0 Chloride (98 - 107 mmol/L) 100 Carbon Dioxide (22 - 30 mmol/L) 24 Anion Gap (5 - 16) 11 BUN (9 - 20 mg/dL) 17 Creatinine (0.7 - 1.2 mg/dL) 0.9 Estimated GFR (>60 ml/min) > 60 BUN/Creatinine Ratio (7 - 25 %) 18.9 Hematology CBC w Diff NO MAN DIFF REQ WBC (4.8 - 10.8 /CUMM) 10.3 RBC (4.70 - 6.10 /CUMM) 2.80 L Hgb (14.0 - 18.0 G/DL) 7.2 *L Hct (42 - 52 %) 22.3 L MCV (80.0 - 94.0 FL) 79.5 L MCH (27.0 - 31.0 PG) 25.7 L RDW (11.5 - 14.5 %) 20.1 H Plt Count (130 - 400 /CUMM) 608 H MPV (7.4 - 10.4 FL) 7.1 L Gran % (42.2 - 75.2 %) 72.2 Lymphocytes % (20.5 - 51.1 %) 8.6 L Monocytes % (1.7 - 9.3 %) 17.1 H Eosinophils % (0 - 5 %) 1.7 Basophils % (0.0 - 2.0 %) 0.4 Absolute Granulocytes (1.4 - 6.5 /CUMM) 7.4 H Absolute Lymphocytes (1.2 - 3.4 /CUMM) 0.9 L Absolute Monocytes (0.10 - 0.60 /CUMM) 1.8 H Absolute Eosinophils (0.0 - 0.7 /CUMM) 0.2 Absolute Basophils (0.0 - 0.2 /CUMM) 0 PUBS MCHC (33.0 - 37.0 G/DL) 32.3 L Disposition Summary Disposition Principal Diagnosis: Also mental status and confusion Secondary to dehydration Additional Diagnosis: 2.Hospital aquired PNA treated with IV abx and now discharged to complete totsal 10 days pf PO abx therapy with PO bactram 2. Recent C. difficile infection s/p completion of 14 days of abx therapoy with po vancomycin. 3. Acute blood loss anemia likely secondary to GI bleed 4. Urinary incontinence from the suprapubic catheter 5. Paraplegic 6. History of diabetes, 7. History of hypertension 8. History of hyperlipidemia 9. History of previous bilateral pulmonary embolism currently on Xarelto Discharge Disposition: SNF Discharge Instructions General Discharge Information Code Status: Full Code Patient's Diet: As tolerated Patient's Activity: As tolerated Follow-Up Instructions/Appts: Please follow with PCP in one week Please follow-up with senior international tax manager in 1 week Medications at Discharge Discharge Medications: Stop taking the following medications: Potassium Chloride (Potassium Chloride) 20 MEQ TAB.ER.PRT ORAL Every night Vancomycin HCl (Vancocin HCl) 125 MG CAPSULE ORAL EVERY SIX HOURS Qty = 3 Continue taking these medications: Aspirin (Ecotrin*) 81 MG TABLET.DR 1 Tablet ORAL DAILY Comments: Last Taken: 01/29/17 Time: 10:11 AM Oxycodone HCl (Oxycodone HCl) 10 MG TABLET 1 Tablet ORAL Q8H Comments: NOT GIVEN Ergocalciferol (Vitamin D2) (Vitamin D2) 50,000 UNIT CAPSULE 1 Capsule ORAL ONCE A MONTH Comments: NOT GIVEN Mirtazapine (Mirtazapine) 15 MG TABLET 0.5 Tablet ORAL TAKE AT BEDTIME Comments: NOT GIVEN Atorvastatin Calcium (Lipitor) 10 MG TABLET 1 Tablet ORAL DAILY Comments: Last Taken: 01/28/17 Time: 15:56 Ipratropium/Albuterol Sulfate (Iprat-Albut 0.5-3(2.5) MG/3 Ml) 0.5 MG-3 MG (2.5 MG BASE)/3 ML AMPUL.NEB 1 VIAL Inhale through mouth THREE TIMES DAILY Comments: NOT GIVEN Levetiracetam (Keppra) 500 MG TABLET 1 Tablet ORAL Every Morning Comments: Last Taken: 01/29/17 Time: 10:11 AM Furosemide (Lasix) 20 MG TABLET 1 Tablet ORAL EVERY 48 HOURS (Every 2 days) Comments: NOT GIVEN Omeprazole (Omeprazole) 20 MG CAPSULE.DR 1 Capsule ORAL DAILY Comments: NOT GIVEN Baclofen (Baclofen) 10 MG TABLET 1 Tablet ORAL DAILY Comments: NOT GIVEN Multivitamin (Multi-Day Vitamins) 1 EACH TABLET 1 Tablet ORAL DAILY Comments: NOT GIVEN [place]-3/Dha/Epa/Fish Oil (Fish Oil 1,000 MG Softgel) 1,000 MG (120 MG-180 MG) CAPSULE 1 Capsule ORAL DAILY Comments: NOT GIVEN Saccharomyces Boulardii (Florastor) 250 MG CAPSULE 1 Tablet ORAL TAKE AT BEDTIME Comments: NOT GIVEN Metformin HCl (Metformin HCl) 500 MG TABLET 1 Tablet ORAL TWICE DAILY Comments: NOT GIVEN Mometasone/Formoterol (Dulera 100 Mcg/5 Mcg Inhaler) 100 MCG-5 MCG/ACTUATION HFA.AER.AD 2 Puff Inhale through mouth TWICE DAILY Comments: NOT GIVEN Cyanocobalamin (Vitamin B-12) (Vitamin B-12) 100 MCG TABLET 1 Tablet ORAL DAILY Comments: NOT GIVEN Psyllium Husk (Metamucil) (Unknown Strength) CAPSULE 1 Capsule ORAL DAILY Comments: NOT GIVEN Melatonin (Melatonin) 5 MG TABLET 1 Tablet ORAL TAKE AT BEDTIME Comments: Last Taken: 01/28/17 Time: 20:52 Bisacodyl (Bisacodyl) 10 MG SUPP.RECT 1 Suppository RECTAL as needed for CONSTIPATION Comments: NOT GIVEN Na Phos,M-B/Na Phos,Di-Ba (Fleet Enema) 19 GRAM-7 GRAM/118 ML ENEMA 1 Enema RECTAL DAILY as needed for CONSTIPATION Comments: NOT GIVEN Acetaminophen (Q-Pap) 325 MG TABLET 2 Tablet ORAL Q4H as needed for PAIN/TEMP>/100 Comments: NOT GIVEN Magnesium Hydroxide (Milk Of Magnesia) 400 MG/5 ML ORAL.SUSP 30 Milliliters ORAL DAILY as needed for CONSTIPATION Comments: NOT GIVEN Trazodone HCl (Trazodone HCl) 50 MG TABLET 0.5 Tablet ORAL Q12H as needed for UNKNOWN Comments: Last Taken: 01/26/17 Time: 22:16 Lisinopril (Zestril) 10 MG TABLET 1 Tablet ORAL DAILY Comments: NOT GIVEN Tolterodine Tartrate (Detrol LA) 4 MG CAP.ER.24H 1 Capsule ORAL DAILY Comments: NOT GIVEN Ondansetron HCl (Zofran) 4 MG TABLET 1 Tablet ORAL Q8H as needed for N/V Comments: NOT GIVEN Acetaminophen (Acephen) 650 MG SUPP.RECT 1 SUPPOSITORY RECTALLY Q4H as needed for PAIN/TEMP>100 Comments: NOT GIVEN Rivaroxaban (Xarelto) 20 MG TABLET 1 Tablet ORAL DAILY Qty = 30 Comments: Last Taken: 01/29/17 Time: 10:10 AM Protein Supplement (Promod) 946 ML LIQUID 30 Milliliters ORAL THREE TIMES DAILY Start taking the following new medications: Sulfamethoxazole/Trimethoprim (Bactrim Ds Tablet) 800 MG-160 MG TABLET 1 Tablet ORAL TWICE DAILY Days = 3 No Refills Copies To: KELSEY MULLIGAN,SLIM Avalos; LOPEZ MULLIGAN,SUHA
[2017-02-06 08:05] LABS: ABSOLUTE BASOPHIL COUNT 0.1 /CUMM (0.0-0.2); ABSOLUTE EOSINOPHIL COUNT 0.2 /CUMM (0.0-0.7); ABSOLUTE LYMPH COUNT 1.3 /CUMM (1.2-3.4); ABSOLUTE MONOCYTE COUNT 1.9 /CUMM (0.10-0.60); BASOPHIL % 0.6 % (0.0-2.0); EOSINOPHIL % 1.7 % (0-5); GRANULOCYTE % 70.4 % (42.2-75.2); HEMATOCRIT 27.6 % (42-52); MEAN CORPUSCULAR HGB 25.6 PG (27.0-31.0); MEAN CORPUSCULAR HGB CONC 32.2 G/DL (33.0-37.0); MEAN CORPUSCULAR VOLUME 79.4 FL (80.0-94.0); MEAN PLATELET VOLUME 6.9 FL (7.4-10.4); PLATELET COUNT 677 /CUMM (130-400); RBC DISTRIBUTION WIDTH 20.1 % (11.5-14.5); RED BLOOD CELL CT 3.48 /CUMM (4.70-6.10); WHITE BLOOD CELL COUNT 11.4 /CUMM (4.8-10.8)
--- NOTE | 2017-02-06 08:40 | Patient Discharge Instructions ---
Discharge Instructions General Discharge Information You were seen/treated for: altered mental status and confusion c diff colitis on po vancomycin Special Instructions: Please f/u with your pcp in 1 week of discharge. please repeat BEP within 3 days of discharge and in particular potassium levels Acute Coronary Syndrome Inclusion Criteria At DC or during hospital stay patient has or had the following: ACS DIAGNOSIS No Discharge Core Measures Meds if any: Prescribed or Continued at Discharge Meds if any: NOT Prescribed or Continued at Discharge Congestive Heart Failure Inclusion Criteria At DC or during hospital stay patient has or had the following: CHF DIAGNOSIS No Discharge Core Measures Meds if any: Prescribed or Continued at Discharge Meds if any: NOT Prescribed or Continued at Discharge Cerebrovascular accident Inclusion Criteria At DC or during hospital stay patient has or had the following: CVA/TIA Diagnosis No Discharge Core Measures Meds if any: Prescribed or Continued at Discharge Meds if any: NOT Prescribed or Continued at Discharge Venous thromboembolism Inclusion Criteria VTE Diagnosis No VTE Type NONE VTE Confirmed by (Test) NONE Discharge Core Measures - Per Current guidelines, there needs to be overlap - treatment for the first 5 days of Warfarin therapy. - If discharged on Warfarin prior to 5 days of - overlap therapy, the patient will need to be - assessed for post discharge needs including - *Post discharge parental anticoagulation - *Warfarin and/or parental anticoagulation education - *Follow up date to check INR post discharge At least 5 days overlap therapy as Inpatient No Meds if any: Prescribed or Continued at Discharge Note: Overlap Therapy is Warfarin and Anticoagulant Meds if any: NOT Prescribed or Continued at Discharge
--- NOTE | 2017-02-06 10:12 | PN- Att Addend ---
Attending Addendum Attending Brief Note Patient has minimal complaints and he appears alert and oriented General Appearance: Alert, No Acute Distress Skin: Grossly normal HEENT: PEERLA Neck: Supple, No JVD Cardiovascular: Regular Rate, Normal S1, Normal S2, No Murmurs Lungs: Clear to Auscultation, Normal Air Movement Abdomen: Decubitus sacral ulcer, colostomy bag with no abdominal pain Neurological: Normal Speech, Strength at 5/5 X4 Ext, Cranial Nerves 3-12 NL, Reflexes 2+ Extremities: No Clubbing, No Cyanosis, No Edema Vascular: Normal Pulses Assessment Patient has minimal symptoms and he reports formed stool in his colostomy. Hypoxic respiratory failure with chest x-ray negative. His oxygen requirements have improved and we will taper as tolerated. Patient is otherwise stable for discharge on vancomycin. Plan Continue vancomycin Taper oxygen as tolerated Continue all other meds Encourage by mouth fluids Stable for discharge Current Medications Sig/Mey Start time Last Medication Dose Route Stop Time Status Admin Acetaminophen 650 MG Q6P PRN 02/06 0030 AC 02/06 PO 0026 Albuterol Sulfate 3 ML Q4P PRN 02/02 2315 AC 02/03 INH 1109 Aspirin Buffered 81 MG DAILY 02/06 1000 AC 02/06 PO 0911 Atorvastatin Calcium 10 MG DAILY 02/03 1000 AC 02/06 PO 0911 Budesonide/ 2 PUF BID 02/02 2200 AC 02/06 Formoterol Fumarate INH 0912 Furosemide 20 MG Q48 02/06 1000 AC 02/06 PO 0911 Insulin Aspart 0 TIDAC 02/03 1200 AC 02/03 SC 1225 Levetiracetam 500 MG QAM 02/03 1000 AC 02/06 PO 0911 Melatonin 3 MG ONCE ONE 02/06 0200 DC 02/06 PO 02/06 0201 0155 Omeprazole 20 MG DAILY 02/06 1000 AC 02/06 PO 0911 Oxybutynin Chloride 10 MG TID 02/05 1600 AC 02/06 PO 0911 Oxybutynin Chloride 2.5 MG BID 02/02 2200 DC 02/05 PO 1017 Oxycodone HCl 10 MG Q8P PRN 02/05 1900 AC 02/06 PO 0911 Pantoprazole Sodium 40 MG DAILY 02/04 1413 DC 02/05 IV 1010 Rivaroxaban 20 MG DAILY 02/05 1000 AC 02/06 PO 0911 Sodium Chloride 1,000 ML Q13H 02/02 1730 DC 02/05 IV 0433 Vancomycin HCl 125 MG Q6 02/02 1800 AC 02/06 PO 0626 Laboratory Tests 02/06 02/05 0646 1955 Chemistry Sodium (137 - 145 mmol/L) 137 Potassium (3.5 - 5.1 mmol/L) 4.8 Chloride (98 - 107 mmol/L) 100 Carbon Dioxide (22 - 30 mmol/L) 28 Anion Gap (5 - 16) 9 BUN (9 - 20 mg/dL) 13 Creatinine (0.7 - 1.2 mg/dL) 0.8 Estimated GFR (>60 ml/min) > 60 BUN/Creatinine Ratio (7 - 25 %) 16.3 Hematology CBC w Diff NO MAN DIFF REQ NO MAN DIFF REQ WBC (4.8 - 10.8 /CUMM) 11.4 H 11.6 H RBC (4.70 - 6.10 /CUMM) 3.48 L 3.19 L Hgb (14.0 - 18.0 G/DL) 8.9 L 8.3 L Hct (42 - 52 %) 27.6 L 25.2 L MCV (80.0 - 94.0 FL) 79.4 L 79.1 L MCH (27.0 - 31.0 PG) 25.6 L 25.9 L RDW (11.5 - 14.5 %) 20.1 H 20.0 H Plt Count (130 - 400 /CUMM) 677 H 651 H MPV (7.4 - 10.4 FL) 6.9 L 6.7 L Gran % (42.2 - 75.2 %) 70.4 78.7 H Lymphocytes % (20.5 - 51.1 %) 11.0 L 7.9 L Monocytes % (1.7 - 9.3 %) 16.3 H 12.3 H Eosinophils % (0 - 5 %) 1.7 0.7 Basophils % (0.0 - 2.0 %) 0.6 0.4 Absolute Granulocytes (1.4 - 6.5 /CUMM) 8.0 H 9.1 H Absolute Lymphocytes (1.2 - 3.4 /CUMM) 1.3 0.9 L Absolute Monocytes (0.10 - 0.60 /CUMM) 1.9 H 1.4 H Absolute Eosinophils (0.0 - 0.7 /CUMM) 0.2 0.1 Absolute Basophils (0.0 - 0.2 /CUMM) 0.1 0 PUBS MCHC (33.0 - 37.0 G/DL) 32.2 L 32.7 L Vital Signs Date Time Temp Pulse Resp B/P B/P Pulse O2 O2 Flow FiO2 Mean Ox Delivery Rate 02/06 0644 97.6 88 20 124/50 95 Nasal 4.0L Cannula 02/06 0000 Nasal 4.0L Cannula 02/05 2300 110/55 02/05 2215 98.5 120 20 90/40 93 Nasal 4.0L Cannula 02/05 2150 93 Nasal 4.0L Cannula 02/05 1600 Nasal 4.0L Cannula 02/05 1429 98.1 88 18 128/62 98 Nasal 2.0L Cannula 02/05 1202 95 Nasal 4.0L Cannula
--- NOTE | 2017-02-06 12:04 | NUR ---
NURSING NOTE: PATIENT OFF FLOOR VIA STRETCHER WITH DISTRIBUTION FOR CHEST XRAY. PATIENT A/OX3, ON ROOM AIR FOR BASELINE. DENIES PAIN AT THIS TIME. WILL CONTINUE TO MONITOR.
--- NOTE | 2017-02-06 12:40 | NUR ---
NURSING NOTE: PATIENT RETURNED TO FLOOR VIA STRETCHER FROM XRAY. PATIENT A/OX3, ROOM AIR, PAIN TOLERABLE PER PATIENT. WILL CONTINUE TO MONITOR.
--- NOTE | 2017-02-06 14:13 | PN- Infect Dx ---
Subjective Subjective: Afebrile without complaints. He denies any shortness of breath or chest discomfort. Objective Last 24 Hrs of Vital Signs/I&O Vital Signs Date Time Temp Pulse Resp B/P B/P Pulse O2 O2 Flow FiO2 Mean Ox Delivery Rate 02/06 1017 98 Nasal 4.0L Cannula 02/06 0644 97.6 88 20 124/50 95 Nasal 4.0L Cannula 02/06 0000 Nasal 4.0L Cannula 02/05 2300 110/55 02/05 2215 98.5 120 20 90/40 93 Nasal 4.0L Cannula 02/05 2150 93 Nasal 4.0L Cannula 02/05 1600 Nasal 4.0L Cannula 02/05 1429 98.1 88 18 128/62 98 Nasal 2.0L Cannula Intake & Output 02/06 1600 02/06 0800 02/06 0000 Intake Total 150 400 Output Total 270 300 Balance -120 100 Intake, Oral 150 400 Output, Stool 70 100 Output, Urine 200 200 Physical Exam Other Physical Findings: He appears comfortable in no acute distress Lungs decreased breath sounds bilaterally Heart regular rhythm with no murmur Abdomen soft, nontender; colostomy with stool becoming more formed Results Last 24 Hours of Lab Results: Laboratory Tests 02/06 02/05 0646 1955 Chemistry Sodium (137 - 145 mmol/L) 137 Potassium (3.5 - 5.1 mmol/L) 4.8 Chloride (98 - 107 mmol/L) 100 Carbon Dioxide (22 - 30 mmol/L) 28 Anion Gap (5 - 16) 9 BUN (9 - 20 mg/dL) 13 Creatinine (0.7 - 1.2 mg/dL) 0.8 Estimated GFR (>60 ml/min) > 60 BUN/Creatinine Ratio (7 - 25 %) 16.3 Hematology CBC w Diff NO MAN DIFF REQ NO MAN DIFF REQ WBC (4.8 - 10.8 /CUMM) 11.4 H 11.6 H RBC (4.70 - 6.10 /CUMM) 3.48 L 3.19 L Hgb (14.0 - 18.0 G/DL) 8.9 L 8.3 L Hct (42 - 52 %) 27.6 L 25.2 L MCV (80.0 - 94.0 FL) 79.4 L 79.1 L MCH (27.0 - 31.0 PG) 25.6 L 25.9 L RDW (11.5 - 14.5 %) 20.1 H 20.0 H Plt Count (130 - 400 /CUMM) 677 H 651 H MPV (7.4 - 10.4 FL) 6.9 L 6.7 L Gran % (42.2 - 75.2 %) 70.4 78.7 H Lymphocytes % (20.5 - 51.1 %) 11.0 L 7.9 L Monocytes % (1.7 - 9.3 %) 16.3 H 12.3 H Eosinophils % (0 - 5 %) 1.7 0.7 Basophils % (0.0 - 2.0 %) 0.6 0.4 Absolute Granulocytes (1.4 - 6.5 /CUMM) 8.0 H 9.1 H Absolute Lymphocytes (1.2 - 3.4 /CUMM) 1.3 0.9 L Absolute Monocytes (0.10 - 0.60 /CUMM) 1.9 H 1.4 H Absolute Eosinophils (0.0 - 0.7 /CUMM) 0.2 0.1 Absolute Basophils (0.0 - 0.2 /CUMM) 0.1 0 PUBS MCHC (33.0 - 37.0 G/DL) 32.2 L 32.7 L Last 24 Hours of Perfecto Results: Blood cultures 2 February 02 remain negative Recent Imaging Studies: Chest x-ray February 06 reveals an increased left upper lobe density with increased haziness of the right base Assessment/Plan Impression: Remains stable on po Vancomycin now Day 11 of treatment for C. difficile, with stools becoming more formed and with temperatures and white blood cell count essentially normal but with chest x-ray revealing increased left upper lobe and right lower lobe densities, possibly secondary to fluid overload, with his I's significantly greater than his O's since admission, or pneumonia, though his respiratory status remains stable. Suggestion: 1. Consider CT of the chest 2. Urology evaluation at some point regarding his persistent leakage from the suprapubic tube 3. Continue oral Vancomycin
--- NOTE | 2017-02-06 14:32 | RADIOLOGY REPORT ---
EXAMINATION: XR CHEST CLINICAL INFORMATION: Upright chest x-ray for atelectasis. Hypoxia. COMPARISON: Several prior chest x-rays, most recent of which is dated 02/02/2017. TECHNIQUE: 2 views of the chest were obtained. Evaluation on the lateral films is limited due to suboptimal patient positioning. FINDINGS: The patient is status post median sternotomy and CABG surgery. The cardiomediastinal silhouette is enlarged. There is volume loss in the left hemithorax with slight elevation of the left hemidiaphragm. Dense consolidation is seen in the left upper lobe extending from the pulmonary hilum to the mid and upper left lung periphery. Associated air bronchograms are seen. Findings are suspicious for dense pneumonia. There is some linear subsegmental atelectasis seen in the left lower lobe. Linear reticular opacities medially in the right lower lobe are also likely related to atelectasis. Remainder of the right lung is clear. Small left-sided effusion is seen. IMPRESSION: 1. Progressive consolidation is seen in the left upper lobe compared to 02/02/2017, suspicious for a dense pneumonia. 2. Persistent volume loss in the left lung base with subsegmental atelectasis and small effusion seen. 3. Mild subsegmental atelectasis in both lung bases.
[2017-02-06 14:38] VITALS: BP 122/60
--- NOTE | 2017-02-06 15:30 | NUR ---
NURSING NOTE: PATIENT LEFT FLOOR VIA STRETCHER WITH DISTRIBUTION FOR CT SCAN. A/OX3, PAIN TOLERABLE, ROOM AIR, WILL AWAIT RETURN
--- NOTE | 2017-02-06 16:00 | NUR ---
NURSING NOTE: PATIENT RETURNED FROM CT SCAN WITH DISTRIBUTION VIA STRETCHER. PATIENT A/O, C/O PAIN AT THIS TIME REQUIRING MEDS. WILL CONTINUE TO MONITOR.
[2017-02-06 22:25] VITALS: BP 118/66
--- NOTE | 2017-02-06 22:51 | CT SCAN REPORT ---
EXAMINATION: CT CHEST WITHOUT CONTRAST CLINICAL INFORMATION: Worsening chest x-ray with increased left upper lobe consolidation and mild increase in WBCs. Pneumonia on left lung. COMPARISON: Chest x-ray dated 02/06/2017. CT scan of the abdomen and pelvis dated 01/25/2017. CT scan of the chest dated 11/30/2016 and 08/03/2013. TECHNIQUE: Multidetector volumetric CT imaging of the chest was obtained noncontrast. Sagittal and coronal reformations were obtained. DLP: 287.83 mGy-cm. FINDINGS: LUNGS: As seen on the chest x-ray, there is dense consolidation with air bronchograms seen in the apical posterior segment of the left upper lobe, extending from the hilum to the posterior and lateral pleural surface. The central airway remains patent without intraluminal mass or mucous plugging noted. No definite central mass appreciated. Findings are new from prior CT scan from 12/25/2016 and progressive compared to chest x-ray from 02/02/2017. There is also increasing volume loss and consolidation seen in the left lower lobe also with associated air bronchograms and diffuse pleural thickening. Small amount of dependent atelectasis and posterior pleural thickening is noted in the right lung base. No significant pleural effusion is seen. LYMPHOVASCULAR STRUCTURES: 4.3 cm ascending aortic aneurysm, 3.2 cm aortic arch, 4.5 x 5.5 cm distal thoracic aorta just above the diaphragmatic hiatus, and 3.7 cm abdominal aortic aneurysm with chronic dissection again seen, all unchanged compared to 12/25/2016. Mild atherosclerotic calcifications of the aorta and great vessels, moderate calcifications of the visceral branches of the upper abdominal aorta, and severe coronary artery calcifications again seen. No periaortic collection or pericardial effusion. Dilatation of the left atrium and left ventricle again noted. Status post median sternotomy and CABG surgery. Scattered small mediastinal lymph nodes is seen with largest one measuring just 1 cm in short axis in the left prevascular space. No hilar or axillary adenopathy or free fluid collection. THYROID GLAND: Unremarkable to the extent included. UPPER ABDOMEN: Bilateral variably sized low-attenuation masses is seen in the kidneys, less well visualized than on prior contrast-enhanced exams, but similar to appearance on prior CT scan of the abdomen and pelvis from 11/30/2016. Mild asymmetric atrophy of the left kidney is also unchanged. Remainder of upper abdominal organs grossly unremarkable to the extent included. BONES: Status post median sternotomy. Old healed fracture deformity of posterior lateral left sixth and seventh ribs with pseudoarthrosis again seen, unchanged. Mild multilevel vertebral spondylosis and moderate vertebral spondylosis at T9-T10. IMPRESSION: 1. Dense consolidation is now also seen in the left upper lobe with progressive consolidation in the left lower lobe. Findings are suspicious for multifocal pneumonia. No significant associated parapneumonic effusion is seen. 2. Linear area of chronic atelectasis or scarring in the right lower lobe with associated mild dependent atelectasis and pleural thickening. 3. Borderline enlarged left prevascular lymph node, likely reactive to the pulmonary process. 4. No change in other incidental findings, including cardiomegaly, chronic descending thoracic and upper abdominal aortic dissection, thoracic aortic aneurysm, severe coronary artery calcifications, and bilateral renal cysts with asymmetric atrophy of the left kidney.
[2017-02-06 23:55] VITALS: BP 134/76
[2017-02-07 08:22] LABS: ABSOLUTE BASOPHIL COUNT 0.1 /CUMM (0.0-0.2); ABSOLUTE EOSINOPHIL COUNT 0.3 /CUMM (0.0-0.7); ABSOLUTE GRANULOCYTE CT 8.9 /CUMM (1.4-6.5); ABSOLUTE LYMPH COUNT 1.2 /CUMM (1.2-3.4); BASOPHIL % 0.5 % (0.0-2.0); EOSINOPHIL % 2.2 % (0-5); GRANULOCYTE % 71.1 % (42.2-75.2); HEMATOCRIT 26.1 % (42-52); MEAN CORPUSCULAR HGB 25.7 PG (27.0-31.0); MEAN CORPUSCULAR HGB CONC 32.5 G/DL (33.0-37.0); MEAN CORPUSCULAR VOLUME 79.1 FL (80.0-94.0); MEAN PLATELET VOLUME 6.8 FL (7.4-10.4); PLATELET COUNT 634 /CUMM (130-400); RBC DISTRIBUTION WIDTH 20.5 % (11.5-14.5); WHITE BLOOD CELL COUNT 12.6 /CUMM (4.8-10.8)
[2017-02-07 09:00] VITALS: BP 104/60
--- NOTE | 2017-02-07 10:18 | PN- Att Addend ---
Attending Addendum Attending Brief Note Patient has minimal complaints and he appears alert and oriented General Appearance: Alert, No Acute Distress Skin: Grossly normal HEENT: PEERLA Neck: Supple, No JVD Cardiovascular: Regular Rate, Normal S1, Normal S2, No Murmurs Lungs: Clear to Auscultation, Normal Air Movement Abdomen: Decubitus sacral ulcer, colostomy bag with no abdominal pain Neurological: Normal Speech, Strength at 5/5 X4 Ext, Cranial Nerves 3-12 NL, Reflexes 2+ Extremities: No Clubbing, No Cyanosis, No Edema Vascular: Normal Pulses Assessment CT chest suggest multifocal pneumonia that is progressing. However clinically patient appears improved currently requiring no oxygen. C. difficile symptoms improved although his leukocytosis is gradually trending up. At this point we will involve pulmonary. Plan Continue po vancomycin Antibiotics as per ID Pulmonary consult Continue all other meds Encourage by mouth fluids Current Medications Sig/Mey Start time Last Medication Dose Route Stop Time Status Admin Acetaminophen 650 MG Q6P PRN 02/06 0030 AC 02/06 PO 2248 Albuterol Sulfate 3 ML Q4P PRN 02/02 2315 AC 02/03 INH 1109 Aspirin Buffered 81 MG DAILY 02/06 1000 AC 02/07 PO 0921 Atorvastatin Calcium 10 MG DAILY 02/03 1000 AC 02/07 PO 0921 Budesonide/ 2 PUF BID 02/02 2200 AC 02/07 Formoterol Fumarate INH 0923 Ceftazidime 1,000 MG IQ8 02/07 0800 CAN IV Furosemide 20 MG Q48 02/06 1000 AC 02/06 PO 0911 Insulin Aspart 0 TIDAC 02/03 1200 AC 02/06 SC 1328 Levetiracetam 500 MG QAM 02/03 1000 AC 02/07 PO 0921 Omeprazole 20 MG DAILY 02/06 1000 AC 02/07 PO 0921 Oxybutynin Chloride 10 MG TID 02/05 1600 AC 02/07 PO 0921 Oxycodone HCl 10 MG Q8P PRN 02/05 1900 AC 02/07 PO 0917 Patient Medication 1 ED .STK-MED ONE 02/06 1359 DC Teaching ED 02/06 1400 Rivaroxaban 20 MG DAILY 02/05 1000 AC 02/07 PO 0920 Sodium Hypochlorite 1 HILARIA DAILY 02/07 1000 AC TOP Vancomycin HCl 125 MG Q6 02/07 0115 AC 02/07 PO 0616 Vancomycin HCl 1,000 MG Q12 02/07 0115 CAN Sodium Chloride 250 ML IV Vancomycin HCl 125 MG Q6 02/02 1800 DC 02/06 PO 1739 Laboratory Tests 02/07 0630 Hematology CBC w Diff NO MAN DIFF REQ WBC (4.8 - 10.8 /CUMM) 12.6 H RBC (4.70 - 6.10 /CUMM) 3.30 L Hgb (14.0 - 18.0 G/DL) 8.5 L Hct (42 - 52 %) 26.1 L MCV (80.0 - 94.0 FL) 79.1 L MCH (27.0 - 31.0 PG) 25.7 L RDW (11.5 - 14.5 %) 20.5 H Plt Count (130 - 400 /CUMM) 634 H MPV (7.4 - 10.4 FL) 6.8 L Gran % (42.2 - 75.2 %) 71.1 Lymphocytes % (20.5 - 51.1 %) 9.9 L Monocytes % (1.7 - 9.3 %) 16.3 H Eosinophils % (0 - 5 %) 2.2 Basophils % (0.0 - 2.0 %) 0.5 Absolute Granulocytes (1.4 - 6.5 /CUMM) 8.9 H Absolute Lymphocytes (1.2 - 3.4 /CUMM) 1.2 Absolute Monocytes (0.10 - 0.60 /CUMM) 2.0 H Absolute Eosinophils (0.0 - 0.7 /CUMM) 0.3 Absolute Basophils (0.0 - 0.2 /CUMM) 0.1 PUBS MCHC (33.0 - 37.0 G/DL) 32.5 L Vital Signs Date Time Temp Pulse Resp B/P B/P Pulse O2 O2 Flow FiO2 Mean Ox Delivery Rate 02/07 0900 98.6 102 20 104/60 95 Room Air 02/07 0816 94 Nasal 4.0L Cannula 02/07 0000 94 Room Air 02/06 2355 95 02/06 2225 99.0 112 20 118/66 91 02/06 1438 98.4 96 20 122/60 96 Room Air
--- NOTE | 2017-02-07 10:44 | PN- Infect Dx ---
Subjective Subjective: Afebrile. He feels well with no complaints. He has been off oxygen since yesterday and notes only his usual mild, nonproductive cough. His stools have become somewhat more formed. Objective Last 24 Hrs of Vital Signs/I&O Vital Signs Date Time Temp Pulse Resp B/P B/P Pulse O2 O2 Flow FiO2 Mean Ox Delivery Rate 02/07 0900 98.6 102 20 104/60 95 Room Air 02/07 0816 94 Nasal 4.0L Cannula 02/07 0000 94 Room Air 02/06 2355 95 02/06 2225 99.0 112 20 118/66 91 02/06 1438 98.4 96 20 122/60 96 Room Air Intake & Output 02/07 1600 02/07 0800 02/07 0000 Intake Total 800 200 Output Total 1200 200 Balance -400 0 Intake, Oral 800 200 Output, Stool 600 Output, Urine 600 200 Physical Exam Other Physical Findings: He appears comfortable in no acute distress Lungs decreased breath sounds on the left Heart regular rhythm with no murmur Abdomen is soft, nontender with positive bowel sounds; colostomy with stool more formed; suprapubic catheter with no inflammation at the site Extremities trace edema both lower extremities Results Last 24 Hours of Lab Results: Laboratory Tests 02/07 0630 Hematology CBC w Diff NO MAN DIFF REQ WBC (4.8 - 10.8 /CUMM) 12.6 H RBC (4.70 - 6.10 /CUMM) 3.30 L Hgb (14.0 - 18.0 G/DL) 8.5 L Hct (42 - 52 %) 26.1 L MCV (80.0 - 94.0 FL) 79.1 L MCH (27.0 - 31.0 PG) 25.7 L RDW (11.5 - 14.5 %) 20.5 H Plt Count (130 - 400 /CUMM) 634 H MPV (7.4 - 10.4 FL) 6.8 L Gran % (42.2 - 75.2 %) 71.1 Lymphocytes % (20.5 - 51.1 %) 9.9 L Monocytes % (1.7 - 9.3 %) 16.3 H Eosinophils % (0 - 5 %) 2.2 Basophils % (0.0 - 2.0 %) 0.5 Absolute Granulocytes (1.4 - 6.5 /CUMM) 8.9 H Absolute Lymphocytes (1.2 - 3.4 /CUMM) 1.2 Absolute Monocytes (0.10 - 0.60 /CUMM) 2.0 H Absolute Eosinophils (0.0 - 0.7 /CUMM) 0.3 Absolute Basophils (0.0 - 0.2 /CUMM) 0.1 PUBS MCHC (33.0 - 37.0 G/DL) 32.5 L Last 24 Hours of Perfecto Results: No recent cultures Recent Imaging Studies: CT of the chest February 06 reveals dense consolidation in the left upper lobe with progressive consolidation left lower lobe and linear areas of atelectasis or scarring in the right lower lobe Assessment/Plan Impression: Clinically improved on po Vancomycin now Day 12 of treatment for C. difficile, with stools becoming more formed, temperatures remaining normal and respiratory status improved, now off oxygen, but with chest x-ray and CT scan suggesting a new left upper lobe pneumonia and progression of the left lower lobe consolidation and with white blood cell count increasing. Am reluctant to restart antibiotics given his clinical improvement and recent C. difficile, but, given his CT findings, feel that it may be necessary to do so. His most recent sputum culture grew MRSA, which is a likely pathogen, though other organisms, namely gram-negatives, may need to be considered as well. Suggestion: 1. Attempt to obtain a sputum culture 2. Pulmonary follow-up 3. Begin Vancomycin 1 g IV every 12 hours and Ceftazidime 1 g IV every 8 hours pending above 4. Continue po Vancomycin
--- NOTE | 2017-02-07 12:53 | PN- Housestaff ---
Subjective Follow-up For: -Altered mental status and lethargic -Watery diarrhea secondary to C. difficile -Hospital-acquired pneumonia Subjective: Afebrile. WBCs increased to 12.6. Patient saturating well on room air. No acute overnight events reported. Patient reported improvement of his symptom. He denies any current active complaints. Review of Systems Constitutional: Reports: no symptoms. Objective Last 24 Hrs of Vital Signs/I&O Vital Signs Date Time Temp Pulse Resp B/P B/P Pulse O2 O2 Flow FiO2 Mean Ox Delivery Rate 02/07 0900 98.6 102 20 104/60 95 Room Air 02/07 0816 94 Nasal 4.0L Cannula 02/07 0000 94 Room Air 02/06 2355 95 02/06 2225 99.0 112 20 118/66 91 02/06 1438 98.4 96 20 122/60 96 Room Air Intake & Output 02/07 1600 02/07 0800 02/07 0000 Intake Total 800 200 Output Total 1200 200 Balance -400 0 Intake, Oral 800 200 Output, Stool 600 Output, Urine 600 200 Physical Exam General Appearance: Alert, Oriented X3, Cooperative, No Acute Distress HEENT: Atraumatic, PERRLA, EOMI, Mucous Membr. moist/pink Cardiovascular: Regular Rate, Normal S1, Normal S2, No Murmurs Lungs: increase air entry on the left side more than the right side Abdomen: Soft, No Tenderness, colostomy bag is filled with watery stool but more formed than yesterday Extremities: No Clubbing, No Cyanosis, No Edema Current Medications: Current Medications Sig/Mey Start time Last Medication Dose Route Stop Time Status Admin Acetaminophen 650 MG Q6P PRN 02/06 0030 AC 02/06 PO 2248 Albuterol Sulfate 3 ML Q4P PRN 02/02 2315 AC 02/03 INH 1109 Aspirin Buffered 81 MG DAILY 02/06 1000 AC 02/07 PO 0921 Atorvastatin Calcium 10 MG DAILY 02/03 1000 AC 02/07 PO 0921 Budesonide/ 2 PUF BID 02/02 2200 AC 02/07 Formoterol Fumarate INH 0923 Ceftazidime 1,000 MG IQ8 02/07 1600 UNVr IV Ceftazidime 1,000 MG IQ8 02/07 0800 CAN IV Furosemide 20 MG Q48 02/06 1000 AC 02/06 PO 0911 Insulin Aspart 0 TIDAC 02/03 1200 AC 02/07 SC 1229 Levetiracetam 500 MG QAM 02/03 1000 AC 02/07 PO 0921 Omeprazole 20 MG DAILY 02/06 1000 AC 02/07 PO 0921 Oxybutynin Chloride 10 MG TID 02/05 1600 AC 02/07 PO 0921 Oxycodone HCl 10 MG Q8P PRN 02/05 1900 AC 02/07 PO 0917 Patient Medication 1 ED .STK-MED ONE 02/06 1359 VT Teaching ED 02/06 1400 Rivaroxaban 20 MG DAILY 02/05 1000 AC 02/07 PO 0920 Sodium Hypochlorite 1 HILARIA DAILY 02/07 1000 AC TOP Vancomycin HCl 1,000 MG Q12 02/07 1254 UNir Sodium Chloride 250 ML IV Vancomycin HCl 125 MG Q6 02/07 0115 AC 02/07 PO 1228 Vancomycin HCl 1,000 MG Q12 02/07 0115 CAN Sodium Chloride 250 ML IV Vancomycin HCl 125 MG Q6 02/02 1800 DC 02/06 PO 1739 Last 24 Hrs of Lab/Perfecto Results Last 24 Hrs of Labs/Mics: Laboratory Tests 02/07/17 0630: CBC w Diff NO MAN DIFF REQ, RBC 3.30 L, MCV 79.1 L, MCH 25.7 L, RDW 20.5 H, MPV 6.8 L, Gran % 71.1, Lymphocytes % 9.9 L, Monocytes % 16.3 H, Eosinophils % 2.2, Basophils % 0.5, Absolute Granulocytes 8.9 H, Absolute Lymphocytes 1.2, Absolute Monocytes 2.0 H, Absolute Eosinophils 0.3, Absolute Basophils 0.1, PUBS MCHC 32.5 L Microbiology 02/07 1255 LOWER RESP: Respiratory Culture - ORD 02/07 125 LOWER RESP: Gram Stain - ORD 02/06 1455 LOWER RESP: Respiratory Culture - COLB 02/06 1455 LOWER RESP: Gram Stain - COLB Assessment/Plan Assessment: Assessment: #Severe sepsis most likely secondary to C. difficile and HAP He presented with hypotension and leukocytosis most likely secondary to dehydration given his watery diarrhea in the presence of positive C. difficile PCR. WBCs increased even though patient is on oral vancomycin. Chest x-ray followed by chest CT is suggestive of pneumonia. Patient was in the hospital recently and he grow MRSA on sputum during his last admission. * Continue oral vancomycin for C. difficile * Start IV vancomycin and IV ceftaz been * We will send sputum culture * We'll consult pulmonology * Will follow ID recommendation * CBC daily to follow WBCs #GI ulcer s/p EGD EGD that was done earlier this month, showed Fundic ulcer and Fundic submucosal lesion. GI recommended starting patient back on Xarelto and aspirin and to watch for GI symptoms. Patient H&H dropped at some point during this admission to 7.2, he received 1 packed RBCs transfusion after which his hemoglobin improved to 8.5. H&H is still stable this morning * CBC daily * We'll transfuse 1 packed RBCs to keep hemoglobin above 7 * Continue Xarelto after approved by GI * Continue PPI #Hx of PE * Continue Xarelto. * Informed GI if any symptom of bleeding #diabetic * Hold all oral antihyperglycemic medication * Sliding scale insulin * Accu-Cheks * diabetic diet #CAD * continue statin and aspirin #Suprapubic catheter and history of bladder cancer * Continue Oxybutynin 10 mg TID, as per urology Dr. Koch. #back ulcer stage IV * We will consult wound Carbohydrate diet DVT prophylaxis Xarelto Full code Problem List: 1. C. difficile colitis Pain Ratin Pain Location: back Pain Goal: Remain pain free Pain Plan: See A&P Tomorrow's Labs & Rationales: CBC for WBCs (active infection)
[2017-02-07 14:40] VITALS: BP 100/60
--- NOTE | 2017-02-07 17:58 | PN- Pulmonary ---
Subjective HPI/Critical Care Issues: I was asked to re-evaluate the patient for possible pneumonia. I have previously seen the patient in the [facility]. I have reviewed the patient's chart and post ICU course. The patient's hospital stay has been complicated by C. difficile colitis, treated with oral vancomycin. His stools have become more formed with treatment. The patient recently has had an increased WBC count and a CXR was done which demonstrated a worsening left lung infiltrate. A CT of the chest was done for closer evaluation which showed dense consolidation in the left upper lobe with progressive consolidation in the left lower lobe. Findings are suspicious for multifocal pneumonia. There was no significant associated parapneumonic effusion. The patient's oxygen requirements have fluctuated. He is afebrile. Sputum culture has been requested however he has not been able to submit a sputum. He has had MRSA in his sputum in the past. He has not had a swallowing evaluation. He was started on Vanco and Ceftaz for pneumonia coverage by ID. The patient has no cough, sputum production, chest congestion or increased shortness of breath. Objective Current Medications: Current Medications Sig/Mey Start time Last Medication Dose Route Stop Time Status Admin Acetaminophen 650 MG Q6P PRN 02/06 0030 AC 02/06 PO 2248 Albuterol Sulfate 3 ML Q4P PRN 02/02 2315 AC 02/03 INH 1109 Aspirin Buffered 81 MG DAILY 02/06 1000 AC 02/07 PO 0921 Atorvastatin Calcium 10 MG DAILY 02/03 1000 AC 02/07 PO 0921 Budesonide/ 2 PUF BID 02/02 2200 AC 02/07 Formoterol Fumarate INH 0923 Ceftazidime 1,000 MG IQ8 02/07 1600 AC 02/07 IV 1656 Ceftazidime 1,000 MG IQ8 02/07 0800 CAN IV Furosemide 20 MG Q48 02/06 1000 AC 02/06 PO 0911 Insulin Aspart 0 TIDAC 02/03 1200 AC 02/07 SC 1656 Levetiracetam 500 MG QAM 02/03 1000 AC 02/07 PO 0921 Omeprazole 20 MG DAILY 02/06 1000 AC 02/07 PO 0921 Oxybutynin Chloride 10 MG TID 02/05 1600 AC 02/07 PO 1656 Oxycodone HCl 10 MG Q8P PRN 02/05 1900 AC 02/07 PO 0917 Rivaroxaban 20 MG DAILY 02/05 1000 AC 02/07 PO 0920 Sodium Hypochlorite 1 HILARIA DAILY 02/07 1000 AC 02/07 TOP 1335 Vancomycin HCl 1,000 MG Q12H 02/07 2000 AC Sodium Chloride 250 ML IV Vancomycin HCl 1,000 MG Q12 02/07 1254 DC Sodium Chloride 250 ML IV Vancomycin HCl 125 MG Q6 02/07 0115 AC 02/07 PO 1228 Vancomycin HCl 1,000 MG Q12 02/07 0115 CAN Sodium Chloride 250 ML IV Vancomycin HCl 125 MG Q6 02/02 1800 DC 02/06 PO 1739 Vital Signs & I&O Last 24 Hrs of Vitals and I&O: Vital Signs Date Time Temp Pulse Resp B/P B/P Pulse O2 O2 Flow FiO2 Mean Ox Delivery Rate 02/07 1440 98.2 108 20 100/60 91 Room Air 02/07 0900 98.6 102 20 104/60 95 Room Air 02/07 0816 94 Nasal 4.0L Cannula 02/07 0000 94 Room Air 02/06 2355 95 02/06 2225 99.0 112 20 118/66 91 Intake & Output 02/07 1600 02/07 0800 02/07 0000 Intake Total 800 200 Output Total 300 1200 200 Balance -300 -400 0 Intake, Oral 800 200 Output, Stool 600 Output, Urine 300 600 200 Physical Exam General Appearance: Alert, Oriented X3, Cooperative, No Acute Distress HEENT: Atraumatic, PERRLA, EOMI, Mucous Membr. moist/pink Cardiovascular: Regular Rate, Normal S1, Normal S2, No Murmurs Lungs: Decreased air entry on the right anteriorly and laterally when compared to the left Abdomen: Soft, No Tenderness, colostomy bag filled with brown, nonbloody, watery stool Neurological: Normal Speech Extremities: No Clubbing, No Cyanosis, trace LE edema Results Last 24 Hrs of Lab Results: Laboratory Tests 02/07/17 0630: CBC w Diff NO MAN DIFF REQ, RBC 3.30 L, MCV 79.1 L, MCH 25.7 L, RDW 20.5 H, MPV 6.8 L, Gran % 71.1, Lymphocytes % 9.9 L, Monocytes % 16.3 H, Eosinophils % 2.2, Basophils % 0.5, Absolute Granulocytes 8.9 H, Absolute Lymphocytes 1.2, Absolute Monocytes 2.0 H, Absolute Eosinophils 0.3, Absolute Basophils 0.1, PUBS MCHC 32.5 L Diagnostic Data CXR Findings: 1. Progressive consolidation is seen in the left upper lobe compared to 2016, suspicious for a dense pneumonia. 2. Persistent volume loss in the left lung base with subsegmental atelectasis and small effusion seen. 3. Mild subsegmental atelectasis in both lung bases. CT Scan Findings: 1. Dense consolidation is now also seen in the left upper lobe with progressive consolidation in the left lower lobe. Findings are suspicious for multifocal pneumonia. No significant associated parapneumonic effusion is seen. 2. Linear area of chronic atelectasis or scarring in the right lower lobe with associated mild dependent atelectasis and pleural thickening. 3. Borderline enlarged left prevascular lymph node, likely reactive to the pulmonary process. 4. No change in other incidental findings, including cardiomegaly, chronic descending thoracic and upper abdominal aortic dissection, thoracic aortic aneurysm, severe coronary artery calcifications, and bilateral renal cysts with asymmetric atrophy of the left kidney. Impression/Plan Impression/Plan Impression/Plan: 1. Progressive left sided infiltrate, consistent with multilobar pneumonia. I agree, that despite the patient's recent episode of C. Diff, that the patient be treated for pneumonia as recommended by Dr. Farmer. 2. C. Diff colitis. 3. R/O aspiration. 4. Recent septic shock which is now resolved with sacral decubiti. 5. Persistent leakage around this suprapubic catheter, 6. Paraplegia/spinal stroke. 7. Previous bilateral pulmonary embolism. 8. Recent GIB with anemia. 9. Multiple comorbidities including diabetes, hypertension, hyperlipidemia, anxiety and depression. Recommendations: * Continue antibiotics as recommended by ID. * C. Diff treatment as per primary team. * Induce sputum for gram stain and culture. Please request an induced sputum from respiratory. * Aspiration precautions, check swallowing evaluation. * Please request respiratory to do chest PT to left lung and also do incentive spirometry. * Will repeat imaging after 2 days of treatment, to determine if the infiltrate has improved. * Thank you, will follow up.
[2017-02-07 22:32] VITALS: BP 98/56
--- NOTE | 2017-02-08 05:49 | NUR ---
PT O2SAT 89-90% ON RA. ATTEMTPTED TO PLACE PT ON 1LNC AND PT REFUSED STATING "I DON'T WANT THAT". WILL CONTINUE TO MONITOR.
[2017-02-08 06:10] VITALS: BP 100/54
--- NOTE | 2017-02-08 07:46 | PN- Housestaff ---
Subjective Follow-up For: -Altered mental status and lethargic -Watery diarrhea secondary to C. difficile -Hospital-acquired pneumonia Subjective: Afebrile. WBCs improved to 11.2. Patient saturating well on room air. No acute overnight events reported. Patient reported improvement of his symptom. He denies any current active complaints. Review of Systems Constitutional: Reports: no symptoms. Objective Last 24 Hrs of Vital Signs/I&O Vital Signs Date Time Temp Pulse Resp B/P B/P Pulse O2 O2 Flow FiO2 Mean Ox Delivery Rate 02/08 1432 98.4 100 20 102/56 93 02/08 1237 90 Room Air 02/08 0800 92 Room Air 02/08 0610 98.9 100 20 100/54 02/07 2232 98.8 96 20 98/56 96 Room Air 02/07 2009 Nasal 1.0L Cannula Intake & Output 02/08 1600 02/08 0800 02/08 0000 Intake Total 700 280 650 Output Total 200 150 250 Balance 500 130 400 Intake, IV 250 Intake, Oral 700 280 400 Output, Stool 150 50 250 Output, Urine 50 100 Physical Exam General Appearance: Alert, Oriented X3, Cooperative, No Acute Distress HEENT: Atraumatic, PERRLA, EOMI, Mucous Membr. moist/pink Cardiovascular: Regular Rate, Normal S1, Normal S2, No Murmurs Lungs: Crees air entry on the left side more than the right Abdomen: Normal Bowel Sounds, Soft, No Tenderness Neurological: Normal Speech Extremities: No Clubbing, No Cyanosis, No Edema Current Medications: Current Medications Sig/Mey Start time Last Medication Dose Route Stop Time Status Admin Acetaminophen 650 MG Q6P PRN 02/06 0030 AC 02/06 PO 2248 Albuterol Sulfate 3 ML Q4P PRN 02/02 2315 AC 02/03 INH 1109 Aspirin Buffered 81 MG DAILY 02/06 1000 AC 02/08 PO 1114 Atorvastatin Calcium 10 MG DAILY 02/03 1000 AC 02/08 PO 1114 Budesonide/ 2 PUF BID 02/02 220 AC 02/08 Formoterol Fumarate INH 1115 Ceftazidime 1,000 MG IQ8 02/07 1600 AC 02/08 IV 0733 Furosemide 20 MG Q48 02/06 1000 AC 02/08 PO 1114 Insulin Aspart 0 TIDAC 02/03 1200 AC 02/07 SC 1656 Levetiracetam 500 MG QAM 02/03 1000 AC 02/08 PO 1114 Omeprazole 20 MG DAILY 02/06 1000 AC 02/08 PO 1114 Oxybutynin Chloride 10 MG TID 02/05 1600 AC 02/08 PO 1114 Oxycodone HCl 10 MG Q8P PRN 02/05 1900 AC 02/08 PO 0639 Patient Medication 1 ED .K-MED ONE 02/08 1417 MI Teaching ED 02/08 1418 Rivaroxaban 20 MG DAILY 02/05 1000 AC 02/08 PO 1114 Sodium Hypochlorite 1 HILARIA DAILY 02/07 1000 AC 02/08 TOP 1114 Vancomycin HCl 1,000 MG Q12H 02/07 2000 AC 02/08 Sodium Chloride 250 ML IV 0734 Vancomycin HCl 1,000 MG Q12 02/07 1254 DC Sodium Chloride 250 ML IV Vancomycin HCl 125 MG Q6 02/07 0115 AC 02/08 PO 02/10 0000 1300 Last 24 Hrs of Lab/Perfecto Results Last 24 Hrs of Labs/Mics: Laboratory Tests 02/08/17 0624: CBC w Diff NO MAN DIFF REQ, RBC 3.15 L, MCV 79.1 L, MCH 25.5 L, RDW 20.0 H, MPV 7.0 L, Gran % 73.1, Lymphocytes % 9.0 L, Monocytes % 15.4 H, Eosinophils % 1.9, Basophils % 0.6, Absolute Granulocytes 8.2 H, Absolute Lymphocytes 1.0 L, Absolute Monocytes 1.7 H, Absolute Eosinophils 0.2, Absolute Basophils 0.1, PUBS MCHC 32.2 L Microbiology 02/07 1945 LOWER RESP: Respiratory Culture - RES 02/07 1945 LOWER RESP: Gram Stain - RES Assessment/Plan Assessment: Assessment: #Severe sepsis most likely secondary to C. difficile and HAP He presented with hypotension and leukocytosis most likely secondary to dehydration given his watery diarrhea in the presence of positive C. difficile PCR. WBCs Chest x-ray followed by chest CT is suggestive of pneumonia. Patient was in the hospital recently and he grow MRSA on sputum during his last admission. * Continue oral vancomycin for C. difficile until 02/09/17 * Continue IV vancomycin and IV ceftaz * f/u cx * repeat xray on am * We will follow ID recommendation * We will follow pulmonology recommendations * CBC daily to follow WBCs #GI ulcer s/p EGD EGD that was done earlier this month, showed Fundic ulcer and Fundic submucosal lesion. GI recommended starting patient back on Xarelto and aspirin and to watch for GI symptoms. Patient H&H dropped at some point during this admission to 7.2, he received 1 packed RBCs transfusion after which his hemoglobin improved to 8.5. H&H is still stable this morning * CBC daily * We'll transfuse 1 packed RBCs if needed to keep hemoglobin above 7 * Continue Xarelto. * Continue PPI #Hx of PE * Continue Xarelto. * Informed GI if any symptom of bleeding #diabetic * Hold all oral antihyperglycemic medication * Sliding scale insulin * Accu-Cheks * diabetic diet #CAD * continue statin and aspirin #Suprapubic catheter and history of bladder cancer * Continue Oxybutynin 10 mg TID, as per urology Dr. Koch. #back ulcer stage IV * We will consult wound Carbohydrate diet DVT prophylaxis Xarelto Full code Problem List: 1. C. difficile colitis 2. Pulmonary embolism Pain Ratin Pain Location: na Pain Goal: Remain pain free Pain Plan: See A&P Tomorrow's Labs & Rationales: CBC and BEP
[2017-02-08 08:05] LABS: ABSOLUTE BASOPHIL COUNT 0.1 /CUMM (0.0-0.2); ABSOLUTE EOSINOPHIL COUNT 0.2 /CUMM (0.0-0.7); ABSOLUTE GRANULOCYTE CT 8.2 /CUMM (1.4-6.5); ABSOLUTE MONOCYTE COUNT 1.7 /CUMM (0.10-0.60); BASOPHIL % 0.6 % (0.0-2.0); EOSINOPHIL % 1.9 % (0-5); GRANULOCYTE % 73.1 % (42.2-75.2); HEMATOCRIT 24.9 % (42-52); MEAN CORPUSCULAR HGB 25.5 PG (27.0-31.0); MEAN CORPUSCULAR HGB CONC 32.2 G/DL (33.0-37.0); MEAN CORPUSCULAR VOLUME 79.1 FL (80.0-94.0); PLATELET COUNT 686 /CUMM (130-400); RED BLOOD CELL CT 3.15 /CUMM (4.70-6.10); WHITE BLOOD CELL COUNT 11.2 /CUMM (4.8-10.8)
--- NOTE | 2017-02-08 09:13 | PN- Att Addend ---
Attending Addendum Attending Brief Note Patient has minimal complaints and he appears alert and oriented General Appearance: Alert, No Acute Distress Skin: Grossly normal HEENT: PEERLA Neck: Supple, No JVD Cardiovascular: Regular Rate, Normal S1, Normal S2, No Murmurs Lungs: Clear to Auscultation, Normal Air Movement Abdomen: Decubitus sacral ulcer, colostomy bag with no abdominal pain Neurological: Normal Speech, Strength at 5/5 X4 Ext, Cranial Nerves 3-12 NL, Reflexes 2+ Extremities: No Clubbing, No Cyanosis, No Edema Vascular: Normal Pulses Assessment CT chest suggest multifocal pneumonia that is progressing. Currently on broad- spectrum antibiotics. C. difficile symptoms improved. We'll repeat chest x-ray tomorrow and reassess. Plan Repeat chest x-ray in a.m. Continue IV antibiotics Continue po vancomycin Continue all other meds Encourage by mouth fluids Current Medications Sig/Mey Start time Last Medication Dose Route Stop Time Status Admin Acetaminophen 650 MG Q6P PRN 02/06 0030 AC 02/06 PO 2248 Albuterol Sulfate 3 ML Q4P PRN 02/02 2315 AC 02/03 INH 1109 Aspirin Buffered 81 MG DAILY 02/06 1000 AC 02/07 PO 0921 Atorvastatin Calcium 10 MG DAILY 02/03 1000 AC 02/07 PO 0921 Budesonide/ 2 PUF BID 02/02 2200 AC 02/07 Formoterol Fumarate INH 2141 Ceftazidime 1,000 MG IQ8 02/07 1600 AC 02/08 IV 0733 Furosemide 20 MG Q48 02/06 1000 AC 02/06 PO 0911 Insulin Aspart 0 TIDAC 02/03 1200 AC 02/07 SC 1656 Levetiracetam 500 MG QAM 02/03 1000 AC 02/07 PO 0921 Omeprazole 20 MG DAILY 02/06 1000 AC 02/07 PO 0921 Oxybutynin Chloride 10 MG TID 02/05 1600 AC 02/07 PO 2141 Oxycodone HCl 10 MG Q8P PRN 02/05 1900 AC 02/08 PO 0639 Rivaroxaban 20 MG DAILY 02/05 1000 AC 02/07 PO 0920 Sodium Hypochlorite 1 HILARIA DAILY 02/07 1000 AC 02/07 TOP 1335 Vancomycin HCl 1,000 MG Q12H 02/07 2000 AC 02/08 Sodium Chloride 250 ML IV 0734 Vancomycin HCl 1,000 MG Q12 02/07 1254 DC Sodium Chloride 250 ML IV Vancomycin HCl 125 MG Q6 02/07 0115 AC 02/08 PO 02/10 0000 0544 Laboratory Tests 02/08 0624 Hematology CBC w Diff NO MAN DIFF REQ WBC (4.8 - 10.8 /CUMM) 11.2 H RBC (4.70 - 6.10 /CUMM) 3.15 L Hgb (14.0 - 18.0 G/DL) 8.0 L Hct (42 - 52 %) 24.9 L MCV (80.0 - 94.0 FL) 79.1 L MCH (27.0 - 31.0 PG) 25.5 L RDW (11.5 - 14.5 %) 20.0 H Plt Count (130 - 400 /CUMM) 686 H MPV (7.4 - 10.4 FL) 7.0 L Gran % (42.2 - 75.2 %) 73.1 Lymphocytes % (20.5 - 51.1 %) 9.0 L Monocytes % (1.7 - 9.3 %) 15.4 H Eosinophils % (0 - 5 %) 1.9 Basophils % (0.0 - 2.0 %) 0.6 Absolute Granulocytes (1.4 - 6.5 /CUMM) 8.2 H Absolute Lymphocytes (1.2 - 3.4 /CUMM) 1.0 L Absolute Monocytes (0.10 - 0.60 /CUMM) 1.7 H Absolute Eosinophils (0.0 - 0.7 /CUMM) 0.2 Absolute Basophils (0.0 - 0.2 /CUMM) 0.1 PUBS MCHC (33.0 - 37.0 G/DL) 32.2 L Vital Signs Date Time Temp Pulse Resp B/P B/P Pulse O2 O2 Flow FiO2 Mean Ox Delivery Rate 02/08 0610 98.9 100 20 100/54 02/072 98.8 96 20 98/56 96 Room Air 02/07 2009 Nasal 1.0L Cannula 02/07 1440 98.2 108 20 100/60 91 Room Air
--- NOTE | 2017-02-08 09:30 | PN- Pulmonary ---
Objective Current Medications: Current Medications Sig/Mey Start time Last Medication Dose Route Stop Time Status Admin Acetaminophen 650 MG Q6P PRN 02/06 0030 AC 02/06 PO 2248 Albuterol Sulfate 3 ML Q4P PRN 02/02 2315 AC 02/03 INH 1109 Aspirin Buffered 81 MG DAILY 02/06 1000 AC 02/07 PO 0921 Atorvastatin Calcium 10 MG DAILY 02/03 1000 AC 02/07 PO 0921 Budesonide/ 2 PUF BID 02/02 2200 AC 02/07 Formoterol Fumarate INH 2141 Ceftazidime 1,000 MG IQ8 02/07 1600 AC 02/08 IV 0733 Furosemide 20 MG Q48 02/06 1000 AC 02/06 PO 0911 Insulin Aspart 0 TIDAC 02/03 1200 AC 02/07 SC 1656 Levetiracetam 500 MG QAM 02/03 1000 AC 02/07 PO 0921 Omeprazole 20 MG DAILY 02/06 1000 AC 02/07 PO 0921 Oxybutynin Chloride 10 MG TID 02/05 1600 AC 02/07 PO 2141 Oxycodone HCl 10 MG Q8P PRN 02/05 1900 AC 02/08 PO 0639 Rivaroxaban 20 MG DAILY 02/05 1000 AC 02/07 PO 0920 Sodium Hypochlorite 1 HILARIA DAILY 02/07 1000 AC 02/07 TOP 1335 Vancomycin HCl 1,000 MG Q12H 02/07 2000 AC 02/08 Sodium Chloride 250 ML IV 0734 Vancomycin HCl 1,000 MG Q12 02/07 1254 DC Sodium Chloride 250 ML IV Vancomycin HCl 125 MG Q6 02/07 0115 AC 02/08 PO 02/10 0000 0544 Vital Signs & I&O Last 24 Hrs of Vitals and I&O: Vital Signs Date Time Temp Pulse Resp B/P B/P Pulse O2 O2 Flow FiO2 Mean Ox Delivery Rate 02/08 0610 98.9 100 20 100/54 02/07 2232 98.8 96 20 98/56 96 Room Air 02/07 2009 Nasal 1.0L Cannula 02/07 1440 98.2 108 20 100/60 91 Room Air Intake & Output 02/08 1600 02/08 0800 02/08 0000 Intake Total 280 650 Output Total 150 250 Balance 130 400 Intake, IV 250 Intake, Oral 280 400 Output, Stool 50 250 Output, Urine 100 Physical Exam General Appearance: Alert, Oriented X3, Cooperative, No Acute Distress HEENT: Atraumatic, PERRLA, EOMI, Mucous Membr. moist/pink Cardiovascular: Regular Rate, Normal S1, Normal S2, No Murmurs Lungs: Decreased air entry on the right anteriorly and laterally when compared to the left Abdomen: Soft, No Tenderness, colostomy bag filled with brown, nonbloody, watery stool Neurological: Normal Speech Extremities: No Clubbing, No Cyanosis, trace LE edema Results Last 24 Hrs of Lab Results: Laboratory Tests 02/08/1724: CBC w Diff NO MAN DIFF REQ, RBC 3.15 L, MCV 79.1 L, MCH 25.5 L, RDW 20.0 H, MPV 7.0 L, Gran % 73.1, Lymphocytes % 9.0 L, Monocytes % 15.4 H, Eosinophils % 1.9, Basophils % 0.6, Absolute Granulocytes 8.2 H, Absolute Lymphocytes 1.0 L, Absolute Monocytes 1.7 H, Absolute Eosinophils 0.2, Absolute Basophils 0.1, PUBS MCHC 32.2 L Last 24 Hrs of Micro Results: Sputum culture - no growth after 1 day. Impression/Plan Impression/Plan Impression/Plan: 1. Progressive left sided infiltrate, consistent with multilobar pneumonia. I agree, that despite the patient's recent episode of C. Diff, that the patient be treated for pneumonia as recommended by Dr. Farmer. 2. C. Diff colitis. 3. R/O aspiration. 4. Recent septic shock which is now resolved with sacral decubiti. 5. Persistent leakage around this suprapubic catheter, 6. Paraplegia/spinal stroke. 7. Previous bilateral pulmonary embolism. 8. Recent GIB with anemia. 9. Multiple comorbidities including diabetes, hypertension, hyperlipidemia, anxiety and depression. Recommendations: * Continue antibiotics as recommended by ID. * C. Diff treatment as per primary team. * Follow-up sputum culture results. * Aspiration precautions, check swallowing evaluation. * Respiratory for chest PT to left lung and also do incentive spirometry. * Will repeat imaging after 2 days of treatment, to determine if the infiltrate has improved. Please order a PA and lateral CXR for tomorrow. * Continue all supportive care.
--- NOTE | 2017-02-08 10:08 | PN- Pulmonary ---
Subjective HPI/Critical Care Issues: The patient is awake and alert. He reports that his chest congestion has significantly improved. He has no significant cough or sputum production. He denies shortness of breath. He offers no new complaints today. Objective Current Medications: Current Medications Sig/Mey Start time Last Medication Dose Route Stop Time Status Admin Acetaminophen 650 MG Q6P PRN 02/06 0030 AC 02/06 PO 2248 Albuterol Sulfate 3 ML Q4P PRN 02/02 2315 AC 02/03 INH 1109 Aspirin Buffered 81 MG DAILY 02/06 1000 AC 02/07 PO 0921 Atorvastatin Calcium 10 MG DAILY 02/03 1000 AC 02/07 PO 0921 Budesonide/ 2 PUF BID 02/02 2200 AC 02/07 Formoterol Fumarate INH 2141 Ceftazidime 1,000 MG IQ8 02/07 1600 AC 02/08 IV 0733 Furosemide 20 MG Q48 02/06 1000 AC 02/06 PO 0911 Insulin Aspart 0 TIDAC 02/03 1200 AC 02/07 SC 1656 Levetiracetam 500 MG QAM 02/03 1000 AC 02/07 PO 0921 Omeprazole 20 MG DAILY 02/06 1000 AC 02/07 PO 0921 Oxybutynin Chloride 10 MG TID 02/05 1600 AC 02/07 PO 2141 Oxycodone HCl 10 MG Q8P PRN 02/05 1900 AC 02/08 PO 0639 Rivaroxaban 20 MG DAILY 02/05 1000 AC 02/07 PO 0920 Sodium Hypochlorite 1 HILARIA DAILY 02/07 1000 AC 02/07 TOP 1335 Vancomycin HCl 1,000 MG Q12H 02/07 2000 AC 02/08 Sodium Chloride 250 ML IV 0734 Vancomycin HCl 1,000 MG Q12 02/07 1254 DC Sodium Chloride 250 ML IV Vancomycin HCl 125 MG Q6 02/07 0115 AC 02/08 PO 02/10 0000 0544 Vital Signs & I&O Last 24 Hrs of Vitals and I&O: Vital Signs Date Time Temp Pulse Resp B/P B/P Pulse O2 O2 Flow FiO2 Mean Ox Delivery Rate 02/08 0610 98.9 100 20 100/54 02/072 98.8 96 20 98/56 96 Room Air 02/07 2009 Nasal 1.0L Cannula 02/07 1440 98.2 108 20 100/60 91 Room Air Intake & Output 02/08 1600 02/08 0800 02/08 0000 Intake Total 280 650 Output Total 150 250 Balance 130 400 Intake, IV 250 Intake, Oral 280 400 Output, Stool 50 250 Output, Urine 100 Impression/Plan Impression/Plan Impression/Plan: 1. Progressive left sided infiltrate, consistent with multilobar pneumonia. I agree, that despite the patient's recent episode of C. Diff, the patient be treated for pneumonia as recommended by ID. 2. C. Diff colitis. 3. R/O aspiration. 4. Recent septic shock which is now resolved with sacral decubiti. 5. Persistent leakage around this suprapubic catheter, 6. Paraplegia/spinal stroke. 7. Previous bilateral pulmonary embolism. 8. Recent GIB with anemia. 9. Multiple comorbidities including diabetes, hypertension, hyperlipidemia, anxiety and depression. Recommendations: * Continue antibiotics as recommended by ID. * C. Diff treatment as per primary team. * Follow-up sputum culture results. * Aspiration precautions, check swallowing evaluation. * Respiratory for chest PT to left lung and also do incentive spirometry. * Will repeat imaging after 2 days of treatment, to determine if the infiltrate has improved. Please order a PA and lateral CXR for tomorrow. * Continue all supportive care.
--- NOTE | 2017-02-08 11:41 | PN- Infect Dx ---
Subjective Subjective: Afebrile without complaints Objective Last 24 Hrs of Vital Signs/I&O Vital Signs Date Time Temp Pulse Resp B/P B/P Pulse O2 O2 Flow FiO2 Mean Ox Delivery Rate 02/08 0610 98.9 100 20 100/54 02/07 2232 98.8 96 20 98/56 96 Room Air 02/07 2009 Nasal 1.0L Cannula 02/07 1440 98.2 108 20 100/60 91 Room Air Intake & Output 02/08 1600 02/08 0800 02/08 0000 Intake Total 280 650 Output Total 150 250 Balance 130 400 Intake, IV 250 Intake, Oral 280 400 Output, Stool 50 250 Output, Urine 100 Physical Exam Other Physical Findings: He appears comfortable in no acute distress Lungs scattered crackles bilaterally Heart regular rhythm with no murmur Abdomen soft, nontender with positive bowel sounds; colostomy with semi-formed stool Results Last 24 Hours of Lab Results: Laboratory Tests 02/09 624 Hematology CBC w Diff NO MAN DIFF REQ WBC (4.8 - 10.8 /CUMM) 11.2 H RBC (4.70 - 6.10 /CUMM) 3.15 L Hgb (14.0 - 18.0 G/DL) 8.0 L Hct (42 - 52 %) 24.9 L MCV (80.0 - 94.0 FL) 79.1 L MCH (27.0 - 31.0 PG) 25.5 L RDW (11.5 - 14.5 %) 20.0 H Plt Count (130 - 400 /CUMM) 686 H MPV (7.4 - 10.4 FL) 7.0 L Gran % (42.2 - 75.2 %) 73.1 Lymphocytes % (20.5 - 51.1 %) 9.0 L Monocytes % (1.7 - 9.3 %) 15.4 H Eosinophils % (0 - 5 %) 1.9 Basophils % (0.0 - 2.0 %) 0.6 Absolute Granulocytes (1.4 - 6.5 /CUMM) 8.2 H Absolute Lymphocytes (1.2 - 3.4 /CUMM) 1.0 L Absolute Monocytes (0.10 - 0.60 /CUMM) 1.7 H Absolute Eosinophils (0.0 - 0.7 /CUMM) 0.2 Absolute Basophils (0.0 - 0.2 /CUMM) 0.1 PUBS MCHC (33.0 - 37.0 G/DL) 32.2 L Last 24 Hours of Perfecto Results: Sputum February 07 no growth, with gram stain revealing rare white blood cells and no organisms Assessment/Plan Impression: Remains stable with temperatures remaining normal and white blood cell count decreased today on empiric treatment with IV Vancomycin and Ceftazidime, begun yesterday for possible multilobar pneumonia, suggested on the recent CT scan, though his respiratory status has been stable and his sputum culture, so far, is negative. He remains on po Vancomycin now Day 13 of treatment for C. difficile, with stools becoming more formed. Suggestion: 1. Follow-up final sputum culture 2. Repeat chest x-ray in the a.m. per Pulmonary 3. Continue IV Vancomycin and Ceftazidime pending above 4. Continue po Vancomycin until February 09
[2017-02-08 14:32] VITALS: BP 102/56
--- NOTE | 2017-02-08 14:55 | NUR ---
PT ASKED TO HAVE OXYGEN PLACED DUE TO SHORTNESS OF BREATH. O2 SAY ON 2L WAS 94%. WILL CONTINUE TO MONITOR.
[2017-02-08 22:34] VITALS: BP 98/52
[2017-02-09 06:53] VITALS: BP 116/48
[2017-02-09 08:10] LABS: ABSOLUTE BASOPHIL COUNT 0 /CUMM (0.0-0.2); ABSOLUTE EOSINOPHIL COUNT 0.2 /CUMM (0.0-0.7); ABSOLUTE GRANULOCYTE CT 8.3 /CUMM (1.4-6.5); ABSOLUTE LYMPH COUNT 1.2 /CUMM (1.2-3.4); ABSOLUTE MONOCYTE COUNT 1.7 /CUMM (0.10-0.60); BASOPHIL % 0.3 % (0.0-2.0); EOSINOPHIL % 2.1 % (0-5); GRANULOCYTE % 72.7 % (42.2-75.2); HEMATOCRIT 26.5 % (42-52); MEAN CORPUSCULAR HGB 25.4 PG (27.0-31.0); MEAN CORPUSCULAR HGB CONC 31.8 G/DL (33.0-37.0); MEAN CORPUSCULAR VOLUME 79.9 FL (80.0-94.0); MEAN PLATELET VOLUME 6.8 FL (7.4-10.4); PLATELET COUNT 713 /CUMM (130-400); RBC DISTRIBUTION WIDTH 20.5 % (11.5-14.5); RED BLOOD CELL CT 3.32 /CUMM (4.70-6.10); WHITE BLOOD CELL COUNT 11.4 /CUMM (4.8-10.8)
--- NOTE | 2017-02-09 09:13 | PN- Housestaff ---
Subjective Follow-up For: Pneumonia C. difficile Urine culture with Pseudomonas Subjective: Patient at bedside this a.m. He stated that he felt well. No acute overnight events. No complaints. He is scheduled to go down for chest x-ray this AM. Patient remained afebrile with a MAXIMUM TEMPERATURE of 98.4. Note that white count did increase from 11.2-11.4. Review of Systems Constitutional: Reports: no symptoms. EENTM: Reports: no symptoms. Respiratory: Reports: no symptoms. Gastrointestinal: Reports: no symptoms. Genitourinary: Reports: no symptoms. Musculoskeletal: Reports: no symptoms. Objective Last 24 Hrs of Vital Signs/I&O Vital Signs Date Time Temp Pulse Resp B/P B/P Pulse O2 O2 Flow FiO2 Mean Ox Delivery Rate 02/09 0653 98.1 94 20 116/48 92 02/09 0000 93 Nasal 2.0L Cannula 02/08 2234 98.4 101 18 98/52 95 Room Air 02/08 2045 Room Air Room Air 02/08 1600 Nasal 2.0L Cannula 02/08 1432 98.4 100 20 102/56 93 02/08 1237 90 Room Air Intake & Output 02/09 1600 02/09 0800 02/09 0000 Intake Total 250 440 Output Total 350 500 Balance -100 -60 Intake, IV 10 200 Intake, Oral 240 240 Output, Stool 350 Output, Urine 500 Physical Exam General Appearance: Alert, Oriented X3, Cooperative, No Acute Distress HEENT: Atraumatic, PERRLA, EOMI Neck: Supple Cardiovascular: Regular Rate, Normal S1, Normal S2 Lungs: crackles diffusely, no wheezes or rhonchi Abdomen: Soft, No Tenderness Neurological: Normal Speech Last 24 Hrs of Lab/Perfecto Results Last 24 Hrs of Labs/Mics: Laboratory Tests 02/09/17 0655: CBC w Diff NO MAN DIFF REQ, RBC 3.32 L, MCV 79.9 L, MCH 25.4 L, RDW 20.5 H, MPV 6.8 L, Gran % 72.7, Lymphocytes % 10.3 L, Monocytes % 14.6 H, Eosinophils % 2.1, Basophils % 0.3, Absolute Granulocytes 8.3 H, Absolute Lymphocytes 1.2, Absolute Monocytes 1.7 H, Absolute Eosinophils 0.2, Absolute Basophils 0, PUBS MCHC 31.8 L Assessment/Plan Assessment: Assessment: This is a 71-year-old male past medical history significant for paraplegia with chronic stage IV sacral decubitus Alzheimer's, wound VAC, suprapubic catheter, and an ostomy. 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 EF greater than 60. Patient is on Xarelto for hx of PE and he is status post CABG, AAA repair 2, hypertension, hyperlipidemia. In this hospitalization he is managed for pneumonia, C. difficile, and a urine culture positive for Pseudomonas. # UC + pseudomonas: Patient has greater than 100,000 CFU of Pseudomonas aeruginosa that was pansensitive on urine culture. Note that he does hav a chronic catheter in place as he is paraplegic. In this patient likely colonization and regardless, he is currently being treated with ceftaz and vancomycin for pneumonia. Likely this will cover Pseudomonas as well. He did grow ceftaz resistant pseudomonas in past. He is afebrile with MAXIMUM TEMPERATURE 98.4. However white count did go from 11.2-11.4. * Continue ceftaz Vanco * Urine catheter in place * Monitor clinically #Severe sepsis most likely secondary to C. difficile and HAP He presented with hypotension and leukocytosis most likely secondary to dehydration given his watery diarrhea in the presence of positive C. difficile PCR. WBCs Chest x-ray followed by chest CT is suggestive of pneumonia. Patient was in the hospital recently and he grow MRSA on sputum during his last admission. * Continue oral vancomycin for C. difficile until 02/09/17- SCHEDULED TO STOP AFTER LAST DOSE TODAY. * Continue IV vancomycin and IV ceftaz * f/u cx * repeat xray on am-PENDING * We will follow ID recommendation * We will follow pulmonology recommendations * CBC daily to follow WBCs #GI ulcer s/p EGD EGD that was done earlier this month, showed Fundic ulcer and Fundic submucosal lesion. GI recommended starting patient back on Xarelto and aspirin and to watch for GI symptoms. Patient H&H dropped at some point during this admission to 7.2, he received 1 packed RBCs transfusion after which his hemoglobin improved to 8.5. H&H is still stable this morning * CBC daily * We'll transfuse 1 packed RBCs if needed to keep hemoglobin above 7 * Continue Xarelto. * Continue PPI #Hx of PE * Continue Xarelto. * Informed GI if any symptom of bleeding #diabetic * Hold all oral antihyperglycemic medication * Sliding scale insulin * Accu-Cheks * diabetic diet #CAD * continue statin and aspirin #Suprapubic catheter and history of bladder cancer * Continue Oxybutynin 10 mg TID, as per urology Dr. Koch. #back ulcer stage IV * We will consult wound Carbohydrate diet DVT prophylaxis Xarelto Full code Problem List: 1. C. difficile colitis Pain Ratin Pain Location: none Pain Goal: Remain pain free Pain Plan: none Tomorrow's Labs & Rationales: cbc bep
--- NOTE | 2017-02-09 09:19 | PN- Att Addend ---
Attending Addendum Attending Brief Note Covering attending note. Patient awake alert oriented comfortable. Current Medications Sig/Mey Start time Last Medication Dose Route Stop Time Status Admin Acetaminophen 650 MG Q6P PRN 02/06 0030 AC 02/06 PO 2248 Albuterol Sulfate 3 ML Q4P PRN 02/02 2315 AC 02/03 INH 1109 Aspirin Buffered 81 MG DAILY 02/06 1000 AC 02/08 PO 1114 Atorvastatin Calcium 10 MG DAILY 02/03 1000 AC 02/08 PO 1114 Budesonide/ 2 PUF BID 02/02 2200 AC 02/08 Formoterol Fumarate INH 2116 Ceftazidime 1,000 MG IQ8 02/07 1600 AC 02/09 IV 0027 Furosemide 20 MG Q48 02/06 1000 AC 02/08 PO 1114 Insulin Aspart 0 TIDAC 02/03 1200 AC 02/08 SC 1727 Levetiracetam 500 MG QAM 02/03 1000 AC 02/08 PO 1114 Omeprazole 20 MG DAILY 02/06 1000 AC 02/08 PO 1114 Oxybutynin Chloride 10 MG TID 02/05 1600 AC 02/08 PO 2111 Oxycodone HCl 10 MG Q8P PRN 02/05 1900 AC 02/08 PO 1425 Patient Medication 1 ED .STK-MED ONE 02/08 1417 DC Teaching ED 02/08 1418 Rivaroxaban 20 MG DAILY 02/05 1000 AC 02/08 PO 1114 Sodium Hypochlorite 1 HILARIA DAILY 02/07 1000 AC 02/08 TOP 1114 Vancomycin HCl 1,000 MG Q12H 02/07 2000 r 02/08 Sodium Chloride 250 ML IV 02/10 0600 2111 Vancomycin HCl 125 MG Q6 02/07 0115 AC 02/09 PO 02/10 0000 0549 Vital Signs Date Time Temp Pulse Resp B/P B/P Pulse O2 O2 Flow FiO2 Mean Ox Delivery Rate 02/09 0653 98.1 94 20 116/48 92 02/09 0000 93 Nasal 2.0L Cannula 02/08 2234 98.4 101 18 98/52 95 Room Air 02/08 2045 Room Air Room Air 02/08 1600 Nasal 2.0L Cannula 02/08 1432 98.4 100 20 102/56 93 02/08 1237 90 Room Air Intake & Output 02/09 1600 02/09 0800 02/09 0000 Intake Total 250 440 Output Total 350 500 Balance -100 -60 Intake, IV 10 200 Intake, Oral 240 240 Output, Stool 350 Output, Urine 500 And the patient is comfortable awake alert oriented. Neck is supple JVD is not raised. S1-S2 is normal Lungs shows bilateral basal crackles crackles with expiratory wheezing and some scattered rhonchi bilaterally. Abdomen is soft nontender Suprapubic catheter as well as a left-sided colostomy. Large decubitus ulcer stage IV over the sacrum. Patient is paraplegic. Laboratory Tests 02/09 0655 Hematology CBC w Diff NO MAN DIFF REQ WBC (4.8 - 10.8 /CUMM) 11.4 H RBC (4.70 - 6.10 /CUMM) 3.32 L Hgb (14.0 - 18.0 G/DL) 8.4 L Hct (42 - 52 %) 26.5 L MCV (80.0 - 94.0 FL) 79.9 L MCH (27.0 - 31.0 PG) 25.4 L RDW (11.5 - 14.5 %) 20.5 H Plt Count (130 - 400 /CUMM) 713 H MPV (7.4 - 10.4 FL) 6.8 L Gran % (42.2 - 75.2 %) 72.7 Lymphocytes % (20.5 - 51.1 %) 10.3 L Monocytes % (1.7 - 9.3 %) 14.6 H Eosinophils % (0 - 5 %) 2.1 Basophils % (0.0 - 2.0 %) 0.3 Absolute Granulocytes (1.4 - 6.5 /CUMM) 8.3 H Absolute Lymphocytes (1.2 - 3.4 /CUMM) 1.2 Absolute Monocytes (0.10 - 0.60 /CUMM) 1.7 H Absolute Eosinophils (0.0 - 0.7 /CUMM) 0.2 Absolute Basophils (0.0 - 0.2 /CUMM) 0 PUBS MCHC (33.0 - 37.0 G/DL) 31.8 L Impression: Remains stable with temperatures remaining normal and white blood cell count decreased today on empiric treatment with IV Vancomycin and Ceftazidime, begun yesterday for possible multilobar pneumonia, suggested on the recent CT scan, though his respiratory status has been stable and his sputum culture, so far, is negative. He remains on po Vancomycin now Day 14 of treatment for C. difficile, with stools becoming more formed. Suggestion: 1. Follow-up final sputum culture 2. Repeat chest x-ray in the a.m. per Pulmonary 3. Continue IV Vancomycin and Ceftazidime pending above 4. Continue po Vancomycin until February 09
--- NOTE | 2017-02-09 11:10 | PN- Pulmonary ---
Subjective HPI/Critical Care Issues: pt seen and examined s/p cxr will follow afebrile 92% on 2LNC no new events has been on vanco/ceftaz Objective Current Medications: Current Medications Sig/Mey Start time Last Medication Dose Route Stop Time Status Admin Acetaminophen 650 MG Q6P PRN 02/06 0030 AC 02/06 PO 2248 Albuterol Sulfate 3 ML Q4P PRN 02/02 2315 AC 02/03 INH 1109 Aspirin Buffered 81 MG DAILY 02/06 1000 AC 02/09 PO 0916 Atorvastatin Calcium 10 MG DAILY 02/03 1000 AC 02/09 PO 0916 Budesonide/ 2 PUF BID 02/02 2200 AC 02/09 Formoterol Fumarate INH 0922 Ceftazidime 1,000 MG IQ8 02/07 1600 AC 02/09 IV 0915 Furosemide 20 MG Q48 02/06 1000 AC 02/08 PO 1114 Insulin Aspart 0 TIDAC 02/03 1200 AC 02/08 SC 1727 Levetiracetam 500 MG QAM 02/03 1000 AC 02/09 PO 0916 Omeprazole 20 MG DAILY 02/06 1000 AC 02/09 PO 0922 Oxybutynin Chloride 10 MG TID 02/05 1600 AC 02/09 PO 0916 Oxycodone HCl 10 MG Q8P PRN 02/05 1900 AC 02/08 PO 1425 Patient Medication 1 ED .ST-MED ONE 02/08 1417 NH Teaching ED 02/08 1418 Rivaroxaban 20 MG DAILY 02/05 1000 AC 02/09 PO 0916 Sodium Hypochlorite 1 HILARIA DAILY 02/07 1000 AC 02/09 TOP 0922 Vancomycin HCl 1,000 MG Q12H 02/07 2000 AC 02/09 Sodium Chloride 250 ML IV 02/10 0600 0915 Vancomycin HCl 125 MG Q6 02/07 0115 AC 02/09 PO 02/10 0000 0549 Vital Signs & I&O Last 24 Hrs of Vitals and I&O: Vital Signs Date Time Temp Pulse Resp B/P B/P Pulse O2 O2 Flow FiO2 Mean Ox Delivery Rate 02/09 0653 98.1 94 20 116/48 92 02/09 0000 93 Nasal 2.0L Cannula 02/08 2234 98.4 101 18 98/52 95 Room Air 02/08 2045 Room Air Room Air 02/08 1600 Nasal 2.0L Cannula 02/08 1432 98.4 100 20 102/56 93 02/08 1237 90 Room Air Intake & Output 02/09 1600 02/09 0800 02/09 0000 Intake Total 250 440 Output Total 350 500 Balance -100 -60 Intake, IV 10 200 Intake, Oral 240 240 Output, Stool 350 Output, Urine 500 Exam Other Physical Findings: gen awake and alert heent ncat cvs s1, s2 lungs anterior rare rhonchi abd soft bs+, colostomy, suprapubic catheter ext paresis Results Last 24 Hrs of Lab Results: Laboratory Tests 02/09/17 0655: CBC w Diff NO MAN DIFF REQ, RBC 3.32 L, MCV 79.9 L, MCH 25.4 L, RDW 20.5 H, MPV 6.8 L, Gran % 72.7, Lymphocytes % 10.3 L, Monocytes % 14.6 H, Eosinophils % 2.1, Basophils % 0.3, Absolute Granulocytes 8.3 H, Absolute Lymphocytes 1.2, Absolute Monocytes 1.7 H, Absolute Eosinophils 0.2, Absolute Basophils 0, PUBS MCHC 31.8 L Impression/Plan Impression/Plan Impression/Plan: Impression 71 year old man * left sided infiltrate consistent with a multilobar pna * c.diff colitis * 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
--- NOTE | 2017-02-09 14:47 | RADIOLOGY REPORT ---
EXAMINATION: XR CHEST CLINICAL INFORMATION: Upright chest x-ray for atelectasis. Hypoxia COMPARISON: Chest x-ray 02/06/2017. Chest CT 02/06/2017 and earlier TECHNIQUE: 2 views of the chest were obtained. FINDINGS: Again seen is dense left upper and to a lesser degree left lower lobe consolidation consistent with pneumonia, perhaps slightly improved from the prior studies 02/06/2017. Streaky right base atelectasis. Cardiac silhouette is enlarged. The left hemidiaphragm remains elevated. Tortuous aorta. Sternal wires. Degenerative changes of the shoulders. The right shoulder is high riding suggesting advanced rotator cuff pathology. IMPRESSION: Dense left upper and to a lesser degree left lower lobe consolidation again seen, perhaps slightly improved.
[2017-02-09 14:58] VITALS: BP 100/60
--- NOTE | 2017-02-09 15:02 | PN- Infect Dx ---
Subjective Subjective: Afebrile without complaints Objective Last 24 Hrs of Vital Signs/I&O Vital Signs Date Time Temp Pulse Resp B/P B/P Pulse O2 O2 Flow FiO2 Mean Ox Delivery Rate 02/09 08 94 Nasal 2.0L Cannula 02/09 0653 98.1 94 20 116/48 92 02/09 0000 93 Nasal 2.0L Cannula 02/08 2234 98.4 101 18 98/52 95 Room Air 02/08 2045 Room Air Room Air 02/08 1600 Nasal 2.0L Cannula Intake & Output 02/09 1600 02/09 0800 02/09 0000 Intake Total 250 440 Output Total 350 500 Balance -100 -60 Intake, IV 10 200 Intake, Oral 240 240 Output, Stool 350 Output, Urine 500 Physical Exam Other Physical Findings: He appears comfortable in no acute distress Lungs crackles in the left lung and right base Heart regular rhythm with no murmur Abdomen soft, nontender with positive bowel sounds; stools semi-formed Results Last 24 Hours of Lab Results: Laboratory Tests 02/09 06 Hematology CBC w Diff NO MAN DIFF REQ WBC (4.8 - 10.8 /CUMM) 11.4 H RBC (4.70 - 6.10 /CUMM) 3.32 L Hgb (14.0 - 18.0 G/DL) 8.4 L Hct (42 - 52 %) 26.5 L MCV (80.0 - 94.0 FL) 79.9 L MCH (27.0 - 31.0 PG) 25.4 L RDW (11.5 - 14.5 %) 20.5 H Plt Count (130 - 400 /CUMM) 713 H MPV (7.4 - 10.4 FL) 6.8 L Gran % (42.2 - 75.2 %) 72.7 Lymphocytes % (20.5 - 51.1 %) 10.3 L Monocytes % (1.7 - 9.3 %) 14.6 H Eosinophils % (0 - 5 %) 2.1 Basophils % (0.0 - 2.0 %) 0.3 Absolute Granulocytes (1.4 - 6.5 /CUMM) 8.3 H Absolute Lymphocytes (1.2 - 3.4 /CUMM) 1.2 Absolute Monocytes (0.10 - 0.60 /CUMM) 1.7 H Absolute Eosinophils (0.0 - 0.7 /CUMM) 0.2 Absolute Basophils (0.0 - 0.2 /CUMM) 0 PUBS MCHC (33.0 - 37.0 G/DL) 31.8 L Last 24 Hours of Perfecto Results: Sputum culture February 07 mixed sagar Recent Imaging Studies: Chest x-ray February 09, personally reviewed, reveals improvement in the left upper lobe and left lower lobe consolidations Assessment/Plan Impression: Remains stable with temperatures remaining normal and white blood cell count minimally decreased from yesterday on empiric treatment with IV Vancomycin and Ceftazidime, now Day 2 of treatment for presumed multilobar pneumonia, with chest x-ray from today slightly improved, though with sputum culture only growing mixed sagar. He has completed 2 weeks of po Vancomycin for C. difficile , with stools now semi-formed. Suggestion: 1. Discontinue po Vancomycin 2. Continue IV Vancomycin and Ceftazidime, but, if remains stable, would change to Bactrim DS 1 po every 12 hours to complete a 7-10 day course of antibiotics
[2017-02-09] MEDS ORDERED: BACTRIM DS TAB1 EACH PO ×2 (22:44→22:45)
[2017-02-09 23:19] VITALS: BP 100/60
--- NOTE | 2017-02-09 23:20 | NUR ---
ALERT AND ORIENTED X 3. VITAL SIGNS STABLE. DENIES CHEST PAIN. + PULSES DSGS ARE C/D/I. MEDICATION GIVEN FOR DISCOMFORT. PATIENT TURNED AND REPOSITIONED. PATIENT RESTING AT THIS TIME. WILL CONTINUE TO MONITOR
[2017-02-10 07:46] VITALS: BP 118/54
[2017-02-10 09:06] LABS: ABSOLUTE BASOPHIL COUNT 0 /CUMM (0.0-0.2); ABSOLUTE EOSINOPHIL COUNT 0.3 /CUMM (0.0-0.7); ABSOLUTE GRANULOCYTE CT 8.4 /CUMM (1.4-6.5); ABSOLUTE LYMPH COUNT 1.2 /CUMM (1.2-3.4); ABSOLUTE MONOCYTE COUNT 1.5 /CUMM (0.10-0.60); BASOPHIL % 0.3 % (0.0-2.0); EOSINOPHIL % 2.8 % (0-5); GRANULOCYTE % 73.4 % (42.2-75.2); HEMATOCRIT 26.1 % (42-52); MEAN CORPUSCULAR HGB 25.4 PG (27.0-31.0); MEAN CORPUSCULAR HGB CONC 31.9 G/DL (33.0-37.0); MEAN CORPUSCULAR VOLUME 79.4 FL (80.0-94.0); MEAN PLATELET VOLUME 6.8 FL (7.4-10.4); PLATELET COUNT 728 /CUMM (130-400); RBC DISTRIBUTION WIDTH 20.2 % (11.5-14.5); RED BLOOD CELL CT 3.29 /CUMM (4.70-6.10); WHITE BLOOD CELL COUNT 11.4 /CUMM (4.8-10.8)
--- NOTE | 2017-02-10 09:24 | PN- Att Addend ---
Attending Addendum Attending Brief Note Covering attending note. Patient is more awake alert comfortable still feels extremely weak currently on antibiotics. Current Medications Sig/Mey Start time Last Medication Dose Route Stop Time Status Admin Acetaminophen 650 MG Q6P PRN 02/06 0030 AC 02/10 PO 0201 Albuterol Sulfate 3 ML Q4P PRN 02/02 2315 AC 02/03 INH 1109 Aspirin Buffered 81 MG DAILY 02/06 1000 AC 02/09 PO 0916 Atorvastatin Calcium 10 MG DAILY 02/03 1000 AC 02/09 PO 0916 Budesonide/ 2 PUF BID 02/02 2200 AC 02/09 Formoterol Fumarate INH 2129 Ceftazidime 1,000 MG IQ8 02/07 1600 AC 02/10 IV 0744 Furosemide 20 MG Q48 02/06 1000 AC 02/08 PO 1114 Insulin Aspart 0 TIDAC 02/03 1200 AC 02/09 SC 1202 Levetiracetam 500 MG QAM 02/03 1000 AC 02/09 PO 0916 Omeprazole 20 MG DAILY 02/06 1000 AC 02/09 PO 0922 Oxybutynin Chloride 10 MG TID 02/05 1600 AC 02/09 PO 2129 Oxycodone HCl 10 MG Q8P PRN 02/05 1900 AC 02/09 PO 2038 Rivaroxaban 20 MG DAILY 02/05 1000 AC 02/09 PO 0916 Sodium Hypochlorite 1 HILARIA DAILY 02/07 1000 AC 02/10 TOP 0647 Vancomycin HCl 1,000 MG Q12H 02/10 0815 AC Sodium Chloride 250 ML IV Vancomycin HCl 1,000 MG Q12H 02/07 2000 DC 02/09 Sodium Chloride 250 ML IV 02/10 0600 2038 Vancomycin HCl 125 MG Q6 02/07 0115 DC 02/09 PO 02/10 0000 1724 Vital Signs Date Time Temp Pulse Resp B/P B/P Pulse O2 O2 Flow FiO2 Mean Ox Delivery Rate 02/10 0746 98.4 95 20 118/54 98 Nasal 3.0L Cannula 02/10 0000 95 Nasal 3.0L Cannula 02/09 2319 98.4 95 18 100/60 92 Nasal Cannula 02/09 2150 95 Nasal 3.0L Cannula 02/09 1600 Nasal 3.0L Cannula 02/09 1458 98.6 88 22 100/60 95 Intake & Output 02/10 1600 02/10 0800 02/10 0000 Intake Total 370 600 Output Total 150 300 Balance 220 300 Intake, IV 130 Intake, Oral 240 600 Output, Stool 150 Output, Urine 0 300 Examination Is awake alert. S1-S2 is normal Lungs shows bilateral basal crackles with crepitations Abdomen is soft nontender is good ileostomy and a suprapubic catheter. Basilar large sacral decubitus. Laboratory Tests 02/10 0710 Chemistry Sodium (137 - 145 mmol/L) 134 L Potassium (3.5 - 5.1 mmol/L) 5.5 H Chloride (98 - 107 mmol/L) 94 L Carbon Dioxide (22 - 30 mmol/L) 30 Anion Gap (5 - 16) 9 BUN (9 - 20 mg/dL) 16 Creatinine (0.7 - 1.2 mg/dL) 0.8 Estimated GFR (>60 ml/min) > 60 BUN/Creatinine Ratio (7 - 25 %) 20.0 Hematology CBC w Diff Pending WBC Pending RBC Pending Hgb Pending Hct Pending MCV Pending MCH Pending RDW Pending Plt Count Pending MPV Pending PUBS MCHC Pending Assessment C. difficile colitis patient has been discontinued of his by mouth vancomycin per recommendations of infectious disease However continue with IV vancomycin and IV ceftazidime and he was switched to by mouth Septra and a few days.
--- NOTE | 2017-02-10 09:58 | PN- Housestaff ---
Subjective Follow-up For: -Altered mental status and lethargic -Watery diarrhea secondary to C. difficile -Hospital-acquired pneumonia Subjective: Afebrile. WBCs stable around 11.2. Patient saturating well on room air. No acute overnight events reported. Patient reported improvement of his symptom. He denies any current active complaints. His colostomy bag is filled with brown nonbloody well-formed stool. Review of Systems Constitutional: Reports: no symptoms. Objective Last 24 Hrs of Vital Signs/I&O Vital Signs Date Time Temp Pulse Resp B/P B/P Pulse O2 O2 Flow FiO2 Mean Ox Delivery Rate 02/10 1436 98.1 88 20 98/60 93 Nasal 3.0L Cannula 02/10 1020 95 Nasal 3.0L Cannula 02/10 0800 95 Nasal 2.0L Cannula 02/10 0746 98.4 95 20 118/54 98 Nasal 3.0L Cannula 02/10 0000 95 Nasal 3.0L Cannula 02/09 2319 98.4 95 18 100/60 92 Nasal Cannula 02/09 2150 95 Nasal 3.0L Cannula Intake & Output 02/10 1600 02/10 0800 02/10 0000 Intake Total 1050 370 600 Output Total 350 150 300 Balance 700 220 300 Intake, IV 250 130 Intake, Oral 800 240 600 Output, Stool 150 Output, Urine 350 0 300 Physical Exam General Appearance: Alert, Oriented X3, Cooperative, No Acute Distress HEENT: Atraumatic, PERRLA, EOMI, Mucous Membr. moist/pink Cardiovascular: Regular Rate, Normal S1, Normal S2, No Murmurs Lungs: mild wheezing, rhonchi over both flanks with the left being worse than the right Abdomen: Normal Bowel Sounds, Soft, No Tenderness Neurological: Normal Speech Extremities: No Clubbing, No Cyanosis, No Edema Current Medications: Current Medications Sig/Mey Start time Last Medication Dose Route Stop Time Status Admin Acetaminophen 650 MG .STK-MED ONE 02/10 0201 DC PO 02/10 0202 Acetaminophen 650 MG Q6P PRN 02/06 0030 AC 02/10 PO 1537 Albuterol Sulfate 3 ML Q4P PRN 02/02 2315 AC 02/03 INH 1109 Aspirin Buffered 81 MG DAILY 02/06 1000 AC 02/10 PO 0934 Atorvastatin Calcium 10 MG DAILY 02/03 1000 AC 02/10 PO 0934 Budesonide/ 2 PUF BID 02/02 2200 AC 02/10 Formoterol Fumarate INH 0934 Ceftazidime 1,000 MG IQ8 02/07 1600 AC 02/10 IV 1600 Furosemide 20 MG Q48 02/06 1000 AC 02/10 PO 0936 Glycerin 2 SPRAY Q2P PRN 02/10 0930 AC 02/10 PO 1537 Insulin Aspart 0 TIDAC 02/03 1200 AC 02/09 SC 1202 Levetiracetam 500 MG QAM 02/03 1000 AC 02/10 PO 0934 Omeprazole 20 MG DAILY 02/06 1000 AC 02/10 PO 0934 Oxybutynin Chloride 10 MG TID 02/05 1600 AC 02/10 PO 1600 Oxycodone HCl 10 MG Q8P PRN 02/05 1900 AC 02/10 PO 1148 Rivaroxaban 20 MG DAILY 02/05 1000 AC 02/10 PO 0934 Sodium Hypochlorite 1 HILARIA DAILY 02/07 1000 AC 02/10 TOP 0647 Vancomycin HCl 1,000 MG Q12H 02/10 0815 AC 02/10 Sodium Chloride 250 ML IV 0933 Vancomycin HCl 1,000 MG Q12H 02/07 2000 DC 02/09 Sodium Chloride 250 ML IV 02/10 0600 2038 Vancomycin HCl 125 MG Q6 02/07 0115 DC 02/09 PO 02/10 0000 1724 Last 24 Hrs of Lab/Perfecto Results Last 24 Hrs of Labs/Mics: Laboratory Tests 02/10/17 1355: Anion Gap 9, Estimated GFR > 60, BUN/Creatinine Ratio 22.9 02/10/17 0710: Anion Gap 9, Estimated GFR > 60, BUN/Creatinine Ratio 20.0, CBC w Diff NO MAN DIFF REQ, RBC 3.29 L, MCV 79.4 L, MCH 25.4 L, RDW 20.2 H, MPV 6.8 L, Gran % 73.4, Lymphocytes % 10.6 L, Monocytes % 12.9 H, Eosinophils % 2.8, Basophils % 0.3, Absolute Granulocytes 8.4 H, Absolute Lymphocytes 1.2, Absolute Monocytes 1.5 H, Absolute Eosinophils 0.3, Absolute Basophils 0, PUBS MCHC 31.9 L Assessment/Plan Assessment: Assessment: This is a 71-year-old male past medical history significant for paraplegia with chronic stage IV sacral decubitus Alzheimer's, wound VAC, suprapubic catheter, and an ostomy. 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 EF greater than 60. Patient is on Xarelto for hx of PE and he is status post CABG, AAA repair 2, hypertension, hyperlipidemia. In this hospitalization he is managed for pneumonia, C. difficile, and a urine culture positive for Pseudomonas. # UC + pseudomonas: Patient has greater than 100,000 CFU of Pseudomonas aeruginosa that was pansensitive on urine culture. Note that he does hav a chronic catheter in place as he is paraplegic. In this patient likely colonization and regardless, he is currently being treated with ceftaz and vancomycin for pneumonia. Likely this will cover Pseudomonas as well. He did grow ceftaz resistant pseudomonas in past. He is afebrile * Continue ceftaz Vanco * Urine catheter in place * Monitor clinically #Severe sepsis most likely secondary to C. difficile and HAP He presented with hypotension and leukocytosis most likely secondary to dehydration given his watery diarrhea in the presence of positive C. difficile PCR. WBCs Chest x-ray followed by chest CT is suggestive of pneumonia. Patient was in the hospital recently and he grow MRSA on sputum during his last admission. * Oral vancomycin for C. difficile was DCed yesterday * Continue IV vancomycin and IV ceftaz * f/u cx * We will follow ID recommendation * We will follow pulmonology recommendations * CBC daily to follow WBCs #GI ulcer s/p EGD EGD that was done earlier this month, showed Fundic ulcer and Fundic submucosal lesion. GI recommended starting patient back on Xarelto and aspirin and to watch for GI symptoms. Patient H&H dropped at some point during this admission to 7.2, he received 1 packed RBCs transfusion after which his hemoglobin improved to 8.5. H&H is still stable this morning * CBC daily * We'll transfuse 1 packed RBCs if needed to keep hemoglobin above 7 * Continue Xarelto. * Continue PPI #Hx of PE * Continue Xarelto. * Informed GI if any symptom of bleeding #diabetic * Hold all oral antihyperglycemic medication * Sliding scale insulin * Accu-Cheks * diabetic diet #CAD * continue statin and aspirin #Suprapubic catheter and history of bladder cancer * Continue Oxybutynin 10 mg TID, as per urology Dr. Koch. #back ulcer stage IV * We will consult wound Carbohydrate diet DVT prophylaxis Xarelto Full code Problem List: 1. C. difficile colitis 2. Chronic indwelling [place] catheter 3. Pneumonia Pain Ratin Pain Location: Back Pain Goal: Remain pain free Pain Plan: See A&P Tomorrow's Labs & Rationales: CBC and BEP
--- NOTE | 2017-02-10 11:43 | PN- Pulmonary ---
Subjective HPI/Critical Care Issues: Patient seen and examined this morning. Leukocytosis remained stable at 11.4. Potassium slightly elevated at 5.5. Chest x-ray performed February 09 shows a similar presentation perhaps slightly improved. Objective Current Medications: Current Medications Sig/Mey Start time Last Medication Dose Route Stop Time Status Admin Acetaminophen 650 MG .STK-MED ONE 02/10 0201 DC PO 02/10 0202 Acetaminophen 650 MG Q6P PRN 02/06 0030 AC 02/10 PO 0201 Albuterol Sulfate 3 ML Q4P PRN 02/02 2315 AC 02/03 INH 1109 Aspirin Buffered 81 MG DAILY 02/06 1000 AC 02/10 PO 0934 Atorvastatin Calcium 10 MG DAILY 02/03 1000 AC 02/10 PO 0934 Budesonide/ 2 PUF BID 02/02 2200 AC 02/10 Formoterol Fumarate INH 0934 Ceftazidime 1,000 MG IQ8 02/07 1600 AC 02/10 IV 0744 Furosemide 20 MG Q48 02/06 1000 AC 02/10 PO 0936 Glycerin 2 SPRAY Q2P PRN 02/10 0930 AC PO Insulin Aspart 0 TIDAC 02/03 1200 AC 02/09 SC 1202 Levetiracetam 500 MG QAM 02/03 1000 AC 02/10 PO 0934 Omeprazole 20 MG DAILY 02/06 1000 AC 02/10 PO 0934 Oxybutynin Chloride 10 MG TID 02/05 1600 AC 02/10 PO 0934 Oxycodone HCl 10 MG Q8P PRN 02/05 1900 AC 02/09 PO 2038 Rivaroxaban 20 MG DAILY 02/05 1000 AC 02/10 PO 0934 Sodium Hypochlorite 1 HILARIA DAILY 02/07 1000 AC 02/10 TOP 0647 Vancomycin HCl 1,000 MG Q12H 02/10 0815 AC 02/10 Sodium Chloride 250 ML IV 0933 Vancomycin HCl 1,000 MG Q12H 02/07 2000 DC 02/09 Sodium Chloride 250 ML IV 02/10 0600 2038 Vancomycin HCl 125 MG Q6 02/07 0115 DC 02/09 PO 02/10 0000 1724 Vital Signs & I&O Last 24 Hrs of Vitals and I&O: Vital Signs Date Time Temp Pulse Resp B/P B/P Pulse O2 O2 Flow FiO2 Mean Ox Delivery Rate 02/10 1020 95 Nasal 3.0L Cannula 02/10 0746 98.4 95 20 118/54 98 Nasal 3.0L Cannula 02/10 0000 95 Nasal 3.0L Cannula 02/09 2319 98.4 95 18 100/60 92 Nasal Cannula 02/09 2150 95 Nasal 3.0L Cannula 02/09 1600 Nasal 3.0L Cannula 02/09 1458 98.6 88 22 100/60 95 Intake & Output 02/10 1600 02/10 0800 02/10 0000 Intake Total 370 600 Output Total 150 300 Balance 220 300 Intake, IV 130 Intake, Oral 240 600 Output, Stool 150 Output, Urine 0 300 Exam Other Physical Findings: gen awake and alert heent ncat cvs s1, s2 lungs anterior rare rhonchi abd soft bs+, colostomy, suprapubic catheter ext paresis Results Last 24 Hrs of Lab Results: Laboratory Tests 02/10/17 0710: Anion Gap 9, Estimated GFR > 60, BUN/Creatinine Ratio 20.0, CBC w Diff NO MAN DIFF REQ, RBC 3.29 L, MCV 79.4 L, MCH 25.4 L, RDW 20.2 H, MPV 6.8 L, Gran % 73.4, Lymphocytes % 10.6 L, Monocytes % 12.9 H, Eosinophils % 2.8, Basophils % 0.3, Absolute Granulocytes 8.4 H, Absolute Lymphocytes 1.2, Absolute Monocytes 1.5 H, Absolute Eosinophils 0.3, Absolute Basophils 0, PUBS MCHC 31.9 L Impression/Plan Impression/Plan Impression/Plan: Impression 71 year old man * left sided infiltrate consistent with a multilobar pna * c.diff colitis * sacral decubiti and paresis secondary spinal cva * hx PE, hx GIB Plan - Chest x-ray performed February 09 shows a similar presentation perhaps slightly improved. - cont vanco/ceftaz - po vanco is completed - IST, chest PT - aspiration precautions DVT prophylaxis at all times
[2017-02-10 14:36] VITALS: BP 98/60
[2017-02-10 21:55] VITALS: BP 108/40
--- NOTE | 2017-02-11 03:15 | NUR ---
NURSING NOTE: WHEN THIS RN AND MST WENT INTO PTS ROOM TO CHECK INCONTINENCE PT BECAME VERY AGITATED AND REFUSED TO BE CHANGED DESPITE TELLING THE PATIENT THE SHEETS AND BED WERE WET. WILL REASSESS AGAIN LATER.
[2017-02-11 06:30] VITALS: BP 90/40
--- NOTE | 2017-02-11 06:49 | NUR ---
NURSING NOTE: PT O2 ON ROOM AIR 90%. PT REFUSED TO WEAR O2 AT THIS TIME. WILL CONTINUE TO MONITOR.
[2017-02-11] MEDS ORDERED: BACTRIM DS TAB1 EACH PO ×2 (07:48→13:43)
[2017-02-11 08:05] LABS: ABSOLUTE BASOPHIL COUNT 0 /CUMM (0.0-0.2); ABSOLUTE EOSINOPHIL COUNT 0.4 /CUMM (0.0-0.7); ABSOLUTE GRANULOCYTE CT 11.2 /CUMM (1.4-6.5); ABSOLUTE MONOCYTE COUNT 1.4 /CUMM (0.10-0.60); BASOPHIL % 0.3 % (0.0-2.0); EOSINOPHIL % 2.5 % (0-5); GRANULOCYTE % 79.8 % (42.2-75.2); MEAN CORPUSCULAR HGB 25.2 PG (27.0-31.0); MEAN CORPUSCULAR HGB CONC 31.7 G/DL (33.0-37.0); MEAN CORPUSCULAR VOLUME 79.5 FL (80.0-94.0); MEAN PLATELET VOLUME 6.6 FL (7.4-10.4); PLATELET COUNT 816 /CUMM (130-400); RBC DISTRIBUTION WIDTH 20.5 % (11.5-14.5); WHITE BLOOD CELL COUNT 14.1 /CUMM (4.8-10.8)
--- NOTE | 2017-02-11 09:08 | PN- Att Addend ---
Attending Addendum Attending Brief Note Patient has minimal complaints and he appears alert and oriented General Appearance: Alert, No Acute Distress Skin: Grossly normal HEENT: PEERLA Neck: Supple, No JVD Cardiovascular: Regular Rate, Normal S1, Normal S2, No Murmurs Lungs: Clear to Auscultation, Normal Air Movement Abdomen: Decubitus sacral ulcer, colostomy bag with no abdominal pain Neurological: Normal Speech, Strength at 5/5 X4 Ext, Cranial Nerves 3-12 NL, Reflexes 2+ Extremities: No Clubbing, No Cyanosis, No Edema Vascular: Normal Pulses Assessment Multifocal pneumonia with improved chest x-ray findings 2 days back. He is currently on oral Bactrim. Hyperkalemia. Completed 2 weeks of vancomycin for C. difficile. Plan Continue Bactrim for 6 more days Discontinue potassium supplements Repeat labs in 3 days Continue all other meds Current Medications Sig/Mey Start time Last Medication Dose Route Stop Time Status Admin Acetaminophen 650 MG .STK-MED ONE 02/10 1538 DC PO 02/10 1539 Acetaminophen 650 MG Q6P PRN 02/06 0030 AC 02/10 PO 1537 Albuterol Sulfate 3 ML Q4P PRN 02/02 2315 AC 02/03 INH 1109 Aspirin Buffered 81 MG DAILY 02/06 1000 AC 02/10 PO 0934 Atorvastatin Calcium 10 MG DAILY 02/03 1000 AC 02/10 PO 0934 Budesonide/ 2 PUF BID 02/02 2200 AC 02/10 Formoterol Fumarate INH 2135 Ceftazidime 1,000 MG IQ8 02/07 1600 DC 02/10 IV 2337 Furosemide 20 MG Q48 02/06 1000 AC 02/10 PO 0936 Glycerin 2 SPRAY Q2P PRN 02/10 0930 AC 02/10 PO 1537 Insulin Aspart 0 TIDAC 02/03 1200 AC 02/09 SC 1202 Levetiracetam 500 MG QAM 02/03 1000 AC 02/10 PO 0934 Omeprazole 20 MG DAILY 02/06 1000 AC 02/10 PO 0934 Oxybutynin Chloride 10 MG TID 02/05 1600 AC 02/10 PO 2135 Oxycodone HCl 10 MG Q8P PRN 02/05 1900 AC 02/11 PO 0646 Rivaroxaban 20 MG DAILY 02/05 1000 AC 02/10 PO 0934 Sodium Hypochlorite 1 HILARIA DAILY 04/20 1000 AC 02/10 TOP 0647 Trimethoprim/ 1 TAB BID 02/11 1000 AC Sulfamethoxazole PO Vancomycin HCl 1,000 MG Q12H 02/10 0815 DC 02/10 Sodium Chloride 250 ML IV 2024 Laboratory Tests 02/11 02/10 0638 1355 Chemistry Sodium (137 - 145 mmol/L) 133 L 135 L Potassium (3.5 - 5.1 mmol/L) 5.2 H 5.0 Chloride (98 - 107 mmol/L) 94 L 95 L Carbon Dioxide (22 - 30 mmol/L) 30 31 H Anion Gap (5 - 16) 9 9 BUN (9 - 20 mg/dL) 17 16 Creatinine (0.7 - 1.2 mg/dL) 0.8 0.7 Estimated GFR (>60 ml/min) > 60 > 60 BUN/Creatinine Ratio (7 - 25 %) 21.3 22.9 Hematology CBC w Diff NO MAN DIFF REQ WBC (4.8 - 10.8 /CUMM) 14.1 H RBC (4.70 - 6.10 /CUMM) 3.40 L Hgb (14.0 - 18.0 G/DL) 8.6 L Hct (42 - 52 %) 27.0 L MCV (80.0 - 94.0 FL) 79.5 L MCH (27.0 - 31.0 PG) 25.2 L RDW (11.5 - 14.5 %) 20.5 H Plt Count (130 - 400 /CUMM) 816 H MPV (7.4 - 10.4 FL) 6.6 L Gran % (42.2 - 75.2 %) 79.8 H Lymphocytes % (20.5 - 51.1 %) 7.1 L Monocytes % (1.7 - 9.3 %) 10.3 H Eosinophils % (0 - 5 %) 2.5 Basophils % (0.0 - 2.0 %) 0.3 Absolute Granulocytes (1.4 - 6.5 /CUMM) 11.2 H Absolute Lymphocytes (1.2 - 3.4 /CUMM) 1.0 L Absolute Monocytes (0.10 - 0.60 /CUMM) 1.4 H Absolute Eosinophils (0.0 - 0.7 /CUMM) 0.4 Absolute Basophils (0.0 - 0.2 /CUMM) 0 PUBS MCHC (33.0 - 37.0 G/DL) 31.7 L Vital Signs Date Time Temp Pulse Resp B/P B/P Pulse O2 O2 Flow FiO2 Mean Ox Delivery Rate 02/11 0630 97.5 96 20 90/40 90 02/11 0000 97 Nasal 1.0L Cannula 02/10 2155 98.3 85 20 108/40 97 Nasal 1.0L Cannula 02/10 1900 96 Nasal 3.0L Cannula 02/10 1600 94 Nasal 2.0L Cannula 02/10 1436 98.1 88 20 98/60 93 Nasal 3.0L Cannula 02/10 1020 95 Nasal 3.0L Cannula
--- NOTE | 2017-02-11 10:22 | PN- Pulmonary ---
Subjective HPI/Critical Care Issues: The patient is awake and alert. She reports feeling back to baseline. He offers no new complaints. Specifically, he has noticed chest pain, shortness of breath, fever or chills. He is eating and drinking well. Objective Current Medications: Current Medications Sig/Mey Start time Last Medication Dose Route Stop Time Status Admin Acetaminophen 650 MG .STK-MED ONE 02/10 1538 DC PO 02/10 1539 Acetaminophen 650 MG Q6P PRN 02/06 0030 AC 02/10 PO 1537 Albuterol Sulfate 3 ML Q4P PRN 02/02 2315 AC 02/03 INH 1109 Aspirin Buffered 81 MG DAILY 02/06 1000 AC 02/11 PO 0929 Atorvastatin Calcium 10 MG DAILY 02/03 1000 AC 02/11 PO 0929 Budesonide/ 2 PUF BID 02/02 2200 AC 02/11 Formoterol Fumarate INH 0930 Ceftazidime 1,000 MG IQ8 02/07 1600 DC 02/10 IV 2337 Furosemide 20 MG Q48 02/06 1000 AC 02/10 PO 0936 Glycerin 2 SPRAY Q2P PRN 02/10 0930 AC 02/10 PO 1537 Insulin Aspart 0 TIDAC 02/03 1200 AC 02/09 SC 1202 Levetiracetam 500 MG QAM 02/03 1000 AC 02/11 PO 0929 Omeprazole 20 MG DAILY 02/06 1000 AC 02/11 PO 0929 Oxybutynin Chloride 10 MG TID 02/05 1600 AC 02/11 PO 0929 Oxycodone HCl 10 MG Q8P PRN 02/05 1900 AC 02/11 PO 0646 Rivaroxaban 20 MG DAILY 02/05 1000 AC 02/11 PO 0929 Sodium Hypochlorite 1 HILARIA DAILY 02/07 1000 AC 02/11 TOP 0930 Trimethoprim/ 1 TAB BID 02/11 1000 AC 02/11 Sulfamethoxazole PO 0929 Vancomycin HCl 1,000 MG Q12H 02/10 0815 DC 02/10 Sodium Chloride 250 ML IV 2024 Vital Signs & I&O Last 24 Hrs of Vitals and I&O: Vital Signs Date Time Temp Pulse Resp B/P B/P Pulse O2 O2 Flow FiO2 Mean Ox Delivery Rate 02/11 0630 97.5 96 20 90/40 90 02/11 0000 97 Nasal 1.0L Cannula 02/10 2155 98.3 85 20 108/40 97 Nasal 1.0L Cannula 02/10 1900 96 Nasal 3.0L Cannula 02/10 1600 94 Nasal 2.0L Cannula 02/10 1436 98.1 88 20 98/60 93 Nasal 3.0L Cannula 02/10 1020 95 Nasal 3.0L Cannula Intake & Output 02/11 1600 02/11 0800 02/11 0000 Intake Total 120 990 Output Total 150 250 Balance -30 740 Intake, IV 150 Intake, Oral 120 840 Output, Stool 150 250 Physical Exam General Appearance: Alert, Oriented X3, Cooperative, No Acute Distress HEENT: Atraumatic, PERRLA, EOMI, Mucous Membr. moist/pink Cardiovascular: Regular Rate, Normal S1, Normal S2, No Murmurs Lungs: Decreased air entry on the right anteriorly and laterally when compared to the left Abdomen: Soft, No Tenderness, colostomy bag filled with brown, nonbloody, watery stool Neurological: Normal Speech Extremities: No Clubbing, No Cyanosis, trace LE edema Impression/Plan Impression/Plan Impression/Plan: 1. Progressive left sided infiltrate, consistent with multilobar pneumonia. I agree, that despite the patient's recent episode of C. Diff, the patient be treated for pneumonia as recommended by ID. 2. C. Diff colitis. 3. R/O aspiration. 4. Recent septic shock which is now resolved with sacral decubiti. 5. Persistent leakage around this suprapubic catheter, 6. Paraplegia/spinal stroke. 7. Previous bilateral pulmonary embolism. 8. Recent GIB with anemia. 9. Multiple comorbidities including diabetes, hypertension, hyperlipidemia, anxiety and depression. Recommendations: * Monitor on Bactrim as recommended by ID. * Aspiration precautions. * IST/Chest PT. * Increase activity. * Continue all supportive care. * Discharge planning.
--- NOTE | 2017-02-11 11:40 | PN- Housestaff ---
Subjective Follow-up For: 1.Altered mental status and lethargic 2.Watery diarrhea secondary to C. difficile 3.Hospital-acquired pneumonia Subjective: Afebrile. WBCs increased to 14.1. Patient saturating well on room air. No acute overnight events reported. Patient reported improvement of his symptom. He denies any current active complaints. His colostomy bag is filled with brown nonbloody well-formed stool. Review of Systems Constitutional: Reports: no symptoms. Objective Last 24 Hrs of Vital Signs/I&O Vital Signs Date Time Temp Pulse Resp B/P B/P Pulse O2 O2 Flow FiO2 Mean Ox Delivery Rate 02/11 1138 92 Room Air Room Air 02/11 0800 Nasal 1.0L Cannula 02/11 0630 97.5 96 20 90/40 90 02/11 0000 97 Nasal 1.0L Cannula 02/10 2155 98.3 85 20 108/40 97 Nasal 1.0L Cannula 02/10 1900 96 Nasal 3.0L Cannula 02/10 1600 94 Nasal 2.0L Cannula 02/10 1436 98.1 88 20 98/60 93 Nasal 3.0L Cannula Intake & Output 02/11 1600 02/11 0800 02/11 0000 Intake Total 120 990 Output Total 150 250 Balance -30 740 Intake, IV 150 Intake, Oral 120 840 Output, Stool 150 250 Physical Exam General Appearance: Alert, Oriented X3, Cooperative, No Acute Distress HEENT: Atraumatic, PERRLA, EOMI, Mucous Membr. moist/pink Cardiovascular: Regular Rate, Normal S1, Normal S2, No Murmurs Lungs: Decrease air entry over both lungs Abdomen: Soft, No Tenderness Neurological: Normal Speech Extremities: No Clubbing, No Cyanosis, No Edema Current Medications: Current Medications Sig/Mey Start time Last Medication Dose Route Stop Time Status Admin Acetaminophen 650 MG .STK-MED ONE 02/10 1538 DC PO 02/10 1539 Acetaminophen 650 MG Q6P PRN 02/06 0030 AC 02/10 PO 1537 Albuterol Sulfate 3 ML Q4P PRN 02/02 2315 AC 02/03 INH 1109 Aspirin Buffered 81 MG DAILY 02/06 1000 AC 02/11 PO 0929 Atorvastatin Calcium 10 MG DAILY 02/03 1000 AC 02/11 PO 0929 Budesonide/ 2 PUF BID 02/02 220 AC 02/11 Formoterol Fumarate INH 0930 Ceftazidime 1,000 MG IQ8 02/07 1600 DC 02/10 IV 2337 Furosemide 20 MG Q48 02/06 1000 AC 02/10 PO 0936 Glycerin 2 SPRAY Q2P PRN 02/10 0930 AC 02/10 PO 1537 Insulin Aspart 0 TIDAC 02/03 1200 AC 02/11 SC 1245 Levetiracetam 500 MG QAM 02/03 1000 AC 02/11 PO 0929 Omeprazole 20 MG DAILY 02/06 1000 AC 02/11 PO 0929 Oxybutynin Chloride 10 MG TID 02/05 1600 AC 02/11 PO 0929 Oxycodone HCl 10 MG Q8P PRN 02/05 1900 AC 02/11 PO 0646 Rivaroxaban 20 MG DAILY 02/05 1000 AC 02/11 PO 0929 Sodium Hypochlorite 1 HILARIA DAILY 02/07 1000 AC 02/11 TOP 0930 Trimethoprim/ 1 TAB BID 02/11 1000 AC 02/11 Sulfamethoxazole PO 09 Vancomycin HCl 1,000 MG Q12H 02/10 0815 DC 02/10 Sodium Chloride 250 ML IV 2024 Last 24 Hrs of Lab/Perfecto Results Last 24 Hrs of Labs/Mics: Laboratory Tests 02/11/17 0638: Anion Gap 9, Estimated GFR > 60, BUN/Creatinine Ratio 21.3, CBC w Diff NO MAN DIFF REQ, RBC 3.40 L, MCV 79.5 L, MCH 25.2 L, RDW 20.5 H, MPV 6.6 L, Gran % 79.8 H, Lymphocytes % 7.1 L, Monocytes % 10.3 H, Eosinophils % 2.5, Basophils % 0.3, Absolute Granulocytes 11.2 H, Absolute Lymphocytes 1.0 L, Absolute Monocytes 1.4 H, Absolute Eosinophils 0.4, Absolute Basophils 0, PUBS MCHC 31.7 L 02/10/17 1355: Anion Gap 9, Estimated GFR > 60, BUN/Creatinine Ratio 22.9 Assessment/Plan Assessment: #Severe sepsis most likely secondary to C. difficile and HAP He presented with hypotension and leukocytosis most likely secondary to dehydration given his watery diarrhea in the presence of positive C. difficile PCR. WBCs Chest x-ray followed by chest CT is suggestive of pneumonia. Patient was in the hospital recently and he grow MRSA on sputum during his last admission. * Oral vancomycin for C. difficile was DCed yesterday * Switch IV vancomycin and IV ceftaz to Bactrim for 6 more days * f/u final cx * We will follow ID recommendation * We will follow pulmonology recommendations * CBC daily to follow WBCs #GI ulcer s/p EGD EGD that was done earlier this month, showed Fundic ulcer and Fundic submucosal lesion. GI recommended starting patient back on Xarelto and aspirin and to watch for GI symptoms. Patient H&H dropped at some point during this admission to 7.2, he received 1 packed RBCs transfusion after which his hemoglobin improved to 8.5. H&H is still stable this morning * CBC daily * We'll transfuse packed RBCs if needed to keep hemoglobin above 7 * Continue Xarelto. * Continue PPI #Hx of PE * Continue Xarelto. * Informed GI if any symptom of bleeding #Diabetic * Hold all oral antihyperglycemic medication * Sliding scale insulin * Accu-Cheks * diabetic diet #CAD * continue statin and aspirin #Suprapubic catheter and history of bladder cancer * Continue Oxybutynin 10 mg TID, as per urology Dr. Koch. #Back ulcer stage IV * We will consult wound #Mild hyperkalemia * We'll DC potassium supplement * We'll instruct patient to repeat potassium level after 3 days Carbohydrate diet DVT prophylaxis Xarelto Full code Problem List: 1. C. difficile colitis 2. Pneumonia Pain Ratin Pain Location: Back Pain Goal: Remain pain free Pain Plan: See A&P Tomorrow's Labs & Rationales: None as pt mostly will be discharge later today
--- NOTE | 2017-02-11 13:28 | PN- Infect Dx ---
Subjective Subjective: Afebrile. He offers no complaints. He noted hypoxia yesterday, requiring oxygen, but has not required it today. He denies any chest or abdominal discomfort. Objective Last 24 Hrs of Vital Signs/I&O Vital Signs Date Time Temp Pulse Resp B/P B/P Pulse O2 O2 Flow FiO2 Mean Ox Delivery Rate 02/11 1138 92 Room Air Room Air 02/11 0800 Nasal 1.0L Cannula 02/11 0630 97.5 96 20 90/40 90 02/11 0000 97 Nasal 1.0L Cannula 02/10 2155 98.3 85 20 108/40 97 Nasal 1.0L Cannula 02/10 1900 96 Nasal 3.0L Cannula 02/10 1600 94 Nasal 2.0L Cannula 02/10 1436 98.1 88 20 98/60 93 Nasal 3.0L Cannula Intake & Output 02/11 1600 02/11 0800 02/11 0000 Intake Total 120 990 Output Total 150 250 Balance -30 740 Intake, IV 150 Intake, Oral 120 840 Output, Stool 150 250 Physical Exam Other Physical Findings: He appears comfortable in no acute distress Lungs crackles at left base Heart regular rhythm with no murmur Abdomen colostomy recently emptied Results Last 24 Hours of Lab Results: Laboratory Tests 02/11 02/10 0638 1355 Chemistry Sodium (137 - 145 mmol/L) 133 L 135 L Potassium (3.5 - 5.1 mmol/L) 5.2 H 5.0 Chloride (98 - 107 mmol/L) 94 L 95 L Carbon Dioxide (22 - 30 mmol/L) 30 31 H Anion Gap (5 - 16) 9 9 BUN (9 - 20 mg/dL) 17 16 Creatinine (0.7 - 1.2 mg/dL) 0.8 0.7 Estimated GFR (>60 ml/min) > 60 > 60 BUN/Creatinine Ratio (7 - 25 %) 21.3 22.9 Hematology CBC w Diff NO MAN DIFF REQ WBC (4.8 - 10.8 /CUMM) 14.1 H RBC (4.70 - 6.10 /CUMM) 3.40 L Hgb (14.0 - 18.0 G/DL) 8.6 L Hct (42 - 52 %) 27.0 L MCV (80.0 - 94.0 FL) 79.5 L MCH (27.0 - 31.0 PG) 25.2 L RDW (11.5 - 14.5 %) 20.5 H Plt Count (130 - 400 /CUMM) 816 H MPV (7.4 - 10.4 FL) 6.6 L Gran % (42.2 - 75.2 %) 79.8 H Lymphocytes % (20.5 - 51.1 %) 7.1 L Monocytes % (1.7 - 9.3 %) 10.3 H Eosinophils % (0 - 5 %) 2.5 Basophils % (0.0 - 2.0 %) 0.3 Absolute Granulocytes (1.4 - 6.5 /CUMM) 11.2 H Absolute Lymphocytes (1.2 - 3.4 /CUMM) 1.0 L Absolute Monocytes (0.10 - 0.60 /CUMM) 1.4 H Absolute Eosinophils (0.0 - 0.7 /CUMM) 0.4 Absolute Basophils (0.0 - 0.2 /CUMM) 0 PUBS MCHC (33.0 - 37.0 G/DL) 31.7 L Last 24 Hours of Perfecto Results: No recent cultures Assessment/Plan Impression: Clinically stable with temperatures remaining normal on Vancomycin and Ceftazidime Day 4 of treatment for presumed multilobar pneumonia, with repeat chest x-ray yesterday showing slight improvement, but with sputum culture only growing mixed sagar and with white blood cell count increased today. He has been changed to po Bactrim as previously suggested, but the role of continuing antibiotics at this time is unclear given the increased white blood cell count and his recent C. difficile, for which he has completed 2 weeks of po Vancomycin. Suggestion: 1. Can continue Bactrim for 3 more days 2. Repeat CBC in several days to follow-up white blood cell count 3. Will need a follow-up chest x-ray at some point as well
[2017-02-11 14:59] VITALS: BP 100/54
--- NOTE | 2017-02-11 17:07 | NUR ---
NURSING NOTE: PATIENT DISCHARGED TO SNF, LEFT FLOOR VIA STRETCHER WITH [facility]. PATIENT A/OX3, ON ROOM AIR, IV DISCONTINUED. SUPRAPUBIC TUBE IN PLACE AND PATENT, COLOSTOMY BAG IN PLACE AND PATENT. PATIENT'S PAIN TOLERABLE AT THIS TIME. REPORT CALLED AND GIVEN TO RN AT [facility].
== END 2017-02-11 17:02 | DRG 871 ==
LOC: ENRESERVTM → ENRESERVDT → ERH 11:11 → ERHI 14:01 → 2NB 14:01 → ENPENDDIS 02-11 14:05 → 2NB 02-11 17:02
PROVIDERS: Internal Medicine; Student in an Organized Health Care Education/Training Program; ADMIT Internal Medicine
PROC: 30233N1 Transfusion of Nonautologous Red Blood Cells into Peripheral Vein, Percutaneous Approach (ICD-10-PCS; principal; 2017-02-04)
DX: A41.9 Sepsis, unspecified organism (principal); J96.91 Respiratory failure, unspecified with hypoxia; L89.154 Pressure ulcer of sacral region, stage 4; L89.220 Pressure ulcer of left hip, unstageable; A04.7 Enterocolitis due to Clostridium difficile; J18.9 Pneumonia, unspecified organism; G82.20 Paraplegia, unspecified; E87.5 Hyperkalemia; L89.611 Pressure ulcer of right heel, stage 1; N31.9 Neuromuscular dysfunction of bladder, unspecified; D50.0 Iron deficiency anemia secondary to blood loss (chronic); E86.0 Dehydration; E11.9 Type 2 diabetes mellitus without complications; I25.10 Atherosclerotic heart disease of native coronary artery without angina pectoris; Z95.1 Presence of aortocoronary bypass graft; I10 Essential (primary) hypertension; K25.9 Gastric ulcer, unspecified as acute or chronic, without hemorrhage or perforation; R65.20 Severe sepsis without septic shock; Z85.46 Personal history of malignant neoplasm of prostate; Z86.711 Personal history of pulmonary embolism; Z79.01 Long term (current) use of anticoagulants; E78.5 Hyperlipidemia, unspecified; Z85.51 Personal history of malignant neoplasm of bladder; Z79.84 Long term (current) use of oral hypoglycemic drugs; K21.9 Gastro-esophageal reflux disease without esophagitis; R32 Unspecified urinary incontinence; Z93.3 Colostomy status
CPT/HCPCS: 2NBP; 36415; 81001; 82436; 86920; 87040; 87070; 87086; 93005; 93010; 96361; 96374; 96375; 99291; J0713; J3370; J3490; J7040; P9016

== ENCOUNTER 2017-03-05 23:38 | Inpatient (IN) | payer OTHER, MEDICARE ==
[~2017-03-05] VITALS: Ht 175.3 cm; Wt 73.5 kg
[~2017-03-05 23:38] MED LIST changes: +BACTRIM DS TAB1 EACH PO; +VANCOCIN HCL125 MG PO
--- NOTE | 2017-03-05 23:53 | NUR ---
PT BIBA FROM [facility] IN [place] FOR PRESSURE SORES TO HIS COCCYX AND LOW GRADE FEVER (100.6). UPON ARRIVAL TO ED, PT HAD TEMP OF 100.3 TYMPANIC. PT HAD TWO PRESSURE SORES TO LEFT AND RIGHT COCCYX AREA. PT HAD WOUND VAC TO LEFT WOUND. PT BP 78/40 MANUALLY. DENIED CHILLS, PAIN, AND HAVING ANY OTHER COMPLAINT
--- NOTE | 2017-03-06 00:31 | NUR ---
ATTEMPTED TO ESTABLISH IV ACCESS WITH NEGATIVE RESULTS
--- NOTE | 2017-03-06 00:33 | ED GENERAL ADULT ---
History of Present Illness General Chief Complaint: General Adult Stated Complaint: FEVER, BED SORES Source: patient Exam Limitations: no limitations Vital Signs & Intake/Output Vital Signs & Intake/Output Vital Signs Date Time Temp Pulse Resp B/P B/P Pulse O2 O2 Flow FiO2 Mean Ox Delivery Rate 03/08 0605 98.0 89 20 102/52 92 Room Air 03/07 2317 98.5 103 20 100/50 91 Room Air 03/07 1857 Room Air 03/07 1529 98.7 89 20 100/50 92 Room Air 03/07 1127 95 Nasal 3.0L Cannula ED Intake and Output 03/08 0000 03/07 1200 Intake Total 1400 100 Output Total 350 250 Balance 1050 -150 Intake, IV 250 Intake, Oral 1150 100 Output, Stool 50 Output, Urine 350 200 Allergies Coded Allergies: ibuprofen (UNKNOWN 01/18/17) Triage Note: PT BIBA FROM [facility] IN [place] FOR PRESSURE SORES TO HIS COCCYX AND LOW GRADE FEVER (100.6). UPON ARRIVAL TO ED, PT HAD TEMP OF 100.3 TYMPANIC. PT HAD TWO PRESSURE SORES TO LEFT AND RIGHT COCCYX AREA. PT HAD WOUND VAC TO LEFT WOUND. PT BP 78/40 MANUALLY. DENIED CHILLS, PAIN, AND HAVING ANY OTHER COMPLAINT Triage Nurses Notes Reviewed? yes Onset: Abrupt Timing: recent history Injury Environment: home Severity: moderate, severe No Modifying Factors: none HPI: 71-year-old male comes into emergency room by ambulance from alf for fever and low blood pressure. 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 Patient has chronic bedsores and ulcers and has a wound VAC in place. Facility reports that his blood pressure was low. He denies any pain or complaints. He reports that he feels perfectly fine. He is alert and oriented. Denies any chest pain shortness of breath cough. Denies any other associated symptoms. (JACQUELYN CHRISTIANSON) Reconcile Medications Acetaminophen (Q-Pap) 325 MG TABLET 2 TAB PO Q4H PRN PAIN/TEMP>/100 (Reported ) Acetaminophen (Acephen) 650 MG SUPP.RECT 1 SUPP VA Q4H PRN PAIN/TEMP>100 ( Reported) Aspirin (Ecotrin*) 81 MG TABLET.DR 1 TAB PO DAILY HEART/BLOOD (Reported) Atorvastatin Calcium (Lipitor) 10 MG TABLET 1 TAB PO DAILY CHOLESTEROL ( Reported) Baclofen 10 MG TABLET 1 TAB PO DAILY spams (Reported) Bisacodyl 10 MG SUPP.RECT 1 SUP RC PRN CONSTIPATION (Reported) Cyanocobalamin (Vitamin B-12) (Vitamin B-12) 100 MCG TABLET 1 TAB PO DAILY SUPPLEMENT (Reported) Ergocalciferol (Vitamin D2) (Vitamin D2) 50,000 UNIT CAPSULE 1 CAP PO Q30D SUPPLEMENT (Reported) Furosemide (Lasix) 20 MG TABLET 1 TAB PO Q48 DIURETIC (Reported) Ipratropium/Albuterol Sulfate (Iprat-Albut 0.5-3(2.5) MG/3 Ml) 0.5 MG-3 MG (2.5 MG BASE)/3 ML AMPUL.NEB 1 VIAL INH TID RESPIRATORY (Reported) Levetiracetam (Keppra) 500 MG TABLET 1 TAB PO QAM seizures (Reported) Lisinopril (Zestril) 10 MG TABLET 1 TAB PO DAILY BP (Reported) Magnesium Hydroxide (Milk Of Magnesia) 400 MG/5 ML ORAL.SUSP 30 ML PO DAILY PRN CONSTIPATION (Reported) Melatonin 5 MG TABLET 1 TAB PO QHS SLEEP (Reported) Metformin HCl 500 MG TABLET 1 TAB PO BID DM (Reported) Mirtazapine 15 MG TABLET 0.5 TAB PO QHS UNKNOWN (Reported) Mometasone/Formoterol (Dulera 100 Mcg/5 Mcg Inhaler) 100 MCG-5 MCG/ACTUATION HFA.AER.AD 2 PUF INH BID RESPIRATORY (Reported) Multivitamin (Multi-Day Vitamins) 1 EACH TABLET 1 TAB PO DAILY SUPPLEMENT ( Reported) Na Phos,M-B/Na Phos,Di-Ba (Fleet Enema) 19 GRAM-7 GRAM/118 ML ENEMA 1 E RC DAILY PRN CONSTIPATION (Reported) [place]-3/Dha/Epa/Fish Oil (Fish Oil 1,000 MG Softgel) 1,000 MG (120 MG-180 MG) CAPSULE 1 CAP PO DAILY SUPPLEMENT (Reported) Omeprazole 20 MG CAPSULE.DR 1 CAP PO DAILY GI (Reported) Oxycodone HCl 10 MG TABLET 1 TAB PO Q8H PAIN (Reported) Protein Supplement (Promod) 946 ML LIQUID 30 ML PO TID SUPPLEMENT (Reported) Psyllium Husk (Metamucil) (Unknown Strength) CAPSULE 1 CAP PO DAILY SUPPLEMENT (Reported) Rivaroxaban (Xarelto) 20 MG TABLET 1 TAB PO DAILY Pumonary Embolism Saccharomyces Boulardii (Florastor) 250 MG CAPSULE 1 TAB PO QHS PROBIOTIC ( Reported) Tolterodine Tartrate (Detrol LA) 4 MG CAP.ER.24H 1 CAP PO DAILY BLADDER ( Reported) Trazodone HCl 50 MG TABLET 0.5 TAB PO Q12H PRN UNKNOWN (Reported) (IESHA MULLIGAN,BARB Trevino) Past History Travel History Traveled to [place] past 21 day No Medical History Any Pertinent Medical History? see below for history Neurological: PARAPLEGIA STATUS POST SPINAL SHOCK POSTOP EENT: NONE Cardiovascular: CAD, hypertension, hyperlipidemia, ABDOMINAL ANEURYSM Respiratory: asthma, pulmonary embolism Gastrointestinal: GERD Hepatic: NONE Renal: neurogenic bladder, UTI Musculoskeletal: decubitis ulcer (OSTEOMYELITIS) Psychiatric: anxiety, depression Endocrine: DIABETES TYPE 2 Blood Disorders: NONE Cancer(s): prostate cancer INSEMINATOR/Reproductive: NONE History of MRSA: Yes History of VRE: Yes History of CDIFF: Yes Influenza Vaccine: 09/04/16 Surgical History Surgical History: CABG, AAA repair x2 once 2002, and 2013 status post diverting colostomy status post suprapubic cystostomy Psychosocial History Who do you live with Other (see notes) Services at Home Home Health Aide, Nursing What is your primary language Divehi Tobacco Use: Quit >30 days ago Family History Family History, If Any: MOTHER FH: coronary artery disease FH: diabetes mellitus BROTHER FH: diabetes mellitus SISTER Hx Contributory? No (JACQUELYN CHRISTIANSON) Review of Systems Review of Systems Constitutional: Reports: see HPI. EENTM: Reports: no symptoms. Respiratory: Reports: no symptoms. Cardiovascular: Reports: no symptoms. GI: Reports: no symptoms. Genitourinary: Reports: no symptoms. Musculoskeletal: Reports: no symptoms. Skin: Reports: see HPI. Neurological/Psychological: Reports: no symptoms. Hematologic/Endocrine: Reports: no symptoms. Immunologic/Allergic: Reports: no symptoms. All Other Systems: Reviewed and Negative (JACQUELYN CHRISTIANSON) Physical Exam Physical Exam General Appearance: alert, awake, comfortable Head: atraumatic, normal appearance Eyes: Bilateral: normal appearance. Ears, Nose, Throat: normal pharynx Neck: normal inspection, full range of motion Respiratory: no respiratory distress Cardiovascular: regular rate/rhythm, tachycardia Gastrointestinal: soft, non-tender Back: wound VAC in place, some erythema, patient unable to turn all the way over , Extremities: normal inspection Neurologic/Psych: awake, alert, oriented x 3 Skin: bed sores Core Measures ACS in differential dx? No CVA/TIA Diagnosis: No Severe Sepsis Present: No Septic Shock Present: No (JACQUELYN CHRISTIANSON) Progress Differential Diagnoses I considered the following diagnoses in my evaluation of the patient: Cellulitis, osteomyelitis, sepsis, pneumonia, UTI, Plan of Care: Orders Procedure Date/time Status CBC WITHOUT DIFFERENTIAL 03/08 06 Active BASIC ELECTROLYTES PLUS BUN&CR 03/08 06 Active LOWER RESPIRATORY CULTURE 03/07 1121 Active BLOOD CULTURE 03/07 1014 Active US-RENAL/KIDNEY 03/07 UNK Active Lab Add-on Test 03/07 UNK Active Nursing Misc 03/07 UNK Active MISSING MEDICATION FORM 03/07 UNK Active CREATINE PHOSPHOKINASE 03/06 0535 Complete AEROSOL CHG 03/06 UNK Complete Current Medications Sig/Mey Start time Last Medication Dose Stop Time Status Admin Oxybutynin Chloride 10 MG TID 03/07 1600 AC 03/07 (Ditropan) 2212 Vancomycin HCl 1,000 MG Q12 03/07 1128 AC 03/07 Sodium Chloride 250 ML 2312 (Normal Saline 0.9%) Albuterol Sulfate 3 ML BID 03/06 2200 AC 03/07 (Proventil) 1851 Ipratropium [place] 2.5 ML BID 03/06 2200 AC 03/07 (Atrovent) 1851 Melatonin 5 MG AT BEDTIME 03/06 2200 AC 03/07 (Melatonin) 2212 Mirtazapine 7.5 MG AT BEDTIME 03/06 2200 AC 03/07 (Remeron) 2212 Sodium Hypochlorite 1 HILARIA BID 03/06 2200 AC 03/07 2212 Atorvastatin Calcium 10 MG 1700 03/06 1700 AC 03/07 (Lipitor) 1651 Aspirin Buffered 81 MG DAILY 03/06 1000 AC 03/07 (Ecotrin) 1015 Baclofen 10 MG DAILY 03/06 1000 AC 03/07 (Lioresal 10MG 1016 Tablet) Cyanocobalamin 1,000 MCG DAILY 03/06 1000 AC 03/07 (Vitamin B12) 1016 Lactobacillus 1 CAP DAILY 03/06 1000 AC 03/07 Acidophilus 1016 (Probiotic) Levetiracetam 500 MG QAM 03/06 1000 AC 03/07 (Keppra) 1016 Multivitamins 1 TAB DAILY 03/06 1000 AC 03/07 Therapeutic 1016 (Theragran-M Vitamins Tabs) Omeprazole 20 MG DAILY 03/06 1000 AC 03/07 (Prilosec) 1016 Protein 2 PKT BID 03/06 1000 AC 03/06 (Resource 2140 Beneprotein) Rivaroxaban 20 MG DAILY 03/06 1000 AC 03/07 (Xarelto) 1016 Oxycodone HCl 10 MG Q8 03/06 0600 AC 03/08 (Roxicodone) 0629 Ipratropium [place] 2.5 ML ONCE PRN 03/06 043 AC (Atrovent) Trazodone HCl 25 MG Q12H PRN 03/06 043 AC (Desyrel) Laboratory Tests 03/08/17 0606: BUN Cancelled, Creatinine Cancelled, BUN/Creatinine Ratio Cancelled 03/08/17 0606: Sodium Pending, Potassium Pending, Chloride Pending, Carbon Dioxide Pending, Anion Gap Pending, BUN Pending, Creatinine Pending, BUN/Creatinine Ratio Pending , CBC w Diff Pending, WBC Pending, RBC Pending, Hgb Pending, Hct Pending, MCV Pending, MCH Pending, RDW Pending, Plt Count Pending, MPV Pending, PUBS MCHC Pending Microbiology 03/07 1121 LOWER RESP: Respiratory Culture - COLB 03/07 1121 LOWER RESP: Gram Stain - COLB 03/07 1113 BLOOD: Blood Culture - RECD 03/07 1054 BLOOD: Blood Culture - RECD Initial ED EKG: normal intervals, normal p-waves, normal sinus rhythm, rate (105 ) Hand-Off Endorsed To: IESHA MULLIGAN,BARB Trevino Endorsed Time: 004 Pending: labs, other (ua) Comments: 03/06/2017 12:49:41 AM Patient signout to Dr. Mayorga. Patient is pending a full evaluation still. Nothing has been drawn yet percent. IV fluids of been ordered. Dr. Mayorga is aware that the patient is hypotensive. (JUVENTINO WATSON,JACQUELYN) Differential Diagnoses I considered the following diagnoses in my evaluation of the patient: Comments: 03/06/2017 2:25:30 AM patient's blood pressure is responding to IV fluid boluses. Otherwise remains clinically stable. I have discussed his case with Dr. Cole , patient is to be admitted to intensive care unit for sepsis. (BARB MAYORGA MD) Departure Departure Disposition: STILL A PATIENT Condition: Stable Referrals: SLIM COLE MD (PCP/Family) Departure Forms: Customer Survey General Discharge Information (JACQUELYN CHRISTIANSON) Departure Clinical Impression Primary Impression: Septic shock Secondary Impressions: Anemia Qualifiers: Anemia type: unspecified type Qualified Code: D64.9 - Anemia, unspecified Admission Note Spoke With: SLIM COLE MD Documentation of Exam: Documentation of any treatments & extenuating circumstances including Concerns Regarding Discharge (functional status, medication knowledge or non-compliance, living conditions, etc.) that warrant an admission rather than observation: Patient has a fever and low blood pressure consistent with septic shock although the cause is somewhat unclear at this point. He is at very high risk of mortality and requires ICU level care with IV fluid boluses and aggressive management via IV antibiotics and close clinical monitoring. He cannot be safely treated as an outpatient under the circumstances. Given his advanced age and medical comorbidities he will likely require a multiple day hospitalization. Infectious disease consultation should be considered. Blood culture results should be followed and treated accordingly. IV fluids should be bolused until renal functions and blood pressure stabilize. PA/ASSEMBLY RIVETER Co-Sign Statement Statement: ED Attending supervision documentation- [x] I saw and evaluated the patient. I have also reviewed all the pertinent lab results and diagnostic results. I agree with the findings and the plan of care as documented in the PA's/ASSEMBLY RIVETER's documentation. [] I have reviewed the ED Record and agree with the PA's/ASSEMBLY RIVETER's documentation. [] Additions or exceptions (if any) to the PAs/ASSEMBLY RIVETER's note and plan are summarized below: [] (BARB MAYORGA MD) Critical Care Note Critical Care Note Critical Care Time: non-applicable (JACQUELYN CHRISTIANSON) Critical Care Note Critical Care Time: 30-74 min (BARB MAYORGA MD)
--- NOTE | 2017-03-06 01:08 | NUR ---
THIS RN PLACED IV SITE #1 IN RAC #20. LABS DRAWN AND SENT (SST, HOLDEN, BLUE ,LAV) THIS RN SILVESTRE FIRST BLOOD CULTURE SET
--- NOTE | 2017-03-06 01:10 | NUR ---
NS BOLUS STARTED. PT MEDICATED WITH FORTAZ 1,000MG IV. VANCOMYCIN 1,000MG STARTED AT 250ML/HR
[2017-03-06 01:13] LABS: ABSOLUTE BASOPHIL COUNT 0 /CUMM (0.0-0.2); ABSOLUTE EOSINOPHIL COUNT 0.2 /CUMM (0.0-0.7); ABSOLUTE GRANULOCYTE CT 7.7 /CUMM (1.4-6.5); ABSOLUTE LYMPH COUNT 1.1 /CUMM (1.2-3.4); ABSOLUTE MONOCYTE COUNT 1.9 /CUMM (0.10-0.60); BASOPHIL % 0.4 % (0.0-2.0); EOSINOPHIL % 2.1 % (0-5); GRANULOCYTE % 69.7 % (42.2-75.2); HEMATOCRIT 24.1 % (42-52); MEAN CORPUSCULAR HGB 26.3 PG (27.0-31.0); MEAN CORPUSCULAR HGB CONC 32.9 G/DL (33.0-37.0); MEAN CORPUSCULAR VOLUME 79.9 FL (80.0-94.0); MEAN PLATELET VOLUME 6.5 FL (7.4-10.4); PLATELET COUNT 778 /CUMM (130-400); RBC DISTRIBUTION WIDTH 20.3 % (11.5-14.5); RED BLOOD CELL CT 3.01 /CUMM (4.70-6.10)
--- NOTE | 2017-03-06 02:10 | NUR ---
PT BP INCREASED TO 96/49 WITH NS BOLUS
--- NOTE | 2017-03-06 02:55 | History & Physical ---
AZRA MULLIGAN,[facility] 03/06/17 0253: General Information and HPI MD Statement: I have seen and personally examined YOLANDA PETERSON and documented this H&P. The patient is a 71 year old M who presented with a patient stated chief complaint of fever and Low BP Source of Information: patient, old records Exam Limitations: no limitations History of Present Illness: Mr Peterson is a 71/M with PMH of paraplegia, suprapubic catheter, stage IV sacral ulcer with vac in place, colostomy, MRSA, VRE, CAD sp CABG, AAA sp repair X 2 times, HTN, HLD, anxiety, depression, DM, prostate cancer, and PE on xarelto was sent in to [facility] ED due to increased temperature of 100.6 and being confused at [facility]. Patient comes in from [facility]. Patiently is currently bedbound due to history of paralysis. APAP at [facility] was not effective at relieving his symptoms. He was last seen at [facility] on 02/02/2017, when he was sent in for altered mental status, fever and lethargy. He was subsequently discharged on a dose of oral vancomycin. This evening the patient complains of generalized pain. Rated at a ten our of ten. At the time of our clinical encounter, the patient was alert and oreinted X 3, and appeared to be upset owing to the multiple inturruptions since being brought to the emergency. He requested that he would like to be left alone so that he could sleep. He is currently a full code. 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 Needs Assist: dressing, toileting, bathing. Ambulation: non-ambulatory IADLs Needs Assist: shopping, housework, finances, food prep, telephone, transportation, medication admin. Review of Systems Review of Systems Constitutional: Reports: malaise, weakness. Denies: chills, diaphoresis, fever. Cardiovascular: Denies: chest pain, edema, orthopena, palpitations. Respiratory: Denies: cough, hemoptysis, orthopnea, short of breath, sputum production. GI: Denies: abdominal pain, bloating, constipation, diarrhea, distention, bowel incontinence, melena, nausea, bloody stool. Genitourinary: Denies: discharge, dysuria, frequency, hematuria, hesitation. Musculoskeletal: Reports: back pain, joint pain, joint swelling, muscle pain, muscle stiffness. Skin: Denies: cysts, change in skin color, change in hair/nails, dryness, erythema, jaundice, lesions. Neurological/Psychological: Denies: anxiety, ataxia, cognitive dysfunction, confusion, depressed, dementia, emotional problems, headache, numbness, paresthesia. Exam & Diagnostic Data Last 24 Hrs of Vital Signs/I&O Vital Signs Date Time Temp Pulse Resp B/P B/P Pulse O2 O2 Flow FiO2 Mean Ox Delivery Rate 03/06 0430 97.7 87 20 121/57 95 Room Air 03/06 0315 98.8 90 20 115/52 94 Room Air 03/06 0209 99.3 93 20 96/49 95 Room Air 03/05 2357 100.3 110 20 78/40 93 Room Air Intake & Output 03/06 0800 03/06 0000 03/05 1600 Intake Total 1250 Output Total Balance 1250 Intake, IV 1250 Patient 73.482 kg Weight Weight Reported by Patient Measurement Method Physical Exam General Appearance Alert, Oriented X3, No Acute Distress Skin No Rashes Skin Temp/Moisture Exam: Warm/Dry Sepsis Skin Exam (color): Normal for Ethnicity, Cyanotic HEENT Atraumatic, PERRLA, EOMI Neck Supple Cardiovascular Regular Rate, Normal S1, Normal S2 Lungs Clear to Auscultation, Increased Breath Sounds. ?Expiratory Rhonchi Abdomen Normal Bowel Sounds, Soft, Colostomy Bag in Place. Left Lower abdominal wound. Draning Well. Neurological Normal Speech, Decreased Sensation. Patient endorses no sensory perception below C3/C4. Extremities No Clubbing, No Cyanosis, No Edema, Normal Pulses Reproductive (MALE) Penis incontinent of Urine. SPT in Place Body Front and Back (Adult) 1) Right Ichial Wound. 5 cm x 5 Cm 2) Left Ischial Wound 2 X 4 cm X 4 Cm Last 24 Hrs of Labs/Perfecto: Laboratory Tests 03/06/17 0225: Urine Color YEL, Urine Clarity CLDY H, Urine pH 7.0, Ur Specific [place] 1.015, Urine Protein 30 H, Urine Ketones NEG, Urine Nitrite NEG, Urine Bilirubin NEG, Urine Urobilinogen 0.2, Ur Leukocyte Esterase LARGE H, Ur Microscopic SEDIMENT EXAMINED, Urine RBC 5-10 H, Urine WBC > 75 H, Urine Bacteria MANY H, Urine Mucus FEW, Micro UA Comment BUDDING YEAST H, Urine Hemoglobin MOD H, Urine Glucose NEG 03/06/17104: Anion Gap 13, Estimated GFR 55 L, BUN/Creatinine Ratio 53.8 H, Glucose 102 H, Lactic Acid 1.1, Calcium 8.9, Total Bilirubin 0.4, AST 13 L, ALT 23, Alkaline Phosphatase 136 H, Troponin I < 0.01, Total Protein 7.1, Albumin 2.7 L, Globulin 4.4 H, Albumin/Globulin Ratio 0.6 L, CBC w Diff NO MAN DIFF REQ, RBC 3.01 L, MCV 79.9 L, MCH 26.3 L, RDW 20.3 H, MPV 6.5 L, Gran % 69.7, Lymphocytes % 10.4 L, Monocytes % 17.4 H, Eosinophils % 2.1, Basophils % 0.4, Absolute Granulocytes 7.7 H, Absolute Lymphocytes 1.1 L, Absolute Monocytes 1.9 H, Absolute Eosinophils 0.2, Absolute Basophils 0, PUBS MCHC 32.9 L Microbiology 03/06 107 BLOOD: Blood Culture - RECD 03/06 100 BLOOD: Blood Culture - RECD Diagnostic Data CXR Results EXAM TYPE: RAD - XRY-PORTABLE CHEST XRAY EXAMINATION: CHEST 1 VIEW CLINICAL INFORMATION: Fever, hypotension. COMPARISON: February 09, 2017. TECHNIQUE: An AP view of the chest is provided. FINDINGS: The cardiac silhouette is stable. Intact midline sternal wires are present. The mediastinal and hilar contours are unremarkable. There are neither pleural effusions nor pneumothoraces. There is stable elevation of the left hemidiaphragm. There is hazy opacification within the left midlung, improved from prior exam. The osseous structures are unremarkable. IMPRESSION: Mild hazy opacification within the left midlung, improved from prior exam, but persistent. Stable elevation of the left hemidiaphragm. DICTATED BY: CHARLINE LYNN MD Assessment/Plan Assessment: Mr Peterson is a 71/M with PMH of paraplegia, suprapubic catheter, stage IV sacral ulcer with vac in place, colostomy, MRSA, VRE, CAD sp CABG, AAA sp repair X 2 times, HTN, HLD, anxiety, depression, DM, prostate cancer, and PE on xarelto was sent in to [facility] ED due to increased temperature of 100.6 and being confused at [facility]. Patient comes in from [facility]. Patiently is currently bedbound due to history of paralysis. Patient will be admitted to the ICU for closer moniroting. #Sepsis of urological origin vs Osteomyelitis . Vital signs on admission pulse: 110 and evidence of end organ Damage: Confusion. Initial Troponin: WNL. Patient bolused 2 L of Normal saline in ED, which he responded well to. No need for pressors yet. Maintain MAP >65.Consider central line, if warranted. Patient continues to be incontinent of urine via penis. Consider urology consult in AM. In the interim consider a Boston catheter to prevent continued urinary drainage from penis. Urine is most likley soaking through to wound ulcers. CBC in AM ESR in AM. If elevated, consider MRI to rule out Osteomylitis. #History of diabetes Blood sugar on admission 102 Accu-Cheks every 6 Begin NovoLog sliding scale. Sugars remain uncontrolled will consider endocrinology consult in a.m. Maintain blood sugars below between 140 and 180. #Hx of coronary artery disease Contiunue Aspirin. Hold KATHARINE. Hold Lasix. #Suprapubic catheter and history of bladder carcinoma. Irrigate SPT 60 mL normal saline, Q shift. Ensure patency. Urology Consultation in AM, to assess continued urinary drainage from Penis. #History of Stage IV Ulcer. Wound care consultation in am. Dolphin mattress VAC was in place but currently not draining. Patient may require plastics or surgical consultation in AM. Would Vac may need to be repositioned and connected to machine. History of Depressive disorder. Continue Mirtazapine Consider Psych consultation in a.m. Contact precautions DVT Prophylaxis: Xarelto Code Full code Core Measures/Miscellaneous Cerebrovascular Accident CVA/TIA Diagnosis: No Severe Sepsis Severe Sepsis Present: No BC x2: Yes Lactic Acid x2: Yes IV ABX Broad Spectrum: Yes Septic Shock Septic Shock Present: No MERON HILL 03/06/17 0255: General Information and HPI Allergies/Medications Home Med list Acetaminophen (Q-Pap) 325 MG TABLET 2 TAB PO Q4H PRN PAIN/TEMP>/100 (Reported ) Acetaminophen (Acephen) 650 MG SUPP.RECT 1 SUPP NV Q4H PRN PAIN/TEMP>100 ( Reported) Aspirin (Ecotrin*) 81 MG TABLET.DR 1 TAB PO DAILY HEART/BLOOD (Reported) Atorvastatin Calcium (Lipitor) 10 MG TABLET 1 TAB PO DAILY CHOLESTEROL ( Reported) Baclofen 10 MG TABLET 1 TAB PO DAILY spams (Reported) Bisacodyl 10 MG SUPP.RECT 1 SUP RC PRN CONSTIPATION (Reported) Cyanocobalamin (Vitamin B-12) (Vitamin B-12) 100 MCG TABLET 1 TAB PO DAILY SUPPLEMENT (Reported) Ergocalciferol (Vitamin D2) (Vitamin D2) 50,000 UNIT CAPSULE 1 CAP PO Q30D SUPPLEMENT (Reported) Furosemide (Lasix) 20 MG TABLET 1 TAB PO Q48 DIURETIC (Reported) Ipratropium/Albuterol Sulfate (Iprat-Albut 0.5-3(2.5) MG/3 Ml) 0.5 MG-3 MG (2.5 MG BASE)/3 ML AMPUL.NEB 1 VIAL INH TID RESPIRATORY (Reported) Levetiracetam (Keppra) 500 MG TABLET 1 TAB PO QAM seizures (Reported) Lisinopril (Zestril) 10 MG TABLET 1 TAB PO DAILY BP (Reported) Magnesium Hydroxide (Milk Of Magnesia) 400 MG/5 ML ORAL.SUSP 30 ML PO DAILY PRN CONSTIPATION (Reported) Melatonin 5 MG TABLET 1 TAB PO QHS SLEEP (Reported) Metformin HCl 500 MG TABLET 1 TAB PO BID DM (Reported) Mirtazapine 15 MG TABLET 0.5 TAB PO QHS UNKNOWN (Reported) Mometasone/Formoterol (Dulera 100 Mcg/5 Mcg Inhaler) 100 MCG-5 MCG/ACTUATION HFA.AER.AD 2 PUF INH BID RESPIRATORY (Reported) Multivitamin (Multi-Day Vitamins) 1 EACH TABLET 1 TAB PO DAILY SUPPLEMENT ( Reported) Na Phos,M-B/Na Phos,Di-Ba (Fleet Enema) 19 GRAM-7 GRAM/118 ML ENEMA 1 E RC DAILY PRN CONSTIPATION (Reported) [place]-3/Dha/Epa/Fish Oil (Fish Oil 1,000 MG Softgel) 1,000 MG (120 MG-180 MG) CAPSULE 1 CAP PO DAILY SUPPLEMENT (Reported) Omeprazole 20 MG CAPSULE.DR 1 CAP PO DAILY GI (Reported) Oxycodone HCl 10 MG TABLET 1 TAB PO Q8H PAIN (Reported) Protein Supplement (Promod) 946 ML LIQUID 30 ML PO TID SUPPLEMENT (Reported) Psyllium Husk (Metamucil) (Unknown Strength) CAPSULE 1 CAP PO DAILY SUPPLEMENT (Reported) Rivaroxaban (Xarelto) 20 MG TABLET 1 TAB PO DAILY Pumonary Embolism Saccharomyces Boulardii (Florastor) 250 MG CAPSULE 1 TAB PO QHS PROBIOTIC ( Reported) Tolterodine Tartrate (Detrol LA) 4 MG CAP.ER.24H 1 CAP PO DAILY BLADDER ( Reported) Trazodone HCl 50 MG TABLET 0.5 TAB PO Q12H PRN UNKNOWN (Reported) Assessment/Plan As Ranked By This Provider Problem List: 1. Hypertension 2. Hyperlipidemia 3. CAD (coronary artery disease) 4. Abdominal aortic aneurysm 5. DVT prophylaxis 6. Full code status 7. Pneumonia 8. Sepsis 9. Diabetes 10. Hematuria 11. Urinary tract infection 12. Anxiety 13. Asthma 14. Dehydration with hypernatremia 15. Fever 16. Bacteremia 17. Diabetes 18. GERD (gastroesophageal reflux disease) 19. Asthma 20. Anxiety 21. UTI (lower urinary tract infection) 22. Vomiting and diarrhea 23. Leukocytosis 24. Decubitus ulcer 25. Anemia Qualifiers Anemia type: unspecified type Qualified Code: D64.9 - Anemia, unspecified 26. Hypokalemia 27. Chronic indwelling Boston catheter 28. Paraplegia 29. Osteomyelitis 30. Bacteremia 31. Puncture wound of rectum, open 32. Hemiplegia 33. Hypoxia 34. Pulmonary embolism 35. Septic shock 36. C. difficile colitis 37. 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 Patient was send from alf facility with temperature of 106. Apparently in the alf patient was complaining of generalized malaise and not feeling well. During routine vital signs nurse detected slight temperature of 100.6 and decided to transfer the patient to [facility] emergency room for further workup. His initial vital signs VS: 100.3/110/20/78/40. Patient was given 2 L of normal saline 1 dose of vancomycin and Fortaz and blood pressure increased to 96/49. patient denies any new nausea vomiting diarrhea, change in appetite, chest pain, palpitation, short of breath. During his last admission at [facility], from, 02/02/2017 to 2016, during which patient was treated for pneumonia and C. difficile sepsis. Mr. Rocio Padilla is an ongoing issue of persistent Boston catheter leak which was assessed in October [address] LYLES in [facility] who recommended oxybutynin to prevent ID sees resulting incontinence. Apparently despite all measures to urinary incontinence and catheter leak persisted and Mr. Padilla wounds were continuously in contact with urine. PMH: Paraplegic status post placement of a suprapubic cystostomy and diverting colostomy 2-1/2 months prior to admission to help with management of a chronic sacral decubitus, with underlying osteomyelitis, treated with multiple courses of antibiotics, and status post ostectomy with bone culture positive for Group G strep and VRE (sensitive to daptomycin), C.Diff sepsis (confirmed by PCR). Review of system: Patient is complaining of repeated if medical interviews. He denies fever and shaking chills any change in bowel habits, confusion and new weakness. Physical exam: Alert and oriented 3, patient is angry and uncooperative, not in acute distress; HEET: Mucous membranes are dry, heart: Tachycardia S1-S2, lungs are clear; physical exam of the abdomen: Colostomy bag is in place seemingly functional and normal, abdomen is soft no guarding no rebound, suprapubic catheter is in place obvious urine leak around the area of catheter insertion, patient's genital area is soaked with urine. Decubitus ulcer stage IV: No obvious postural drainage from the wound, wounds are soaked with urine. Sepsis exam: Peripheral pulses weak but bilateral and palpable; skin is warm and dry, capillary filling time not increased. Pertinent Data Leukocytosis: 11,000 with left shift but no bandemia ,platelet count 778. bicarbonate 20 BUN 70 creatinine 1.3, lactic acid of 1.1 > , troponin < 0.01, AG 13. Sofa: In the hospital scores 2; W 10 reports patient was confused which could potentially increase his sofa score. List of active problems Sepsis with elevated sofa score: Hypotension(MEP of less than 65 mmHg) which response to vigorous IV fluid resuscitation in addition to tachycardia(pain, anxiety, sepsis), and >53387 WBC. For Mr. Peterson considering his fragile status and multiple comorbid conditions sepsis needs to be considered. * Admit to ICU * On levohed for hypotension; titrate for MEP of 65 * Restrict ins and outs * Continue IV hydration with normal saline goal to decrease hour(efficacy of resuscitation); continue IV hydration NS 500 ml/h and goals set for IV hydration his urine outputs 0.5 mL * Trend lactic acid * Follow microbiology results * Patient received 1 dose of vancomycin and ceftazidime * Check ESR with the possibility of acute on chronic osteomyelitis; elevated at 108 >> <RI of the lubar spine * Patient's grew VRE and a Streptococcus group G in his bone sample in the past; for now I'm holding off any scheduled antibiotics; patient neeeds to be on Daptomycin or meropenem. * Consult infectious disease in the a.m. * Wound consult in the a.m. * Repeat labs in the a.m. * Obtain MRI of the lubar and lower back 2.ERICKA with elevated Cr 1.3: possibly in the setting of sepsis and low blood pressure and dehydration (prerenal azothemia). * continue hydration * repeat labs in the am * avoid NSAID and other nephrotoxic medication 3.History of diabetes mellitus: * Diabetes diets * Fingerstick 3 times a day before meals * Insulin aspart sliding scale 4.History of hypertension and lipidemia,With coronary artery disease * Hold Antihypertenssive medication 5. History of COPD: * TRC Q4 as needed * Duoneb Q4 * O2 supplement ( 4 lit is baseline) for O2 sat 92-94% 6. History of anxiety and depression * Trazodone at bedtime 7. Mild pain and moderate pain * IV tylenol and IV morphine 8. hX of PE * continue Xarelto 20 mg daily CODE STATUS was discussed with the patient in detail. Patient wishes to remain full code. SETH MULLIGAN,[facility] 03/06/17 0942: Attending MD Review Statement Attending Statement Attending MD Statement: examined this patient, discuss w/resident/PA/BUNDLE PACKER, agreed w/resident/PA/BUNDLE PACKER, reviewed EMR data (avail)
--- NOTE | 2017-03-06 03:18 | NUR ---
HOUSE STAFF AT BEDSIDE FOR EVAL
--- NOTE | 2017-03-06 03:20 | NUR ---
PT EXPRESSED ANGER AT "BEING WOKEN AGAIN TO ANSWER ALL THE SAME QUESTIONS" PT COOPERATIVE FOR REST OF EXAM BY HOUSE STAFF
--- NOTE | 2017-03-06 03:21 | RADIOLOGY REPORT ---
EXAMINATION: CHEST 1 VIEW CLINICAL INFORMATION: Fever, hypotension. COMPARISON: February 09, 2017. TECHNIQUE: An AP view of the chest is provided. FINDINGS: The cardiac silhouette is stable. Intact midline sternal wires are present. The mediastinal and hilar contours are unremarkable. There are neither pleural effusions nor pneumothoraces. There is stable elevation of the left hemidiaphragm. There is hazy opacification within the left midlung, improved from prior exam. The osseous structures are unremarkable. IMPRESSION: Mild hazy opacification within the left midlung, improved from prior exam, but persistent. Stable elevation of the left hemidiaphragm.
--- NOTE | 2017-03-06 04:43 | NUR ---
PT CONTINUES TO SLEEP.
--- NOTE | 2017-03-06 05:39 | NUR ---
MORNING LABD DRAWN AND SEN TO LAB. FINGERSTICK 115. PT AWOKE FOR BLOOD DRAWN AND THEN BACK TO SLEEP
[2017-03-06 05:41] LABS: ABSOLUTE BASOPHIL COUNT 0.1 /CUMM (0.0-0.2); ABSOLUTE EOSINOPHIL COUNT 0.3 /CUMM (0.0-0.7); ABSOLUTE GRANULOCYTE CT 6.2 /CUMM (1.4-6.5); ABSOLUTE LYMPH COUNT 1.1 /CUMM (1.2-3.4); ABSOLUTE MONOCYTE COUNT 1.9 /CUMM (0.10-0.60); BASOPHIL % 0.6 % (0.0-2.0); EOSINOPHIL % 3.3 % (0-5); GRANULOCYTE % 64.9 % (42.2-75.2); HEMATOCRIT 21.5 % (42-52); MEAN CORPUSCULAR HGB 25.7 PG (27.0-31.0); MEAN CORPUSCULAR HGB CONC 32.3 G/DL (33.0-37.0); MEAN CORPUSCULAR VOLUME 79.6 FL (80.0-94.0); MEAN PLATELET VOLUME 6.6 FL (7.4-10.4); PLATELET COUNT 664 /CUMM (130-400); RBC DISTRIBUTION WIDTH 20.7 % (11.5-14.5); WHITE BLOOD CELL COUNT 9.6 /CUMM (4.8-10.8)
--- NOTE | 2017-03-06 05:51 | NUR ---
CRITICAL TEST RESULTS [id number] YOLANDA SUMMERS 71 M TESTS AND RESULTS: H/H 6.9/21.5 Results received and read back by: HEATHER SNIDER Results received date and time: 03/06/17 0552 The following provider was notified of the results, and read the results back: DR CRUZ Notified date and time: 03/06/17 at 0587
[2017-03-06 06:09] LABS: ABSOLUTE BASOPHIL COUNT 0.1 /CUMM (0.0-0.2); ABSOLUTE EOSINOPHIL COUNT 0.3 /CUMM (0.0-0.7); ABSOLUTE GRANULOCYTE CT 6.1 /CUMM (1.4-6.5); ABSOLUTE LYMPH COUNT 1.1 /CUMM (1.2-3.4); ABSOLUTE MONOCYTE COUNT 1.9 /CUMM (0.10-0.60); BASOPHIL % 0.6 % (0.0-2.0); EOSINOPHIL % 2.7 % (0-5); HEMATOCRIT 23.2 % (42-52); MEAN CORPUSCULAR HGB CONC 32.3 G/DL (33.0-37.0); MEAN CORPUSCULAR VOLUME 80.4 FL (80.0-94.0); MEAN PLATELET VOLUME 6.9 FL (7.4-10.4); PLATELET COUNT 681 /CUMM (130-400); RBC DISTRIBUTION WIDTH 19.7 % (11.5-14.5); RED BLOOD CELL CT 2.88 /CUMM (4.70-6.10); WHITE BLOOD CELL COUNT 9.5 /CUMM (4.8-10.8)
--- NOTE | 2017-03-06 06:26 | NUR ---
TYPE AND SCREEN DRAWN AND REPEAT CBC DRAWN AND SENT TO LAB. VSS. PT AGREEABLE TO BE PLACED ON LEFT SIDE. OSTOMY BAG EMPTIED OF SOFT BROWN STOOL. GUIAC NEGATIVE PER DR CRUZ
--- NOTE | 2017-03-06 06:32 | NUR ---
10 MG DARSHAN ADMINISTERED FOR CHRONIC PAIN
--- NOTE | 2017-03-06 08:01 | NUR ---
DOWNGRADED TO GM. FINANCIAL SERVICES INTERN AWARE.
--- NOTE | 2017-03-06 08:08 | NUR ---
INCONTINENT OF URINE, PT WITH LARGE OPEN DRAINING WOUND TO COCCYX, 3/4 INCH DEEP, WOUND VAC TUBING ATTACHED. BLACKENED AREA TO RT HEEL, NONDRAINING. SCRUFFY PIKE NOTED, URINE DRAINING FROM PENIS, SCROTUM RED BUT NOT OPEN.... ONLY ABLE TO EAT 1 BITE OF BREAKFAST/.
--- NOTE | 2017-03-06 09:12 | NUR ---
CONT TO AWAIT BED ASSIGNMENT. CALL PLACED BY THIS PUBLICATION MANAGER FOR TAMY HERNANDEZ.
--- NOTE | 2017-03-06 09:17 | NUR ---
HOUSESTAFF AT BEDSIDE.
--- NOTE | 2017-03-06 09:33 | NUR ---
PT CONT TO AWAIT BED ASSIGNMENT.
--- NOTE | 2017-03-06 09:35 | Admission Certification ---
Admission Certification Certification Statement - As attending physician, I certify that at the time of - admission, based on clinical presentation, severity of - symptoms, need for further diagnostic testing and - therapeutic interventions, and risk of adverse outcomes - without in-hospital treatment, in my clinical assessment, - this patient requires an acute hospital stay for a minimum - of two nights or longer. I have also considered psychsocial - factors such as support system, advanced age, financial - issues, cognitive issues, and failed out-patient treatments, - past re-admission history, safety of patient, and lack of - compliance as applicable. Specific rationale supporting this admission is: Septic shock
--- NOTE | 2017-03-06 09:42 | PN- Att Addend ---
Attending Addendum Attending Brief Note Patient has no complaints except for some lethargy. He denies fever or difficulty breathing or cough. General Appearance: Alert, No Acute Distress Skin: Wound VAC at decubitus with odor HEENT: PEERLA Neck: Supple, No JVD Cardiovascular: Regular Rate, Normal S1, Normal S2, No Murmurs Lungs: Decreased air entry at bases Abdomen: Normal Bowel Sounds, Soft, No Tenderness Extremities: No Clubbing, No Cyanosis, No Edema Assessment 71-year-old with history of paraplegia, suprapubic catheter and stage IV sacral ulcer followed by wound care and currently has a wound VAC in place. He was recently diagnosed with lumbosacral and distal tuberosity osteomyelitis for which he completed prolonged IV daptomycin. He had then returned with pneumonia treated for MRSA with vancomycin and was later identified that patient had C. difficile. At that point he was discharged on oral vancomycin. He now returns back with a low-grade fever, and altered mental status. On admission patient had signs of septic shock requiring fluid resuscitation and a dose of antibiotics. Suspect sepsis secondary to infected decubitus versus lumbosacral osteomyelitis. We will discontinue the wound VAC and also get an MRI of his lumbar sacral spine to rule out osteomyelitis. Chronic anemia. Plan MRI lumbosacral spine Wound and plastic surgery evaluation Discontinue wound VAC ID consult Antibiotics as per ID Blood and urine cultures Transfuse for hemoglobin less than 7 Continue other home medications DVT prophylaxis Current Medications Sig/Mey Start time Last Medication Dose Route Stop Time Status Admin Aspirin Buffered 81 MG DAILY 03/06 1000 AC PO Atorvastatin Calcium 10 MG 1700 03/06 1700 AC PO Baclofen 10 MG DAILY 03/06 1000 AC PO Ceftazidime 0 .STK-MED ONE 03/06 0138 DC .ROUTE Ceftazidime 1,000 MG ONCE ONE 03/06 0015 DC 03/06 IV 03/06 0016 0110 Cyanocobalamin 1,000 MCG DAILY 03/06 1000 AC PO Ipratropium Danube 2.5 ML ONCE PRN 03/06 0430 AC INH Lactobacillus 1 CAP DAILY 03/06 1000 AC Acidophilus PO Levetiracetam 500 MG QAM 03/06 1000 AC PO Melatonin 5 MG AT BEDTIME 03/06 2200 AC PO Mirtazapine 7.5 MG AT BEDTIME 03/06 2200 AC PO Multivitamins 1 TAB DAILY 03/06 1000 AC Therapeutic PO Omeprazole 20 MG DAILY 03/06 1000 AC PO Oxycodone HCl 0 .STK-MED ONE 03/06 0631 DC PO Oxycodone HCl 10 MG Q8 03/06 0600 AC 03/06 PO 0631 Protein 2 PKT BID 03/06 1000 AC PO Rivaroxaban 20 MG DAILY 03/06 1000 AC PO Sodium Chloride 1,000 ML BOLUS ONE 03/06 0400 DC IV 03/06 0559 Sodium Chloride 1,000 ML BOLUS ONE 03/06 0015 DC 03/06 IV 03/06 0114 0110 Sodium Chloride 1,000 ML BOLUS ONE 03/06 0015 DC 03/06 IV 03/06 0114 0446 Tolterodine Tartrate 4 MG DAILY 03/06 1000 AC PO Trazodone HCl 25 MG Q12H PRN 03/06 0430 AC PO Vancomycin HCl 0 .STK-MED ONE 03/06 0147 DC .ROUTE Vancomycin HCl 1,000 MG ONCE ONE 03/06 0015 DC 03/06 Sodium Chloride 250 ML IV 03/06 0114 0110 Laboratory Tests 03/06 03/06 0615 0600 Chemistry Lactic Acid Cancelled Hematology CBC w Diff NO MAN DIFF REQ WBC (4.8 - 10.8 /CUMM) 9.5 RBC (4.70 - 6.10 /CUMM) 2.88 L Hgb (14.0 - 18.0 G/DL) 7.5 L Hct (42 - 52 %) 23.2 L MCV (80.0 - 94.0 FL) 80.4 MCH (27.0 - 31.0 PG) 26.0 L RDW (11.5 - 14.5 %) 19.7 H Plt Count (130 - 400 /CUMM) 681 H MPV (7.4 - 10.4 FL) 6.9 L Gran % (42.2 - 75.2 %) 65.0 Lymphocytes % (20.5 - 51.1 %) 11.9 L Monocytes % (1.7 - 9.3 %) 19.8 H Eosinophils % (0 - 5 %) 2.7 Basophils % (0.0 - 2.0 %) 0.6 Absolute Granulocytes (1.4 - 6.5 /CUMM) 6.1 Absolute Lymphocytes (1.2 - 3.4 /CUMM) 1.1 L Absolute Monocytes (0.10 - 0.60 /CUMM) 1.9 H Absolute Eosinophils (0.0 - 0.7 /CUMM) 0.3 Absolute Basophils (0.0 - 0.2 /CUMM) 0.1 PUBS MCHC (33.0 - 37.0 G/DL) 32.3 L 03/06 05 0535 0314 Chemistry Sodium (137 - 145 mmol/L) 137 Potassium (3.5 - 5.1 mmol/L) 4.4 Chloride (98 - 107 mmol/L) 109 H Carbon Dioxide (22 - 30 mmol/L) 18 L Anion Gap (5 - 16) 10 BUN (9 - 20 mg/dL) 67 H Creatinine (0.7 - 1.2 mg/dL) 1.1 Estimated GFR (>60 ml/min) > 60 BUN/Creatinine Ratio (7 - 25 %) 60.9 H Lactic Acid (0.7 - 2.1 mmol/L) 0.9 Cancelled Hematology CBC w Diff NO MAN DIFF REQ WBC (4.8 - 10.8 /CUMM) 9.6 RBC (4.70 - 6.10 /CUMM) 2.70 L Hgb (14.0 - 18.0 G/DL) 6.9 *L Hct (42 - 52 %) 21.5 L MCV (80.0 - 94.0 FL) 79.6 L MCH (27.0 - 31.0 PG) 25.7 L RDW (11.5 - 14.5 %) 20.7 H Plt Count (130 - 400 /CUMM) 664 H MPV (7.4 - 10.4 FL) 6.6 L Gran % (42.2 - 75.2 %) 64.9 Lymphocytes % (20.5 - 51.1 %) 11.5 L Monocytes % (1.7 - 9.3 %) 19.7 H Eosinophils % (0 - 5 %) 3.3 Basophils % (0.0 - 2.0 %) 0.6 Absolute Granulocytes (1.4 - 6.5 /CUMM) 6.2 Absolute Lymphocytes (1.2 - 3.4 /CUMM) 1.1 L Absolute Monocytes (0.10 - 0.60 /CUMM) 1.9 H Absolute Eosinophils (0.0 - 0.7 /CUMM) 0.3 Absolute Basophils (0.0 - 0.2 /CUMM) 0.1 PUBS MCHC (33.0 - 37.0 G/DL) 32.3 L ESR Westergren (0 - 10 MM) 108 H 03/065 0105 Chemistry Sodium (137 - 145 mmol/L) 137 Potassium (3.5 - 5.1 mmol/L) 4.9 Chloride (98 - 107 mmol/L) 104 Carbon Dioxide (22 - 30 mmol/L) 20 L Anion Gap (5 - 16) 13 BUN (9 - 20 mg/dL) 70 H Creatinine (0.7 - 1.2 mg/dL) 1.3 H Estimated GFR (>60 ml/min) 55 L BUN/Creatinine Ratio (7 - 25 %) 53.8 H Glucose (65 - 99 mg/dL) 102 H Lactic Acid (0.7 - 2.1 mmol/L) 1.1 Calcium (8.4 - 10.2 mg/dL) 8.9 Total Bilirubin (0.2 - 1.3 mg/dL) 0.4 AST (17 - 59 U/L) 13 L ALT (21 - 72 U/L) 23 Alkaline Phosphatase (< 127 U/L) 136 H Troponin I (<0.11 ng/ml) < 0.01 Total Protein (6.3 - 8.2 g/dL) 7.1 Albumin (3.5 - 5.0 g/dL) 2.7 L Globulin (1.9 - 4.2 gm/dL) 4.4 H Albumin/Globulin Ratio (1.1 - 2.2 %) 0.6 L Hematology CBC w Diff NO MAN DIFF REQ WBC (4.8 - 10.8 /CUMM) 11.0 H RBC (4.70 - 6.10 /CUMM) 3.01 L Hgb (14.0 - 18.0 G/DL) 7.9 L Hct (42 - 52 %) 24.1 L MCV (80.0 - 94.0 FL) 79.9 L MCH (27.0 - 31.0 PG) 26.3 L RDW (11.5 - 14.5 %) 20.3 H Plt Count (130 - 400 /CUMM) 778 H MPV (7.4 - 10.4 FL) 6.5 L Gran % (42.2 - 75.2 %) 69.7 Lymphocytes % (20.5 - 51.1 %) 10.4 L Monocytes % (1.7 - 9.3 %) 17.4 H Eosinophils % (0 - 5 %) 2.1 Basophils % (0.0 - 2.0 %) 0.4 Absolute Granulocytes (1.4 - 6.5 /CUMM) 7.7 H Absolute Lymphocytes (1.2 - 3.4 /CUMM) 1.1 L Absolute Monocytes (0.10 - 0.60 /CUMM) 1.9 H Absolute Eosinophils (0.0 - 0.7 /CUMM) 0.2 Absolute Basophils (0.0 - 0.2 /CUMM) 0 PUBS MCHC (33.0 - 37.0 G/DL) 32.9 L Urines Urine Color (YEL,AMB,STR) YEL Urine Clarity (CLEAR) CLDY H Urine pH (5.0 - 8.0) 7.0 Ur Specific [place] (1.001 - 1.035) 1.015 Urine Protein (NEG,<30 MG/DL) 30 H Urine Ketones (NEG) NEG Urine Nitrite (NEG) NEG Urine Bilirubin (NEG) NEG Urine Urobilinogen (0.1 - 1.0 EU/dl) 0.2 Ur Leukocyte Esterase (NEG) LARGE H Ur Microscopic SEDIMENT EXAMINED Urine RBC (0 - 5 /HPF) 5-10 H Urine WBC (0 - 2 /HPF) > 75 H Urine Bacteria (NEG/NONE) MANY H Urine Mucus (FEW,NONE) FEW Micro UA Comment BUDDING YEAST H Urine Hemoglobin (NEG) MOD H Urine Glucose (N MG/DL) NEG Vital Signs Date Time Temp Pulse Resp B/P B/P Pulse O2 O2 Flow FiO2 Mean Ox Delivery Rate 03/06 0755 97.5 83 20 125/60 95 Room Air 03/06 0629 97.4 84 20 125/59 97 Room Air 03/06 0538 97.5 89 20 107/53 97 Room Air 03/06 0430 97.7 87 20 121/57 95 Room Air 03/06 0315 98.8 90 20 115/52 94 Room Air 03/06 0209 99.3 93 20 96/49 95 Room Air 03/05 2357 100.3 110 20 78/40 93 Room Air
--- NOTE | 2017-03-06 10:38 | NUR ---
[facility] CONTACTED FOR TRANSPORT TO MRI
--- NOTE | 2017-03-06 10:47 | NUR ---
PT TO MRI, HOUSESTAFF PAGED PER PT NEEDS SOMETHING D/T CLOSTRAPHOBIA. NO BED ASSIGNMENT
--- NOTE | 2017-03-06 11:10 | NUR ---
NO ANSWER X 5 AT 296.... SPOKE WITH DR. CULVER, PT WAS NOT SIGNED OUT TO HIM, BEEPER 296, NOT DAY PROVIDER.
--- NOTE | 2017-03-06 11:15 | NUR ---
RECIEVED CALL FROM DR. BALTAZAR AWARE PT NEEDS SOMETHING FOR MRI D/T CLOSTRAPHOBIA, SHE REPORTS ORDER IS IN, AND SHE WAS UNSURE WHAT TO ORDER. PT REMAINS IN MRI, NO BED ASSIGNMENT AT THIS TIME.
--- NOTE | 2017-03-06 11:45 | NUR ---
remains in mri, no bed assignment as of this time.
--- NOTE | 2017-03-06 11:46 | NUR ---
BED 210-1 RN INFORMED
--- NOTE | 2017-03-06 12:00 | NUR ---
REPORT TO MIMA ON 2NB PT REMAINS IN MRI, [facility] CONTACTED [phone]. PT TO GO TO FLOOR FROM MRI.
--- NOTE | 2017-03-06 12:03 | Event Note ---
Event Note Event Note: Got a page from the nursing staff taking care of Kristen Guajardo in ER at 11: 30am. I was informed patient is anxious & claustrophobic to go to MRI. I immediately communicated with MRI staff. They are online education manager with me throughout the time when patient went through the machine. He tolerated MRI well.
[2017-03-06 12:34] VITALS: BP 84/40
--- NOTE | 2017-03-06 13:20 | Cons- Wound Care ---
General Information and HPI Consulting Request Date of Consult: 03/06/17 Requested By: JEANNIE ANN MD Reason for Consult: Multiple pressure ulcers present on admission History of Present Illness: Patient is 71-year-old patient quadriplegic admitted with concerns regarding sepsis for evaluation of multiple pressure ulcers present on admission. This Is Had Multiple Stage IV Pressure Ulcers Some of Which Were Complicated by Osteomyelitis for Which She Underwent Antibiotic Treatment. He's had use of offloading mattress and wound VAC therapy though these have failed to improve. Allergies/Medications Allergies: Coded Allergies: ibuprofen (UNKNOWN 01/18/17) Home Med List: Acetaminophen (Q-Pap) 325 MG TABLET 2 TAB PO Q4H PRN PAIN/TEMP>/100 (Reported ) Acetaminophen (Acephen) 650 MG SUPP.RECT 1 SUPP AK Q4H PRN PAIN/TEMP>100 ( Reported) Aspirin (Ecotrin*) 81 MG TABLET.DR 1 TAB PO DAILY HEART/BLOOD (Reported) Atorvastatin Calcium (Lipitor) 10 MG TABLET 1 TAB PO DAILY CHOLESTEROL ( Reported) Baclofen 10 MG TABLET 1 TAB PO DAILY spams (Reported) Bisacodyl 10 MG SUPP.RECT 1 SUP RC PRN CONSTIPATION (Reported) Cyanocobalamin (Vitamin B-12) (Vitamin B-12) 100 MCG TABLET 1 TAB PO DAILY SUPPLEMENT (Reported) Ergocalciferol (Vitamin D2) (Vitamin D2) 50,000 UNIT CAPSULE 1 CAP PO Q30D SUPPLEMENT (Reported) Furosemide (Lasix) 20 MG TABLET 1 TAB PO Q48 DIURETIC (Reported) Ipratropium/Albuterol Sulfate (Iprat-Albut 0.5-3(2.5) MG/3 Ml) 0.5 MG-3 MG (2.5 MG BASE)/3 ML AMPUL.NEB 1 VIAL INH TID RESPIRATORY (Reported) Levetiracetam (Keppra) 500 MG TABLET 1 TAB PO QAM seizures (Reported) Lisinopril (Zestril) 10 MG TABLET 1 TAB PO DAILY BP (Reported) Magnesium Hydroxide (Milk Of Magnesia) 400 MG/5 ML ORAL.SUSP 30 ML PO DAILY PRN CONSTIPATION (Reported) Melatonin 5 MG TABLET 1 TAB PO QHS SLEEP (Reported) Metformin HCl 500 MG TABLET 1 TAB PO BID DM (Reported) Mirtazapine 15 MG TABLET 0.5 TAB PO QHS UNKNOWN (Reported) Mometasone/Formoterol (Dulera 100 Mcg/5 Mcg Inhaler) 100 MCG-5 MCG/ACTUATION HFA.AER.AD 2 PUF INH BID RESPIRATORY (Reported) Multivitamin (Multi-Day Vitamins) 1 EACH TABLET 1 TAB PO DAILY SUPPLEMENT ( Reported) Na Phos,M-B/Na Phos,Di-Ba (Fleet Enema) 19 GRAM-7 GRAM/118 ML ENEMA 1 E RC DAILY PRN CONSTIPATION (Reported) Comfort-3/Dha/Epa/Fish Oil (Fish Oil 1,000 MG Softgel) 1,000 MG (120 MG-180 MG) CAPSULE 1 CAP PO DAILY SUPPLEMENT (Reported) Omeprazole 20 MG CAPSULE.DR 1 CAP PO DAILY GI (Reported) Oxycodone HCl 10 MG TABLET 1 TAB PO Q8H PAIN (Reported) Protein Supplement (Promod) 946 ML LIQUID 30 ML PO TID SUPPLEMENT (Reported) Psyllium Husk (Metamucil) (Unknown Strength) CAPSULE 1 CAP PO DAILY SUPPLEMENT (Reported) Rivaroxaban (Xarelto) 20 MG TABLET 1 TAB PO DAILY Pumonary Embolism Saccharomyces Boulardii (Florastor) 250 MG CAPSULE 1 TAB PO QHS PROBIOTIC ( Reported) Tolterodine Tartrate (Detrol LA) 4 MG CAP.ER.24H 1 CAP PO DAILY BLADDER ( Reported) Trazodone HCl 50 MG TABLET 0.5 TAB PO Q12H PRN UNKNOWN (Reported) Past History Travel History Traveled to [place] past 21 day No Medical History Neurological: PARAPLEGIA STATUS POST SPINAL SHOCK POSTOP EENT: NONE Cardiovascular: CAD, hypertension, hyperlipidemia, ABDOMINAL ANEURYSM Respiratory: asthma, pulmonary embolism Gastrointestinal: GERD Hepatic: NONE Renal: neurogenic bladder, UTI Musculoskeletal: decubitis ulcer (OSTEOMYELITIS) Psychiatric: anxiety, depression Endocrine: DIABETES TYPE 2 Blood Disorders: NONE Cancer(s): prostate cancer 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 Long-Term Facility Services at Home: Home Health Aide, Nursing Primary Language: Wallisian Smoking Status: Former Smoker Functional Ability ADLs Independent: eating. Needs Assist: dressing, toileting, bathing. Ambulation: non-ambulatory IADLs Needs Assist: shopping, housework, finances, food prep, telephone, transportation, medication admin. Exam & Diagnostic Data Vital Signs and I&O Vital Signs Result Date Time Pulse Ox 96 03/06 1234 B/P 84/40 03/06 1234 O2 Delivery Room Air 03/06 1234 Temp 98.8 03/06 1234 Pulse 94 03/06 1234 Resp 20 03/06 1234 Intake & Output 03/06 0000 03/05 1600 03/05 0800 Intake Total Output Total Balance Patient 162 lb Weight Weight Reported by Patient Measurement Method Exam of multiple ulcers though there to be on the left lower extremity 3 x 1 cm unstageable ulcer with dark slough the right heel is a 5 x 2 dry blister without drainage over the right hip is an 8 x 4 cm stage IV pressure ulcer over the coccyx is a 14 x 8 cm exposed ulcer with multiple areas of exposed bone over the left hip is a 4 x 2 cm unstageable ulcer 100% yellow slough. Patient has significant anemia markedly elevated sedimentation rate and reduced albumin. Assessment/Plan Impression/Plan: 71-year-old quadriplegic with multiple long-standing pressure ulcers some of which have been complicated by osteomyelitis. There is significant concern over osteomyelitis at the right hip and coccyx. There may be joint capsule exposed over the right hip multiple areas of exposed bone within the coccyx wound. Patient has failed wound VAC therapy flap closure and colostomy and suprapubic tube diversion. 3 wound care can be use of quarter strength Dakin's moistened gauze placed into the wounds. Would DC wound VAC. Further evaluation of recurrent osteomyelitis is pending though likelihood of resolving these wounds is remote and an evaluation of the direction of care would be appropriate Consult Acknowledgment - Thank you for your consult request.
--- NOTE | 2017-03-06 14:02 | MRI REPORT ---
EXAMINATION: MR LUMBAR SPINE WITHOUT CONTRAST CLINICAL INFORMATION: Osteomyelitis. COMPARISON: Pelvic MRI scan also obtained 03/06/2017. CT scan of the abdomen and pelvis 01/25/2017. MRI scan of the lumbar spine 12/03/2016. TECHNIQUE: MRI of the lumbar spine without contrast was obtained using routine sequences. FINDINGS: VERTEBRAL BODIES AND PARASPINAL STRUCTURES: There is mild levoscoliosis. There has been slight interval worsening of the loss of intervertebral disc height at L2-L3. There are mild retrolistheses of L1 on L2 and L2 on L3. There is relatively extensive T2 and T1 hyperintensity along the adjacent vertebral bodies at this level consistent with Modic type II fatty endplate signal changes. There are degenerative endplate contour changes as well. Intervertebral disc signal is decreased throughout the lumbar spine, sparing L5-S1. Vertebral body heights are maintained. There are no compression fractures. There are multiple areas of increased T1 and T2 signal in the osseous structures consistent with focal fat or hemangiomata. The most prominent is in the body of S1, unchanged. Overall, marrow signal is homogenous. The left kidney is relatively atrophic. There are complex cysts in the kidneys bilaterally, which were better demonstrated on prior imaging. 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 The iliac arteries are tortuous and ectatic. The sacrum and lower pelvic structures are not included on the available images, and are better characterized on the concurrent pelvic MRI scan. CONUS MEDULLARIS AND CAUDA EQUINA: The lower thoracic spinal cord is again noted to be atrophic from T11 cephalad. The conus ends at the level of T12-L1. The cauda equina nerve roots are unremarkable. SPINAL LEVELS: L1-L2: There is [id number] bilateral facet arthropathy with ligamenta flava hypertrophy and facet joint effusions. There is a diffuse disc bulge. The neural foramina are patent. There is no central stenosis. L2-L3: There is moderate bilateral facet arthropathy with ligamenta flava hypertrophy and facet joint effusions, similar compared to the prior study. There is a broad-based posterior disc protrusion extending into the inferior neural foramina bilaterally, similar compared to the prior study. There is no central stenosis. L3-L4: There is moderate to severe bilateral facet arthropathy with ligamenta flava hypertrophy and right greater than left facet joint effusions. There is a diffuse disc bulge with inferior foraminal disc protrusions bilaterally. These appear similar compared to the prior study. There is narrowing of the subarticular recesses bilaterally and there is [id number] central stenosis. L4-L5: There is severe bilateral facet arthropathy with ligamenta flava hypertrophy and right greater than left facet joint effusions. There is a broad-based posterior disc protrusion extending into the left greater than right neural foramina. There is narrowing of the subarticular recesses bilaterally and there is moderate to severe central stenosis. L5-S1: There is moderate right and mild left facet arthropathy. There is a small central disc protrusion which does not narrow the central canal. The neural foramina are patent bilaterally. IMPRESSION: 1. The distal sacrum and coccyx are not included on the available images and are better evaluated on the concurrent MRI scan of the pelvis. 2. There are retrolistheses of L1 on L2 and L2 on L3 similar compared to the prior study. 3. There are severe degenerative endplate signal and contour changes at L2-L3, similar compared to the prior study. 4. There is moderate to severe facet arthropathy at L3-L4. There is narrowing of the subarticular recesses and there is [id number] central stenosis 5. There is severe facet arthropathy and a broad-based posterior disc protrusion at L4-L5. There is narrowing of the subarticular recesses and there is moderate to severe central stenosis. 6. There is a stable abdominal aortic aneurysm and evidence of chronic dissection.
--- NOTE | 2017-03-06 14:47 | Cons- Infect Disease ---
General Information and HPI Consulting Request Date of Consult: 03/06/17 Requested By: JEANNIE ANN MD Reason for Consult: Rule out sepsis Source of Information: patient, old records History of Present Illness: This is a 71-year-old man, shelter resident, with diabetes, coronary artery disease, pulmonary embolism, on Xarelto, and paraplegia following spinal shock after surgery for an aortic aneurysm 4 years prior to admission, with a chronic sacral decubitus and underlying osteomyelitis, for which he has been treated with multiple courses of antibiotics, most recently 4 months prior to admission, status post a diverting colostomy and suprapubic cystostomy 4 months prior to admission, hospitalized 7 weeks prior to admission for sepsis, felt to be secondary to C. difficile, with his hospital course complicated by a GI bleed secondary to a fundic ulcer, rehospitalized one month prior to admission with an altered mental status and hypoxia, with source unclear, but with the development of a multilobar pneumonia on CT scan, treated with Vancomycin and Ceftazidime for 4 days and discharged on Bactrim for 3 more days, with sputum culture only growing mixed sagar, admitted early this morning after presenting to the emergency room because of a one-week history of increased shortness of breath, requiring more than his usual nightly 2 L of oxygen, and the more acute onset of a low-grade fever. On admission he was febrile to 100.3. Blood pressure was 78 /40. He was given 1 L of fluid and 1 dose each of Vancomycin and Ceftazidime. He has remained afebrile overnight and presently feels well with no complaints. Allergies/Medications Allergies: Coded Allergies: ibuprofen (UNKNOWN 01/18/17) Home Med List: Acetaminophen (Q-Pap) 325 MG TABLET 2 TAB PO Q4H PRN PAIN/TEMP>/100 (Reported ) Acetaminophen (Acephen) 650 MG SUPP.RECT 1 SUPP GA Q4H PRN PAIN/TEMP>100 ( Reported) Aspirin (Ecotrin*) 81 MG TABLET.DR 1 TAB PO DAILY HEART/BLOOD (Reported) Atorvastatin Calcium (Lipitor) 10 MG TABLET 1 TAB PO DAILY CHOLESTEROL ( Reported) Baclofen 10 MG TABLET 1 TAB PO DAILY spams (Reported) Bisacodyl 10 MG SUPP.RECT 1 SUP RC PRN CONSTIPATION (Reported) Cyanocobalamin (Vitamin B-12) (Vitamin B-12) 100 MCG TABLET 1 TAB PO DAILY SUPPLEMENT (Reported) Ergocalciferol (Vitamin D2) (Vitamin D2) 50,000 UNIT CAPSULE 1 CAP PO Q30D SUPPLEMENT (Reported) Furosemide (Lasix) 20 MG TABLET 1 TAB PO Q48 DIURETIC (Reported) Ipratropium/Albuterol Sulfate (Iprat-Albut 0.5-3(2.5) MG/3 Ml) 0.5 MG-3 MG (2.5 MG BASE)/3 ML AMPUL.NEB 1 VIAL INH TID RESPIRATORY (Reported) Levetiracetam (Keppra) 500 MG TABLET 1 TAB PO QAM seizures (Reported) Lisinopril (Zestril) 10 MG TABLET 1 TAB PO DAILY BP (Reported) Magnesium Hydroxide (Milk Of Magnesia) 400 MG/5 ML ORAL.SUSP 30 ML PO DAILY PRN CONSTIPATION (Reported) Melatonin 5 MG TABLET 1 TAB PO QHS SLEEP (Reported) Metformin HCl 500 MG TABLET 1 TAB PO BID DM (Reported) Mirtazapine 15 MG TABLET 0.5 TAB PO QHS UNKNOWN (Reported) Mometasone/Formoterol (Dulera 100 Mcg/5 Mcg Inhaler) 100 MCG-5 MCG/ACTUATION HFA.AER.AD 2 PUF INH BID RESPIRATORY (Reported) Multivitamin (Multi-Day Vitamins) 1 EACH TABLET 1 TAB PO DAILY SUPPLEMENT ( Reported) Na Phos,M-B/Na Phos,Di-Ba (Fleet Enema) 19 GRAM-7 GRAM/118 ML ENEMA 1 E RC DAILY PRN CONSTIPATION (Reported) [place]-3/Dha/Epa/Fish Oil (Fish Oil 1,000 MG Softgel) 1,000 MG (120 MG-180 MG) CAPSULE 1 CAP PO DAILY SUPPLEMENT (Reported) Omeprazole 20 MG CAPSULE.DR 1 CAP PO DAILY GI (Reported) Oxycodone HCl 10 MG TABLET 1 TAB PO Q8H PAIN (Reported) Protein Supplement (Promod) 946 ML LIQUID 30 ML PO TID SUPPLEMENT (Reported) Psyllium Husk (Metamucil) (Unknown Strength) CAPSULE 1 CAP PO DAILY SUPPLEMENT (Reported) Rivaroxaban (Xarelto) 20 MG TABLET 1 TAB PO DAILY Pumonary Embolism Saccharomyces Boulardii (Florastor) 250 MG CAPSULE 1 TAB PO QHS PROBIOTIC ( Reported) Tolterodine Tartrate (Detrol LA) 4 MG CAP.ER.24H 1 CAP PO DAILY BLADDER ( Reported) Trazodone HCl 50 MG TABLET 0.5 TAB PO Q12H PRN UNKNOWN (Reported) Past History Travel History Traveled to [place] past 21 day No Medical History Neurological: PARAPLEGIA STATUS POST SPINAL SHOCK POSTOP EENT: NONE Cardiovascular: CAD, hypertension, hyperlipidemia, ABDOMINAL ANEURYSM Respiratory: asthma, pulmonary embolism, pneumonia Gastrointestinal: GERD, upper GI bleed, C. difficile Hepatic: NONE Renal: neurogenic bladder, UTI Musculoskeletal: decubitis ulcer (OSTEOMYELITIS) Psychiatric: anxiety, depression Endocrine: DIABETES TYPE 2 Blood Disorders: NONE Cancer(s): prostate cancer PAYMENT POSTER/Reproductive: NONE History of MRSA: Yes History of VRE: Yes History of CDIFF: Yes Influenza Vaccine: 09/04/16 Surgical History Surgical History: CABG, AAA repair x2 once 2002, and 2013 status post diverting colostomy status post suprapubic cystostomy, status post pubic cystostomy, status post diverting colostomy Family History Relations & Conditions If Any: MOTHER FH: coronary artery disease FH: diabetes mellitus BROTHER FH: diabetes mellitus SISTER Psychosocial History Where Do You Live? [facility] Services at Home: Home Health Aide, Nursing Primary Language: Kyrgyz Smoking Status: Former Smoker Functional Ability ADLs Independent: eating. Needs Assist: dressing, toileting, bathing. Ambulation: non-ambulatory IADLs Needs Assist: shopping, housework, finances, food prep, telephone, transportation, medication admin. Review of Systems Review of Systems Cardiovascular: Reports: edema (both feet). Respiratory: Reports: cough (chronic). All Other Systems: Reviewed and Negative Exam & Diagnostic Data Last 24 Hrs of Vital Signs/I&O Vital Signs Date Time Temp Pulse Resp B/P B/P Pulse O2 O2 Flow FiO2 Mean Ox Delivery Rate 03/06 1234 98.8 94 20 84/40 96 Room Air 03/06 1003 98.2 80 20 108/60 96 Room Air 03/06 0755 97.5 83 20 125/60 95 Room Air 03/06 0629 97.4 84 20 125/59 97 Room Air 03/06 0538 97.5 89 20 107/53 97 Room Air 03/06 0430 97.7 87 20 121/57 95 Room Air 03/06 0315 98.8 90 20 115/52 94 Room Air 03/06 0209 99.3 93 20 96/49 95 Room Air 03/05 2357 100.3 110 20 78/40 93 Room Air Intake & Output 03/06 1600 03/06 0800 03/06 0000 Intake Total 1250 Output Total 180 Balance 1070 Intake, IV 1250 Output, Urine 180 Patient 162 lb 162 lb 162 lb Weight Weight Reported by Patient Measurement Method Physical Exam Other Physical Findings: He is awake and alert in no acute distress. MAXIMUM TEMPERATURE 100.3. Skin reveals no rash. HEENT exam is negative. Neck is supple with no adenopathy. Lungs are clear. Heart regular rhythm with a 1/6 systolic ejection murmur. Abdomen is soft, nontender with positive bowel sounds; colostomy with formed stool; suprapubic cystostomy site without inflammation. Back sacral and bilateral ischial decubiti mostly clean with exposed bone, with minimal necrosis , no surrounding erythema and no purulent drainage. Extremities stage II ulcer on the right heel; lateral aspect of the left calf and posterior right calf superficial ulcerations; 1+ edema both feet. Neuro paraplegia. Last 24 Hours of Lab Results: Laboratory Tests 03/06 03/06 0615 0600 Chemistry Lactic Acid Cancelled Hematology CBC w Diff NO MAN DIFF REQ WBC (4.8 - 10.8 /CUMM) 9.5 RBC (4.70 - 6.10 /CUMM) 2.88 L Hgb (14.0 - 18.0 G/DL) 7.5 L Hct (42 - 52 %) 23.2 L MCV (80.0 - 94.0 FL) 80.4 MCH (27.0 - 31.0 PG) 26.0 L RDW (11.5 - 14.5 %) 19.7 H Plt Count (130 - 400 /CUMM) 681 H MPV (7.4 - 10.4 FL) 6.9 L Gran % (42.2 - 75.2 %) 65.0 Lymphocytes % (20.5 - 51.1 %) 11.9 L Monocytes % (1.7 - 9.3 %) 19.8 H Eosinophils % (0 - 5 %) 2.7 Basophils % (0.0 - 2.0 %) 0.6 Absolute Granulocytes (1.4 - 6.5 /CUMM) 6.1 Absolute Lymphocytes (1.2 - 3.4 /CUMM) 1.1 L Absolute Monocytes (0.10 - 0.60 /CUMM) 1.9 H Absolute Eosinophils (0.0 - 0.7 /CUMM) 0.3 Absolute Basophils (0.0 - 0.2 /CUMM) 0.1 PUBS MCHC (33.0 - 37.0 G/DL) 32.3 L 03/06 03/06 0535 0314 Chemistry Sodium (137 - 145 mmol/L) 137 Potassium (3.5 - 5.1 mmol/L) 4.4 Chloride (98 - 107 mmol/L) 109 H Carbon Dioxide (22 - 30 mmol/L) 18 L Anion Gap (5 - 16) 10 BUN (9 - 20 mg/dL) 67 H Creatinine (0.7 - 1.2 mg/dL) 1.1 Estimated GFR (>60 ml/min) > 60 BUN/Creatinine Ratio (7 - 25 %) 60.9 H Lactic Acid (0.7 - 2.1 mmol/L) 0.9 Cancelled Hematology CBC w Diff NO MAN DIFF REQ WBC (4.8 - 10.8 /CUMM) 9.6 RBC (4.70 - 6.10 /CUMM) 2.70 L Hgb (14.0 - 18.0 G/DL) 6.9 *L Hct (42 - 52 %) 21.5 L MCV (80.0 - 94.0 FL) 79.6 L MCH (27.0 - 31.0 PG) 25.7 L RDW (11.5 - 14.5 %) 20.7 H Plt Count (130 - 400 /CUMM) 664 H MPV (7.4 - 10.4 FL) 6.6 L Gran % (42.2 - 75.2 %) 64.9 Lymphocytes % (20.5 - 51.1 %) 11.5 L Monocytes % (1.7 - 9.3 %) 19.7 H Eosinophils % (0 - 5 %) 3.3 Basophils % (0.0 - 2.0 %) 0.6 Absolute Granulocytes (1.4 - 6.5 /CUMM) 6.2 Absolute Lymphocytes (1.2 - 3.4 /CUMM) 1.1 L Absolute Monocytes (0.10 - 0.60 /CUMM) 1.9 H Absolute Eosinophils (0.0 - 0.7 /CUMM) 0.3 Absolute Basophils (0.0 - 0.2 /CUMM) 0.1 PUBS MCHC (33.0 - 37.0 G/DL) 32.3 L ESR Westergren (0 - 10 MM) 108 H 03/065 0105 Chemistry Sodium (137 - 145 mmol/L) 137 Potassium (3.5 - 5.1 mmol/L) 4.9 Chloride (98 - 107 mmol/L) 104 Carbon Dioxide (22 - 30 mmol/L) 20 L Anion Gap (5 - 16) 13 BUN (9 - 20 mg/dL) 70 H Creatinine (0.7 - 1.2 mg/dL) 1.3 H Estimated GFR (>60 ml/min) 55 L BUN/Creatinine Ratio (7 - 25 %) 53.8 H Glucose (65 - 99 mg/dL) 102 H Lactic Acid (0.7 - 2.1 mmol/L) 1.1 Calcium (8.4 - 10.2 mg/dL) 8.9 Total Bilirubin (0.2 - 1.3 mg/dL) 0.4 AST (17 - 59 U/L) 13 L ALT (21 - 72 U/L) 23 Alkaline Phosphatase (< 127 U/L) 136 H Troponin I (<0.11 ng/ml) < 0.01 Total Protein (6.3 - 8.2 g/dL) 7.1 Albumin (3.5 - 5.0 g/dL) 2.7 L Globulin (1.9 - 4.2 gm/dL) 4.4 H Albumin/Globulin Ratio (1.1 - 2.2 %) 0.6 L Hematology CBC w Diff NO MAN DIFF REQ WBC (4.8 - 10.8 /CUMM) 11.0 H RBC (4.70 - 6.10 /CUMM) 3.01 L Hgb (14.0 - 18.0 G/DL) 7.9 L Hct (42 - 52 %) 24.1 L MCV (80.0 - 94.0 FL) 79.9 L MCH (27.0 - 31.0 PG) 26.3 L RDW (11.5 - 14.5 %) 20.3 H Plt Count (130 - 400 /CUMM) 778 H MPV (7.4 - 10.4 FL) 6.5 L Gran % (42.2 - 75.2 %) 69.7 Lymphocytes % (20.5 - 51.1 %) 10.4 L Monocytes % (1.7 - 9.3 %) 17.4 H Eosinophils % (0 - 5 %) 2.1 Basophils % (0.0 - 2.0 %) 0.4 Absolute Granulocytes (1.4 - 6.5 /CUMM) 7.7 H Absolute Lymphocytes (1.2 - 3.4 /CUMM) 1.1 L Absolute Monocytes (0.10 - 0.60 /CUMM) 1.9 H Absolute Eosinophils (0.0 - 0.7 /CUMM) 0.2 Absolute Basophils (0.0 - 0.2 /CUMM) 0 PUBS MCHC (33.0 - 37.0 G/DL) 32.9 L Urines Urine Color (YEL,AMB,STR) YEL Urine Clarity (CLEAR) CLDY H Urine pH (5.0 - 8.0) 7.0 Ur Specific [place] (1.001 - 1.035) 1.015 Urine Protein (NEG,<30 MG/DL) 30 H Urine Ketones (NEG) NEG Urine Nitrite (NEG) NEG Urine Bilirubin (NEG) NEG Urine Urobilinogen (0.1 - 1.0 EU/dl) 0.2 Ur Leukocyte Esterase (NEG) LARGE H Ur Microscopic SEDIMENT EXAMINED Urine RBC (0 - 5 /HPF) 5-10 H Urine WBC (0 - 2 /HPF) > 75 H Urine Bacteria (NEG/NONE) MANY H Urine Mucus (FEW,NONE) FEW Micro UA Comment BUDDING YEAST H Urine Hemoglobin (NEG) MOD H Urine Glucose (N MG/DL) NEG Last 24 Hours of Perfecto Results: Blood cultures 2 March 06 pending Urine culture March 06 pending Diagnostic Data Recent Imaging Findings: Chest x-ray March 06, personally reviewed, reveals mild hazy opacities within the left mid lung, improved from the previous exam MRI of the lumbar spine reveals retrolisthesis of L1 on L2 and L2 on L3 similar to the previous study, with no acute changes. Assessment/Plan Assessment/Plan Impression: This is a 71-year-old man, shelter resident, with diabetes, coronary artery disease, pulmonary embolism, and paraplegia, with a chronic sacral decubitus and underlying osteomyelitis, for which he has been treated with multiple courses of antibiotics, status post a diverting colostomy and suprapubic cystostomy, hospitalized several times over the past few months, most recently for C. difficile and, subsequently, pneumonia, admitted early this morning with a one- week history of increased shortness of breath and more acute onset of low-grade fever, found to have a mild leukocytosis, worsening anemia and pyuria. I am not convinced that he has sepsis, given his rapid improvement and normal lactic acid. His H&H has decreased, raising concern for a recurrent GI bleed and this may need to be ruled out. It is difficult to rule out a urinary tract infection given his suprapubic catheter, and, given his pyuria, I expect he will have either bacteriuria or candiduria, but I suspect this represents colonization rather than a true infection. His decubiti are mostly clean and do not appear infected. He may have underlying chronic osteomyelitis, an MRI of the pelvis is pending, but this would not explain his acute presentation. The etiology of his dyspnea is unclear as he is oxygenating well now. A pulmonary embolism is possible, but he was on Xarelto prior to admission. Suggestion: 1. Stool guaiacs with further evaluation of a GI bleed if positive per Medicine 2. Would add a urine culture to his urinalysis 3. Follow-up the MRI of the pelvis 4. Attention to his right heel decubitus 5. Further management of his sacral and ischial decubiti per Plastic surgery 5. Urology evaluation at some point regarding his continued incontinence and suprapubic catheter leakage 6. Would follow off antibiotics Consult Acknowledgment - Thank you for your consult request.
[2017-03-06 15:02] VITALS: BP 102/58
--- NOTE | 2017-03-06 15:14 | MRI REPORT ---
EXAMINATION: MR PELVIS WITHOUT CONTRAST CLINICAL INFORMATION: Osteomyelitis. Decubitus ulcers. COMPARISON: CT abdomen and pelvis dated 01/25/[address] dated 10/09/2016. TECHNIQUE: MRI of the pelvis without contrast was obtained using routine sequences. FINDINGS: Large ischial decubitus ulcerations are present bilaterally, measuring roughly 6 x 5 cm in area on the left. These both extend to the depth of the underlying ischial tuberosities. The left ulceration is likely contiguous with a more shallow, generalized ulceration at the sacrum. The soft tissues overlying the sacrum are thinned which limits assessment of the area of the ulceration. No discrete fluid collections are identified. There is intramedullary edema signal and low T1 signal within the majority of the left ischium, sparing the subarticular portion of the posterior acetabulum and the superior margin of the ischium at the confluence with the ilium. This abnormal signal extends into the inferior pubic ramus and is consistent with osteomyelitis. There is significant soft tissue edema signal surrounding the inferior pubic ramus and the ischium with extension into the left adductor compartment musculature. No fluid collections. Similar, though less pronounced, changes of osteomyelitis are present in the right ischium in a similar distribution. There is also partial involvement of the right inferior pubic ramus as well. Surrounding soft tissue edema is present in this region, though less pronounced as compared to the contralateral side. The coccyx and distal margin of the sacrum are absent. The distal margin of the remaining sacrum (S4 segment) is edematous with low signal intensity on T1-weighted images, consistent with osteomyelitis. There is mild degenerative arthritis in both hips. No joint effusions. [id number] degenerative arthritis is present at the pubic symphysis with chronic changes of prior sacral fracture. Mild degenerative arthritis is also present in the SI joints. Degenerative disc disease present in the lower lumbar spine. There is an osseous hemangioma in the right aspect of the S1 segment. Musculature is diffusely atrophic and largely fatty replaced. A suprapubic catheter is present in the bladder. The bladder is thick-walled. The anterior wall of the bladder and urethra are ill-defined in the region of the pubic symphysis and a fistula in this region cannot be excluded. There is partial tearing of the adductor plate at the pubic symphysis, right side greater than left. IMPRESSION: 1. Large bilateral ischial decubitus ulcers extending to the depth of bone. Osteomyelitis of the bilateral ischii, left side greater than right, extends into the inferior pubic rami bilaterally. 2. Sacral decubitus ulceration with underlying focal osteomyelitis of the distal sacral margin (S4 segment). 3. Marked degenerative changes at the pubic symphysis with chronic changes of a right parasymphyseal fracture. 4. Thick-walled urinary bladder with a suprapubic catheter.
--- NOTE | 2017-03-06 16:43 | NUR ---
NURSING NOTE: PT ARRIVED TO FLOOR FROM ED AT 1245. PT A&O. WHEN PT ARRIVED TO FLOOR BP 84/40, PULSE 94. [facility] #[id number] AWARE AND 2 500ML NS BOLUSES ORDERED AND GIVEN. WHEN BOLUSES WERE COMPLETED BP 102/58, PULSE 98. DR. CALLES CAME TO BEDSIDE TO ASSESS MULTIPLE WOUNDS TO COCCYX, RIGHT AND LEFT HIP, RIGHT HEEL, AND LEFT OUTER LEG(SEE WOUND CARE NOTE/SKIN MAN. SUPAPUBIC TUBE IN PLACE, PT ALSO INC OF URINE. COLOSTOMY IN PLACE WITH SOFT BROWN STOOL. PT MANISH PO DIET. PT REFUSING ALPS AND FREQUENT REPOSITIONING, [facility][id number] AWARE. SIZE WIZE BED ORDERED FOR PT (PT REFUSING TO GO ON ANY OTHER SPECIALTY BED INCLUDING CLINITRON) PT RESTING COMFORTABLY IN BED AT PRESENT TIME. WILL CONTINUE TO MONITOR.
[2017-03-06 22:44] VITALS: BP 99/56
[2017-03-07 01:23] VITALS: BP 96/36
--- NOTE | 2017-03-07 07:08 | PN- Housestaff ---
Subjective Follow-up For: positive blood cultures chronic osteomyelitis Subjective: I saw and examined the patient today morning He is doing well today. offers no complaints. No overnight events like cough, shortness of breath, fever, chills, pain. Review of Systems Constitutional: Reports: see HPI. Comments: ROS negative except the above. Objective Last 24 Hrs of Vital Signs/I&O Vital Signs Date Time Temp Pulse Resp B/P B/P Pulse O2 O2 Flow FiO2 Mean Ox Delivery Rate 03/07 0123 99.0 80 20 96/36 94 Room Air 03/07 0000 Room Air 03/06 2244 97.9 87 18 99/56 94 Room Air 03/06 1614 Room Air 03/06 1502 97.8 98 18 102/58 94 Room Air Room Air 03/06 1234 98.8 94 20 84/40 96 Room Air 03/06 1003 98.2 80 20 108/60 96 Room Air 03/06 0755 97.5 83 20 125/60 95 Room Air Intake & Output 03/07 0800 03/07 0000 03/06 1600 Intake Total 900 1800 Output Total 800 300 Balance 100 1500 Intake, IV 1000 Intake, Oral 900 800 Output, Stool 200 100 Output, Urine 600 200 Patient 73.482 kg Weight Physical Exam General Appearance: Alert, Oriented X3, Cooperative Skin: No Rashes, sacral decubitus ulcers present HEENT: Atraumatic, PERRLA, EOMI Neck: Supple Cardiovascular: Normal S1, Normal S2, No Murmurs Lungs: Normal Air Movement, decreased breath sounds at bases Abdomen: Normal Bowel Sounds, Soft, No Tenderness Neurological: paraplegic with indwelling suprapubic catheter in place. Extremities: No Clubbing, No Cyanosis, No Edema Vascular: Normal Pulses, Pulses Symmetrical Current Medications: Current Medications Sig/Mey Start time Last Medication Dose Route Stop Time Status Admin Albuterol Sulfate 3 ML BID 03/06 2200 AC 03/06 INH 1905 Aspirin Buffered 81 MG DAILY 03/06 1000 AC 03/06 PO 1048 Atorvastatin Calcium 10 MG 1700 03/06 1700 AC 03/06 PO 1751 Baclofen 10 MG DAILY 03/06 1000 AC 03/06 PO 1048 Cyanocobalamin 1,000 MCG DAILY 03/06 1000 AC 03/06 PO 1048 Ipratropium [place] 2.5 ML BID 03/06 2200 AC 03/06 INH 1905 Ipratropium [place] 2.5 ML ONCE PRN 03/06 0430 AC INH Lactobacillus 1 CAP DAILY 03/06 1000 AC 03/06 Acidophilus PO 1048 Levetiracetam 500 MG QAM 03/06 1000 AC 03/06 PO 1048 Melatonin 5 MG AT BEDTIME 03/06 2200 AC 03/06 PO 2140 Mirtazapine 7.5 MG AT BEDTIME 03/06 2200 AC 03/06 PO 2140 Multivitamins 1 TAB DAILY 03/06 1000 AC 03/06 Therapeutic PO 1048 Omeprazole 20 MG DAILY 03/06 1000 AC 03/06 PO 1048 Oxybutynin Chloride 5 MG BID 03/06 1300 AC 03/06 PO 2140 Oxycodone HCl 10 MG Q8 03/06 0600 AC 03/07 PO 0659 Protein 2 PKT BID 03/06 1000 AC 03/06 PO 2140 Rivaroxaban 20 MG DAILY 03/06 1000 AC 03/06 PO 1048 Sodium Chloride 500 ML BOLUS ONE 03/06 1345 DC 03/06 IV 03/06 1444 1405 Sodium Chloride 500 ML BOLUS ONE 03/06 1245 DC 03/06 IV 03/06 1344 1250 Sodium Hypochlorite 1 HILARIA BID 03/06 2200 AC 03/06 TOP 2329 Tolterodine Tartrate 4 MG DAILY 03/06 1000 DC PO Trazodone HCl 25 MG Q12H PRN 03/06 0430 AC PO Last 24 Hrs of Lab/Perfecto Results Last 24 Hrs of Labs/Mics: Microbiology 03/07 1121 LOWER RESP: Respiratory Culture - COLB 03/07 1121 LOWER RESP: Gram Stain - COLB 03/07 1113 BLOOD: Blood Culture - RECD 03/07 1054 BLOOD: Blood Culture - RECD Assessment/Plan Assessment: Patient is a 71 YO M with Extensive PMH - significant includes paraplegia, suprapubic catheter, stage IV sacral ulcer, MRSA, VRE came to the [facility] with low grade fever, hypotension, shortness of breath. Admitted with suspicion for septic shock. Plan Bacteremia with chronic osteomyelitis as a possible source * Positive blood cultures with gram positive cocci in clusters - unknown source * Started on vancomycin 1gm Q12 for suspected MRSA - recent respirtory infection with MRSA * Repeating blood cultures today * Await sputum and urine cultures * Monitor vitals closely Chronic osteomyelitis * Pelvic MRI shows osteomyelitis on bilateral ischii * probably chronic given history of VRE recently * Plastic surgery evaluatd the patient, thought it was a clean ulcer * May need debridement eventually Suprapubic catheter in place - with a leak * Urology consulted * Increased oxybutynin to 10mg TID as per recommendations (via phone) * will have a look tomorrow chronic and stable conditions CAD s/p CABG: Aspirin 81mg, atrovastatin 10mg Seizures: keppra 500mg H/O PE: Xarelto 20mg Diabetes: Insulin sliding scale Anxiety/Depression: COPD: Albuterol and ipratropium inhalers HTN: antihypertensives on hold DVT prophylaxis * On xarelto Code status * Full code Problem List: 1. S/P CABG (coronary artery bypass graft) 2. S/P AAA (abdominal aortic aneurysm) repair 3. Septic shock 4. Hypotension Pain Ratin Pain Location: n/a Pain Goal: Pain 4 or less Pain Plan: tylenol prn Tomorrow's Labs & Rationales: cbc to monitor leukocytosis bep to monitor renal function
--- NOTE | 2017-03-07 07:21 | Discharge Summary ---
See Addendum Visit Information Visit Dates Admission Date: 03/06/17 Discharge Date: 03/14/17 Hospital Course Course Attending Physician: JEANNIE ANN MD Primary Care Physician: SLIM COLE MD Consulting Request: 1 Consulting Specialty: Infectious Disease Consulting Physician: Jeremiah Farmer MD Reason for Consult: osteomyelitis and bacteremia Consulting Request: 2 Consulting Specialty: Plastic Surgery Consulting Physician: MD Arpan Reason for Consult: chronic buttocks wounds Consulting Request: 3 Consulting Specialty: Urology Consulting Physician: Dr. Koch Reason for Consult: urine leakage Hospital Course: This is a 71-year-old man, care home resident, with diabetes, coronary artery disease, recently diagnosed with a pulmonary embolism and paraplegia following spinal shock after surgery for an aortic aneurysm 4 years prior to admission, status post placement of a suprapubic cystostomy and diverting colostomy over 3 months prior to admission, with underlying osteomyelitis treated with multiple courses of antibiotics, most recently 3 months prior to admission after he was hospitalized with Group G strep sepsis, with an ostectomy also performed at that time, treated with a ten-day course of Levaquin 4 weeks prior to admission for presumed pneumonia, hospitalized 3 weeks prior to admission with hypotension, tachycardia and hypoxia, felt to be secondary to sepsis from pneumonia, treated with broad-spectrum antibiotics with improvement, with MRSA isolated from the sputum, felt to be of unclear significance initially, but with his hospital course complicated by a GI bleed secondary to a fundic ulcer, persistent leukocytosis, thought possibly secondary to the MRSA, for which he was changed to IV Vancomycin, and with watery stools, with a C. difficile toxin negative but PCR positive, treated with oral Vancomycin with a slight drop in his white blood cell count, discharged to the rehabilitation facility on this medication, readmitted on February 02, just 4 days after discharge, with an altered mental status and hypoxia. On this presentation patient was found to be hypotensive but blood culture improved nicely with IV fluids. He was admitted to general medicine floor and we managed him for the following conditions. Chronic osteomyelitis Patient has had pelvic wounds for a while, given the delayed healing and the appearance of the wound we have suspected osteomyelitis of the underlying bone. Pelvic MRI shows osteomyelitis on bilateral ischii. He was followed closely by infectious disease knowledge management consultant Dr. Farmer and also reviewed by plastic surgeon Dr. Hauser. Given evidence of osteomyelitis the patient will benefit from debridement of the bone and post debridement reconstruction of the wound. Patient underwent debridement of left ischial wound, right ischial wound and sacral wound including ostectomies on 03/13/17. He should be continued on IV abx for a total of 4 weeks. Bacteremia with chronic osteomyelitis as a possible source On presentation the patient was hypotensive and had slightly elevated WBC of 11, 000. Blood culture on admission on both bottles grew MRSA and because of this the patient was started on IV vancomycin. Continue to improve well and maintained therapeutic range of vancomycin blood levels on the initial 2 tests. Given the protracted treatment for osteomyelitis the patient received a PICC line. Need to continue with IV vancomycin 1gm BID for a total of 6-8 weeks, for atleast upto april 24. Patient had an echocardiogram which did not show any evidence of leakage. On 03/13/17 - underwent debridement of ischial wounds by --> Follow up pathology report Repeat CBC, ESR, BUN/Cr, Vanco trough level every week - until completion of antibiotic course. Suprapubic catheter in place - with a leak Patient has a chronic indwelling suprapubic catheter that has been leaking even from previous admission. She was reviewed by urologist Dr. Koch who increased his oxybutynin to 10 mg 3 times a day with plans to observe for decrease in urine leakage after taking the medication for couple of days. Patient will need to continue to follow-up with Dr. Koch post discharge. chronic and stable conditions CAD s/p CABG: was continued on Aspirin 81mg, atrovastatin 10mg Seizures: keppra 500mg H/O PE: Xarelto 20mg Diabetes: Insulin sliding scale Anxiety/Depression: COPD: Albuterol and ipratropium inhalers HTN: On lisinopril 10mg, furosemide 20mg at home - holded in hosptal, continued at discharge. Full code status DVT ppx on Xarelto Allergies: Coded Allergies: ibuprofen (UNKNOWN 01/18/17) Significant Procedures: Pelvis MRI 1. Large bilateral ischial decubitus ulcers extending to the depth of bone. Osteomyelitis of the bilateral ischii, left side greater than right, extends into the inferior pubic rami bilaterally. 2. Sacral decubitus ulceration with underlying focal osteomyelitis of the distal sacral margin (S4 segment). 3. Marked degenerative changes at the pubic symphysis with chronic changes of a right parasymphyseal fracture. 4. Thick-walled urinary bladder with a suprapubic catheter. Echocardiogram Normal left ventricular ejection fraction visually estimated at >60 Mild mitral regurgitation. [id number]-[id number] aortic regurgitation. Mitral valve thickened. Diffuse thickening (sclerosis) of the aortic valve cusps without reduced excursion. Pertinent Lab Results: Laboratory Tests 03/11 03/10 03/09 0705 0515 2200 Chemistry Sodium (137 - 145 mmol/L) 136 L Potassium (3.5 - 5.1 mmol/L) 5.4 H Chloride (98 - 107 mmol/L) 104 Carbon Dioxide (22 - 30 mmol/L) 24 Anion Gap (5 - 16) 8 BUN (9 - 20 mg/dL) 33 H Creatinine (0.7 - 1.2 mg/dL) 0.7 Estimated GFR (>60 ml/min) > 60 BUN/Creatinine Ratio (7 - 25 %) 47.1 H Toxicology Vancomycin Trough (10.0 - 20.0 ug/mL) 19.5 Cancelled Disposition Summary Disposition Principal Diagnosis: MRSA bacteremia Ischial bone osteomyelitis Septic shock Additional Diagnosis: Diabetes mellitus Hypertension Anxiety Depression Coronary artery disease Discharge Disposition: SNF Discharge Instructions General Discharge Information Code Status: Full Code Patient's Diet: [employer] diet Patient's Activity: As tolerated Follow-Up Instructions/Appts: Please call and make a follow-up with your primary care physician within one week after discharge Please call and make a follow-up with her urologist Dr. Koch within 1 week after discharge Please follow up with Dr. Hauser for the wound. Continue antibiotics for a total of 6-8 weeks until april 24 atleast Medications at Discharge Discharge Medications: Continue taking these medications: Aspirin (Ecotrin*) 81 MG TABLET. 1 Tablet ORAL DAILY Comments: LAST GIVEN 03/14/17 @ 1000 Oxycodone HCl (Oxycodone HCl) 10 MG TABLET 1 Tablet ORAL Q8H Comments: Last Taken: 02/11/17 Time: 1400 Ergocalciferol (Vitamin D2) (Vitamin D2) 50,000 UNIT CAPSULE 1 Capsule ORAL ONCE A MONTH Comments: NOT GIVEN Mirtazapine (Mirtazapine) 15 MG TABLET 0.5 Tablet ORAL TAKE AT BEDTIME Comments: NOT GIVEN Atorvastatin Calcium (Lipitor) 10 MG TABLET 1 Tablet ORAL DAILY Comments: LAST GIVEN 03/13/17 @ 1700 Ipratropium/Albuterol Sulfate (Iprat-Albut 0.5-3(2.5) MG/3 Ml) 0.5 MG-3 MG (2.5 MG BASE)/3 ML AMPUL.NEB 1 VIAL Inhale through mouth THREE TIMES DAILY Comments: NOT GIVEN Levetiracetam (Keppra) 500 MG TABLET 1 Tablet ORAL Every Morning Comments: 03/14/17 @ 1000 Furosemide (Lasix) 20 MG TABLET 1 Tablet ORAL EVERY 48 HOURS (Every 2 days) Comments: Last Taken: 02/10/17 Time: 0930 Omeprazole (Omeprazole) 20 MG CAPSULE.DR 1 Capsule ORAL DAILY Comments: LAST GIVEN 03/14/17 @1000 Baclofen (Baclofen) 10 MG TABLET 1 Tablet ORAL DAILY Comments: LAST GIVEN 03/14/17 @ 1000 Multivitamin (Multi-Day Vitamins) 1 EACH TABLET 1 Tablet ORAL DAILY Comments: NOT GIVEN [place]-3/Dha/Epa/Fish Oil (Fish Oil 1,000 MG Softgel) 1,000 MG (120 MG-180 MG) CAPSULE 1 Capsule ORAL DAILY Comments: NOT GIVEN Saccharomyces Boulardii (Florastor) 250 MG CAPSULE 1 Tablet ORAL TAKE AT BEDTIME Comments: NOT GIVEN Metformin HCl (Metformin HCl) 500 MG TABLET 1 Tablet ORAL TWICE DAILY Comments: NOT GIVEN Mometasone/Formoterol (Dulera 100 Mcg/5 Mcg Inhaler) 100 MCG-5 MCG/ACTUATION HFA.AER.AD 2 Puff Inhale through mouth TWICE DAILY Comments: NOT GIVEN Cyanocobalamin (Vitamin B-12) (Vitamin B-12) 100 MCG TABLET 1 Tablet ORAL DAILY Comments: NOT GIVEN Psyllium Husk (Metamucil) (Unknown Strength) CAPSULE 1 Capsule ORAL DAILY Comments: NOT GIVEN Melatonin (Melatonin) 5 MG TABLET 1 Tablet ORAL TAKE AT BEDTIME Comments: LAST GIVEN 03/13/17 @ 2200 Bisacodyl (Bisacodyl) 10 MG SUPP.RECT 1 Suppository RECTAL as needed for CONSTIPATION Comments: NOT GIVEN Na Phos,M-B/Na Phos,Di-Ba (Fleet Enema) 19 GRAM-7 GRAM/118 ML ENEMA 1 Enema RECTAL DAILY as needed for CONSTIPATION Comments: NOT GIVEN Acetaminophen (Q-Pap) 325 MG TABLET 2 Tablet ORAL Q4H as needed for PAIN/TEMP>/100 Comments: Last Taken: 02/10/17 Time: 1530 Magnesium Hydroxide (Milk Of Magnesia) 400 MG/5 ML ORAL.SUSP 30 Milliliters ORAL DAILY as needed for CONSTIPATION Comments: NOT GIVEN Trazodone HCl (Trazodone HCl) 50 MG TABLET 0.5 Tablet ORAL Q12H as needed for UNKNOWN Comments: Last Taken: 01/26/17 Time: 22:16 Lisinopril (Zestril) 10 MG TABLET 1 Tablet ORAL DAILY Comments: NOT GIVEN Tolterodine Tartrate (Detrol LA) 4 MG CAP.ER.24H 1 Capsule ORAL DAILY Comments: NOT GIVEN Acetaminophen (Acephen) 650 MG SUPP.RECT 1 SUPPOSITORY RECTALLY Q4H as needed for PAIN/TEMP>100 Comments: NOT GIVEN Rivaroxaban (Xarelto) 20 MG TABLET 1 Tablet ORAL DAILY Qty = 30 Comments: LAST GIVEN 03/14/17 @ 1000 Protein Supplement (Promod) 946 ML LIQUID 30 Milliliters ORAL THREE TIMES DAILY Comments: NOT GIVEN Start taking the following new medications: Vancomycin/0.9 % Sod Chloride (Vancomycin 1 G/200ML-0.9% NaCl) 1 GRAM/200 ML FROZ.PIGGY 1,000 Milligram INTRAVEN EVERY 12 HOURS Qty = 88 No Refills Comments: LAST GIVEN 03/14/17 @ 0600 Copies To: RAFAL MULLIGAN,ZOLTAN; ARPAN MULLIGAN,SLIM [place]; JEANNIE ANN MD, MD Review Statement Documenting Attending: JEANNIE ANN MD
[2017-03-07 07:30] VITALS: BP 112/46
--- NOTE | 2017-03-07 09:32 | PN- Att Addend ---
Attending Addendum Attending Brief Note Patient has no complaints except for some lethargy. He denies fever or difficulty breathing or cough. General Appearance: Alert, No Acute Distress Skin: Wound VAC at decubitus with odor HEENT: PEERLA Neck: Supple, No JVD Cardiovascular: Regular Rate, Normal S1, Normal S2, No Murmurs Lungs: Decreased air entry at bases Abdomen: Normal Bowel Sounds, Soft, No Tenderness Extremities: No Clubbing, No Cyanosis, No Edema Assessment lumbosacral osteomyelitis confirmed on MRI. GPC in both bottles. Will start pt on daptomycin given history of enterococcus resistant to vancomycin. Urology eval for peristent catheter leak. Plan Begin daptomycin Follow cultures Urology eval for peristent catheter leak. Transfuse for hemoglobin less than 7 Continue other home medications DVT prophylaxis Current Medications Sig/Mey Start time Last Medication Dose Route Stop Time Status Admin Albuterol Sulfate 3 ML BID 03/06 2200 AC 03/06 INH 1905 Aspirin Buffered 81 MG DAILY 03/06 1000 AC 03/06 PO 1048 Atorvastatin Calcium 10 MG 1700 03/06 1700 AC 03/06 PO 1751 Baclofen 10 MG DAILY 03/06 1000 AC 03/06 PO 1048 Cyanocobalamin 1,000 MCG DAILY 03/06 1000 AC 03/06 PO 1048 Ipratropium Bogart 2.5 ML BID 03/06 2200 AC 03/06 INH 1905 Ipratropium Bogart 2.5 ML ONCE PRN 03/06 0430 AC INH Lactobacillus 1 CAP DAILY 03/06 1000 AC 03/06 Acidophilus PO 1048 Levetiracetam 500 MG QAM 03/06 1000 AC 03/06 PO 1048 Melatonin 5 MG AT BEDTIME 03/06 2200 AC 03/06 PO 2140 Mirtazapine 7.5 MG AT BEDTIME 03/06 2200 AC 03/06 PO 2140 Multivitamins 1 TAB DAILY 03/06 1000 AC 03/06 Therapeutic PO 1048 Omeprazole 20 MG DAILY 03/06 1000 AC 03/06 PO 1048 Oxybutynin Chloride 5 MG BID 03/06 1300 AC 03/06 PO 2140 Oxycodone HCl 10 MG Q8 03/06 0600 AC 03/07 PO 0659 Protein 2 PKT BID 03/06 1000 AC 03/06 PO 2140 Rivaroxaban 20 MG DAILY 03/06 1000 AC 03/06 PO 1048 Sodium Chloride 500 ML BOLUS ONE 03/06 1345 DC 03/06 IV 03/06 1444 1405 Sodium Chloride 500 ML BOLUS ONE 03/06 1245 DC 03/06 IV 03/06 1344 1250 Sodium Hypochlorite 1 HILARIA BID 03/06 2200 AC 03/06 TOP 2329 Tolterodine Tartrate 4 MG DAILY 03/06 1000 DC PO Trazodone HCl 25 MG Q12H PRN 03/06 0430 AC PO Vital Signs Date Time Temp Pulse Resp B/P B/P Pulse O2 O2 Flow FiO2 Mean Ox Delivery Rate 03/07 0730 97.7 69 18 112/46 95 Room Air 03/07 0123 99.0 80 20 96/36 94 Room Air 03/07 0000 Room Air 03/06 2244 97.9 87 18 99/56 94 Room Air 03/06 1614 Room Air 03/06 1502 97.8 98 18 102/58 94 Room Air Room Air 03/06 1234 98.8 94 20 84/40 96 Room Air 03/06 1003 98.2 80 20 108/60 96 Room Air
[2017-03-07 15:29] VITALS: BP 100/50
--- NOTE | 2017-03-07 17:35 | PN- Infect Dx ---
Subjective Subjective: Afebrile without complaints Objective Last 24 Hrs of Vital Signs/I&O Vital Signs Date Time Temp Pulse Resp B/P B/P Pulse O2 O2 Flow FiO2 Mean Ox Delivery Rate 03/07 1529 98.7 89 20 100/50 92 Room Air 03/07 1127 95 Nasal 3.0L Cannula 03/07 0730 97.7 69 18 112/46 95 Room Air 03/07 0123 99.0 80 20 96/36 94 Room Air 03/07 0000 Room Air 03/06 2244 97.9 87 18 99/56 94 Room Air Intake & Output 03/07 1600 03/07 0800 03/07 0000 Intake Total 600 100 900 Output Total 250 250 800 Balance 350 -150 100 Intake, IV 250 Intake, Oral 350 100 900 Output, Stool 50 200 Output, Urine 250 200 600 Physical Exam Other Physical Findings: He appears comfortable in no acute distress Lungs decreased breath sounds at the left base Heart regular rhythm with no murmur Abdomen is soft, positive bowel sounds; suprapubic catheter with no inflammation at the site Extremities no cyanosis, clubbing or edema Results Last 24 Hours of Lab Results: Laboratory Tests 03/06 03/06 0615 0600 Chemistry Lactic Acid Cancelled Hematology CBC w Diff NO MAN DIFF REQ WBC (4.8 - 10.8 /CUMM) 9.5 RBC (4.70 - 6.10 /CUMM) 2.88 L Hgb (14.0 - 18.0 G/DL) 7.5 L Hct (42 - 52 %) 23.2 L MCV (80.0 - 94.0 FL) 80.4 MCH (27.0 - 31.0 PG) 26.0 L RDW (11.5 - 14.5 %) 19.7 H Plt Count (130 - 400 /CUMM) 681 H MPV (7.4 - 10.4 FL) 6.9 L Gran % (42.2 - 75.2 %) 65.0 Lymphocytes % (20.5 - 51.1 %) 11.9 L Monocytes % (1.7 - 9.3 %) 19.8 H Eosinophils % (0 - 5 %) 2.7 Basophils % (0.0 - 2.0 %) 0.6 Absolute Granulocytes (1.4 - 6.5 /CUMM) 6.1 Absolute Lymphocytes (1.2 - 3.4 /CUMM) 1.1 L Absolute Monocytes (0.10 - 0.60 /CUMM) 1.9 H Absolute Eosinophils (0.0 - 0.7 /CUMM) 0.3 Absolute Basophils (0.0 - 0.2 /CUMM) 0.1 PUBS MCHC (33.0 - 37.0 G/DL) 32.3 L 03/06 05 0535 0314 Chemistry Sodium (137 - 145 mmol/L) 137 Potassium (3.5 - 5.1 mmol/L) 4.4 Chloride (98 - 107 mmol/L) 109 H Carbon Dioxide (22 - 30 mmol/L) 18 L Anion Gap (5 - 16) 10 BUN (9 - 20 mg/dL) 67 H Creatinine (0.7 - 1.2 mg/dL) 1.1 Estimated GFR (>60 ml/min) > 60 BUN/Creatinine Ratio (7 - 25 %) 60.9 H Lactic Acid (0.7 - 2.1 mmol/L) 0.9 Cancelled Creatine Kinase (55 - 170 U/L) 20 L Hematology CBC w Diff NO MAN DIFF REQ WBC (4.8 - 10.8 /CUMM) 9.6 RBC (4.70 - 6.10 /CUMM) 2.70 L Hgb (14.0 - 18.0 G/DL) 6.9 *L Hct (42 - 52 %) 21.5 L MCV (80.0 - 94.0 FL) 79.6 L MCH (27.0 - 31.0 PG) 25.7 L RDW (11.5 - 14.5 %) 20.7 H Plt Count (130 - 400 /CUMM) 664 H MPV (7.4 - 10.4 FL) 6.6 L Gran % (42.2 - 75.2 %) 64.9 Lymphocytes % (20.5 - 51.1 %) 11.5 L Monocytes % (1.7 - 9.3 %) 19.7 H Eosinophils % (0 - 5 %) 3.3 Basophils % (0.0 - 2.0 %) 0.6 Absolute Granulocytes (1.4 - 6.5 /CUMM) 6.2 Absolute Lymphocytes (1.2 - 3.4 /CUMM) 1.1 L Absolute Monocytes (0.10 - 0.60 /CUMM) 1.9 H Absolute Eosinophils (0.0 - 0.7 /CUMM) 0.3 Absolute Basophils (0.0 - 0.2 /CUMM) 0.1 PUBS MCHC (33.0 - 37.0 G/DL) 32.3 L ESR Westergren (0 - 10 MM) 108 H 03/06 03/06 0225 0105 Chemistry Sodium (137 - 145 mmol/L) 137 Potassium (3.5 - 5.1 mmol/L) 4.9 Chloride (98 - 107 mmol/L) 104 Carbon Dioxide (22 - 30 mmol/L) 20 L Anion Gap (5 - 16) 13 BUN (9 - 20 mg/dL) 70 H Creatinine (0.7 - 1.2 mg/dL) 1.3 H Estimated GFR (>60 ml/min) 55 L BUN/Creatinine Ratio (7 - 25 %) 53.8 H Glucose (65 - 99 mg/dL) 102 H Lactic Acid (0.7 - 2.1 mmol/L) 1.1 Calcium (8.4 - 10.2 mg/dL) 8.9 Total Bilirubin (0.2 - 1.3 mg/dL) 0.4 AST (17 - 59 U/L) 13 L ALT (21 - 72 U/L) 23 Alkaline Phosphatase (< 127 U/L) 136 H Troponin I (<0.11 ng/ml) < 0.01 Total Protein (6.3 - 8.2 g/dL) 7.1 Albumin (3.5 - 5.0 g/dL) 2.7 L Globulin (1.9 - 4.2 gm/dL) 4.4 H Albumin/Globulin Ratio (1.1 - 2.2 %) 0.6 L Hematology CBC w Diff NO MAN DIFF REQ WBC (4.8 - 10.8 /CUMM) 11.0 H RBC (4.70 - 6.10 /CUMM) 3.01 L Hgb (14.0 - 18.0 G/DL) 7.9 L Hct (42 - 52 %) 24.1 L MCV (80.0 - 94.0 FL) 79.9 L MCH (27.0 - 31.0 PG) 26.3 L RDW (11.5 - 14.5 %) 20.3 H Plt Count (130 - 400 /CUMM) 778 H MPV (7.4 - 10.4 FL) 6.5 L Gran % (42.2 - 75.2 %) 69.7 Lymphocytes % (20.5 - 51.1 %) 10.4 L Monocytes % (1.7 - 9.3 %) 17.4 H Eosinophils % (0 - 5 %) 2.1 Basophils % (0.0 - 2.0 %) 0.4 Absolute Granulocytes (1.4 - 6.5 /CUMM) 7.7 H Absolute Lymphocytes (1.2 - 3.4 /CUMM) 1.1 L Absolute Monocytes (0.10 - 0.60 /CUMM) 1.9 H Absolute Eosinophils (0.0 - 0.7 /CUMM) 0.2 Absolute Basophils (0.0 - 0.2 /CUMM) 0 PUBS MCHC (33.0 - 37.0 G/DL) 32.9 L Urines Urine Color (YEL,AMB,STR) YEL Urine Clarity (CLEAR) CLDY H Urine pH (5.0 - 8.0) 7.0 Ur Specific [place] (1.001 - 1.035) 1.015 Urine Protein (NEG,<30 MG/DL) 30 H Urine Ketones (NEG) NEG Urine Nitrite (NEG) NEG Urine Bilirubin (NEG) NEG Urine Urobilinogen (0.1 - 1.0 EU/dl) 0.2 Ur Leukocyte Esterase (NEG) LARGE H Ur Microscopic SEDIMENT EXAMINED Urine RBC (0 - 5 /HPF) 5-10 H Urine WBC (0 - 2 /HPF) > 75 H Urine Bacteria (NEG/NONE) MANY H Urine Mucus (FEW,NONE) FEW Micro UA Comment BUDDING YEAST H Urine Hemoglobin (NEG) MOD H Urine Glucose (N MG/DL) NEG Last 24 Hours of Perfecto Results: Blood cultures March 06 positive for gram-positive cocci in clusters Urine culture March 06 multiple colony types consistent with contamination Blood cultures March 07 pending Recent Imaging Studies: MRI of the pelvis March 06 reveals large bilateral ischial decubitus ulcers extending to the depth of bone, with osteomyelitis of the bilateral ischii, left greater than right, extending into the inferior pubic rami bilaterally; sacral decubitus ulcer with underlying focal osteomyelitis of the distal sacral margin Assessment/Plan Impression: Remains stable with temperatures and white blood cell count normal, but with blood cultures 2 reported positive today for gram-positive cocci in clusters, suggestive of Staph (? MRSA versus coag-negative Staph). Possible sources of infection include the bilateral ischial and sacral decubiti, given the MRI findings, which likely represent chronic osteomyelitis, as he has had multiple courses of antibiotics for osteomyelitis without healing of these decubiti, and the lungs, with evidence of pneumonia on chest x-ray and CT scan on his last admission, with isolation of MRSA from a sputum culture 2 admissions ago, though his respiratory status is stable and his chest x-ray has improved. The blood cultures could represent contaminants and will await further identification. Suggestion: 1. Follow-up results of the positive blood cultures 2. Plastic surgery reevaluation with Dr. Hauser if blood cultures grow Staph aureus 3. Attention to his right heel decubitus 4. Urology evaluation at some point regarding his continued incontinence and suprapubic catheter leakage 5. Continue Vancomycin pending above
--- NOTE | 2017-03-07 19:50 | Event Note ---
Event Note Event Note: 05/07/17 7:30 pm Called by the nursing staff to place in order to allow the suprapubic tube to be flushed as there was minimal to no urine output. Order was placed to flush the suprapubic tube. The patient has no abdominal pain or tenderness. No abdominal distention.
--- NOTE | 2017-03-07 23:09 | Event Note ---
Event Note Event Note: Was reported by the nurse that the patient was having no urine output from the suprapubic tube. The patient has no complaints. After flushing of the suprapubic tube did not reveal FreeFlow of urine by the nursing staff. The suprapubic tube was changed by me under sterile technique. There was free flow of water subsequent to the change. The nursing staff was instructed to monitor the patient for urinary output. Renal ultrasound was ordered in the morning, as well as a BMP.
[2017-03-07 23:17] VITALS: BP 100/50
--- NOTE | 2017-03-07 23:26 | NUR ---
NURSING NOTE; PT SUPRAPUBIC TUBE NOT DRAINING, SUPRAPUBIC TUBE FLUSHED AND BAG CHANGED, STILL NOT DRAINING, MD GURROLA AT BEDSIDE, MD GURROLA TOOK OUT SUPRAPUBIC TUBE AND INSERTED MULLINS CATHETER IN PLACE OF SUPRAPUBIC TUBE, DRAINING CLEAR YELLOW URINE, WILL CONT TO MONITOR
[2017-03-08 06:05] VITALS: BP 102/52
[2017-03-08 07:51] LABS: ABSOLUTE BASOPHIL COUNT 0.1 /CUMM (0.0-0.2); ABSOLUTE EOSINOPHIL COUNT 0.7 /CUMM (0.0-0.7); ABSOLUTE GRANULOCYTE CT 5.3 /CUMM (1.4-6.5); ABSOLUTE LYMPH COUNT 1.5 /CUMM (1.2-3.4); ABSOLUTE MONOCYTE COUNT 1.5 /CUMM (0.10-0.60); BASOPHIL % 0.6 % (0.0-2.0); EOSINOPHIL % 7.4 % (0-5); GRANULOCYTE % 58.6 % (42.2-75.2); MEAN CORPUSCULAR HGB 26.4 PG (27.0-31.0); MEAN CORPUSCULAR HGB CONC 32.7 G/DL (33.0-37.0); MEAN CORPUSCULAR VOLUME 80.7 FL (80.0-94.0); MEAN PLATELET VOLUME 6.9 FL (7.4-10.4); PLATELET COUNT 679 /CUMM (130-400); RBC DISTRIBUTION WIDTH 19.8 % (11.5-14.5); RED BLOOD CELL CT 2.85 /CUMM (4.70-6.10)
--- NOTE | 2017-03-08 08:28 | PN- Housestaff ---
Subjective Follow-up For: Chronic osteomyelitis MRSA bacteremia Subjective: I saw and examined the patient today morning Yesterday evening His suprapubic catheter was blocked and changed by . He is doing well. He was getting wounds dressed, appears clean. Overnight he slept well, no fever, chills. Review of Systems Constitutional: Reports: see HPI. Comments: ROS negative except the above. Objective Last 24 Hrs of Vital Signs/I&O Vital Signs Date Time Temp Pulse Resp B/P B/P Pulse O2 O2 Flow FiO2 Mean Ox Delivery Rate 03/08 0827 91 Room Air Room Air 03/08 0605 98.0 89 20 102/52 92 Room Air 03/07 2317 98.5 103 20 100/50 91 Room Air 03/07 1857 Room Air 03/07 1529 98.7 89 20 100/50 92 Room Air 03/07 1127 95 Nasal 3.0L Cannula Intake & Output 03/08 1600 03/08 0800 03/08 0000 Intake Total 240 800 Output Total 550 100 Balance -310 700 Intake, Oral 240 800 Output, Stool 100 Output, Urine 450 100 Physical Exam General Appearance: Alert, Oriented X3 Skin: No Rashes, chronic decubitus ulcers and wounds evident, very clean HEENT: Atraumatic, PERRLA, EOMI Neck: Supple Cardiovascular: Normal S1, Normal S2 Lungs: Clear to Auscultation, Normal Air Movement Abdomen: No Tenderness, colostomy bag in place Neurological: paraplegic - paralysed, atrophied legs. Able to move upper limbs. Extremities: No Clubbing, No Cyanosis Current Medications: Current Medications Sig/Mey Start time Last Medication Dose Route Stop Time Status Admin Albuterol Sulfate 3 ML BID 03/060 AC 03/08 INH 0821 Aspirin Buffered 81 MG DAILY 03/06 1000 AC 03/07 PO 1015 Atorvastatin Calcium 10 MG 1700 03/06 1700 AC 03/07 PO 1651 Baclofen 10 MG DAILY 03/06 1000 AC 03/07 PO 1016 Cyanocobalamin 1,000 MCG DAILY 03/06 1000 AC 03/07 PO 1016 Ipratropium [place] 2.5 ML BID 03/06 2200 AC 03/08 INH 0822 Ipratropium [place] 2.5 ML ONCE PRN 03/06 0430 AC INH Lactobacillus 1 CAP DAILY 03/06 1000 AC 03/07 Acidophilus PO 1016 Levetiracetam 500 MG QAM 03/06 1000 AC 03/07 PO 1016 Melatonin 5 MG AT BEDTIME 03/06 2200 AC 03/07 PO 2212 Mirtazapine 7.5 MG AT BEDTIME 03/06 2200 AC 03/07 PO 2212 Multivitamins 1 TAB DAILY 03/06 1000 AC 03/07 Therapeutic PO 1016 Omeprazole 20 MG DAILY 03/06 1000 AC 03/07 PO 1016 Oxybutynin Chloride 10 MG TID 03/07 1600 AC 03/07 PO 2212 Oxybutynin Chloride 5 MG BID 03/06 1300 DC 03/07 PO 1016 Oxycodone HCl 10 MG Q8 03/06 0600 AC 03/08 PO 0629 Protein 2 PKT BID 03/06 1000 AC 03/06 PO 2140 Rivaroxaban 20 MG DAILY 03/06 1000 AC 03/07 PO 1016 Sodium Hypochlorite 1 HILARIA BID 03/06 2200 AC 03/07 TOP 2212 Trazodone HCl 25 MG Q12H PRN 03/06 0430 AC PO Vancomycin HCl 1,000 MG Q12 03/07 1128 AC 03/07 Sodium Chloride 250 ML IV 2312 Last 24 Hrs of Lab/Perfecto Results Last 24 Hrs of Labs/Mics: Laboratory Tests 03/08/17 0606: BUN Cancelled, Creatinine Cancelled, BUN/Creatinine Ratio Cancelled 03/08/17 0606: Anion Gap 9, Estimated GFR > 60, BUN/Creatinine Ratio 42.9 H, CBC w Diff NO MAN DIFF REQ, RBC 2.85 L, MCV 80.7, MCH 26.4 L, RDW 19.8 H, MPV 6.9 L, Gran % 58.6, Lymphocytes % 16.6 L, Monocytes % 16.8 H, Eosinophils % 7.4 H, Basophils % 0.6, Absolute Granulocytes 5.3, Absolute Lymphocytes 1.5, Absolute Monocytes 1.5 H, Absolute Eosinophils 0.7, Absolute Basophils 0.1, PUBS MCHC 32.7 L, Random Vancomycin 15.0 Assessment/Plan Assessment: Patient is a 71 YO M with Extensive PMH - significant includes paraplegia, suprapubic catheter, stage IV sacral ulcer, MRSA, VRE came to the [facility] with low grade fever, hypotension, shortness of breath. Admitted with suspicion for septic shock. Plan Bacteremia with chronic osteomyelitis as a possible source * MRSA in blood cultures. * Started on vancomycin 1gm Q12 for suspected MRSA - recent respirtory cultures grew MRSA * Await sputum and urine cultures * Monitor vitals closely Chronic osteomyelitis * Pelvic MRI shows osteomyelitis on bilateral ischii * probably chronic given history of VRE recently * Plastic surgery evaluatd the patient, thought it was a clean ulcer * May need debridement eventually Suprapubic catheter in place - with a leak * Urology consulted * Increased oxybutynin to 10mg TID as per recommendations (via phone) chronic and stable conditions CAD s/p CABG: Aspirin 81mg, atrovastatin 10mg Seizures: keppra 500mg H/O PE: Xarelto 20mg Diabetes: Insulin sliding scale Anxiety/Depression: COPD: Albuterol and ipratropium inhalers HTN: antihypertensives on hold DVT prophylaxis * On xarelto Code status * Full code Problem List: 1. Septic shock 2. Bacteremia 3. Diabetes 4. Decubitus ulcer 5. Chronic osteomyelitis Pain Ratin Pain Location: n/a Pain Goal: Pain 4 or less Pain Plan: tylenol prn Tomorrow's Labs & Rationales: bep to monitor potassium levels
--- NOTE | 2017-03-08 09:34 | PN- Att Addend ---
Attending Addendum Attending Brief Note Patient has no complaints except for some lethargy. He denies fever or difficulty breathing or cough. Noted catheter obstruction requiring replacement of suprapubic yesterday. General Appearance: Alert, No Acute Distress Skin: Wound VAC at decubitus with odor HEENT: PEERLA Neck: Supple, No JVD Cardiovascular: Regular Rate, Normal S1, Normal S2, No Murmurs Lungs: Decreased air entry at bases Abdomen: Normal Bowel Sounds, Soft, No Tenderness Extremities: No Clubbing, No Cyanosis, No Edema Assessment Septic shock resolved. lumbosacral osteomyelitis confirmed on MRI. Now MRSA septicemia. Likely secondary to ischial and sacral osteomyelitis. Suspicion for MRSA pneumonia is low given no respiratory symptoms and improved finding of a chest x-ray. Plan Continue vancomycin Follow repeat blood cultures Plastic surgery evaluation for debridement Transfuse for hemoglobin less than 7 Continue other home medications DVT prophylaxis Current Medications Sig/Mey Start time Last Medication Dose Route Stop Time Status Admin Albuterol Sulfate 3 ML BID 03/06 2200 AC 03/08 INH 0821 Aspirin Buffered 81 MG DAILY 03/06 1000 AC 03/07 PO 1015 Atorvastatin Calcium 10 MG 1700 03/06 1700 AC 03/07 PO 1651 Baclofen 10 MG DAILY 03/06 1000 AC 03/07 PO 1016 Cyanocobalamin 1,000 MCG DAILY 03/06 1000 AC 03/07 PO 1016 Ipratropium [place] 2.5 ML BID 03/06 2200 AC 03/08 INH 0822 Ipratropium [place] 2.5 ML ONCE PRN 03/06 0430 AC INH Lactobacillus 1 CAP DAILY 03/06 1000 AC 03/07 Acidophilus PO 1016 Levetiracetam 500 MG QAM 03/06 1000 AC 03/07 PO 1016 Melatonin 5 MG AT BEDTIME 03/06 2200 AC 03/07 PO 2212 Mirtazapine 7.5 MG AT BEDTIME 03/06 2200 AC 03/07 PO 2212 Multivitamins 1 TAB DAILY 03/06 1000 AC 03/07 Therapeutic PO 1016 Omeprazole 20 MG DAILY 03/06 1000 AC 03/07 PO 1016 Oxybutynin Chloride 10 MG TID 03/07 1600 AC 03/07 PO 2212 Oxybutynin Chloride 5 MG BID 03/06 1300 DC 03/07 PO 1016 Oxycodone HCl 10 MG Q8 03/06 0600 AC 03/08 PO 0629 Protein 2 PKT BID 03/06 1000 AC 03/06 PO 2140 Rivaroxaban 20 MG DAILY 03/06 1000 AC 03/07 PO 1016 Sodium Hypochlorite 1 HILARIA BID 03/06 2200 AC 03/07 TOP 2212 Trazodone HCl 25 MG Q12H PRN 03/06 0430 AC PO Vancomycin HCl 1,000 MG Q12 03/07 1128 AC 03/07 Sodium Chloride 250 ML IV 2312 Laboratory Tests 03/08 03/08 0606 0606 Chemistry Sodium (137 - 145 mmol/L) 139 Potassium (3.5 - 5.1 mmol/L) 5.2 H Chloride (98 - 107 mmol/L) 106 Carbon Dioxide (22 - 30 mmol/L) 23 Anion Gap (5 - 16) 9 BUN (9 - 20 mg/dL) Cancelled 30 H Creatinine (0.7 - 1.2 mg/dL) Cancelled 0.7 Estimated GFR (>60 ml/min) > 60 BUN/Creatinine Ratio (7 - 25 %) Cancelled 42.9 H Hematology CBC w Diff NO MAN DIFF REQ WBC (4.8 - 10.8 /CUMM) 9.0 RBC (4.70 - 6.10 /CUMM) 2.85 L Hgb (14.0 - 18.0 G/DL) 7.5 L Hct (42 - 52 %) 23.0 L MCV (80.0 - 94.0 FL) 80.7 MCH (27.0 - 31.0 PG) 26.4 L RDW (11.5 - 14.5 %) 19.8 H Plt Count (130 - 400 /CUMM) 679 H MPV (7.4 - 10.4 FL) 6.9 L Gran % (42.2 - 75.2 %) 58.6 Lymphocytes % (20.5 - 51.1 %) 16.6 L Monocytes % (1.7 - 9.3 %) 16.8 H Eosinophils % (0 - 5 %) 7.4 H Basophils % (0.0 - 2.0 %) 0.6 Absolute Granulocytes (1.4 - 6.5 /CUMM) 5.3 Absolute Lymphocytes (1.2 - 3.4 /CUMM) 1.5 Absolute Monocytes (0.10 - 0.60 /CUMM) 1.5 H Absolute Eosinophils (0.0 - 0.7 /CUMM) 0.7 Absolute Basophils (0.0 - 0.2 /CUMM) 0.1 PUBS MCHC (33.0 - 37.0 G/DL) 32.7 L Toxicology Random Vancomycin (ug/ml) 15.0 Vital Signs Date Time Temp Pulse Resp B/P B/P Pulse O2 O2 Flow FiO2 Mean Ox Delivery Rate 03/08 0827 91 Room Air Room Air 03/08 0605 98.0 89 20 102/52 92 Room Air 03/07 2317 98.5 103 20 100/50 91 Room Air 03/07 1857 Room Air 03/07 1529 98.7 89 20 100/50 92 Room Air 03/07 1127 95 Nasal 3.0L Cannula
--- NOTE | 2017-03-08 11:24 | PN- Infect Dx ---
Subjective Subjective: Afebrile. He notes mild dyspnea with his occasional cough, which is chronic. His suprapubic tube was changed yesterday after he was found to have no urine output. Objective Last 24 Hrs of Vital Signs/I&O Vital Signs Date Time Temp Pulse Resp B/P B/P Pulse O2 O2 Flow FiO2 Mean Ox Delivery Rate 03/08 0827 91 Room Air Room Air 03/08 0605 98.0 89 20 102/52 92 Room Air 03/07 2317 98.5 103 20 100/50 91 Room Air 03/07 1857 Room Air 03/07 1529 98.7 89 20 100/50 92 Room Air 03/07 1127 95 Nasal 3.0L Cannula Intake & Output 03/08 1600 03/08 0800 03/08 0000 Intake Total 240 800 Output Total 550 100 Balance -310 700 Intake, Oral 240 800 Output, Stool 100 Output, Urine 450 100 Physical Exam Other Physical Findings: He appears comfortable in no acute distress Lungs decreased breath sounds on the left; crackles at the right base Heart regular rhythm with no murmur Abdomen soft, with positive bowel sounds; suprapubic tube site with no inflammation Extremities edema of both feet Results Last 24 Hours of Lab Results: Laboratory Tests 03/08 03/08 0606 0606 Chemistry Sodium (137 - 145 mmol/L) 139 Potassium (3.5 - 5.1 mmol/L) 5.2 H Chloride (98 - 107 mmol/L) 106 Carbon Dioxide (22 - 30 mmol/L) 23 Anion Gap (5 - 16) 9 BUN (9 - 20 mg/dL) Cancelled 30 H Creatinine (0.7 - 1.2 mg/dL) Cancelled 0.7 Estimated GFR (>60 ml/min) > 60 BUN/Creatinine Ratio (7 - 25 %) Cancelled 42.9 H Hematology CBC w Diff NO MAN DIFF REQ WBC (4.8 - 10.8 /CUMM) 9.0 RBC (4.70 - 6.10 /CUMM) 2.85 L Hgb (14.0 - 18.0 G/DL) 7.5 L Hct (42 - 52 %) 23.0 L MCV (80.0 - 94.0 FL) 80.7 MCH (27.0 - 31.0 PG) 26.4 L RDW (11.5 - 14.5 %) 19.8 H Plt Count (130 - 400 /CUMM) 679 H MPV (7.4 - 10.4 FL) 6.9 L Gran % (42.2 - 75.2 %) 58.6 Lymphocytes % (20.5 - 51.1 %) 16.6 L Monocytes % (1.7 - 9.3 %) 16.8 H Eosinophils % (0 - 5 %) 7.4 H Basophils % (0.0 - 2.0 %) 0.6 Absolute Granulocytes (1.4 - 6.5 /CUMM) 5.3 Absolute Lymphocytes (1.2 - 3.4 /CUMM) 1.5 Absolute Monocytes (0.10 - 0.60 /CUMM) 1.5 H Absolute Eosinophils (0.0 - 0.7 /CUMM) 0.7 Absolute Basophils (0.0 - 0.2 /CUMM) 0.1 PUBS MCHC (33.0 - 37.0 G/DL) 32.7 L Toxicology Random Vancomycin (ug/ml) 15.0 Last 24 Hours of Perfecto Results: Blood cultures March 06 positive for MRSA Blood cultures March 07 negative so far Assessment/Plan Impression: MRSA bacteremia, most likely secondary to the bilateral ischial and sacral decubiti, given the MRI findings, which have been reviewed with Radiology, who feels that this does represent an acute process superimposed on a more chronic one. A pulmonary source is possible, with the recent isolation of MRSA from the sputum and findings of pneumonia on his chest x-ray and CT scan from one month ago, though his respiratory status appears to be stable and chest x-ray has improved. His temperatures and white blood cell count remain normal, now on Vancomycin for his bacteremia. Suggestion: 1. Plastic surgery reevaluation with Dr. Hauser for debridement of the sacrum and ischii 2. Attention to his right heel decubitus 3. Echocardiogram 4. Continue Vancomycin
--- NOTE | 2017-03-08 12:45 | Cons- Plastic Surgery ---
General Information and HPI Consulting Request Date of Consult: 03/06/17 Requested By: JEANNIE ANN MD Reason for Consult: Chronic wounds secondary to paraplegia and pressure Source of Information: patient, old records, dr campo History of Present Illness: Patient well known to me. Has multiple hospital admissions to the lung and urinary issues. Stable chronic buttock wounds. Possibility of having flap reconstruction the patient constantly has medical issues that complicate his recovery. Evaluation is requested regarding the buttock wounds. Patient has no symptoms related to the area. Allergies/Medications Allergies: Coded Allergies: ibuprofen (UNKNOWN 01/18/17) Home Med List: Acetaminophen (Q-Pap) 325 MG TABLET 2 TAB PO Q4H PRN PAIN/TEMP>/100 (Reported ) Acetaminophen (Acephen) 650 MG SUPP.RECT 1 SUPP TN Q4H PRN PAIN/TEMP>100 ( Reported) Aspirin (Ecotrin*) 81 MG TABLET.DR 1 TAB PO DAILY HEART/BLOOD (Reported) Atorvastatin Calcium (Lipitor) 10 MG TABLET 1 TAB PO DAILY CHOLESTEROL ( Reported) Baclofen 10 MG TABLET 1 TAB PO DAILY spams (Reported) Bisacodyl 10 MG SUPP.RECT 1 SUP RC PRN CONSTIPATION (Reported) Cyanocobalamin (Vitamin B-12) (Vitamin B-12) 100 MCG TABLET 1 TAB PO DAILY SUPPLEMENT (Reported) Ergocalciferol (Vitamin D2) (Vitamin D2) 50,000 UNIT CAPSULE 1 CAP PO Q30D SUPPLEMENT (Reported) Furosemide (Lasix) 20 MG TABLET 1 TAB PO Q48 DIURETIC (Reported) Ipratropium/Albuterol Sulfate (Iprat-Albut 0.5-3(2.5) MG/3 Ml) 0.5 MG-3 MG (2.5 MG BASE)/3 ML AMPUL.NEB 1 VIAL INH TID RESPIRATORY (Reported) Levetiracetam (Keppra) 500 MG TABLET 1 TAB PO QAM seizures (Reported) Lisinopril (Zestril) 10 MG TABLET 1 TAB PO DAILY BP (Reported) Magnesium Hydroxide (Milk Of Magnesia) 400 MG/5 ML ORAL.SUSP 30 ML PO DAILY PRN CONSTIPATION (Reported) Melatonin 5 MG TABLET 1 TAB PO QHS SLEEP (Reported) Metformin HCl 500 MG TABLET 1 TAB PO BID DM (Reported) Mirtazapine 15 MG TABLET 0.5 TAB PO QHS UNKNOWN (Reported) Mometasone/Formoterol (Dulera 100 Mcg/5 Mcg Inhaler) 100 MCG-5 MCG/ACTUATION HFA.AER.AD 2 PUF INH BID RESPIRATORY (Reported) Multivitamin (Multi-Day Vitamins) 1 EACH TABLET 1 TAB PO DAILY SUPPLEMENT ( Reported) Na Phos,M-B/Na Phos,Di-Ba (Fleet Enema) 19 GRAM-7 GRAM/118 ML ENEMA 1 E RC DAILY PRN CONSTIPATION (Reported) [place]-3/Dha/Epa/Fish Oil (Fish Oil 1,000 MG Softgel) 1,000 MG (120 MG-180 MG) CAPSULE 1 CAP PO DAILY SUPPLEMENT (Reported) Omeprazole 20 MG CAPSULE.DR 1 CAP PO DAILY GI (Reported) Oxycodone HCl 10 MG TABLET 1 TAB PO Q8H PAIN (Reported) Protein Supplement (Promod) 946 ML LIQUID 30 ML PO TID SUPPLEMENT (Reported) Psyllium Husk (Metamucil) (Unknown Strength) CAPSULE 1 CAP PO DAILY SUPPLEMENT (Reported) Rivaroxaban (Xarelto) 20 MG TABLET 1 TAB PO DAILY Pumonary Embolism Saccharomyces Boulardii (Florastor) 250 MG CAPSULE 1 TAB PO QHS PROBIOTIC ( Reported) Tolterodine Tartrate (Detrol LA) 4 MG CAP.ER.24H 1 CAP PO DAILY BLADDER ( Reported) Trazodone HCl 50 MG TABLET 0.5 TAB PO Q12H PRN UNKNOWN (Reported) Past History Medical History Neurological: PARAPLEGIA STATUS POST SPINAL SHOCK POSTOP EENT: NONE Cardiovascular: CAD, hypertension, hyperlipidemia, ABDOMINAL ANEURYSM Respiratory: asthma, pulmonary embolism, pneumonia Gastrointestinal: GERD, upper GI bleed, C. 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 [facility] Facility Services at Home: Home Health Aide, Nursing Primary Language: Salvadorean Smoking Status: Former Smoker Functional Ability ADLs Independent: eating. Needs Assist: dressing, toileting, bathing. Ambulation: non-ambulatory IADLs Needs Assist: shopping, housework, finances, food prep, telephone, transportation, medication admin. Review of Systems Review of Systems: All other systems negative. Exam & Diagnostic Data Vital Signs and I&O Vital Signs Date Time Temp Pulse Resp B/P B/P Pulse O2 O2 Flow FiO2 Mean Ox Delivery Rate 03/08 0827 91 Room Air Room Air 03/08 0605 98.0 89 20 102/52 92 Room Air 03/07 2317 98.5 103 20 100/50 91 Room Air 03/07 1857 Room Air 03/07 1529 98.7 89 20 100/50 92 Room Air Intake & Output 03/08 1600 03/08 0800 03/08 0000 03/07 1600 03/07 0800 03/07 0000 Intake Total 240 800 600 100 900 Output Total 50 550 100 250 250 800 Balance -50 -310 700 350 -150 100 Intake, IV 250 Intake, Oral 240 800 350 100 900 Output, Stool 50 100 50 200 Output, Urine 450 100 250 200 600 Physical Exam: Physical exam shows the following abnormalities. As a large contiguous injury of the left buttock from issue to sacrum and her right issue wound. All wounds appear to be pink with minimal necrosis. There is exposed cortical bony surfaces with some spiculation possibly secondary to avascularity or status post debridement. Assessment/Plan Assessment/Plan Chronic stable buttock wounds. Have some period of time that he remained medically stable without changes requiring evaluation at Hospital can consider a flap surgery for closure of at least 1 buttock wound. Patient would require multiple surgeries. Would be very helpful if the nutritional evaluation was performed larger wounds with flap surgery be in his best interest. Patient will have difficulty positioning himself or being positioned off of the flap surgical site without the help of [place] beds which are mostly unavailable. We will continue with wound care per Dr. Guzman Consult Acknowledgment - Thank you for your consult request.
[2017-03-08 14:45] VITALS: BP 120/56
--- NOTE | 2017-03-08 14:46 | Cons- Urology ---
General Information and HPI Consulting Request Date of Consult: 03/08/17 Requested By: JEANNIE ANN MD Reason for Consult: urinary incontinence Source of Information: patient, old records Exam Limitations: no limitations History of Present Illness: 71/M with PMH of colostomy, CAD sp CABG, AAA sp repair X 2 times wtih complications resulting in paraplegia with stage IV sacral decibutis wound, SPT with removal of zheng catheter in penis, HTN, HLD, anxiety, depression, DM, prostate cancer, and PE on xarelto was sent in to [facility] ED due to increased temperature of 100.6 and [facility] Patiently is currently bedbound due to history of paralysis and a resident at [facility]. He continues to have urinary incontinence from his SPT site as well as the penis. He has an iatrogenic hypospadias penis with incontinence. He was on oxybutynin. Allergies/Medications Allergies: Coded Allergies: ibuprofen (UNKNOWN 01/18/17) Home Med List: Acetaminophen (Q-Pap) 325 MG TABLET 2 TAB PO Q4H PRN PAIN/TEMP>/100 (Reported ) Acetaminophen (Acephen) 650 MG SUPP.RECT 1 SUPP OH Q4H PRN PAIN/TEMP>100 ( Reported) Aspirin (Ecotrin*) 81 MG TABLET.DR 1 TAB PO DAILY HEART/BLOOD (Reported) Atorvastatin Calcium (Lipitor) 10 MG TABLET 1 TAB PO DAILY CHOLESTEROL ( Reported) Baclofen 10 MG TABLET 1 TAB PO DAILY spams (Reported) Bisacodyl 10 MG SUPP.RECT 1 SUP RC PRN CONSTIPATION (Reported) Cyanocobalamin (Vitamin B-12) (Vitamin B-12) 100 MCG TABLET 1 TAB PO DAILY SUPPLEMENT (Reported) Ergocalciferol (Vitamin D2) (Vitamin D2) 50,000 UNIT CAPSULE 1 CAP PO Q30D SUPPLEMENT (Reported) Furosemide (Lasix) 20 MG TABLET 1 TAB PO Q48 DIURETIC (Reported) Ipratropium/Albuterol Sulfate (Iprat-Albut 0.5-3(2.5) MG/3 Ml) 0.5 MG-3 MG (2.5 MG BASE)/3 ML AMPUL.NEB 1 VIAL INH TID RESPIRATORY (Reported) Levetiracetam (Keppra) 500 MG TABLET 1 TAB PO QAM seizures (Reported) Lisinopril (Zestril) 10 MG TABLET 1 TAB PO DAILY BP (Reported) Magnesium Hydroxide (Milk Of Magnesia) 400 MG/5 ML ORAL.SUSP 30 ML PO DAILY PRN CONSTIPATION (Reported) Melatonin 5 MG TABLET 1 TAB PO QHS SLEEP (Reported) Metformin HCl 500 MG TABLET 1 TAB PO BID DM (Reported) Mirtazapine 15 MG TABLET 0.5 TAB PO QHS UNKNOWN (Reported) Mometasone/Formoterol (Dulera 100 Mcg/5 Mcg Inhaler) 100 MCG-5 MCG/ACTUATION HFA.AER.AD 2 PUF INH BID RESPIRATORY (Reported) Multivitamin (Multi-Day Vitamins) 1 EACH TABLET 1 TAB PO DAILY SUPPLEMENT ( Reported) Na Phos,M-B/Na Phos,Di-Ba (Fleet Enema) 19 GRAM-7 GRAM/118 ML ENEMA 1 E RC DAILY PRN CONSTIPATION (Reported) [place]-3/Dha/Epa/Fish Oil (Fish Oil 1,000 MG Softgel) 1,000 MG (120 MG-180 MG) CAPSULE 1 CAP PO DAILY SUPPLEMENT (Reported) Omeprazole 20 MG CAPSULE.DR 1 CAP PO DAILY GI (Reported) Oxycodone HCl 10 MG TABLET 1 TAB PO Q8H PAIN (Reported) Protein Supplement (Promod) 946 ML LIQUID 30 ML PO TID SUPPLEMENT (Reported) Psyllium Husk (Metamucil) (Unknown Strength) CAPSULE 1 CAP PO DAILY SUPPLEMENT (Reported) Rivaroxaban (Xarelto) 20 MG TABLET 1 TAB PO DAILY Pumonary Embolism Saccharomyces Boulardii (Florastor) 250 MG CAPSULE 1 TAB PO QHS PROBIOTIC ( Reported) Tolterodine Tartrate (Detrol LA) 4 MG CAP.ER.24H 1 CAP PO DAILY BLADDER ( Reported) Trazodone HCl 50 MG TABLET 0.5 TAB PO Q12H PRN UNKNOWN (Reported) Current Medications: Current Medications Sig/Mey Start time Last Medication Dose Route Stop Time Status Admin Albuterol Sulfate 3 ML BID 03/06 2200 AC 03/08 INH 0821 Aspirin Buffered 81 MG DAILY 03/06 1000 AC 03/08 PO 0955 Atorvastatin Calcium 10 MG 1700 03/06 1700 AC 03/07 PO 1651 Baclofen 10 MG DAILY 03/06 1000 AC 03/08 PO 0954 Cyanocobalamin 1,000 MCG DAILY 03/06 1000 AC 03/08 PO 0954 Ipratropium [place] 2.5 ML BID 03/06 2200 AC 03/08 INH 0822 Ipratropium [place] 2.5 ML ONCE PRN 03/06 0430 AC INH Lactobacillus 1 CAP DAILY 03/06 1000 AC 03/08 Acidophilus PO 0954 Levetiracetam 500 MG QAM 03/06 1000 AC 03/08 PO 0954 Melatonin 5 MG AT BEDTIME 03/06 2200 AC 03/07 PO 2212 Mirtazapine 7.5 MG AT BEDTIME 03/06 2200 AC 03/07 PO 2212 Multivitamins 1 TAB DAILY 03/06 1000 AC 03/08 Therapeutic PO 0954 Omeprazole 20 MG DAILY 03/06 1000 AC 03/08 PO 0954 Oxybutynin Chloride 10 MG TID 03/07 1600 AC 03/08 PO 0955 Oxycodone HCl 10 MG Q8 03/06 0600 AC 03/08 PO 0629 Patient Medication 1 ED .STK-MED ONE 03/08 1359 DC Teaching ED 03/08 1400 Protein 2 PKT BID 03/06 1000 AC 03/06 PO 2140 Rivaroxaban 20 MG DAILY 03/06 1000 AC 03/08 PO 0954 Sodium Hypochlorite 1 HILARIA BID 03/06 2200 AC 03/08 TOP 0955 Trazodone HCl 25 MG Q12H PRN 03/06 0430 AC PO Vancomycin HCl 1,000 MG Q12 03/07 1128 AC 03/08 Sodium Chloride 250 ML IV 0955 Past History Medical History Neurological: PARAPLEGIA STATUS POST SPINAL SHOCK POSTOP EENT: NONE Cardiovascular: CAD, hypertension, hyperlipidemia, ABDOMINAL ANEURYSM Respiratory: asthma, pulmonary embolism, pneumonia Gastrointestinal: GERD, upper GI bleed, C. difficile Hepatic: NONE Renal: neurogenic bladder, UTI Musculoskeletal: decubitis ulcer (OSTEOMYELITIS) Psychiatric: anxiety, depression Endocrine: DIABETES TYPE 2 Blood Disorders: NONE Cancer(s): prostate cancer GIS ANALYST/Reproductive: NONE Surgical History Pertinent Surgical History: CABG, AAA repair x2 once 2002, and 2013 status post diverting colostomy status post suprapubic cystostomy status post pubic cystostomy status post diverting colostomy, SPT placement Family History Relations & Conditions If Any: MOTHER FH: coronary artery disease FH: diabetes mellitus BROTHER FH: diabetes mellitus SISTER Psychosocial History Where Do You Live? [facility] Facility Services at Home: Home Health Aide, Nursing Primary Language: Hong Konger Smoking Status: Former Smoker Functional Ability ADLs Independent: eating. Needs Assist: dressing, toileting, bathing. Ambulation: non-ambulatory IADLs Needs Assist: shopping, housework, finances, food prep, telephone, transportation, medication admin. Exam & Diagnostic Data Vital Signs and I&O Vital Signs Date Time Temp Pulse Resp B/P B/P Pulse O2 O2 Flow FiO2 Mean Ox Delivery Rate 03/08 0827 91 Room Air Room Air 03/08 0605 98.0 89 20 102/52 92 Room Air 03/07 2317 98.5 103 20 100/50 91 Room Air 03/07 1857 Room Air 03/07 1529 98.7 89 20 100/50 92 Room Air Intake & Output 03/08 1600 03/08 0800 03/08 0000 03/07 1600 03/07 0800 03/07 0000 Intake Total 240 800 600 100 900 Output Total 50 550 100 250 250 800 Balance -50 -310 700 350 -150 100 Intake, IV 250 Intake, Oral 240 800 350 100 900 Output, Stool 50 100 50 200 Output, Urine 450 100 250 200 600 Assessment/Plan Assessment/Plan 71yo male with multiple medical problems with a hx of paraplegia and sacral decubitus wound stable but nonhealing. He has urinary incontinence despite SPT from his penile hypospadic urethra. He needs to be on optimal oxybutynin 10mg po TID. If this is inadequate and continues to leak, would consider urethral closure in the OR. Given his bedbound state, the urine will continue to take the least resistent route and leak. Will FU once he has been on Oxybutynin 10mg po TID for a few days. Consult Acknowledgment - Thank you for your consult request.
--- NOTE | 2017-03-08 15:33 | ULTRASOUND REPORT ---
EXAMINATION: US RETROPERITONEAL COMPLETE (RENAL) CLINICAL INFORMATION: No urinary output from suprapubic tube. COMPARISON: CT of the abdomen and pelvis done on 01/25/2017 and renal ultrasound done on 01/21/2017. TECHNIQUE: Real-time imaging of the kidneys and bladder. FINDINGS: Technically very limited study due to patient's body habitus (paralyzed, has a colostomy bag as well as suprapubic tube). RIGHT KIDNEY: 12.1 x 6.0 x 6.3 cm (SAG x AP x TRV). The kidney is normal in size, contour, and echogenicity. Renal cortical thickness is normal. No calculi or hydronephrosis. There is a 3.9 x 2.8 x 2.1 cm avascular hypoechogenicity present associated with small echogenic nodule, most consistent with a complicated cyst. There are 2 additional cystic abnormalities identified associated with thin internal septations, one near the superior pole measures 2.2 x 1.6 x 1.4 and the second near the mid pole measures 1.6 x 1.3 x 1.5 cm. LEFT KIDNEY: Nonvisualized. The patient is known to have an atrophic left kidney on prior CT study. BLADDER: Nonvisualized. Patient has a suprapubic cystostomy tube. IMPRESSION: 1. Technically very limited study. 2. The right kidney appears normal in size, without evidence of any hydronephrosis and/or calculi. Multiple cystic abnormalities are incidentally noted, as described above. 3. Nonvisualized left kidney this is likely technical due to suboptimal evaluation. Patient is known to have an atrophic left kidney, seen on prior CT study dated 01/25/2017. 4. Nonvisualized urinary bladder, patient has a suprapubic cystostomy tube.
[2017-03-08 22:00] VITALS: BP 93/44
[2017-03-09 05:43] VITALS: BP 98/50
--- NOTE | 2017-03-09 08:47 | PN- Housestaff ---
ELTON MULLIGAN,DELANEY 03/09/17 0846: Subjective Follow-up For: MRSA bacteremia chrnoic osteomyelitis Subjective: I saw and examined the patient today morning He is doing much better, offers no concerns. No overnight events, remained afebrile. Review of Systems Constitutional: Reports: see HPI. Comments: ROS negative except the above. Objective Last 24 Hrs of Vital Signs/I&O Vital Signs Date Time Temp Pulse Resp B/P B/P Pulse O2 O2 Flow FiO2 Mean Ox Delivery Rate 03/09 0543 98.1 85 18 98/50 93 Room Air 03/08 2222 98.5 18 91 Room Air 03/08 220 93 93/44 03/08 1900 93 Room Air 03/08 1445 98.1 92 20 120/56 92 Room Air Intake & Output 03/09 1600 03/09 0800 03/09 0000 Intake Total 250 200 Output Total 825 900 Balance -575 -700 Intake, IV 10 200 Intake, Oral 240 Output, Stool 125 150 Output, Urine 700 750 Physical Exam General Appearance: Alert, Oriented X3, Cooperative, No Acute Distress Skin: No Rashes, No Breakdown, chronic decubitus wounds in the sacral region HEENT: Atraumatic, EOMI Neck: Supple Cardiovascular: Normal S1, Normal S2 Lungs: Clear to Auscultation, Normal Air Movement Abdomen: Normal Bowel Sounds, Soft, No Tenderness Neurological: paraplegic, atrophic lower extremities. upper extremities 5/5 strength Current Medications: Current Medications Sig/Mey Start time Last Medication Dose Route Stop Time Status Admin Albuterol Sulfate 3 ML BID 03/06 2200 AC 03/08 INH 1900 Aspirin Buffered 81 MG DAILY 03/06 1000 AC 03/08 PO 0955 Atorvastatin Calcium 10 MG 1700 03/06 1700 AC 03/08 PO 1710 Baclofen 10 MG DAILY 03/06 1000 AC 03/08 PO 0954 Cyanocobalamin 1,000 MCG DAILY 03/06 1000 AC 03/08 PO 0954 Ipratropium [place] 2.5 ML BID 03/06 2200 AC 03/08 INH 1900 Ipratropium [place] 2.5 ML ONCE PRN 03/06 0430 AC INH Lactobacillus 1 CAP DAILY 03/06 1000 AC 03/08 Acidophilus PO 0954 Levetiracetam 500 MG QAM 03/06 1000 AC 03/08 PO 0954 Melatonin 5 MG AT BEDTIME 03/06 2200 AC 03/08 PO 2115 Mirtazapine 7.5 MG AT BEDTIME 03/06 2200 AC 03/08 PO 211 Multivitamins 1 TAB DAILY 03/06 1000 AC 03/08 Therapeutic PO 0954 Omeprazole 20 MG DAILY 03/06 1000 AC 03/08 PO 0954 Oxybutynin Chloride 10 MG TID 03/07 1600 AC 03/08 PO 211 Oxycodone HCl 10 MG ONCE ONE 03/09 0330 DC 03/09 PO 03/09 0331 0341 Oxycodone HCl 10 MG Q8 03/06 0600 AC 03/08 PO 2115 Patient Medication 1 ED .STK-MED ONE 03/08 1359 DC Teaching ED 03/08 1400 Protein 2 PKT BID 03/06 1000 AC 03/06 PO 2140 Rivaroxaban 20 MG DAILY 03/06 1000 AC 03/08 PO 953 Sodium Hypochlorite 1 HILARIA BID 03/06 2200 AC 03/08 TOP 2117 Trazodone HCl 25 MG Q12H PRN 03/06 0430 AC PO Vancomycin HCl 1,000 MG Q12 03/07 1128 AC 03/08 Sodium Chloride 250 ML IV 2115 Assessment/Plan Assessment: Patient is a 71 YO M with Extensive PMH - significant includes paraplegia, suprapubic catheter, stage IV sacral ulcer, MRSA, VRE came to the [facility] ER with low grade fever, hypotension, shortness of breath. Admitted with suspicion for septic shock. Plan Bacteremia with chronic osteomyelitis as a possible source * MRSA in blood cultures. * Continue vancomycin 1gm Q12 IV - we will get a trough level with next dose * Await sputum and urine cultures * Monitor vitals closely Chronic osteomyelitis * Pelvic MRI shows osteomyelitis on bilateral ischii * probably chronic given history of VRE of bone recently * Plastic surgery evaluatd the patient, suggesting a flap surgery. We will discuss regarding debridement eventually. Suprapubic catheter in place - with a leak * Urology consulted * Increased oxybutynin to 10mg TID as per recommendations. chronic and stable conditions CAD s/p CABG: Aspirin 81mg, atrovastatin 10mg Seizures: keppra 500mg H/O PE: Xarelto 20mg Diabetes: Insulin sliding scale Anxiety/Depression: COPD: Albuterol and ipratropium inhalers HTN: antihypertensives on hold - On lisinopril 10mg, furosemide 20mg at home. DVT prophylaxis * On xarelto Code status * Full code Problem List: 1. Chronic osteomyelitis 2. Decubitus ulcer 3. Osteomyelitis 4. Bacteremia Pain Ratin Pain Location: n/a Pain Goal: Pain 4 or less Pain Plan: tylenol prn Tomorrow's Labs & Rationales: none ETHEL MULLIGAN,MEKA 03/09/17 1407: Objective Last 24 Hrs of Vital Signs/I&O Vital Signs Date Time Temp Pulse Resp B/P B/P Pulse O2 O2 Flow FiO2 Mean Ox Delivery Rate 03/09 0926 91 Room Air 03/09 0543 98.1 85 18 98/50 93 Room Air 03/08 2222 98.5 18 91 Room Air 03/08 2200 93 93/44 03/08 1900 93 Room Air 03/08 1445 98.1 92 20 120/56 92 Room Air Intake & Output 03/09 1600 03/09 0800 03/09 0000 Intake Total 250 200 Output Total 825 900 Balance -575 -700 Intake, IV 10 200 Intake, Oral 240 Output, Stool 125 150 Output, Urine 700 750 Attending MD Review Statement Attending Statement Attending MD Statement: examined this patient, agreed w/resident/PA/BUSINESS ACCOUNT EXECUTIVE, reviewed EMR data (avail), reviewed images, amended to note Attending Assessment/Plan: Mr. Peterson has no complaints today. He is afebrile with a stable physical exam. Follow-up blood cultures remain negative. We are continuing treatment of his pelvic osteomyelitis with intravenous vancomycin. He was seen in consultation by Dr. Koch of the urology service who adjusted his oxybutynin dose. We are continuing his other maintenance medications.
--- NOTE | 2017-03-09 12:38 | ECHOCARDIOGRAM REPORT ---
YOLANDA SUMMERS Age: 71 : 1945 Gender: M Exam Date: 03/08/2017 13:08 Exam Location: [address] [place] [address] Ht (in): 69 Wt (lb): 162 BSA: 1.90 BP: 102 / 52 Ordering Physician: DELANEY CONDE MD Referring Physician: DELANEY CONDE MD Technologist: David Sevilla [facility] Room Number: 211-1 Indications: INFECTIVE ENDOCARDITIS Rhythm: Sinus Technical Quality: Good FINDINGS Left Ventricle Normal size left ventricle. Normal left ventricular ejection fraction visually estimated at >60 %. No obvious regional wall motion abnormalities. Right Ventricle Normal right ventricular size and function. Right Atrium Normal right atrial size. Left Atrium Normal left atrial size. Mitral Valve Mitral valve thickened. Mild mitral regurgitation. Aortic Valve Diffuse thickening (sclerosis) of the aortic valve cusps without reduced excursion. Japo-nz-rdhuyvyt aortic regurgitation. Tricuspid Valve Tricuspid valve not well visualized, grossly normal. Trace tricuspid regurgitation. Pulmonic Valve Pulmonic valve not well visualized, grossly normal. Pericardium No pericardial effusion. Great Vessels Normal size aortic root. CONCLUSIONS Normal left ventricular ejection fraction visually estimated at >60 Mild mitral regurgitation. Tspm-[id number] aortic regurgitation. Mitral valve thickened. Diffuse thickening (sclerosis) of the aortic valve cusps without reduced excursion. Harlan Cárdenas M.D. (Electronically Signed) Final Date: 09 Mar 2017 12:37 MEASUREMENTS (Male / Female) Normal Values 2D ECHO LV Diastolic Diameter PLAX 5.3 cm 4.2 - 5.9 / 3.9 - 5.3 cm LV Systolic Diameter PLAX 3.3 cm 2.1 - 4.0 cm LV Fractional Shortening PLAX 37.7 % 25 - 46 % LV Ejection Fraction 2D Teich 67.4 % IVS Diastolic Thickness 1.5 cm LVPW Diastolic Thickness 1.3 cm LV Relative Wall Thickness 0.5 RV Internal Dim ED PLAX 3.1 cm 1.9 - 3.8 cm LVOT Diameter 2.3 cm Aortic Root Diameter 3.5 cm LA Systolic Diameter LX 3.2 cm 3.0 - 4.0 / 2.7 - 3.8 cm LA Volume 77.0 cm 18 - 58 / 22 - 52 cm Ascending Aorta Diameter 3.4 cm DOPPLER AV Peak Velocity 187.0 cm/s AV Peak Gradient 14.0 mmHg AV Mean Velocity 124.0 cm/s AV Mean Gradient 7.0 mmHg AV Velocity Time Integral 35.3 cm AI Deceleration [place] 375.0 cm/s AI Peak Velocity 381.0 cm/s AI Pressure Half Time 298.0 ms AI Peak Gradient 58.1 mmHg LVOT Peak Velocity 126.0 cm/s LVOT Peak Gradient 6.4 mmHg LVOT Mean Velocity 73.0 cm/s LVOT Mean Gradient 3.0 mmHg LVOT Velocity Time Integral 24.6 cm LVOT Stroke Volume 102.2 cm AV Area Cont Eq vti 2.9 cm AV Area Cont Eq pk 2.8 cm MV Peak Velocity 130.0 cm/s MV Peak Gradient 6.8 mmHg MV Mean Velocity 71.2 cm/s MV Mean Gradient 2.0 mmHg Mitral E Point Velocity 75.0 cm/s Mitral A Point Velocity 67.1 cm/s Mitral E to A Ratio 1.1 MV PHT Velocity 129.0 cm/s MV Deceleration [place] 591.0 cm/s MV Pressure Half Time 65.5 ms MV Area PHT 3.4 cm MV Deceleration Time 250.0 ms PV Peak Velocity 97.9 cm/s PV Peak Gradient 3.8 mmHg PV Mean Velocity 71.8 cm/s PV Mean Gradient 2.0 mmHg PV Velocity Time Integral 19.2 cm
[2017-03-09 14:39] VITALS: BP 100/54
--- NOTE | 2017-03-09 14:43 | PN- Infect Dx ---
Subjective Subjective: Afebrile without complaints Objective Last 24 Hrs of Vital Signs/I&O Vital Signs Date Time Temp Pulse Resp B/P B/P Pulse O2 O2 Flow FiO2 Mean Ox Delivery Rate 03/09 0926 91 Room Air 03/09 0543 98.1 85 18 98/50 93 Room Air 03/08 2222 98.5 18 91 Room Air 03/08 2200 93 93/44 03/08 1900 93 Room Air 03/08 1445 98.1 92 20 120/56 92 Room Air Intake & Output 03/09 1600 03/09 0800 03/09 0000 Intake Total 250 200 Output Total 825 900 Balance -575 -700 Intake, IV 10 200 Intake, Oral 240 Output, Stool 125 150 Output, Urine 700 750 Physical Exam Other Physical Findings: He appears comfortable in no acute distress Lungs are clear Heart regular rhythm with no murmur Abdomen suprapubic catheter site with no inflammation, with good urine output Results Last 24 Hours of Lab Results: No labs from today Last 24 Hours of Perfecto Results: Blood cultures March 07 negative Recent Imaging Studies: Renal ultrasound March 08 reveals multiple renal cysts and a nonvisualized left kidney Assessment/Plan Impression: Stable, with temperatures and white blood cell count remaining normal, on Vancomycin Day 2 of treatment for MRSA bacteremia, most likely secondary to the bilateral ischial and sacral decubiti given the MRI findings, which are felt by Radiology to represent an acute process superimposed on a more chronic one. He will need debridement of these decubiti and have discussed this with Dr. Hauser who will schedule this. Apparently a Vancomycin random level was obtained yesterday, but this is of little value and he will require a trough level. Urology evaluation noted and appreciated. Suggestion: 1. Await debridement of the sacrum and ischii per Dr. Hauser 2. Echocardiogram 3. Vancomycin trough level with his next dose 4. Continue Vancomycin
--- NOTE | 2017-03-09 18:09 | NUR ---
A+O X 3. ON ROOM AIR. INSP/EXP WHEEZING NOTED. DENIES SHORTNESS OF BREATH VITAL SIGNS STABLE. DENIES CHEST PAIN. + PULSES. TRACE EDEMA TO BLE. BLE ARE ELEVATED OFF BED. DSG TO COCCYX IS C/D/I. BED BOUND AT BASELINE. PARAPLEGIC. NUMB FROM CHEST DOWN. MULLINS CARE AND COLOSTOMY CARE GIVEN. PINK STOMA NOTED. NO DISCOMFORT NOTED. WILL CONTINUE TO MONITOR NEW IV PLACED 1805. WILL CONTINUE TO MONITOR
[2017-03-09 21:28] VITALS: BP 110/53
[2017-03-10 06:32] VITALS: BP 120/52
--- NOTE | 2017-03-10 08:26 | PN- Housestaff ---
See Addendum Subjective Follow-up For: Chronic osteomyelitis MRSA bacteremia Subjective: I saw and examined the patient today morning He is doing well. At his baseline, reading bible. No concerns and overnight issues Review of Systems Constitutional: Reports: see HPI. Comments: ROS negative except the above. Objective Last 24 Hrs of Vital Signs/I&O Vital Signs Date Time Temp Pulse Resp B/P B/P Pulse O2 O2 Flow FiO2 Mean Ox Delivery Rate 03/10 0632 97.5 79 20 120/52 92 03/09 2128 98.3 96 20 110/53 93 Room Air 03/09 1915 92 Room Air 03/09 1600 93 Room Air 03/09 1439 98.2 86 20 100/54 93 03/09 0926 91 Room Air Intake & Output 03/10 1600 03/10 0800 03/10 0000 Intake Total 250 900 Output Total 200 1000 Balance 50 -100 Intake, IV 10 Intake, Oral 240 900 Output, Urine 200 1000 Physical Exam General Appearance: Alert, Oriented X3, Cooperative, No Acute Distress Skin: decubitus and sacral ulcers, colostomy bag in place HEENT: Atraumatic, PERRLA Cardiovascular: Normal S1, Normal S2 Lungs: Clear to Auscultation, Normal Air Movement Abdomen: Normal Bowel Sounds, Soft, No Tenderness Neurological: paraplegic, strength 0/5 lower extremitis and 5/5 in upper extremities Extremities: No Clubbing, No Cyanosis, No Edema Current Medications: Current Medications Sig/Mey Start time Last Medication Dose Route Stop Time Status Admin Albuterol Sulfate 3 ML BID 03/06 2200 AC 03/10 INH 0824 Aspirin Buffered 81 MG DAILY 03/06 1000 AC 03/09 PO 1144 Atorvastatin Calcium 10 MG 1700 03/06 1700 AC 03/09 PO 1617 Baclofen 10 MG DAILY 03/06 1000 AC 03/09 PO 1144 Cyanocobalamin 1,000 MCG DAILY 03/06 1000 AC 03/09 PO 1145 Guaifenesin 10 ML Q6P PRN 03/09 2200 AC 03/09 PO 2228 Ipratropium [place] 2.5 ML BID 03/060 AC 03/10 INH 0825 Ipratropium [place] 2.5 ML ONCE PRN 03/06 0430 DC INH Lactobacillus 1 CAP DAILY 03/06 1000 AC 03/09 Acidophilus PO 1145 Levetiracetam 500 MG QAM 03/06 1000 AC 03/09 PO 1146 Melatonin 5 MG AT BEDTIME 03/06 2200 AC 03/09 PO 2147 Mirtazapine 7.5 MG AT BEDTIME 03/06 2200 AC 03/09 PO 214 Multivitamins 1 TAB DAILY 03/06 1000 AC 03/09 Therapeutic PO 1145 Omeprazole 20 MG DAILY 03/06 1000 AC 03/09 PO 1145 Oxybutynin Chloride 10 MG TID 03/07 1600 AC 03/09 PO 2147 Oxycodone HCl 10 MG Q8 03/06 0600 AC 03/10 PO 0650 Protein 2 PKT BID 03/06 1000 AC 03/06 PO 2140 Rivaroxaban 20 MG DAILY 03/06 1000 AC 03/09 PO 1144 Sodium Hypochlorite 1 HILARIA BID 03/06 220 AC 03/09 TOP 214 Trazodone HCl 25 MG Q12H PRN 03/06 0430 AC PO Vancomycin HCl 1,000 MG Q12H 03/10 0600 AC 03/10 Sodium Chloride 250 ML IV 0652 Vancomycin HCl 1,000 MG Q12 03/07 1128 DC 03/09 Sodium Chloride 250 ML IV 1144 Last 24 Hrs of Lab/Perfecto Results Last 24 Hrs of Labs/Mics: Laboratory Tests 03/10/17 0515: Vancomycin Trough 19.5 03/09/172199: Vancomycin Trough Cancelled Assessment/Plan Assessment: Patient is a 71 YO M with Extensive PMH - significant includes paraplegia, suprapubic catheter, stage IV sacral ulcer, MRSA, VRE came to the [place] ER with low grade fever, hypotension, shortness of breath. Admitted with suspicion for septic shock. Plan Bacteremia with chronic osteomyelitis as a possible source * MRSA in blood cultures. * Continue vancomycin 1gm Q12 IV -trough level is 19.5 * Await sputum and urine cultures - negative so far. * Monitor vitals closely * PICC tomorrow. Chronic osteomyelitis * Pelvic MRI shows osteomyelitis on bilateral ischii * probably chronic given history of VRE of bone recently * Plastic surgery evaluatd the patient, suggesting a flap surgery. We will discuss regarding debridement eventually. Suprapubic catheter in place - with a leak * Urology consulted * Increased oxybutynin to 10mg TID as per recommendations. chronic and stable conditions CAD s/p CABG: Aspirin 81mg, atrovastatin 10mg Seizures: keppra 500mg H/O PE: Xarelto 20mg Diabetes: Insulin sliding scale Anxiety/Depression: COPD: Albuterol and ipratropium inhalers HTN: antihypertensives on hold - On lisinopril 10mg, furosemide 20mg at home. DVT prophylaxis * On xarelto Code status * Full code Problem List: 1. Hypertension 2. Hyperlipidemia 3. Bacteremia 4. Diabetes 5. Hypokalemia 6. Chronic osteomyelitis Pain Ratin Pain Location: n/a Pain Goal: Pain 4 or less Pain Plan: tylenol prn Tomorrow's Labs & Rationales: none
[2017-03-10 15:00] VITALS: BP 84/42
--- NOTE | 2017-03-10 20:18 | NUR ---
BP 92/0. JUANA/GRAHAM MULLIGAN CALLED AND MADE AWARE. ORDER TO RE-CHECK. BP 102/0. ORDER TO RE-CHECK LISTENING FOR MARKEN DECREASE IN TONE FOR DIASTOLIC PRESSURE. BP 102/42.
--- NOTE | 2017-03-10 20:20 | NUR ---
02 84% ON ROOM AIR. 2L NASAL CANNULA PLACED. O2 94%. WILL CONTINUE TO MONITOR.
[2017-03-10 20:22] VITALS: BP 102/42
[2017-03-10 23:02] VITALS: BP 90/40
--- NOTE | 2017-03-11 07:04 | PN- Housestaff ---
Subjective Follow-up For: MRSA bacteremia Chronic osteomyelitis Subjective: I saw and examined the patient today morning He is lying in the bed, reports no overnight issues. consented for PICC line today. Review of Systems Constitutional: Reports: see HPI. Comments: ROS negative except the above. Objective Last 24 Hrs of Vital Signs/I&O Vital Signs Date Time Temp Pulse Resp B/P B/P Pulse O2 O2 Flow FiO2 Mean Ox Delivery Rate 03/11 0000 Nasal 2.0L Cannula 03/10 2302 98.5 85 20 90/40 97 Nasal 2.0L Cannula 03/10 2022 98.4 89 20 102/42 94 Nasal 2.0L Cannula 03/10 1920 94 Room Air 03/10 1600 94 Nasal 2.0L Cannula 03/10 1500 97.9 94 20 84/42 93 Room Air 03/10 0826 91 Room Air Room Air Intake & Output 03/11 0800 03/11 0000 03/10 1600 Intake Total 100 1270 Output Total 1900 75 Balance -1800 1195 Intake, IV 270 Intake, Oral 100 1000 Output, Stool 50 75 Output, Urine 1850 Physical Exam General Appearance: Alert, Oriented X3, Cooperative, No Acute Distress Skin: No Rashes, No Breakdown HEENT: Atraumatic, PERRLA, EOMI Neck: Supple Cardiovascular: Normal S1, Normal S2 Lungs: Clear to Auscultation, Normal Air Movement Abdomen: Normal Bowel Sounds, Soft, No Tenderness Neurological: paraplegic - strength 0/5, upper extremities 5/5 Extremities: No Clubbing, No Cyanosis, No Edema Vascular: Normal Pulses, Pulses Symmetrical Current Medications: Current Medications Sig/Mey Start time Last Medication Dose Route Stop Time Status Admin Albuterol Sulfate 3 ML BID 03/06 2200 AC 03/10 INH 1920 Aspirin Buffered 81 MG DAILY 03/06 1000 AC 03/10 PO 0944 Atorvastatin Calcium 10 MG 1700 03/06 1700 AC 03/10 PO 1734 Baclofen 10 MG DAILY 03/06 1000 AC 03/10 PO 0944 Cyanocobalamin 1,000 MCG DAILY 03/06 1000 AC 03/10 PO 0944 Guaifenesin 10 ML Q6P PRN 03/09 2200 AC 03/09 PO 2228 Ipratropium [place] 2.5 ML BID 03/06 2200 AC 03/10 INH 1920 Lactobacillus 1 CAP DAILY 03/06 1000 AC 03/10 Acidophilus PO 0944 Levetiracetam 500 MG QAM 03/06 1000 AC 03/10 PO 0944 Melatonin 5 MG AT BEDTIME 03/06 2200 AC 03/10 PO 2233 Mirtazapine 7.5 MG AT BEDTIME 03/06 2200 AC 03/10 PO 2233 Multivitamins 1 TAB DAILY 03/06 1000 AC 03/10 Therapeutic PO 0944 Omeprazole 20 MG DAILY 03/06 1000 AC 03/10 PO 0944 Oxybutynin Chloride 10 MG TID 03/07 1600 AC 03/10 PO 2234 Oxycodone HCl 10 MG Q8 03/06 0600 AC 03/11 PO 0618 Protein 2 PKT BID 03/06 1000 AC 03/06 PO 2140 Rivaroxaban 20 MG DAILY 03/06 1000 AC 03/10 PO 0944 Sodium Hypochlorite 1 HILARIA BID 03/06 2200 AC 03/10 TOP 0945 Trazodone HCl 25 MG Q12H PRN 03/06 0430 AC PO Vancomycin HCl 1,000 MG Q12H 03/10 06 AC 03/11 Sodium Chloride 250 ML IV 0618 Last 24 Hrs of Lab/Perfecto Results Last 24 Hrs of Labs/Mics: Laboratory Tests 03/11/17 0705: Anion Gap 8, Estimated GFR > 60, BUN/Creatinine Ratio 47.1 H Assessment/Plan Assessment: Patient is a 71 YO M with Extensive PMH - significant includes paraplegia, suprapubic catheter, stage IV sacral ulcer, MRSA, VRE came to the [place] ER with low grade fever, hypotension, shortness of breath. Admitted with suspicion for septic shock. Plan Bacteremia with chronic osteomyelitis as a possible source * MRSA in blood cultures. * Continue vancomycin 1gm Q12 IV -trough level is 19.5 * Await sputum and urine cultures - negative so far. * Monitor vitals closely * PICC tomorrow. Chronic osteomyelitis * Pelvic MRI shows osteomyelitis on bilateral ischii * probably chronic given history of VRE of bone recently * Plastic surgery evaluatd the patient, suggesting a flap surgery. We will discuss regarding debridement eventually. Suprapubic catheter in place - with a leak * Urology consulted * Increased oxybutynin to 10mg TID as per recommendations. chronic and stable conditions CAD s/p CABG: Aspirin 81mg, atrovastatin 10mg Seizures: keppra 500mg H/O PE: Xarelto 20mg Diabetes: Insulin sliding scale Anxiety/Depression: COPD: Albuterol and ipratropium inhalers HTN: antihypertensives on hold - On lisinopril 10mg, furosemide 20mg at home. DVT prophylaxis * On xarelto Code status * Full code Problem List: 1. Chronic osteomyelitis 2. Hypotension 3. Bacteremia Pain Ratin Pain Location: back pain Pain Goal: Pain 4 or less Pain Plan: percocet and tylenol Tomorrow's Labs & Rationales: NONE
[2017-03-11 07:09] VITALS: BP 110/58
--- NOTE | 2017-03-11 10:08 | PN- Att Addend ---
Attending Addendum Attending Brief Note Patient has no complaints this morning. He is on oxygen. General Appearance: Alert, No Acute Distress Skin: Wound VAC at decubitus with odor HEENT: PEERLA Neck: Supple, No JVD Cardiovascular: Regular Rate, Normal S1, Normal S2, No Murmurs Lungs: Decreased air entry at bases Abdomen: Normal Bowel Sounds, Soft, No Tenderness Extremities: No Clubbing, No Cyanosis, No Edema Assessment Septic shock resolved. lumbosacral osteomyelitis confirmed on MRI. Now MRSA septicemia. Likely secondary to ischial and sacral osteomyelitis. Plan for debridement and placement of PICC for prolonged antibiotics. No abvious vegitations on echo and repeat blood cultures are negative. Plan Continue vancomycin Plastic surgery evaluation for debridement PICC line today Transfuse for hemoglobin less than 7 Continue other home medications DVT prophylaxis Current Medications Sig/Mey Start time Last Medication Dose Route Stop Time Status Admin Albuterol Sulfate 3 ML BID 03/06 2200 AC 03/11 INH 0851 Aspirin Buffered 81 MG DAILY 03/06 1000 AC 03/11 PO 0814 Atorvastatin Calcium 10 MG 1700 03/06 1700 AC 03/10 PO 1734 Baclofen 10 MG DAILY 03/06 1000 AC 03/11 PO 0814 Cyanocobalamin 1,000 MCG DAILY 03/06 1000 AC 03/11 PO 0815 Guaifenesin 10 ML Q6P PRN 03/09 2200 AC 03/09 PO 2228 Ipratropium [place] 2.5 ML BID 03/06 2200 AC 03/11 INH 0852 Lactobacillus 1 CAP DAILY 03/06 1000 AC 03/11 Acidophilus PO 0814 Levetiracetam 500 MG QAM 03/06 1000 AC 03/11 PO 0814 Melatonin 5 MG AT BEDTIME 03/06 2200 AC 03/10 PO 2233 Mirtazapine 7.5 MG AT BEDTIME 03/06 2200 AC 03/10 PO 2233 Multivitamins 1 TAB DAILY 03/06 1000 AC 03/11 Therapeutic PO 0815 Omeprazole 20 MG DAILY 03/06 1000 AC 03/11 PO 0814 Oxybutynin Chloride 10 MG TID 03/07 1600 AC 03/11 PO 0814 Oxycodone HCl 10 MG Q8 03/06 0600 AC 03/11 PO 0618 Protein 2 PKT BID 03/06 1000 AC 03/06 PO 2140 Rivaroxaban 20 MG DAILY 03/06 1000 AC 03/11 PO 0815 Sodium Hypochlorite 1 HILARIA BID 03/06 2200 AC 03/11 TOP 0815 Trazodone HCl 25 MG Q12H PRN 03/06 0430 AC PO Vancomycin HCl 1,000 MG Q12H 03/10 0600 AC 03/11 Sodium Chloride 250 ML IV 0618 Laboratory Tests 03/11 0705 Chemistry Sodium (137 - 145 mmol/L) 136 L Potassium (3.5 - 5.1 mmol/L) 5.4 H Chloride (98 - 107 mmol/L) 104 Carbon Dioxide (22 - 30 mmol/L) 24 Anion Gap (5 - 16) 8 BUN (9 - 20 mg/dL) 33 H Creatinine (0.7 - 1.2 mg/dL) 0.7 Estimated GFR (>60 ml/min) > 60 BUN/Creatinine Ratio (7 - 25 %) 47.1 H Vital Signs Date Time Temp Pulse Resp B/P B/P Pulse O2 O2 Flow FiO2 Mean Ox Delivery Rate 03/11 0709 98.2 91 20 110/58 95 Nasal 2.0L Cannula 03/11 0000 Nasal 2.0L Cannula 03/10 2302 98.5 85 20 90/40 97 Nasal 2.0L Cannula 03/102 98.4 89 20 102/42 94 Nasal 2.0L Cannula 03/10 1920 94 Room Air 03/10 1600 94 Nasal 2.0L Cannula 03/10 1500 97.9 94 20 84/42 93 Room Air
--- NOTE | 2017-03-11 13:05 | NUR ---
PER MD DELANEY CONDE IT IS OKAY TO GIVE 10MG OF ROXYCODONE ONE HOUR EARLY. GAVE AT 1300. WILL CONTINUE TO MONITOR.
--- NOTE | 2017-03-11 14:59 | NUR ---
PT'S K IS 5.4 TODAY. MD DELANEY HOPKINS MADE AWARE. WILL CONTINUE TO MONITOR.
--- NOTE | 2017-03-11 15:47 | RADIOLOGY REPORT ---
EXAMINATION: XR PORTABLE CHEST CLINICAL INFORMATION: PICC placement COMPARISON: 03/06/2017 TECHNIQUE: Portable frontal view of the chest was obtained. FINDINGS: Median sternotomy wires appear intact. Right-sided PICC line terminates near the cavoatrial junction. The left hemidiaphragm remains elevated. There is patchy left midlung opacity which is similar to previous. No pneumothorax. The cardiomediastinal silhouette is unchanged. Degenerative changes at the right shoulder suggestive of chronic rotator cuff disease. IMPRESSION: Right-sided PICC line terminating near the cavoatrial junction. Persistent left midlung hazy opacity. This is without change from prior.
[2017-03-11 22:31] VITALS: BP 118/60
--- NOTE | 2017-03-12 07:10 | PN- Housestaff ---
Subjective Follow-up For: MRSA bacteremia Chronic osteomyelitis Subjective: I saw the medinat today morning He is doing well, PICC line in place. No overnight events. Occasional shortness of breath. Review of Systems Constitutional: Reports: see HPI. Comments: ROS negative except the above. Objective Last 24 Hrs of Vital Signs/I&O Vital Signs Date Time Temp Pulse Resp B/P B/P Pulse O2 O2 Flow FiO2 Mean Ox Delivery Rate 03/11 2231 97.9 89 20 118/60 94 Nasal 1.0L Cannula 03/11 2055 89 Room Air 03/11 1600 Nasal 1.0L Cannula 03/11 0800 Nasal 2.0L Cannula Intake & Output 03/12 0800 03/12 0000 03/11 1600 Intake Total 450 700 Output Total 1100 500 Balance -650 200 Intake, IV 100 Intake, Oral 450 600 Output, Stool 50 Output, Urine 1100 450 Physical Exam General Appearance: Alert, Oriented X3, Cooperative, No Acute Distress Skin: No Rashes, No Breakdown, ischial and sacral decubitus ulcers present HEENT: Atraumatic, PERRLA, EOMI Neck: Supple Cardiovascular: Normal S1, Normal S2 Lungs: Clear to Auscultation, Normal Air Movement Abdomen: Normal Bowel Sounds, Soft, No Tenderness Neurological: Normal Speech, paraplegic, stregth 0/5 in lower extremities, 5/5 upper extremities Extremities: No Clubbing, No Cyanosis, No Edema Vascular: Normal Pulses Current Medications: Current Medications Sig/Mey Start time Last Medication Dose Route Stop Time Status Admin Albuterol Sulfate 3 ML BID 03/06 2200 AC 03/11 INH 0851 Aspirin Buffered 81 MG DAILY 03/06 1000 AC 03/11 PO 0814 Atorvastatin Calcium 10 MG 1700 03/06 1700 AC 03/11 PO 1759 Baclofen 10 MG DAILY 03/06 1000 AC 03/11 PO 0814 Cyanocobalamin 1,000 MCG DAILY 03/06 1000 AC 03/11 PO 0815 Guaifenesin 10 ML .STK-MED ONE 03/11 2127 DC PO 03/11 2128 Guaifenesin 10 ML Q6P PRN 03/09 2200 AC 03/11 PO 2125 Ipratropium [place] 2.5 ML BID 03/06 2200 AC 03/11 INH 0852 Lactobacillus 1 CAP DAILY 03/06 1000 AC 03/11 Acidophilus PO 0814 Levetiracetam 500 MG QAM 03/06 1000 AC 03/11 PO 0814 Melatonin 5 MG AT BEDTIME 03/06 2200 AC 03/11 PO 2118 Mirtazapine 7.5 MG AT BEDTIME 03/06 2200 AC 03/11 PO 2118 Multivitamins 1 TAB DAILY 03/06 1000 AC 03/11 Therapeutic PO 0815 Omeprazole 20 MG DAILY 03/06 1000 AC 03/11 PO 0814 Oxybutynin Chloride 10 MG TID 03/07 1600 AC 03/11 PO 2118 Oxycodone HCl 10 MG Q8 03/06 0600 AC 03/12 PO 0547 Patient Medication 1 ED .STK-MED ONE 03/11 1246 DC Teaching ED 03/11 1247 Protein 2 PKT BID 03/06 1000 AC 03/06 PO 2140 Rivaroxaban 20 MG DAILY 03/06 1000 AC 03/11 PO 0815 Sodium Hypochlorite 1 HILARIA BID 03/060 AC 03/11 TOP 2118 Sodium Polystyrene 60 ML ONCE ONE 03/11 1515 DC 03/11 Sulfonate PO 03/11 1516 1759 Trazodone HCl 25 MG Q12H PRN 03/06 0430 AC PO Vancomycin HCl 1,000 MG Q12H 03/10 0600 AC 03/12 Sodium Chloride 250 ML IV 0546 Assessment/Plan Assessment: Patient is a 71 YO M with Extensive PMH - significant includes paraplegia, suprapubic catheter, stage IV sacral ulcer, MRSA, VRE came to the [place] ER with low grade fever, hypotension, shortness of breath. Admitted with suspicion for septic shock. Plan MRSA Bacteremia with chronic osteomyelitis * MRSA in blood cultures - repeat cultures are negative from march 07. * Continue vancomycin 1gm Q12 IV. * Await sputum and urine cultures - negative so far. * Monitor vitals closely * PICC placed yesterday. Chronic osteomyelitis * Pelvic MRI shows osteomyelitis on bilateral ischii * probably acute on chronic given history of VRE of bone recently * Plastic surgery evaluatd the patient, suggesting a flap surgery. We will discuss regarding debridement eventually. * NPO overnight for possible debridement tomorrow by . Suprapubic catheter in place - with a leak * Urology consulted * Increased oxybutynin to 10mg TID as per recommendations. chronic and stable conditions CAD s/p CABG: Aspirin 81mg, atrovastatin 10mg Seizures: keppra 500mg H/O PE: Xarelto 20mg Diabetes: Insulin sliding scale Anxiety/Depression: COPD: Albuterol and ipratropium inhalers HTN: antihypertensives on hold - On lisinopril 10mg, furosemide 20mg at home. DVT prophylaxis * On xarelto Code status * Full code Problem List: 1. Chronic osteomyelitis 2. Bacteremia 3. Diabetes Pain Ratin Pain Location: n/a Pain Goal: Pain 4 or less Pain Plan: tylenol prn Tomorrow's Labs & Rationales: cbc to monitor H&H before procedure
[2017-03-12 07:18] VITALS: BP 124/70
--- NOTE | 2017-03-12 09:58 | PN- Att Addend ---
Attending Addendum Attending Brief Note Patient has no complaints this morning. General Appearance: Alert, No Acute Distress Skin: Wound VAC at decubitus with odor HEENT: PEERLA Neck: Supple, No JVD Cardiovascular: Regular Rate, Normal S1, Normal S2, No Murmurs Lungs: Decreased air entry at bases Abdomen: Normal Bowel Sounds, Soft, No Tenderness Extremities: No Clubbing, No Cyanosis, No Edema Assessment Septic shock resolved. lumbosacral osteomyelitis confirmed on MRI. Now MRSA septicemia. Likely secondary to ischial and sacral osteomyelitis. Plan for debridement and prolonged antibiotics. No abvious vegitations on echo and repeat blood cultures are negative. Plan Continue vancomycin Plastic surgery evaluation for debridement Transfuse for hemoglobin less than 7 Continue other home medications DVT prophylaxis Current Medications Sig/Mey Start time Last Medication Dose Route Stop Time Status Admin Albuterol Sulfate 3 ML BID 03/06 2200 AC 03/11 INH 0851 Aspirin Buffered 81 MG DAILY 03/06 1000 AC 03/11 PO 0814 Atorvastatin Calcium 10 MG 1700 03/06 1700 AC 03/11 PO 1759 Baclofen 10 MG DAILY 03/06 1000 AC 03/11 PO 0814 Cyanocobalamin 1,000 MCG DAILY 03/06 1000 AC 03/11 PO 0815 Guaifenesin 10 ML .STK-MED ONE 03/11 2127 DC PO 03/11 2128 Guaifenesin 10 ML Q6P PRN 03/090 AC 03/11 PO 2126 Ipratropium [place] 2.5 ML BID 03/06 2200 AC 03/11 INH 0852 Lactobacillus 1 CAP DAILY 03/06 1000 AC 03/11 Acidophilus PO 0814 Levetiracetam 500 MG QAM 03/06 1000 AC 03/11 PO 0814 Melatonin 5 MG AT BEDTIME 03/06 2200 AC 03/11 PO 2118 Mirtazapine 7.5 MG AT BEDTIME 03/06 2200 AC 03/11 PO 2118 Multivitamins 1 TAB DAILY 03/06 1000 AC 03/11 Therapeutic PO 0815 Omeprazole 20 MG DAILY 03/06 1000 AC 03/11 PO 0814 Oxybutynin Chloride 10 MG TID 03/07 1600 AC 03/11 PO 2118 Oxycodone HCl 10 MG Q8 03/06 0600 AC 03/12 PO 0547 Patient Medication 1 ED .STK-MED ONE 03/11 1246 DC Teaching ED 03/11 1247 Protein 2 PKT BID 03/06 1000 AC 03/06 PO 2140 Rivaroxaban 20 MG DAILY 03/06 1000 AC 03/11 PO 0815 Sodium Hypochlorite 1 HILARIA BID 03/06 2200 AC 03/11 TOP 2118 Sodium Polystyrene 60 ML ONCE ONE 03/11 1515 DC 03/11 Sulfonate PO 03/11 1516 1759 Trazodone HCl 25 MG Q12H PRN 03/06 0430 AC PO Vancomycin HCl 1,000 MG Q12H 03/10 0600 AC 03/12 Sodium Chloride 250 ML IV 0546 Vital Signs Date Time Temp Pulse Resp B/P B/P Pulse O2 O2 Flow FiO2 Mean Ox Delivery Rate 03/12 0718 98.0 92 20 124/70 94 Nasal 2.0L Cannula 03/12 0000 94 Nasal 1.0L Cannula 03/11 2231 97.9 89 20 118/60 94 Nasal 1.0L Cannula 03/11 2055 89 Room Air 03/11 1600 Nasal 1.0L Cannula
--- NOTE | 2017-03-12 11:37 | PN- Infect Dx ---
Subjective Subjective: Afebrile. He notes occasional shortness of breath, for which he requires oxygen Objective Last 24 Hrs of Vital Signs/I&O Vital Signs Date Time Temp Pulse Resp B/P B/P Pulse O2 O2 Flow FiO2 Mean Ox Delivery Rate 03/12 718 98.0 92 20 124/70 94 Nasal 2.0L Cannula 03/12 0000 94 Nasal 1.0L Cannula 03/11 2231 97.9 89 20 118/60 94 Nasal 1.0L Cannula 03/11 2055 89 Room Air 03/11 1600 Nasal 1.0L Cannula Intake & Output 03/12 1600 03/12 0800 03/12 0000 Intake Total 860 450 Output Total 790 1100 Balance 70 -650 Intake, IV 380 Intake, Oral 480 450 Output, Stool 50 Output, Urine 740 1100 Physical Exam Other Physical Findings: He appears comfortable in no acute distress Lungs decreased breath sounds at the left base Heart regular rhythm with no murmur Extremities PICC in the right upper extremity with no inflammation at the site Results Last 24 Hours of Lab Results: Laboratory Tests 03/11 705 Chemistry Sodium (137 - 145 mmol/L) 136 L Potassium (3.5 - 5.1 mmol/L) 5.4 H Chloride (98 - 107 mmol/L) 104 Carbon Dioxide (22 - 30 mmol/L) 24 Anion Gap (5 - 16) 8 BUN (9 - 20 mg/dL) 33 H Creatinine (0.7 - 1.2 mg/dL) 0.7 Estimated GFR (>60 ml/min) > 60 BUN/Creatinine Ratio (7 - 25 %) 47.1 H Last 24 Hours of Perfecto Results: Blood cultures March 07 negative Recent Imaging Studies: Chest x-ray March 11 persistent left midlung hazy opacity, unchanged from previous study Echocardiogram March 08 no report of any vegetations Assessment/Plan Impression: Stable, with temperatures remaining normal, on Vancomycin Day 5 of treatment for MRSA bacteremia, most likely secondary to the bilateral ischial and sacral decubiti given the MRI findings, which are felt by Radiology to represent an acute osteomyelitis superimposed on a chronic osteomyelitis. He will need debridement of these decubiti and is awaiting plastic surgery follow-up for scheduling of this. His Vancomycin trough level is therapeutic, and he can be continued on Vancomycin at the current dose. Suggestion: 1. Await debridement of the sacrum and ischii per Dr. Hauser 2. Continue Vancomycin
[2017-03-12 14:03] VITALS: BP 110/40
--- NOTE | 2017-03-12 22:21 | Event Note ---
Event Note Event Note: Pt is NPO at midnight. I ordered NS at 75ml/hr. I do not see an order for insulin, hence I did not start D51/2NS. Roxicodone renewed.
[2017-03-12 22:48] VITALS: BP 120/40
--- NOTE | 2017-03-12 23:12 | NUR ---
PT STARTED ON IV NORMAL SALINE PT IS NPO AT MIDNIGHT FOR OR TOMORROW. SPOKE WITH ELECTRICAL TESTER JUANA ABOUT STARTING HIM ON D51/2NS RATHER THAN NS PT IS DIABETIC. PER MD, OK FOR PT TO BE ON NORMAL SALINE HE DOES NOT HAVE INSULIN COVERAGE. WILL MONITOR.
--- NOTE | 2017-03-13 06:42 | Event Note ---
Event Note Event Note: Started novolin NPO ss Changed accucheck to q6 Started d51/2ns at 75ml/hr for 1 bag Renewed vancomycin
[2017-03-13 06:53] VITALS: BP 120/50
--- NOTE | 2017-03-13 07:14 | PN- Housestaff ---
Subjective Follow-up For: acute on chronic osteomyelitis Going to OR for debridement Subjective: I saw and examined the patient today morning He is doing well. Exhausted being NPO. otherwise no issues. Reports he dont even need anesthesia. Review of Systems Constitutional: Reports: see HPI. Comments: ROS negative except the above. Objective Last 24 Hrs of Vital Signs/I&O Vital Signs Date Time Temp Pulse Resp B/P B/P Pulse O2 O2 Flow FiO2 Mean Ox Delivery Rate 03/13 0653 98.0 79 20 120/50 95 Room Air 03/12 2248 98.9 101 20 120/40 93 03/12 1403 97.9 89 20 110/40 93 Nasal 1.5L Cannula 03/12 0800 96 Nasal 1.0L Cannula 03/12 0718 98.0 92 20 124/70 94 Nasal 2.0L Cannula Intake & Output 03/13 0800 03/13 0000 03/12 1600 Intake Total 259 662 7869 Output Total 950 800 200 Balance -40 -440 950 Intake, IV 850 250 Intake, Oral 60 360 900 Output, Stool 100 150 200 Output, Urine 850 650 Physical Exam General Appearance: Alert, Oriented X3, Cooperative, No Acute Distress Skin: No Rashes, No Breakdown HEENT: Atraumatic, PERRLA, EOMI Neck: Supple, No JVD Cardiovascular: Normal S1, Normal S2 Lungs: Clear to Auscultation, Normal Air Movement Abdomen: Normal Bowel Sounds, Soft, No Tenderness Neurological: paraplegic Extremities: No Clubbing, No Cyanosis, 2+ pitting edema Current Medications: Current Medications Sig/Mey Start time Last Medication Dose Route Stop Time Status Admin Albuterol Sulfate 3 ML BID 03/06 2200 AC 03/12 INH 2000 Aspirin Buffered 81 MG DAILY 03/06 1000 AC 03/12 PO 1052 Atorvastatin Calcium 10 MG 1700 03/06 1700 AC 03/12 PO 1825 Baclofen 10 MG DAILY 03/06 1000 AC 03/12 PO 1052 Cyanocobalamin 1,000 MCG DAILY 03/06 1000 AC 03/12 PO 1052 Dextrose/Sodium 1,000 ML Q13H 03/13 0645 AC Chloride IV 03/13 194 Guaifenesin 10 ML .STK-MED ONE 03/12 2119 DC PO 03/12 2120 Guaifenesin 10 ML Q6P PRN 03/09 2200 AC 03/12 PO 2118 Insulin Human Regular 0 Q6 03/13 0645 AC SC Ipratropium [place] 2.5 ML BID 03/06 2200 AC 03/12 INH 2001 Lactobacillus 1 CAP DAILY 03/06 1000 AC 03/12 Acidophilus PO 1052 Levetiracetam 500 MG QAM 03/06 1000 AC 03/12 PO 1052 Melatonin 5 MG AT BEDTIME 03/06 2200 AC 03/12 PO 2120 Mirtazapine 7.5 MG AT BEDTIME 03/06 2200 AC 03/12 PO 2120 Multivitamins 1 TAB DAILY 03/06 1000 AC 03/12 Therapeutic PO 1052 Omeprazole 20 MG DAILY 03/06 1000 AC 03/12 PO 1052 Oxybutynin Chloride 10 MG TID 03/07 1600 AC 03/12 PO 2120 Oxycodone HCl 10 MG Q8 03/06 0600 AC 03/13 PO 0535 Protein 2 PKT BID 03/06 1000 AC 03/06 PO 2140 Rivaroxaban 20 MG DAILY 03/06 1000 AC 03/12 PO 1052 Sodium Chloride 1,000 ML Q13H 03/12 2215 DC 03/12 IV 2235 Sodium Hypochlorite 1 HILARIA BID 03/06 2200 AC 03/12 TOP 2119 Trazodone HCl 25 MG Q12H PRN 03/06 0430 AC PO Vancomycin HCl 1,000 MG Q12H 03/10 0600 AC 03/13 Sodium Chloride 250 ML IV 0534 Last 24 Hrs of Lab/Perfecto Results Last 24 Hrs of Labs/Mics: Microbiology 03/13 1830 MISC O.R.: Miscellaneous Culture - RECD 03/13 1830 MISC O.R.: Gram Stain - RECD 03/13 1830 MISC O.R.: Miscellaneous Culture - RECD 03/13 1830 MISC O.R.: Gram Stain - RECD 03/13 1830 MISC O.R.: Miscellaneous Culture - RECD 03/13 1830 MISC O.R.: Gram Stain - RECD Assessment/Plan Assessment: Patient is a 71 YO M with Extensive PMH - significant includes paraplegia, suprapubic catheter, stage IV sacral ulcer, MRSA, VRE came to the [place] ER with low grade fever, hypotension, shortness of breath. Admitted with suspicion for septic shock. Plan MRSA Bacteremia with chronic osteomyelitis * MRSA in blood cultures - repeat cultures are negative from march 07. * Continue vancomycin 1gm Q12 IV. * Await sputum and urine cultures - negative so far. * Monitor vitals closely * PICC placed yesterday. Chronic osteomyelitis * Pelvic MRI shows osteomyelitis on bilateral ischii * probably acute on chronic given history of VRE of bone recently * NPO overnight for debridement today by . * Tolerated procedure well Suprapubic catheter in place - with a leak * Urology consulted * Increased oxybutynin to 10mg TID as per recommendations. chronic and stable conditions CAD s/p CABG: Aspirin 81mg, atrovastatin 10mg Seizures: keppra 500mg H/O PE: Xarelto 20mg Diabetes: Insulin sliding scale Anxiety/Depression: COPD: Albuterol and ipratropium inhalers HTN: antihypertensives on hold - On lisinopril 10mg, furosemide 20mg at home. DVT prophylaxis * On xarelto Code status * Full code Problem List: 1. Hypoxia 2. Decubitus ulcer 3. Leukocytosis Pain Ratin Pain Location: n/a Pain Goal: Pain 4 or less Pain Plan: tylenol prn percocet Tomorrow's Labs & Rationales: cbc to monitor post op Consulting Request: Consulting Specialty: Urology Consulting Physician: Dr. Koch Reason for Consult: urine leakage
--- NOTE | 2017-03-13 09:24 | PN- Att Addend ---
Attending Addendum Attending Brief Note Patient has no complaints this morning. General Appearance: Alert, No Acute Distress Skin: Wound VAC at decubitus with odor HEENT: PEERLA Neck: Supple, No JVD Cardiovascular: Regular Rate, Normal S1, Normal S2, No Murmurs Lungs: Decreased air entry at bases Abdomen: Normal Bowel Sounds, Soft, No Tenderness Extremities: No Clubbing, No Cyanosis, No Edema Assessment Septic shock resolved. lumbosacral osteomyelitis confirmed on MRI. Now MRSA septicemia. Likely secondary to ischial and sacral osteomyelitis. Plan for debridement and prolonged antibiotics. No abvious vegitations on echo and repeat blood cultures are negative. Patient is scheduled for debridement today. Plan Debridement today Continue vancomycin Transfuse for hemoglobin less than 7 Continue other home medications DVT prophylaxis Current Medications Sig/Mey Start time Last Medication Dose Route Stop Time Status Admin Albuterol Sulfate 3 ML BID 03/06 2200 AC 03/13 INH 0844 Aspirin Buffered 81 MG DAILY 03/06 1000 AC 03/12 PO 1052 Atorvastatin Calcium 10 MG 1700 03/06 1700 AC 03/12 PO 1825 Baclofen 10 MG DAILY 03/06 1000 AC 03/12 PO 1052 Cyanocobalamin 1,000 MCG DAILY 03/06 1000 AC 03/12 PO 1052 Dextrose/Sodium 1,000 ML Q13H 03/13 0645 AC 03/13 Chloride IV 03/13 194 0803 Guaifenesin 10 ML .STK-MED ONE 03/12 2119 DC PO 03/12 2120 Guaifenesin 10 ML Q6P PRN 03/09 2200 AC 03/12 PO 211 Insulin Human Regular 0 Q6 03/13 0645 AC SC Ipratropium Ignacio 2.5 ML BID 03/06 220 AC 03/13 INH 0844 Lactobacillus 1 CAP DAILY 03/06 1000 AC 03/12 Acidophilus PO 1052 Levetiracetam 500 MG QAM 03/06 1000 AC 03/12 PO 1052 Melatonin 5 MG AT BEDTIME 03/06 2200 AC 03/12 PO 2120 Mirtazapine 7.5 MG AT BEDTIME 03/06 2200 AC 03/12 PO 2120 Multivitamins 1 TAB DAILY 03/06 1000 AC 03/12 Therapeutic PO 1052 Omeprazole 20 MG DAILY 03/06 1000 AC 03/12 PO 1052 Oxybutynin Chloride 10 MG TID 03/07 1600 AC 03/12 PO 2120 Oxycodone HCl 10 MG Q8 03/06 0600 AC 03/13 PO 0535 Protein 2 PKT BID 03/06 1000 AC 03/06 PO 2140 Rivaroxaban 20 MG DAILY 03/06 1000 AC 03/12 PO 1052 Sodium Chloride 1,000 ML Q13H 03/12 2215 DC 03/12 IV 2235 Sodium Hypochlorite 1 HILARIA BID 03/06 2200 AC 03/12 TOP 2119 Trazodone HCl 25 MG Q12H PRN 03/06 0430 AC PO Vancomycin HCl 1,000 MG Q12H 03/10 0600 AC 03/13 Sodium Chloride 250 ML IV 0534 Vital Signs Date Time Temp Pulse Resp B/P B/P Pulse O2 O2 Flow FiO2 Mean Ox Delivery Rate 03/13 0847 92 Room Air 03/13 0653 98.0 79 20 120/50 95 Room Air 03/12 2248 98.9 101 20 120/40 93 03/12 1403 97.9 89 20 110/40 93 Nasal 1.5L Cannula
[2017-03-13 14:35] VITALS: BP 98/50
--- NOTE | 2017-03-13 18:48 | Operative Report ---
Operative/Inv Procedure Report Surgery Date: 03/13/17 Name of Procedure: Debridement left ischial wound Debridement right ischial wound Debridement sacral wound including ostectomies Pre-Operative Diagnosis: open sacral wound secondary to paraplegia rule out osteomyelitis as source of bacteremia Post-Operative Diagnosis: Same Estimated Blood Loss: scant Surgeon/Black Belt: jason Anesthesia: moderate sedation Operative/Procedure Note Note: The patient was counseled Wills the procedure the alternatives the risks and expected outcomes as relates to the bone biopsy in the face of recent bacteremia secondary to MRSA. Infectious disease would like to know if the source is the chronic open buttock wound secondary to paraplegia and pressure injury. Patient was taken to the operating room placed supine on the operating table. Intravenous sedation was given. The patient was put in the left side down position with the use of a beanbag. The buttock was then prepped and draped in usual sterile fashion. The patient had an ostectomy performed of the right left and right issue as well as the sacral region. There was no additional tracking identified nor any purulent collections. Small amount of necrotic soft tissue was sharply excised. Continue with wound care. Wound center. The patient has a new near full thickness injury on his left posterior hip. The increasing soft tissue injuries will make it difficult for flap reconstruction.
[2017-03-13 22:45] VITALS: BP 110/50
[2017-03-13 23:15] VITALS: BP 120/50
--- NOTE | 2017-03-14 00:12 | NUR ---
ALERT AND ORIENTED X 3. ON 2L O2 VIA NC. VITAL SIGNS STABLE. DENIES CHEST PAIN. + PULSES. PARAPLEGIC FROM CHEST DOWN. MEDICATION GIVEN FOR DISCOMFORT PATIENT TURNED AND REPOSITIONED. MULLINS AND OSTOMY CARE GIVEN. DSGS TO BOTTOM ARE C/D/I. WILL CONTINUE TO MONITOR
--- NOTE | 2017-03-14 02:09 | Event Note ---
Event Note Event Note: BEP ordered to follow kidney functions on vancomycin.
[2017-03-14 06:52] VITALS: BP 100/52
--- NOTE | 2017-03-14 07:02 | PN- Housestaff ---
Subjective Follow-up For: Stage IV decubitus ulcers with osteomyelitis Subjective: I saw and examined the patient today morning He is doing well. At his baseline. Good spirits Review of Systems Constitutional: Reports: see HPI. Objective Last 24 Hrs of Vital Signs/I&O Vital Signs Date Time Temp Pulse Resp B/P B/P Pulse O2 O2 Flow FiO2 Mean Ox Delivery Rate 03/14 0652 98.8 89 22 100/52 97 Room Air 03/14 0000 Nasal 2.0L Cannula 03/13 2315 93 120/50 93 Nasal 2.0L Cannula 03/13 2245 98.4 90 19 110/50 89 Nasal 2.0L Cannula 03/13 1600 Room Air 03/13 1435 97.4 79 18 98/50 94 03/13 0847 92 Room Air Intake & Output 03/14 0800 03/14 0000 03/13 1600 Intake Total 200 700 Output Total 338 843 5971 Balance -800 -450 -500 Intake, IV 600 Intake, Oral 200 100 Output, Stool 200 200 Output, Urine 686 199 2194 Physical Exam General Appearance: Alert, Oriented X3, Cooperative, No Acute Distress Skin: No Rashes, No Breakdown HEENT: Atraumatic, PERRLA Neck: Supple Cardiovascular: Normal S1, Normal S2 Lungs: Clear to Auscultation, Normal Air Movement Abdomen: Normal Bowel Sounds, Soft, No Tenderness Neurological: paraplegic Current Medications: Current Medications Sig/Mey Start time Last Medication Dose Route Stop Time Status Admin Albuterol Sulfate 3 ML BID 03/06 2200 AC 03/13 INH 0844 Aspirin Buffered 81 MG DAILY 03/06 1000 AC 03/13 PO 1017 Atorvastatin Calcium 10 MG 1700 03/06 1700 AC 03/13 PO 1627 Baclofen 10 MG DAILY 03/06 1000 AC 03/13 PO 1017 Cyanocobalamin 1,000 MCG DAILY 03/06 1000 AC 03/13 PO 1018 Dexamethasone 4 MG .STK-MED ONE 03/13 180 DC IM 03/13 180 Dextrose/Sodium 1,000 ML Q13H 03/13 0645 DC 03/13 Chloride IV 03/13 1944 0803 Fentanyl Citrate 250 MCG .STK-MED ONE 03/13 1801 DC IM 03/13 1802 Guaifenesin 10 ML Q6P PRN 03/09 2200 AC 03/12 PO 2118 Insulin Aspart 0 TIDAC 03/14 0800 AC SC Insulin Aspart 0 AT BEDTIME 03/130 AC SC Insulin Human Regular 0 Q6 03/13 0645 DC SC Ipratropium Inez 2.5 ML BID 03/06 2200 AC 03/13 INH 0844 Lactobacillus 1 CAP DAILY 03/06 1000 AC 03/13 Acidophilus PO 1017 Levetiracetam 500 MG QAM 03/06 1000 AC 03/13 PO 1017 Melatonin 5 MG AT BEDTIME 03/06 2200 AC 03/13 PO 2242 Midazolam HCl 4 MG .STK-MED ONE 03/13 1801 DC IM 03/13 1802 Mirtazapine 7.5 MG AT BEDTIME 03/06 2200 AC 03/13 PO 2242 Multivitamins 1 TAB DAILY 03/06 1000 AC 03/13 Therapeutic PO 1017 Omeprazole 20 MG DAILY 03/06 1000 AC 03/13 PO 1017 Ondansetron HCl 8 MG .STK-MED ONE 03/13 1802 DC IM 03/13 1803 Oxybutynin Chloride 10 MG TID 03/07 1600 AC 03/13 PO 2242 Oxycodone HCl 10 MG Q8 03/06 0600 AC 03/14 PO 0528 Patient Medication 1 ED .STK-MED ONE 03/13 1315 DC Teaching ED 03/13 1316 Protein 2 PKT BID 03/06 1000 AC 03/06 PO 2140 Rivaroxaban 20 MG DAILY 03/06 1000 AC 03/13 PO 1018 Sodium Hypochlorite 1 HILARIA BID 03/06 220 AC 03/13 TOP 2255 Trazodone HCl 25 MG Q12H PRN 03/06 0430 AC PO Vancomycin HCl 1,000 MG Q12H 03/10 0600 AC 03/14 Sodium Chloride 250 ML IV 0529 Last 24 Hrs of Lab/Perfecto Results Last 24 Hrs of Labs/Mics: Laboratory Tests 03/14/17 0535: Anion Gap 8, Estimated GFR > 60, BUN/Creatinine Ratio 37.1 H Microbiology 03/13 1856 TRUNK/O.R.: Culture & Sensitivity - RECD 03/13 1856 TRUNK/O.R.: Gram Stain - RECD 03/13 1856 TRUNK/O.R.: Culture & Sensitivity - RECD 03/13 1856 TRUNK/O.R.: Gram Stain - RECD 03/13 1855 TRUNK/O.R.: Culture & Sensitivity - RECD 03/13 1855 TRUNK/O.R.: Gram Stain - RECD 03/13 1830 MISC O.R.: Miscellaneous Culture - CAN Cancelled: WRONG ORDER 03/13 1830 MISC O.R.: Gram Stain - CAN Cancelled: WRONG ORDER 03/13 1830 MISC O.R.: Miscellaneous Culture - CAN Cancelled: WRONG ORDER 03/13 1830 MISC O.R.: Gram Stain - CAN Cancelled: WRONG ORDER 03/13 1830 MISC O.R.: Miscellaneous Culture - CAN Cancelled: WRONG ORDER 03/13 1830 MISC O.R.: Gram Stain - CAN Cancelled: WRONG ORDER Assessment/Plan Assessment: Patient is a 71 YO M with Extensive PMH - significant includes paraplegia, suprapubic catheter, stage IV sacral ulcer, MRSA, VRE came to the [facility] ER with low grade fever, hypotension, shortness of breath. Admitted with suspicion for septic shock. Plan MRSA Bacteremia with chronic osteomyelitis * MRSA in blood cultures - repeat cultures are negative from march 07. * Continue vancomycin 1gm Q12 IV for a total of 6-8weeks - atleast till april 24. * Receiving antibiotics through PICC line. * Need monitoring of CBC, ESR, BUN/Cr and vanco trough level every week Chronic osteomyelitis * Pelvic MRI shows osteomyelitis on bilateral ischii * probably acute on chronic given history of VRE of bone recently * Tolerated well today. Suprapubic catheter in place - with a leak * Urology consulted * Increased oxybutynin to 10mg TID as per recommendations. chronic and stable conditions CAD s/p CABG: Aspirin 81mg, atrovastatin 10mg Seizures: keppra 500mg H/O PE: Xarelto 20mg Diabetes: Insulin sliding scale Anxiety/Depression: COPD: Albuterol and ipratropium inhalers HTN: antihypertensives on hold - On lisinopril 10mg, furosemide 20mg, continued at discharge. DVT prophylaxis * On xarelto Code status * Full code Problem List: 1. CAD (coronary artery disease) 2. Septic shock 3. Chronic osteomyelitis 4. Bacteremia Pain Ratin Pain Location: none Pain Goal: Pain 4 or less Pain Plan: n/a Tomorrow's Labs & Rationales: none Consulting Request: Consulting Specialty: Urology Consulting Physician: Dr. Koch Reason for Consult: urine leakage
--- NOTE | 2017-03-14 09:54 | PN- Att Addend ---
Attending Addendum Attending Brief Note Patient has no complaints this morning. General Appearance: Alert, No Acute Distress Skin: Wound VAC at decubitus with odor HEENT: PEERLA Neck: Supple, No JVD Cardiovascular: Regular Rate, Normal S1, Normal S2, No Murmurs Lungs: Decreased air entry at bases Abdomen: Normal Bowel Sounds, Soft, No Tenderness Extremities: No Clubbing, No Cyanosis, No Edema Assessment Septic shock resolved. lumbosacral osteomyelitis confirmed on MRI. Now MRSA septicemia. Likely secondary to ischial and sacral osteomyelitis. Plan for debridement and prolonged antibiotics. No abvious vegitations on echo and repeat blood cultures are negative. Patient is status post debridement with bone cultures pending. Plan Follow OR cultures Continue vancomycin Transfuse for hemoglobin less than 7 Continue other home medications DVT prophylaxis Current Medications Sig/Mey Start time Last Medication Dose Route Stop Time Status Admin Albuterol Sulfate 3 ML BID 03/06 2200 AC 03/13 INH 0844 Aspirin Buffered 81 MG DAILY 03/06 1000 AC 03/13 PO 1017 Atorvastatin Calcium 10 MG 1700 03/06 1700 AC 03/13 PO 1627 Baclofen 10 MG DAILY 03/06 1000 AC 03/13 PO 1017 Cyanocobalamin 1,000 MCG DAILY 03/06 1000 AC 03/13 PO 1018 Dexamethasone 4 MG .STK-MED ONE 03/13 1802 DC IM 03/13 1803 Dextrose/Sodium 1,000 ML Q13H 03/13 0645 DC 03/13 Chloride IV 03/13 1944 0803 Fentanyl Citrate 250 MCG .STK-MED ONE 03/13 1801 DC IM 03/13 1802 Guaifenesin 10 ML Q6P PRN 03/09 2200 AC 03/12 PO 2118 Insulin Aspart 0 TIDAC 03/14 0800 AC SC Insulin Aspart 0 AT BEDTIME 03/13 2200 AC SC Insulin Human Regular 0 Q6 03/13 0645 DC SC Ipratropium Crystal 2.5 ML BID 03/06 2200 AC 03/13 INH 0844 Lactobacillus 1 CAP DAILY 03/06 1000 AC 03/13 Acidophilus PO 1017 Levetiracetam 500 MG QAM 03/06 1000 AC 03/13 PO 1017 Melatonin 5 MG AT BEDTIME 03/06 2200 AC 03/13 PO 2242 Midazolam HCl 4 MG .STK-MED ONE 03/13 1801 DC IM 03/13 1802 Mirtazapine 7.5 MG AT BEDTIME 03/06 2200 AC 03/13 PO 2242 Multivitamins 1 TAB DAILY 03/06 1000 AC 03/13 Therapeutic PO 1017 Omeprazole 20 MG DAILY 03/06 1000 AC 03/13 PO 1017 Ondansetron HCl 8 MG .STK-MED ONE 03/13 1802 DC IM 03/13 1803 Oxybutynin Chloride 10 MG TID 03/07 1600 AC 03/13 PO 2242 Oxycodone HCl 10 MG Q8 03/06 0600 AC 03/14 PO 0528 Patient Medication 1 ED .STK-MED ONE 03/13 1315 DC Teaching ED 03/13 1316 Protein 2 PKT BID 03/06 1000 AC 03/06 PO 2140 Rivaroxaban 20 MG DAILY 03/06 1000 AC 03/13 PO 1018 Sodium Hypochlorite 1 HILARIA BID 03/06 2200 AC 03/13 TOP 2255 Trazodone HCl 25 MG Q12H PRN 03/06 0430 AC PO Vancomycin HCl 1,000 MG Q12H 03/10 0600 AC 03/14 Sodium Chloride 250 ML IV 0529 Laboratory Tests 03/14 0535 Chemistry Sodium (137 - 145 mmol/L) 134 L Potassium (3.5 - 5.1 mmol/L) 4.9 Chloride (98 - 107 mmol/L) 99 Carbon Dioxide (22 - 30 mmol/L) 27 Anion Gap (5 - 16) 8 BUN (9 - 20 mg/dL) 26 H Creatinine (0.7 - 1.2 mg/dL) 0.7 Estimated GFR (>60 ml/min) > 60 BUN/Creatinine Ratio (7 - 25 %) 37.1 H Vital Signs Date Time Temp Pulse Resp B/P B/P Pulse O2 O2 Flow FiO2 Mean Ox Delivery Rate 03/14 0652 98.8 89 22 100/52 97 Room Air 03/14 0000 Nasal 2.0L Cannula 03/13 2315 93 120/50 93 Nasal 2.0L Cannula 03/135 98.4 90 19 110/50 89 Nasal 2.0L Cannula 03/13 1600 Room Air 03/13 1435 97.4 79 18 98/50 94
--- NOTE | 2017-03-14 11:00 | NUR ---
wound care: pt seen for f/u wound assessment - pt stated he is pending dc today or tomorrow - also states wound vac has been discontinued and at this point MD requesting wet to dry packing to 'see if it fills in a little on its own' - wound measurements as follows: left hip 6x2 cm unstageable pressure injury dry desicated fill oakley yellow base with unremarkabnle periwound - no undermining or tunneling - recommend hydrogel, xeroform and dpd daily right heel unstageable pressure injury 4 x 1.8 cm dry desicated black scab - stable eschar - recommend paint daily with betadine and offloading left heel dti 3x3 cm - recommend 100% offloading right ischium stage 4 pressure injury 7 x 6.3 x 3 cm with 3 cm tunnel at center - exposed bone and predominately red fill - sacrum stage 4 pressure injury [id number] cm with pred. red fill - exposed scal bone throughout - undermining as follows 12:00 2 cm, 3:00 4 cm, 6:00 2.2. cm, 9:00 2 cm - large amounts of serosang drng - periwound unremarkable - all wounds packed with 1/4 strength dakins solution moist gauze - pt cont to refuse clinitron mattress - offloading maintained
[2017-03-14 14:38] VITALS: BP 118/42
--- NOTE | 2017-03-14 14:43 | Patient Discharge Instructions ---
Discharge Instructions General Discharge Information You were seen/treated for: MRSA bacteremia chronic osteomyelitis You had these procedures: Debridement of the sacral and decubitus wounds Special Instructions: Please follow up with in a week Please follow up with Dr. Hauser in a week Please take your medications regularly. Please monitor ESR, CBC, vanco trough level weekly Please follow up with pathology and micro results Diet Recommended Diet: Diabetic Activity Activity Self Limited: Yes Acute Coronary Syndrome Inclusion Criteria At DC or during hospital stay patient has or had the following: ACS DIAGNOSIS No Discharge Core Measures Meds if any: Prescribed or Continued at Discharge Meds if any: NOT Prescribed or Continued at Discharge Congestive Heart Failure Inclusion Criteria At DC or during hospital stay patient has or had the following: CHF DIAGNOSIS No Discharge Core Measures Meds if any: Prescribed or Continued at Discharge Meds if any: NOT Prescribed or Continued at Discharge Cerebrovascular accident Inclusion Criteria At DC or during hospital stay patient has or had the following: CVA/TIA Diagnosis No Discharge Core Measures Meds if any: Prescribed or Continued at Discharge Meds if any: NOT Prescribed or Continued at Discharge Venous thromboembolism Inclusion Criteria VTE Diagnosis No VTE Type NONE VTE Confirmed by (Test) NONE Discharge Core Measures - Per Current guidelines, there needs to be overlap - treatment for the first 5 days of Warfarin therapy. - If discharged on Warfarin prior to 5 days of - overlap therapy, the patient will need to be - assessed for post discharge needs including - *Post discharge parental anticoagulation - *Warfarin and/or parental anticoagulation education - *Follow up date to check INR post discharge At least 5 days overlap therapy as Inpatient No Meds if any: Prescribed or Continued at Discharge Note: Overlap Therapy is Warfarin and Anticoagulant Meds if any: NOT Prescribed or Continued at Discharge
--- NOTE | 2017-03-14 15:00 | PN- Infect Dx ---
Subjective Subjective: Afebrile without complaints Objective Last 24 Hrs of Vital Signs/I&O Vital Signs Date Time Temp Pulse Resp B/P B/P Pulse O2 O2 Flow FiO2 Mean Ox Delivery Rate 03/14 1438 97.9 89 20 118/42 90 Room Air 03/14 1055 95 Nasal 2.0L Cannula 03/14 0652 98.8 89 22 100/52 97 Room Air 03/14 0000 Nasal 2.0L Cannula 03/13 2315 93 120/50 93 Nasal 2.0L Cannula 03/13 2245 98.4 90 19 110/50 89 Nasal 2.0L Cannula 03/13 1600 Room Air Intake & Output 03/14 1600 03/14 0800 03/14 0000 Intake Total 200 Output Total 800 650 Balance -800 -450 Intake, Oral 200 Output, Stool 200 Output, Urine 600 650 Physical Exam Other Physical Findings: He appears comfortable in no acute distress Lungs are clear Extremities PICC in the right upper extremity with no inflammation at the site Results Last 24 Hours of Lab Results: Laboratory Tests 03/14 0535 Chemistry Sodium (137 - 145 mmol/L) 134 L Potassium (3.5 - 5.1 mmol/L) 4.9 Chloride (98 - 107 mmol/L) 99 Carbon Dioxide (22 - 30 mmol/L) 27 Anion Gap (5 - 16) 8 BUN (9 - 20 mg/dL) 26 H Creatinine (0.7 - 1.2 mg/dL) 0.7 Estimated GFR (>60 ml/min) > 60 BUN/Creatinine Ratio (7 - 25 %) 37.1 H Last 24 Hours of Perfecto Results: OR cultures March 13 from the sacrum, left ischium and right ischium pending Assessment/Plan Impression: Stable status post debridement of the left ischial wound, right ischial wound and sacrum yesterday for presumed osteomyelitis based on the recent MRI which suggested an acute osteomyelitis superimposed on a chronic osteomyelitis with temperatures remaining normal on Vancomycin Day 7 of treatment for MRSA bacteremia, felt most likely to be secondary to the decubiti. The pathology is pending and, as discussed with Plastics, if osteomyelitis is confirmed he will require more aggressive debridement. Suggestion: 1. Would obtain an ESR today and follow 2. Will need a CBC, ESR, BUN/creatinine and Vancomycin trough level weekly 3. Follow-up pathology from the recent bone biopsies 4. Plastic surgery follow-up as an outpatient with further debridement based on above 5. Continue Vancomycin to plan on a 6-8 week course from his final debridement (until at least April 24)
[2017-03-14] MEDS ORDERED: VANCOMYCIN1 GM/2001 IV (15:21)
[2017-03-14 16:12] VITALS: BP 118/42
== END 2017-03-14 16:20 | DRG 853 ==
LOC: ERH 23:38 → ERHI 03-06 02:28 → 2NB 03-06 02:28 → ENRESERV 03-06 03:38 → EDBEDREQ 03-06 07:45 → ERHI 03-06 07:51 → ENRESERV 03-06 11:38 → CANRESERV 03-06 11:38 → ENRESERV 03-06 11:40 → CMPBEDREQ 03-06 11:41 → 2NB 03-06 12:18
PROVIDERS: Internal Medicine; Physician Assistant Medical; Student in an Organized Health Care Education/Training Program; ADMIT Internal Medicine
PROC: 0QB30ZZ Excision of Left Pelvic Bone, Open Approach (ICD-10-PCS; principal; 2017-03-13)
PROC: 0QB20ZZ Excision of Right Pelvic Bone, Open Approach (ICD-10-PCS; principal; 2017-03-13)
DX: A41.02 Sepsis due to Methicillin resistant Staphylococcus aureus (principal); R65.21 Severe sepsis with septic shock; N17.9 Acute kidney failure, unspecified; L89.154 Pressure ulcer of sacral region, stage 4; L89.214 Pressure ulcer of right hip, stage 4; L89.220 Pressure ulcer of left hip, unstageable; G82.20 Paraplegia, unspecified; M86.651 Other chronic osteomyelitis, right thigh; M86.652 Other chronic osteomyelitis, left thigh; M46.28 Osteomyelitis of vertebra, sacral and sacrococcygeal region; L89.890 Pressure ulcer of other site, unstageable; N31.9 Neuromuscular dysfunction of bladder, unspecified; E11.9 Type 2 diabetes mellitus without complications; C61 Malignant neoplasm of prostate; Z93.50 Unspecified cystostomy status; I25.10 Atherosclerotic heart disease of native coronary artery without angina pectoris; I10 Essential (primary) hypertension; E78.5 Hyperlipidemia, unspecified; I71.4 Abdominal aortic aneurysm, without rupture; J45.909 Unspecified asthma, uncomplicated; K21.9 Gastro-esophageal reflux disease without esophagitis; F41.8 Other specified anxiety disorders; Z95.1 Presence of aortocoronary bypass graft; Z87.891 Personal history of nicotine dependence; Z93.3 Colostomy status; R32 Unspecified urinary incontinence; Z79.84 Long term (current) use of oral hypoglycemic drugs
CPT/HCPCS: 2NBP; 72148; 75633; 87070; 87075; 87184; 36415; 76775; 81001; 82436; 87040; 87071; 87086; 87147; 88307; 93005; 93010; 93306; 96374; 96375; 99291; C1769; J0713; J1100; J2405; J3370; J3490; J7040; J7042

== ENCOUNTER 2017-04-10 10:38 | Inpatient (IN) | payer OTHER, MEDICARE ==
[~2017-04-10] VITALS: Ht 175.3 cm; Wt 85.7 kg
[~2017-04-10 10:38] MED LIST changes: +VANCOMYCIN1 GM/2001 IV
--- NOTE | 2017-04-10 10:42 | ED AMS/SEIZURE/WEAK/DIZZY ---
History of Present Illness General Chief Complaint: Altered Mental Status Stated Complaint: AMS Source: patient, old records, EMS Exam Limitations: no limitations Vital Signs & Intake/Output Vital Signs & Intake/Output Vital Signs Date Time Temp Pulse Resp B/P B/P Pulse O2 O2 Flow FiO2 Mean Ox Delivery Rate 04/11 1915 97 Room Air 04/11 1411 98.4 100 16 120/60 95 Room Air 04/11 0915 93 Room Air 04/11 0800 95 Room Air 04/11 0651 98.3 110 16 112/56 95 Room Air 04/11 0000 Room Air 04/10 2233 98.5 99 16 120/62 94 Room Air ED Intake and Output 04/11 0000 04/10 1200 Intake Total 690 Output Total 650 400 Balance 40 -400 Intake, IV 450 Intake, Oral 240 Output, Urine 650 400 Patient 190 lb 180 lb Weight Weight Reported by Patient Measurement Method Allergies Coded Allergies: ibuprofen (UNKNOWN 01/18/17) Reconcile Medications Acetaminophen (Q-Pap) 325 MG TABLET 2 TAB PO Q4H PRN PAIN/TEMP>/100 (Reported ) Acetaminophen (Acephen) 650 MG SUPP.RECT 1 SUPP VT Q4H PRN PAIN/TEMP>100 ( Reported) Aspirin (Ecotrin*) 81 MG TABLET.DR 1 TAB PO DAILY HEART/BLOOD (Reported) Atorvastatin Calcium (Lipitor) 10 MG TABLET 1 TAB PO QPM CHOLESTEROL ( Reported) Baclofen 10 MG TABLET 1 TAB PO DAILY spams (Reported) Ceftazidime 2 GRAM VIAL 2 GM IV Q8 ANTIBIOTIC, INFECTION (Reported) Cyanocobalamin (Vitamin B-12) (Vitamin B-12) 100 MCG TABLET 1 TAB PO DAILY SUPPLEMENT (Reported) Ergocalciferol (Vitamin D2) (Vitamin D2) 50,000 UNIT CAPSULE 1 CAP PO Q30D SUPPLEMENT (Reported) Furosemide (Lasix) 20 MG TABLET 1 TAB PO Q48 DIURETIC (Reported) Insulin Aspart, Recombinant (Novolog Flexpen) (Unknown Strength) INSULN.PEN ( Unknown Dose) SC BID DIABETES (Reported) Ipratropium/Albuterol Sulfate (Iprat-Albut 0.5-3(2.5) MG/3 Ml) 0.5 MG-3 MG (2.5 MG BASE)/3 ML AMPUL.NEB 1 VIAL INH TID RESPIRATORY (Reported) Levetiracetam (Keppra) 500 MG TABLET 1 TAB PO QAM seizures (Reported) Lisinopril (Zestril) 10 MG TABLET 1 TAB PO DAILY BP (Reported) Magnesium Hydroxide (Milk Of Magnesia) 400 MG/5 ML ORAL.SUSP 30 ML PO DAILY PRN CONSTIPATION (Reported) Melatonin 5 MG TABLET 1 TAB PO QHS SLEEP (Reported) Metformin HCl 500 MG TABLET 1 TAB PO BID DM (Reported) Mirtazapine 15 MG TABLET 0.5 TAB PO QHS UNKNOWN (Reported) Mometasone/Formoterol (Dulera 100 Mcg/5 Mcg Inhaler) 100 MCG-5 MCG/ACTUATION HFA.AER.AD 2 PUF INH BID RESPIRATORY (Reported) Multivitamin (Multi-Day Vitamins) 1 EACH TABLET 1 TAB PO DAILY SUPPLEMENT ( Reported) [place]-3/Dha/Epa/Fish Oil (Fish Oil 1,000 MG Softgel) 1,000 MG (120 MG-180 MG) CAPSULE 1 CAP PO DAILY SUPPLEMENT (Reported) Omeprazole 20 MG CAPSULE.DR 1 CAP PO DAILY GI (Reported) Oxycodone HCl 10 MG TABLET 1 TAB PO Q8H PAIN (Reported) Protein Supplement (Promod) 946 ML LIQUID 30 ML PO TID SUPPLEMENT (Reported) Psyllium Husk (Metamucil) 0.52 GRAM CAPSULE 1 CAP PO DAILY SUPPLEMENT ( Reported) Rivaroxaban (Xarelto) 20 MG TABLET 1 TAB PO DAILY Pumonary Embolism Saccharomyces Boulardii (Florastor) 250 MG CAPSULE 1 TAB PO QHS PROBIOTIC ( Reported) Tolterodine Tartrate (Detrol LA) 4 MG CAP.ER.24H 1 CAP PO BID BLADDER ( Reported) Tramadol HCl 50 MG TABLET 1 TAB PO BIDP PRN PAIN (Reported) Trazodone HCl 50 MG TABLET 0.5 TAB PO Q12H PRN UNKNOWN (Reported) Vancomycin/0.9 % Sod Chloride (Vancomycin 1 G/200ML-0.9% NaCl) 1 GRAM/200 ML FROZ.PIGGY 1,000 MG IV Q12 osteomyelitis Triage Nurses Notes Reviewed? yes Onset: Abrupt Duration: day(s): (1), constant Timing: recent history Injury Environment: home Severity: moderate Severity Numbers: 6 No Modifying Factors: none Associated Symptoms: denies HPI: 71 year old diabetes, coronary artery disease, PE on xarelto , paraplegia following spinal shock after surgery for an aortic aneurys suprapubic cystostomy and diverting colostomy, osteomyelitis treated with multiple courses of antibiotics currently on ceftaz vancomycin through a right upper extremity PICC line. The patient presents today from [facility] due to increasing confusion and restlessness and reports that he pulled his PICC line out at 6:30 this morning. On arrival the patient is alert and oriented 3 and offers no complaints. Per W 10 there's been no recent documented fevers (THEODORA MITCHELL) Past History Medical History Any Pertinent Medical History? see below for history Neurological: PARAPLEGIA STATUS POST SPINAL SHOCK POSTOP EENT: NONE Cardiovascular: CAD, hypertension, hyperlipidemia, ABDOMINAL ANEURYSM Respiratory: asthma, pulmonary embolism, pneumonia Gastrointestinal: GERD, upper GI bleed, C. 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 No (THEODORA MITCHELL) Review of Systems Review of Systems Constitutional: Reports: see HPI. All Other Systems: Reviewed and Negative Comments Review of systems: See HPI, All other systems negative. Constitutional, no chills no fever, no malaise HEENT: no sore throat no congestion, Cardiovascular: No chest pain , no palpitation Skin: no rashes, no change in skin Respiratory: No dyspnea no cough no sputum GI: No nausea no vomiting, no diarrhea : No dysuria Muscle skeletal: No joint pain, no back pain, no neck pain, Neurologic: No numbness confusion, no headache Psych: No stress Heme/endocrine: No bruising Immunology: No lymphadenopathy (THEODORA MITCHELL) Physical Exam Physical Exam General Appearance: well developed/nourished, alert, awake Comments: Well-developed well-nourished person in no acute distress HEENT: Normal EENT exam; PERRL, EOMI, HEAD is atraumatic. moist mucous membranes. Neck: Supple, normal range of motion Back: Nontender, Full range of motion Cardiovascular: Regular rate and rhythms no murmurs rubs Respiratory: No respiratory distress. Patient speaking in full complete sentences. Breath sounds clear to auscultation bilaterally: NO W/R/R Abdomen: Soft, cystostomy site is clean dry, no surrounding erythema, colsotomy site is nontender, clean no surrounding erytehma nontender nondistended, no appreciable organomegaly. Normal bowel sounds. No rebound/guarding, No appreciable enlargement of the abdominal aorta, No ascites. Extremity: No edema, full range of motion of extremities, normal and equal pulses bilaterally, 5 out of 5 strength noted to bilateral upper and lower extremities there is what appears to be a scabbed region tot he RUE, no visualized or palpated picc to the RUE Neuro: Alert oriented x3, motor sensory normal, There were no obvious focal neurologic abnormalities. Skin: No appreciable rash on exposed skin, skin is warm and dry. Psych: Mood and affect is normal, memory and judgment is normal. Core Measures ACS in differential dx? Yes CVA/TIA Diagnosis: No Severe Sepsis Present: No Septic Shock Present: No (RIP WATSON,THEODORA) Progress Differential Diagnosis: arrythmia, anemia, benign positional vertigo, CVA/stroke , dehydration, encephalitis, electrolyte imbalance, pneumonia, postural hypotension, subarachnoid Hem., UTI/pyelo, vertebrobasilar insuff Plan of Care: Orders Procedure Date/time Status CBC WITHOUT DIFFERENTIAL 04/12 0600 Active BASIC ELECTROLYTES PLUS BUN&CR 04/12 0600 Active URINE OSMOLALITY 04/11 1456 Active URINE LYTES, SPOT 04/11 1456 Active PHOSPHORUS 04/11 0925 Complete MAGNESIUM 04/11 0925 Complete CREATINE PHOSPHOKINASE 04/11 0925 Complete CBC WITHOUT DIFFERENTIAL 04/11 0837 Complete BASIC ELECTROLYTES PLUS BUN&CR 04/11 0837 Complete Lab Add-on Test 04/11 UNK Active Wound Care/Dressing 04/11 UNK Active Nursing Misc 04/11 UNK Active FingerStick- Glucose 04/11 UNK Active NUTRITIONAL CONSULT 04/11 UNK Active THERAPIST ORDERS 04/10 2114 Complete Nursing Misc 04/10 UNK Active Current Medications Sig/Mey Start time Last Medication Dose Stop Time Status Admin Atorvastatin Calcium 10 MG QPM 04/11 2200 CAN (Lipitor) Atorvastatin Calcium 10 MG 1700 04/11 1700 AC (Lipitor) Sodium Hypochlorite 1 HILARIA DAILY PRN 04/11 1700 AC Acetaminophen 1,000 MG Q6P PRN 04/11 1530 AC (Ofirmev) N/A 1 UNIT (No Carrier) Aspirin 81 MG DAILY 04/11 1000 AC (Aspirin) Collagenase 1 HILARIA DAILY 04/11 1000 AC 04/11 (Santyl) 1931 Cyanocobalamin 250 MCG DAILY 04/11 1000 AC (Vitamin B12) Levetiracetam 500 MG QAM 04/11 1000 AC (Keppra) Rivaroxaban 20 MG DAILY 04/11 1000 AC (Xarelto) Albuterol Sulfate 3 ML TID 04/10 2200 AC 04/11 (Proventil) 191 Ipratropium [place] 2.5 ML TID 04/10 2200 AC 04/11 (Atrovent) 191 Melatonin 5 MG AT BEDTIME 04/10 2200 AC 04/10 (Melatonin) 222 Mirtazapine 15 MG AT BEDTIME 04/10 2200 AC 04/10 (Remeron) 222 Baclofen 10 MG DAILY 04/10 1821 AC 04/10 (Lioresal 10MG 2226 Tablet) Omeprazole 20 MG DAILY AC 04/10 1820 AC 04/10 (Prilosec) 1854 Sodium Chloride 1,000 ML Q6H 04/10 1600 AC 04/11 (Normal Saline 0.9%) 1133 Laboratory Tests 04/11/17 1715: Urine Osmolality 365, Ur Random Creatinine Pending, Ur Random Sodium Pending, Ur Random Potassium Pending, Fraction Sodium Excret Pending 04/11/17 0925: Anion Gap 12, Estimated GFR 40 L, BUN/Creatinine Ratio 41.2 H, Phosphorus 5.6 H, Magnesium 2.1, Creatine Kinase < 20 L, CBC w Diff MAN DIFF ORDERED, RBC 3.16 L, MCV 81.3, MCH 25.5 L, RDW 17.4 H, MPV 6.9 L, Gran % 84.2 H, Lymphocytes % 4.8 L, Monocytes % 9.3, Eosinophils % 1.3, Basophils % 0.4, Absolute Granulocytes 12.7 H, Absolute Lymphocytes 0.7 L, Absolute Monocytes 1.4 H, Absolute Eosinophils 0.2, Absolute Basophils 0.1, Platelet Estimate INCREASED, Polychromasia 1+, Anisocytosis 1+, PUBS MCHC 31.4 L pt seen and evaltued by dr marin who agrees with plan, pt is without any complaints at is time Old records reviewed patient is chronically anemic H&H is at baseline. BUN and creatinine are elevated from previous I spoke with Dr. Saleh who evaluated the patient at the skilled nursing this morning he advised that he is concerned that the patient may be having a reaction to ceftazamine, the vanco has been held secondary to elevated trough's. He advised that the patient should be admitted to his service for neuro checks IV fluids new PICC placement Discussed the plan of care and all his lab results with the patient he agrees with plan, iv fluids running, wbc count trending down today. (RIP WATSON,THEODORA) Diagnostic Imaging: Viewed by Me: Radiology Read. Discussed w/RAD: Radiology Read. Radiology Impression: PATIENT: YOLANDA SUMMERS PRESENT AGE: 71 PATIENT ACCOUNT NO: [id number] : 46 LOCATION: [facility] ORDERING PHYSICIAN: THEODORA WATSON SERVICE DATE: 04/10/17 EXAM TYPE: RAD - XRY- PORTABLE CHEST XRAY EXAMINATION: XR PORTABLE CHEST CLINICAL INFORMATION: Confirm removal of peripheral inserted catheter. COMPARISON: 03/11/2017 TECHNIQUE: Portable frontal view of the chest was obtained. FINDINGS: The left diaphragm is chronically elevated and atelectasis present in the left lung base. The right lung is unremarkable. Cardiac silhouette is mildly enlarged, unchanged, and sternotomy wires are intact. The right arm peripherally inserted catheter has been removed and no residual catheter fragments are seen within the chest. There is mild osteoarthrosis of the glenohumeral joints and bilateral acromiohumeral distance narrowing, indicative of chronic rotator cuff tears. IMPRESSION: 1. The right arm peripherally inserted catheter is been removed. 2. The left diaphragm is chronically elevated and atelectasis. Is present within the left base. DICTATED BY: BAILEE RICKS MD DATE/TIME DICTATED:04/10/171156 TECHNOLOGY LAB TEACHER:JANNA DATE/TIME TRANSCRIBED:04/10/171156 CONFIDENTIAL, DO NOT COPY WITHOUT APPROPRIATE AUTHORIZATION. <Electronically signed in Other Vendor System> SIGNED BY: BAILEE RICKS MD 04/10/17 1204 Initial ED EKG: stach at100, no acute st seg changes, normal axis Prior EKG: unchanged (02/2017) Rhythm Strip: normal sinus rhythm (THEODORA MITCHELL) Departure Departure Time of Disposition: 1225 Disposition: STILL A PATIENT Condition: Stable Clinical Impression Primary Impression: Acute kidney injury Referrals: SLIM COLE MD (PCP/Family) Departure Forms: Customer Survey General Discharge Information Admission Note Spoke With: JEANNIE SALEH MD Documentation of Exam: Documentation of any treatments & extenuating circumstances including Concerns Regarding Discharge (functional status, medication knowledge or non-compliance, living conditions, etc.) that warrant an admission rather than observation: trend labs, IV fluids, IR consult for picc placement, premature discharge would be medically harmful (THEODORA MITCHELL) PA/LATHER APPRENTICE Co-Sign Statement Statement: ED Attending supervision documentation- [X] I saw and evaluated the patient. I have also reviewed all the pertinent lab results and diagnostic results. I agree with the findings and the plan of care as documented in the PA's/LATHER APPRENTICE's documentation. [X] I have reviewed the ED Record and agree with the PA's/LATHER APPRENTICE's documentation. [] Additions or exceptions (if any) to the PAs/LATHER APPRENTICE's note and plan are summarized below: [] (ZULY MULLIGAN,JAZMÍN)
[2017-04-10] MEDS ORDERED: CEFTAZIDIME2 GM IV (10:48)
[2017-04-10] MEDS ORDERED: NOVOLOG FL100 UNIT/1 SC (11:05)
[2017-04-10] MEDS ORDERED: TRAMADOL HCL50 M1 PO (11:07)
[2017-04-10 11:34] LABS: ABSOLUTE BASOPHIL COUNT 0 /CUMM (0.0-0.2); ABSOLUTE EOSINOPHIL COUNT 0.3 /CUMM (0.0-0.7); ABSOLUTE GRANULOCYTE CT 12.9 /CUMM (1.4-6.5); ABSOLUTE LYMPH COUNT 0.8 /CUMM (1.2-3.4); ABSOLUTE MONOCYTE COUNT 1.2 /CUMM (0.10-0.60); BASOPHIL % 0.2 % (0.0-2.0); EOSINOPHIL % 1.8 % (0-5); GRANULOCYTE % 84.9 % (42.2-75.2); HEMATOCRIT 23.5 % (42-52); MEAN CORPUSCULAR HGB 25.9 PG (27.0-31.0); MEAN CORPUSCULAR HGB CONC 31.8 G/DL (33.0-37.0); MEAN CORPUSCULAR VOLUME 81.2 FL (80.0-94.0); MEAN PLATELET VOLUME 6.8 FL (7.4-10.4); PLATELET COUNT 781 /CUMM (130-400); RBC DISTRIBUTION WIDTH 17.9 % (11.5-14.5); RED BLOOD CELL CT 2.89 /CUMM (4.70-6.10); WHITE BLOOD CELL COUNT 15.2 /CUMM (4.8-10.8)
--- NOTE | 2017-04-10 12:04 | RADIOLOGY REPORT ---
EXAMINATION: XR PORTABLE CHEST CLINICAL INFORMATION: Confirm removal of peripheral inserted catheter. COMPARISON: 03/11/2017 TECHNIQUE: Portable frontal view of the chest was obtained. FINDINGS: The left diaphragm is chronically elevated and atelectasis present in the left lung base. The right lung is unremarkable. Cardiac silhouette is mildly enlarged, unchanged, and sternotomy wires are intact. The right arm peripherally inserted catheter has been removed and no residual catheter fragments are seen within the chest. There is mild osteoarthrosis of the glenohumeral joints and bilateral acromiohumeral distance narrowing, indicative of chronic rotator cuff tears. IMPRESSION: 1. The right arm peripherally inserted catheter is been removed. 2. The left diaphragm is chronically elevated and atelectasis. Is present within the left base.
--- NOTE | 2017-04-10 12:07 | RADIOLOGY REPORT ---
EXAMINATION: XR HUMERUS, RIGHT CLINICAL INFORMATION: Question whether right upper extremity peripherally inserted catheter has been removed. COMPARISON: CXR from 03/11/2017. TECHNIQUE: AP and lateral views of the right humerus. FINDINGS: The peripherally inserted catheter has been removed and there are no residual catheter fragments within the upper arm. The right humerus is intact. There is mild osteophyte formation of the degenerated glenohumeral and acromioclavicular joints, and the humeral head abuts the undersurface of the acromion, indicative of a chronic rotator cuff tear. There is enthesophyte formation at the medial humeral epicondyle. IMPRESSION: The right arm peripherally inserted catheter has been removed.
--- NOTE | 2017-04-10 12:51 | History & Physical ---
MOOKIE MAGDALENO 04/10/17 1251: General Information and HPI MD Statement: I have seen and personally examined YOLANDA SUMMERS and documented this H&P. The patient is a 71 year old M who presented with a patient stated chief complaint of []. Source of Information: patient, old records Exam Limitations: confusion, poor historian History of Present Illness: This is a 71-year-old gentleman, custodial resident, with past medical history significant for diabetes, coronary artery disease, recently diagnosed with a pulmonary embolism and paraplegia following spinal shock after surgery for an aortic aneurysm , status post placement of a suprapubic cystostomy and diverting colostomy, chronic indwelling suprapubic catheter, with underlying osteomyelitis treated with multiple courses of antibiotics, with an ostectomy also performed, MRSA isolated from the sputum, GI bleed secondary to a fundic ulcer, persistent leukocytosis, thought possibly secondary to the MRSA, history of diarrhea and C. difficile positive PCR today by mouth Alida, admitted in February 2017 to [facility] for ischemia and osteomyelitis, with blood cultures growing MRSA, maintained on IV vancomycin and IV ceftazidime through right upper extremity PICC line prior to admission, who was sent to the hospital from extended care facility for altered mental status, confusion, increased restlessness also pulled out his PICC line approximately 6:30 AM this morning. At the time of our physical exam, patient is alert, but poor historian. Does not remember events this morning. Denies any fever, chills, headache, dizziness , lightheadedness, nausea, vomiting, abdominal pain. Able to follow commands. Allergies/Medications Allergies: Coded Allergies: ibuprofen (UNKNOWN 01/18/17) Home Med list Acetaminophen (Q-Pap) 325 MG TABLET 2 TAB PO Q4H PRN PAIN/TEMP>/100 (Reported ) Acetaminophen (Acephen) 650 MG SUPP.RECT 1 SUPP MI Q4H PRN PAIN/TEMP>100 ( Reported) Aspirin (Ecotrin*) 81 MG TABLET.DR 1 TAB PO DAILY HEART/BLOOD (Reported) Atorvastatin Calcium (Lipitor) 10 MG TABLET 1 TAB PO QPM CHOLESTEROL ( Reported) Baclofen 10 MG TABLET 1 TAB PO DAILY spams (Reported) Ceftazidime 2 GRAM VIAL 2 GM IV Q8 ANTIBIOTIC, INFECTION (Reported) Cyanocobalamin (Vitamin B-12) (Vitamin B-12) 100 MCG TABLET 1 TAB PO DAILY SUPPLEMENT (Reported) Ergocalciferol (Vitamin D2) (Vitamin D2) 50,000 UNIT CAPSULE 1 CAP PO Q30D SUPPLEMENT (Reported) Furosemide (Lasix) 20 MG TABLET 1 TAB PO Q48 DIURETIC (Reported) Insulin Aspart, Recombinant (Novolog Flexpen) (Unknown Strength) INSULN.PEN ( Unknown Dose) SC BID DIABETES (Reported) Ipratropium/Albuterol Sulfate (Iprat-Albut 0.5-3(2.5) MG/3 Ml) 0.5 MG-3 MG (2.5 MG BASE)/3 ML AMPUL.NEB 1 VIAL INH TID RESPIRATORY (Reported) Levetiracetam (Keppra) 500 MG TABLET 1 TAB PO QAM seizures (Reported) Lisinopril (Zestril) 10 MG TABLET 1 TAB PO DAILY BP (Reported) Magnesium Hydroxide (Milk Of Magnesia) 400 MG/5 ML ORAL.SUSP 30 ML PO DAILY PRN CONSTIPATION (Reported) Melatonin 5 MG TABLET 1 TAB PO QHS SLEEP (Reported) Metformin HCl 500 MG TABLET 1 TAB PO BID DM (Reported) Mirtazapine 15 MG TABLET 0.5 TAB PO QHS UNKNOWN (Reported) Mometasone/Formoterol (Dulera 100 Mcg/5 Mcg Inhaler) 100 MCG-5 MCG/ACTUATION HFA.AER.AD 2 PUF INH BID RESPIRATORY (Reported) Multivitamin (Multi-Day Vitamins) 1 EACH TABLET 1 TAB PO DAILY SUPPLEMENT ( Reported) [place]-3/Dha/Epa/Fish Oil (Fish Oil 1,000 MG Softgel) 1,000 MG (120 MG-180 MG) CAPSULE 1 CAP PO DAILY SUPPLEMENT (Reported) Omeprazole 20 MG CAPSULE.DR 1 CAP PO DAILY GI (Reported) Oxycodone HCl 10 MG TABLET 1 TAB PO Q8H PAIN (Reported) Protein Supplement (Promod) 946 ML LIQUID 30 ML PO TID SUPPLEMENT (Reported) Psyllium Husk (Metamucil) 0.52 GRAM CAPSULE 1 CAP PO DAILY SUPPLEMENT ( Reported) Rivaroxaban (Xarelto) 20 MG TABLET 1 TAB PO DAILY Pumonary Embolism Saccharomyces Boulardii (Florastor) 250 MG CAPSULE 1 TAB PO QHS PROBIOTIC ( Reported) Tolterodine Tartrate (Detrol LA) 4 MG CAP.ER.24H 1 CAP PO BID BLADDER ( Reported) Tramadol HCl 50 MG TABLET 1 TAB PO BIDP PRN PAIN (Reported) Trazodone HCl 50 MG TABLET 0.5 TAB PO Q12H PRN UNKNOWN (Reported) Vancomycin/0.9 % Sod Chloride (Vancomycin 1 G/200ML-0.9% NaCl) 1 GRAM/200 ML FROZ.PIGGY 1,000 MG IV Q12 osteomyelitis Past History Travel History Traveled to [place] past 21 day No Medical History Neurological: PARAPLEGIA STATUS POST SPINAL SHOCK POSTOP EENT: NONE Cardiovascular: CAD, hypertension, hyperlipidemia, ABDOMINAL ANEURYSM Respiratory: asthma, pulmonary embolism, pneumonia Gastrointestinal: GERD, upper GI bleed, C. 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 History of MRSA: Yes History of VRE: Yes History of CDIFF: No Surgical History Surgical History: CABG, AAA repair x2 once 2002, and 2013 status post diverting colostomy status post suprapubic cystostomy status post pubic cystostomy status post diverting colostomy SPT placement Past Family/Social History Family History Relations & Conditions if any MOTHER FH: coronary artery disease FH: diabetes mellitus BROTHER FH: diabetes mellitus SISTER Psychosocial History Services at Home: Home Health Aide, Nursing Primary Language: Trinidadian ETOH Use: denies use Functional Ability ADLs Independent: eating. Needs Assist: dressing, toileting, bathing. Ambulation: non-ambulatory IADLs Needs Assist: shopping, housework, finances, food prep, telephone, transportation, medication admin. Review of Systems Review of Systems Constitutional: Reports: no symptoms. Exam & Diagnostic Data Last 24 Hrs of Vital Signs/I&O Vital Signs Date Time Temp Pulse Resp B/P B/P Pulse O2 O2 Flow FiO2 Mean Ox Delivery Rate 04/10 1348 97.2 95 16 135/60 96 Room Air 04/10 1242 97.9 101 22 101/57 99 Room Air 04/10 1045 97.8 104 18 113/62 99 Room Air Intake & Output 04/10 1600 04/10 0800 04/10 0000 Intake Total Output Total 400 Balance -400 Output, Urine 400 Patient 180 lb Weight Physical Exam General Appearance Alert, Oriented X3, Cooperative, No Acute Distress Skin Decubitus ulcer on lower back, ulcers on heels b/l Skin Temp/Moisture Exam: Warm/Dry HEENT Atraumatic, PERRLA, EOMI, Mucous Membr. moist/pink Neck Supple, No JVD, No thryomegaly, +2 Carotid Pulse wo Bruit, No LAD Lymphatic Axillary nl, Cervical nl Cardiovascular Regular Rate, Normal S1, Normal S2, No Murmurs, Gallops, Rubs Lungs Clear to Auscultation, Normal Air Movement Abdomen Normal Bowel Sounds, Soft, No Tenderness, No Hepatospenomegaly, No Masses, suprapubic catheter in place Colostomy bag in place; left Neurological Normal Speech, Strength at 5/5 X4 Ext, Normal Tone, Sensation Intact, Cranial Nerves 3-12 NL, Reflexes 2+, alerts Oriented to person only Extremities No Clubbing, No Cyanosis, No Edema, Normal Pulses Vascular Normal Pulses, Pulses Symmetrical Last 24 Hrs of Labs/Perfecto: Laboratory Tests 04/10/17 1343: Lactic Acid Cancelled 04/10/17 1130: Urine Color YEL, Urine Clarity HAZY H, Urine pH 6.0, Ur Specific [place] 1.020, Urine Protein 30 H, Urine Ketones NEG, Urine Nitrite NEG, Urine Bilirubin NEG, Urine Urobilinogen 0.2, Ur Leukocyte Esterase MOD H, Ur Microscopic SEDIMENT EXAMINED, Urine RBC 1-3, Urine WBC 15-25 H, Urine Bacteria FEW H, Micro UA Comment , Urine Hemoglobin SMALL H, Urine Glucose NEG 04/10/17 1110: Anion Gap 15, Estimated GFR 33 L, BUN/Creatinine Ratio 36.5 H, Glucose 76, Lactic Acid 0.9, Calcium 9.6, Total Bilirubin 0.4, AST 12 L, ALT 20 L, Alkaline Phosphatase 152 H, Troponin I < 0.01, Total Protein 7.5, Albumin 2.9 L, Globulin 4.6 H, Albumin/Globulin Ratio 0.6 L, CBC w Diff MAN DIFF ORDERED, RBC 2.89 L, MCV 81.2, MCH 25.9 L, RDW 17.9 H, MPV 6.8 L, Gran % 84.9 H, Lymphocytes % 5.3 L, Monocytes % 7.8, Eosinophils % 1.8, Basophils % 0.2, Absolute Granulocytes 12.9 H, Absolute Lymphocytes 0.8 L, Absolute Monocytes 1.2 H, Absolute Eosinophils 0.3, Absolute Basophils 0, Platelet Estimate INCREASED, Hypochromic-Microcytic 2+, Anisocytosis 1+, PUBS MCHC 31.8 L Microbiology 04/10 1130 URINE ROUT: Urine Culture - RECD 04/10 1129 BLOOD: Blood Culture - RECD 04/10 1110 BLOOD: Blood Culture - RECD Diagnostic Data EKG Results Sinus tachycardia, rate 105, no ST-T wave abnormalities, QTC 439. CXR Results MPRESSION: 1. The right arm peripherally inserted catheter is been removed. 2. The left diaphragm is chronically elevated and atelectasis. Is present within the left base. Other Results EXAM TYPE: RAD - XRY-HUMERUS, RIGHT IMPRESSION: The right arm peripherally inserted catheter has been removed. Assessment/Plan Assessment: This is a 71-year-old gentleman, custodial resident, with past medical history significant for diabetes, coronary artery disease, pulmonary embolism and paraplegia following spinal shock after surgery for an aortic aneurysm , status post placement of a suprapubic cystostomy and diverting colostomy, chronic indwelling suprapubic catheter, chronic osteomyelitis, with blood cultures growing MRSA, maintained on IV vancomycin and IV ceftazidime through right upper extremity PICC line prior to admission, who was sent to the hospital from extended care facility for altered mental status, confusion, increased restlessness also pulled out his PICC line approximately 6:30 AM this morning. Afebrile, tachycardic, stable blood pressure. Labs significant for leukocytosis to 15.2 (improved compared to 04/08/2017 which was 19.3), noted to have ERICKA, creatinine levels 2(baseline 0.24 Feb 2017), elevated alkaline phosphatase, positive UA. Blood cultures and urine culture were obtained in the ED. Received IV fluids. Problem list #Altered mental status #Chronic osteomyelitis #Sepsis:Positive SIRS criteria given tachycardia and leukocytosis; source of infection osteomyelitis versus urological origin given positive UA. Plan * Admit to general medicine * Vital signs per protocol * Please follow ESR, ammonia level, Vanco trough, stool for C. difficile * Follow-up culture results * Please follow ID recommendations. * Consider podiatry evaluation for heel ulcers * DVT prophylaxis: Patient is on Xarelto * Patient is full code As Ranked By This Provider Problem List: 1. Osteomyelitis 2. Altered mental status Core Measures/Miscellaneous Acute Coronary Syndrome ACS Diagnosis: No Cerebrovascular Accident CVA/TIA Diagnosis: No Congestive Heart Failure CHF Diagnosis: No VTE (View Protocol) VTE Risk Factors: Age > 40 No Mech VTE prophylaxis d/t: No contraindications No VTE Pharm Prophylaxis d/t: No contraindications VTE Diagnosis: No VTE Type: NONE VTE Confirmed by (Test): NONE Sepsis (View Protocol) Severe Sepsis Present: No BC x2: Yes Lactic Acid x2: Yes IV ABX Broad Spectrum: Yes Septic Shock Septic Shock Present: No Miscellaneous Documentation Attending Case Discussed With: JEANNIE ANN MD Primary Care Physician: SLIM COLE MD Patient sees these Specialists . Level of Patient Care: General Medicine JEANNIE ANN MD 04/11/17 0929: Attending MD Review Statement Attending Statement Attending MD Statement: examined this patient, discuss w/resident/PA/NATIONAL SALES MANAGER, agreed w/resident/PA/NATIONAL SALES MANAGER, reviewed EMR data (avail)
[2017-04-10 14:51] VITALS: BP 128/56
--- NOTE | 2017-04-10 15:43 | Cons- Infect Disease ---
General Information and HPI Consulting Request Date of Consult: 04/10/17 Requested By: JEANNIE ANN MD Reason for Consult: Encephalopathy Source of Information: patient, old records Exam Limitations: confusion History of Present Illness: This is a 71-year-old man, senior care resident, with diabetes, coronary artery disease, pulmonary embolism, maintained on Xarelto, with several recent hospitalizations for pneumonia, C. difficile, and upper GI bleed, with a gastric ulcer noted on endoscopy, paraplegia following spinal shock after surgery for an aortic aneurysm over 4 years prior to admission, with chronic sacral and bilateral ischial decubiti/osteomyelitis, status post diverting colostomy and suprapubic cystostomy 5 months prior to admission, treated with multiple courses of antibiotics and debridements, most recently one month prior to admission after he was hospitalized with increasing shortness of breath, low-grade fever and confusion, found to have MRSA bacteremia felt to be secondary to acute, superimposed on chronic, osteomyelitis of the sacrum and bilateral ischial which were found on MRI, status post debridement of all of these areas 4 weeks prior to admission, with cultures positive for MRSA and Pseudomonas, treated with Vancomycin and Ceftazidime with a PICC inserted in the right upper extremity, with elevated Vancomycin trough levels noted since discharge, with no information available regarding adjustment of his dose, admitted today after he was sent to the emergency room because of confusion and agitation resulting in his pulling out his PICC this morning. On admission he was afebrile. He was noted to be guaiac positive. At present he is unable to provide a reliable history as he appears to be confused and disoriented to place. He does report left chest pain with movement and an occasional cough and dyspnea. Allergies/Medications Allergies: Coded Allergies: ibuprofen (UNKNOWN 01/18/17) Home Med List: Acetaminophen (Q-Pap) 325 MG TABLET 2 TAB PO Q4H PRN PAIN/TEMP>/100 (Reported ) Acetaminophen (Acephen) 650 MG SUPP.RECT 1 SUPP DE Q4H PRN PAIN/TEMP>100 ( Reported) Aspirin (Ecotrin*) 81 MG TABLET.DR 1 TAB PO DAILY HEART/BLOOD (Reported) Atorvastatin Calcium (Lipitor) 10 MG TABLET 1 TAB PO QPM CHOLESTEROL ( Reported) Baclofen 10 MG TABLET 1 TAB PO DAILY spams (Reported) Ceftazidime 2 GRAM VIAL 2 GM IV Q8 ANTIBIOTIC, INFECTION (Reported) Cyanocobalamin (Vitamin B-12) (Vitamin B-12) 100 MCG TABLET 1 TAB PO DAILY SUPPLEMENT (Reported) Ergocalciferol (Vitamin D2) (Vitamin D2) 50,000 UNIT CAPSULE 1 CAP PO Q30D SUPPLEMENT (Reported) Furosemide (Lasix) 20 MG TABLET 1 TAB PO Q48 DIURETIC (Reported) Insulin Aspart, Recombinant (Novolog Flexpen) (Unknown Strength) INSULN.PEN ( Unknown Dose) SC BID DIABETES (Reported) Ipratropium/Albuterol Sulfate (Iprat-Albut 0.5-3(2.5) MG/3 Ml) 0.5 MG-3 MG (2.5 MG BASE)/3 ML AMPUL.NEB 1 VIAL INH TID RESPIRATORY (Reported) Levetiracetam (Keppra) 500 MG TABLET 1 TAB PO QAM seizures (Reported) Lisinopril (Zestril) 10 MG TABLET 1 TAB PO DAILY BP (Reported) Magnesium Hydroxide (Milk Of Magnesia) 400 MG/5 ML ORAL.SUSP 30 ML PO DAILY PRN CONSTIPATION (Reported) Melatonin 5 MG TABLET 1 TAB PO QHS SLEEP (Reported) Metformin HCl 500 MG TABLET 1 TAB PO BID DM (Reported) Mirtazapine 15 MG TABLET 0.5 TAB PO QHS UNKNOWN (Reported) Mometasone/Formoterol (Dulera 100 Mcg/5 Mcg Inhaler) 100 MCG-5 MCG/ACTUATION HFA.AER.AD 2 PUF INH BID RESPIRATORY (Reported) Multivitamin (Multi-Day Vitamins) 1 EACH TABLET 1 TAB PO DAILY SUPPLEMENT ( Reported) [place]-3/Dha/Epa/Fish Oil (Fish Oil 1,000 MG Softgel) 1,000 MG (120 MG-180 MG) CAPSULE 1 CAP PO DAILY SUPPLEMENT (Reported) Omeprazole 20 MG CAPSULE.DR 1 CAP PO DAILY GI (Reported) Oxycodone HCl 10 MG TABLET 1 TAB PO Q8H PAIN (Reported) Protein Supplement (Promod) 946 ML LIQUID 30 ML PO TID SUPPLEMENT (Reported) Psyllium Husk (Metamucil) 0.52 GRAM CAPSULE 1 CAP PO DAILY SUPPLEMENT ( Reported) Rivaroxaban (Xarelto) 20 MG TABLET 1 TAB PO DAILY Pumonary Embolism Saccharomyces Boulardii (Florastor) 250 MG CAPSULE 1 TAB PO QHS PROBIOTIC ( Reported) Tolterodine Tartrate (Detrol LA) 4 MG CAP.ER.24H 1 CAP PO BID BLADDER ( Reported) Tramadol HCl 50 MG TABLET 1 TAB PO BIDP PRN PAIN (Reported) Trazodone HCl 50 MG TABLET 0.5 TAB PO Q12H PRN UNKNOWN (Reported) Vancomycin/0.9 % Sod Chloride (Vancomycin 1 G/200ML-0.9% NaCl) 1 GRAM/200 ML FROZ.PIGGY 1,000 MG IV Q12 osteomyelitis Past History Travel History Traveled to [place] past 21 day No Medical History Neurological: PARAPLEGIA STATUS POST SPINAL SHOCK POSTOP EENT: NONE Cardiovascular: CAD, hypertension, hyperlipidemia, ABDOMINAL ANEURYSM Respiratory: asthma, pulmonary embolism, pneumonia Gastrointestinal: GERD, upper GI bleed, C. 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 Needs Assist: dressing, toileting, bathing. Ambulation: non-ambulatory IADLs Needs Assist: shopping, housework, finances, food prep, telephone, transportation, medication admin. Review of Systems Review of Systems Cardiovascular: Reports: chest pain. Respiratory: Reports: cough, short of breath. GI: Denies: diarrhea. All Other Systems: Reviewed and Negative Exam & Diagnostic Data Last 24 Hrs of Vital Signs/I&O Vital Signs Date Time Temp Pulse Resp B/P B/P Pulse O2 O2 Flow FiO2 Mean Ox Delivery Rate 04/10 1451 97.0 90 16 128/56 04/10 1348 97.2 95 16 135/60 96 Room Air 04/10 1242 97.9 101 22 101/57 99 Room Air 04/10 1045 97.8 104 18 113/62 99 Room Air Intake & Output 04/10 1600 04/10 0800 04/10 0000 Intake Total Output Total 400 Balance -400 Output, Urine 400 Patient 180 lb Weight Physical Exam Other Physical Findings: He is mildly lethargic but responsive in no acute distress. He is oriented to person but not to place. He is afebrile. Skin reveals no rash. HEENT exam is negative. Neck is supple with no adenopathy. Lungs are clear. Heart regular rhythm with a 2/6 systolic ejection murmur. Abdomen is distended, nontender with positive bowel sounds; colostomy in place; suprapubic catheter in place with no inflammation at the site. Back sacral decubitus mostly clean, with one area of necrosis with no surrounding erythema; left ischial decubitus clean with no necrosis; right ischial decubitus clean with no surrounding erythema. Extremities bilateral heel decubiti, with drainage from the left, with no erythema; no cyanosis, clubbing or edema. Neuro paraplegia. Last 24 Hours of Lab Results: Laboratory Tests 04/10 04/10 1343 1130 Chemistry Lactic Acid Cancelled Urines Urine Color (YEL,AMB,STR) YEL Urine Clarity (CLEAR) HAZY H Urine pH (5.0 - 8.0) 6.0 Ur Specific [place] (1.001 - 1.035) 1.020 Urine Protein (NEG,<30 MG/DL) 30 H Urine Ketones (NEG) NEG Urine Nitrite (NEG) NEG Urine Bilirubin (NEG) NEG Urine Urobilinogen (0.1 - 1.0 EU/dl) 0.2 Ur Leukocyte Esterase (NEG) MOD H Ur Microscopic SEDIMENT EXAMINED Urine RBC (0 - 5 /HPF) 1-3 Urine WBC (0 - 2 /HPF) 15-25 H Urine Bacteria (NEG/NONE) FEW H Micro UA Comment Urine Hemoglobin (NEG) SMALL H Urine Glucose (N MG/DL) NEG 04/10 1110 Chemistry Sodium (137 - 145 mmol/L) 139 Potassium (3.5 - 5.1 mmol/L) 4.7 Chloride (98 - 107 mmol/L) 105 Carbon Dioxide (22 - 30 mmol/L) 19 L Anion Gap (5 - 16) 15 BUN (9 - 20 mg/dL) 73 H Creatinine (0.7 - 1.2 mg/dL) 2.0 H Estimated GFR (>60 ml/min) 33 L BUN/Creatinine Ratio (7 - 25 %) 36.5 H Glucose (65 - 99 mg/dL) 76 Lactic Acid (0.7 - 2.1 mmol/L) 0.9 Calcium (8.4 - 10.2 mg/dL) 9.6 Total Bilirubin (0.2 - 1.3 mg/dL) 0.4 AST (17 - 59 U/L) 12 L ALT (21 - 72 U/L) 20 L Alkaline Phosphatase (< 127 U/L) 152 H Troponin I (<0.11 ng/ml) < 0.01 Total Protein (6.3 - 8.2 g/dL) 7.5 Albumin (3.5 - 5.0 g/dL) 2.9 L Globulin (1.9 - 4.2 gm/dL) 4.6 H Albumin/Globulin Ratio (1.1 - 2.2 %) 0.6 L Hematology CBC w Diff MAN DIFF ORDERED WBC (4.8 - 10.8 /CUMM) 15.2 H RBC (4.70 - 6.10 /CUMM) 2.89 L Hgb (14.0 - 18.0 G/DL) 7.5 L Hct (42 - 52 %) 23.5 L MCV (80.0 - 94.0 FL) 81.2 MCH (27.0 - 31.0 PG) 25.9 L RDW (11.5 - 14.5 %) 17.9 H Plt Count (130 - 400 /CUMM) 781 H MPV (7.4 - 10.4 FL) 6.8 L Gran % (42.2 - 75.2 %) 84.9 H Lymphocytes % (20.5 - 51.1 %) 5.3 L Monocytes % (1.7 - 9.3 %) 7.8 Eosinophils % (0 - 5 %) 1.8 Basophils % (0.0 - 2.0 %) 0.2 Absolute Granulocytes (1.4 - 6.5 /CUMM) 12.9 H Absolute Lymphocytes (1.2 - 3.4 /CUMM) 0.8 L Absolute Monocytes (0.10 - 0.60 /CUMM) 1.2 H Absolute Eosinophils (0.0 - 0.7 /CUMM) 0.3 Absolute Basophils (0.0 - 0.2 /CUMM) 0 Platelet Estimate (ADEQUATE) INCREASED Hypochromic-Microcytic 2+ Anisocytosis 1+ PUBS MCHC (33.0 - 37.0 G/DL) 31.8 L Last 24 Hours of Perfecto Results: Blood cultures 2 April 10 pending Urine culture April 10 pending Diagnostic Data Recent Imaging Findings: Chest x-ray, personally reviewed, reveals an elevated diaphragm with left basilar atelectasis; right lower lobe atelectasis Assessment/Plan Assessment/Plan Impression: This is a 71-year-old man with paraplegia, diabetes, coronary artery disease, pulmonary embolism, maintained on Xarelto, with bilateral ischial and sacral decubiti, status post multiple courses of antibiotics and debridements for osteomyelitis, most recently when he was hospitalized one month prior to admission, at which time he was found to have MRSA bacteremia, with MRSA and Pseudomonas also isolated from the bone cultures, treated with Vancomycin and Ceftazidime with no improvement in his ESR and with persistently elevated Vancomycin trough levels, admitted today with confusion and restlessness, having pulled out his PICC, found to be afebrile with a leukocytosis and acute renal failure. The etiology of his encephalopathy is unclear. He is afebrile but he does have an elevated white blood cell count, which might suggest the possibility of sepsis, with possible sources including the urinary tract, given his pyuria, though this is expected with his suprapubic catheter, the chronic sacral and ischial decubiti, though they do not appear infected, the heels, with drainage from the left heel, though there is no surrounding erythema, the lungs, with left chest pressure, cough and shortness of breath and C. difficile, given his prolonged course of antibiotics. He has been chronically anemic, and stools are reportedly guaiac positive, which may warrant further evaluation with his history of a fundic ulcer 2 months prior to admission. The renal failure may well be secondary to the Vancomycin, given the persistently elevated trough levels, or the Ceftazidime, though he has no eosinophils to suggest an interstitial nephritis, and, at this point, it would be best to discontinue the antibiotics. He has received 5 weeks of Vancomycin to date, and, though the plan was for a 6-8 week course of Vancomycin, his ESR has not decreased, suggesting a poor response to antibiotics. Suggestion: 1. Renal evaluation 2. X-rays of both heels 3. Podiatry evaluation for his bilateral heel decubiti 4. Plastic surgery reevaluation of his sacral and bilateral ischial decubiti 5. Stool for C. difficile if diarrhea 6. Consider GI input if stools remain guaiac positive or his anemia worsens 7. Follow-up recent cultures 8. Would follow off antibiotics pending above Consult Acknowledgment - Thank you for your consult request.
[2017-04-10 16:00] VITALS: BP 128/56
[2017-04-10 18:00] VITALS: BP 128/56
--- NOTE | 2017-04-10 18:02 | Cons- Podiatry ---
General Information and HPI Consulting Request Date of Consult: 04/10/17 Requested By: JEANNIE ANN MD History of Present Illness: Mr. Peterson is a 71-year-old male with an extensive past medical history who including a 4 year history of paraplegia associated with an abdominal aortic aneurysm repair. The patient is a resident at a [facility] and was noted on physical exam to have pressure ulcers to the posterior aspects of both his left and right heels. The patient denies any specific complaints associated with his feet. Allergies/Medications Allergies: Coded Allergies: ibuprofen (UNKNOWN 01/18/17) Home Med List: Acetaminophen (Q-Pap) 325 MG TABLET 2 TAB PO Q4H PRN PAIN/TEMP>/100 (Reported ) Acetaminophen (Acephen) 650 MG SUPP.RECT 1 SUPP SC Q4H PRN PAIN/TEMP>100 ( Reported) Aspirin (Ecotrin*) 81 MG TABLET.DR 1 TAB PO DAILY HEART/BLOOD (Reported) Atorvastatin Calcium (Lipitor) 10 MG TABLET 1 TAB PO QPM CHOLESTEROL ( Reported) Baclofen 10 MG TABLET 1 TAB PO DAILY spams (Reported) Ceftazidime 2 GRAM VIAL 2 GM IV Q8 ANTIBIOTIC, INFECTION (Reported) Cyanocobalamin (Vitamin B-12) (Vitamin B-12) 100 MCG TABLET 1 TAB PO DAILY SUPPLEMENT (Reported) Ergocalciferol (Vitamin D2) (Vitamin D2) 50,000 UNIT CAPSULE 1 CAP PO Q30D SUPPLEMENT (Reported) Furosemide (Lasix) 20 MG TABLET 1 TAB PO Q48 DIURETIC (Reported) Insulin Aspart, Recombinant (Novolog Flexpen) (Unknown Strength) INSULN.PEN ( Unknown Dose) SC BID DIABETES (Reported) Ipratropium/Albuterol Sulfate (Iprat-Albut 0.5-3(2.5) MG/3 Ml) 0.5 MG-3 MG (2.5 MG BASE)/3 ML AMPUL.NEB 1 VIAL INH TID RESPIRATORY (Reported) Levetiracetam (Keppra) 500 MG TABLET 1 TAB PO QAM seizures (Reported) Lisinopril (Zestril) 10 MG TABLET 1 TAB PO DAILY BP (Reported) Magnesium Hydroxide (Milk Of Magnesia) 400 MG/5 ML ORAL.SUSP 30 ML PO DAILY PRN CONSTIPATION (Reported) Melatonin 5 MG TABLET 1 TAB PO QHS SLEEP (Reported) Metformin HCl 500 MG TABLET 1 TAB PO BID DM (Reported) Mirtazapine 15 MG TABLET 0.5 TAB PO QHS UNKNOWN (Reported) Mometasone/Formoterol (Dulera 100 Mcg/5 Mcg Inhaler) 100 MCG-5 MCG/ACTUATION HFA.AER.AD 2 PUF INH BID RESPIRATORY (Reported) Multivitamin (Multi-Day Vitamins) 1 EACH TABLET 1 TAB PO DAILY SUPPLEMENT ( Reported) [place]-3/Dha/Epa/Fish Oil (Fish Oil 1,000 MG Softgel) 1,000 MG (120 MG-180 MG) CAPSULE 1 CAP PO DAILY SUPPLEMENT (Reported) Omeprazole 20 MG CAPSULE.DR 1 CAP PO DAILY GI (Reported) Oxycodone HCl 10 MG TABLET 1 TAB PO Q8H PAIN (Reported) Protein Supplement (Promod) 946 ML LIQUID 30 ML PO TID SUPPLEMENT (Reported) Psyllium Husk (Metamucil) 0.52 GRAM CAPSULE 1 CAP PO DAILY SUPPLEMENT ( Reported) Rivaroxaban (Xarelto) 20 MG TABLET 1 TAB PO DAILY Pumonary Embolism Saccharomyces Boulardii (Florastor) 250 MG CAPSULE 1 TAB PO QHS PROBIOTIC ( Reported) Tolterodine Tartrate (Detrol LA) 4 MG CAP.ER.24H 1 CAP PO BID BLADDER ( Reported) Tramadol HCl 50 MG TABLET 1 TAB PO BIDP PRN PAIN (Reported) Trazodone HCl 50 MG TABLET 0.5 TAB PO Q12H PRN UNKNOWN (Reported) Vancomycin/0.9 % Sod Chloride (Vancomycin 1 G/200ML-0.9% NaCl) 1 GRAM/200 ML FROZ.PIGGY 1,000 MG IV Q12 osteomyelitis Past History Medical History Neurological: PARAPLEGIA STATUS POST SPINAL SHOCK POSTOP EENT: NONE Cardiovascular: CAD, hypertension, hyperlipidemia, ABDOMINAL ANEURYSM Respiratory: asthma, pulmonary embolism, pneumonia Gastrointestinal: GERD, upper GI bleed, C. 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 Needs Assist: dressing, toileting, bathing. Ambulation: non-ambulatory IADLs Needs Assist: shopping, housework, finances, food prep, telephone, transportation, medication admin. Review of Systems Review of Systems: Unremarkable except for the noted discharge and illness Exam & Diagnostic Data Vital Signs and I&O Vital Signs Date Time Temp Pulse Resp B/P B/P Pulse O2 O2 Flow FiO2 Mean Ox Delivery Rate 04/10 1600 97.0 90 16 128/56 96 Room Air 04/10 1451 97.0 90 16 128/56 04/10 1348 97.2 95 16 135/60 96 Room Air 04/10 1242 97.9 101 22 101/57 99 Room Air 04/10 1045 97.8 104 18 113/62 99 Room Air Intake & Output 04/10 1600 04/10 0800 04/10 0000 / 1600 04/09 0800 04/09 0000 Intake Total Output Total 400 Balance -400 Output, Urine 400 Patient 190 lb Weight Weight Reported by Patient Measurement Method Physical Exam: Deep tissue injury noted to the posterior aspect of both the left and right heels. Minimal serous drainage noted to the left heel. No active drainage identified to the right heel. No probing or undermining identified. No fluctuance or crepitus noted. No surrounding cellulitis noted. Assessment/Plan Assessment/Plan Heel decubiti noted left and right feet. Strict offloading with Santyl and Xeroform daily. Consider bilateral heel x-rays to rule out any deep infectious process. Consult Acknowledgment - Thank you for your consult request. Attending MD Review Statement Attending Statement Attending MD Statement: examined this patient
--- NOTE | 2017-04-10 19:05 | RADIOLOGY REPORT ---
EXAMINATION: XR CALCANEUS, LEFT CLINICAL INFORMATION: Chronic ulcers. COMPARISON: None TECHNIQUE: Lateral and axial views of the left calcaneus were obtained. FINDINGS: There is osteopenia. No bone destruction or periosteal reaction or focal bone lesion to suggest osteomyelitis. No air in the soft tissues. IMPRESSION: No radiographic evidence of osteomyelitis.
--- NOTE | 2017-04-10 19:07 | RADIOLOGY REPORT ---
EXAMINATION: XR CALCANEUS, right CLINICAL INFORMATION: Chronic ulcers. COMPARISON: None TECHNIQUE: Lateral and axial views of the right calcaneus were obtained. FINDINGS: There is osteopenia. No bone destruction or periosteal reaction or focal bone lesion to suggest osteomyelitis. No air in the soft tissues. IMPRESSION: No radiographic evidence of osteomyelitis.
[2017-04-10 22:33] VITALS: BP 120/62
[2017-04-11 06:51] VITALS: BP 112/56
--- NOTE | 2017-04-11 09:02 | RADIOLOGY REPORT ---
EXAMINATION: XR PORTABLE ABDOMEN CLINICAL INFORMATION: Question bowel obstruction, no bowel movement since admission. COMPARISON: CT abdomen and pelvis 01/25/2017 TECHNIQUE: AP view of the abdomen. FINDINGS: Motion artifact degrades image quality. There are mildly dilated loops of small bowel in the left hemiabdomen measuring up to 3.2 cm. There is elevation of the left hemidiaphragm. Surgical clips in the midline abdomen. Degenerative changes in the spine. IMPRESSION: Motion artifact degrades image quality. Mildly dilated gas-filled loops of bowel in the left hemiabdomen, findings may represent ileus, a developing obstruction is not excluded.
--- NOTE | 2017-04-11 09:12 | PN- Housestaff ---
Subjective Follow-up For: Altered mental status Subjective: This morning patient was seen and examined. He is alert and awake but confused. He offers no complaints right now. But looks restless. No fever reported. Review of Systems Constitutional: Reports: see HPI. Objective Last 24 Hrs of Vital Signs/I&O Vital Signs Date Time Temp Pulse Resp B/P B/P Pulse O2 O2 Flow FiO2 Mean Ox Delivery Rate 04/11 0651 98.3 110 16 112/56 95 Room Air 04/11 0000 Room Air 04/10 2233 98.5 99 16 120/62 94 Room Air 04/10 2108 Room Air 04/10 2108 93 Room Air 04/10 1800 97.0 90 16 128/56 04/10 1600 97.0 90 16 128/56 04/10 1600 97.0 90 16 128/56 96 Room Air 04/10 1451 97.0 90 16 128/56 04/10 1348 97.2 95 16 135/60 96 Room Air 04/10 1242 97.9 101 22 101/57 99 Room Air 04/10 1045 97.8 104 18 113/62 99 Room Air Intake & Output 04/11 1600 04/11 0800 04/11 0000 Intake Total 420 690 Output Total 525 650 Balance -105 40 Intake, IV 300 450 Intake, Oral 120 240 Output, Stool 0 Output, Urine 525 650 Physical Exam General Appearance: Alert Cardiovascular: TACHYCARDIA Lungs: decreased air entry bilaterally Abdomen: Soft, No Tenderness, decreased bowel sounds. Colostomy bag in place. Suprapubic catheter in place Extremities: No Edema, bandage intact both feet Current Medications: Current Medications Sig/Mey Start time Last Medication Dose Route Stop Time Status Admin Albuterol Sulfate 3 ML TID 04/10 2200 AC INH Amiodarone HCl 200 MG DAILY 04/11 1000 CAN PO Apixaban 5 MG BID 04/10 2200 CAN PO Aspirin 81 MG DAILY 04/11 1000 AC PO Aspirin Buffered 81 MG DAILY 04/10 1609 DC PO Atorvastatin Calcium 10 MG 1700 04/11 1700 AC PO Baclofen 10 MG DAILY 04/10 1821 AC 04/10 PO 2226 Collagenase 1 HILARIA DAILY 04/11 1000 AC TOP Ipratropium [place] 2.5 ML TID 04/10 2200 AC INH Levetiracetam 500 MG QAM 04/11 1000 AC PO Lisinopril 2.5 MG DAILY 04/11 1000 CAN PO Melatonin 5 MG AT BEDTIME 04/10 2200 AC 04/10 PO 2226 Metoprolol Tartrate 25 MG BID 04/10 2200 CAN PO Mirtazapine 15 MG AT BEDTIME 04/10 2200 AC 04/10 PO 2227 Omeprazole 20 MG DAILY AC 04/10 1820 AC 04/10 PO 1854 Rivaroxaban 20 MG DAILY 04/11 1000 AC PO Rivaroxaban 20 MG DAILY 04/10 1608 DC PO Sodium Chloride 1,000 ML Q6H 04/10 1600 AC 04/10 IV 1854 Sodium Chloride 1,000 ML BOLUS ONE 04/10 1300 DC 04/10 IV 04/10 1359 1252 Last 24 Hrs of Lab/Perfecto Results Last 24 Hrs of Labs/Mics: Laboratory Tests 04/10/17 1623: Ammonia < 9 L 04/10/17 1343: Lactic Acid Cancelled 04/10/17 1130: Urine Color YEL, Urine Clarity HAZY H, Urine pH 6.0, Ur Specific [place] 1.020, Urine Protein 30 H, Urine Ketones NEG, Urine Nitrite NEG, Urine Bilirubin NEG, Urine Urobilinogen 0.2, Ur Leukocyte Esterase MOD H, Ur Microscopic SEDIMENT EXAMINED, Urine RBC 1-3, Urine WBC 15-25 H, Urine Bacteria FEW H, Micro UA Comment , Urine Hemoglobin SMALL H, Urine Glucose NEG 04/10/17 1110: Anion Gap 15, Estimated GFR 33 L, BUN/Creatinine Ratio 36.5 H, Glucose 76, Lactic Acid 0.9, Calcium 9.6, Total Bilirubin 0.4, AST 12 L, ALT 20 L, Alkaline Phosphatase 152 H, Troponin I < 0.01, Total Protein 7.5, Albumin 2.9 L, Globulin 4.6 H, Albumin/Globulin Ratio 0.6 L, CBC w Diff MAN DIFF ORDERED, RBC 2.89 L, MCV 81.2, MCH 25.9 L, RDW 17.9 H, MPV 6.8 L, Gran % 84.9 H, Lymphocytes % 5.3 L, Monocytes % 7.8, Eosinophils % 1.8, Basophils % 0.2, Absolute Granulocytes 12.9 H, Absolute Lymphocytes 0.8 L, Absolute Monocytes 1.2 H, Absolute Eosinophils 0.3, Absolute Basophils 0, Platelet Estimate INCREASED, Hypochromic-Microcytic 2+, Anisocytosis 1+, PUBS MCHC 31.8 L, ESR Westergren > 130 H, Random Vancomycin 26.0 Microbiology 04/10 1549 STOOL: Clostridium difficile Toxin A & B - COLB 04/10 1130 URINE ROUT: Urine Culture - RECD 04/10 1129 BLOOD: Blood Culture - RECD 04/10 1110 BLOOD: Blood Culture - RECD Assessment/Plan Assessment: This is a 71-year-old man, detention resident, with diabetes, coronary artery disease, pulmonary embolism on Xarelto, with several recent hospitalizations for pneumonia, C. difficile, and upper GI bleed, with a gastric ulcer noted on endoscopy, paraplegia following spinal shock after surgery for an aortic aneurysm status post diverting colostomy and suprapubic cystostomy, chronic sacral and bilateral ischial decubiti/osteomyelitis treated with multiple courses of antibiotics and debridements recent hospitalization due to MRSA bacteremia secondary to acute and chronic osteomyelitis of sacrum and bilateral ischial status post multiple debridements and treated with Vancomycin and Ceftazidime with a PICC inserted in the right upper extremity. Problem list 1. Altered mental status. Differentials are acute on chronic osteomyelitis in the setting of elevated WBC count and ESR vs UTI vs azotemia and ERICKA vs dehydration vs constipation 2. ? Acute and chronic osteomyelitis of sacral and ischial decubiti. Elevated WBC count and ESR. Received 5 weeks course of vancomycin and Ceftaz. He pulled his PICC line at detention. X-ray both heels did not show any evidence of osteomyelitis 3. UTI. In the setting of suprapubic catheter. Could be colonization (during cultures positive for Pseudomonas and Escherichia coli previously) 4. Acute renal failure. Creatinine is 2.0. Could be due to drug-induced or dehydration 5. Chronic anemia. Guaiac positive stools previously. H&H 7.5/23.5 this admission 6. Constipation. No ostomy output so far. Abdominal x-ray findings suggestive of ileus PLAN * Monitor vitals closely * Monitor CBC daily * Monitor kidney functions daily * Avoid nephrotoxins and NSAIDs * Continue gentle IV fluids * Nephro consult pending * Podiatry consult appreciated * Proper wound care * Plastic surgery consult pending * Patient is off antibiotics * We'll follow further ID recommendations * Bowel regimen * PT evaluation and treatment * Avoid narcotics, benzos and anticholinergics * DVT prophylaxis * Full code Problem List: 1. Acute kidney injury Pain Ratin Pain Location: none Pain Goal: Pain 4 or less Pain Plan: tylenol Tomorrow's Labs & Rationales: cbc,bep DVT/Prophylaxis: pharmacological
--- NOTE | 2017-04-11 09:18 | Admission Certification ---
Admission Certification Certification Statement - As attending physician, I certify that at the time of - admission, based on clinical presentation, severity of - symptoms, need for further diagnostic testing and - therapeutic interventions, and risk of adverse outcomes - without in-hospital treatment, in my clinical assessment, - this patient requires an acute hospital stay for a minimum - of two nights or longer. I have also considered psychsocial - factors such as support system, advanced age, financial - issues, cognitive issues, and failed out-patient treatments, - past re-admission history, safety of patient, and lack of - compliance as applicable. Specific rationale supporting this admission is: Encephalopathy, dehydration and acute kidney injury.
--- NOTE | 2017-04-11 09:29 | PN- Att Addend ---
Attending Addendum Attending Brief Note On evaluation this morning he appears confused and fidgety. Noted patient constantly moving his upper extremity. General Appearance: Not oriented and fidgety Skin: Stage IV decubitus, bilateral heel ulcers Cardiovascular: Regular Rate, Normal S1, Normal S2, No Murmurs Lungs: Decreased air entry Abdomen: Colostomy bag in place Neurological: Unable to examine Assessment 71-year-old with history of diabetes, coronary artery disease, PE and paraplegic who is currently a jail resident and was recently discharged from the hospital after having multiple organism and possible osteomyelitis involving ischial spine on IV vancomycin and ceftazidime presenting with 4 days duration of progressive confusion and abnormal upper extremity movements. He had high leukocytosis prior to admission with elevated ESR however afebrile. It is possible he may be having toxic encephalopathy in the setting of high-dose antibiotics especially ceftazidime. Given acute kidney injury possibly from dehydration might have resulted and medication toxicity. However an underlying infection must also be ruled out since he has multiple other sources including urine and new skin wounds. At this point it is reasonable to discontinue all antibiotics and hydrate with IV fluids. We will involve neurology to evaluate for toxic encephalopathy. Patient qualifies for SIRS. Plan Discontinue all antibiotics daily labs neurology consult Follow all cultures IV fluids Follow nephro and ID recommendations Hold all nephrotoxic drugs Continue other meds Current Medications Sig/Mey Start time Last Medication Dose Route Stop Time Status Admin Albuterol Sulfate 3 ML TID 04/10 2200 AC 04/11 INH 0911 Amiodarone HCl 200 MG DAILY 04/11 1000 CAN PO Apixaban 5 MG BID 04/10 2200 CAN PO Aspirin 81 MG DAILY 04/11 1000 AC PO Aspirin Buffered 81 MG DAILY 04/10 1609 DC PO Atorvastatin Calcium 10 MG QPM 04/11 2200 CAN PO Atorvastatin Calcium 10 MG 1700 04/11 1700 AC PO Baclofen 10 MG DAILY 04/10 1821 AC 04/10 PO 2226 Collagenase 1 HILARIA DAILY 04/11 1000 AC TOP Cyanocobalamin 250 MCG DAILY 04/11 1000 AC PO Ipratropium [place] 2.5 ML TID 04/10 2200 AC 04/11 INH 0911 Levetiracetam 500 MG QAM 04/11 1000 AC PO Lisinopril 2.5 MG DAILY 04/11 1000 CAN PO Melatonin 5 MG AT BEDTIME 04/10 2200 AC 04/10 PO 2227 Metoprolol Tartrate 25 MG BID 04/10 220 CAN PO Mirtazapine 15 MG AT BEDTIME 04/10 220 AC 04/10 PO 222 Omeprazole 20 MG DAILY AC 04/10 1820 AC 04/10 PO 185 Rivaroxaban 20 MG DAILY 04/11 1000 AC PO Rivaroxaban 20 MG DAILY 04/10 1608 DC PO Sodium Chloride 1,000 ML Q6H 04/10 1600 AC 04/10 IV 1854 Sodium Chloride 1,000 ML BOLUS ONE 04/10 1300 DC 04/10 IV 04/10 1359 1252 Laboratory Tests 04/10 04/10 04/10 1623 1343 1130 Chemistry Lactic Acid Cancelled Ammonia (9 - 30 umol/L) < 9 L Urines Urine Color (YEL,AMB,STR) YEL Urine Clarity (CLEAR) HAZY H Urine pH (5.0 - 8.0) 6.0 Ur Specific [place] (1.001 - 1.035) 1.020 Urine Protein (NEG,<30 MG/DL) 30 H Urine Ketones (NEG) NEG Urine Nitrite (NEG) NEG Urine Bilirubin (NEG) NEG Urine Urobilinogen (0.1 - 1.0 EU/dl) 0.2 Ur Leukocyte Esterase (NEG) MOD H Ur Microscopic SEDIMENT EXAMINED Urine RBC (0 - 5 /HPF) 1-3 Urine WBC (0 - 2 /HPF) 15-25 H Urine Bacteria (NEG/NONE) FEW H Micro UA Comment Urine Hemoglobin (NEG) SMALL H Urine Glucose (N MG/DL) NEG 04/10 1110 Chemistry Sodium (137 - 145 mmol/L) 139 Potassium (3.5 - 5.1 mmol/L) 4.7 Chloride (98 - 107 mmol/L) 105 Carbon Dioxide (22 - 30 mmol/L) 19 L Anion Gap (5 - 16) 15 BUN (9 - 20 mg/dL) 73 H Creatinine (0.7 - 1.2 mg/dL) 2.0 H Estimated GFR (>60 ml/min) 33 L BUN/Creatinine Ratio (7 - 25 %) 36.5 H Glucose (65 - 99 mg/dL) 76 Lactic Acid (0.7 - 2.1 mmol/L) 0.9 Calcium (8.4 - 10.2 mg/dL) 9.6 Total Bilirubin (0.2 - 1.3 mg/dL) 0.4 AST (17 - 59 U/L) 12 L ALT (21 - 72 U/L) 20 L Alkaline Phosphatase (< 127 U/L) 152 H Troponin I (<0.11 ng/ml) < 0.01 Total Protein (6.3 - 8.2 g/dL) 7.5 Albumin (3.5 - 5.0 g/dL) 2.9 L Globulin (1.9 - 4.2 gm/dL) 4.6 H Albumin/Globulin Ratio (1.1 - 2.2 %) 0.6 L Hematology CBC w Diff MAN DIFF ORDERED WBC (4.8 - 10.8 /CUMM) 15.2 H RBC (4.70 - 6.10 /CUMM) 2.89 L Hgb (14.0 - 18.0 G/DL) 7.5 L Hct (42 - 52 %) 23.5 L MCV (80.0 - 94.0 FL) 81.2 MCH (27.0 - 31.0 PG) 25.9 L RDW (11.5 - 14.5 %) 17.9 H Plt Count (130 - 400 /CUMM) 781 H MPV (7.4 - 10.4 FL) 6.8 L Gran % (42.2 - 75.2 %) 84.9 H Lymphocytes % (20.5 - 51.1 %) 5.3 L Monocytes % (1.7 - 9.3 %) 7.8 Eosinophils % (0 - 5 %) 1.8 Basophils % (0.0 - 2.0 %) 0.2 Absolute Granulocytes (1.4 - 6.5 /CUMM) 12.9 H Absolute Lymphocytes (1.2 - 3.4 /CUMM) 0.8 L Absolute Monocytes (0.10 - 0.60 /CUMM) 1.2 H Absolute Eosinophils (0.0 - 0.7 /CUMM) 0.3 Absolute Basophils (0.0 - 0.2 /CUMM) 0 Platelet Estimate (ADEQUATE) INCREASED Hypochromic-Microcytic 2+ Anisocytosis 1+ PUBS MCHC (33.0 - 37.0 G/DL) 31.8 L ESR Westergren (0 - 10 MM) > 130 H Toxicology Random Vancomycin (ug/ml) 26.0 Vital Signs Date Time Temp Pulse Resp B/P B/P Pulse O2 O2 Flow FiO2 Mean Ox Delivery Rate 04/11 0915 93 Room Air 04/11 0651 98.3 110 16 112/56 95 Room Air 04/11 0000 Room Air 04/10 2233 98.5 99 16 120/62 94 Room Air 04/10 2108 Room Air 04/10 2108 93 Room Air 04/10 1800 97.0 90 16 128/56 04/10 1600 97.0 90 16 128/56 04/10 1600 97.0 90 16 128/56 96 Room Air 04/10 1451 97.0 90 16 128/56 04/10 1348 97.2 95 16 135/60 96 Room Air 04/10 1242 97.9 101 22 101/57 99 Room Air 04/10 1045 97.8 104 18 113/62 99 Room Air
[2017-04-11 10:21] LABS: ABSOLUTE BASOPHIL COUNT 0.1 /CUMM (0.0-0.2); ABSOLUTE EOSINOPHIL COUNT 0.2 /CUMM (0.0-0.7); ABSOLUTE GRANULOCYTE CT 12.7 /CUMM (1.4-6.5); ABSOLUTE LYMPH COUNT 0.7 /CUMM (1.2-3.4); ABSOLUTE MONOCYTE COUNT 1.4 /CUMM (0.10-0.60); BASOPHIL % 0.4 % (0.0-2.0); EOSINOPHIL % 1.3 % (0-5); GRANULOCYTE % 84.2 % (42.2-75.2); HEMATOCRIT 25.7 % (42-52); MEAN CORPUSCULAR HGB 25.5 PG (27.0-31.0); MEAN CORPUSCULAR HGB CONC 31.4 G/DL (33.0-37.0); MEAN CORPUSCULAR VOLUME 81.3 FL (80.0-94.0); MEAN PLATELET VOLUME 6.9 FL (7.4-10.4); PLATELET COUNT 792 /CUMM (130-400); RBC DISTRIBUTION WIDTH 17.4 % (11.5-14.5); RED BLOOD CELL CT 3.16 /CUMM (4.70-6.10); WHITE BLOOD CELL COUNT 15.1 /CUMM (4.8-10.8)
--- NOTE | 2017-04-11 10:37 | PN- Infect Dx ---
Subjective Subjective: Afebrile. He remains confused and unable to provide any reliable history Objective Last 24 Hrs of Vital Signs/I&O Vital Signs Date Time Temp Pulse Resp B/P B/P Pulse O2 O2 Flow FiO2 Mean Ox Delivery Rate 04/11 0915 93 Room Air 04/11 0651 98.3 110 16 112/56 95 Room Air 04/11 0000 Room Air 04/10 2233 98.5 99 16 120/62 94 Room Air 04/10 2108 Room Air 04/10 2108 93 Room Air 04/10 1800 97.0 90 16 128/56 04/10 1600 97.0 90 16 128/56 04/10 1600 97.0 90 16 128/56 96 Room Air 04/10 1451 97.0 90 16 128/56 04/10 1348 97.2 95 16 135/60 96 Room Air 04/10 1242 97.9 101 22 101/57 99 Room Air 04/10 1045 97.8 104 18 113/62 99 Room Air Intake & Output 04/11 1600 04/11 0800 04/11 0000 Intake Total 420 690 Output Total 525 650 Balance -105 40 Intake, IV 300 450 Intake, Oral 120 240 Output, Stool 0 Output, Urine 525 650 Physical Exam Other Physical Findings: He is confused and disoriented though in no acute distress Lungs are clear Heart regular rhythm with a 1/6 systolic ejection murmur Abdomen is soft, nontender with positive bowel sounds; no ostomy output Extremities no cyanosis, clubbing or edema; bilateral heel decubiti Results Last 24 Hours of Lab Results: Laboratory Tests 04/11 04/10 04/10 0925 1623 1343 Chemistry Sodium Pending Potassium Pending Chloride Pending Carbon Dioxide Pending Anion Gap Pending BUN Pending Creatinine Pending BUN/Creatinine Ratio Pending Lactic Acid Cancelled Ammonia (9 - 30 umol/L) < 9 L Hematology CBC w Diff MAN DIFF ORDERED WBC (4.8 - 10.8 /CUMM) 15.1 H RBC (4.70 - 6.10 /CUMM) 3.16 L Hgb (14.0 - 18.0 G/DL) 8.1 L Hct (42 - 52 %) 25.7 L MCV (80.0 - 94.0 FL) 81.3 MCH (27.0 - 31.0 PG) 25.5 L RDW (11.5 - 14.5 %) 17.4 H Plt Count (130 - 400 /CUMM) 792 H MPV (7.4 - 10.4 FL) 6.9 L Gran % (42.2 - 75.2 %) 84.2 H Lymphocytes % (20.5 - 51.1 %) 4.8 L Monocytes % (1.7 - 9.3 %) 9.3 Eosinophils % (0 - 5 %) 1.3 Basophils % (0.0 - 2.0 %) 0.4 Absolute Granulocytes (1.4 - 6.5 /CUMM) 12.7 H Segmented Neutrophils (42.2 - 75.2 %) Pending Absolute Lymphocytes (1.2 - 3.4 /CUMM) 0.7 L Absolute Monocytes (0.10 - 0.60 /CUMM) 1.4 H Absolute Eosinophils (0.0 - 0.7 /CUMM) 0.2 Absolute Basophils (0.0 - 0.2 /CUMM) 0.1 PUBS MCHC (33.0 - 37.0 G/DL) 31.4 L 04/10 04/10 1130 1110 Chemistry Sodium (137 - 145 mmol/L) 139 Potassium (3.5 - 5.1 mmol/L) 4.7 Chloride (98 - 107 mmol/L) 105 Carbon Dioxide (22 - 30 mmol/L) 19 L Anion Gap (5 - 16) 15 BUN (9 - 20 mg/dL) 73 H Creatinine (0.7 - 1.2 mg/dL) 2.0 H Estimated GFR (>60 ml/min) 33 L BUN/Creatinine Ratio (7 - 25 %) 36.5 H Glucose (65 - 99 mg/dL) 76 Lactic Acid (0.7 - 2.1 mmol/L) 0.9 Calcium (8.4 - 10.2 mg/dL) 9.6 Total Bilirubin (0.2 - 1.3 mg/dL) 0.4 AST (17 - 59 U/L) 12 L ALT (21 - 72 U/L) 20 L Alkaline Phosphatase (< 127 U/L) 152 H Troponin I (<0.11 ng/ml) < 0.01 Total Protein (6.3 - 8.2 g/dL) 7.5 Albumin (3.5 - 5.0 g/dL) 2.9 L Globulin (1.9 - 4.2 gm/dL) 4.6 H Albumin/Globulin Ratio (1.1 - 2.2 %) 0.6 L Hematology CBC w Diff MAN DIFF ORDERED WBC (4.8 - 10.8 /CUMM) 15.2 H RBC (4.70 - 6.10 /CUMM) 2.89 L Hgb (14.0 - 18.0 G/DL) 7.5 L Hct (42 - 52 %) 23.5 L MCV (80.0 - 94.0 FL) 81.2 MCH (27.0 - 31.0 PG) 25.9 L RDW (11.5 - 14.5 %) 17.9 H Plt Count (130 - 400 /CUMM) 781 H MPV (7.4 - 10.4 FL) 6.8 L Gran % (42.2 - 75.2 %) 84.9 H Lymphocytes % (20.5 - 51.1 %) 5.3 L Monocytes % (1.7 - 9.3 %) 7.8 Eosinophils % (0 - 5 %) 1.8 Basophils % (0.0 - 2.0 %) 0.2 Absolute Granulocytes (1.4 - 6.5 /CUMM) 12.9 H Absolute Lymphocytes (1.2 - 3.4 /CUMM) 0.8 L Absolute Monocytes (0.10 - 0.60 /CUMM) 1.2 H Absolute Eosinophils (0.0 - 0.7 /CUMM) 0.3 Absolute Basophils (0.0 - 0.2 /CUMM) 0 Platelet Estimate (ADEQUATE) INCREASED Hypochromic-Microcytic 2+ Anisocytosis 1+ PUBS MCHC (33.0 - 37.0 G/DL) 31.8 L ESR Westergren (0 - 10 MM) > 130 H Toxicology Random Vancomycin (ug/ml) 26.0 Urines Urine Color (YEL,AMB,STR) YEL Urine Clarity (CLEAR) HAZY H Urine pH (5.0 - 8.0) 6.0 Ur Specific [place] (1.001 - 1.035) 1.020 Urine Protein (NEG,<30 MG/DL) 30 H Urine Ketones (NEG) NEG Urine Nitrite (NEG) NEG Urine Bilirubin (NEG) NEG Urine Urobilinogen (0.1 - 1.0 EU/dl) 0.2 Ur Leukocyte Esterase (NEG) MOD H Ur Microscopic SEDIMENT EXAMINED Urine RBC (0 - 5 /HPF) 1-3 Urine WBC (0 - 2 /HPF) 15-25 H Urine Bacteria (NEG/NONE) FEW H Micro UA Comment Urine Hemoglobin (NEG) SMALL H Urine Glucose (N MG/DL) NEG Last 24 Hours of Perfecto Results: Blood cultures 2 April 10 negative Urine culture April 10 approximately 75,000 colonies of yeast Recent Imaging Studies: Abdominal x-ray April 11 reveals mildly dilated loops of small bowel in the left hemiabdomen X-ray of both heels April 10 negative for osteomyelitis Assessment/Plan Impression: Encephalopathy persists possibly secondary to uremia, with acute renal failure, felt possibly secondary to his antibiotics or perhaps other medication, versus sepsis, with recent MRSA bacteremia and osteomyelitis of the sacrum and bilateral ischia, for which he has been on Vancomycin and Ceftazidime for the past 4 weeks. He remains afebrile with white blood cell count elevated on admission, though decreased from 2 days earlier, now off antibiotics with recent blood cultures remaining negative. His positive urine culture for yeast likely represents colonization secondary to his suprapubic catheter and would not treat at this time. He has no colostomy output, with the abdominal x-ray suggesting possible ileus, and this will require further evaluation. Podiatry input appreciated regarding his bilateral heel decubiti. Suggestion: 1. Renal evaluation 2. CT of the head 3. Plastic surgery reevaluation of his sacral and bilateral ischial decubiti 4. Further evaluation of possible ileus per Medicine with further input, either from GI or Surgery, he does not improve 5. Follow-up recent cultures 6. Continue to follow off antibiotics pending above
--- NOTE | 2017-04-11 11:39 | Cons- Nephrology ---
General Information and HPI Consulting Request Date of Consult: 04/11/17 Requested By: JEANNIE ANN MD Reason for Consult: Acute Kidney Injury Source of Information: old records Exam Limitations: unable to give history, confusion History of Present Illness: Mr. Peterson is a 71 year old male with a significant PMH of DM, CAD (s/p CABG), PE (on xarelto), AAA s/p endovascular repair complicated by spinal shock with resultant paraplegia with colostomy and suprapubic urinary cath in place, who was recently discharged from after treatment of biopsy confirmed MRSA and Pseudomonas osteomyelitis with vanco/ceftaz. He presents to the ED from [place] with altered mental status. Labwork from 04/08/2017 showed a leukocytosis of 19.3. He does have multiple potential souces of his leukocytosis including his suprapubic cath, as well as multiple decubitus ulcers. He is unable to offer any complaints as he is altered and afebrile review of systems could not be obtained. He was afebrile today, with the remainder of his vitals stable except for his heart rate which was slightly tachycardic in the low 100s. Physical exam: Age- appropriate appearing gentleman lying in bed. AAO 1. He does appear slightly agitated and restless, with repetitive motions of bringing his right arm up to his mouth and blowing on his fingers. Lung exam revealed normal air entry however patient was unable to take follow instructions for inspiratory/ expiratory phases. Heart, S1-S2 positive, tachycardia, no murmurs rubs or gallops appreciated. Abdominal exam significant for colostomy, as well as suprapubic catheter. No significant tenderness appreciated. Per the report there is significant decubitus sacral ulcer, this was not personally confirmed. Extremities are significant for bilateral shallow decubitus heel ulcers, ?stage 1, no edema noted. Overall he does not appear fluid overloaded or dehydrated. Allergies/Medications Allergies: Coded Allergies: ibuprofen (UNKNOWN 01/18/17) Home Med List: Acetaminophen (Q-Pap) 325 MG TABLET 2 TAB PO Q4H PRN PAIN/TEMP>/100 (Reported ) Acetaminophen (Acephen) 650 MG SUPP.RECT 1 SUPP ME Q4H PRN PAIN/TEMP>100 ( Reported) Aspirin (Ecotrin*) 81 MG TABLET.DR 1 TAB PO DAILY HEART/BLOOD (Reported) Atorvastatin Calcium (Lipitor) 10 MG TABLET 1 TAB PO QPM CHOLESTEROL ( Reported) Baclofen 10 MG TABLET 1 TAB PO DAILY spams (Reported) Ceftazidime 2 GRAM VIAL 2 GM IV Q8 ANTIBIOTIC, INFECTION (Reported) Cyanocobalamin (Vitamin B-12) (Vitamin B-12) 100 MCG TABLET 1 TAB PO DAILY SUPPLEMENT (Reported) Ergocalciferol (Vitamin D2) (Vitamin D2) 50,000 UNIT CAPSULE 1 CAP PO Q30D SUPPLEMENT (Reported) Furosemide (Lasix) 20 MG TABLET 1 TAB PO Q48 DIURETIC (Reported) Insulin Aspart, Recombinant (Novolog Flexpen) (Unknown Strength) INSULN.PEN ( Unknown Dose) SC BID DIABETES (Reported) Ipratropium/Albuterol Sulfate (Iprat-Albut 0.5-3(2.5) MG/3 Ml) 0.5 MG-3 MG (2.5 MG BASE)/3 ML AMPUL.NEB 1 VIAL INH TID RESPIRATORY (Reported) Levetiracetam (Keppra) 500 MG TABLET 1 TAB PO QAM seizures (Reported) Lisinopril (Zestril) 10 MG TABLET 1 TAB PO DAILY BP (Reported) Magnesium Hydroxide (Milk Of Magnesia) 400 MG/5 ML ORAL.SUSP 30 ML PO DAILY PRN CONSTIPATION (Reported) Melatonin 5 MG TABLET 1 TAB PO QHS SLEEP (Reported) Metformin HCl 500 MG TABLET 1 TAB PO BID DM (Reported) Mirtazapine 15 MG TABLET 0.5 TAB PO QHS UNKNOWN (Reported) Mometasone/Formoterol (Dulera 100 Mcg/5 Mcg Inhaler) 100 MCG-5 MCG/ACTUATION HFA.AER.AD 2 PUF INH BID RESPIRATORY (Reported) Multivitamin (Multi-Day Vitamins) 1 EACH TABLET 1 TAB PO DAILY SUPPLEMENT ( Reported) [place]-3/Dha/Epa/Fish Oil (Fish Oil 1,000 MG Softgel) 1,000 MG (120 MG-180 MG) CAPSULE 1 CAP PO DAILY SUPPLEMENT (Reported) Omeprazole 20 MG CAPSULE.DR 1 CAP PO DAILY GI (Reported) Oxycodone HCl 10 MG TABLET 1 TAB PO Q8H PAIN (Reported) Protein Supplement (Promod) 946 ML LIQUID 30 ML PO TID SUPPLEMENT (Reported) Psyllium Husk (Metamucil) 0.52 GRAM CAPSULE 1 CAP PO DAILY SUPPLEMENT ( Reported) Rivaroxaban (Xarelto) 20 MG TABLET 1 TAB PO DAILY Pumonary Embolism Saccharomyces Boulardii (Florastor) 250 MG CAPSULE 1 TAB PO QHS PROBIOTIC ( Reported) Tolterodine Tartrate (Detrol LA) 4 MG CAP.ER.24H 1 CAP PO BID BLADDER ( Reported) Tramadol HCl 50 MG TABLET 1 TAB PO BIDP PRN PAIN (Reported) Trazodone HCl 50 MG TABLET 0.5 TAB PO Q12H PRN UNKNOWN (Reported) Vancomycin/0.9 % Sod Chloride (Vancomycin 1 G/200ML-0.9% NaCl) 1 GRAM/200 ML FROZ.PIGGY 1,000 MG IV Q12 osteomyelitis Review of Systems Review of Systems: see HPI Past History Travel History Traveled to [place] past 21 day No Medical History Neurological: PARAPLEGIA STATUS POST SPINAL SHOCK POSTOP EENT: NONE Cardiovascular: CAD, hypertension, hyperlipidemia, ABDOMINAL ANEURYSM Respiratory: asthma, pulmonary embolism, pneumonia Gastrointestinal: GERD, upper GI bleed, C. 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 Needs Assist: dressing, toileting, bathing. Ambulation: non-ambulatory IADLs Needs Assist: shopping, housework, finances, food prep, telephone, transportation, medication admin. Exam & Diagnostic Data Vital Signs and I&O Vital Signs Date Time Temp Pulse Resp B/P B/P Pulse O2 O2 Flow FiO2 Mean Ox Delivery Rate 04/11 0915 93 Room Air 04/11 0651 98.3 110 16 112/56 95 Room Air 04/11 0000 Room Air 04/10 2233 98.5 99 16 120/62 94 Room Air 04/10 2108 Room Air 04/10 2108 93 Room Air 04/10 1800 97.0 90 16 128/56 04/10 1600 97.0 90 16 128/56 04/10 1600 97.0 90 16 128/56 96 Room Air 04/10 1451 97.0 90 16 128/56 04/10 1348 97.2 95 16 135/60 96 Room Air 04/10 1242 97.9 101 22 101/57 99 Room Air Intake & Output 04/11 1600 04/11 0400 04/10 1600 04/10 0400 04/09 1600 04/09 0400 Intake Total 420 690 Output Total 525 650 400 Balance -105 40 -400 Intake, IV 300 450 Intake, Oral 120 240 Output, Stool 0 Output, Urine 525 650 400 Patient 86.183 kg Weight Weight Reported by Patient Measurement Method Physical Exam: see HPI Results Pertinent Lab Results: Laboratory Tests 04/11 04/10 04/10 0925 1623 1343 Chemistry Sodium (137 - 145 mmol/L) 141 Potassium (3.5 - 5.1 mmol/L) 4.8 Chloride (98 - 107 mmol/L) 112 H Carbon Dioxide (22 - 30 mmol/L) 18 L Anion Gap (5 - 16) 12 BUN (9 - 20 mg/dL) 70 H Creatinine (0.7 - 1.2 mg/dL) 1.7 H Estimated GFR (>60 ml/min) 40 L BUN/Creatinine Ratio (7 - 25 %) 41.2 H Lactic Acid Cancelled Ammonia (9 - 30 umol/L) < 9 L Hematology CBC w Diff MAN DIFF ORDERED WBC (4.8 - 10.8 /CUMM) 15.1 H RBC (4.70 - 6.10 /CUMM) 3.16 L Hgb (14.0 - 18.0 G/DL) 8.1 L Hct (42 - 52 %) 25.7 L MCV (80.0 - 94.0 FL) 81.3 MCH (27.0 - 31.0 PG) 25.5 L RDW (11.5 - 14.5 %) 17.4 H Plt Count (130 - 400 /CUMM) 792 H MPV (7.4 - 10.4 FL) 6.9 L Gran % (42.2 - 75.2 %) 84.2 H Lymphocytes % (20.5 - 51.1 %) 4.8 L Monocytes % (1.7 - 9.3 %) 9.3 Eosinophils % (0 - 5 %) 1.3 Basophils % (0.0 - 2.0 %) 0.4 Absolute Granulocytes (1.4 - 6.5 /CUMM) 12.7 H Absolute Lymphocytes (1.2 - 3.4 /CUMM) 0.7 L Absolute Monocytes (0.10 - 0.60 /CUMM) 1.4 H Absolute Eosinophils (0.0 - 0.7 /CUMM) 0.2 Absolute Basophils (0.0 - 0.2 /CUMM) 0.1 Platelet Estimate (ADEQUATE) INCREASED Polychromasia 1+ Anisocytosis 1+ PUBS MCHC (33.0 - 37.0 G/DL) 31.4 L 04/10 04/10 1130 1110 Chemistry Sodium (137 - 145 mmol/L) 139 Potassium (3.5 - 5.1 mmol/L) 4.7 Chloride (98 - 107 mmol/L) 105 Carbon Dioxide (22 - 30 mmol/L) 19 L Anion Gap (5 - 16) 15 BUN (9 - 20 mg/dL) 73 H Creatinine (0.7 - 1.2 mg/dL) 2.0 H Estimated GFR (>60 ml/min) 33 L BUN/Creatinine Ratio (7 - 25 %) 36.5 H Glucose (65 - 99 mg/dL) 76 Lactic Acid (0.7 - 2.1 mmol/L) 0.9 Calcium (8.4 - 10.2 mg/dL) 9.6 Total Bilirubin (0.2 - 1.3 mg/dL) 0.4 AST (17 - 59 U/L) 12 L ALT (21 - 72 U/L) 20 L Alkaline Phosphatase (< 127 U/L) 152 H Troponin I (<0.11 ng/ml) < 0.01 Total Protein (6.3 - 8.2 g/dL) 7.5 Albumin (3.5 - 5.0 g/dL) 2.9 L Globulin (1.9 - 4.2 gm/dL) 4.6 H Albumin/Globulin Ratio (1.1 - 2.2 %) 0.6 L Hematology CBC w Diff MAN DIFF ORDERED WBC (4.8 - 10.8 /CUMM) 15.2 H RBC (4.70 - 6.10 /CUMM) 2.89 L Hgb (14.0 - 18.0 G/DL) 7.5 L Hct (42 - 52 %) 23.5 L MCV (80.0 - 94.0 FL) 81.2 MCH (27.0 - 31.0 PG) 25.9 L RDW (11.5 - 14.5 %) 17.9 H Plt Count (130 - 400 /CUMM) 781 H MPV (7.4 - 10.4 FL) 6.8 L Gran % (42.2 - 75.2 %) 84.9 H Lymphocytes % (20.5 - 51.1 %) 5.3 L Monocytes % (1.7 - 9.3 %) 7.8 Eosinophils % (0 - 5 %) 1.8 Basophils % (0.0 - 2.0 %) 0.2 Absolute Granulocytes (1.4 - 6.5 /CUMM) 12.9 H Absolute Lymphocytes (1.2 - 3.4 /CUMM) 0.8 L Absolute Monocytes (0.10 - 0.60 /CUMM) 1.2 H Absolute Eosinophils (0.0 - 0.7 /CUMM) 0.3 Absolute Basophils (0.0 - 0.2 /CUMM) 0 Platelet Estimate (ADEQUATE) INCREASED Hypochromic-Microcytic 2+ Anisocytosis 1+ PUBS MCHC (33.0 - 37.0 G/DL) 31.8 L ESR Westergren (0 - 10 MM) > 130 H Toxicology Random Vancomycin (ug/ml) 26.0 Urines Urine Color (YEL,AMB,STR) YEL Urine Clarity (CLEAR) HAZY H Urine pH (5.0 - 8.0) 6.0 Ur Specific [place] (1.001 - 1.035) 1.020 Urine Protein (NEG,<30 MG/DL) 30 H Urine Ketones (NEG) NEG Urine Nitrite (NEG) NEG Urine Bilirubin (NEG) NEG Urine Urobilinogen (0.1 - 1.0 EU/dl) 0.2 Ur Leukocyte Esterase (NEG) MOD H Ur Microscopic SEDIMENT EXAMINED Urine RBC (0 - 5 /HPF) 1-3 Urine WBC (0 - 2 /HPF) 15-25 H Urine Bacteria (NEG/NONE) FEW H Micro UA Comment Urine Hemoglobin (NEG) SMALL H Urine Glucose (N MG/DL) NEG Assessment/Plan Assessment/Recommendations Assessment: Mr. Peterson is a 71 year old male with a significant PMH of DM, CAD, PE (on xarelto), AAA s/p endovascular repair complicated by spinal shock with resultant paraplegia with colostomy and suprapubic urinary cath in place, who was recently discharged from after treatment of biopsy confirmed MRSA and Pseudomonas osteomyelitis with vanco/ceftaz. He presents to the ED from [place] with altered mental status. Problem List Acute Kidney Injury Altered Mental status Hx of sacral/ischial MRSA/Pseudomonas osteomyelitis and MRSA bacteremia Paraplegia Anemia Recommendations: * His BUN/Cr are higher than his baseline (WNL) - 73/2.0 on admission * Differentials include prerenal etiologies including dehydration leading to hypoperfusion, as his BUN/Cr ratio is above 20, approx 36.5. * Today, his BUN/Cr today 70/1.7 after 2L of NS. This correction points to the fact that there was some sort of pre-renal element to his ERICKA. * Other etiologies include medication induced kidney injury, especially given his random vanco level of 26. This is less likely I believe, given his trending correction in 1 day. Also, I was able to speak to the lab, and on investigation of the urine, there were no muddy brown or granular casts to indicate acute tubular necrosis. * Another etiology would be ceftaz induced acute interstitial nephritis, however there was no eosinophelia to indicate this. * Recommend to continue hydration with normal saline at 75cc/hour, and repeat labs to assess for improvement of his kidney function. * Additionally, a urine fractional excretion of sodium should be obtained, and if less than 1%, this would further support a prerenal etiology. * Finally, please evaluate for CPK elevation as he is a paraplegic and elevated creatinine kinase may contribution to kidney injury. His last CK a few months ago was within normal limits. Please also evaluate phosphorus and magnesium levels. * Regarding his altered mental status, I do believe this is delirium secondary to an infectious etiology as he does have an elevated white count, and he does have multiple sources of potential infection including his suprapubic cath. Cultures negative so far, but he has been on vanco/ceftaz for 4 weeks until yesterday, which may give a false negative culture. Heel ulcers less likely as a source given his XRay findings. * Anotehr possible source of AMS, may be an intracranial bleed, as he is on anticoagulation. Head CT ordered. * He is currently off antibiotics and infection disease is on board. Note reviewed and appreciated. * Podiatry, Wound and Plastics consults notes reviewed and appreciated.
--- NOTE | 2017-04-11 12:43 | PN- Wound Care ---
Subjective Subjective: Patient is admitted with confusion. Patient has had significant weight loss Objective Vital Signs and I&Os Vital Signs Result Date Time Pulse Ox 93 04/11 0915 O2 Delivery Room Air 04/11 0915 B/P 112/56 04/11 0651 Temp 98.3 04/11 0651 Pulse 110 04/11 0651 Resp 16 04/11 0651 Intake & Output 04/11 0000 04/10 1600 04/10 0800 Intake Total 690 Output Total 650 400 Balance 40 -400 Intake, IV 450 Intake, Oral 240 Output, Urine 650 400 Patient 190 lb Weight Weight Reported by Patient Measurement Method He continues to have multiple stage IV pressure ulcers complicated by osteomyelitis of the left hip is a 4.5 x 1.5 stage IV ulcer over the right issue is a 7 x 5.5 ulcer which is unstageable over the coccyx is a 13 x 7.5 cm stage IV ulcer over both heels are area of deep tissue injury the right measuring 3 x 2 cm the left 2.5 x 2 cm there is areas of unstageable dark eschar Impression/Plan Impression/Plan Impression/Plan: 71-year-old gentleman with significant weight loss who is had persistent and multiple stage IV pressure ulcers without evidence of improvement, complicated by osteomyelitis. There does not appear to be evidence of, getting soft tissue skin infection. Recommendation is made for use of a [place] bed. Wound dressings can be loosely packed with quarter strength Dakin's. Patient needs nutritional evaluation in view of his significant weight loss and reduced albumin. Likelihood of healing these conservatively is vanishingly small plastic surgery to reevaluate for candidacy for flap closure. If that is not an option would recommend discussions regarding the direction of his care
--- NOTE | 2017-04-11 12:50 | Cons- Plastic Surgery ---
General Information and HPI Consulting Request Date of Consult: 04/11/17 Requested By: anuel Reason for Consult: Chronic buttock wounds secondary to pressure Source of Information: patient, old records History of Present Illness: Patient has had another admission due to of abnormalities in the presence of chronic sacral and ischial wounds. Also has history of positive UTIs. Allergies/Medications Allergies: Coded Allergies: ibuprofen (UNKNOWN 01/18/17) Home Med List: Acetaminophen (Q-Pap) 325 MG TABLET 2 TAB PO Q4H PRN PAIN/TEMP>/100 (Reported ) Acetaminophen (Acephen) 650 MG SUPP.RECT 1 SUPP MA Q4H PRN PAIN/TEMP>100 ( Reported) Aspirin (Ecotrin*) 81 MG TABLET.DR 1 TAB PO DAILY HEART/BLOOD (Reported) Atorvastatin Calcium (Lipitor) 10 MG TABLET 1 TAB PO QPM CHOLESTEROL ( Reported) Baclofen 10 MG TABLET 1 TAB PO DAILY spams (Reported) Ceftazidime 2 GRAM VIAL 2 GM IV Q8 ANTIBIOTIC, INFECTION (Reported) Cyanocobalamin (Vitamin B-12) (Vitamin B-12) 100 MCG TABLET 1 TAB PO DAILY SUPPLEMENT (Reported) Ergocalciferol (Vitamin D2) (Vitamin D2) 50,000 UNIT CAPSULE 1 CAP PO Q30D SUPPLEMENT (Reported) Furosemide (Lasix) 20 MG TABLET 1 TAB PO Q48 DIURETIC (Reported) Insulin Aspart, Recombinant (Novolog Flexpen) (Unknown Strength) INSULN.PEN ( Unknown Dose) SC BID DIABETES (Reported) Ipratropium/Albuterol Sulfate (Iprat-Albut 0.5-3(2.5) MG/3 Ml) 0.5 MG-3 MG (2.5 MG BASE)/3 ML AMPUL.NEB 1 VIAL INH TID RESPIRATORY (Reported) Levetiracetam (Keppra) 500 MG TABLET 1 TAB PO QAM seizures (Reported) Lisinopril (Zestril) 10 MG TABLET 1 TAB PO DAILY BP (Reported) Magnesium Hydroxide (Milk Of Magnesia) 400 MG/5 ML ORAL.SUSP 30 ML PO DAILY PRN CONSTIPATION (Reported) Melatonin 5 MG TABLET 1 TAB PO QHS SLEEP (Reported) Metformin HCl 500 MG TABLET 1 TAB PO BID DM (Reported) Mirtazapine 15 MG TABLET 0.5 TAB PO QHS UNKNOWN (Reported) Mometasone/Formoterol (Dulera 100 Mcg/5 Mcg Inhaler) 100 MCG-5 MCG/ACTUATION HFA.AER.AD 2 PUF INH BID RESPIRATORY (Reported) Multivitamin (Multi-Day Vitamins) 1 EACH TABLET 1 TAB PO DAILY SUPPLEMENT ( Reported) [place]-3/Dha/Epa/Fish Oil (Fish Oil 1,000 MG Softgel) 1,000 MG (120 MG-180 MG) CAPSULE 1 CAP PO DAILY SUPPLEMENT (Reported) Omeprazole 20 MG CAPSULE.DR 1 CAP PO DAILY GI (Reported) Oxycodone HCl 10 MG TABLET 1 TAB PO Q8H PAIN (Reported) Protein Supplement (Promod) 946 ML LIQUID 30 ML PO TID SUPPLEMENT (Reported) Psyllium Husk (Metamucil) 0.52 GRAM CAPSULE 1 CAP PO DAILY SUPPLEMENT ( Reported) Rivaroxaban (Xarelto) 20 MG TABLET 1 TAB PO DAILY Pumonary Embolism Saccharomyces Boulardii (Florastor) 250 MG CAPSULE 1 TAB PO QHS PROBIOTIC ( Reported) Tolterodine Tartrate (Detrol LA) 4 MG CAP.ER.24H 1 CAP PO BID BLADDER ( Reported) Tramadol HCl 50 MG TABLET 1 TAB PO BIDP PRN PAIN (Reported) Trazodone HCl 50 MG TABLET 0.5 TAB PO Q12H PRN UNKNOWN (Reported) Vancomycin/0.9 % Sod Chloride (Vancomycin 1 G/200ML-0.9% NaCl) 1 GRAM/200 ML FROZ.PIGGY 1,000 MG IV Q12 osteomyelitis Past History Medical History Neurological: PARAPLEGIA STATUS POST SPINAL SHOCK POSTOP EENT: NONE Cardiovascular: CAD, hypertension, hyperlipidemia, ABDOMINAL ANEURYSM Respiratory: asthma, pulmonary embolism, pneumonia Gastrointestinal: GERD, upper GI bleed, C. 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 Needs Assist: dressing, toileting, bathing. Ambulation: non-ambulatory IADLs Needs Assist: shopping, housework, finances, food prep, telephone, transportation, medication admin. Review of Systems Review of Systems: Patient is not alert and oriented 3 Exam & Diagnostic Data Vital Signs and I&O Vital Signs Date Time Temp Pulse Resp B/P B/P Pulse O2 O2 Flow FiO2 Mean Ox Delivery Rate 04/11 0915 93 Room Air 04/11 0800 95 Room Air 04/11 0651 98.3 110 16 112/56 95 Room Air 04/11 0000 Room Air 04/10 2233 98.5 99 16 120/62 94 Room Air 04/10 2108 Room Air 04/10 2108 93 Room Air 04/10 1800 97.0 90 16 128/56 04/10 1600 97.0 90 16 128/56 04/10 1600 97.0 90 16 128/56 96 Room Air 04/10 1451 97.0 90 16 128/56 04/10 1348 97.2 95 16 135/60 96 Room Air Intake & Output 04/11 1600 04/11 0800 04/11 0000 04/10 1600 04/10 0800 04/10 0000 Intake Total 420 690 Output Total 525 650 400 Balance -105 40 -400 Intake, IV 300 450 Intake, Oral 120 240 Output, Stool 0 Output, Urine 525 650 400 Patient 190 lb Weight Weight Reported by Patient Measurement Method Physical Exam: Buttock wounds without cellulitis crepitance or active drainage. Grossly expose cortical bone right ischium and sacrum. Assessment/Plan Assessment/Plan Since last office visit proximally one week or so ago the patient has mental status changes. He states the current president is "2009" and thinks the year is "2009". The patient is aware he is in the [facility] via a multiple choice selection. The buttock wounds remain stable in gross clinical appearance. The patient recently stated he had a 50 pound weight loss. He likely has poor nutritional status and has wounds that are significant in size and has ER visits 1-2 times per month for various issues. He is currently not a surgical candidate. Best case scenario; if the patient had reversal of the mental status changes, identify that the 50 pound weight loss (as reported by the patient last visit) is nothing of significance and adequate nutritional status can be achieved, could consider a right ischial flap. If he were to heal that flap would then consider moving on to the larger wound. Consult Acknowledgment - Thank you for your consult request.
[2017-04-11 14:11] VITALS: BP 120/60
--- NOTE | 2017-04-11 15:09 | CT SCAN REPORT ---
EXAMINATION: CT HEAD WITHOUT CONTRAST CLINICAL INFORMATION: Encephalopathy. Presumptive diagnosis of question stroke. COMPARISON: None TECHNIQUE: Contiguous axial imaging was performed from the skull base to vertex without intravenous administration of contrast. DLP: 614.69 mGy-cm FINDINGS: There is no evidence of acute intracranial hemorrhage or territorial infarction. No abnormal mass effect or midline shift is seen. No extra-axial fluid collections are identified. The ventricles and sulci are mildly enlarged, consistent with involutional changes. There is focal area of encephalomalacia in the left frontal lobe with subjacent ex vacuo dilatation of the frontal horn of the left lateral ventricle and sulcal enlargement, consistent with an old infarct. Additional smaller peripheral cortical infarct is seen with encephalomalacia in the left frontal lobe (series 2, image 38 and 39). The osseous structures and soft tissues are normal. There is opacification of some of the right-sided anterior and middle ethmoid air cells. Frontal sinuses are not pneumatized. The mastoid air cells and remainder of the visualized portions of the paranasal sinuses are well aerated. IMPRESSION: 1. No evidence of acute intracranial hemorrhage or territorial infarction. 2. 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 3. No acute findings seen. If the patient remains enthesopathic and there is no contraindication to obtaining an MRI scan, further assessment with MRI scan of the head with and without contrast is recommended.
--- NOTE | 2017-04-11 15:53 | Cons- Nephrology ---
General Information and HPI Consulting Request Date of Consult: 04/11/17 Requested By: JEANNIE ANN MD Reason for Consult: Acute renal failure Source of Information: old records, [facility] Exam Limitations: unable to give history, not alert/orientated, confusion, physical impairment History of Present Illness: I have been asked to see this 71-year-old gentleman because of a rising serum creatinine. 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 He was discharged on vancomycin and ceftazidime. Baseline creatinine had been normal (0.7) but he was recently found to be more confused. Lab work on 2016 showed a leukocytosis of 19.3 and serum creatinine was found to be elevated at 2.0 prompting this consultation request. It should be noted that vancomycin trough levels were elevated as an outpatient as high as the mid 30s. He is now admitted for further evaluation and management. As of yesterday, his antibiotics have been placed on hold at the suggestion of ID. Creatinine has really come down today to 1.7 after he received 2 L of IV normal saline. His past medical history is quite complex and is as noted below. Past medical history is positive for diabetes mellitus, coronary artery disease (status post CABG) cystoscopy, pulmonary embolism (on Xarelto), abdominal aortic aneurysm status post endovascular repair complicated by spinal shock with resultant paraplegia and need for colostomy and suprapubic urinary catheter. Results of the history of decubitus ulcers with associated osteomyelitis and bacteremia as noted above. Medications: See below Allergies: Ibuprofen Family history: Positive for diabetes mellitus and coronary artery disease in his mother and diabetes mellitus and a brother. No known family history of kidney disease. Social history: [facility] resident, former smoker, no known alcohol abuse. Allergies/Medications Allergies: Coded Allergies: ibuprofen (UNKNOWN 01/18/17) Home Med List: Acetaminophen (Q-Pap) 325 MG TABLET 2 TAB PO Q4H PRN PAIN/TEMP>/100 (Reported ) Acetaminophen (Acephen) 650 MG SUPP.RECT 1 SUPP MO Q4H PRN PAIN/TEMP>100 ( Reported) Aspirin (Ecotrin*) 81 MG TABLET.DR 1 TAB PO DAILY HEART/BLOOD (Reported) Atorvastatin Calcium (Lipitor) 10 MG TABLET 1 TAB PO QPM CHOLESTEROL ( Reported) Baclofen 10 MG TABLET 1 TAB PO DAILY spams (Reported) Ceftazidime 2 GRAM VIAL 2 GM IV Q8 ANTIBIOTIC, INFECTION (Reported) Cyanocobalamin (Vitamin B-12) (Vitamin B-12) 100 MCG TABLET 1 TAB PO DAILY SUPPLEMENT (Reported) Ergocalciferol (Vitamin D2) (Vitamin D2) 50,000 UNIT CAPSULE 1 CAP PO Q30D SUPPLEMENT (Reported) Furosemide (Lasix) 20 MG TABLET 1 TAB PO Q48 DIURETIC (Reported) Insulin Aspart, Recombinant (Novolog Flexpen) (Unknown Strength) INSULN.PEN ( Unknown Dose) SC BID DIABETES (Reported) Ipratropium/Albuterol Sulfate (Iprat-Albut 0.5-3(2.5) MG/3 Ml) 0.5 MG-3 MG (2.5 MG BASE)/3 ML AMPUL.NEB 1 VIAL INH TID RESPIRATORY (Reported) Levetiracetam (Keppra) 500 MG TABLET 1 TAB PO QAM seizures (Reported) Lisinopril (Zestril) 10 MG TABLET 1 TAB PO DAILY BP (Reported) Magnesium Hydroxide (Milk Of Magnesia) 400 MG/5 ML ORAL.SUSP 30 ML PO DAILY PRN CONSTIPATION (Reported) Melatonin 5 MG TABLET 1 TAB PO QHS SLEEP (Reported) Metformin HCl 500 MG TABLET 1 TAB PO BID DM (Reported) Mirtazapine 15 MG TABLET 0.5 TAB PO QHS UNKNOWN (Reported) Mometasone/Formoterol (Dulera 100 Mcg/5 Mcg Inhaler) 100 MCG-5 MCG/ACTUATION HFA.AER.AD 2 PUF INH BID RESPIRATORY (Reported) Multivitamin (Multi-Day Vitamins) 1 EACH TABLET 1 TAB PO DAILY SUPPLEMENT ( Reported) [place]-3/Dha/Epa/Fish Oil (Fish Oil 1,000 MG Softgel) 1,000 MG (120 MG-180 MG) CAPSULE 1 CAP PO DAILY SUPPLEMENT (Reported) Omeprazole 20 MG CAPSULE.DR 1 CAP PO DAILY GI (Reported) Oxycodone HCl 10 MG TABLET 1 TAB PO Q8H PAIN (Reported) Protein Supplement (Promod) 946 ML LIQUID 30 ML PO TID SUPPLEMENT (Reported) Psyllium Husk (Metamucil) 0.52 GRAM CAPSULE 1 CAP PO DAILY SUPPLEMENT ( Reported) Rivaroxaban (Xarelto) 20 MG TABLET 1 TAB PO DAILY Pumonary Embolism Saccharomyces Boulardii (Florastor) 250 MG CAPSULE 1 TAB PO QHS PROBIOTIC ( Reported) Tolterodine Tartrate (Detrol LA) 4 MG CAP.ER.24H 1 CAP PO BID BLADDER ( Reported) Tramadol HCl 50 MG TABLET 1 TAB PO BIDP PRN PAIN (Reported) Trazodone HCl 50 MG TABLET 0.5 TAB PO Q12H PRN UNKNOWN (Reported) Vancomycin/0.9 % Sod Chloride (Vancomycin 1 G/200ML-0.9% NaCl) 1 GRAM/200 ML FROZ.PIGGY 1,000 MG IV Q12 osteomyelitis Review of Systems Review of Systems: Not feasible Past History Travel History Traveled to [place] past 21 day No Medical History Neurological: PARAPLEGIA STATUS POST SPINAL SHOCK POSTOP EENT: NONE Cardiovascular: CAD, hypertension, hyperlipidemia, ABDOMINAL ANEURYSM Respiratory: asthma, pulmonary embolism, pneumonia Gastrointestinal: GERD, upper GI bleed, C. 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 Needs Assist: dressing, toileting, bathing. Ambulation: non-ambulatory IADLs Needs Assist: shopping, housework, finances, food prep, telephone, transportation, medication admin. Exam & Diagnostic Data Vital Signs and I&O Vital Signs Date Time Temp Pulse Resp B/P B/P Pulse O2 O2 Flow FiO2 Mean Ox Delivery Rate 04/11 1411 98.4 100 16 120/60 95 Room Air 04/11 0915 93 Room Air 04/11 0800 95 Room Air 04/11 0651 98.3 110 16 112/56 95 Room Air 04/11 0000 Room Air 04/10 2233 98.5 99 16 120/62 94 Room Air 04/10 2108 Room Air 04/10 2108 93 Room Air 04/10 1800 97.0 90 16 128/56 04/10 1600 97.0 90 16 128/56 04/10 1600 97.0 90 16 128/56 96 Room Air Intake & Output 04/11 0400 04/10 0400 04/09 0400 Intake Total 420 690 Output Total 525 650 400 Balance -105 40 -400 Intake, IV 300 450 Intake, Oral 120 240 Output, Stool 0 Output, Urine 525 650 400 Patient 190 lb Weight Weight Reported by Patient Measurement Method Physical Exam: General: Well-developed, very lethargic albeit somewhat arousable white male Skin: Multiple tattoos, no rash or jaundice HEENT: Conjunctivae pale, sclerae anicteric Neck: Without masses or adenopathy Chest: Clear anterolaterally Heart: Regular rhythm without rub or S3 Abdomen: Soft and nontender with a left lower quadrant colostomy and a suprapubic cystostomy tube Extremities: Contractures, heel ulcers, no significant edema Neuro: Lethargic although arousable, nonverbal, paraplegia, no overt myoclonic activity Assessment/Plan Assessment/Recommendations Assessment: 71-year-old man with multiple serious comorbidities as noted in detail above, now admitted with altered mental status and acute kidney injury while being treated for Pseudomonas and MRSA osteomyelitis/bacteremia with vancomycin and ceftazidime. The differential diagnosis of the ERICKA includes prerenal factors ( dehydration), acute tubular necrosis secondary to vancomycin and acute interstitial nephritis secondary to ceftazidime. The response to IV fluids supports the first diagnosis although the high vancomycin trough levels also supports a diagnosis of vancomycin nephrotoxicity. There is no evidence for acute interstitial nephritis per se in the absence of eosinophilia, fever or skin rash. Finally, with regard to his altered mental status, the etiology is unclear. I suspect that is toxic metabolic perhaps related to sepsis. It would be unusual to have uremic encephalopathy at this level of renal dysfunction. Of course, a structural or infectious TECHNICAL PHOTOGRAPHER lesion needs to be considered and ruled out. Recommendations: 1. Check fractional excretion of sodium 2. Would also check phosphorus, magnesium and CK levels 3. IV normal saline at 75 mL/h 4. Agree with holding antibiotics at this time as suggested by ID 5. Cultures 6. Neuro evaluation including head CT Thank you. Will follow up.
--- NOTE | 2017-04-11 19:23 | Cons- Neurology ---
General Information and HPI Consulting Request Date of Consult: 04/11/17 Requested By: JEANNIE ANN MD Reason for Consult: AMS Source of Information: patient, old records Exam Limitations: poor historian History of Present Illness: 71 year old man with paraplegia due to surgical complication, and a long past medical history, presenting to the hospital from an ECF due to confusion. He is a very poor historian to the following information is taken from the records .His past medical history is significant for diabetes, coronary artery disease, recently diagnosed with a pulmonary embolism and paraplegia following spinal shock after surgery for an aortic aneurysm , status post placement of a suprapubic cystostomy and diverting colostomy, chronic indwelling suprapubic catheter, with underlying osteomyelitis treated with multiple courses of antibiotics, with an ostectomy also performed, MRSA isolated from the sputum, GI bleed secondary to a gastric ulcer, persistent leukocytosis, thought possibly secondary to the MRSA, history of diarrhea and C. difficile positive PCR today by mouth Alida, admitted in February 2017 to [facility] for ischemia and osteomyelitis, with blood cultures growing MRSA, He was sent to the hospital from extended care facility for altered mental status, confusion, increased restlessness also pulled out his PICC line early on the day of admission. At the time of my visit, he is alert, perseverant and with little insight. He is aware that he is at [place] but disoriented to time. Allergies/Medications Allergies: Coded Allergies: ibuprofen (UNKNOWN 01/18/17) Home Med List: Acetaminophen (Q-Pap) 325 MG TABLET 2 TAB PO Q4H PRN PAIN/TEMP>/100 (Reported ) Acetaminophen (Acephen) 650 MG SUPP.RECT 1 SUPP ID Q4H PRN PAIN/TEMP>100 ( Reported) Aspirin (Ecotrin*) 81 MG TABLET.DR 1 TAB PO DAILY HEART/BLOOD (Reported) Atorvastatin Calcium (Lipitor) 10 MG TABLET 1 TAB PO QPM CHOLESTEROL ( Reported) Baclofen 10 MG TABLET 1 TAB PO DAILY spams (Reported) Ceftazidime 2 GRAM VIAL 2 GM IV Q8 ANTIBIOTIC, INFECTION (Reported) Cyanocobalamin (Vitamin B-12) (Vitamin B-12) 100 MCG TABLET 1 TAB PO DAILY SUPPLEMENT (Reported) Ergocalciferol (Vitamin D2) (Vitamin D2) 50,000 UNIT CAPSULE 1 CAP PO Q30D SUPPLEMENT (Reported) Furosemide (Lasix) 20 MG TABLET 1 TAB PO Q48 DIURETIC (Reported) Insulin Aspart, Recombinant (Novolog Flexpen) (Unknown Strength) INSULN.PEN ( Unknown Dose) SC BID DIABETES (Reported) Ipratropium/Albuterol Sulfate (Iprat-Albut 0.5-3(2.5) MG/3 Ml) 0.5 MG-3 MG (2.5 MG BASE)/3 ML AMPUL.NEB 1 VIAL INH TID RESPIRATORY (Reported) Levetiracetam (Keppra) 500 MG TABLET 1 TAB PO QAM seizures (Reported) Lisinopril (Zestril) 10 MG TABLET 1 TAB PO DAILY BP (Reported) Magnesium Hydroxide (Milk Of Magnesia) 400 MG/5 ML ORAL.SUSP 30 ML PO DAILY PRN CONSTIPATION (Reported) Melatonin 5 MG TABLET 1 TAB PO QHS SLEEP (Reported) Metformin HCl 500 MG TABLET 1 TAB PO BID DM (Reported) Mirtazapine 15 MG TABLET 0.5 TAB PO QHS UNKNOWN (Reported) Mometasone/Formoterol (Dulera 100 Mcg/5 Mcg Inhaler) 100 MCG-5 MCG/ACTUATION HFA.AER.AD 2 PUF INH BID RESPIRATORY (Reported) Multivitamin (Multi-Day Vitamins) 1 EACH TABLET 1 TAB PO DAILY SUPPLEMENT ( Reported) Primghar-3/Dha/Epa/Fish Oil (Fish Oil 1,000 MG Softgel) 1,000 MG (120 MG-180 MG) CAPSULE 1 CAP PO DAILY SUPPLEMENT (Reported) Omeprazole 20 MG CAPSULE.DR 1 CAP PO DAILY GI (Reported) Oxycodone HCl 10 MG TABLET 1 TAB PO Q8H PAIN (Reported) Protein Supplement (Promod) 946 ML LIQUID 30 ML PO TID SUPPLEMENT (Reported) Psyllium Husk (Metamucil) 0.52 GRAM CAPSULE 1 CAP PO DAILY SUPPLEMENT ( Reported) Rivaroxaban (Xarelto) 20 MG TABLET 1 TAB PO DAILY Pumonary Embolism Saccharomyces Boulardii (Florastor) 250 MG CAPSULE 1 TAB PO QHS PROBIOTIC ( Reported) Tolterodine Tartrate (Detrol LA) 4 MG CAP.ER.24H 1 CAP PO BID BLADDER ( Reported) Tramadol HCl 50 MG TABLET 1 TAB PO BIDP PRN PAIN (Reported) Trazodone HCl 50 MG TABLET 0.5 TAB PO Q12H PRN UNKNOWN (Reported) Vancomycin/0.9 % Sod Chloride (Vancomycin 1 G/200ML-0.9% NaCl) 1 GRAM/200 ML FROZ.PIGGY 1,000 MG IV Q12 osteomyelitis Current Medications: Current Medications Sig/Mey Start time Last Medication Dose Route Stop Time Status Admin Acetaminophen 1,000 MG Q6P PRN 04/11 1530 AC N/A 1 UNIT IV Albuterol Sulfate 3 ML TID 04/10 2200 AC 04/11 INH 1339 Aspirin 81 MG DAILY 04/11 1000 AC PO Atorvastatin Calcium 10 MG QPM 04/11 2200 CAN PO Atorvastatin Calcium 10 MG 1700 04/11 1700 AC PO Baclofen 10 MG DAILY 04/10 1821 AC 04/10 PO 2226 Collagenase 1 HILARIA DAILY 04/11 1000 AC TOP Cyanocobalamin 250 MCG DAILY 04/11 1000 AC PO Ipratropium [place] 2.5 ML TID 04/10 2200 AC 04/11 INH 1339 Levetiracetam 500 MG QAM 04/11 1000 AC PO Melatonin 5 MG AT BEDTIME 04/10 2200 AC 04/10 PO 2227 Mirtazapine 15 MG AT BEDTIME 04/10 2200 AC 04/10 PO 2227 Omeprazole 20 MG DAILY AC 04/10 1820 AC 04/10 PO 1854 Rivaroxaban 20 MG DAILY 04/11 1000 AC PO Sodium Chloride 1,000 ML Q6H 04/10 1600 AC 04/11 IV 1133 Sodium Hypochlorite 1 HILARIA DAILY PRN 04/11 1700 AC TOP Review of Systems Review of Systems: As per HPI. Past History Travel History Traveled to [place] past 21 day No Medical History Neurological: PARAPLEGIA STATUS POST SPINAL SHOCK POSTOP EENT: NONE Cardiovascular: CAD, hypertension, hyperlipidemia, ABDOMINAL ANEURYSM Respiratory: asthma, pulmonary embolism, pneumonia Gastrointestinal: GERD, upper GI bleed, C. difficile Hepatic: NONE Renal: neurogenic bladder, UTI Musculoskeletal: decubitis ulcer (OSTEOMYELITIS) Psychiatric: anxiety, depression Endocrine: DIABETES TYPE 2 Blood Disorders: NONE Cancer(s): prostate cancer RECONNAISSANCE MAN/Reproductive: NONE Surgical History Surgical History: CABG, AAA repair x2 once 2002, and 2013 status post diverting colostomy status post suprapubic cystostomy Family History Relations & Conditions If Any: MOTHER FH: coronary artery disease FH: diabetes mellitus BROTHER FH: diabetes mellitus SISTER Psychosocial History Services at Home: Home Health Aide, Nursing Primary Language: Bahamian Smoking Status: Former Smoker ETOH Use: denies use Functional Ability ADLs Independent: eating. Needs Assist: dressing, toileting, bathing. Ambulation: non-ambulatory IADLs Needs Assist: shopping, housework, finances, food prep, telephone, transportation, medication admin. Exam & Diagnostic Data Vital Signs and I&O Vital Signs Date Time Temp Pulse Resp B/P B/P Pulse O2 O2 Flow FiO2 Mean Ox Delivery Rate 04/11 1411 98.4 100 16 120/60 95 Room Air 04/11 0915 93 Room Air 04/11 0800 95 Room Air 04/11 0651 98.3 110 16 112/56 95 Room Air 04/11 0000 Room Air 04/10 2233 98.5 99 16 120/62 94 Room Air 04/10 2108 Room Air 04/10 2108 93 Room Air Intake & Output 04/11 1600 04/11 0800 04/11 0000 Intake Total 420 690 Output Total 525 650 Balance -105 40 Intake, IV 300 450 Intake, Oral 120 240 Output, Stool 0 Output, Urine 525 650 Physical Exam: Alert and oriented to place and self but not time. EOMI, KEIRA, face symmetric, fluent, perseverant, little insight. Arm strength intact. Otherwise leg are plegic. Not cooperative with the rest of the exam. Last 48 Hours of Lab Results: Laboratory Tests 04/11 04/10 04/10 0925 1623 1343 Chemistry Sodium (137 - 145 mmol/L) 141 Potassium (3.5 - 5.1 mmol/L) 4.8 Chloride (98 - 107 mmol/L) 112 H Carbon Dioxide (22 - 30 mmol/L) 18 L Anion Gap (5 - 16) 12 BUN (9 - 20 mg/dL) 70 H Creatinine (0.7 - 1.2 mg/dL) 1.7 H Estimated GFR (>60 ml/min) 40 L BUN/Creatinine Ratio (7 - 25 %) 41.2 H Lactic Acid Cancelled Phosphorus (2.5 - 4.5 mg/dL) 5.6 H Magnesium (1.6 - 2.3 mg/dL) 2.1 Ammonia (9 - 30 umol/L) < 9 L Creatine Kinase (55 - 170 U/L) < 20 L Hematology CBC w Diff MAN DIFF ORDERED WBC (4.8 - 10.8 /CUMM) 15.1 H RBC (4.70 - 6.10 /CUMM) 3.16 L Hgb (14.0 - 18.0 G/DL) 8.1 L Hct (42 - 52 %) 25.7 L MCV (80.0 - 94.0 FL) 81.3 MCH (27.0 - 31.0 PG) 25.5 L RDW (11.5 - 14.5 %) 17.4 H Plt Count (130 - 400 /CUMM) 792 H MPV (7.4 - 10.4 FL) 6.9 L Gran % (42.2 - 75.2 %) 84.2 H Lymphocytes % (20.5 - 51.1 %) 4.8 L Monocytes % (1.7 - 9.3 %) 9.3 Eosinophils % (0 - 5 %) 1.3 Basophils % (0.0 - 2.0 %) 0.4 Absolute Granulocytes (1.4 - 6.5 /CUMM) 12.7 H Absolute Lymphocytes (1.2 - 3.4 /CUMM) 0.7 L Absolute Monocytes (0.10 - 0.60 /CUMM) 1.4 H Absolute Eosinophils (0.0 - 0.7 /CUMM) 0.2 Absolute Basophils (0.0 - 0.2 /CUMM) 0.1 Platelet Estimate (ADEQUATE) INCREASED Polychromasia 1+ Anisocytosis 1+ PUBS MCHC (33.0 - 37.0 G/DL) 31.4 L 04/10 04/10 1130 1110 Chemistry Sodium (137 - 145 mmol/L) 139 Potassium (3.5 - 5.1 mmol/L) 4.7 Chloride (98 - 107 mmol/L) 105 Carbon Dioxide (22 - 30 mmol/L) 19 L Anion Gap (5 - 16) 15 BUN (9 - 20 mg/dL) 73 H Creatinine (0.7 - 1.2 mg/dL) 2.0 H Estimated GFR (>60 ml/min) 33 L BUN/Creatinine Ratio (7 - 25 %) 36.5 H Glucose (65 - 99 mg/dL) 76 Lactic Acid (0.7 - 2.1 mmol/L) 0.9 Calcium (8.4 - 10.2 mg/dL) 9.6 Total Bilirubin (0.2 - 1.3 mg/dL) 0.4 AST (17 - 59 U/L) 12 L ALT (21 - 72 U/L) 20 L Alkaline Phosphatase (< 127 U/L) 152 H Troponin I (<0.11 ng/ml) < 0.01 Total Protein (6.3 - 8.2 g/dL) 7.5 Albumin (3.5 - 5.0 g/dL) 2.9 L Globulin (1.9 - 4.2 gm/dL) 4.6 H Albumin/Globulin Ratio (1.1 - 2.2 %) 0.6 L Hematology CBC w Diff MAN DIFF ORDERED WBC (4.8 - 10.8 /CUMM) 15.2 H RBC (4.70 - 6.10 /CUMM) 2.89 L Hgb (14.0 - 18.0 G/DL) 7.5 L Hct (42 - 52 %) 23.5 L MCV (80.0 - 94.0 FL) 81.2 MCH (27.0 - 31.0 PG) 25.9 L RDW (11.5 - 14.5 %) 17.9 H Plt Count (130 - 400 /CUMM) 781 H MPV (7.4 - 10.4 FL) 6.8 L Gran % (42.2 - 75.2 %) 84.9 H Lymphocytes % (20.5 - 51.1 %) 5.3 L Monocytes % (1.7 - 9.3 %) 7.8 Eosinophils % (0 - 5 %) 1.8 Basophils % (0.0 - 2.0 %) 0.2 Absolute Granulocytes (1.4 - 6.5 /CUMM) 12.9 H Absolute Lymphocytes (1.2 - 3.4 /CUMM) 0.8 L Absolute Monocytes (0.10 - 0.60 /CUMM) 1.2 H Absolute Eosinophils (0.0 - 0.7 /CUMM) 0.3 Absolute Basophils (0.0 - 0.2 /CUMM) 0 Platelet Estimate (ADEQUATE) INCREASED Hypochromic-Microcytic 2+ Anisocytosis 1+ PUBS MCHC (33.0 - 37.0 G/DL) 31.8 L ESR Westergren (0 - 10 MM) > 130 H Toxicology Random Vancomycin (ug/ml) 26.0 Urines Urine Color (YEL,AMB,STR) YEL Urine Clarity (CLEAR) HAZY H Urine pH (5.0 - 8.0) 6.0 Ur Specific [place] (1.001 - 1.035) 1.020 Urine Protein (NEG,<30 MG/DL) 30 H Urine Ketones (NEG) NEG Urine Nitrite (NEG) NEG Urine Bilirubin (NEG) NEG Urine Urobilinogen (0.1 - 1.0 EU/dl) 0.2 Ur Leukocyte Esterase (NEG) MOD H Ur Microscopic SEDIMENT EXAMINED Urine RBC (0 - 5 /HPF) 1-3 Urine WBC (0 - 2 /HPF) 15-25 H Urine Bacteria (NEG/NONE) FEW H Micro UA Comment Urine Hemoglobin (NEG) SMALL H Urine Glucose (N MG/DL) NEG Imaging/Other Studies: NCHCT IMPRESSION: 1. No evidence of acute intracranial hemorrhage or territorial infarction. 2. 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 3. No acute findings seen. If the patient remains enthesopathic and there is no contraindication to obtaining an MRI scan, further assessment with MRI scan of the head with and without contrast is recommended. Assessment/Plan Assessment: 71 year old man with an exxtensive past medical history including two previous frontal strokes, and iatrogenic spinal ischemia resulting in paraplegia. More recently he has been dealing with osteomyleitis and multiple other metabolic issues. It is therefore not surprising considering his previous frontal injury and ongoing issues that he presents with encephalopathy (hyperactive). Recommendations: Recommend focusing on treatment of the underlying infection and metabolic abnormalities. No other testing required from a neurological standpoint. Consult Acknowledgment - Thank you for your consult request.
--- NOTE | 2017-04-12 06:20 | Event Note ---
Event Note Event Note: On 2 consecutive days, patient was requesting to leave AMA, refusing his medication, vital signs and glucose check. According to nurse supervisor paint roller covers, patient can be forced to get his medication or vitals unless got evaluated by psych. Please obtain psych evaluation to determine patient's mentation. Patient was given 1 dose of IM Haldol 1 mg to calm him down.
--- NOTE | 2017-04-12 09:24 | PN- Att Addend ---
Attending Addendum Attending Brief Note On evaluation this morning he appears confused but alert. He is having visual hallucinations and thinks he is seeing cobwebs. General Appearance: Alert, not oriented, and visual hallucinations Skin: Stage IV decubitus, bilateral heel ulcers Cardiovascular: Regular Rate, Normal S1, Normal S2, No Murmurs Lungs: Decreased air entry Abdomen: Colostomy bag in place Neurological: Tremors with outstretched hands, cerebellar signs normal Assessment Patient still confused and having visual hallucinations. No meningeal signs and he has remained afebrile. Blood culture and urine culture has remained negative. CAT scan of the head is negative for intracranial lesions or acute stroke. Suspicion for toxic encephalopathy is still high. Similarly acute kidney injury is likely drug-induced. His kidney function and mental status has somewhat improved. We will continue to hold off on antibiotics and observe. Plan Follow off antibiotics daily labs Follow nephro and ID recommendations Hold all nephrotoxic drugs Continue other meds Current Medications Sig/Mey Start time Last Medication Dose Route Stop Time Status Admin Acetaminophen 1,000 MG Q6P PRN 04/11 1530 AC N/A 1 UNIT IV Albuterol Sulfate 3 ML TID 04/10 2200 AC 04/11 INH 1915 Aspirin 81 MG DAILY 04/11 1000 AC PO Atorvastatin Calcium 10 MG 1700 04/11 1700 AC PO Baclofen 10 MG DAILY 04/10 1821 AC 04/10 PO 2226 Collagenase 1 HILARIA DAILY 04/11 1000 AC 04/11 TOP 1931 Cyanocobalamin 250 MCG DAILY 04/11 1000 AC PO Haloperidol 1 MG ONCE ONE 04/12 0015 DC 04/12 IM 04/12 0016 0046 Ipratropium [place] 2.5 ML TID 04/10 2200 AC 04/11 INH 1915 Levetiracetam 500 MG QAM 04/11 1000 AC PO Melatonin 5 MG AT BEDTIME 04/10 2200 AC 04/10 PO 2227 Mirtazapine 15 MG AT BEDTIME 04/10 2200 AC 04/10 PO 2227 Omeprazole 20 MG DAILY AC 04/10 1820 AC 04/10 PO 1854 Rivaroxaban 20 MG DAILY 04/11 1000 AC PO Sodium Chloride 1,000 ML Q6H 04/10 1600 AC 04/11 IV 1133 Sodium Hypochlorite 1 HILARIA DAILY PRN 04/11 1700 AC TOP Laboratory Tests 04/11 1715 Urines Urine Osmolality (300 - 1000 MOSM/KG) 365 Ur Random Creatinine (mg/dL) 24.1 Ur Random Sodium (30 - 90 mmol/L) 82 Ur Random Potassium (mmol/L) 19.2 Fraction Sodium Excret (<1% %) 4.1 H Vital Signs Date Time Temp Pulse Resp B/P B/P Pulse O2 O2 Flow FiO2 Mean Ox Delivery Rate 04/12 0000 Room Air 04/11 1915 97 Room Air 04/11 1411 98.4 100 16 120/60 95 Room Air
--- NOTE | 2017-04-12 10:06 | Cons- Psychiatry ---
Psychiatric Consult Date of Consult: 04/12/17 Reason for Consult: "Refusing all medication, vitals and labs, wants to leave AMA, please assess competency (capacity), very agitated." Ordered by Dr. Mateo Saleh attending History of Present Illness: Identifying Info: 71-year-old male brought in by ambulance from nursing facility with altered mental status on 04/10/2017 and admitted to medicine. CC: "I'm eating lunch... red cabbage" HPI: Due to confusion patient unable to provide accurate history. He states he is currently in the hospital because he had a stroke. Per chart patient self DC'd a PICC line at [facility] prior to admission. He has been increasingly confused and restless. Per staff report since admission patient has been refusing care and agitated at times. He required a one-time dose of haloperidol IM at approximately midnight last night. Collateral obtained from patient's sister and reported healthcare TON Braun ([phone]). She reports that her brother has had no history of dementia or mental illness. He has been on vancomycin for several weeks due to recurrent urinary tract infections. In the past while being treated for infection he experienced transient forgetfulness but he was always redirectable. She reports this Saturday he started having altered mentation to a degree which she has not had before and could not be redirected. PMH: Please see the H&P for a complete listing Diabetes, coronary artery disease, recently diagnosed with a pulmonary embolism and paraplegia following spinal shock after surgery for an aortic aneurysm , status post placement of a suprapubic cystostomy and diverting colostomy, chronic indwelling suprapubic catheter, with underlying osteomyelitis treated with multiple courses of antibiotics, with an ostectomy also performed, MRSA isolated from the sputum, GI bleed secondary to a fundic ulcer, persistent leukocytosis, thought possibly secondary to the MRSA, history of diarrhea and C. difficile positive PCR today by mouth Vanco Past Psych History: None per family report Family Psych History: None per family report Substance History Unobtained Family Substance History: Unobtained Social: Patient is . Reports he is 2 adult children. 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 Abuse/Trauma: Unobtained Current Home Psychotropic Medications: Mirtazepine 7.5mg qhs Melatonin 5mg qhs Trazodone 25mg q12h PRN (anxiety? agitation?) Current Hospital Psychotropic Medications: Med Melatonin 5 MG PO AT BEDTIME 04/10/17 2200 Mirtazapine 15 MG PO AT BEDTIME 04/10/17 220 Allergies: Coded Allergies: ibuprofen (UNKNOWN 01/18/17) Current Medications: Current Medications Sig/Mey Start time Last Medication Dose Route Stop Time Status Admin Acetaminophen 1,000 MG Q6P PRN 04/11 1530 AC N/A 1 UNIT IV Albuterol Sulfate 3 ML TID 04/10 2200 AC 04/11 INH 1915 Aspirin 81 MG DAILY 04/11 1000 AC PO Atorvastatin Calcium 10 MG 1700 04/11 1700 AC PO Baclofen 10 MG DAILY 04/10 1821 AC 04/10 PO 2226 Collagenase 1 HILARIA DAILY 04/11 1000 AC 04/11 TOP 1931 Cyanocobalamin 250 MCG DAILY 04/11 1000 AC PO Haloperidol 1 MG ONCE ONE 04/12 0015 DC 04/12 IM 04/12 0016 0046 Ipratropium [place] 2.5 ML TID 04/10 2200 AC 04/11 INH 1915 Levetiracetam 500 MG QAM 04/11 1000 AC PO Melatonin 5 MG AT BEDTIME 04/10 2200 AC 04/10 PO 2227 Mirtazapine 15 MG AT BEDTIME 04/10 2200 AC 04/10 PO 2227 Omeprazole 20 MG DAILY AC 04/10 1820 AC 04/10 PO 1854 Rivaroxaban 20 MG DAILY 04/11 1000 AC PO Sodium Chloride 1,000 ML Q6H 04/10 1600 AC 04/11 IV 1133 Sodium Hypochlorite 1 HILARIA DAILY PRN 04/11 1700 AC TOP Past History Past Medical History Neurological: PARAPLEGIA STATUS POST SPINAL SHOCK POSTOP EENT: NONE Cardiovascular: CAD, hypertension, hyperlipidemia, ABDOMINAL ANEURYSM Respiratory: asthma, pulmonary embolism, pneumonia Gastrointestinal: GERD, upper GI bleed, C. 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 Past Surgical History Surgical History: CABG, AAA repair x2 once 2002, and 2013 status post diverting colostomy status post suprapubic cystostomy Psychosocial History Strengths/Capabilities: Family support Physical Limitations (Interventions): Multiple chronic illnesses, AMS Psychiatric Treatment History Psych Treatment Psychiatric Treatment No Diagnosis: None previous Risk Factors: age (under 24/over 65), male Substance Use/Abuse History Drug Use/Abuse Substances Used/Abused No Substance Abuse Treatment Substance Abuse Treatment Past Substance Abuse [place] No Assessment/Plan Mental Status Mental Status Exam: Presentation/Appearance: Cooperative with evaluation however pt is unable to participate in interview in meaningful way . [facility] ([facility] 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," place "[place]" Sensorium: Somnolent Eye contact: Fair Affect: Blunted Mood: "Good" Depression: SHANNON Anxiety: SHANNON Thought Content: - Poverty of content Thought Process: Confused Associations: Inappropriate Speech: Great latency in response, somewhat dysarthic Judgment: Poor Insight: Poor Cognition: Memory: Able to name a few facts of past including place and , unable to respond to other questions to assess memory Attention/Concentration: Impaired Fund of Knowledge: SHANNON Abstractions:SHANNON MMSE: Attempted to complete but pt declines to respond to several questions, 0/ 8 (full exam out of 30) on questions related to orientation Capacity assessment At time of interview patient is unable to communicate a choice about treatment options but has refused treatment from other providers in this admission. He does not appear to understand the relevant information, appreciate the situation and it's consequences or reason about treatment options. Lab Results: Laboratory Tests 04/11/17 1715: Urine Osmolality 365, Ur Random Creatinine 24.1, Ur Random Sodium 82, Ur Random Potassium 19.2, Fraction Sodium Excret 4.1 H 04/11/17 0925: Anion Gap 12, Estimated GFR 40 L, BUN/Creatinine Ratio 41.2 H, Phosphorus 5.6 H, Magnesium 2.1, Creatine Kinase < 20 L, CBC w Diff MAN DIFF ORDERED, RBC 3.16 L, MCV 81.3, MCH 25.5 L, RDW 17.4 H, MPV 6.9 L, Gran % 84.2 H, Lymphocytes % 4.8 L, Monocytes % 9.3, Eosinophils % 1.3, Basophils % 0.4, Absolute Granulocytes 12.7 H, Absolute Lymphocytes 0.7 L, Absolute Monocytes 1.4 H, Absolute Eosinophils 0.2, Absolute Basophils 0.1, Platelet Estimate INCREASED, Polychromasia 1+, Anisocytosis 1+, PUBS MCHC 31.4 L 04/10/17 1623: Ammonia < 9 L 04/10/17 1343: Lactic Acid Cancelled 04/10/17 1130: Urine Color YEL, Urine Clarity HAZY H, Urine pH 6.0, Ur Specific [place] 1.020, Urine Protein 30 H, Urine Ketones NEG, Urine Nitrite NEG, Urine Bilirubin NEG, Urine Urobilinogen 0.2, Ur Leukocyte Esterase MOD H, Ur Microscopic SEDIMENT EXAMINED, Urine RBC 1-3, Urine WBC 15-25 H, Urine Bacteria FEW H, Micro UA Comment , Urine Hemoglobin SMALL H, Urine Glucose NEG 04/10/17 1110: Anion Gap 15, Estimated GFR 33 L, BUN/Creatinine Ratio 36.5 H, Glucose 76, Lactic Acid 0.9, Calcium 9.6, Total Bilirubin 0.4, AST 12 L, ALT 20 L, Alkaline Phosphatase 152 H, Troponin I < 0.01, Total Protein 7.5, Albumin 2.9 L, Globulin 4.6 H, Albumin/Globulin Ratio 0.6 L, CBC w Diff MAN DIFF ORDERED, RBC 2.89 L, MCV 81.2, MCH 25.9 L, RDW 17.9 H, MPV 6.8 L, Gran % 84.9 H, Lymphocytes % 5.3 L, Monocytes % 7.8, Eosinophils % 1.8, Basophils % 0.2, Absolute Granulocytes 12.9 H, Absolute Lymphocytes 0.8 L, Absolute Monocytes 1.2 H, Absolute Eosinophils 0.3, Absolute Basophils 0, Platelet Estimate INCREASED, Hypochromic-Microcytic 2+, Anisocytosis 1+, PUBS MCHC 31.8 L, ESR Westergren > 130 H, Random Vancomycin 26.0 Microbiology 04/10 1549 STOOL: Clostridium difficile Toxin A & B - CAN Cancelled: NO STOOL SAMPLE COLLECTED 04/10 1130 URINE ROUT: Urine Culture - RES YEAST 04/10 1129 BLOOD: Blood Culture - RES 04/10 1110 BLOOD: Blood Culture - RES Diffential Diagnosis: Delirium due to multiple etiologies, mixed level of activity Impression: 71-year-old male presents with altered mental status in the context of chronic urinary tract infections and current ERICKA. At present he is acutely delirious and lacks healthcare decision-making capacity. His sister, Karlene Braun ([phone]) is identified as Health Care POA in EMR and should be deferred to for healthcare decisions. Provisional Treatment Plan: 1. Please confirm legal documentation is in place for the patient's healthcare POA. Contact hospital legal department with any questions. 2. Please continue to avoid benzodiazepines, opioid analgesics, and meds with strong anticholinergic properties as much as possible to prevent further confusion. 3. Please initiate the following nonpharmacologic interventions: -Avoid nursing and medical procedures during sleep hours whenever possible - Cluster at night interventions that must be completed as much as possible to minimize sleep disruption - Decrease noise patient area during sleeping hours - Reduce lighting at night - Ensure patient has any sensory aids close by that he regularly uses 4. Continue melatonin, consider increasing dose to 10 mg. 5. Please reduce mirtazapine to his regular home dose of 7.5 mg. This dose may be more sedating at bedtime. 6. If patient becomes agitated again would use antipsychotics with caution as they've been associated with greater risk of CVA and sudden in the elderly. Additionally QTc is borderline elevated. Nonpharmacologic interventions would be preferred. Weigh risks and benefits carefully. Thank you for including psychiatry in this case. We are signing off, please reconsult if needed. A total of 60 minutes was spent with the patient with more than 50% of the time spent in counseling and/or coordination of care.
--- NOTE | 2017-04-12 11:35 | PN- Nephrology ---
Assessment/Plan Assessment: 1. Acute kidney injury likely multifactorial including prerenal factors, and possibly ATN or AIN. No lab values as yet today. 2. Encephalopathy, likely metabolic 3. Multiple severe comorbidities as previously noted. Suggestion: 1. Patient needs to have his labs monitored daily 2. IV normal saline at 75 mL per hour Subjective Subjective: Patient remains fairly obtunded although arousable with extreme effort. He is unable to answer questions. No labs were drawn today because patient apparently refused. Similarly, he had pulled out his IV access and has not been getting IV fluids. Of note is the fact that his fractional excretion of sodium was elevated at over 4%. CT scan of head --> old cva's, no acute process. Objective Vital Signs and I&Os Date Time Temp Pulse Resp B/P B/P Pulse O2 O2 Flow FiO2 Mean Ox Delivery Rate 04/12 0000 Room Air 04/11 1915 97 Room Air 04/11 1411 98.4 100 16 120/60 95 Room Air Intake & Output 04/12 1600 04/12 0400 04/11 1600 04/11 0400 04/10 1600 04/10 0400 Intake Total 819 361 8703 690 Output Total 450 1050 725 650 400 Balance 30 -610 1045 40 -400 Intake, IV 200 1050 450 Intake, Oral 480 240 720 240 Output, Stool 100 200 Output, Urine 350 1050 525 650 400 Patient 189 lb 190 lb Weight Weight Reported by Patient Measurement Method Physical Exam: General: Well-developed, very lethargic albeit somewhat arousable white male Skin: Multiple tattoos, no rash or jaundice HEENT: Conjunctivae pale, sclerae anicteric, mucous membranes dry Neck: Without masses or adenopathy Chest: Clear anterolaterally Heart: Regular rhythm without rub or S3 Abdomen: Soft and nontender with a left lower quadrant colostomy and a suprapubic cystostomy tube Extremities: Contractures, heel ulcers, right pedal edema which appears to be new since yesterday Neuro: Lethargic although arousable, nonverbal, paraplegia, no overt myoclonic activity Results Pertinent Lab Results: Laboratory Tests 04/11 04/11 04/10 1715 0925 1623 Chemistry Sodium (137 - 145 mmol/L) 141 Potassium (3.5 - 5.1 mmol/L) 4.8 Chloride (98 - 107 mmol/L) 112 H Carbon Dioxide (22 - 30 mmol/L) 18 L Anion Gap (5 - 16) 12 BUN (9 - 20 mg/dL) 70 H Creatinine (0.7 - 1.2 mg/dL) 1.7 H Estimated GFR (>60 ml/min) 40 L BUN/Creatinine Ratio (7 - 25 %) 41.2 H Phosphorus (2.5 - 4.5 mg/dL) 5.6 H Magnesium (1.6 - 2.3 mg/dL) 2.1 Ammonia (9 - 30 umol/L) < 9 L Creatine Kinase (55 - 170 U/L) < 20 L Hematology CBC w Diff MAN DIFF ORDERED WBC (4.8 - 10.8 /CUMM) 15.1 H RBC (4.70 - 6.10 /CUMM) 3.16 L Hgb (14.0 - 18.0 G/DL) 8.1 L Hct (42 - 52 %) 25.7 L MCV (80.0 - 94.0 FL) 81.3 MCH (27.0 - 31.0 PG) 25.5 L RDW (11.5 - 14.5 %) 17.4 H Plt Count (130 - 400 /CUMM) 792 H MPV (7.4 - 10.4 FL) 6.9 L Gran % (42.2 - 75.2 %) 84.2 H Lymphocytes % (20.5 - 51.1 %) 4.8 L Monocytes % (1.7 - 9.3 %) 9.3 Eosinophils % (0 - 5 %) 1.3 Basophils % (0.0 - 2.0 %) 0.4 Absolute Granulocytes (1.4 - 6.5 /CUMM) 12.7 H Absolute Lymphocytes (1.2 - 3.4 /CUMM) 0.7 L Absolute Monocytes (0.10 - 0.60 /CUMM) 1.4 H Absolute Eosinophils (0.0 - 0.7 /CUMM) 0.2 Absolute Basophils (0.0 - 0.2 /CUMM) 0.1 Platelet Estimate (ADEQUATE) INCREASED Polychromasia 1+ Anisocytosis 1+ PUBS MCHC (33.0 - 37.0 G/DL) 31.4 L Urines Urine Osmolality (300 - 1000 MOSM/KG) 365 Ur Random Creatinine (mg/dL) 24.1 Ur Random Sodium (30 - 90 mmol/L) 82 Ur Random Potassium (mmol/L) 19.2 Fraction Sodium Excret (<1% %) 4.1 H 04/10 04/10 1343 1130 Chemistry Lactic Acid Cancelled Urines Urine Color (YEL,AMB,STR) YEL Urine Clarity (CLEAR) HAZY H Urine pH (5.0 - 8.0) 6.0 Ur Specific [place] (1.001 - 1.035) 1.020 Urine Protein (NEG,<30 MG/DL) 30 H Urine Ketones (NEG) NEG Urine Nitrite (NEG) NEG Urine Bilirubin (NEG) NEG Urine Urobilinogen (0.1 - 1.0 EU/dl) 0.2 Ur Leukocyte Esterase (NEG) MOD H Ur Microscopic SEDIMENT EXAMINED Urine RBC (0 - 5 /HPF) 1-3 Urine WBC (0 - 2 /HPF) 15-25 H Urine Bacteria (NEG/NONE) FEW H Micro UA Comment Urine Hemoglobin (NEG) SMALL H Urine Glucose (N MG/DL) NEG 04/10 1110 Chemistry Sodium (137 - 145 mmol/L) 139 Potassium (3.5 - 5.1 mmol/L) 4.7 Chloride (98 - 107 mmol/L) 105 Carbon Dioxide (22 - 30 mmol/L) 19 L Anion Gap (5 - 16) 15 BUN (9 - 20 mg/dL) 73 H Creatinine (0.7 - 1.2 mg/dL) 2.0 H Estimated GFR (>60 ml/min) 33 L BUN/Creatinine Ratio (7 - 25 %) 36.5 H Glucose (65 - 99 mg/dL) 76 Lactic Acid (0.7 - 2.1 mmol/L) 0.9 Calcium (8.4 - 10.2 mg/dL) 9.6 Total Bilirubin (0.2 - 1.3 mg/dL) 0.4 AST (17 - 59 U/L) 12 L ALT (21 - 72 U/L) 20 L Alkaline Phosphatase (< 127 U/L) 152 H Troponin I (<0.11 ng/ml) < 0.01 Total Protein (6.3 - 8.2 g/dL) 7.5 Albumin (3.5 - 5.0 g/dL) 2.9 L Globulin (1.9 - 4.2 gm/dL) 4.6 H Albumin/Globulin Ratio (1.1 - 2.2 %) 0.6 L Hematology CBC w Diff MAN DIFF ORDERED WBC (4.8 - 10.8 /CUMM) 15.2 H RBC (4.70 - 6.10 /CUMM) 2.89 L Hgb (14.0 - 18.0 G/DL) 7.5 L Hct (42 - 52 %) 23.5 L MCV (80.0 - 94.0 FL) 81.2 MCH (27.0 - 31.0 PG) 25.9 L RDW (11.5 - 14.5 %) 17.9 H Plt Count (130 - 400 /CUMM) 781 H MPV (7.4 - 10.4 FL) 6.8 L Gran % (42.2 - 75.2 %) 84.9 H Lymphocytes % (20.5 - 51.1 %) 5.3 L Monocytes % (1.7 - 9.3 %) 7.8 Eosinophils % (0 - 5 %) 1.8 Basophils % (0.0 - 2.0 %) 0.2 Absolute Granulocytes (1.4 - 6.5 /CUMM) 12.9 H Absolute Lymphocytes (1.2 - 3.4 /CUMM) 0.8 L Absolute Monocytes (0.10 - 0.60 /CUMM) 1.2 H Absolute Eosinophils (0.0 - 0.7 /CUMM) 0.3 Absolute Basophils (0.0 - 0.2 /CUMM) 0 Platelet Estimate (ADEQUATE) INCREASED Hypochromic-Microcytic 2+ Anisocytosis 1+ PUBS MCHC (33.0 - 37.0 G/DL) 31.8 L ESR Westergren (0 - 10 MM) > 130 H Toxicology Random Vancomycin (ug/ml) 26.0
--- NOTE | 2017-04-12 12:34 | PN- Infect Dx ---
Subjective Subjective: Afebrile without complaints Objective Last 24 Hrs of Vital Signs/I&O Vital Signs Date Time Temp Pulse Resp B/P B/P Pulse O2 O2 Flow FiO2 Mean Ox Delivery Rate 04/12 1210 96 Room Air Room Air 04/12 0000 Room Air 04/11 1915 97 Room Air 04/11 1411 98.4 100 16 120/60 95 Room Air Intake & Output 04/12 1600 04/12 0800 04/12 0000 Intake Total 480 440 Output Total 450 1050 Balance 30 -610 Intake, IV 200 Intake, Oral 480 240 Output, Stool 100 Output, Urine 350 1050 Patient 189 lb Weight Physical Exam Other Physical Findings: He remains confused and disoriented though somewhat more appropriate Lungs are clear Heart regular rhythm with a 2/6 systolic ejection murmur Abdomen is soft, nontender with positive bowel sounds; liquid stool in the colostomy; suprapubic cystostomy site with no inflammation Extremities no cyanosis, clubbing or edema; left heel wound clean, with no surrounding erythema; right heel dressing intact Results Last 24 Hours of Lab Results: Laboratory Tests 04/11 1715 Urines Urine Osmolality (300 - 1000 MOSM/KG) 365 Ur Random Creatinine (mg/dL) 24.1 Ur Random Sodium (30 - 90 mmol/L) 82 Ur Random Potassium (mmol/L) 19.2 Fraction Sodium Excret (<1% %) 4.1 H Last 24 Hours of Perfecto Results: Blood cultures 2 April 10 remain negative Recent Imaging Studies: CT of the head April 11 no evidence of any acute intracranial hemorrhage or infarct Assessment/Plan Impression: Encephalopathy persists, though perhaps somewhat improved today, with temperatures remaining normal off antibiotics. His labs have not yet been drawn today and will be helpful in assessing his clinical picture. His acute renal failure is felt to be multifactorial, possibly secondary to his antibiotics or other medications, versus sepsis, though his blood cultures remain negative. 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 His positive urine culture for yeast likely represents colonization secondary to his suprapubic catheter and would not treat at this time. Suggestion: 1. Await labs from today 2. Follow-up recent cultures 3. Continue to follow off antibiotics pending above
--- NOTE | 2017-04-12 12:52 | PN- Housestaff ---
Subjective Follow-up For: Altered mental status Subjective: This morning patient was confused and seeing cockroaches and caterpillars in the room. He is refusing his medications and blood work since last night. He offers no complaints Review of Systems Constitutional: Reports: see HPI. Objective Last 24 Hrs of Vital Signs/I&O Vital Signs Date Time Temp Pulse Resp B/P B/P Pulse O2 O2 Flow FiO2 Mean Ox Delivery Rate 04/12 1210 96 Room Air Room Air 04/12 0000 Room Air 04/11 1915 97 Room Air 04/11 1411 98.4 100 16 120/60 95 Room Air Intake & Output 04/12 1600 04/12 0800 04/12 0000 Intake Total 480 440 Output Total 450 1050 Balance 30 -610 Intake, IV 200 Intake, Oral 480 240 Output, Stool 100 Output, Urine 350 1050 Patient 189 lb Weight Physical Exam General Appearance: No Acute Distress Neck: Supple Cardiovascular: tachycardia Lungs: decreased air entry bilaterally Abdomen: Soft, No Tenderness, suprapubic catheter and colostomy bag in place (.) Extremities: 1+ pitting edema bilaterally Current Medications: Current Medications Sig/Mey Start time Last Medication Dose Route Stop Time Status Admin Acetaminophen 1,000 MG Q6P PRN 04/11 1530 AC N/A 1 UNIT IV Albuterol Sulfate 3 ML TID 04/10 2200 AC 04/11 INH 1914 Aspirin 81 MG DAILY 04/11 1000 AC 04/12 PO 1134 Atorvastatin Calcium 10 MG 1700 04/11 1700 AC PO Baclofen 10 MG DAILY 04/10 1821 AC 04/12 PO 1134 Collagenase 1 HILARIA DAILY 04/11 1000 AC 04/11 TOP 1931 Cyanocobalamin 250 MCG DAILY 04/11 1000 AC 04/12 PO 1133 Haloperidol 1 MG ONCE ONE 04/12 0015 DC 04/12 IM 04/12 0016 0046 Ipratropium [place] 2.5 ML TID 04/10 2200 AC 04/11 INH 191 Levetiracetam 500 MG QAM 04/11 1000 AC 04/12 PO 1134 Melatonin 5 MG AT BEDTIME 04/10 2200 AC 04/10 PO 2227 Mirtazapine 15 MG AT BEDTIME 04/10 2200 AC 04/10 PO 2227 Omeprazole 20 MG DAILY AC 04/10 1820 AC 04/10 PO 1854 Rivaroxaban 20 MG DAILY 04/11 1000 AC 04/12 PO 1133 Sodium Chloride 1,000 ML Q6H 04/10 1600 AC 04/11 IV 1133 Sodium Hypochlorite 1 HILARIA DAILY PRN 04/11 1700 TOP Last 24 Hrs of Lab/Perfecto Results Last 24 Hrs of Labs/Mics: Laboratory Tests 04/11/17 1715: Urine Osmolality 365, Ur Random Creatinine 24.1, Ur Random Sodium 82, Ur Random Potassium 19.2, Fraction Sodium Excret 4.1 H Assessment/Plan Assessment: This is a 71-year-old man, [facility] resident, with diabetes, coronary artery disease, pulmonary embolism on Xarelto, with several recent hospitalizations for pneumonia, C. difficile, and upper GI bleed, with a gastric ulcer noted on endoscopy, paraplegia following spinal shock after surgery for an aortic aneurysm status post diverting colostomy and suprapubic cystostomy, chronic sacral and bilateral ischial decubiti/osteomyelitis treated with multiple courses of antibiotics and debridements recent hospitalization due to MRSA bacteremia secondary to acute and chronic osteomyelitis of sacrum and bilateral ischial status post multiple debridements and treated with Vancomycin and Ceftazidime with a PICC inserted in the right upper extremity. Problem list 1. Altered mental status. Differentials are acute on chronic sacral/ischial osteomyelitis in the setting of elevated WBC count and ESR vs UTI vs azotemia and ERICKA vs dehydration vs constipation 2. ? Acute and chronic osteomyelitis of sacral and ischial decubiti. Elevated WBC count and ESR. Received 5 weeks course of vancomycin and Ceftaz. He [facility] at [facility]. X-ray both heels did not show any evidence of osteomyelitis 3. UTI. In the setting of suprapubic catheter. Urine culture grew yeast. 4. Acute renal failure. Creatinine is 1.7. Could be drug-induced. FENa 4.1 5. Chronic anemia. Guaiac positive stools. H&H stable 6. Visual hallucinations and agitation PLAN * Monitor vitals closely * Monitor CBC daily * Monitor kidney functions daily * Avoid nephrotoxins and NSAIDs * Continue gentle IV fluids * Proper wound care * Continue off antibiotics * Avoid narcotics, benzos and anticholinergics * DVT prophylaxis * Full code Psych consult appreciated. Patient is not competent to make his own decisions. His sister Karlene aguilar POA. Would call and update her today. Problem List: 1. Altered mental status Pain Ratin Pain Location: none Pain Goal: Pain 4 or less Pain Plan: tylenol Tomorrow's Labs & Rationales: cbc, bep DVT/Prophylaxis: pharmacological
[2017-04-12 14:03] VITALS: BP 120/62
[2017-04-12 14:15] LABS: ABSOLUTE BASOPHIL COUNT 0 /CUMM (0.0-0.2); ABSOLUTE EOSINOPHIL COUNT 0.2 /CUMM (0.0-0.7); ABSOLUTE GRANULOCYTE CT 13.4 /CUMM (1.4-6.5); ABSOLUTE LYMPH COUNT 1.2 /CUMM (1.2-3.4); ABSOLUTE MONOCYTE COUNT 1.4 /CUMM (0.10-0.60); BASOPHIL % 0.2 % (0.0-2.0); EOSINOPHIL % 1.2 % (0-5); GRANULOCYTE % 82.6 % (42.2-75.2); HEMATOCRIT 23.5 % (42-52); MEAN CORPUSCULAR HGB 26.1 PG (27.0-31.0); MEAN CORPUSCULAR HGB CONC 32.2 G/DL (33.0-37.0); MEAN PLATELET VOLUME 6.9 FL (7.4-10.4); PLATELET COUNT 744 /CUMM (130-400); RBC DISTRIBUTION WIDTH 17.8 % (11.5-14.5); WHITE BLOOD CELL COUNT 16.2 /CUMM (4.8-10.8)
--- NOTE | 2017-04-12 15:12 | Cons- Gastroenterology ---
General Information and HPI Consulting Request Date of Consult: 04/12/17 Requested By: JEANNIE ANN MD Reason for Consult: Guaiac positive stool, history of PUD, anemia. Reports of maroon colored stool. Source of Information: patient, old records Exam Limitations: confusion, poor historian History of Present Illness: Mr. 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 He was found to have some worsening renal insufficiency for which he was admitted to the medical service and given IV fluids. He was pancultured and has been seen by infectious disease who recommended that he be followed off of antibiotics. His stool has been noted to be guaiac positive and there is report from nursing that he had maroon colored stool which has not persisted. The patient this afternoon is currently denying any significant GI complaints although he has been noted to be confused on house staff and nursing notes. He is tolerating a diet without abdominal pain and he has not had any nausea, vomiting or hematemesis since being admitted. The patient himself does not believe there is any blood in his colostomy bag. He has been hemodynamically stable since admission and has not required any transfusions. His anticoagulation has been continued and he is also been seen by the nephrology service and plastic surgery service for nonhealing skin ulcers. Allergies/Medications Allergies: Coded Allergies: ibuprofen (UNKNOWN 01/18/17) Home Med List: Acetaminophen (Q-Pap) 325 MG TABLET 2 TAB PO Q4H PRN PAIN/TEMP>/100 (Reported ) Acetaminophen (Acephen) 650 MG SUPP.RECT 1 SUPP WA Q4H PRN PAIN/TEMP>100 ( Reported) Aspirin (Ecotrin*) 81 MG TABLET.DR 1 TAB PO DAILY HEART/BLOOD (Reported) Atorvastatin Calcium (Lipitor) 10 MG TABLET 1 TAB PO QPM CHOLESTEROL ( Reported) Baclofen 10 MG TABLET 1 TAB PO DAILY spams (Reported) Ceftazidime 2 GRAM VIAL 2 GM IV Q8 ANTIBIOTIC, INFECTION (Reported) Cyanocobalamin (Vitamin B-12) (Vitamin B-12) 100 MCG TABLET 1 TAB PO DAILY SUPPLEMENT (Reported) Ergocalciferol (Vitamin D2) (Vitamin D2) 50,000 UNIT CAPSULE 1 CAP PO Q30D SUPPLEMENT (Reported) Furosemide (Lasix) 20 MG TABLET 1 TAB PO Q48 DIURETIC (Reported) Insulin Aspart, Recombinant (Novolog Flexpen) (Unknown Strength) INSULN.PEN ( Unknown Dose) SC BID DIABETES (Reported) Ipratropium/Albuterol Sulfate (Iprat-Albut 0.5-3(2.5) MG/3 Ml) 0.5 MG-3 MG (2.5 MG BASE)/3 ML AMPUL.NEB 1 VIAL INH TID RESPIRATORY (Reported) Levetiracetam (Keppra) 500 MG TABLET 1 TAB PO QAM seizures (Reported) Lisinopril (Zestril) 10 MG TABLET 1 TAB PO DAILY BP (Reported) Magnesium Hydroxide (Milk Of Magnesia) 400 MG/5 ML ORAL.SUSP 30 ML PO DAILY PRN CONSTIPATION (Reported) Melatonin 5 MG TABLET 1 TAB PO QHS SLEEP (Reported) Metformin HCl 500 MG TABLET 1 TAB PO BID DM (Reported) Mirtazapine 15 MG TABLET 0.5 TAB PO QHS UNKNOWN (Reported) Mometasone/Formoterol (Dulera 100 Mcg/5 Mcg Inhaler) 100 MCG-5 MCG/ACTUATION HFA.AER.AD 2 PUF INH BID RESPIRATORY (Reported) Multivitamin (Multi-Day Vitamins) 1 EACH TABLET 1 TAB PO DAILY SUPPLEMENT ( Reported) [place]-3/Dha/Epa/Fish Oil (Fish Oil 1,000 MG Softgel) 1,000 MG (120 MG-180 MG) CAPSULE 1 CAP PO DAILY SUPPLEMENT (Reported) Omeprazole 20 MG CAPSULE.DR 1 CAP PO DAILY GI (Reported) Oxycodone HCl 10 MG TABLET 1 TAB PO Q8H PAIN (Reported) Protein Supplement (Promod) 946 ML LIQUID 30 ML PO TID SUPPLEMENT (Reported) Psyllium Husk (Metamucil) 0.52 GRAM CAPSULE 1 CAP PO DAILY SUPPLEMENT ( Reported) Rivaroxaban (Xarelto) 20 MG TABLET 1 TAB PO DAILY Pumonary Embolism Saccharomyces Boulardii (Florastor) 250 MG CAPSULE 1 TAB PO QHS PROBIOTIC ( Reported) Tolterodine Tartrate (Detrol LA) 4 MG CAP.ER.24H 1 CAP PO BID BLADDER ( Reported) Tramadol HCl 50 MG TABLET 1 TAB PO BIDP PRN PAIN (Reported) Trazodone HCl 50 MG TABLET 0.5 TAB PO Q12H PRN UNKNOWN (Reported) Vancomycin/0.9 % Sod Chloride (Vancomycin 1 G/200ML-0.9% NaCl) 1 GRAM/200 ML FROZ.PIGGY 1,000 MG IV Q12 osteomyelitis Current Medications: Current Medications Sig/Mey Start time Last Medication Dose Route Stop Time Status Admin Acetaminophen 1,000 MG Q6P PRN 04/11 1530 AC N/A 1 UNIT IV Albuterol Sulfate 3 ML TID 04/10 2200 AC 04/11 INH 1915 Aspirin 81 MG DAILY 04/11 1000 AC 04/12 PO 1134 Atorvastatin Calcium 10 MG 1700 04/11 1700 AC PO Baclofen 10 MG DAILY 04/10 1821 AC 04/12 PO 1134 Collagenase 1 HILARIA DAILY 04/11 1000 AC 04/11 TOP 1931 Cyanocobalamin 250 MCG DAILY 04/11 1000 AC 04/12 PO 1133 Haloperidol 1 MG ONCE ONE 04/12 0015 DC 04/12 IM 04/12 0016 0046 Ipratropium [place] 2.5 ML TID 04/10 2200 AC 04/11 INH 1915 Levetiracetam 500 MG QAM 04/11 1000 AC 04/12 PO 1134 Melatonin 10 MG AT BEDTIME 04/12 2200 AC PO Melatonin 5 MG AT BEDTIME 04/10 2200 DC 04/10 PO 2227 Mirtazapine 7.5 MG AT BEDTIME 04/12 2200 AC PO Mirtazapine 15 MG AT BEDTIME 04/10 2200 DC 04/10 PO 2227 Omeprazole 20 MG DAILY AC 04/10 1820 AC 04/10 PO 1854 Rivaroxaban 20 MG DAILY 04/11 1000 AC 04/12 PO 1133 Sodium Chloride 1,000 ML Q6H 04/10 1600 AC 04/11 IV 1133 Sodium Hypochlorite 1 HILARIA DAILY PRN 04/11 1700 AC TOP Past History Travel History Traveled to [place] past 21 day No Medical History Neurological: PARAPLEGIA STATUS POST SPINAL SHOCK POSTOP EENT: NONE Cardiovascular: CAD, hypertension, hyperlipidemia, ABDOMINAL ANEURYSM Respiratory: asthma, pulmonary embolism, pneumonia Gastrointestinal: GERD, upper GI bleed, C. difficile Hepatic: NONE Renal: neurogenic bladder, UTI Musculoskeletal: decubitis ulcer (OSTEOMYELITIS) Psychiatric: anxiety, depression Endocrine: DIABETES TYPE 2 Blood Disorders: NONE Cancer(s): prostate cancer SLIP INJECTOR AND APPLICATOR/Reproductive: NONE Surgical History Surgical History: CABG, AAA repair x2 once 2002, and 2013 status post diverting colostomy status post suprapubic cystostomy Family History Relations & Conditions If Any: MOTHER FH: coronary artery disease FH: diabetes mellitus BROTHER FH: diabetes mellitus SISTER Psychosocial History Services at Home: Home Health Aide, Nursing Primary Language: Slovenian Smoking Status: Former Smoker ETOH Use: denies use Functional Ability ADLs Independent: eating. Needs Assist: dressing, toileting, bathing. Ambulation: non-ambulatory IADLs Needs Assist: shopping, housework, finances, food prep, telephone, transportation, medication admin. Review of Systems Review of Systems: A full 12 point review of systems is unobtainable secondary to the patient's confusion. Exam & Diagnostic Data Vital Signs and I&O Vital Signs Date Time Temp Pulse Resp B/P B/P Pulse O2 O2 Flow FiO2 Mean Ox Delivery Rate 04/12 1403 98.7 81 20 120/62 98 04/12 1210 96 Room Air Room Air 04/12 0000 Room Air 04/11 1915 97 Room Air Intake & Output 04/12 1600 04/12 0400 04/11 1600 04/11 0400 04/10 1600 04/10 0400 Intake Total 503 993 4771 690 Output Total 850 1050 725 650 400 Balance -370 -610 1045 40 -400 Intake, IV 200 1050 450 Intake, Oral 480 240 720 240 Output, Stool 100 200 Output, Urine 750 1050 525 650 400 Patient 189 lb 190 lb Weight Weight Reported by Patient Measurement Method Physical Exam General Appearance: well developed/nourished, no apparent distress, comfortable Head: atraumatic, normal appearance Eyes: Bilateral: normal appearance. Ears, Nose, Throat: normal pharynx, normal ENT inspection Neck: normal inspection, supple, full range of motion Respiratory: normal breath sounds, chest non-tender Cardiovascular: regular rate/rhythm Gastrointestinal: normal bowel sounds, soft, non-tender, colostomy c/d/i Rectal: deferred Back: normal inspection Extremities: skin ulcers bandaged and not examined further, lower extremities contracted Neurologic/Psych: no motor/sensory deficits, awake, alert, oriented to place, but not to time or person Skin: skin ulcers on legs bandaged Results Pertinent Lab Results: Laboratory Tests 04/12 04/11 1330 1715 Chemistry Sodium (137 - 145 mmol/L) 140 Potassium (3.5 - 5.1 mmol/L) 4.4 Chloride (98 - 107 mmol/L) 109 H Carbon Dioxide (22 - 30 mmol/L) 18 L Anion Gap (5 - 16) 13 BUN (9 - 20 mg/dL) 64 H Creatinine (0.7 - 1.2 mg/dL) 1.6 H Estimated GFR (>60 ml/min) 43 L BUN/Creatinine Ratio (7 - 25 %) 40.0 H Hematology CBC w Diff NO MAN DIFF REQ WBC (4.8 - 10.8 /CUMM) 16.2 H RBC (4.70 - 6.10 /CUMM) 2.90 L Hgb (14.0 - 18.0 G/DL) 7.6 L Hct (42 - 52 %) 23.5 L MCV (80.0 - 94.0 FL) 81.0 MCH (27.0 - 31.0 PG) 26.1 L RDW (11.5 - 14.5 %) 17.8 H Plt Count (130 - 400 /CUMM) 744 H MPV (7.4 - 10.4 FL) 6.9 L Gran % (42.2 - 75.2 %) 82.6 H Lymphocytes % (20.5 - 51.1 %) 7.1 L Monocytes % (1.7 - 9.3 %) 8.9 Eosinophils % (0 - 5 %) 1.2 Basophils % (0.0 - 2.0 %) 0.2 Absolute Granulocytes (1.4 - 6.5 /CUMM) 13.4 H Absolute Lymphocytes (1.2 - 3.4 /CUMM) 1.2 Absolute Monocytes (0.10 - 0.60 /CUMM) 1.4 H Absolute Eosinophils (0.0 - 0.7 /CUMM) 0.2 Absolute Basophils (0.0 - 0.2 /CUMM) 0 PUBS MCHC (33.0 - 37.0 G/DL) 32.2 L Urines Urine Osmolality (300 - 1000 MOSM/KG) 365 Ur Random Creatinine (mg/dL) 24.1 Ur Random Sodium (30 - 90 mmol/L) 82 Ur Random Potassium (mmol/L) 19.2 Fraction Sodium Excret (<1% %) 4.1 H 04/11 04/10 04/10 0925 1623 1343 Chemistry Sodium (137 - 145 mmol/L) 141 Potassium (3.5 - 5.1 mmol/L) 4.8 Chloride (98 - 107 mmol/L) 112 H Carbon Dioxide (22 - 30 mmol/L) 18 L Anion Gap (5 - 16) 12 BUN (9 - 20 mg/dL) 70 H Creatinine (0.7 - 1.2 mg/dL) 1.7 H Estimated GFR (>60 ml/min) 40 L BUN/Creatinine Ratio (7 - 25 %) 41.2 H Lactic Acid Cancelled Phosphorus (2.5 - 4.5 mg/dL) 5.6 H Magnesium (1.6 - 2.3 mg/dL) 2.1 Ammonia (9 - 30 umol/L) < 9 L Creatine Kinase (55 - 170 U/L) < 20 L Hematology CBC w Diff MAN DIFF ORDERED WBC (4.8 - 10.8 /CUMM) 15.1 H RBC (4.70 - 6.10 /CUMM) 3.16 L Hgb (14.0 - 18.0 G/DL) 8.1 L Hct (42 - 52 %) 25.7 L MCV (80.0 - 94.0 FL) 81.3 MCH (27.0 - 31.0 PG) 25.5 L RDW (11.5 - 14.5 %) 17.4 H Plt Count (130 - 400 /CUMM) 792 H MPV (7.4 - 10.4 FL) 6.9 L Gran % (42.2 - 75.2 %) 84.2 H Lymphocytes % (20.5 - 51.1 %) 4.8 L Monocytes % (1.7 - 9.3 %) 9.3 Eosinophils % (0 - 5 %) 1.3 Basophils % (0.0 - 2.0 %) 0.4 Absolute Granulocytes (1.4 - 6.5 /CUMM) 12.7 H Absolute Lymphocytes (1.2 - 3.4 /CUMM) 0.7 L Absolute Monocytes (0.10 - 0.60 /CUMM) 1.4 H Absolute Eosinophils (0.0 - 0.7 /CUMM) 0.2 Absolute Basophils (0.0 - 0.2 /CUMM) 0.1 Platelet Estimate (ADEQUATE) INCREASED Polychromasia 1+ Anisocytosis 1+ PUBS MCHC (33.0 - 37.0 G/DL) 31.4 L 04/10 04/10 1130 1110 Chemistry Sodium (137 - 145 mmol/L) 139 Potassium (3.5 - 5.1 mmol/L) 4.7 Chloride (98 - 107 mmol/L) 105 Carbon Dioxide (22 - 30 mmol/L) 19 L Anion Gap (5 - 16) 15 BUN (9 - 20 mg/dL) 73 H Creatinine (0.7 - 1.2 mg/dL) 2.0 H Estimated GFR (>60 ml/min) 33 L BUN/Creatinine Ratio (7 - 25 %) 36.5 H Glucose (65 - 99 mg/dL) 76 Lactic Acid (0.7 - 2.1 mmol/L) 0.9 Calcium (8.4 - 10.2 mg/dL) 9.6 Total Bilirubin (0.2 - 1.3 mg/dL) 0.4 AST (17 - 59 U/L) 12 L ALT (21 - 72 U/L) 20 L Alkaline Phosphatase (< 127 U/L) 152 H Troponin I (<0.11 ng/ml) < 0.01 Total Protein (6.3 - 8.2 g/dL) 7.5 Albumin (3.5 - 5.0 g/dL) 2.9 L Globulin (1.9 - 4.2 gm/dL) 4.6 H Albumin/Globulin Ratio (1.1 - 2.2 %) 0.6 L Hematology CBC w Diff MAN DIFF ORDERED WBC (4.8 - 10.8 /CUMM) 15.2 H RBC (4.70 - 6.10 /CUMM) 2.89 L Hgb (14.0 - 18.0 G/DL) 7.5 L Hct (42 - 52 %) 23.5 L MCV (80.0 - 94.0 FL) 81.2 MCH (27.0 - 31.0 PG) 25.9 L RDW (11.5 - 14.5 %) 17.9 H Plt Count (130 - 400 /CUMM) 781 H MPV (7.4 - 10.4 FL) 6.8 L Gran % (42.2 - 75.2 %) 84.9 H Lymphocytes % (20.5 - 51.1 %) 5.3 L Monocytes % (1.7 - 9.3 %) 7.8 Eosinophils % (0 - 5 %) 1.8 Basophils % (0.0 - 2.0 %) 0.2 Absolute Granulocytes (1.4 - 6.5 /CUMM) 12.9 H Absolute Lymphocytes (1.2 - 3.4 /CUMM) 0.8 L Absolute Monocytes (0.10 - 0.60 /CUMM) 1.2 H Absolute Eosinophils (0.0 - 0.7 /CUMM) 0.3 Absolute Basophils (0.0 - 0.2 /CUMM) 0 Platelet Estimate (ADEQUATE) INCREASED Hypochromic-Microcytic 2+ Anisocytosis 1+ PUBS MCHC (33.0 - 37.0 G/DL) 31.8 L ESR Westergren (0 - 10 MM) > 130 H Toxicology Random Vancomycin (ug/ml) 26.0 Urines Urine Color (YEL,AMB,STR) YEL Urine Clarity (CLEAR) HAZY H Urine pH (5.0 - 8.0) 6.0 Ur Specific [place] (1.001 - 1.035) 1.020 Urine Protein (NEG,<30 MG/DL) 30 H Urine Ketones (NEG) NEG Urine Nitrite (NEG) NEG Urine Bilirubin (NEG) NEG Urine Urobilinogen (0.1 - 1.0 EU/dl) 0.2 Ur Leukocyte Esterase (NEG) MOD H Ur Microscopic SEDIMENT EXAMINED Urine RBC (0 - 5 /HPF) 1-3 Urine WBC (0 - 2 /HPF) 15-25 H Urine Bacteria (NEG/NONE) FEW H Micro UA Comment Urine Hemoglobin (NEG) SMALL H Urine Glucose (N MG/DL) NEG Assessment/Plan Assessment/Recommendations: Assessment: Mr. Peterson is a 71-year-old male with multiple medical problems admitted for the status changes and renal insufficiency who has been noted to have occult blood in the stool and also had one episode of maroon-colored stool per nursing which has not persisted. His hemoglobin has been relatively stable since admission and he is also been hemodynamic stable since admission so I do not feel that he is having a hemodynamically significant GI bleed and therefore urgent endoscopic intervention is not necessary at this time. While it would be reasonable to repeat his endoscopy to ensure healing of his ulcer and rule out an underlying malignancy this can be pursued as an outpatient. It may also be reasonable to pursue a diagnostic colonoscopy for further evaluation of his occult blood in his stool, but this can also be pursued as an outpatient if at all considering his multiple other comorbidities. Of note, he did reportedly have maroon-colored stool, but as he has been hemodynamically stable, has not had a dramatic fall in his hemoglobin, and this hasn't persisted I would only plan to perform an inpatient colonoscopy if this recurs. Also, as it has not persisted I feel it is safe to continue him on his anticoagulation for now. His anemia is likely multifactorial and primarily related to anemia of chronic disease along with occult blood losses from his GI tract exacerbated by his anticoagulation Recommendations: 1. Advance diet as tolerated. 2. Continue oral omeprazole. 3. Follow daily CBCs and transfuse as needed to keep his hemoglobin greater than 7 or as per cardiology recommendations. 4. There are no GI contraindications to continuing his anticoagulation or his baby aspirin. 5. GI should be notified for any signs of further overt GI bleeding, but if this does not recur there are no plans for inpatient endoscopic evaluation at this time. 6. If the patient has diarrhea would check stool for C. difficile toxin. Considering his other comorbidities would ask that GI be reconsult for any recurrent bleeding or new GI issues. Problem List: 1. Anemia 2. Acute kidney injury 3. C. difficile colitis Copies To: RENAY MULLIGAN,SVITLANA Coleman; KELSEY MULLIGAN,SLIM Avalos; MARK MULLIGAN,ASHISH Reeder Consult Acknowledgment - Thank you for your consult request.
--- NOTE | 2017-04-12 16:02 | Event Note ---
Event Note Event Note: Patient is a 71 year old man with PMH of DM, CAD, PE on Xarelto, C. difficile, and upper GI bleed, with a gastric ulcer noted on endoscopy, paraplegia following spinal shock after surgery for an aortic aneurysm over 4 years prior to admission, with chronic sacral and bilateral ischial decubitis/osteomyelitis, status post diverting colostomy and suprapubic cystostomy 5 months prior to admission who was admitted to for altered mental status (agitation). Rapid response called at 3:30pm today as patient was found to be lethragic and not responding. On physical exam he was lethragic, but alerta ndoriented. Vitals: BP: 138/54, RR : 16, HR: 112, O2: 93%. Cardiovascular exam revealed normal S1, S2, no murmers, rubs or gallops appreciated. Respiratory exam revaled chest slearto ausculation b/l. Neuro exam, PERRLA, EOMI, tongue midline, no facial asymmetry noticed ( patient did not have dentures). Examination of exteremties revealed paraplegia, however patient is able to move his extermities. Will get stat head CT, troponin, EKG, BEP, CBS. Spoke with Dr. Welch, after calling a stroke alert given acute changes in his mentation, and concern for left sided facial droop. He does not believe that it is stroke,and believes its worsening metabolic encephalopathy. A head CT was done yesterday which did not show any acute stroke. Patient denied chest discomfort, shortness of breath, and offers no other complaints. Notified Dr. Saleh and he stated that if there is worsening of mental status, patient might need LP. F/U CT, labs, ekg.
--- NOTE | 2017-04-12 16:15 | CT SCAN REPORT ---
EXAMINATION: CT HEAD WITHOUT CONTRAST CLINICAL INFORMATION: Mental status change. COMPARISON: 04/11/2017 TECHNIQUE: Contiguous axial imaging was performed from the skull base to vertex without intravenous administration of contrast. DLP: 566 mGy-cm FINDINGS: Again noted are the findings of old infarcts in the left frontal lobe. Also, there is an area of decreased attenuation, suggestive of remote infarction, in the left occipital lobe. No signs of an acute major vascular territory infarction, hemorrhage, extra-axial fluid correction, mass or midline shift. There is mild atrophy of cerebral hemispheres with corresponding prominence of ventricles and sulci. No evidence of a dense cerebral artery sign or insular ribbon sign. The calvarium is intact. The mastoid air cells and middle ear cavities are well aerated. Again noted is opacification of right anterior ethmoid air cells. The visualized orbits, globes and temporomandibular joints are intact. IMPRESSION: 1. 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 2. No acute intracranial hemorrhage; no acute pathology compared to 04/11/2017. The test result was discussed with Dr. Ra Hendricks at 4:10 pm and it was ascertained that the content of the findings was understood at the time of the direct communication.
[2017-04-12 18:48] LABS: ABSOLUTE BASOPHIL COUNT 0 /CUMM (0.0-0.2); ABSOLUTE EOSINOPHIL COUNT 0.3 /CUMM (0.0-0.7); ABSOLUTE GRANULOCYTE CT 14.5 /CUMM (1.4-6.5); ABSOLUTE LYMPH COUNT 1.3 /CUMM (1.2-3.4); ABSOLUTE MONOCYTE COUNT 1.4 /CUMM (0.10-0.60); BASOPHIL % 0.2 % (0.0-2.0); EOSINOPHIL % 1.5 % (0-5); HEMATOCRIT 24.5 % (42-52); MEAN CORPUSCULAR HGB 25.9 PG (27.0-31.0); MEAN CORPUSCULAR HGB CONC 32.2 G/DL (33.0-37.0); MEAN CORPUSCULAR VOLUME 80.4 FL (80.0-94.0); MEAN PLATELET VOLUME 6.6 FL (7.4-10.4); PLATELET COUNT 787 /CUMM (130-400); RBC DISTRIBUTION WIDTH 17.7 % (11.5-14.5); RED BLOOD CELL CT 3.05 /CUMM (4.70-6.10); WHITE BLOOD CELL COUNT 17.4 /CUMM (4.8-10.8)
[2017-04-12 18:55] LABS: PT 21.6 SEC (9.4-12.5)
[2017-04-12 22:13] VITALS: BP 160/66
[2017-04-12 23:08] VITALS: BP 145/79
[2017-04-13 07:00] VITALS: BP 148/72
--- NOTE | 2017-04-13 09:58 | MRI REPORT ---
EXAMINATION: MR BRAIN WITHOUT CONTRAST CLINICAL INFORMATION: Question encephalitis. COMPARISON: Head CT 04/12/2017. TECHNIQUE: MRI of the brain without contrast was obtained using routine sequences. FINDINGS: There is no hydrocephalus, extra-axial surface collection, or herniation. There are chronic lacunar infarcts within the cerebellar hemispheres bilaterally and there are chronic cortical/subcortical infarcts within the anterior left frontal lobe and the occipital lobes bilaterally. Small focus of chronic hemosiderin staining within the anterior left frontal lobe. The major flow voids at the skull base are preserved. There is no acute infarct on diffusion-weighted imaging. There is no intracranial hemorrhage on the gradient recalled echo acquisition. The midline structures are normal. The cerebellar tonsils are normally positioned. The craniocervical junction is normal. Osseous marrow signal intensity is homogenous. The visualized soft tissues are unremarkable. Paranasal sinuses and mastoid air cells are clear. IMPRESSION: - No MRI evidence of encephalitis on this noncontrast MRI. There are no acute infarcts. 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
--- NOTE | 2017-04-13 10:48 | PN- Housestaff ---
[place] 04/13/17 1024: Subjective Follow-up For: Altered mentation and worsening restlessness Rapid response for increased/asymmetric weakness of UEt Complaints: no complaints Subjective: Briefly: Mr. Padilla has multiple comorbidities and multiple hospital admissions, most recently in February 2017 to [facility] for ischemia and MRSA osteomyelitismaintained, during which PICC line was placed and patient was discharged to SNF on IV vancomycin and IV ceftazidime. Patient was BIBA from extended care facility for altered mental status, confusion, increased restlessness and unsafe behaviour (pulling out his PICC line). of note, his PMH is significant for, diabetes, coronary artery disease, pulmonary embolism, maintained on Xarelto, with several recent hospitalizations for pneumonia, C. difficile, and upper GI bleed, with a gastric ulcer noted on endoscopy, paraplegia following spinal shock after surgery for an aortic aneurysm over 4 years prior to admission, with chronic sacral and bilateral ischial decubiti/osteomyelitis, status post diverting colostomy. Patients active problem during this admission: 1) encephalopathy: patient SOFA score was not convincingly high to be diagnosed as sepsis; He was recently treated with proper Abx and there aer no tangible sources of infection. So while screening for this occult source was ongoing, patient was kept off Abx. Xray of both feet to look for periosteal reaction was obtained and C.diff was checked, podiatry and plastic surgery were consulted for reevaluation of his sacral wounds and ischial wounds. CT scan of the head did not reveal any evidence of stroke and follow up MRI was also unimpressive. 2) Acute kidney injury likely multifactorial including prerenal factors, and possibly ATN or AIN. Was seen by packing room worker and initiated on gentel IV hydration w/ NlSL 75 ml /h 3)occult blood in the stool: GI consult recommended continuation of ASA and Xarelto, and po omeprazole, and check daily CBC Subjective: Afebrile w/o complaints. Comfortable and not in acute distress. [facility] staff told me that he refused his IV fluids but when I saked him, Mr. Peterson, adamantly denies aany refusal or resistant on his end. Objective: Vs were rviewed. VS are stable from last night. Nothing was done this am since he refused. Ph/Exam: GA: He is mildly lethargic but responsive in no acute distress. He is oriented to person/place HEENT: membranes are very dry Lungs are clear. Heart regular rhythm with a 2/6 systolic ejection murmur. Abdomen is distended, nontender with positive bowel sounds; colostomy in place; suprapubic catheter in place with no inflammation at the site: however the catheter is not draining any urine and the bladder is distended.Extremities bilateral heel decubiti, with drainage from the left, with no erythema; no cyanosis, clubbing or edema. Neuro: he smees a bit onfused and lethargic but he is using meaningful sentenses for communication and is following verbal command. paraplegia. assessment and plan 71-year-old man, halfway resident, w/ multiple comorbidities was admitted for increasing lethargy and confusion. 1) altered mental status: Differentials are acute on chronic sacral/ischial osteomyelitis in the setting of elevated WBC count and ESR vs UTI vs azotemia and ERICKA vs dehydration vs constipation. Ischemic damage to the brain, was seen by neurology who suggested focusing on ERICKA and other metabolic causes of his mild encephalopathy. 9head Ct and MRI were negaitive). * increasing WBC and ESR w/o radiologic evidence of osteo * Urine Cx grew yeast (doscarded) * blood Cx and Cdiff samples are still pending * Watch off Abx * ERICKA: continue gentle IV hydraion and recheck Cr and BuN on a daily basis Review of Systems Constitutional: Reports: see HPI. Objective Last 24 Hrs of Vital Signs/I&O Vital Signs Date Time Temp Pulse Resp B/P B/P Pulse O2 O2 Flow FiO2 Mean Ox Delivery Rate 04/13 0759 95 Room Air Room Air 04/13 0700 98.2 115 18 148/72 95 Room Air 04/13 0000 Room Air 04/12 2308 99.2 108 145/79 04/12 2213 99.7 116 20 160/66 92 Room Air 04/12 1904 95 Room Air 04/12 1403 98.7 81 20 120/62 98 04/12 1210 96 Room Air Room Air Intake & Output 04/13 1600 04/13 0800 04/13 0000 Intake Total 250 240 Output Total 100 150 Balance 150 90 Intake, Oral 250 240 Output, Urine 100 150 Physical Exam General Appearance: Alert, see above Current Medications: Current Medications Sig/Mey Start time Last Medication Dose Route Stop Time Status Admin Acetaminophen 1,000 MG .STK-MED ONE 04/12 221 DC IV 04/12 221 Acetaminophen 1,000 MG Q6P PRN 04/11 1530 AC 04/12 N/A 1 UNIT IV 2215 Albuterol Sulfate 3 ML TID 04/10 2200 AC 04/13 INH 0757 Aspirin 81 MG DAILY 04/11 1000 AC 04/13 PO 1000 Atorvastatin Calcium 10 MG 1700 04/11 1700 AC 04/12 PO 1710 Baclofen 10 MG DAILY 04/10 1821 AC 04/13 PO 1000 Collagenase 1 HIALRIA DAILY 04/11 1000 AC 04/13 TOP 1006 Cyanocobalamin 250 MCG DAILY 04/11 1000 AC 04/13 PO 1001 Ipratropium Means 2.5 ML TID 04/10 2200 AC 04/13 INH 0757 Levetiracetam 500 MG QAM 04/11 1000 AC 04/13 PO 1000 Melatonin 10 MG AT BEDTIME 04/12 2200 AC 04/12 PO 2137 Melatonin 5 MG AT BEDTIME 04/10 2200 DC 04/10 PO 2227 Mirtazapine 7.5 MG AT BEDTIME 04/12 2200 AC 04/12 PO 2137 Mirtazapine 15 MG AT BEDTIME 04/10 2200 DC 04/10 PO 2227 Omeprazole 20 MG DAILY AC 04/10 1820 AC 04/13 PO 0626 Rivaroxaban 20 MG DAILY 04/11 1000 AC 04/13 PO 1001 Sodium Chloride 1,000 ML Q6H 04/10 1600 AC 04/11 IV 1133 Sodium Hypochlorite 1 HILARIA DAILY PRN 04/11 1700 TOP Last 24 Hrs of Lab/Perfecto Results Last 24 Hrs of Labs/Mics: Laboratory Tests 04/12/17 1830: Troponin I < 0.01 04/12/17 1830: Anion Gap 12, Estimated GFR 43 L, BUN/Creatinine Ratio 40.6 H, PT 21.6 H, INR 2.07 H, CBC w Diff NO MAN DIFF REQ, RBC 3.05 L, MCV 80.4, MCH 25.9 L, RDW 17.7 H, MPV 6.6 L, Gran % 83.0 H, Lymphocytes % 7.5 L, Monocytes % 7.8, Eosinophils % 1.5, Basophils % 0.2, Absolute Granulocytes 14.5 H, Absolute Lymphocytes 1.3, Absolute Monocytes 1.4 H, Absolute Eosinophils 0.3, Absolute Basophils 0, PUBS MCHC 32.2 L 04/12/17 1330: Anion Gap 13, Estimated GFR 43 L, BUN/Creatinine Ratio 40.0 H, CBC w Diff NO MAN DIFF REQ, RBC 2.90 L, MCV 81.0, MCH 26.1 L, RDW 17.8 H, MPV 6.9 L, Gran % 82.6 H, Lymphocytes % 7.1 L, Monocytes % 8.9, Eosinophils % 1.2, Basophils % 0.2, Absolute Granulocytes 13.4 H, Absolute Lymphocytes 1.2, Absolute Monocytes 1.4 H, Absolute Eosinophils 0.2, Absolute Basophils 0, PUBS MCHC 32.2 L Assessment/Plan Assessment: see above Problem List: 1. Pulmonary embolism 2. Diabetes 3. Metabolic encephalopathy 4. Altered mental status 5. Acute kidney injury Pain Ratin Pain Location: none Pain Goal: Remain pain free Pain Plan: tylenol Tomorrow's Labs & Rationales: cbc bep Discharge Plan Discharge Disposition: STR/NH Stable for Discharge? No Anticipated Discharge (Day): unknown MEKA DAVENPORT MD 04/13/17 1254: Attending MD Review Statement Attending Statement Attending MD Statement: examined this patient, agreed w/resident/PA/MEASURER, reviewed EMR data (avail), amended to note Attending Assessment/Plan: Mr. Peterson is somnolent and difficult to awaken. He is afebrile. His physical exam remains unchanged. Laboratory values show increased WBC and decreased renal function which appears to be stable. At this time it is prudent to continue to observe the patient off antibiotics as per suggestion by Jeremiah Farmer MD. We should continue to monitor for any signs of recurrent infection and culture appropriately. We should continue to monitor the patient's mental status.
--- NOTE | 2017-04-13 11:22 | PN- Infect Dx ---
Subjective Subjective: Afebrile without complaints. Events from yesterday afternoon noted with episode of unresponsiveness, for which a CT of the head was repeated. He was agitated overnight and pulled out his IV, but he is less confused and less agitated this morning. Objective Last 24 Hrs of Vital Signs/I&O Vital Signs Date Time Temp Pulse Resp B/P B/P Pulse O2 O2 Flow FiO2 Mean Ox Delivery Rate 04/13 0759 95 Room Air Room Air 04/13 0700 98.2 115 18 148/72 95 Room Air 04/13 0000 Room Air 04/12 2308 99.2 108 145/79 04/12 2213 99.7 116 20 160/66 92 Room Air 04/12 1904 95 Room Air 04/12 1403 98.7 81 20 120/62 98 04/12 1210 96 Room Air Room Air Intake & Output 04/13 1600 04/13 0800 04/13 0000 Intake Total 250 240 Output Total 100 150 Balance 150 90 Intake, Oral 250 240 Output, Urine 100 150 Physical Exam Other Physical Findings: He is awake and alert, more appropriate and oriented, in no acute distress Lungs are clear Heart regular rhythm with a 2/6 systolic ejection murmur Abdomen is soft, with positive bowel sounds; minimal stool in the colostomy Extremities bilateral heel dressings intact Results Last 24 Hours of Lab Results: Laboratory Tests 04/12 04/12 1830 1830 Chemistry Sodium (137 - 145 mmol/L) 140 Potassium (3.5 - 5.1 mmol/L) 4.4 Chloride (98 - 107 mmol/L) 108 H Carbon Dioxide (22 - 30 mmol/L) 19 L Anion Gap (5 - 16) 12 BUN (9 - 20 mg/dL) 65 H Creatinine (0.7 - 1.2 mg/dL) 1.6 H Estimated GFR (>60 ml/min) 43 L BUN/Creatinine Ratio (7 - 25 %) 40.6 H Troponin I (<0.11 ng/ml) < 0.01 Coagulation PT (9.4 - 12.5 SEC) 21.6 H INR (0.90 - 1.17) 2.07 H Hematology CBC w Diff NO MAN DIFF REQ WBC (4.8 - 10.8 /CUMM) 17.4 H RBC (4.70 - 6.10 /CUMM) 3.05 L Hgb (14.0 - 18.0 G/DL) 7.9 L Hct (42 - 52 %) 24.5 L MCV (80.0 - 94.0 FL) 80.4 MCH (27.0 - 31.0 PG) 25.9 L RDW (11.5 - 14.5 %) 17.7 H Plt Count (130 - 400 /CUMM) 787 H MPV (7.4 - 10.4 FL) 6.6 L Gran % (42.2 - 75.2 %) 83.0 H Lymphocytes % (20.5 - 51.1 %) 7.5 L Monocytes % (1.7 - 9.3 %) 7.8 Eosinophils % (0 - 5 %) 1.5 Basophils % (0.0 - 2.0 %) 0.2 Absolute Granulocytes (1.4 - 6.5 /CUMM) 14.5 H Absolute Lymphocytes (1.2 - 3.4 /CUMM) 1.3 Absolute Monocytes (0.10 - 0.60 /CUMM) 1.4 H Absolute Eosinophils (0.0 - 0.7 /CUMM) 0.3 Absolute Basophils (0.0 - 0.2 /CUMM) 0 PUBS MCHC (33.0 - 37.0 G/DL) 32.2 L 04/12 1330 Chemistry Sodium (137 - 145 mmol/L) 140 Potassium (3.5 - 5.1 mmol/L) 4.4 Chloride (98 - 107 mmol/L) 109 H Carbon Dioxide (22 - 30 mmol/L) 18 L Anion Gap (5 - 16) 13 BUN (9 - 20 mg/dL) 64 H Creatinine (0.7 - 1.2 mg/dL) 1.6 H Estimated GFR (>60 ml/min) 43 L BUN/Creatinine Ratio (7 - 25 %) 40.0 H Hematology CBC w Diff NO MAN DIFF REQ WBC (4.8 - 10.8 /CUMM) 16.2 H RBC (4.70 - 6.10 /CUMM) 2.90 L Hgb (14.0 - 18.0 G/DL) 7.6 L Hct (42 - 52 %) 23.5 L MCV (80.0 - 94.0 FL) 81.0 MCH (27.0 - 31.0 PG) 26.1 L RDW (11.5 - 14.5 %) 17.8 H Plt Count (130 - 400 /CUMM) 744 H MPV (7.4 - 10.4 FL) 6.9 L Gran % (42.2 - 75.2 %) 82.6 H Lymphocytes % (20.5 - 51.1 %) 7.1 L Monocytes % (1.7 - 9.3 %) 8.9 Eosinophils % (0 - 5 %) 1.2 Basophils % (0.0 - 2.0 %) 0.2 Absolute Granulocytes (1.4 - 6.5 /CUMM) 13.4 H Absolute Lymphocytes (1.2 - 3.4 /CUMM) 1.2 Absolute Monocytes (0.10 - 0.60 /CUMM) 1.4 H Absolute Eosinophils (0.0 - 0.7 /CUMM) 0.2 Absolute Basophils (0.0 - 0.2 /CUMM) 0 PUBS MCHC (33.0 - 37.0 G/DL) 32.2 L Last 24 Hours of Perfecto Results: Blood cultures 2 April 10 remain negative Recent Imaging Studies: CT of the head April 12 no acute process MRI of the head April 13 no evidence of encephalitis and no acute infarcts Assessment/Plan Impression: Stable with improvement in his encephalopathy, suggesting a toxic metabolic process, possibly due to his medications, with a repeat CT and MRI of the head negative for any acute process. He remains afebrile but white blood cell count remains elevated, suggesting an infectious process, though his blood cultures remain negative. His urine culture is growing yeast, but suspect this represents colonization secondary to his suprapubic catheter. His renal insufficiency persists, though somewhat improved from several days ago, and is felt to be multifactorial. 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 Suggestion: 1. Repeat blood cultures 2 and urine culture if he develops a fever or white blood cell count continues to increase 2. Continue to follow off antibiotics
--- NOTE | 2017-04-13 13:08 | Discharge Summary ---
Visit Information Visit Dates Admission Date: 04/10/17 Discharge Date: 04/16/2017 Hospital Course Course Attending Physician: JEANNIE ANN MD Primary Care Physician: SLIM COLE MD Hospital Course: This is a 71-year-old man, [place] [facility] resident, with diabetes, coronary artery disease, pulmonary embolism, maintained on Xarelto, with several recent hospitalizations for pneumonia, C. difficile, and upper GI bleed, with a gastric ulcer noted on endoscopy, paraplegia following spinal shock after surgery for an aortic aneurysm over 4 years prior to admission, with chronic sacral and bilateral ischial decubiti/osteomyelitis, status post diverting colostomy and suprapubic cystostomy 5 months prior to admission, treated with multiple courses of antibiotics and debridements, most recently one month prior to admission after he was hospitalized with increasing shortness of breath, low-grade fever and confusion, found to have MRSA bacteremia felt to be secondary to acute, superimposed on chronic, osteomyelitis of the sacrum and bilateral ischial which were found on MRI, status post debridement of all of these areas 4 weeks prior to admission, with cultures positive for MRSA and Pseudomonas, treated with Vancomycin and Ceftazidime with a PICC inserted in the right upper extremity was admitted after he was sent to the emergency room because of confusion and agitation resulting in his pulling out his PICC. Vital Signs Date Time Temp Pulse Resp B/P B/P Pulse O2 O2 Flow FiO2 Mean Ox Delivery Rate 04/11 1915 97 Room Air 04/11 1411 98.4 100 16 120/60 95 Room Air 04/11 0915 93 Room Air 04/11 0800 95 Room Air 04/11 0651 98.3 110 16 112/56 95 Room Air 04/11 0000 Room Air 04/10 2233 98.5 99 16 120/62 94 Room Air 04/11/17 0925: Anion Gap 12, Estimated GFR 40 L, BUN/Creatinine Ratio 41.2 H, Phosphorus 5.6 H, Magnesium 2.1, Creatine Kinase < 20 L, CBC w Diff MAN DIFF ORDERED, RBC 3.16 L, MCV 81.3, MCH 25.5 L, RDW 17.4 H, MPV 6.9 L, Gran % 84.2 H, Lymphocytes % 4.8 L, Monocytes % 9.3, Eosinophils % 1.3, Basophils % 0.4, Absolute Granulocytes 12.7 H, Absolute Lymphocytes 0.7 L, Absolute Monocytes 1.4 H, Absolute Eosinophils 0.2, Absolute Basophils 0.1, Platelet Estimate INCREASED, Polychromasia 1+, Anisocytosis 1+, PUBS MCHC 31.4 L. Patient was admitted on general medicine floor for altered mental status and acute kidney injury. 1. Altered mental status He was seen by infectious disease specialist. Patient was afebrile but his WBC count was elevated. Possible sources were urinary tract infection given his pyuria but he had a suprapubic catheter so it was expected and thought to be as urinary colonization. Chronic sacral and ischial decubiti did not appear infected. Bilateral heel x-ray did not show any evidence of osteomyelitis. C. difficile was a possibility given his prolonged course of antibiotics. Ceftaz toxicity was also one of the possibilities. Patient received total of 5 weeks of vancomycin and Ceftaz. The plan was for 6-8 week course of antibiotics but he was kept off antibiotics per ID recommendations. Plastic surgery and podiatry consult was called. Dr. Flores is recommended strict offloading with Santyl and Xeroform daily. He was also seen by Dr. Slim Hauser who said that he is currently not a surgical candidate. According to him if patient recently lost 50 pounds and if patient mental status returns and adequate nutritional status can be achieved can consider right ischial flap in the future. If that flap wound heals properly then would consider moving on to larger wound. Dr. Guzman also saw the patient and made recommendations for a Cl[place]ron bed. Patient was followed off antibiotics. Initially patient was confused and refusing his medications, vital signs and glucose checks. He was also having visual hallucinations. Seen by neurologist, Dr. Dubois. According to him his change in mental status is altered because of metabolic encephalopathy. He recommended to treat underlying infection and metabolic abnormalities. He was also seen by psychiatrist and they recommended to continue mirtazapine and melatonin at his home dose. He advised to use antipsychotics with caution if patient becomes agitated because of borderline QTc elevation. Blood cultures Remained negative. On April 10 rapid response was called as patient was found more confused and lethargic. His vitals were stable. Head CT was done that did not show any acute intracranial pathology. Patient also had MRI of head but it did not show any evidence of encephalitis or acute infarcts. Later on he started having improvement in his mental status. He was alert, awake and oriented. 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 Patient was at his baseline upon discharge. 2. Acute kidney injury On admission patient had BUN/creatinine 73/2. Causes of acute kidney injury were drug-induced in the setting of vancomycin versus dehydration. He was also seen by vb developer. He was started on IV fluids. Lasix and lisinopril were held on admission because of acute kidney injury. His kidney functions improved to 1.4. 3. Anemia and Guaiac positive stools His stool was guaiac positive since admission. H&H on admission was 7.5/23.5. Patient was also seen by GI, Dr. Powell. Continued oral omeprazole. He recommended to transfuse as needed to keep his hemoglobin greater than 7. There were no GI contraindications to continuing his anticoagulation or his baby aspirin. On discharge H/H was 7.3/23.3. 4. Hperkalemia K was 5.2 and increased to 5.6. he was given PO kayexalate and repeat K was 5.4. Allergies: Coded Allergies: ibuprofen (UNKNOWN 01/18/17) Disposition Summary Disposition Principal Diagnosis: metabolin encephalopathy Additional Diagnosis: ERICKA Discharge Disposition: SNF Discharge Instructions General Discharge Information Code Status: Full Code Patient's Diet: regular diet Patient's Activity: wheelchair Follow-Up Instructions/Appts: 1. please followup with your PCP after discharge 2. Please follow him off antibiotics 3. Please repeat CBC, BEP and ESR in 2 days 4. Transfuse if Hb less than 7 5. Held lasix and lisinopril on discharge because of acute kidney injury. please restart if numbers are better on repeat blood work. 6. Clean leg wound with NS fb santyl and xeroform and dpd daily. Apply bed time moist gauze and kerlix to B/L heel wounds daily. Elevate heels on pillows with 100% offloading. 7. Followup with Dr. flores after discharge. Medications at Discharge Discharge Medications: Stop taking the following medications: Furosemide (Lasix) 20 MG TABLET ORAL EVERY 48 HOURS (Every 2 days) Lisinopril (Zestril) 10 MG TABLET ORAL DAILY Vancomycin/0.9 % Sod Chloride (Vancomycin 1 G/200ML-0.9% NaCl) 1 GRAM/200 ML FROZ.PIGGY INTRAVEN EVERY 12 HOURS Qty = 88 Ceftazidime (Ceftazidime) 2 GRAM VIAL INTRAVEN EVERY 8 HOURS Continue taking these medications: Aspirin (Ecotrin*) 81 MG TABLET. 1 Tablet ORAL DAILY Comments: LAST GIVEN 03/14/17 @ 1000 Oxycodone HCl (Oxycodone HCl) 10 MG TABLET 1 Tablet ORAL Q8H Comments: Last Taken: 02/11/17 Time: 1400 Ergocalciferol (Vitamin D2) (Vitamin D2) 50,000 UNIT CAPSULE 1 Capsule ORAL ONCE A MONTH Comments: NOT GIVEN Mirtazapine (Mirtazapine) 15 MG TABLET 0.5 Tablet ORAL TAKE AT BEDTIME Comments: NOT GIVEN Atorvastatin Calcium (Lipitor) 10 MG TABLET 1 Tablet ORAL Every night Comments: LAST GIVEN 03/13/17 @ 1700 Ipratropium/Albuterol Sulfate (Iprat-Albut 0.5-3(2.5) MG/3 Ml) 0.5 MG-3 MG (2.5 MG BASE)/3 ML AMPUL.NEB 1 VIAL Inhale through mouth THREE TIMES DAILY Comments: NOT GIVEN Levetiracetam (Keppra) 500 MG TABLET 1 Tablet ORAL Every Morning Comments: 03/14/17 @ 1000 Omeprazole (Omeprazole) 20 MG CAPSULE. 1 Capsule ORAL DAILY Comments: LAST GIVEN 03/14/17 @1000 Baclofen (Baclofen) 10 MG TABLET 1 Tablet ORAL DAILY Comments: LAST GIVEN 03/14/17 @ 1000 Multivitamin (Multi-Day Vitamins) 1 EACH TABLET 1 Tablet ORAL DAILY Comments: NOT GIVEN [place]-3/Dha/Epa/Fish Oil (Fish Oil 1,000 MG Softgel) 1,000 MG (120 MG-180 MG) CAPSULE 1 Capsule ORAL DAILY Comments: NOT GIVEN Saccharomyces Boulardii (Florastor) 250 MG CAPSULE 1 Tablet ORAL TAKE AT BEDTIME Comments: NOT GIVEN Metformin HCl (Metformin HCl) 500 MG TABLET 1 Tablet ORAL TWICE DAILY Comments: NOT GIVEN Mometasone/Formoterol (Dulera 100 Mcg/5 Mcg Inhaler) 100 MCG-5 MCG/ACTUATION HFA.AER.AD 2 Puff Inhale through mouth TWICE DAILY Comments: NOT GIVEN Cyanocobalamin (Vitamin B-12) (Vitamin B-12) 100 MCG TABLET 1 Tablet ORAL DAILY Comments: NOT GIVEN Psyllium Husk (Metamucil) 0.52 GRAM CAPSULE 1 Capsule ORAL DAILY Comments: NOT GIVEN Melatonin (Melatonin) 5 MG TABLET 1 Tablet ORAL TAKE AT BEDTIME Comments: LAST GIVEN 03/13/17 @ 2200 Acetaminophen (Q-Pap) 325 MG TABLET 2 Tablet ORAL Q4H as needed for PAIN/TEMP>/100 Comments: NOT GIVEN IN HOSPITAL Magnesium Hydroxide (Milk Of Magnesia) 400 MG/5 ML ORAL.SUSP 30 Milliliters ORAL DAILY as needed for CONSTIPATION Comments: NOT GIVEN Trazodone HCl (Trazodone HCl) 50 MG TABLET 0.5 Tablet ORAL Q12H as needed for UNKNOWN Comments: Last Taken: 01/26/17 Time: 22:16 Tolterodine Tartrate (Detrol LA) 4 MG CAP.ER.24H 1 Capsule ORAL TWICE DAILY Comments: NOT GIVEN Acetaminophen (Acephen) 650 MG SUPP.RECT 1 SUPPOSITORY RECTALLY Q4H as needed for PAIN/TEMP>100 Comments: NOT GIVEN Rivaroxaban (Xarelto) 20 MG TABLET 1 Tablet ORAL DAILY Qty = 30 Comments: LAST GIVEN 03/14/17 @ 1000 Protein Supplement (Promod) 946 ML LIQUID 30 Milliliters ORAL THREE TIMES DAILY Comments: NOT GIVEN Insulin Aspart, Recombinant (Novolog Flexpen) (Unknown Strength) INSULN.PEN Unknown Dose Inject into fatty tissue TWICE DAILY Comments: SLIDING SCALE Tramadol HCl (Tramadol HCl) 50 MG TABLET 1 Tablet ORAL 2 x Daily as needed as needed for PAIN Copies To: LIBRADO FLORES DPM; SETH MULLIGAN,[facility]
[2017-04-13 15:04] VITALS: BP 140/61
[2017-04-13 22:38] VITALS: BP 140/58
[2017-04-14 07:31] VITALS: BP 122/54
--- NOTE | 2017-04-14 08:15 | PN- Housestaff ---
MERON HILL 04/14/17 0814: Subjective Follow-up For: metabolic encephalopathy ERICKA Complaints: no complaints Subjective: Briefly: Mr. Padilla has multiple comorbidities and multiple hospital admissions, most recently in February 2017 to [facility] for ischemia and MRSA osteomyelitismaintained, during which PICC line was placed and patient was discharged to SNF on IV vancomycin and IV ceftazidime. Patient was BIBA from extended care facility for altered mental status, confusion, increased restlessness and unsafe behaviour (pulling out his PICC line). Subjective: Afebrile w/o complaints. Comfortable and not in acute distress. no issues. Patient is AO x3 but drowsy and falls sleep during conversation, opens his eyes when calling his name and follows verbal commands. Objective: Vs are stable from last night. Ph/Exam: GA: He is mildly lethargic but responsive in no acute distress. He is oriented to person/place HEENT: membranes are very dry Lungs are clear. Heart regular rhythm with a 2/6 systolic ejection murmur. Abdomen is distended, nontender with positive bowel sounds; colostomy in place; suprapubic catheter in place with no inflammation at the site: Extremities bilateral heel decubiti, with drainage from the left, with no erythema; no cyanosis, clubbing or edema. Neuro: he smees a bit onfused and lethargic but he is using meaningful sentenses for communication and is following verbal command. paraplegia. assessment and plan 71-year-old man, custodial resident, w/ multiple comorbidities was admitted for increasing lethargy and confusion. 1) altered mental status: Differentials are acute on chronic sacral/ischial osteomyelitis in the setting of elevated WBC count and ESR vs UTI vs azotemia and ERICKA vs dehydration vs constipation. Ischemic damage to the brain, was seen by neurology who suggested focusing on ERICKA and other metabolic causes of his mild encephalopathy. Update : improving 9head Ct and MRI were negaitive). * Urine Cx grew yeast (dicarded) * blood Cx and Cdiff samples are still pending * Watch off Abx * ERICKA: continue gentle IV hydraion; improving Review of Systems Constitutional: Denies: chills, diaphoresis, fever, malaise, weakness, unexplained weight loss. EENTM: Denies: blurred vision, double vision, visual changes, eye pain, eye drainage, eye tearing, icterus, ear discharge, ear pain, ear redness, hearing changes, nasal congestion, epistaxis, nasal pain, throat pain, throat swelling, mouth pain, tooth pain. Cardiovascular: Denies: chest pain, edema, orthopena, palpitations, peripheral edema, syncope. Respiratory: Denies: cough, hemoptysis, orthopnea, short of breath, sputum production, stridor, wheezing. Gastrointestinal: Denies: abdominal pain, bloating, constipation, diarrhea, distention, bowel incontinence, melena, nausea, bloody stool, changes in stool, vomiting, steatorrhea. Genitourinary: Denies: discharge, dysuria, frequency, hematuria, hesitation, nocturia, pain, urgency. Musculoskeletal: Denies: back pain, gout, joint pain, joint swelling, muscle pain, muscle stiffness, neck pain. Objective Last 24 Hrs of Vital Signs/I&O Vital Signs Date Time Temp Pulse Resp B/P B/P Pulse O2 O2 Flow FiO2 Mean Ox Delivery Rate 04/14 0821 95 Room Air Room Air 04/14 0731 97.9 102 20 122/54 97 04/13 2238 98.3 85 20 140/58 95 Room Air 04/13 1935 98 Nasal Room Air Cannula 04/13 1504 97.8 82 20 140/61 100 Room Air Intake & Output 04/14 1600 04/14 0800 04/14 0000 Intake Total 660 345 Output Total 330 450 Balance 330 -105 Intake, IV 600 225 Intake, Oral 60 120 Output, Stool 30 Output, Urine 300 450 Physical Exam General Appearance: Alert, Oriented X3, Cooperative Cardiovascular: Normal S1, Normal S2, No Murmurs Lungs: Clear to Auscultation, Normal Air Movement Abdomen: Soft, No Tenderness Neurological: alert and oriented, lethargic , arousible; follow verbal commands Current Medications: Current Medications Sig/Mey Start time Last Medication Dose Route Stop Time Status Admin Acetaminophen 1,000 MG Q6P PRN 04/11 1530 AC 04/12 N/A 1 UNIT IV 2215 Albuterol Sulfate 3 ML TID 04/10 2200 AC 04/14 INH 0817 Aspirin 81 MG DAILY 04/11 1000 AC 04/14 PO 0839 Atorvastatin Calcium 10 MG 1700 04/11 1700 AC 04/13 PO 1819 Baclofen 10 MG DAILY 04/10 1821 AC 04/14 PO 0840 Collagenase 1 HILARIA DAILY 04/11 1000 AC 04/14 TOP 0845 Cyanocobalamin 250 MCG DAILY 04/11 1000 AC 04/14 PO 0840 Ipratropium [place] 2.5 ML TID 04/10 2200 AC 04/14 INH 0817 Levetiracetam 500 MG QAM 04/11 1000 AC 04/14 PO 0841 Melatonin 10 MG AT BEDTIME 04/12 2200 AC 04/12 PO 2137 Mirtazapine 7.5 MG AT BEDTIME 04/12 2200 AC 04/12 PO 2137 Omeprazole 20 MG DAILY AC 04/10 1820 AC 04/14 PO 0548 Rivaroxaban 20 MG DAILY 04/11 1000 AC 04/14 PO 0839 Sodium Chloride 1,000 ML Q6H 04/10 1600 AC 04/14 IV 0846 Sodium Hypochlorite 1 HILARIA DAILY PRN 04/11 1700 AC TOP Last 24 Hrs of Lab/Perfecto Results Last 24 Hrs of Labs/Mics: Laboratory Tests 04/14/17 0620: Anion Gap 11, Estimated GFR 50 L, BUN/Creatinine Ratio 42.1 H, CBC w Diff NO MAN DIFF REQ, RBC 2.95 L, MCV 82.3, MCH 26.1 L, RDW 18.0 H, MPV 6.9 L, Gran % 76.5 H, Lymphocytes % 9.6 L, Monocytes % 10.8 H, Eosinophils % 2.8, Basophils % 0.3, Absolute Granulocytes 10.2 H, Absolute Lymphocytes 1.3, Absolute Monocytes 1.4 H, Absolute Eosinophils 0.4, Absolute Basophils 0, PUBS MCHC 31.7 L Lines/Diet/Fluids Fluids/Infusions: 75 ml /h nlsaline Assessment/Plan Assessment: see above Problem List: 1. Altered mental status Pain Ratin Pain Location: left arm Pain Goal: Remain pain free Pain Plan: 2 Tomorrow's Labs & Rationales: cbc bep DVT/Prophylaxis: mechanical, pharmacological Discharge Plan Stable for Discharge? No MEKA DAVENPORT MD 04/14/17 1508: Attending MD Review Statement Attending Statement Attending MD Statement: examined this patient, agreed w/resident/PA/[employer], reviewed EMR data (avail), amended to note Attending Assessment/Plan: Mr. Peterson is alert and oriented today. He has no complaints. Remains afebrile with stable vital signs and adequate oxygen saturation. His physical exam is stable. Blood cultures remain negative and his leukocytosis has decreased today. We will continue to observe off antibiotics and continue other maintenance medications.
[2017-04-14 08:26] LABS: ABSOLUTE BASOPHIL COUNT 0 /CUMM (0.0-0.2); ABSOLUTE EOSINOPHIL COUNT 0.4 /CUMM (0.0-0.7); ABSOLUTE GRANULOCYTE CT 10.2 /CUMM (1.4-6.5); ABSOLUTE LYMPH COUNT 1.3 /CUMM (1.2-3.4); ABSOLUTE MONOCYTE COUNT 1.4 /CUMM (0.10-0.60); BASOPHIL % 0.3 % (0.0-2.0); EOSINOPHIL % 2.8 % (0-5); GRANULOCYTE % 76.5 % (42.2-75.2); HEMATOCRIT 24.3 % (42-52); MEAN CORPUSCULAR HGB 26.1 PG (27.0-31.0); MEAN CORPUSCULAR HGB CONC 31.7 G/DL (33.0-37.0); MEAN CORPUSCULAR VOLUME 82.3 FL (80.0-94.0); MEAN PLATELET VOLUME 6.9 FL (7.4-10.4); PLATELET COUNT 763 /CUMM (130-400); RED BLOOD CELL CT 2.95 /CUMM (4.70-6.10); WHITE BLOOD CELL COUNT 13.4 /CUMM (4.8-10.8)
[2017-04-14 14:25] VITALS: BP 160/41
[2017-04-15 06:49] VITALS: BP 140/60
--- NOTE | 2017-04-15 09:18 | PN- Att Addend ---
Attending Addendum Attending Brief Note Patient is about his baseline answering all QUESTIONS appropriately. General Appearance: Alert and oriented Skin: Stage IV decubitus, bilateral heel ulcers Cardiovascular: Regular Rate, Normal S1, Normal S2, No Murmurs Lungs: Decreased air entry Abdomen: Colostomy bag in place Neurological: Tremors with outstretched hands, cerebellar signs normal Assessment Patient is now at his baseline mental status and encephalopathy has now resolved. Suspect toxic encephalopathy likely secondary to beta lactamase antibiotics. We'll defer for the need of antibiotics to ID. Patient had guaiac positive stools for which he was evaluated by GI who recommended conservative management. GI has approved for use of Coumadin and aspirin unless there is overt GI bleed. Plan Antibiotics as per ID daily labs Follow nephro and ID recommendations Hold all nephrotoxic drugs Continue other meds and Coumadin Current Medications Sig/Mey Start time Last Medication Dose Route Stop Time Status Admin Acetaminophen 1,000 MG Q6P PRN 04/11 1530 AC 04/14 N/A 1 UNIT IV 212 Albuterol Sulfate 3 ML TID 04/10 220 AC 04/14 INH 1952 Aspirin 81 MG DAILY 04/11 1000 AC 04/14 PO 0839 Atorvastatin Calcium 10 MG 1700 04/11 1700 AC 04/14 PO 1742 Baclofen 10 MG DAILY 04/10 1821 AC 04/14 PO 0840 Collagenase 1 HILARIA DAILY 04/11 1000 AC 04/14 TOP 0845 Cyanocobalamin 250 MCG DAILY 04/11 1000 AC 04/14 PO 0840 Ipratropium [place] 2.5 ML TID 04/10 2200 AC 04/14 INH 1952 Levetiracetam 500 MG QAM 04/11 1000 AC 04/14 PO 0841 Melatonin 10 MG AT BEDTIME 04/12 2200 AC 04/14 PO 2126 Mirtazapine 7.5 MG AT BEDTIME 04/12 2200 AC 04/14 PO 2126 Omeprazole 20 MG DAILY AC 04/10 1820 AC 04/15 PO 0542 Rivaroxaban 20 MG DAILY 04/11 1000 AC 04/14 PO 0839 Sodium Chloride 1,000 ML Q6H 04/10 1600 AC 04/14 IV 2015 Sodium Hypochlorite 1 HILARIA DAILY PRN 04/11 1700 AC TOP Laboratory Tests 04/15 0610 Chemistry Sodium (137 - 145 mmol/L) 143 Potassium (3.5 - 5.1 mmol/L) 5.2 H Chloride (98 - 107 mmol/L) 113 H Carbon Dioxide (22 - 30 mmol/L) 19 L Anion Gap (5 - 16) 11 BUN (9 - 20 mg/dL) 60 H Creatinine (0.7 - 1.2 mg/dL) 1.4 H Estimated GFR (>60 ml/min) 50 L BUN/Creatinine Ratio (7 - 25 %) 42.9 H Vital Signs Date Time Temp Pulse Resp B/P B/P Pulse O2 O2 Flow FiO2 Mean Ox Delivery Rate 04/15 0649 98.3 85 20 140/60 95 Room Air 04/14 1957 96 Room Air 04/14 1425 98.1 116 20 160/41 94 Room Air
--- NOTE | 2017-04-15 12:58 | PN- Infect Dx ---
Subjective Subjective: Afebrile without complaints Objective Last 24 Hrs of Vital Signs/I&O Vital Signs Date Time Temp Pulse Resp B/P B/P Pulse O2 O2 Flow FiO2 Mean Ox Delivery Rate 04/15 0956 96 Room Air Room Air 04/15 0649 98.3 85 20 140/60 95 Room Air 04/14 1957 96 Room Air 04/14 1425 98.1 116 20 160/41 94 Room Air Intake & Output 04/15 1600 04/15 0800 04/15 0000 Intake Total 600 600 Output Total 70 500 Balance 530 100 Intake, IV 600 600 Output, Stool 20 Output, Urine 50 500 Physical Exam Other Physical Findings: He is awake and alert, more oriented and appropriate, in no acute distress Lungs crackles at the left base Heart regular rhythm with a 1/6 systolic ejection murmur Abdomen is soft, nontender with positive bowel sounds Extremities bilateral heel dressings intact Results Last 24 Hours of Lab Results: Laboratory Tests 04/15 0610 Chemistry Sodium (137 - 145 mmol/L) 143 Potassium (3.5 - 5.1 mmol/L) 5.2 H Chloride (98 - 107 mmol/L) 113 H Carbon Dioxide (22 - 30 mmol/L) 19 L Anion Gap (5 - 16) 11 BUN (9 - 20 mg/dL) 60 H Creatinine (0.7 - 1.2 mg/dL) 1.4 H Estimated GFR (>60 ml/min) 50 L BUN/Creatinine Ratio (7 - 25 %) 42.9 H Last 24 Hours of Perfecto Results: No recent cultures Assessment/Plan Impression: Improvement in his mental status with the etiology of his presumed toxic metabolic encephalopathy still unclear, with CT and MRI of the head negative for any acute process. He remains afebrile with white blood cell count decreased yesterday off antibiotics with no obvious active infection. His renal insufficiency persists, felt to be multifactorial in etiology, though it has improved. 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 Suggestion: 1. Renal follow-up 2. Continue to follow off antibiotics
--- NOTE | 2017-04-15 14:32 | PN- Housestaff ---
Subjective Follow-up For: After mental status Subjective: This morning patient is alert, patent oriented. He is back to his baseline. Offers no complaints. Review of Systems Constitutional: Reports: see HPI. Objective Last 24 Hrs of Vital Signs/I&O Vital Signs Date Time Temp Pulse Resp B/P B/P Pulse O2 O2 Flow FiO2 Mean Ox Delivery Rate 04/15 0956 96 Room Air Room Air 04/15 0649 98.3 85 20 140/60 95 Room Air 04/14 1957 96 Room Air 04/14 1425 98.1 116 20 160/41 94 Room Air Intake & Output 04/15 1600 04/15 0800 04/15 0000 Intake Total 1700 600 600 Output Total 205 70 500 Balance 1495 530 100 Intake, IV 800 600 600 Intake, Oral 900 Output, Stool 5 20 Output, Urine 200 50 500 Physical Exam General Appearance: Alert, Oriented X3, Cooperative, No Acute Distress Neck: Supple Cardiovascular: tachy Lungs: decreased air entry bilaterally Abdomen: Normal Bowel Sounds, Soft, No Tenderness, colostomy bag and suprapubic catheter in place Neurological: paraplegic Extremities: trace edema bilaterally Current Medications: Current Medications Sig/Mey Start time Last Medication Dose Route Stop Time Status Admin Acetaminophen 1,000 MG Q6P PRN 04/11 1530 AC 04/15 N/A 1 UNIT IV 1043 Albuterol Sulfate 3 ML TID 04/10 2200 AC 04/15 INH 1340 Aspirin 81 MG DAILY 04/11 1000 AC 04/15 PO 1042 Atorvastatin Calcium 10 MG 1700 04/11 1700 AC 04/14 PO 1742 Baclofen 10 MG DAILY 04/10 1821 AC 04/15 PO 1042 Collagenase 1 HILARIA DAILY 04/11 1000 AC 04/15 TOP 1208 Cyanocobalamin 250 MCG DAILY 04/11 1000 AC 04/15 PO 1042 Ipratropium [place] 2.5 ML TID 04/10 2200 AC 04/15 INH 1341 Levetiracetam 500 MG QAM 04/11 1000 AC 04/15 PO 1042 Melatonin 10 MG AT BEDTIME 04/12 2200 AC 04/14 PO 2126 Mirtazapine 7.5 MG AT BEDTIME 04/12 2200 AC 04/14 PO 2126 Omeprazole 20 MG DAILY AC 04/10 1820 AC 04/15 PO 0542 Rivaroxaban 20 MG DAILY 04/11 1000 AC 04/15 PO 1042 Sodium Chloride 1,000 ML Q6H 04/10 1600 AC 04/15 IV 1043 Sodium Hypochlorite 1 HILARIA DAILY PRN 04/11 1700 [facility] Last 24 Hrs of Lab/Perfecto Results Last 24 Hrs of Labs/Mics: Laboratory Tests 04/15/17 0610: Anion Gap 11, Estimated GFR 50 L, BUN/Creatinine Ratio 42.9 H Assessment/Plan Assessment: Assessment: This is a 71-year-old man, snf resident, with diabetes, coronary artery disease, pulmonary embolism on Xarelto, with several recent hospitalizations for pneumonia, C. difficile, and upper GI bleed, with a gastric ulcer noted on endoscopy, paraplegia following spinal shock after surgery for an aortic aneurysm status post diverting colostomy and suprapubic cystostomy, chronic sacral and bilateral ischial decubiti/osteomyelitis treated with multiple courses of antibiotics and debridements recent hospitalization due to MRSA bacteremia secondary to acute and chronic osteomyelitis of sacrum and bilateral ischial status post multiple debridements and treated with Vancomycin and Ceftazidime with a PICC inserted in the right upper extremity. Problem list 1. Altered mental status. 2/2 Toxic metabolic encephalopathy 2. MRSA bacteremia and MRSA/Pseudomonas osteomyelitis of the sacrum and bilateral ischia. Received 5 weeks course of vancomycin and Ceftaz. 3. Urinary colonization. In the setting of suprapubic catheter. Urine culture grew yeast. 4. Acute renal failure. improving. drug induced. Creatinine is 1.4 today. Holding Lasix and lisinopril because of ERICKA 5. Chronic anemia. Guaiac positive stools. H&H stable PLAN * Monitor vitals closely * Monitor CBC daily * Call GI in case of overt GI bleed * Monitor kidney functions daily * Avoid nephrotoxins and NSAIDs * Encourage by mouth fluid intake * Proper wound care * Continue off antibiotics * Avoid narcotics, benzos and anticholinergics * DVT prophylaxis * Full code Problem List: 1. Metabolic encephalopathy Pain Ratin Pain Location: none Pain Goal: Pain 4 or less Pain Plan: Tylenol Tomorrow's Labs & Rationales: CBC BEP DVT/Prophylaxis: pharmacological
[2017-04-15 14:33] VITALS: BP 160/60
--- NOTE | 2017-04-15 14:43 | Patient Discharge Instructions ---
Discharge Instructions General Discharge Information You were seen/treated for: Altered mental status Special Instructions: 1. Please follow-up with your primary care provider after discharge 2. Please follow him off antibiotics 3. Please repeat CBC, BEP and ESR in 2 days 4. Transfuse if Hb less than 7 5. Held lasix and lisinopril on discharge because of acute kidney injury. please restart if numbers are better on repeat blood work. 6. Clean leg wound with NS fb santyl and xeroform and dpd daily. Apply bed time moist gauze and kerlix to B/L heel wounds daily. Elevate heels on pillows with 100% offloading. 7. Followup with Dr. strange after discharge. Diet Continue normal diet: Yes Activity Activity Self Limited: No Acute Coronary Syndrome Inclusion Criteria At DC or during hospital stay patient has or had the following: ACS DIAGNOSIS No Discharge Core Measures Meds if any: Prescribed or Continued at Discharge Meds if any: NOT Prescribed or Continued at Discharge Congestive Heart Failure Inclusion Criteria At DC or during hospital stay patient has or had the following: CHF DIAGNOSIS No Discharge Core Measures Meds if any: Prescribed or Continued at Discharge Meds if any: NOT Prescribed or Continued at Discharge Cerebrovascular accident Inclusion Criteria At DC or during hospital stay patient has or had the following: CVA/TIA Diagnosis No Discharge Core Measures Meds if any: Prescribed or Continued at Discharge Meds if any: NOT Prescribed or Continued at Discharge Venous thromboembolism Inclusion Criteria VTE Diagnosis No VTE Type NONE VTE Confirmed by (Test) NONE Discharge Core Measures - Per Current guidelines, there needs to be overlap - treatment for the first 5 days of Warfarin therapy. - If discharged on Warfarin prior to 5 days of - overlap therapy, the patient will need to be - assessed for post discharge needs including - *Post discharge parental anticoagulation - *Warfarin and/or parental anticoagulation education - *Follow up date to check INR post discharge At least 5 days overlap therapy as Inpatient No Meds if any: Prescribed or Continued at Discharge Note: Overlap Therapy is Warfarin and Anticoagulant Meds if any: NOT Prescribed or Continued at Discharge
[2017-04-15 22:18] VITALS: BP 158/60
[2017-04-16 07:26] VITALS: BP 148/62
[2017-04-16 08:43] LABS: ABSOLUTE BASOPHIL COUNT 0 /CUMM (0.0-0.2); MEAN CORPUSCULAR VOLUME 81.8 FL (80.0-94.0)
[2017-04-16 09:03] LABS: ABSOLUTE EOSINOPHIL COUNT 0.4 /CUMM (0.0-0.7); ABSOLUTE LYMPH COUNT 1.1 /CUMM (1.2-3.4); ABSOLUTE MONOCYTE COUNT 1.4 /CUMM (0.10-0.60); BASOPHIL % 0.2 % (0.0-2.0); EOSINOPHIL % 2.6 % (0-5); GRANULOCYTE % 81.3 % (42.2-75.2); MEAN CORPUSCULAR HGB 25.7 PG (27.0-31.0); MEAN CORPUSCULAR HGB CONC 31.4 G/DL (33.0-37.0); PLATELET COUNT 756 /CUMM (130-400); RBC DISTRIBUTION WIDTH 18.3 % (11.5-14.5); RED BLOOD CELL CT 2.85 /CUMM (4.70-6.10)
--- NOTE | 2017-04-16 09:17 | PN- Housestaff ---
Subjective Follow-up For: Metabolic encephalopathy Subjective: This morning patient is alert, awake and oriented. He complains of swelling of his both hands. Denies any tenderness Review of Systems Constitutional: Reports: see HPI. Objective Last 24 Hrs of Vital Signs/I&O Vital Signs Date Time Temp Pulse Resp B/P B/P Pulse O2 O2 Flow FiO2 Mean Ox Delivery Rate 04/16 1558 98.5 98 20 142/60 04/16 1357 98.5 98 20 142/60 98 Room Air 04/16 0803 95 Room Air Room Air 04/16 0800 96 Room Air 04/16 0726 98.7 101 18 148/62 91 Room Air 04/16 0000 Room Air 04/15 2218 98.1 85 20 158/60 96 Room Air 04/15 1900 92 Room Air Intake & Output 04/16 1600 04/16 0800 04/16 0000 Intake Total 910 300 800 Output Total 120 50 101 Balance 790 250 699 Intake, IV 10 Intake, Oral 900 300 800 Output, Stool 45 1 Output, Urine 75 50 100 Physical Exam General Appearance: Alert, Oriented X3, Cooperative, No Acute Distress Neck: Supple Lungs: Clear to Auscultation Abdomen: Normal Bowel Sounds, Soft, No Tenderness, PEG tube and colostomy bag in place Extremities: ankle edema B/L Current Medications: Current Medications Sig/Mey Start time Last Medication Dose Route Stop Time Status Admin Acetaminophen 1,000 MG Q6P PRN 04/11 1530 AC 04/15 N/A 1 UNIT IV 2319 Albuterol Sulfate 3 ML TID 04/10 2200 AC 04/16 INH 1317 Aspirin 81 MG DAILY 04/11 1000 AC 04/16 PO 0934 Atorvastatin Calcium 10 MG 1700 04/11 1700 AC 04/15 PO 1805 Baclofen 10 MG DAILY 04/10 1821 AC 04/16 PO 0934 Collagenase 1 HILARIA DAILY 04/11 1000 AC 04/16 TOP 0935 Cyanocobalamin 250 MCG DAILY 04/11 1000 AC 04/16 PO 0934 Ipratropium [place] 2.5 ML TID 04/10 2200 AC 04/16 INH 1317 Levetiracetam 500 MG QAM 04/11 1000 AC 04/16 PO 0935 Melatonin 10 MG AT BEDTIME 04/120 AC 04/15 PO 2115 Mirtazapine 7.5 MG AT BEDTIME 04/12 2200 AC 04/15 PO 2115 Omeprazole 20 MG DAILY AC 04/10 1820 AC 04/16 PO 0756 Oxybutynin Chloride 5 MG BID 04/15 2200 AC 04/16 PO 0934 Oxycodone HCl 5 MG ONCE ONE 04/16 1545 DC 04/16 PO 04/16 1546 1553 Rivaroxaban 20 MG DAILY 04/11 1000 AC 04/16 PO 0934 Sodium Hypochlorite 1 HILARIA DAILY PRN 04/11 1700 AC TOP Sodium Polystyrene 60 ML ONCE ONE 04/16 0930 DC 04/16 Sulfonate PO 04/16 0931 1124 Last 24 Hrs of Lab/Perfecto Results Last 24 Hrs of Labs/Mics: Laboratory Tests 04/16/17 1300: Anion Gap 9, Estimated GFR 50 L, BUN/Creatinine Ratio 43.6 H 04/16/17 0646: Anion Gap 11, Estimated GFR 50 L, BUN/Creatinine Ratio 42.9 H, CBC w Diff NO MAN DIFF REQ, RBC 2.85 L, MCV 81.8, MCH 25.7 L, RDW 18.3 H, MPV 7.0 L, Gran % 81.3 H, Lymphocytes % 7.1 L, Monocytes % 8.8, Eosinophils % 2.6, Basophils % 0.2, Absolute Granulocytes 13.0 H, Absolute Lymphocytes 1.1 L, Absolute Monocytes 1.4 H, Absolute Eosinophils 0.4, Absolute Basophils 0, PUBS MCHC 31.4 L Assessment/Plan Assessment: This is a 71-year-old man, residential resident, with diabetes, coronary artery disease, pulmonary embolism on Xarelto, with several recent hospitalizations for pneumonia, C. difficile, and upper GI bleed, with a gastric ulcer noted on endoscopy, paraplegia following spinal shock after surgery for an aortic aneurysm status post diverting colostomy and suprapubic cystostomy, chronic sacral and bilateral ischial decubiti/osteomyelitis treated with multiple courses of antibiotics and debridements recent hospitalization due to MRSA bacteremia secondary to acute and chronic osteomyelitis of sacrum and bilateral ischial status post multiple debridements and treated with Vancomycin and Ceftazidime with a PICC inserted in the right upper extremity. Problem list 1. Altered mental status. 2/2 Toxic metabolic encephalopathy 2. MRSA bacteremia and MRSA/Pseudomonas osteomyelitis of the sacrum and bilateral ischia. Received 5 weeks course of vancomycin and Ceftaz. off Abx for now. 3. Urinary colonization. In the setting of suprapubic catheter. Urine culture grew yeast. 4. Acute renal failure. improving. drug induced. Creatinine is 1.4 today. Holding Lasix and lisinopril because of ERICKA 5. Chronic anemia. Guaiac positive stools. H&H 7.3.3 PLAN Patient is stable for discharge today. 1. Please follow-up with your primary care provider after discharge 2. Please follow him off antibiotics 3. Please repeat CBC, BEP and ESR in 2 days 4. Transfuse if Hb less than 7 5. Held lasix and lisinopril on discharge because of acute kidney injury. please restart if numbers are better on repeat blood work. 6. Clean leg wound with NS fb santyl and xeroform and dpd daily. Apply bed time moist gauze and kerlix to B/L heel wounds daily. Elevate heels on pillows with 100% offloading. 7. Followup with Dr. strange after discharge. Problem List: 1. Metabolic encephalopathy Pain Ratin Pain Location: none Pain Goal: Pain 4 or less Pain Plan: tylenol Tomorrow's Labs & Rationales: none DVT/Prophylaxis: pharmacological
--- NOTE | 2017-04-16 09:25 | PN- Att Addend ---
Attending Addendum Attending Brief Note Patient is about his baseline answering all QUESTIONS appropriately. General Appearance: Alert and oriented Skin: Stage IV decubitus, bilateral heel ulcers Cardiovascular: Regular Rate, Normal S1, Normal S2, No Murmurs Lungs: Decreased air entry Abdomen: Colostomy bag in place Neurological: Tremors with outstretched hands, cerebellar signs normal Assessment Patient is now at his baseline mental status and encephalopathy has now resolved. Suspect toxic encephalopathy likely secondary to beta lactamase antibiotics. Patient had guaiac positive stools for which he was evaluated by GI who recommended conservative management. GI has approved for use of Coumadin and aspirin unless there is overt GI bleed. At this point he will be followed off antibiotics. We will repeat blood work in 3 days including ESR. Plan Off antibiotics Labs in 3 days Follow nephro and ID recommendations Hold Lasix upon discharge Continue other medications upon discharge including xarelto Stable for [facility] to pen[facility] Current Medications Sig/Mey Start time Last Medication Dose Route Stop Time Status Admin Acetaminophen 1,000 MG Q6P PRN 04/11 1530 AC 04/15 N/A 1 UNIT IV 2319 Albuterol Sulfate 3 ML TID 04/10 2200 AC 04/16 INH 0801 Aspirin 81 MG DAILY 04/11 1000 AC 04/15 PO 1042 Atorvastatin Calcium 10 MG 1700 04/11 1700 AC 04/15 PO 1805 Baclofen 10 MG DAILY 04/10 1821 AC 04/15 PO 1042 Collagenase 1 HILARIA DAILY 04/11 1000 AC 04/15 TOP 1208 Cyanocobalamin 250 MCG DAILY 04/11 1000 AC 04/15 PO 1042 Ipratropium Mona 2.5 ML TID 04/10 2200 AC 04/16 INH 0801 Levetiracetam 500 MG QAM 04/11 1000 AC 04/15 PO 1042 Melatonin 10 MG AT BEDTIME 04/12 2200 AC 04/15 PO 2115 Mirtazapine 7.5 MG AT BEDTIME 04/12 2200 AC 04/15 PO 2115 Omeprazole 20 MG DAILY AC 04/10 1820 AC 04/16 PO 0756 Oxybutynin Chloride 5 MG BID 04/15 2200 AC 04/15 PO 2115 Rivaroxaban 20 MG DAILY 04/11 1000 AC 04/15 PO 1042 Sodium Chloride 1,000 ML Q6H 04/10 1600 DC 04/15 IV 1043 Sodium Hypochlorite 1 HILARIA DAILY PRN 04/11 1700 AC TOP Sodium Polystyrene 60 ML ONCE ONE 04/16 0930 UNVr Sulfonate PO 04/16 0931 Laboratory Tests 04/16 0646 Chemistry Sodium (137 - 145 mmol/L) 140 Potassium (3.5 - 5.1 mmol/L) 5.6 H Chloride (98 - 107 mmol/L) 111 H Carbon Dioxide (22 - 30 mmol/L) 19 L Anion Gap (5 - 16) 11 BUN (9 - 20 mg/dL) 60 H Creatinine (0.7 - 1.2 mg/dL) 1.4 H Estimated GFR (>60 ml/min) 50 L BUN/Creatinine Ratio (7 - 25 %) 42.9 H Hematology CBC w Diff Pending WBC Pending RBC Pending Hgb Pending Hct Pending MCV Pending MCH Pending RDW Pending Plt Count Pending MPV Pending PUBS MCHC Pending Vital Signs Date Time Temp Pulse Resp B/P B/P Pulse O2 O2 Flow FiO2 Mean Ox Delivery Rate 04/16 0803 95 Room Air Room Air 04/16 0726 98.7 101 18 148/62 91 Room Air 04/16 0000 Room Air 04/15 2218 98.1 85 20 158/60 96 Room Air 04/15 1900 92 Room Air 04/15 1600 Room Air 04/15 1433 98.7 88 20 160/60 96 Room Air 04/15 0956 96 Room Air Room Air
[2017-04-16 09:31] LABS: HEMATOCRIT 23.3 % (42-52)
[2017-04-16 13:57] VITALS: BP 142/60
[2017-04-16 15:58] VITALS: BP 142/60
== END 2017-04-16 17:24 | DRG 682 ==
LOC: ERH 10:38 → ERHI 12:42 → 2NB 12:42 → ENRESERV 13:00 → ENTRNSPT 13:58 → EDTRNSPTSTS 14:36 → CMPTRNSPT 14:41 → 2NB 14:51
PROVIDERS: Internal Medicine; Physician Assistant Medical; Student in an Organized Health Care Education/Training Program; ADMIT Internal Medicine
DX: N17.9 Acute kidney failure, unspecified (principal); L89.224 Pressure ulcer of left hip, stage 4; G92 Toxic encephalopathy; L89.210 Pressure ulcer of right hip, unstageable; L89.154 Pressure ulcer of sacral region, stage 4; G82.20 Paraplegia, unspecified; E11.69 Type 2 diabetes mellitus with other specified complication; M86.8X8 Other osteomyelitis, other site; M46.28 Osteomyelitis of vertebra, sacral and sacrococcygeal region; D64.9 Anemia, unspecified; Z93.3 Colostomy status; L89.620 Pressure ulcer of left heel, unstageable; L89.610 Pressure ulcer of right heel, unstageable; Z86.711 Personal history of pulmonary embolism; Z79.01 Long term (current) use of anticoagulants; I25.10 Atherosclerotic heart disease of native coronary artery without angina pectoris; Z86.14 Personal history of Methicillin resistant Staphylococcus aureus infection; Z79.4 Long term (current) use of insulin
CPT/HCPCS: 2NSBP; 70551; 84133; 84300; 36415; 73060-RT; 73650-LT; 73650-RT; 74000; 81001; 82436; 82570; 87040; 87086; 87088; 93005; 93010; 94799; 96360; J0131; J1630; J3490